=== PATIENT | female | born 1935 | race Two or more races ===

== ENCOUNTER → 2020-05-21 13:34 | Outpatient (BNVA) | payer MEDICARE, SELFPAY | PROVIDERS: Visit Provider Obstetrics & Gynecology | DX: R93.89 Abnormal findings on diagnostic imaging of other specified body structures (principal) | CPT/HCPCS: 99203 ==

== ENCOUNTER → 2020-08-17 14:30 | Outpatient (BNVA) | payer MEDICARE, SELFPAY | PROVIDERS: PCP Family Medicine; Visit Provider Family Medicine | DX: I48.0 Paroxysmal atrial fibrillation (principal); I82.91 Chronic embolism and thrombosis of unspecified vein; Z79.01 Long term (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; Z51.81 Encounter for therapeutic drug level monitoring; Z13.9 Encounter for screening, unspecified | CPT/HCPCS: 85610; 99211 ==

== ENCOUNTER → 2020-09-07 13:57 | Outpatient (BNVA) | payer MEDICARE, SELFPAY | PROVIDERS: PCP Family Medicine; Visit Provider Internal Medicine | DX: I48.0 Paroxysmal atrial fibrillation (principal); Z51.81 Encounter for therapeutic drug level monitoring; Z79.01 Long term (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; Z01.419 Encounter for gynecological examination (general) (routine) without abnormal findings | CPT/HCPCS: 85610; 99211 ==

== ENCOUNTER 2020-09-29 12:48 | Outpatient (REF) | payer MEDICARE, SELFPAY ==
--- NOTE | ~2020-09-29 | MM_ITS ---
EXAMINATION: BONE DENSITOMETRY CLINICAL INDICATION: Menopausal state. COMPARISON: Baseline BD dated 12/11/2012. TECHNIQUE: Using a [employer] DXA System (software version: 13.1) manufactured by [employer], dual-energy x-ray absorptiometry was performed of the lumbar spine and left hip. The images are of good technical quality. Summary results are attached. FINDINGS: AP SPINE L1-L4: Current: BMD 0.989 g/cm2, Z-score -0.8, T-score -1.6, osteopenia, 6.7% decrease from baseline (<5% change is not significant). Baseline: BMD 1.060 g/cm2. LEFT FEMUR, NECK: Current: BMD 0.820 g/cm2, Z-score 0.1, T-score -1.6, osteopenia. Baseline: BMD 0.935 g/cm2. LEFT FEMUR, TOTAL: Current: BMD 0.930 g/cm2, Z-score 0.8, T-score -0.6, normal, 10.0% decrease from baseline (<5% change is not significant). Baseline: BMD 1.033 g/cm2. IDENTIFIED RISK FACTORS: Rheumatoid arthritis. Early menopause, secondary osteoporosis. HISTORY OF FRACTURE: Shoulder/humerus. MEDICATIONS: Calcium supplements or multivitamin, vitamin D. MM/XR DEXA axial skeleton IMPRESSION: 1. DIAGNOSIS: Osteopenia based on the lowest T-score value of -1.6 in the femoral neck and lumbar spine applying World Health Organization criteria. 2. 10-YEAR FRACTURE RISK PREDICTION, FRAX: Major osteoporotic fracture (clinical spine, forearm, hip or shoulder) 9.6%. Hip fracture 2.6%. 3. Treatment Recommendations: NOF guidelines recommend consideration for treatment in postmenopausal women and men age 50 and older presenting with the following: -A hip or vertebral (clinical or morphometric) fracture. -T-score less than or equal to -2.5 at the femoral neck or spine after appropriate evaluation to exclude secondary causes. -Low bone mass at the hip or spine and a 10-year fracture probability by FRAX of greater than or equal to 3% for hip fracture or greater than or equal to 20% for major osteoporotic fracture based on the [place] adapted WHO algorithm. 4. Other Recommendations: All treatment decisions require clinical judgment and consideration of individual patient factors, including patient preferences, comorbidities, previous drug use, risk factors not captured in the FRAX model (e.g. frailty, falls, vitamin D deficiency, increased bone turnover, interval significant decline in bone density) and possible under or overestimation of fracture risk by FRAX. Additional medical evaluation for secondary cause of low bone mineral density may be appropriate. FUTURE SCAN RECOMMENDATION: People with diagnosed cases of osteoporosis or at high risk for fracture should have regular bone mineral density tests. For patients eligible for Medicare, routine testing is allowed once every 2 years. The testing frequency can be increased to one year for patients who have rapidly progressing disease, those who are receiving or discontinuing medical therapy to restore bone mass, or have additional risk factors.
== END 2020-09-29 12:49 | disposition home or self-care (01) ==
LOC: HO.MAMMO 12:48
PROVIDERS: PCP Family Medicine; Visit Provider Obstetrics & Gynecology
DX: M81.8 Other osteoporosis without current pathological fracture (principal); M06.9 Rheumatoid arthritis, unspecified; Z78.0 Asymptomatic menopausal state
CPT/HCPCS: 77080

== ENCOUNTER → 2020-10-14 14:24 | Outpatient (BNVA) | payer MEDICARE, SELFPAY | PROVIDERS: Visit Provider Obstetrics & Gynecology | DX: Z13.89 Encounter for screening for other disorder (principal) | CPT/HCPCS: Q3014 ==

== ENCOUNTER → 2020-10-29 13:51 | Outpatient (BNVA) | payer MEDICARE, SELFPAY | PROVIDERS: PCP Family Medicine; Visit Provider Nurse Practitioner Gerontology | DX: E11.65 Type 2 diabetes mellitus with hyperglycemia (principal); E11.42 Type 2 diabetes mellitus with diabetic polyneuropathy; Z79.4 Long term (current) use of insulin; E78.00 Pure hypercholesterolemia, unspecified; I10 Essential (primary) hypertension; E66.01 Morbid (severe) obesity due to excess calories; Z68.41 Body mass index [BMI] 40.0-44.9, adult | CPT/HCPCS: 82947; 99212 ==

== ENCOUNTER → 2020-11-19 11:04 | Outpatient (BNVA) | payer MEDICARE, SELFPAY | PROVIDERS: PCP Family Medicine; Visit Provider Internal Medicine | DX: I48.0 Paroxysmal atrial fibrillation (principal); I82.91 Chronic embolism and thrombosis of unspecified vein; Z79.01 Long term (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; Z51.81 Encounter for therapeutic drug level monitoring | CPT/HCPCS: 85610; 99211 ==

== ENCOUNTER → 2020-11-26 11:16 | Outpatient (BNVA) | payer MEDICARE, SELFPAY | PROVIDERS: PCP Family Medicine; Visit Provider Internal Medicine | DX: I48.0 Paroxysmal atrial fibrillation (principal); I82.91 Chronic embolism and thrombosis of unspecified vein; Z51.81 Encounter for therapeutic drug level monitoring; Z79.01 Long term (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 | CPT/HCPCS: 85610; 99211 ==

== ENCOUNTER → 2020-11-30 11:02 | Outpatient (BNVA) | payer MEDICARE, SELFPAY | PROVIDERS: PCP Family Medicine; Visit Provider Internal Medicine | DX: I48.0 Paroxysmal atrial fibrillation (principal); I82.91 Chronic embolism and thrombosis of unspecified vein; Z51.81 Encounter for therapeutic drug level monitoring; Z79.01 Long term (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 | CPT/HCPCS: 85610; 99211 ==

== ENCOUNTER → 2020-12-17 13:19 | Outpatient (BNVA) | payer MEDICARE, SELFPAY | PROVIDERS: PCP Family Medicine; Visit Provider Nurse Practitioner Gerontology | DX: E11.65 Type 2 diabetes mellitus with hyperglycemia (principal); E11.42 Type 2 diabetes mellitus with diabetic polyneuropathy; E66.01 Morbid (severe) obesity due to excess calories; Z68.41 Body mass index [BMI] 40.0-44.9, adult; E78.00 Pure hypercholesterolemia, unspecified; I10 Essential (primary) hypertension; Z79.4 Long term (current) use of insulin; Z71.3 Dietary counseling and surveillance | CPT/HCPCS: 82947; 99212 ==

== ENCOUNTER → 2020-12-31 13:26 | Outpatient (BNVA) | payer MEDICARE, SELFPAY | PROVIDERS: PCP Family Medicine; Visit Provider Nurse Practitioner Gerontology | DX: E11.42 Type 2 diabetes mellitus with diabetic polyneuropathy (principal); E11.649 Type 2 diabetes mellitus with hypoglycemia without coma; E78.00 Pure hypercholesterolemia, unspecified; E66.01 Morbid (severe) obesity due to excess calories; I10 Essential (primary) hypertension; Z79.4 Long term (current) use of insulin; Z68.41 Body mass index [BMI] 40.0-44.9, adult | CPT/HCPCS: 82947; 99212 ==

== ENCOUNTER 2021-01-02 18:19 | Emergency (ER) | payer MEDICARE, SELFPAY ==
[2021-01-02 18:27] VITALS: BP 174/60; PULSE 81; RESP 16; TEMP 36.7; O2SAT 93; BMI 38.2
[2021-01-02 19:07] LABS: Appearance Urine CLEAR; Color Urine YELLOW; Glucose Urine UA NEG (NEG); Leukocyte Esterase Urine NEG (NEG); Nitrite Urine NEG (NEG); PH 5.5 (5.0-8.0); Urine Blood NEG (NEG); Urine Ketones 5 MG/DL (NEG); Urine Protein NEG (NEG-TRACE)
[2021-01-02] MEDS: Lidocaine HCl 1 % MPF 5 ML VIAL SUBCUT (19:58)
[2021-01-02] MEDS: cephALEXin 500 MG CAPSULE PO (19:58)
--- NOTE | 2021-01-02 20:32 | ED.EXTPRO ---
HPI - Extremity Problem General Chief complaint: Extremity Problem Stated complaint: toe infection Time Seen by Provider: 01/02/21 19:18 Source: patient Mode of arrival: ambulatory History of Present Illness HPI Narrative: 85-year-old female with a past medical history of anxiety, CAD, DVT, diabetes, HTN, HLD, hypothyroid, oa, proximal AFib, urinary incontinence, presenting to the ED complaining of right great toe pain x3 days with swelling and erythema. Denies drainage from area, fevers, chills, known injury/trauma or falls Dysuria also reported in triage MD Complaint: extremity pain Related Data Home Medications Medication Instructions Recorded Confirmed alcohol swabs pad TOPICAL QID 05/21/20 12/31/20 atorvastatin 20 mg tablet 20 mg PO BEDTIME 05/21/20 12/31/20 benzonatate 100 mg capsule 100 mg PO Q8H PRN 05/21/20 12/31/20 blood sugar diagnostic #10 ea 05/21/20 12/31/20 cholecalciferol (vitamin D3) 50 50 mcg PO QAM 05/21/20 12/31/20 mcg (2,000 unit) tablet clotrimazole 1 % topical cream applic TOPICAL 05/21/20 12/31/20 docusate sodium 100 mg capsule 100 mg PO BID 05/21/20 12/31/20 fluticasone 500 mcg-salmeterol 50 INHALATION 05/21/20 12/31/20 mcg/dose blistr powdr for inhalation fluticasone propionate 50 2 spray INTRANASAL DAILY 05/21/20 12/31/20 mcg/actuation nasal spray,suspension furosemide 40 mg tablet 40 mg PO QAM 05/21/20 12/31/20 ipratropium 0.5 mg-albuterol 3 mg ml INHALATION 05/21/20 12/31/20 (2.5 mg base)/3 mL nebulization soln lancets #100 ea 05/21/20 12/31/20 levothyroxine 100 mcg tablet 100 mcg PO DAILY 05/21/20 12/31/20 multivitamin with iron 1 tab PO QAM 05/21/20 12/31/20 omeprazole 20 mg capsule,delayed 20 mg PO BID 05/21/20 12/31/20 release pen needle, diabetic 32 gauge x #50 ea 05/21/20 12/31/20 polyethylene glycol 3350 17 g PO 05/21/20 12/31/20 gram/dose oral powder sertraline 50 mg tablet 50 mg PO DAILY 05/21/20 12/31/20 warfarin 3 mg tablet mg PO 05/21/20 12/31/20 white petrolatum 42 % topical TOPICAL 05/21/20 12/31/20 ointment acetaminophen 500 mg tablet 500 mg PO tab 12/17/20 12/31/20 metoprolol tartrate 25 mg tablet 25 mg PO tab 12/17/20 12/31/20 solifenacin 10 mg tablet 5 mg PO DAILY tab 12/17/20 12/31/20 Previous Rx's Medication Instructions Recorded dulaglutide 1.5 mg/0.5 mL 1.5 mg SUBCUT QWEEK #2 ml 11/10/20 subcutaneous pen injector metformin 500 mg tablet,extended 1,000 mg PO BID #120 tab 11/21/20 release 24 hr insulin glargine 100 unit/mL (3 35 unit SUBCUT DAILY #15 ml 11/23/20 mL) subcutaneous pen insulin lispro 100 unit/mL 8 unit SUBCUT TID #15 ml 12/31/20 subcutaneous pen cephalexin 500 mg PO QID 7 Days #28 cap 01/02/21 Allergies Allergy/AdvReac Type Severity Reaction Status Date / Time acetaminophen [Tylenol] Allergy Intermediate rash Verified 01/02/21 18:31 aspirin [Aspirin] Allergy Unknown UNKN Verified 01/02/21 18:31 oxycodone [From PERCOCET] Allergy Unknown PALPITATION Verified 01/02/21 18:31 S From Robitussin Cough & Cold Allergy Intermediate hives Uncoded 01/02/21 18:31 Robitussin Cold Cough+ Chest Allergy Intermediate hives Uncoded 01/02/21 18:31 SEAFOOD Allergy Intermediate hives Uncoded 01/02/21 18:31 shellfish Allergy Intermediate hives Uncoded 01/02/21 18:31 Review of Systems Review of Systems: Constitutional: No Weight loss, No Fever, No Chills Gastrointestinal: No Nausea, No Vomiting, No Diarrhea, No Constipation, No Abdominal pain Genitourinary: + Dysuria Musculoskeletal: + joint pain, No Myalgias, + Joint Swelling Skin: + Skin Lesions, No rash Neuro: No Weakness, No Numbness, No Paresthesias Yes all other systems are reviewed and are negative [facility] Past Medical History Attestation statement: The following information was validated with the patient. Medical History Abnormal taste in mouth Anxiety disorder Coronary artery disease Deep vein thrombosis Diabetes mellitus with hyperglycemia Essential hypertension Hearing loss History of cerebrovascular accident Hyperlipemia Hypothyroidism Obesity due to excess calories Osteoarthritis Osteopenia Paroxysmal A-fib Senile cataract of left eye Stenosis of carotid artery Type 2 diabetes mellitus with diabetic polyneuropathy Urinary incontinence Surgical History History of bilateral tubal ligation Family History Family History Father Heart disease CVD (cardiovascular disease) Mother Diabetes Social History Social History Household Members: None Alcohol intake: never Advance Directives: No Advance Directives Information Provided: No Sexual orientation: Straight/Heterosexual Gender identity: female Physical Exam Vital Signs: Vital Signs: Last Vital Signs Temp 98.1 F 01/02/21 18:27 Pulse 81 01/02/21 18:27 Resp 16 01/02/21 18:27 BP 174/60 H 01/02/21 18:27 Pulse Ox 93 01/02/21 18:27 Body Mass Index 38.2 Const: General: cooperative, healthy appearing and no acute distress Orientation/consciousness: patient oriented x3 Limitations: no limitations HENMT: Head: Yes normal to inspection Ears: hearing grossly normal bilaterally General nose exam: Normal external nose present Face and sinus: Yes normal facial exam Eyes: General: appearance normal, both eyes and all related structures EOM: EOMs intact bilaterally Neck: Neck: Yes normal visual inspection Resp: Effort & Inspection: normal respiratory effort Cardio: Rate: regular rate Peripheral pulses: dorsalis pedis present GI: Inspection: Yes normal to inspection Skin: Other: + paronychia noted to right great toe with fluctuance and erythema Rashes: no rashes Neuro: General: patient oriented x3 Gait exam (Neuro): Normal gait present Extrem: General: Yes normal to inspection Course Course Course Narrative: UA negative > worrisome signs and symptoms and strict return precautions discussed. Patient is to follow up with Podiatry/PCP Procedures Abscess I/D Site: foot Side (if applicable): right Local Anesthetic: lidocaine 1% Amount of anesthesia used (mL): 4 Technique: incised with blade MDM - Extremity (Nontraumatic) MDM Narrative Medical decision making narrative: 85-year-old female with a past medical history of anxiety, CAD, DVT, diabetes, HTN, HLD, hypothyroid, oa, proximal AFib, urinary incontinence, presenting to the ED complaining of right great toe pain x3 days with swelling and erythema. On exam vital signs stable, NAD, well appearing, paronychia noted to right great toe. Paronychia drain after digital block performed with pus drainage. Patient given 1st dose of p.o. Keflex in the ED. Lab Data Labs: Lab Results 01/02/21 Range/Units 18:56 Urine Color YELLOW Urine Appearance CLEAR Urine pH 5.5 (5.0-8.0) Ur Specific Edwards 1.020 (1.005-1.025) Urine Protein NEG (NEG-TRACE) MG/DL Urine Glucose (UA) NEG (NEG) MG/DL Urine Ketones 5 (NEG) MG/DL Urine Blood NEG (NEG) Urine Nitrite NEG (NEG) Ur Leukocyte Esterase NEG (NEG) Discharge Plan Discharge Clinical Impression: Acute paronychia Patient Disposition: Home, Self-Care Instructions: Paronychia (ED) Additional Instructions: your urine was not infected. You have a paronychia which was drained today in the ED. Keflex as antibiotic, take as prescribed. do warm soaks at home it will help drain the pus. If area begins to look worse, redness or swelling progresses/worsens or you fever return to the ED otherwise follow up with her doctor buchanan orina no estaba infectada. Tiene dorothy paroniquia que se dren? hoy en el servicio de urgencias. Keflex sagrario antibi?kain, scotty seg?n lo prescrito. Haz ba?os calientes en casa, esto ayudar? a drenar el pus. Si el ?lisa comienza a verse peor, el enrojecimiento o la hinchaz?n progresa / empeora o si tiene fiebre, vuelva al servicio de urgencias; de lo contrario, consulte con buchanan m?dico. Prescriptions: New cephalexin 500 mg capsule 500 mg PO QID 7 Days Qty: 28 RF: 0 No Action Trulicity 1.5 mg/0.5 mL pen injector 1.5 mg subcut QWEEK Qty: 2 RF: 1 metformin 500 mg tablet extended release 24 hr 1,000 mg PO BID Qty: 120 RF: 1 insulin glargine [Lantus Solostar U-100 Insulin] 100 unit/mL (3 mL) insulin pen 35 unit subcut DAILY Qty: 15 RF: 0 (DME) pen needle, diabetic 32 gauge x 5/32 needle See Rx Instructions ea .ROUTE .MEDSUPPLY Qty: 50 RF: 0 cholecalciferol (vitamin D3) 50 mcg (2,000 unit) tablet 50 mcg PO QAM RF: 0 multivitamin with iron Tablet 1 tab PO QAM RF: 0 sertraline 50 mg tablet 50 mg PO DAILY RF: 0 fluticasone propionate 50 mcg/actuation spray,suspension 2 spray intranasal DAILY RF: 0 alcohol swabs Pads, Medicated topical QID RF: 0 omeprazole 20 mg capsule,delayed release(DR/EC) 20 mg PO BID RF: 0 fluticasone propion-salmeterol 500-50 mcg/dose blister with device inhalation RF: 0 levothyroxine 100 mcg tablet 100 mcg PO DAILY RF: 0 warfarin 3 mg tablet PO RF: 0 furosemide 40 mg tablet 40 mg PO QAM RF: 0 (DME) lancets Misc See Rx Instructions ea .ROUTE .MEDSUPPLY Qty: 100 RF: 0 (DME) OneTouch Ultra Blue Test Strip Strip See Rx Instructions ea Not Applicable BID Qty: 10 RF: 0 white petrolatum 42 % ointment topical RF: 0 atorvastatin 20 mg tablet 20 mg PO BEDTIME RF: 0 polyethylene glycol 3350 17 gram/dose powder PO RF: 0 docusate sodium 100 mg capsule 100 mg PO BID RF: 0 clotrimazole 1 % cream topical RF: 0 ipratropium-albuterol 0.5 mg-3 mg(2.5 mg base)/3 mL solution for nebulization inhalation RF: 0 benzonatate 100 mg capsule 100 mg PO Q8H PRN (Reason: cough) RF: 0 metoprolol tartrate 25 mg tablet 25 mg PO RF: 0 solifenacin 10 mg tablet 5 mg PO DAILY RF: 0 acetaminophen 500 mg tablet 500 mg PO RF: 0 insulin lispro [Humalog KwikPen Insulin] 100 unit/mL insulin pen 8 unit subcut TID Qty: 15 RF: 2 Referrals: Valeri Lerner DO [Primary Care Provider] - 2 days
--- NOTE | 2021-01-02 20:59 | PC.NURSE ---
pt right large toe cleaned and drained by gilles morales covered with dsd.
== END 2021-01-02 20:37 | disposition home or self-care (01) ==
PROVIDERS: Emergency Provider Emergency Medicine; PCP Family Medicine
DX: L03.031 Cellulitis of right toe (principal); I25.10 Atherosclerotic heart disease of native coronary artery without angina pectoris; I10 Essential (primary) hypertension; Z79.899 Other long term (current) drug therapy
CPT/HCPCS: 10060; 81003; 99284

== ENCOUNTER → 2021-01-21 14:46 | Outpatient (BNVA) | payer MEDICARE, SELFPAY | PROVIDERS: PCP Family Medicine; Visit Provider Internal Medicine | DX: I48.0 Paroxysmal atrial fibrillation (principal); I82.91 Chronic embolism and thrombosis of unspecified vein; Z51.81 Encounter for therapeutic drug level monitoring; Z79.01 Long term (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 | CPT/HCPCS: 85610; 99211 ==

== ENCOUNTER 2021-04-16 10:35 | Outpatient (REF) | payer MEDICARE, SELFPAY ==
[2021-04-16 11:20] LABS: Prothrombin Time 68.5 SEC (9.9-13.0)
[2021-04-16 11:26] LABS: INTERNATIONAL NORM RATIO 5.8 (0.9-1.1)
== END 2021-04-16 10:36 | disposition home or self-care (01) ==
LOC: HO.LAB 10:35
PROVIDERS: PCP Family Medicine; Visit Provider Internal Medicine
DX: I48.0 Paroxysmal atrial fibrillation (principal); Z51.81 Encounter for therapeutic drug level monitoring; Z79.01 Long term (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
CPT/HCPCS: 36415; 85610; 99212

== ENCOUNTER → 2021-04-19 13:35 | Outpatient (BNVA) | payer MEDICARE, SELFPAY | PROVIDERS: PCP Family Medicine; Visit Provider Internal Medicine | DX: I48.0 Paroxysmal atrial fibrillation (principal); Z51.81 Encounter for therapeutic drug level monitoring; Z79.01 Long term (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 | CPT/HCPCS: 85610; 99211 ==

== ENCOUNTER → 2021-05-05 13:42 | Outpatient (BNVA) | payer MEDICARE, SELFPAY | PROVIDERS: PCP Family Medicine; Visit Provider Internal Medicine | DX: I48.0 Paroxysmal atrial fibrillation (principal); Z51.81 Encounter for therapeutic drug level monitoring; Z79.01 Long term (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 | CPT/HCPCS: 85610; 99211 ==

== ENCOUNTER → 2021-05-11 13:29 | Outpatient (BNVA) | payer MEDICARE, SELFPAY | PROVIDERS: PCP Family Medicine; Visit Provider Internal Medicine | DX: I48.0 Paroxysmal atrial fibrillation (principal); Z51.81 Encounter for therapeutic drug level monitoring; Z79.01 Long term (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 | CPT/HCPCS: 85610; 99211 ==

== ENCOUNTER → 2021-05-14 14:01 | Outpatient (BNVA) | payer MEDICARE, SELFPAY | PROVIDERS: PCP Family Medicine; Visit Provider Internal Medicine | DX: I48.0 Paroxysmal atrial fibrillation (principal); Z51.81 Encounter for therapeutic drug level monitoring; Z79.01 Long term (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 | CPT/HCPCS: 85610; 99211 ==

== ENCOUNTER 2021-05-19 08:20 | Outpatient (REF) | payer MEDICARE, SELFPAY ==
[2021-05-19 10:03] LABS: Alanine Aminotransferase 17 U/L (0-31); Alkaline Phosphatase 108 U/L (39-117); Anion Gap 14 (12-20); Aspartate Amino Transferase 21 U/L (5-31); Bilirubin Total 0.8 mg/dL (0.0-1.0); Blood Urea Nitrogen 14 mg/dL (9-16); Calcium 9.9 mg/dL (8.4-10.2); Carbon Dioxide 30 mmol/L (22-29); Chloride 102 mmol/L (96-108); Cholesterol 139 mg/dL; Estimated Glomerular Filt Rate > 60; Glucose Fasting 184 mg/dL (60-99); HDL Cholesterol 41 mg/dL; LDL Cholesterol Calculated 59 mg/dl; Potassium 4.2 mmol/L (3.3-5.1); Sodium 142 mmol/L (135-145); Total Protein 7.2 g/dL (6.5-8.0); Triglycerides 196 mg/dL
[2021-05-19 10:45] LABS: Creatinine Urine 164.19 mg/dL; Microalbum/Creatinine Ratio Ur 40.8 ug/mg cr
== END 2021-05-19 08:21 | disposition home or self-care (01) ==
LOC: HO.LAB 08:20
PROVIDERS: PCP Family Medicine; Visit Provider Nurse Practitioner Gerontology
DX: E11.42 Type 2 diabetes mellitus with diabetic polyneuropathy (principal)
CPT/HCPCS: 36415; 80053; 80061; 82043; 82306

== ENCOUNTER 2021-05-20 01:14 | Emergency (ER) | payer MEDICARE, SELFPAY ==
--- NOTE | ~2021-05-20 | CT_ITS ---
EXAMINATION: NONCONTRAST HEAD CT NONCONTRAST CERVICAL SPINE CT INDICATION INFORMATION: Status post fall COMPARISON: 07/17/2019 TECHNIQUE: Separate noncontrast CT examinations of the head and cervical spine were performed. Coronal head CT images and coronal and sagittal cervical spine images were created at the technologist workstation. DLP: 1264 mGy-cm DOSE LOWERING TECHNIQUES: This CT examination was performed using dose optimization techniques as appropriate, variously including the following: - Automated exposure control - Adjustment of mA and/or kV according to patient size (this includes techniques or standardized protocols for targeted exams were dose is matched to indication/reason for exam; i.e. extremities or head) - Use of iterative reconstruction technique FINDINGS: Head: There is no evidence of acute intracranial hemorrhage or territorial infarction. No abnormal mass-effect or midline shift is seen. Britton to white matter differentiation is well preserved. No extra-axial fluid collections are identified. The ventricles are normal in size. Mild volume loss is noted. No acute fracture seen. There is a prominent posterior scalp hematoma towards the vertex. The mastoid air cells and visualized portions of the paranasal sinuses are well-aerated. Cervical spine: There is anatomic alignment of the vertebral bodies and posterior elements. There is degenerative change at the atlantodens articulation. Vertebral body heights are maintained. Mild disc space narrowing and endplate osteophyte formation in the lower cervical spine. No evidence of acute fracture. No prevertebral soft tissue swelling. Visualized portions of the lung apices are unremarkable. The thyroid gland is unremarkable. CT/CT cervical spine wo con IMPRESSION: 1. Head: No acute intracranial findings. Prominent posterior scalp hematoma towards the vertex. 2. Cervical spine: No acute findings identified.
[2021-05-20 01:17] VITALS: BP 150/72; PULSE 87; RESP 18; TEMP 36.6; O2SAT 96; BMI 34.1
--- NOTE | 2021-05-20 02:14 | ED.FALL ---
HPI - Fall General Chief Complaint: Fall Stated Complaint: Head pain s/p fall Time Seen by Provider: 05/20/21 02:11 Source: patient and family Mode of arrival: ambulatory Limitations: no limitations History of Present Illness HPI Narrative: Patient was trying to get CT of the lost balance and fell backwards hitting her head to the ground came with significant hematoma to the back of the head no loss of consciousness and no seizure patient not on any anticoagulation no other injuries Related Data Home Medications Medication Instructions Recorded Confirmed alcohol swabs pad TOPICAL QID 05/21/20 05/14/21 atorvastatin 20 mg tablet 20 mg PO BEDTIME 05/21/20 05/14/21 blood sugar diagnostic #10 ea 05/21/20 05/14/21 cholecalciferol (vitamin D3) 50 50 mcg PO QAM 05/21/20 05/14/21 mcg (2,000 unit) tablet clotrimazole 1 % topical cream applic TOPICAL 05/21/20 05/14/21 docusate sodium 100 mg capsule 100 mg PO BID 05/21/20 05/14/21 fluticasone 500 mcg-salmeterol 50 INHALATION 05/21/20 05/14/21 mcg/dose blistr powdr for inhalation fluticasone propionate 50 2 spray INTRANASAL DAILY 05/21/20 05/14/21 mcg/actuation nasal spray,suspension furosemide 40 mg tablet 40 mg PO QAM 05/21/20 05/14/21 ipratropium 0.5 mg-albuterol 3 mg ml INHALATION 05/21/20 05/14/21 (2.5 mg base)/3 mL nebulization jb mercedes #100 ea 05/21/20 05/14/21 levothyroxine 100 mcg tablet 100 mcg PO DAILY 05/21/20 05/14/21 multivitamin with iron 1 tab PO QAM 05/21/20 05/14/21 omeprazole 20 mg capsule,delayed 20 mg PO BID 05/21/20 05/14/21 release pen needle, diabetic 32 gauge x #50 ea 05/21/20 05/14/21 polyethylene glycol 3350 17 g PO 05/21/20 05/14/21 gram/dose oral powder sertraline 50 mg tablet 50 mg PO DAILY 05/21/20 05/14/21 warfarin 3 mg tablet mg PO 05/21/20 05/14/21 white petrolatum 42 % topical TOPICAL 05/21/20 05/11/21 ointment acetaminophen 500 mg tablet 500 mg PO tab 12/17/20 05/14/21 metoprolol tartrate 25 mg tablet 25 mg PO tab 12/17/20 05/14/21 clonazepam 0.5 mg tablet 0.5 mg PO BEDTIME 04/19/21 05/14/21 solifenacin 5 mg tablet 5 mg PO QAM 04/19/21 05/14/21 nebulizers (Sidestream) #1 ea 05/14/21 05/14/21 Previous Rx's Medication Instructions Recorded dulaglutide 1.5 mg/0.5 mL 1.5 mg SUBCUT QWEEK #2 ml 03/28/21 subcutaneous pen injector (Trulicity) metformin 500 mg tablet,extended 1,000 mg PO BID #120 tab 05/04/21 release 24 hr insulin glargine 100 unit/mL (3 35 unit SUBCUT DAILY #15 ml 05/10/21 mL) subcutaneous pen (Lantus Solostar U-100 Insulin) insulin lispro 100 unit/mL 8 unit SUBCUT TID #15 ml 05/10/21 subcutaneous pen (Humalog KwikPen (U-100) Insulin) Allergies Allergy/AdvReac Type Severity Reaction Status Date / Time acetaminophen [Tylenol] Allergy Intermediate rash Verified 05/14/21 14:31 aspirin [Aspirin] Allergy Mild Gastrointestinal Verified 05/14/21 14:31 Upset oxycodone [From PERCOCET] Allergy Unknown PALPITATION Verified 05/14/21 14:31 S From Robitussin Cough & Cold Allergy Intermediate hives Uncoded 05/14/21 14:31 Robitussin Cold Cough+ Chest Allergy Intermediate hives Uncoded 05/14/21 14:31 SEAFOOD Allergy Intermediate hives Uncoded 05/14/21 14:31 shellfish Allergy Intermediate hives Uncoded 05/14/21 14:31 Review of Systems Review of Systems: Yes all other systems are reviewed and are negative PMFSH Past Medical History Medical History Abnormal taste in mouth Anxiety disorder Coronary artery disease Deep vein thrombosis Diabetes mellitus with hyperglycemia Essential hypertension Hearing loss History of cerebrovascular accident Hyperlipemia Hypothyroidism Obesity due to excess calories Osteoarthritis Osteopenia Paroxysmal A-fib Senile cataract of left eye Stenosis of carotid artery Type 2 diabetes mellitus with diabetic polyneuropathy Urinary incontinence Surgical History History of bilateral tubal ligation Family History Family History Father Heart disease CVD (cardiovascular disease) Mother Diabetes Social History Social History Household Members: None Alcohol intake: never Advance Directives: No Advance Directives Information Provided: No Sexual orientation: Straight/Heterosexual Gender identity: Female Physical Exam Vital Signs: Vital Signs: Last Vital Signs Temp 97.8 F 05/20/21 03:26 Pulse 85 05/20/21 03:26 Resp 16 05/20/21 03:26 BP 128/55 L 05/20/21 03:26 Pulse Ox 99 05/20/21 03:26 Body Mass Index 34.1 Appearance: Alert. Oriented X3. No acute distress. Eyes: PERRLA, No Nystagmus HEENT: Pharynx normal. Oral Mucosa moist significant hematoma at the occipital area tympanic membrane intact Neck: Normal inspection. Neck supple. No cervical spine tenderness CVS: Normal heart rate and rhythm. Pulses normal. Respiratory: No respiratory distress. Equal air entry bilateral, no wheezing/rales/rhonchi Abdomen: Soft and nontender. Bowel sounds are present, no mass palpable, no CVA tenderness Skin: Skin warm and dry. Normal skin color. Normal skin turgor. Extremities: No lower extremity edema. No calf tenderness Neuro: Oriented X 3. No motor deficit. No sensory deficit.No cerebellar signs , cranial nerves II-XII intact MDM - Fall MDM Narrative Medical decision making narrative: Patient status post fall head CT and C-spine CT is negative will discharge patient home Discharge Plan Discharge Clinical Impression: Head injury Qualifiers: Encounter type: initial encounter Qualified Code(s): S09.90XA - Unspecified injury of head, initial encounter Patient Disposition: Home, Self-Care Instructions: Head Injury (ED) Additional Instructions: Apply ice Tylenol for pain Care and cautions as advised Prescriptions: No Action Trulicity 1.5 mg/0.5 mL pen injector 1.5 mg subcut QWEEK Qty: 2 RF: 6 metformin 500 mg tablet extended release 24 hr 1,000 mg PO BID Qty: 120 RF: 0 Lantus Solostar U-100 Insulin 100 unit/mL (3 mL) insulin pen 35 unit subcut DAILY Qty: 15 RF: 5 insulin lispro [Humalog KwikPen Insulin] 100 unit/mL insulin pen 8 unit subcut TID Qty: 15 RF: 5 (DME) pen needle, diabetic 32 gauge x 5/32 needle See Rx Instructions ea .ROUTE .MEDSUPPLY Qty: 50 RF: 0 cholecalciferol (vitamin D3) 50 mcg (2,000 unit) tablet 50 mcg PO QAM RF: 0 multivitamin with iron Tablet 1 tab PO QAM RF: 0 sertraline 50 mg tablet 50 mg PO DAILY RF: 0 fluticasone propionate 50 mcg/actuation spray,suspension 2 spray intranasal DAILY RF: 0 alcohol swabs Pads, Medicated topical QID RF: 0 omeprazole 20 mg capsule,delayed release(DR/EC) 20 mg PO BID RF: 0 fluticasone propion-salmeterol 500-50 mcg/dose blister with device inhalation RF: 0 levothyroxine 100 mcg tablet 100 mcg PO DAILY RF: 0 warfarin 3 mg tablet PO RF: 0 furosemide 40 mg tablet 40 mg PO QAM RF: 0 (DME) lancets Misc See Rx Instructions ea .ROUTE .MEDSUPPLY Qty: 100 RF: 0 (DME) OneTouch Ultra Blue Test Strip Strip See Rx Instructions ea Not Applicable BID Qty: 10 RF: 0 white petrolatum 42 % ointment topical RF: 0 atorvastatin 20 mg tablet 20 mg PO BEDTIME RF: 0 polyethylene glycol 3350 17 gram/dose powder PO RF: 0 docusate sodium 100 mg capsule 100 mg PO BID RF: 0 clotrimazole 1 % cream topical RF: 0 ipratropium-albuterol 0.5 mg-3 mg(2.5 mg base)/3 mL solution for nebulization inhalation RF: 0 metoprolol tartrate 25 mg tablet 25 mg PO RF: 0 acetaminophen 500 mg tablet 500 mg PO RF: 0 clonazepam 0.5 mg tablet 0.5 mg PO BEDTIME RF: 0 solifenacin 5 mg tablet 5 mg PO QAM RF: 0 (DME) Sidestream Misc See Rx Instructions ea .ROUTE DIRECTED Qty: 1 RF: 0
[2021-05-20 03:26] VITALS: BP 128/55; PULSE 85; RESP 16; TEMP 36.6; O2SAT 99
--- NOTE | 2021-05-20 03:28 | PC.NURSE ---
PATIENT WAS INCONTINENT OF URINE ,PATIENT WAS CLEAN UP MY MYSELF AND SULEMA JUNG
== END 2021-05-20 04:22 | disposition home or self-care (01) ==
PROVIDERS: Emergency Provider Internal Medicine; PCP Family Medicine
DX: S09.90XA Unspecified injury of head, initial encounter (principal); G44.309 Post-traumatic headache, unspecified, not intractable; M54.2 Cervicalgia; W01.0XXA Fall on same level from slipping, tripping and stumbling without subsequent striking against object, initial encounter; Y93.9 Activity, unspecified; Y92.9 Unspecified place or not applicable; Y99.9 Unspecified external cause status; Z79.899 Other long term (current) drug therapy
CPT/HCPCS: 70450; 72125; 99284

== ENCOUNTER → 2021-05-24 11:22 | Outpatient (BNVA) | payer MEDICARE, SELFPAY | PROVIDERS: PCP Family Medicine; Visit Provider Internal Medicine | DX: I48.0 Paroxysmal atrial fibrillation (principal); Z51.81 Encounter for therapeutic drug level monitoring; Z79.01 Long term (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 | CPT/HCPCS: 85610; 99211 ==

== ENCOUNTER → 2021-06-03 13:23 | Outpatient (BNVA) | payer MEDICARE, SELFPAY | PROVIDERS: PCP Family Medicine; Visit Provider Internal Medicine | DX: I48.0 Paroxysmal atrial fibrillation (principal); Z51.81 Encounter for therapeutic drug level monitoring; Z79.01 Long term (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 | CPT/HCPCS: 85610; 99211 ==

== ENCOUNTER → 2021-06-15 13:56 | Outpatient (BNVA) | payer MEDICARE, SELFPAY | PROVIDERS: PCP Family Medicine; Visit Provider Internal Medicine | DX: I48.0 Paroxysmal atrial fibrillation (principal); Z51.81 Encounter for therapeutic drug level monitoring; Z79.01 Long term (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 | CPT/HCPCS: 85610; 99211 ==

== ENCOUNTER → 2021-06-30 14:29 | Outpatient (BNVA) | payer MEDICARE, SELFPAY | PROVIDERS: PCP Family Medicine; Visit Provider Internal Medicine | DX: I48.0 Paroxysmal atrial fibrillation (principal); Z51.81 Encounter for therapeutic drug level monitoring; Z79.01 Long term (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 | CPT/HCPCS: 85610; 99211 ==

== ENCOUNTER 2021-07-20 10:24 | Outpatient (REF) | payer MEDICARE, SELFPAY ==
--- NOTE | ~2021-07-20 | XR_ITS ---
EXAMINATION: XR THORACIC SPINE CLINICAL INFORMATION: Lower back injury. COMPARISON: CTA chest dated 05/30/2019. TECHNIQUE: Three views of the thoracic spine. FINDINGS: Mild exaggeration of the thoracic kyphosis, unchanged. No acute fracture or subluxation. No loss of vertebral body height. Multilevel loss of intervertebral disc height with anterior endplate osteophytes, not significantly changed. No new lytic or blastic osseous lesion. The visualized lungs are clear. XR/XR thoracic spine 3V IMPRESSION: No acute osseous abnormality. Multilevel degenerative disc disease and mild exaggeration of the thoracic kyphosis appear unchanged.
== END 2021-07-20 10:25 | disposition home or self-care (01) ==
LOC: HO.XRAY 10:24
PROVIDERS: PCP Family Medicine; Visit Provider Emergency Medicine
DX: S39.92XD Unspecified injury of lower back, subsequent encounter (principal)
CPT/HCPCS: 72072

== ENCOUNTER 2021-08-05 20:55 | Emergency (ER) | payer MEDICARE, SELFPAY ==
[2021-08-05 21:46] VITALS: BP 109/48; PULSE 78; RESP 16; TEMP 37; O2SAT 92; BMI 42.4
[2021-08-06 01:18] LABS: Hematocrit 46.2 % (37.0-47.0); Hemoglobin 14.8 g/dl (12.0-16.0); Mean Corpuscular Hemoglobin 31.2 pg (27.0-33.0); Mean Corpuscular Volume 97.3 fL (80.0-98.0); Mean Platelet Volume 11.2 fL (9.4-12.3); Platelet Count 145 X10*3/uL (160-400); Red Blood Count 4.75 X10*6/uL (4.20-5.50); Red Cell Distribution Width 13.2 % (11.0-16.0); White Blood Count 9.7 X10*3/uL (4.8-10.8)
[2021-08-06 01:21] LABS: Appearance Urine CLEAR; Color Urine YELLOW; Glucose Urine UA NEG (NEG); Leukocyte Esterase Urine NEG (NEG); Nitrite Urine NEG (NEG); PH 5.5 (5.0-8.0); Specific Gravity - Urine >= 1.030 (1.005-1.025); Urine Blood NEG (NEG); Urine Ketones 5 MG/DL (NEG); Urine Protein TRACE MG/DL (NEG-TRACE)
[2021-08-06 01:28] LABS: Bacteria Urine TRACE /LPF; RBC Urine 0-2 /HPF (0); Squamous Epithelial Cell Urine 1+ /LPF; WBC Urine 0-2 /HPF (0-4)
[2021-08-06 01:36] LABS: Alanine Aminotransferase 18 U/L (0-31); Albumin Level 4.2 g/dL (3.5-5.0); Alkaline Phosphatase 85 U/L (39-117); Anion Gap 14 (12-20); Aspartate Amino Transferase 24 U/L (5-31); Bilirubin Total 0.6 mg/dL (0.0-1.0); Blood Urea Nitrogen 25 mg/dL (9-16); Calcium 9.8 mg/dL (8.4-10.2); Carbon Dioxide 30 mmol/L (22-29); Chloride 98 mmol/L (96-108); Creatinine Clr Calc Pharmacy 40.4; Estimated Glomerular Filt Rate 44; Glucose Random 141 mg/dL (60-115); Lipase 4 U/L (8-78); Sodium 138 mmol/L (135-145); Total Protein 7.8 g/dL (6.5-8.0)
== END 2021-08-06 05:12 | disposition left against medical advice (07) ==
PROVIDERS: Emergency Provider Emergency Medicine
DX: R10.9 Unspecified abdominal pain (principal); E11.9 Type 2 diabetes mellitus without complications; I10 Essential (primary) hypertension; Z79.4 Long term (current) use of insulin
CPT/HCPCS: 36415; 80053; 81001; 83690; 85027; 99282; 99283

== ENCOUNTER → 2021-09-29 10:15 | Outpatient (BNVA) | payer MEDICARE, SELFPAY | PROVIDERS: PCP Family Medicine; Visit Provider Obstetrics & Gynecology | DX: Z01.419 Encounter for gynecological examination (general) (routine) without abnormal findings (principal); I48.0 Paroxysmal atrial fibrillation; Z51.81 Encounter for therapeutic drug level monitoring; Z79.01 Long term (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 | CPT/HCPCS: 85610; 99211 ==

== ENCOUNTER → 2021-11-29 10:30 | Outpatient (BNVA) | payer MEDICARE, SELFPAY | PROVIDERS: PCP Family Medicine; Visit Provider Internal Medicine | DX: I48.0 Paroxysmal atrial fibrillation (principal); Z79.01 Long term (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; Z51.81 Encounter for therapeutic drug level monitoring | CPT/HCPCS: 85610; 99211 ==

== ENCOUNTER → 2021-12-15 09:07 | Outpatient (BNVA) | payer MEDICARE, SELFPAY | PROVIDERS: PCP Family Medicine; Visit Provider Nurse Practitioner Gerontology | DX: E11.42 Type 2 diabetes mellitus with diabetic polyneuropathy (principal); E11.649 Type 2 diabetes mellitus with hypoglycemia without coma; E78.00 Pure hypercholesterolemia, unspecified; E66.01 Morbid (severe) obesity due to excess calories; I10 Essential (primary) hypertension; Z79.4 Long term (current) use of insulin; Z68.41 Body mass index [BMI] 40.0-44.9, adult; I48.0 Paroxysmal atrial fibrillation; Z51.81 Encounter for therapeutic drug level monitoring; Z79.01 Long term (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 | CPT/HCPCS: 82947; 83036; 85610; 99211; Q3014 ==

== ENCOUNTER 2021-12-21 17:04 | Emergency (ER) | payer OTHER, SELFPAY ==
--- NOTE | ~2021-12-21 | XR_ITS ---
EXAMINATION: XR KNEE, RIGHT CLINICAL INFORMATION: Status post fall COMPARISON: None TECHNIQUE: Four views of the right knee. FINDINGS: Tricompartmental degenerative changes are present with narrowing of all compartments. Chondrocalcinosis is seen with calcification in both menisci, lateral greater than medial. No fractures are seen. No significant joint effusion is detected. XR/XR knee RT 4V IMPRESSION: Tricompartmental degenerative changes and chondrocalcinosis. No acute fracture.
[2021-12-21 17:21] VITALS: BP 134/60; PULSE 99; RESP 18; TEMP 37.1; O2SAT 98; BMI 41.9
--- NOTE | 2021-12-21 17:41 | ED_ITS ---
HPI - Fall General Chief Complaint: Fall Stated Complaint: R KNEE PAIN S/P [facility] PER EMS Time Seen by Provider: 12/21/21 17:22 Source: patient Mode of arrival: EMS Limitations: no limitations History of Present Illness HPI Narrative: Patient 86 years old with history of osteoarthritis uses walker to ambulate was getting up from the bed without any help lost balance fell right leg went under the dresser complaining of pain in the right knee and right shoulder. Patient does have chronic pain in the both areas and does have arthritis also patient fell yesterday for same reason. No head injury no loss of consciousness also patient complaining of frequency when urinate and chronic cough Related Data Home Medications Medication Instructions Recorded Confirmed alcohol swabs pad TOPICAL QID 05/21/20 12/15/21 atorvastatin 20 mg tablet 20 mg PO BEDTIME 05/21/20 12/15/21 blood sugar diagnostic #10 ea 05/21/20 12/15/21 cholecalciferol (vitamin D3) 50 50 mcg PO QAM 05/21/20 12/15/21 mcg (2,000 unit) tablet clotrimazole 1 % topical cream applic TOPICAL 05/21/20 12/15/21 docusate sodium 100 mg capsule 100 mg PO BID 05/21/20 12/15/21 fluticasone 500 mcg-salmeterol 50 INHALATION 05/21/20 12/15/21 mcg/dose blistr powdr for inhalation fluticasone propionate 50 2 spray INTRANASAL DAILY 05/21/20 12/15/21 mcg/actuation nasal spray,suspension furosemide 40 mg tablet 40 mg PO QAM 05/21/20 12/15/21 ipratropium 0.5 mg-albuterol 3 mg ml INHALATION 05/21/20 12/15/21 (2.5 mg base)/3 mL nebulization soln lancets #100 ea 05/21/20 12/15/21 levothyroxine 100 mcg tablet 100 mcg PO DAILY 05/21/20 12/15/21 multivitamin with iron 1 tab PO QAM 05/21/20 12/15/21 omeprazole 20 mg capsule,delayed 20 mg PO BID 05/21/20 12/15/21 release pen needle, diabetic 32 gauge x #50 ea 05/21/20 12/15/21 polyethylene glycol 3350 17 g PO 05/21/20 12/15/21 gram/dose oral powder sertraline 50 mg tablet 50 mg PO DAILY 05/21/20 12/15/21 warfarin 3 mg tablet mg PO 05/21/20 12/15/21 white petrolatum 42 % topical TOPICAL 05/21/20 12/15/21 ointment acetaminophen 500 mg tablet 500 mg PO tab 12/17/20 12/15/21 metoprolol tartrate 25 mg tablet 25 mg PO tab 12/17/20 12/15/21 clonazepam 0.5 mg tablet 0.5 mg PO BEDTIME 04/19/21 12/15/21 solifenacin 5 mg tablet 5 mg PO QAM 04/19/21 12/15/21 nebulizers (Sidestream) #1 ea 05/14/21 12/15/21 multivitamin-iron sulfate 15 1 tab PO QAM 12/15/21 12/15/21 mg-folic acid 400 mcg tablet (Tab-A-Judith Multivitamin w-iron) Previous Rx's Medication Instructions Recorded dulaglutide 1.5 mg/0.5 mL 1.5 mg (0.5 mL) SUBCUT QWEEK #2 ml 10/10/21 subcutaneous pen injector (Trulicity) insulin glargine 100 unit/mL (3 25 unit (0.25 mL) SUBCUT DAILY #15 12/15/21 mL) subcutaneous pen (Lantus ml Solostar U-100 Insulin) metformin 500 mg tablet,extended 500 mg PO BID #60 tab 12/15/21 release 24 hr cefuroxime axetil 500 mg tablet 500 mg PO BID 7 Days #14 tab 12/21/21 tobramycin 0.3 % eye drops 2 drp OPHTHALMIC (EYE) Q4H #5 ml 12/21/21 tramadol 50 mg tablet 50 mg PO Q6-8H PRN #20 tab 12/21/21 Allergies Allergy/AdvReac Type Severity Reaction Status Date / Time acetaminophen [Tylenol] Allergy Intermediate rash Verified 12/15/21 10:08 aspirin [Aspirin] Allergy Mild Gastrointestinal Verified 12/15/21 10:08 Upset oxycodone [From PERCOCET] Allergy Unknown PALPITATION Verified 12/15/21 10:08 S From Robitussin Cough & Cold Allergy Intermediate hives Uncoded 12/15/21 10:08 Robitussin Cold Cough+ Chest Allergy Intermediate hives Uncoded 12/15/21 10:08 SEAFOOD Allergy Intermediate hives Uncoded 12/15/21 10:08 shellfish Allergy Intermediate hives Uncoded 12/15/21 10:08 Review of Systems Review of Systems: Yes all other systems are reviewed and are negative [facility] Past Medical History Medical History Abnormal taste in mouth Anxiety disorder Coronary artery disease Deep vein thrombosis Diabetes mellitus with hyperglycemia Essential hypertension Hearing loss History of cerebrovascular accident Hyperlipemia Hypothyroidism Obesity due to excess calories Osteoarthritis Osteopenia Paroxysmal A-fib Senile cataract of left eye Stenosis of carotid artery Type 2 diabetes mellitus with diabetic polyneuropathy Urinary incontinence Surgical History History of bilateral tubal ligation Family History Family History Father Heart disease CVD (cardiovascular disease) Mother Diabetes Social History Social History Household Members: None Alcohol intake: never Patient Tobacco Use Status: Never used Tobacco Advance Directives: No Advance Directives Information Provided: No Sexual orientation: Straight/Heterosexual Gender identity: Female Physical Exam Vital Signs: Vital Signs: Last Vital Signs Temp 98.1 F 12/21/21 21:39 Pulse 80 12/21/21 21:39 Resp 20 12/21/21 21:39 BP 124/55 L 12/21/21 21:39 Pulse Ox 95 12/21/21 21:39 BMI result Body Mass Index 41.9 Appearance: Alert. Oriented X3. No acute distress. Obese Eyes: PERRLA, No Nystagmus ENT: Pharynx normal. Oral Mucosa moist Neck: Normal inspection. Neck supple. No midline tenderness CVS: Normal heart rate and rhythm. Pulses normal. Respiratory: No respiratory distress. Equal air entry bilateral, no wheezing/rales/rhonchi Abdomen: Soft and nontender. Bowel sounds are present, no mass palpable, no CVA tenderness Skin: Skin warm and dry. Normal skin color. Normal skin turgor. Extremities: No lower extremity edema. No calf tenderness diffuse tenderness right knee with no effusion chronic arthritic change right shoulder diffuse pain no deformity of bony tenderness Neuro: Oriented X 3. No motor deficit. MDM - Fall MDM Narrative Medical decision making narrative: Patient status post mechanical fall with UTI discharge patient home on Ceftin and tramadol for pain patient does have history of osteoarthritis Medical Records Attestation: I reviewed the patient's medical records. Lab Data Attestation: I reviewed the patient's lab results. Labs: Lab Results 12/21/21 12/21/21 12/21/21 Range/Units 18:08 18:56 19:25 POC Glucose 280 H (60-115) mg/dL Urine Color DK YELLOW Urine Appearance CLOUDY Urine pH 6.0 (5.0-8.0) Ur Specific [place] 1.020 (1.005-1.025) Urine Protein 2+ H (NEG-TRACE) MG/DL Urine Glucose (UA) NEG (NEG) MG/DL Urine Ketones 5 (NEG) MG/DL Urine Blood 2+ H (NEG) Urine Nitrite POS H (NEG) Ur Leukocyte Esterase 2+ H (NEG) Urine RBC 1-4 (0) /HPF Urine WBC 15-29 H (0-4) /HPF Ur Squamous Epith Cells 3+ /LPF Urine Bacteria 4+ /LPF Urine Mucus 1+ /LPF COVID-19 (MUSHTAQ) Negative (Negative) COVID-19 Clin Com See Note Discharge Plan Discharge Clinical Impression: Fall, UTI (urinary tract infection) Patient Disposition: Home, Self-Care Instructions: Urinary Tract Infection in Women (ED), Fall Prevention for Older Adults (ED), Conjunctivitis (ED) Additional Instructions: Drink plenty of fluids Take antibiotic as prescribed Use walker for ambulation Care and cautions to avoid falls put the tobramycin eye drops 2 drops 4-6 hours in both eyes till get better Prescriptions: New cefuroxime axetil 500 mg tablet 500 mg PO BID 7 Days Qty: 14 0RF tramadol 50 mg tablet 50 mg PO Q6-8H PRN (Reason: pain) Qty: 20 0RF tobramycin 0.3 % drops 2 drp ophthalmic (eye) Q4H Qty: 5 0RF No Action Trulicity 1.5 mg/0.5 mL pen injector 1.5 mg subcut QWEEK Qty: 2 6RF (DME) pen needle, diabetic 32 gauge x 5/32 needle See Rx Instructions ea .ROUTE .MEDSUPPLY Qty: 50 0RF Rx Instructions: As directed cholecalciferol (vitamin D3) 50 mcg (2,000 unit) tablet 50 mcg PO QAM 0RF multivitamin with iron Tablet 1 tab PO QAM 0RF sertraline 50 mg tablet 50 mg PO DAILY 0RF fluticasone propionate 50 mcg/actuation spray,suspension 2 spray intranasal DAILY 0RF alcohol swabs Pads, Medicated topical QID 0RF omeprazole 20 mg capsule,delayed release(DR/EC) 20 mg PO BID 0RF fluticasone propion-salmeterol 500-50 mcg/dose blister with device inhalation 0RF levothyroxine 100 mcg tablet 100 mcg PO DAILY 0RF warfarin 3 mg tablet PO 0RF Protocol: Dose Management Condition: Monday (Week One) Dose/Route: 3 mg Instruction: 1 x 3 mg tablet Condition: Monday Dose/Route: 4.5 mg Instruction: 1.5 x 3 mg tablets Condition: Monday Dose/Route: 3 mg Instruction: 1 x 3 mg tablet Condition: Monday Dose/Route: 3 mg Instruction: 1 x 3 mg tablet Condition: Dose/Route: 3 mg Instruction: 1 x 3 mg tablet Condition: Monday Dose/Route: 3 mg Instruction: 1 x 3 mg tablet Condition: Monday Dose/Route: 3 mg Instruction: 1 x 3 mg tablet Condition: Monday (Week Two) Dose/Route: 3 mg Instruction: 1 x 3 mg tablet Condition: Monday Dose/Route: 4.5 mg Instruction: 1.5 x 3 mg tablets Condition: Monday Dose/Route: 3 mg Instruction: 1 x 3 mg tablet Condition: Monday Dose/Route: 3 mg Instruction: 1 x 3 mg tablet Condition: Dose/Route: 3 mg Instruction: 1 x 3 mg tablet Condition: Monday Dose/Route: 3 mg Instruction: 1 x 3 mg tablet Condition: Monday Dose/Route: 3 mg Instruction: 1 x 3 mg tablet Protocol Text: Adjustment Start Date: Monday12/15/21 INR Value: 2.6 INR Date: 12/15/21 Recheck Date: 01/05/22 furosemide 40 mg tablet 40 mg PO QAM 0RF (DME) lancets Misc See Rx Instructions ea .ROUTE .MEDSUPPLY Qty: 100 0RF Rx Instructions: As directed (DME) OneTouch Ultra Blue Test Strip Strip See Rx Instructions ea Not Applicable BID Qty: 10 0RF Rx Instructions: As directed white petrolatum 42 % ointment topical 0RF atorvastatin 20 mg tablet 20 mg PO BEDTIME 0RF polyethylene glycol 3350 17 gram/dose powder PO 0RF docusate sodium 100 mg capsule 100 mg PO BID 0RF clotrimazole 1 % cream topical 0RF ipratropium-albuterol 0.5 mg-3 mg(2.5 mg base)/3 mL solution for nebulization inhalation 0RF metoprolol tartrate 25 mg tablet 25 mg PO 0RF acetaminophen 500 mg tablet 500 mg PO 0RF Tab-A-Judith Multivitamin w-iron 15 mg iron- 400 mcg tablet 1 tab PO QAM 0RF Lantus Solostar U-100 Insulin 100 unit/mL (3 mL) insulin pen 25 unit subcut DAILY Qty: 15 5RF metformin 500 mg tablet extended release 24 hr 500 mg PO BID Qty: 60 6RF clonazepam 0.5 mg tablet 0.5 mg PO BEDTIME 0RF solifenacin 5 mg tablet 5 mg PO QAM 0RF (DME) Sidestream Misc See Rx Instructions ea .ROUTE DIRECTED Qty: 1 0RF Rx Instructions: As directed Interventions: ED Discharge Assessment Last Done: 12/21/21 21:45 Discharge Date/Time: 12/21/21 22:23
[2021-12-21 18:28] LABS: COVID-19 Test Negative (Negative)
[2021-12-21 19:00] LABS: Glucose, Whole Blood 280 mg/dL (60-115)
[2021-12-21 19:32] LABS: Appearance Urine CLOUDY; Color Urine DK YELLOW; Glucose Urine UA NEG (NEG); Leukocyte Esterase Urine 2+ (NEG); Nitrite Urine POS (NEG); UACC Culture Trigger YES; Urine Blood 2+ (NEG); Urine Ketones 5 MG/DL (NEG); Urine Protein 2+ MG/DL (NEG-TRACE)
[2021-12-21 19:43] VITALS: BP 142/54; PULSE 93; RESP 18; O2SAT 89
[2021-12-21 19:46] VITALS: O2SAT 96
[2021-12-21 19:47] LABS: Bacteria Urine 4+ /LPF; Mucus Urine 1+ /LPF; Squamous Epithelial Cell Urine 3+ /LPF
[2021-12-21] MEDS: Tobramycin Sulfate 0.3% Sol Op 5 ML BTL 2 DROP EYE-BOTH (19:48)
--- NOTE | 2021-12-21 21:09 | MHC.CM.ED ---
CM met with patient and daughterCatarina, at the request of Dr. Aguirre. Daughter is concerned about BUILDING REPAIR MAINTENANCE SUPERVISOR hours and help for her mother at home. Catarina does not seem to know anything about her mother's care. Pt has 11 children. Pt son, Tee and Naren care for patient, with Naren staying overnight. Grandson, Isiah Morgan is the BUILDING REPAIR MAINTENANCE SUPERVISOR and cares for pt daily from 8-12 . Isiah cleans, bathes patient and helps patient with ADL's.GUSTAVO cooks daily for the patient. Pt son Naren, tells CM that he draws up the patient's insulin and the patient gives herself the injection. Both Naren and Tee feel they have enough help with family at home to care for this patient. Catarina Rincon is very animated in her speech and demeanor. Keeps telling CM she does not know what is going on with her mother, but also says she doesn't care for her. Naren states his sister is often like this, and they are caring for the patient. He will bring the patient home at discharge. CM and medical assistant instructor spoke with patient about the importance of her wearing and using her life alert in an emergency and if she fails. Pt acknowledges understanding. Pt will have nightly dose of insulin and is eating prior to discharge home. Dr. Aguirre aware of above conversations. CM contact card given to Catarina rincon. CM following for d/c needs.
[2021-12-21] MEDS: Insulin Lispro 100 UNIT/ML 3 ML VIAL 6 UNIT SUBCUT (21:38)
[2021-12-21 21:39] VITALS: BP 124/55; PULSE 80; RESP 20; TEMP 36.7; O2SAT 95
== END 2021-12-21 22:23 | disposition home or self-care (01) ==
PROVIDERS: Emergency Provider Internal Medicine
DX: S89.91XA Unspecified injury of right lower leg, initial encounter (principal); N39.0 Urinary tract infection, site not specified; W06.XXXA Fall from bed, initial encounter; Y93.9 Activity, unspecified; Y92.003 Bedroom of unspecified non-institutional (private) residence as the place of occurrence of the external cause; Y99.9 Unspecified external cause status; Z20.822 Contact with and (suspected) exposure to COVID-19; Z79.899 Other long term (current) drug therapy
CPT/HCPCS: 73564; 81001; 82947; 87086; 87088; 87186; 87635; 99283

== ENCOUNTER 2021-12-29 14:00 | Outpatient (REF) | payer OTHER, SELFPAY ==
--- NOTE | ~2021-12-29 | US_ITS ---
EXAMINATION: US EXTRACRANIAL CAROTID DUPLEX, BILATERAL CLINICAL INFORMATION: Follow-up of carotid artery stenosis COMPARISON: Carotid duplex on 01/22/2020 TECHNIQUE: Real-time ultrasound and Doppler techniques (integrating B-mode 2-D vascular images, Doppler spectral analysis and color-flow Doppler imaging) were utilized to interrogate the extracranial carotid arteries, the vertebral arteries and proximal subclavian arteries bilaterally. The degree of stenosis is determined by criteria similar to NASCET. FINDINGS: Right Side: 1. There is mild atherosclerotic plaque seen in the bifurcation/proximal ICA region. 2. The common carotid artery PSV proximally is 61 cm/s and distally 67 cm/s. 3. The proximal internal carotid artery velocities are 58 cm/s systolic and 12 cm/s diastolic. 4. The proximal external carotid artery PSV is 72 cm/s. 5. The vertebral artery shows antegrade flow. 6. The subclavian artery waveforms are normal. Left Side: 1. There is mild atherosclerotic plaque seen in the bifurcation/proximal ICA region. 2. The common carotid artery PSV proximally is 69 cm/s and distally 43 cm/s. 3. The proximal internal carotid artery is occluded. 4. The proximal external carotid artery PSV is 84 cm/s. 5. The vertebral artery shows antegrade flow. 6. The subclavian artery waveforms are normal. US/US carotid duplex BI IMPRESSION: 1. RIGHT: Minimal, non-hemodynamically significant stenosis of the proximal right internal carotid artery corresponding to a 0-49% stenosis by velocity criteria. 2. LEFT: The left internal carotid artery is occluded. 3. There is no change in the category severity of disease when compared to the previous study dated 01/22/2020.
== END 2021-12-29 14:01 | disposition home or self-care (01) ==
LOC: HO.US 14:00
PROVIDERS: Visit Provider Surgery Vascular Surgery
DX: I65.23 Occlusion and stenosis of bilateral carotid arteries (principal)
CPT/HCPCS: 93880

== ENCOUNTER → 2022-01-12 13:42 | Outpatient (BNVA) | payer OTHER, SELFPAY | PROVIDERS: PCP Family Medicine; Visit Provider Internal Medicine | DX: I48.0 Paroxysmal atrial fibrillation (principal); Z79.01 Long term (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; Z51.81 Encounter for therapeutic drug level monitoring | CPT/HCPCS: 85610; 99211 ==

== ENCOUNTER → 2022-01-13 13:52 | Outpatient (BNVA) | payer OTHER, SELFPAY | PROVIDERS: PCP Family Medicine; Visit Provider Nurse Practitioner Family | DX: I48.0 Paroxysmal atrial fibrillation (principal); I10 Essential (primary) hypertension; E78.5 Hyperlipidemia, unspecified; I65.29 Occlusion and stenosis of unspecified carotid artery; Z79.01 Long term (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; Z79.899 Other long term (current) drug therapy | CPT/HCPCS: 93005; 99212 ==

== ENCOUNTER → 2022-01-18 13:32 | Outpatient (BNVA) | payer OTHER, SELFPAY | PROVIDERS: PCP Family Medicine; Visit Provider Surgery Vascular Surgery | DX: I65.23 Occlusion and stenosis of bilateral carotid arteries (principal) | CPT/HCPCS: 99212 ==

== ENCOUNTER 2022-01-19 15:05 | Outpatient (REF) | payer OTHER, SELFPAY ==
--- NOTE | ~2022-01-19 | MR_ITS ---
EXAMINATION: MR BRAIN WITHOUT AND WITH CONTRAST CLINICAL INFORMATION: 86-year-old with history of left cavernous sinus mass for follow-up exam. COMPARISON: 03/24/2020 MRI. TECHNIQUE: Multiplanar, multisequence MRI of the brain was obtained before and after the intravenous administration of 10 mL Gadavist. Technical note: Some limitations related to motion artifact with image degradation. FINDINGS: BRAIN VOLUME: [id number] generalized diffuse brain parenchymal volume loss stable in appearance. STRUCTURAL: Partially empty sella unchanged. BRAIN AND MENINGES: DWI sequence demonstrates no restricted diffusion to suggest acute or subacute cerebral ischemia. Redemonstrated are scattered small zones of FLAIR/T2 signal hyperintensity within the subcortical and deeper white matter of both cerebral hemispheres without abnormal enhancement, similar to the previous exam likely reflecting small foci of chronic ischemic microangiopathy. No extra-axial fluid collections are identified. 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 Redemonstrated is the previously noted somewhat T2 hyperintense/T1 hypointense peripherally enhancing mass in the left cavernous sinus, which measures 2.7 cm maximum long axis in the axial plane by 1.4 cm maximum short axis in the axial plane with maximum long axis in the coronal plane of 2.5 cm, unchanged in appearance. There is associated absence of the normal flow void of the left ICA consistent with left carotid occlusion as previously noted. VENTRICLES AND SUBARACHNOID SPACES: There is [id number] ventriculomegaly involving the third and lateral ventricles without hydrocephalus similar to the previous exam. ORBITAL STRUCTURES: Bilateral lens extractions are noted. Otherwise, the visualized orbital structures are grossly unremarkable within the limitations of the study. VASCULAR: Normal signal voids are seen throughout the remainder of the visualized intracranial vessels. OSSEOUS STRUCTURES, SINUSES/MASTOIDS, EXTRACRANIAL SOFT TISSUES: Osseous marrow signal intensity appears grossly within normal limits. Minor mucosal thickening in the ethmoid complex is noted. MR/MR head/brain wo/w con IMPRESSION: 1. 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 A cystic schwannoma would be a possibility. Continued follow up recommended at a clinically appropriate interval. 2. 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 3. Chronically occluded left ICA again noted. 4. No acute intracranial process.
[2022-01-19 15:54] LABS: Hematocrit 39.2 % (37.0-47.0); Hemoglobin 12.5 g/dl (12.0-16.0); Mean Corpuscular HGB Conc 31.9 g/dl (31.0-35.0); Mean Corpuscular Volume 97.3 fL (80.0-98.0); Mean Platelet Volume 11.2 fL (9.4-12.3); Platelet Count 174 X10*3/uL (160-400); Red Blood Count 4.03 X10*6/uL (4.20-5.50); Red Cell Distribution Width 13.3 % (11.0-16.0); White Blood Count 8.2 X10*3/uL (4.8-10.8)
[2022-01-19 16:21] LABS: Estimated Average Glucose 174 mg/dL; Hemoglobin A1c % 7.7 %
[2022-01-19 16:24] LABS: Creatinine Urine 30.37 mg/dL; Microalbumin Urine < 5.0 mg/L
[2022-01-19 16:27] LABS: Alanine Aminotransferase 14 U/L (0-31); Albumin Level 3.8 g/dL (3.5-5.0); Alkaline Phosphatase 146 U/L (39-117); Anion Gap 11 (12-20); Aspartate Amino Transferase 18 U/L (5-31); Bilirubin Direct 0.2 mg/dL (0.0-0.5); Bilirubin Total 0.4 mg/dL (0.0-1.0); Blood Urea Nitrogen 16 mg/dL (9-16); Calcium 9.5 mg/dL (8.4-10.2); Carbon Dioxide 33 mmol/L (22-29); Chloride 102 mmol/L (96-108); Cholesterol 136 mg/dL; Estimated Glomerular Filt Rate 54; Glucose Random 138 mg/dL (60-115); HDL Cholesterol 39 mg/dL; LDL Cholesterol Calculated 57 mg/dl; Sodium 142 mmol/L (135-145); Triglycerides 200 mg/dL
[2022-01-19 16:49] LABS: Free T4 (Free Thyroxine) 1.24 ng/dL (0.71-1.85); Thyroid Stimulating Hormone 1.76 uIU/mL (0.32-4.0); Vitamin D 25-OH Total 48.9 ng/mL (>30)
[2022-01-20 05:35] LABS: HBS Num1 2.25 mIU/mL (0-7.99); HBsAGNum1 0.87 S/CO (0.00-0.99); Hepatitis B Surface Antigen Negative (Negative); ~Hepatitis B Surface Antibody NONREACTIVE (Nonreactive)
== END 2022-01-19 15:06 | disposition home or self-care (01) ==
LOC: HO.MRI 15:05
PROVIDERS: PCP Family Medicine; Visit Provider Family Medicine
DX: I48.0 Paroxysmal atrial fibrillation (principal); Z51.81 Encounter for therapeutic drug level monitoring; Z79.01 Long term (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; R09.89 Other specified symptoms and signs involving the circulatory and respiratory systems; E11.9 Type 2 diabetes mellitus without complications; E78.5 Hyperlipidemia, unspecified; I10 Essential (primary) hypertension; M54.50 Low back pain, unspecified
CPT/HCPCS: 36415; 70553; 80048; 80061; 80076; 82043; 82306; 83036; 84439; 84443; 85027; 85610; 86706; 87340; 99211; A9585

== ENCOUNTER → 2022-02-07 13:04 | Outpatient (BNVA) | payer OTHER, SELFPAY | PROVIDERS: PCP Family Medicine; Visit Provider Internal Medicine | DX: I48.0 Paroxysmal atrial fibrillation (principal); Z51.81 Encounter for therapeutic drug level monitoring; Z79.01 Long term (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 | CPT/HCPCS: 85610; 99211 ==

== ENCOUNTER → 2022-02-10 10:43 | Outpatient (BNVA) | payer OTHER, SELFPAY | PROVIDERS: PCP Family Medicine | DX: N39.41 Urge incontinence (principal) | CPT/HCPCS: 99202 ==

== ENCOUNTER → 2022-02-21 13:07 | Outpatient (BNVA) | payer OTHER, SELFPAY | PROVIDERS: PCP Family Medicine; Visit Provider Internal Medicine | DX: I48.0 Paroxysmal atrial fibrillation (principal); Z51.81 Encounter for therapeutic drug level monitoring; Z79.01 Long term (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 | CPT/HCPCS: 85610; 99211 ==

== ENCOUNTER → 2022-03-02 12:58 | Outpatient (BNVA) | payer OTHER, SELFPAY | PROVIDERS: PCP Family Medicine; Visit Provider Internal Medicine | DX: I48.0 Paroxysmal atrial fibrillation (principal); Z79.01 Long term (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; Z51.81 Encounter for therapeutic drug level monitoring | CPT/HCPCS: 85610; 99211 ==

== ENCOUNTER → 2022-04-07 10:38 | Outpatient (BNVA) | payer OTHER, SELFPAY | PROVIDERS: PCP Family Medicine; Visit Provider Internal Medicine | DX: I48.0 Paroxysmal atrial fibrillation (principal); Z79.01 Long term (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; Z51.81 Encounter for therapeutic drug level monitoring | CPT/HCPCS: 85610; 99211 ==

== ENCOUNTER → 2022-04-11 11:01 | Outpatient (BNVA) | payer OTHER, SELFPAY | PROVIDERS: PCP Family Medicine; Visit Provider Internal Medicine | DX: I48.0 Paroxysmal atrial fibrillation (principal); Z79.01 Long term (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; Z51.81 Encounter for therapeutic drug level monitoring | CPT/HCPCS: 85610; 99211 ==

== ENCOUNTER → 2022-04-29 14:25 | Outpatient (BNVA) | payer OTHER, SELFPAY | PROVIDERS: PCP Family Medicine; Visit Provider Internal Medicine | DX: I48.0 Paroxysmal atrial fibrillation (principal); Z51.81 Encounter for therapeutic drug level monitoring; Z79.01 Long term (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 | CPT/HCPCS: 85610; 99211 ==

== ENCOUNTER 2022-06-25 23:45 | Inpatient (IN) | payer OTHER, SELFPAY ==
--- NOTE | ~2022-06-25 | XR_ITS ---
EXAMINATION: XR CHEST CLINICAL INFORMATION: Weakness, shortness of breath. Rule out pneumonia. COMPARISON: 06/28/2019 TECHNIQUE: Frontal view of the chest was obtained. FINDINGS: Cardiac leads overlie the chest. The lungs are well expanded. Bronchial wall thickening noted. No dense consolidation. No edema or effusion. No pneumothorax. The cardiomediastinal silhouette is unchanged. No acute osseous abnormality. Chronic irregularity of both proximal humeri. XR/XR chest 1V IMPRESSION: No dense consolidation. Bronchial wall thickening can be seen with a small airways process such as asthma or atypical/viral infection.
--- NOTE | ~2022-06-25 | CT_ITS ---
EXAMINATION: NONCONTRAST HEAD CT NONCONTRAST CERVICAL SPINE CT INDICATION INFORMATION: Fall. Headache. COMPARISON: 05/20/2021 TECHNIQUE: Separate noncontrast CT examinations of the head and cervical spine were performed. Coronal and sagittal images were created for each examination at the technologist workstation. This CT examination was performed using dose optimization techniques as appropriate, variously including the following: *Automated exposure control *Adjustment of mA and/or kV according to patient size (this includes techniques or standardized protocols for targeted exams where dose is matched to indication/reason for exam; i.e. extremities or head) *Use of iterative reconstruction technique DLP: 1235 mGy-cm FINDINGS: Head: There is no evidence of acute intracranial hemorrhage or territorial infarction. No abnormal mass effect or midline shift is seen. Britton to white matter differentiation is well preserved. No extra-axial fluid collections are identified. No hydrocephalus. Proportional prominence of the ventricles and sulcal spaces is consistent with mild volume loss. Patchy periventricular and deep white matter hypoattenuation is consistent with mild small vessel ischemic changes. No acute osseous or soft tissue abnormality. The mastoid air cells and visualized portions of the paranasal sinuses are well aerated. Cervical spine: There is anatomic alignment of the vertebral bodies and posterior elements. The atlantoaxial and atlantooccipital articulations are intact. Vertebral body heights and intervertebral disc spaces are maintained. Small endplate osteophytes are seen throughout. No evidence of acute fracture. No prevertebral soft tissue swelling. Visualized portions of the lung apices are unremarkable. The thyroid gland is unremarkable. CT/CT cervical spine wo IV con IMPRESSION: 1. No acute intracranial finding. 2. No fracture or malalignment of the cervical spine. Mild degenerative changes.
--- NOTE | ~2022-06-25 | XR_ITS ---
EXAMINATION: XR SHOULDER, RIGHT CLINICAL INFORMATION: Fall. Right shoulder pain. COMPARISON: 10/23/2014. TECHNIQUE: Three views of the right shoulder. FINDINGS: Osteopenia. Chronic healed right humeral fracture. No acute fractures are seen. No dislocation. The glenohumeral joint is aligned. The acromioclavicular joint is intact. The visualized lung is clear. The visualized ribs are intact. XR/XR shoulder RT min 2V IMPRESSION: Chronic healed right humeral fracture. No acute fracture or malalignment.
--- NOTE | ~2022-06-25 | CT_ITS ---
EXAMINATION: CT ABDOMEN AND PELVIS WITH CONTRAST CLINICAL INFORMATION: Multiple falls. Diffuse abdominal pain COMPARISON: 04/02/2020 TECHNIQUE: Multidetector volumetric images were obtained from the superior aspect of the liver through the pubic symphysis following administration 85 mL of Omnipaque 350 intravenous contrast. Sagittal and coronal reformatted images were obtained on the technologist's workstation. Oral contrast: No This CT examination was performed using dose optimization techniques as appropriate, variously including the following: *Automated exposure control *Adjustment of mA and/or kV according to patient size (this includes techniques or standardized protocols for targeted exams where dose is matched to indication/reason for exam; i.e. extremities or head) *Use of iterative reconstruction technique DLP: 1065 mGy-cm FINDINGS: LUNG BASES: Right lower lobe consolidation. Bibasilar atelectasis. LIVER, GALLBLADDER, AND BILIARY TREE: The liver is normal in size, shape, and attenuation. No focal hepatic lesion or biliary ductal dilatation is present. Stone in the gallbladder neck. No wall thickening or adjacent inflammation. PANCREAS: Diffuse atrophy with no focal abnormality. SPLEEN: Unremarkable. ADRENAL GLANDS: Unremarkable. KIDNEYS AND URETERS: The kidneys are normal in size, shape, and attenuation. No hydronephrosis, hydroureter, or calculi seen. No perinephric stranding. Simple bilateral renal cysts. No specific follow-up recommended. BLADDER: Unremarkable. GASTROINTESTINAL TRACT: The stomach is unremarkable. Normal caliber small bowel. No obstruction. Normal appendix. No colonic wall thickening or inflammatory change. Diverticulosis which is greatest at the sigmoid colon. No diverticulitis. No free air or free fluid. ABDOMINAL WALL: No significant hernia is appreciated. LYMPH NODES: Normal. VASCULAR: Normal caliber aorta with mild atherosclerotic calcification. IVC filter. PELVIC VISCERA: The uterus and adnexa are unremarkable. OSSEOUS STRUCTURES: No acute or suspicious osseous abnormality. Degenerative changes throughout the spine. Degenerative changes of the hips. CT/CT abdomen pelvis w IV con IMPRESSION: 1. No acute findings in the abdomen or pelvis. No acute fractures. 2. Right lower lobe consolidation. This could be infectious or inflammatory. 3. Cholelithiasis. Fleischner guidelines were followed.
--- NOTE | 2022-06-25 23:58 | PC.NURSE ---
Pt. on environmental monitoring technician at this time. C-collar in place from EMS.
[2022-06-25 23:59] VITALS: BP 142/55; BP 180/90; PULSE 83; PULSE 85; RESP 19; TEMP 38; O2SAT 90; O2SAT 95; BMI 38.2
[2022-06-26] VITALS (12 sets, daily range): BP systolic 123–175; BP diastolic 53–112; PULSE 80–105; RESP 19–27; TEMP 36.8–38; O2SAT 91–97
--- NOTE | 2022-06-26 | ECG_ITS ---
Test Reason : FALL Blood Pressure : / mmHG Vent. Rate : 089 BPM Atrial Rate : 089 BPM P-R Int : 370 ms QRS Dur : 090 ms QT Int : 336 ms P-R-T Axes : 086 043 079 degrees QTc Int : 408 ms Sinus rhythm with 1st degree A-V block Nonspecific ST and T wave abnormality Abnormal ECG Nonspecific ST abnormality is new Referred By: Nicki Coronel Electronically Signed By:LUANN PACHECO MD
--- NOTE | 2022-06-26 00:07 | PC.NURSE ---
Pupils unequal on assessment - right pupil is appx. 3mm and reactive, left pupil is appx. 6mm and fixed. Notifying
--- NOTE | 2022-06-26 00:15 | PC.NURSE ---
Darion Parkinson MD aware. Will see pt. shortly and this RN is awaiting orders at this time
--- NOTE | 2022-06-26 01:04 | ED.FALL ---
HPI - Fall General Chief Complaint: Fall Stated Complaint: FALL Time Seen by Provider: 06/26/22 00:20 Source: family (Daughter) Mode of arrival: EMS History of Present Illness HPI Narrative: 86-year-old female who presents emergency department for evaluation of weakness and multiple falls. The patient fell at 13:30 yesterday. Apparently she was walking from her bedroom to her living room when she fell on a tile floor. She did hit her head. There was no loss of consciousness. The patient did tell her family that she felt dizzy prior to falling. She was on the floor for approximately 1 hour. The patient had a 2nd fall at around 17:00 hours yesterday. The patient was in the bathroom using the toilet. When she got up she lost her balance and struck her right shoulder on a wall but did not lose consciousness and did not hit her head. The daughter states that the patient had several episodes of urinary incontinence today which is unusual for her. The patient also is complaining of abdominal pain, right side greater than left for the past 1-2 days. According to the daughter the patient was well otherwise and had no fever, chills, rhinorrhea, cough, chest pain, shortness of breath, nausea, vomiting or diarrhea. Related Data Home Medications Medication Instructions Recorded Confirmed alcohol swabs pad topical QID 05/21/20 04/11/22 atorvastatin 20 mg tablet 20 mg PO BEDTIME 05/21/20 04/11/22 blood sugar diagnostic #10 ea 05/21/20 04/11/22 cholecalciferol (vitamin D3) 50 50 mcg PO QAM 05/21/20 04/11/22 mcg (2,000 unit) tablet clotrimazole 1 % topical cream applic topical 05/21/20 04/11/22 docusate sodium 100 mg capsule 100 mg PO BID 05/21/20 04/11/22 fluticasone 500 mcg-salmeterol 50 inhalation 05/21/20 04/11/22 mcg/dose blistr powdr for inhalation fluticasone propionate 50 2 spray intranasal DAILY 05/21/20 04/11/22 mcg/actuation nasal spray,suspension furosemide 40 mg tablet 40 mg PO QAM 05/21/20 04/11/22 ipratropium 0.5 mg-albuterol 3 mg ml inhalation 05/21/20 04/11/22 (2.5 mg base)/3 mL nebulization soln lancets #100 ea 05/21/20 04/11/22 levothyroxine 100 mcg tablet 100 mcg PO DAILY 05/21/20 04/11/22 omeprazole 20 mg capsule,delayed 20 mg PO BID 05/21/20 04/11/22 release pen needle, diabetic 32 gauge x #50 ea 05/21/20 04/11/22 polyethylene glycol 3350 17 g PO 05/21/20 04/11/22 gram/dose oral powder sertraline 50 mg tablet 50 mg PO DAILY 05/21/20 04/11/22 warfarin 3 mg tablet mg PO 05/21/20 04/29/22 white petrolatum 42 % topical topical 05/21/20 04/11/22 ointment metoprolol tartrate 25 mg tablet 25 mg PO 12/17/20 04/11/22 clonazepam 0.5 mg tablet 0.5 mg PO BEDTIME 04/19/21 04/11/22 nebulizers (Sidestream misc) #1 ea 05/14/21 04/11/22 multivitamin-iron sulfate 15 1 tab PO QAM 12/15/21 04/11/22 mg-folic acid 400 mcg tablet (Tab-A-Judith Multivitamin w-iron) solifenacin 5 mg tablet 5 mg PO QAM 04/11/22 04/11/22 Previous Rx's Medication Instructions Recorded insulin glargine 100 unit/mL (3 25 unit (0.25 mL) subcut DAILY #15 12/15/21 mL) subcutaneous pen (Lantus mL Solostar U-100 Insulin) metformin 500 mg tablet,extended 500 mg PO BID #60 tabs 12/15/21 release 24 hr tobramycin 0.3 % eye drops 2 drp ophthalmic (eye) Q4H #5 mL 12/21/21 tramadol 50 mg tablet 50 mg PO Q6-8H PRN pain #20 tabs 12/21/21 oxybutynin chloride 15 mg 15 mg PO DAILY #30 tabs 02/10/22 tablet,extended release 24 hr insulin lispro 100 unit/mL 8 unit (0.08 mL) subcut TID #15 mL 04/12/22 subcutaneous pen (Humalog KwikPen (U-100) Insulin) dulaglutide 1.5 mg/0.5 mL 1.5 mg (0.5 mL) subcut QWEEK #2 mL 04/18/22 subcutaneous pen injector (Trulicity) Allergies Allergy/AdvReac Type Severity Reaction Status Date / Time acetaminophen [Tylenol] Allergy Intermediate rash Verified 04/29/22 14:35 aspirin [Aspirin] Allergy Mild Gastrointestinal Verified 04/29/22 14:35 Upset oxycodone [From PERCOCET] Allergy Unknown PALPITATION Verified 04/29/22 14:35 S From Robitussin Cough & Cold Allergy Intermediate hives Uncoded 04/29/22 14:35 Robitussin Cold Cough+ Chest Allergy Intermediate hives Uncoded 04/29/22 14:35 SEAFOOD Allergy Intermediate hives Uncoded 04/29/22 14:35 shellfish Allergy Intermediate hives Uncoded 04/29/22 14:35 Review of Systems Review of Systems: Yes all other systems are reviewed and are negative PMFSH Past Medical History [facility] Narrative: Social history: The patient lives at home with her family. She denies tobacco, alcohol and drug use. Medical History Abnormal taste in mouth Anxiety disorder Coronary artery disease Deep vein thrombosis Diabetes mellitus with hyperglycemia Essential hypertension Hearing loss History of cerebrovascular accident Hyperlipemia Hypothyroidism Obesity due to excess calories Osteoarthritis Osteopenia Senile cataract of left eye Type 2 diabetes mellitus with diabetic polyneuropathy Urgency incontinence Urinary incontinence Urinary incontinence Surgical History History of bilateral tubal ligation Family History Family History Father Heart disease CVD (cardiovascular disease) Mother Diabetes Social History Social History Household Members: None Alcohol intake: never Patient Tobacco Use Status: Never used Tobacco Smoked in Last 30 Days: No Use of substances other than those prescribed or required for medical reasons: No Advance Directives: No Advance Directives Information Provided: No Sexual orientation: Straight/Heterosexual Gender identity: Female Physical Exam Vital Signs: Vital Signs: Last Vital Signs Temp 98.2 F 06/26/22 04:00 Pulse 85 06/26/22 04:00 Resp 19 06/26/22 00:05 BP 159/69 H 06/26/22 04:00 Pulse Ox 92 06/26/22 04:00 O2 Del Method 06/26/22 04:00 O2 Flow Rate 3 06/26/22 04:00 BMI result Body Mass Index 38.2 Const: General: cooperative and no acute distress Orientation/consciousness: oriented to person Limitations: no limitations HEENT: Head: Yes normal to inspection, Yes normocephalic and Yes atraumatic Ears: external ears normal General nose exam: Normal external nose present Face and sinus: Yes normal facial exam Mouth: Normal oral and palatal mucosa present Throat: Yes posterior oropharynx normal Eyes: General: appearance normal, both eyes and all related structures Pupils: Other pupil findings (Left pupillary surgery with lens, asymmetric pupils left greater than right) Neck: Neck: Yes normal visual inspection, Yes no lymphadenopathy, Yes trachea midline and Yes supple Chest: Chest palpation & inspection: normal inspection of the chest and normal palpation of entire chest wall Resp: Effort & Inspection: normal respiratory effort and able to speak in complete sentences Auscultation: clear to auscultation bilaterally Cardio: Rate: regular rate Rhythm: regular rhythm Heart sounds: S1 normal heart sound present, S2 normal heart sound present and no murmurs GI: Inspection: Yes normal to inspection Palpation (GI): Soft to palpation, nontender and no guarding Auscultation: normal bowel sounds : General: Yes no CVA tenderness Back/Spine/Pelvis: Back: no CVA tenderness Skin: General skin exam: no rashes or lesions noted Neuro: General: oriented to person Cranial nerves: Yes CN's II-XII intact bilaterally Cognition (Neuro): normal cognition Motor exam (neuro): 5/5 motor strength present throughout Extrem: General: Yes normal to inspection Psych: Appearance: grossly normal Speech and movement: Normal speech and movement present Affect: normal affect Attitude: cooperative Thought process: Normal thought process present Thought content: Normal thought content present Course Course Course Narrative: 86-year-old female who presented to the emergency department for evaluation of 2 falls occurred yesterday, abdominal pain right greater than left and urinary incontinence. The patient's physical examination was unremarkable. I did order laboratory evaluation, CT scan of the patient's head, neck and abdomen. Will obtain a chest x-ray urinalysis on the patient as well. 0340: Laboratory evaluation: Elevated WBC 37612. Elevated INR 2.2. Elevated BUN 19 with a normal creatinine of 1.0. Elevated glucose 290. 0442: Chest x-ray was unremarkable. CT scan of the head and cervical spine revealed no acute process. CT scan of the abdomen pelvis without IV contrast revealed no clear intra-abdominal process however the patient does have a right lower lobe consolidation consistent with pneumonia. Patient's lactic acid was 2. Blood cultures were ordered and the patient was treated with ceftriaxone 1 g IV and azithromycin 5 mg IV. I will discuss admission with the covering hospitalist. Medications Administered Generic Name Dose Route Start Last Admin Trade Name Freq PRN Reason Stop Dose Admin Azithromycin 500 mg/ Sodium 250 mls @ 125 mls/hr 06/26/22 03:38 06/26/22 04:21 Chloride IV 06/26/22 05:37 125 mls/hr ONCE ONE Administration Discontinued Medications Generic Name Dose Route Start Last Admin Trade Name Freq PRN Reason Stop Dose Admin Ceftriaxone Sodium 1 gm/ 50 mls @ 100 mls/hr 06/26/22 03:39 06/26/22 04:17 Sodium Chloride IV 06/26/22 04:08 100 mls/hr ONCE ONE Administration Iohexol 85 ml 06/26/22 02:36 06/26/22 02:37 Iohexol 350 Mg/Ml 100 Ml Infus..Btl IV 06/26/22 02:37 85 ml ONCE ONE Administration MDM - Fall Lab Data Result diagrams: 06/26/22 01:06 06/26/22 01:06 Labs: Lab Results 06/26/22 06/26/22 06/26/22 Range/Units 00:45 00:45 01:06 WBC 19.0 H (4.8-10.8) X10*3/uL RBC 4.62 (4.20-5.50) X10*6/uL Hgb 13.9 (12.0-16.0) g/dl Hct 42.2 (37.0-47.0) % MCV 91.3 (80.0-98.0) fL MCH 30.1 (27.0-33.0) pg MCHC 32.9 (31.0-35.0) g/dl RDW 13.3 (11.0-16.0) % Plt Count 162 (160-400) X10*3/uL MPV 10.9 (9.4-12.3) fL Immature Gran % (Auto) 0.8 H (0.0-0.4) % Neut % (Auto) 88.3 H (45-73) % Lymph % (Auto) 6.2 L (20-40) % [place] % (Auto) 4.4 (2-11) % Eos % (Auto) 0.1 (0-4) % Baso % (Auto) 0.2 (0-2) % Lymph # (Auto) 1.2 (1.2-4.9) X10*3/uL [place] # (Auto) 0.8 (0.1-1.2) X10*3/uL Eos # (Auto) 0.0 (0.0-0.4) X10*3/uL Baso # (Auto) 0.0 (0.0-0.2) X10*3/uL Abs Immat Gran (auto) 0.15 H (0.00-0.03) X10*3/uL Absolute Neuts (auto) 16.8 H (2.0-8.3) x10*3/uL Absolute Nucleated RBC 0.000 (0.0-0.012) X10*3/uL Nucleated RBC % (auto) 0.0 (0.0-0.2) /100WBC PT (10.0-13.1) SEC INR (0.9-1.1) APTT (26.0-36.4) SEC Sodium (135-145) mmol/L Potassium (3.3-5.1) mmol/L Chloride (96-108) mmol/L Carbon Dioxide (22-29) mmol/L Anion Gap (12-20) BUN (9-16) mg/dL Creatinine (0.5-1.4) mg/dL Estim Creat Clear Calc Estimated GFR Random Glucose (60-115) mg/dL Lactic Acid (0.5-2.0) mmol/L Calcium (8.4-10.2) mg/dL Total Bilirubin (0.0-1.0) mg/dL AST (5-31) U/L ALT (0-31) U/L Alkaline Phosphatase (39-117) U/L Total Protein (6.5-8.0) g/dL Albumin (3.5-5.0) g/dL Urine Color Urine Appearance Urine pH (5.0-9.0) Ur Specific [place] (1.005-1.025) Urine Protein (Neg-Trace) mg/dL Urine Glucose (UA) (Negative) mg/dL Urine Ketones (Negative) mg/dL Urine Blood (Negative) Urine Nitrite (Negative) Ur Leukocyte Esterase (Negative) Urine RBC (0-2) /HPF Urine WBC (0-5) /HPF Ur Squamous Epith Cells (0-2) /HPF Urine Bacteria (None Seen) Hyaline Casts (0-2) /LPF Ethyl Alcohol mg/dL COVID-19 (MUSHTAQ) Negative (Negative) COVID-19 Clin Com See Note Influenza Type A (DANIELLE) Negative (Negative) Influenza Type B (DANIELLE) Negative (Negative) Influenza A & B Note See Note 06/26/22 06/26/22 06/26/22 Range/Units 01:06 01:06 01:06 WBC (4.8-10.8) X10*3/uL RBC (4.20-5.50) X10*6/uL Hgb (12.0-16.0) g/dl Hct (37.0-47.0) % MCV (80.0-98.0) fL MCH (27.0-33.0) pg MCHC (31.0-35.0) g/dl RDW (11.0-16.0) % Plt Count (160-400) X10*3/uL MPV (9.4-12.3) fL Immature Gran % (Auto) (0.0-0.4) % Neut % (Auto) (45-73) % Lymph % (Auto) (20-40) % [place] % (Auto) (2-11) % Eos % (Auto) (0-4) % Baso % (Auto) (0-2) % Lymph # (Auto) (1.2-4.9) X10*3/uL [place] # (Auto) (0.1-1.2) X10*3/uL Eos # (Auto) (0.0-0.4) X10*3/uL Baso # (Auto) (0.0-0.2) X10*3/uL Abs Immat Gran (auto) (0.00-0.03) X10*3/uL Absolute Neuts (auto) (2.0-8.3) x10*3/uL Absolute Nucleated RBC (0.0-0.012) X10*3/uL Nucleated RBC % (auto) (0.0-0.2) /100WBC PT 26.7 H (10.0-13.1) SEC INR 2.2 H (0.9-1.1) APTT 52.2 H (26.0-36.4) SEC Sodium 136 (135-145) mmol/L Potassium 3.6 (3.3-5.1) mmol/L Chloride 95 L (96-108) mmol/L Carbon Dioxide 29 (22-29) mmol/L Anion Gap 16 (12-20) BUN 19 H (9-16) mg/dL Creatinine 1.05 (0.5-1.4) mg/dL Estim Creat Clear Calc 46.1 Estimated GFR 50 Random Glucose 290 H (60-115) mg/dL Lactic Acid (0.5-2.0) mmol/L Calcium 9.6 (8.4-10.2) mg/dL Total Bilirubin 1.0 (0.0-1.0) mg/dL AST 22 (5-31) U/L ALT 26 (0-31) U/L Alkaline Phosphatase 117 (39-117) U/L Total Protein 7.3 (6.5-8.0) g/dL Albumin 3.9 (3.5-5.0) g/dL Urine Color Urine Appearance Urine pH (5.0-9.0) Ur Specific [place] (1.005-1.025) Urine Protein (Neg-Trace) mg/dL Urine Glucose (UA) (Negative) mg/dL Urine Ketones (Negative) mg/dL Urine Blood (Negative) Urine Nitrite (Negative) Ur Leukocyte Esterase (Negative) Urine RBC (0-2) /HPF Urine WBC (0-5) /HPF Ur Squamous Epith Cells (0-2) /HPF Urine Bacteria (None Seen) Hyaline Casts (0-2) /LPF Ethyl Alcohol < 10 mg/dL COVID-19 (MUSHTAQ) (Negative) COVID-19 Clin Com Influenza Type A (DANIELLE) (Negative) Influenza Type B (DANIELLE) (Negative) Influenza A & B Note 06/26/22 06/26/22 Range/Units 01:21 04:16 WBC (4.8-10.8) X10*3/uL RBC (4.20-5.50) X10*6/uL Hgb (12.0-16.0) g/dl Hct (37.0-47.0) % MCV (80.0-98.0) fL MCH (27.0-33.0) pg MCHC (31.0-35.0) g/dl RDW (11.0-16.0) % Plt Count (160-400) X10*3/uL MPV (9.4-12.3) fL Immature Gran % (Auto) (0.0-0.4) % Neut % (Auto) (45-73) % Lymph % (Auto) (20-40) % [place] % (Auto) (2-11) % Eos % (Auto) (0-4) % Baso % (Auto) (0-2) % Lymph # (Auto) (1.2-4.9) X10*3/uL [place] # (Auto) (0.1-1.2) X10*3/uL Eos # (Auto) (0.0-0.4) X10*3/uL Baso # (Auto) (0.0-0.2) X10*3/uL Abs Immat Gran (auto) (0.00-0.03) X10*3/uL Absolute Neuts (auto) (2.0-8.3) x10*3/uL Absolute Nucleated RBC (0.0-0.012) X10*3/uL Nucleated RBC % (auto) (0.0-0.2) /100WBC PT (10.0-13.1) SEC INR (0.9-1.1) APTT (26.0-36.4) SEC Sodium (135-145) mmol/L Potassium (3.3-5.1) mmol/L Chloride (96-108) mmol/L Carbon Dioxide (22-29) mmol/L Anion Gap (12-20) BUN (9-16) mg/dL Creatinine (0.5-1.4) mg/dL Estim Creat Clear Calc Estimated GFR Random Glucose (60-115) mg/dL Lactic Acid 2.0 (0.5-2.0) mmol/L Calcium (8.4-10.2) mg/dL Total Bilirubin (0.0-1.0) mg/dL AST (5-31) U/L ALT (0-31) U/L Alkaline Phosphatase (39-117) U/L Total Protein (6.5-8.0) g/dL Albumin (3.5-5.0) g/dL Urine Color Yellow Urine Appearance Clear Urine pH 5.5 (5.0-9.0) Ur Specific [place] 1.025 (1.005-1.025) Urine Protein 100 (2+) H (Neg-Trace) mg/dL Urine Glucose (UA) >=1000 H (Negative) mg/dL Urine Ketones Trace (Negative) mg/dL Urine Blood Negative (Negative) Urine Nitrite Negative (Negative) Ur Leukocyte Esterase Trace H (Negative) Urine RBC 0-2 (0-2) /HPF Urine WBC 0-5 (0-5) /HPF Ur Squamous Epith Cells 0-2 (0-2) /HPF Urine Bacteria None Seen (None Seen) Hyaline Casts 0-2 (0-2) /LPF Ethyl Alcohol mg/dL COVID-19 (MUSHTAQ) (Negative) COVID-19 Clin Com Influenza Type A (DANIELLE) (Negative) Influenza Type B (DANIELLE) (Negative) Influenza A & B Note Discharge Plan Discharge Clinical Impression: Pneumonia, Weakness, Multiple falls Prescriptions: No Action insulin lispro [Humalog KwikPen Insulin] 100 unit/mL insulin pen 8 unit subcut TID Qty: 15 5RF Trulicity 1.5 mg/0.5 mL pen injector 1.5 mg subcut QWEEK Qty: 2 4RF tramadol 50 mg tablet 50 mg PO Q6-8H PRN (Reason: pain) Qty: 20 0RF tobramycin 0.3 % drops 2 drp ophthalmic (eye) Q4H Qty: 5 0RF (DME) pen needle, diabetic 32 gauge x 5/32 needle See Rx Instructions .ROUTE .MEDSUPPLY Qty: 50 Rx Instructions: As directed cholecalciferol (vitamin D3) 50 mcg (2,000 unit) tablet 50 mcg PO QAM sertraline 50 mg tablet 50 mg PO DAILY fluticasone propionate 50 mcg/actuation spray,suspension 2 spray intranasal DAILY alcohol swabs Pads, Medicated topical QID omeprazole 20 mg capsule,delayed release(DR/EC) 20 mg PO BID fluticasone propion-salmeterol 500-50 mcg/dose blister with device inhalation levothyroxine 100 mcg tablet 100 mcg PO DAILY warfarin 3 mg tablet PO Protocol: Dose Management Condition: Monday (Week One) Dose/Route: 3 mg Instruction: 1 x 3 mg tablet Condition: Monday Dose/Route: 4.5 mg Instruction: 1.5 x 3 mg tablets Condition: Monday Dose/Route: 3 mg Instruction: 1 x 3 mg tablet Condition: Monday Dose/Route: 3 mg Instruction: 1 x 3 mg tablet Condition: Dose/Route: 4.5 mg Instruction: 1.5 x 3 mg tablets Condition: Monday Dose/Route: 4.5 mg Instruction: 1.5 x 3 mg tablets Condition: Monday Dose/Route: 3 mg Instruction: 1 x 3 mg tablet Condition: Monday (Week Two) Dose/Route: 3 mg Instruction: 1 x 3 mg tablet Condition: Monday Dose/Route: 4.5 mg Instruction: 1.5 x 3 mg tablets Condition: Monday Dose/Route: 3 mg Instruction: 1 x 3 mg tablet Condition: Monday Dose/Route: 3 mg Instruction: 1 x 3 mg tablet Condition: Dose/Route: 4.5 mg Instruction: 1.5 x 3 mg tablets Condition: Monday Dose/Route: 3 mg Instruction: 1 x 3 mg tablet Condition: Monday Dose/Route: 3 mg Instruction: 1 x 3 mg tablet Protocol Text: Adjustment Start Date: Monday04/29/22 INR Value: 1.6 INR Date: 04/29/22 Recheck Date: 05/06/22 Additional Instructions: take 4.5mg today then cont reg dosing eat reds to raise inr, no greens for 2 days furosemide 40 mg tablet 40 mg PO QAM (DME) lancets Misc See Rx Instructions .ROUTE .MEDSUPPLY Qty: 100 Rx Instructions: As directed (DME) OneTouch Ultra Blue Test Strip Strip See Rx Instructions Not Applicable BID Qty: 10 Rx Instructions: As directed white petrolatum 42 % ointment topical atorvastatin 20 mg tablet 20 mg PO BEDTIME polyethylene glycol 3350 17 gram/dose powder PO docusate sodium 100 mg capsule 100 mg PO BID clotrimazole 1 % cream topical ipratropium-albuterol 0.5 mg-3 mg(2.5 mg base)/3 mL solution for nebulization inhalation metoprolol tartrate 25 mg tablet 25 mg PO Tab-A-Judith Multivitamin w-iron 15 mg iron- 400 mcg tablet 1 tab PO QAM Lantus Solostar U-100 Insulin 100 unit/mL (3 mL) insulin pen 25 unit subcut DAILY Qty: 15 5RF metformin 500 mg tablet extended release 24 hr 500 mg PO BID Qty: 60 6RF clonazepam 0.5 mg tablet 0.5 mg PO BEDTIME (DME) Sidestream Misc See Rx Instructions .ROUTE DIRECTED Qty: 1 Rx Instructions: As directed solifenacin 5 mg tablet 5 mg PO QAM oxybutynin chloride 15 mg tablet extended release 24 hr 15 mg PO DAILY Qty: 30 0RF
[2022-06-26 01:11] LABS: MANUAL DIFF FLAG NO
[2022-06-26 01:17] LABS: Basophils Percent Auto 0.2 % (0-2); Eosinophils Percent Auto 0.1 % (0-4); Hematocrit 42.2 % (37.0-47.0); Hemoglobin 13.9 g/dl (12.0-16.0); Imm Gran Abs Auto 0.15 X10*3/uL (0.00-0.03); Imm Gran Pct Auto 0.8 % (0.0-0.4); Lymphocytes Absolute Auto 1.2 X10*3/uL (1.2-4.9); Lymphocytes Percent Auto 6.2 % (20-40); Mean Corpuscular HGB Conc 32.9 g/dl (31.0-35.0); Mean Corpuscular Hemoglobin 30.1 pg (27.0-33.0); Mean Corpuscular Volume 91.3 fL (80.0-98.0); Mean Platelet Volume 10.9 fL (9.4-12.3); Monocytes Absolute Auto 0.8 X10*3/uL (0.1-1.2); Monocytes Percent Auto 4.4 % (2-11); Neutrophils Absolute Auto 16.8 x10*3/uL (2.0-8.3); Neutrophils Percent Auto 88.3 % (45-73); Platelet Count 162 X10*3/uL (160-400); Red Blood Count 4.62 X10*6/uL (4.20-5.50); Red Cell Distribution Width 13.3 % (11.0-16.0)
[2022-06-26 01:22] LABS: INTERNATIONAL NORM RATIO 2.2 (0.9-1.1); Prothrombin Time 26.7 SEC (10.0-13.1)
[2022-06-26 01:26] LABS: Partial Thromboplastin Time 52.2 SEC (26.0-36.4)
[2022-06-26 01:28] LABS: Ethanol < 10 mg/dL
[2022-06-26 01:29] LABS: COVID-19 Test Negative (Negative); IDNOW Serial# 16C4AD1C; IDNOW Serial# BCCEAD1C; Influenza A Negative (Negative); Influenza B2 Negative (Negative)
[2022-06-26 01:31] LABS: Appearance Urine Clear; Color Urine Yellow; Glucose Urine UA >=1000 mg/dL (Negative); Leukocyte Esterase Urine Trace (Negative); Nitrite Urine Negative (Negative); PH 5.5 (5.0-9.0); Specific Gravity - Urine 1.025 (1.005-1.025); UMIC TRIGGER UACC YES; Urine Blood Negative (Negative); Urine Ketones Trace mg/dL (Negative); Urine Protein 100 (2+) mg/dL (Neg-Trace)
[2022-06-26 01:31] LABS: Alanine Aminotransferase 26 U/L (0-31); Albumin Level 3.9 g/dL (3.5-5.0); Alkaline Phosphatase 117 U/L (39-117); Anion Gap 16 (12-20); Aspartate Amino Transferase 22 U/L (5-31); Blood Urea Nitrogen 19 mg/dL (9-16); Calcium 9.6 mg/dL (8.4-10.2); Carbon Dioxide 29 mmol/L (22-29); Chloride 95 mmol/L (96-108); Creatinine Clr Calc Pharmacy 46.1; Estimated Glomerular Filt Rate 50; Glucose Random 290 mg/dL (60-115); Potassium 3.6 mmol/L (3.3-5.1); Sodium 136 mmol/L (135-145); Total Protein 7.3 g/dL (6.5-8.0)
[2022-06-26 01:36] LABS: Bacteria Urine None Seen (None Seen); Hyaline Casts Urine 0-2 /LPF (0-2); RBC Urine 0-2 /HPF (0-2); Squamous Epithelial Cell Urine 0-2 /HPF (0-2); WBC Urine 0-5 /HPF (0-5)
[2022-06-26] MEDS: iohexoL 350 MG/ML 100 ML INFUS..BTL 85 ML IV (02:37)
--- NOTE | 2022-06-26 04:16 | PC.NURSE ---
Blood cultures collected and sent as ordered. Starting IV antibiotics now.
[2022-06-26] MEDS: cefTRIAXone sodium 1 GM in 0.9 % Sodium Chloride 50 ML IV (04:17)
[2022-06-26] MEDS: Azithromycin 500 MG in 0.9 % Sodium Chloride 250 ML 125 MG IV (04:21)
--- NOTE | 2022-06-26 05:40 | PM.IMHP ---
History of Present Illness Date of Service: 06/26/22 Chief Complaint: generalized weakness This is a 86-year-old female with pertinent history of insulin-dependent diabetes mellitus, essential hypertension, anxiety disorder, history of DVT on Coumadin, hypothyroidism, urinary incontinence was brought to the emergency department by her daughter for evaluation of generalized weakness. As per the daughter, patient has had a cough for the last 1 week. Also has had intermittent fevers and chills. Patient with poor appetite and generalized weakness for the last 3 days. Patient also has had 2 falls on the day of presentation. Patient was walking from bedroom to her living room apparently, when she fell on the floor hitting her head. No loss of consciousness. Patient did say that she felt weak and dizzy prior to the fall. No rhythmic jerking movement of extremities, no tongue bite. Patient had a 2nd fall in the evening while she was in her bathroom and she hit her right shoulder. Patient has had no complaints at this time and denies shortness of breath, chest pain, palpitations, abdominal pain, changes in bowel habits. In the emergency department, patient requiring 3 L supplemental oxygen. Imaging was concerning for right-sided consolidation. Review of Systems Constitutional: Constitutional: Reports fever(s), Reports lethargy, Reports poor appetite and Reports weakness Cardiovascular: Cardiovascular: Reports no additional cardiovascular complaints Respiratory: Respiratory: Reports cough Gastrointestinal: Gastrointestinal: Reports no additional gastrointestinal complaints Neurologic: Reports weakness PMFSH Medical History Abnormal taste in mouth Anxiety disorder Coronary artery disease Deep vein thrombosis Diabetes mellitus with hyperglycemia Essential hypertension Hearing loss History of cerebrovascular accident Hyperlipemia Hypothyroidism Obesity due to excess calories Osteoarthritis Osteopenia Senile cataract of left eye Type 2 diabetes mellitus with diabetic polyneuropathy Urgency incontinence Urinary incontinence Urinary incontinence Family History Father Heart disease CVD (cardiovascular disease) Mother Diabetes Surgical History History of bilateral tubal ligation Social History Household Members: None Alcohol intake: never Patient Tobacco Use Status: Never used Tobacco Smoked in Last 30 Days: No Use of substances other than those prescribed or required for medical reasons: No Advance Directives: No Advance Directives Information Provided: No Sexual orientation: Straight/Heterosexual Gender identity: Female Meds Allergies Allergy/AdvReac Type Severity Reaction Status Date / Time acetaminophen [Tylenol] Allergy Intermediate rash Verified 04/29/22 14:35 aspirin [Aspirin] Allergy Mild Gastrointestinal Verified 04/29/22 14:35 Upset oxycodone [From PERCOCET] Allergy Unknown PALPITATION Verified 04/29/22 14:35 S From Robitussin Cough & Cold Allergy Intermediate hives Uncoded 04/29/22 14:35 Robitussin Cold Cough+ Chest Allergy Intermediate hives Uncoded 04/29/22 14:35 SEAFOOD Allergy Intermediate hives Uncoded 04/29/22 14:35 shellfish Allergy Intermediate hives Uncoded 04/29/22 14:35 Active Medications: Current Medications Acetaminophen (Acetaminophen 325 Mg Tablet) 650 mg PO Q6H PRN PRN Reason: Pain, Mild (Pain Scale 1-3) Dextrose (Dextrose 50 % 25 Gm/50 Ml Syringe) 25 gm IVPUSH Q15M PRN; Protocol PRN Reason: per Hypoglycemia Standing Ord. Glucose (Glucose Gel 15 Gm Gel..Gram.) 15 gm PO Q15M PRN; Protocol PRN Reason: per Hypoglycemia Standing Ord. Azithromycin 500 mg/ Sodium (Chloride) 250 mls @ 125 mls/hr IV DAILY [facility] Ceftriaxone Sodium 1 gm/ (Sodium Chloride) 50 mls @ 100 mls/hr IV DAILY [facility] Insulin Glargine (Insulin Glargine,Hum.Rec.Anlog 100 Unit/Ml 10 Ml Vial) 20 unit SUBCUT DAILY [facility] Insulin Human Lispro (Insulin Lispro 100 Unit/Ml 3 Ml Vial) 0 unit SUBCUT QIDACHS [facility]; Protocol Melatonin (Melatonin 3 Mg Tablet) 6 mg PO BEDTIME PRN PRN Reason: Insomnia Ondansetron HCl (Ondansetron Hcl 4 Mg/2 Ml Vial) 4 mg IVPUSH Q8H PRN PRN Reason: Nausea and Vomiting Pharmacy Consult (Consult Rx Perform Med Rec) 1 each MISCELLANE ONCE PRN PRN Reason: Consult order Sodium Chloride (0.9 % Sodium Chloride Flush 3 Ml Syringe) 3 ml IVFLUSH QSHIFT [facility] Home Medications Medication Instructions Recorded Confirmed Last Taken Type alcohol swabs pad topical QID 05/21/20 04/11/22 Unknown History atorvastatin 20 mg tablet 20 mg PO BEDTIME 05/21/20 04/11/22 Unknown History blood sugar diagnostic #10 ea 05/21/20 04/11/22 Unknown History cholecalciferol (vitamin D3) 50 50 mcg PO QAM 05/21/20 04/11/22 Unknown History mcg (2,000 unit) tablet clotrimazole 1 % topical cream applic topical 05/21/20 04/11/22 Unknown History docusate sodium 100 mg capsule 100 mg PO BID 05/21/20 04/11/22 Unknown History fluticasone 500 mcg-salmeterol 50 inhalation 05/21/20 04/11/22 Unknown History mcg/dose blistr powdr for inhalation fluticasone propionate 50 2 spray intranasal DAILY 05/21/20 04/11/22 Unknown History mcg/actuation nasal spray,suspension furosemide 40 mg tablet 40 mg PO QAM 05/21/20 04/11/22 Unknown History ipratropium 0.5 mg-albuterol 3 mg ml inhalation 05/21/20 04/11/22 Unknown History (2.5 mg base)/3 mL nebulization soln lancets #100 ea 05/21/20 04/11/22 Unknown History levothyroxine 100 mcg tablet 100 mcg PO DAILY 05/21/20 04/11/22 Unknown History omeprazole 20 mg capsule,delayed 20 mg PO BID 05/21/20 04/11/22 Unknown History release pen needle, diabetic 32 gauge x #50 ea 05/21/20 04/11/22 Unknown History polyethylene glycol 3350 17 g PO 05/21/20 04/11/22 Unknown History gram/dose oral powder sertraline 50 mg tablet 50 mg PO DAILY 05/21/20 04/11/22 Unknown History warfarin 3 mg tablet mg PO 05/21/20 04/29/22 Unknown History white petrolatum 42 % topical topical 05/21/20 04/11/22 Unknown History ointment metoprolol tartrate 25 mg tablet 25 mg PO 12/17/20 04/11/22 Unknown History clonazepam 0.5 mg tablet 0.5 mg PO BEDTIME 04/19/21 04/11/22 Unknown History nebulizers (Sidestream misc) #1 ea 05/14/21 04/11/22 Unknown History multivitamin-iron sulfate 15 1 tab PO QAM 12/15/21 04/11/22 Unknown History mg-folic acid 400 mcg tablet (Tab-A-Judith Multivitamin w-iron) solifenacin 5 mg tablet 5 mg PO QAM 04/11/22 04/11/22 Unknown History Physical Exam Vital Signs and Narrative: Vital Signs: Last Vital Signs Temp 98.2 F 06/26/22 04:00 Pulse 85 06/26/22 04:00 Resp 19 06/26/22 00:05 BP 159/69 H 06/26/22 04:00 Pulse Ox 92 06/26/22 04:00 O2 Del Method 06/26/22 04:00 O2 Flow Rate 3 06/26/22 04:00 BMI result Body Mass Index 38.2 Elderly male lying in bed in no distress on supplemental oxygen Neck supple, no JVD Regular rate and rhythm, S1-S2 heard Right-sided crackles Abdomen soft nontender, no guarding, no rigidity Patient is awake and oriented x3 ; no focal motor deficits Psych: Normal mood No pedal edema Results Labs CBC and Chem 7: 06/26/22 01:06 06/26/22 01:06 Labs: Laboratory Results - last 24 hr 06/26/22 06/26/22 06/26/22 00:45 00:45 01:06 MCV 91.3 MCH 30.1 MCHC 32.9 RDW 13.3 Plt Count 162 MPV 10.9 Immature Gran % (Auto) 0.8 H Neut % (Auto) 88.3 H Lymph % (Auto) 6.2 L [place] % (Auto) 4.4 Eos % (Auto) 0.1 Baso % (Auto) 0.2 Lymph # (Auto) 1.2 [place] # (Auto) 0.8 Eos # (Auto) 0.0 Baso # (Auto) 0.0 Abs Immat Gran (auto) 0.15 H Absolute Neuts (auto) 16.8 H Absolute Nucleated RBC 0.000 Nucleated RBC % (auto) 0.0 PT INR APTT Anion Gap Estim Creat Clear Calc Estimated GFR Random Glucose Lactic Acid Calcium Total Bilirubin AST ALT Alkaline Phosphatase Total Protein Albumin Urine Color Urine Appearance Urine pH Ur Specific [place] Urine Protein Urine Glucose (UA) Urine Ketones Urine Blood Urine Nitrite Ur Leukocyte Esterase Urine RBC Urine WBC Ur Squamous Epith Cells Urine Bacteria Hyaline Casts Ethyl Alcohol COVID-19 (MUSHTAQ) Negative COVID-19 Clin Com See Note Influenza Type A (DANIELLE) Negative Influenza Type B (DANIELLE) Negative Influenza A & B Note See Note 06/26/22 06/26/22 06/26/22 01:06 01:06 01:06 MCV MCH MCHC RDW Plt Count MPV Immature Gran % (Auto) Neut % (Auto) Lymph % (Auto) [place] % (Auto) Eos % (Auto) Baso % (Auto) Lymph # (Auto) [place] # (Auto) Eos # (Auto) Baso # (Auto) Abs Immat Gran (auto) Absolute Neuts (auto) Absolute Nucleated RBC Nucleated RBC % (auto) PT 26.7 H INR 2.2 H APTT 52.2 H Anion Gap 16 Estim Creat Clear Calc 46.1 Estimated GFR 50 Random Glucose 290 H Lactic Acid Calcium 9.6 Total Bilirubin 1.0 AST 22 ALT 26 Alkaline Phosphatase 117 Total Protein 7.3 Albumin 3.9 Urine Color Urine Appearance Urine pH Ur Specific [place] Urine Protein Urine Glucose (UA) Urine Ketones Urine Blood Urine Nitrite Ur Leukocyte Esterase Urine RBC Urine WBC Ur Squamous Epith Cells Urine Bacteria Hyaline Casts Ethyl Alcohol < 10 COVID-19 (MUSHTAQ) COVID-19 Clin Com Influenza Type A (DANIELLE) Influenza Type B (DANIELLE) Influenza A & B Note 06/26/22 06/26/22 01:21 04:16 MCV MCH MCHC RDW Plt Count MPV Immature Gran % (Auto) Neut % (Auto) Lymph % (Auto) [place] % (Auto) Eos % (Auto) Baso % (Auto) Lymph # (Auto) [place] # (Auto) Eos # (Auto) Baso # (Auto) Abs Immat Gran (auto) Absolute Neuts (auto) Absolute Nucleated RBC Nucleated RBC % (auto) PT INR APTT Anion Gap Estim Creat Clear Calc Estimated GFR Random Glucose Lactic Acid 2.0 Calcium Total Bilirubin AST ALT Alkaline Phosphatase Total Protein Albumin Urine Color Yellow Urine Appearance Clear Urine pH 5.5 Ur Specific [place] 1.025 Urine Protein 100 (2+) H Urine Glucose (UA) >=1000 H Urine Ketones Trace Urine Blood Negative Urine Nitrite Negative Ur Leukocyte Esterase Trace H Urine RBC 0-2 Urine WBC 0-5 Ur Squamous Epith Cells 0-2 Urine Bacteria None Seen Hyaline Casts 0-2 Ethyl Alcohol COVID-19 (MUSHTAQ) COVID-19 Clin Com Influenza Type A (DANIELLE) Influenza Type B (DANIELLE) Influenza A & B Note Imaging Radiologist's Impressions: Impressions Cervical Spine CT 06/26/22 02:15 IMPRESSION: 1. No acute intracranial finding. 2. No fracture or malalignment of the cervical spine. Mild degenerative changes. Head CT 06/26/22 02:15 IMPRESSION: 1. No acute intracranial finding. 2. No fracture or malalignment of the cervical spine. Mild degenerative changes. Shoulder X-Ray 06/26/22 02:25 IMPRESSION: Chronic healed right humeral fracture. No acute fracture or malalignment. Abdomen/Pelvis CT 06/26/22 02:40 IMPRESSION: 1. No acute findings in the abdomen or pelvis. No acute fractures. 2. Right lower lobe consolidation. This could be infectious or inflammatory. 3. Cholelithiasis. Fleischner guidelines were followed. Chest X-Ray 06/26/22 03:05 IMPRESSION: No dense consolidation. Bronchial wall thickening can be seen with a small airways process such as asthma or atypical/viral infection. 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 #. Acute hypoxemic respiratory failure secondary to: #. Community-acquired pneumonia - leukocytosis with right sided infiltrate on imaging. - will admit patient and initiate empiric antibiotics, azithromycin and Rocephin. Monitor oxygen saturation and wean as tolerated, maintain oxygen saturation greater than 92%. Currently on 3 L supplemental oxygen. #. Generalized weakness due to above -leading to recurrent falls. Consulting Physical therapy to evaluate and treat. #. ?Pre-syncope -due to infection. obtain orthostatic vital signs #. IDDM with hyperglycemia - reduce basal insulin while in the hospital. Initiate Accu-Cheks with sliding scale insulin before meals and at bedtime. #. Essential hypertension continue home #. History of VTE - on warfarin . INR within therapeutic range #. Hypothyroidism -continue synthroid #. Urinary incontinence -continue solifenacin #. GERD -on omerprazole #. RENZO -on sertraline and clonazepam Med rec pending DVT prophylaxis: On coumadin Diabetic diet Full code Admit as inpatient and will require two night minimum hospital stay for IV antibiotics and supplemental oxygen. She is Quality Stroke Does the patient have a stroke diagnosis?: No VTE Prior VTE?: Yes VTE Risk Level:: Medical - moderate - high VTE Device Contraindication: Treatment Not Indicated VTE Drug Contraindication: N/A - Med Ordered
[2022-06-26 06:18] LABS: MANUAL DIFF FLAG NO
[2022-06-26 06:25] LABS: Basophils Percent Auto 0.2 % (0-2); Hematocrit 41.4 % (37.0-47.0); Hemoglobin 13.5 g/dl (12.0-16.0); Imm Gran Abs Auto 0.38 X10*3/uL (0.00-0.03); Imm Gran Pct Auto 1.8 % (0.0-0.4); Lymphocytes Absolute Auto 1.6 X10*3/uL (1.2-4.9); Lymphocytes Percent Auto 7.8 % (20-40); Mean Corpuscular HGB Conc 32.6 g/dl (31.0-35.0); Mean Corpuscular Hemoglobin 30.3 pg (27.0-33.0); Mean Corpuscular Volume 92.8 fL (80.0-98.0); Mean Platelet Volume 11.4 fL (9.4-12.3); Monocytes Percent Auto 4.7 % (2-11); Neutrophils Absolute Auto 17.6 x10*3/uL (2.0-8.3); Neutrophils Percent Auto 85.5 % (45-73); Platelet Count 143 X10*3/uL (160-400); Red Blood Count 4.46 X10*6/uL (4.20-5.50); Red Cell Distribution Width 13.3 % (11.0-16.0); White Blood Count 20.6 X10*3/uL (4.8-10.8)
[2022-06-26] MEDS: Insulin Glargine,Hum.rec.anlog 100 UNIT/ML 10 ML VIAL 20 UNIT SUBCUT (06:40)
[2022-06-26 06:47] LABS: Glucose, Whole Blood 264 mg/dL (60-115)
[2022-06-26 07:26] LABS: Anion Gap 16 (12-20); Blood Urea Nitrogen 17 mg/dL (9-16); Calcium 9.3 mg/dL (8.4-10.2); Carbon Dioxide 28 mmol/L (22-29); Chloride 97 mmol/L (96-108); Creatinine Clr Calc Pharmacy 52.5; Estimated Glomerular Filt Rate 58; Glucose Random 240 mg/dL (60-115); Potassium 4.1 mmol/L (3.3-5.1); Sodium 137 mmol/L (135-145)
[2022-06-26 07:41] LABS: Glucose, Whole Blood 253 mg/dL (60-115)
--- NOTE | 2022-06-26 09:15 | PC.NURSE ---
patient clean and complete bed change
--- NOTE | 2022-06-26 09:31 | PM.EVENT ---
Event Note Date of Service: 06/26/22 Event Note: pt seen, a/p per h&P of this morning
--- NOTE | 2022-06-26 11:00 | PC.NURSE ---
Pt alert and oriented, respirations even and unlabored. Daughter at bedside, slovak speaking only. Pt resting comfortably at this time.
--- NOTE | 2022-06-26 11:05 | PHA.MEDREC ---
Pharmacy Consult ? Medication Reconciliation Pharmacy has completed the medication reconciliation. Patient's duaghter had list of medications. Tried to contact Paul her YOUTH COUNSELOR on warfarin dosing. Unable to reach Freddie. [place] [facility] [place]. Jackie Napoles, PharmD
[2022-06-26 13:46] LABS: Glucose, Whole Blood 299 mg/dL (60-115)
[2022-06-26] MEDS: Cholecalciferol (Vitamin D3) 25 MCG TABLET 50 MCG PO (13:50)
[2022-06-26] MEDS: Furosemide 40 MG TABLET PO (13:50)
[2022-06-26] MEDS: Insulin Lispro 100 UNIT/ML 3 ML VIAL SUBCUT ×3 (13:50→21:57)
[2022-06-26] MEDS: Multivitamin TABLET 1 TAB PO (13:50)
[2022-06-26] MEDS: Levothyroxine Sodium 100 MCG TABLET PO (13:50)
--- NOTE | 2022-06-26 16:39 | PC.NURSE ---
Addendum entered by Josiane Smith 06/26/22 16:48: Mekhi, RICHARD, at bedside and updated on plan of care. Pt o2 found to be low on room air, nasal cannula applied at 2L. Original Note: Isiah cheng [phone]
[2022-06-26] MEDS: 0.9 % Sodium Chloride Flush 3 ML SYRINGE IVFLUSH (17:05)
[2022-06-26] MEDS: Omeprazole 20 MG CAPSULE.DR PO (18:24)
[2022-06-26 18:32] LABS: Glucose, Whole Blood 230 mg/dL (60-115)
[2022-06-26] MEDS: Warfarin Sodium 3 MG TABLET PO (19:44)
[2022-06-26 21:25] LABS: Glucose, Whole Blood 303 mg/dL (60-115)
[2022-06-26] MEDS: Insulin Glargine,Hum.rec.anlog 100 UNIT/ML 10 ML VIAL 25 UNIT SUBCUT (21:57)
[2022-06-26] MEDS: clonazePAM 0.5 MG TABLET PO (21:57)
--- NOTE | 2022-06-26 22:02 | PC.NURSE ---
this RN attempted to medicate pt with 2100 medication according to MAR. Son at pt's bedside states that pt lucas takes clonazepam at bedtime all other medications are taken in the morning unsure of names of medications. pt's son states he will bring her packet of medications and times in the morning. situation was discussed with Hospitalist dr. rodriguez.per dr michael rodriguez to give clonazepam and insulin doses and hold metoprolol, docusate, atorvastatin, and metformin at this time
--- NOTE | 2022-06-27 01:57 | PC.NURSE ---
lab called this RN reporting blood culture showed gram positive cocci in clusters in 1 bottle of [address] Coronel made aware of result. no new orders at this time
[2022-06-27] MEDS: 0.9 % Sodium Chloride Flush 3 ML SYRINGE IVFLUSH ×2 (02:52→07:34)
[2022-06-27] MEDS: Azithromycin 500 MG in 0.9 % Sodium Chloride 250 ML 125 MG IV (02:52)
--- NOTE | 2022-06-27 04:16 | PC.NURSE ---
this RN repositioned pt to L side utilizing pillows. pt boosted up in bed at this time
[2022-06-27] MEDS: cefTRIAXone sodium 1 GM in 0.9 % Sodium Chloride 50 ML IV (05:10)
[2022-06-27] MEDS: Levothyroxine Sodium 100 MCG TABLET PO (06:04)
[2022-06-27] MEDS: Omeprazole 20 MG CAPSULE.DR PO ×2 (06:04→18:17)
[2022-06-27 06:37] LABS: INTERNATIONAL NORM RATIO 2.4 (0.9-1.1); Prothrombin Time 28.2 SEC (10.0-13.1)
[2022-06-27 07:26] LABS: Glucose, Whole Blood 214 mg/dL (60-115)
[2022-06-27] MEDS: Insulin Lispro 100 UNIT/ML 3 ML VIAL SUBCUT ×4 (07:32→22:11)
[2022-06-27 07:56] VITALS: BP 128/64; PULSE 99; RESP 16; TEMP 36.8; O2SAT 93
--- NOTE | 2022-06-27 09:13 | PC.NURSE ---
Dr. Mahmood instructed to give all medications except lasix
[2022-06-27] MEDS: Metoprolol Tartrate 12.5 MG HALFTAB PO ×2 (09:16→21:14)
[2022-06-27] MEDS: Cholecalciferol (Vitamin D3) 25 MCG TABLET 50 MCG PO (09:16)
[2022-06-27] MEDS: Sertraline HCL 50 MG TABLET PO (09:16)
[2022-06-27] MEDS: Docusate Sodium 100 MG CAPSULE PO ×2 (09:16→21:14)
[2022-06-27] MEDS: Multivitamin TABLET 1 TAB PO (09:16)
[2022-06-27] MEDS: metFORMIN HCl ER 500 MG TAB.ER.24H PO ×2 (09:17→21:14)
[2022-06-27] MEDS: Insulin Glargine,Hum.rec.anlog 100 UNIT/ML 10 ML VIAL 20 UNIT SUBCUT (09:17)
--- NOTE | 2022-06-27 10:40 | PHA.PROG ---
Admission Date/Time: June 26, 2022 05:35 Indication:acteremiaB Weight in k.326 kg Adjusted body weight in Kg: [place] body weight in Kg: Obesity Dosing Indication % IBW: Serum Creatinine - Last 168 Hours 06/26/22 06/26/22 01:06 06:04 Creatinine 1.05 0.92 Estimated CrCl and GFR - Last 168 Hours 06/26/22 06/26/22 01:06 06:04 Estim Creat Clear Calc 46.1 52.5 Estimated GFR 50 58 Vancomycin Loading Dose: 2000mg X 1 Current Vancomycin Dosing Regimen: 1000mg Q24H Vancomycin Monitoring using AUC goal of 400 - 600 range with trough as surrogate marker: 490mg/L Date and Time for next Vancomycin Level to be drawn: 06/30/22 @0900 Pharmacist Comments on Vancomycin Plan: Using obese model; will continue to monitor renal function Vancomycin dosing will take advantage of [employer] as a clinical decision support tool that uses Bayesian modeling to calculate individual patient's pharmacokinetic parameters and forecast the patient's drug concentration time course with the target goal AUC 24 range of 400 - 600 mg/L/hr.
[2022-06-27] MEDS: Tolterodine Tartrate LA 4 MG CAP.ER.24H PO (11:00)
--- NOTE | 2022-06-27 11:03 | PC.NURSE ---
medicated per provider order.
[2022-06-27 11:36] LABS: Creatinine Clr Calc Pharmacy 50.9; Estimated Glomerular Filt Rate 56
[2022-06-27 12:20] VITALS: BP 143/63; PULSE 83; RESP 20; O2SAT 90
--- NOTE | 2022-06-27 12:30 | MHC.CM.PN ---
Addendum entered by Rosy Le 06/27/22 12:52: Correction- Meet with patient w/ daughter and software test specialist to complete HCP. Patient reported wanting more time to decide on HCP. Daughter also reports possibly having copy @ home. Left education @ bedside. Original Note: This writer producer meet patient and son @ bedside. Patient is wolof speaking only. Patient is currently residing with her son and nephew is SENIOR PROGRAM MANAGER. @ baseline patient ambulates w/ walker. PCP verified. IMM delivered. Vax'd and boosted. PT is recommending [facility], patient has been to [facility] in the past and would like to return there. Referrals made. BLS @ d/c for transport. HCP completed, copy to patient/family, copy to chart.
[2022-06-27 14:01] LABS: Glucose, Whole Blood 224 mg/dL (60-115)
--- NOTE | 2022-06-27 14:55 | P.PNIM_ITS ---
Subjective Subjective Date of Service: 06/27/22 Interval History: being followed for generalized weakness and fall, son at bedside, patient denies shortness of breath, no cough no headache, no dizziness, denies nausea vomiting no abdominal pain, no fevers no chills , complaining of left hip discomfort, no other acute issues since admission patient evaluated by physical therapy they recommend short-term rehab. Review of Systems General no headache, no dizziness, no fever chills. CVS no chest pain, no palpitation. Respiratory no cough, no sob. Gastrointestinal no nausea,no vomiting, no abdominal pain Review of Systems: Yes all other systems are reviewed and are negative Physical Exam Vital Signs: Vital Signs: Last Vital Signs Temp 98.2 F 06/27/22 07:56 Pulse 83 06/27/22 12:20 Resp 20 06/27/22 12:20 BP 143/63 H 06/27/22 12:20 Pulse Ox 90 L 06/27/22 12:20 O2 Del Method 06/27/22 12:20 O2 Flow Rate 2 06/27/22 07:56 BMI result Body Mass Index 38.2 Const: Other: General resting comfortably in no acute distress. Neck supple, no JVD. CVS regular rate rhythm, Respiratory no respiratory distress, no wheeze, no rhonchi. Gastrointestinal abdomen soft, nontender, bowel sounds audible, no guarding , no rigidity. Extremities no edema. left hip no bruising good range of motion. Neuro nonfocal, moving all 4 extremity speech clear. Skin no rash Objective Data Active Medications Acetaminophen (Acetaminophen 325 Mg Tablet) 650 mg PO Q6H PRN PRN Reason: Pain, Mild (Pain Scale 1-3) Albuterol/Ipratropium (Albuterol/Iprat 2.5/0.5mg 3 Ml Ampul.Neb) 3 ml INHALE RQ4H PRN PRN Reason: wheeazing Albuterol/Ipratropium (Albuterol/Iprat 2.5/0.5mg 3 Ml Ampul.Neb) 3 ml INHALE Q6H PRN PRN Reason: Wheezing Atorvastatin Calcium (Atorvastatin Calcium 20 Mg Tablet) 20 mg PO BEDTIME [facility] Last Admin: 06/26/22 22:07 Dose: Not Given Documented By: MARCELO Non-Admin Reason: Patient Refused Clonazepam (Clonazepam 0.5 Mg Tablet) 0.5 mg PO BEDTIME [facility] Last Admin: 06/26/22 21:57 Dose: 0.5 mg Documented By: MARCELO Clotrimazole (Clotrimazole 1 % Cream 15 Gm Tube) 1 appl TOPICAL BID PRN; Protocol PRN Reason: Rash Dextrose (Dextrose 50 % 25 Gm/50 Ml Syringe) 25 gm IVPUSH Q15M PRN; Protocol PRN Reason: per Hypoglycemia Standing Ord. Docusate Sodium (Docusate Sodium 100 Mg Capsule) 100 mg PO BID [facility] Last Admin: 06/27/22 09:16 Dose: 100 mg Documented By: YESI Fluticasone Propionate (Fluticasone Propionate Nasal 16 Gm [place]) 2 spray NOSTRIL-B DAILY [facility] Last Admin: 06/27/22 09:19 Dose: Not Given Documented By: YESI Non-Admin Reason: Patient Refused Fluticasone/Vilanterol (Fluticasone/Vilanterol 200/25 Blst.W.Dev) 1 puff INHALE RDAILY [facility] Last Admin: 06/27/22 08:15 Dose: Not Given Documented By: FREDDY Non-Admin Reason: med unavail pharmacy called Furosemide (Furosemide 40 Mg Tablet) 40 mg PO DAILY [facility]; Protocol Last Admin: 06/27/22 09:10 Dose: Not Given Documented By: YESI Non-Admin Reason: Physician Held Med Glucose (Glucose Gel 15 Gm Gel..Gram.) 15 gm PO Q15M PRN; Protocol PRN Reason: per Hypoglycemia Standing Ord. Azithromycin 500 mg/ Sodium (Chloride) 250 mls @ 125 mls/hr IV DAILY@0300 [facility] Last Infusion: 06/27/22 05:12 Dose: 0 mls/hr Documented By: MARCELO Ceftriaxone Sodium 1 gm/ (Sodium Chloride) 50 mls @ 100 mls/hr IV DAILY@0400 [facility] Last Infusion: 06/27/22 06:09 Dose: 0 mls/hr Documented By: MARCELO Vancomycin HCl 1,000 mg/ (Sodium Chloride) 270 mls @ 270 mls/hr IV Q24H [facility] Insulin Glargine (Insulin Glargine,Hum.Rec.Anlog 100 Unit/Ml 10 Ml Vial) 20 unit SUBCUT DAILY [facility] Last Admin: 06/27/22 09:17 Dose: 20 unit Documented By: YESI Insulin Glargine (Insulin Glargine,Hum.Rec.Anlog 100 Unit/Ml 10 Ml Vial) 25 unit SUBCUT BEDTIME [facility] Last Admin: 06/26/22 21:57 Dose: 25 unit Documented By: MARCELO Insulin Human Lispro (Insulin Lispro 100 Unit/Ml 3 Ml Vial) 0 unit SUBCUT QIDACHS [facility]; Protocol Last Admin: 06/27/22 14:13 Dose: 4 unit Documented By: YESI Levothyroxine Sodium (Levothyroxine Sodium 100 Mcg Tablet) 100 mcg PO DAILY@0600 [facility] Last Admin: 06/27/22 06:04 Dose: 100 mcg Documented By: MARCELO Melatonin (Melatonin 3 Mg Tablet) 6 mg PO BEDTIME PRN PRN Reason: Insomnia Metformin HCl (Metformin Hcl Er 500 Mg Tab.Er.24h) 500 mg PO BID [facility] Last Admin: 06/27/22 09:17 Dose: 500 mg Documented By: YESI Metoprolol Tartrate (Metoprolol Tartrate 12.5 Mg Halftab) 12.5 mg PO BID [facility]; Protocol Last Admin: 06/27/22 09:16 Dose: 12.5 mg Documented By: YESI Comments: 123/59 91 Multivitamins/Vitamin C (Multivitamin Tablet) 1 tab PO DAILY [facility] Last Admin: 06/27/22 09:16 Dose: 1 tab Documented By: YESI Non-Formulary Medication (Dulaglutide [Trulicity]) 1.5 mg SUBCUT QWEEK [facility] Omeprazole (Omeprazole 20 Mg Capsule.) 20 mg PO BID@0630,1630 [facility] Last Admin: 06/27/22 06:04 Dose: 20 mg Documented By: MARCELO Ondansetron HCl (Ondansetron Hcl 4 Mg/2 Ml Vial) 4 mg IVPUSH Q8H PRN PRN Reason: Nausea and Vomiting Pharmacy Consult (Consult Rx Perform Med Rec) 1 each MISCELLANE ONCE PRN PRN Reason: Consult order Pharmacy Consult (Consult Rx Vancomycin Dosing) 1 each MISCELLANE DAILY PRN PRN Reason: Consult order Polyethylene Glycol (Polyethylene Glycol 3350 17 Gm Powd.Pack) 17 gm PO DAILY PRN PRN Reason: Constipation Sertraline HCl (Sertraline Hcl 50 Mg Tablet) 50 mg PO DAILY [facility] Last Admin: 06/27/22 09:16 Dose: 50 mg Documented By: YESI Sodium Chloride (0.9 % Sodium Chloride Flush 3 Ml Syringe) 3 ml IVFLUSH QSHIFT [facility] Last Admin: 06/27/22 07:34 Dose: 3 ml Documented By: YESI Tolterodine Tartrate (Tolterodine Tartrate [place] 4 Mg Cap.Er.24h) 4 mg PO DAILY [facility] Last Admin: 06/27/22 11:00 Dose: 4 mg Documented By: ANANDDENJose F Vitamin D (Cholecalciferol (Vitamin D3) 25 Mcg Tablet) 50 mcg PO DAILY [facility] Last Admin: 06/27/22 09:16 Dose: 50 mcg Documented By: YESI Warfarin Sodium (Warfarin Sodium 0.5 Mg Halftab) 4.5 mg PO MoTh@1800 [facility] Warfarin Sodium (Warfarin Sodium 3 Mg Tablet) 3 mg PO SuTuWeFrSa@1800 [facility] Last Admin: 06/26/22 19:44 Dose: 3 mg Documented By: MARCELO Labs CBC & Chem 7: 06/26/22 06:04 06/27/22 11:14 Labs: Laboratory Results - last 24 hr 06/26/22 06/26/22 06/27/22 18:26 21:20 06:13 PT 28.2 H INR 2.4 H Estim Creat Clear Calc Estimated GFR POC Glucose 230 H 303 H 06/27/22 06/27/22 06/27/22 07:22 11:14 13:57 PT INR Estim Creat Clear Calc 50.9 Estimated GFR 56 POC Glucose 214 H 224 H Microbiology Microbiology Results: Microbiology 06/26/22 04:16 Blood Culture - Preliminary Blood - Venous Prelim: GPC Gram Stain only 06/26/22 04:16 Blood Culture - Preliminary Blood - Venous No growth after 24 hours. Assessment and Plan (1) Hypoxia: Status: Acute Plan 86-year-old female with pertinent history of insulin-dependent diabetes mellitus, essential hypertension, anxiety disorder, history of DVT on Coumadin, hypothyroidism, urinary incontinence was brought to the emergency department by her daughter for evaluation of generalized weakness. #.? Acute hypoxemic respiratory failure secondary to Community-acquired pneumonia and Gram-positive bacteremia - persistent leukocytosis WBC [id number], right sided infiltrate on CT abdomen and pelvis, blood cultures 1/2 positive for Gram-positive cocci. - on iv azithromycin and Rocephin day 2 will add vancomycin and follow final blood culture report oxygenation improved currently 90% on room air.? #.? Generalized weakness / unsteady gait and fall seen by Physical therapy they recommend short-term rehab. #. ?Pre-syncope -due to infection, normal orthostatic vital signs #. IDDM with hyperglycemia - continue Lantus 25 units daily,follow Accu-Cheks with sliding scale insulin before meals and at bedtime, continue metformin. #. Essential hypertension continue metoprolol and follow blood pressure #. History of VTE - on warfarin, INR within therapeutic range, follow PT INR closely while on antibiotics #. Hypothyroidism -continue synthroid #. Urinary incontinence -continue solifenacin #. GERD -on omerprazole #. RENZO -on sertraline and clonazepam DVT prophylaxis: On coumadin Full code continue inpatient hospitalization for bacteremia on IV antibiotics need short-term rehab Quality Stroke Does the patient have a stroke diagnosis?: No VTE Prior VTE?: Yes VTE Risk Level:: Medical - moderate - high VTE Device Contraindication: Treatment Not Indicated VTE Drug Contraindication: N/A - Med Ordered
[2022-06-27] MEDS: Warfarin Sodium 3 MG TABLET 4.5 MG PO (18:17)
[2022-06-27 18:47] LABS: Glucose, Whole Blood 249 mg/dL (60-115)
[2022-06-27] MEDS: clonazePAM 0.5 MG TABLET PO (21:14)
[2022-06-27] MEDS: Atorvastatin Calcium 20 MG TABLET PO (21:14)
[2022-06-27 22:12] LABS: Glucose, Whole Blood 242 mg/dL (60-115)
[2022-06-28] VITALS (8 sets, daily range): BP systolic 108–146; BP diastolic 50–76; PULSE 61–86; RESP 16–20; TEMP 36.1–37; O2SAT 92–98
[2022-06-28] MEDS: 0.9 % Sodium Chloride Flush 3 ML SYRINGE IVFLUSH ×3 (00:20→17:09)
[2022-06-28] MEDS: Azithromycin 500 MG in 0.9 % Sodium Chloride 250 ML 125 MG IV (02:16)
[2022-06-28] MEDS: cefTRIAXone sodium 1 GM in 0.9 % Sodium Chloride 50 ML IV (04:18)
[2022-06-28] MEDS: Omeprazole 20 MG CAPSULE.DR PO ×2 (06:41→17:09)
[2022-06-28] MEDS: Levothyroxine Sodium 100 MCG TABLET PO (06:41)
[2022-06-28 07:07] LABS: Glucose, Whole Blood 124 mg/dL (60-115)
--- NOTE | 2022-06-28 07:23 | PC.NURSE ---
per previous shift report, pt was confused overnight, pt sleeping and easily woken, oriented x 3 w delayed responses, denies sob, spo2 85 ra and placed on 2lpm nc, placed on monitor and sr on monitor, skin wpd, declined breakfast, nad
[2022-06-28 07:33] LABS: Creatinine Clr Calc Pharmacy 60.4; Estimated Glomerular Filt Rate > 60
[2022-06-28] MEDS: Fluticasone/Vilanterol 200/25 BLST.W.DEV 1 PUFF INHALE (08:38)
[2022-06-28 08:53] LABS: INTERNATIONAL NORM RATIO 2.1 (0.9-1.1); Prothrombin Time 24.7 SEC (10.0-13.1)
[2022-06-28] MEDS: Tolterodine Tartrate LA 4 MG CAP.ER.24H PO (09:22)
[2022-06-28] MEDS: Cholecalciferol (Vitamin D3) 25 MCG TABLET 50 MCG PO (09:22)
[2022-06-28] MEDS: Docusate Sodium 100 MG CAPSULE PO ×2 (09:22→20:20)
[2022-06-28] MEDS: Metoprolol Tartrate 12.5 MG HALFTAB PO ×2 (09:22→20:22)
[2022-06-28] MEDS: metFORMIN HCl ER 500 MG TAB.ER.24H PO ×2 (09:22→20:20)
--- NOTE | 2022-06-28 09:22 | P.CDIC_ITS ---
CDI Concurrent Query Documentation Clarification: PHYSICIAN'S DOCUMENTATION REQUEST Date of Query: 06/28/22922 Patient Name: Nikky Morgan Admit Date: 06/26/22 Dear Doctor, A review of the medical record indicates additional documentation may be needed. Please review below and update the documentation accordingly. Clinical Indicators: Risk Factors/Clinical Indicators/Treatments WBC 19 Temperature 06/26/22: 100.4, HR 90 - 102 LA 2.0 Per MD progress note 06/27/22: Acute hypoxemic respiratory failure secondary to Community-acquired pneumonia and Gram-positive bacteremia Treated with IV Vancomycin, Azithromycin and Ceftriaxone Please clarify which, if any, of the following is the most likely etiology of the above symptoms and treatment rendered: * Sepsis * Systemic manifestations of infection, with 2 or more SIRS criteria which include: - Fever > 100.4F or hypothermia < 96.8 F - Leukocytosis - WBC > 12,000 or leukopenia, WBC < 4,000 or > 10% bands - Tachycardia > 90 beats/minute - Tachypnea - RR > 20 breaths/minute or PaCO2 < 32mmHg (Source: Merck Manual 2013) * Indicate the known or suspected organism * Indicate the known or suspected underlying infection, such as UTI, pneumonia, or cellulitis * Indicate if a suspected bacterial infection of unknown source * Indicate if associated with an implanted device such as a F/C, PICC line, orthopedic hardware, etc. * Localized infection only, without systemic illness - indicate the site/source, such as UTI, pneumonia, etc. * Other (please specify) * Unable to determine Use of terms such as suspected, likely, concern for, or probable (associated with a specific diagnosis that is being evaluated, monitored, or treated as if it exists) are acceptable and can be coded in the inpatient setting, when documented at the time of discharge. Thank you, Lisa Marrero RN Extension: [phone] Please use your independent medical judgment in providing your response. THIS QUERY IS PART OF THE PERMANENT MEDICAL RECORD Provider Response: Other Other Diagnosis: see note
[2022-06-28] MEDS: Multivitamin TABLET 1 TAB PO (09:23)
[2022-06-28] MEDS: Insulin Glargine,Hum.rec.anlog 100 UNIT/ML 10 ML VIAL 25 UNIT SUBCUT (09:23)
[2022-06-28] MEDS: Furosemide 40 MG TABLET PO (09:23)
--- NOTE | 2022-06-28 09:24 | HE.PHANOTE ---
MERCEDES HOLCOMB CONTINUE CURRENT DOSE, NEXT TROUGH 06/30 @ 0900 Justin
[2022-06-28 09:51] LABS: Hematocrit 37.7 % (37.0-47.0); Hemoglobin 12.1 g/dl (12.0-16.0); Mean Corpuscular HGB Conc 32.1 g/dl (31.0-35.0); Mean Corpuscular Hemoglobin 30.5 pg (27.0-33.0); Mean Platelet Volume 12.3 fL (9.4-12.3); Platelet Count 128 X10*3/uL (160-400); Red Blood Count 3.97 X10*6/uL (4.20-5.50); Red Cell Distribution Width 13.6 % (11.0-16.0); White Blood Count 12.2 X10*3/uL (4.8-10.8)
[2022-06-28] MEDS: Sertraline HCL 50 MG TABLET PO (10:54)
[2022-06-28] MEDS: vancomycin HCL 1,000 MG in 0.9 % Sodium Chloride 250 ML 270 MG IV (10:55)
[2022-06-28 13:53] LABS: Glucose, Whole Blood 235 mg/dL (60-115)
[2022-06-28] MEDS: Insulin Lispro 100 UNIT/ML 3 ML VIAL SUBCUT ×2 (14:29→17:09)
--- NOTE | 2022-06-28 14:41 | PC.NURSE ---
pt ate about 40-50% of lunch, sliding scale called for 8 units w meal, 6 units given, family at bedside, pt alert, pleasant, denies sob
--- NOTE | 2022-06-28 15:01 | HO.PM.IMPN ---
Subjective Subjective Date of Service: 06/28/22 Interval History: patient awake alert answered all questions appropriately history obtained via educational interpreter patient denies lightheadedness dizziness, no shortness of breath, no chest pain, no cough, no fevers, no chills, noted to have hypoxia area forester that improved with 2 L of oxygen, daughter at bedside feels patient is doing better. patient does complain of bilateral shoulder pain that started after fall. Review of Systems GI no nausea no vomiting no abdominal pain no urgency, no frequency Skin no rash Review of Systems: Yes all other systems are reviewed and are negative Physical Exam Vital Signs: Vital Signs: Last Vital Signs Temp 98.6 F 06/28/22 00:42 Pulse 61 06/28/22 14:04 Resp 19 06/28/22 14:04 BP 140/76 H 06/28/22 14:04 Pulse Ox 95 06/28/22 14:04 O2 Del Method 06/28/22 14:04 O2 Flow Rate 2 06/28/22 14:04 BMI result Body Mass Index 38.2 Const: Other: General awake alert x3,? resting comfortably in no acute distress.? Neck? supple, no JVD. CVS? regular rate rhythm, Respiratory no respiratory distress, no wheeze, no rhonchi. diminished breath sound at bases image Gastrointestinal abdomen soft, nontender, bowel sounds audible, no guarding , no rigidity. Extremities no edema. left hip no bruising good range of motion. Neuro nonfocal, moving all 4 extremity speech clear. Skin no rash Objective Data Active Medications Acetaminophen (Acetaminophen 325 Mg Tablet) 650 mg PO Q6H PRN PRN Reason: Pain, Mild (Pain Scale 1-3) Albuterol/Ipratropium (Albuterol/Iprat 2.5/0.5mg 3 Ml Ampul.Neb) 3 ml INHALE RQ4H PRN PRN Reason: wheeazing Albuterol/Ipratropium (Albuterol/Iprat 2.5/0.5mg 3 Ml Ampul.Neb) 3 ml INHALE Q6H PRN PRN Reason: Wheezing Atorvastatin Calcium (Atorvastatin Calcium 20 Mg Tablet) 20 mg PO BEDTIME [facility] Last Admin: 06/27/22 21:14 Dose: 20 mg Documented By: MAHESH Clonazepam (Clonazepam 0.5 Mg Tablet) 0.5 mg PO BEDTIME [facility] Last Admin: 06/27/22 21:14 Dose: 0.5 mg Documented By: IGNACIO-GUTHC Clotrimazole (Clotrimazole 1 % Cream 15 Gm Tube) 1 appl TOPICAL BID PRN; Protocol PRN Reason: Rash Dextrose (Dextrose 50 % 25 Gm/50 Ml Syringe) 25 gm IVPUSH Q15M PRN; Protocol PRN Reason: per Hypoglycemia Standing Ord. Docusate Sodium (Docusate Sodium 100 Mg Capsule) 100 mg PO BID [facility] Last Admin: 06/28/22 09:22 Dose: 100 mg Documented By: ROMAN Fluticasone Propionate (Fluticasone Propionate Nasal 16 Gm [place]) 2 spray NOSTRIL-B DAILY [facility] Last Admin: 06/28/22 09:26 Dose: Not Given Documented By: ROMAN Non-Admin Reason: See Note Fluticasone/Vilanterol (Fluticasone/Vilanterol 200/25 Blst.W.Dev) 1 puff INHALE RDAILY [facility] Last Admin: 06/28/22 08:38 Dose: 1 puff Documented By: RU Furosemide (Furosemide 40 Mg Tablet) 40 mg PO DAILY [facility]; Protocol Last Admin: 06/28/22 09:23 Dose: 40 mg Documented By: ROMAN Glucose (Glucose Gel 15 Gm Gel..Gram.) 15 gm PO Q15M PRN; Protocol PRN Reason: per Hypoglycemia Standing Ord. Azithromycin 500 mg/ Sodium (Chloride) 250 mls @ 125 mls/hr IV DAILY@0300 [facility] Last Infusion: 06/28/22 04:18 Dose: 0 mls/hr Documented By: GRZEGORZ Ceftriaxone Sodium 1 gm/ (Sodium Chloride) 50 mls @ 100 mls/hr IV DAILY@0400 [facility] Last Admin: 06/28/22 04:18 Dose: 100 mls/hr Documented By: GRZEGORZ Vancomycin HCl 1,000 mg/ (Sodium Chloride) 270 mls @ 270 mls/hr IV Q24H [facility] Last Admin: 06/28/22 10:55 Dose: 270 mls/hr Documented By: ROMAN Insulin Glargine (Insulin Glargine,Hum.Rec.Anlog 100 Unit/Ml 10 Ml Vial) 25 unit SUBCUT DAILY [facility] Last Admin: 06/28/22 09:23 Dose: 25 unit Documented By: ROMAN Insulin Human Lispro (Insulin Lispro 100 Unit/Ml 3 Ml Vial) 0 unit SUBCUT QIDACHS [facility]; Protocol Last Admin: 06/28/22 14:29 Dose: 6 unit Documented By: ROMAN Levothyroxine Sodium (Levothyroxine Sodium 100 Mcg Tablet) 100 mcg PO DAILY@0600 [facility] Last Admin: 06/28/22 06:41 Dose: 100 mcg Documented By: GRZEGORZ Melatonin (Melatonin 3 Mg Tablet) 6 mg PO BEDTIME PRN PRN Reason: Insomnia Metformin HCl (Metformin Hcl Er 500 Mg Tab.Er.24h) 500 mg PO BID [facility] Last Admin: 06/28/22 09:22 Dose: 500 mg Documented By: ROMAN Metoprolol Tartrate (Metoprolol Tartrate 12.5 Mg Halftab) 12.5 mg PO BID [facility]; Protocol Last Admin: 06/28/22 09:22 Dose: 12.5 mg Documented By: ROMAN Multivitamins/Vitamin C (Multivitamin Tablet) 1 tab PO DAILY [facility] Last Admin: 06/28/22 09:23 Dose: 1 tab Documented By: ROMAN Omeprazole (Omeprazole 20 Mg Capsule.Dr) 20 mg PO BID@0630,1630 [facility] Last Admin: 06/28/22 06:41 Dose: 20 mg Documented By: GRZEGORZ Ondansetron HCl (Ondansetron Hcl 4 Mg/2 Ml Vial) 4 mg IVPUSH Q8H PRN PRN Reason: Nausea and Vomiting Pharmacy Consult (Consult Rx Perform Med Rec) 1 each MISCELLANE ONCE PRN PRN Reason: Consult order Pharmacy Consult (Consult Rx Vancomycin Dosing) 1 each MISCELLANE DAILY PRN PRN Reason: Consult order Polyethylene Glycol (Polyethylene Glycol 3350 17 Gm Powd.Pack) 17 gm PO DAILY PRN PRN Reason: Constipation Sertraline HCl (Sertraline Hcl 50 Mg Tablet) 50 mg PO DAILY [facility] Last Admin: 06/28/22 10:54 Dose: 50 mg Documented By: ROMAN Sodium Chloride (0.9 % Sodium Chloride Flush 3 Ml Syringe) 3 ml IVFLUSH QSHIFT [facility] Last Admin: 06/28/22 07:28 Dose: 3 ml Documented By: ROMAN Tolterodine Tartrate (Tolterodine Tartrate La 4 Mg Cap.Er.24h) 4 mg PO DAILY [facility] Last Admin: 06/28/22 09:22 Dose: 4 mg Documented By: ROMAN Vitamin D (Cholecalciferol (Vitamin D3) 25 Mcg Tablet) 50 mcg PO DAILY [facility] Last Admin: 06/28/22 09:22 Dose: 50 mcg Documented By: ROMAN Warfarin Sodium (Warfarin Sodium 3 Mg Tablet) 4.5 mg PO MoTh@1800 [facility] Last Admin: 06/27/22 18:17 Dose: 4.5 mg Documented By: MAHESH Warfarin Sodium (Warfarin Sodium 3 Mg Tablet) 3 mg PO SuTuWeFrSa@1800 [facility] Last Admin: 06/26/22 19:44 Dose: 3 mg Documented By: MARCELO Labs CBC & Chem 7: 06/28/22 08:16 06/28/22 06:51 Labs: Laboratory Results - last 24 hr 06/27/22 06/27/22 06/28/22 18:39 22:05 06:51 MCV MCH MCHC RDW Plt Count MPV Absolute Nucleated RBC Nucleated RBC % (auto) PT INR Estim Creat Clear Calc 60.4 Estimated GFR > 60 POC Glucose 249 H 242 H 06/28/22 06/28/22 06/28/22 07:02 08:16 08:16 MCV 95.0 MCH 30.5 MCHC 32.1 RDW 13.6 Plt Count 128 L MPV 12.3 Absolute Nucleated RBC 0.000 Nucleated RBC % (auto) 0.0 PT 24.7 H INR 2.1 H Estim Creat Clear Calc Estimated GFR POC Glucose 124 H 06/28/22 13:50 MCV MCH MCHC RDW Plt Count MPV Absolute Nucleated RBC Nucleated RBC % (auto) PT INR Estim Creat Clear Calc Estimated GFR POC Glucose 235 H Microbiology Microbiology Results: Microbiology 06/26/22 04:16 Blood Culture - Final Blood - Venous Coag negative Staphylococcus 06/26/22 04:16 Blood Culture - Preliminary Blood - Venous No growth after 48 hours. Assessment and Plan (1) Hypoxia: Status: Acute Plan 86-year-old female with pertinent history of insulin-dependent diabetes mellitus, essential hypertension, anxiety disorder, history of DVT on Coumadin, hypothyroidism, urinary incontinence was brought to the emergency department by her daughter for evaluation of generalized weakness. #.? Acute hypoxemic respiratory failure secondary to Community-acquired pneumonia and Gram-positive bacteremia -? WBC trending down, no tachycardia no fever, right sided infiltrate on? CT abdomen and pelvis, blood cultures final report showed coagulase-negative non pathogen bacteria -? on iv azithromycin and Rocephin day 3 will dc vancomycin ? ? gradually wean oxygen not on home O2 # sepsis due to pneumonia present on admission due to leukocytosis, tachycardia and fever WBC trending down tachycardia and and fever resolved continue treatment as above. #.? Generalized weakness / unsteady gait and fall ?? seen by Physical therapy? they recommend short-term rehab. #. ?Pre-syncope -due to infection, normal orthostatic vital signs #. IDDM with hyperglycemia -? continue Lantus? 25 units daily,follow Accu-Cheks with sliding scale insulin before meals and at bedtime, continue metformin. #. Essential hypertension continue metoprolol and follow blood pressure #. History of VTE - on warfarin, INR within therapeutic range, follow PT INR closely while on antibiotics #. Hypothyroidism -continue synthroid #. Urinary incontinence -continue solifenacin #. GERD -on omerprazole #. RENZO -on sertraline and clonazepam DVT prophylaxis: On coumadin Full code ?continue inpatient hospitalization for bacteremia on IV antibiotics? need short-term rehab Quality Stroke Does the patient have a stroke diagnosis?: No VTE Prior VTE?: Yes VTE Risk Level:: Medical - moderate - high VTE Device Contraindication: Treatment Not Indicated VTE Drug Contraindication: N/A - Med Ordered
--- NOTE | 2022-06-28 15:45 | PC.NURSE ---
this rn assumed care of this pt at 1500, pt in bed and daughter at her bedside at the time of assuming care. pt's entire bed saturated with urine, pt's daughter stated that they told me that she will be going upstairs to a room and will be changed when she gets there . incontinent care provided and complete bed change done prior to transporting pt up to her room.
--- NOTE | 2022-06-28 16:11 | PC.NURSE ---
Patient incontinent of large amount of dark julianna colored urine. There was a purewick in place but it seems to have been leaking . Bed linens and patient's gokul were wet. Both were changed before transport to med surg unit. Vital signs also taken and documented. BP cuff changed from small to large appropriate size cuff for size of patient arm. RN aware
[2022-06-28 16:36] LABS: Glucose, Whole Blood 241 mg/dL (60-115)
[2022-06-28] MEDS: Warfarin Sodium 3 MG TABLET PO (17:09)
[2022-06-28 19:45] LABS: Glucose, Whole Blood 141 mg/dL (60-115)
[2022-06-28] MEDS: Atorvastatin Calcium 20 MG TABLET PO (20:20)
[2022-06-28] MEDS: clonazePAM 0.5 MG TABLET PO (20:20)
[2022-06-29] MEDS: 0.9 % Sodium Chloride Flush 3 ML SYRINGE IVFLUSH ×4 (00:11→20:48)
[2022-06-29] MEDS: Azithromycin 500 MG in 0.9 % Sodium Chloride 250 ML 125 MG IV (03:05)
[2022-06-29] MEDS: cefTRIAXone sodium 1 GM in 0.9 % Sodium Chloride 50 ML IV (05:10)
[2022-06-29 06:26] LABS: Hematocrit 37.9 % (37.0-47.0); Hemoglobin 11.9 g/dl (12.0-16.0); Mean Corpuscular HGB Conc 31.4 g/dl (31.0-35.0); Mean Corpuscular Hemoglobin 30.2 pg (27.0-33.0); Mean Corpuscular Volume 96.2 fL (80.0-98.0); Mean Platelet Volume 11.7 fL (9.4-12.3); Platelet Count 147 X10*3/uL (160-400); Red Blood Count 3.94 X10*6/uL (4.20-5.50); Red Cell Distribution Width 13.7 % (11.0-16.0); White Blood Count 10.1 X10*3/uL (4.8-10.8)
[2022-06-29] MEDS: Levothyroxine Sodium 100 MCG TABLET PO (06:44)
[2022-06-29] MEDS: Omeprazole 20 MG CAPSULE.DR PO ×2 (06:44→16:53)
[2022-06-29 07:20] VITALS: BP 142/65; PULSE 68; RESP 16; TEMP 36.7; O2SAT 97
[2022-06-29 07:46] LABS: Glucose, Whole Blood 105 mg/dL (60-115)
[2022-06-29] MEDS: Fluticasone/Vilanterol 200/25 BLST.W.DEV 1 PUFF INHALE (07:57)
[2022-06-29 08:00] VITALS: PULSE 66; RESP 20; O2SAT 97
[2022-06-29 08:01] LABS: Anion Gap 12 (12-20); Blood Urea Nitrogen 21 mg/dL (9-16); Calcium 9.3 mg/dL (8.4-10.2); Carbon Dioxide 30 mmol/L (22-29); Chloride 103 mmol/L (96-108); Creatinine Clr Calc Pharmacy 62.1; Estimated Glomerular Filt Rate > 60; Glucose Random 120 mg/dL (60-115); Sodium 141 mmol/L (135-145)
[2022-06-29 08:40] LABS: Prothrombin Time 24.2 SEC (10.0-13.1)
[2022-06-29] MEDS: Insulin Glargine,Hum.rec.anlog 100 UNIT/ML 10 ML VIAL 25 UNIT SUBCUT (09:38)
[2022-06-29] MEDS: Sertraline HCL 50 MG TABLET PO (09:39)
[2022-06-29] MEDS: Tolterodine Tartrate LA 4 MG CAP.ER.24H PO (09:39)
[2022-06-29] MEDS: Docusate Sodium 100 MG CAPSULE PO ×2 (09:39→20:48)
[2022-06-29] MEDS: Furosemide 40 MG TABLET PO (09:39)
[2022-06-29] MEDS: Multivitamin TABLET 1 TAB PO (09:39)
[2022-06-29] MEDS: Cholecalciferol (Vitamin D3) 25 MCG TABLET 50 MCG PO (09:39)
[2022-06-29] MEDS: metFORMIN HCl ER 500 MG TAB.ER.24H PO ×2 (09:39→20:48)
[2022-06-29] MEDS: Metoprolol Tartrate 12.5 MG HALFTAB PO ×2 (09:40→21:07)
--- NOTE | 2022-06-29 10:22 | MHC.CM.PN ---
CURRENTLY NO BED OFFERS. WAITING RESPONSE FROM ANJUM FISHER AND FELICITA REDMOND HCP UPLOADED INTO SYSTEM.
[2022-06-29 11:08] VITALS: BP 127/60; PULSE 77; RESP 19; TEMP 37.1; O2SAT 96
[2022-06-29 11:16] LABS: Glucose, Whole Blood 189 mg/dL (60-115)
[2022-06-29] MEDS: Acetaminophen 325 MG TABLET 650 MG PO (11:22)
[2022-06-29] MEDS: Insulin Lispro 100 UNIT/ML 3 ML VIAL SUBCUT ×3 (11:48→21:04)
--- NOTE | 2022-06-29 12:46 | MHC.CM.PN ---
CALL TO SON/HCP, BRIAN [phone] SON IS AWARE THAT [facility] IS CLOSEST FACILITY THAT TAKES PATIENT'S INSURANCE AND OFFERING A BED. SON AGREEABLE ALTHOUGH PREFERS [facility]. T/W EXPLAINED MULTIPLE TIMES THAT NO FACILITY IS [facility] IS OFFERING AND [facility] IS THE CLOSEST. [facility] HAS STARTED THE AUTH PROCESS OT ADMIT.
--- NOTE | 2022-06-29 14:43 | PM.DS ---
DS: Providers Provider Date of Service: 06/29/22 Date of admission: 06/26/22 05:35 Primary care physician: Valeri Lerner DO DS: Diagnosis Discharge Diagnosis (1) Hypoxia: Status: Acute DS: Summary Hospital Course Hospital Course: Date of Service: 06/26/22 Chief Complaint: generalized weakness This is a 86-year-old female with pertinent history of insulin-dependent diabetes mellitus, essential hypertension, anxiety disorder, history of DVT on Coumadin, hypothyroidism, urinary incontinence was brought to the emergency department by her daughter for evaluation of generalized weakness.? As per the daughter, patient has had a cough for the last 1 week.? Also has had intermittent fevers and chills.? Patient with poor appetite and generalized weakness for the last 3 days.? Patient also has had 2 falls on the day of presentation.? Patient was walking from bedroom to her living room apparently, when she fell on the floor hitting her head.? No loss of consciousness.? Patient did say that she felt weak and dizzy prior to the fall.? No rhythmic jerking movement of extremities, no tongue bite.? Patient had a 2nd fall in the evening while she was in her bathroom and she hit her right shoulder.? Patient has had no complaints at this time and denies shortness of breath, chest pain, palpitations, abdominal pain, changes in bowel habits. In the emergency department, patient requiring 3 L supplemental oxygen.? Imaging was concerning for right-sided consolidation. hospital course 86-year-old female with pertinent history of insulin-dependent diabetes mellitus, essential hypertension, anxiety disorder, history of DVT on Coumadin, hypothyroidism, urinary incontinence was brought to the emergency department by her daughter for evaluation of generalized weakness. #.? Acute hypoxemic respiratory failure secondary to Community-acquired pneumonia hypoxia improved, currently on 1 L of oxygen finger oximetry 95%, WBC normalized patient received IV Rocephin and azithromycin with good response blood cultures are negative, patient is now discharged to rehab facility on by mouth Ceftin and azithromycin to finish a total 7 day course of antibiotic #? sepsis due to? pneumonia present on admission due to leukocytosis, tachycardia and fever resolved ?? ? #.? Generalized weakness / unsteady gait and fall? seen by Physical therapy? they recommend short-term rehab. #. ?Pre-syncope -due to infection, normal orthostatic vital signs #. IDDM with hyperglycemia? continue Lantus? 25 units daily,follow Accu-Cheks with sliding scale insulin before meals and at bedtime, continue metformin. #. Essential hypertension continue metoprolol and follow blood pressure #. History of VTE- on warfarin, INR within therapeutic range, follow PT INR closely while on antibiotics #. Hypothyroidism -continue synthroid #. Urinary incontinence -continue solifenacin #. GERD -on omerprazole #. RENZO -on sertraline and clonazepam is Time Spent with Patient Time attestation: Total time spent providing and/or coordinating discharge services: Discharge coordination time: Greater than 30 minutes Quality: Safe Use of Opioids Does Pt have an Active Cancer Diagnosis on the Problem List?: No Quality: Stroke Does the patient have a stroke diagnosis?: No Physical Exam Vital Signs: Vital Signs: Last Vital Signs Temp 98.8 F 06/29/22 11:08 Pulse 77 06/29/22 11:08 Resp 19 06/29/22 11:08 BP 127/60 06/29/22 11:08 Pulse Ox 96 06/29/22 11:08 O2 Del Method 06/29/22 11:08 O2 Flow Rate 1 06/29/22 11:08 BMI result Body Mass Index 38.2 Const: Other: General? awake alert x3,? resting comfortably in no acute distress.? Neck? supple, no JVD. CVS? regular rate rhythm, Respiratory no respiratory distress, no wheeze, no rhonchi. diminished breath sound at bases image Gastrointestinal abdomen soft, nontender, bowel sounds audible, no guarding , no rigidity. Extremities no edema. left hip no bruising good range of motion. Neuro nonfocal, moving all 4 extremity speech clear. Skin no rash DS: Data Data Completed and Pending Labs on day of discharge: Laboratory Results - last 24 hr 06/28/22 06/28/22 06/29/22 16:25 19:08 05:42 WBC RBC Hgb Hct MCV MCH MCHC RDW Plt Count MPV Absolute Nucleated RBC Nucleated RBC % (auto) PT INR Sodium 141 Potassium 4.0 Chloride 103 Carbon Dioxide 30 H Anion Gap 12 BUN 21 H Creatinine 0.78 Estim Creat Clear Calc 62.1 Estimated GFR > 60 POC Glucose 241 H 141 H Random Glucose 120 H Calcium 9.3 06/29/22 06/29/22 06/29/22 05:42 07:18 08:04 WBC 10.1 RBC 3.94 L Hgb 11.9 L Hct 37.9 MCV 96.2 MCH 30.2 MCHC 31.4 RDW 13.7 Plt Count 147 L MPV 11.7 Absolute Nucleated RBC 0.000 Nucleated RBC % (auto) 0.0 PT 24.2 H INR 2.0 H Sodium Potassium Chloride Carbon Dioxide Anion Gap BUN Creatinine Estim Creat Clear Calc Estimated GFR POC Glucose 105 Random Glucose Calcium 06/29/22 11:07 WBC RBC Hgb Hct MCV MCH MCHC RDW Plt Count MPV Absolute Nucleated RBC Nucleated RBC % (auto) PT INR Sodium Potassium Chloride Carbon Dioxide Anion Gap BUN Creatinine Estim Creat Clear Calc Estimated GFR POC Glucose 189 H Random Glucose Calcium Preliminary micro results at discharge 06/26/22 04:16 Blood Culture - Preliminary Blood - Venous No growth after 48 hours. Discharge Plan Discharge Anticipated Discharge Date/Time: 06/29/22 09:25 Patient Disposition: Xfer SNF Discharge Diagnosis: acute hypoxic respiratory failure secondary to pneumonia sepsis due to pneumonia generalized weakness Referrals: Valeri Lerner DO [Primary Care Provider] - 1 Week Discharge Medications: New azithromycin 250 mg Tablet 250 mg PO Q24H Qty: 4 0RF cefuroxime axetil 500 mg Tablet 500 mg PO Q12H Qty: 10 0RF Continued Trulicity 1.5 mg/0.5 mL pen injector 1.5 mg subcut QWEEK Qty: 2 4RF tramadol 50 mg tablet 50 mg PO Q6-8H PRN (Reason: pain) Qty: 20 0RF insulin lispro [Humalog KwikPen Insulin] 100 unit/mL insulin pen 0 unit subcut TIDAC Protocol: Insulin Correction Scale Less than or equal to 110 ---- Give (units): 0 111 to 150 Give (units): 0 151 to 200 Give (units): 2 201 to 250 Give (units): 4 251 to 300 Give (units): 6 301 to 350 Give (units): 8 Greater than 350 Give (units): 10 Call MD if Blood Glucose > : 350 warfarin 3 mg tablet 4.5 mg PO MOTH warfarin 3 mg tablet 3 mg PO SUTUWEFMITESHA (DME) pen needle, diabetic 32 gauge x 5/32 needle See Rx Instructions .ROUTE .MEDSUPPLY Qty: 50 Rx Instructions: As directed cholecalciferol (vitamin D3) 50 mcg (2,000 unit) tablet 50 mcg PO QAM sertraline 50 mg tablet 50 mg PO DAILY fluticasone propionate 50 mcg/actuation spray,suspension 2 spray intranasal DAILY omeprazole 20 mg capsule,delayed release(DR/EC) 20 mg PO BID fluticasone propion-salmeterol 500-50 mcg/dose blister with device 1 inh inhalation BID levothyroxine 100 mcg tablet 100 mcg PO DAILY warfarin 3 mg tablet PO Protocol: Dose Management Condition: Monday (Week One) Dose/Route: 3 mg Instruction: 1 x 3 mg tablet Condition: Monday Dose/Route: 4.5 mg Instruction: 1.5 x 3 mg tablets Condition: Monday Dose/Route: 3 mg Instruction: 1 x 3 mg tablet Condition: Monday Dose/Route: 3 mg Instruction: 1 x 3 mg tablet Condition: Dose/Route: 4.5 mg Instruction: 1.5 x 3 mg tablets Condition: Monday Dose/Route: 4.5 mg Instruction: 1.5 x 3 mg tablets Condition: Monday Dose/Route: 3 mg Instruction: 1 x 3 mg tablet Condition: Monday (Week Two) Dose/Route: 3 mg Instruction: 1 x 3 mg tablet Condition: Monday Dose/Route: 4.5 mg Instruction: 1.5 x 3 mg tablets Condition: Monday Dose/Route: 3 mg Instruction: 1 x 3 mg tablet Condition: Monday Dose/Route: 3 mg Instruction: 1 x 3 mg tablet Condition: Dose/Route: 4.5 mg Instruction: 1.5 x 3 mg tablets Condition: Monday Dose/Route: 3 mg Instruction: 1 x 3 mg tablet Condition: Monday Dose/Route: 3 mg Instruction: 1 x 3 mg tablet Protocol Text: Adjustment Start Date: Monday04/29/22 INR Value: 1.6 INR Date: 04/29/22 Recheck Date: 05/06/22 Additional Instructions: take 4.5mg today then cont reg dosing eat reds to raise inr, no greens for 2 days furosemide 40 mg tablet 40 mg PO QAM (DME) lancets Misc See Rx Instructions .ROUTE .MEDSUPPLY Qty: 100 Rx Instructions: As directed (DME) blood sugar diagnostic Strip See Rx Instructions Not Applicable BID Qty: 10 Rx Instructions: As directed atorvastatin 20 mg tablet 20 mg PO BEDTIME polyethylene glycol 3350 17 gram/dose powder 17 g PO DAILY PRN (Reason: Constipation) docusate sodium 100 mg capsule 100 mg PO BID clotrimazole 1 % cream 1 applic topical BID PRN (Reason: Rash) ipratropium-albuterol 0.5 mg-3 mg(2.5 mg base)/3 mL solution for nebulization 3 ml inhalation Q6H PRN (Reason: Wheezing) metoprolol tartrate 25 mg tablet 12.5 mg PO BID Tab-A-Judtih Multivitamin w-iron 15 mg iron- 400 mcg tablet 1 tab PO QAM Lantus Solostar U-100 Insulin 100 unit/mL (3 mL) insulin pen 25 unit subcut DAILY Qty: 15 5RF metformin 500 mg tablet extended release 24 hr 500 mg PO BID Qty: 60 6RF clonazepam 0.5 mg tablet 0.5 mg PO BEDTIME (DME) Sidestream Misc See Rx Instructions .ROUTE DIRECTED Qty: 1 Rx Instructions: As directed solifenacin 5 mg tablet 5 mg PO QAM Discharge Orders: Discharge Order (Routine); Ordered 06/29/22 Ordered By: Hemanth Mahmood Diet: Diabetic diet Activity on Discharge: As tolerated Stand Alone Forms: Patient Portal Discharge page Care Plan Goals: sepsis due to pneumonia resolved take by mouth antibiotic as prescribed use oxygen 1-2 L to keep finger oximetry 92% Health Concerns: continue all home medications follow blood sugar closely Plan of Treatment: follow up with primary care physician Assessment: as above
--- NOTE | 2022-06-29 15:00 | P.PNIM_ITS ---
Subjective Subjective Date of Service: 06/29/22 Interval History: history obtained via lift manager patient resting comfortably offers no acute complaints, no confusion, no fevers no chills oxygenation improved currently on 1 L of oxygen finger oximetry 95 %, tolerating diet no nausea no vomiting no abdominal pain or diarrhea, no shortness of breath, no chest pain, no cough. Review of Systems Review of Systems: Yes all other systems are reviewed and are negative Physical Exam 2 Vital Signs: Vital Signs: Last Vital Signs Temp 98.8 F 06/29/22 11:08 Pulse 77 06/29/22 11:08 Resp 19 06/29/22 11:08 BP 127/60 06/29/22 11:08 Pulse Ox 96 06/29/22 11:08 O2 Del Method 06/29/22 11:08 O2 Flow Rate 1 06/29/22 11:08 BMI result Body Mass Index 38.2 Const: Other: General? awake dileep rt x3,? resting co mfortably in no ac daren distress.? Nec k? supple, no JVD. CVS? regular rate rhythm, Respirato ry no respiratory distress, no wheez e, no rhonchi. dim inished breath tsering nd at bases image Gastrointestinal a bdomen soft, nonte nder, bowel sounds audible, no guard ing , no rigidity. Extremities no ed hope. left hip no b ruising good range of motion. Neuro nonfocal, moving a ll 4 extremity spe ech clear. Skin no rash Objective Data Active Medications Acetaminophen (Acetaminophen 325 Mg Tablet) 650 mg PO Q6H PRN PRN Reason: Pain, Mild (Pain Scale 1-3) Last Admin: 06/29/22 11:22 Dose: 650 mg Documented By: MARA Albuterol/Ipratropium (Albuterol/Iprat 2.5/0.5mg 3 Ml Ampul.Neb) 3 ml INHALE RQ4H PRN PRN Reason: wheeazing Albuterol/Ipratropium (Albuterol/Iprat 2.5/0.5mg 3 Ml Ampul.Neb) 3 ml INHALE Q6H PRN PRN Reason: Wheezing Atorvastatin Calcium (Atorvastatin Calcium 20 Mg Tablet) 20 mg PO BEDTIME GER Last Admin: 06/28/22 20:20 Dose: 20 mg Documented By: JADE Azithromycin (Azithromycin 250 Mg Tablet) 250 mg PO Q24H [facility] Cefuroxime Axetil (Cefuroxime Axetil 500 Mg Tablet) 500 mg PO Q12H [facility] Last Admin: 06/29/22 09:39 Dose: 500 mg Documented By: MARA Clonazepam (Clonazepam 0.5 Mg Tablet) 0.5 mg PO BEDTIME [facility] Last Admin: 06/28/22 20:20 Dose: 0.5 mg Documented By: JADE Clotrimazole (Clotrimazole 1 % Cream 15 Gm Tube) 1 appl TOPICAL BID PRN; Protocol PRN Reason: Rash Dextrose (Dextrose 50 % 25 Gm/50 Ml Syringe) 25 gm IVPUSH Q15M PRN; Protocol PRN Reason: per Hypoglycemia Standing Ord. Docusate Sodium (Docusate Sodium 100 Mg Capsule) 100 mg PO BID [facility] Last Admin: 06/29/22 09:39 Dose: 100 mg Documented By: MARA Fluticasone Propionate (Fluticasone Propionate Nasal 16 Gm [place]) 2 spray NOSTRIL-B DAILY [facility] Last Admin: 06/29/22 11:25 Dose: Not Given Documented By: MARA Non-Admin Reason: Med Not Available Fluticasone/Vilanterol (Fluticasone/Vilanterol 200/25 Blst.W.Dev) 1 puff INHALE RDAILY [facility] Last Admin: 06/29/22 07:57 Dose: 1 puff Documented By: JOE Furosemide (Furosemide 40 Mg Tablet) 40 mg PO DAILY [facility]; Protocol Last Admin: 06/29/22 09:39 Dose: 40 mg Documented By: MARA Glucose (Glucose Gel 15 Gm Gel..Gram.) 15 gm PO Q15M PRN; Protocol PRN Reason: per Hypoglycemia Standing Ord. Insulin Glargine (Insulin Glargine,Hum.Rec.Anlog 100 Unit/Ml 10 Ml Vial) 25 unit SUBCUT DAILY [facility] Last Admin: 06/29/22 09:38 Dose: 25 unit Documented By: MARA Insulin Human Lispro (Insulin Lispro 100 Unit/Ml 3 Ml Vial) 0 unit SUBCUT QIDACHS [facility]; Protocol Last Admin: 06/29/22 11:48 Dose: 4 unit Documented By: MARA Levothyroxine Sodium (Levothyroxine Sodium 100 Mcg Tablet) 100 mcg PO DAILY@0600 [facility] Last Admin: 06/29/22 06:44 Dose: 100 mcg Documented By: EDELMIRA Melatonin (Melatonin 3 Mg Tablet) 6 mg PO BEDTIME PRN PRN Reason: Insomnia Metformin HCl (Metformin Hcl Er 500 Mg Tab.Er.24h) 500 mg PO BID [facility] Last Admin: 06/29/22 09:39 Dose: 500 mg Documented By: MARA Metoprolol Tartrate (Metoprolol Tartrate 12.5 Mg Halftab) 12.5 mg PO BID [facility]; Protocol Last Admin: 06/29/22 09:40 Dose: 12.5 mg Documented By: MARA Comments: when scanned, message med not on pt profile. Multivitamins/Vitamin C (Multivitamin Tablet) 1 tab PO DAILY [facility] Last Admin: 06/29/22 09:39 Dose: 1 tab Documented By: MARA Omeprazole (Omeprazole 20 Mg Capsule.Dr) 20 mg PO BID@0630,1630 [facility] Last Admin: 06/29/22 06:44 Dose: 20 mg Documented By: EDELMIRA Ondansetron HCl (Ondansetron Hcl 4 Mg/2 Ml Vial) 4 mg IVPUSH Q8H PRN PRN Reason: Nausea and Vomiting Pharmacy Consult (Consult Rx Perform Med Rec) 1 each MISCELLANE ONCE PRN PRN Reason: Consult order Pharmacy Consult (Consult Rx Vancomycin Dosing) 1 each MISCELLANE DAILY PRN PRN Reason: Consult order Polyethylene Glycol (Polyethylene Glycol 3350 17 Gm Powd.Pack) 17 gm PO DAILY PRN PRN Reason: Constipation Sertraline HCl (Sertraline Hcl 50 Mg Tablet) 50 mg PO DAILY [facility] Last Admin: 06/29/22 09:39 Dose: 50 mg Documented By: MARA Sodium Chloride (0.9 % Sodium Chloride Flush 3 Ml Syringe) 3 ml IVFLUSH QSHIFT [facility] Last Admin: 06/29/22 09:41 Dose: 3 ml Documented By: MARA Tolterodine Tartrate (Tolterodine Tartrate La 4 Mg Cap.Er.24h) 4 mg PO DAILY [facility] Last Admin: 06/29/22 09:39 Dose: 4 mg Documented By: MARA Vitamin D (Cholecalciferol (Vitamin D3) 25 Mcg Tablet) 50 mcg PO DAILY [facility] Last Admin: 06/29/22 09:39 Dose: 50 mcg Documented By: MARA Warfarin Sodium (Warfarin Sodium 3 Mg Tablet) 4.5 mg PO MoTh@1800 [facility] Last Admin: 06/27/22 18:17 Dose: 4.5 mg Documented By: IGNACIO-GUTHC Warfarin Sodium (Warfarin Sodium 3 Mg Tablet) 3 mg PO SuTuWeFrSa@1800 [facility] Last Admin: 06/28/22 17:09 Dose: 3 mg Documented By: CHETNA Labs CBC & Chem 7: 06/29/22 05:42 06/29/22 05:42 Labs: Laboratory Results - last 24 hr 06/28/22 06/28/22 06/29/22 16:25 19:08 05:42 MCV MCH MCHC RDW Plt Count MPV Absolute Nucleated RBC Nucleated RBC % (auto) PT INR Anion Gap 12 Estim Creat Clear Calc 62.1 Estimated GFR > 60 POC Glucose 241 H 141 H Random Glucose 120 H Calcium 9.3 06/29/22 06/29/22 06/29/22 05:42 07:18 08:04 MCV 96.2 MCH 30.2 MCHC 31.4 RDW 13.7 Plt Count 147 L MPV 11.7 Absolute Nucleated RBC 0.000 Nucleated RBC % (auto) 0.0 PT 24.2 H INR 2.0 H Anion Gap Estim Creat Clear Calc Estimated GFR POC Glucose 105 Random Glucose Calcium 06/29/22 11:07 MCV MCH MCHC RDW Plt Count MPV Absolute Nucleated RBC Nucleated RBC % (auto) PT INR Anion Gap Estim Creat Clear Calc Estimated GFR POC Glucose 189 H Random Glucose Calcium Assessment and Plan (1) Hypoxia: Status: Acute Plan 86-year-old female with pertinent history of insulin-dependent diabetes mellitus, essential hypertension, anxiety disorder, history of DVT on Coumadin, hypothyroidism, urinary incontinence was brought to the emergency department by her daughter for evaluation of generalized weakness. #.? Acute hypoxemic respiratory failure secondary to Community-acquired pneumonia? hypoxia improved, currently on 1 L of oxygen finger oximetry 95%, WBC normalized patient received IV Rocephin and azithromycin ? ? ? with good response blood cultures are negative, patient is now discharged to rehab facility on by mouth Ceftin and azithromycin to finish a total 7 day course of antibiotic #? sepsis due to? pneumonia present on admission due to leukocytosis, tachycardia and fever resolved ?? ? #.? Generalized weakness / unsteady gait and fall? seen by Physical therapy? they recommend short-term rehab. #. ?Pre-syncope -due to infection, normal orthostatic vital signs #. IDDM with hyperglycemia? continue Lantus? 25 units daily,follow Accu-Cheks with sliding scale insulin before meals and at bedtime, continue metformin. #. Essential hypertension continue metoprolol and follow blood pressure #. History of VTE- on warfarin, INR within therapeutic range, follow PT INR closely while on antibiotics #. Hypothyroidism -continue synthroid #. Urinary incontinence -continue solifenacin #. GERD -on omerprazole #. RENZO -on sertraline and clonazepam Patient need continued inpatient hospitalization for safe discharge to rehab facility Quality Stroke Does the patient have a stroke diagnosis?: No VTE Prior VTE?: Yes VTE Risk Level:: Medical - moderate - high VTE Device Contraindication: Treatment Not Indicated VTE Drug Contraindication: N/A - Med Ordered
[2022-06-29 15:19] VITALS: BP 121/56; PULSE 74; RESP 19; TEMP 36.6; O2SAT 98
[2022-06-29 15:39] LABS: Glucose, Whole Blood 175 mg/dL (60-115)
[2022-06-29] MEDS: Warfarin Sodium 3 MG TABLET PO (16:54)
[2022-06-29] MEDS: Atorvastatin Calcium 20 MG TABLET PO (20:48)
[2022-06-29] MEDS: clonazePAM 0.5 MG TABLET PO (20:48)
[2022-06-29 20:57] LABS: Glucose, Whole Blood 257 mg/dL (60-115)
[2022-06-30] VITALS: BP 166/69; PULSE 83; RESP 17; TEMP 36.4; O2SAT 94
[2022-06-30] MEDS: Azithromycin 250 MG TABLET PO (05:30)
[2022-06-30] MEDS: Levothyroxine Sodium 100 MCG TABLET PO (05:31)
[2022-06-30] MEDS: Omeprazole 20 MG CAPSULE.DR PO ×2 (05:31→17:35)
[2022-06-30 06:08] LABS: Prothrombin Time 23.2 SEC (10.0-13.1)
[2022-06-30 06:38] LABS: Creatinine Clr Calc Pharmacy 56.9; Estimated Glomerular Filt Rate > 60
[2022-06-30] MEDS: Fluticasone/Vilanterol 200/25 BLST.W.DEV 1 PUFF INHALE (07:06)
[2022-06-30 07:09] VITALS: PULSE 75; RESP 18; O2SAT 91
[2022-06-30 07:32] LABS: Glucose, Whole Blood 103 mg/dL (60-115)
[2022-06-30 08:00] VITALS: BP 128/63; PULSE 78; RESP 17; TEMP 37.3; O2SAT 91
[2022-06-30] MEDS: Metoprolol Tartrate 12.5 MG HALFTAB PO (09:29)
[2022-06-30] MEDS: Sertraline HCL 50 MG TABLET PO (09:29)
[2022-06-30] MEDS: Tolterodine Tartrate LA 4 MG CAP.ER.24H PO (09:29)
[2022-06-30] MEDS: Furosemide 40 MG TABLET PO (09:29)
[2022-06-30 09:30] LABS: Vancomycin Trough 3.3 mcg/mL (10.0-20.0)
[2022-06-30] MEDS: Insulin Glargine,Hum.rec.anlog 100 UNIT/ML 10 ML VIAL 25 UNIT SUBCUT (09:30)
[2022-06-30] MEDS: metFORMIN HCl ER 500 MG TAB.ER.24H PO (09:30)
[2022-06-30] MEDS: Cholecalciferol (Vitamin D3) 25 MCG TABLET 50 MCG PO (09:30)
[2022-06-30] MEDS: Multivitamin TABLET 1 TAB PO (09:30)
[2022-06-30] MEDS: Docusate Sodium 100 MG CAPSULE PO (09:30)
[2022-06-30] MEDS: 0.9 % Sodium Chloride Flush 3 ML SYRINGE IVFLUSH (09:31)
[2022-06-30 11:07] LABS: Glucose, Whole Blood 165 mg/dL (60-115)
[2022-06-30 11:39] VITALS: BP 140/63; PULSE 70; RESP 17; TEMP 36.2; O2SAT 90
--- NOTE | 2022-06-30 11:52 | PM.DS ---
DS: Providers Provider Date of Service: 06/30/22 Date of admission: 06/26/22 05:35 Primary care physician: Valeri Lerner DO DS: Diagnosis Discharge Diagnosis (1) Hypoxia: Status: Acute DS: Summary Hospital Course Hospital Course: Date of Service: 06/26/22 Chief Complaint: generalized weakness This is a 86-year-old female with pertinent history of insulin-dependent diabetes mellitus, essential hypertension, anxiety disorder, history of DVT on Coumadin, hypothyroidism, urinary incontinence was brought to the emergency department by her daughter for evaluation of generalized weakness.? As per the daughter, patient has had a cough for the last 1 week.? Also has had intermittent fevers and chills.? Patient with poor appetite and generalized weakness for the last 3 days.? Patient also has had 2 falls on the day of presentation.? Patient was walking from bedroom to her living room apparently, when she fell on the floor hitting her head.? No loss of consciousness.? Patient did say that she felt weak and dizzy prior to the fall.? No rhythmic jerking movement of extremities, no tongue bite.? Patient had a 2nd fall in the evening while she was in her bathroom and she hit her right shoulder.? Patient has had no complaints at this time and denies shortness of breath, chest pain, palpitations, abdominal pain, changes in bowel habits. In the emergency department, patient requiring 3 L supplemental oxygen.? Imaging was concerning for right-sided consolidation. hospital course 86-year-old female with pertinent history of insulin-dependent diabetes mellitus, essential hypertension, anxiety disorder, history of DVT on Coumadin, hypothyroidism, urinary incontinence was brought to the emergency department by her daughter for evaluation of generalized weakness. #.? Acute hypoxemic respiratory failure secondary to Community-acquired pneumonia hypoxia improved, currently on 1 L of oxygen finger oximetry 95%, WBC normalized patient received IV Rocephin and azithromycin with good response blood cultures are negative, patient is now discharged to rehab facility on by mouth Ceftin and azithromycin to finish a total 7 day course of antibiotic #? sepsis due to? pneumonia present on admission due to leukocytosis, tachycardia and fever resolved ?? ? #.? Generalized weakness / unsteady gait and fall? seen by Physical therapy? they recommend short-term rehab. #. ?Pre-syncope -due to infection, normal orthostatic vital signs #. IDDM with hyperglycemia? continue Lantus? 25 units daily,follow Accu-Cheks with sliding scale insulin before meals and at bedtime, continue metformin. #. Essential hypertension continue metoprolol and follow blood pressure #. History of VTE- on warfarin, INR within therapeutic range, follow PT INR closely while on antibiotics #. Hypothyroidism -continue synthroid #. Urinary incontinence -continue solifenacin #. GERD -on omerprazole #. RENZO -on sertraline and clonazepam is Time Spent with Patient Time attestation: Total time spent providing and/or coordinating discharge services: Discharge coordination time: Greater than 30 minutes Quality: Safe Use of Opioids Does Pt have an Active Cancer Diagnosis on the Problem List?: No Quality: Stroke Does the patient have a stroke diagnosis?: No Physical Exam Vital Signs: Vital Signs: Last Vital Signs Temp 97.1 F 06/30/22 11:39 Pulse 70 06/30/22 11:39 Resp 17 06/30/22 11:39 BP 140/63 H 06/30/22 11:39 Pulse Ox 90 L 06/30/22 11:39 O2 Del Method 06/30/22 11:39 O2 Flow Rate 1.0 06/30/22 08:00 BMI result Body Mass Index 38.2 Const: Other: General? awake alert x3,? resting comfortably in no acute distress.? Neck? supple, no JVD. CVS? regular rate rhythm, Respiratory no respiratory distress, no wheeze, no rhonchi. diminished breath sound at bases image Gastrointestinal abdomen soft, nontender, bowel sounds audible, no guarding , no rigidity. Extremities no edema. left hip no bruising good range of motion. Neuro nonfocal, moving all 4 extremity speech clear. Skin no rash DS: Data Data Completed and Pending Labs on day of discharge: Laboratory Results - last 24 hr 06/29/22 06/29/22 06/30/22 15:17 20:53 05:32 PT 23.2 H INR 2.0 H Creatinine Estim Creat Clear Calc Estimated GFR POC Glucose 175 H 257 H Vancomycin Trough 06/30/22 06/30/22 06/30/22 05:32 07:27 08:49 PT INR Creatinine 0.85 Estim Creat Clear Calc 56.9 Estimated GFR > 60 POC Glucose 103 Vancomycin Trough 3.3 L 06/30/22 11:04 PT INR Creatinine Estim Creat Clear Calc Estimated GFR POC Glucose 165 H Vancomycin Trough Preliminary micro results at discharge 06/26/22 04:16 Blood Culture - Preliminary Blood - Venous No growth after 48 hours. Discharge Plan Discharge Anticipated Discharge Date/Time: 06/29/22 09:25 Patient Disposition: Xfer SNF Discharge Diagnosis: acute hypoxic respiratory failure secondary to pneumonia sepsis due to pneumonia generalized weakness Referrals: Valeri Lerner DO [Primary Care Provider] - 1 Week Discharge Medications: New azithromycin 250 mg Tablet 250 mg PO Q24H Qty: 4 0RF cefuroxime axetil 500 mg Tablet 500 mg PO Q12H Qty: 10 0RF Continued Trulicity 1.5 mg/0.5 mL pen injector 1.5 mg subcut QWEEK Qty: 2 4RF tramadol 50 mg tablet 50 mg PO Q6-8H PRN (Reason: pain) Qty: 20 0RF insulin lispro [Humalog KwikPen Insulin] 100 unit/mL insulin pen 0 unit subcut TIDAC Protocol: Insulin Correction Scale Less than or equal to 110 ---- Give (units): 0 111 to 150 Give (units): 0 151 to 200 Give (units): 2 201 to 250 Give (units): 4 251 to 300 Give (units): 6 301 to 350 Give (units): 8 Greater than 350 Give (units): 10 Call MD if Blood Glucose > : 350 warfarin 3 mg tablet 4.5 mg PO MOTH warfarin 3 mg tablet 3 mg PO SUTUWEFRSA (DME) pen needle, diabetic 32 gauge x 5/32 needle See Rx Instructions .ROUTE .MEDSUPPLY Qty: 50 Rx Instructions: As directed cholecalciferol (vitamin D3) 50 mcg (2,000 unit) tablet 50 mcg PO QAM sertraline 50 mg tablet 50 mg PO DAILY fluticasone propionate 50 mcg/actuation spray,suspension 2 spray intranasal DAILY omeprazole 20 mg capsule,delayed release(DR/EC) 20 mg PO BID fluticasone propion-salmeterol 500-50 mcg/dose blister with device 1 inh inhalation BID levothyroxine 100 mcg tablet 100 mcg PO DAILY warfarin 3 mg tablet PO Protocol: Dose Management Condition: Monday (Week One) Dose/Route: 3 mg Instruction: 1 x 3 mg tablet Condition: Monday Dose/Route: 4.5 mg Instruction: 1.5 x 3 mg tablets Condition: Monday Dose/Route: 3 mg Instruction: 1 x 3 mg tablet Condition: Monday Dose/Route: 3 mg Instruction: 1 x 3 mg tablet Condition: Dose/Route: 4.5 mg Instruction: 1.5 x 3 mg tablets Condition: Monday Dose/Route: 4.5 mg Instruction: 1.5 x 3 mg tablets Condition: Monday Dose/Route: 3 mg Instruction: 1 x 3 mg tablet Condition: Monday (Week Two) Dose/Route: 3 mg Instruction: 1 x 3 mg tablet Condition: Monday Dose/Route: 4.5 mg Instruction: 1.5 x 3 mg tablets Condition: Monday Dose/Route: 3 mg Instruction: 1 x 3 mg tablet Condition: Monday Dose/Route: 3 mg Instruction: 1 x 3 mg tablet Condition: Dose/Route: 4.5 mg Instruction: 1.5 x 3 mg tablets Condition: Monday Dose/Route: 3 mg Instruction: 1 x 3 mg tablet Condition: Monday Dose/Route: 3 mg Instruction: 1 x 3 mg tablet Protocol Text: Adjustment Start Date: Monday04/29/22 INR Value: 1.6 INR Date: 04/29/22 Recheck Date: 05/06/22 Additional Instructions: take 4.5mg today then cont reg dosing eat reds to raise inr, no greens for 2 days furosemide 40 mg tablet 40 mg PO QAM (DME) lancets Misc See Rx Instructions .ROUTE .MEDSUPPLY Qty: 100 Rx Instructions: As directed (DME) blood sugar diagnostic Strip See Rx Instructions Not Applicable BID Qty: 10 Rx Instructions: As directed atorvastatin 20 mg tablet 20 mg PO BEDTIME polyethylene glycol 3350 17 gram/dose powder 17 g PO DAILY PRN (Reason: Constipation) docusate sodium 100 mg capsule 100 mg PO BID clotrimazole 1 % cream 1 applic topical BID PRN (Reason: Rash) ipratropium-albuterol 0.5 mg-3 mg(2.5 mg base)/3 mL solution for nebulization 3 ml inhalation Q6H PRN (Reason: Wheezing) metoprolol tartrate 25 mg tablet 12.5 mg PO BID Tab-A-Judith Multivitamin w-iron 15 mg iron- 400 mcg tablet 1 tab PO QAM Lantus Solostar U-100 Insulin 100 unit/mL (3 mL) insulin pen 25 unit subcut DAILY Qty: 15 5RF metformin 500 mg tablet extended release 24 hr 500 mg PO BID Qty: 60 6RF clonazepam 0.5 mg tablet 0.5 mg PO BEDTIME (DME) Sidestream Misc See Rx Instructions .ROUTE DIRECTED Qty: 1 Rx Instructions: As directed solifenacin 5 mg tablet 5 mg PO QAM Discharge Orders: Discharge Order (Routine); Ordered 06/30/22 Ordered By: Hemanth Mahmood Diet: Diabetic diet Activity on Discharge: As tolerated Stand Alone Forms: Patient Portal Discharge page Care Plan Goals: sepsis due to pneumonia resolved take by mouth antibiotic as prescribed use oxygen 1 L to keep finger oximetry 92% Health Concerns: continue all home medications follow blood sugar closely Plan of Treatment: follow up with primary care physician Assessment: as above
[2022-06-30] MEDS: Insulin Lispro 100 UNIT/ML 3 ML VIAL SUBCUT (12:01)
[2022-06-30 13:31] LABS: COVID-19 Test Negative (Negative); IDNOW Serial# 9DB6401D
--- NOTE | 2022-06-30 15:17 | MHC.CM.PN ---
PT TO DC TODAY TO STR AT [facility] THEY HAVE CONFIRMED THEY NOW HAVE INSURANCE AUTH CM CALLED PTS DAUGHTER ANTHONY [phone], SHE IS AWARE PT WILL DC TO STR TODAY AT 1800 HOURS VIA BLS SHE REPORTS SHE WILL MEET PT AT SNF TO ASSIST IN HER TRANSITION
[2022-06-30 15:23] LABS: Glucose, Whole Blood 139 mg/dL (60-115)
[2022-06-30 15:28] VITALS: BP 135/60; PULSE 74; RESP 18; TEMP 36.7; O2SAT 92
[2022-06-30] MEDS: Warfarin Sodium 3 MG TABLET 4.5 MG PO (17:35)
== END 2022-06-30 18:44 | disposition skilled nursing facility (03) | DRG 195 ==
LOC: HO.ED 06-26 01:35 → HO.EDOVER 06-26 05:46 → HO.S3 06-28 14:37
PROVIDERS: Internal Medicine; Admitting Provider Student in an Organized Health Care Education/Training Program; Emergency Provider Emergency Medicine Emergency Medical Services; PCP Family Medicine; Visit Provider Hospitalist
DX: J18.9 Pneumonia, unspecified organism (principal); E11.42 Type 2 diabetes mellitus with diabetic polyneuropathy; R29.6 Repeated falls; F41.9 Anxiety disorder, unspecified; I10 Essential (primary) hypertension; R32 Unspecified urinary incontinence; E11.65 Type 2 diabetes mellitus with hyperglycemia; Z20.822 Contact with and (suspected) exposure to COVID-19; Z86.718 Personal history of other venous thrombosis and embolism; Z91.81 History of falling; Z91.013 Allergy to seafood; Z88.5 Allergy status to narcotic agent; Z88.6 Allergy status to analgesic agent; Z79.4 Long term (current) use of insulin; Z79.01 Long term (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; Z79.51 Long term (current) use of inhaled steroids; Z79.84 Long term (current) use of oral hypoglycemic drugs; Z79.899 Other long term (current) drug therapy
CPT/HCPCS: 36415; 70450; 71045; 72125; 73030; 74177; 80048; 80053; 80202; 81001; 82077; 82565; 82947; 83605; 85025; 85027; 85610; 85730; 87040; 87147; 87205; 87502; 87635; 93005; 96365; 96375; 97162; 99285; J0456; J0696; J3370; Q9967

== ENCOUNTER → 2022-08-18 13:04 | Outpatient (BNVA) | payer OTHER, SELFPAY | PROVIDERS: PCP Family Medicine; Visit Provider Internal Medicine | DX: I48.0 Paroxysmal atrial fibrillation (principal); Z79.01 Long term (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; Z51.81 Encounter for therapeutic drug level monitoring | CPT/HCPCS: 85610; 99211 ==

== ENCOUNTER → 2022-08-29 09:44 | Outpatient (BNVA) | payer OTHER, SELFPAY | PROVIDERS: PCP Family Medicine; Visit Provider Internal Medicine | DX: I48.0 Paroxysmal atrial fibrillation (principal); Z79.01 Long term (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; Z51.81 Encounter for therapeutic drug level monitoring | CPT/HCPCS: 85610; 99211 ==

== ENCOUNTER → 2022-09-12 10:12 | Outpatient (BNVA) | payer OTHER, SELFPAY | PROVIDERS: PCP Family Medicine; Visit Provider Internal Medicine | DX: I48.0 Paroxysmal atrial fibrillation (principal); Z79.01 Long term (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; Z51.81 Encounter for therapeutic drug level monitoring | CPT/HCPCS: 85610; 99211 ==

== ENCOUNTER 2022-09-20 09:49 | Inpatient (IN) | payer OTHER, MEDICAID, SELFPAY ==
[2022-09-20] VITALS (7 sets, daily range): BP systolic 118–141; BP diastolic 54–87; PULSE 63–105; RESP 17–22; TEMP 36.8–38.2; O2SAT 74–99; BMI 40.1
--- NOTE | ~2022-09-20 | XR_ITS ---
EXAMINATION: XR CHEST CLINICAL INFORMATION: Shortness of breath COMPARISON: 09/20/2022 TECHNIQUE: Frontal view of the chest was obtained. FINDINGS: Diffuse bronchial thickening. Streaky opacities in the lower lungs bilaterally, more notable on the left similar to prior. Stable cardiomediastinal silhouette. No pleural effusion or pneumothorax. No acute osseous abnormalities. XR/XR chest 1V IMPRESSION: * Diffuse bronchial wall thickening suggestive of bronchitis. * Streaky opacities in the lower lungs bilaterally, more notable on the left, similar to prior. Atelectasis or infiltrate could have this appearance, particularly at the left lung base.
--- NOTE | ~2022-09-20 | CT_ITS ---
EXAMINATION: CT ABDOMEN AND PELVIS WITH CONTRAST CLINICAL INFORMATION: Nausea, vomiting and abdominal COMPARISON: 06/26/2022 TECHNIQUE: Multidetector volumetric images were obtained from the superior aspect of the liver through the pubic symphysis following administration 85 mL of Omnipaque 350 intravenous contrast. Sagittal and coronal reformatted images were obtained on the technologist's workstation. Oral contrast: No This CT examination was performed using dose optimization techniques as appropriate, variously including the following: *Automated exposure control *Adjustment of mA and/or kV according to patient size (this includes techniques or standardized protocols for targeted exams where dose is matched to indication/reason for exam; i.e. extremities or head) *Use of iterative reconstruction technique DLP: 925 mGy-cm FINDINGS: LUNG BASES: Bronchial thickening and scattered endobronchial secretions present. No parenchymal consolidation. Bibasilar subsegmental atelectasis. LIVER, GALLBLADDER, AND BILIARY TREE: The liver is normal in size, shape, and attenuation. No focal hepatic lesion or biliary ductal dilatation is present. Cholelithiasis. No pericholecystic inflammation. PANCREAS: Fatty atrophy. No mass or inflammation. SPLEEN: Unremarkable. ADRENAL GLANDS: Unremarkable. KIDNEYS AND URETERS: The kidneys are normal in size, shape, and attenuation. Simple cysts present bilaterally. No follow-up required. No hydronephrosis, hydroureter, or calculi seen. No perinephric stranding. BLADDER: Unremarkable. GASTROINTESTINAL TRACT: Scattered colonic diverticula, most concentrated within sigmoid colon. No evidence of diverticulitis. Normal appendix. Stomach and small bowel unremarkable. ABDOMINAL WALL: No significant hernia is appreciated. LYMPH NODES: Normal. VASCULAR: Normal caliber aorta. Mild atherosclerosis. IVC filter present at the level of L4. PELVIC VISCERA: Uterus and adnexa unremarkable. OSSEOUS STRUCTURES: No acute or suspicious osseous abnormalities. Degenerative changes throughout the spine, and bilateral hips. CT/CT abdomen pelvis w IV con IMPRESSION: * No acute findings within the abdomen or pelvis to explain the patient's symptomatology. * Cholelithiasis. * Scattered colonic diverticula without evidence of diverticulitis.
--- NOTE | ~2022-09-20 | XR_ITS ---
EXAMINATION: XR CHEST CLINICAL INFORMATION: Cough and shortness of breath COMPARISON: 06/26/2022 TECHNIQUE: 2 views of the chest were obtained. FINDINGS: Patchy infiltrate left base. Minor atelectasis right base. Recommend continued PA lateral follow-up. Heart and pulmonary vessels are normal. No pleural effusions. There is advanced degenerative change in the right shoulder. XR/XR chest 2V IMPRESSION: Bibasilar infiltrates left greater than right. Recommend short-term follow-up.
--- NOTE | 2022-09-20 10:29 | ECG_ITS ---
Test Reason : N/V Blood Pressure : / mmHG Vent. Rate : 089 BPM Atrial Rate : 089 BPM P-R Int : 316 ms QRS Dur : 088 ms QT Int : 308 ms P-R-T Axes : 066 029 090 degrees QTc Int : 374 ms Sinus rhythm with 1st degree A-V block with frequent Premature ventricular complexes Nonspecific T wave abnormality Abnormal ECG When compared with ECG of 26-JUN-2022 06:19, Premature ventricular complexes are now Present Referred By: Alley Ayala Electronically Signed By:MANE MULLIGAN
[2022-09-20 11:40] LABS: MANUAL DIFF FLAG NO
[2022-09-20 11:43] LABS: Basophils Percent Auto 0.2 % (0-2); Hematocrit 39.2 % (37.0-47.0); Hemoglobin 12.6 g/dl (12.0-16.0); Imm Gran Abs Auto 0.02 X10*3/uL (0.00-0.03); Imm Gran Pct Auto 0.2 % (0.0-0.4); Lymphocytes Absolute Auto 0.9 X10*3/uL (1.2-4.9); Lymphocytes Percent Auto 9.6 % (20-40); Mean Corpuscular HGB Conc 32.1 g/dl (31.0-35.0); Mean Corpuscular Volume 96.6 fL (80.0-98.0); Mean Platelet Volume 11.2 fL (9.4-12.3); Monocytes Absolute Auto 0.4 X10*3/uL (0.1-1.2); Monocytes Percent Auto 4.4 % (2-11); Neutrophils Absolute Auto 7.7 x10*3/uL (2.0-8.3); Neutrophils Percent Auto 85.6 % (45-73); Platelet Count 127 X10*3/uL (160-400); Red Blood Count 4.06 X10*6/uL (4.20-5.50); Red Cell Distribution Width 13.7 % (11.0-16.0); White Blood Count 9.1 X10*3/uL (4.8-10.8)
--- NOTE | 2022-09-20 11:46 | PC.NURSE ---
pt's grand-son Arnaud([phone]) at bedside earlier. grand-son states that pt's son Samuel ([phone]) is the first corsets salesperson then himself after for any status updates.
[2022-09-20 11:47] LABS: INTERNATIONAL NORM RATIO 1.6 (0.9-1.1); Prothrombin Time 18.3 SEC (10.0-13.1)
[2022-09-20 11:53] LABS: Lactic Acid 1.1 mmol/L (0.5-2.0)
[2022-09-20 11:58] LABS: Alanine Aminotransferase 21 U/L (0-31); Albumin Level 3.7 g/dL (3.5-5.0); Alkaline Phosphatase 105 U/L (39-117); Anion Gap 12 (12-20); Aspartate Amino Transferase 24 U/L (5-31); Bilirubin Total 0.8 mg/dL (0.0-1.0); Blood Urea Nitrogen 22 mg/dL (9-16); Calcium 9.1 mg/dL (8.4-10.2); Carbon Dioxide 30 mmol/L (22-29); Chloride 99 mmol/L (96-108); Creatinine Clr Calc Pharmacy 40.4; Estimated Glomerular Filt Rate 48; Glucose Random 253 mg/dL (60-115); Lipase 55 U/L (8-78); Magnesium 1.6 mg/dL (1.6-2.6); Potassium 3.8 mmol/L (3.3-5.1); Sodium 137 mmol/L (135-145); Total Protein 7.1 g/dL (6.5-8.0)
[2022-09-20 12:03] LABS: B Type Natriuretic Peptide 421 pg/mL (<100)
[2022-09-20 12:19] LABS: TSH reflex Free T4 0.75 uIU/mL (0.32-4.0)
[2022-09-20 12:32] LABS: Influenza A PCR NEGATIVE (Negative); Influenza B PCR NEGATIVE (Negative); Resp Syncy Virus RNA Qual PCR NEGATIVE (Negative); SARS COV2 PCR INHOUSE NEGATIVE (Negative)
--- NOTE | 2022-09-20 12:41 | ED.ABDPAIN ---
HPI - Abdominal Pain General Chief Complaint: Nausea/Vomiting/Diarrhea Stated Complaint: ABD PAIN WITH N/V/D SINCE T-1 Time Seen by Provider: 09/20/22 10:19 Source: patient and EMS Mode of arrival: EMS Limitations: language barrier ([place]-speaking) and other (Patient is a poor historian) History of Present Illness HPI narrative: 87-year-old female with a past medical history of obesity, anxiety, CAD, CVA, DVT s/p IVC Filter, diabetes, HTN, HLD, carotid stenosis, hypothyroid, oa, proximal AFib, urinary incontinence reports she uses intermittent nasal cannula oxygen at home who is [place]-speaking presenting to the ED via EMS with complaints of nausea/vomiting/diarrhea that started yesterday with associated diffuse abdominal pain worse today. She also reports a productive cough for a few weeks with some shortness of breath. Reports associated chills. She denies any measured fevers, dizziness, chest pain, back pain, dysuria, hematuria, abnormal vaginal discharge, lower extremity edema or calf tenderness, recent travel or sick contacts, possible bad food exposure, recent antibiotic usage or any other symptoms complaints or concerns at this time. MD elicited complaint: abdominal pain Pertinent past history: other (See above) Onset (ago): day(s) (Abdominal pain started today unsure when the cough/shortness of breath and sputum production started) Pain Consistency: constant Location: diffuse Severity: moderate Quality: aching Radiation: none Migration to: no migration Exacerbating factors: nothing Relieving factors: nothing Associated symptoms: nausea, vomiting, diarrhea, chills and other (Along with productive cough and shortness of breath) Related Data Home Medications Medication Instructions Recorded Confirmed atorvastatin 20 mg tablet 20 mg PO BEDTIME 05/21/20 08/29/22 blood sugar diagnostic #10 ea 05/21/20 04/11/22 cholecalciferol (vitamin D3) 50 50 mcg PO QAM 05/21/20 08/29/22 mcg (2,000 unit) tablet clotrimazole 1 % topical cream 1 applic topical BID PRN Rash 05/21/20 08/29/22 docusate sodium 100 mg capsule 100 mg PO BID 05/21/20 08/29/22 fluticasone 500 mcg-salmeterol 50 1 inh inhalation BID 05/21/20 08/29/22 mcg/dose blistr powdr for inhalation fluticasone propionate 50 2 spray intranasal DAILY 05/21/20 08/29/22 mcg/actuation nasal spray,suspension furosemide 40 mg tablet 40 mg PO QAM 05/21/20 08/29/22 ipratropium 0.5 mg-albuterol 3 mg 3 ml inhalation Q6H PRN Wheezing 05/21/20 08/29/22 (2.5 mg base)/3 mL nebulization soln lancets #100 ea 05/21/20 04/11/22 levothyroxine 100 mcg tablet 100 mcg PO DAILY 05/21/20 08/29/22 omeprazole 20 mg capsule,delayed 20 mg PO BID 05/21/20 08/29/22 release pen needle, diabetic 32 gauge x #50 ea 05/21/20 04/11/22 polyethylene glycol 3350 17 17 g PO DAILY PRN Constipation 05/21/20 08/29/22 gram/dose oral powder sertraline 50 mg tablet 50 mg PO DAILY 05/21/20 08/29/22 metoprolol tartrate 25 mg tablet 12.5 mg PO BID 12/17/20 08/29/22 clonazepam 0.5 mg tablet 0.5 mg PO BEDTIME 04/19/21 08/29/22 nebulizers (Sidestream misc) #1 ea 05/14/21 04/11/22 multivitamin-iron sulfate 15 1 tab PO QAM 12/15/21 08/29/22 mg-folic acid 400 mcg tablet (Tab-A-Judith Multivitamin w-iron) solifenacin 5 mg tablet 5 mg PO QAM 04/11/22 08/29/22 insulin lispro 100 unit/mL 0 unit subcut TIDAC 06/26/22 08/29/22 subcutaneous pen (Humalog KwikPen (U-100) Insulin) warfarin 3 mg tablet 3 mg PO SUTUWEFRSA 06/26/22 09/12/22 warfarin 3 mg tablet 4.5 mg PO MOTH 06/26/22 09/12/22 Previous Rx's Medication Instructions Recorded insulin glargine 100 unit/mL (3 25 unit (0.25 mL) subcut DAILY #15 12/15/21 mL) subcutaneous pen (Lantus mL Solostar U-100 Insulin) tramadol 50 mg tablet 50 mg PO Q6-8H PRN pain #20 tabs 12/21/21 dulaglutide 1.5 mg/0.5 mL 1.5 mg (0.5 mL) subcut QWEEK #2 mL 04/18/22 subcutaneous pen injector ([facility]) metformin 500 mg tablet,extended 500 mg PO BID #60 tabs 07/06/22 release 24 hr Allergies Allergy/AdvReac Type Severity Reaction Status Date / Time acetaminophen [Tylenol] Allergy Intermediate rash Verified 09/12/22 10:17 aspirin [Aspirin] Allergy Mild Gastrointestinal Verified 09/12/22 10:17 Upset oxycodone [From PERCOCET] Allergy Unknown PALPITATION Verified 09/12/22 10:17 S From Robitussin Cough & Cold Allergy Intermediate hives Uncoded 09/12/22 10:17 Robitussin Cold Cough+ Chest Allergy Intermediate hives Uncoded 09/12/22 10:17 SEAFOOD Allergy Intermediate hives Uncoded 09/12/22 10:17 shellfish Allergy Intermediate hives Uncoded 09/12/22 10:17 Review of Systems Review of Systems Constitutional : No Weight loss, No Fever, + Chills, No Night Sweats, + Fatigue, + Malaise ENT/Mouth : No Hearing loss, No Ear Pain, No Nasal Congestion, No Sinus Pain, No Hoarseness, No sore throat, No Rhinorrhea, No Swallowing Difficulty Eyes: No Eye Pain, No Swelling, No Redness, No Foreign Body, No Discharge, No Vision Changes Cardiovascular : No Chest Pain, + SOB, No Dyspnea on Exertion, No Orthopnea, No Edema, No Palpitations Respiratory : + Cough,+ Sputum, No Wheezing, No Smoke Exposure, + Dyspnea Gastrointestinal : + Nausea, + Vomiting, + Diarrhea, No Constipation, + abdominal Pain, No Hematochezia, No Melena Genitourinary : no irregular bleeding, No Dysuria, No Urinary Frequency, No Hematuria, No Urinary Incontinence, No Urgency, No Flank Pain, No Urinary Flow Changes, No Hesitancy Musculoskeletal : No joint pain, + Myalgias, No Joint Swelling Skin : No Skin Lesions, No rash Neuro : No Weakness, No Numbness, No Paresthesias, No Loss of Consciousness, No Dizziness, No Headache Psych : No Anxiety/Panic, No Depression, No SI/HI/AH/VH, No Social Issues, Heme/Lymph: No Bruising, No Bleeding,No Lymphadenopathy Endocrine : No Polyuria, No Polydipsia, No Temperature Intolerance Yes all other systems are reviewed and are negative [facility] Past Medical History Attestation statement: The following information was validated with the patient. Source: old records reviewed and nursing notes reviewed Medical History (Updated 09/20/22 @ 14:38 by Joanne Levi NP) Anxiety disorder Coronary artery disease Deep vein thrombosis Essential hypertension Hearing loss History of cerebrovascular accident Hyperlipemia Hypothyroidism Multiple falls Obesity due to excess calories Osteoarthritis Osteopenia Senile cataract of left eye Type 2 diabetes mellitus with diabetic polyneuropathy Urinary incontinence Surgical History History of bilateral tubal ligation Family History Family History Father Heart disease CVD (cardiovascular disease) Mother Diabetes Social History Social History Household Members: Family Housing: House Do you presently have visiting nurse or other home services: Yes Alcohol intake: never Patient Tobacco Use Status: Never used Tobacco Advance Directives: Yes Advance Directives on File: Yes Advance Directives Date on File: 07/01/22 service: No Current occupational status: unemployed Sexual orientation: Straight/Heterosexual Gender identity: Female Physical Exam ED Vital Signs: Vital Signs - 24 hr 09/20/22 10:12 09/20/22 10:31 09/20/22 12:20 Temperature 98.2 F 98.2 F 98.4 F Pulse Rate 100 100 84 Respiratory Rate 18 18 22 H Blood Pressure 140/54 H 140/54 H 141/66 H Pulse Oximetry 93 74 L 97 Oxygen Delivery Method Nasal Cannula Room Air Nasal Cannula Oxygen Flow Rate 2 2 09/20/22 13:19 09/20/22 13:52 09/20/22 14:16 Temperature 100.1 F 100.8 F H Pulse Rate 83 105 H Respiratory Rate 22 H 18 Blood Pressure 132/63 Pulse Oximetry 94 Oxygen Delivery Method Nasal Cannula Oxygen Flow Rate 2 BMI result Body Mass Index 40.1 vital signs have been reviewed as normal and appeared to be correct. Blood pressure 140/54. Heart rate normal. Respiration rate normal. Temperature normal. Oxygen saturation hypoxic at 88-92% on RA placed on 2L of NC oxygen Appearance: Alert. Oriented X3. In acute respiratory distress. Head: Normal external exam. Normocephalic. Atraumatic. Eyes: PERRLA. EOMI. Conjunctiva and sclera normal. Eyelids normal. ENT: EAC normal. TM's Normal. Pharynx normal. Uvula midline. Moist mucous membranes. No lesions/ulcerations or masses noted on the tongue. Normal voice. No trismus noted. No drooling noted. No muffled voice noted. Neck: Normal inspection. Neck supple. FROM. No adenopathy. Thyroid Normal. No tracheal deviation noted. No crepitus is noted. No meningeal signs. No neck mass noted. No signs of trauma noted. CVS: Normal heart rate and rhythm. Heart sound normal. Pulses normal throughout. No murmurs/rales/gallops. Respiratory: In acute respiratory distress with decreased breath sounds. Patient is using accessory muscles. No obvious rales/rhonchi or wheezes noted. Chest is nontender. No crepitus is noted. No signs of trauma noted. Abdomen: Soft and mild tenderness diffusely. Bowel sounds normal in all 4 quadrants. No distention noted. No organomegaly noted. No visible injury noted. Back: No CVA tenderness. Full range of motion noted. Nontender. No signs of trauma. Patient neuro intact bilaterally and distally on all 4 extremities. Patient's reflexes intact bilaterally and distally on all 4 extremities. No rashes/lesion/induration/fluctuance or signs of infection noted. Skin: Skin warm and dry. Normal skin color. Normal skin turgor. No rashes/lesions/lacerations noted. Extremities: No lower extremity edema. No calf tenderness is noted. Extremities exhibit normal range of motion and nontender. Neuro: Oriented X 3. No motor deficit. No sensory deficit. Reflexes normal. Normal steady gait. No focal neuro deficits noted. CN's II-XII intact bilaterally? Vascular: + radial pulses/+ 2 distal pedal pulses/+2 dorsalis pedis b/l. Normal cap refill. No cyanosis noted to upper extremity nails and lower extremity toes nails. Course Course Course Narrative: 10:30am - 87-year-old female with a past medical history of obesity, anxiety, CAD, CVA, DVT s/p IVC Filter, diabetes, HTN, HLD, carotid stenosis, hypothyroid, oa, proximal AFib, urinary incontinence reports she uses intermittent nasal cannula oxygen at home who is [place]-speaking presenting to the ED via EMS with complaints of nausea/vomiting/diarrhea that started yesterday with associated diffuse abdominal pain worse today. She also reports a productive cough for a few weeks with some shortness of breath. Reports associated chills. Plan: Will obtain labs, chest x-ray, CT scan abdomen pelvis with IV contrast, UA. Provide a breathing treatment and re-evaluate. Reevaluation(s) Reevaluation #1: Labs reviewed - Platelet count 127, 000 - carbon dioxide 30. - BUN 22. - random glucose 253. - BNP 421. - patient negative for COVID/RSV/flu. Otherwise all other labs are within normal limits. Imaging is still pending at this time. Will re-evaluate. Time: 13:30 Reevaluation #2: Chest x-ray finally returned at this time and revealed bibasilar infiltrates left greater than right. Therefore at this time patient will be receiving 2 g of IV Rocephin for pneumonia with hypoxia. Awaiting CT scan abdomen pelvis. Patient will need to be admitted. Family at bedside understand agree with this plan along with patient. Time: 13:41 Reevaluation #3: CT scan abdomen pelvis with IV contrast negative for any acute processes. Therefore at this time patient will be admitted for pneumonia with hypoxia with gastroenteritis. Patient with family at bedside understand agree this plan. Joanne Levi the nurse practitioner with admit at this time. Time: 14:46 Medical Decision Making Admission/Observation Consideration of admission/observation: Escalation of care including admission/observation considered (Patient will be admitted) Consult Healthcare Provider Management of the patient was discussed with: Hospitalist Lab Data [facility] Lab Attestation statement: I reviewed the patient's lab results. 09/20/22 11:35 09/20/22 11:34 Labs: Lab Results 09/20/22 09/20/22 09/20/22 Range/Units 11:34 11:34 11:34 WBC (4.8-10.8) X10*3/uL RBC (4.20-5.50) X10*6/uL Hgb (12.0-16.0) g/dl Hct (37.0-47.0) % MCV (80.0-98.0) fL MCH (27.0-33.0) pg MCHC (31.0-35.0) g/dl RDW (11.0-16.0) % Plt Count (160-400) X10*3/uL MPV (9.4-12.3) fL Immature Gran % (Auto) (0.0-0.4) % Neut % (Auto) (45-73) % Lymph % (Auto) (20-40) % Pine % (Auto) (2-11) % Eos % (Auto) (0-4) % Baso % (Auto) (0-2) % Lymph # (Auto) (1.2-4.9) X10*3/uL Pine # (Auto) (0.1-1.2) X10*3/uL Eos # (Auto) (0.0-0.4) X10*3/uL Baso # (Auto) (0.0-0.2) X10*3/uL Abs Immat Gran (auto) (0.00-0.03) X10*3/uL Absolute Neuts (auto) (2.0-8.3) x10*3/uL Absolute Nucleated RBC (0.0-0.012) X10*3/uL Nucleated RBC % (auto) (0.0-0.2) /100WBC PT 18.3 H (10.0-13.1) SEC INR 1.6 H (0.9-1.1) Sodium 137 (135-145) mmol/L Potassium 3.8 (3.3-5.1) mmol/L Chloride 99 (96-108) mmol/L Carbon Dioxide 30 H (22-29) mmol/L Anion Gap 12 (12-20) BUN 22 H (9-16) mg/dL Creatinine 1.08 (0.5-1.4) mg/dL Estim Creat Clear Calc 40.4 Estimated GFR 48 Random Glucose 253 H (60-115) mg/dL Lactic Acid 1.1 (0.5-2.0) mmol/L Calcium 9.1 (8.4-10.2) mg/dL Magnesium 1.6 (1.6-2.6) mg/dL Total Bilirubin 0.8 (0.0-1.0) mg/dL AST 24 (5-31) U/L ALT 21 (0-31) U/L Alkaline Phosphatase 105 (39-117) U/L B-Natriuretic Peptide (<100) pg/mL Total Protein 7.1 (6.5-8.0) g/dL Albumin 3.7 (3.5-5.0) g/dL Lipase 55 (8-78) U/L TSH (0.32-4.0) uIU/mL Influenza Type A (PCR) (Negative) Influenza Type B (PCR) (Negative) RSV RNA Qual (PCR) (Negative) SARS-CoV-2 RNA (RT-PCR) (Negative) 09/20/22 09/20/22 09/20/22 Range/Units 11:34 11:34 11:34 WBC (4.8-10.8) X10*3/uL RBC (4.20-5.50) X10*6/uL Hgb (12.0-16.0) g/dl Hct (37.0-47.0) % MCV (80.0-98.0) fL MCH (27.0-33.0) pg MCHC (31.0-35.0) g/dl RDW (11.0-16.0) % Plt Count (160-400) X10*3/uL MPV (9.4-12.3) fL Immature Gran % (Auto) (0.0-0.4) % Neut % (Auto) (45-73) % Lymph % (Auto) (20-40) % Pine % (Auto) (2-11) % Eos % (Auto) (0-4) % Baso % (Auto) (0-2) % Lymph # (Auto) (1.2-4.9) X10*3/uL Pine # (Auto) (0.1-1.2) X10*3/uL Eos # (Auto) (0.0-0.4) X10*3/uL Baso # (Auto) (0.0-0.2) X10*3/uL Abs Immat Gran (auto) (0.00-0.03) X10*3/uL Absolute Neuts (auto) (2.0-8.3) x10*3/uL Absolute Nucleated RBC (0.0-0.012) X10*3/uL Nucleated RBC % (auto) (0.0-0.2) /100WBC PT (10.0-13.1) SEC INR (0.9-1.1) Sodium (135-145) mmol/L Potassium (3.3-5.1) mmol/L Chloride (96-108) mmol/L Carbon Dioxide (22-29) mmol/L Anion Gap (12-20) BUN (9-16) mg/dL Creatinine (0.5-1.4) mg/dL Estim Creat Clear Calc Estimated GFR Random Glucose (60-115) mg/dL Lactic Acid (0.5-2.0) mmol/L Calcium (8.4-10.2) mg/dL Magnesium (1.6-2.6) mg/dL Total Bilirubin (0.0-1.0) mg/dL AST (5-31) U/L ALT (0-31) U/L Alkaline Phosphatase (39-117) U/L B-Natriuretic Peptide 421 H (<100) pg/mL Total Protein (6.5-8.0) g/dL Albumin (3.5-5.0) g/dL Lipase (8-78) U/L TSH 0.75 (0.32-4.0) uIU/mL Influenza Type A (PCR) NEGATIVE (Negative) Influenza Type B (PCR) NEGATIVE (Negative) RSV RNA Qual (PCR) NEGATIVE (Negative) SARS-CoV-2 RNA (RT-PCR) NEGATIVE (Negative) 09/20/22 Range/Units 11:35 WBC 9.1 (4.8-10.8) X10*3/uL RBC 4.06 L (4.20-5.50) X10*6/uL Hgb 12.6 (12.0-16.0) g/dl Hct 39.2 (37.0-47.0) % MCV 96.6 (80.0-98.0) fL MCH 31.0 (27.0-33.0) pg MCHC 32.1 (31.0-35.0) g/dl RDW 13.7 (11.0-16.0) % Plt Count 127 L (160-400) X10*3/uL MPV 11.2 (9.4-12.3) fL Immature Gran % (Auto) 0.2 (0.0-0.4) % Neut % (Auto) 85.6 H (45-73) % Lymph % (Auto) 9.6 L (20-40) % Pine % (Auto) 4.4 (2-11) % Eos % (Auto) 0.0 (0-4) % Baso % (Auto) 0.2 (0-2) % Lymph # (Auto) 0.9 L (1.2-4.9) X10*3/uL Pine # (Auto) 0.4 (0.1-1.2) X10*3/uL Eos # (Auto) 0.0 (0.0-0.4) X10*3/uL Baso # (Auto) 0.0 (0.0-0.2) X10*3/uL Abs Immat Gran (auto) 0.02 (0.00-0.03) X10*3/uL Absolute Neuts (auto) 7.7 (2.0-8.3) x10*3/uL Absolute Nucleated RBC 0.000 (0.0-0.012) X10*3/uL Nucleated RBC % (auto) 0.0 (0.0-0.2) /100WBC PT (10.0-13.1) SEC INR (0.9-1.1) Sodium (135-145) mmol/L Potassium (3.3-5.1) mmol/L Chloride (96-108) mmol/L Carbon Dioxide (22-29) mmol/L Anion Gap (12-20) BUN (9-16) mg/dL Creatinine (0.5-1.4) mg/dL Estim Creat Clear Calc Estimated GFR Random Glucose (60-115) mg/dL Lactic Acid (0.5-2.0) mmol/L Calcium (8.4-10.2) mg/dL Magnesium (1.6-2.6) mg/dL Total Bilirubin (0.0-1.0) mg/dL AST (5-31) U/L ALT (0-31) U/L Alkaline Phosphatase (39-117) U/L B-Natriuretic Peptide (<100) pg/mL Total Protein (6.5-8.0) g/dL Albumin (3.5-5.0) g/dL Lipase (8-78) U/L TSH (0.32-4.0) uIU/mL Influenza Type A (PCR) (Negative) Influenza Type B (PCR) (Negative) RSV RNA Qual (PCR) (Negative) SARS-CoV-2 RNA (RT-PCR) (Negative) Independent Interpretation I performed an independent interpretation of an: EKG (Sinus rhythm with first-degree AV block with PVCs with nonspecific T-wave abnormalities similar when compared to prior EKG 06/26/2022 no acute ischemic change are noted.), Plain X-Ray (Patient noted to have a left lower lobe infiltrate consistent with pneumonia discussed this with patient and family) and CT Scan (Ct scan results reviewed and discussed with the patient family member) Radiology Impression Discussion of test interpretation with radiology: I have reviewed the radiologist's reading. (Chest x-ray and CT scan abdomen pelvis IV contrast I viewed myself and discussed this with the patient and her family member at bedside) Radiologist Impression: FINDINGS: Patchy infiltrate left base. Minor atelectasis right base. Recommend continued PA lateral follow-up. Heart and pulmonary vessels are normal. No pleural effusions. There is advanced degenerative change in the right shoulder. XR/XR chest 2V IMPRESSION: Bibasilar infiltrates left greater than right. Recommend short-term follow-up. FINDINGS: LUNG BASES: Bronchial thickening and scattered endobronchial secretions present. No parenchymal consolidation. Bibasilar subsegmental atelectasis.? LIVER, GALLBLADDER, AND BILIARY TREE: The liver is normal in size, shape, and attenuation. No focal hepatic lesion or biliary ductal dilatation is present. Cholelithiasis. No pericholecystic inflammation. ? PANCREAS: Fatty atrophy. No mass or inflammation.? SPLEEN: Unremarkable.? ADRENAL GLANDS: Unremarkable.? KIDNEYS AND URETERS: The kidneys are normal in size, shape, and attenuation. Simple cysts present bilaterally. No follow-up required. No hydronephrosis, hydroureter, or calculi seen. No perinephric stranding. ? BLADDER: Unremarkable.? GASTROINTESTINAL TRACT: Scattered colonic diverticula, most concentrated within sigmoid colon. No evidence of diverticulitis. Normal appendix. Stomach and small bowel unremarkable.? ABDOMINAL WALL: No significant hernia is appreciated.? LYMPH NODES: Normal. VASCULAR: Normal caliber aorta. Mild atherosclerosis. IVC filter present at the level of L4. PELVIC VISCERA: Uterus and adnexa unremarkable.? OSSEOUS STRUCTURES: No acute or suspicious osseous abnormalities. Degenerative changes throughout the spine, and bilateral hips.? CT/CT abdomen pelvis w IV con IMPRESSION: *? No acute findings within the abdomen or pelvis to explain the patient's symptomatology. *? Cholelithiasis. *? Scattered colonic diverticula without evidence of diverticulitis. Independent Historian Clinical information obtained from an independent historian. History obtained from or confirmed by: Other (Family member at bedside) External Record Review External record reviewed: Inpatient record, Office record, Outpatient record, Prior outpatient labs, Prior outpatient radiology, Primary care record and Outside ED record Prescription Management I considered prescription management with: Antibiotic (Are started her on Rocephin for possible pneumonia) Chronic Conditions Patient?s care impacted by: Diabetes and Hypertension Medications Administered Discontinued Medications Generic Name Dose Route Start Last Admin Trade Name Freq PRN Reason Stop Dose Admin Albuterol Sulfate 10 mg 09/20/22 12:55 09/20/22 13:16 Albuterol Sulfate (0.083%) 2.5 Mg/3 Ml Vial.Neb INHALE 09/20/22 12:56 10 mg ONCE ONE Administration Iohexol 85 ml 09/20/22 12:52 09/20/22 12:53 Iohexol 350 Mg/Ml 100 Ml Infus..Btl IV 09/20/22 12:53 85 ml ONCE ONE Administration Critical Care Time Critical Care Time Critical Care Time: Yes Total Critical Care Time: 60 Attestation: I personally attest to this time spent taking care of the patient Discharge Plan Discharge Clinical Impression: Pneumonia, Hypoxia, Gastroenteritis Patient Disposition: Admitted As Inpatient
[2022-09-20] MEDS: iohexoL 350 MG/ML 100 ML INFUS..BTL 85 ML IV (12:53)
[2022-09-20] MEDS: Albuterol Sulfate (0.083%) 2.5 MG/3 ML VIAL.NEB 10 MG INHALE (13:16)
--- NOTE | 2022-09-20 13:18 | MHC.EDTECH ---
Pt incontinent of urine, full bed changed and new linens in place, repositioned to left side. Pt resting quietly, with daughter at bedside
--- NOTE | 2022-09-20 14:31 | P.HPHOSP_ITS ---
History of Present Illness Date of Service: 09/20/22 Attending physician on admission: Anshul Cisse Chief Complaint: abdominal pain, nausea and vomiting 87-year-old female presenting with complaints of nausea/vomiting/diarrhea that started yesterday with associated diffuse abdominal pain worse today.? She also reports a productive cough for a few weeks with some shortness of breath.? Reports associated chills.?Her son had been sick recently with cold like symptoms. She denies any measured fevers, dizziness, chest pain, back pain, dysuria, hematuria, abnormal vaginal discharge, lower extremity edema or calf tenderness, recent travel or sick contacts, possible bad food exposure, recent antibiotic usage or any other symptoms complaints or concerns at this time. She was noted to have fever, tachycardia, tachypnea with a left lower lobe consolidation. COVID, RSV and flu negative. Abd CT negative for acute abnormality. In the ER she got ceftriaxone, Tylenol and albuterol. She will be admitted for further management treatment of sepsis secondary to community- acquired pneumonia. Review of Systems Review of Systems: Denies any recent fever chills or decrease in appetite respiratory denies any shortness of breath coverage production cardiovascular denied chest pain gastrointestinal denies any dysphagia abdominal pain nausea vomiting or diarrhea genitourinary denies any dysuria frequency or hematuria musculoskeletal denies any joint pain or swelling neuropsych denies any weakness or seizures all other systems reviewed are negative [facility] Medical History (Updated 09/20/22 @ 14:38 by Joanne Levi NP) Anxiety disorder Coronary artery disease Deep vein thrombosis Essential hypertension Hearing loss History of cerebrovascular accident Hyperlipemia Hypothyroidism Multiple falls Obesity due to excess calories Osteoarthritis Osteopenia Senile cataract of left eye Type 2 diabetes mellitus with diabetic polyneuropathy Urinary incontinence Family History Father Heart disease CVD (cardiovascular disease) Mother Diabetes Surgical History History of bilateral tubal ligation Social History Household Members: Family Housing: House Do you presently have visiting nurse or other home services: Yes Alcohol intake: never Patient Tobacco Use Status: Never used Tobacco Advance Directives: Yes Advance Directives on File: Yes Advance Directives Date on File: 07/01/22 service: No Current occupational status: unemployed Sexual orientation: Straight/Heterosexual Gender identity: Female Meds Allergies Allergy/AdvReac Type Severity Reaction Status Date / Time acetaminophen [Tylenol] Allergy Intermediate rash Verified 09/12/22 10:17 aspirin [Aspirin] Allergy Mild Gastrointestinal Verified 09/12/22 10:17 Upset oxycodone [From PERCOCET] Allergy Unknown PALPITATION Verified 09/12/22 10:17 S From Robitussin Cough & Cold Allergy Intermediate hives Uncoded 09/12/22 10:17 Robitussin Cold Cough+ Chest Allergy Intermediate hives Uncoded 09/12/22 10:17 SEAFOOD Allergy Intermediate hives Uncoded 09/12/22 10:17 shellfish Allergy Intermediate hives Uncoded 09/12/22 10:17 Active Medications: Current Medications Pharmacy Consult (Consult Rx Perform Med Rec) 1 each MISCELLANE ONCE PRN PRN Reason: Consult order Home Medications Medication Instructions Recorded Confirmed Last Taken Type atorvastatin 20 mg tablet 20 mg PO BEDTIME 05/21/20 09/20/22 Unknown History blood sugar diagnostic #10 ea 05/21/20 04/11/22 Unknown History cholecalciferol (vitamin D3) 50 50 mcg PO DAILY 05/21/20 09/20/22 Unknown History mcg (2,000 unit) tablet docusate sodium 100 mg capsule 100 mg PO BID 05/21/20 09/20/22 Unknown History fluticasone 500 mcg-salmeterol 50 1 inh inhalation BID 05/21/20 09/20/22 Unknown History mcg/dose blistr powdr for inhalation fluticasone propionate 50 2 spray intranasal DAILY 05/21/20 09/20/22 Unknown History mcg/actuation nasal spray,suspension furosemide 40 mg tablet 40 mg PO QAM 05/21/20 09/20/22 Unknown History lancets #100 ea 05/21/20 04/11/22 Unknown History levothyroxine 100 mcg tablet 100 mcg PO DAILY@0630 05/21/20 09/20/22 Unknown History omeprazole 20 mg capsule,delayed 20 mg PO BID@0630,1630 05/21/20 09/20/22 Unknown History release pen needle, diabetic 32 gauge x #50 ea 05/21/20 04/11/22 Unknown History sertraline 50 mg tablet 50 mg PO DAILY 05/21/20 09/20/22 Unknown History metoprolol tartrate 25 mg tablet 12.5 mg PO BID 12/17/20 09/20/22 Unknown History clonazepam 0.5 mg tablet 0.5 mg PO BEDTIME 04/19/21 09/20/22 Unknown History nebulizers (Sidestream misc) #1 ea 05/14/21 04/11/22 Unknown History multivitamin-iron sulfate 15 1 tab PO QAM 12/15/21 09/20/22 Unknown History mg-folic acid 400 mcg tablet (Tab-A-Judith Multivitamin w-iron) solifenacin 5 mg tablet 5 mg PO QAM 04/11/22 09/20/22 Unknown History insulin lispro 100 unit/mL 8 unit subcut TIDAC 06/26/22 09/20/22 Unknown History subcutaneous pen (Humalog KwikPen (U-100) Insulin) warfarin 3 mg tablet 3 mg PO SUTUWEFRSA 06/26/22 09/20/22 Unknown History warfarin 3 mg tablet 4.5 mg PO MOTH 06/26/22 09/20/22 Unknown History betamethasone valerate 0.1 % 1 appl topical BID PRN Dry Skin 09/20/22 09/20/22 Unknown History topical cream dulaglutide 1.5 mg/0.5 mL 1.5 mg subcut DURON 09/20/22 09/20/22 Unknown History subcutaneous pen injector (Trulicity) metformin 500 mg tablet,extended 500 mg PO BIDWM 09/20/22 09/20/22 Unknown History release 24 hr Physical Exam Vital Signs and Narrative: Vital Signs: Last Vital Signs Temp 100.8 F H 09/20/22 14:16 Pulse 105 H 09/20/22 13:52 Resp 18 09/20/22 13:52 BP 132/63 09/20/22 13:52 Pulse Ox 94 09/20/22 13:52 O2 Del Method 09/20/22 13:52 O2 Flow Rate 2 09/20/22 13:52 BMI result Body Mass Index 40.1 Appearing in no acute distress head is normocephalic atraumatic eyes pupils are PERRLA sclera is anicteric mouth throat mucous membranes are intact and moist neck is supple no lymphadenopathy, no JVD noted lung sounds are clear to auscultation heart regular rate rhythm, clear S1, S2 positive bowel sounds, abdomen is soft, nontender neuro patient is alert x3, no focal deficits Results Labs 09/20/22 11:35 09/20/22 11:34 Labs: Laboratory Results - last 24 hr 09/20/22 09/20/22 09/20/22 11:34 11:34 11:34 MCV MCH MCHC RDW Plt Count MPV Immature Gran % (Auto) Neut % (Auto) Lymph % (Auto) [place] % (Auto) Eos % (Auto) Baso % (Auto) Lymph # (Auto) [place] # (Auto) Eos # (Auto) Baso # (Auto) Abs Immat Gran (auto) Absolute Neuts (auto) Absolute Nucleated RBC Nucleated RBC % (auto) PT 18.3 H INR 1.6 H Anion Gap 12 Estim Creat Clear Calc 40.4 Estimated GFR 48 Random Glucose 253 H Lactic Acid 1.1 Calcium 9.1 Magnesium 1.6 Total Bilirubin 0.8 AST 24 ALT 21 Alkaline Phosphatase 105 B-Natriuretic Peptide Total Protein 7.1 Albumin 3.7 Lipase 55 TSH Influenza Type A (PCR) Influenza Type B (PCR) RSV RNA Qual (PCR) SARS-CoV-2 RNA (RT-PCR) 09/20/22 09/20/22 09/20/22 11:34 11:34 11:34 MCV MCH MCHC RDW Plt Count MPV Immature Gran % (Auto) Neut % (Auto) Lymph % (Auto) [place] % (Auto) Eos % (Auto) Baso % (Auto) Lymph # (Auto) [place] # (Auto) Eos # (Auto) Baso # (Auto) Abs Immat Gran (auto) Absolute Neuts (auto) Absolute Nucleated RBC Nucleated RBC % (auto) PT INR Anion Gap Estim Creat Clear Calc Estimated GFR Random Glucose Lactic Acid Calcium Magnesium Total Bilirubin AST ALT Alkaline Phosphatase B-Natriuretic Peptide 421 H Total Protein Albumin Lipase TSH 0.75 Influenza Type A (PCR) NEGATIVE Influenza Type B (PCR) NEGATIVE RSV RNA Qual (PCR) NEGATIVE SARS-CoV-2 RNA (RT-PCR) NEGATIVE 09/20/22 11:35 MCV 96.6 MCH 31.0 MCHC 32.1 RDW 13.7 Plt Count 127 L MPV 11.2 Immature Gran % (Auto) 0.2 Neut % (Auto) 85.6 H Lymph % (Auto) 9.6 L San[place] % (Auto) 4.4 Eos % (Auto) 0.0 Baso % (Auto) 0.2 Lymph # (Auto) 0.9 L [place] # (Auto) 0.4 Eos # (Auto) 0.0 Baso # (Auto) 0.0 Abs Immat Gran (auto) 0.02 Absolute Neuts (auto) 7.7 Absolute Nucleated RBC 0.000 Nucleated RBC % (auto) 0.0 PT INR Anion Gap Estim Creat Clear Calc Estimated GFR Random Glucose Lactic Acid Calcium Magnesium Total Bilirubin AST ALT Alkaline Phosphatase B-Natriuretic Peptide Total Protein Albumin Lipase TSH Influenza Type A (PCR) Influenza Type B (PCR) RSV RNA Qual (PCR) SARS-CoV-2 RNA (RT-PCR) Imaging Radiologist's Impressions: Impressions Chest X-Ray 09/20/22 11:02 IMPRESSION: Bibasilar infiltrates left greater than right. Recommend short-term follow-up. Assessment and Plan (1) Pneumonia: Status: Acute Plan 87 year old women admitted with sepsis secondary toCAP Sepsis secondary to CAP Fever, tachycardia, tachypnea, normal lactic acid Rocephin IV supplemental oxygen as needed follow cx Diabetes 2 ss, ada diet Paroxysmal atrial fibrillation Continue beta-dinorah and warfarin Check PT INR daily Hyperlipidemia Hold statin Mental health Continue home medications GERD Continue PPI Hypothyroidism Continue levothyroxine Morbid obesity. BMI 40.1 Discussed importance of weight management as this may be contributing to worsening of other comorbidities sinus and DVT prophylaxis warfarin Attending Dr. Cisse Full code Required 2 inpatient midnights for treatment of sepsis secondary to community- acquired pneumonia requiring IV antibiotics Time Spent With Patient Time: Total time managing care of this patient today ____ minutes. Quality Stroke Does the patient have a stroke diagnosis?: No VTE Prior VTE?: No VTE Risk Level:: Medical - moderate - high VTE Device Contraindication: Treatment Not Indicated VTE Drug Contraindication: N/A - Med Ordered
--- NOTE | 2022-09-20 15:07 | PHA.MEDREC ---
Pharmacy Consult ? Medication Reconciliation Pharmacy has completed the medication reconciliation. Patient is kazakh speaking and poor historian. Completed med rec using med box program/claim history from pharmacy.
[2022-09-20] MEDS: cefTRIAXone sodium 2 GM in 0.9 % Sodium Chloride 50 ML IV (15:34)
[2022-09-20] MEDS: Acetaminophen 325 MG TABLET 975 MG PO (15:34)
[2022-09-20] MEDS: Azithromycin 500 MG in 0.9 % Sodium Chloride 250 ML 125 MG IV (16:20)
--- NOTE | 2022-09-20 16:50 | PC.NURSE ---
assumed care of patient at 1500. patient is alert, oriented x4. maltese speaking. denies pain at this time. productive cough noted .
--- NOTE | 2022-09-20 17:10 | PM.EVENT ---
Event Note Date of Service: 09/20/22 Event Note: This patient is seen and examined with APC. Patient is getting admitted due to possible GI symptoms as well as found to have pneumonia. Lab imaging, EKG reviewed. Possible pneumonia on the x-ray, EKG NSR, no leukocytosis, has low grade fevers. Physical exam as per H&P in addition Lungs:air entry diminshed at bases , few rhonchii assessment and plan coordinated in APCs note, Agree with the plan in addition: Sepsis secondary to pneumonia Sepsis exam completed Continue IV antibiotics. Follow-up blood culture. inr subtherapeutic -adjusted warfarin Time Spent With Patient Time: Total time managing care of this patient today ____ minutes.
[2022-09-20] MEDS: Multivitamin TABLET 1 TAB PO (17:38)
[2022-09-20] MEDS: Furosemide 40 MG TABLET PO (17:38)
[2022-09-20 18:44] LABS: Procalcitonin 0.09 ng/mL
[2022-09-20] MEDS: Warfarin Sodium 0.5 MG HALFTAB PO (19:36)
[2022-09-20] MEDS: Warfarin Sodium 3 MG TABLET PO (19:37)
--- NOTE | 2022-09-20 21:24 | MHC.CM.PN ---
IMM 09/20. Reviewed with son/HCP Danny Morgan ([phone]). HCP on file.Lives with son Naren. Nephew is SUPPLY TECH. Walker, shower chair, commode, Oxygen at home prn. Was admitted in June and discharged to [place] [facility]. Daughter/HCP #2, Catarina at bedside. Catarina was very unhappy with [place] [facility] and would like RM if her mother needs rehab. CM explained that patient would be assessed daily at [facility] for need for rehab. Danny feels his mother can go home with existing [employer] services and family care. Per Danny, pt received Moderna x2, but no booster. Had flu shot. D/C plan: home with existing services vs STR. No referrals placed at this time. CM will follow for d/c needs.
[2022-09-20] MEDS: Metoprolol Tartrate 12.5 MG HALFTAB PO (21:42)
[2022-09-20] MEDS: Atorvastatin Calcium 20 MG TABLET PO (21:42)
[2022-09-20] MEDS: clonazePAM 0.5 MG TABLET PO (21:42)
[2022-09-20] MEDS: Docusate Sodium 100 MG CAPSULE PO (21:42)
[2022-09-20 21:57] LABS: Glucose, Whole Blood 277 mg/dL (60-115)
[2022-09-20] MEDS: Insulin Lispro 100 UNIT/ML 3 ML VIAL SUBCUT (22:00)
[2022-09-21] MEDS: Levothyroxine Sodium 100 MCG TABLET PO (06:37)
[2022-09-21] MEDS: Omeprazole 20 MG CAPSULE.DR PO ×2 (06:37→16:53)
[2022-09-21 07:07] LABS: MANUAL DIFF FLAG NO
--- NOTE | 2022-09-21 07:08 | PC.NURSE ---
Assumed care of pt. at 1900 09/20/22. Pt. resting in bed at that time with family at bedside. Pt. rested throughtout the night, with no distress noted, respirations even and unlabored.
[2022-09-21 07:11] LABS: Basophils Percent Auto 0.6 % (0-2); Eosinophils Absolute Auto 0.1 X10*3/uL (0.0-0.4); Eosinophils Percent Auto 0.7 % (0-4); Hemoglobin 11.8 g/dl (12.0-16.0); Imm Gran Abs Auto 0.02 X10*3/uL (0.00-0.03); Imm Gran Pct Auto 0.3 % (0.0-0.4); Lymphocytes Absolute Auto 1.4 X10*3/uL (1.2-4.9); Lymphocytes Percent Auto 20.4 % (20-40); Mean Corpuscular HGB Conc 31.9 g/dl (31.0-35.0); Mean Corpuscular Hemoglobin 30.9 pg (27.0-33.0); Mean Corpuscular Volume 96.9 fL (80.0-98.0); Mean Platelet Volume 11.5 fL (9.4-12.3); Monocytes Absolute Auto 0.4 X10*3/uL (0.1-1.2); Monocytes Percent Auto 5.8 % (2-11); Neutrophils Absolute Auto 5.1 x10*3/uL (2.0-8.3); Neutrophils Percent Auto 72.2 % (45-73); Platelet Count 119 X10*3/uL (160-400); Red Blood Count 3.82 X10*6/uL (4.20-5.50); Red Cell Distribution Width 13.7 % (11.0-16.0)
[2022-09-21 07:16] LABS: Glucose, Whole Blood 157 mg/dL (60-115)
[2022-09-21 07:27] LABS: Anion Gap 12 (12-20); Blood Urea Nitrogen 18 mg/dL (9-16); Calcium 8.9 mg/dL (8.4-10.2); Carbon Dioxide 31 mmol/L (22-29); Chloride 101 mmol/L (96-108); Estimated Glomerular Filt Rate 60; Glucose Random 156 mg/dL (60-115); Potassium 3.4 mmol/L (3.3-5.1); Sodium 141 mmol/L (135-145)
--- NOTE | 2022-09-21 07:44 | PC.NURSE ---
Report to C RN
[2022-09-21 07:48] VITALS: BP 131/57; PULSE 75; RESP 22; O2SAT 95
[2022-09-21] MEDS: Insulin Lispro 100 UNIT/ML 3 ML VIAL SUBCUT ×4 (07:50→21:22)
--- NOTE | 2022-09-21 07:53 | PC.NURSE ---
Patient resting comfortably no distress noted, continues on O2 by nasal cannula with good effect. No distress noted Maori speaking only will prepare for transfer to floor
[2022-09-21] MEDS: 0.9 % Sodium Chloride Flush 3 ML SYRINGE IVFLUSH ×3 (07:59→23:34)
[2022-09-21 08:00] VITALS: BP 132/60; PULSE 83; RESP 16; TEMP 36.6; O2SAT 95
[2022-09-21] MEDS: Furosemide 40 MG TABLET PO (09:03)
[2022-09-21] MEDS: Sertraline HCL 50 MG TABLET PO (09:03)
[2022-09-21] MEDS: Multivitamin TABLET 1 TAB PO (09:03)
[2022-09-21] MEDS: Cholecalciferol (Vitamin D3) 25 MCG TABLET 50 MCG PO (09:04)
[2022-09-21] MEDS: Insulin Glargine,Hum.rec.anlog 100 UNIT/ML 10 ML VIAL 25 UNIT SUBCUT (09:04)
[2022-09-21] MEDS: Metoprolol Tartrate 12.5 MG HALFTAB PO ×2 (09:04→21:23)
[2022-09-21] MEDS: Docusate Sodium 100 MG CAPSULE PO ×2 (09:04→21:23)
[2022-09-21 09:11] LABS: INTERNATIONAL NORM RATIO 2.1 (0.9-1.1); Prothrombin Time 24.3 SEC (10.0-13.1)
[2022-09-21 11:47] LABS: Glucose, Whole Blood 185 mg/dL (60-115)
[2022-09-21] MEDS: Fluticasone Propionate Nasal 16 GM SPRAY 2 SPRAY NOSTRIL-B (11:50)
[2022-09-21] MEDS: Tolterodine Tartrate LA 2 MG CAP.ER.24H 4 MG PO (11:50)
[2022-09-21 12:30] VITALS: BMI 39.4
--- NOTE | 2022-09-21 14:26 | MHC.CM.PN ---
per rounds pt no dc date at this time cm will follow for pt eval dc plan tbd
[2022-09-21] MEDS: Azithromycin 500 MG in 0.9 % Sodium Chloride 250 ML 125 MG IV (14:36)
[2022-09-21] MEDS: cefTRIAXone sodium 1 GM in 0.9 % Sodium Chloride 50 ML IV (15:02)
[2022-09-21 15:25] LABS: Appearance Urine Clear; Color Urine Yellow; Glucose Urine UA Negative (Negative); Leukocyte Esterase Urine Negative (Negative); Nitrite Urine Negative (Negative); UMIC TRIGGER UACC YES; Urine Blood Negative (Negative); Urine Ketones Negative (Negative); Urine Protein 100 (2+) mg/dL (Neg-Trace)
[2022-09-21 15:30] LABS: Bacteria Urine None Seen (None Seen); Hyaline Casts Urine 0-2 /LPF (0-2); RBC Urine 0-2 /HPF (0-2); WBC Urine 0-5 /HPF (0-5)
[2022-09-21 15:36] VITALS: BP 145/60; PULSE 72; RESP 17; TEMP 36.6; O2SAT 98
--- NOTE | 2022-09-21 16:25 | P.PNIM_ITS ---
Subjective Subjective Date of Service: 09/21/22 Interval History: No acute issues overnight. Abdominal pain improved Review of Systems Denies chest pain Denies shortness of breath Denies nausea vomiting diarrhea Denies fever chills Physical Exam Vital Signs: Vital Signs: Last Vital Signs Temp 97.9 F 09/21/22 15:36 Pulse 72 09/21/22 15:36 Resp 17 09/21/22 15:36 BP 145/60 H 09/21/22 15:36 Pulse Ox 98 09/21/22 15:36 O2 Del Method 09/21/22 15:36 O2 Flow Rate 2 09/21/22 15:36 BMI result Body Mass Index 39.4 Const: Other: Awake alert no acute distress Resp: Other: Clear to auscultation bilaterally no rales rhonchi or wheezes Cardio: Other: No S4; positive S1-S2; no S3 murmurs rubs or gallops GI: Other: Soft nontender nondistended normoactive bowel sounds Extrem: Other: No edema bilaterally Objective Data Active Medications Acetaminophen (Acetaminophen 325 Mg Tablet) 650 mg PO Q6H PRN PRN Reason: Pain, Mild (Pain Scale 1-3) Atorvastatin Calcium (Atorvastatin Calcium 20 Mg Tablet) 20 mg PO BEDTIME [facility] Last Admin: 09/20/22 21:42 Dose: 20 mg Documented By: LO Clonazepam (Clonazepam 0.5 Mg Tablet) 0.5 mg PO BEDTIME [facility] Last Admin: 09/20/22 21:42 Dose: 0.5 mg Documented By: LO Dextrose (Dextrose 50 % 25 Gm/50 Ml Syringe) 25 gm IVPUSH Q15M PRN; Protocol PRN Reason: per Hypoglycemia Standing Ord. Docusate Sodium (Docusate Sodium 100 Mg Capsule) 100 mg PO BID [facility] Last Admin: 09/21/22 09:04 Dose: 100 mg Documented By: JEREMY Fluticasone Propionate (Fluticasone Propionate Nasal 16 Gm [place]) 2 spray NOSTRIL-B DAILY [facility] Last Admin: 09/21/22 11:50 Dose: 2 spray Documented By: JEREMY Fluticasone/Vilanterol (Fluticasone/Vilanterol 200/25 Blst.W.Dev) 1 puff INHALE DAILY [facility] Last Admin: 09/21/22 07:46 Dose: Not Given Documented By: FREDDY Non-Admin Reason: Med Not Available Furosemide (Furosemide 40 Mg Tablet) 40 mg PO DAILY [facility]; Protocol Last Admin: 09/21/22 09:03 Dose: 40 mg Documented By: JEREMY Glucose (Glucose Gel 15 Gm Gel..Gram.) 15 gm PO Q15M PRN; Protocol PRN Reason: per Hypoglycemia Standing Ord. Ceftriaxone Sodium 1 gm/ (Sodium Chloride) 50 mls @ 100 mls/hr IV Q24H [facility] Last Infusion: 09/21/22 15:45 Dose: 0 mls/hr Documented By: JEREMY Azithromycin 500 mg/ Sodium (Chloride) 250 mls @ 125 mls/hr IV Q24H [facility] Last Admin: 09/21/22 14:36 Dose: 125 mls/hr Documented By: JEREMY Insulin Glargine (Insulin Glargine,Hum.Rec.Anlog 100 Unit/Ml 10 Ml Vial) 25 unit SUBCUT DAILY [facility] Last Admin: 09/21/22 09:04 Dose: 25 unit Documented By: JEREMY Insulin Human Lispro (Insulin Lispro 100 Unit/Ml 3 Ml Vial) 0 unit SUBCUT QIDACHS [facility]; Protocol Last Admin: 09/21/22 11:51 Dose: 2 unit Documented By: JEREMY Levothyroxine Sodium (Levothyroxine Sodium 100 Mcg Tablet) 100 mcg PO DAILY@0600 [facility] Last Admin: 09/21/22 06:37 Dose: 100 mcg Documented By: LO Metoprolol Tartrate (Metoprolol Tartrate 12.5 Mg Halftab) 12.5 mg PO BID [facility]; Protocol Last Admin: 09/21/22 09:04 Dose: 12.5 mg Documented By: JEREMY Multivitamins/Vitamin C (Multivitamin Tablet) 1 tab PO DAILY [facility] Last Admin: 09/21/22 09:03 Dose: 1 tab Documented By: JEREMY Non-Formulary Medication (Dulaglutide [Trulicity]) 1.5 mg SUBCUT DURON [facility] Omeprazole (Omeprazole 20 Mg Sven.) 20 mg PO BID@0630,1630 [facility] Last Admin: 09/21/22 06:37 Dose: 20 mg Documented By: LO Ondansetron HCl (Ondansetron Hcl 4 Mg/2 Ml Vial) 4 mg IVPUSH Q8H PRN PRN Reason: Nausea and Vomiting Pharmacy Consult (Consult Rx Perform Med Rec) 1 each MISCELLANE ONCE PRN PRN Reason: Consult order Sertraline HCl (Sertraline Hcl 50 Mg Tablet) 50 mg PO DAILY [facility] Last Admin: 09/21/22 09:03 Dose: 50 mg Documented By: JEREMY Sodium Chloride (0.9 % Sodium Chloride Flush 3 Ml Syringe) 3 ml IVFLUSH QSHIFT [facility] Last Admin: 09/21/22 07:59 Dose: 3 ml Documented By: JESUS Tolterodine Tartrate (Tolterodine Tartrate La 2 Mg Cap.Er.24h) 4 mg PO DAILY [facility] Last Admin: 09/21/22 11:50 Dose: 4 mg Documented By: JEREMY Triamcinolone Acetonide (Triamcinolone Acet 0.1 % Cream 15 Gm Tube) 1 appl TOP ICAL BID PRN PRN Reason: Dry Skin Vitamin D (Cholecalciferol (Vitamin D3) 25 Mcg Tablet) 50 mcg PO DAILY [facility] Last Admin: 09/21/22 09:04 Dose: 50 mcg Documented By: JEREMY Warfarin Sodium (Warfarin Sodium 0.5 Mg Halftab) 4.5 mg PO MoTh@1800 [facility] Warfarin Sodium (Warfarin Sodium 3 Mg Tablet) 3 mg PO SuTuWeFrSa@1800 [facility] Labs 09/21/22 06:47 09/21/22 06:47 Labs: Laboratory Results - last 24 hr 09/20/22 09/20/22 09/21/22 11:34 21:51 06:47 MCV 96.9 MCH 30.9 MCHC 31.9 RDW 13.7 Plt Count 119 L MPV 11.5 Immature Gran % (Auto) 0.3 Neut % (Auto) 72.2 Lymph % (Auto) 20.4 [place] % (Auto) 5.8 Eos % (Auto) 0.7 Baso % (Auto) 0.6 Lymph # (Auto) 1.4 [place] # (Auto) 0.4 Eos # (Auto) 0.1 Baso # (Auto) 0.0 Abs Immat Gran (auto) 0.02 Absolute Neuts (auto) 5.1 Absolute Nucleated RBC 0.000 Nucleated RBC % (auto) 0.0 PT INR Anion Gap Estim Creat Clear Calc Estimated GFR POC Glucose 277 H Random Glucose Calcium Procalcitonin 0.09 Urine Color Urine Appearance Urine pH Ur Specific [place] Urine Protein Urine Glucose (UA) Urine Ketones Urine Blood Urine Nitrite Ur Leukocyte Esterase Urine RBC Urine WBC Ur Squamous Epith Cells Urine Bacteria Hyaline Casts 09/21/22 09/21/22 09/21/22 06:47 07:09 08:57 MCV MCH MCHC RDW Plt Count MPV Immature Gran % (Auto) Neut % (Auto) Lymph % (Auto) [place] % (Auto) Eos % (Auto) Baso % (Auto) Lymph # (Auto) [place] # (Auto) Eos # (Auto) Baso # (Auto) Abs Immat Gran (auto) Absolute Neuts (auto) Absolute Nucleated RBC Nucleated RBC % (auto) PT 24.3 H INR 2.1 H Anion Gap 12 Estim Creat Clear Calc 49.0 Estimated GFR 60 POC Glucose 157 H Random Glucose 156 H Calcium 8.9 Procalcitonin Urine Color Urine Appearance Urine pH Ur Specific [place] Urine Protein Urine Glucose (UA) Urine Ketones Urine Blood Urine Nitrite Ur Leukocyte Esterase Urine RBC Urine WBC Ur Squamous Epith Cells Urine Bacteria Hyaline Casts 09/21/22 09/21/22 11:29 15:04 MCV MCH MCHC RDW Plt Count MPV Immature Gran % (Auto) Neut % (Auto) Lymph % (Auto) [place] % (Auto) Eos % (Auto) Baso % (Auto) Lymph # (Auto) [place] # (Auto) Eos # (Auto) Baso # (Auto) Abs Immat Gran (auto) Absolute Neuts (auto) Absolute Nucleated RBC Nucleated RBC % (auto) PT INR Anion Gap Estim Creat Clear Calc Estimated GFR POC Glucose 185 H Random Glucose Calcium Procalcitonin Urine Color Yellow Urine Appearance Clear Urine pH 6.0 Ur Specific [place] 1.020 Urine Protein 100 (2+) H Urine Glucose (UA) Negative Urine Ketones Negative Urine Blood Negative Urine Nitrite Negative Ur Leukocyte Esterase Negative Urine RBC 0-2 Urine WBC 0-5 Ur Squamous Epith Cells 3-5 Urine Bacteria None Seen Hyaline Casts 0-2 Microbiology Microbiology Results: Microbiology 09/20/22 11:34 Blood Culture - Preliminary Blood - Venous Prelim: GPC Gram Stain only 09/20/22 11:48 Blood Culture - Preliminary Blood - Venous Prelim: GPC Gram Stain only Assessment and Plan (1) Sepsis: Status: Acute (2) Pneumonia: Status: Acute (3) Diabetes type 2, controlled: Status: Acute Plan 87 year old women admitted with sepsis secondary to CAP; sepsis resolved 1.Sepsis secondary to CAP -resolved -Rocephin(2) -supplemental oxygen as needed; wean as tolerated -BC 2/2 GPC...await ID 2.DMII -acceptable control on current therapy -lispro sliding scale -adjust as indicated 3.Paroxysmal atrial fibrillation -acceptable control on current beta-blockade -follow daily INRs; adjust warfarin as indicated 4.GERD -Continue PPI Coumadin Full code Will require ongoing hospitalization to treat community-acquired pneumonia with IV antibiotics; blood cultures pending Time Spent With Patient Time: Total time managing care of this patient today ____ minutes. Quality Stroke Does the patient have a stroke diagnosis?: No VTE Prior VTE?: No VTE Risk Level:: Medical - moderate - high VTE Device Contraindication: Treatment Not Indicated VTE Drug Contraindication: N/A - Med Ordered
[2022-09-21 16:35] LABS: Glucose, Whole Blood 220 mg/dL (60-115)
[2022-09-21] MEDS: Warfarin Sodium 3 MG TABLET PO (17:00)
[2022-09-21 19:14] VITALS: BP 147/65; PULSE 73; RESP 16; TEMP 36.3; O2SAT 95
[2022-09-21 20:49] LABS: Glucose, Whole Blood 163 mg/dL (60-115)
[2022-09-21] MEDS: clonazePAM 0.5 MG TABLET PO (21:23)
[2022-09-21] MEDS: Atorvastatin Calcium 20 MG TABLET PO (21:23)
[2022-09-22] VITALS (8 sets, daily range): BP systolic 120–154; BP diastolic 56–76; PULSE 64–85; RESP 14–18; TEMP 36–37.1; O2SAT 93–98
[2022-09-22] MEDS: Levothyroxine Sodium 100 MCG TABLET PO (05:55)
[2022-09-22] MEDS: Omeprazole 20 MG CAPSULE.DR PO ×2 (05:55→17:30)
[2022-09-22 06:33] LABS: MANUAL DIFF FLAG NO
[2022-09-22 06:39] LABS: Basophils Percent Auto 0.2 % (0-2); Eosinophils Absolute Auto 0.3 X10*3/uL (0.0-0.4); Eosinophils Percent Auto 3.6 % (0-4); Hematocrit 39.1 % (37.0-47.0); Hemoglobin 12.2 g/dl (12.0-16.0); Imm Gran Abs Auto 0.03 X10*3/uL (0.00-0.03); Imm Gran Pct Auto 0.3 % (0.0-0.4); Lymphocytes Absolute Auto 1.2 X10*3/uL (1.2-4.9); Lymphocytes Percent Auto 13.5 % (20-40); Mean Corpuscular HGB Conc 31.2 g/dl (31.0-35.0); Mean Corpuscular Hemoglobin 30.9 pg (27.0-33.0); Mean Platelet Volume 12.1 fL (9.4-12.3); Monocytes Absolute Auto 0.4 X10*3/uL (0.1-1.2); Monocytes Percent Auto 4.8 % (2-11); Neutrophils Absolute Auto 6.7 x10*3/uL (2.0-8.3); Neutrophils Percent Auto 77.6 % (45-73); Platelet Count 109 X10*3/uL (160-400); Red Blood Count 3.95 X10*6/uL (4.20-5.50); Red Cell Distribution Width 13.8 % (11.0-16.0); White Blood Count 8.7 X10*3/uL (4.8-10.8)
[2022-09-22 06:42] LABS: INTERNATIONAL NORM RATIO 2.1 (0.9-1.1); Prothrombin Time 24.7 SEC (10.0-13.1)
[2022-09-22 07:20] LABS: Glucose, Whole Blood 168 mg/dL (60-115)
[2022-09-22 07:49] LABS: Alanine Aminotransferase 16 U/L (0-31); Albumin Level 3.5 g/dL (3.5-5.0); Alkaline Phosphatase 84 U/L (39-117); Anion Gap 14 (12-20); Aspartate Amino Transferase 23 U/L (5-31); Bilirubin Total 0.6 mg/dL (0.0-1.0); Blood Urea Nitrogen 18 mg/dL (9-16); Calcium 9.2 mg/dL (8.4-10.2); Carbon Dioxide 32 mmol/L (22-29); Chloride 100 mmol/L (96-108); Creatinine Clr Calc Pharmacy 43.2; Estimated Glomerular Filt Rate 52; Glucose Fasting 158 mg/dL (60-99); Potassium 3.9 mmol/L (3.3-5.1); Sodium 142 mmol/L (135-145); Total Protein 6.6 g/dL (6.5-8.0)
[2022-09-22] MEDS: Fluticasone/Vilanterol 200/25 BLST.W.DEV 1 PUFF INHALE (08:03)
[2022-09-22] MEDS: Tolterodine Tartrate LA 2 MG CAP.ER.24H 4 MG PO (08:18)
[2022-09-22] MEDS: 0.9 % Sodium Chloride Flush 3 ML SYRINGE IVFLUSH ×3 (08:18→23:34)
[2022-09-22] MEDS: Cholecalciferol (Vitamin D3) 25 MCG TABLET 50 MCG PO (08:19)
[2022-09-22] MEDS: Multivitamin TABLET 1 TAB PO (08:19)
[2022-09-22] MEDS: Furosemide 40 MG TABLET PO (08:19)
[2022-09-22] MEDS: Sertraline HCL 50 MG TABLET PO (08:19)
[2022-09-22] MEDS: Docusate Sodium 100 MG CAPSULE PO ×2 (08:19→23:26)
[2022-09-22] MEDS: Metoprolol Tartrate 12.5 MG HALFTAB PO ×2 (08:19→23:26)
[2022-09-22] MEDS: Insulin Glargine,Hum.rec.anlog 100 UNIT/ML 10 ML VIAL 25 UNIT SUBCUT (08:20)
[2022-09-22] MEDS: Insulin Lispro 100 UNIT/ML 3 ML VIAL SUBCUT ×3 (08:20→23:26)
[2022-09-22] MEDS: Fluticasone Propionate Nasal 16 GM SPRAY 2 SPRAY NOSTRIL-B (08:27)
[2022-09-22 11:16] LABS: Glucose, Whole Blood 137 mg/dL (60-115)
[2022-09-22] MEDS: Azithromycin 500 MG in 0.9 % Sodium Chloride 250 ML 125 MG IV (15:56)
[2022-09-22 16:09] LABS: Glucose, Whole Blood 207 mg/dL (60-115)
--- NOTE | 2022-09-22 16:19 | P.PNIM_ITS ---
Subjective Subjective Date of Service: 09/22/22 Interval History: no acute issues overnight. Remains afebrile; no current O2 requirement Review of Systems Denies chest pain Denies shortness of breath Denies nausea vomiting diarrhea Denies fever chills Physical Exam Vital Signs: Vital Signs: Last Vital Signs Temp 97.4 F 09/22/22 15:14 Pulse 70 09/22/22 15:14 Resp 17 09/22/22 15:14 BP 131/61 09/22/22 15:14 Pulse Ox 98 09/22/22 15:14 O2 Del Method 09/22/22 15:14 O2 Flow Rate 2 09/22/22 07:15 BMI result Body Mass Index 39.4 Const: Other: Awake alert no acute distress Resp: Other: Clear to auscultation bilaterally no rales rhonchi or wheezes Cardio: Other: No S4; positive S1-S2; no S3 murmurs rubs or gallops GI: Other: Soft nontender nondistended normoactive bowel sounds Extrem: Other: No edema bilaterally Objective Data Active Medications Acetaminophen (Acetaminophen 325 Mg Tablet) 650 mg PO Q6H PRN PRN Reason: Pain, Mild (Pain Scale 1-3) Atorvastatin Calcium (Atorvastatin Calcium 20 Mg Tablet) 20 mg PO BEDTIME [facility] Last Admin: 09/21/22 21:23 Dose: 20 mg Documented By: TOMMIE Clonazepam (Clonazepam 0.5 Mg Tablet) 0.5 mg PO BEDTIME [facility] Last Admin: 09/21/22 21:23 Dose: 0.5 mg Documented By: TOMMIE Dextrose (Dextrose 50 % 25 Gm/50 Ml Syringe) 25 gm IVPUSH Q15M PRN; Protocol PRN Reason: per Hypoglycemia Standing Ord. Docusate Sodium (Docusate Sodium 100 Mg Capsule) 100 mg PO BID [facility] Last Admin: 09/22/22 08:19 Dose: 100 mg Documented By: IRVIN Fluticasone Propionate (Fluticasone Propionate Nasal 16 Gm [place]) 2 spray NOSTRIL-B DAILY [facility] Last Admin: 09/22/22 08:27 Dose: 2 spray Documented By: IRVIN Fluticasone/Vilanterol (Fluticasone/Vilanterol 200/25 Blst.W.Dev) 1 puff INHALE DAILY [facility] Last Admin: 09/22/22 08:03 Dose: 1 puff Documented By: HUBERT Furosemide (Furosemide 40 Mg Tablet) 40 mg PO DAILY [facility]; Protocol Last Admin: 09/22/22 08:19 Dose: 40 mg Documented By: IRVIN Glucose (Glucose Gel 15 Gm Gel..Gram.) 15 gm PO Q15M PRN; Protocol PRN Reason: per Hypoglycemia Standing Ord. Ceftriaxone Sodium 1 gm/ (Sodium Chloride) 50 mls @ 100 mls/hr IV Q24H [facility] Last Infusion: 09/21/22 15:45 Dose: 0 mls/hr Documented By: JEREMY Azithromycin 500 mg/ Sodium (Chloride) 250 mls @ 125 mls/hr IV Q24H [facility] Last Admin: 09/22/22 15:56 Dose: 125 mls/hr Documented By: IRVIN Insulin Glargine (Insulin Glargine,Hum.Rec.Anlog 100 Unit/Ml 10 Ml Vial) 25 unit SUBCUT DAILY [facility] Last Admin: 09/22/22 08:20 Dose: 25 unit Documented By: IRVIN Insulin Human Lispro (Insulin Lispro 100 Unit/Ml 3 Ml Vial) 0 unit SUBCUT QIDACHS [facility]; Protocol Last Admin: 09/22/22 11:21 Dose: Not Given Documented By: IRVIN Non-Admin Reason: No Insulin Coverage Levothyroxine Sodium (Levothyroxine Sodium 100 Mcg Tablet) 100 mcg PO DA JULIO@0600 [facility] Last Admin: 09/22/22 05:55 Dose: 100 mcg Documented By: GORGE Metoprolol Tartrate (Metoprolol Tartrate 12.5 Mg Halftab) 12.5 mg PO BID [facility]; Protocol Last Admin: 09/22/22 08:19 Dose: 12.5 mg Documented By: IRVIN Multivitamins/Vitamin C (Multivitamin Tablet) 1 tab PO DAILY [facility] Last Admin: 09/22/22 08:19 Dose: 1 tab Documented By: IRVIN Non-Formulary Medication (Dulaglutide [Trulicity]) 1.5 mg SUBCUT DURON [facility] Omeprazole (Omeprazole 20 Mg Capsule.) 20 mg PO BID@0630,1630 [facility] Last Admin: 09/22/22 05:55 Dose: 20 mg Documented By: GORGE Ondansetron HCl (Ondansetron Hcl 4 Mg/2 Ml Vial) 4 mg IVPUSH Q8H PRN PRN Reason: Nausea and Vomiting Pharmacy Consult (Consult Rx Perform Med Rec) 1 each MISCELLANE ONCE PRN PRN Reason: Consult order Sertraline HCl (Sertraline Hcl 50 Mg Tablet) 50 mg PO DAILY [facility] Last Admin: 09/22/22 08:19 Dose: 50 mg Documented By: IRVIN Sodium Chloride (0.9 % Sodium Chloride Flush 3 Ml Syringe) 3 ml IVFLUSH QSHIFT [facility] Last Admin: 09/22/22 08:18 Dose: 3 ml Documented By: IRVIN Tolterodine Tartrate (Tolterodine Tartrate La 2 Mg Cap.Er.24h) 4 mg PO DAILY [facility] Last Admin: 09/22/22 08:18 Dose: 4 mg Documented By: IRVIN Triamcinolone Acetonide (Triamcinolone Acet 0.1 % Cream 15 Gm Tube) 1 appl T OPICAL BID PRN PRN Reason: Dry Skin Vitamin D (Cholecalciferol (Vitamin D3) 25 Mcg Tablet) 50 mcg PO DAILY [facility] Last Admin: 09/22/22 08:19 Dose: 50 mcg Documented By: IRVIN Warfarin Sodium (Warfarin Sodium 0.5 Mg Halftab) 4.5 mg PO MoTh@1800 [facility] Warfarin Sodium (Warfarin Sodium 3 Mg Tablet) 3 mg PO SuTuWeFrSa@1800 [facility] Last Admin: 09/21/22 17:00 Dose: 3 mg Documented By: IGNACIO-NYMARCELOM Labs 09/22/22 06:01 09/22/22 06:01 Labs: Laboratory Results - last 24 hr 09/21/22 09/21/22 09/22/22 16:31 20:46 06:01 MCV 99.0 H MCH 30.9 MCHC 31.2 RDW 13.8 Plt Count 109 L MPV 12.1 Immature Gran % (Auto) 0.3 Neut % (Auto) 77.6 H Lymph % (Auto) 13.5 L [place] % (Auto) 4.8 Eos % (Auto) 3.6 Baso % (Auto) 0.2 Lymph # (Auto) 1.2 [place] # (Auto) 0.4 Eos # (Auto) 0.3 Baso # (Auto) 0.0 Abs Immat Gran (auto) 0.03 Absolute Neuts (auto) 6.7 Absolute Nucleated RBC 0.000 Nucleated RBC % (auto) 0.0 PT INR Anion Gap Estim Creat Clear Calc Estimated GFR POC Glucose 220 H 163 H Fasting Glucose Calcium Total Bilirubin AST ALT Alkaline Phosphatase Total Protein Albumin 09/22/22 09/22/22 09/22/22 06:01 06:01 07:14 MCV MCH MCHC RDW Plt Count MPV Immature Gran % (Auto) Neut % (Auto) Lymph % (Auto) [place] % (Auto) Eos % (Auto) Baso % (Auto) Lymph # (Auto) [place] # (Auto) Eos # (Auto) Baso # (Auto) Abs Immat Gran (auto) Absolute Neuts (auto) Absolute Nucleated RBC Nucleated RBC % (auto) PT 24.7 H INR 2.1 H Anion Gap 14 Estim Creat Clear Calc 43.2 Estimated GFR 52 POC Glucose 168 H Fasting Glucose 158 H Calcium 9.2 Total Bilirubin 0.6 AST 23 ALT 16 Alkaline Phosphatase 84 Total Protein 6.6 Albumin 3.5 09/22/22 09/22/22 11:02 16:05 MCV MCH MCHC RDW Plt Count MPV Immature Gran % (Auto) Neut % (Auto) Lymph % (Auto) [place] % (Auto) Eos % (Auto) Baso % (Auto) Lymph # (Auto) [place] # (Auto) Eos # (Auto) Baso # (Auto) Abs Immat Gran (auto) Absolute Neuts (auto) Absolute Nucleated RBC Nucleated RBC % (auto) PT INR Anion Gap Estim Creat Clear Calc Estimated GFR POC Glucose 137 H 207 H Fasting Glucose Calcium Total Bilirubin AST ALT Alkaline Phosphatase Total Protein Albumin Microbiology Microbiology Results: Microbiology 09/20/22 11:34 Blood Culture - Preliminary Blood - Venous Coag negative Staphylococcus 09/20/22 11:48 Blood Culture - Preliminary Blood - Venous Coag negative Staphylococcus Assessment and Plan (1) Sepsis: Status: Acute (2) Pneumonia: Status: Acute (3) Diabetes type 2, controlled: Status: Acute Plan 87 year old women admitted with sepsis secondary to CAP; sepsis resolved 1.Sepsis secondary to CAP -resolved -Rocephin(3) -supplemental oxygen as needed; wean as tolerated -BC 2/2 GPC... coag-negative Staph likely contaminant 2.DMII -acceptable control on current therapy -lispro sliding scale -adjust as indicated 3.Paroxysmal atrial fibrillation -acceptable control on current beta-blockade -follow daily INRs; adjust warfarin as indicated 4.GERD -Continue PPI Coumadin Full code Will require ongoing hospitalization to treat community-acquired pneumonia with IV antibiotics; blood cultures pending Time Spent With Patient Time: Total time managing care of this patient today ____ minutes. Quality Stroke Does the patient have a stroke diagnosis?: No VTE Prior VTE?: No VTE Risk Level:: Medical - moderate - high VTE Device Contraindication: Treatment Not Indicated VTE Drug Contraindication: N/A - Med Ordered
[2022-09-22] MEDS: cefTRIAXone sodium 1 GM in 0.9 % Sodium Chloride 50 ML IV (19:35)
[2022-09-22 20:14] LABS: Glucose, Whole Blood 228 mg/dL (60-115)
[2022-09-22] MEDS: Atorvastatin Calcium 20 MG TABLET PO (23:26)
[2022-09-22] MEDS: clonazePAM 0.5 MG TABLET PO (23:26)
[2022-09-23] VITALS (9 sets, daily range): BP systolic 120–143; BP diastolic 56–66; PULSE 57–92; RESP 17–20; TEMP 35.9–36.8; O2SAT 93–100
[2022-09-23] MEDS: Omeprazole 20 MG CAPSULE.DR PO ×2 (05:29→17:00)
[2022-09-23] MEDS: Levothyroxine Sodium 100 MCG TABLET PO (05:29)
[2022-09-23 06:29] LABS: MANUAL DIFF FLAG NO
[2022-09-23 06:45] LABS: INTERNATIONAL NORM RATIO 2.2 (0.9-1.1); Prothrombin Time 25.6 SEC (10.0-13.1)
[2022-09-23 06:52] LABS: Basophils Percent Auto 0.4 % (0-2); Eosinophils Absolute Auto 0.6 X10*3/uL (0.0-0.4); Eosinophils Percent Auto 6.7 % (0-4); Hematocrit 35.1 % (37.0-47.0); Hemoglobin 11.1 g/dl (12.0-16.0); Imm Gran Abs Auto 0.03 X10*3/uL (0.00-0.03); Imm Gran Pct Auto 0.4 % (0.0-0.4); Lymphocytes Percent Auto 24.3 % (20-40); Mean Corpuscular HGB Conc 31.6 g/dl (31.0-35.0); Mean Corpuscular Hemoglobin 30.8 pg (27.0-33.0); Mean Corpuscular Volume 97.5 fL (80.0-98.0); Mean Platelet Volume 11.6 fL (9.4-12.3); Monocytes Absolute Auto 0.4 X10*3/uL (0.1-1.2); Monocytes Percent Auto 4.6 % (2-11); Neutrophils Absolute Auto 5.2 x10*3/uL (2.0-8.3); Neutrophils Percent Auto 63.6 % (45-73); Platelet Count 115 X10*3/uL (160-400); Red Cell Distribution Width 13.5 % (11.0-16.0); White Blood Count 8.2 X10*3/uL (4.8-10.8)
[2022-09-23 07:02] LABS: Alanine Aminotransferase 17 U/L (0-31); Alkaline Phosphatase 75 U/L (39-117); Anion Gap 9 (12-20); Aspartate Amino Transferase 23 U/L (5-31); Bilirubin Total 0.6 mg/dL (0.0-1.0); Blood Urea Nitrogen 21 mg/dL (9-16); Calcium 8.9 mg/dL (8.4-10.2); Carbon Dioxide 35 mmol/L (22-29); Chloride 101 mmol/L (96-108); Creatinine Clr Calc Pharmacy 49.1; Estimated Glomerular Filt Rate > 60; Glucose Fasting 77 mg/dL (60-99); Potassium 3.3 mmol/L (3.3-5.1); Sodium 142 mmol/L (135-145)
[2022-09-23 07:59] LABS: Glucose, Whole Blood 89 mg/dL (60-115)
[2022-09-23] MEDS: Fluticasone/Vilanterol 200/25 BLST.W.DEV 1 PUFF INHALE (08:31)
[2022-09-23] MEDS: Sertraline HCL 50 MG TABLET PO (09:31)
[2022-09-23] MEDS: Metoprolol Tartrate 12.5 MG HALFTAB PO ×2 (09:31→20:21)
[2022-09-23] MEDS: Docusate Sodium 100 MG CAPSULE PO ×2 (09:31→20:21)
[2022-09-23] MEDS: Cholecalciferol (Vitamin D3) 25 MCG TABLET 50 MCG PO (09:31)
[2022-09-23] MEDS: Tolterodine Tartrate LA 2 MG CAP.ER.24H 4 MG PO (09:31)
[2022-09-23] MEDS: Multivitamin TABLET 1 TAB PO (09:31)
[2022-09-23] MEDS: 0.9 % Sodium Chloride Flush 3 ML SYRINGE IVFLUSH (09:31)
[2022-09-23] MEDS: Furosemide 40 MG TABLET PO (09:31)
[2022-09-23] MEDS: Fluticasone Propionate Nasal 16 GM SPRAY 2 SPRAY NOSTRIL-B (10:09)
[2022-09-23] MEDS: Insulin Lispro 100 UNIT/ML 3 ML VIAL SUBCUT ×2 (11:17→17:00)
[2022-09-23 11:22] LABS: Glucose, Whole Blood 186 mg/dL (60-115)
--- NOTE | 2022-09-23 14:04 | P.PNIM_ITS ---
Subjective Subjective Date of Service: 09/23/22 Interval History: developed Expiratory wheezing this a.m.. no respiratory distress. Otherwise no acute issues overnight Review of Systems Denies chest pain Denies shortness of breath Denies nausea vomiting diarrhea Denies fever chills Physical Exam Vital Signs: Vital Signs: Last Vital Signs Temp 97.5 F 09/23/22 07:48 Pulse 92 09/23/22 12:02 Resp 18 09/23/22 12:02 BP 138/61 09/23/22 07:48 Pulse Ox 100 09/23/22 07:48 O2 Del Method 09/23/22 07:48 O2 Flow Rate 2 09/23/22 07:48 BMI result Body Mass Index 39.4 Const: Other: Awake alert no acute distress Resp: Other: Clear to auscultation bilaterally no rales rhonchi or wheezes Cardio: Other: No S4; positive S1-S2; no S3 murmurs rubs or gallops GI: Other: Soft nontender nondistended normoactive bowel sounds Extrem: Other: No edema bilaterally Objective Data Active Medications Acetaminophen (Acetaminophen 325 Mg Tablet) 650 mg PO Q6H PRN PRN Reason: Pain, Mild (Pain Scale 1-3) Atorvastatin Calcium (Atorvastatin Calcium 20 Mg Tablet) 20 mg PO BEDTIME [facility] Last Admin: 09/22/22 23:26 Dose: 20 mg Documented By: GEORGIA Clonazepam (Clonazepam 0.5 Mg Tablet) 0.5 mg PO BEDTIME [facility] Last Admin: 09/22/22 23:26 Dose: 0.5 mg Documented By: GEORGIA Albuterol Sulfate 2.5 mg/ (Ipratropium [place] 0.5 mg) 0 mg INHALE RQ4H WHILE AWAKE [facility] Last Admin: 09/23/22 12:02 Dose: 1 each Documented By: HUBERT Dextrose (Dextrose 50 % 25 Gm/50 Ml Syringe) 25 gm IVPUSH Q15M PRN; Protocol PRN Reason: per Hypoglycemia Standing Ord. Docusate Sodium (Docusate Sodium 100 Mg Capsule) 100 mg PO BID [facility] Last Admin: 09/23/22 09:31 Dose: 100 mg Documented By: IRVIN Fluticasone Propionate (Fluticasone Propionate Nasal 16 Gm [place]) 2 spray NOSTRIL-B DAILY [facility] Last Admin: 09/23/22 10:09 Dose: 2 spray Documented By: IRVIN Fluticasone/Vilanterol (Fluticasone/Vilanterol 200/25 Blst.W.Dev) 1 puff INHALE DAILY [facility] Last Admin: 09/23/22 08:31 Dose: 1 puff Documented By: JOE Furosemide (Furosemide 40 Mg Tablet) 40 mg PO DAILY [facility]; Protocol Last Admin: 09/23/22 09:31 Dose: 40 mg Documented By: IRVIN Glucose (Glucose Gel 15 Gm Gel..Gram.) 15 gm PO Q15M PRN; Protocol PRN Reason: per Hypoglycemia Standing Ord. Ceftriaxone Sodium 1 gm/ (Sodium Chloride) 50 mls @ 100 mls/hr IV Q24H [facility] Last Infusion: 09/22/22 20:05 Dose: 0 mls/hr Documented By: GEORGIA Azithromycin 500 mg/ Sodium (Chloride) 250 mls @ 125 mls/hr IV Q24H [facility] Last Infusion: 09/22/22 19:35 Dose: 0 mls/hr Documented By: IRVIN Insulin Glargine (Insulin Glargine,Hum.Rec.Anlog 100 Unit/Ml 10 Ml Vial) 25 unit SUBCUT DAILY [facility] Last Admin: 09/23/22 09:32 Dose: Not Given Documented By: IRVIN Non-Admin Reason: Blood Glucose 89 Insulin Human Lispro (Insulin Lispro 100 Unit/Ml 3 Ml Vial) 0 unit SUBCUT QIDACHS [facility]; Protocol Last Admin: 09/23/22 11:17 Dose: 2 unit Documented By: IRVIN Levothyroxine Sodium (Levothyroxine Sodium 100 Mcg Tablet) 100 mcg PO DAILY@0600 [facility] Last Admin: 09/23/22 05:29 Dose: 100 mcg Documented By: GEORGIA Metoprolol Tartrate (Metoprolol Tartrate 12.5 Mg Halftab) 12.5 mg PO BID [facility]; Protocol Last Admin: 09/23/22 09:31 Dose: 12.5 mg Documented By: IRVIN Multivitamins/Vitamin C (Multivitamin Tablet) 1 tab PO DAILY [facility] Last Admin: 09/23/22 09:31 Dose: 1 tab Documented By: IRVIN Non-Formulary Medication (Dulaglutide [Trulicity]) 1.5 mg SUBCUT [place]UR[place] [facility] Omeprazole (Omeprazole 20 Mg Capsule.Dr) 20 mg PO BID@0630,1630 [facility] Last Admin: 09/23/22 05:29 Dose: 20 mg Documented By: GEORGIA Ondansetron HCl (Ondansetron Hcl 4 Mg/2 Ml Vial) 4 mg IVPUSH Q8H PRN PRN Reason: Nausea and Vomiting Pharmacy Consult (Consult Rx Perform Med Rec) 1 each MISCELLANE ONCE PRN PRN Reason: Consult order Sertraline HCl (Sertraline Hcl 50 Mg Tablet) 50 mg PO DAILY [facility] Last Admin: 09/23/22 09:31 Dose: 50 mg Documented By: IRVIN Sodium Chloride (0.9 % Sodium Chloride Flush 3 Ml Syringe) 3 ml IVFLUSH QSHIFT [facility] Last Admin: 09/23/22 09:31 Dose: 3 ml Documented By: IRVIN Tolterodine Tartrate (Tolterodine Tartrate [place] 2 Mg Cap.Er.24h) 4 mg PO DAILY [facility] Last Admin: 09/23/22 09:31 Dose: 4 mg Documented By: IRVIN Triamcinolone Acetonide (Triamcinolone Acet 0.1 % Cream 15 Gm Tube) 1 appl TOPICAL BID PRN PRN Reason: Dry Skin Vitamin D (Cholecalciferol (Vitamin D3) 25 Mcg Tablet) 50 mcg PO DAILY [facility] Last Admin: 09/23/22 09:31 Dose: 50 mcg Documented By: IRVIN Warfarin Sodium (Warfarin Sodium 3 Mg Tablet) 3 mg PO SuTuWeFrSa@1800 [facility] Last Admin: 09/21/22 17:00 Dose: 3 mg Documented By: JEREMY Warfarin Sodium 2.5 mg/ (Warfarin Sodium 2 mg) 4.5 mg PO MoTh@1800 [facility] Last Admin: 09/22/22 19:35 Dose: 4.5 mg Documented By: IRVIN Labs 09/23/22 05:48 09/23/22 05:48 Labs: Laboratory Results - last 24 hr 09/22/22 09/22/22 09/23/22 16:05 20:07 05:48 MCV 97.5 MCH 30.8 MCHC 31.6 RDW 13.5 Plt Count 115 L MPV 11.6 Immature Gran % (Auto) 0.4 Neut % (Auto) 63.6 Lymph % (Auto) 24.3 [place] % (Auto) 4.6 Eos % (Auto) 6.7 H Baso % (Auto) 0.4 Lymph # (Auto) 2.0 [place] # (Auto) 0.4 Eos # (Auto) 0.6 H Baso # (Auto) 0.0 Abs Immat Gran (auto) 0.03 Absolute Neuts (auto) 5.2 Absolute Nucleated RBC 0.000 Nucleated RBC % (auto) 0.0 PT INR Anion Gap Estim Creat Clear Calc Estimated GFR POC Glucose 207 H 228 H Fasting Glucose Calcium Total Bilirubin AST ALT Alkaline Phosphatase Total Protein Albumin 09/23/22 09/23/22 09/23/22 05:48 05:48 07:55 MCV MCH MCHC RDW Plt Count MPV Immature Gran % (Auto) Neut % (Auto) Lymph % (Auto) [place] % (Auto) Eos % (Auto) Baso % (Auto) Lymph # (Auto) [place] # (Auto) Eos # (Auto) Baso # (Auto) Abs Immat Gran (auto) Absolute Neuts (auto) Absolute Nucleated RBC Nucleated RBC % (auto) PT 25.6 H INR 2.2 H Anion Gap 9 L Estim Creat Clear Calc 49.1 Estimated GFR > 60 POC Glucose 89 Fasting Glucose 77 Calcium 8.9 Total Bilirubin 0.6 AST 23 ALT 17 Alkaline Phosphatase 75 Total Protein 6.0 L Albumin 3.0 L 09/23/22 11:09 MCV MCH MCHC RDW Plt Count MPV Immature Gran % (Auto) Neut % (Auto) Lymph % (Auto) [place] % (Auto) Eos % (Auto) Baso % (Auto) Lymph # (Auto) [place] # (Auto) Eos # (Auto) Baso # (Auto) Abs Immat Gran (auto) Absolute Neuts (auto) Absolute Nucleated RBC Nucleated RBC % (auto) PT INR Anion Gap Estim Creat Clear Calc Estimated GFR POC Glucose 186 H Fasting Glucose Calcium Total Bilirubin AST ALT Alkaline Phosphatase Total Protein Albumin Microbiology Microbiology Results: Microbiology 09/20/22 11:34 Blood Culture - Final Blood - Venous Staphylococcus epidermidis Coag negative Staphylococcus 09/20/22 11:48 Blood Culture - Final Blood - Venous Staphylococcus epidermidis Assessment and Plan (1) Sepsis: Status: Acute (2) Pneumonia: Status: Acute (3) Diabetes type 2, controlled: Status: Acute Plan 87 year old women admitted with sepsis secondary to CAP; sepsis resolved 1.Sepsis secondary to CAP -resolved -Rocephin(4) -supplemental oxygen as needed; wean as tolerated( has p.r.n. O2 at home) -BC 2/2 GPC... coag-negative Staph likely contaminant 2.DMII -acceptable control on current therapy -lispro sliding scale -adjust as indicated 3.Paroxysmal atrial fibrillation -acceptable control on current beta-blockade -follow daily INRs; adjust warfarin as indicated 4.GERD -Continue PPI Coumadin Full code Will require ongoing hospitalization to treat community-acquired pneumonia with IV antibiotics; blood cultures pending Time Spent With Patient Time: Total time managing care of this patient today ____ minutes. Quality Stroke Does the patient have a stroke diagnosis?: No VTE Prior VTE?: No VTE Risk Level:: Medical - moderate - high VTE Device Contraindication: Treatment Not Indicated VTE Drug Contraindication: N/A - Med Ordered
[2022-09-23 15:06] LABS: Glucose, Whole Blood 173 mg/dL (60-115)
[2022-09-23] MEDS: Azithromycin 500 MG in 0.9 % Sodium Chloride 250 ML 125 MG IV (15:26)
--- NOTE | 2022-09-23 15:42 | MHC.CM.PN ---
per rounds pt will mnot be ready for dc over the weekend dc plan tbd home/vna vs str
[2022-09-23] MEDS: Warfarin Sodium 3 MG TABLET PO (17:00)
[2022-09-23 18:57] LABS: Glucose, Whole Blood 137 mg/dL (60-115)
--- NOTE | 2022-09-23 19:54 | PM.EVENT ---
Event Note Date of Service: 09/25/22 Event Note: Pt peripheral iv line lost, unable to reinstate. Nurses tried. At this time will switch her IV antibiotics to p.o. given the sensitivity on cultures Time Spent With Patient Time: Total time managing care of this patient today ____ minutes.
[2022-09-23] MEDS: Atorvastatin Calcium 20 MG TABLET PO (20:21)
[2022-09-23] MEDS: clonazePAM 0.5 MG TABLET PO (20:21)
[2022-09-23] MEDS: levoFLOXacin 750 MG TABLET PO (20:21)
--- NOTE | 2022-09-23 20:54 | PC.NURSE ---
Assumed care at 1900. Pt A&Ox4. No pain reported. Crackles to b/l lungs with productive cough. POC blood sugar 137, no coverage needed. Pt medicated according to SEP. Report given to S3 RN at 2100 and transported to med surg floor.
[2022-09-24] VITALS (7 sets, daily range): BP systolic 132–165; BP diastolic 59–74; PULSE 67–85; RESP 18–19; TEMP 36.3–37.2; O2SAT 97–100
[2022-09-24] MEDS: Levothyroxine Sodium 100 MCG TABLET PO (05:34)
[2022-09-24] MEDS: Omeprazole 20 MG CAPSULE.DR PO ×2 (05:34→17:19)
[2022-09-24 06:49] LABS: MANUAL DIFF FLAG NO
[2022-09-24 06:54] LABS: Basophils Percent Auto 0.4 % (0-2); Eosinophils Absolute Auto 0.6 X10*3/uL (0.0-0.4); Eosinophils Percent Auto 7.5 % (0-4); Hematocrit 34.5 % (37.0-47.0); Imm Gran Abs Auto 0.03 X10*3/uL (0.00-0.03); Imm Gran Pct Auto 0.4 % (0.0-0.4); Lymphocytes Absolute Auto 1.6 X10*3/uL (1.2-4.9); Lymphocytes Percent Auto 20.8 % (20-40); Mean Corpuscular HGB Conc 31.9 g/dl (31.0-35.0); Mean Corpuscular Hemoglobin 30.6 pg (27.0-33.0); Mean Corpuscular Volume 95.8 fL (80.0-98.0); Mean Platelet Volume 11.3 fL (9.4-12.3); Monocytes Absolute Auto 0.4 X10*3/uL (0.1-1.2); Monocytes Percent Auto 4.8 % (2-11); Neutrophils Percent Auto 66.1 % (45-73); Platelet Count 124 X10*3/uL (160-400); Red Cell Distribution Width 13.2 % (11.0-16.0); White Blood Count 7.5 X10*3/uL (4.8-10.8)
[2022-09-24 06:56] LABS: INTERNATIONAL NORM RATIO 2.6 (0.9-1.1); Prothrombin Time 30.5 SEC (10.0-13.1)
[2022-09-24 07:38] LABS: Glucose, Whole Blood 119 mg/dL (60-115)
[2022-09-24 07:39] LABS: Alanine Aminotransferase 17 U/L (0-31); Albumin Level 3.1 g/dL (3.5-5.0); Alkaline Phosphatase 75 U/L (39-117); Anion Gap 14 (12-20); Aspartate Amino Transferase 20 U/L (5-31); Bilirubin Total 0.6 mg/dL (0.0-1.0); Blood Urea Nitrogen 15 mg/dL (9-16); Calcium 9.1 mg/dL (8.4-10.2); Carbon Dioxide 33 mmol/L (22-29); Chloride 101 mmol/L (96-108); Creatinine Clr Calc Pharmacy 51.4; Estimated Glomerular Filt Rate > 60; Glucose Fasting 114 mg/dL (60-99); Potassium 3.6 mmol/L (3.3-5.1); Sodium 144 mmol/L (135-145); Total Protein 6.2 g/dL (6.5-8.0)
[2022-09-24] MEDS: Metoprolol Tartrate 12.5 MG HALFTAB PO ×2 (08:01→21:25)
[2022-09-24] MEDS: Tolterodine Tartrate LA 2 MG CAP.ER.24H 4 MG PO (08:01)
[2022-09-24] MEDS: Sertraline HCL 50 MG TABLET PO (08:01)
[2022-09-24] MEDS: Insulin Glargine,Hum.rec.anlog 100 UNIT/ML 10 ML VIAL 25 UNIT SUBCUT (08:01)
[2022-09-24] MEDS: Multivitamin TABLET 1 TAB PO (08:01)
[2022-09-24] MEDS: Cholecalciferol (Vitamin D3) 25 MCG TABLET 50 MCG PO (08:01)
[2022-09-24] MEDS: 0.9 % Sodium Chloride Flush 3 ML SYRINGE IVFLUSH ×3 (08:01→21:26)
[2022-09-24] MEDS: Docusate Sodium 100 MG CAPSULE PO ×2 (08:01→21:25)
[2022-09-24] MEDS: Furosemide 40 MG TABLET PO (08:01)
[2022-09-24 11:53] LABS: Glucose, Whole Blood 207 mg/dL (60-115)
[2022-09-24] MEDS: Insulin Lispro 100 UNIT/ML 3 ML VIAL SUBCUT ×3 (12:05→21:25)
--- NOTE | 2022-09-24 13:39 | HO.PM.IMPN ---
Subjective Subjective Date of Service: 09/24/22 Interval History: no acute issues overnight. More alert Review of Systems Denies chest pain Denies shortness of breath Denies nausea vomiting diarrhea Denies fever chills Physical Exam Vital Signs: Vital Signs: Last Vital Signs Temp 98.4 F 09/24/22 07:33 Pulse 78 09/24/22 07:44 Resp 18 09/24/22 07:44 BP 165/74 H 09/24/22 07:33 Pulse Ox 97 09/24/22 07:33 O2 Del Method 09/24/22 07:33 O2 Flow Rate 2.0 09/24/22 07:33 BMI result Body Mass Index 39.4 Const: Other: Awake alert no acute distress Resp: Other: Clear to auscultation bilaterally no rales rhonchi or wheezes Cardio: Other: No S4; positive S1-S2; no S3 murmurs rubs or gallops GI: Other: Soft nontender nondistended normoactive bowel sounds Extrem: Other: No edema bilaterally Objective Data Active Medications Acetaminophen (Acetaminophen 325 Mg Tablet) 650 mg PO Q6H PRN PRN Reason: Pain, Mild (Pain Scale 1-3) Atorvastatin Calcium (Atorvastatin Calcium 20 Mg Tablet) 20 mg PO BEDTIME [facility] Last Admin: 09/23/22 20:21 Dose: 20 mg Documented By: PADMA Clonazepam (Clonazepam 0.5 Mg Tablet) 0.5 mg PO BEDTIME [facility] Last Admin: 09/23/22 20:21 Dose: 0.5 mg Documented By: PADMA Albuterol Sulfate 2.5 mg/ (Ipratropium [place] 0.5 mg) 0 mg INHALE RQ4H WHILE AWAKE [facility] Last Admin: 09/24/22 11:31 Dose: Not Given Documented By: FREDDY Non-Admin Reason: pt unavail Dextrose (Dextrose 50 % 25 Gm/50 Ml Syringe) 25 gm IVPUSH Q15M PRN; Protocol PRN Reason: per Hypoglycemia Standing Ord. Docusate Sodium (Docusate Sodium 100 Mg Capsule) 100 mg PO BID [facility] Last Admin: 09/24/22 08:01 Dose: 100 mg Documented By: BEVERLEY Fluticasone Propionate (Fluticasone Propionate Nasal 16 Gm [place]) 2 spray NOSTRIL-B DAILY [facility] Last Admin: 09/24/22 10:30 Dose: Not Given Documented By: BEVERLEY Non-Admin Reason: Patient Refused Fluticasone/Vilanterol (Fluticasone/Vilanterol 200/25 Blst.W.Dev) 1 puff INHALE DAILY [facility] Last Admin: 09/24/22 07:43 Dose: Not Given Documented By: FREDDY Non-Admin Reason: Med Not Available Furosemide (Furosemide 40 Mg Tablet) 40 mg PO DAILY [facility]; Protocol Last Admin: 09/24/22 08:01 Dose: 40 mg Documented By: BEVERLEY Glucose (Glucose Gel 15 Gm Gel..Gram.) 15 gm PO Q15M PRN; Protocol PRN Reason: per Hypoglycemia Standing Ord. Insulin Glargine (Insulin Glargine,Hum.Rec.Anlog 100 Unit/Ml 10 Ml Vial) 25 unit SUBCUT DAILY [facility] Last Admin: 09/24/22 08:01 Dose: 25 unit Documented By: BEVERLEY Insulin Human Lispro (Insulin Lispro 100 Unit/Ml 3 Ml Vial) 0 unit SUBCUT QIDACHS [facility]; Protocol Last Admin: 09/24/22 12:05 Dose: 4 unit Documented By: BEVERLEY Levofloxacin (Levofloxacin 750 Mg Tablet) 750 mg PO Q24H [facility] Last Admin: 09/23/22 20:21 Dose: 750 mg Documented By: PADMA Levothyroxine Sodium (Levothyroxine Sodium 100 Mcg Tablet) 100 mcg PO DAILY@0600 [facility] Last Admin: 09/24/22 05:34 Dose: 100 mcg Documented By: ALEX Metoprolol Tartrate (Metoprolol Tartrate 12.5 Mg Halftab) 12.5 mg PO BID [facility]; Protocol Last Admin: 09/24/22 08:01 Dose: 12.5 mg Documented By: BEVERLEY Multivitamins/Vitamin C (Multivitamin Tablet) 1 tab PO DAILY [facility] Last Admin: 09/24/22 08:01 Dose: 1 tab Documented By: BEVERLEY Non-Formulary Medication (Dulaglutide [Trulicity]) 1.5 mg SUBCUT [facility] Omeprazole (Omeprazole 20 Mg Capsule.) 20 mg PO BID@0630,1630 [facility] Last Admin: 09/24/22 05:34 Dose: 20 mg Documented By: HO.CASTILM Ondansetron HCl (Ondansetron Hcl 4 Mg/2 Ml Vial) 4 mg IVPUSH Q8H PRN PRN Reason: Nausea and Vomiting Pharmacy Consult (Consult Rx Perform Med Rec) 1 each MISCELLANE ONCE PRN PRN Reason: Consult order Sertraline HCl (Sertraline Hcl 50 Mg Tablet) 50 mg PO DAILY [facility] Last Admin: 09/24/22 08:01 Dose: 50 mg Documented By: BEVERLEY Sodium Chloride (0.9 % Sodium Chloride Flush 3 Ml Syringe) 3 ml IVFLUSH QSHIFT [facility] Last Admin: 09/24/22 08:01 Dose: 3 ml Documented By: BEVERLEY Tolterodine Tartrate (Tolterodine Tartrate [place] 2 Mg Cap.Er.24h) 4 mg PO DAILY [facility] Last Admin: 09/24/22 08:01 Dose: 4 mg Documented By: BEVERLEY Triamcinolone Acetonide (Triamcinolone Acet 0.1 % Cream 15 Gm Tube) 1 appl TOPICAL BID PRN PRN Reason: Dry Skin Vitamin D (Cholecalciferol (Vitamin D3) 25 Mcg Tablet) 50 mcg PO DAILY [facility] Last Admin: 09/24/22 08:01 Dose: 50 mcg Documented By: BEVERLEY Warfarin Sodium (Warfarin Sodium 3 Mg Tablet) 3 mg PO SuTuWeFrSa@1800 [facility] Last Admin: 09/23/22 17:00 Dose: 3 mg Documented By: IRVIN Warfarin Sodium 2.5 mg/ (Warfarin Sodium 2 mg) 4.5 mg PO MoTh@1800 [facility] Last Admin: 09/22/22 19:35 Dose: 4.5 mg Documented By: IRVIN Labs 09/24/22 05:59 09/24/22 05:59 Labs: Laboratory Results - last 24 hr 09/23/22 09/23/22 09/24/22 14:40 18:40 05:59 MCV 95.8 MCH 30.6 MCHC 31.9 RDW 13.2 Plt Count 124 L MPV 11.3 Immature Gran % (Auto) 0.4 Neut % (Auto) 66.1 Lymph % (Auto) 20.8 [place] % (Auto) 4.8 Eos % (Auto) 7.5 H Baso % (Auto) 0.4 Lymph # (Auto) 1.6 [place] # (Auto) 0.4 Eos # (Auto) 0.6 H Baso # (Auto) 0.0 Abs Immat Gran (auto) 0.03 Absolute Neuts (auto) 5.0 Absolute Nucleated RBC 0.000 Nucleated RBC % (auto) 0.0 PT INR Anion Gap Estim Creat Clear Calc Estimated GFR POC Glucose 173 H 137 H Fasting Glucose Calcium Total Bilirubin AST ALT Alkaline Phosphatase Total Protein Albumin 09/24/22 09/24/22 09/24/22 05:59 05:59 07:28 MCV MCH MCHC RDW Plt Count MPV Immature Gran % (Auto) Neut % (Auto) Lymph % (Auto) [place] % (Auto) Eos % (Auto) Baso % (Auto) Lymph # (Auto) [place] # (Auto) Eos # (Auto) Baso # (Auto) Abs Immat Gran (auto) Absolute Neuts (auto) Absolute Nucleated RBC Nucleated RBC % (auto) PT 30.5 H INR 2.6 H Anion Gap 14 Estim Creat Clear Calc 51.4 Estimated GFR > 60 POC Glucose 119 H Fasting Glucose 114 H Calcium 9.1 Total Bilirubin 0.6 AST 20 ALT 17 Alkaline Phosphatase 75 Total Protein 6.2 L Albumin 3.1 L 09/24/22 11:47 MCV MCH MCHC RDW Plt Count MPV Immature Gran % (Auto) Neut % (Auto) Lymph % (Auto) [place] % (Auto) Eos % (Auto) Baso % (Auto) Lymph # (Auto) [place] # (Auto) Eos # (Auto) Baso # (Auto) Abs Immat Gran (auto) Absolute Neuts (auto) Absolute Nucleated RBC Nucleated RBC % (auto) PT INR Anion Gap Estim Creat Clear Calc Estimated GFR POC Glucose 207 H Fasting Glucose Calcium Total Bilirubin AST ALT Alkaline Phosphatase Total Protein Albumin Microbiology Microbiology Results: Microbiology 09/20/22 11:34 Blood Culture - Final Blood - Venous Staphylococcus epidermidis Coag negative Staphylococcus 09/20/22 11:48 Blood Culture - Final Blood - Venous Staphylococcus epidermidis Assessment and Plan (1) Sepsis: Status: Acute (2) Pneumonia: Status: Acute (3) Diabetes type 2, controlled: Status: Acute (4) Paroxysmal A-fib: Status: Acute Plan 87 year old women admitted with sepsis secondary to CAP; sepsis resolved 1.Sepsis secondary to CAP -resolved -Rocephin(5) -supplemental oxygen as needed; wean as tolerated( has p.r.n. O2 at home) -BC 2/2 GPC... coag-negative Staph likely contaminant 2.DMII -acceptable control on current therapy -lispro sliding scale -adjust as indicated 3.Paroxysmal atrial fibrillation -acceptable control on current beta-blockade -follow daily INRs; therapeutic 4.GERD -Continue PPI Coumadin Full code Will require ongoing hospitalization to treat community-acquired pneumonia with IV antibiotics; blood cultures pending Time Spent With Patient Time: Total time managing care of this patient today ____ minutes. Quality Stroke Does the patient have a stroke diagnosis?: No VTE Prior VTE?: No VTE Risk Level:: Medical - moderate - high VTE Device Contraindication: Treatment Not Indicated VTE Drug Contraindication: N/A - Med Ordered
[2022-09-24 17:14] LABS: Glucose, Whole Blood 154 mg/dL (60-115)
[2022-09-24] MEDS: Warfarin Sodium 3 MG TABLET PO (17:19)
[2022-09-24 20:26] LABS: Glucose, Whole Blood 186 mg/dL (60-115)
[2022-09-24] MEDS: Acetaminophen 325 MG TABLET 650 MG PO (21:25)
[2022-09-24] MEDS: Atorvastatin Calcium 20 MG TABLET PO (21:25)
[2022-09-24] MEDS: levoFLOXacin 750 MG TABLET PO (21:25)
[2022-09-24] MEDS: clonazePAM 0.5 MG TABLET PO (21:26)
[2022-09-25] VITALS (9 sets, daily range): BP systolic 129–143; BP diastolic 58–78; PULSE 56–97; RESP 16–18; TEMP 36–36.7; O2SAT 93–100
[2022-09-25] MEDS: Levothyroxine Sodium 100 MCG TABLET PO (05:30)
[2022-09-25] MEDS: Omeprazole 20 MG CAPSULE.DR PO ×2 (05:30→17:36)
[2022-09-25] MEDS: Acetaminophen 325 MG TABLET 650 MG PO ×2 (06:09→20:28)
[2022-09-25 06:21] LABS: INTERNATIONAL NORM RATIO 2.9 (0.9-1.1); Prothrombin Time 34.9 SEC (10.0-13.1)
[2022-09-25 07:40] LABS: Glucose, Whole Blood 122 mg/dL (60-115)
[2022-09-25] MEDS: Furosemide 40 MG TABLET PO (09:25)
[2022-09-25] MEDS: Metoprolol Tartrate 12.5 MG HALFTAB PO ×2 (09:25→20:28)
[2022-09-25] MEDS: Multivitamin TABLET 1 TAB PO (09:25)
[2022-09-25] MEDS: Cholecalciferol (Vitamin D3) 25 MCG TABLET 50 MCG PO (09:25)
[2022-09-25] MEDS: Docusate Sodium 100 MG CAPSULE PO ×2 (09:25→20:27)
[2022-09-25] MEDS: Sertraline HCL 50 MG TABLET PO (09:25)
[2022-09-25] MEDS: 0.9 % Sodium Chloride Flush 3 ML SYRINGE IVFLUSH ×3 (09:26→20:30)
[2022-09-25] MEDS: Insulin Glargine,Hum.rec.anlog 100 UNIT/ML 10 ML VIAL 25 UNIT SUBCUT (09:26)
[2022-09-25] MEDS: Tolterodine Tartrate LA 2 MG CAP.ER.24H 4 MG PO (09:38)
--- NOTE | 2022-09-25 11:20 | HO.PM.IMPN ---
Subjective Subjective Date of Service: 09/25/22 Interval History: Breathing continues to improve. Continues to have O2 req Review of Systems Denies chest pain Denies shortness of breath Denies nausea vomiting diarrhea Denies fever chills Physical Exam Vital Signs: Vital Signs: Last Vital Signs Temp 96.8 F 09/25/22 07:44 Pulse 76 09/25/22 08:08 Resp 18 09/25/22 08:08 BP 141/66 H 09/25/22 07:44 Pulse Ox 99 09/25/22 07:44 O2 Del Method 09/25/22 07:44 O2 Flow Rate 2 09/25/22 07:44 BMI result Body Mass Index 39.4 Const: Other: Awake alert no acute distress Resp: Other: Diffuse expiratory wheezes all ross Cardio: Other: No S4; positive S1-S2; no S3 murmurs rubs or gallops GI: Other: Soft nontender nondistended normoactive bowel sounds Extrem: Other: No edema bilaterally Objective Data Active Medications Acetaminophen (Acetaminophen 325 Mg Tablet) 650 mg PO Q6H PRN PRN Reason: Pain, Mild (Pain Scale 1-3) Last Admin: 09/25/22 06:09 Dose: 650 mg Documented By: ALEX Atorvastatin Calcium (Atorvastatin Calcium 20 Mg Tablet) 20 mg PO BEDTIME [facility] Last Admin: 09/24/22 21:25 Dose: 20 mg Documented By: ALEX Clonazepam (Clonazepam 0.5 Mg Tablet) 0.5 mg PO BEDTIME [facility] Last Admin: 09/24/22 21:26 Dose: 0.5 mg Documented By: ALEX Albuterol Sulfate 2.5 mg/ (Ipratropium [place] 0.5 mg) 0 mg INHALE RQ4H WHILE AWAKE [facility] Last Admin: 09/25/22 08:06 Dose: 1 each Documented By: FREDDY Dextrose (Dextrose 50 % 25 Gm/50 Ml Syringe) 25 gm IVPUSH Q15M PRN; Protocol PRN Reason: per Hypoglycemia Standing Ord. Docusate Sodium (Docusate Sodium 100 Mg Capsule) 100 mg PO BID [facility] Last Admin: 09/25/22 09:25 Dose: 100 mg Documented By: BEVERLEY Fluticasone Propionate (Fluticasone Propionate Nasal 16 Gm [place]) 2 spray NOSTRIL-B DAILY [facility] Last Admin: 09/25/22 09:26 Dose: Not Given Documented By: BEVERLEY Non-Admin Reason: Patient Refused Fluticasone/Vilanterol (Fluticasone/Vilanterol 200/25 Blst.W.Dev) 1 puff INHALE DAILY [facility] Last Admin: 09/25/22 08:08 Dose: Not Given Documented By: FREDDY Non-Admin Reason: Med Not Available Furosemide (Furosemide 40 Mg Tablet) 40 mg PO DAILY [facility]; Protocol Last Admin: 09/25/22 09:25 Dose: 40 mg Documented By: BEVERLEY Glucose (Glucose Gel 15 Gm Gel..Gram.) 15 gm PO Q15M PRN; Protocol PRN Reason: per Hypoglycemia Standing Ord. Insulin Glargine (Insulin Glargine,Hum.Rec.Anlog 100 Unit/Ml 10 Ml Vial) 25 unit SUBCUT DAILY [facility] Last Admin: 09/25/22 09:26 Dose: 25 unit Documented By: BEVERLEY Insulin Human Lispro (Insulin Lispro 100 Unit/Ml 3 Ml Vial) 0 unit SUBCUT QIDACHS [facility]; Protocol Last Admin: 09/25/22 07:49 Dose: Not Given Documented By: BEVERLEY Non-Admin Reason: No Insulin Coverage Levofloxacin (Levofloxacin 750 Mg Tablet) 750 mg PO Q24H [facility] Last Admin: 09/24/22 21:25 Dose: 750 mg Documented By: ALEX Levothyroxine Sodium (Levothyroxine Sodium 100 Mcg Tablet) 100 mcg PO DAILY@0600 [facility] Last Admin: 09/25/22 05:30 Dose: 100 mcg Documented By: ALEX Metoprolol Tartrate (Metoprolol Tartrate 12.5 Mg Halftab) 12.5 mg PO BID [facility]; Protocol Last Admin: 09/25/22 09:25 Dose: 12.5 mg Documented By: BEVERLEY Multivitamins/Vitamin C (Multivitamin Tablet) 1 tab PO DAILY [facility] Last Admin: 09/25/22 09:25 Dose: 1 tab Documented By: BEVERLEY Non-Formulary Medication (Dulaglutide [Trulicity]) 1.5 mg SUBCUT [place]UR[place] [facility] Omeprazole (Omeprazole 20 Mg Sven.) 20 mg PO BID@0630,1630 [facility] Last Admin: 09/25/22 05:30 Dose: 20 mg Documented By: ALEX Ondansetron HCl (Ondansetron Hcl 4 Mg/2 Ml Vial) 4 mg IVPUSH Q8H PRN PRN Reason: Nausea and Vomiting Pharmacy Consult (Consult Rx Perform Med Rec) 1 each MISCELLANE ONCE PRN PRN Reason: Consult order Sertraline HCl (Sertraline Hcl 50 Mg Tablet) 50 mg PO DAILY [facility] Last Admin: 09/25/22 09:25 Dose: 50 mg Documented By: BEVERLEY Sodium Chloride (0.9 % Sodium Chloride Flush 3 Ml Syringe) 3 ml IVFLUSH QSHIFT [facility] Last Admin: 09/25/22 09:26 Dose: 3 ml Documented By: BEVERLEY Tolterodine Tartrate (Tolterodine Tartrate La 2 Mg Cap.Er.24h) 4 mg PO DAILY [facility] Last Admin: 09/25/22 09:38 Dose: 4 mg Documented By: BEVERLEY Triamcinolone Acetonide (Triamcinolone Acet 0.1 % Cream 15 Gm Tube) 1 appl TOPICAL BID PRN PRN Reason: Dry Skin Vitamin D (Cholecalciferol (Vitamin D3) 25 Mcg Tablet) 50 mcg PO DAILY [facility] Last Admin: 09/25/22 09:25 Dose: 50 mcg Documented By: BEVERLEY Warfarin Sodium (Warfarin Sodium 3 Mg Tablet) 3 mg PO SuTuWeFrSa@1800 [facility] Last Admin: 09/24/22 17:19 Dose: 3 mg Documented By: BEVERLEY Warfarin Sodium 2.5 mg/ (Warfarin Sodium 2 mg) 4.5 mg PO MoTh@1800 [facility] Last Admin: 09/22/22 19:35 Dose: 4.5 mg Documented By: CTORRZ Labs 09/24/22 05:59 09/24/22 05:59 Labs: Laboratory Results - last 24 hr 09/24/22 09/24/22 09/24/22 11:47 17:08 19:34 PT INR POC Glucose 207 H 154 H 186 H 09/25/22 09/25/22 05:06 07:34 PT 34.9 H INR 2.9 H POC Glucose 122 H Assessment and Plan (1) Sepsis: Status: Acute (2) Pneumonia: Status: Acute (3) Diabetes type 2, controlled: Status: Acute (4) Paroxysmal A-fib: Status: Acute Plan 87 year old women admitted with sepsis secondary to CAP; sepsis resolved. IV infiltrated now on p.o. Levaquin to complete 10 day course. Awaiting short-term rehab placement 1.Sepsis secondary to CAP -resolved - completed 5 days of ceftriaxone/ 3 days azithromycin. . . Switched to Levaquin secondary to lost IV access -supplemental oxygen as needed; wean as tolerated( has p.r.n. O2 at home) -BC 2/2 GPC... coag-negative Staph likely contaminant 2.DMII -acceptable control on current therapy -lispro sliding scale -adjust as indicated 3.Paroxysmal atrial fibrillation -acceptable control on current beta-blockade -follow daily INRs; therapeutic 4.GERD -Continue PPI Coumadin Full code Will require ongoing hospitalization to treat community-acquired pneumonia with IV antibiotics; blood cultures pending. As per physical therapy screen patient will need short-term rehab upon discharge. Daughter Johnna Sethi updated and is in agreement with plan Time Spent With Patient Time: Total time managing care of this patient today ____ minutes. Quality Stroke Does the patient have a stroke diagnosis?: No VTE Prior VTE?: No VTE Risk Level:: Medical - moderate - high VTE Device Contraindication: Treatment Not Indicated VTE Drug Contraindication: N/A - Med Ordered
[2022-09-25 11:29] LABS: Glucose, Whole Blood 240 mg/dL (60-115)
[2022-09-25] MEDS: Insulin Lispro 100 UNIT/ML 3 ML VIAL SUBCUT ×3 (11:49→21:02)
[2022-09-25 17:09] LABS: Glucose, Whole Blood 170 mg/dL (60-115)
[2022-09-25] MEDS: Warfarin Sodium 3 MG TABLET PO (17:36)
[2022-09-25] MEDS: clonazePAM 0.5 MG TABLET PO (20:26)
[2022-09-25] MEDS: Atorvastatin Calcium 20 MG TABLET PO (20:26)
[2022-09-25] MEDS: levoFLOXacin 750 MG TABLET PO (20:26)
[2022-09-25 20:34] LABS: Glucose, Whole Blood 175 mg/dL (60-115)
[2022-09-25] MEDS: guaiFENesin DM 100/10/5 ML 5 ML SYRUP PO (22:56)
--- NOTE | 2022-09-26 | PC.NURSE ---
Pt has been having persistent cough with difficulty expectorating secretions, Dr. Vanegas made aware, Robitussin DM given with some relief.
[2022-09-26 03:37] VITALS: BP 121/59; PULSE 60; RESP 18; TEMP 36.6; O2SAT 99
[2022-09-26] MEDS: Levothyroxine Sodium 100 MCG TABLET PO (05:41)
[2022-09-26] MEDS: Omeprazole 20 MG CAPSULE.DR PO (05:41)
[2022-09-26 06:15] LABS: INTERNATIONAL NORM RATIO 3.5 (0.9-1.1); Prothrombin Time 42.6 SEC (10.0-13.1)
[2022-09-26 07:19] VITALS: BP 138/63; PULSE 65; RESP 18; TEMP 36.5; O2SAT 98
[2022-09-26 07:34] LABS: Glucose, Whole Blood 110 mg/dL (60-115)
[2022-09-26] MEDS: Fluticasone/Vilanterol 200/25 BLST.W.DEV 1 PUFF INHALE (08:14)
[2022-09-26 08:16] VITALS: PULSE 75; RESP 18; O2SAT 94
[2022-09-26] MEDS: Docusate Sodium 100 MG CAPSULE PO (09:27)
[2022-09-26] MEDS: Metoprolol Tartrate 12.5 MG HALFTAB PO (09:28)
[2022-09-26] MEDS: Multivitamin TABLET 1 TAB PO (09:28)
[2022-09-26] MEDS: Sertraline HCL 50 MG TABLET PO (09:28)
[2022-09-26] MEDS: Tolterodine Tartrate LA 2 MG CAP.ER.24H 4 MG PO (09:28)
[2022-09-26] MEDS: Furosemide 40 MG TABLET PO (09:28)
[2022-09-26] MEDS: Cholecalciferol (Vitamin D3) 25 MCG TABLET 50 MCG PO (09:28)
[2022-09-26] MEDS: 0.9 % Sodium Chloride Flush 3 ML SYRINGE IVFLUSH (09:29)
[2022-09-26] MEDS: Insulin Glargine,Hum.rec.anlog 100 UNIT/ML 10 ML VIAL 25 UNIT SUBCUT (09:29)
[2022-09-26 11:39] LABS: Glucose, Whole Blood 251 mg/dL (60-115)
[2022-09-26 11:49] VITALS: PULSE 72; RESP 18; O2SAT 95
[2022-09-26] MEDS: Fluticasone Propionate Nasal 16 GM SPRAY 2 SPRAY NOSTRIL-B (12:04)
[2022-09-26] MEDS: Insulin Lispro 100 UNIT/ML 3 ML VIAL SUBCUT (12:04)
--- NOTE | 2022-09-26 12:20 | MHC.CM.PN ---
PT MEDICALLY CLEARED FOR D/C HOME W/STR VS NEW [facility] FOR SN/HOME PT, CM CONTACTED PT'S SON/HCP BRIAN AT 12:03PM [phone], BRIAN REPORTS HE WOULD LIKE TO TAKE PT HOME W/RESUMP OF [facility] AND NEW [facility] NO PREFERENCE, BRIAN REPORTS PT WILL HAVE MULTIPLE FAMILY MEMBERS WHO CAN ASSIST WELL BRIAN AND HIS FOR ASSISTANCE AND CAN TRANSPORT PT AT 4PM. HOSPITALIST AWARE
--- NOTE | 2022-09-26 12:25 | P.DS_ITS ---
DS: Providers Provider Date of Service: 09/26/22 Date of admission: 09/20/22 14:42 Date of discharge: 09/26/22 Primary care physician: Valeri Lerner DO DS: Diagnosis Discharge Diagnosis (1) Sepsis: Status: Acute (2) Pneumonia: Status: Acute (3) Diabetes type 2, controlled: Status: Acute (4) Paroxysmal A-fib: Status: Acute (5) Acute on chronic respiratory failure with hypoxemia: Status: Acute DS: Summary Hospital Course Hospital Course: from admission H+P by hospitalist Joanne Levi NP, 09/20/22: 87-year-old female presenting with complaints of nausea/vomiting/diarrhea that started yesterday with associated diffuse abdominal pain worse today.? She also reports a productive cough for a few weeks with some shortness of breath.? Reports associated chills.?Her son had been sick recently with cold like symptoms. She denies any measured fevers, dizziness, chest pain, back pain, dysuria, hematuria, abnormal vaginal discharge, lower extremity edema or calf tenderness, recent travel or sick contacts, possible bad food exposure, recent antibiotic usage or any other symptoms complaints or concerns at this time. She was noted to have? fever, tachycardia, tachypnea with a left lower lobe consolidation. ? COVID, RSV and flu negative. Abd CT negative for acute abnormality. In the ER she got ceftriaxone, Tylenol and albuterol.? She will be admitted for further management treatment of sepsis secondary to community- acquired pneumonia. 87 year old woman with DM2 who was admitted with sepsis secondary to CAP. She was treated with ceftriaxone and azithromycin and transitioned to levofloxacin as sepsis resolved. She was on 2L of O2 via nasal cannula on the day of discharge and this can be weaned to her baseline prn usage. She was discharged home with [facility] services and home PT and will need INR checks daily beginning 09/27/22 as her INR on 09/26/22 was 3.5. She was prescribed 5 more days of levofloxacin. STR was recommended but the patient's family declined, citing arrival of additional family members to help care for the patient. Time Spent with Patient Time attestation: Total time managing care of this patient today ___35_ minutes. Discharge coordination time: Greater than 30 minutes Quality: Safe Use of Opioids Does Pt have an Active Cancer Diagnosis on the Problem List?: No Quality: Stroke Does the patient have a stroke diagnosis?: No Physical Exam Vital Signs: Vital Signs: Last Vital Signs Temp 97.7 F 09/26/22 07:19 Pulse 72 09/26/22 11:49 Resp 18 09/26/22 11:49 BP 138/63 09/26/22 07:19 Pulse Ox 98 09/26/22 07:19 O2 Del Method 09/26/22 07:19 O2 Flow Rate 2 09/26/22 07:19 BMI result Body Mass Index 39.4 Gen: in no acute distress HEENT: sclera anicteric, moist mucus membranes Neck: supple Lungs: clear to auscultation bilaterally Heart: regular rate and rhythm, no murmurs Abd: soft, non-tender, non-distended Ext: no edema Skin: warm/well-perfused Neuro: alert and oriented x3, no focal findings Psych: appropriate affect Const: Other: Gen: in no acute distress HEENT: sclera anicteric, moist mucus membranes Neck: supple Lungs: clear to auscultation bilaterally Heart: regular rate and rhythm, no murmurs Abd: soft, non-tender, non-distended Ext: no edema Skin: warm/well-perfused Neuro: alert and oriented x3, no focal findings Psych: appropriate affect DS: Data Data Completed and Pending Completed studies during hospitalization [Text1]: Laboratory Results WBC 7.5 X10*3/uL (4.8-10.8) 09/24/22 05:59 RBC 3.60 X10*6/uL (4.20-5.50) L 09/24/22 05:59 Hgb 11.0 g/dl (12.0-16.0) L 09/24/22 05:59 Hct 34.5 % (37.0-47.0) L 09/24/22 05:59 MCV 95.8 fL (80.0-98.0) 09/24/22 05:59 MCH 30.6 pg (27.0-33.0) 09/24/22 05:59 MCHC 31.9 g/dl (31.0-35.0) 09/24/22 05:59 RDW 13.2 % (11.0-16.0) 09/24/22 05:59 Plt Count 124 X10*3/uL (160-400) L 09/24/22 05:59 MPV 11.3 fL (9.4-12.3) 09/24/22 05:59 Immature Gran % (Auto) 0.4 % (0.0-0.4) 09/24/22 05:59 Neut % (Auto) 66.1 % (45-73) 09/24/22 05:59 Lymph % (Auto) 20.8 % (20-40) 09/24/22 05:59 [place] % (Auto) 4.8 % (2-11) 09/24/22 05:59 Eos % (Auto) 7.5 % (0-4) H 09/24/22 05:59 Baso % (Auto) 0.4 % (0-2) 09/24/22 05:59 Lymph # (Auto) 1.6 X10*3/uL (1.2-4.9) 09/24/22 05:59 [place] # (Auto) 0.4 X10*3/uL (0.1-1.2) 09/24/22 05:59 Eos # (Auto) 0.6 X10*3/uL (0.0-0.4) H 09/24/22 05:59 Baso # (Auto) 0.0 X10*3/uL (0.0-0.2) 09/24/22 05:59 Abs Immat Gran (auto) 0.03 X10*3/uL (0.00-0.03) 09/24/22 05:59 Absolute Neuts (auto) 5.0 x10*3/uL (2.0-8.3) 09/24/22 05:59 Absolute Nucleated RBC 0.000 X10*3/uL (0.0-0.012) 09/24/22 05:59 Nucleated RBC % (auto) 0.0 /100WBC (0.0-0.2) 09/24/22 05:59 PT 42.6 SEC (10.0-13.1) H 09/26/22 05:02 INR 3.5 (0.9-1.1) H 09/26/22 05:02 Sodium 144 mmol/L (135-145) 09/24/22 05:59 Potassium 3.6 mmol/L (3.3-5.1) 09/24/22 05:59 Chloride 101 mmol/L (96-108) 09/24/22 05:59 Carbon Dioxide 33 mmol/L (22-29) H 09/24/22 05:59 Anion Gap 14 (12-20) 09/24/22 05:59 BUN 15 mg/dL (9-16) 09/24/22 05:59 Creatinine 0.84 mg/dL (0.5-1.4) 09/24/22 05:59 Estim Creat Clear Calc 51.4 09/24/22 05:59 Estimated GFR > 60 09/24/22 05:59 POC Glucose 251 mg/dL (60-115) H 09/26/22 11:22 Random Glucose 156 mg/dL (60-115) H 09/21/22 06:47 Fasting Glucose 114 mg/dL (60-99) H 09/24/22 05:59 Lactic Acid 1.1 mmol/L (0.5-2.0) 09/20/22 11:34 Calcium 9.1 mg/dL (8.4-10.2) 09/24/22 05:59 Magnesium 1.6 mg/dL (1.6-2.6) 09/20/22 11:34 Total Bilirubin 0.6 mg/dL (0.0-1.0) 09/24/22 05:59 AST 20 U/L (5-31) 09/24/22 05:59 ALT 17 U/L (0-31) 09/24/22 05:59 Alkaline Phosphatase 75 U/L (39-117) 09/24/22 05:59 B-Natriuretic Peptide 421 pg/mL (<100) H 09/20/22 11:34 Total Protein 6.2 g/dL (6.5-8.0) L 09/24/22 05:59 Albumin 3.1 g/dL (3.5-5.0) L 09/24/22 05:59 Lipase 55 U/L (8-78) 09/20/22 11:34 Procalcitonin 0.09 ng/mL 09/20/22 11:34 TSH 0.75 uIU/mL (0.32-4.0) 09/20/22 11:34 Urine Color Yellow 09/21/22 15:04 Urine Appearance Clear 09/21/22 15:04 Urine pH 6.0 (5.0-9.0) 09/21/22 15:04 Ur Specific [place] 1.020 (1.005-1.025) 09/21/22 15:04 Urine Protein 100 (2+) mg/dL (Neg-Trace) H 09/21/22 15:04 Urine Glucose (UA) Negative mg/dL (Negative) 09/21/22 15:04 Urine Ketones Negative mg/dL (Negative) 09/21/22 15:04 Urine Blood Negative (Negative) 09/21/22 15:04 Urine Nitrite Negative (Negative) 09/21/22 15:04 Ur Leukocyte Esterase Negative (Negative) 09/21/22 15:04 Urine RBC 0-2 /HPF (0-2) 09/21/22 15:04 Urine WBC 0-5 /HPF (0-5) 09/21/22 15:04 Ur Squamous Epith Cells 3-5 /HPF (0-2) 09/21/22 15:04 Urine Bacteria None Seen (None Seen) 09/21/22 15:04 Hyaline Casts 0-2 /LPF (0-2) 09/21/22 15:04 Influenza Type A (PCR) NEGATIVE (Negative) 09/20/22 11:34 Influenza Type B (PCR) NEGATIVE (Negative) 09/20/22 11:34 RSV RNA Qual (PCR) NEGATIVE (Negative) 09/20/22 11:34 SARS-CoV-2 RNA (RT-PCR) NEGATIVE (Negative) 09/20/22 11:34 Impressions Abdomen/Pelvis CT 09/20/22 13:10 IMPRESSION: * No acute findings within the abdomen or pelvis to explain the patient's symptomatology. * Cholelithiasis. * Scattered colonic diverticula without evidence of diverticulitis. Chest X-Ray 09/23/22 10:40 IMPRESSION: * Diffuse bronchial wall thickening suggestive of bronchitis. * Streaky opacities in the lower lungs bilaterally, more notable on the left, similar to prior. Atelectasis or infiltrate could have this appearance, particularly at the left lung base. Discharge Plan Discharge Anticipated Discharge Date/Time: 09/26/22 12:18 Patient Disposition: Home Health Service Discharge Diagnosis: sepsis + hypoxia due to pneumonia Referrals: Valeri Lerner DO [Primary Care Provider] - 1 Week Discharge Medications: New levofloxacin 750 mg Tablet 750 mg PO Q24H Qty: 5 0RF Continued insulin lispro [Humalog KwikPen Insulin] 100 unit/mL insulin pen 8 unit subcut TIDAC Protocol: Insulin Correction Scale Less than or equal to 110 ---- Give (units): 0 111 to 150 Give (units): 0 151 to 200 Give (units): 2 201 to 250 Give (units): 4 251 to 300 Give (units): 6 301 to 350 Give (units): 8 Greater than 350 Give (units): 10 Call MD if Blood Glucose > : 350 betamethasone valerate 0.1 % cream 1 appl topical BID PRN (Reason: Dry Skin) metformin 500 mg tablet extended release 24 hr 500 mg PO BIDWM Trulicity 1.5 mg/0.5 mL pen injector 1.5 mg subcut DURON (DME) pen needle, diabetic 32 gauge x 5/32 needle See Rx Instructions .ROUTE .MEDSUPPLY Qty: 50 Rx Instructions: As directed cholecalciferol (vitamin D3) 50 mcg (2,000 unit) tablet 50 mcg PO DAILY sertraline 50 mg tablet 50 mg PO DAILY fluticasone propionate 50 mcg/actuation spray,suspension 2 spray intranasal DAILY omeprazole 20 mg capsule,delayed release(DR/EC) 20 mg PO BID@0630,1630 fluticasone propion-salmeterol 500-50 mcg/dose blister with device 1 inh inhalation BID levothyroxine 100 mcg tablet 100 mcg PO DAILY@0630 furosemide 40 mg tablet 40 mg PO QAM (DME) lancets Misc See Rx Instructions .ROUTE .MEDSUPPLY Qty: 100 Rx Instructions: As directed (DME) blood sugar diagnostic Strip See Rx Instructions Not Applicable BID Qty: 10 Rx Instructions: As directed atorvastatin 20 mg tablet 20 mg PO BEDTIME docusate sodium 100 mg capsule 100 mg PO BID metoprolol tartrate 25 mg tablet 12.5 mg PO BID Tab-A-Judith Multivitamin w-iron 15 mg iron- 400 mcg tablet 1 tab PO QAM Lantus Solostar U-100 Insulin 100 unit/mL (3 mL) insulin pen 25 unit subcut DAILY Qty: 15 5RF clonazepam 0.5 mg tablet 0.5 mg PO BEDTIME (DME) Sidestream Misc See Rx Instructions .ROUTE DIRECTED Qty: 1 Rx Instructions: As directed solifenacin 5 mg tablet 5 mg PO QAM Held warfarin 3 mg tablet 4.5 mg PO MOTH Hold Instructions: Resume on 09/29/22. resume once INR <3 Protocol: Dose Management Condition: Monday (Week One) Dose/Route: 3 mg Instruction: 1 x 3 mg tablet Condition: Monday Dose/Route: 4.5 mg Instruction: 1.5 x 3 mg tablets Condition: Monday Dose/Route: 3 mg Instruction: 1 x 3 mg tablet Condition: Monday Dose/Route: 4.5 mg Instruction: 1.5 x 3 mg tablets Condition: Dose/Route: 3 mg Instruction: 1 x 3 mg tablet Condition: Monday Dose/Route: 4.5 mg Instruction: 1.5 x 3 mg tablets Condition: Monday Dose/Route: 3 mg Instruction: 1 x 3 mg tablet Condition: Monday (Week Two) Dose/Route: 3 mg Instruction: 1 x 3 mg tablet Condition: Monday Dose/Route: 4.5 mg Instruction: 1.5 x 3 mg tablets Condition: Monday Dose/Route: 3 mg Instruction: 1 x 3 mg tablet Condition: Monday Dose/Route: 4.5 mg Instruction: 1.5 x 3 mg tablets Condition: Dose/Route: 3 mg Instruction: 1 x 3 mg tablet Condition: Monday Dose/Route: 4.5 mg Instruction: 1.5 x 3 mg tablets Condition: Monday Dose/Route: 3 mg Instruction: 1 x 3 mg tablet Protocol Text: Adjustment Start Date: Monday09/12/22 INR Value: 2.0 INR Date: 09/12/22 Recheck Date: 09/26/22 Additional Instructions: cont prev dosing no greens for 2 days, eat a red today warfarin 3 mg tablet 3 mg PO SUTUWEFRSA Hold Instructions: Resume on 09/28/22. resume once INR <3 Protocol: Dose Management Condition: Monday (Week One) Dose/Route: 3 mg Instruction: 1 x 3 mg tablet Condition: Monday Dose/Route: 4.5 mg Instruction: 1.5 x 3 mg tablets Condition: Monday Dose/Route: 3 mg Instruction: 1 x 3 mg tablet Condition: Monday Dose/Route: 4.5 mg Instruction: 1.5 x 3 mg tablets Condition: Dose/Route: 3 mg Instruction: 1 x 3 mg tablet Condition: Monday Dose/Route: 4.5 mg Instruction: 1.5 x 3 mg tablets Condition: Monday Dose/Route: 3 mg Instruction: 1 x 3 mg tablet Condition: Monday ( Two) Dose/Route: 3 mg Instruction: 1 x 3 mg tablet Condition: Monday Dose/Route: 4.5 mg Instruction: 1.5 x 3 mg tablets Condition: Monday Dose/Route: 3 mg Instruction: 1 x 3 mg tablet Condition: Monday Dose/Route: 4.5 mg Instruction: 1.5 x 3 mg tablets Condition: Dose/Route: 3 mg Instruction: 1 x 3 mg tablet Condition: Monday Dose/Route: 4.5 mg Instruction: 1.5 x 3 mg tablets Condition: Monday Dose/Route: 3 mg Instruction: 1 x 3 mg tablet Protocol Text: Adjustment Start Date: Monday09/12/22 INR Value: 2.0 INR Date: 09/12/22 Recheck Date: 09/26/22 Additional Instructions: cont prev dosing no greens for 2 days, eat a red today Discharge Orders: Discharge Order (Routine); Ordered 09/26/22 Ordered By: Ann Galan Diet: Diabetic diet Activity on Discharge: As tolerated Stand Alone Forms: Patient Portal Discharge page Other Ambulatory Orders: Prothrombin Time INR (DAILY) Timeframe: [id number] Facility: [facility] - Location: Laboratory Ordered By: Ann Galan Prothrombin Time INR (DAILY) Timeframe: [id number] Facility: [facility] - Location: Laboratory Ordered By: Ann Galan Prothrombin Time INR (DAILY) Timeframe: [id number] Facility: [facility] - Location: Laboratory Ordered By: Ann Galan Prothrombin Time INR (DAILY) Timeframe: [id number] Facility: [facility] - Location: Laboratory Ordered By: Ann Galan Care Plan Goals: recovery from pneumonia Health Concerns: sepsis + hypoxia due to pneumonia Plan of Treatment: levofloxacin 750 mg daily for 5 more days held warfarin on 09/26/22 for INR 3.5; check INR daily beginning 09/27/22 and resume warfarin once INR 3 or less oxygen as needed to maintain SaO2 >90% Please follow up with your primary care doctor within 1 week. Return to the hospital if you experience recurrent or worsening symptoms. Assessment: See Discharge Summary.
[2022-09-26] MEDS: Acetaminophen 325 MG TABLET 650 MG PO (13:07)
[2022-09-26 15:17] VITALS: BP 128/58; PULSE 68; RESP 18; TEMP 36.3; O2SAT 99
== END 2022-09-26 17:18 | disposition home health service (06) | DRG 194 ==
LOC: HO.ED 13:41 → HO.EDOVER 14:47 → HO.IMC 09-21 06:57 → HO.S3 09-23 19:36
PROVIDERS: Hospitalist; Internal Medicine; Physician Assistant Medical; Admitting Provider Nurse Practitioner Acute Care; Emergency Provider Emergency Medicine; PCP Family Medicine; Visit Provider Family Medicine
DX: J18.9 Pneumonia, unspecified organism (principal); Z68.41 Body mass index [BMI] 40.0-44.9, adult; I25.10 Atherosclerotic heart disease of native coronary artery without angina pectoris; E78.5 Hyperlipidemia, unspecified; E03.9 Hypothyroidism, unspecified; I48.0 Paroxysmal atrial fibrillation; K21.9 Gastro-esophageal reflux disease without esophagitis; E11.42 Type 2 diabetes mellitus with diabetic polyneuropathy; E66.01 Morbid (severe) obesity due to excess calories; R79.1 Abnormal coagulation profile; Z20.822 Contact with and (suspected) exposure to COVID-19; Z99.81 Dependence on supplemental oxygen; Z88.5 Allergy status to narcotic agent; Z88.6 Allergy status to analgesic agent; Z79.4 Long term (current) use of insulin; Z79.51 Long term (current) use of inhaled steroids; Z79.84 Long term (current) use of oral hypoglycemic drugs; Z79.01 Long term (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; Z79.890 Hormone replacement therapy; Z79.899 Other long term (current) drug therapy
CPT/HCPCS: 0241U; 36415; 71045; 71046; 74177; 80048; 80053; 81001; 82947; 83605; 83690; 83735; 83880; 84145; 84443; 85025; 85610; 87040; 87077; 87186; 87205; 93005; 94640; 97110; 97116; 97162; 99285; J0456; J0696; Q9967

== ENCOUNTER → 2022-09-29 15:28 | Outpatient (BNVA) | payer OTHER, SELFPAY | PROVIDERS: PCP Family Medicine; Visit Provider Internal Medicine | DX: I48.0 Paroxysmal atrial fibrillation (principal); Z79.01 Long term (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; Z51.81 Encounter for therapeutic drug level monitoring | CPT/HCPCS: 99211 ==

== ENCOUNTER → 2022-10-03 11:30 | Outpatient (BNVA) | payer OTHER, SELFPAY | PROVIDERS: PCP Family Medicine; Visit Provider Internal Medicine | DX: Z79.01 Long term (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 (principal) ==

== ENCOUNTER 2022-10-03 15:14 | Outpatient (REF) | payer OTHER, SELFPAY ==
[2022-10-03 15:38] LABS: Prothrombin Time 92.9 SEC (10.0-13.1)
[2022-10-03 15:43] LABS: INTERNATIONAL NORM RATIO 7.4 (0.9-1.1)
== END 2022-10-03 15:15 | disposition home or self-care (01) ==
LOC: HO.HVNA 15:14
PROVIDERS: Visit Provider Family Medicine
DX: J96.21 Acute and chronic respiratory failure with hypoxia (principal); J18.9 Pneumonia, unspecified organism; A41.9 Sepsis, unspecified organism
CPT/HCPCS: 36415; 85610

== ENCOUNTER → 2022-10-04 11:22 | Outpatient (BNVA) | payer OTHER, SELFPAY | PROVIDERS: PCP Family Medicine; Visit Provider Internal Medicine | DX: Z79.01 Long term (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 (principal) ==

== ENCOUNTER 2022-10-05 10:29 | Outpatient (REF) | payer OTHER, SELFPAY ==
[2022-10-05 10:33] LABS: MANUAL DIFF FLAG NO
[2022-10-05 10:47] LABS: Basophils Absolute Auto 0.1 X10*3/uL (0.0-0.2); Basophils Percent Auto 0.6 % (0-2); Eosinophils Absolute Auto 0.3 X10*3/uL (0.0-0.4); Eosinophils Percent Auto 3.1 % (0-4); Hematocrit 39.4 % (37.0-47.0); Hemoglobin 12.3 g/dl (12.0-16.0); Imm Gran Abs Auto 0.04 X10*3/uL (0.00-0.03); Imm Gran Pct Auto 0.4 % (0.0-0.4); Lymphocytes Absolute Auto 3.4 X10*3/uL (1.2-4.9); Lymphocytes Percent Auto 31.5 % (20-40); Mean Corpuscular HGB Conc 31.2 g/dl (31.0-35.0); Mean Corpuscular Hemoglobin 30.6 pg (27.0-33.0); Mean Platelet Volume 10.9 fL (9.4-12.3); Monocytes Absolute Auto 0.6 X10*3/uL (0.1-1.2); Monocytes Percent Auto 5.8 % (2-11); Neutrophils Absolute Auto 6.3 x10*3/uL (2.0-8.3); Neutrophils Percent Auto 58.6 % (45-73); Platelet Count 217 X10*3/uL (160-400); Red Blood Count 4.02 X10*6/uL (4.20-5.50); Red Cell Distribution Width 13.4 % (11.0-16.0); White Blood Count 10.8 X10*3/uL (4.8-10.8)
[2022-10-05 10:59] LABS: Prothrombin Time 72.7 SEC (10.0-13.1)
[2022-10-05 11:10] LABS: INTERNATIONAL NORM RATIO 5.9 (0.9-1.1)
[2022-10-05 11:15] LABS: Anion Gap 15 (12-20); Blood Urea Nitrogen 20 mg/dL (9-16); Calcium 9.3 mg/dL (8.4-10.2); Carbon Dioxide 29 mmol/L (22-29); Chloride 105 mmol/L (96-108); Estimated Glomerular Filt Rate 55; Glucose Random 28 mg/dL (60-115); Potassium 3.4 mmol/L (3.3-5.1); Sodium 146 mmol/L (135-145)
== END 2022-10-05 10:30 | disposition home or self-care (01) ==
LOC: HO.HVNA 10:29
PROVIDERS: Visit Provider Family Medicine
DX: J96.21 Acute and chronic respiratory failure with hypoxia (principal); I48.0 Paroxysmal atrial fibrillation
CPT/HCPCS: 36415; 80048; 85025; 85610

== ENCOUNTER → 2022-10-06 10:11 | Outpatient (BNVA) | payer OTHER, SELFPAY | PROVIDERS: PCP Family Medicine; Visit Provider Internal Medicine | DX: I48.0 Paroxysmal atrial fibrillation (principal); Z79.01 Long term (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; Z51.81 Encounter for therapeutic drug level monitoring | CPT/HCPCS: 99211 ==

== ENCOUNTER → 2022-10-07 12:55 | Outpatient (BNVA) | payer OTHER, SELFPAY | PROVIDERS: PCP Family Medicine; Visit Provider Internal Medicine | DX: Z79.01 Long term (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 (principal) ==

== ENCOUNTER → 2022-10-10 10:07 | Outpatient (BNVA) | payer OTHER, SELFPAY | PROVIDERS: PCP Family Medicine; Visit Provider Internal Medicine | DX: Z79.01 Long term (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 (principal) ==

== ENCOUNTER → 2022-10-14 12:00 | Outpatient (BNVA) | payer OTHER, SELFPAY | PROVIDERS: PCP Family Medicine; Visit Provider Internal Medicine | DX: Z79.01 Long term (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 (principal) ==

== ENCOUNTER → 2022-10-20 12:25 | Outpatient (BNVA) | payer OTHER, SELFPAY | PROVIDERS: PCP Family Medicine; Visit Provider Internal Medicine | DX: Z79.01 Long term (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 (principal) ==

== ENCOUNTER → 2022-10-27 14:17 | Outpatient (BNVA) | payer OTHER, SELFPAY | PROVIDERS: PCP Family Medicine; Visit Provider Internal Medicine | DX: Z79.01 Long term (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 (principal) ==

== ENCOUNTER → 2022-11-03 10:05 | Outpatient (BNVA) | payer OTHER, SELFPAY | PROVIDERS: PCP Family Medicine; Visit Provider Internal Medicine ==

== ENCOUNTER → 2022-11-09 10:06 | Outpatient (BNVA) | payer OTHER, SELFPAY | PROVIDERS: PCP Family Medicine; Visit Provider Internal Medicine | DX: I48.0 Paroxysmal atrial fibrillation (principal); Z51.81 Encounter for therapeutic drug level monitoring; Z79.01 Long term (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 | CPT/HCPCS: 85610; 99211 ==

== ENCOUNTER → 2022-11-30 10:55 | Outpatient (BNVA) | payer OTHER, SELFPAY | PROVIDERS: PCP Family Medicine; Visit Provider Internal Medicine | DX: I48.0 Paroxysmal atrial fibrillation (principal); Z79.01 Long term (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; Z51.81 Encounter for therapeutic drug level monitoring | CPT/HCPCS: 85610; 99211 ==

== ENCOUNTER → 2022-12-15 10:19 | Outpatient (BNVA) | payer OTHER, SELFPAY | PROVIDERS: PCP Family Medicine; Visit Provider Internal Medicine | DX: I48.0 Paroxysmal atrial fibrillation (principal); Z79.01 Long term (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; Z51.81 Encounter for therapeutic drug level monitoring | CPT/HCPCS: 85610; 99211 ==

== ENCOUNTER → 2022-12-30 11:18 | Outpatient (BNVA) | payer OTHER, SELFPAY | PROVIDERS: PCP Family Medicine; Visit Provider Internal Medicine | DX: I48.0 Paroxysmal atrial fibrillation (principal); Z79.01 Long term (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; Z51.81 Encounter for therapeutic drug level monitoring | CPT/HCPCS: 85610; 99211 ==

== ENCOUNTER 2023-01-04 09:56 | Outpatient (REF) | payer OTHER, SELFPAY ==
--- NOTE | ~2023-01-04 | US_ITS ---
EXAMINATION: US EXTRACRANIAL CAROTID DUPLEX, BILATERAL CLINICAL INFORMATION: Carotid artery occlusion/stenosis. COMPARISON: Carotid ultrasound 12/29/2021. TECHNIQUE: Real-time ultrasound and Doppler techniques (integrating B-mode 2-D vascular images, Doppler spectral analysis and color-flow Doppler imaging) were utilized to interrogate the extracranial carotid arteries, the vertebral arteries and proximal subclavian arteries bilaterally. The degree of stenosis is determined by criteria similar to NASCET. FINDINGS: Right Side: 1. There is mild atherosclerotic plaque seen in the bifurcation/proximal ICA region. 2. The common carotid artery PSV proximally is 61 cm/s and distally 54 cm/s. 3. The proximal internal carotid artery velocities are 54 cm/s systolic and 13 cm/s diastolic. 4. The proximal external carotid artery PSV is 63 cm/s. 5. The vertebral artery shows antegrade flow. 6. The subclavian artery waveforms are normal. Left Side: 1. There is severe atherosclerotic plaque seen in the bifurcation/proximal ICA region. 2. The common carotid artery PSV proximally is 47 cm/s and distally 39 cm/s. 3. The proximal internal carotid artery is occluded. 4. The proximal external carotid artery PSV is 72 cm/s. 5. The vertebral artery shows antegrade flow. 6. The subclavian artery waveforms are normal. US/US carotid duplex BI IMPRESSION: 1. RIGHT: Minimal, non-hemodynamically significant stenosis of the proximal right internal carotid artery corresponding to a 0-49% stenosis by velocity criteria. 2. LEFT: The left internal carotid artery is occluded. 3. There is no change in the category severity of disease when compared to the previous study dated 12/29/2021.
== END 2023-01-04 09:57 | disposition home or self-care (01) ==
LOC: HO.US 09:56
PROVIDERS: PCP Family Medicine; Visit Provider Surgery Vascular Surgery
DX: I65.23 Occlusion and stenosis of bilateral carotid arteries (principal)
CPT/HCPCS: 93880

== ENCOUNTER → 2023-01-18 13:38 | Outpatient (BNVA) | payer OTHER, SELFPAY | PROVIDERS: PCP Family Medicine; Referring Provider Family Medicine; Visit Provider Internal Medicine | DX: I48.0 Paroxysmal atrial fibrillation (principal); I45.9 Conduction disorder, unspecified; I65.23 Occlusion and stenosis of bilateral carotid arteries; Z51.81 Encounter for therapeutic drug level monitoring; Z79.01 Long term (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 | CPT/HCPCS: 85610; 93005; 99211; 99212 ==

== ENCOUNTER → 2023-02-02 09:44 | Outpatient (BNVA) | payer OTHER, SELFPAY | PROVIDERS: PCP Family Medicine; Visit Provider Surgery Vascular Surgery | DX: I65.23 Occlusion and stenosis of bilateral carotid arteries (principal); I10 Essential (primary) hypertension | CPT/HCPCS: 99212 ==

== ENCOUNTER 2023-02-08 11:00 | Outpatient (AMB) | payer OTHER, SELFPAY ==
--- NOTE | 2023-02-08 11:21 | MHC.OFFVISCO ---
Intake Intake Visit Reasons: Anticoagulation Allergies acetaminophen [Tylenol] Allergy (Intermediate, Verified 02/08/23 11:17) rash aspirin [Aspirin] Allergy (Mild, Verified 02/08/23 11:17) Gastrointestinal Upset oxycodone [From PERCOCET] Allergy (Unknown, Verified 02/08/23 11:17) PALPITATIONS From Robitussin Cough & Cold Allergy (Intermediate, Uncoded 02/08/23 11:17) hives Robitussin Cold Cough+ Chest Allergy (Intermediate, Uncoded 02/08/23 11:17) hives SEAFOOD Allergy (Intermediate, Uncoded 02/08/23 11:17) hives shellfish Allergy (Intermediate, Uncoded 02/08/23 11:17) hives Medication List - Last Reconciled 02/08/23 by Danielle Chávez RN atorvastatin 20 mg PO BEDTIME blood sugar diagnostic As directed cholecalciferol (vitamin D3) 50 mcg PO DAILY dulaglutide (Trulicity) 1.5 mg subcut DURON fluticasone propion-salmeterol 500-50 mcg/dose 1 inh inhalation BID fluticasone propionate 50 mcg/actuation 2 sprays intranasal DAILY furosemide 40 mg PO QAM insulin glargine (Lantus Solostar U-100 Insulin) 25 units (0.25 mL) subcut DAILY insulin lispro (Humalog KwikPen (U-100) Insulin) 8 units See Protocol subcut TIDAC lancets As directed levothyroxine 100 mcg PO DAILY@0630 metformin ER 500 mg PO BIDWM metoprolol tartrate 12.5 mg PO BID multivit-iron sulf-folic acid 15 mg iron- 400 mcg (Tab-A-Judith Multivitamin w-iron) 1 tab PO QAM nebulizers (Sidestream misc) As directed omeprazole 20 mg PO BID@0630,1630 pen needle, diabetic As directed sertraline 50 mg PO DAILY solifenacin 5 mg PO DAILY warfarin 3 mg See Protocol PO DAILY Nursing Note INR: 2.2- in therapeutic range Medications and supplements reviewed No changes in health, diet, medications, or supplements, Denies any signs and symptoms of bleeding or bruising or clotting. Bleeding, bruising, clotting discussed Nutritional guidance given Dose: 3mg x 2, 4.5mg x 5 F/U INR: 3 weeks Patient verbalizes understanding of instructions given pt amb with walker,, grandson present for acs visit Anti-Coag Initial Assessment Social Hx Patient Tobacco Use Status: Never used Tobacco alcohol intake: never Coding Level of Care Code Est Patient Level 1 Diagnoses Current use of anticoagulant therapy Z79.01 Results AMB INR Fingerstick AMB INR Fingerstick 2.2 Last Edit by Danielle Chávez RN on 02/08/23 11:23 Assessment & Plan Assessment & Plan (1) Current use of anticoagulant therapy: Code(s): Z79.01 - MCFP (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 Category: Medical
[2023-02-08 11:23] LABS: Prothrombin Time Whole Bld POC 26.7 sec (11.1-13.5); ~PT, ~INR - Anti Coag Clinic 2.2 (0.9-1.1)
== END 2023-02-08 11:34 | disposition home or self-care (01) ==
LOC: HO.ACS 11:01
PROVIDERS: PCP Family Medicine; Visit Provider Internal Medicine
DX: Z79.01 Long term (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 (principal)

== ENCOUNTER → 2023-02-08 11:00 | Outpatient (BNVA) | payer OTHER, SELFPAY | PROVIDERS: PCP Family Medicine; Visit Provider Internal Medicine | DX: I48.0 Paroxysmal atrial fibrillation (principal); Z79.01 Long term (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; Z51.81 Encounter for therapeutic drug level monitoring | CPT/HCPCS: 85610; 99211 ==

== ENCOUNTER 2023-03-01 11:28 | Outpatient (AMB) | payer OTHER, SELFPAY ==
--- NOTE | 2023-03-01 11:32 | MHC.OFFVISCO ---
Intake Intake Visit Reasons: Anticoagulation Allergies acetaminophen [Tylenol] Allergy (Intermediate, Verified 03/01/23 11:29) rash aspirin [Aspirin] Allergy (Mild, Verified 03/01/23 11:29) Gastrointestinal Upset oxycodone [From PERCOCET] Allergy (Unknown, Verified 03/01/23 11:29) PALPITATIONS From Robitussin Cough & Cold Allergy (Intermediate, Uncoded 03/01/23 11:29) hives Robitussin Cold Cough+ Chest Allergy (Intermediate, Uncoded 03/01/23 11:29) hives SEAFOOD Allergy (Intermediate, Uncoded 03/01/23 11:29) hives shellfish Allergy (Intermediate, Uncoded 03/01/23 11:29) hives Medication List - Last Reconciled 03/01/23 by Danielle Chávez RN atorvastatin 20 mg PO BEDTIME blood sugar diagnostic As directed cholecalciferol (vitamin D3) 50 mcg PO DAILY dulaglutide (Trulicity) 1.5 mg subcut DURON fluticasone propion-salmeterol 500-50 mcg/dose 1 inh inhalation BID fluticasone propionate 50 mcg/actuation 2 sprays intranasal DAILY furosemide 40 mg PO QAM insulin glargine (Lantus Solostar U-100 Insulin) 25 units (0.25 mL) subcut DAILY insulin lispro (Humalog KwikPen (U-100) Insulin) 8 units See Protocol subcut TIDAC lancets As directed levothyroxine 100 mcg PO DAILY@0630 metformin ER 500 mg PO BIDWM metoprolol tartrate 12.5 mg PO BID multivit-iron sulf-folic acid 15 mg iron- 400 mcg (Tab-A-Judith Multivitamin w-iron) 1 tab PO QAM nebulizers (Sidestream misc) As directed omeprazole 20 mg PO BID@0630,1630 pen needle, diabetic As directed sertraline 50 mg PO DAILY solifenacin 5 mg PO DAILY warfarin 3 mg See Protocol PO DAILY Nursing Note INR: 2.2- in therapeutic range Medications and supplements reviewed No changes in health, diet, medications, or supplements, Denies any signs and symptoms of bleeding or bruising or clotting. Bleeding, bruising, clotting discussed Nutritional guidance given Dose: 3mg x 2, 4.5mg x 5 F/U INR: 3 weeks Patient grandson verbalizes understanding of instructions given Anti-Coag Initial Assessment Social Hx Patient Tobacco Use Status: Never used Tobacco alcohol intake: never Coding Level of Care Code Est Patient Level 1 Diagnoses Current use of anticoagulant therapy Z79.01 Results AMB INR Fingerstick AMB INR Fingerstick 2.2 Last Edit by Danielle Chávez RN on 03/01/23 11:33 Assessment & Plan Assessment & Plan (1) Current use of anticoagulant therapy: Code(s): Z79.01 - halfway (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 Category: Medical
[2023-03-01 11:33] LABS: Prothrombin Time Whole Bld POC 26.8 sec (11.1-13.5); ~PT, ~INR - Anti Coag Clinic 2.2 (0.9-1.1)
== END 2023-03-01 11:38 | disposition home or self-care (01) ==
LOC: HO.ACS 11:28
PROVIDERS: PCP Family Medicine; Visit Provider Internal Medicine
DX: Z79.01 Long term (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 (principal)

== ENCOUNTER → 2023-03-01 11:28 | Outpatient (BNVA) | payer OTHER, SELFPAY | PROVIDERS: PCP Family Medicine; Visit Provider Internal Medicine | DX: I48.0 Paroxysmal atrial fibrillation (principal); Z79.01 Long term (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; Z51.81 Encounter for therapeutic drug level monitoring | CPT/HCPCS: 85610; 99211 ==

== ENCOUNTER 2023-03-22 11:20 | Outpatient (AMB) | payer OTHER, SELFPAY ==
[2023-03-22 11:25] LABS: Prothrombin Time Whole Bld POC 38.5 sec (11.1-13.5); ~PT, ~INR - Anti Coag Clinic 3.2 (0.9-1.1)
--- NOTE | 2023-03-22 11:25 | MHC.OFFVISCO ---
Intake Intake Visit Reasons: Anticoagulation Allergies acetaminophen [Tylenol] Allergy (Intermediate, Verified 03/22/23 11:20) rash aspirin [Aspirin] Allergy (Mild, Verified 03/22/23 11:20) Gastrointestinal Upset oxycodone [From PERCOCET] Allergy (Unknown, Verified 03/22/23 11:20) PALPITATIONS From Robitussin Cough & Cold Allergy (Intermediate, Uncoded 03/22/23 11:20) hives Robitussin Cold Cough+ Chest Allergy (Intermediate, Uncoded 03/22/23 11:20) hives SEAFOOD Allergy (Intermediate, Uncoded 03/22/23 11:20) hives shellfish Allergy (Intermediate, Uncoded 03/22/23 11:20) hives Medication List - Last Reconciled 03/22/23 by Danielle Chávez RN atorvastatin 20 mg PO BEDTIME blood sugar diagnostic As directed cholecalciferol (vitamin D3) 50 mcg PO DAILY dulaglutide (Trulicity) 1.5 mg subcut DURON fluticasone propion-salmeterol 500-50 mcg/dose 1 inh inhalation BID fluticasone propionate 50 mcg/actuation 2 sprays intranasal DAILY furosemide 40 mg PO QAM insulin glargine (Lantus Solostar U-100 Insulin) 25 units (0.25 mL) subcut DAILY insulin lispro (Humalog KwikPen (U-100) Insulin) 8 units See Protocol subcut TIDAC lancets As directed levothyroxine 100 mcg PO DAILY@0630 metformin ER 500 mg PO BIDWM metoprolol tartrate 12.5 mg PO BID multivit-iron sulf-folic acid 15 mg iron- 400 mcg (Tab-A-Judith Multivitamin w-iron) 1 tab PO QAM nebulizers (Sidestream misc) As directed omeprazole 20 mg PO BID@0630,1630 pen needle, diabetic As directed sertraline 50 mg PO DAILY solifenacin 5 mg PO DAILY warfarin 3 mg See Protocol PO DAILY Nursing Note INR 3.2-?? out of therapeutic range Medications and supplements reviewed Patient status: pt amb with walker Medications or supplements: no changes Diet: same Denies any signs and symptoms of bleeding or clotting or unusual bruising Bleeding, bruising, clotting discussed Nutritional guidance given: eat dark greens today and tomm, no reds for 2 days Dose: 3mg x 2, 4.5mg x 5 F/U INR Date : 2 weeks? Patient and grandson verbalizing understanding of instructions given. pt grandson states can lower inr with dietary management- food list provided Anti-Coag Initial Assessment Social Hx Patient Tobacco Use Status: Never used Tobacco alcohol intake: never Coding Level of Care Code Est Patient Level 1 Diagnoses Current use of anticoagulant therapy Z79.01 Assessment & Plan Assessment & Plan (1) Current use of anticoagulant therapy: Code(s): Z79.01 - central supply technician (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 Category: Medical
== END 2023-03-22 11:32 | disposition home or self-care (01) ==
LOC: HO.ACS 11:20
PROVIDERS: PCP Family Medicine; Visit Provider Internal Medicine
DX: Z79.01 Long term (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 (principal)

== ENCOUNTER → 2023-03-22 11:20 | Outpatient (BNVA) | payer OTHER, SELFPAY | PROVIDERS: PCP Family Medicine; Visit Provider Internal Medicine | DX: I48.0 Paroxysmal atrial fibrillation (principal); Z79.01 Long term (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; Z51.81 Encounter for therapeutic drug level monitoring | CPT/HCPCS: 85610; 99211 ==

== ENCOUNTER 2023-04-01 17:05 | Emergency (ER) | payer OTHER, SELFPAY ==
--- NOTE | ~2023-04-01 | XR_ITS ---
EXAMINATION: XR SHOULDER, RIGHT CLINICAL INFORMATION: Pain following fall COMPARISON: 06/26/2022 TECHNIQUE: AP external rotation, Grashey, scapular Y, and axillary views of the right shoulder. FINDINGS: There is chronic deformity related to remote fracture with healing and there are no acute fractures identified. There is cephalad migration of the humeral head suggestive for rotator cuff tear. Soft tissues unremarkable. XR/XR shoulder RT min 2V IMPRESSION: No interval change in appearance of chronic healed fracture of the right proximal humerus and shoulder rotator cuff tear
--- NOTE | ~2023-04-01 | XR_ITS ---
EXAMINATION: XR WRIST, RIGHT CLINICAL INFORMATION: Pain status post fall COMPARISON: None available. TECHNIQUE: PA, lateral, and oblique views of the right wrist. FINDINGS: Bones are diffusely demineralized. There is narrowing of radiocarpal joint and there is chondrocalcinosis due to CPPD arthropathy. There is no evidence of fractures. No healing deformities is identified. Soft tissues are unremarkable. Scaphoid bone is normal. XR/XR wrist RT min 3V IMPRESSION: Changes of osteoarthritis and CPPD arthropathy.
--- NOTE | ~2023-04-01 | XR_ITS ---
EXAMINATION: XR ELBOW, RIGHT CLINICAL INFORMATION: Pain COMPARISON: None available. TECHNIQUE: AP, lateral, and oblique views of the right elbow. FINDINGS: The bones and soft tissues are normal. No fracture or joint effusion. Alignment is anatomic. Joint spaces are maintained. XR/XR elbow RT min 3V IMPRESSION: No fracture seen
--- NOTE | ~2023-04-01 | CT_ITS ---
EXAMINATION: CT head/brain wo IV con, CT cervical spine wo IV con INDICATION INFORMATION: Additional Information: 834 mgycm. fall : COMPARISON: 06/26/2022 TECHNIQUE: Separate noncontrast CT examinations of the head and cervical spine were performed. Coronal and sagittal reformats were obtained at the acquisition workstation. This CT examination was performed using dose optimization techniques as appropriate, variously including the following: * Automated exposure control * Adjustment of mA and/or kV according to patient size (this includes techniques or standardized protocols for targeted exams where dose is matched to indication/reason for exam; i.e. extremities or head) * Use of iterative reconstruction technique DLP: 1313 mGy-cm FINDINGS: HEAD: There is no evidence of acute intracranial hemorrhage or territorial infarction. Britton to white matter differentiation is well preserved. No abnormal mass effect or midline shift is seen. No extra-axial fluid collections are identified. No hydrocephalus. No significant volume loss. There is no abnormal attenuation within the brain parenchyma. The cerebellar tonsils are well positioned. There is significant volume loss with ventricles, sulci and cisterns dilated. There are patchy periventricular white matter changes as a sequela of microangiopathy. No acute osseous or soft tissue abnormality. Visualized portions of the orbits are unremarkable. The mastoid air cells and visualized portions of the paranasal sinuses are well aerated. CERVICAL SPINE: No evidence of acute fracture or traumatic subluxation of the cervical spine. There is straightening of the normal cervical curvature with otherwise maintained sagittal alignment and mildly dextroscoliosis. Vertebral body heights and intervertebral disc spaces are maintained. The atlantoaxial and atlantooccipital articulations are intact. No prevertebral soft tissue swelling. There is no cervical lymphadenopathy. The visualized thyroid gland is unremarkable. The visualized lung apices are clear. CT/CT cervical spine wo IV con IMPRESSION: 1. No acute intracranial pathology. Global atrophy 2. No acute osseous abnormality within the cervical spine. Mild dextroscoliosis
[2023-04-01 17:13] VITALS: BP 130/78; BP 152/57; PULSE 69; PULSE 70; RESP 16; TEMP 36.8; O2SAT 94; O2SAT 95; BMI 38.4
--- NOTE | 2023-04-01 17:17 | ECG_ITS ---
Test Reason : FALL Blood Pressure : / mmHG Vent. Rate : 065 BPM Atrial Rate : 065 BPM P-R Int : 330 ms QRS Dur : 092 ms QT Int : 416 ms P-R-T Axes : 061 048 048 degrees QTc Int : 432 ms Sinus rhythm with 1st degree A-V block Abnormal ECG When compared with ECG of 20-SEP-2022 10:39, Premature ventricular complexes are no longer Present Nonspecific T wave abnormality no longer evident in Lateral leads QT has lengthened Referred By: Katelin Mcknight Electronically Signed By:LOC KUMAR
[2023-04-01 17:55] LABS: MANUAL DIFF FLAG NO
--- NOTE | 2023-04-01 17:57 | ED_ITS ---
HPI - Fall General Chief Complaint: Fall Stated Complaint: Fall, R shoulder pain Time Seen by Provider: 04/01/23 17:15 Source: patient, family and EMS Mode of arrival: EMS Limitations: no limitations History of Present Illness HPI Narrative: 87 y/o Swedish speaking female with history of afib not on anticoagulation, DM2 w/ polyneuropathy, hx DVT s/p IVC filter, CVA, CAD, HTN, HLD, carotid stenosis, hypothyroidism, hx recurrent falls who presents to the ER from home via EMS for evaluation of right upper extremity pain after a fall in the kitchen about an hour ago. She states she was at the microwave heating up her dinner when she turned too quickly, lost her balance and slid down the cabinet on the right side of her body. She denies hitting her head or losing consciousness. She denies being on blood thinners. Family was able to get her up into a chair in the kitchen. She usually walks with a walker and has history of multiple falls in the past. She is complaining of right shoulder, right elbow and right wrist pain. She denies headache or neck pain. No chest pain or abdominal pain. She denies dizziness or lightheadedness prior to the fall. MD complaint: fall Onset (ago): hour(s) Fall from: standing Fall witnessed: no Place fall occurred: home Loss of consciousness: none Prolonged down time: no Symptoms prior to fall: none Location of injury - extremities: right: shoulder and elbow Severity: mild Severity scale (1-10): 3 Quality: aching Associated symptoms (after fall): denies Related Data Home Medications Medication Instructions Recorded Confirmed atorvastatin 20 mg tablet 20 mg PO BEDTIME 05/21/20 01/18/23 blood sugar diagnostic #10 ea 05/21/20 01/18/23 cholecalciferol (vitamin D3) 50 50 mcg PO DAILY 05/21/20 01/18/23 mcg (2,000 unit) tablet fluticasone 500 mcg-salmeterol 50 1 inh inhalation BID 05/21/20 01/18/23 mcg/dose blistr powdr for inhalation fluticasone propionate 50 2 spray intranasal DAILY 05/21/20 01/18/23 mcg/actuation nasal spray,suspension furosemide 40 mg tablet 40 mg PO QAM 05/21/20 01/18/23 lancets #100 ea 05/21/20 01/18/23 levothyroxine 100 mcg tablet 100 mcg PO DAILY@0630 05/21/20 01/18/23 omeprazole 20 mg capsule,delayed 20 mg PO BID@0630,1630 05/21/20 01/18/23 release pen needle, diabetic 32 gauge x #50 ea 05/21/20 01/18/2332 sertraline 50 mg tablet 50 mg PO DAILY 05/21/20 01/18/23 metoprolol tartrate 25 mg tablet 12.5 mg PO BID 12/17/20 01/18/23 nebulizers (Sidestream misc) #1 ea 05/14/21 01/18/23 multivitamin-iron sulfate 15 1 tab PO QAM 12/15/21 01/18/23 mg-folic acid 400 mcg tablet (Tab-A-Judith Multivitamin w-iron) insulin lispro 100 unit/mL 8 unit subcut TIDAC 06/26/22 01/18/23 subcutaneous pen (Humalog KwikPen (U-100) Insulin) dulaglutide 1.5 mg/0.5 mL 1.5 mg subcut DURON 09/20/22 01/18/23 subcutaneous pen injector (Trulicity) metformin 500 mg tablet,extended 500 mg PO BIDWM 09/20/22 01/18/23 release 24 hr solifenacin 5 mg tablet 5 mg PO DAILY 01/18/23 01/18/23 warfarin 3 mg tablet 3 mg PO DAILY 01/18/23 03/22/23 Previous Rx's Medication Instructions Recorded insulin glargine 100 unit/mL (3 25 unit (0.25 mL) subcut DAILY #15 12/15/21 mL) subcutaneous pen (Lantus mL Solostar U-100 Insulin) Allergies Allergy/AdvReac Type Severity Reaction Status Date / Time acetaminophen [Tylenol] Allergy Intermediate rash Verified 03/22/23 11:20 aspirin [Aspirin] Allergy Mild Gastrointestinal Verified 03/22/23 11:20 Upset oxycodone [From PERCOCET] Allergy Unknown PALPITATION Verified 03/22/23 11:20 S From Robitussin Cough & Cold Allergy Intermediate hives Uncoded 03/22/23 11:20 Robitussin Cold Cough+ Chest Allergy Intermediate hives Uncoded 03/22/23 11:20 SEAFOOD Allergy Intermediate hives Uncoded 03/22/23 11:20 shellfish Allergy Intermediate hives Uncoded 03/22/23 11:20 Review of Systems Review of Systems: Yes all other systems are reviewed and are negative [facility] Past Medical History Medical History Anxiety disorder Coronary artery disease Deep vein thrombosis Diabetes type 2, controlled Essential hypertension Gastroenteritis Hearing loss History of cerebrovascular accident Hyperlipemia Hypothyroidism Hypoxia Multiple falls Obesity due to excess calories Osteoarthritis Osteopenia Paroxysmal A-fib Pneumonia Senile cataract of left eye Sepsis Type 2 diabetes mellitus with diabetic polyneuropathy Urinary incontinence Surgical History History of bilateral tubal ligation Family History Family History Father Heart disease CVD (cardiovascular disease) Mother Diabetes Social History Social History Household Members: Family Housing: Apartment Do you presently have visiting nurse or other home services: Yes Alcohol intake: never Patient Tobacco Use Status: Never used Tobacco Smoked in Last 30 Days: No Use of substances other than those prescribed or required for medical reasons: No Advance Directives: Yes Advance Directives on File: Yes Advance Directives Date on File: 07/01/22 service: No Current occupational status: unemployed Sexual orientation: Straight/Heterosexual Gender identity: Female Physical Exam Vital Signs: Vital Signs: Last Vital Signs Temp 98.2 F 04/01/23 17:13 Pulse 70 04/01/23 20:30 Resp 14 04/01/23 20:30 BP 136/72 04/01/23 20:30 Pulse Ox 95 04/01/23 20:30 O2 Del Method Room Air 04/01/23 20:30 BMI result Body Mass Index 38.4 Appearance: Alert. Oriented X3. No acute distress. Head: normocephalic, atraumatic. Eyes: Pupils equal, round and reactive to light. ENT: Pharynx normal. No tonsillar swelling or exudate. Neck: Normal inspection. Neck supple. No midline tenderness. CVS: Normal heart rate and rhythm. Pulses normal. Respiratory: No respiratory distress. Breath sounds normal. Abdomen: Obese, soft and nontender. +BS x4 Skin: Skin warm and dry. Normal skin color. Normal skin turgor. No rashes. Extremities: 1+ lower extremity edema with superficial varicose veins. No LE joint swelling or tenderness. pelvis is stable, nontender hips. right shoulder is tender anteriorly and laterally, able to abduct to 100 degrees. normal ROM of the right elbow, no joint tenderness of the medial or lateral condyle. right wrist is tender dorsally without deformity. equal shoeblack strength bilaterally. no metacarpal tenderness. Neuro/psych: Oriented X 3. No motor deficit. No sensory deficit. CN II-XII intact. Normal speech and cognition. Medical Decision Making Medical Decision Making [facility] Narrative: 87 y/o Swedish speaking female with history of afib not on anticoagulation, DM2 w/ polyneuropathy, hx DVT s/p IVC filter, CVA, CAD, HTN, HLD, carotid stenosis, hypothyroidism, hx recurrent falls who presents to the ER from home via EMS for evaluation of right upper extremity pain after a fall in the kitchen about an hour ago. No preceding symptoms. Vital signs stable on arrival. Exam with some right shoulder tenderness, doubt acute fracture. Lab workup today unremarkable. No anemia. No leukocytosis. Her glucose is 153. X-rays of the right shoulder, elbow, wrist were performed which not show any acute fractures. CT scan of her head and neck were negative for any acute traumatic injuries. Patient is feeling well. She would like to go home. Patient and family declining need for short-term rehab. She lives at home with family. At this time comfortable discharge home with her family. Differential Diagnosis Differential Diagnoses: The differential diagnosis associated with the presentation includes Mechanical fall, humerus fracture, clavicular fracture, elbow fracture, wrist fracture, contusion, concussion, Anemia Admission/Observation Consideration of admission/observation: Escalation of care including admissi on/observation considered elderly female with multiple comorbidities with fall, considered observation Lab Data [facility] Lab Attestation statement: I reviewed the patient's lab results. no anemia, no leukocytosis, no metabolic derrangement 04/01/23 17:48 04/01/23 17:48 Labs: Lab Results 04/01/23 04/01/23 Range/Units 17:48 17:48 WBC 10.5 (4.8-10.8) X10*3/uL RBC 4.35 (4.20-5.50) X10*6/uL Hgb 13.4 (12.0-16.0) g/dl Hct 41.5 (37.0-47.0) % MCV 95.4 (80.0-98.0) fL MCH 30.8 (27.0-33.0) pg MCHC 32.3 (31.0-35.0) g/dl RDW 12.9 (11.0-16.0) % Plt Count 159 L D (160-400) X10*3/uL MPV 11.3 (9.4-12.3) fL Immature Gran % (Auto) 0.5 H (0.0-0.4) % Neut % (Auto) 74.3 H (45-73) % Lymph % (Auto) 16.7 L (20-40) % [place] % (Auto) 5.2 (2-11) % Eos % (Auto) 2.9 (0-4) % Baso % (Auto) 0.4 (0-2) % Lymph # (Auto) 1.8 (1.2-4.9) X10*3/uL [place] # (Auto) 0.6 (0.1-1.2) X10*3/uL Eos # (Auto) 0.3 (0.0-0.4) X10*3/uL Baso # (Auto) 0.0 (0.0-0.2) X10*3/uL Abs Immat Gran (auto) 0.05 H (0.00-0.03) X10*3/uL Absolute Neuts (auto) 7.8 (2.0-8.3) x10*3/uL Absolute Nucleated RBC 0.000 (0.0-0.012) X10*3/uL Nucleated RBC % (auto) 0.0 (0.0-0.2) /100WBC Sodium 142 (135-145) mmol/L Potassium 4.3 D (3.3-5.1) mmol/L Chloride 102 (96-108) mmol/L Carbon Dioxide 31 H (22-29) mmol/L Anion Gap 13 (12-20) BUN 19 H (9-16) mg/dL Creatinine 0.93 (0.5-1.4) mg/dL Estim Creat Clear Calc 51.2 Estimated GFR 57 Random Glucose 153 H (60-115) mg/dL Calcium 10.6 H D (8.4-10.2) mg/dL Magnesium 1.6 (1.6-2.6) mg/dL Total Bilirubin 0.4 (0.0-1.0) mg/dL Direct Bilirubin 0.1 (0.0-0.5) mg/dL AST 23 (5-31) U/L ALT 17 (0-31) U/L Alkaline Phosphatase 114 (39-117) U/L Total Protein 8.0 (6.5-8.0) g/dL Albumin 4.0 (3.5-5.0) g/dL Independent Interpretation I performed an independent interpretation of an: EKG, Plain X-Ray and CT Scan Interpretation: EKG with heart rate of 65 beats per minute, sinus rhythm, first-degree AV block with MO interval of 330 MS, normal QTC, no ST segment elevations or depressions. X-rays of the wrist, elbow, shoulder were reviewed, no evidence of acute fractures. CT scan of the head without acute bleed or edema. Agree with radiologist read Radiology Impression Discussion of test interpretation with radiology: I have reviewed the radiologist's reading. Radiologist Impression: ?XR/XR wrist RT min 3V IMPRESSION: Changes of osteoarthritis and CPPD arthropathy. XR/XR shoulder RT min 2V IMPRESSION: No interval change in appearance of chronic healed fracture of the right proximal humerus and shoulder rotator cuff tear ?XR/XR elbow RT min 3V IMPRESSION: No fracture seen ?CT/CT head/brain wo IV con IMPRESSION: 1.? No acute intracranial pathology. Global atrophy 2.? No acute osseous abnormality within the cervical spine. Mild dextroscoliosis ?CT/CT cervical spine wo IV con IMPRESSION: 1.? No acute intracranial pathology. Global atrophy 2.? No acute osseous abnormality within the cervical spine. Mild dextroscoliosis ? ? Independent Historian Clinical information obtained from an independent historian. History obtained from or confirmed by: EMS and Other (adult daughters) External Record Review External record reviewed: Outpatient record, Prior outpatient labs and Prior outpatient radiology Prescription Management I considered prescription management with: Pain Medication Chronic Conditions Patient?s care impacted by: Diabetes Social Determinants Patient?s care significantly limited by Social Determinants of Health including: Other Social Determinant of Health Critical Care Time Critical Care Time Critical Care Time: No Discharge Plan Discharge Clinical Impression: Fall, Contusion of right shoulder Patient Disposition: Home, Self-Care Instructions: Fall Prevention for Older Adults (ED) Additional Instructions: Images and lab workup today did not show any evidence of acute injuries. Take Motrin and Tylenol as needed for pain Make sure using a walker or cane when you walk around. Follow-up with your doctor. If you develop new or worsening symptoms call 911 or come back to the ER for further evaluation. Prescriptions: No Action insulin lispro [Humalog KwikPen Insulin] 100 unit/mL insulin pen 8 unit subcut TIDAC Protocol: Insulin Correction Scale Less than or equal to 110 ---- Give (units): 0 111 to 150 Give (units): 0 151 to 200 Give (units): 2 201 to 250 Give (units): 4 251 to 300 Give (units): 6 301 to 350 Give (units): 8 Greater than 350 Give (units): 10 Call MD if Blood Glucose > : 350 metformin 500 mg tablet extended release 24 hr 500 mg PO BIDWM Trulicity 1.5 mg/0.5 mL pen injector 1.5 mg subcut DURON (DME) pen needle, diabetic 32 gauge x 5/32 needle See Rx Instructions .ROUTE .MEDSUPPLY Qty: 50 Rx Instructions: As directed cholecalciferol (vitamin D3) 50 mcg (2,000 unit) tablet 50 mcg PO DAILY sertraline 50 mg tablet 50 mg PO DAILY fluticasone propionate 50 mcg/actuation spray,suspension 2 spray intranasal DAILY omeprazole 20 mg capsule,delayed release(DR/EC) 20 mg PO BID@0630,1630 fluticasone propion-salmeterol 500-50 mcg/dose blister with device 1 inh inhalation BID levothyroxine 100 mcg tablet 100 mcg PO DAILY@0630 furosemide 40 mg tablet 40 mg PO QAM (DME) lancets Misc See Rx Instructions .ROUTE .MEDSUPPLY Qty: 100 Rx Instructions: As directed ([facility]) blood sugar diagnostic Strip See Rx Instructions Not Applicable BID Qty: 10 Rx Instructions: As directed atorvastatin 20 mg tablet 20 mg PO BEDTIME metoprolol tartrate 25 mg tablet 12.5 mg PO BID Tab-A-Judith Multivitamin w-iron 15 mg iron- 400 mcg tablet 1 tab PO QAM Lantus Solostar U-100 Insulin 100 unit/mL (3 mL) insulin pen 25 unit subcut DAILY Qty: 15 5RF (DME) Sidestream Misc See Rx Instructions .ROUTE DIRECTED Qty: 1 Rx Instructions: As directed solifenacin 5 mg tablet 5 mg PO DAILY warfarin 3 mg tablet 3 mg PO DAILY Protocol: Dose Management Condition: Monday (Week One) Dose/Route: 4.5 mg Instruction: 1.5 x 3 mg tablets Condition: Monday Dose/Route: 3 mg Instruction: 1 x 3 mg tablet Condition: Monday Dose/Route: 4.5 mg Instruction: 1.5 x 3 mg tablets Condition: Monday Dose/Route: 4.5 mg Instruction: 1.5 x 3 mg tablets Condition: Dose/Route: 4.5 mg Instruction: 1.5 x 3 mg tablets Condition: Monday Dose/Route: 3 mg Instruction: 1 x 3 mg tablet Condition: Monday Dose/Route: 4.5 mg Instruction: 1.5 x 3 mg tablets Condition: Monday (Week Two) Dose/Route: 4.5 mg Instruction: 1.5 x 3 mg tablets Condition: Monday Dose/Route: 3 mg Instruction: 1 x 3 mg tablet Condition: Monday Dose/Route: 4.5 mg Instruction: 1.5 x 3 mg tablets Condition: Monday Dose/Route: 4.5 mg Instruction: 1.5 x 3 mg tablets Condition: Dose/Route: 4.5 mg Instruction: 1.5 x 3 mg tablets Condition: Monday Dose/Route: 3 mg Instruction: 1 x 3 mg tablet Condition: Monday Dose/Route: 4.5 mg Instruction: 1.5 x 3 mg tablets Protocol Text: Adjustment Start Date: Monday03/22/23 INR Value: 3.2 INR Date: 03/22/23 Recheck Date: 04/05/23 Additional Instructions: cont reg dosing eat greens to lower inr no reds for 2-3 days Rx Instructions: 3 mg orally, 4.5MG X 3 DAYS/ 3MG X 4 DAYS; Stand Alone Forms: Work/School Release Interventions: ED Discharge Assessment Last Done: 04/01/23 21:49 Discharge Date/Time: 04/01/23 21:49 Print Language: Swedish
[2023-04-01 18:02] LABS: Basophils Percent Auto 0.4 % (0-2); Eosinophils Absolute Auto 0.3 X10*3/uL (0.0-0.4); Eosinophils Percent Auto 2.9 % (0-4); Hematocrit 41.5 % (37.0-47.0); Hemoglobin 13.4 g/dl (12.0-16.0); Imm Gran Abs Auto 0.05 X10*3/uL (0.00-0.03); Imm Gran Pct Auto 0.5 % (0.0-0.4); Lymphocytes Absolute Auto 1.8 X10*3/uL (1.2-4.9); Lymphocytes Percent Auto 16.7 % (20-40); Mean Corpuscular HGB Conc 32.3 g/dl (31.0-35.0); Mean Corpuscular Hemoglobin 30.8 pg (27.0-33.0); Mean Corpuscular Volume 95.4 fL (80.0-98.0); Mean Platelet Volume 11.3 fL (9.4-12.3); Monocytes Absolute Auto 0.6 X10*3/uL (0.1-1.2); Monocytes Percent Auto 5.2 % (2-11); Neutrophils Absolute Auto 7.8 x10*3/uL (2.0-8.3); Neutrophils Percent Auto 74.3 % (45-73); Platelet Count 159 X10*3/uL (160-400); Red Blood Count 4.35 X10*6/uL (4.20-5.50); Red Cell Distribution Width 12.9 % (11.0-16.0); White Blood Count 10.5 X10*3/uL (4.8-10.8)
[2023-04-01 18:15] LABS: Alanine Aminotransferase 17 U/L (0-31); Alkaline Phosphatase 114 U/L (39-117); Anion Gap 13 (12-20); Aspartate Amino Transferase 23 U/L (5-31); Bilirubin Direct 0.1 mg/dL (0.0-0.5); Bilirubin Total 0.4 mg/dL (0.0-1.0); Blood Urea Nitrogen 19 mg/dL (9-16); Calcium 10.6 mg/dL (8.4-10.2); Carbon Dioxide 31 mmol/L (22-29); Chloride 102 mmol/L (96-108); Creatinine Clr Calc Pharmacy 51.2; Estimated Glomerular Filt Rate 57; Glucose Random 153 mg/dL (60-115); Magnesium 1.6 mg/dL (1.6-2.6); Potassium 4.3 mmol/L (3.3-5.1); Sodium 142 mmol/L (135-145)
[2023-04-01 18:53] VITALS: BP 160/76; PULSE 66; RESP 15; O2SAT 95
[2023-04-01 20:30] VITALS: BP 136/72; PULSE 70; RESP 14; O2SAT 95
== END 2023-04-01 21:49 | disposition home or self-care (01) ==
PROVIDERS: Physician Assistant; Emergency Provider Student in an Organized Health Care Education/Training Program
DX: S40.011A Contusion of right shoulder, initial encounter (principal); W01.0XXA Fall on same level from slipping, tripping and stumbling without subsequent striking against object, initial encounter; M25.521 Pain in right elbow; R29.6 Repeated falls; M25.531 Pain in right wrist; R60.0 Localized edema; I83.893 Varicose veins of bilateral lower extremities with other complications; E11.42 Type 2 diabetes mellitus with diabetic polyneuropathy; I10 Essential (primary) hypertension; E78.5 Hyperlipidemia, unspecified; I48.0 Paroxysmal atrial fibrillation; Z91.81 History of falling; Z86.718 Personal history of other venous thrombosis and embolism; Z86.73 Personal history of transient ischemic attack (TIA), and cerebral infarction without residual deficits; Z79.899 Other long term (current) drug therapy; Z79.4 Long term (current) use of insulin; Z79.01 Long term (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; Y93.89 Activity, other specified; Y92.030 Kitchen in apartment as the place of occurrence of the external cause; Y99.9 Unspecified external cause status
CPT/HCPCS: 36415; 70450; 72125; 73030; 73080; 73110; 80048; 80076; 83735; 85025; 93005; 99284

== ENCOUNTER 2023-04-19 13:00 | Outpatient (AMB) | payer OTHER, SELFPAY ==
--- NOTE | 2023-04-19 13:10 | MHC.OFFVISCO ---
Intake Intake Visit Reasons: Anticoagulation Allergies acetaminophen [Tylenol] Allergy (Intermediate, Verified 04/19/23 13:02) rash aspirin [Aspirin] Allergy (Mild, Verified 04/19/23 13:02) Gastrointestinal Upset oxycodone [From PERCOCET] Allergy (Unknown, Verified 04/19/23 13:02) PALPITATIONS From Robitussin Cough & Cold Allergy (Intermediate, Uncoded 04/19/23 13:02) hives Robitussin Cold Cough+ Chest Allergy (Intermediate, Uncoded 04/19/23 13:02) hives SEAFOOD Allergy (Intermediate, Uncoded 04/19/23 13:02) hives shellfish Allergy (Intermediate, Uncoded 04/19/23 13:02) hives Medication List - Last Reconciled 04/19/23 by Alison Gonzalez RN alcohol swabs (Easy Touch Alcohol Prep Pads) pad topical QID atorvastatin 20 mg PO BEDTIME blood sugar diagnostic As directed cholecalciferol (vitamin D3) 50 mcg PO DAILY clonazepam 0.5 mg PO BEDTIME docusate sodium 100 mg PO BID dulaglutide (Trulicity) 1.5 mg subcut DURON fluticasone propion-salmeterol 500-50 mcg/dose 1 inh inhalation BID fluticasone propionate 50 mcg/actuation 2 sprays intranasal DAILY furosemide 40 mg PO QAM insulin glargine (Lantus Solostar U-100 Insulin) 25 units (0.25 mL) subcut DAILY insulin lispro (Humalog KwikPen (U-100) Insulin) 8 units See Protocol subcut TIDAC lancets As directed levothyroxine 100 mcg PO DAILY@0630 metformin ER 500 mg PO BIDWM metoprolol tartrate 12.5 mg PO BID multivit-iron sulf-folic acid 15 mg iron- 400 mcg (Tab-A-Judith Multivitamin w-iron) 1 tab PO QAM nebulizers (Sidestream misc) As directed omeprazole 20 mg PO BID@0630,1630 pen needle, diabetic As directed sertraline 50 mg PO DAILY solifenacin 5 mg PO DAILY warfarin 3 mg See Protocol PO DAILY Nursing Note pt accompanied with grandson - he stated she had covid 1 1/2 weeks ago - still has a little bit of a cough, she had mild fever and chills INR: 2.4 in therapeutic range Medications and supplements reviewed No changes in health, diet, medications, or supplements, Denies any signs and symptoms of bleeding or bruising or clotting. Bleeding, bruising, clotting discussed Nutritional guidance given- eat a mix of fruits and vegetabless Dose: keep same 3mg x 2 days/ 4.5mg x 5 days F/U INR: 3 weeks 'Patient verbalizes understanding of instructions given Anti-Coag Initial Assessment Social Hx Patient Tobacco Use Status: Never used Tobacco alcohol intake: never Coding Level of Care Code Est Patient Level 1 Diagnoses Current use of anticoagulant therapy Z79.01 Results AMB INR Fingerstick AMB INR Fingerstick 2.4 Last Edit by Alison Gonzalez RN on 04/19/23 13:11 no interfacing manual entry Assessment & Plan Assessment & Plan (1) Current use of anticoagulant therapy: Code(s): Z79.01 - roasterman (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 Category: Medical
[2023-04-19 13:18] LABS: Prothrombin Time Whole Bld POC 28.6 sec (11.1-13.5); ~PT, ~INR - Anti Coag Clinic 2.4 (0.9-1.1)
== END 2023-04-19 15:27 | disposition home or self-care (01) ==
LOC: HO.ACS 13:00
PROVIDERS: Visit Provider Internal Medicine
DX: Z79.01 Long term (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 (principal)

== ENCOUNTER → 2023-04-19 13:00 | Outpatient (BNVA) | payer OTHER, SELFPAY | PROVIDERS: Visit Provider Internal Medicine | DX: I48.0 Paroxysmal atrial fibrillation (principal); Z79.01 Long term (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; Z51.81 Encounter for therapeutic drug level monitoring | CPT/HCPCS: 85610; 99211 ==

== ENCOUNTER 2023-05-24 11:29 | Outpatient (AMB) | payer OTHER, SELFPAY ==
[2023-05-24 11:36] LABS: Prothrombin Time Whole Bld POC 19.9 sec (11.1-13.5); ~PT, ~INR - Anti Coag Clinic 1.7 (0.9-1.1)
--- NOTE | 2023-05-24 11:42 | MHC.OFFVISCO ---
Intake Intake Visit Reasons: Anticoagulation Allergies acetaminophen [Tylenol] Allergy (Intermediate, Verified 05/24/23 11:31) rash aspirin [Aspirin] Allergy (Mild, Verified 05/24/23 11:31) Gastrointestinal Upset oxycodone [From PERCOCET] Allergy (Unknown, Verified 05/24/23 11:31) PALPITATIONS From Robitussin Cough & Cold Allergy (Intermediate, Uncoded 04/19/23 13:02) hives Robitussin Cold Cough+ Chest Allergy (Intermediate, Uncoded 04/19/23 13:02) hives SEAFOOD Allergy (Intermediate, Uncoded 04/19/23 13:02) hives shellfish Allergy (Intermediate, Uncoded 04/19/23 13:02) hives Medication List - Last Reconciled 05/24/23 by Selene Collins RN alcohol swabs (Easy Touch Alcohol Prep Pads) pad topical QID atorvastatin 20 mg PO BEDTIME blood sugar diagnostic As directed cholecalciferol (vitamin D3) 50 mcg PO DAILY clonazepam 0.5 mg PO BEDTIME docusate sodium 100 mg PO BID dulaglutide (Trulicity) 1.5 mg subcut DURON fluticasone propion-salmeterol 500-50 mcg/dose 1 inh inhalation BID fluticasone propionate 50 mcg/actuation 2 sprays intranasal DAILY furosemide 40 mg PO QAM insulin glargine (Lantus Solostar U-100 Insulin) 25 units (0.25 mL) subcut DAILY insulin lispro (Humalog KwikPen (U-100) Insulin) 8 units See Protocol subcut TIDAC lancets As directed levothyroxine 100 mcg PO DAILY@0630 metformin ER 500 mg PO BIDWM metoprolol tartrate 12.5 mg PO BID multivit-iron sulf-folic acid 15 mg iron- 400 mcg (Tab-A-Judith Multivitamin w-iron) 1 tab PO QAM nebulizers (Sidestream misc) As directed omeprazole 20 mg PO BID@0630,1630 pen needle, diabetic As directed sertraline 50 mg PO DAILY solifenacin 5 mg PO DAILY warfarin 3 mg See Protocol PO DAILY Nursing Note NO MISSED DOSES,CP,SOB,DIET/MED CHANGES,FALLS OR SX OF BLEEDING. 6MGM TODAY BOOSTER THEN RESUME USUAL DOSE AND FOLLOW-UP IN 2 WEEKS. GOOD UNDERSTANDING OF DOSING INSTR.BY CAREGIVER. 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
== END 2023-05-24 11:44 | disposition home or self-care (01) ==
LOC: HO.ACS 11:29
PROVIDERS: Visit Provider Internal Medicine
DX: Z79.01 Long term (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 (principal)

== ENCOUNTER → 2023-05-24 11:29 | Outpatient (BNVA) | payer OTHER, SELFPAY | PROVIDERS: Visit Provider Internal Medicine | DX: I48.0 Paroxysmal atrial fibrillation (principal); Z79.01 Long term (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; Z51.81 Encounter for therapeutic drug level monitoring | CPT/HCPCS: 85610; 99211 ==

== ENCOUNTER 2023-06-09 11:24 | Outpatient (AMB) | payer OTHER, SELFPAY ==
[2023-06-09 11:37] LABS: Prothrombin Time Whole Bld POC 23.9 sec (11.1-13.5)
--- NOTE | 2023-06-09 11:43 | MHC.OFFVISCO ---
Intake Intake Visit Reasons: Anticoagulation Allergies acetaminophen [Tylenol] Allergy (Intermediate, Verified 06/09/23 11:30) rash aspirin [Aspirin] Allergy (Mild, Verified 06/09/23 11:30) Gastrointestinal Upset oxycodone [From PERCOCET] Allergy (Unknown, Verified 06/09/23 11:30) PALPITATIONS From Robitussin Cough & Cold Allergy (Intermediate, Uncoded 06/09/23 11:30) hives Robitussin Cold Cough+ Chest Allergy (Intermediate, Uncoded 06/09/23 11:30) hives SEAFOOD Allergy (Intermediate, Uncoded 06/09/23 11:30) hives shellfish Allergy (Intermediate, Uncoded 06/09/23 11:30) hives Medication List - Last Reconciled 06/09/23 by Alison Gonzalez RN alcohol swabs (Easy Touch Alcohol Prep Pads) pad topical QID atorvastatin 20 mg PO BEDTIME blood sugar diagnostic As directed cholecalciferol (vitamin D3) 50 mcg PO DAILY clonazepam 0.5 mg PO BEDTIME docusate sodium 100 mg PO BID dulaglutide (Trulicity) 1.5 mg subcut DURON fluticasone propion-salmeterol 500-50 mcg/dose 1 inh inhalation BID fluticasone propionate 50 mcg/actuation 2 sprays intranasal DAILY furosemide 40 mg PO QAM insulin glargine (Lantus Solostar U-100 Insulin) 25 units (0.25 mL) subcut DAILY insulin lispro (Humalog KwikPen (U-100) Insulin) 8 units See Protocol subcut TIDAC lancets As directed levothyroxine 100 mcg PO DAILY@0630 metformin ER 500 mg PO BIDWM metoprolol tartrate 12.5 mg PO BID multivit-iron sulf-folic acid 15 mg iron- 400 mcg (Tab-A-Judith Multivitamin w-iron) 1 tab PO QAM nebulizers (Sidestream misc) As directed omeprazole 20 mg PO BID@0630,1630 pen needle, diabetic As directed sertraline 50 mg PO DAILY warfarin 3 mg See Protocol PO DAILY Nursing Note pt came to [facility] with grandson walking with walker gait steady. she is well kept and A+O x 3 INR: 2.0 in therapeutic range Medications and supplements reviewed No changes in health, diet, medications, or supplements, Denies any signs and symptoms of bleeding or bruising or clotting. Bleeding, bruising, clotting discussed Nutritional guidance given Dose: keep same dose 3mg x 2 days 4.5mg x 5 days F/U INR: 3 weeks Patient verbalizes understanding of instructions given Anti-Coag Initial Assessment Social Hx Patient Tobacco Use Status: Never used Tobacco alcohol intake: never Coding Level of Care Code Est Patient Level 1 Diagnoses Current use of anticoagulant therapy Z79.01 Assessment & Plan Assessment & Plan (1) Current use of anticoagulant therapy: Code(s): Z79.01 - alf (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 Category: Medical
== END 2023-06-09 11:45 | disposition home or self-care (01) ==
LOC: HO.ACS 11:24
PROVIDERS: PCP Family Medicine; Visit Provider Internal Medicine
DX: Z79.01 Long term (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 (principal)

== ENCOUNTER → 2023-06-09 11:24 | Outpatient (BNVA) | payer OTHER, SELFPAY | PROVIDERS: PCP Family Medicine; Visit Provider Internal Medicine | DX: I48.0 Paroxysmal atrial fibrillation (principal); Z79.01 Long term (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; Z51.81 Encounter for therapeutic drug level monitoring | CPT/HCPCS: 85610; 99211 ==

== ENCOUNTER 2023-07-14 11:02 | Outpatient (AMB) | payer OTHER, SELFPAY ==
[2023-07-14 11:09] LABS: Prothrombin Time Whole Bld POC 26.1 sec (11.1-13.5); ~PT, ~INR - Anti Coag Clinic 2.2 (0.9-1.1)
--- NOTE | 2023-07-14 11:11 | MHC.OFFVISCO ---
Intake Intake Visit Reasons: Anticoagulation Allergies acetaminophen [Tylenol] Allergy (Intermediate, Verified 07/14/23 11:03) rash aspirin [Aspirin] Allergy (Mild, Verified 07/14/23 11:03) Gastrointestinal Upset oxycodone [From PERCOCET] Allergy (Unknown, Verified 07/14/23 11:03) PALPITATIONS From Robitussin Cough & Cold Allergy (Intermediate, Uncoded 07/14/23 11:03) hives Robitussin Cold Cough+ Chest Allergy (Intermediate, Uncoded 07/14/23 11:03) hives SEAFOOD Allergy (Intermediate, Uncoded 07/14/23 11:03) hives shellfish Allergy (Intermediate, Uncoded 07/14/23 11:03) hives Medication List - Last Reconciled 07/14/23 by Sunita Kearney RN alcohol swabs (Easy Touch Alcohol Prep Pads) pad topical QID atorvastatin 20 mg PO BEDTIME blood sugar diagnostic As directed cholecalciferol (vitamin D3) 50 mcg PO DAILY clonazepam 0.5 mg PO BEDTIME docusate sodium 100 mg PO BID dulaglutide (Trulicity) 1.5 mg subcut DURON fluticasone propion-salmeterol 500-50 mcg/dose 1 inh inhalation BID fluticasone propionate 50 mcg/actuation 2 sprays intranasal DAILY furosemide 40 mg PO QAM insulin glargine (Lantus Solostar U-100 Insulin) 25 units (0.25 mL) subcut DAILY insulin lispro (Humalog KwikPen (U-100) Insulin) 8 units See Protocol subcut TIDAC lancets As directed levothyroxine 100 mcg PO DAILY@0630 metformin ER 500 mg PO BIDWM metoprolol tartrate 12.5 mg PO BID multivit-iron sulf-folic acid 15 mg iron- 400 mcg (Tab-A-Judith Multivitamin w-iron) 1 tab PO QAM nebulizers (Sidestream misc) As directed omeprazole 20 mg PO BID@0630,1630 pen needle, diabetic As directed sertraline 50 mg PO DAILY warfarin 3 mg See Protocol PO DAILY Nursing Note Amb to [facility] using walker, accomp by skylar feeling well pt last visit here 06/09, [facility] there was some miscommunication with an Uncle regarding who was bringing her Medications and supplements reviewed No changes in health, diet, medications, or supplements Denies any unusual signs and symptoms of bruising, bleeding Denies any new Chest pain, SOB, or clotting INR: 2.2 in therapeutic range Nutritional guidance given: balance greens and reds in diet Dose: continue usual dosing; 3mg x 2 days and 4.5mg x 5 days F/U INR: 3 weeks, req Monday Patient verbalizes understanding of instructions given with accurate read back/ teach back of dosing Anti-Coag Initial Assessment Social Hx Patient Tobacco Use Status: Never used Tobacco alcohol intake: never Questionnaires HAS-BLED Does the patient had uncontrolled Hypertension?: No Does the patient have renal disease?: Yes Does the patient have liver disease?: No Does the patient have a history of stroke?: Yes Has the patient had major bleeding or predisposition to bleeding?: No Does the patient have labile INRs?: No Is the patient over 65 years of age?: Yes Is the patient on medications that gives them a predisposition to bleeding?: Yes Does the patient use alcohol?: No HAS-BLED Score: 4 CHADSVASC Age: 75 or over Gender: Female Does the patient have a history of CHF?: No Does the patient have a history of Hypertension?: Yes Does the patient have a history of Stroke/TIA/Thromboembolism?: Yes Does the patient have a history of Vascular Disease (prior RI, PAD or aortic plaque)?: No Does the patient have a history of Diabetes?: Yes CHADS VACS Score: 7 Aneudy Prediction Score Rsk VTE Active Cancer: No Previous VTE, excluding superficial vein thrombosis: Yes Reduced mobility: Yes Already known Thrombophilic Condition: Yes With-in last month Trauma and/or Surgery: No Elderly 70 year or older: Yes Heart and/or Respiratory Failure: No Acute Myocardial infarction and/or Ischemic Stroke: Yes Acute Infection and/or Rheumatologic Disorder: No Obesity (BMI 30 or greater): Yes Ongoing Hormonal Treatment: No Score: 12 Aneudy Score less than 4; Low Risk of VTE Aneudy Score 4 or greater; High Risk of VTE Coding Level of Care Code Est Patient Level 1 Diagnoses Current use of anticoagulant therapy Z79.01 Time Spent (min) 15 Assessment & Plan Assessment & Plan (1) Current use of anticoagulant therapy: Code(s): Z79.01 - long-term (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 Category: Medical
== END 2023-07-14 11:19 | disposition home or self-care (01) ==
LOC: HO.ACS 11:02
PROVIDERS: PCP Family Medicine; Visit Provider Internal Medicine
DX: Z79.01 Long term (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 (principal)

== ENCOUNTER → 2023-07-14 11:02 | Outpatient (BNVA) | payer OTHER, SELFPAY | PROVIDERS: PCP Family Medicine; Visit Provider Internal Medicine | DX: I48.0 Paroxysmal atrial fibrillation (principal); Z79.01 Long term (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; Z51.81 Encounter for therapeutic drug level monitoring | CPT/HCPCS: 85610; 99211 ==

== ENCOUNTER 2023-07-22 14:39 | Emergency (ER) | payer OTHER, SELFPAY ==
[2023-07-22] VITALS (7 sets, daily range): BP systolic 120–176; BP diastolic 57–98; PULSE 77–89; RESP 14–18; TEMP 36.3–37.2; O2SAT 93–97; BMI 41.0
--- NOTE | ~2023-07-22 | CT_ITS ---
CT HEAD WITHOUT IV CONTRAST CT CERVICAL SPINE WITHOUT IV CONTRAST INDICATION: Fall with head strike. Pain. COMPARISON: Head and cervical spine CT 04/01/2023. TECHNIQUE: Multidetector CT acquisitions of the head and cervical spine were obtained without IV contrast. Multiplanar reformats were acquired and utilized for image interpretation. This CT examination was performed using dose optimization techniques as appropriate, variously including the following: *Automated exposure control *Adjustment of mA and/or kV according to patient size (this includes techniques or standardized protocols for targeted exams where dose is matched to indication/reason for exam; i.e. extremities or head) *Use of iterative reconstruction technique FINDINGS: HEAD: There is a stable appearing expansile cystic lesion within the left cavernous sinus when compared to multiple prior studies. There is global cerebral volume loss and there is mild chronic microangiopathy. There is no intracranial hemorrhage, hydrocephalus, extra-axial surface collection, midline shift, or other herniation pattern. Britton to white matter differentiation is diffusely maintained without evidence of an evolved acute territorial infarct. The basilar cisterns are preserved. Large posterior scalp hematoma. No acute osseous abnormality. The paranasal sinuses and the mastoid air cells are well aerated. CERVICAL SPINE: Straightening of the cervical lordosis. Vertebral body heights are maintained. Moderate disc volume loss at C5-C6. There is diffuse osteopenia. There are no acute fractures and there are no acute subluxations. Hypertrophic degenerative changes involving the atlantodental interval. The craniocervical junction is unremarkable. There is no prevertebral soft tissue swelling. No significant soft tissue abnormality within the neck. Retropharyngeal course of the carotid arteries bilaterally. The visualized lung apices are clear. CT/CT cervical spine wo IV con IMPRESSION: - No acute intracranial abnormality. Large posterior scalp hematoma. There is a stable appearing expansile cystic lesion within the left cavernous sinus when compared to multiple prior studies. There is global cerebral volume loss and there is mild chronic microangiopathy. - No acute osseous abnormality within the cervical spine.
--- NOTE | ~2023-07-22 | CT_ITS ---
EXAMINATION: CT CHEST, ABDOMEN AND PELVIS without contrast CLINICAL INFORMATION: Reason for Exam Fall. Rib fracture COMPARISON: CT chest 05/30/2019 TECHNIQUE: Multidetector volumetric CT imaging of the chest abdomen and pelvis obtained Axial MIP volume rendering provided. Sagittal and coronal reformatted images were obtained. This CT examination was performed using dose optimization techniques as appropriate, variously including the following: *Automated exposure control *Adjustment of mA and/or kV according to patient size (this includes techniques or standardized protocols for targeted exams where dose is matched to indication/reason for exam; i.e. extremities or head) *Use of iterative reconstruction technique CONTRAST: Noncontrasted CT. Reformatted coronal and sagittal imaging was performed. DLP: 1357 mGy-cm FINDINGS: LEAF BINNER, LINES TUBES: Registered Nurse Renal reviewed, no lines. LUNGS: Interstitial: Diminished lung volume, prominence of the pulmonary vasculature, mild congestion Mild interstitial opacification lingula base and upper lobes nonspecific, could be small airway disease versus mild interstitial pneumonitis versus mild interstitial edema. No dense lobar consolidation. Lung nodules: - No evidence of neoplasm. No lung mass or suspicious nodules, there are scattered tiny micronodules, measuring 3 mm or less, nonspecific, commonly benign, do not meet the criteria for short-term follow-up. (Berrios images). AIRWAYS: Trachea and bronchi are normal. PLEURA: No pleural effusion or pneumothorax. MEDIASTINUM AND SHO: The visualized thyroid gland is unremarkable. No mediastinal, hilar or axillary lymphadenopathy. There is no mediastinal mass. THORACIC AORTA: Thoracic aorta is normal in size. CHEST WALL, LOWER NECK, SURROUNDING SOFT TISSUES: Intraosseous radiolucency in the vertebral body of T3 likely interosseous hemangioma. HEART AND PERICARDIUM: Heart is enlarged. There are heavy coronary calcifications. HEPATOBILIARY: No focal hepatic lesions. No biliary ductal dilatation. GALLBLADDER: There are few gallstones. SPLEEN: Spleen is normal in size. PANCREAS: Pancreas is atrophic fatty replaced. GI TRACT: There is diverticulosis without evidence of acute diverticulitis. Short segment of the transverse colon has somewhat circumferential wall thickening although could be peristalsis, cannot rule out mucosal lesion, this would require correlation with follow-up colonoscopy or barium enema. Berrios image. Normal appendix. ADRENALS: No adrenal nodules. KIDNEYS/URETERS: Simple cyst right kidney 1.9 cm Bosniak class I, this is likely benign, no follow-up required. Similar cyst upper pole left kidney 1.1 cm. No kidney stones or hydronephrosis. PELVIC ORGANS/BLADDER: Heterogeneous uterus with uterine calcifications possibly fibroids. PERITONEUM: No free air or fluid. LYMPH NODES: no retroperitoneal or mesenteric lymphadenopathy. VASCULAR:There are aortic calcifications, no aneurysm. There is IVC filter in place the tip of which is at the level of L3 BONES, ABDOMINAL WALL AND SOFT TISSUES: Age-appropriate changes of the spine and skeletal system, no destructive osteolytic or osteosclerotic bone lesion found CT/CT abdomen pelvis wo IV con IMPRESSION: * Short segment of the transverse colon has somewhat circumferential wall thickening although could be peristalsis, CANNOT RULE OUT NEOPLASM. This would require correlation with FOLLOW-UP COLONOSCOPY OR BARIUM ENEMA. * No CT evidence of rib fractures. * Cardiomegaly, heavy coronary calcification, vascular congestion, mild interstitial opacification nonspecific could be mild interstitial pneumonitis versus mild interstitial edema. * No lung mass or suspicious nodules, there are scattered tiny micronodules, measuring 3 mm or less, nonspecific, commonly benign, do not meet the criteria for short-term follow-up. (Berrios images). * Diverticulosis without evidence of acute diverticulitis. * Atrophic fatty replaced pancreas. * Cholelithiasis. * IVC filter in place the tip of which is at the level of L3. * Heterogeneous uterus with uterine calcifications possibly fibroids. * Intraosseous radiolucency in the vertebral body of T3 probably an intraosseous hemangioma. * .
--- NOTE | 2023-07-22 15:41 | PC.NURSE ---
pt comes from home after unwitnessed fall. son was in next room and able to help pt off floor prior to EMS arrival. pt daughter and son at bedside. pt in soft collar. used bed luna, awaiting CT scan results. repositioned in bed, resting quietly in no apparent distress. rr even/unlabored. call alvarenga within reach. plan of care ongoing.
[2023-07-22 16:11] LABS: Glucose, Whole Blood 275 mg/dL (60-115)
--- NOTE | 2023-07-22 17:10 | ED.GENADULT ---
HPI - General Adult General Chief complaint: Fall Stated complaint: FALL + HEAD STRIKE - THINNERS + COLLAR Time Seen by Provider: 07/22/23 17:06 Source: patient Mode of arrival: ambulatory Limitations: no limitations History of Present Illness HPI narrative: 87-year-old female history of AFib, hypoxia, hypothyroidism, proximal AFib, heart block, acute on chronic respiratory failure, diabetes, hyperlipidemia, obesity, presents to ED for unwitnessed fall. as per patient after using the bathroom she was walking into the hallway id she lost her balance and fell backward. Patient usually walks with walker but did not have walker at that time. Patient does not know why she fall but just fell back, but most likely is because she did not have the walker and lost balance. Patient complaint is neck pain and left lower rib pain. Patient denies any loss of consciousness. Daughter states brother found patient and patient was conscious. Related Data Home Medications Medication Instructions Recorded Confirmed atorvastatin 20 mg tablet 20 mg PO BEDTIME 05/21/20 07/14/23 blood sugar diagnostic #10 ea 05/21/20 07/14/23 cholecalciferol (vitamin D3) 50 50 mcg PO DAILY 05/21/20 07/14/23 mcg (2,000 unit) tablet fluticasone 500 mcg-salmeterol 50 1 inh inhalation BID 05/21/20 07/14/23 mcg/dose blistr powdr for inhalation fluticasone propionate 50 2 spray intranasal DAILY 05/21/20 07/14/23 mcg/actuation nasal spray,suspension furosemide 40 mg tablet 40 mg PO QAM 05/21/20 07/14/23 lancets #100 ea 05/21/20 07/14/23 levothyroxine 100 mcg tablet 100 mcg PO DAILY@0630 05/21/20 07/14/23 omeprazole 20 mg capsule,delayed 20 mg PO BID@0630,1630 05/21/20 07/14/23 release pen needle, diabetic 32 gauge x #50 ea 05/21/20 07/14/23 sertraline 50 mg tablet 50 mg PO DAILY 05/21/20 07/14/23 metoprolol tartrate 25 mg tablet 12.5 mg PO BID 12/17/20 07/14/23 nebulizers (Sidestream misc) #1 ea 05/14/21 07/14/23 multivitamin-iron sulfate 15 1 tab PO QAM 12/15/21 07/14/23 mg-folic acid 400 mcg tablet (Tab-A-Judith Multivitamin w-iron) insulin lispro 100 unit/mL 8 unit subcut TIDAC 06/26/22 07/14/23 subcutaneous pen (Humalog KwikPen (U-100) Insulin) dulaglutide 1.5 mg/0.5 mL 1.5 mg subcut GREEN 09/20/22 07/14/23 subcutaneous pen injector (Trulicity) metformin 500 mg tablet,extended 500 mg PO BIDWM 09/20/22 07/14/23 release 24 hr warfarin 3 mg tablet 3 mg PO DAILY 01/18/23 07/14/23 alcohol swabs (Easy Touch Alcohol pad topical QID 04/19/23 07/14/23 Prep Pads) clonazepam 0.5 mg tablet 0.5 mg PO BEDTIME 04/19/23 07/14/23 docusate sodium 100 mg capsule 100 mg PO BID 04/19/23 07/14/23 Previous Rx's Medication Instructions Recorded insulin glargine 100 unit/mL (3 25 unit (0.25 mL) subcut DAILY #15 12/15/21 mL) subcutaneous pen (Lantus mL Solostar U-100 Insulin) Allergies Allergy/AdvReac Type Severity Reaction Status Date / Time acetaminophen [Tylenol] Allergy Intermediate rash Verified 07/14/23 11:03 aspirin [Aspirin] Allergy Mild Gastrointestinal Verified 07/14/23 11:03 Upset oxycodone [From PERCOCET] Allergy Unknown PALPITATION Verified 07/14/23 11:03 S From Robitussin Cough & Cold Allergy Intermediate hives Uncoded 07/14/23 11:03 Robitussin Cold Cough+ Chest Allergy Intermediate hives Uncoded 07/14/23 11:03 SEAFOOD Allergy Intermediate hives Uncoded 07/14/23 11:03 shellfish Allergy Intermediate hives Uncoded 07/14/23 11:03 Review of Systems Review of Systems: Fall onto back. Yes all other systems are reviewed and are negative [facility] Past Medical History Medical History Anxiety disorder Coronary artery disease Deep vein thrombosis Diabetes type 2, controlled Essential hypertension Gastroenteritis Hearing loss History of cerebrovascular accident Hyperlipemia Hypothyroidism Hypoxia Multiple falls Obesity due to excess calories Osteoarthritis Osteopenia Paroxysmal A-fib Pneumonia Senile cataract of left eye Sepsis Type 2 diabetes mellitus with diabetic polyneuropathy Urinary incontinence Surgical History History of bilateral tubal ligation Family History Family History Father Heart disease CVD (cardiovascular disease) Mother Diabetes Social History Social History Household Members: Family Housing: Apartment Do you presently have visiting nurse or other home services: Yes Alcohol intake: never Patient Tobacco Use Status: Never used Tobacco Smoked in Last 30 Days: No Use of substances other than those prescribed or required for medical reasons: No Advance Directives: Yes Advance Directives on File: Yes Advance Directives Date on File: 07/01/22 service: No Current occupational status: unemployed Sexual orientation: Straight/Heterosexual Gender identity: Female Physical Exam ED Vital Signs: Vital Signs - 24 hr 07/22/23 14:50 07/22/23 18:32 07/22/23 18:34 Temperature 98.9 F Pulse Rate 84 82 80 Respiratory Rate 18 Blood Pressure 166/68 H 143/60 H 149/62 H Pulse Oximetry 93 Oxygen Delivery Method Room Air 07/22/23 18:36 07/22/23 19:36 07/22/23 19:54 Temperature 98.1 F 98.4 F Pulse Rate 89 82 89 Respiratory Rate 14 16 Blood Pressure 120/66 144/57 H 143/62 H Pulse Oximetry 97 95 Oxygen Delivery Method Room Air 07/22/23 22:30 Temperature 97.4 F Pulse Rate 77 Respiratory Rate 14 Blood Pressure 130/80 Pulse Oximetry 95 Oxygen Delivery Method Room Air BMI result Body Mass Index 41.0 Const General: cooperative, healthy appearing, comfortable, no acute distress, well developed, alert and awake Orientation/consciousness: oriented to person, oriented to place, oriented to time and patient oriented x3 HENMT Head: Yes normal to inspection, Yes No palpable skull fracture present and Yes scalp tenderness (small occipital hematoma) Eyes General: appearance normal, both eyes and all related structures Neck Neck: Yes normal visual inspection, Yes full ROM, Yes no lymphadenopathy, Yes no meningeal signs, Yes trachea midline, Yes supple, No anterior neck swelling and Yes tender (mild posterior cervical tenderness) Chest Chest palpation & inspection: normal inspection of the chest Chest/axillae images: 1. Positive for tenderness on palpation. Negative crepitus or ecchymosis. negative erythema Resp Effort & Inspection: normal respiratory effort and able to speak in complete sentences Auscultation: clear to auscultation bilaterally Cardio Jugular venous distension: no JVD Heart sounds: S1 normal heart sound present and S2 normal heart sound present GI Inspection: Yes normal to inspection Palpation (GI): Soft to palpation, not firm, nontender, no guarding and not rigid General: No CVA tenderness and Yes no CVA tenderness Back/Spine/Pelvis Back: no CVA tenderness, No CVA tenderness and No back tenderness Skin General skin exam: no rashes or lesions noted and elasticity normal Neuro General: oriented to person, oriented to place, oriented to time, patient oriented x3, gait normal, tone normal, moves all extremities, Normal light touch and pain sensation, no meningeal signs, no focal motor deficits, CN's II-XI intact bilaterally and normal sensation to monofilament Extrem General: Yes normal to inspection and Yes full ROM Psych Appearance: grossly normal, well kempt and not disheveled Medical Decision Making Medical Decision Making [facility] Narrative: 87 year female history of heart block, diabetes, obesity, hypothyroidism, pneumonia, atrial fibrillation, presents to ED for unwitnessed fall. Patient usually ambulates with a walker while leaving the bathroom she did not have walker and just fell backwards. Probably mechanical due to age patient medical evaluation to make sure there was no other reason for fall. Patient denies any chest pain, abdominal pain, or headache before falling. 10:33pm: patient is 2 troponin negative. images negative for any fracture, brain bleed, skull fracture or hip fracture. Chest CT shows possible neoplasm of the intestines. Patient, patient's daughter and patient's son were informed of this reading and told to follow up immediately with Oncology and Gastroenterology. Seems like patient had a mechanical fall. Patient fell due to not having her walker while ambulating. Patient and daughter given copy of CT scan. Differential Diagnosis Differential Diagnoses: The differential diagnosis associated with the presentation includes ( Myocardial infarction, brain bleed, cervical spine fracture, bone fracture) Admission/Observation Consideration of admission/observation: Escalation of care including admission/observation considered Lab Data [facility] Lab Attestation statement: I reviewed the patient's lab results. 07/22/23 18:55 07/22/23 18:55 Labs: Lab Results 07/22/23 07/22/23 07/22/23 Range/Units 16:01 18:55 21:05 WBC 11.5 H (4.8-10.8) X10*3/uL RBC 4.33 (4.20-5.50) X10*6/uL Hgb 13.1 (12.0-16.0) g/dl Hct 40.6 (37.0-47.0) % MCV 93.8 (80.0-98.0) fL MCH 30.3 (27.0-33.0) pg MCHC 32.3 (31.0-35.0) g/dl RDW 12.9 (11.0-16.0) % Plt Count 144 L (160-400) X10*3/uL MPV 11.5 (9.4-12.3) fL Immature Gran % (Auto) 0.3 (0.0-0.4) % Neut % (Auto) 76.4 H (45-73) % Lymph % (Auto) 16.6 L (20-40) % Ashley % (Auto) 4.6 (2-11) % Eos % (Auto) 1.8 (0-4) % Baso % (Auto) 0.3 (0-2) % Lymph # (Auto) 1.9 (1.2-4.9) X10*3/uL Ashley # (Auto) 0.5 (0.1-1.2) X10*3/uL Eos # (Auto) 0.2 (0.0-0.4) X10*3/uL Baso # (Auto) 0.0 (0.0-0.2) X10*3/uL Abs Immat Gran (auto) 0.04 H (0.00-0.03) X10*3/uL Absolute Neuts (auto) 8.8 H (2.0-8.3) x10*3/uL Absolute Nucleated RBC 0.000 (0.0-0.012) X10*3/uL Nucleated RBC % (auto) 0.0 (0.0-0.2) /100WBC PT 27.1 H (11.1-13.3) SEC INR 2.2 H D (0.9-1.1) APTT 41.9 H (26.0-36.4) SEC Sodium 141 (135-145) mmol/L Potassium 5.0 (3.3-5.1) mmol/L Chloride 100 (96-108) mmol/L Carbon Dioxide 29 (22-29) mmol/L Anion Gap 17 (12-20) BUN 17 H (9-16) mg/dL Creatinine 1.10 (0.5-1.4) mg/dL Estim Creat Clear Calc 41.7 Estimated GFR 47 POC Glucose 275 H (60-115) mg/dL Random Glucose 256 H (60-115) mg/dL Calcium 10.2 (8.4-10.2) mg/dL Total Bilirubin 0.4 (0.0-1.0) mg/dL AST 22 (5-31) U/L ALT 15 (0-31) U/L Alkaline Phosphatase 122 H (39-117) U/L Troponin I High Sens 9.1 9.3 (<3.5-17.0) ng/L Total Protein 7.9 (6.5-8.0) g/dL Albumin 3.8 (3.5-5.0) g/dL Independent Interpretation I performed an independent interpretation of an: EKG ( Sinus rhythm first-degree AV block. Negative STEMI), Plain X-Ray and CT Scan Radiology Impression Discussion of test interpretation with radiology: I have reviewed the radiologist's reading. Independent Historian Clinical information obtained from an independent historian. History obtained from or confirmed by: Other ( daughter and son) External Record Review External record reviewed: Other ( prior ED visits) Prescription Management I considered prescription management with: Pain Medication Discharge Plan Discharge Clinical Impression: Fall, Head injury Patient Disposition: Home, Self-Care Instructions: Fall Prevention for Older Adults (ED), Head Injury (ED) Additional Instructions: Regrese al servicio de urgencias de inmediato si tiene dolor en el pecho, dificultad para respirar, dolor de shante, mareos, dolor en las extremidades, v?mitos con prakash, fiebre, escalofr?os, sangrado rectal, tos con prakash, dolor en las extremidades, dolor de sim o cualquier otro s?ntoma preocupante. Green tomograf?a computarizada muestra dorothy posible neoplasia intestinal. Es necesario realizar seguimiento con gastroenter?logo y onc?logo para colonoscopia y biopsia. return to the ED immediately any chest pain, shortness of breath, headache, dizziness, pain in extremities, vomiting blood, fever, chills, rectal bleeding, coughing up blood, pain in extremities, neck pain, or any other concerning symptoms. You're CT scan shows possible intestinal neoplasm. You need to follow-up with consumer experience consultant and oncologist for colonoscopy and biopsy. Prescriptions: No Action insulin lispro [Humalog KwikPen Insulin] 100 unit/mL insulin pen 8 unit subcut TIDAC Protocol: Insulin Correction Scale Less than or equal to 110 ---- Give (units): 0 111 to 150 Give (units): 0 151 to 200 Give (units): 2 201 to 250 Give (units): 4 251 to 300 Give (units): 6 301 to 350 Give (units): 8 Greater than 350 Give (units): 10 Call MD if Blood Glucose > : 350 metformin 500 mg tablet extended release 24 hr 500 mg PO BIDWM Trulicity 1.5 mg/0.5 mL pen injector 1.5 mg subcut GREEN (DME) pen needle, diabetic 32 gauge x 5/32 needle See Rx Instructions .ROUTE .MEDSUPPLY Qty: 50 Rx Instructions: As directed cholecalciferol (vitamin D3) 50 mcg (2,000 unit) tablet 50 mcg PO DAILY sertraline 50 mg tablet 50 mg PO DAILY fluticasone propionate 50 mcg/actuation spray,suspension 2 spray intranasal DAILY omeprazole 20 mg capsule,delayed release(DR/EC) 20 mg PO BID@0630,1630 fluticasone propion-salmeterol 500-50 mcg/dose blister with device 1 inh inhalation BID levothyroxine 100 mcg tablet 100 mcg PO DAILY@0630 furosemide 40 mg tablet 40 mg PO QAM (DME) lancets Misc See Rx Instructions .ROUTE .MEDSUPPLY Qty: 100 Rx Instructions: As directed (DME) blood sugar diagnostic Strip See Rx Instructions Not Applicable BID Qty: 10 Rx Instructions: As directed atorvastatin 20 mg tablet 20 mg PO BEDTIME metoprolol tartrate 25 mg tablet 12.5 mg PO BID Tab-A-Judith Multivitamin w-iron 15 mg iron- 400 mcg tablet 1 tab PO QAM Lantus Solostar U-100 Insulin 100 unit/mL (3 mL) insulin pen 25 unit subcut DAILY Qty: 15 5RF (DME) Sidestream Misc See Rx Instructions .ROUTE DIRECTED Qty: 1 Rx Instructions: As directed warfarin 3 mg tablet 3 mg PO DAILY Protocol: Dose Management Condition: Monday (Week One) Dose/Route: 4.5 mg Instruction: 1.5 x 3 mg tablets Condition: Monday Dose/Route: 3 mg Instruction: 1 x 3 mg tablet Condition: Monday Dose/Route: 4.5 mg Instruction: 1.5 x 3 mg tablets Condition: Monday Dose/Route: 4.5 mg Instruction: 1.5 x 3 mg tablets Condition: Dose/Route: 4.5 mg Instruction: 1.5 x 3 mg tablets Condition: Monday Dose/Route: 3 mg Instruction: 1 x 3 mg tablet Condition: Monday Dose/Route: 4.5 mg Instruction: 1.5 x 3 mg tablets Condition: Monday (Week Two) Dose/Route: 4.5 mg Instruction: 1.5 x 3 mg tablets Condition: Monday Dose/Route: 3 mg Instruction: 1 x 3 mg tablet Condition: Monday Dose/Route: 4.5 mg Instruction: 1.5 x 3 mg tablets Condition: Monday Dose/Route: 4.5 mg Instruction: 1.5 x 3 mg tablets Condition: Dose/Route: 4.5 mg Instruction: 1.5 x 3 mg tablets Condition: Monday Dose/Route: 3 mg Instruction: 1 x 3 mg tablet Condition: Monday Dose/Route: 4.5 mg Instruction: 1.5 x 3 mg tablets Protocol Text: Adjustment Start Date: Monday07/14/23 INR Value: 2.2 INR Date: 07/14/23 Recheck Date: 08/04/23 Additional Instructions: INR is in range continue same dosing balance greens and reds in diet Phelps Felipe!! Rx Instructions: 3 mg orally, 4.5MG X 3 DAYS/ 3MG X 4 DAYS; docusate sodium 100 mg capsule 100 mg PO BID clonazepam 0.5 mg tablet 0.5 mg PO BEDTIME alcohol swabs [Easy Touch Alcohol Prep Pads] Pads, Medicated topical QID Referrals: [facility] [place] Gastroenterology Services [Provider Group] (As per CT scan possible intestinal neoplasm) [facility] [place] Oncology/Hematology [Provider Group] (As per CT scan possible intestinal neoplasm) Interventions: ED Discharge Assessment Last Done: 07/23/23 00:05 Discharge Date/Time: 07/23/23 00:05 Print Language: Ugandan
[2023-07-22 19:00] LABS: MANUAL DIFF FLAG NO
[2023-07-22 19:02] LABS: Basophils Percent Auto 0.3 % (0-2); Eosinophils Absolute Auto 0.2 X10*3/uL (0.0-0.4); Eosinophils Percent Auto 1.8 % (0-4); Hematocrit 40.6 % (37.0-47.0); Hemoglobin 13.1 g/dl (12.0-16.0); Imm Gran Abs Auto 0.04 X10*3/uL (0.00-0.03); Imm Gran Pct Auto 0.3 % (0.0-0.4); Lymphocytes Absolute Auto 1.9 X10*3/uL (1.2-4.9); Lymphocytes Percent Auto 16.6 % (20-40); Mean Corpuscular HGB Conc 32.3 g/dl (31.0-35.0); Mean Corpuscular Hemoglobin 30.3 pg (27.0-33.0); Mean Corpuscular Volume 93.8 fL (80.0-98.0); Mean Platelet Volume 11.5 fL (9.4-12.3); Monocytes Absolute Auto 0.5 X10*3/uL (0.1-1.2); Monocytes Percent Auto 4.6 % (2-11); Neutrophils Absolute Auto 8.8 x10*3/uL (2.0-8.3); Neutrophils Percent Auto 76.4 % (45-73); Platelet Count 144 X10*3/uL (160-400); Red Blood Count 4.33 X10*6/uL (4.20-5.50); Red Cell Distribution Width 12.9 % (11.0-16.0); White Blood Count 11.5 X10*3/uL (4.8-10.8)
[2023-07-22 19:07] LABS: INTERNATIONAL NORM RATIO 2.2 (0.9-1.1); Prothrombin Time 27.1 SEC (11.1-13.3)
[2023-07-22 19:10] LABS: Partial Thromboplastin Time 41.9 SEC (26.0-36.4)
[2023-07-22 19:20] LABS: Alanine Aminotransferase 15 U/L (0-31); Albumin Level 3.8 g/dL (3.5-5.0); Alkaline Phosphatase 122 U/L (39-117); Anion Gap 17 (12-20); Aspartate Amino Transferase 22 U/L (5-31); Bilirubin Total 0.4 mg/dL (0.0-1.0); Blood Urea Nitrogen 17 mg/dL (9-16); Calcium 10.2 mg/dL (8.4-10.2); Carbon Dioxide 29 mmol/L (22-29); Chloride 100 mmol/L (96-108); Creatinine Clr Calc Pharmacy 41.7; Estimated Glomerular Filt Rate 47; Glucose Random 256 mg/dL (60-115); Sodium 141 mmol/L (135-145); Total Protein 7.9 g/dL (6.5-8.0)
[2023-07-22 19:26] LABS: Troponin-I High Sensitivity 9.1 ng/L (<3.5-17.0)
--- NOTE | 2023-07-22 19:47 | PC.NURSE ---
Pt reports falling at home due to not using the walker. Pt encouraged to use walker at all times while ambulating.
[2023-07-22 21:29] LABS: Troponin-I High Sensitivity 9.3 ng/L (<3.5-17.0)
--- NOTE | 2023-07-22 22:34 | ECG_ITS ---
Test Reason : FALL Blood Pressure : / mmHG Vent. Rate : 086 BPM Atrial Rate : 086 BPM P-R Int : 342 ms QRS Dur : 088 ms QT Int : 330 ms P-R-T Axes : 000 065 044 degrees QTc Int : 394 ms Sinus rhythm with 1st degree A-V block Otherwise normal ECG When compared with ECG of 01-APR-2023 17:59, No significant change was found Referred By: Bronson Dias Electronically Signed By:CATHI PEOPLES MD
== END 2023-07-23 00:05 | disposition home or self-care (01) ==
PROVIDERS: Physician Assistant; Emergency Provider Emergency Medicine
DX: S09.90XA Unspecified injury of head, initial encounter (principal); R07.89 Other chest pain; R51.9 Headache, unspecified; R10.2 Pelvic and perineal pain; M54.2 Cervicalgia; X58.XXXA Exposure to other specified factors, initial encounter; Y93.9 Activity, unspecified; Y92.9 Unspecified place or not applicable; Y99.9 Unspecified external cause status; Z79.899 Other long term (current) drug therapy
CPT/HCPCS: 36415; 70450; 71250; 72125; 74176; 80053; 82947; 84484; 85025; 85610; 85730; 93005; 99284; 99285

== ENCOUNTER → 2023-07-22 22:34 | Outpatient (BNV) | payer OTHER, SELFPAY | PROVIDERS: Emergency Provider Emergency Medicine; Visit Provider Internal Medicine Cardiovascular Disease | DX: I44.0 Atrioventricular block, first degree (principal) | CPT/HCPCS: 93010 ==

== ENCOUNTER 2023-08-23 16:57 | Outpatient (REF) | payer OTHER, SELFPAY ==
[2023-08-24 13:40] LABS: H Pylori Breath Test Negative (Negative)
== END 2023-08-23 16:58 | disposition home or self-care (01) ==
LOC: HO.HHCLNP 16:57
PROVIDERS: Visit Provider Family Medicine
DX: K21.9 Gastro-esophageal reflux disease without esophagitis (principal)
CPT/HCPCS: 83013

== ENCOUNTER 2023-08-31 15:43 | Outpatient (REF) | payer OTHER, SELFPAY ==
--- NOTE | ~2023-08-31 | XR_ITS ---
EXAMINATION: XR SHOULDER, RIGHT CLINICAL INFORMATION: Pain and diminished range of motion. COMPARISON: Radiographs dated 04/01/2023. TECHNIQUE: AP external rotation, Grashey and scapula Y views of the right shoulder are submitted. FINDINGS: There is bony demineralization. A healed fracture is seen of the proximal right humerus, with chronic deformity. Again, there is superior subluxation of the humeral head relative to the glenoid, related to the deformity. There is narrowing of the rotator cuff interval, suggesting rotator cuff pathology. The acromioclavicular and coracoclavicular intervals are normal. No acute fracture or dislocation is seen. No soft tissue calcification or foreign body is seen. There is no right pneumothorax. XR/XR shoulder RT min 2V IMPRESSION: There is a stable chronic, healed fracture of the proximal right humerus, with residual deformity. There is persistent narrowing of the rotator cuff interval, suggesting rotator cuff pathology.
[2023-08-31 17:39] LABS: Hematocrit 40.4 % (37.0-47.0); Hemoglobin 13.1 g/dl (12.0-16.0); Mean Corpuscular HGB Conc 32.4 g/dl (31.0-35.0); Mean Corpuscular Hemoglobin 30.8 pg (27.0-33.0); Mean Corpuscular Volume 95.1 fL (80.0-98.0); Mean Platelet Volume 12.8 fL (9.4-12.3); Platelet Count 108 X10*3/uL (160-400); Red Blood Count 4.25 X10*6/uL (4.20-5.50); Red Cell Distribution Width 13.3 % (11.0-16.0); White Blood Count 9.2 X10*3/uL (4.8-10.8)
[2023-08-31 18:00] LABS: Creatinine Urine 25.77 mg/dL; Microalbum/Creatinine Ratio Ur 120.2 ug/mg cr (<30)
[2023-08-31 18:09] LABS: Alanine Aminotransferase 18 U/L (0-31); Albumin Level 3.9 g/dL (3.5-5.0); Alkaline Phosphatase 132 U/L (39-117); Anion Gap 14 (12-20); Aspartate Amino Transferase 21 U/L (5-31); Bilirubin Direct 0.2 mg/dL (0.0-0.5); Bilirubin Total 0.4 mg/dL (0.0-1.0); Blood Urea Nitrogen 16 mg/dL (9-16); Calcium 9.8 mg/dL (8.4-10.2); Carbon Dioxide 30 mmol/L (22-29); Chloride 100 mmol/L (96-108); Cholesterol 149 mg/dL (<200); Estimated Glomerular Filt Rate 41; Glucose Random 338 mg/dL (60-115); HDL Cholesterol 39 mg/dL (>40); LDL Cholesterol Calculated 41 mg/dL (<100); Potassium 3.8 mmol/L (3.3-5.1); Sodium 140 mmol/L (135-145); Total Protein 7.9 g/dL (6.5-8.0); Triglycerides 349 mg/dL (<150)
[2023-08-31 18:15] LABS: Free T4 (Free Thyroxine) 0.87 ng/dL (0.71-1.85); Thyroid Stimulating Hormone 3.44 uIU/mL (0.32-4.0); Vitamin D 25-OH Total 43.8 ng/mL (>30)
[2023-09-01 07:14] LABS: Estimated Average Glucose 214 mg/dL; Hemoglobin A1c % 9.1 % (<6.0)
== END 2023-08-31 15:44 | disposition home or self-care (01) ==
LOC: HO.HHCX 15:43
PROVIDERS: Visit Provider Family Medicine
DX: M25.511 Pain in right shoulder (principal); E11.65 Type 2 diabetes mellitus with hyperglycemia; Z79.4 Long term (current) use of insulin
CPT/HCPCS: 36415; 73030; 80048; 80061; 80076; 82043; 82306; 82570; 83036; 84439; 84443; 85027

== ENCOUNTER 2023-09-06 11:14 | Outpatient (AMB) | payer OTHER, SELFPAY ==
--- NOTE | 2023-09-06 11:28 | MHC.OFFVISCO ---
Intake Intake Visit Reasons: Anticoagulation Allergies acetaminophen [Tylenol] Allergy (Intermediate, Verified 09/06/23 11:22) rash aspirin [Aspirin] Allergy (Mild, Verified 09/06/23 11:22) Gastrointestinal Upset oxycodone [From PERCOCET] Allergy (Unknown, Verified 09/06/23 11:22) PALPITATIONS From Robitussin Cough & Cold Allergy (Intermediate, Uncoded 09/06/23 11:22) hives Robitussin Cold Cough+ Chest Allergy (Intermediate, Uncoded 09/06/23 11:22) hives SEAFOOD Allergy (Intermediate, Uncoded 09/06/23 11:22) hives shellfish Allergy (Intermediate, Uncoded 09/06/23 11:22) hives Medication List - Last Reconciled 09/06/23 by Danielle Chávez, RN alcohol swabs (Easy Touch Alcohol Prep Pads) pad topical QID atorvastatin 20 mg PO BEDTIME blood sugar diagnostic As directed cholecalciferol (vitamin D3) 50 mcg PO DAILY clonazepam 0.5 mg PO BEDTIME docusate sodium 100 mg PO BID dulaglutide (Trulicity) 1.5 mg subcut DURON fluticasone propion-salmeterol 500-50 mcg/dose 1 inh inhalation BID fluticasone propionate 50 mcg/actuation 2 sprays intranasal DAILY furosemide 40 mg PO QAM insulin glargine (Lantus Solostar U-100 Insulin) 25 units (0.25 mL) subcut DAILY insulin lispro (Humalog KwikPen (U-100) Insulin) 8 units See Protocol subcut TIDAC lancets As directed levothyroxine 100 mcg PO DAILY@0630 metformin ER 500 mg PO BIDWM metoprolol tartrate 12.5 mg PO BID multivit-iron sulf-folic acid 15 mg iron- 400 mcg (Tab-A-Judith Multivitamin w-iron) 1 tab PO QAM nebulizers (Sidestream misc) As directed omeprazole 20 mg PO BID@0630,1630 pen needle, diabetic As directed sertraline 50 mg PO DAILY warfarin 3 mg See Protocol PO DAILY Nursing Note INR 1.7- out of therapeutic range of 2-3 denies missed dose Medications and supplements reviewed Patient status: amb with walker, c.o right shoulder pain, limited rom, pt grandson states is going to have physical therapy Medications or supplements: no changes Diet: same Denies any signs and symptoms of bleeding or clotting or unusual bruising Bleeding, bruising, clotting discussed Nutritional guidance given: no greens for 2-3 days, eat reds to raise Dose: 6mg today then cont reg dosing 3mg x 2, 4.5mg x 5 F/U INR Date : 2 weeks? Patient and grandson margaret verbalizing understanding of instructions given. Anti-Coag Initial Assessment Social Hx Patient Tobacco Use Status: Never used Tobacco alcohol intake: never Alcohol intake frequency: does not drink Coding Level of Care Code Warafin Pt Mnmt Anticoag Diagnoses Current use of anticoagulant therapy Z79.01 Results AMB INR Fingerstick AMB INR Fingerstick 1.7 Last Edit by Danielle Chávez RN on 09/06/23 11:28 Assessment & Plan Assessment & Plan (1) Current use of anticoagulant therapy: Code(s): Z79.01 - senior care (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 Category: Medical
[2023-09-06 11:29] LABS: Prothrombin Time Whole Bld POC 20.7 sec (11.1-13.5); ~PT, ~INR - Anti Coag Clinic 1.7 (0.9-1.1)
--- NOTE | 2023-11-07 11:50 | MHC.OFFVISCO ---
Intake Intake Visit Reasons: Anticoagulation Allergies shellfish derived Allergy (Severe, Verified 10/17/23 14:38) Hives aspirin [Aspirin] Allergy (Mild, Verified 10/17/23 14:38) Gastrointestinal Upset ibuprofen Allergy (Unknown, Verified 10/17/23 14:38) Unknown oxycodone [From PERCOCET] Allergy (Unknown, Verified 10/17/23 14:38) PALPITATIONS Robitussin Cold Cough+ Chest Allergy (Intermediate, Uncoded 10/13/23 11:06) hives SEAFOOD Allergy (Intermediate, Uncoded 10/13/23 11:06) hives Medication List - Last Reconciled 09/06/23 by Danielle Chávez RN alcohol swabs (Easy Touch Alcohol Prep Pads) pad topical QID atorvastatin 20 mg PO BEDTIME blood sugar diagnostic As directed cholecalciferol (vitamin D3) 50 mcg PO DAILY clonazepam 0.5 mg PO BEDTIME docusate sodium 100 mg PO BID dulaglutide (Trulicity) 1.5 mg subcut DURON fluticasone propion-salmeterol 500-50 mcg/dose 1 inh inhalation BID fluticasone propionate 50 mcg/actuation 2 sprays intranasal DAILY furosemide 40 mg PO QAM insulin glargine (Lantus Solostar U-100 Insulin) 25 units (0.25 mL) subcut DAILY insulin lispro (Humalog KwikPen (U-100) Insulin) 8 units See Protocol subcut TIDAC lancets As directed levothyroxine 100 mcg PO DAILY@0630 metformin ER 500 mg PO BIDWM metoprolol tartrate 12.5 mg PO BID multivit-iron sulf-folic acid 15 mg iron- 400 mcg (Tab-A-Judith Multivitamin w-iron) 1 tab PO QAM nebulizers (Sidestream misc) As directed omeprazole 20 mg PO BID@0630,1630 pen needle, diabetic As directed sertraline 50 mg PO DAILY warfarin 3 mg See Protocol PO DAILY Nursing Note note being copied and pated in order to add billing code: Chapin Brambila W Male : 10/16/1942 MedRec# [id number] 08/22/23 11:00 - Nursing Note by Danielle Chávez RN Acct Num: [id number] : 10/16/1942 Patient Age: 80 Addendum entered by Alison Gonzalez RN 10/09/23 09:58: PLEASE CHANGE BILLING CODE TO LEVEL 1 IN OFFICE VISIT FROM [facility] Original Note: Intake Intake Visit Reasons: Anticoagulation Allergies No Known Allergies Allergy (Mild, Verified 08/22/23 10:56) NONE Medication List - Last Reconciled 08/22/23 by Danielle Chávez RN albuterol sulfate 90 mcg/actuation 2 inhalations inhalation Q4-6H PRN allopurinol 300 mg PO DAILY amiodarone 100 mg PO DAILY bicalutamide 50 mg PO DAILY cholecalciferol (vitamin D3) (Vitamin D3) 25 mcg PO DAILY lisinopril 5 mg PO DAILY mecobalamin (vitamin B12) 1,000 mcg sublingual DAILY metoprolol tartrate 25 mg PO BID omega-3 fatty acids 500 mg PO DAILY simvastatin 10 mg PO DAILY warfarin 2.5 mg See Protocol PO 2XW Nursing Note INR: 2.1- in therapeutic range of 2-3 Medications and supplements reviewed- no changes No changes in health, diet, medications, or supplements, Denies any signs and symptoms of bleeding or bruising or clotting. Bleeding, bruising, clotting discussed Nutritional guidance given - Dose: 2.5mg x 3, 1.25mg x 4 F/U INR: 4 weeks Patient with mariluz- verbalizes understanding of instructions given Anti-Coag Initial Assessment Social Hx Patient Tobacco Use Status: Former Tobacco user Quit Date: 1999 Tobacco use type: Cigarette alcohol intake: never Coding Level of Care Code Warafin Pt Mnmt Anticoag Diagnoses Current use of anticoagulant therapy Z79.01 Results AMB INR Fingerstick AMB INR Fingerstick 2.1 ? Last Edit by Danielle Chávez RN on 08/22/23 11:01 Assessment & Plan Assessment & Plan (1) Current use of anticoagulant therapy: Code(s): Z79.01 - skilled nursing (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 Initialized on 08/22/23 11:00 - END OF NOTE Anti-Coag Initial Assessment Social Hx Patient Tobacco Use Status: Never used Tobacco alcohol intake: former Alcohol intake frequency: does not drink Coding Level of Care Code Est Patient Level 1 Diagnoses Current use of anticoagulant therapy Z79.01 Comment change billing code to office visit Results AMB INR Fingerstick AMB INR Fingerstick 1.7 Last Edit by Danielle Chávez RN on 09/06/23 11:28 Assessment & Plan Assessment & Plan (1) Current use of anticoagulant therapy: Code(s): Z79.01 - 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
== END 2023-09-06 11:35 | disposition home or self-care (01) ==
LOC: HO.ACS 11:14
PROVIDERS: Visit Provider Internal Medicine
DX: Z79.01 Long term (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 (principal)

== ENCOUNTER → 2023-09-06 11:14 | Outpatient (BNVA) | payer OTHER, SELFPAY | PROVIDERS: Visit Provider Internal Medicine | DX: I48.0 Paroxysmal atrial fibrillation (principal); Z79.01 Long term (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; Z51.81 Encounter for therapeutic drug level monitoring | CPT/HCPCS: 85610; 99211 ==

== ENCOUNTER 2023-10-13 11:04 | Outpatient (AMB) | payer OTHER, SELFPAY ==
[2023-10-13 11:13] LABS: Prothrombin Time Whole Bld POC 21.1 sec (11.1-13.5); ~PT, ~INR - Anti Coag Clinic 1.8 (0.9-1.1)
--- NOTE | 2023-10-13 11:20 | MHC.OFFVISCO ---
Intake Intake Visit Reasons: Anticoagulation Allergies acetaminophen [Tylenol] Allergy (Intermediate, Verified 10/13/23 11:06) rash aspirin [Aspirin] Allergy (Mild, Verified 10/13/23 11:06) Gastrointestinal Upset oxycodone [From PERCOCET] Allergy (Unknown, Verified 10/13/23 11:06) PALPITATIONS From Robitussin Cough & Cold Allergy (Intermediate, Uncoded 10/13/23 11:06) hives Robitussin Cold Cough+ Chest Allergy (Intermediate, Uncoded 10/13/23 11:06) hives SEAFOOD Allergy (Intermediate, Uncoded 10/13/23 11:06) hives shellfish Allergy (Intermediate, Uncoded 10/13/23 11:06) hives Medication List - Last Reconciled 10/13/23 by Alison Gonzalez RN alcohol swabs (Easy Touch Alcohol Prep Pads) pad topical QID atorvastatin 20 mg PO BEDTIME blood sugar diagnostic As directed cholecalciferol (vitamin D3) 50 mcg PO DAILY clonazepam 0.5 mg PO BEDTIME docusate sodium 100 mg PO BID dulaglutide (Trulicity) 1.5 mg subcut DURON fluticasone propion-salmeterol 500-50 mcg/dose 1 inh inhalation BID fluticasone propionate 50 mcg/actuation 2 sprays intranasal DAILY furosemide 40 mg PO QAM insulin glargine (Lantus Solostar U-100 Insulin) 25 units (0.25 mL) subcut DAILY insulin lispro (Humalog KwikPen (U-100) Insulin) 8 units See Protocol subcut TIDAC lancets As directed levothyroxine 100 mcg PO DAILY@0630 metformin ER 500 mg PO BIDWM metoprolol tartrate 12.5 mg PO BID multivit-iron sulf-folic acid 15 mg iron- 400 mcg (Tab-A-Judith Multivitamin w-iron) 1 tab PO QAM nebulizers (Sidestream misc) As directed omeprazole 20 mg PO BID@0630,1630 pen needle, diabetic As directed sertraline 50 mg PO DAILY warfarin 3 mg See Protocol PO DAILY Nursing Note pt with LEAD RELAY 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 grandson, walking steady with walker, A+Ox3 and situation, INR 1.8 out of therapeutic range Medications and supplements reviewed Patient status: INR trending low, unable to determine reason for low INR Medications or supplements: no changes Diet: appetite is good Denies any signs and symptoms of bleeding or clotting or unusual bruising Bleeding, bruising, clotting discussed Nutritional guidance given: REVIEW FOOD LIST WEEKLY, EAT MIX OF FRUITS AND VEGETABLES, AVOID GREENS TODAY AND TOMORROW, EAT FOODS TO HELP RAISE THE INR TODAY Dose: INCREASE SLIGHTLY 4.5MG X 6 DAYS/ 3MG MONDAYS F/U INR Date : 2 WEEKS?? Patient verbalizing understanding of instructions given. 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
== END 2023-10-13 11:23 | disposition home or self-care (01) ==
LOC: HO.ACS 11:04
PROVIDERS: PCP Family Medicine; Visit Provider Internal Medicine
DX: Z79.01 Long term (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 (principal)

== ENCOUNTER → 2023-10-13 11:04 | Outpatient (BNVA) | payer OTHER, SELFPAY | PROVIDERS: PCP Family Medicine; Visit Provider Internal Medicine | DX: I48.0 Paroxysmal atrial fibrillation (principal); Z79.01 Long term (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; Z51.81 Encounter for therapeutic drug level monitoring | CPT/HCPCS: 85610; 99211 ==

== ENCOUNTER 2023-10-17 14:12 | Outpatient (AMB) | payer OTHER, SELFPAY ==
--- NOTE | 2023-10-17 14:21 | A.OFFVIS_ITS ---
Intake Vital Signs 10/17/23 14:23 Height 5 ft 3 in Weight 238 lb BMI 42.2 BP 144/63 H Blood Pressure Location Lt brachial Position Sitting Pulse 65 Intake Visit Reasons: Colonoscopy Intake Note: New patient in office today for colonoscopy screening. CC: PT reports LUQ abdominal pain, constipation, and nausea. Denies other GI concerns today. Chief Investigator Required: No Accompanied by: Daughter Allergies shellfish derived Allergy (Severe, Verified 10/17/23 14:38) Hives aspirin [Aspirin] Allergy (Mild, Verified 10/17/23 14:38) Gastrointestinal Upset ibuprofen Allergy (Unknown, Verified 10/17/23 14:38) Unknown oxycodone [From PERCOCET] Allergy (Unknown, Verified 10/17/23 14:38) PALPITATIONS Robitussin Cold Cough+ Chest Allergy (Intermediate, Uncoded 10/13/23 11:06) hives SEAFOOD Allergy (Intermediate, Uncoded 10/13/23 11:06) hives HPI Colonoscopy HPI Details 88-year-old female here for preprocedura l meeting to discuss a screening colonoscopy. This is in the context of an abnormal CT scan showing a possible thickened region of the transverse colon. She is referred by Valeri Lerner of [facility]. 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 History of CVA Diabetes HYPOTHYROID Coronary artery disease Hypertension High cholesterol Carotid artery stenosis bilateral Varicose veins GERD Hematuria MULTIPLE FALLS HISTORY OF SEPSIS OSTEOPENIA HARD OF HEARING ANXIETY DISORDER * SURGICAL HISTORY Left breast surgery Tubal ligation IVC filter placement * ALLERGIES Aspirin Ibuprofen Oxycodone Robitussin Shellfish * [employer] LABS: Laboratory Tests 08/31/23 16:11 WBC 9.2 Hgb 13.1 Hct 40.4 Plt Count 108 L Estimated GFR 41 Hemoglobin A1c % 9.1 H Total Bilirubin 0.4 Direct Bilirubin 0.2 AST 21 ALT 18 Alkaline Phosphata se 132 H TSH 3.[address] ABDOMEN AND PELVIS 07/22/23 FINDINGS: DE ALCOHOLIZER, LINES TUBES: Engraver Wood reviewed, no lines. LUNGS: Interstitial: Diminished lung volume, prominence of the pulmonary vasculature, mild congestion Mild interstitial opacification lingula base and upper lobes nonspecific, could be small airway disease versus mild interstitial pneumonitis versus mild interstitial edema. No dense lobar consolidation. Lung nodules: - No evidence of neoplasm. No lung mass or suspicious nodules, there are scattered tiny micronodules, measuring 3 mm or less, nonspecific, commonly benign, do not meet the criteria for short-term follow-up. (Berrios images). AIRWAYS: Trachea and bronchi are normal. PLEURA: No pleural effusion or pneumothorax. MEDIASTINUM AND SHO: The visualized thyroid gland is unremarkable. No mediastinal, hilar or axillary lymphadenopathy. There is no mediastinal mass. THORACIC AORTA: Thoracic aorta is normal in size. CHEST WALL, LOWER NECK, SURROUNDING SOFT TISSUES: Intraosseous radiolucency in the vertebral body of T3 likely interosseous hemangioma. HEART AND PERICARDIUM: Heart is enlarged. There are heavy coronary calcifications. HEPATOBILIARY: No focal hepatic lesions. No biliary ductal dilatation. GALLBLADDER: There are few gallstones. SPLEEN: Spleen is normal in size. PANCREAS: Pancreas is atrophic fatty replaced. GI TRACT: There is diverticulosis without evidence of acute diverticulitis. Short segment of the transverse colon has somewhat circumferential wall thickening although could be peristalsis, cannot rule out mucosal lesion, this would require correlation with follow-up colonoscopy or barium enema. Berrios image. Normal appendix. ADRENALS: No adrenal nodules. KIDNEYS/URETERS: Simple cyst right kidney 1.9 cm Bosniak class I, this is likely benign, no follow-up required. Similar cyst upper pole left kidney 1.1 cm. No kidney stones or hydronephrosis. PELVIC ORGANS/BLADDER: Heterogeneous uterus with uterine calcifications possibly fibroids. PERITONEUM: No free air or fluid. LYMPH NODES: no retroperitoneal or mesenteric lymphadenopathy. VASCULAR:There are aortic calcifications, no aneurysm. There is IVC filter in place the tip of which is at the level of L3 BONES, ABDOMINAL WALL AND SOFT TISSUES: Age-appropriate changes of the spine and skeletal system, no destructive osteolytic or osteosclerotic bone lesion found CT/CT abdomen pelvis wo IV con IMPRESSION: * Short segment of the transverse colon has somewhat circumferential wall thickening although could be peristalsis, CANNOT RULE OUT NEOPLASM. This would require correlation with FOLLOW-UP COLONOSCOPY OR BARIUM ENEMA. * No CT evidence of rib fractures. * Cardiomegaly, heavy coronary calcification, vascular congestion, mild interstitial opacification nonspecific could be mild interstitial pneumonitis versus mild interstitial edema. * No lung mass or suspicious nodules, there are scattered tiny micronodules, measuring 3 mm or less, nonspecific, commonly benign, do not meet the criteria for short-term follow-up. (Berrios images). * Diverticulosis without evidence of acute diverticulitis. * Atrophic fatty replaced pancreas. * Cholelithiasis. * IVC filter in place the tip of which is at the level of L3. * Heterogeneous uterus with uterine calcifications possibly fibroids. * Intraosseous radiolucency in the vertebral body of T3 probably an intraosseous hemangioma. TODAY'S VISIT Swiss #dtr translates per pt request She is here today because of an abnormal CT scan that showed a possible lesion in the transverse colon. She had a prior colonoscopy > 8 years ago. She can not remember where in the area, she does not remember if there were any findings. Her cabin crew is Dr. Bradshaw and we will need clearance from him prior to the procedure, she does not have any current breathing problems since her hospitalization for pneumonia. She has been having multiple falls recently although she can stand. There are no prior problems with anesthesia or sedation. NO ID problems. There is no known FHX of crc or polyps but there is breast cancer. [facility] Medical History (Updated 10/17/23 @ 16:18 by JASMYNE Chavarria) Multiple falls Acute on chronic respiratory failure with hypoxemia Weakness Pneumonia Urgency incontinence Menopause Well woman exam Current use of anticoagulant therapy Stenosis of carotid artery Diabetes type 2, controlled Sepsis Gastroenteritis Hypoxia Pneumonia Urinary incontinence Obesity due to excess calories Type 2 diabetes mellitus with diabetic polyneuropathy Senile cataract of left eye Essential hypertension Hyperlipemia Paroxysmal A-fib Anxiety disorder Hypothyroidism Coronary artery disease History of cerebrovascular accident Osteoarthritis Osteopenia Deep vein thrombosis Hearing loss Surgical History H/O colonoscopy H/O breast surgery S/P IVC filter History of bilateral tubal ligation Family History Father Heart disease CVD (cardiovascular disease) Mother Diabetes Social History Household Members: Family Housing: Apartment Do you presently have visiting nurse or other home services: Yes Alcohol intake: never Patient Tobacco Use Status: Never used Tobacco Advance Directives Date on File: 07/01/22 service: No Current occupational status: unemployed Sexual orientation: Straight/Heterosexual Gender identity: Female Female Reproductive History Menstrual Age of Menarche: 10 Review of Systems Const Denies fatigue, Denies fever(s), Reports frequent falls, Denies night sweats, Denies poor appetite and Denies weight loss ENT Reports Normal hearing present, Denies dysphagia, Denies odynophagia, Denies throat swelling and Denies tongue swelling Card Reports leg edema Resp Reports cough GI Details: Denies abdominal pain, Denies melena, Denies bloating, Denies hematochezia, Denies constipation, Denies GI cramping, Denies dysphagia, Denies excessive flatus, Denies early satiety, Reports heartburn, Denies diarrhea, Denies nausea, Denies odynophagia, Denies vomiting and Denies hematemesis Musc Reports abnormal gait Skin/Breast Denies pruritus, Denies lesions, Reports erythema, Denies rash and Denies jaundice Neuro Reports Normal hearing present, Denies Abnormal speech present, Reports abnormal gait and Reports frequent falls Psych Reports anxiety Endo Denies fatigue Aller/Immun Denies throat swelling and Denies tongue swelling Physical Exam Vital Signs: Last Vital Signs Pulse 65 10/17/23 14:23 BP 144/63 H 10/17/23 14:23 BMI result Body Mass Index 42.2 Const General: cooperative, no acute distress, well developed and well groomed Nutritional Appearance: well nourished and obese morbidly obese Orientation/consciousness: oriented to person, oriented to place and oriented to time Limitations: language barrier and wheelchair HEENT Head: Yes normocephalic and Yes atraumatic Eyes General: appearance normal, both eyes and all related structures Pupils: Equal, round and reactive pupils present Neck Neck: Yes normal visual inspection and Yes no lymphadenopathy Thyroid: Thyroid normal Resp Effort & Inspection: normal respiratory effort and able to speak in complete sentences Auscultation: clear to auscultation bilaterally Cardio Rate: regular rate Rhythm: regular rhythm Heart sounds: Normal, physiologic split S2 sound present Peripheral pulses: radial pulses present and posterior tibial pulses present GI Inspection: No distended, Yes Abdominal panniculus present and Yes obesity Palpation (GI): Soft to palpation, nontender, no guarding, not rigid and No hepatosplenomegaly present Percussion: Yes normal to percussion Auscultation: normal bowel sounds Rectal Exam - Female: deferred Skin General skin exam: no rashes or lesions noted, turgor normal, skin not dry, no jaundice, No spider nevi and no striae Rashes: no rashes Nails: normal Neuro General: oriented to person, oriented to place and oriented to time Cranial nerves: Yes Equal, round and reactive pupils present and Yes Normal hearing present Speech: No Abnormal speech present Extrem General: Yes normal to inspection, No clubbing, No cyanosis, Yes edema and Yes venous stasis dermatitis (worse right than left) Psych Appearance: grossly normal and well kempt Mental Status: mental status grossly normal Speech and movement: Normal speech and movement present Affect: normal affect Attitude: cooperative Thought process: Normal thought process present and not confabulating Thought content: Normal thought content present Insight: Limited insight present (Psych) Judgement: Limited judgement present (Psych) Results Reviewed Results Reviewed: Laboratory Tests 08/31/23 16:11 WBC 9.2 Hgb 13.1 Hct 40.4 Plt Count 108 L Estimated GFR 41 Hemoglobin A1c % 9.1 H Total Bilirubin 0.4 Direct Bilirubin 0.2 AST 21 ALT 18 Alkaline Phosphatase 132 H TSH 3.[address] ABDOMEN AND PELVIS 07/22/23 FINDINGS: DE ALCOHOLIZER, LINES TUBES: Engraver Wood reviewed, no lines. LUNGS: Interstitial: Diminished lung volume, prominence of the pulmonary vasculature, mild congestion Mild interstitial opacification lingula base and upper lobes nonspecific, could be small airway disease versus mild interstitial pneumonitis versus mild interstitial edema. No dense lobar consolidation. Lung nodules: - No evidence of neoplasm. No lung mass or suspicious nodules, there are scattered tiny micronodules, measuring 3 mm or less, nonspecific, commonly benign, do not meet the criteria for short-term follow-up. (Berrios images). AIRWAYS: Trachea and bronchi are normal. PLEURA: No pleural effusion or pneumothorax. MEDIASTINUM AND SHO: The visualized thyroid gland is unremarkable. No mediastinal, hilar or axillary lymphadenopathy. There is no mediastinal mass. THORACIC AORTA: Thoracic aorta is normal in size. CHEST WALL, LOWER NECK, SURROUNDING SOFT TISSUES: Intraosseous radiolucency in the vertebral body of T3 likely interosseous hemangioma. HEART AND PERICARDIUM: Heart is enlarged. There are heavy coronary calcifications. HEPATOBILIARY: No focal hepatic lesions. No biliary ductal dilatation. GALLBLADDER: There are few gallstones. SPLEEN: Spleen is normal in size. PANCREAS: Pancreas is atrophic fatty replaced. GI TRACT: There is diverticulosis without evidence of acute diverticulitis. Short segment of the transverse colon has somewhat circumferential wall thickening although could be peristalsis, cannot rule out mucosal lesion, this would require correlation with follow-up colonoscopy or barium enema. Berrios image. Normal appendix. ADRENALS: No adrenal nodules. KIDNEYS/URETERS: Simple cyst right kidney 1.9 cm Bosniak class I, this is likely benign, no follow-up required. Similar cyst upper pole left kidney 1.1 cm. No kidney stones or hydronephrosis. PELVIC ORGANS/BLADDER: Heterogeneous uterus with uterine calcifications possibly fibroids. PERITONEUM: No free air or fluid. LYMPH NODES: no retroperitoneal or mesenteric lymphadenopathy. VASCULAR:There are aortic calcifications, no aneurysm. There is IVC filter in place the tip of which is at the level of L3 BONES, ABDOMINAL WALL AND SOFT TISSUES: Age-appropriate changes of the spine and skeletal system, no destructive osteolytic or osteosclerotic bone lesion found CT/CT abdomen pelvis wo IV con IMPRESSION: * Short segment of the transverse colon has somewhat circumferential wall thickening although could be peristalsis, CANNOT RULE OUT NEOPLASM. This would require correlation with FOLLOW-UP COLONOSCOPY OR BARIUM ENEMA. * No CT evidence of rib fractures. * Cardiomegaly, heavy coronary calcification, vascular congestion, mild interstitial opacification nonspecific could be mild interstitial pneumonitis versus mild interstitial edema. * No lung mass or suspicious nodules, there are scattered tiny micronodules, measuring 3 mm or less, nonspecific, commonly benign, do not meet the criteria for short-term follow-up. (Berrios images). * Diverticulosis without evidence of acute diverticulitis. * Atrophic fatty replaced pancreas. * Cholelithiasis. * IVC filter in place the tip of which is at the level of L3. * Heterogeneous uterus with uterine calcifications possibly fibroids. * Intraosseous radiolucency in the vertebral body of T3 probably an intraosseous hemangioma. Assessment & Plan Assessment & Plan (1) Abnormal CT of the abdomen: Code(s): R93.5 - Abnormal findings on diagnostic imaging of other abdominal regions, including retroperitoneum (2) Chronic anticoagulation: Comment: On Coumadin Code(s): Z79.01 - watermaster (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 (3) Chronic anticoagulation: Code(s): Z79.01 - [facility] (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 (4) Paroxysmal A-fib: Code(s): I48.0 - Paroxysmal atrial fibrillation (5) Deep vein thrombosis: Code(s): I82.409 - Acute embolism and thrombosis of unspecified deep veins of unspecified lower extremity (6) Presence of IVC filter: Code(s): Z95.828 - Presence of other vascular implants and grafts (7) Multiple falls: Code(s): R29.6 - Repeated falls Plan Swiss #dtr translates per pt request She is here today because of an abnormal CT scan that showed a possible lesion in the transverse colon. She had a prior colonoscopy > 8 years ago. She can not remember where in the area, she does not remember if there were any findings. Her cabin crew is Dr. Bradshaw and we will need clearance from him prior to the procedure, she does not have any current breathing problems since her hospitalization for pneumonia. She has been having multiple falls recently although she can stand. There are no prior problems with anesthesia or sedation. NO ID problems. There is no known FHX of crc or polyps but there is breast cancer. Orders: Orders Colonoscopy - GI Use Only Today I48.0 - Paroxysmal atrial fibrillation, I82.409 - Acute embolism and thrombosis of unspecified deep veins of unspecified lower extremity, R93.5 - Abnormal findings on diagnostic imaging of other abdominal regions, including retroperitoneum, Z79.01 - watermaster (current) use of anticoa gulants Medications: New peg 3350-electrolytes [id number] -5.86 gram (Golytely) until fecal effluent is clear; do not exceed a total volume of 2,000 mL 240 mL PO Q10M 1 day 4,000 mL 0RF Z12.11 - Encounter for screening for malignant neoplasm of colon bisacodyl (Dulcolax (bisacodyl)) 10 mg (2 x 5 mg) PO BEDTIME 2 days 4 tabs 0RF Coding Level of Care Code New Pt Level 3 (70763) Diagnoses Abnormal CT of the abdomen R93.5 Chronic anticoagulation Z79.01 Paroxysmal A-fib I48.0 Deep vein thrombosis I82.409 Presence of IVC filter Z95.828 Multiple falls R29.6
[2023-10-17 14:23] VITALS: BP 144/63; PULSE 65; BMI 42.2
== END 2023-10-17 15:17 | disposition home or self-care (01) ==
PROVIDERS: PCP Family Medicine; Visit Provider Nurse Practitioner
DX: R93.5 Abnormal findings on diagnostic imaging of other abdominal regions, including retroperitoneum (principal); Z79.01 Long term (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; I48.0 Paroxysmal atrial fibrillation; I82.409 Acute embolism and thrombosis of unspecified deep veins of unspecified lower extremity; Z95.828 Presence of other vascular implants and grafts; R29.6 Repeated falls
CPT/HCPCS: 99203

== ENCOUNTER → 2023-10-17 14:12 | Outpatient (BNVA) | payer OTHER, SELFPAY | PROVIDERS: PCP Family Medicine; Visit Provider Nurse Practitioner | DX: I48.0 Paroxysmal atrial fibrillation (principal); R93.5 Abnormal findings on diagnostic imaging of other abdominal regions, including retroperitoneum; I82.409 Acute embolism and thrombosis of unspecified deep veins of unspecified lower extremity; R29.6 Repeated falls; Z95.828 Presence of other vascular implants and grafts; Z79.01 Long term (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 | CPT/HCPCS: 99202 ==

== ENCOUNTER 2023-10-26 16:15 | Emergency (ER) | payer OTHER, SELFPAY ==
--- NOTE | ~2023-10-26 | CT_ITS ---
EXAMINATION: CT HEAD WITHOUT CONTRAST CT CERVICAL SPINE WITHOUT CONTRAST CLINICAL INFORMATION: Trauma, neck pain, right forehead contusion. COMPARISON: CT head and cervical spine 07/22/2023. TECHNIQUE: Contiguous axial imaging was performed from the skull base to vertex without intravenous administration of contrast. Contiguous axial imaging was performed from the upper chest through the skull base without intravenous administration of contrast. Coronal and sagittal reformats were obtained at the acquisition workstation. This CT examination was performed using dose optimization techniques as appropriate, variously including the following: *Automated exposure control *Adjustment of mA and/or kV according to patient size (this includes techniques or standardized protocols for targeted exams where dose is matched to indication/reason for exam; i.e. extremities or head) *Use of iterative reconstruction technique DLP: 703 and 636 mGy-cm FINDINGS: Head: There is no evidence of acute intracranial hemorrhage or edematous territorial infarction. A few foci of hypoattenuation in the periventricular and deep white matter are consistent with mild microangiopathy. Britton-white matter differentiation is preserved. Proportional prominence of the ventricles and sulcal spaces. No evidence for obstructive hydrocephalus. No abnormal mass effect or midline shift. No extra-axial fluid collections. Stable expansile cystic lesion within the left cavernous sinus when compared to multiple prior studies. Right frontal scalp hematoma. No calvarial fracture. The mastoid air cells and paranasal sinuses are clear. Cervical Spine: The atlantoaxial and atlantooccipital articulations are maintained. Straightening of the cervical lordosis. Stable minimal degenerative body height loss at C5 and C6. No evidence of acute compression deformity or traumatic subluxation. Vertebral body hemangioma noted at T3. Hypertrophic degenerative changes involving the atlantodental interval. Mild multilevel intervertebral disc height loss and facet arthropathy. Mild multilevel osteophytes. No prevertebral soft tissue thickening. The thyroid gland and remaining cervical soft tissues are normal in appearance. Unchanged 4 mm solitary right apical lung nodule (4:290). CT/CT cervical spine wo IV con IMPRESSION: 1. Right frontal scalp hematoma without acute intracranial abnormalities. 2. Unchanged expansile cystic lesion within the left cavernous sinus when compared to multiple prior studies. 3. No acute cervical spinal fractures or malalignment. 4. Straightening of the cervical lordosis that could be related with patient's positioning or muscular spasm. 5. Stable multilevel cervical spondylosis. 6. Redemonstration of a 4 mm solid right apical lung nodule. According to the UPDATED 2017 Fleischner Society recommendations, the advised follow-up imaging for nodules <6mm in the upper lobes is not necessarily required in low-risk patients. In high-risk patients with a nodule in the upper lobe and/or demonstrating suspicious morphology, an optional CT follow-up at 12 months may be obtained. If stable at 12 months, no further follow-up is recommended.
--- NOTE | ~2023-10-26 | XR_ITS ---
EXAMINATION: XR CHEST CLINICAL INFORMATION: Fall. Low oxygen saturation. COMPARISON: Chest x-ray 09/23/[address] chest 07/22/2023 TECHNIQUE: Frontal view of the chest was obtained. FINDINGS: No significant abnormality is noted involving the heart, lungs, mediastinum, bony thorax or soft tissues. XR/XR chest 1V IMPRESSION: Unremarkable chest examination.
--- NOTE | 2023-10-26 16:23 | ED.GENADULT ---
HPI - General Adult General Chief complaint: Fall Stated complaint: FALL W/ HEADSTRIKE,-LOC,R SIDE FACIAL/GNOSTICIST PAIN Time Seen by Provider: 10/26/23 16:23 History of Present Illness HPI narrative: The patient is an 88-year-old woman on warfarin who fell at home. She tried to sit on her bed when she slipped and fell. She struck her right forehead and has bruising to the right forehead. She is complaining of pain where she struck her head. She has not complaining of significant pain elsewhere. There was no loss of consciousness. An ambulance was called and she was brought to the hospital. Related Data Home Medications Medication Instructions Recorded Confirmed atorvastatin 20 mg tablet 20 mg PO BEDTIME 05/21/20 10/13/23 blood sugar diagnostic #10 ea 05/21/20 10/13/23 cholecalciferol (vitamin D3) 50 50 mcg PO DAILY 05/21/20 10/13/23 mcg (2,000 unit) tablet fluticasone 500 mcg-salmeterol 50 1 inh inhalation BID 05/21/20 10/13/23 mcg/dose blistr powdr for inhalation fluticasone propionate 50 2 spray intranasal DAILY 05/21/20 10/13/23 mcg/actuation nasal spray,suspension furosemide 40 mg tablet 40 mg PO QAM 05/21/20 10/13/23 lancets #100 ea 05/21/20 10/13/23 levothyroxine 100 mcg tablet 100 mcg PO DAILY@0630 05/21/20 10/13/23 omeprazole 20 mg capsule,delayed 20 mg PO BID@0630,1630 05/21/20 10/13/23 release pen needle, diabetic 32 gauge x #50 ea 05/21/20 10/13/23/32 sertraline 50 mg tablet 50 mg PO DAILY 05/21/20 10/13/23 metoprolol tartrate 25 mg tablet 12.5 mg PO BID 12/17/20 10/13/23 nebulizers (Sidestream misc) #1 ea 05/14/21 10/13/23 multivitamin-iron sulfate 15 1 tab PO QAM 12/15/21 10/13/23 mg-folic acid 400 mcg tablet (Tab-A-Judith Multivitamin w-iron) insulin lispro 100 unit/mL 8 unit subcut TIDAC 06/26/22 10/13/23 subcutaneous pen (Humalog KwikPen (U-100) Insulin) dulaglutide 1.5 mg/0.5 mL 1.5 mg subcut DURON 09/20/22 10/13/23 subcutaneous pen injector (Trulicity) metformin 500 mg tablet,extended 500 mg PO BIDWM 09/20/22 10/13/23 release 24 hr warfarin 3 mg tablet 3 mg PO DAILY 01/18/23 10/13/23 alcohol swabs (Easy Touch Alcohol pad topical QID 04/19/23 10/13/23 Prep Pads) clonazepam 0.5 mg tablet 0.5 mg PO BEDTIME 04/19/23 10/13/23 docusate sodium 100 mg capsule 100 mg PO BID 04/19/23 10/13/23 solifenacin 5 mg tablet 5 mg PO QAM 10/17/23 Previous Rx's Medication Instructions Recorded insulin glargine 100 unit/mL (3 25 unit (0.25 mL) subcut DAILY #15 12/15/21 mL) subcutaneous pen (Lantus mL Solostar U-100 Insulin) bisacodyl 5 mg tablet,delayed 10 mg (2 x 5 mg) PO BEDTIME 2 days 10/17/23 release (Dulcolax (bisacodyl)) #4 tabs peg 3350-electrolytes 236 240 ml PO Q10M 1 day #4,000 mL 10/17/23 gram-22.74 gram-6.74 gram-5.86 gram solution (Golytely) Allergies Allergy/AdvReac Type Severity Reaction Status Date / Time shellfish derived Allergy Severe Hives Verified 10/17/23 14:38 aspirin [Aspirin] Allergy Mild Gastrointestinal Verified 10/17/23 14:38 Upset ibuprofen Allergy Unknown Unknown Verified 10/17/23 14:38 oxycodone [From PERCOCET] Allergy Unknown PALPITATION Verified 10/17/23 14:38 S Robitussin Cold Cough+ Chest Allergy Intermediate hives Uncoded 10/13/23 11:06 SEAFOOD Allergy Intermediate hives Uncoded 10/13/23 11:06 Review of Systems Review of Systems: Yes all other systems are reviewed and are negative PMFSH Past Medical History Medical History (Updated 10/27/23 @ 00:01 by Background Daemon) Multiple falls Acute on chronic respiratory failure with hypoxemia Weakness Pneumonia Urgency incontinence Menopause Well woman exam Current use of anticoagulant therapy Stenosis of carotid artery Diabetes type 2, controlled Sepsis Gastroenteritis Hypoxia Pneumonia Urinary incontinence Obesity due to excess calories Type 2 diabetes mellitus with diabetic polyneuropathy Senile cataract of left eye Essential hypertension Hyperlipemia Paroxysmal A-fib Anxiety disorder Hypothyroidism Coronary artery disease History of cerebrovascular accident Osteoarthritis Osteopenia Deep vein thrombosis Hearing loss Surgical History H/O colonoscopy H/O breast surgery S/P IVC filter History of bilateral tubal ligation Family History Family History Father Heart disease CVD (cardiovascular disease) Mother Diabetes Social History Social History Household Members: Family Housing: Apartment Do you presently have visiting nurse or other home services: Yes Alcohol intake: former Patient Tobacco Use Status: Never used Tobacco Smoked in Last 30 Days: No Use of substances other than those prescribed or required for medical reasons: No Advance Directives: Yes Advance Directives on File: Yes Advance Directives Date on File: 07/01/22 service: No Current occupational status: unemployed Sexual orientation: Straight/Heterosexual Gender identity: Female Physical Exam ED Vital Signs: Vital Signs - 24 hr 10/26/23 16:35 10/26/23 19:48 10/26/23 21:18 Temperature 98.6 F 97.6 F Pulse Rate 72 78 58 Respiratory Rate 18 18 16 Blood Pressure 162/80 H 144/87 H 149/59 H Pulse Oximetry 93 93 93 Oxygen Delivery Method Room Air Room Air Room Air 10/26/23 21:19 Temperature 97.6 F Pulse Rate 58 Respiratory Rate 16 Blood Pressure 149/59 H Pulse Oximetry 93 Oxygen Delivery Method Room Air BMI result Body Mass Index 37.7 HENMT Other: The patient is a chronically unwell looking 88-year-old. She looks as though she is ordinarily quite frail. She has obvious bruising to the right forehead. She is awake and alert with a cheerful demeanor. Eyes Other: Pupils are round equal, conjunctivae clear, extraocular movements intact, eyelids normal Neck Other: Mild posterior C-spine tenderness. No remarkable amount of pain with range of motion Resp Effort & Inspection: normal respiratory effort Auscultation: clear to auscultation bilaterally Cardio Rate: regular rate Rhythm: regular rhythm Heart sounds: S1 normal heart sound present and S2 normal heart sound present GI Other: Abdomen is soft and nontender Back/Spine/Pelvis Other: No midline vertebral tenderness in the back. Skin Other: There is soft tissue swelling and bruising to the right forehead. The skin is intact. No other signs of injury. Neuro Other: The patient is awake and alert, pleasant and cooperative. Face is symmetrical. Speech is clear. She moves her extremities symmetrically and was able to ambulate steadily with a walker Extrem Other: No signs of trauma to the extremities Medical Decision Making Medical Decision Making MDM Narrative: The patient is an 88-year-old woman who had a fall at home in which she struck her head and sustained an obvious bruise to the right forehead. She is on warfarin. A CT scan of the head and neck were done which were negative for acute traumatic injuries aside from the evident right forehead contusion. This seems to have been a mechanical fall. An EKG is unremarkable. Labs are unremarkable. She looked well after a period of observation and was hungry and ate some food. She feels comfortable being discharged with her family. Lab Data 10/26/23 19:33 10/26/23 19:33 Labs: Lab Results 10/26/23 10/26/23 Range/Units 19:33 20:38 WBC 9.0 (4.8-10.8) X10*3/uL RBC 4.14 L (4.20-5.50) X10*6/uL Hgb 13.0 (12.0-16.0) g/dl Hct 39.5 (37.0-47.0) % MCV 95.4 (80.0-98.0) fL MCH 31.4 (27.0-33.0) pg MCHC 32.9 (31.0-35.0) g/dl RDW 12.9 (11.0-16.0) % Plt Count 134 L (160-400) X10*3/uL MPV 11.0 (9.4-12.3) fL Immature Gran % (Auto) 0.2 (0.0-0.4) % Neut % (Auto) 67.6 (45-73) % Lymph % (Auto) 23.9 (20-40) % Ramsey % (Auto) 5.0 (2-11) % Eos % (Auto) 3.0 (0-4) % Baso % (Auto) 0.3 (0-2) % Lymph # (Auto) 2.2 (1.2-4.9) X10*3/uL Ramsey # (Auto) 0.5 (0.1-1.2) X10*3/uL Eos # (Auto) 0.3 (0.0-0.4) X10*3/uL Baso # (Auto) 0.0 (0.0-0.2) X10*3/uL Abs Immat Gran (auto) 0.02 (0.00-0.03) X10*3/uL Absolute Neuts (auto) 6.1 (2.0-8.3) x10*3/uL Absolute Nucleated RBC 0.000 (0.0-0.012) X10*3/uL Nucleated RBC % (auto) 0.0 (0.0-0.2) /100WBC PT 25.3 H (11.1-13.3) SEC INR 2.1 H (0.9-1.1) Sodium 143 (135-145) mmol/L Potassium 4.0 (3.3-5.1) mmol/L Chloride 102 (96-108) mmol/L Carbon Dioxide 29 (22-29) mmol/L Anion Gap 16 (12-20) BUN 16 (9-16) mg/dL Creatinine 0.87 (0.5-1.4) mg/dL Estim Creat Clear Calc 53.0 Estimated GFR > 60 POC Glucose 187 H (60-115) mg/dL Random Glucose 268 H (60-115) mg/dL Calcium 10.0 (8.4-10.2) mg/dL Magnesium 1.6 (1.6-2.6) mg/dL Independent Interpretation I performed an independent interpretation of an: EKG Interpretation: EKG at 1826 shows sinus rhythm with first-degree AV block at 76 beats per minute no definite acute ischemic changes. Discharge Plan Discharge Clinical Impression: Fall, Head injury, Forehead contusion Patient Disposition: Home, Self-Care Additional Instructions: Your testing in the emergency department is reassuring. Please continue your regular medications at home. Please be very careful with moving around so that you do not fall and hurt yourself. Consider trying to get a new walker that you like better at home. Follow up with your regular doctor. Return to the emergency room if worse. Prescriptions: No Action insulin lispro [Humalog KwikPen Insulin] 100 unit/mL insulin pen 8 unit subcut TIDAC Protocol: Insulin Correction Scale Less than or equal to 110 ---- Give (units): 0 111 to 150 Give (units): 0 151 to 200 Give (units): 2 201 to 250 Give (units): 4 251 to 300 Give (units): 6 301 to 350 Give (units): 8 Greater than 350 Give (units): 10 Call MD if Blood Glucose > : 350 metformin 500 mg tablet extended release 24 hr 500 mg PO BIDWM Trulicity 1.5 mg/0.5 mL pen injector 1.5 mg subcut DURON (DME) pen needle, diabetic 32 gauge x 5/32 needle See Rx Instructions .ROUTE .MEDSUPPLY Qty: 50 Rx Instructions: As directed cholecalciferol (vitamin D3) 50 mcg (2,000 unit) tablet 50 mcg PO DAILY sertraline 50 mg tablet 50 mg PO DAILY fluticasone propionate 50 mcg/actuation spray,suspension 2 spray intranasal DAILY omeprazole 20 mg capsule,delayed release(DR/EC) 20 mg PO BID@0630,1630 fluticasone propion-salmeterol 500-50 mcg/dose blister with device 1 inh inhalation BID levothyroxine 100 mcg tablet 100 mcg PO DAILY@0630 furosemide 40 mg tablet 40 mg PO QAM (DME[facility] Rx Instructions .ROUTE .MEDSUPPLY Qty: 100 Rx Instructions: As directed (DME) blood sugar diagnostic Strip See Rx Instructions Not Applicable BID Qty: 10 Rx Instructions: As directed atorvastatin 20 mg tablet 20 mg PO BEDTIME metoprolol tartrate 25 mg tablet 12.5 mg PO BID Tab-A-Judith Multivitamin w-iron 15 mg iron- 400 mcg tablet 1 tab PO QAM Lantus Solostar U-100 Insulin 100 unit/mL (3 mL) insulin pen 25 unit subcut DAILY Qty: 15 5RF (DME) Sidestream Misc See Rx Instructions .ROUTE DIRECTED Qty: 1 Rx Instructions: As directed warfarin 3 mg tablet 3 mg PO DAILY Protocol: Dose Management Condition: Monday (Week One) Dose/Route: 4.5 mg Instruction: 1.5 x 3 mg tablets Condition: Monday Dose/Route: 3 mg Instruction: 1 x 3 mg tablet Condition: Monday Dose/Route: 4.5 mg Instruction: 1.5 x 3 mg tablets Condition: Monday Dose/Route: 4.5 mg Instruction: 1.5 x 3 mg tablets Condition: Dose/Route: 4.5 mg Instruction: 1.5 x 3 mg tablets Condition: Monday Dose/Route: 4.5 mg Instruction: 1.5 x 3 mg tablets Condition: Monday Dose/Route: 4.5 mg Instruction: 1.5 x 3 mg tablets Condition: Monday (Week Two) Dose/Route: 4.5 mg Instruction: 1.5 x 3 mg tablets Condition: Monday Dose/Route: 3 mg Instruction: 1 x 3 mg tablet Condition: Monday Dose/Route: 4.5 mg Instruction: 1.5 x 3 mg tablets Condition: Monday Dose/Route: 4.5 mg Instruction: 1.5 x 3 mg tablets Condition: Dose/Route: 4.5 mg Instruction: 1.5 x 3 mg tablets Condition: Monday Dose/Route: 4.5 mg Instruction: 1.5 x 3 mg tablets Condition: Monday Dose/Route: 4.5 mg Instruction: 1.5 x 3 mg tablets Protocol Text: Adjustment Start Date: Monday10/13/23 INR Value: 1.8 INR Date: 10/13/23 Recheck Date: 10/27/23 Additional Instructions: REVIEW FOOD LIST WEEKLY, EAT A MIX OF FRUITS AND VEGETABLES, AVOID GREENS TODAY AND TOMORROW BECAUSE YOUR INR IS LOW, EAT FOODS TODAY FROM THE THINNING LIST LIKE ORANGE OR RED VEGETABLES OR FRUITS. Rx Instructions: 3 mg orally, 4.5MG X 3 DAYS/ 3MG X 4 DAYS; docusate sodium 100 mg capsule 100 mg PO BID clonazepam 0.5 mg tablet 0.5 mg PO BEDTIME alcohol swabs [Easy Touch Alcohol Prep Pads] Pads, Medicated topical QID solifenacin 5 mg tablet 5 mg PO QAM peg 3350-electrolytes [Golytely] 236-22.74-6.74 -5.86 gram recon soln 240 ml PO Q10M 1 Days Qty: 4000 0RF Rx Instructions: until fecal effluent is clear; do not exceed a total volume of 2,000 mL bisacodyl [Dulcolax (bisacodyl)] 5 mg tablet,delayed release (DR/EC) 10 mg PO BEDTIME 2 Days Qty: 4 0RF Referrals: Valeri Lerner DO [Physician] - (Fall) Interventions: ED Discharge Assessment Last Done: 10/26/23 21:19 Discharge Date/Time: 10/26/23 21:19
[2023-10-26 16:26] VITALS: BP 140/96; PULSE 103
[2023-10-26 16:35] VITALS: BP 162/80; PULSE 72; RESP 18; O2SAT 93; BMI 37.7
--- NOTE | 2023-10-26 17:16 | ECG_ITS ---
Test Reason : FALL Blood Pressure : / mmHG Vent. Rate : 076 BPM Atrial Rate : 076 BPM P-R Int : 268 ms QRS Dur : 090 ms QT Int : 396 ms P-R-T Axes : 058 041 063 degrees QTc Int : 445 ms Sinus rhythm with 1st degree A-V block Artifact Normal ECG When compared with ECG of 22-JUL-2023 22:46, No significant changes seen Referred By: Sukh Nunes Electronically Signed By:Jon Blancas
[2023-10-26 19:38] LABS: MANUAL DIFF FLAG NO
[2023-10-26 19:41] LABS: Basophils Percent Auto 0.3 % (0-2); Eosinophils Absolute Auto 0.3 X10*3/uL (0.0-0.4); Hematocrit 39.5 % (37.0-47.0); Imm Gran Abs Auto 0.02 X10*3/uL (0.00-0.03); Imm Gran Pct Auto 0.2 % (0.0-0.4); Lymphocytes Absolute Auto 2.2 X10*3/uL (1.2-4.9); Lymphocytes Percent Auto 23.9 % (20-40); Mean Corpuscular HGB Conc 32.9 g/dl (31.0-35.0); Mean Corpuscular Hemoglobin 31.4 pg (27.0-33.0); Mean Corpuscular Volume 95.4 fL (80.0-98.0); Monocytes Absolute Auto 0.5 X10*3/uL (0.1-1.2); Neutrophils Absolute Auto 6.1 x10*3/uL (2.0-8.3); Neutrophils Percent Auto 67.6 % (45-73); Platelet Count 134 X10*3/uL (160-400); Red Blood Count 4.14 X10*6/uL (4.20-5.50); Red Cell Distribution Width 12.9 % (11.0-16.0)
[2023-10-26 19:48] VITALS: BP 144/87; PULSE 78; RESP 18; TEMP 37; O2SAT 93
[2023-10-26 19:48] LABS: INTERNATIONAL NORM RATIO 2.1 (0.9-1.1); Prothrombin Time 25.3 SEC (11.1-13.3)
--- NOTE | 2023-10-26 19:50 | MHC.EDTECH ---
Patient inc therefore patient changed and repositioned
[2023-10-26 19:55] LABS: Anion Gap 16 (12-20); Blood Urea Nitrogen 16 mg/dL (9-16); Carbon Dioxide 29 mmol/L (22-29); Chloride 102 mmol/L (96-108); Estimated Glomerular Filt Rate > 60; Glucose Random 268 mg/dL (60-115); Magnesium 1.6 mg/dL (1.6-2.6); Sodium 143 mmol/L (135-145)
[2023-10-26 20:42] LABS: Glucose, Whole Blood 187 mg/dL (60-115)
[2023-10-26 21:18] VITALS: BP 149/59; PULSE 58; RESP 16; TEMP 36.4; O2SAT 93
[2023-10-26 21:19] VITALS: BP 149/59; PULSE 58; RESP 16; TEMP 36.4; O2SAT 93
== END 2023-10-26 21:19 | disposition home or self-care (01) ==
PROVIDERS: Emergency Provider Emergency Medicine
DX: S00.83XA Contusion of other part of head, initial encounter (principal); I48.0 Paroxysmal atrial fibrillation; E11.9 Type 2 diabetes mellitus without complications; I10 Essential (primary) hypertension; I25.10 Atherosclerotic heart disease of native coronary artery without angina pectoris; Z86.73 Personal history of transient ischemic attack (TIA), and cerebral infarction without residual deficits; Z86.718 Personal history of other venous thrombosis and embolism; Z79.01 Long term (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; W06.XXXA Fall from bed, initial encounter; Y93.9 Activity, unspecified; Y92.003 Bedroom of unspecified non-institutional (private) residence as the place of occurrence of the external cause; Y99.9 Unspecified external cause status
CPT/HCPCS: 36415; 70450; 71045; 72125; 80048; 82947; 83735; 85025; 85610; 93005; 99284

== ENCOUNTER → 2023-10-26 17:16 | Outpatient (BNV) | payer OTHER, SELFPAY | PROVIDERS: Emergency Provider Emergency Medicine; Visit Provider Internal Medicine Cardiovascular Disease | DX: I44.0 Atrioventricular block, first degree (principal) | CPT/HCPCS: 93010 ==

== ENCOUNTER → 2023-10-27 12:11 | Outpatient (BNVA) | payer OTHER, SELFPAY | PROVIDERS: Visit Provider Internal Medicine ==

== ENCOUNTER 2023-11-09 22:36 | Emergency (ER) | payer OTHER, SELFPAY ==
--- NOTE | ~2023-11-09 | XR_ITS ---
EXAMINATION: XR HAND, LEFT CLINICAL INFORMATION: Pain, swelling, redness. No known injury. COMPARISON: None available. TECHNIQUE: PA, lateral, and oblique views of the left hand. FINDINGS: Nonspecific deformity in the dorsal wrist on the lateral view, underlying fracture is not excluded. Moderate multifocal degenerative osteoarthritis. Chondrocalcinosis noted adjacent to the MCP joints as well as wrist. Nonspecific diffuse soft tissue swelling. XR/XR hand LT min 3V IMPRESSION: 1. Deformity in the dorsal wrist on the lateral view, underlying fracture is not excluded. Correlate for point tenderness. 2. Moderate multifocal degenerative osteoarthritis. 3. Chondrocalcinosis. 4. Diffuse soft tissue swelling.
[2023-11-09 22:41] VITALS: BP 198/78; PULSE 77; RESP 16; TEMP 37.3; O2SAT 95; BMI 39.3
[2023-11-09 23:19] LABS: MANUAL DIFF FLAG NO
[2023-11-09 23:23] LABS: Basophils Percent Auto 0.3 % (0-2); Eosinophils Absolute Auto 0.2 X10*3/uL (0.0-0.4); Eosinophils Percent Auto 2.2 % (0-4); Hematocrit 37.3 % (37.0-47.0); Hemoglobin 12.1 g/dl (12.0-16.0); Imm Gran Abs Auto 0.04 X10*3/uL (0.00-0.03); Imm Gran Pct Auto 0.4 % (0.0-0.4); Lymphocytes Absolute Auto 2.6 X10*3/uL (1.2-4.9); Lymphocytes Percent Auto 23.9 % (20-40); Mean Corpuscular HGB Conc 32.4 g/dl (31.0-35.0); Mean Corpuscular Hemoglobin 30.3 pg (27.0-33.0); Mean Corpuscular Volume 93.5 fL (80.0-98.0); Mean Platelet Volume 10.8 fL (9.4-12.3); Monocytes Absolute Auto 0.7 X10*3/uL (0.1-1.2); Monocytes Percent Auto 6.2 % (2-11); Neutrophils Absolute Auto 7.3 x10*3/uL (2.0-8.3); Platelet Count 177 X10*3/uL (160-400); Red Blood Count 3.99 X10*6/uL (4.20-5.50); Red Cell Distribution Width 12.9 % (11.0-16.0); White Blood Count 10.9 X10*3/uL (4.8-10.8)
[2023-11-09 23:37] LABS: Alanine Aminotransferase 13 U/L (0-31); Albumin Level 3.7 g/dL (3.5-5.0); Alkaline Phosphatase 117 U/L (39-117); Anion Gap 13 (12-20); Aspartate Amino Transferase 15 U/L (5-31); Bilirubin Total 0.3 mg/dL (0.0-1.0); Blood Urea Nitrogen 15 mg/dL (9-16); Calcium 9.8 mg/dL (8.4-10.2); Carbon Dioxide 29 mmol/L (22-29); Chloride 102 mmol/L (96-108); Creatinine Clr Calc Pharmacy 45.4; Estimated Glomerular Filt Rate 50; Glucose Random 271 mg/dL (60-115); Potassium 3.7 mmol/L (3.3-5.1); Sodium 140 mmol/L (135-145); Total Protein 7.5 g/dL (6.5-8.0)
--- NOTE | 2023-11-10 00:08 | ED.EXTPRO ---
HPI - Extremity Problem General Chief complaint: Extremity Injury, Upper Stated complaint: lt swollen hand Time Seen by Provider: 11/09/23 23:44 Source: patient, family, RN notes reviewed and old records reviewed Mode of arrival: ambulatory Limitations: language barrier (Declined interpreting services) History of Present Illness HPI Narrative: 88-year-old female presents for evaluation of left hand pain. The patient has had increasing left hand pain for the last 2 days. She denies any trauma to the hand or wrist. She has redness, swelling and pain to the top of the left hand The patient's daughter is concerned for an infection as the patient is a diabetic She has no wounds to the area The patient has not had any fevers She denies any history of gout Related Data Home Medications ?Medication ?Instructions ?Recorded ?Confirmed atorvastatin 20 mg tablet 20 mg PO BEDTIME 05/21/20 10/13/23 blood sugar diagnostic #10 ea 05/21/20 10/13/23 cholecalciferol (vitamin D3) 50 50 mcg PO DAILY 05/21/20 10/13/23 mcg (2,000 unit) tablet fluticasone 500 mcg-salmeterol 50 1 inh inhalation BID 05/21/20 10/13/23 mcg/dose blistr powdr for inhalation fluticasone propionate 50 2 spray intranasal DAILY 05/21/20 10/13/23 mcg/actuation nasal spray,suspension furosemide 40 mg tablet 40 mg PO QAM 05/21/20 10/13/23 lancets #100 ea 05/21/20 10/13/23 levothyroxine 100 mcg tablet 100 mcg PO DAILY@0630 05/21/20 10/13/23 omeprazole 20 mg capsule,delayed 20 mg PO BID@0630,1630 05/21/20 10/13/23 release pen needle, diabetic 32 gauge x #50 ea 05/21/20 10/13/23/32 sertraline 50 mg tablet 50 mg PO DAILY 05/21/20 10/13/23 metoprolol tartrate 25 mg tablet 12.5 mg PO BID 12/17/20 10/13/23 nebulizers (Sidestream misc) #1 ea 05/14/21 10/13/23 multivitamin-iron sulfate 15 1 tab PO QAM 12/15/21 10/13/23 mg-folic acid 400 mcg tablet (Tab-A-Judith Multivitamin w-iron) insulin lispro 100 unit/mL 8 unit subcut TIDAC 06/26/22 10/13/23 subcutaneous pen (Humalog KwikPen (U-100) Insulin) dulaglutide 1.5 mg/0.5 mL 1.5 mg subcut DURON 09/20/22 10/13/23 subcutaneous pen injector (Trulicity) metformin 500 mg tablet,extended 500 mg PO BIDWM 09/20/22 10/13/23 release 24 hr warfarin 3 mg tablet 3 mg PO DAILY 01/18/23 10/27/23 alcohol swabs (Easy Touch Alcohol pad topical QID 04/19/23 10/13/23 Prep Pads) clonazepam 0.5 mg tablet 0.5 mg PO BEDTIME 04/19/23 10/13/23 docusate sodium 100 mg capsule 100 mg PO BID 04/19/23 10/13/23 solifenacin 5 mg tablet 5 mg PO QAM 10/17/23 Previous Rx's ?Medication ?Instructions ?Recorded insulin glargine 100 unit/mL (3 25 unit (0.25 mL) subcut DAILY #15 12/15/21 mL) subcutaneous pen (Lantus mL Solostar U-100 Insulin) bisacodyl 5 mg tablet,delayed 10 mg (2 x 5 mg) PO BEDTIME 2 days 10/17/23 release (Dulcolax (bisacodyl)) #4 tabs peg 3350-electrolytes 236 240 ml PO Q10M 1 day #4,000 mL 10/17/23 gram-22.74 gram-6.74 gram-5.86 gram solution (Golytely) cephalexin 500 mg capsule 500 mg PO QID #28 caps 11/10/23 Allergies Allergy/AdvReac Type Severity Reaction Status Date / Time shellfish derived Allergy Severe Hives Verified 11/09/23 22:46 aspirin [Aspirin] Allergy Mild Gastrointestinal Verified 11/09/23 22:46 Upset ibuprofen Allergy Unknown Unknown Verified 11/09/23 22:46 oxycodone [From PERCOCET] Allergy Unknown PALPITATION Verified 11/09/23 22:46 S Robitussin Cold Cough+ Chest Allergy Intermediate hives Uncoded 10/13/23 11:06 SEAFOOD Allergy Intermediate hives Uncoded 10/13/23 11:06 Review of Systems Constitutional: Constitutional: Denies body ache(s), Reports chills and Denies fever(s) Eyes: Eyes: Denies blurry vision ENT: Denies sore throat Cardiovascular: Cardiovascular: Denies chest pain and Denies dyspnea Respiratory: Respiratory: Denies cough and Denies dyspnea Musculoskeletal: Musculoskeletal: Reports arthralgias, Reports joint swelling and Reports limited range of motion Integumentary/Breasts: Skin/Breast: Reports erythema, Reports skin pain and Reports skin swelling PMFSH Past Medical History Medical History (Updated 11/10/23 @ 00:09 by Alvaro Mcdaniel) Multiple falls Acute on chronic respiratory failure with hypoxemia Weakness Pneumonia Urgency incontinence Menopause Well woman exam Current use of anticoagulant therapy Stenosis of carotid artery Diabetes type 2, controlled Sepsis Gastroenteritis Hypoxia Pneumonia Urinary incontinence Obesity due to excess calories Type 2 diabetes mellitus with diabetic polyneuropathy Senile cataract of left eye Essential hypertension Hyperlipemia Paroxysmal A-fib Anxiety disorder Hypothyroidism Coronary artery disease History of cerebrovascular accident Osteoarthritis Osteopenia Deep vein thrombosis Hearing loss Surgical History H/O colonoscopy H/O breast surgery S/P IVC filter History of bilateral tubal ligation Family History Family History Father Heart disease CVD (cardiovascular disease) Mother Diabetes Social History Social History Household Members: Family Housing: Apartment Do you presently have visiting nurse or other home services: Yes Alcohol intake: never Patient Tobacco Use Status: Never used Tobacco Smoked in Last 30 Days: No Use of substances other than those prescribed or required for medical reasons: No Advance Directives: Yes Advance Directives on File: Yes Advance Directives Date on File: 07/01/22 service: No Current occupational status: unemployed Sexual orientation: Straight/Heterosexual Gender identity: Female Physical Exam Vital Signs: Vital Signs: Last Vital Signs Temp 99.2 F 11/10/23 00:25 Pulse 84 11/10/23 00:25 Resp 20 11/10/23 00:25 BP 172/79 H 11/10/23 00:25 Pulse Ox 94 11/10/23 00:25 O2 Del Method Room Air 11/10/23 00:25 BMI result Body Mass Index 39.3 Const: General: healthy appearing, comfortable, no acute distress, alert and awake Nutritional Appearance: well nourished Orientation/consciousness: patient oriented x3 HEENT: Head: Yes normocephalic and Yes atraumatic Eyes: Eyelids: Yes eyelids normal Conjunctivae: conjunctivae normal Sclerae: sclerae normal Corneas: corneas normal Pupils: Equal, round and reactive pupils present EOM: EOMs intact bilaterally Resp: Effort & Inspection: normal respiratory effort, able to speak in complete sentences and not labored Skin: Other: Mild erythema with edema to the dorsal surface of the left hand. This appears to stop just distal to the left wrist. There are no open wounds or lesions General skin exam: elasticity normal Neuro: General: patient oriented x3 Cranial nerves: Yes Equal, round and reactive pupils present and Yes Bilaterally intact EOM present Cognition (Neuro): normal cognition Extrem: Other: There is no tenderness to the left wrist on the events or dorsal surface. The patient has full range of motion to the left wrist and all fingers of the left hand. Medications Administered Discontinued Medications Generic Name Dose Route Start Last Admin Trade Name Freq PRN Reason Stop Dose Admin Cephalexin HCl 500 mg 11/10/23 00:06 11/10/23 00:21 Cephalexin 500 Mg Capsule PO 11/10/23 00:07 500 mg ONCE ONE Administration Medical Decision Making Medical Decision Making [facility] Narrative: 88-year-old female presents for evaluation of redness, swelling and pain to the dorsal surface of left hand. There are no obvious wounds. The patient has good range of motion. The x-ray shows possible dorsal surface of left wrist fracture as there is a bony abnormality. The patient is nontender in this region, doubt fracture. We will treat with a volar splint. The patient's erythema and edema is most likely related to an inflammatory condition less likely be cellulitis, however the patient is a diabetic so I agreed to treat with a course of cephalexin. Return precautions were given. The patient's daughter expressed some concerns about the patient living alone. The patient has been living alone and doing fairly well for quite some time, however she fell 2 weeks ago and was seen in this ER. The patient's daughter is requesting VNA services. I offered to the patient stay in the ER overnight for case management and physical therapy evaluation. They would like to be discharged home. I put in a case management referral with the daughter's phone number to hopefully provide services for the patient Differential Diagnosis Differential Diagnoses: The differential diagnosis associated with the presentation includes Arthritis Cellulitis Dermatitis Gout Lab Data MDM Lab Attestation statement: I reviewed the patient's lab results. Mild leukocytosis to 10.9 K. No anemia. Normal platelet count. No electrolyte abnormalities. Patient is a known diabetic with a sugar of 271. No evidence of DKA 11/09/23 23:14 11/09/23 23:14 Labs: Lab Results 11/09/23 Range/Units 23:14 WBC 10.9 H (4.8-10.8) X10*3/uL RBC 3.99 L (4.20-5.50) X10*6/uL Hgb 12.1 (12.0-16.0) g/dl Hct 37.3 (37.0-47.0) % MCV 93.5 (80.0-98.0) fL MCH 30.3 (27.0-33.0) pg MCHC 32.4 (31.0-35.0) g/dl RDW 12.9 (11.0-16.0) % Plt Count 177 D (160-400) X10*3/uL MPV 10.8 (9.4-12.3) fL Immature Gran % (Auto) 0.4 (0.0-0.4) % Neut % (Auto) 67.0 (45-73) % Lymph % (Auto) 23.9 (20-40) % [place] % (Auto) 6.2 (2-11) % Eos % (Auto) 2.2 (0-4) % Baso % (Auto) 0.3 (0-2) % Lymph # (Auto) 2.6 (1.2-4.9) X10*3/uL [place] # (Auto) 0.7 (0.1-1.2) X10*3/uL Eos # (Auto) 0.2 (0.0-0.4) X10*3/uL Baso # (Auto) 0.0 (0.0-0.2) X10*3/uL Abs Immat Gran (auto) 0.04 H (0.00-0.03) X10*3/uL Absolute Neuts (auto) 7.3 (2.0-8.3) x10*3/uL Absolute Nucleated RBC 0.000 (0.0-0.012) X10*3/uL Nucleated RBC % (auto) 0.0 (0.0-0.2) /100WBC Sodium 140 (135-145) mmol/L Potassium 3.7 (3.3-5.1) mmol/L Chloride 102 (96-108) mmol/L Carbon Dioxide 29 (22-29) mmol/L Anion Gap 13 (12-20) BUN 15 (9-16) mg/dL Creatinine 1.04 (0.5-1.4) mg/dL Estim Creat Clear Calc 45.4 Estimated GFR 50 Random Glucose 271 H (60-115) mg/dL Calcium 9.8 (8.4-10.2) mg/dL Total Bilirubin 0.3 (0.0-1.0) mg/dL AST 15 (5-31) U/L ALT 13 (0-31) U/L Alkaline Phosphatase 117 (39-117) U/L Total Protein 7.5 (6.5-8.0) g/dL Albumin 3.7 (3.5-5.0) g/dL Independent Interpretation I performed an independent interpretation of an: Plain X-Ray (I appreciate the bony abnormality to the dorsal surface of the left wrist) Radiology Impression Discussion of test interpretation with radiology: I have reviewed the radiologist's reading. Radiologist Impression: IMPRESSION: 1. Deformity in the dorsal wrist on the lateral view, underlying fracture is not excluded. Correlate for point tenderness. 2. Moderate multifocal degenerative osteoarthritis. 3. Chondrocalcinosis. 4. Diffuse soft tissue swelling. Discharge Plan Discharge Clinical Impression: Hand pain, left Patient Disposition: Home, Self-Care Instructions: Arthralgia (ED) Additional Instructions: Your x-ray showed moderate arthritis. There was a slight deformity on the dorsal surface of the wrist Given that you are not tender in this area this is less likely to be a fracture and more likely to be arthritic changes Take cephalexin 4 times daily for 1 week Follow-up with your primary doctor, return for new or worsening symptoms Prescriptions: New cephalexin 500 mg capsule 500 mg PO QID Qty: 28 0RF No Action insulin lispro [Humalog KwikPen Insulin] 100 unit/mL insulin pen 8 unit subcut TIDAC Protocol: Insulin Correction Scale Less than or equal to 110 ---- Give (units): 0 111 to 150 Give (units): 0 151 to 200 Give (units): 2 201 to 250 Give (units): 4 251 to 300 Give (units): 6 301 to 350 Give (units): 8 Greater than 350 Give (units): 10 Call MD if Blood Glucose > : 350 metformin 500 mg tablet extended release 24 hr 500 mg PO BIDWM Trulicity 1.5 mg/0.5 mL pen injector 1.5 mg subcut DURON (DME) pen needle, diabetic 32 gauge x 5/32 needle See Rx Instructions .ROUTE .MEDSUPPLY Qty: 50 Rx Instructions: As directed cholecalciferol (vitamin D3) 50 mcg (2,000 unit) tablet 50 mcg PO DAILY sertraline 50 mg tablet 50 mg PO DAILY fluticasone propionate 50 mcg/actuation spray,suspension 2 spray intranasal DAILY omeprazole 20 mg capsule,delayed release(DR/EC) 20 mg PO BID@0630,1630 fluticasone propion-salmeterol 500-50 mcg/dose blister with device 1 inh inhalation BID levothyroxine 100 mcg tablet 100 mcg PO DAILY@0630 furosemide 40 mg tablet 40 mg PO QAM (DME) lancets [facility] [place] Rx Instructions .ROUTE .MEDSUPPLY Qty: 100 Rx Instructions: As directed (DME) blood sugar diagnostic Strip See Rx Instructions Not Applicable BID Qty: 10 Rx Instructions: As directed atorvastatin 20 mg tablet 20 mg PO BEDTIME metoprolol tartrate 25 mg tablet 12.5 mg PO BID Tab-A-Judith Multivitamin w-iron 15 mg iron- 400 mcg tablet 1 tab PO QAM Lantus Solostar U-100 Insulin 100 unit/mL (3 mL) insulin pen 25 unit subcut DAILY Qty: 15 5RF (DME) Sidestream Misc See Rx Instructions .ROUTE DIRECTED Qty: 1 Rx Instructions: As directed warfarin 3 mg tablet 3 mg PO DAILY Protocol: Dose Management Condition: Monday (Week One) Dose/Route: 4.5 mg Instruction: 1.5 x 3 mg tablets Condition: Monday Dose/Route: 3 mg Instruction: 1 x 3 mg tablet Condition: Monday Dose/Route: 4.5 mg Instruction: 1.5 x 3 mg tablets Condition: Monday Dose/Route: 4.5 mg Instruction: 1.5 x 3 mg tablets Condition: Dose/Route: 4.5 mg Instruction: 1.5 x 3 mg tablets Condition: Monday Dose/Route: 4.5 mg Instruction: 1.5 x 3 mg tablets Condition: Monday Dose/Route: 4.5 mg Instruction: 1.5 x 3 mg tablets Condition: Monday (Week Two) Dose/Route: 4.5 mg Instruction: 1.5 x 3 mg tablets Condition: Monday Dose/Route: 3 mg Instruction: 1 x 3 mg tablet Condition: Monday Dose/Route: 4.5 mg Instruction: 1.5 x 3 mg tablets Condition: Monday Dose/Route: 4.5 mg Instruction: 1.5 x 3 mg tablets Condition: Dose/Route: 4.5 mg Instruction: 1.5 x 3 mg tablets Condition: Monday Dose/Route: 4.5 mg Instruction: 1.5 x 3 mg tablets Condition: Monday Dose/Route: 4.5 mg Instruction: 1.5 x 3 mg tablets Protocol Text: Adjustment Start Date: Monday10/27/23 INR Value: 2.1 INR Date: 10/26/23 Recheck Date: 11/10/23 Rx Instructions: 3 mg orally, 4.5MG X 3 DAYS/ 3MG X 4 DAYS; docusate sodium 100 mg capsule 100 mg PO BID clonazepam 0.5 mg tablet 0.5 mg PO BEDTIME alcohol swabs [Easy Touch Alcohol Prep Pads] Pads, Medicated topical QID solifenacin 5 mg tablet 5 mg PO QAM peg 3350-electrolytes [Golytely] 236-22.74-6.74 -5.86 gram recon soln 240 ml PO Q10M 1 Days Qty: 4000 0RF Rx Instructions: until fecal effluent is clear; do not exceed a total volume of 2,000 mL bisacodyl [Dulcolax (bisacodyl)] 5 mg tablet,delayed release (DR/EC) 10 mg PO BEDTIME 2 Days Qty: 4 0RF Interventions: ED Discharge Assessment Last Done: 11/10/23 00:25 Print Language: French
[2023-11-10] MEDS: cephALEXin 500 MG CAPSULE PO (00:21)
[2023-11-10 00:25] VITALS: BP 172/79; PULSE 84; RESP 20; TEMP 37.3; O2SAT 94
== END 2023-11-10 00:46 | disposition home or self-care (01) ==
PROVIDERS: Emergency Provider Internal Medicine
DX: M79.642 Pain in left hand (principal); Z79.899 Other long term (current) drug therapy
CPT/HCPCS: 36415; 73130; 80053; 85025; 99283

== ENCOUNTER 2024-01-07 17:52 | Emergency (ER) | payer OTHER, SELFPAY ==
--- NOTE | ~2024-01-07 | XR_ITS ---
Examination: Right hand and right knee. Clinical indications: Pain. COMPARISON: Right knee 12/21/2021 and right hand 11/09/2023. TECHNIQUE: Right knee 2 views. Right hand 3 views. FINDINGS: Right knee: There is loss of tricompartment joint space with periarticular spurring. There is calcification of medial and lateral menisci. There is mild superior joint effusion. No visible acute fracture or dislocation seen. Right hand: There is loss of PIP and DIP joint spaces with mild periarticular spurring. There is no visible acute fracture or dislocation. The soft tissues are normal. There is calcification of triangle fibrocartilage. XR/XR hand RT 2V IMPRESSION: 1. Degenerative arthritic changes right knee and right hand. No visible acute fracture or dislocation seen. There is mild suprapatellar joint effusion. 2. There is chondrocalcinosis right knee menisci and triangular fibro-cartilage of the right wrist.
--- NOTE | ~2024-01-07 | XR_ITS ---
Examination: Right hand and right knee. Clinical indications: Pain. COMPARISON: Right knee 12/21/2021 and right hand 11/09/2023. TECHNIQUE: Right knee 2 views. Right hand 3 views. FINDINGS: Right knee: There is loss of tricompartment joint space with periarticular spurring. There is calcification of medial and lateral menisci. There is mild superior joint effusion. No visible acute fracture or dislocation seen. Right hand: There is loss of PIP and DIP joint spaces with mild periarticular spurring. There is no visible acute fracture or dislocation. The soft tissues are normal. There is calcification of triangle fibrocartilage. XR/XR knee RT 2V IMPRESSION: 1. Degenerative arthritic changes right knee and right hand. No visible acute fracture or dislocation seen. There is mild suprapatellar joint effusion. 2. There is chondrocalcinosis right knee menisci and triangular fibro-cartilage of the right wrist.
[2024-01-07 18:07] VITALS: BP 131/56; PULSE 80; RESP 16; TEMP 36.3; O2SAT 93; BMI 38.3
[2024-01-07 18:45] LABS: MANUAL DIFF FLAG NO
[2024-01-07 18:47] LABS: Basophils Percent Auto 0.3 % (0-2); Eosinophils Absolute Auto 0.2 X10*3/uL (0.0-0.4); Hematocrit 36.6 % (37.0-47.0); Hemoglobin 12.3 g/dl (12.0-16.0); Imm Gran Abs Auto 0.04 X10*3/uL (0.00-0.03); Imm Gran Pct Auto 0.4 % (0.0-0.4); Lymphocytes Absolute Auto 2.8 X10*3/uL (1.2-4.9); Lymphocytes Percent Auto 27.6 % (20-40); Mean Corpuscular HGB Conc 33.6 g/dl (31.0-35.0); Mean Corpuscular Hemoglobin 31.8 pg (27.0-33.0); Mean Corpuscular Volume 94.6 fL (80.0-98.0); Mean Platelet Volume 10.9 fL (9.4-12.3); Monocytes Absolute Auto 0.8 X10*3/uL (0.1-1.2); Monocytes Percent Auto 7.4 % (2-11); Neutrophils Absolute Auto 6.3 x10*3/uL (2.0-8.3); Neutrophils Percent Auto 62.3 % (45-73); Platelet Count 152 X10*3/uL (160-400); Red Blood Count 3.87 X10*6/uL (4.20-5.50); Red Cell Distribution Width 13.8 % (11.0-16.0); White Blood Count 10.1 X10*3/uL (4.8-10.8)
[2024-01-07 19:06] LABS: Alanine Aminotransferase 12 U/L (0-31); Albumin Level 3.8 g/dL (3.5-5.0); Alkaline Phosphatase 101 U/L (39-117); Anion Gap 17 (12-20); Aspartate Amino Transferase 16 U/L (5-31); Bilirubin Total 0.7 mg/dL (0.0-1.0); Blood Urea Nitrogen 16 mg/dL (9-16); Calcium 9.9 mg/dL (8.4-10.2); Carbon Dioxide 27 mmol/L (22-29); Chloride 101 mmol/L (96-108); Estimated Glomerular Filt Rate 46; Glucose Random 180 mg/dL (60-115); Potassium 3.6 mmol/L (3.3-5.1); Sodium 141 mmol/L (135-145); Total Protein 7.6 g/dL (6.5-8.0)
[2024-01-07 23:05] VITALS: BP 149/59; PULSE 77; RESP 18; TEMP 36.8; O2SAT 93
--- NOTE | 2024-01-07 23:06 | ED.GENADULT ---
HPI - General Adult General Chief complaint: General Medical Stated complaint: headache, hand pain, knee pain, multiple complaint Time Seen by Provider: 01/07/24 23:03 Source: patient and family Mode of arrival: EMS Limitations: no limitations History of Present Illness ED Provider: sree RAYMUNDO narrative: Per family patient has been having pain in right wrist area for last 3 days also have pain right knee also patient had abnormal eye exam on 12/25 daughter does not know exactly what patient denied any vision loss this time Related Data Home Medications ?Medication ?Instructions ?Recorded ?Confirmed atorvastatin 20 mg tablet 20 mg PO BEDTIME 05/21/20 10/13/23 blood sugar diagnostic #10 ea 05/21/20 10/13/23 cholecalciferol (vitamin D3) 50 50 mcg PO DAILY 05/21/20 10/13/23 mcg (2,000 unit) tablet fluticasone 500 mcg-salmeterol 50 1 inh inhalation BID 05/21/20 10/13/23 mcg/dose blistr powdr for inhalation fluticasone propionate 50 2 spray intranasal DAILY 05/21/20 10/13/23 mcg/actuation nasal spray,suspension furosemide 40 mg tablet 40 mg PO QAM 05/21/20 10/13/23 lancets #100 ea 05/21/20 10/13/23 levothyroxine 100 mcg tablet 100 mcg PO DAILY@0630 05/21/20 10/13/23 omeprazole 20 mg capsule,delayed 20 mg PO BID@0630,1630 05/21/20 10/13/23 release pen needle, diabetic 32 gauge x #50 ea 05/21/20 10/13/23 sertraline 50 mg tablet 50 mg PO DAILY 05/21/20 10/13/23 metoprolol tartrate 25 mg tablet 12.5 mg PO BID 12/17/20 10/13/23 nebulizers (Sidestream misc) #1 ea 05/14/21 10/13/23 multivitamin-iron sulfate 15 1 tab PO QAM 12/15/21 10/13/23 mg-folic acid 400 mcg tablet (Tab-A-Judith Multivitamin w-iron) insulin lispro 100 unit/mL 8 unit subcut TIDAC 06/26/22 10/13/23 subcutaneous pen (Humalog KwikPen (U-100) Insulin) dulaglutide 1.5 mg/0.5 mL 1.5 mg subcut DURON 09/20/22 10/13/23 subcutaneous pen injector (Trulicity) metformin 500 mg tablet,extended 500 mg PO BIDWM 09/20/22 10/13/23 release 24 hr warfarin 3 mg tablet 3 mg PO DAILY 01/18/23 10/27/23 alcohol swabs (Easy Touch Alcohol pad topical QID 04/19/23 10/13/23 Prep Pads) clonazepam 0.5 mg tablet 0.5 mg PO BEDTIME 04/19/23 10/13/23 docusate sodium 100 mg capsule 100 mg PO BID 04/19/23 10/13/23 solifenacin 5 mg tablet 5 mg PO QAM 10/17/23 Previous Rx's ?Medication ?Instructions ?Recorded insulin glargine 100 unit/mL (3 25 unit (0.25 mL) subcut DAILY #15 12/15/21 mL) subcutaneous pen (Lantus mL Solostar U-100 Insulin) bisacodyl 5 mg tablet,delayed 10 mg (2 x 5 mg) PO BEDTIME 2 days 10/17/23 release (Dulcolax (bisacodyl)) #4 tabs peg 3350-electrolytes 236 240 ml PO Q10M 1 day #4,000 mL 10/17/23 gram-22.74 gram-6.74 gram-5.86 gram solution (Golytely) cephalexin 500 mg capsule 500 mg PO QID #28 caps 11/10/23 prednisone 20 mg tablet 40 mg (2 x 20 mg) PO DAILY #10 tabs 01/08/24 tramadol 50 mg tablet 50 mg PO Q6H PRN pain #20 tabs 01/08/24 Allergies Allergy/AdvReac Type Severity Reaction Status Date / Time shellfish derived Allergy Severe Hives Verified 01/07/24 18:14 aspirin [Aspirin] Allergy Mild Gastrointestinal Verified 01/07/24 18:14 Upset ibuprofen Allergy Unknown Unknown Verified 01/07/24 18:14 oxycodone [From PERCOCET] Allergy Unknown PALPITATION Verified 01/07/24 18:14 S Robitussin Cold Cough+ Chest Allergy Intermediate hives Uncoded 10/13/23 11:06 SEAFOOD Allergy Intermediate hives Uncoded 10/13/23 11:06 Review of Systems Review of Systems: Yes all other systems are reviewed and are negative [facility] Past Medical History Medical History Multiple falls Acute on chronic respiratory failure with hypoxemia Weakness Pneumonia Urgency incontinence Menopause Well woman exam Current use of anticoagulant therapy Stenosis of carotid artery Diabetes type 2, controlled Sepsis Gastroenteritis Hypoxia Pneumonia Urinary incontinence Obesity due to excess calories Type 2 diabetes mellitus with diabetic polyneuropathy Senile cataract of left eye Essential hypertension Hyperlipemia Paroxysmal A-fib Anxiety disorder Hypothyroidism Coronary artery disease History of cerebrovascular accident Osteoarthritis Osteopenia Deep vein thrombosis Hearing loss Surgical History H/O colonoscopy H/O breast surgery S/P IVC filter History of bilateral tubal ligation Family History Family History Father Heart disease CVD (cardiovascular disease) Mother Diabetes Social History Social History Household Members: Family Housing: Apartment Do you presently have visiting nurse or other home services: Yes Alcohol intake: never Patient Tobacco Use Status: Never used Tobacco Advance Directives: Yes Advance Directives on File: Yes Advance Directives Date on File: 07/01/22 Do you have a plan to hurt others: No Plan service: No Current occupational status: unemployed Sexual orientation: Straight/Heterosexual Gender identity: Female Physical Exam ED Vital Signs: Vital Signs - 24 hr 01/07/24 18:07 01/07/24 23:05 Temperature 97.4 F 98.3 F Pulse Rate 80 77 Respiratory Rate 16 18 Blood Pressure 131/56 L 149/59 H Pulse Oximetry 93 93 Oxygen Delivery Method Room Air Room Air BMI result Body Mass Index 38.3 Appearance: Alert. Oriented X3. No acute distress. Eyes: PERRLA, No Nystagmus ENT: Pharynx normal. Oral Mucosa moist Neck: Normal inspection. Neck supple. CVS: Normal heart rate and rhythm. Pulses normal. Respiratory: No respiratory distress. Equal air entry bilateral, no wheezing/rales/rhonchi Abdomen: Soft and nontender. Bowel sounds are present, no mass palpable, no CVA tenderness Skin: Skin warm and dry. Normal skin color. Normal skin turgor. Extremities: No lower extremity edema. No calf tenderness local warmth and tenderness right wrist, right knee soft tissue swelling with slight effusion no erythema no significant tenderness Neuro: Oriented X 3. No motor deficit. No sensory deficit.No cerebellar signs , cranial nerves II-XII intact Medications Administered Discontinued Medications Generic Name Dose Route Start Last Admin Trade Name Freq PRN Reason Stop Dose Admin Prednisone 40 mg 01/07/24 23:32 01/07/24 23:56 Prednisone 20 Mg Tablet PO 01/07/24 23:33 40 mg ONCE ONE Administration Medical Decision Making Medical Decision Making [facility] Narrative: Patient's history of arteritis in the past likely gouty arthritis came with increased pain of the right wrist in the right knee right knee seems to be warm no signs of infection likely has a gouty arthritis will discharge patient home on prednisone x-ray negative Lab Data [facility] Lab Attestation statement: I reviewed the patient's lab results. 01/07/24 18:41 01/07/24 18:41 Labs: Lab Results 01/07/24 01/07/24 Range/Units 18:41 23:32 WBC 10.1 (4.8-10.8) X10*3/uL RBC 3.87 L (4.20-5.50) X10*6/uL Hgb 12.3 (12.0-16.0) g/dl Hct 36.6 L (37.0-47.0) % MCV 94.6 (80.0-98.0) fL MCH 31.8 (27.0-33.0) pg MCHC 33.6 (31.0-35.0) g/dl RDW 13.8 (11.0-16.0) % Plt Count 152 L (160-400) X10*3/uL MPV 10.9 (9.4-12.3) fL Immature Gran % (Auto) 0.4 (0.0-0.4) % Neut % (Auto) 62.3 (45-73) % Lymph % (Auto) 27.6 (20-40) % [place] % (Auto) 7.4 (2-11) % Eos % (Auto) 2.0 (0-4) % Baso % (Auto) 0.3 (0-2) % Lymph # (Auto) 2.8 (1.2-4.9) X10*3/uL [place] # (Auto) 0.8 (0.1-1.2) X10*3/uL Eos # (Auto) 0.2 (0.0-0.4) X10*3/uL Baso # (Auto) 0.0 (0.0-0.2) X10*3/uL Abs Immat Gran (auto) 0.04 H (0.00-0.03) X10*3/uL Absolute Neuts (auto) 6.3 (2.0-8.3) x10*3/uL Absolute Nucleated RBC 0.000 (0.0-0.012) X10*3/uL Nucleated RBC % (auto) 0.0 (0.0-0.2) /100WBC Sodium 141 (135-145) mmol/L Potassium 3.6 (3.3-5.1) mmol/L Chloride 101 (96-108) mmol/L Carbon Dioxide 27 (22-29) mmol/L Anion Gap 17 (12-20) BUN 16 (9-16) mg/dL Creatinine 1.11 (0.5-1.4) mg/dL Estim Creat Clear Calc 42.0 Estimated GFR 46 Random Glucose 180 H (60-115) mg/dL Uric Acid 5.4 (2.4-5.7) mg/dL Calcium 9.9 (8.4-10.2) mg/dL Total Bilirubin 0.7 (0.0-1.0) mg/dL AST 16 (5-31) U/L ALT 12 (0-31) U/L Alkaline Phosphatase 101 (39-117) U/L C-Reactive Protein 6.97 H (< or = 0.50) mg/dL Total Protein 7.6 (6.5-8.0) g/dL Albumin 3.8 (3.5-5.0) g/dL Urine Color Dark Yellow Urine Appearance Clear Urine pH 5.5 (5.0-9.0) Ur Specific [place] 1.020 (1.005-1.025) Urine Protein 30 (1+) H (Neg-Trace) mg/dL Urine Glucose (UA) Negative (Negative) mg/dL Urine Ketones Negative (Negative) mg/dL Urine Blood Negative (Negative) Urine Nitrite Negative (Negative) Ur Leukocyte Esterase Negative (Negative) Urine RBC 0-2 (0-2) /HPF Urine WBC 0-5 (0-5) /HPF Ur Squamous Epith Cells 3-5 (0-2) /HPF Urine Bacteria None Seen (None Seen) Hyaline Casts 0-2 (0-2) /LPF Independent Interpretation I performed an independent interpretation of an: Plain X-Ray Radiology Impression Discussion of test interpretation with radiology: I have reviewed the radiologist's reading. Discharge Plan Discharge Clinical Impression: Gouty arthritis of right hand Patient Disposition: Home, Self-Care Instructions: Gout (ED) Additional Instructions: Likely you have gouty arthritis of the right wrist and the knee Take prednisone as prescribed Ibuprofen for pain Prescriptions: New prednisone 20 mg tablet 40 mg PO DAILY Qty: 10 0RF tramadol 50 mg tablet 50 mg PO Q6H PRN (Reason: pain) Qty: 20 0RF No Action insulin lispro [Humalog KwikPen Insulin] 100 unit/mL insulin pen 8 unit subcut TIDAC Protocol: Insulin Correction Scale Less than or equal to 110 ---- Give (units): 0 111 to 150 Give (units): 0 151 to 200 Give (units): 2 201 to 250 Give (units): 4 251 to 300 Give (units): 6 301 to 350 Give (units): 8 Greater than 350 Give (units): 10 Call MD if Blood Glucose > : 350 metformin 500 mg tablet extended release 24 hr 500 mg PO BIDWM Trulicity 1.5 mg/0.5 mL pen injector 1.5 mg subcut DURON cephalexin 500 mg capsule 500 mg PO QID Qty: 28 0RF (DME) pen needle, diabetic 32 gauge x 5/32 needle See Rx Instructions .ROUTE .MEDSUPPLY Qty: 50 Rx Instructions: As directed cholecalciferol (vitamin D3) 50 mcg (2,000 unit) tablet 50 mcg PO DAILY sertraline 50 mg tablet 50 mg PO DAILY fluticasone propionate 50 mcg/actuation spray,suspension 2 spray intranasal DAILY omeprazole 20 mg capsule,delayed release(DR/EC) 20 mg PO BID@0630,1630 fluticasone propion-salmeterol 500-50 mcg/dose blister with device 1 inh inhalation BID levothyroxine 100 mcg tablet 100 mcg PO DAILY@0630 furosemide 40 mg tablet 40 mg PO QAM (DME) lancets Misc See Rx Instructions .ROUTE .MEDSUPPLY Qty: 100 Rx Instructions: As directed (DME) blood sugar diagnostic Strip See Rx Instructions Not Applicable BID Qty: 10 Rx Instructions: As directed atorvastatin 20 mg tablet 20 mg PO BEDTIME metoprolol tartrate 25 mg tablet 12.5 mg PO BID Tab-A-Judith Multivitamin w-iron 15 mg iron- 400 mcg tablet 1 tab PO QAM Lantus Solostar U-100 Insulin 100 unit/mL (3 mL) insulin pen 25 unit subcut DAILY Qty: 15 5RF (DME) Sidestream Misc See Rx Instructions .ROUTE DIRECTED Qty: 1 Rx Instructions: As directed warfarin 3 mg tablet 3 mg PO DAILY Protocol: Dose Management Condition: Monday (Week One) Dose/Route: 4.5 mg Instruction: 1.5 x 3 mg tablets Condition: Monday Dose/Route: 3 mg Instruction: 1 x 3 mg tablet Condition: Monday Dose/Route: 4.5 mg Instruction: 1.5 x 3 mg tablets Condition: Monday Dose/Route: 4.5 mg Instruction: 1.5 x 3 mg tablets Condition: Dose/Route: 4.5 mg Instruction: 1.5 x 3 mg tablets Condition: Monday Dose/Route: 4.5 mg Instruction: 1.5 x 3 mg tablets Condition: Monday Dose/Route: 4.5 mg Instruction: 1.5 x 3 mg tablets Condition: Monday (Week Two) Dose/Route: 4.5 mg Instruction: 1.5 x 3 mg tablets Condition: Monday Dose/Route: 3 mg Instruction: 1 x 3 mg tablet Condition: Monday Dose/Route: 4.5 mg Instruction: 1.5 x 3 mg tablets Condition: Monday Dose/Route: 4.5 mg Instruction: 1.5 x 3 mg tablets Condition: Dose/Route: 4.5 mg Instruction: 1.5 x 3 mg tablets Condition: Monday Dose/Route: 4.5 mg Instruction: 1.5 x 3 mg tablets Condition: Monday Dose/Route: 4.5 mg Instruction: 1.5 x 3 mg tablets Protocol Text: Adjustment Start Date: Monday10/27/23 INR Value: 2.1 INR Date: 10/26/23 Recheck Date: 11/10/23 Rx Instructions: 3 mg orally, 4.5MG X 3 DAYS/ 3MG X 4 DAYS; docusate sodium 100 mg capsule 100 mg PO BID clonazepam 0.5 mg tablet 0.5 mg PO BEDTIME alcohol swabs [Easy Touch Alcohol Prep Pads] Pads, Medicated topical QID solifenacin 5 mg tablet 5 mg PO QAM peg 3350-electrolytes [Golytely] 236-22.74-6.74 -5.86 gram recon soln 240 ml PO Q10M 1 Days Qty: 4000 0RF Rx Instructions: until fecal effluent is clear; do not exceed a total volume of 2,000 mL bisacodyl [Dulcolax (bisacodyl)] 5 mg tablet,delayed release (DR/EC) 10 mg PO BEDTIME 2 Days Qty: 4 0RF Print Language: Syriac
--- NOTE | 2024-01-07 23:29 | MHC.EDTECH ---
Patient brought back from the waiting room, patient ambulated with 2 assist with a slow and steady gait to the bathroom,patient urinated 400MLS of yellow urine,sample obtained and sent to lab.patient was changed into hospital attire and vitals taken,daughter at bedside and call alvarenga in reach
[2024-01-07 23:47] LABS: Appearance Urine Clear; Color Urine Dark Yellow; Glucose Urine UA Negative (Negative); Leukocyte Esterase Urine Negative (Negative); Nitrite Urine Negative (Negative); PH 5.5 (5.0-9.0); UMIC TRIGGER UACC YES; Urine Blood Negative (Negative); Urine Ketones Negative (Negative); Urine Protein 30 (1+) mg/dL (Neg-Trace)
[2024-01-07 23:49] LABS: Bacteria Urine None Seen (None Seen); Hyaline Casts Urine 0-2 /LPF (0-2); RBC Urine 0-2 /HPF (0-2); WBC Urine 0-5 /HPF (0-5)
[2024-01-07 23:55] LABS: C Reactive Protein 6.97 mg/dL (< or = 0.50)
[2024-01-07] MEDS: predniSONE 20 MG TABLET 40 MG PO (23:56)
[2024-01-08 01:37] LABS: Uric Acid 5.4 mg/dL (2.4-5.7)
[2024-01-08 01:59] VITALS: BP 153/71; PULSE 86; RESP 18; TEMP 36.9; O2SAT 93
[2024-01-08 02:20] VITALS: BP 153/71; PULSE 86; RESP 18; TEMP 36.9; O2SAT 93
== END 2024-01-08 02:20 | disposition home or self-care (01) ==
PROVIDERS: Emergency Provider Internal Medicine
DX: M10.9 Gout, unspecified (principal); E11.9 Type 2 diabetes mellitus without complications; I48.0 Paroxysmal atrial fibrillation; Z86.718 Personal history of other venous thrombosis and embolism; Z79.01 Long term (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
CPT/HCPCS: 36415; 73120; 73560; 80053; 81001; 84550; 85025; 86140; 99283; 99284

== ENCOUNTER 2024-02-09 10:22 | Inpatient (IN) | payer OTHER, SELFPAY ==
[2024-02-09] VITALS (7 sets, daily range): BP systolic 135–142; BP diastolic 60–76; PULSE 84–96; RESP 16–20; TEMP 36–36.7; O2SAT 92–99; BMI 43.1; BMI 42.3
--- NOTE | ~2024-02-09 | XR_ITS ---
EXAMINATION: XR CHEST CLINICAL INFORMATION: Chest pain. COMPARISON: Chest radiograph 10/26/2023. TECHNIQUE: Frontal view of the chest was obtained. FINDINGS: New focal consolidative airspace opacities in the left lower lung with associated small left pleural effusion. No pneumothorax. Unchanged enlargement of the cardiomediastinal silhouette. Chronic deformity of the right proximal humerus. Multifocal degenerative changes. XR/XR chest 1V IMPRESSION: New focal consolidative airspace opacities in the left lower lung with associated small left pleural effusion. Findings are concerning for pneumonia in the appropriate clinical context. Recommend short-term follow-up to ensure appropriate resolution.
--- NOTE | 2024-02-09 10:26 | ECG_ITS ---
Test Reason : cp Blood Pressure : / mmHG Vent. Rate : 097 BPM Atrial Rate : 000 BPM P-R Int : 000 ms QRS Dur : 086 ms QT Int : 344 ms P-R-T Axes : 000 046 226 degrees QTc Int : 436 ms Accelerated Junctional rhythm Nonspecific ST and T wave abnormality Abnormal ECG When compared with ECG of 26-OCT-2023 18:26, Junctional rhythm has replaced Sinus rhythm Nonspecific T wave abnormality now evident in Inferior leads Referred By: Mary Anne Chavarria Electronically Signed By:Jon Blancas
--- NOTE | 2024-02-09 10:39 | PC.NURSE ---
Pt. is on fence rider at this time. EKG is done and reviewed by provider.
[2024-02-09 11:00] LABS: MANUAL DIFF FLAG NO
[2024-02-09 11:01] LABS: Basophils Percent Auto 0.5 % (0-2); Eosinophils Absolute Auto 0.3 X10*3/uL (0.0-0.4); Eosinophils Percent Auto 3.1 % (0-4); Hematocrit 35.4 % (37.0-47.0); Hemoglobin 11.1 g/dl (12.0-16.0); Imm Gran Abs Auto 0.03 X10*3/uL (0.00-0.03); Imm Gran Pct Auto 0.4 % (0.0-0.4); Lymphocytes Absolute Auto 1.9 X10*3/uL (1.2-4.9); Lymphocytes Percent Auto 23.4 % (20-40); Mean Corpuscular HGB Conc 31.4 g/dl (31.0-35.0); Mean Corpuscular Hemoglobin 29.7 pg (27.0-33.0); Mean Corpuscular Volume 94.7 fL (80.0-98.0); Mean Platelet Volume 10.3 fL (9.4-12.3); Monocytes Absolute Auto 0.6 X10*3/uL (0.1-1.2); Neutrophils Absolute Auto 5.4 x10*3/uL (2.0-8.3); Neutrophils Percent Auto 65.6 % (45-73); Platelet Count 198 X10*3/uL (160-400); Red Blood Count 3.74 X10*6/uL (4.20-5.50); Red Cell Distribution Width 14.1 % (11.0-16.0); White Blood Count 8.3 X10*3/uL (4.8-10.8)
[2024-02-09 11:07] LABS: INTERNATIONAL NORM RATIO 2.5 (0.9-1.1); Prothrombin Time 30.1 SEC (11.1-13.3)
--- NOTE | 2024-02-09 11:17 | ED.CHESTPAIN ---
HPI - Chest Pain General Chief Complaint: Chest Pain Stated Complaint: CP Source: patient, EMS, old records reviewed and aerial photograph interpreter Mode of arrival: EMS Limitations: no limitations History of Present Illness ED Provider: ADILENE HPI narrative: 88 yo female with PMH of DVT on coumadin, HTN, HLD, GERD, Afib, DM2, hypothyroidism, HLD, edema who reports 3 days of dyspnea and notes her legs appear more swollen. She states she is taking her medications and seems to be peeing a lot. No cough, fevers, she denies chest pain to me and aerial photograph interpreter. She is using 2 pillows at night. She is using PRN o2 at home. complaint: other (dyspnea) Onset (ago): day(s) (3) Timing of current episode: constant Prior episodes: Yes Onset: during rest and during exertion Pain radiation: none Severity: moderate Quality: tightness Relieving factors: rest (O2) Exacerbating factors: exertion Context: other (increased edema) Associated symptoms: dyspnea and leg swelling Treatment prior to arrival: none Related Data Home Medications ?Medication ?Instructions ?Recorded ?Confirmed atorvastatin 20 mg tablet 20 mg PO BEDTIME 05/21/20 10/13/23 blood sugar diagnostic #10 ea 05/21/20 10/13/23 cholecalciferol (vitamin D3) 50 50 mcg PO DAILY 05/21/20 10/13/23 mcg (2,000 unit) tablet fluticasone 500 mcg-salmeterol 50 1 inh inhalation BID 05/21/20 10/13/23 mcg/dose blistr powdr for inhalation fluticasone propionate 50 2 spray intranasal DAILY 05/21/20 10/13/23 mcg/actuation nasal spray,suspension furosemide 40 mg tablet 40 mg PO QAM 05/21/20 10/13/23 lancets #100 ea 05/21/20 10/13/23 levothyroxine 100 mcg tablet 100 mcg PO DAILY@0630 05/21/20 10/13/23 omeprazole 20 mg capsule,delayed 20 mg PO BID@0630,1630 05/21/20 10/13/23 release pen needle, diabetic 32 gauge x #50 ea 05/21/20 10/13/23 sertraline 50 mg tablet 50 mg PO DAILY 05/21/20 10/13/23 metoprolol tartrate 25 mg tablet 12.5 mg PO BID 12/17/20 10/13/23 nebulizers (Sidestream misc) #1 ea 05/14/21 10/13/23 multivitamin-iron sulfate 15 1 tab PO QAM 12/15/21 10/13/23 mg-folic acid 400 mcg tablet (Tab-A-Judith Multivitamin w-iron) insulin lispro 100 unit/mL 8 unit subcut TIDAC 06/26/22 10/13/23 subcutaneous pen (Humalog KwikPen (U-100) Insulin) dulaglutide 1.5 mg/0.5 mL 1.5 mg subcut DURON 09/20/22 10/13/23 subcutaneous pen injector (Trulicity) metformin 500 mg tablet,extended 500 mg PO BIDWM 09/20/22 10/13/23 release 24 hr warfarin 3 mg tablet 3 mg PO DAILY 01/18/23 10/27/23 alcohol swabs (Easy Touch Alcohol pad topical QID 04/19/23 10/13/23 Prep Pads) clonazepam 0.5 mg tablet 0.5 mg PO BEDTIME 04/19/23 10/13/23 docusate sodium 100 mg capsule 100 mg PO BID 04/19/23 10/13/23 solifenacin 5 mg tablet 5 mg PO QAM 10/17/23 Previous Rx's ?Medication ?Instructions ?Recorded insulin glargine 100 unit/mL (3 25 unit (0.25 mL) subcut DAILY #15 12/15/21 mL) subcutaneous pen (Lantus mL Solostar U-100 Insulin) bisacodyl 5 mg tablet,delayed 10 mg (2 x 5 mg) PO BEDTIME 2 days 10/17/23 release (Dulcolax (bisacodyl)) #4 tabs peg 3350-electrolytes 236 240 ml PO Q10M 1 day #4,000 mL 10/17/23 gram-22.74 gram-6.74 gram-5.86 gram solution (Golytely) cephalexin 500 mg capsule 500 mg PO QID #28 caps 11/10/23 prednisone 20 mg tablet 40 mg (2 x 20 mg) PO DAILY #10 tabs 01/08/24 tramadol 50 mg tablet 50 mg PO Q6H PRN pain #20 tabs 01/08/24 Allergies Allergy/AdvReac Type Severity Reaction Status Date / Time shellfish derived Allergy Severe Hives Verified 02/09/24 10:39 aspirin [Aspirin] Allergy Mild Gastrointestinal Verified 02/09/24 10:39 Upset ibuprofen Allergy Unknown Unknown Verified 02/09/24 10:39 oxycodone [From PERCOCET] Allergy Unknown PALPITATION Verified 02/09/24 10:39 S Robitussin Cold Cough+ Chest Allergy Intermediate hives Uncoded 02/09/24 10:39 SEAFOOD Allergy Intermediate hives Uncoded 02/09/24 10:39 Review of Systems Review of Systems: Constitutional : No Fever, No Chills ENT/Mouth : No sore throat, No Rhinorrhea, No Swallowing Difficulty Eyes: No Eye Pain, No Swelling, No Redness Cardiovascular : No Chest Pain, positive SOB, pos Orthopnea, positive Edema Respiratory : No Cough, No Sputum, No Wheezing, positive dyspnea Gastrointestinal : No Nausea, No Vomiting, No Diarrhea, No abdominal Pain, No Hematochezia, No Melena Genitourinary : No Dysuria, No Urinary Frequency, No Hematuria Musculoskeletal : No joint pain, No Myalgias Skin : No Skin Lesions, No rash Neuro : No Weakness, No Numbness, No Dizziness, No Headache Psych : No Anxiety/Panic, No Depression All other systems reviewed and are negative PMFSH Past Medical History Medical History Multiple falls Acute on chronic respiratory failure with hypoxemia Weakness Pneumonia Urgency incontinence Menopause Well woman exam Current use of anticoagulant therapy Stenosis of carotid artery Diabetes type 2, controlled Sepsis Gastroenteritis Hypoxia Pneumonia Urinary incontinence Obesity due to excess calories Type 2 diabetes mellitus with diabetic polyneuropathy Senile cataract of left eye Essential hypertension Hyperlipemia Paroxysmal A-fib Anxiety disorder Hypothyroidism Coronary artery disease History of cerebrovascular accident Osteoarthritis Osteopenia Deep vein thrombosis Hearing loss Surgical History H/O colonoscopy H/O breast surgery S/P IVC filter History of bilateral tubal ligation Family History Family History Father Heart disease CVD (cardiovascular disease) Mother Diabetes Social History Social History Household Members: Family Housing: Apartment Do you presently have visiting nurse or other home services: Yes Alcohol intake: never Patient Tobacco Use Status: Never used Tobacco Smoked in Last 30 Days: No Use of substances other than those prescribed or required for medical reasons: No Advance Directives: Yes Advance Directives on File: Yes Advance Directives Date on File: 07/01/22 Do you have a plan to hurt others: No Plan service: No Current occupational status: unemployed Sexual orientation: Straight/Heterosexual Gender identity: Female Physical Exam Vital Signs: Vital Signs: Last Vital Signs Temp 97.7 F 02/09/24 12:08 Pulse 86 02/09/24 12:08 Resp 16 02/09/24 12:08 BP 140/70 H 02/09/24 12:08 Pulse Ox 98 02/09/24 12:08 O2 Del Method Room Air 02/09/24 12:08 O2 Flow Rate 2 02/09/24 11:46 Oxygen Flow Rate 2 02/09/24 10:30 BMI result Body Mass Index 43.1 Appearance: Alert. Oriented X3. No acute distress. Eyes: Pupils equal, round and reactive to light. ENT: Pharynx normal. Neck: Normal inspection. Neck supple. CVS: Normal heart rate and rhythm. Pulses normal. Respiratory: Mild respiratory distress tachypnea. Breath sounds rales both bases Abdomen: Soft and nontender. Skin: Skin warm and dry. Normal skin color. Normal skin turgor. Extremities: 2+ pitting bilateral lower extremity edema. No calf ttp Neuro: Oriented X 3. No motor deficit. No sensory deficit. Course Course Course Narrative: no wbc count no fevers suspect CHF not pneumonia - she has no fevers, no wbc count no left shift and does not report a cough Medications Administered Discontinued Medications Generic Name Dose Route Start Last Admin Trade Name Freq PRN Reason Stop Dose Admin Furosemide 40 mg 02/09/24 11:24 02/09/24 11:47 Furosemide 40 Mg/4 Ml Vial IVPUSH 02/09/24 11:25 40 mg ONCE ONE Administration Protocol Medical Decision Making Medical Decision Making MDM Narrative: 88 yo female with PMH of DVT on coumadin, HTN, HLD, GERD, Afib, DM2, hypothyroidism, HLD, edema here with leg swelling rales increased work of breathing - at this time suspect CHF she has no fever, cough, no chest pain - IV lasix ordered she is tachypneic on exam will start on IV lasix. Differential Diagnosis Differential Diagnoses: The differential diagnosis associated with the presentation includes CHF, URI Admission/Observation Consideration of admission/observation: Escalation of care including admission/observation considered will admit for further diuresis Consult Healthcare Provider Management of the patient was discussed with: Hospitalist (will admit) Lab Data MDM Lab Attestation statement: I reviewed the patient's lab results. 02/09/24 10:53 02/09/24 10:53 Labs: Lab Results 02/09/24 02/09/24 Range/Units 10:53 13:13 WBC 8.3 (4.8-10.8) X10*3/uL RBC 3.74 L (4.20-5.50) X10*6/uL Hgb 11.1 L (12.0-16.0) g/dl Hct 35.4 L (37.0-47.0) % MCV 94.7 (80.0-98.0) fL MCH 29.7 (27.0-33.0) pg MCHC 31.4 (31.0-35.0) g/dl RDW 14.1 (11.0-16.0) % Plt Count 198 D (160-400) X10*3/uL MPV 10.3 (9.4-12.3) fL Immature Gran % (Auto) 0.4 (0.0-0.4) % Neut % (Auto) 65.6 (45-73) % Lymph % (Auto) 23.4 (20-40) % [place] % (Auto) 7.0 (2-11) % Eos % (Auto) 3.1 (0-4) % Baso % (Auto) 0.5 (0-2) % Lymph # (Auto) 1.9 (1.2-4.9) X10*3/uL [place] # (Auto) 0.6 (0.1-1.2) X10*3/uL Eos # (Auto) 0.3 (0.0-0.4) X10*3/uL Baso # (Auto) 0.0 (0.0-0.2) X10*3/uL Abs Immat Gran (auto) 0.03 (0.00-0.03) X10*3/uL Absolute Neuts (auto) 5.4 (2.0-8.3) x10*3/uL Absolute Nucleated RBC 0.000 (0.0-0.012) X10*3/uL Nucleated RBC % (auto) 0.0 (0.0-0.2) /100WBC PT 30.1 H (11.1-13.3) SEC INR 2.5 H (0.9-1.1) Sodium 140 (135-145) mmol/L Potassium 3.9 (3.3-5.1) mmol/L Chloride 102 (96-108) mmol/L Carbon Dioxide 31 H (22-29) mmol/L Anion Gap 11 L (12-20) BUN 12 (9-16) mg/dL Creatinine 0.89 (0.5-1.4) mg/dL Estim Creat Clear Calc 50.2 Estimated GFR 60 Random Glucose 155 H (60-115) mg/dL Calcium 9.9 (8.4-10.2) mg/dL Magnesium 1.6 (1.6-2.6) mg/dL Total Bilirubin 0.8 (0.0-1.0) mg/dL Direct Bilirubin 0.4 (0.0-0.5) mg/dL AST 19 (5-31) U/L ALT 11 (0-31) U/L Alkaline Phosphatase 108 (39-117) U/L Troponin I High Sens 23.3 H D 21.9 H (<3.5-17.0) ng/L B-Natriuretic Peptide 794 H (<100) pg/mL Total Protein 7.6 (6.5-8.0) g/dL Albumin 3.5 (3.5-5.0) g/dL Lipase 4 L (8-78) U/L Independent Interpretation I performed an independent interpretation of an: EKG and Plain X-Ray (doubt pneumonia suspect effusion) Interpretation: Rate: 74 Rhythm: NSR with 1st degree AVB [place]: left Normal P waves. 1st degree AVB RBBB ST T wave : no ANDREE, inverted t waves V1 qTC: 490 prior studies: The study has been interpreted contemporaneously by me. . Radiology Impression Discussion of test interpretation with radiology: I have reviewed the radiologist's reading. Independent Historian Clinical information obtained from an independent historian. History obtained from or confirmed by: EMS and Other (family) External Record Review External record reviewed: Inpatient record Discharge Plan Discharge Clinical Impression: Acute dyspnea CHF (congestive heart failure) Qualifiers: Heart failure type: unspecified Heart failure chronicity: acute on chronic Qualified Code(s): I50.9 - Heart failure, unspecified Patient Disposition: Admitted As Inpatient Print Language: Surinamese
[2024-02-09 11:19] LABS: Alanine Aminotransferase 11 U/L (0-31); Albumin Level 3.5 g/dL (3.5-5.0); Alkaline Phosphatase 108 U/L (39-117); Anion Gap 11 (12-20); Aspartate Amino Transferase 19 U/L (5-31); Bilirubin Direct 0.4 mg/dL (0.0-0.5); Bilirubin Total 0.8 mg/dL (0.0-1.0); Blood Urea Nitrogen 12 mg/dL (9-16); Calcium 9.9 mg/dL (8.4-10.2); Carbon Dioxide 31 mmol/L (22-29); Chloride 102 mmol/L (96-108); Creatinine Clr Calc Pharmacy 50.2; Estimated Glomerular Filt Rate 60; Glucose Random 155 mg/dL (60-115); Lipase 4 U/L (8-78); Magnesium 1.6 mg/dL (1.6-2.6); Potassium 3.9 mmol/L (3.3-5.1); Sodium 140 mmol/L (135-145); Total Protein 7.6 g/dL (6.5-8.0)
[2024-02-09 11:23] LABS: B Type Natriuretic Peptide 794 pg/mL (<100)
[2024-02-09 11:25] LABS: Troponin-I High Sensitivity 23.3 ng/L (<3.5-17.0)
[2024-02-09] MEDS: Furosemide 40 MG/4 ML VIAL IVPUSH ×2 (11:47→19:29)
[2024-02-09 13:40] LABS: Troponin-I High Sensitivity 21.9 ng/L (<3.5-17.0)
--- NOTE | 2024-02-09 15:23 | PHA.MEDREC ---
Pharmacy Consult ? Medication Reconciliation Pharmacy has completed the medication reconciliation. Confirmed medications with family. Daughter and her family at bedside had a list that had matched some items in her claims but we were still missing some medications that they could not remember but knew she had a nurse from [facility] named Artemio and family gave me his number to call. I called [facility] and got a medication list from them and called her nurse and confirmed her insulins. She is on Lantus solostar 25units daily, Humalog she is doing 8 units TID with meals, and she was taking Trulicity and her nurse informed me that she is no longer takling the trulicity due to her getting stomach pains from it. Her nurse was also able to verify she is taking Warfarin 3mg 1.5mg-3mg daily depending on her INR levels. Also nurse confirmed she finished her prednisone steroid.
--- NOTE | 2024-02-09 15:41 | PM.IMHP ---
History of Present Illness Date of Service: 02/09/24 Chief Complaint: SOB An 88 years old lady with PMH of CHF, DVT on warfarin, HTN, HLD, GERD, Afib, HLD, DMII among others who presents to the hospital complaining of increase swelling in lower extremities and SOB. She has been using more pillows at night to avoid dyspnea. denies No chest pain, palpitations, nausea, vomiting, or urinary symptoms. she noticed increasing the size of her legs with more than usual urine output. For the last few days she has been using her PRN O2 for comfort. also complaining of cough which is non-productive, LUQ pain with diarrhea for 3 times. denies any fever or chills but has generalized weakness and no energy. In ED she was found with elevated BNP of 700s and CXR showing fluid overload and possible LLL infiltrates Will be admitted for further evaluation and treatment. Review of Systems Review of Systems: No fever, chills but has generalized weakness No chest pain, palpitation reporting shortness of breath and coughing mild LUQ abdominal pain w diarrha, no nausea or vomiting No urinary symptoms RLE erythma Yes all other systems are reviewed and are negative [facility] Medical History (Updated 02/09/24 @ 16:15 by Jairon Byers MD) Pneumonia Multiple falls Acute on chronic respiratory failure with hypoxemia Weakness Urgency incontinence Menopause Well woman exam Current use of anticoagulant therapy Stenosis of carotid artery Diabetes type 2, controlled Sepsis Gastroenteritis Hypoxia Pneumonia Urinary incontinence Obesity due to excess calories Type 2 diabetes mellitus with diabetic polyneuropathy Senile cataract of left eye Essential hypertension Hyperlipemia Paroxysmal A-fib Anxiety disorder Hypothyroidism Coronary artery disease History of cerebrovascular accident Osteoarthritis Osteopenia Deep vein thrombosis Hearing loss Family History Father Heart disease CVD (cardiovascular disease) Mother Diabetes Surgical History H/O colonoscopy H/O breast surgery S/P IVC filter History of bilateral tubal ligation Social History Household Members: Family Housing: Apartment Do you presently have visiting nurse or other home services: Yes Alcohol intake: never Patient Tobacco Use Status: Never used Tobacco Smoked in Last 30 Days: No Use of substances other than those prescribed or required for medical reasons: No Advance Directives: Yes Advance Directives on File: Yes Advance Directives Date on File: 07/01/22 Do you have a plan to hurt others: No Plan service: No Current occupational status: unemployed Sexual orientation: Straight/Heterosexual Gender identity: Female Meds Allergies Allergy/AdvReac Type Severity Reaction Status Date / Time shellfish derived Allergy Severe Hives Verified 02/09/24 10:39 aspirin [Aspirin] Allergy Mild Gastrointestinal Verified 02/09/24 10:39 Upset ibuprofen Allergy Unknown Unknown Verified 02/09/24 10:39 oxycodone [From PERCOCET] Allergy Unknown PALPITATION Verified 02/09/24 10:39 S Robitussin Cold Cough+ Chest Allergy Intermediate hives Uncoded 02/09/24 10:39 SEAFOOD Allergy Intermediate hives Uncoded 02/09/24 10:39 Home Medications ?Medication ?Instructions ?Recorded ?Confirmed ?Last Taken ?Type atorvastatin 20 mg tablet 20 mg PO BEDTIME 05/21/20 02/09/24 02/08/24 History blood sugar diagnostic #10 ea 05/21/20 10/13/23 Unknown History cholecalciferol (vitamin D3) 50 50 mcg PO DAILY 05/21/20 02/09/24 02/08/24 History mcg (2,000 unit) tablet fluticasone 500 mcg-salmeterol 50 1 inh inhalation BID 05/21/20 02/09/24 02/08/24 History mcg/dose blistr powdr for inhalation fluticasone propionate 50 2 spray intranasal DAILY 05/21/20 02/09/24 02/08/24 History mcg/actuation nasal spray,suspension furosemide 40 mg tablet 40 mg PO DAILY 05/21/20 02/09/24 02/08/24 History lancets #100 ea 05/21/20 10/13/23 Unknown History levothyroxine 100 mcg tablet 100 mcg PO DAILY@0600 05/21/20 02/09/24 02/08/24 History omeprazole 20 mg capsule,delayed 20 mg PO BID@0630,1630 05/21/20 02/09/24 02/08/24 History release pen needle, diabetic 32 gauge x #50 ea 05/21/20 10/13/23 Unknown History sertraline 50 mg tablet 50 mg PO DAILY 05/21/20 02/09/24 02/08/24 History metoprolol tartrate 25 mg tablet 12.5 mg PO BID 12/17/20 02/09/24 02/08/24 History nebulizers (Sidestream misc) #1 ea 05/14/21 10/13/23 Unknown History multivitamin-iron sulfate 15 1 tab PO QAM 12/15/21 02/09/24 02/08/24 History mg-folic acid 400 mcg tablet (Tab-A-Judith Multivitamin w-iron) insulin lispro 100 unit/mL 8 unit subcut TIDAC 06/26/22 02/09/24 02/08/24 History subcutaneous pen (Humalog KwikPen (U-100) Insulin) metformin 500 mg tablet,extended 500 mg PO BIDWM 09/20/22 02/09/24 02/08/24 History release 24 hr clonazepam 0.5 mg tablet 0.5 mg PO BEDTIME 04/19/23 02/09/24 02/08/24 History docusate sodium 100 mg capsule 100 mg PO BID 04/19/23 02/09/24 Unknown History solifenacin 5 mg tablet 5 mg PO DAILY 10/17/23 02/09/24 02/08/24 History acetaminophen 650 mg 650 mg PO Q8H PRN Pain/Fever 02/09/24 02/09/24 Unknown History tablet,extended release betamethasone valerate 0.1 % 1 appl topical BID PRN dryness 02/09/24 02/09/24 Unknown History topical cream clotrimazole 1 % vaginal cream 1 appl vaginal BID PRN Irritation 02/09/24 02/09/24 Unknown History ipratropium 0.5 mg-albuterol 3 mg 3 ml inhalation QID PRN 02/09/24 02/09/24 Unknown History (2.5 mg base)/3 mL nebulization SOB/Cough/Wheezing soln sucralfate 1 gram tablet 1 g PO TIDAC 02/09/24 02/09/24 02/08/24 History triamcinolone acetonide 0.1 % 1 appl topical BID PRN Rash 02/09/24 02/09/24 Unknown History topical ointment warfarin 3 mg tablet 1.5 - 3 mg PO DAILY 02/09/24 02/09/24 Unknown History Physical Exam Vital Signs and Narrative: Vital Signs: Last Vital Signs Temp 98.0 F 02/09/24 14:20 Pulse 89 02/09/24 14:20 Resp 16 02/09/24 14:20 BP 135/74 02/09/24 14:20 Pulse Ox 97 02/09/24 14:20 O2 Del Method Room Air 02/09/24 14:20 O2 Flow Rate 2 02/09/24 11:46 Oxygen Flow Rate 2 02/09/24 10:30 BMI result Body Mass Index 43.1 Const: Other: Constitutional : Awake, interactive, not in distress Neck : Normal inspection, Supple Cardiovascular : RRR, no JVP, no lower extremity edema Respiratory : good bilateral air entry, LLL basal crackles, wheezes or rhonchi Gastrointestinal: soft, lax, Normal bowel sounds, Non tender Skin : Warm, Dry, RLE area of erythema with no significant tenderness or warmth Neurological : Alert & oriented x3, No focal deficit Results Labs 02/09/24 10:53 02/09/24 10:53 Labs: Laboratory Results - last 24 hr 02/09/24 02/09/24 10:53 13:13 MCV 94.7 MCH 29.7 MCHC 31.4 RDW 14.1 Plt Count 198 D MPV 10.3 Immature Gran % (Auto) 0.4 Neut % (Auto) 65.6 Lymph % (Auto) 23.4 [place] % (Auto) 7.0 Eos % (Auto) 3.1 Baso % (Auto) 0.5 Lymph # (Auto) 1.9 [place] # (Auto) 0.6 Eos # (Auto) 0.3 Baso # (Auto) 0.0 Abs Immat Gran (auto) 0.03 Absolute Neuts (auto) 5.4 Absolute Nucleated RBC 0.000 Nucleated RBC % (auto) 0.0 PT 30.1 H INR 2.5 H Anion Gap 11 L Estim Creat Clear Calc 50.2 Estimated GFR 60 Random Glucose 155 H Calcium 9.9 Magnesium 1.6 Total Bilirubin 0.8 Direct Bilirubin 0.4 AST 19 ALT 11 Alkaline Phosphatase 108 Troponin I High Sens 23.3 H D 21.9 H B-Natriuretic Peptide 794 H Total Protein 7.6 Albumin 3.5 Lipase 4 L Imaging Radiologist's Impressions: Impressions Chest X-Ray 02/09/24 11:15 IMPRESSION: New focal consolidative airspace opacities in the left lower lung with associated small left pleural effusion. Findings are concerning for pneumonia in the appropriate clinical context. Recommend short-term follow-up to ensure appropriate resolution. Assessment and Plan (1) CHF (congestive heart failure): Qualifiers: Heart failure chronicity: acute on chronic Heart failure type: unspecified Qualified Code(s): I50.9 - Heart failure, unspecified Status: Acute (2) Acute dyspnea: Status: Acute (3) Pneumonia: Qualifiers: Laterality: right Lung location: lower lobe of lung Pneumonia type: due to unspecified organism Qualified Code(s): J18.9 - Pneumonia, unspecified organism Status: Acute Plan An 88 years old lady with PMH of CHF, DVT on warfarin, HTN, HLD, GERD, PAF, HLD, DMII among others who presents to the hospital complaining of increase swelling in lower extremities and SOB. Acute on chronic dCHF exacerbation start IV lasix I\O Wean O2 down as tolerated Community aquired pneumonia not septic CXR showing LLL infitrates check legionella start Azithromycin and Ceftriaxone physical deconditioning PT eval Diabetes type 2 SSI Paroxysmal atrial fibrillation Continue MEtoprolol and warfarin INR daily Hyperlipidemia statin Mental health Continue home medications GERD Continue PPI Hypothyroidism Continue levothyroxine Morbid obesity. BMI 43, advised weight loss DVT prophylaxis warfarin The patient will need 2 overnight hospital stay for treatment of Heart failure and pneumonia Quality Stroke Does the patient have a stroke diagnosis?: No VTE Prior VTE?: Yes VTE Risk Level:: Medical - moderate - high VTE Device Contraindication: Treatment Not Indicated VTE Drug Contraindication: N/A - Med Ordered
[2024-02-09 16:50] LABS: Glucose, Whole Blood 173 mg/dL (60-115)
[2024-02-09] MEDS: Insulin Lispro 100 UNIT/ML 3 ML VIAL SUBCUT ×2 (16:56→22:15)
[2024-02-09] MEDS: cefTRIAXone sodium 1 GM in 0.9 % Sodium Chloride 50 ML IV (16:57)
[2024-02-09] MEDS: Azithromycin 500 MG in 0.9 % Sodium Chloride 250 ML 125 MG IV (17:00)
[2024-02-09 21:44] LABS: Glucose, Whole Blood 169 mg/dL (60-115)
[2024-02-09] MEDS: Hydrocortisone 1 % Cream 28.35 GM TUBE 1 APPL TOPICAL (22:15)
[2024-02-09] MEDS: 0.9 % Sodium Chloride Flush 3 ML SYRINGE IVFLUSH (22:46)
[2024-02-09] MEDS: guaiFENesin LA 600 MG TAB.ER.12H PO (22:46)
[2024-02-10] VITALS (12 sets, daily range): BP systolic 124–161; BP diastolic 59–82; PULSE 74–112; RESP 16–20; TEMP 36–37.1; O2SAT 92–99
[2024-02-10] MEDS: ondansetron HCL 4 MG/2 ML VIAL IVPUSH (02:56)
--- NOTE | 2024-02-10 03:17 | PC.NURSE ---
Pt with mild nausea and heartburn. PRN zofran given. Pt has Tums chewable ordered but unable to chew with missing teeth. MD Galeano notified and PRN Maalox ordered and given
[2024-02-10] MEDS: Magnesium Hydrox/Alum Hydrox 30 ML ORAL.SUSP PO (03:19)
[2024-02-10] MEDS: Pantoprazole Sodium 40 MG/10 ML VIAL IVPUSH (06:38)
[2024-02-10 07:19] LABS: Hematocrit 34.2 % (37.0-47.0); Hemoglobin 10.7 g/dl (12.0-16.0); Mean Corpuscular HGB Conc 31.3 g/dl (31.0-35.0); Mean Corpuscular Hemoglobin 29.7 pg (27.0-33.0); Mean Platelet Volume 10.9 fL (9.4-12.3); Platelet Count 212 X10*3/uL (160-400); Red Cell Distribution Width 14.1 % (11.0-16.0); White Blood Count 7.5 X10*3/uL (4.8-10.8)
[2024-02-10 07:34] LABS: B Type Natriuretic Peptide 269 pg/mL (<100)
[2024-02-10 07:42] LABS: Glucose, Whole Blood 121 mg/dL (60-115)
[2024-02-10 07:50] LABS: Anion Gap 11 (12-20); Blood Urea Nitrogen 12 mg/dL (9-16); Calcium 9.5 mg/dL (8.4-10.2); Carbon Dioxide 32 mmol/L (22-29); Chloride 103 mmol/L (96-108); Creatinine Clr Calc Pharmacy 50.8; Estimated Glomerular Filt Rate > 60; Glucose Random 106 mg/dL (60-115); Potassium 3.5 mmol/L (3.3-5.1); Sodium 142 mmol/L (135-145)
[2024-02-10] MEDS: Hydrocortisone 1 % Cream 28.35 GM TUBE 1 APPL TOPICAL ×2 (09:30→22:04)
[2024-02-10] MEDS: guaiFENesin LA 600 MG TAB.ER.12H PO ×2 (09:30→22:02)
[2024-02-10] MEDS: 0.9 % Sodium Chloride Flush 3 ML SYRINGE IVFLUSH ×2 (09:30→22:03)
[2024-02-10] MEDS: Furosemide 40 MG/4 ML VIAL IVPUSH ×2 (09:30→16:55)
[2024-02-10] MEDS: Benzonatate 100 MG CAPSULE PO ×2 (09:38→22:10)
--- NOTE | 2024-02-10 09:54 | HO.PM.IMPN ---
Subjective Subjective Date of Service: 02/10/24 Interval History: seen and evaluated this morning feels better overall swelling decreased No abd pain Review of Systems Review of Systems: Yes all other systems are reviewed and are negative Physical Exam Vital Signs: Vital Signs: Last Vital Signs Temp 96.9 F 02/10/24 07:55 Pulse 97 02/10/24 07:55 Resp 20 02/10/24 07:55 BP 130/61 02/10/24 09:30 Pulse Ox 99 02/10/24 07:55 O2 Del Method Nasal Cannula 02/10/24 07:55 O2 Flow Rate 3 02/10/24 07:55 Oxygen Flow Rate 2 02/09/24 10:30 BMI result Body Mass Index 42.3 Const: Other: Constitutional : Awake, interactive, not in distress Neck : Normal inspection, Supple Cardiovascular : RRR, no JVP, +1 lower extremity edema Respiratory : good bilateral air entry, LLL basal crackles, no wheezes or rhonchi Gastrointestinal: soft, lax, Normal bowel sounds, Non tender Skin : Warm, Dry, RLE area of erythema with no significant tenderness or warmth Neurological : Alert & oriented x3, No focal deficit Objective Data Active Medications Acetaminophen (Acetaminophen 325 Mg Tablet) 650 mg PO Q6H PRN PRN Reason: Pain, Mild (Pain Scale 1-3), fever or headache Al Hydroxide/Mg Hydroxide (Magnesium Hydrox/Alum Hydrox 30 Ml Oral.Susp) 30 ml PO Q4H PRN PRN Reason: Heartburn Last Admin: 02/10/24 03:19 Dose: 30 ml Documented By: DALE Benzonatate (Benzonatate 100 Mg Capsule) 100 mg PO TID PRN PRN Reason: Cough Last Admin: 02/10/24 09:38 Dose: 100 mg Documented By: CHRISTIAN Calcium Carbonate (Calcium Carbonate 750 Mg Tab.Chew) 750 mg PO Q4H PRN PRN Reason: Heartburn Furosemide (Furosemide 40 Mg/4 Ml Vial) 40 mg IVPUSH BID@0900,1800 [facility]; Protocol Last Admin: 02/10/24 09:30 Dose: 40 mg Documented By: CHRISTIAN Guaifenesin (Guaifenesin La 600 Mg Tab.Er.12h) 600 mg PO BID [facility] Last Admin: 02/10/24 09:30 Dose: 600 mg Documented By: CHRISTIAN Hydrocortisone (Hydrocortisone 1 % Cream 28.35 Gm Tube) 1 appl TOPICAL BID [facility]; Protocol Last Admin: 02/10/24 09:30 Dose: 1 appl Documented By: CHRISTIAN Azithromycin 500 mg/ Sodium (Chloride) 250 mls @ 125 mls/hr IV Q24H [facility] Last Infusion: 02/09/24 19:18 Dose: Infused Documented By: THOMAS Ceftriaxone Sodium 1 gm/ (Sodium Chloride) 50 mls @ 100 mls/hr IV Q24H [facility] Last Infusion: 02/09/24 19:18 Dose: Infused Documented By: THOMAS Insulin Human Lispro (Insulin Lispro 100 Unit/Ml 3 Ml Vial) 0 unit SUBCUT QIDACHS [facility]; Protocol Last Admin: 02/10/24 07:43 Dose: Not Given Documented By: CHRISTIAN Non-Admin Reason: No Insulin Coverage Magnesium Hydroxide (Milk Of Magnesia 30 Ml Oral.Susp) 30 ml PO DAILY PRN PRN Reason: Constipation Melatonin (Melatonin 3 Mg Tablet) 6 mg PO BEDTIME PRN PRN Reason: Insomnia Ondansetron HCl (Ondansetron Hcl 4 Mg/2 Ml Vial) 4 mg IVPUSH Q8H PRN PRN Reason: Nausea and Vomiting Last Admin: 02/10/24 02:56 Dose: 4 mg Documented By: DALE Pantoprazole Sodium (Pantoprazole Sodium 40 Mg/10 Ml Vial) 40 mg IVPUSH BID@0630,1630 [facility] Last Admin: 02/10/24 06:38 Dose: 40 mg Documented By: DALE Sodium Chloride (0.9 % Sodium Chloride Flush 3 Ml Syringe) 3 ml IVFLUSH QSHIFT [facility] Last Admin: 02/10/24 09:30 Dose: 3 ml Documented By: CHRISTIAN Labs 02/10/24 06:25 02/10/24 06:19 Labs: Laboratory Results - last 24 hr 02/09/24 02/09/24 02/09/24 10:53 13:13 16:47 MCV 94.7 MCH 29.7 MCHC 31.4 RDW 14.1 Plt Count 198 D MPV 10.3 Immature Gran % (Auto) 0.4 Neut % (Auto) 65.6 Lymph % (Auto) 23.4 [place] % (Auto) 7.0 Eos % (Auto) 3.1 Baso % (Auto) 0.5 Lymph # (Auto) 1.9 [place] # (Auto) 0.6 Eos # (Auto) 0.3 Baso # (Auto) 0.0 Abs Immat Gran (auto) 0.03 Absolute Neuts (auto) 5.4 Absolute Nucleated RBC 0.000 Nucleated RBC % (auto) 0.0 PT 30.1 H INR 2.5 H Anion Gap 11 L Estim Creat Clear Calc 50.2 Estimated GFR 60 POC Glucose 173 H Random Glucose 155 H Calcium 9.9 Magnesium 1.6 Total Bilirubin 0.8 Direct Bilirubin 0.4 AST 19 ALT 11 Alkaline Phosphatase 108 Troponin I High Sens 23.3 H D 21.9 H B-Natriuretic Peptide 794 H Total Protein 7.6 Albumin 3.5 Lipase 4 L 02/09/24 02/10/24 02/10/24 21:34 06:19 06:25 MCV 95.0 MCH 29.7 MCHC 31.3 RDW 14.1 Plt Count 212 MPV 10.9 Immature Gran % (Auto) Neut % (Auto) Lymph % (Auto) [place] % (Auto) Eos % (Auto) Baso % (Auto) Lymph # (Auto) [place] # (Auto) Eos # (Auto) Baso # (Auto) Abs Immat Gran (auto) Absolute Neuts (auto) Absolute Nucleated RBC 0.000 Nucleated RBC % (auto) 0.0 PT INR Anion Gap 11 L Estim Creat Clear Calc 50.8 Estimated GFR > 60 POC Glucose 169 H Random Glucose 106 Calcium 9.5 Magnesium Total Bilirubin Direct Bilirubin AST ALT Alkaline Phosphatase Troponin I High Sens B-Natriuretic Peptide 269 H Total Protein Albumin Lipase 02/10/24 07:36 MCV MCH MCHC RDW Plt Count MPV Immature Gran % (Auto) Neut % (Auto) Lymph % (Auto) [place] % (Auto) Eos % (Auto) Baso % (Auto) Lymph # (Auto) [place] # (Auto) Eos # (Auto) Baso # (Auto) Abs Immat Gran (auto) Absolute Neuts (auto) Absolute Nucleated RBC Nucleated RBC % (auto) PT INR Anion Gap Estim Creat Clear Calc Estimated GFR POC Glucose 121 H Random Glucose Calcium Magnesium Total Bilirubin Direct Bilirubin AST ALT Alkaline Phosphatase Troponin I High Sens B-Natriuretic Peptide Total Protein Albumin Lipase Assessment and Plan (1) Pneumonia: Status: Acute (2) CHF (congestive heart failure): Status: Acute (3) Acute dyspnea: Status: Acute (4) Multiple falls: Status: Acute Plan An 88 years old lady with PMH of CHF, DVT on warfarin, HTN, HLD, GERD, PAF, HLD, DMII among others who presents to the hospital complaining of increase swelling in lower extremities and SOB. Acute on chronic dCHF exacerbation swelling decreasing BNP trending down start IV lasix I\O Wean O2 down as tolerated Community aquired pneumonia not septic CXR showing LLL infitrates check legionella Continue Azithromycin and Ceftriaxone physical deconditioning PT eval Diabetes type 2 SSI Paroxysmal atrial fibrillation Continue MEtoprolol and warfarin INR daily Hyperlipidemia statin Mental health Continue home medications GERD Continue PPI Hypothyroidism Continue levothyroxine Morbid obesity. BMI 43, advised weight loss DVT prophylaxis warfarin The patient will need overnight hospital stay for treatment of Heart failure and pneumonia Quality Stroke Does the patient have a stroke diagnosis?: No VTE Prior VTE?: Yes VTE Risk Level:: Medical - moderate - high VTE Device Contraindication: Treatment Not Indicated VTE Drug Contraindication: N/A - Med Ordered
[2024-02-10 10:37] LABS: Estimated Average Glucose 166 mg/dL; Hemoglobin A1c % 7.4 % (<6.0)
[2024-02-10 11:11] LABS: Glucose, Whole Blood 170 mg/dL (60-115)
[2024-02-10] MEDS: Metoprolol Tartrate 12.5 MG HALFTAB PO ×2 (11:33→22:02)
[2024-02-10] MEDS: Sucralfate 1 GM TABLET PO ×2 (11:33→16:55)
[2024-02-10] MEDS: Insulin Glargine,Hum.rec.anlog 100 UNIT/ML 10 ML VIAL 15 UNIT SUBCUT (11:33)
[2024-02-10] MEDS: Multivitamin TABLET 1 TAB PO (11:33)
[2024-02-10] MEDS: Insulin Lispro 100 UNIT/ML 3 ML VIAL SUBCUT ×3 (11:33→22:02)
[2024-02-10] MEDS: Levothyroxine Sodium 100 MCG TABLET PO (11:33)
[2024-02-10] MEDS: Albuterol/Iprat 2.5/0.5MG 3 ML AMPUL.NEB INHALE ×2 (13:49→19:57)
[2024-02-10 15:17] LABS: Glucose, Whole Blood 184 mg/dL (60-115)
--- NOTE | 2024-02-10 16:20 | MHC.CM.PN ---
Addendum entered by Danielle Rodriguez 02/11/24 16:13: CM MET WITH PTS SON THIS MORNING, HE REPORTS HE WAS TOLD THE PT WOULD NEED STR AND HE WOULD LIKE HER TO STAY IN [place] AND DEFINITELY NOT GO TO [place] PTS DAUGHTER, ANTHONY, APPROACHED CM THIS AFTERNOON AND INDICATED SHE UNDERSTOOD THE PT MAY NOT BE ABLE TO STAY IN [place], BUT THEY FEEL SHE DEFINITELY NEEDS STR. SHE IS AWARE REFERRALS ARE OUT AND BED OFFERS WILL BE REVIEWED WITH FAMILY ONCE RESPONSES ARE RECEIVED Original Note: DAVID CALLED PTS SONBRIAN [phone] WITH A [employer] MANAGER HE REPORTS THE PT LIVES WITH HER OTHER SON AND HAS DAILY [employer] SERVICES HE THINKS SHE HAS A VNA BUT DOES NOT KNOW THE AGENCY SHE USES A [facility] HCP ON FILE PCP: CATALINA BAGLEY IMM DELIVERED DCP: HOME RESUME [employer] FAMILY TO TRANSPORT
[2024-02-10] MEDS: Azithromycin 500 MG in 0.9 % Sodium Chloride 250 ML 125 MG IV (16:54)
[2024-02-10] MEDS: cefTRIAXone sodium 1 GM in 0.9 % Sodium Chloride 50 ML IV (16:54)
[2024-02-10] MEDS: Omeprazole 20 MG CAPSULE.DR PO (16:55)
[2024-02-10] MEDS: Warfarin Sodium 2.5 MG TABLET PO (16:55)
[2024-02-10] MEDS: Fluticasone/Vilanterol 200/25 BLST.W.DEV 1 PUFF INHALE (19:57)
[2024-02-10 21:02] LABS: Glucose, Whole Blood 204 mg/dL (60-115)
[2024-02-10] MEDS: Atorvastatin Calcium 20 MG TABLET PO (22:02)
[2024-02-10] MEDS: clonazePAM 0.5 MG TABLET PO (22:02)
[2024-02-10] MEDS: Docusate Sodium 100 MG CAPSULE PO (22:04)
[2024-02-11] VITALS (12 sets, daily range): BP systolic 131–153; BP diastolic 60–83; PULSE 80–96; RESP 16–20; TEMP 36.1–37.7; O2SAT 92–100
[2024-02-11] MEDS: Omeprazole 20 MG CAPSULE.DR PO ×2 (06:00→18:16)
[2024-02-11] MEDS: Levothyroxine Sodium 100 MCG TABLET PO (06:01)
[2024-02-11 07:01] LABS: Prothrombin Time 24.8 SEC (11.1-13.3)
[2024-02-11 07:17] LABS: Anion Gap 11 (12-20); Blood Urea Nitrogen 13 mg/dL (9-16); Calcium 9.2 mg/dL (8.4-10.2); Carbon Dioxide 32 mmol/L (22-29); Chloride 100 mmol/L (96-108); Creatinine Clr Calc Pharmacy 43.4; Estimated Glomerular Filt Rate 51; Glucose Random 138 mg/dL (60-115); Potassium 3.7 mmol/L (3.3-5.1); Sodium 139 mmol/L (135-145)
[2024-02-11] MEDS: Fluticasone/Vilanterol 200/25 BLST.W.DEV 1 PUFF INHALE (07:38)
[2024-02-11] MEDS: Albuterol/Iprat 2.5/0.5MG 3 ML AMPUL.NEB INHALE ×4 (07:38→19:26)
[2024-02-11 07:52] LABS: Glucose, Whole Blood 136 mg/dL (60-115)
[2024-02-11] MEDS: Sertraline HCL 50 MG TABLET PO (08:09)
[2024-02-11] MEDS: Sucralfate 1 GM TABLET PO ×3 (08:09→18:16)
[2024-02-11] MEDS: Docusate Sodium 100 MG CAPSULE PO ×2 (08:09→22:02)
[2024-02-11] MEDS: Multivitamin TABLET 1 TAB PO (08:09)
[2024-02-11] MEDS: Metoprolol Tartrate 12.5 MG HALFTAB PO ×2 (08:09→22:02)
[2024-02-11] MEDS: Furosemide 40 MG/4 ML VIAL IVPUSH ×2 (08:10→18:27)
[2024-02-11] MEDS: Insulin Glargine,Hum.rec.anlog 100 UNIT/ML 10 ML VIAL 15 UNIT SUBCUT (08:10)
[2024-02-11] MEDS: guaiFENesin LA 600 MG TAB.ER.12H PO ×2 (08:10→22:02)
[2024-02-11] MEDS: Cholecalciferol (Vitamin D3) 25 MCG TABLET 50 MCG PO (08:10)
[2024-02-11] MEDS: 0.9 % Sodium Chloride Flush 3 ML SYRINGE IVFLUSH ×2 (08:10→18:20)
--- NOTE | 2024-02-11 10:50 | HO.PM.IMPN ---
Subjective Subjective Date of Service: 02/11/24 Interval History: seen and evaluated this morning feels better overall swelling decreased still on O2 supplement No abd pain Review of Systems Review of Systems: Yes all other systems are reviewed and are negative Physical Exam Vital Signs: Vital Signs: Last Vital Signs Temp 97.2 F 02/11/24 08:00 Pulse 88 02/11/24 08:00 Resp 20 02/11/24 08:00 BP 135/64 02/11/24 08:00 Pulse Ox 96 02/11/24 08:00 O2 Del Method Nasal Cannula 02/11/24 08:00 O2 Flow Rate 3 02/11/24 08:00 Oxygen Flow Rate 2 02/09/24 10:30 BMI result Body Mass Index 42.3 Const: Other: Constitutional : Awake, interactive, not in distress Neck : Normal inspection, Supple Cardiovascular : RRR, no JVP, +1 lower extremity edema Respiratory : good bilateral air entry, LLL basal crackles, no wheezes or rhonchi Gastrointestinal: soft, lax, Normal bowel sounds, Non tender Skin : Warm, Dry, resolving RLE area of erythema with no significant tenderness Neurological : Alert & oriented x3, No focal deficit Objective Data Active Medications Acetaminophen (Acetaminophen 325 Mg Tablet) 650 mg PO Q6H PRN PRN Reason: Pain, Mild (Pain Scale 1-3), fever or headache Al Hydroxide/Mg Hydroxide (Magnesium Hydrox/Alum Hydrox 30 Ml Oral.Susp) 30 ml PO Q4H PRN PRN Reason: Heartburn Last Admin: 02/10/24 03:19 Dose: 30 ml Documented By: DALE Albuterol/Ipratropium (Albuterol/Iprat 2.5/0.5mg 3 Ml Ampul.Neb) 3 ml INHALE RQID [facility] Last Admin: 02/11/24 07:38 Dose: 3 ml Documented By: FREDDY Atorvastatin Calcium (Atorvastatin Calcium 20 Mg Tablet) 20 mg PO BEDTIME [facility] Last Admin: 02/10/24 22:02 Dose: 20 mg Documented By: DALE Benzonatate (Benzonatate 100 Mg Capsule) 100 mg PO TID PRN PRN Reason: Cough Last Admin: 02/10/24 22:10 Dose: 100 mg Documented By: DALE Calcium Carbonate (Calcium Carbonate 750 Mg Tab.Chew) 750 mg PO Q4H PRN PRN Reason: Heartburn Clonazepam (Clonazepam 0.5 Mg Tablet) 0.5 mg PO BEDTIME [facility] Last Admin: 02/10/24 22:02 Dose: 0.5 mg Documented By: DALE Clotrimazole (Clotrimazole 1 % Vaginal Cream 45 Gm Tube) 1 appl VAGINAL BID PRN PRN Reason: Irritation Docusate Sodium (Docusate Sodium 100 Mg Capsule) 100 mg PO BID [facility] Last Admin: 02/11/24 08:09 Dose: 100 mg Documented By: RAJ Fluticasone/Vilanterol (Fluticasone/Vilanterol 200/25 Blst.W.Dev) 1 puff INHALE RDAILY [facility] Last Admin: 02/11/24 07:38 Dose: 1 puff Documented By: FREDDY Furosemide (Furosemide 40 Mg/4 Ml Vial) 40 mg IVPUSH BID@0900,1800 [facility]; Protocol Last Admin: 02/11/24 08:10 Dose: 40 mg Documented By: RAJ Guaifenesin (Guaifenesin La 600 Mg Tab.Er.12h) 600 mg PO BID [facility] Last Admin: 02/11/24 08:10 Dose: 600 mg Documented By: RAJ Hydrocortisone (Hydrocortisone 1 % Cream 28.35 Gm Tube) 1 appl TOPICAL BID [facility]; Protocol Last Admin: 02/11/24 09:16 Dose: Not Given Documented By: RAJ Non-Admin Reason: Med Not Available Azithromycin 500 mg/ Sodium (Chloride) 250 mls @ 125 mls/hr IV Q24H [facility] Last Infusion: 02/10/24 19:22 Dose: Infused Documented By: DALE Ceftriaxone Sodium 1 gm/ (Sodium Chloride) 50 mls @ 100 mls/hr IV Q24H [facility] Last Infusion: 02/10/24 17:35 Dose: Infused Documented By: CHRISTIAN Insulin Glargine (Insulin Glargine,Hum.Rec.Anlog 100 Unit/Ml 10 Ml Vial) 15 unit SUBCUT DAILY [facility] Last Admin: 02/11/24 08:10 Dose: 15 unit Documented By: RAJ Insulin Human Lispro (Insulin Lispro 100 Unit/Ml 3 Ml Vial) 0 unit SUBCUT QIDACHS [facility]; Protocol Last Admin: 02/11/24 08:03 Dose: Not Given Documented By: RAJ Non-Admin Reason: No Insulin Coverage Lactulose (Lactulose 20 Gm/30 Ml Solution) 20 gm PO BID [facility] Levothyroxine Sodium (Levothyroxine Sodium 100 Mcg Tablet) 100 mcg PO DAILY@0600 [facility] Last Admin: 02/11/24 06:01 Dose: 100 mcg Documented By: DALE Magnesium Hydroxide (Milk Of Magnesia 30 Ml Oral.Susp) 30 ml PO DAILY PRN PRN Reason: Constipation Melatonin (Melatonin 3 Mg Tablet) 6 mg PO BEDTIME PRN PRN Reason: Insomnia Metoprolol Tartrate (Metoprolol Tartrate 12.5 Mg Halftab) 12.5 mg PO BID [facility]; Protocol Last Admin: 02/11/24 08:09 Dose: 12.5 mg Documented By: RAJ Multivitamins/Vitamin C (Multivitamin Tablet) 1 tab PO DAILY [facility] Last Admin: 02/11/24 08:09 Dose: 1 tab Documented By: RAJ Omeprazole (Omeprazole 20 Mg Capsule.Dr) 20 mg PO BID@0630,1630 [facility] Last Admin: 02/11/24 06:00 Dose: 20 mg Documented By: DALE Ondansetron HCl (Ondansetron Hcl 4 Mg/2 Ml Vial) 4 mg IVPUSH Q8H PRN PRN Reason: Nausea and Vomiting Last Admin: 02/10/24 02:56 Dose: 4 mg Documented By: DALE Sertraline HCl (Sertraline Hcl 50 Mg Tablet) 50 mg PO DAILY [facility] Last Admin: 02/11/24 08:09 Dose: 50 mg Documented By: RAJ Sodium Chloride (0.9 % Sodium Chloride Flush 3 Ml Syringe) 3 ml IVFLUSH QSHIFT [facility] Last Admin: 02/11/24 08:10 Dose: 3 ml Documented By: RAJ Sucralfate (Sucralfate 1 Gm Tablet) 1 gm PO TIDAC [facility] Last Admin: 02/11/24 08:09 Dose: 1 gm Documented By: RAJ Triamcinolone Acetonide (Triamcinolone Acet 0.1 % Oint 15 Gm Tube) 1 appl TOPICAL BID PRN PRN Reason: Rash Vitamin D (Cholecalciferol (Vitamin D3) 25 Mcg Tablet) 50 mcg PO DAILY [facility] Last Admin: 02/11/24 08:10 Dose: 50 mcg Documented By: RAJ Warfarin Sodium (Warfarin Sodium 2.5 Mg Tablet) 2.5 mg PO DAILY@1800 [facility] Last Admin: 02/10/24 16:55 Dose: 2.5 mg Documented By: CHRISTIAN Labs 02/10/24 06:25 02/11/24 06:25 Labs: Laboratory Results - last 24 hr 02/10/24 02/10/24 02/10/24 11:00 15:05 20:56 PT INR Anion Gap Estim Creat Clear Calc Estimated GFR POC Glucose 170 H 184 H 204 H Random Glucose Calcium 02/11/24 02/11/24 06:25 07:47 PT 24.8 H INR 2.0 H Anion Gap 11 L Estim Creat Clear Calc 43.4 Estimated GFR 51 POC Glucose 136 H Random Glucose 138 H Calcium 9.2 Assessment and Plan (1) Pneumonia: Status: Acute (2) CHF (congestive heart failure): Status: Acute (3) Acute dyspnea: Status: Acute Plan An 88 years old lady with PMH of CHF, DVT on warfarin, HTN, HLD, GERD, PAF, HLD, DMII among others who presents to the hospital complaining of increase swelling in lower extremities and SOB. Acute on chronic dCHF exacerbation improving slowly, swelling decreasing BNP trending down continue IV lasix , give Metolazone 2.5 mg I\O , fluid restriction Hydrocortisone cream for LE erythema; stasis dermatitis Wean O2 down as tolerated Community aquired pneumonia not septic CXR showing LLL infitrates pending legionella Continue Azithromycin and Ceftriaxone physical deconditioning PT rec STR, family prefer to go home with PT Diabetes type 2 SSI Paroxysmal atrial fibrillation Continue MEtoprolol and warfarin INR daily Hyperlipidemia statin Mental health Continue home medications GERD Continue PPI Hypothyroidism Continue levothyroxine Morbid obesity. BMI 43, advised weight loss DVT prophylaxis warfarin The patient will need overnight hospital stay for treatment of Heart failure and pneumonia weaning down O2 requirmenet Quality Stroke Does the patient have a stroke diagnosis?: No VTE Prior VTE?: Yes VTE Risk Level:: Medical - moderate - high VTE Device Contraindication: Treatment Not Indicated VTE Drug Contraindication: N/A - Med Ordered
[2024-02-11] MEDS: metOLazone 2.5 MG TABLET PO (11:00)
[2024-02-11] MEDS: Lactulose 20 GM/30 ML SOLUTION PO ×2 (11:00→22:02)
[2024-02-11 11:36] LABS: Glucose, Whole Blood 189 mg/dL (60-115)
[2024-02-11] MEDS: Insulin Lispro 100 UNIT/ML 3 ML VIAL SUBCUT ×3 (12:29→22:02)
[2024-02-11 16:03] LABS: Glucose, Whole Blood 209 mg/dL (60-115)
[2024-02-11] MEDS: Warfarin Sodium 2.5 MG TABLET PO (18:16)
[2024-02-11] MEDS: cefTRIAXone sodium 1 GM in 0.9 % Sodium Chloride 50 ML IV (18:25)
[2024-02-11] MEDS: Azithromycin 500 MG in 0.9 % Sodium Chloride 250 ML 125 MG IV (19:22)
[2024-02-11 20:50] LABS: Glucose, Whole Blood 217 mg/dL (60-115)
[2024-02-11] MEDS: Atorvastatin Calcium 20 MG TABLET PO (22:02)
[2024-02-11] MEDS: clonazePAM 0.5 MG TABLET PO (22:02)
[2024-02-12] VITALS (10 sets, daily range): BP systolic 100–137; BP diastolic 48–69; PULSE 74–92; RESP 16–20; TEMP 36.2–37.2; O2SAT 91–97
[2024-02-12] MEDS: 0.9 % Sodium Chloride Flush 3 ML SYRINGE IVFLUSH ×4 (00:17→21:06)
[2024-02-12] MEDS: Omeprazole 20 MG CAPSULE.DR PO ×2 (06:10→16:53)
[2024-02-12] MEDS: Levothyroxine Sodium 100 MCG TABLET PO (06:10)
[2024-02-12 07:12] LABS: Hematocrit 33.9 % (37.0-47.0); Hemoglobin 10.6 g/dl (12.0-16.0); Mean Corpuscular HGB Conc 31.3 g/dl (31.0-35.0); Mean Corpuscular Hemoglobin 29.4 pg (27.0-33.0); Mean Corpuscular Volume 93.9 fL (80.0-98.0); Mean Platelet Volume 10.5 fL (9.4-12.3); Platelet Count 225 X10*3/uL (160-400); Red Blood Count 3.61 X10*6/uL (4.20-5.50); Red Cell Distribution Width 14.6 % (11.0-16.0); White Blood Count 10.9 X10*3/uL (4.8-10.8)
[2024-02-12 07:17] LABS: INTERNATIONAL NORM RATIO 1.7 (0.9-1.1); Prothrombin Time 20.6 SEC (11.1-13.3)
[2024-02-12] MEDS: Albuterol/Iprat 2.5/0.5MG 3 ML AMPUL.NEB INHALE ×3 (07:22→19:49)
[2024-02-12] MEDS: Fluticasone/Vilanterol 200/25 BLST.W.DEV 1 PUFF INHALE (07:22)
[2024-02-12 07:26] LABS: Anion Gap 10 (12-20); Blood Urea Nitrogen 14 mg/dL (9-16); Calcium 9.4 mg/dL (8.4-10.2); Carbon Dioxide 37 mmol/L (22-29); Chloride 92 mmol/L (96-108); Creatinine Clr Calc Pharmacy 47.5; Estimated Glomerular Filt Rate 57; Glucose Random 150 mg/dL (60-115); Potassium 3.1 mmol/L (3.3-5.1); Sodium 136 mmol/L (135-145)
[2024-02-12 07:53] LABS: Glucose, Whole Blood 145 mg/dL (60-115)
[2024-02-12] MEDS: Furosemide 40 MG/4 ML VIAL IVPUSH ×2 (09:10→17:23)
[2024-02-12] MEDS: Insulin Glargine,Hum.rec.anlog 100 UNIT/ML 10 ML VIAL 15 UNIT SUBCUT (09:10)
[2024-02-12] MEDS: Sertraline HCL 50 MG TABLET PO (09:11)
[2024-02-12] MEDS: Multivitamin TABLET 1 TAB PO (09:11)
[2024-02-12] MEDS: Cholecalciferol (Vitamin D3) 25 MCG TABLET 50 MCG PO (09:11)
[2024-02-12] MEDS: Potassium Chloride Packet 20 MEQ PACKET 40 MEQ PO (09:11)
[2024-02-12] MEDS: Metoprolol Tartrate 12.5 MG HALFTAB PO ×2 (09:11→21:06)
[2024-02-12] MEDS: Sucralfate 1 GM TABLET PO ×3 (09:11→16:53)
[2024-02-12] MEDS: Lactulose 20 GM/30 ML SOLUTION PO ×2 (09:11→21:06)
[2024-02-12] MEDS: guaiFENesin LA 600 MG TAB.ER.12H PO ×2 (09:11→21:05)
[2024-02-12] MEDS: Docusate Sodium 100 MG CAPSULE PO ×2 (09:11→21:06)
[2024-02-12] MEDS: Potassium Chloride/H20 10 MEQ/100 ML PIGGYBACK 100 MEQ IV (09:36)
--- NOTE | 2024-02-12 10:53 | HO.PM.IMPN ---
Subjective Subjective Date of Service: 02/12/24 Interval History: seen and evaluated this morning feels better overall as swelling decreased still on O2 supplement no overnight events Review of Systems Review of Systems: Yes all other systems are reviewed and are negative Physical Exam Vital Signs: Vital Signs: Last Vital Signs Temp 98.3 F 02/12/24 08:00 Pulse 90 02/12/24 08:00 Resp 20 02/12/24 08:00 BP 131/58 L 02/12/24 09:10 Pulse Ox 91 L 02/12/24 08:00 O2 Del Method Nasal Cannula 02/12/24 08:00 O2 Flow Rate 2 02/12/24 08:00 Oxygen Flow Rate 2 02/09/24 10:30 BMI result Body Mass Index 42.3 Const: Other: Constitutional : Awake, interactive, not in distress Neck : Normal inspection, Supple Cardiovascular : RRR, no JVP, trace lower extremity edema Respiratory : good bilateral air entry, LLL basal crackles, no wheezes or rhonchi Gastrointestinal: soft, lax, Normal bowel sounds, Non tender Skin : Warm, Dry, resolving RLE area of erythema with no significant tenderness Neurological : Alert & oriented x3, No focal deficit Objective Data Active Medications Acetaminophen (Acetaminophen 325 Mg Tablet) 650 mg PO Q6H PRN PRN Reason: Pain, Mild (Pain Scale 1-3), fever or headache Al Hydroxide/Mg Hydroxide (Magnesium Hydrox/Alum Hydrox 30 Ml Oral.Susp) 30 ml PO Q4H PRN PRN Reason: Heartburn Last Admin: 02/10/24 03:19 Dose: 30 ml Documented By: DALE Albuterol/Ipratropium (Albuterol/Iprat 2.5/0.5mg 3 Ml Ampul.Neb) 3 ml INHALE RQID [facility] Last Admin: 02/12/24 07:22 Dose: 3 ml Documented By: BRADEN Atorvastatin Calcium (Atorvastatin Calcium 20 Mg Tablet) 20 mg PO BEDTIME [facility] Last Admin: 02/11/24 22:02 Dose: 20 mg Documented By: JESSICA Benzonatate (Benzonatate 100 Mg Capsule) 100 mg PO TID PRN PRN Reason: Cough Last Admin: 02/10/24 22:10 Dose: 100 mg Documented By: DALE Calcium Carbonate (Calcium Carbonate 750 Mg Tab.Chew) 750 mg PO Q4H PRN PRN Reason: Heartburn Clonazepam (Clonazepam 0.5 Mg Tablet) 0.5 mg PO BEDTIME [facility] Last Admin: 02/11/24 22:02 Dose: 0.5 mg Documented By: JESSICA Clotrimazole (Clotrimazole 1 % Vaginal Cream 45 Gm Tube) 1 appl VAGINAL BID PRN PRN Reason: Irritation Docusate Sodium (Docusate Sodium 100 Mg Capsule) 100 mg PO BID [facility] Last Admin: 02/12/24 09:11 Dose: 100 mg Documented By: BENITO Fluticasone/Vilanterol (Fluticasone/Vilanterol 200/25 Blst.W.Dev) 1 puff INHALE RDAILY [facility] Last Admin: 02/12/24 07:22 Dose: 1 puff Documented By: BRADEN Furosemide (Furosemide 40 Mg/4 Ml Vial) 40 mg IVPUSH BID@0900,1800 [facility]; Protocol Last Admin: 02/12/24 09:10 Dose: 40 mg Documented By: BENITO Guaifenesin (Guaifenesin La 600 Mg Tab.Er.12h) 600 mg PO BID [facility] Last Admin: 02/12/24 09:11 Dose: 600 mg Documented By: BENITO Hydrocortisone (Hydrocortisone 1 % Cream 28.35 Gm Tube) 1 appl TOPICAL BID [facility]; Protocol Last Admin: 02/12/24 09:33 Dose: Not Given Documented By: BENITO Non-Admin Reason: Med Not Available Azithromycin 500 mg/ Sodium (Chloride) 250 mls @ 125 mls/hr IV Q24H [facility] Last Infusion: 02/11/24 22:04 Dose: Infused Documented By: JESSICA Ceftriaxone Sodium 1 gm/ (Sodium Chloride) 50 mls @ 100 mls/hr IV Q24H [facility] Last Infusion: 02/11/24 18:55 Dose: Infused Documented By: JESSICA Insulin Glargine (Insulin Glargine,Hum.Rec.Anlog 100 Unit/Ml 10 Ml Vial) 15 unit SUBCUT DAILY [facility] Last Admin: 02/12/24 09:10 Dose: 15 unit Documented By: BENITO Insulin Human Lispro (Insulin Lispro 100 Unit/Ml 3 Ml Vial) 0 unit SUBCUT QIDACHS [facility]; Protocol Last Admin: 02/12/24 08:15 Dose: Not Given Documented By: BENITO Non-Admin Reason: No Insulin Coverage Lactulose (Lactulose 20 Gm/30 Ml Solution) 20 gm PO BID [facility] Last Admin: 02/12/24 09:11 Dose: 20 gm Documented By: BENITO Levothyroxine Sodium (Levothyroxine Sodium 100 Mcg Tablet) 100 mcg PO DAILY@0600 [facility] Last Admin: 02/12/24 06:10 Dose: 100 mcg Documented By: GORGE Magnesium Hydroxide (Milk Of Magnesia 30 Ml Oral.Susp) 30 ml PO DAILY PRN PRN Reason: Constipation Melatonin (Melatonin 3 Mg Tablet) 6 mg PO BEDTIME PRN PRN Reason: Insomnia Metoprolol Tartrate (Metoprolol Tartrate 12.5 Mg Halftab) 12.5 mg PO BID [facility]; Protocol Last Admin: 02/12/24 09:11 Dose: 12.5 mg Documented By: BENITO Multivitamins/Vitamin C (Multivitamin Tablet) 1 tab PO DAILY [facility] Last Admin: 02/12/24 09:11 Dose: 1 tab Documented By: BENITO Omeprazole (Omeprazole 20 Mg Capsule.) 20 mg PO BID@0630,1630 [facility] Last Admin: 02/12/24 06:10 Dose: 20 mg Documented By: GORGE Ondansetron HCl (Ondansetron Hcl 4 Mg/2 Ml Vial) 4 mg IVPUSH Q8H PRN PRN Reason: Nausea and Vomiting Last Admin: 02/10/24 02:56 Dose: 4 mg Documented By: DALE Sertraline HCl (Sertraline Hcl 50 Mg Tablet) 50 mg PO DAILY [facility] Last Admin: 02/12/24 09:11 Dose: 50 mg Documented By: BENITO Sodium Chloride (0.9 % Sodium Chloride Flush 3 Ml Syringe) 3 ml IVFLUSH QSHIFT [facility] Last Admin: 02/12/24 09:09 Dose: 3 ml Documented By: BENITO Sucralfate (Sucralfate 1 Gm Tablet) 1 gm PO TIDAC [facility] Last Admin: 02/12/24 09:11 Dose: 1 gm Documented By: BENITO Triamcinolone Acetonide (Triamcinolone Acet 0.1 % Oint 15 Gm Tube) 1 appl TOPICAL BID PRN PRN Reason: Rash Vitamin D (Cholecalciferol (Vitamin D3) 25 Mcg Tablet) 50 mcg PO DAILY [facility] Last Admin: 02/12/24 09:11 Dose: 50 mcg Documented By: BENITO Warfarin Sodium (Warfarin Sodium 4 Mg Tablet) 4 mg PO DAILY@1800 [facility] Labs 02/12/24 06:43 02/12/24 06:43 Labs: Laboratory Results - last 24 hr 02/11/24 02/11/24 02/11/24 11:28 16:00 20:46 MCV MCH MCHC RDW Plt Count MPV Absolute Nucleated RBC Nucleated RBC % (auto) PT INR Anion Gap Estim Creat Clear Calc Estimated GFR POC Glucose 189 H 209 H 217 H Random Glucose Calcium 02/12/24 02/12/24 06:43 07:31 MCV 93.9 MCH 29.4 MCHC 31.3 RDW 14.6 Plt Count 225 MPV 10.5 Absolute Nucleated RBC 0.000 Nucleated RBC % (auto) 0.0 PT 20.6 H INR 1.7 H Anion Gap 10 L Estim Creat Clear Calc 47.5 Estimated GFR 57 POC Glucose 145 H Random Glucose 150 H Calcium 9.4 Assessment and Plan (1) Pneumonia: Status: Acute (2) Acute dyspnea: Status: Acute (3) CHF (congestive heart failure): Status: Acute (4) Multiple falls: Status: Acute Plan An 88 years old lady with PMH of CHF, DVT on warfarin, HTN, HLD, GERD, PAF, HLD, DMII among others who presents to the hospital complaining of increase swelling in lower extremities and SOB. Acute on chronic dCHF exacerbation improving slowly, swelling decreasing BNP trended down Change IV lasix to PO I\O , fluid restriction Hydrocortisone cream for LE erythema; stasis dermatitis Wean O2 down as tolerated Community aquired pneumonia not septic CXR showing LLL infitrates pending legionella Continue Azithromycin and Ceftriaxone physical deconditioning PT rec STR, Diabetes type 2 SSI Paroxysmal atrial fibrillation Continue MEtoprolol and warfarin INR daily Hyperlipidemia statin Mental health Continue home medications GERD Continue PPI Hypothyroidism Continue levothyroxine Morbid obesity. BMI 43, advised weight loss DVT prophylaxis warfarin The patient will need overnight hospital stay for treatment of Heart failure and pneumonia weaning down O2 requirmenet Quality Stroke Does the patient have a stroke diagnosis?: No VTE Prior VTE?: Yes VTE Risk Level:: Medical - moderate - high VTE Device Contraindication: Treatment Not Indicated VTE Drug Contraindication: N/A - Med Ordered
--- NOTE | 2024-02-12 11:16 | MHC.SL.SWA ---
Speech Pathologist Impression: Risk of Aspiration Due to: History of Pneumonia Dysphasia Diet Status: Liquid Consistency and Strategies for Safe Swallow: Liquid Intake Recommendation: Thin Liquid Intake Strategies: Small Sips No Straws Solid Food Consistency: Dietary Recommendations: Regular Additional Modifications to Solid Foods: Recommend NO STRAWS, liquids by cup sip only. Avoid tough, difficult to chew solids, take small bites and sips, chew solids thoroughly, alternate liquids and solids. Patient would benefit from intermittent supervision to assure tray is set up well for her, straws are removed, and she is oriented to food and drinks on tray. Oral Medication Intake: Whole with Liquid Please contact the pharmacy regarding appropriate crushable or liquid drug formulations that are available whenever modified delivery is recommended. Compensatory Strategies and Precautions to be Taken for Safe Swallow: Supervision While Eating and Drinking for Safe Swallow: Intermittent Supervision Foods to Avoid: Tough, difficult to chew solids Swallowing Recommended Treatments: Recommendation for Speech: Inpatient Speech Therapy Comment: Patient presents with mild oral pharyngeal dysphagia secondary to slow rate of mastication and absent swallow trigger. Oral motor presents as WFL. Recommend patient continue on current diet of REGULAR with THIN liquids (NO STRAWS, by cup sip only), pills whole with liquid. , RD notified of recommendation by secure text, RN in person. ENVIRONMENTAL PROGRAM MANAGER to f/u 1-2X, observe toleration and level independence at meal. Frequency/Duration: Date Range for Service Req: Timeline to reassess: Clean Room Technician Clinican/Clinical Fellow: No Supervisory Statement: I have reviewed and agree with the student/clinical fellow's documentation: N/A Speech Language Pathologist: Belkis Fallon M.A., [facility]-ENVIRONMENTAL PROGRAM MANAGER
[2024-02-12 11:18] LABS: Glucose, Whole Blood 263 mg/dL (60-115)
[2024-02-12] MEDS: Insulin Lispro 100 UNIT/ML 3 ML VIAL SUBCUT ×3 (11:53→21:14)
--- NOTE | 2024-02-12 12:50 | MHC.CM.PN ---
Pt accepted at [facility] for STR, CM spoke with pt and her son, Yusef, and they accept the bed, SNF is pursuing ins. auth.
--- NOTE | 2024-02-12 14:46 | P.CDIM_ITS ---
PROVIDER RESPONSE TEXT: To clarify, the appropriate diagnosis supported by the clinical indicators: Hypokalemia: acute QUERY TEXT: PHYSICIAN'S DOCUMENTATION REQUEST Date of Query: 02/12/2024 11:25 AM EDT Patient Name: Nikky Guevara Admit Date: 02/09/2024 Dear Jairon Byers, A review of the medical record indicates additional documentation may be needed. Please review below and update the documentation accordingly. Clinical Indicators: LAB FINDINGS: potassium 3.1 L Klor-Con Is there a diagnosis that correlates with the above lab findings: Hypokalemia resolved, possible, probable Labs indicate a diagnosis of (please specify) Other (explain) Clinically unable to determine (explain) Thank you, Cheryl Salinas, CCS, CDIS Use of terms such as suspected, likely, concern for, or probable (associated with a specific diagnosi s that is being evaluated, monitored, or treated as if it exists) are acceptable and can be coded in the inpatient se tting, when documented at the time of discharge. Please use your independent medical judgment in providing your response. THIS QUERY IS PART OF THE PERMANENT MEDICAL RECORD
[2024-02-12 16:48] LABS: Glucose, Whole Blood 224 mg/dL (60-115)
[2024-02-12] MEDS: Azithromycin 500 MG in 0.9 % Sodium Chloride 250 ML 125 MG IV (16:53)
[2024-02-12] MEDS: cefTRIAXone sodium 1 GM in 0.9 % Sodium Chloride 50 ML IV (17:19)
[2024-02-12] MEDS: Warfarin Sodium 4 MG TABLET PO (17:23)
[2024-02-12] MEDS: clonazePAM 0.5 MG TABLET PO (21:05)
[2024-02-12 21:06] LABS: Glucose, Whole Blood 239 mg/dL (60-115)
[2024-02-12] MEDS: Atorvastatin Calcium 20 MG TABLET PO (21:06)
[2024-02-12] MEDS: Hydrocortisone 1 % Cream 28.35 GM TUBE 1 APPL TOPICAL (22:00)
[2024-02-13] VITALS (10 sets, daily range): BP systolic 109–146; BP diastolic 58–72; PULSE 78–92; RESP 18–20; TEMP 36.1–36.7; O2SAT 86–97; BMI 40.7
[2024-02-13] MEDS: Levothyroxine Sodium 100 MCG TABLET PO (05:30)
[2024-02-13] MEDS: Acetaminophen 325 MG TABLET 650 MG PO (05:30)
[2024-02-13] MEDS: Omeprazole 20 MG CAPSULE.DR PO (05:30)
[2024-02-13 07:01] LABS: Anion Gap 15 (12-20); Blood Urea Nitrogen 16 mg/dL (9-16); Calcium 9.8 mg/dL (8.4-10.2); Carbon Dioxide 33 mmol/L (22-29); Chloride 88 mmol/L (96-108); Creatinine Clr Calc Pharmacy 48.5; Estimated Glomerular Filt Rate 60; Glucose Random 198 mg/dL (60-115); Potassium 3.4 mmol/L (3.3-5.1); Sodium 133 mmol/L (135-145)
[2024-02-13 07:06] LABS: INTERNATIONAL NORM RATIO 1.5 (0.9-1.1); Prothrombin Time 18.5 SEC (11.1-13.3)
[2024-02-13] MEDS: Fluticasone/Vilanterol 200/25 BLST.W.DEV 1 PUFF INHALE (07:32)
[2024-02-13] MEDS: Albuterol/Iprat 2.5/0.5MG 3 ML AMPUL.NEB INHALE ×2 (07:32→11:13)
[2024-02-13 07:48] LABS: Glucose, Whole Blood 189 mg/dL (60-115)
[2024-02-13] MEDS: Docusate Sodium 100 MG CAPSULE PO (08:19)
[2024-02-13] MEDS: Sucralfate 1 GM TABLET PO ×2 (08:19→11:44)
[2024-02-13] MEDS: Lactulose 20 GM/30 ML SOLUTION PO (08:19)
[2024-02-13] MEDS: guaiFENesin LA 600 MG TAB.ER.12H PO (08:19)
[2024-02-13] MEDS: Furosemide 20 MG TABLET 60 MG PO (08:20)
[2024-02-13] MEDS: Multivitamin TABLET 1 TAB PO (08:20)
[2024-02-13] MEDS: Cholecalciferol (Vitamin D3) 25 MCG TABLET 50 MCG PO (08:20)
[2024-02-13] MEDS: Insulin Glargine,Hum.rec.anlog 100 UNIT/ML 10 ML VIAL 15 UNIT SUBCUT (08:20)
[2024-02-13] MEDS: Metoprolol Tartrate 12.5 MG HALFTAB PO (08:20)
[2024-02-13] MEDS: Sertraline HCL 50 MG TABLET PO (08:20)
[2024-02-13] MEDS: Insulin Lispro 100 UNIT/ML 3 ML VIAL SUBCUT ×2 (08:21→11:43)
[2024-02-13] MEDS: 0.9 % Sodium Chloride Flush 3 ML SYRINGE IVFLUSH (08:21)
[2024-02-13] MEDS: Hydrocortisone 1 % Cream 28.35 GM TUBE 1 APPL TOPICAL (08:37)
[2024-02-13 11:02] LABS: Glucose, Whole Blood 218 mg/dL (60-115)
--- NOTE | 2024-02-13 12:53 | MHC.CM.PN ---
Second IMM 02/12. Pt is medically cleared for discharge to [facility] today. Insurance auth received for [facility]. Transportation booked for 3pm via [facility]. This CM met with pt with the assistance of a anvil worker to discuss discharge plan, pt aware and in agreement. This CM also called pts son/HCP Danny to provide an update on pt being discharged.
--- NOTE | 2024-02-13 12:54 | MHC.SL.DTX ---
Dysphagia Diet modifications: Last documented Solid diet consistencies: Regular Last documented Liquid consistency: Thin Changes made to current diet?: Yes: 1-2 f/u Liquid Consistency and Strategies: Liquid Intake Recommendation: Thin Compensatory Strategies for Safe Swallow: Small Sips No Straws Compensatory Strategies for Safe Swallow(b): Sitting Upright (90 deg) Alternate Liquids/Solids Rate of Ingestion Change Solid Food Consistency: Dietary Recommendations: Regular Additional Modifications to Solids: Recommend NO STRAWS, liquids by cup sip only. Avoid tough, difficult to chew solids, take small bites and sips, chew solids thoroughly, alternate liquids and solids. Patient would benefit from intermittent supervision to assure tray is set up well for her, straws are removed, and she is oriented to food and drinks on tray. Oral Medication Intake: Whole with Liquid Strategies and Precautions to be Taken for Safe Swallow: Sitting Upright (90 deg) Alternate Liquids/Solids Rate of Ingestion Change Supervision While Eating and/Drinking: Intermittent Supervision Foods to Avoid: Tough, difficult to chew solids Swallowing Recommended Treatments: Compens. Strategy Educat. Level of Impact on: Daily activities: None Education: None Employment: None Community: None Prognosis for Improvement: Good Recommendation for Speech: Inpatient Speech Therapy Additional Comments: Treatment: Pt was seen before lunch. She has Regular Solid and Thin Liquid snack in the room. She is pleasantly cooperative and accepts all PO trials administered to her. She tolerated Thin Liquids via straw with no overt s/s of aspiration. She tolerated bites of Regular Solid (chicken and green beans) with mild delay in mastication time with no overt s/s of aspiration. She was slow to self-administer food, so she was provided trials from her lunch tray. Pt has remained stable on her current diet and has had no new reports of difficulty swallowing. No further SCARFER OPERATOR intervention is required at this time. Please re-refer if status changes. Handbag Framer Clinican/Clinical Fellow: No Supervisory Statement: I have reviewed and agree with the student/clinical fellow's documentation: N/A Speech Language Pathologist: Tone Pichardo M.A., [facility]-SCARFER OPERATOR
--- NOTE | 2024-02-13 13:15 | P.DS_ITS ---
DS: Providers Provider Date of Service: 02/13/24 Date of admission: 02/09/24 16:16 Primary care physician: Valeri Lerner DO DS: Diagnosis Discharge Diagnosis (1) Pneumonia: Status: Acute (2) Acute dyspnea: Status: Acute (3) CHF (congestive heart failure): Status: Acute (4) Multiple falls: Status: Acute (5) Chronic anticoagulation: Status: Acute DS: Summary Hospital Course Hospital Course: Admission note HPI An 88 years old lady with PMH of CHF, DVT on warfarin, HTN, HLD, GERD, Afib, HLD , DMII among others who presents to the hospital complaining of increase swelling in lower extremities and SOB. She has been using more pillows at night to avoid dyspnea. denies No chest pain, palpitations, nausea, vomiting, or urinary symptoms. she noticed increasing the size of her legs with more than usual urine output. For the last few days she has been using her PRN O2 for comfort. also co mplaining of cough which is non-productive, LUQ pain with diarrhea for 3 times. denies any fever or chills but has generalized weakness and no energy. In ED she was found with elevated BNP of 700s and CXR showing fluid overload and possible LLL infiltrates Will be admitted for further evaluation and treatment. Hospital course - Acute on chronic dCHF exacerbation with elevated BNP and CXR showing fluids overload. Treated with IV lasix with good response as she was weaned down O2 supplement but continues to require O2 supplement to keep her O2 sat in 90s. Increase Lasix to 60 mg daily with fluid restriction. - Right lower extremity erythema; likely due to stasis dermatitis. improved with hydrocortisone cream. - Community aquired pneumonia, not septic, CXR showing LLL infitrates, pending legionella antigen, Treated with IV Azithromycin and Ceftriaxoneand weaned down Oxygen supplement. To discharge on 5 more days of Azithromycin and Ceftin - physical deconditioning. PT recommended short term rehab placement - INR dropped to lowest of 1.5. Warfarin dose increased to 4 mg for the last 2 doses. To continue with 3 mg for the next 3 days and recheck INR with goal 1.7-2 Discharge plan Increase Lasix to 60 mg daily Continue Warfarin 3 mg daily for the next 3 days and follow INR Continue Azithromycin and Ceftin for 5 more days Time Attestation Discharge Coordination Time (in mins): 42 Quality: Safe Use of Opioids Does Pt have an Active Cancer Diagnosis on the Problem List?: No Quality: Stroke Does the patient have a stroke diagnosis?: No Physical Exam Vital Signs: Vital Signs: Last Vital Signs Temp 97.0 F 02/13/24 11:17 Pulse 80 02/13/24 11:17 Resp 20 02/13/24 11:17 BP 109/72 02/13/24 11:17 Pulse Ox 92 02/13/24 13:07 O2 Del Method Nasal Cannula 02/13/24 12:05 O2 Flow Rate 1 02/13/24 12:05 Oxygen Flow Rate 2 02/09/24 10:30 BMI result Body Mass Index 40.7 Const: Other: Constitutional : Awake, interactive, not in distress Neck : Normal inspection, Supple Cardiovascular : RRR, no JVP, trace lower extremity edema Respiratory : good bilateral air entry, LLL basal crackles, no wheezes or rhonchi, On O2 supplement Gastrointestinal: soft, lax, Normal bowel sounds, Non tender Skin : Warm, Dry, resolving RLE area of erythema with no significant tenderness Neurological : Alert & oriented to self and place, No focal deficit DS: Data Data Completed and Pending Labs on day of discharge: Laboratory Results - last 24 hr 02/12/24 02/12/24 02/13/24 16:44 21:02 06:04 Hold Purple Top SEE NOTE PT 18.5 H INR 1.5 H Sodium 133 L Potassium 3.4 Chloride 88 L Carbon Dioxide 33 H Anion Gap 15 BUN 16 Creatinine 0.89 Estim Creat Clear Calc 48.5 Estimated GFR 60 POC Glucose 224 H 239 H Random Glucose 198 H Calcium 9.8 02/13/24 02/13/24 07:15 10:50 Hold Purple Top PT INR Sodium Potassium Chloride Carbon Dioxide Anion Gap BUN Creatinine Estim Creat Clear Calc Estimated GFR POC Glucose 189 H 218 H Random Glucose Calcium Imaging Chest x-ray: Radiologist's impression: ITS Impressions Chest X-Ray 02/09/24 11:15 IMPRESSION: New focal consolidative airspace opacities in the left lower lung with associated small left pleural effusion. Findings are concerning for pneumonia in the appropriate clinical context. Recommend short-term follow-up to ensure appropriate resolution. Discharge Plan Discharge Anticipated Discharge Date/Time: 02/13/24 13:06 Patient Disposition: [facility] SNF Discharge Diagnosis: Pneumonia Heart failure Falls Referrals: [facility] [Outside] - 1 Week Valeri Lerner DO [Primary Care Provider] - 1 Week Discharge Medications: New furosemide 20 mg Tablet 60 mg PO DAILY Qty: 90 0RF Protocol: Hold for SBP< HOLD for SBP < : 90 lactulose 20 gram/30 mL Solution 20 g PO DAILY Qty: 1200 0RF guaifenesin [Mucinex] 600 mg Tablet Extended Release 12hr 600 mg PO BID Qty: 20 0RF azithromycin 500 mg tablet 500 mg PO DAILY 5 Days Qty: 5 0RF cefuroxime axetil 500 mg tablet 500 mg PO BID Qty: 10 0RF Continued warfarin 3 mg Tablet 1.5 - 3 mg PO DAILY insulin lispro [Humalog KwikPen Insulin] 100 unit/mL insulin pen 8 unit subcut TIDAC Protocol: Insulin Correction Scale Less than or equal to 110 ---- Give (units): 0 111 to 150 Give (units): 0 151 to 200 Give (units): 2 201 to 250 Give (units): 4 251 to 300 Give (units): 6 301 to 350 Give (units): 8 Greater than 350 Give (units): 10 Call MD if Blood Glucose > : 350 metformin 500 mg tablet extended release 24 hr 500 mg PO BIDWM ipratropium-albuterol 0.5 mg-3 mg(2.5 mg base)/3 mL Solution For Nebulization 3 ml INHALATION QID PRN (Reason: SOB/Cough/Wheezing) sucralfate 1 gram Tablet 1 g PO TIDAC clotrimazole 1 % Cream 1 appl VAGINAL BID PRN (Reason: Irritation) acetaminophen 650 mg Tablet Extended Release 650 mg PO Q8H PRN (Reason: Pain/Fever) betamethasone valerate 0.1 % Cream 1 appl TOPICAL BID PRN (Reason: dryness) triamcinolone acetonide 0.1 % Ointment 1 appl TOPICAL BID PRN (Reason: Rash) tramadol 50 mg tablet 50 mg PO Q6H PRN (Reason: pain) Qty: 20 0RF (DME) pen needle, diabetic 32 gauge x 5/32 needle See Rx Instructions .ROUTE .MEDSUPPLY Qty: 50 Rx Instructions: As directed cholecalciferol (vitamin D3) 50 mcg (2,000 unit) tablet 50 mcg PO DAILY sertraline 50 mg tablet 50 mg PO DAILY fluticasone propionate 50 mcg/actuation spray,suspension 2 spray intranasal DAILY omeprazole 20 mg capsule,delayed release(DR/EC) 20 mg PO BID@0630,1630 fluticasone propion-salmeterol 500-50 mcg/dose blister with device 1 inh inhalation BID levothyroxine 100 mcg tablet 100 mcg PO DAILY@0600 (DME) lancets Misc See Rx Instructions .ROUTE .MEDSUPPLY Qty: 100 Rx Instructions: As directed (DME) blood sugar diagnostic Strip See Rx Instructions Not Applicable BID Qty: 10 Rx Instructions: As directed atorvastatin 20 mg tablet 20 mg PO BEDTIME metoprolol tartrate 25 mg tablet 12.5 mg PO BID Tab-A-Judith Multivitamin w-iron 15 mg iron- 400 mcg tablet 1 tab PO QAM Lantus Solostar U-100 Insulin 100 unit/mL (3 mL) insulin pen 25 unit subcut DAILY Qty: 15 5RF (DME) Sidestream Misc See Rx Instructions .ROUTE DIRECTED Qty: 1 Rx Instructions: As directed docusate sodium 100 mg capsule 100 mg PO BID clonazepam 0.5 mg tablet 0.5 mg PO BEDTIME solifenacin 5 mg tablet 5 mg PO DAILY Discontinued furosemide 40 mg tablet 40 mg PO DAILY Discharge Orders: Discharge Order (Routine); Ordered 02/13/24 Ordered By: Jairon Byers Diet: Advance to usual diet Activity on Discharge: As tolerated Stand Alone Forms: Patient Portal Discharge page Print Language: Kinyarwanda Care Plan Goals: Increase Lasix to 60 mg daily Continue Warfarin 3 mg daily for the next 3 days and follow INR Continue Azithromycin and Ceftin for 5 more days Health Concerns: Read below Plan of Treatment: Read below Assessment: Read below
[2024-02-13] MEDS: Warfarin Sodium 4 MG TABLET PO (14:13)
[2024-02-16 06:27] LABS: Legionella Ag Urine Not Detected (Not Detected)
== END 2024-02-13 16:43 | disposition skilled nursing facility (03) | DRG 193 ==
LOC: HO.ED 11:51 → HO.EDOVER 16:21 → HO.IMC 16:56
PROVIDERS: Admitting Provider Student in an Organized Health Care Education/Training Program; Emergency Provider Emergency Medicine; PCP Family Medicine; Visit Provider Student in an Organized Health Care Education/Training Program
DX: J18.9 Pneumonia, unspecified organism (principal); I50.33 Acute on chronic diastolic (congestive) heart failure; Z68.41 Body mass index [BMI] 40.0-44.9, adult; I11.0 Hypertensive heart disease with heart failure; E87.6 Hypokalemia; I25.10 Atherosclerotic heart disease of native coronary artery without angina pectoris; E03.9 Hypothyroidism, unspecified; I48.0 Paroxysmal atrial fibrillation; E78.5 Hyperlipidemia, unspecified; F41.9 Anxiety disorder, unspecified; E66.01 Morbid (severe) obesity due to excess calories; K21.9 Gastro-esophageal reflux disease without esophagitis; I87.2 Venous insufficiency (chronic) (peripheral); R29.6 Repeated falls; E11.42 Type 2 diabetes mellitus with diabetic polyneuropathy; R53.81 Other malaise; Z87.891 Personal history of nicotine dependence; Z86.718 Personal history of other venous thrombosis and embolism; Z79.4 Long term (current) use of insulin; Z79.01 Long term (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; Z79.52 Long term (current) use of systemic steroids; Z79.890 Hormone replacement therapy; Z79.899 Other long term (current) drug therapy
CPT/HCPCS: 36415; 71045; 80048; 80076; 82947; 83036; 83690; 83735; 83880; 84484; 85025; 85027; 85610; 87449; 92526; 92610; 93005; 94640; 97162; 99285; J0456; J0696; J1940; J2405; J2470; J3480

== ENCOUNTER → 2024-02-09 10:26 | Outpatient (BNV) | payer OTHER, SELFPAY | PROVIDERS: Admitting Provider Student in an Organized Health Care Education/Training Program; Emergency Provider Emergency Medicine; PCP Family Medicine; Visit Provider Internal Medicine Cardiovascular Disease | DX: I50.9 Heart failure, unspecified (principal) | CPT/HCPCS: 93010 ==

== ENCOUNTER → 2024-02-09 11:05 | Outpatient (BNV) | payer OTHER, SELFPAY | PROVIDERS: Emergency Provider Emergency Medicine; PCP Family Medicine; Visit Provider Student in an Organized Health Care Education/Training Program | DX: I50.9 Heart failure, unspecified (principal); J18.9 Pneumonia, unspecified organism; R06.00 Dyspnea, unspecified; R29.6 Repeated falls; Z79.01 Long term (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 | CPT/HCPCS: 99223; 99232; 99233; 99239 ==

== ENCOUNTER 2024-03-11 20:50 | Emergency (ER) | payer OTHER, SELFPAY ==
[2024-03-11 21:16] VITALS: BP 136/53; PULSE 83; RESP 18; TEMP 36.4; O2SAT 94; BMI 38.3
[2024-03-11 22:48] LABS: Glucose, Whole Blood 151 mg/dL (60-115)
[2024-03-11 22:50] LABS: MANUAL DIFF FLAG NO
[2024-03-11 22:52] LABS: Basophils Percent Auto 0.4 % (0-2); Eosinophils Absolute Auto 0.7 X10*3/uL (0.0-0.4); Eosinophils Percent Auto 9.1 % (0-4); Hemoglobin 11.6 g/dl (12.0-16.0); Imm Gran Abs Auto 0.02 X10*3/uL (0.00-0.03); Imm Gran Pct Auto 0.3 % (0.0-0.4); Lymphocytes Absolute Auto 2.4 X10*3/uL (1.2-4.9); Lymphocytes Percent Auto 31.9 % (20-40); Mean Corpuscular HGB Conc 32.2 g/dl (31.0-35.0); Mean Corpuscular Hemoglobin 29.1 pg (27.0-33.0); Mean Corpuscular Volume 90.2 fL (80.0-98.0); Mean Platelet Volume 10.9 fL (9.4-12.3); Monocytes Absolute Auto 0.5 X10*3/uL (0.1-1.2); Monocytes Percent Auto 6.2 % (2-11); Neutrophils Absolute Auto 3.9 x10*3/uL (2.0-8.3); Neutrophils Percent Auto 52.1 % (45-73); Platelet Count 166 X10*3/uL (160-400); Red Blood Count 3.99 X10*6/uL (4.20-5.50); Red Cell Distribution Width 15.5 % (11.0-16.0); White Blood Count 7.5 X10*3/uL (4.8-10.8)
[2024-03-11 23:03] LABS: Anion Gap 11 (12-20); Blood Urea Nitrogen 18 mg/dL (9-16); Calcium 10.2 mg/dL (8.4-10.2); Carbon Dioxide 30 mmol/L (22-29); Chloride 106 mmol/L (96-108); Creatinine Clr Calc Pharmacy 44.4; Estimated Glomerular Filt Rate 49; Glucose Random 172 mg/dL (60-115); Potassium 3.8 mmol/L (3.3-5.1); Sodium 143 mmol/L (135-145)
[2024-03-12 00:46] VITALS: BP 128/62; PULSE 85; RESP 16; TEMP 36.8; O2SAT 97
--- NOTE | 2024-03-12 01:17 | ED.GENADULT ---
HPI - General Adult General Chief complaint: General Medical Stated complaint: elevated blood sugar Time Seen by Provider: 03/12/24 00:45 Source: patient, family, RN notes reviewed, old records reviewed and senior project engineer Mode of arrival: ambulatory Limitations: language barrier History of Present Illness ED Provider: Violeta HPI narrative: 88-year-old female presents for evaluation of ?we do not know how to give her insulin. ? Patient has a history of insulin-dependent diabetes She had previously been administered insulin flex pens which family was able to help administer However upon being discharged from [facility] yesterday, the patient was discharged with insulin syringes with needles any to be drawn up and administered Family is unsure how to properly administered the correct amount of insulin A visiting nurses supposed to be coming tomorrow to help assist with this, but in the meantime the patient has not had insulin since the night of 03/10/2024 They had to bring the patient back to [facility] for that administration The patient has no acute complaints currently Related Data Home Medications ?Medication ?Instructions ?Recorded ?Confirmed atorvastatin 20 mg tablet 20 mg PO BEDTIME 05/21/20 02/09/24 blood sugar diagnostic #10 ea 05/21/20 10/13/23 cholecalciferol (vitamin D3) 50 50 mcg PO DAILY 05/21/20 02/09/24 mcg (2,000 unit) tablet fluticasone 500 mcg-salmeterol 50 1 inh inhalation BID 05/21/20 02/09/24 mcg/dose blistr powdr for inhalation fluticasone propionate 50 2 spray intranasal DAILY 05/21/20 02/09/24 mcg/actuation nasal spray,suspension lancets #100 ea 05/21/20 10/13/23 levothyroxine 100 mcg tablet 100 mcg PO DAILY@0600 05/21/20 02/09/24 omeprazole 20 mg capsule,delayed 20 mg PO BID@0630,1630 05/21/20 02/09/24 release pen needle, diabetic 32 gauge x #50 ea 05/21/20 10/13/23 sertraline 50 mg tablet 50 mg PO DAILY 05/21/20 02/09/24 metoprolol tartrate 25 mg tablet 12.5 mg PO BID 12/17/20 02/09/24 nebulizers (Sidestream misc) #1 ea 05/14/21 10/13/23 multivitamin-iron sulfate 15 1 tab PO QAM 12/15/21 02/09/24 mg-folic acid 400 mcg tablet (Tab-A-Judith Multivitamin w-iron) insulin lispro 100 unit/mL 8 unit subcut TIDAC 06/26/22 02/09/24 subcutaneous pen (Humalog KwikPen (U-100) Insulin) metformin 500 mg tablet,extended 500 mg PO BIDWM 09/20/22 02/09/24 release 24 hr clonazepam 0.5 mg tablet 0.5 mg PO BEDTIME 04/19/23 02/09/24 docusate sodium 100 mg capsule 100 mg PO BID 04/19/23 02/09/24 solifenacin 5 mg tablet 5 mg PO DAILY 10/17/23 02/09/24 acetaminophen 650 mg 650 mg PO Q8H PRN Pain/Fever 02/09/24 02/09/24 tablet,extended release betamethasone valerate 0.1 % 1 appl topical BID PRN dryness 02/09/24 02/09/24 topical cream clotrimazole 1 % vaginal cream 1 appl vaginal BID PRN Irritation 02/09/24 02/09/24 ipratropium 0.5 mg-albuterol 3 mg 3 ml inhalation QID PRN 02/09/24 02/09/24 (2.5 mg base)/3 mL nebulization SOB/Cough/Wheezing soln sucralfate 1 gram tablet 1 g PO TIDAC 02/09/24 02/09/24 triamcinolone acetonide 0.1 % 1 appl topical BID PRN Rash 02/09/24 02/09/24 topical ointment warfarin 3 mg tablet 1.5 - 3 mg PO DAILY 02/09/24 02/09/24 Previous Rx's ?Medication ?Instructions ?Recorded insulin glargine 100 unit/mL (3 25 unit (0.25 mL) subcut DAILY #15 12/15/21 mL) subcutaneous pen (Lantus mL Solostar U-100 Insulin) azithromycin 500 mg tablet 500 mg PO DAILY 5 days #5 tabs 02/13/24 cefuroxime axetil 500 mg tablet 500 mg PO BID #10 tabs 02/13/24 furosemide 20 mg tablet 60 mg PO DAILY #90 tabs 02/13/24 guaifenesin 600 mg tablet, 600 mg PO BID #20 tabs 02/13/24 extended release 12 hr (Mucinex) lactulose 20 gram/30 mL oral 20 g (30 mL) PO DAILY #1,200 mL 02/13/24 solution tramadol 50 mg tablet 50 mg PO Q6H PRN pain #20 tabs 02/13/24 Allergies Allergy/AdvReac Type Severity Reaction Status Date / Time shellfish derived Allergy Severe Hives Verified 03/11/24 21:25 aspirin [Aspirin] Allergy Mild Gastrointestinal Verified 03/11/24 21:25 Upset ibuprofen Allergy Unknown Unknown Verified 03/11/24 21:25 oxycodone [From PERCOCET] Allergy Unknown PALPITATION Verified 03/11/24 21:25 S Robitussin Cold Cough+ Chest Allergy Intermediate hives Uncoded 02/09/24 10:39 SEAFOOD Allergy Intermediate hives Uncoded 02/09/24 10:39 Review of Systems Constitutional: Constitutional: Denies body ache(s), Denies chills, Denies fever(s) and Denies headache(s) ENT: Denies headache(s) Cardiovascular: Cardiovascular: Denies chest pain and Denies dyspnea Respiratory: Respiratory: Denies cough and Denies dyspnea Gastrointestinal: Gastrointestinal: Denies abdominal pain and Denies vomiting Musculoskeletal: Musculoskeletal: Denies back pain Integumentary/Breasts: Skin/Breast: Denies rash Neurologic: Denies headache(s) [facility] Past Medical History Medical History (Updated 03/12/24 @ 01:19 by Alvaro Mcdaniel) CHF (congestive heart failure) Pneumonia Multiple falls Acute on chronic respiratory failure with hypoxemia Weakness Urgency incontinence Menopause Well woman exam Current use of anticoagulant therapy Stenosis of carotid artery Diabetes type 2, controlled Sepsis Gastroenteritis Hypoxia Pneumonia Urinary incontinence Obesity due to excess calories Type 2 diabetes mellitus with diabetic polyneuropathy Senile cataract of left eye Essential hypertension Hyperlipemia Paroxysmal A-fib Anxiety disorder Hypothyroidism Coronary artery disease History of cerebrovascular accident Osteoarthritis Osteopenia Deep vein thrombosis Hearing loss Surgical History H/O colonoscopy H/O breast surgery S/P IVC filter History of bilateral tubal ligation Family History Family History Father Heart disease CVD (cardiovascular disease) Mother Diabetes Social History Social History Household Members: None Housing: Apartment Do you presently have visiting nurse or other home services: Yes Alcohol intake: never Patient Tobacco Use Status: Former Tobacco user Tobacco use type: Cigarette Smoked in Last 30 Days: No Use of substances other than those prescribed or required for medical reasons: No Advance Directives: Yes Advance Directives on File: Yes Advance Directives Date on File: 07/01/22 Do you have a plan to hurt others: No Plan service: No Current occupational status: unemployed Sexual orientation: Straight/Heterosexual Gender identity: Female Physical Exam ED Vital Signs: Vital Signs - 24 hr 03/11/24 21:16 03/12/24 00:46 Temperature 97.5 F 98.2 F Pulse Rate 83 85 Respiratory Rate 18 16 Blood Pressure 136/53 L 128/62 Pulse Oximetry 94 97 Oxygen Delivery Method Room Air Room Air BMI result Body Mass Index 38.3 Const General: healthy appearing, comfortable, no acute distress, alert and awake Nutritional Appearance: well nourished Orientation/consciousness: patient oriented x3 HENMT Head: Yes normocephalic and Yes atraumatic Eyes Eyelids: Yes eyelids normal Conjunctivae: conjunctivae normal Sclerae: sclerae normal Corneas: corneas normal Pupils: Equal, round and reactive pupils present EOM: EOMs intact bilaterally Neck Neck: Yes full ROM Resp Effort & Inspection: normal respiratory effort, able to speak in complete sentences and not labored Cardio Rate: regular rate Rhythm: regular rhythm GI Inspection: No distended Palpation (GI): Soft to palpation, not firm, nontender, no guarding and not rigid Skin General skin exam: elasticity normal Neuro General: patient oriented x3 Cranial nerves: Yes Equal, round and reactive pupils present and Yes Bilaterally intact EOM present Cognition (Neuro): normal cognition Extrem Other: Moving all extremities well without any obvious deformities Medical Decision Making Medical Decision Making MDM Narrative: 88-year-old female presents with family seeking insulin administration and instruction how to use insulin. The current plans for visiting nurse to be reestablished tomorrow to help assist with insulin administration. The patient has no active complaints. I had a lengthy discussion with the family regarding insulin administration, the difference between short and long-acting insulin and the patient has a sliding scale outlined by her primary doctor that I went over with family. This discussion was performed using a electrician aircraft. I reviewed the patient's insulin prescription and she has a sliding scale for her short-acting lispro/Humalog and she is prescribed Lantus/glargine 25 units at bedtime. I asked the patient's nurse to educate the patient on how to drop and administer 25 units of insulin Lantus. The patient's daughters both agree that they understand what was explained to them taking the patient home at this time. To be very clear not to mix up the short and long-acting insulin Differential Diagnosis Differential Diagnoses: The differential diagnosis associated with the presentation includes Hyperglycemia Medication noncompliance Patient education DKA Lab Data MDM Lab Attestation statement: I reviewed the patient's lab results. Patient has no leukocytosis. She has a mild normocytic anemia that is consistent with her baseline going back to last month. Patient has a hyperglycemia to 172, there was no evidence of DKA, and factor CO2 slightly elevated. Her anion gap is low. No significant electrolyte abnormalities warranting intervention at this time 03/11/24 22:46 03/11/24 22:46 Labs: Lab Results 03/11/24 03/11/24 Range/Units 22:41 22:46 WBC 7.5 (4.8-10.8) X10*3/uL RBC 3.99 L (4.20-5.50) X10*6/uL Hgb 11.6 L (12.0-16.0) g/dl Hct 36.0 L (37.0-47.0) % MCV 90.2 (80.0-98.0) fL MCH 29.1 (27.0-33.0) pg MCHC 32.2 (31.0-35.0) g/dl RDW 15.5 (11.0-16.0) % Plt Count 166 D (160-400) X10*3/uL MPV 10.9 (9.4-12.3) fL Immature Gran % (Auto) 0.3 (0.0-0.4) % Neut % (Auto) 52.1 (45-73) % Lymph % (Auto) 31.9 (20-40) % Spink % (Auto) 6.2 (2-11) % Eos % (Auto) 9.1 H (0-4) % Baso % (Auto) 0.4 (0-2) % Lymph # (Auto) 2.4 (1.2-4.9) X10*3/uL Spink # (Auto) 0.5 (0.1-1.2) X10*3/uL Eos # (Auto) 0.7 H (0.0-0.4) X10*3/uL Baso # (Auto) 0.0 (0.0-0.2) X10*3/uL Abs Immat Gran (auto) 0.02 (0.00-0.03) X10*3/uL Absolute Neuts (auto) 3.9 (2.0-8.3) x10*3/uL Absolute Nucleated RBC 0.000 (0.0-0.012) X10*3/uL Nucleated RBC % (auto) 0.0 (0.0-0.2) /100WBC Sodium 143 (135-145) mmol/L Potassium 3.8 (3.3-5.1) mmol/L Chloride 106 D (96-108) mmol/L Carbon Dioxide 30 H (22-29) mmol/L Anion Gap 11 L (12-20) BUN 18 H (9-16) mg/dL Creatinine 1.05 (0.5-1.4) mg/dL Estim Creat Clear Calc 44.4 Estimated GFR 49 POC Glucose 151 H (60-115) mg/dL Random Glucose 172 H (60-115) mg/dL Calcium 10.2 (8.4-10.2) mg/dL Discharge Plan Discharge Clinical Impression: Chronic hyperglycemia Patient Disposition: Home, Self-Care Instructions: Insulin Glargine (By injection), Insulin Lispro (By injection), How to Give an Insulin Injection (ED), Type 2 Diabetes in the Older Adult (ED) Additional Instructions: Your long-acting insulin was given tonight. This is Lantus 25 units which should be given every night Your short-acting insulin is called lispro or Humalog Please refer to the sliding scale that is highlighted on your discharge paperwork on how and when to administer this insulin Prescriptions: No Action warfarin 3 mg Tablet 1.5 - 3 mg PO DAILY insulin lispro [Humalog KwikPen Insulin] 100 unit/mL insulin pen 8 unit subcut TIDAC Protocol: Insulin Correction Scale Less than or equal to 110 ---- Give (units): 0 111 to 150 Give (units): 0 151 to 200 Give (units): 2 201 to 250 Give (units): 4 251 to 300 Give (units): 6 301 to 350 Give (units): 8 Greater than 350 Give (units): 10 Call MD if Blood Glucose > : 350 metformin 500 mg tablet extended release 24 hr 500 mg PO BIDWM ipratropium-albuterol 0.5 mg-3 mg(2.5 mg base)/3 mL Solution For Nebulization 3 ml INHALATION QID PRN (Reason: SOB/Cough/Wheezing) sucralfate 1 gram Tablet 1 g PO TIDAC clotrimazole 1 % Cream 1 appl VAGINAL BID PRN (Reason: Irritation) acetaminophen 650 mg Tablet Extended Release 650 mg PO Q8H PRN (Reason: Pain/Fever) betamethasone valerate 0.1 % Cream 1 appl TOPICAL BID PRN (Reason: dryness) triamcinolone acetonide 0.1 % Ointment 1 appl TOPICAL BID PRN (Reason: Rash) furosemide 20 mg Tablet 60 mg PO DAILY Qty: 90 0RF Protocol: Hold for SBP< HOLD for SBP < : 90 lactulose 20 gram/30 mL Solution 20 g PO DAILY Qty: 1200 0RF guaifenesin [Mucinex] 600 mg Tablet Extended Release 12hr 600 mg PO BID Qty: 20 0RF azithromycin 500 mg tablet 500 mg PO DAILY 5 Days Qty: 5 0RF cefuroxime axetil 500 mg tablet 500 mg PO BID Qty: 10 0RF tramadol 50 mg tablet 50 mg PO Q6H PRN (Reason: pain) Qty: 20 0RF (DME) pen needle, diabetic 32 gauge x 5/32 needle See Rx Instructions .ROUTE .MEDSUPPLY Qty: 50 Rx Instructions: As directed cholecalciferol (vitamin D3) 50 mcg (2,000 unit) tablet 50 mcg PO DAILY sertraline 50 mg tablet 50 mg PO DAILY fluticasone propionate 50 mcg/actuation spray,suspension 2 spray intranasal DAILY omeprazole 20 mg capsule,delayed release(DR/EC) 20 mg PO BID@0630,1630 fluticasone propion-salmeterol 500-50 mcg/dose blister with device 1 inh inhalation BID levothyroxine 100 mcg tablet 100 mcg PO DAILY@0600 (DME) lancets Misc See Rx Instructions .ROUTE .MEDSUPPLY Qty: 100 Rx Instructions: As directed (DME) blood sugar diagnostic Strip See Rx Instructions Not Applicable BID Qty: 10 Rx Instructions: As directed atorvastatin 20 mg tablet 20 mg PO BEDTIME metoprolol tartrate 25 mg tablet 12.5 mg PO BID Tab-A-Judith Multivitamin w-iron 15 mg iron- 400 mcg tablet 1 tab PO QAM Lantus Solostar U-100 Insulin 100 unit/mL (3 mL) insulin pen 25 unit subcut DAILY Qty: 15 5RF (DME) Sidestream Misc See Rx Instructions .ROUTE DIRECTED Qty: 1 Rx Instructions: As directed docusate sodium 100 mg capsule 100 mg PO BID clonazepam 0.5 mg tablet 0.5 mg PO BEDTIME solifenacin 5 mg tablet 5 mg PO DAILY Print Language: Swedish
[2024-03-12 01:30] LABS: Glucose, Whole Blood 152 mg/dL (60-115)
[2024-03-12] MEDS: Insulin Glargine,Hum.rec.anlog 100 UNIT/ML 10 ML VIAL 25 UNIT SUBCUT (01:33)
[2024-03-12 01:46] VITALS: BP 128/62; PULSE 85; RESP 16; TEMP 36.8; O2SAT 97
== END 2024-03-12 01:46 | disposition home or self-care (01) ==
PROVIDERS: Emergency Provider Emergency Medicine
DX: E11.65 Type 2 diabetes mellitus with hyperglycemia (principal); Z79.899 Other long term (current) drug therapy; Z79.4 Long term (current) use of insulin
CPT/HCPCS: 36415; 80048; 82947; 85025; 99283; 99284

== ENCOUNTER 2024-03-22 13:10 | Outpatient (AMB) | payer OTHER, SELFPAY ==
[2024-03-22 13:12] VITALS: BP 128/62; PULSE 80
--- NOTE | 2024-03-22 13:12 | MHC.OFFVIS ---
Vital Signs 03/22/24 13:12 Height 5 ft 5 in BP 128/62 Blood Pressure Location Lt brachial Position Sitting Pulse 80 Pulse Source Pulse Oximeter Intake Visit Reasons: 1 yr follow up Surveyor Helper Required: No Motors And Generators Inspector: Motors And Generators Inspector Present Allergies shellfish derived Allergy (Severe, Verified 03/22/24 13:15) Hives aspirin [Aspirin] Allergy (Mild, Verified 03/22/24 13:15) Gastrointestinal Upset ibuprofen Allergy (Unknown, Verified 03/22/24 13:15) Unknown oxycodone [From PERCOCET] Allergy (Unknown, Verified 03/22/24 13:15) PALPITATIONS Robitussin Cold Cough+ Chest Allergy (Intermediate, Uncoded 03/22/24 13:15) hives SEAFOOD Allergy (Intermediate, Uncoded 03/22/24 13:15) hives Medication List - Last Reconciled 03/22/24 by YOAN AvalosC acetaminophen ER 650 mg PO Q8H PRN atorvastatin 20 mg PO BEDTIME azithromycin 500 mg PO DAILY 5 days betamethasone valerate 0.1% 1 appl topical BID PRN blood sugar diagnostic As directed cefuroxime axetil 500 mg PO BID cholecalciferol (vitamin D3) 50 mcg PO DAILY clonazepam 0.5 mg PO BEDTIME clotrimazole 1% 1 appl vaginal BID PRN docusate sodium 100 mg PO BID fluticasone propion-salmeterol 500-50 mcg/dose 1 inh inhalation BID fluticasone propionate 50 mcg/actuation 2 sprays intranasal DAILY furosemide 60 mg See Protocol PO DAILY guaifenesin ER (Mucinex) 600 mg PO BID insulin glargine (Lantus Solostar U-100 Insulin) 25 units (0.25 mL) subcut DAILY insulin lispro (Humalog KwikPen (U-100) Insulin) 8 units See Protocol subcut TIDAC ipratropium-albuterol 0.5 mg-3 mg(2.5 mg base)/3 mL 3 mL inhalation QID PRN lactulose 20 grams (30 mL) PO DAILY lancets As directed levothyroxine 100 mcg PO DAILY@0600 metformin ER 500 mg PO BIDWM metoprolol tartrate 12.5 mg PO BID multivit-iron sulf-folic acid 15 mg iron- 400 mcg (Tab-A-Judith Multivitamin w-iron) 1 tab PO QAM nebulizers (Sidestream misc) As directed omeprazole 20 mg PO BID@0630,1630 pen needle, diabetic As directed sertraline 50 mg PO DAILY solifenacin 5 mg PO DAILY sucralfate 1 g PO TIDAC tramadol 50 mg PO Q6H PRN triamcinolone acetonide 0.1% 1 appl topical BID PRN warfarin 1.5 - 3 mg PO DAILY HPI HPI 1 yr follow up: Details: Nikky is an 88-year-old female with past medical history of hypertension, hyperlipidemia, diabetes, obesity, carotid stenosis, first-degree AV block, paroxysmal atrial fibrillation who was admitted to [facility] in January 2024 with shortness of breath and treated for Congestive heart failure and pneumonia. She now presents for follow-up. Today she reports that she has been doing better since her hospital discharge. Her breathing has improved and is near normal. She does have an intermittent cough with congestion. She is sleeping with her head of the bed partially elevated. She denies chest discomfort at rest or with activity. No heart palpitations, lightheadedness, presyncope, syncope. She did have a fall last spring due to unsteadiness. She ambulates with a walker and admits to being mostly sedentary. At this visit she is sitting in a wheelchair. Her two daughters are present. No bleeding issues reported. She is on her Coumadin and tells me that she has a nurse check her at home. Daughter assisting with Italian translation at their request. Permit signed. [facility] Medical History (Updated 03/22/24 @ 15:53 by YOAN AvalosC) CHF (congestive heart failure) Pneumonia Multiple falls Acute on chronic respiratory failure with hypoxemia Weakness Urgency incontinence Menopause Well woman exam Current use of anticoagulant therapy Stenosis of carotid artery Diabetes type 2, controlled Sepsis Gastroenteritis Hypoxia Pneumonia Urinary incontinence Obesity due to excess calories Type 2 diabetes mellitus with diabetic polyneuropathy Senile cataract of left eye Essential hypertension Hyperlipemia Paroxysmal A-fib Anxiety disorder Hypothyroidism Coronary artery disease History of cerebrovascular accident Osteoarthritis Osteopenia Deep vein thrombosis Hearing loss Surgical History H/O colonoscopy H/O breast surgery S/P IVC filter History of bilateral tubal ligation Family History Father Heart disease CVD (cardiovascular disease) Mother Diabetes Social History Household Members: None Housing: Apartment Do you presently have visiting nurse or other home services: Yes Alcohol intake: never Patient Tobacco Use Status: Former Tobacco user Tobacco use type: Cigarette Advance Directives Date on File: 07/01/22 service: No Current occupational status: unemployed Sexual orientation: Straight/Heterosexual Gender identity: Female Female Reproductive History Menstrual Age of Menarche: 10 Review of Systems Const All systems reviewed & are unremarkable except as noted in HPI and below ENT Denies dizziness Card Denies chest pain, Denies chest pain at rest, Denies chest pain with activity, Denies rapid heart rate, Denies pedal edema, Denies edema, Reports leg edema, Denies lightheadedness, Denies palpitations, Reports dyspnea, Denies dyspnea on exertion and Denies orthopnea Resp Denies cough, Reports dyspnea and Denies dyspnea on exertion GI Denies hematochezia and Denies change in stool character Musc Details: sitting in wheelchair Reports abnormal gait, Denies muscle cramps, Denies muscle weakness, Denies numbness, Denies radiating pain into limb, Denies stiffness and Denies tingling Neuro Reports abnormal gait, Denies dizziness, Denies numbness and Denies tingling Endo Denies palpitations Physical Exam Vital Signs: Last Vital Signs Pulse 80 03/22/24 13:12 BP 128/62 03/22/24 13:12 Const General: cooperative, comfortable and no acute distress Orientation/consciousness: patient oriented x3 Neck Neck: Yes normal visual inspection and Yes no JVD Resp Effort & Inspection: normal respiratory effort Auscultation: clear to auscultation bilaterally, no rales, no rhonchi and no wheezes Cardio Jugular venous distension: no JVD Rate: regular rate Rhythm: regular rhythm Heart sounds: S1 normal heart sound present, S2 normal heart sound present, no murmurs and no rubs Neuro General: patient oriented x3 Extrem General: Yes normal to inspection and No no pedal edema Psych Appearance: grossly normal Mental Status: mental status grossly normal Speech and movement: Normal speech and movement present Assessment & Plan Assessment & Plan (1) CHF (congestive heart failure): Code(s): I50.9 - Heart failure, unspecified Category: Medical Qualifiers: Heart failure chronicity: acute on chronic Heart failure type: unspecified Qualified Code(s): I50.9 - Heart failure, unspecified Plan: Evidence of Congestive heart failure during recent hospital admission. BNP 794. She was diuresed and home Lasix dose was increased. She was treated for pneumonia with antibiotic use. Last echocardiogram 10/20/2017 showed EF 55-60%, grade 2 diastolic dysfunction. Will update echocardiogram and plan to call him with results. On exam today she does have some rales in her left lower lobe and some mildly pitting edema in her legs. Patient has a pill pack from the pharmacy. Her Lasix is currently still at 40 mg daily. Will send 60 mg daily to the pharmacy. Reviewed low-salt diet, leg elevation when sitting. Signs and symptoms of heart failure reviewed with them. (2) Paroxysmal A-fib: Code(s): I48.0 - Paroxysmal atrial fibrillation Category: Medical Plan: History of paroxysmal atrial fibrillation. On metoprolol, low dose for heart rate control. She does have finding of first-degree AV block on her EKGs indicating mild degree of conduction disorder. EKG done on 02/09/2024 showed sinus rhythm with first-degree AV block, rate 97, no significant change from prior. She is on Coumadin for anticoagulation. INR goal 2-3. She tells me she has labs checked by her visiting nurse. No bleeding issues reported. (3) Heart block: Code(s): I45.9 - Conduction disorder, unspecified Category: Medical Plan: First-degree AV block noted on EKGs, not new and unchanged on last several EKGs (4) Chronic anticoagulation: Code(s): Z79.01 - retirement (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 Category: Medical Plan: As above (5) Bilateral carotid artery stenosis: Code(s): I65.23 - Occlusion and stenosis of bilateral carotid arteries Category: Medical Plan: History of carotid stenosis. Last carotid ultrasound 01/04/2023 shows right ICA 0-49% stenosis, left ICA occluded. She is on atorvastatin 20 mg daily. (6) Hyperlipemia: Code(s): E78.5 - Hyperlipidemia, unspecified Category: Medical Qualifiers: Hyperlipidemia type: pure hypercholesterolemia Qualified Code(s): E78.00 - Pure hypercholesterolemia, unspecified Plan: [place] LDL goal less than 70 in patient with diabetes and peripheral vascular disease. Labs done 08/31/2023 showed LDL 41. Continue atorvastatin. (7) Preop cardiovascular exam: Code(s): Z01.810 - Encounter for preprocedural cardiovascular examination Category: Medical Plan: Patient is scheduled for a colonoscopy on 06/25/2024. She may proceed with intermediate cardiac risk as long as her echocardiogram shows no significant abnormalities. She has a history of Congestive heart failure and fluid overload should be avoided. She has known PAF and should continue on her metoprolol. Her Coumadin can be held as required for the procedure then restarted as soon as cleared by surgeon to do so. Plan Time spent on chart review, documentation, interview and assessment Orders: Orders CA echo transthoracic complete Today Z09 - Encounter for follow-up examination after completed treatment for conditions other than malignant neoplasm Medications: New furosemide 60 mg See Protocol PO DAILY 90 tabs 5RF Coding Level of Care Code Est Pt Level 4 (33753) Diagnoses CHF (congestive heart failure) I50.9 Heart failure chronicity: acute on chronic Heart failure type: unspecified Paroxysmal A-fib I48.0 Heart block I45.9 Chronic anticoagulation Z79.01 Bilateral carotid artery stenosis I65.23 Pure hypercholesterolemia E78.00 Hyperlipidemia type: pure hypercholesterolemia Preop cardiovascular exam Z01.810 Time Spent (min) 36
== END 2024-03-22 13:49 | disposition home or self-care (01) ==
PROVIDERS: Visit Provider Nurse Practitioner Family
DX: I50.9 Heart failure, unspecified (principal); I48.0 Paroxysmal atrial fibrillation; I45.9 Conduction disorder, unspecified; Z79.01 Long term (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; I65.23 Occlusion and stenosis of bilateral carotid arteries; E78.00 Pure hypercholesterolemia, unspecified; Z01.810 Encounter for preprocedural cardiovascular examination
CPT/HCPCS: 99214

== ENCOUNTER → 2024-03-22 13:10 | Outpatient (BNVA) | payer OTHER, SELFPAY | PROVIDERS: Visit Provider Nurse Practitioner Family | DX: Z01.810 Encounter for preprocedural cardiovascular examination (principal); I11.0 Hypertensive heart disease with heart failure; I50.9 Heart failure, unspecified; I48.0 Paroxysmal atrial fibrillation; I45.9 Conduction disorder, unspecified; I65.23 Occlusion and stenosis of bilateral carotid arteries; E78.5 Hyperlipidemia, unspecified; E11.9 Type 2 diabetes mellitus without complications; E66.9 Obesity, unspecified; E78.00 Pure hypercholesterolemia, unspecified; Z79.01 Long term (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 | CPT/HCPCS: 99212 ==

== ENCOUNTER 2024-03-29 12:52 | Outpatient (REF) | payer OTHER, SELFPAY ==
--- NOTE | ~2024-03-29 | XR_ITS ---
EXAMINATION: XR CHEST, 2 VIEWS CLINICAL INFORMATION: Cough status post pneumonia. Congestive heart failure. COMPARISON: 02/09/2024 TECHNIQUE: PA and lateral views of the chest were obtained. FINDINGS: Mild bibasilar atelectasis. No consolidation or pneumothorax. Trace left pleural effusion. Cardiac silhouette is borderline enlarged. Normal mediastinal contour. Pulmonary vasculature is unremarkable. Trachea is midline. Mild multilevel degenerative spondylosis in the thoracic spine with hyperkyphosis. Chronic posttraumatic deformity at the right proximal humerus. Bilateral glenohumeral and acromioclavicular osteoarthritis. Osteopenia. XR/XR chest 2V IMPRESSION: Trace left pleural effusion. Mild bibasilar atelectasis. No acute pulmonary findings. No appreciable findings of pneumonia or pulmonary edema Electronically signed by: Aakash Robles MD 03/29/2024 03:58 PM EDT
== END 2024-03-29 12:53 | disposition home or self-care (01) ==
LOC: HO.HHCX 12:52
PROVIDERS: Visit Provider Family Medicine
DX: J18.9 Pneumonia, unspecified organism (principal); I50.9 Heart failure, unspecified
CPT/HCPCS: 71046

== ENCOUNTER 2024-04-02 15:51 | Emergency (ER) | payer OTHER, SELFPAY ==
--- NOTE | ~2024-04-02 | CT_ITS ---
EXAMINATION: CT HEAD WITHOUT CONTRAST CT CERVICAL SPINE WITHOUT CONTRAST CLINICAL INFORMATION: Neck injury. Fall. Head injury. COMPARISON: CT imaging dated 10/26/2023. Brain MR dated 03/24/2020. TECHNIQUE: Contiguous axial imaging was performed from the skullbase to vertex without intravenous administration of contrast. Multidetector helical imaging was performed through the cervical spine. This CT examination was performed using dose optimization techniques as appropriate, variously including the following: *Automated exposure control *Adjustment of mA and/or kV according to patient size (this includes techniques or standardized protocols for targeted exams where dose is matched to indication/reason for exam; i.e. extremities or head) *Use of iterative reconstruction technique DLP: 1340 mGy-cm. FINDINGS: HEAD: There is no evidence of acute intracranial hemorrhage or territorial infarction. No abnormal mass effect or midline shift is seen. No abnormal extra-axial fluid collections are identified. Moderate diffuse brain parenchymal volume loss again evident with commensurate ex vacuo prominence of the ventricles. Mild chronic white matter microangiopathy is stable. A low density lesion in the left cavernous sinus is again visible, described on prior MR imaging with surrounding osseous remodeling. There is a large high posterior right parietal scalp hematoma with surrounding soft tissue swelling, measuring up to 3 x 2 cm in size. The calvarium is intact. The mastoid air cells and visualized portions of the paranasal sinuses are well aerated. CERVICAL SPINE: No acute fracture or subluxation is identified in the cervical spine. Rightward curvature of the cervical spine evident. Shallow disc-osteophyte complex again visible at the C5-C6 level. Moderate to severe degenerative changes of the odontoid tip are grossly stable. The atlantoaxial articulation is normally maintained. The common carotid arteries have a retropharyngeal course. The paraspinal soft tissues are normal. The lung apices are clear. CT/CT cervical spine wo IV con IMPRESSION: 1. No acute intracranial pathology. Diffuse brain parenchymal volume loss. Grossly stable low-density left cavernous sinus lesion described on prior imaging. 2. Large right parietal scalp hematoma and soft tissue contusion. No calvarial fracture. 3. No evidence of acute cervical spine traumatic injury. Moderate spondylosis at the C5-C6 level. Electronically signed by: Macario Lee MD 04/02/2024 05:19 PM EDT
[2024-04-02 15:58] VITALS: BP 156/80; PULSE 86; O2SAT 98
[2024-04-02 15:59] VITALS: BP 163/74; PULSE 87; RESP 16; TEMP 36.8; O2SAT 95; BMI 41.7
--- NOTE | 2024-04-02 16:32 | ECG_ITS ---
Test Reason : FALL Blood Pressure : / mmHG Vent. Rate : 084 BPM Atrial Rate : 000 BPM P-R Int : 000 ms QRS Dur : 094 ms QT Int : 338 ms P-R-T Axes : 000 069 088 degrees QTc Int : 399 ms Accelerated Junctional rhythm Abnormal ECG When compared with ECG of 09-FEB-2024 10:33, T wave amplitude has increased in Lateral leads Referred By: Diana Ferrari Electronically Signed By:LOC KUMAR
--- NOTE | 2024-04-02 16:37 | ED_ITS ---
HPI - Fall General Chief Complaint: Fall Stated Complaint: MECHANICAL FALL +HS -THIN, LOC PER EMS Time Seen by Provider: 04/02/24 16:04 Source: patient, family and EMS Mode of arrival: EMS Limitations: no limitations History of Present Illness ED Provider: Dr. Diana Ferrari HPI Narrative: patient comes to the emergency room complaining of a fall. Patient states that earlier today she was in a hurry to get to the bathroom. Patient states that she has chronic urinary incontinence. Patient states that she leaks some urine on the way to the bathroom. Then, after she walked out of the bathroom, patient slipped and urine and fell on her right side. Patient states that she bumped her head, did not lose consciousness. Patient states that people were able to get her up and started walking. Patient takes Coumadin for DVTs and AFib. Patient denies any chest pain or shortness of breath, no headache other than localized pain in the scalp. Related Data Home Medications ?Medication ?Instructions ?Recorded ?Confirmed atorvastatin 20 mg tablet 20 mg PO BEDTIME 05/21/20 03/22/24 blood sugar diagnostic #10 ea 05/21/20 03/22/24 cholecalciferol (vitamin D3) 50 50 mcg PO DAILY 05/21/20 03/22/24 mcg (2,000 unit) tablet fluticasone 500 mcg-salmeterol 50 1 inh inhalation BID 05/21/20 03/22/24 mcg/dose blistr powdr for inhalation fluticasone propionate 50 2 spray intranasal DAILY 05/21/20 03/22/24 mcg/actuation nasal spray,suspension lancets #100 ea 05/21/20 03/22/24 levothyroxine 100 mcg tablet 100 mcg PO DAILY@0600 05/21/20 03/22/24 omeprazole 20 mg capsule,delayed 20 mg PO BID@0630,1630 05/21/20 03/22/24 release pen needle, diabetic 32 gauge x #50 ea 05/21/20 03/22/24 sertraline 50 mg tablet 50 mg PO DAILY 05/21/20 03/22/24 metoprolol tartrate 25 mg tablet 12.5 mg PO BID 12/17/20 03/22/24 nebulizers (Sidestream misc) #1 ea 05/14/21 03/22/24 multivitamin-iron sulfate 15 1 tab PO QAM 12/15/21 03/22/24 mg-folic acid 400 mcg tablet (Tab-A-Judith Multivitamin w-iron) insulin lispro 100 unit/mL 8 unit subcut TIDAC 06/26/22 03/22/24 subcutaneous pen (Humalog KwikPen (U-100) Insulin) metformin 500 mg tablet,extended 500 mg PO BIDWM 09/20/22 03/22/24 release 24 hr clonazepam 0.5 mg tablet 0.5 mg PO BEDTIME 04/19/23 03/22/24 docusate sodium 100 mg capsule 100 mg PO BID 04/19/23 03/22/24 solifenacin 5 mg tablet 5 mg PO DAILY 10/17/23 03/22/24 acetaminophen 650 mg 650 mg PO Q8H PRN Pain/Fever 02/09/24 03/22/24 tablet,extended release betamethasone valerate 0.1 % 1 appl topical BID PRN dryness 02/09/24 03/22/24 topical cream clotrimazole 1 % vaginal cream 1 appl vaginal BID PRN Irritation 02/09/24 03/22/24 ipratropium 0.5 mg-albuterol 3 mg 3 ml inhalation QID PRN 02/09/24 03/22/24 (2.5 mg base)/3 mL nebulization SOB/Cough/Wheezing soln sucralfate 1 gram tablet 1 g PO TIDAC 02/09/24 03/22/24 triamcinolone acetonide 0.1 % 1 appl topical BID PRN Rash 02/09/24 03/22/24 topical ointment warfarin 3 mg tablet 1.5 - 3 mg PO DAILY 02/09/24 03/22/24 Previous Rx's ?Medication ?Instructions ?Recorded insulin glargine 100 unit/mL (3 25 unit (0.25 mL) subcut DAILY #15 12/15/21 mL) subcutaneous pen (Lantus mL Solostar U-100 Insulin) azithromycin 500 mg tablet 500 mg PO DAILY 5 days #5 tabs 02/13/24 cefuroxime axetil 500 mg tablet 500 mg PO BID #10 tabs 02/13/24 guaifenesin 600 mg tablet, 600 mg PO BID #20 tabs 02/13/24 extended release 12 hr (Mucinex) lactulose 20 gram/30 mL oral 20 g (30 mL) PO DAILY #1,200 mL 02/13/24 solution tramadol 50 mg tablet 50 mg PO Q6H PRN pain #20 tabs 02/13/24 furosemide 20 mg tablet 60 mg PO DAILY #90 tabs 03/22/24 Allergies Allergy/AdvReac Type Severity Reaction Status Date / Time shellfish derived Allergy Severe Hives Verified 04/02/24 16:01 aspirin [Aspirin] Allergy Mild Gastrointestinal Verified 04/02/24 16:01 Upset ibuprofen Allergy Unknown Unknown Verified 04/02/24 16:01 oxycodone [From PERCOCET] Allergy Unknown PALPITATION Verified 04/02/24 16:01 S Robitussin Cold Cough+ Chest Allergy Intermediate hives Uncoded 03/22/24 13:15 SEAFOOD Allergy Intermediate hives Uncoded 03/22/24 13:15 Review of Systems 2 Review of Systems: Constitutional : No Weight loss, No Fever, No Chills, No Night Sweats, No Fatigue, No Malaise ENT/Mouth : No Hearing loss, No Ear Pain, No Nasal Congestion, No Sinus Pain, No Hoarseness, No sore throat, No Rhinorrhea, No Swallowing Difficulty Eyes: No Eye Pain, No Swelling, No Redness, No Foreign Body, No Discharge, No Vision Changes Cardiovascular : No Chest Pain, No SOB, No Dyspnea on Exertion, No Orthopnea, No Edema, No Palpitations Respiratory : No Cough, No Sputum, No Wheezing, No Smoke Exposure, No Dyspnea Gastrointestinal : No Nausea, No Vomiting, No Diarrhea, No Constipation, No abdominal Pain, No Hematochezia, No Melena Genitourinary : no irregular bleeding, No Dysuria, No Urinary Frequency, No Hematuria, No Urinary Incontinence, No Urgency, No Flank Pain, No Urinary Flow Changes, No Hesitancy Musculoskeletal : No joint pain, No Myalgias, No Joint Swelling Skin : Complaining of a bump in her scalp from a fall,No Skin Lesions, No rash Neuro : No Weakness, No Numbness, No Paresthesias, No Loss of Consciousness, No Dizziness, No Headache Psych : No Anxiety/Panic, No Depression, No SI/HI/AH/VH, No Social Issues, Heme/Lymph: No Bruising, No Bleeding,No Lymphadenopathy Endocrine : No Polyuria, No Polydipsia, No Temperature Intolerance PMFSH Past Medical History Medical History (Updated 04/02/24 @ 18:23 by Diana Ferrari MD) CHF (congestive heart failure) Pneumonia Multiple falls Acute on chronic respiratory failure with hypoxemia Weakness Urgency incontinence Menopause Well woman exam Current use of anticoagulant therapy Stenosis of carotid artery Diabetes type 2, controlled Sepsis Gastroenteritis Hypoxia Pneumonia Urinary incontinence Obesity due to excess calories Type 2 diabetes mellitus with diabetic polyneuropathy Senile cataract of left eye Essential hypertension Hyperlipemia Paroxysmal A-fib Anxiety disorder Hypothyroidism Coronary artery disease History of cerebrovascular accident Osteoarthritis Osteopenia Deep vein thrombosis Hearing loss Surgical History H/O colonoscopy H/O breast surgery S/P IVC filter History of bilateral tubal ligation Family History Family History Father Heart disease CVD (cardiovascular disease) Mother Diabetes Social History Social History Household Members: None Housing: Apartment Do you presently have visiting nurse or other home services: Yes Alcohol intake: never Patient Tobacco Use Status: Former Tobacco user Tobacco use type: Cigarette Advance Directives: Yes Advance Directives on File: Yes Advance Directives Date on File: 07/01/22 Do you have a plan to hurt others: No Plan service: No Current occupational status: unemployed Sexual orientation: Straight/Heterosexual Gender identity: Female Physical Exam 2 Vital Signs: Vital Signs: Last Vital Signs Temp 98.9 F 04/02/24 18:02 Pulse 84 04/02/24 18:02 Resp 20 04/02/24 18:02 BP 153/69 H 04/02/24 18:02 Pulse Ox 94 04/02/24 18:02 O2 Del Method Room Air 04/02/24 18:02 BMI result Body Mass Index 41.7 Const: Other: Appearance: Alert. Oriented X3. No acute distress. Eyes: Pupils equal, round and reactive to light. ENT: Pharynx normal. Neck: on C-spine precautions, no palpable step-offs, no cervical spine tenderness to palpation CVS: Normal heart rate and rhythm. Pulses normal. Normal S1 and S2 Respiratory: No respiratory distress. Breath sounds normal. No Wheezing. No rales Abdomen: Soft and nontender. No rigidity. No distention. Skin: Skin warm and dry. Normal skin color. Normal skin turgor. small ecchymosis on the scalp, patient has small abrasion, no laceration, no stitches or homa needed Extremities: No lower extremity edema. No Lacerations. No Rash Neuro: Oriented X 3. No motor deficit. No sensory deficit. Moving all extremities. No slurred speech. CN 2 through 12 grossly intact Psych: calm, cooperative, normal affect Course Course Course Narrative: - patient's head CT and cervical spine CT pending - labs including INR pending - patient was given p.o. acetaminophen Medical Decision Making Medical Decision Making [facility] Narrative: my interpretation of CT scan, no intracranial bleed or acute abnormality. - My interpretation of labs, normal hematology and chemistry - urinalysis negative for UTI - patient feels well ambulating. Patient's daughter at bedside, patient ready to be discharged home Differential Diagnosis Differential Diagnoses: The differential diagnosis associated with the presentation includes ( UTI, weakness, fall, intracranial bleed, cervical spine injury) Admission/Observation Consideration of admission/observation: Escalation of care including admission/observation considered Lab Data [facility] Lab Attestation statement: I reviewed the patient's lab results. 04/02/24 17:04 04/02/24 17:05 Labs: Lab Results 04/02/24 04/02/24 04/02/24 Range/Units 17:04 17:05 18:02 WBC 8.1 (4.8-10.8) X10*3/uL RBC 4.35 (4.20-5.50) X10*6/uL Hgb 12.1 (12.0-16.0) g/dl Hct 39.8 (37.0-47.0) % MCV 91.5 (80.0-98.0) fL MCH 27.8 (27.0-33.0) pg MCHC 30.4 L (31.0-35.0) g/dl RDW 15.5 (11.0-16.0) % Plt Count 175 (160-400) X10*3/uL MPV 10.9 (9.4-12.3) fL Immature Gran % (Auto) 0.2 (0.0-0.4) % Neut % (Auto) 71.4 (45-73) % Lymph % (Auto) 18.8 L (20-40) % [place] % (Auto) 5.5 (2-11) % Eos % (Auto) 3.7 (0-4) % Baso % (Auto) 0.4 (0-2) % Lymph # (Auto) 1.5 (1.2-4.9) X10*3/uL [place] # (Auto) 0.5 (0.1-1.2) X10*3/uL Eos # (Auto) 0.3 (0.0-0.4) X10*3/uL Baso # (Auto) 0.0 (0.0-0.2) X10*3/uL Abs Immat Gran (auto) 0.02 (0.00-0.03) X10*3/uL Absolute Neuts (auto) 5.8 (2.0-8.3) x10*3/uL Absolute Nucleated RBC 0.000 (0.0-0.012) X10*3/uL Nucleated RBC % (auto) 0.0 (0.0-0.2) /100WBC PT 35.4 H D (11.1-13.3) SEC INR 2.9 H (0.9-1.1) Sodium 143 (135-145) mmol/L Potassium 4.0 (3.3-5.1) mmol/L Chloride 102 (96-108) mmol/L Carbon Dioxide 31 H (22-29) mmol/L Anion Gap 14 (12-20) BUN 18 H (9-16) mg/dL Creatinine 1.01 (0.5-1.4) mg/dL Estim Creat Clear Calc 43.4 Estimated GFR 52 Random Glucose 224 H (60-115) mg/dL Calcium 9.9 (8.4-10.2) mg/dL Total Bilirubin 0.3 (0.0-1.0) mg/dL Direct Bilirubin 0.1 (0.0-0.5) mg/dL AST 19 (5-31) U/L ALT 11 (0-31) U/L Alkaline Phosphatase 113 (39-117) U/L Total Protein 8.2 H (6.5-8.0) g/dL Albumin 3.7 (3.5-5.0) g/dL Urine Color Yellow Urine Appearance Clear Urine pH 6.5 (5.0-9.0) Ur Specific [place] 1.010 (1.005-1.025) Urine Protein Negative (Neg-Trace) mg/dL Urine Glucose (UA) Negative (Negative) mg/dL Urine Ketones Negative (Negative) mg/dL Urine Blood Negative (Negative) Urine Nitrite Negative (Negative) Ur Leukocyte Esterase Negative (Negative) Independent Interpretation I performed an independent interpretation of an: CT Scan Radiology Impression Discussion of test interpretation with radiology: I have reviewed the radiologist's reading. Radiologist Impression: HEAD: There is no evidence of acute intracranial hemorrhage or territorial infarction. No abnormal mass effect or midline shift is seen. No abnormal extra-axial fluid collections are identified. Moderate diffuse brain parenchymal volume loss again evident with commensurate ex vacuo prominence of the ventricles. Mild chronic white matter microangiopathy is stable. A low density lesion in the left cavernous sinus is again visible, described on prior MR imaging with surrounding osseous remodeling. There is a large high posterior right parietal scalp hematoma with surrounding soft tissue swelling, measuring up to 3 x 2 cm in size. The calvarium is intact. The mastoid air cells and visualized portions of the paranasal sinuses are well aerated. CERVICAL SPINE: No acute fracture or subluxation is identified in the cervical spine. Rightward curvature of the cervical spine evident. Shallow disc-osteophyte complex again visible at the C5-C6 level. Moderate to severe degenerative changes of the odontoid tip are grossly stable. The atlantoaxial articulation is normally maintained. The common carotid arteries have a retropharyngeal course. The paraspinal soft tissues are normal. The lung apices are clear. CT/CT cervical spine wo IV con IMPRESSION: 1. No acute intracranial pathology. Diffuse brain parenchymal volume loss. Grossly stable low-density left cavernous sinus lesion described on prior imaging. 2. Large right parietal scalp hematoma and soft tissue contusion. No calvarial fracture. 3. No evidence of acute cervical spine traumatic injury. Moderate spondylosis at the C5-C6 level. Critical Care Time Critical Care Time Critical Care Time: Yes Total Critical Care Time: 30 Attestation: I have personally provided critical care time. Time includes review of lab data, radiology results, discussion with consultants, and monitoring for potential decompensation. Intervention performed as documented. Discharge Plan Discharge Clinical Impression: Fall, Scalp bruising Patient Disposition: Home, Self-Care Instructions: Fall Prevention (ED), Contusion in Adults (ED) Additional Instructions: your INR is 2.9. Continue taking your current dose of warfarin ( Coumadin). Please follow-up with your primary care physician tomorrow. If you have any worsening or new symptoms, please return to the emergency room or call 911 Prescriptions: No Action warfarin 3 mg Tablet 1.5 - 3 mg PO DAILY insulin lispro [Humalog KwikPen Insulin] 100 unit/mL insulin pen 8 unit subcut TIDAC Protocol: Insulin Correction Scale Less than or equal to 110 ---- Give (units): 0 111 to 150 Give (units): 0 151 to 200 Give (units): 2 201 to 250 Give (units): 4 251 to 300 Give (units): 6 301 to 350 Give (units): 8 Greater than 350 Give (units): 10 Call MD if Blood Glucose > : 350 metformin 500 mg tablet extended release 24 hr 500 mg PO BIDWM ipratropium-albuterol 0.5 mg-3 mg(2.5 mg base)/3 mL Solution For Nebulization 3 ml INHALATION QID PRN (Reason: SOB/Cough/Wheezing) sucralfate 1 gram Tablet 1 g PO TIDAC clotrimazole 1 % Cream 1 appl VAGINAL BID PRN (Reason: Irritation) acetaminophen 650 mg Tablet Extended Release 650 mg PO Q8H PRN (Reason: Pain/Fever) betamethasone valerate 0.1 % Cream 1 appl TOPICAL BID PRN (Reason: dryness) triamcinolone acetonide 0.1 % Ointment 1 appl TOPICAL BID PRN (Reason: Rash) lactulose 20 gram/30 mL Solution 20 g PO DAILY Qty: 1200 0RF guaifenesin [Mucinex] 600 mg Tablet Extended Release 12hr 600 mg PO BID Qty: 20 0RF azithromycin 500 mg tablet 500 mg PO DAILY 5 Days Qty: 5 0RF cefuroxime axetil 500 mg tablet 500 mg PO BID Qty: 10 0RF tramadol 50 mg tablet 50 mg PO Q6H PRN (Reason: pain) Qty: 20 0RF (DME) pen needle, diabetic 32 gauge x 5/32 needle See Rx Instructions .ROUTE .MEDSUPPLY Qty: 50 Rx Instructions: As directed cholecalciferol (vitamin D3) 50 mcg (2,000 unit) tablet 50 mcg PO DAILY sertraline 50 mg tablet 50 mg PO DAILY fluticasone propionate 50 mcg/actuation spray,suspension 2 spray intranasal DAILY omeprazole 20 mg capsule,delayed release(DR/EC) 20 mg PO BID@0630,1630 fluticasone propion-salmeterol 500-50 mcg/dose blister with device 1 inh inhalation BID levothyroxine 100 mcg tablet 100 mcg PO DAILY@0600 (DME) lancets Misc See Rx Instructions .ROUTE .MEDSUPPLY Qty: 100 Rx Instructions: As directed (DME) blood sugar diagnostic Strip See Rx Instructions Not Applicable BID Qty: 10 Rx Instructions: As directed atorvastatin 20 mg tablet 20 mg PO BEDTIME metoprolol tartrate 25 mg tablet 12.5 mg PO BID Tab-A-Judith Multivitamin w-iron 15 mg iron- 400 mcg tablet 1 tab PO QAM Lantus Solostar U-100 Insulin 100 unit/mL (3 mL) insulin pen 25 unit subcut DAILY Qty: 15 5RF (DME) Sidestream Misc See Rx Instructions .ROUTE DIRECTED Qty: 1 Rx Instructions: As directed docusate sodium 100 mg capsule 100 mg PO BID clonazepam 0.5 mg tablet 0.5 mg PO BEDTIME solifenacin 5 mg tablet 5 mg PO DAILY furosemide 20 mg tablet 60 mg PO DAILY Qty: 90 5RF Protocol: Hold for SBP< HOLD for SBP < : 90 Print Language: Sami
[2024-04-02 17:12] LABS: MANUAL DIFF FLAG NO
[2024-04-02 17:20] LABS: Basophils Percent Auto 0.4 % (0-2); Eosinophils Absolute Auto 0.3 X10*3/uL (0.0-0.4); Eosinophils Percent Auto 3.7 % (0-4); Hematocrit 39.8 % (37.0-47.0); Hemoglobin 12.1 g/dl (12.0-16.0); Imm Gran Abs Auto 0.02 X10*3/uL (0.00-0.03); Imm Gran Pct Auto 0.2 % (0.0-0.4); Lymphocytes Absolute Auto 1.5 X10*3/uL (1.2-4.9); Lymphocytes Percent Auto 18.8 % (20-40); Mean Corpuscular HGB Conc 30.4 g/dl (31.0-35.0); Mean Corpuscular Hemoglobin 27.8 pg (27.0-33.0); Mean Corpuscular Volume 91.5 fL (80.0-98.0); Mean Platelet Volume 10.9 fL (9.4-12.3); Monocytes Absolute Auto 0.5 X10*3/uL (0.1-1.2); Monocytes Percent Auto 5.5 % (2-11); Neutrophils Absolute Auto 5.8 x10*3/uL (2.0-8.3); Neutrophils Percent Auto 71.4 % (45-73); Platelet Count 175 X10*3/uL (160-400); Red Blood Count 4.35 X10*6/uL (4.20-5.50); Red Cell Distribution Width 15.5 % (11.0-16.0); White Blood Count 8.1 X10*3/uL (4.8-10.8)
[2024-04-02 17:34] LABS: INTERNATIONAL NORM RATIO 2.9 (0.9-1.1); Prothrombin Time 35.4 SEC (11.1-13.3)
[2024-04-02 17:37] LABS: Alanine Aminotransferase 11 U/L (0-31); Albumin Level 3.7 g/dL (3.5-5.0); Alkaline Phosphatase 113 U/L (39-117); Anion Gap 14 (12-20); Aspartate Amino Transferase 19 U/L (5-31); Bilirubin Direct 0.1 mg/dL (0.0-0.5); Bilirubin Total 0.3 mg/dL (0.0-1.0); Blood Urea Nitrogen 18 mg/dL (9-16); Calcium 9.9 mg/dL (8.4-10.2); Carbon Dioxide 31 mmol/L (22-29); Chloride 102 mmol/L (96-108); Creatinine Clr Calc Pharmacy 43.4; Estimated Glomerular Filt Rate 52; Glucose Random 224 mg/dL (60-115); Sodium 143 mmol/L (135-145); Total Protein 8.2 g/dL (6.5-8.0)
[2024-04-02 18:02] VITALS: BP 153/69; PULSE 84; RESP 20; TEMP 37.2; O2SAT 94
[2024-04-02 18:14] LABS: Appearance Urine Clear; Color Urine Yellow; Glucose Urine UA Negative (Negative); Leukocyte Esterase Urine Negative (Negative); Nitrite Urine Negative (Negative); PH 6.5 (5.0-9.0); Urine Blood Negative (Negative); Urine Ketones Negative (Negative); Urine Protein Negative (Neg-Trace)
[2024-04-02 19:07] VITALS: BP 153/69; PULSE 80; RESP 18; TEMP 36.8; O2SAT 98
== END 2024-04-02 19:08 | disposition home or self-care (01) ==
PROVIDERS: Emergency Provider Emergency Medicine; PCP Family Medicine
DX: S00.03XA Contusion of scalp, initial encounter (principal); R94.31 Abnormal electrocardiogram [ECG] [EKG]; M54.2 Cervicalgia; R51.9 Headache, unspecified; W01.10XA Fall on same level from slipping, tripping and stumbling with subsequent striking against unspecified object, initial encounter; Y93.89 Activity, other specified; Y92.89 Other specified places as the place of occurrence of the external cause; Y99.8 Other external cause status; Z79.899 Other long term (current) drug therapy
CPT/HCPCS: 36415; 70450; 72125; 80048; 80076; 81003; 85025; 85610; 93005; 99284; 99285

== ENCOUNTER 2024-04-11 16:02 | Emergency (ER) | payer OTHER, SELFPAY ==
[2024-04-11 16:09] VITALS: BP 183/80; PULSE 94; RESP 16; TEMP 36.9; O2SAT 97; BMI 34.4
--- NOTE | 2024-04-11 16:11 | ED.GENADULT ---
HPI - General Adult General Chief complaint: General Medical Stated complaint: raised sugar levels Time Seen by Provider: 04/11/24 21:02 Source: patient and family Mode of arrival: ambulatory Limitations: no limitations History of Present Illness ED Provider: Dr. Diana Ferrari HPI narrative: Patient comes to the emergency room complaining of high blood sugar. Patient states that she had cortisone injections done this morning, and since then her glucose has been greater than 500. Patient states that yesterday, her glucose was a bit more elevated than usual but not this high. Patient denies chest pain shortness of breath, no hematuria or dysuria, no URI symptoms. Related Data Home Medications ?Medication ?Instructions ?Recorded ?Confirmed atorvastatin 20 mg tablet 20 mg PO BEDTIME 05/21/20 03/22/24 blood sugar diagnostic #10 ea 05/21/20 03/22/24 cholecalciferol (vitamin D3) 50 50 mcg PO DAILY 05/21/20 03/22/24 mcg (2,000 unit) tablet fluticasone 500 mcg-salmeterol 50 1 inh inhalation BID 05/21/20 03/22/24 mcg/dose blistr powdr for inhalation fluticasone propionate 50 2 spray intranasal DAILY 05/21/20 03/22/24 mcg/actuation nasal spray,suspension lancets #100 ea 05/21/20 03/22/24 levothyroxine 100 mcg tablet 100 mcg PO DAILY@0600 05/21/20 03/22/24 omeprazole 20 mg capsule,delayed 20 mg PO BID@0630,1630 05/21/20 03/22/24 release pen needle, diabetic 32 gauge x #50 ea 05/21/20 03/22/2432 sertraline 50 mg tablet 50 mg PO DAILY 05/21/20 03/22/24 metoprolol tartrate 25 mg tablet 12.5 mg PO BID 12/17/20 03/22/24 nebulizers (Sidestream misc) #1 ea 05/14/21 03/22/24 multivitamin-iron sulfate 15 1 tab PO QAM 12/15/21 03/22/24 mg-folic acid 400 mcg tablet (Tab-A-Judith Multivitamin w-iron) insulin lispro 100 unit/mL 8 unit subcut TIDAC 06/26/22 03/22/24 subcutaneous pen (Humalog KwikPen (U-100) Insulin) metformin 500 mg tablet,extended 500 mg PO BIDWM 09/20/22 03/22/24 release 24 hr clonazepam 0.5 mg tablet 0.5 mg PO BEDTIME 04/19/23 03/22/24 docusate sodium 100 mg capsule 100 mg PO BID 04/19/23 03/22/24 solifenacin 5 mg tablet 5 mg PO DAILY 10/17/23 03/22/24 acetaminophen 650 mg 650 mg PO Q8H PRN Pain/Fever 02/09/24 03/22/24 tablet,extended release betamethasone valerate 0.1 % 1 appl topical BID PRN dryness 02/09/24 03/22/24 topical cream clotrimazole 1 % vaginal cream 1 appl vaginal BID PRN Irritation 02/09/24 03/22/24 ipratropium 0.5 mg-albuterol 3 mg 3 ml inhalation QID PRN 02/09/24 03/22/24 (2.5 mg base)/3 mL nebulization SOB/Cough/Wheezing soln sucralfate 1 gram tablet 1 g PO TIDAC 02/09/24 03/22/24 triamcinolone acetonide 0.1 % 1 appl topical BID PRN Rash 02/09/24 03/22/24 topical ointment warfarin 3 mg tablet 1.5 - 3 mg PO DAILY 02/09/24 03/22/24 Previous Rx's ?Medication ?Instructions ?Recorded insulin glargine 100 unit/mL (3 25 unit (0.25 mL) subcut DAILY #15 12/15/21 mL) subcutaneous pen (Lantus mL Solostar U-100 Insulin) azithromycin 500 mg tablet 500 mg PO DAILY 5 days #5 tabs 02/13/24 cefuroxime axetil 500 mg tablet 500 mg PO BID #10 tabs 02/13/24 guaifenesin 600 mg tablet, 600 mg PO BID #20 tabs 02/13/24 extended release 12 hr (Mucinex) lactulose 20 gram/30 mL oral 20 g (30 mL) PO DAILY #1,200 mL 02/13/24 solution tramadol 50 mg tablet 50 mg PO Q6H PRN pain #20 tabs 02/13/24 furosemide 20 mg tablet 60 mg PO DAILY #90 tabs 03/22/24 Allergies Allergy/AdvReac Type Severity Reaction Status Date / Time shellfish derived Allergy Severe Hives Verified 04/11/24 16:11 aspirin [Aspirin] Allergy Mild Gastrointestinal Verified 04/11/24 16:11 Upset ibuprofen Allergy Unknown Unknown Verified 04/11/24 16:11 oxycodone [From PERCOCET] Allergy Unknown PALPITATION Verified 04/11/24 16:11 S Robitussin Cold Cough+ Chest Allergy Intermediate hives Uncoded 04/11/24 16:11 SEAFOOD Allergy Intermediate hives Uncoded 04/11/24 16:11 Review of Systems Review of Systems: Constitutional : No Weight loss, No Fever, No Chills, No Night Sweats, No Fatigue, No Malaise ENT/Mouth : No Hearing loss, No Ear Pain, No Nasal Congestion, No Sinus Pain, No Hoarseness, No sore throat, No Rhinorrhea, No Swallowing Difficulty Eyes: No Eye Pain, No Swelling, No Redness, No Foreign Body, No Discharge, No Vision Changes Cardiovascular : No Chest Pain, No SOB, No Dyspnea on Exertion, No Orthopnea, No Edema, No Palpitations Respiratory : No Cough, No Sputum, No Wheezing, No Smoke Exposure, No Dyspnea Gastrointestinal : No Nausea, No Vomiting, No Diarrhea, No Constipation, No abdominal Pain, No Hematochezia, No Melena Genitourinary : no irregular bleeding, No Dysuria, No Urinary Frequency, No Hematuria, No Urinary Incontinence, No Urgency, No Flank Pain, No Urinary Flow Changes, No Hesitancy Musculoskeletal : No joint pain, No Myalgias, No Joint Swelling Skin : No Skin Lesions, No rash Neuro : No Weakness, No Numbness, No Paresthesias, No Loss of Consciousness, No Dizziness, No Headache Psych : No Anxiety/Panic, No Depression, No SI/HI/AH/VH, No Social Issues, Heme/Lymph: No Bruising, No Bleeding,No Lymphadenopathy Endocrine : Complaining of polyuria, polydipsia and high glucose PMFSH Past Medical History Medical History CHF (congestive heart failure) Pneumonia Multiple falls Acute on chronic respiratory failure with hypoxemia Weakness Urgency incontinence Menopause Well woman exam Current use of anticoagulant therapy Stenosis of carotid artery Diabetes type 2, controlled Sepsis Gastroenteritis Hypoxia Pneumonia Urinary incontinence Obesity due to excess calories Type 2 diabetes mellitus with diabetic polyneuropathy Senile cataract of left eye Essential hypertension Hyperlipemia Paroxysmal A-fib Anxiety disorder Hypothyroidism Coronary artery disease History of cerebrovascular accident Osteoarthritis Osteopenia Deep vein thrombosis Hearing loss Surgical History H/O colonoscopy H/O breast surgery S/P IVC filter History of bilateral tubal ligation Family History Family History Father Heart disease CVD (cardiovascular disease) Mother Diabetes Social History Social History Household Members: None Housing: Apartment Do you presently have visiting nurse or other home services: Yes Alcohol intake: never Patient Tobacco Use Status: Former Tobacco user Tobacco use type: Cigarette Advance Directives: Yes Advance Directives on File: Yes Advance Directives Date on File: 07/01/22 Do you have a plan to hurt others: No Plan service: No Current occupational status: unemployed Sexual orientation: Straight/Heterosexual Gender identity: Female Physical Exam ED Vital Signs: Vital Signs - 24 hr 04/11/24 16:09 04/11/24 21:12 04/12/24 00:45 Temperature 98.5 F 98.1 F 97.7 F Pulse Rate 94 90 86 Respiratory Rate 16 20 16 Blood Pressure 183/80 H 170/85 H 147/80 H Pulse Oximetry 97 95 96 Oxygen Delivery Method Room Air Room Air Room Air BMI result Body Mass Index 34.4 Const Other: Appearance: Alert. Oriented X3. No acute distress. Eyes: Pupils equal, round and reactive to light. ENT: Pharynx normal. Neck: Normal inspection. Neck supple. No lymph nodes noted. No crepitus CVS: Normal heart rate and rhythm. Pulses normal. Normal S1 and S2 Respiratory: No respiratory distress. Breath sounds normal. No Wheezing. No rales Abdomen: Soft and nontender. No rigidity. No distention. Skin: Skin warm and dry. Normal skin color. Normal skin turgor. Extremities: No lower extremity edema. No Lacerations. No Rash Neuro: Oriented X 3. No motor deficit. No sensory deficit. Moving all extremities. No slurred speech. CN 2 through 12 grossly intact Psych: calm, cooperative, normal affect Course Course Course Narrative: RME: DOne by RUTH Dias. [age] year female presents to ED for hyperglycemia. Patient states polydipsia and polyuria. Patient states glucose has been over 500 since yesterday. Primary care provider informed patient to come to the ED. Patient denies any chest pain, shortness of breath, fever, chills, abdominal pain, nausea, or vomiting. 5:06PM; GLUCOSE 511 PER LAB. PATIENT BROUGHT BACK TO THE ED ROOM 5. Medications Administered Discontinued Medications Generic Name Dose Route Start Last Admin Trade Name Elaine PRN Reason Stop Dose Admin Sodium Chloride 500 mls @ 999 mls/hr 04/11/24 21:09 04/11/24 22:07 Ns IVCONT 04/11/24 21:39 Infused .Q31M ONE Infusion Insulin Human Regular 10 unit 04/11/24 21:09 04/11/24 21:34 Insulin Regular, Human 100 Unit/Ml 10 Ml Vial IVPUSH 04/11/24 21:10 10 unit ONCE ONE Administration Insulin Human Regular 10 unit 04/11/24 23:27 04/11/24 23:42 Insulin Regular, Human 100 Unit/Ml 10 Ml Vial IVPUSH 04/11/24 23:28 10 unit ONCE ONE Administration Medical Decision Making Medical Decision Making [facility] Narrative: My interpretation of labs, hematology at baseline, chemistry shows a sodium of 134 which is normal for a glucose of 551. -patient receiving half-normal saline as patient has history of CHF, and 10 units of insulin. -patient received the 2nd dose of insulin, after 20 units of insulin and 0.5 L of fluids, patient's glucose 306 -discussed with the patient that the cortisone shot likely caused the increasing glucose levels. At this time we will not change any of her medications or doses -Patient is asymptomatic, vitals stable, patient being discharged in stable condition Differential Diagnosis Differential Diagnoses: The differential diagnosis associated with the presentation includes (Hyperglycemia) Admission/Observation Consideration of admission/observation: Escalation of care including admission/observation considered (Given patient's inability glucose levels and taking into consideration her comorbidities, observation was considered) Lab Data [facility] Lab Attestation statement: I reviewed the patient's lab results. 04/11/24 16:36 04/11/24 16:36 Labs: Lab Results 04/11/24 04/11/24 04/11/24 Range/Units 16:36 16:39 18:40 WBC 6.2 (4.8-10.8) X10*3/uL RBC 4.31 (4.20-5.50) X10*6/uL Hgb 12.3 (12.0-16.0) g/dl Hct 37.4 (37.0-47.0) % MCV 86.8 (80.0-98.0) fL MCH 28.5 (27.0-33.0) pg MCHC 32.9 (31.0-35.0) g/dl RDW 15.4 (11.0-16.0) % Plt Count 171 (160-400) X10*3/uL MPV 11.9 (9.4-12.3) fL Immature Gran % (Auto) 0.6 H (0.0-0.4) % Neut % (Auto) 85.7 H (45-73) % Lymph % (Auto) 12.7 L (20-40) % Arroyo % (Auto) 0.5 L (2-11) % Eos % (Auto) 0.2 (0-4) % Baso % (Auto) 0.3 (0-2) % Lymph # (Auto) 0.8 L (1.2-4.9) X10*3/uL Arroyo # (Auto) 0.0 L (0.1-1.2) X10*3/uL Eos # (Auto) 0.0 (0.0-0.4) X10*3/uL Baso # (Auto) 0.0 (0.0-0.2) X10*3/uL Abs Immat Gran (auto) 0.04 H (0.00-0.03) X10*3/uL Absolute Neuts (auto) 5.3 (2.0-8.3) x10*3/uL Absolute Nucleated RBC 0.000 (0.0-0.012) X10*3/uL Nucleated RBC % (auto) 0.0 (0.0-0.2) /100WBC Sodium 134 L (135-145) mmol/L Potassium 4.8 (3.3-5.1) mmol/L Chloride 97 (96-108) mmol/L Carbon Dioxide 23 (22-29) mmol/L Anion Gap 19 (12-20) BUN 24 H (9-16) mg/dL Creatinine 1.35 (0.5-1.4) mg/dL Estim Creat Clear Calc 29.2 Estimated GFR 37 POC Glucose 487 H* 475 H* (60-115) mg/dL Random Glucose 551 H* (60-115) mg/dL Calcium 10.2 (8.4-10.2) mg/dL Total Bilirubin 0.4 (0.0-1.0) mg/dL AST 31 (5-31) U/L ALT 20 (0-31) U/L Alkaline Phosphatase 150 H (39-117) U/L Total Protein 8.6 H (6.5-8.0) g/dL Albumin 3.9 (3.5-5.0) g/dL Beta-Hydroxybutyrate 0.28 H (0.02-0.27) mmol/L Urine Color Urine Appearance Urine pH (5.0-9.0) Ur Specific Garnett (1.005-1.025) Urine Protein (Neg-Trace) mg/dL Urine Glucose (UA) (Negative) mg/dL Urine Ketones (Negative) mg/dL Urine Blood (Negative) Urine Nitrite (Negative) Ur Leukocyte Esterase (Negative) Urine RBC (0-2) /HPF Urine WBC (0-5) /HPF Ur Squamous Epith Cells (0-2) /HPF Urine Bacteria (None Seen) Hyaline Casts (0-2) /LPF 04/11/24 04/11/24 04/11/24 Range/Units 21:21 21:25 22:38 WBC (4.8-10.8) X10*3/uL RBC (4.20-5.50) X10*6/uL Hgb (12.0-16.0) g/dl Hct (37.0-47.0) % MCV (80.0-98.0) fL MCH (27.0-33.0) pg MCHC (31.0-35.0) g/dl RDW (11.0-16.0) % Plt Count (160-400) X10*3/uL MPV (9.4-12.3) fL Immature Gran % (Auto) (0.0-0.4) % Neut % (Auto) (45-73) % Lymph % (Auto) (20-40) % Arroyo % (Auto) (2-11) % Eos % (Auto) (0-4) % Baso % (Auto) (0-2) % Lymph # (Auto) (1.2-4.9) X10*3/uL Arroyo # (Auto) (0.1-1.2) X10*3/uL Eos # (Auto) (0.0-0.4) X10*3/uL Baso # (Auto) (0.0-0.2) X10*3/uL Abs Immat Gran (auto) (0.00-0.03) X10*3/uL Absolute Neuts (auto) (2.0-8.3) x10*3/uL Absolute Nucleated RBC (0.0-0.012) X10*3/uL Nucleated RBC % (auto) (0.0-0.2) /100WBC Sodium (135-145) mmol/L Potassium (3.3-5.1) mmol/L Chloride (96-108) mmol/L Carbon Dioxide (22-29) mmol/L Anion Gap (12-20) BUN (9-16) mg/dL Creatinine (0.5-1.4) mg/dL Estim Creat Clear Calc Estimated GFR POC Glucose 451 H* 357 H* (60-115) mg/dL Random Glucose (60-115) mg/dL Calcium (8.4-10.2) mg/dL Total Bilirubin (0.0-1.0) mg/dL AST (5-31) U/L ALT (0-31) U/L Alkaline Phosphatase (39-117) U/L Total Protein (6.5-8.0) g/dL Albumin (3.5-5.0) g/dL Beta-Hydroxybutyrate (0.02-0.27) mmol/L Urine Color Yellow Urine Appearance Clear Urine pH 6.0 (5.0-9.0) Ur Specific Garnett 1.020 (1.005-1.025) Urine Protein 30 (1+) H (Neg-Trace) mg/dL Urine Glucose (UA) >=1000 H (Negative) mg/dL Urine Ketones Negative (Negative) mg/dL Urine Blood Negative (Negative) Urine Nitrite Negative (Negative) Ur Leukocyte Esterase Negative (Negative) Urine RBC 0-2 (0-2) /HPF Urine WBC 0-5 (0-5) /HPF Ur Squamous Epith Cells 0-2 (0-2) /HPF Urine Bacteria None Seen (None Seen) Hyaline Casts 0-2 (0-2) /LPF 04/12/24 Range/Units 00:43 WBC (4.8-10.8) X10*3/uL RBC (4.20-5.50) X10*6/uL Hgb (12.0-16.0) g/dl Hct (37.0-47.0) % MCV (80.0-98.0) fL MCH (27.0-33.0) pg MCHC (31.0-35.0) g/dl RDW (11.0-16.0) % Plt Count (160-400) X10*3/uL MPV (9.4-12.3) fL Immature Gran % (Auto) (0.0-0.4) % Neut % (Auto) (45-73) % Lymph % (Auto) (20-40) % Arroyo % (Auto) (2-11) % Eos % (Auto) (0-4) % Baso % (Auto) (0-2) % Lymph # (Auto) (1.2-4.9) X10*3/uL Arroyo # (Auto) (0.1-1.2) X10*3/uL Eos # (Auto) (0.0-0.4) X10*3/uL Baso # (Auto) (0.0-0.2) X10*3/uL Abs Immat Gran (auto) (0.00-0.03) X10*3/uL Absolute Neuts (auto) (2.0-8.3) x10*3/uL Absolute Nucleated RBC (0.0-0.012) X10*3/uL Nucleated RBC % (auto) (0.0-0.2) /100WBC Sodium (135-145) mmol/L Potassium (3.3-5.1) mmol/L Chloride (96-108) mmol/L Carbon Dioxide (22-29) mmol/L Anion Gap (12-20) BUN (9-16) mg/dL Creatinine (0.5-1.4) mg/dL Estim Creat Clear Calc Estimated GFR POC Glucose 306 H (60-115) mg/dL Random Glucose (60-115) mg/dL Calcium (8.4-10.2) mg/dL Total Bilirubin (0.0-1.0) mg/dL AST (5-31) U/L ALT (0-31) U/L Alkaline Phosphatase (39-117) U/L Total Protein (6.5-8.0) g/dL Albumin (3.5-5.0) g/dL Beta-Hydroxybutyrate (0.02-0.27) mmol/L Urine Color Urine Appearance Urine pH (5.0-9.0) Ur Specific Garnett (1.005-1.025) Urine Protein (Neg-Trace) mg/dL Urine Glucose (UA) (Negative) mg/dL Urine Ketones (Negative) mg/dL Urine Blood (Negative) Urine Nitrite (Negative) Ur Leukocyte Esterase (Negative) Urine RBC (0-2) /HPF Urine WBC (0-5) /HPF Ur Squamous Epith Cells (0-2) /HPF Urine Bacteria (None Seen) Hyaline Casts (0-2) /LPF Critical Care Time Critical Care Time Critical Care Time: Yes Total Critical Care Time: 45 Attestation: I have personally provided critical care time. Time includes review of lab data, radiology results, discussion with consultants, and monitoring for potential decompensation. Intervention performed as documented. Discharge Plan Discharge Clinical Impression: Acute hyperglycemia Patient Disposition: Home, Self-Care Instructions: Diabetic Hyperglycemia (ED) Additional Instructions: Please follow-up with your primary care physician tomorrow. If you have any worsening or new symptoms, please return to the emergency room or call 911 Prescriptions: No Action warfarin 3 mg Tablet 1.5 - 3 mg PO DAILY insulin lispro [Humalog KwikPen Insulin] 100 unit/mL insulin pen 8 unit subcut TIDA Protocol: Insulin Correction Scale Less than or equal to 110 ---- Give (units): 0 111 to 150 Give (units): 0 151 to 200 Give (units): 2 201 to 250 Give (units): 4 251 to 300 Give (units): 6 301 to 350 Give (units): 8 Greater than 350 Give (units): 10 Call MD if Blood Glucose > : 350 metformin 500 mg tablet extended release 24 hr 500 mg PO BIDWM ipratropium-albuterol 0.5 mg-3 mg(2.5 mg base)/3 mL Solution For Nebulization 3 ml INHALATION QID PRN (Reason: SOB/Cough/Wheezing) sucralfate 1 gram Tablet 1 g PO TIDAC clotrimazole 1 % Cream 1 appl VAGINAL BID PRN (Reason: Irritation) acetaminophen 650 mg Tablet Extended Release 650 mg PO Q8H PRN (Reason: Pain/Fever) betamethasone valerate 0.1 % Cream 1 appl TOPICAL BID PRN (Reason: dryness) triamcinolone acetonide 0.1 % Ointment 1 appl TOPICAL BID PRN (Reason: Rash) lactulose 20 gram/30 mL Solution 20 g PO DAILY Qty: 1200 0RF guaifenesin [Mucinex] 600 mg Tablet Extended Release 12hr 600 mg PO BID Qty: 20 0RF azithromycin 500 mg tablet 500 mg PO DAILY 5 Days Qty: 5 0RF cefuroxime axetil 500 mg tablet 500 mg PO BID Qty: 10 0RF tramadol 50 mg tablet 50 mg PO Q6H PRN (Reason: pain) Qty: 20 0RF (DME) pen needle, diabetic 32 gauge x 5/32 needle See Rx Instructions .ROUTE .MEDSUPPLY Qty: 50 Rx Instructions: As directed cholecalciferol (vitamin D3) 50 mcg (2,000 unit) tablet 50 mcg PO DAILY sertraline 50 mg tablet 50 mg PO DAILY fluticasone propionate 50 mcg/actuation spray,suspension 2 spray intranasal DAILY omeprazole 20 mg capsule,delayed release(DR/EC) 20 mg PO BID@0630,1630 fluticasone propion-salmeterol 500-50 mcg/dose blister with device 1 inh inhalation BID levothyroxine 100 mcg tablet 100 mcg PO DAILY@0600 (DME) lancets Misc See Rx Instructions .ROUTE .MEDSUPPLY Qty: 100 Rx Instructions: As directed (DME) blood sugar diagnostic Strip See Rx Instructions Not Applicable BID Qty: 10 Rx Instructions: As directed atorvastatin 20 mg tablet 20 mg PO BEDTIME metoprolol tartrate 25 mg tablet 12.5 mg PO BID Tab-A-Judith Multivitamin w-iron 15 mg iron- 400 mcg tablet 1 tab PO QAM Lantus Solostar U-100 Insulin 100 unit/mL (3 mL) insulin pen 25 unit subcut DAILY Qty: 15 5RF (DME) Sidestream Misc See Rx Instructions .ROUTE DIRECTED Qty: 1 Rx Instructions: As directed docusate sodium 100 mg capsule 100 mg PO BID clonazepam 0.5 mg tablet 0.5 mg PO BEDTIME solifenacin 5 mg tablet 5 mg PO DAILY furosemide 20 mg tablet 60 mg PO DAILY Qty: 90 5RF Protocol: Hold for SBP< HOLD for SBP < : 90 Discharge Date/Time: 04/12/24 01:08 Print Language: German
[2024-04-11 16:43] LABS: MANUAL DIFF FLAG NO
[2024-04-11 16:44] LABS: Glucose, Whole Blood 487 mg/dL (60-115)
[2024-04-11 16:58] LABS: Basophils Percent Auto 0.3 % (0-2); Eosinophils Percent Auto 0.2 % (0-4); Hematocrit 37.4 % (37.0-47.0); Hemoglobin 12.3 g/dl (12.0-16.0); Imm Gran Abs Auto 0.04 X10*3/uL (0.00-0.03); Imm Gran Pct Auto 0.6 % (0.0-0.4); Lymphocytes Absolute Auto 0.8 X10*3/uL (1.2-4.9); Lymphocytes Percent Auto 12.7 % (20-40); Mean Corpuscular HGB Conc 32.9 g/dl (31.0-35.0); Mean Corpuscular Hemoglobin 28.5 pg (27.0-33.0); Mean Corpuscular Volume 86.8 fL (80.0-98.0); Mean Platelet Volume 11.9 fL (9.4-12.3); Monocytes Percent Auto 0.5 % (2-11); Neutrophils Absolute Auto 5.3 x10*3/uL (2.0-8.3); Neutrophils Percent Auto 85.7 % (45-73); Platelet Count 171 X10*3/uL (160-400); Red Blood Count 4.31 X10*6/uL (4.20-5.50); Red Cell Distribution Width 15.4 % (11.0-16.0); White Blood Count 6.2 X10*3/uL (4.8-10.8)
[2024-04-11 17:06] LABS: Alanine Aminotransferase 20 U/L (0-31); Albumin Level 3.9 g/dL (3.5-5.0); Alkaline Phosphatase 150 U/L (39-117); Anion Gap 19 (12-20); Aspartate Amino Transferase 31 U/L (5-31); Beta-Hydroxybutyrate 0.28 mmol/L (0.02-0.27); Bilirubin Total 0.4 mg/dL (0.0-1.0); Blood Urea Nitrogen 24 mg/dL (9-16); Calcium 10.2 mg/dL (8.4-10.2); Carbon Dioxide 23 mmol/L (22-29); Chloride 97 mmol/L (96-108); Creatinine Clr Calc Pharmacy 29.2; Estimated Glomerular Filt Rate 37; Glucose Random 551 mg/dL (60-115); Potassium 4.8 mmol/L (3.3-5.1); Sodium 134 mmol/L (135-145); Total Protein 8.6 g/dL (6.5-8.0)
[2024-04-11 18:44] LABS: Glucose, Whole Blood 475 mg/dL (60-115)
[2024-04-11 21:12] VITALS: BP 170/85; PULSE 90; RESP 20; TEMP 36.7; O2SAT 95
[2024-04-11 21:29] LABS: Appearance Urine Clear; Color Urine Yellow; Glucose Urine UA >=1000 mg/dL (Negative); Leukocyte Esterase Urine Negative (Negative); Nitrite Urine Negative (Negative); UMIC TRIGGER UACC YES; Urine Blood Negative (Negative); Urine Ketones Negative (Negative); Urine Protein 30 (1+) mg/dL (Neg-Trace)
[2024-04-11] MEDS: Insulin Regular, Human 100 UNIT/ML 10 ML VIAL 10 UNIT IVPUSH ×2 (21:34→23:42)
[2024-04-11 21:35] LABS: Bacteria Urine None Seen (None Seen); Hyaline Casts Urine 0-2 /LPF (0-2); RBC Urine 0-2 /HPF (0-2); Squamous Epithelial Cell Urine 0-2 /HPF (0-2); WBC Urine 0-5 /HPF (0-5)
[2024-04-11] MEDS: 0.9 % Sodium Chloride 500 ML 999 ML IVCONT (21:35)
[2024-04-11 21:38] LABS: Glucose, Whole Blood 451 mg/dL (60-115)
[2024-04-11 22:44] LABS: Glucose, Whole Blood 357 mg/dL (60-115)
[2024-04-12 00:45] VITALS: BP 147/80; PULSE 86; RESP 16; TEMP 36.5; O2SAT 96
[2024-04-12 00:47] LABS: Glucose, Whole Blood 306 mg/dL (60-115)
== END 2024-04-12 01:08 | disposition home or self-care (01) ==
PROVIDERS: Physician Assistant; Emergency Provider Emergency Medicine; PCP Family Medicine
DX: E11.65 Type 2 diabetes mellitus with hyperglycemia (principal); I50.9 Heart failure, unspecified; R63.1 Polydipsia; R35.89 Other polyuria; Z79.4 Long term (current) use of insulin; Z79.899 Other long term (current) drug therapy; Z87.891 Personal history of nicotine dependence; Z79.01 Long term (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
CPT/HCPCS: 36415; 80053; 81001; 82010; 82947; 85025; 96361; 96374; 96376; 99283; 99284

== ENCOUNTER → 2024-05-24 14:39 | Outpatient (REF) | payer OTHER, SELFPAY ==
--- NOTE | 2024-05-24 14:44 | CA_ITS ---
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 Study Quality: Fair with Definity ECG Rhythm: Atrial Fibrillation Conclusions: - Normal left ventricular cavity size. There is normal left ventricular wall thickness. The left ventricular systolic function is mildly decreased. The visually estimated ejection fraction is between 40-45%. - E/E prime ratio is between 8 and 15 consistent with indeterminate filling pressures. - Mildly increased right ventricular cavity size. There is normal right ventricular systolic function. - The left atrium is severely dilated. Findings Left Ventricle Normal left ventricular cavity size. There is normal left ventricular wall thickness. The left ventricular systolic function is mildly decreased. The visually estimated ejection fraction is between 40-45%. Regional wall motion abnormalities can not be excluded due to suboptimal endocardial definition. There is abnormal septal motion with excessive respiratory change. Abnormal diastolic function is noted. Spectral Doppler is indicative of a pseudonormal filling pattern. E/E prime ratio is between 8 and 15 consistent with indeterminate filling pressures. Right Ventricle Mildly increased right ventricular cavity size. There is normal right ventricular systolic function. Atria The left atrium is severely dilated. Aortic Valve There is a normal trileaflet aortic valve. There is mild calcification of the aortic valve. There is no aortic valve stenosis. There is no aortic valve regurgitation. Mitral Valve The mitral valve appears normal. There is no mitral valve regurgitation. There is no mitral valve stenosis. Pulmonic Valve The pulmonic valve is likely normal. Tricuspid Valve Normal tricuspid valve structure. There is trace tricuspid valve regurgitation. Normal right atrial pressure. There is no evidence of pulmonary hypertension. Great Vessels All visible segments of the aorta are normal in size. The visualized portions of the pulmonary artery and branches are normal. Venous The inferior vena cava is normal in size and collapses greater than 50% with inspiration. Pericardium/Pleural There is no evidence of pericardial effusion. Prior Study Comparison Changes noted compared to prior study dated: 10/20/2017. EF 40-45%, mild RV dilation Measurements 2D Linear Measurements IVSd: 0.92 0.6-0.9/0.6-1.0 cm LVIDd: 4.90 3.9-5.3/4.2-5.9 cm LVIDd Index: 2.44 2.4-3.2/2.2-3.1 cm/m2 LVIDs: 3.24 2.0-3.6 cm LVPWd: 0.85 0.7-1.1 cm Ao Root: 3.30 2.1-3.5 cm LA Diam: 4.10 2.7-3.8/3.0-4.0 cm LAIDs Index: 2.04 1.5-2.3 cm/m2 LV Mass: 186.67 67-162/88-224 g LV Mass Index: 92.87 43-95/49-115 g/m2 LVOT Diam: 2.30 3.0+(-)1.3 cm 2D Systolic Function EF 4C: 50.70 >55% EF 2C: 52.80 >55% EF BiP: 48.10 >55% Mitral Valve MV Pk E: 1.30 MV Decel Time: 197.00 E'Lateral: 14.40 E'Medial: 8.16 E/E' Med: 15.90 E/E' Lat: 9.00 PHT: 58.00 MVA PHT: 3.79 Decel Briscoe: 6.57 Aortic Valve AoV Pk Hank: 1.24 AoV Mn Hank: 0.81 AoV VTI: 0.28 AoV Pk Grad: 6.00 Aov Mn Grad: 3.00 KENNY Cont.VTI: 2.21 LVOT LVOT Pk Hank: 0.68 LVOT Mn Hank: 0.43 LVOT VTI: 0.15 LVOT Pk Grad: 2.00 LVOT Mn Grad: 1.00 LVOT Diam: 2.30 LVOT Area: 4.15 Diastolic Function MV Pk E: 1.30 E'Medial: 8.16 E/E' Med: 15.90 E' Laterial: 14.40 E/E' Lat: 9.00 Right Ventricle TAPSE (mm): 21.00 Tricuspid Valve TR Pk Hank: 2.13 TR Pk Grad: 18.00 RA Press: 3.00 RVSP: 21.00 Great Vessels Aorta Ao Root-2D: 3.30 2.0-3.7 cm Ao Asc: 3.10 2.1-3.4 cm Pulmonary Valve PV Pk Hank: 0.64 Peak PV Grad: 2.00 Updated in Other Vendor System with Status of Final Jon Blancas MD electronically signed on 05/25/2024 2:07:35 PM with status of Final
== END ==
LOC: HO.CARD 14:39
PROVIDERS: PCP Family Medicine; Visit Provider Nurse Practitioner Family
DX: Z09 Encounter for follow-up examination after completed treatment for conditions other than malignant neoplasm (principal)
CPT/HCPCS: 93306; Q9957

== ENCOUNTER → 2024-05-24 14:44 | Outpatient (BNV) | payer OTHER, SELFPAY | PROVIDERS: PCP Family Medicine; Visit Provider Internal Medicine Cardiovascular Disease | DX: I48.91 Unspecified atrial fibrillation (principal) | CPT/HCPCS: 93306 ==

== ENCOUNTER 2024-07-02 10:30 | Emergency (ER) | payer OTHER, SELFPAY ==
--- NOTE | ~2024-07-02 | CT_ITS ---
EXAMINATION: CT ABDOMEN AND PELVIS WITH CONTRAST CLINICAL INFORMATION: Abdominal pain. COMPARISON: CT scans dating between July 22, 2023 and May 30, 2019. More remote prior CT scans are not currently available for technical reasons. TECHNIQUE: Multidetector volumetric images were obtained from the superior aspect of the liver through the pubic symphysis following administration 85 mL of Omnipaque 350 intravenous contrast. Sagittal and coronal reformatted images were obtained on the technologist's workstation. Oral contrast: No This CT examination was performed using dose optimization techniques as appropriate, variously including the following: *Automated exposure control *Adjustment of mA and/or kV according to patient size (this includes techniques or standardized protocols for targeted exams where dose is matched to indication/reason for exam; i.e. extremities or head) *Use of iterative reconstruction technique DLP: 1088 mGy-cm FINDINGS: Somewhat limited by motion artifact. In addition, the history provided reads only abdominal pain. It does not state exactly where or what type of pathology is suspected, limiting the study. Therefore, clinical correlation is advised. LUNG BASES: Bibasilar bronchial wall thickening. Mild bibasilar interstitial prominence. No focal infiltrate or pleural effusion identified. Heart upper normal in size to mildly enlarged. No pericardial effusion. LIVER, GALLBLADDER, AND BILIARY TREE: The liver appears unremarkable in size, shape, and attenuation. No focal hepatic lesion or biliary ductal dilatation is appreciated. Less than 5 mm, layering stones in the gallbladder neck. No evidence of gallbladder wall thickening or pericholecystic inflammatory change. PANCREAS: Fatty atrophy. Otherwise unremarkable. SPLEEN: Subcentimeter, hypodense lesions and punctate calcification, not significant changed compared with most recent prior from one year earlier. Spleen normal in size. ADRENAL GLANDS: Unremarkable KIDNEYS AND URETERS: 2.4 cm or less benign bilateral simple renal cysts for which no further dedicated follow-up imaging as indicated. The kidneys otherwise appear unremarkable in size, shape, and attenuation. No hydronephrosis, hydroureter, or calculi seen. BLADDER: Unremarkable GASTROINTESTINAL TRACT: Unremarkable appearance of the stomach and small bowel. Diverticulosis predominantly involving the sigmoid and descending colon, without evidence of diverticulitis. Normal-appearing distal ileum and vermiform appendix. ABDOMINAL WALL: Mild anasarca. No significant hernia is appreciated. LYMPH NODES: No evidence of adenopathy by size criteria. VASCULAR: Status post Dany Nitinol permanent infrarenal IVC filter placement. PELVIC VISCERA: Endometrial thickening and/or fluid measuring up to approximately 1.8 cm in total thickness, grossly similar compared with one year prior. OSSEOUS STRUCTURES: Decreased bone mineral density. Mild compression deformities of L1-2 and L3, unchanged compared with most recent prior. Mild osteoarthritis of the hips. CT/CT abdomen pelvis w IV con IMPRESSION: No acute finding. Endometrial thickening and/or fluid measuring up to approximately 1.8 cm in total thickness, grossly similar compared with one year prior. This is an abnormal finding in a patient of this age. Recommend gynecological correlation performed on a nonemergent basis. Electronically signed by: Wiliam Martinez MD 07/02/2024 04:47 PM [facility]
[2024-07-02 10:51] VITALS: BP 120/64; BP 144/63; PULSE 66; PULSE 68; RESP 16; TEMP 36.8; O2SAT 93; O2SAT 97; BMI 34.2
--- NOTE | 2024-07-02 11:06 | ED_ITS ---
HPI - General Adult General Chief complaint: Nausea/Vomiting/Diarrhea Stated complaint: ABDOMINAL PAIN Time Seen by Provider: 07/02/24 11:01 History of Present Illness HPI narrative: This is a 88 years old the patient presented to emergency department via ambulance with a chief complaint of diarrhea, she denies any vomiting she has some nausea but no vomiting. No reported fever. Symptoms started on better on Monday and then again monday she has been having diarrhea Onset (ago): day(s) (4) Radiation: non-radiation Severity: moderate Relieving factors: none Exacerbating factors: none Associated symptoms: denies other symptoms Related Data Home Medications ?Medication ?Instructions ?Recorded ?Confirmed atorvastatin 20 mg tablet 20 mg PO BEDTIME 05/21/20 03/22/24 blood sugar diagnostic #10 ea 05/21/20 03/22/24 cholecalciferol (vitamin D3) 50 50 mcg PO DAILY 05/21/20 03/22/24 mcg (2,000 unit) tablet fluticasone 500 mcg-salmeterol 50 1 inh inhalation BID 05/21/20 03/22/24 mcg/dose blistr powdr for inhalation fluticasone propionate 50 2 spray intranasal DAILY 05/21/20 03/22/24 mcg/actuation nasal spray,suspension lancets #100 ea 05/21/20 03/22/24 levothyroxine 100 mcg tablet 100 mcg PO DAILY@0600 05/21/20 03/22/24 omeprazole 20 mg capsule,delayed 20 mg PO BID@0630,1630 05/21/20 03/22/24 release pen needle, diabetic 32 gauge x #50 ea 05/21/20 03/22/24/32 sertraline 50 mg tablet 50 mg PO DAILY 05/21/20 03/22/24 metoprolol tartrate 25 mg tablet 12.5 mg PO BID 12/17/20 03/22/24 nebulizers (Sidestream misc) #1 ea 05/14/21 03/22/24 multivitamin-iron sulfate 15 1 tab PO QAM 12/15/21 03/22/24 mg-folic acid 400 mcg tablet (Tab-A-Judith Multivitamin w-iron) insulin lispro 100 unit/mL 8 unit subcut TIDAC 06/26/22 03/22/24 subcutaneous pen (Humalog KwikPen (U-100) Insulin) metformin 500 mg tablet,extended 500 mg PO BIDWM 09/20/22 03/22/24 release 24 hr clonazepam 0.5 mg tablet 0.5 mg PO BEDTIME 04/19/23 03/22/24 docusate sodium 100 mg capsule 100 mg PO BID 04/19/23 03/22/24 solifenacin 5 mg tablet 5 mg PO DAILY 10/17/23 03/22/24 acetaminophen 650 mg 650 mg PO Q8H PRN Pain/Fever 02/09/24 03/22/24 tablet,extended release betamethasone valerate 0.1 % 1 appl topical BID PRN dryness 02/09/24 03/22/24 topical cream clotrimazole 1 % vaginal cream 1 appl vaginal BID PRN Irritation 02/09/24 03/22/24 ipratropium 0.5 mg-albuterol 3 mg 3 ml inhalation QID PRN 02/09/24 03/22/24 (2.5 mg base)/3 mL nebulization SOB/Cough/Wheezing soln sucralfate 1 gram tablet 1 g PO TIDAC 02/09/24 03/22/24 triamcinolone acetonide 0.1 % 1 appl topical BID PRN Rash 02/09/24 03/22/24 topical ointment warfarin 3 mg tablet 1.5 - 3 mg PO DAILY 02/09/24 03/22/24 Previous Rx's ?Medication ?Instructions ?Recorded insulin glargine 100 unit/mL (3 25 unit (0.25 mL) subcut DAILY #15 12/15/ mL) subcutaneous pen (Lantus mL Solostar U-100 Insulin) azithromycin 500 mg tablet 500 mg PO DAILY 5 days #5 tabs 02/13/24 cefuroxime axetil 500 mg tablet 500 mg PO BID #10 tabs 02/13/24 guaifenesin 600 mg tablet, 600 mg PO BID #20 tabs 02/13/24 extended release 12 hr (Mucinex) lactulose 20 gram/30 mL oral 20 g (30 mL) PO DAILY #1,200 mL 02/13/24 solution tramadol 50 mg tablet 50 mg PO Q6H PRN pain #20 tabs 02/13/24 furosemide 20 mg tablet 60 mg PO DAILY #90 tabs 03/22/24 Allergies Allergy/AdvReac Type Severity Reaction Status Date / Time shellfish derived Allergy Severe Hives Verified 07/02/24 10:54 aspirin [Aspirin] Allergy Mild Gastrointestinal Verified 07/02/24 10:54 Upset ibuprofen Allergy Unknown Unknown Verified 07/02/24 10:54 oxycodone [From PERCOCET] Allergy Unknown PALPITATION Verified 07/02/24 10:54 S Robitussin Cold Cough+ Chest Allergy Intermediate hives Uncoded 07/02/24 10:54 SEAFOOD Allergy Intermediate hives Uncoded 07/02/24 10:54 Review of Systems 2 Constitutional: Constitutional: Reports no additional constitutional complaints Cardiovascular: Cardiovascular: Reports no additional cardiovascular complaints Musculoskeletal: Musculoskeletal: Reports no additional musculoskeletal complaints PMFSH Past Medical History Attestation statement: The following information was validated with the patient. Medical History CHF (congestive heart failure) Pneumonia Multiple falls Acute on chronic respiratory failure with hypoxemia Weakness Urgency incontinence Menopause Well woman exam Current use of anticoagulant therapy Stenosis of carotid artery Diabetes type 2, controlled Sepsis Gastroenteritis Hypoxia Pneumonia Urinary incontinence Obesity due to excess calories Type 2 diabetes mellitus with diabetic polyneuropathy Senile cataract of left eye Essential hypertension Hyperlipemia Paroxysmal A-fib Anxiety disorder Hypothyroidism Coronary artery disease History of cerebrovascular accident Osteoarthritis Osteopenia Deep vein thrombosis Hearing loss Surgical History H/O colonoscopy H/O breast surgery S/P IVC filter History of bilateral tubal ligation Family History Family History Father Heart disease CVD (cardiovascular disease) Mother Diabetes Social History Social History Household Members: None Housing: Apartment Do you presently have visiting nurse or other home services: Yes Alcohol intake: never Patient Tobacco Use Status: Former Tobacco user Tobacco use type: Cigarette Advance Directives: Yes Advance Directives on File: Yes Advance Directives Date on File: 07/01/22 Do you have a plan to hurt others: No Plan service: No Current occupational status: unemployed Sexual orientation: Straight/Heterosexual Gender identity: Female Physical Exam ED Vital Signs: Vital Signs - 24 hr 07/02/24 10:51 07/02/24 15:35 Temperature 98.2 F 97.6 F Pulse Rate 68 78 Respiratory Rate 16 16 Blood Pressure 144/63 H 127/50 L Pulse Oximetry 97 93 Oxygen Delivery Method Room Air Room Air BMI result Body Mass Index 34.2 Patient looks well she is not toxic-appearing Const General: cooperative Nutritional Appearance: well nourished Orientation/consciousness: patient oriented x3 Limitations: no limitations HENMT Head: Yes normal to inspection General nose exam: Normal external nose present Face and sinus: Yes normal facial exam Throat: Yes posterior oropharynx normal Neck Neck: Yes normal visual inspection Resp Effort & Inspection: normal respiratory effort Auscultation: clear to auscultation bilaterally Cardio Jugular venous distension: no JVD Rate: regular rate Rhythm: regular rhythm GI Inspection: Yes normal to inspection Palpation (GI): Soft to palpation, nontender, no guarding and not rigid Auscultation: normal bowel sounds Skin General skin exam: no rashes or lesions noted and elasticity normal Lesions: no lesions Rashes: no rashes Neuro General: patient oriented x3 Course Reevaluation(s) Reevaluation #1: signed out to Dr Iggy antonio pending Time: 15:54 Medications Administered Discontinued Medications Generic Name Dose Route Start Last Admin Trade Name Freq PRN Reason Stop Dose Admin Sodium Chloride 1,000 mls @ 999 mls/hr 07/02/24 11:15 07/02/24 13:25 Ns IVCONT 07/02/24 12:15 Infused .Q1H1M GER Infusion Iohexol 85 ml 07/02/24 14:24 07/02/24 14:24 Iohexol 350 Mg/Ml 75 Ml Infus..Btl IV 07/02/24 14:25 85 ml ONCE ONE Administration Ondansetron HCl 4 mg 07/02/24 11:04 07/02/24 11:25 Ondansetron Hcl 4 Mg/2 Ml Vial IVPUSH 07/02/24 11:05 4 mg ONCE ONE Administration Medical Decision Making Medical Decision Making MDM Narrative: Patient presented to emergency room diarrhea it is reasonable to check electrolytes chemistry administer some fluids Differential Diagnosis Differential Diagnoses: The differential diagnosis associated with the presentation includes Viral diarrhea/unlikely C diff she is not on antibiotic/colitis Admission/Observation Consideration of admission/observation: Escalation of care including admission/observation considered Lab Data 07/02/24 11:21 07/02/24 11:21 Labs: Lab Results 07/02/24 07/02/24 Range/Units 11:21 12:28 WBC 8.5 (4.8-10.8) X10*3/uL RBC 4.26 (4.20-5.50) X10*6/uL Hgb 12.6 (12.0-16.0) g/dl Hct 39.3 (37.0-47.0) % MCV 92.3 (80.0-98.0) fL MCH 29.6 (27.0-33.0) pg MCHC 32.1 (31.0-35.0) g/dl RDW 14.9 (11.0-16.0) % Plt Count 155 L (160-400) X10*3/uL MPV 11.4 (9.4-12.3) fL Immature Gran % (Auto) 0.4 (0.0-0.4) % Neut % (Auto) 68.9 (45-73) % Lymph % (Auto) 20.8 (20-40) % Bollinger % (Auto) 7.0 (2-11) % Eos % (Auto) 2.7 (0-4) % Baso % (Auto) 0.2 (0-2) % Lymph # (Auto) 1.8 (1.2-4.9) X10*3/uL Bollinger # (Auto) 0.6 (0.1-1.2) X10*3/uL Eos # (Auto) 0.2 (0.0-0.4) X10*3/uL Baso # (Auto) 0.0 (0.0-0.2) X10*3/uL Abs Immat Gran (auto) 0.03 (0.00-0.03) X10*3/uL Absolute Neuts (auto) 5.8 (2.0-8.3) x10*3/uL Absolute Nucleated RBC 0.000 (0.0-0.012) X10*3/uL Nucleated RBC % (auto) 0.0 (0.0-0.2) /100WBC PT 34.0 H (10.9-12.4) SEC INR 2.9 H (0.9-1.1) Sodium 142 (135-145) mmol/L Potassium 4.3 (3.3-5.1) mmol/L Chloride 107 (96-108) mmol/L Carbon Dioxide 28 (22-29) mmol/L Anion Gap 11 L (12-20) BUN 13 (9-16) mg/dL Creatinine 0.89 (0.5-1.4) mg/dL Estim Creat Clear Calc 54.6 Estimated GFR 60 POC Glucose 83 (60-115) mg/dL Random Glucose 99 (60-115) mg/dL Calcium 9.8 (8.4-10.2) mg/dL Total Bilirubin 0.5 (0.0-1.0) mg/dL AST 43 H (5-31) U/L ALT 20 (0-31) U/L Alkaline Phosphatase 101 (39-117) U/L Total Protein 7.9 (6.5-8.0) g/dL Albumin 3.8 (3.5-5.0) g/dL Discharge Plan Discharge Clinical Impression: Diarrhea, Abdominal pain Patient Disposition: Still a Patient Prescriptions: No Action warfarin 3 mg Tablet 1.5 - 3 mg PO DAILY insulin lispro [Humalog KwikPen Insulin] 100 unit/mL insulin pen 8 unit subcut TIDAC Protocol: Insulin Correction Scale Less than or equal to 110 ---- Give (units): 0 111 to 150 Give (units): 0 151 to 200 Give (units): 2 201 to 250 Give (units): 4 251 to 300 Give (units): 6 301 to 350 Give (units): 8 Greater than 350 Give (units): 10 Call MD if Blood Glucose > : 350 metformin 500 mg tablet extended release 24 hr 500 mg PO BIDWM ipratropium-albuterol 0.5 mg-3 mg(2.5 mg base)/3 mL Solution For Nebulization 3 ml INHALATION QID PRN (Reason: SOB/Cough/Wheezing) sucralfate 1 gram Tablet 1 g PO TIDAC clotrimazole 1 % Cream 1 appl VAGINAL BID PRN (Reason: Irritation) acetaminophen 650 mg Tablet Extended Release 650 mg PO Q8H PRN (Reason: Pain/Fever) betamethasone valerate 0.1 % Cream 1 appl TOPICAL BID PRN (Reason: dryness) triamcinolone acetonide 0.1 % Ointment 1 appl TOPICAL BID PRN (Reason: Rash) lactulose 20 gram/30 mL Solution 20 g PO DAILY Qty: 1200 0RF guaifenesin [Mucinex] 600 mg Tablet Extended Release 12hr 600 mg PO BID Qty: 20 0RF azithromycin 500 mg tablet 500 mg PO DAILY 5 Days Qty: 5 0RF cefuroxime axetil 500 mg tablet 500 mg PO BID Qty: 10 0RF tramadol 50 mg tablet 50 mg PO Q6H PRN (Reason: pain) Qty: 20 0RF (DME) pen needle, diabetic 32 gauge x 5/32 needle See Rx Instructions .ROUTE .MEDSUPPLY Qty: 50 Rx Instructions: As directed cholecalciferol (vitamin D3) 50 mcg (2,000 unit) tablet 50 mcg PO DAILY sertraline 50 mg tablet 50 mg PO DAILY fluticasone propionate 50 mcg/actuation spray,suspension 2 spray intranasal DAILY omeprazole 20 mg capsule,delayed release(DR/EC) 20 mg PO BID@0630,1630 fluticasone propion-salmeterol 500-50 mcg/dose blister with device 1 inh inhalation BID levothyroxine 100 mcg tablet 100 mcg PO DAILY@0600 (DME) lancets Mis See Rx Instructions .ROUTE .MEDSUPPLY Qty: 100 Rx Instructions: As directed (DME) blood sugar diagnostic Strip See Rx Instructions Not Applicable BID Qty: 10 Rx Instructions: As directed atorvastatin 20 mg tablet 20 mg PO BEDTIME metoprolol tartrate 25 mg tablet 12.5 mg PO BID Tab-A-Judith Multivitamin w-iron 15 mg iron- 400 mcg tablet 1 tab PO QAM Lantus Solostar U-100 Insulin 100 unit/mL (3 mL) insulin pen 25 unit subcut DAILY Qty: 15 5RF (DME) Sidestream Misc See Rx Instructions .ROUTE DIRECTED Qty: 1 Rx Instructions: As directed docusate sodium 100 mg capsule 100 mg PO BID clonazepam 0.5 mg tablet 0.5 mg PO BEDTIME solifenacin 5 mg tablet 5 mg PO DAILY furosemide 20 mg tablet 60 mg PO DAILY Qty: 90 5RF Protocol: Hold for SBP< HOLD for SBP < : 90 Print Language: Wolof
[2024-07-02] MEDS: 0.9 % Sodium Chloride 1,000 ML 999 ML IVCONT (11:22)
[2024-07-02 11:25] LABS: MANUAL DIFF FLAG NO
[2024-07-02] MEDS: ondansetron HCL 4 MG/2 ML VIAL IVPUSH (11:25)
--- NOTE | 2024-07-02 11:28 | PC.NURSE ---
IV established, labs obtained and sent. medicated per the MAR w/ fluids infusing. upon walking into room, patient was eating a bread roll. educated the need for patient to not eat/drink until after the CT scan results. call alvarenga within reach
[2024-07-02 11:33] LABS: Basophils Percent Auto 0.2 % (0-2); Eosinophils Absolute Auto 0.2 X10*3/uL (0.0-0.4); Eosinophils Percent Auto 2.7 % (0-4); Hematocrit 39.3 % (37.0-47.0); Hemoglobin 12.6 g/dl (12.0-16.0); Imm Gran Abs Auto 0.03 X10*3/uL (0.00-0.03); Imm Gran Pct Auto 0.4 % (0.0-0.4); Lymphocytes Absolute Auto 1.8 X10*3/uL (1.2-4.9); Lymphocytes Percent Auto 20.8 % (20-40); Mean Corpuscular HGB Conc 32.1 g/dl (31.0-35.0); Mean Corpuscular Hemoglobin 29.6 pg (27.0-33.0); Mean Corpuscular Volume 92.3 fL (80.0-98.0); Mean Platelet Volume 11.4 fL (9.4-12.3); Monocytes Absolute Auto 0.6 X10*3/uL (0.1-1.2); Neutrophils Absolute Auto 5.8 x10*3/uL (2.0-8.3); Neutrophils Percent Auto 68.9 % (45-73); Platelet Count 155 X10*3/uL (160-400); Red Blood Count 4.26 X10*6/uL (4.20-5.50); Red Cell Distribution Width 14.9 % (11.0-16.0); White Blood Count 8.5 X10*3/uL (4.8-10.8)
[2024-07-02 11:43] LABS: INTERNATIONAL NORM RATIO 2.9 (0.9-1.1)
[2024-07-02 12:17] LABS: Alanine Aminotransferase 20 U/L (0-31); Albumin Level 3.8 g/dL (3.5-5.0); Alkaline Phosphatase 101 U/L (39-117); Anion Gap 11 (12-20); Aspartate Amino Transferase 43 U/L (5-31); Bilirubin Total 0.5 mg/dL (0.0-1.0); Blood Urea Nitrogen 13 mg/dL (9-16); Calcium 9.8 mg/dL (8.4-10.2); Carbon Dioxide 28 mmol/L (22-29); Chloride 107 mmol/L (96-108); Creatinine Clr Calc Pharmacy 54.6; Estimated Glomerular Filt Rate 60; Glucose Random 99 mg/dL (60-115); Potassium 4.3 mmol/L (3.3-5.1); Sodium 142 mmol/L (135-145); Total Protein 7.9 g/dL (6.5-8.0)
[2024-07-02 12:32] LABS: Glucose, Whole Blood 83 mg/dL (60-115)
--- NOTE | 2024-07-02 12:46 | PC.NURSE ---
family stating POC was 79, provider okayed juice and crackers.
[2024-07-02] MEDS: iohexoL 350 MG/ML 75 ML INFUS..BTL 85 ML IV (14:24)
--- NOTE | 2024-07-02 15:29 | PC.NURSE ---
Addendum entered by Belkis Bravo RN 07/02/24 15:30: Catarina Original Note: daughter and HCP
[2024-07-02 15:35] VITALS: BP 127/50; PULSE 78; RESP 16; TEMP 36.4; O2SAT 93
[2024-07-02 17:40] VITALS: BP 127/50; PULSE 78; RESP 16; TEMP 36.4; O2SAT 93
== END 2024-07-02 17:58 | disposition home or self-care (01) ==
PROVIDERS: Emergency Medicine; Emergency Provider Emergency Medicine Emergency Medical Services
DX: R10.2 Pelvic and perineal pain (principal); R19.7 Diarrhea, unspecified; R11.2 Nausea with vomiting, unspecified; R10.13 Epigastric pain; Z79.899 Other long term (current) drug therapy
CPT/HCPCS: 36415; 74177; 80053; 82947; 85025; 85610; 96361; 96374; 99284; J2405; Q9967

== ENCOUNTER 2024-09-16 11:42 | Inpatient (IN) | payer OTHER, SELFPAY ==
[2024-09-16] VITALS (11 sets, daily range): BP systolic 102–137; BP diastolic 44–73; PULSE 66–102; RESP 14–24; TEMP 36.8–38.9; O2SAT 83–98; BMI 32.8
--- NOTE | ~2024-09-16 | CT_ITS ---
CLINICAL HISTORY: diffuse pain, fevers CT abdomen and pelvis without contrast Comparison: CT/SR - CT ABDOMEN PELVIS W IV CON - 07/02/24 14:07 EST Findings: No consolidation or effusion. Severe pancreatic atrophy. Small right kidney cyst. Mild irregularity of the liver cortex. Normal spleen size. Unremarkable adrenal glands. Small gallstones are present within the gallbladder. There is colonic diverticulosis without diverticulitis. No colitis or bowel obstruction. Small umbilical hernia containing fat. There is an IVC filter. There are vascular calcifications within the uterus. Otherwise unremarkable pelvic contents. Normal appendix. No acute fracture. IMPRESSION: 1. Colonic diverticulosis without diverticulitis. 2. Cholelithiasis. This document has been electronically signed by: Suzan Mcqueen MD on 09/16/2024 14:28:39
--- NOTE | ~2024-09-16 | XR_ITS ---
CLINICAL HISTORY: cough, fever 1 view chest x-ray Comparison: CR/VT/SR - XR CHEST 2V - 03/29/24 13:20 EDT Findings: Possible focus of airspace opacity within the retrocardiac region. The right lung is clear. Normal size heart. Chronic appearing deformity of the right proximal humerus. No acute fracture. IMPRESSION: Possible focus of atelectasis or infiltrate within the retrocardiac region. This document has been electronically signed by: Suzan Mcqueen MD on 09/16/2024 14:05:07
--- NOTE | 2024-09-16 12:25 | ECG_ITS ---
Test Reason : WEAKNESS Blood Pressure : */* mmHG Vent. Rate : 85 BPM Atrial Rate : 85 BPM P-R Int : 400 ms QRS Dur : 94 ms QT Int : 364 ms P-R-T Axes : 80 49 176 degrees QTcB Int : 433 ms Undetermined rhythm ; ?sinus with long OK vs junctional Nonspecific ST and T wave abnormality Abnormal ECG When compared with ECG of 02-Apr-2024 16:42, Sinus rhythm has replaced Junctional rhythm No significant changes seen Referred By: Mary Anne Chavarria Electronically Signed By: MANE MULLIGAN
[2024-09-16 12:35] LABS: MANUAL DIFF FLAG NO
[2024-09-16 12:39] LABS: Basophils Percent Auto 0.4 % (0-2); Hematocrit 37.7 % (37.0-47.0); Hemoglobin 12.6 g/dl (12.0-16.0); Imm Gran Abs Auto 0.03 X10*3/uL (0.00-0.03); Imm Gran Pct Auto 0.4 % (0.0-0.4); Lymphocytes Absolute Auto 0.9 X10*3/uL (1.2-4.9); Lymphocytes Percent Auto 10.4 % (20-40); Mean Corpuscular HGB Conc 33.4 g/dl (31.0-35.0); Mean Corpuscular Hemoglobin 31.4 pg (27.0-33.0); Mean Platelet Volume 11.2 fL (9.4-12.3); Monocytes Absolute Auto 0.6 X10*3/uL (0.1-1.2); Monocytes Percent Auto 6.7 % (2-11); Neutrophils Percent Auto 82.1 % (45-73); Platelet Count 134 X10*3/uL (160-400); Red Blood Count 4.01 X10*6/uL (4.20-5.50); Red Cell Distribution Width 13.6 % (11.0-16.0); White Blood Count 8.5 X10*3/uL (4.8-10.8)
[2024-09-16 12:40] LABS: VBG Base Excess 6.7 mmol/L; VBG HCO3 30 mmol/L (22-26); VBG pCO2 39 mmHg; VBG pH 7.49 (7.32-7.43); VBG pO2 57 mmHg
[2024-09-16] MEDS: Piperacillin Sodium/Tazobactam 3.375 GM in 0.9 % Sodium Chloride 50 ML IV (12:40)
[2024-09-16 12:41] LABS: Venous Blood Gas Refer to POC result
[2024-09-16 12:44] LABS: Prothrombin Time 23.5 SEC (10.9-12.4)
[2024-09-16] MEDS: Lactated Ringers 1,000 ML 999 ML IV (12:45)
[2024-09-16] MEDS: Acetaminophen 1,000 MG/100 ML PIGGYBACK 400 MG IV (12:45)
[2024-09-16] MEDS: ondansetron HCL 4 MG/2 ML VIAL IVPUSH (12:45)
[2024-09-16] MEDS: methylPREDNISolone Sod Succ 125 MG/2 ML VIAL 60 MG IVPUSH (12:50)
[2024-09-16] MEDS: Albuterol Sulfate 2.5 MG, Albuterol/Iprat 2.5/0.5MG 3 ML 3 ML INHALE (12:52)
[2024-09-16 13:00] LABS: Lactic Acid 1.3 mmol/L (0.5-2.0)
[2024-09-16 13:06] LABS: B Type Natriuretic Peptide 1122 pg/mL (<100)
--- OUTSIDE RECORDS SUMMARY | 2024-09-16 13:09 | XMS_ITS ---
[facility] Address [address] [facility] [place] [address] Care Team Providers Care Van Driver Name Role Phone Valeri Lerner Primary Care Provider Keenan Lowery Unavailable [phone] Allergies Allergen (clinical drug ingredient) Drug/Non Drug Allergy documented on EMR Reaction Allergy Type Onset Date Status aspirin Aspirin stomach pain Drug Allergy Acti ve Motrin Unknown Drug Allergy Active acetaminophen / oxycodone Percocet Unknown Drug Allergy Active Robitussin Cough Long-Acting Unknown Drug Allergy Active Shrimp Flavor Unknown Drug Allergy Act cliff Penicillin Unknown Drug Allergy Active REASON FOR VISIT At Risk Footcare, Painful Nail(s) aggravated by shoes and causing difficulty standing/walking, Toe Irritation, Skin Problem Medications Medication SIG (Take, Route, Frequency, Duration) Notes Start Date End Date Status Ciclopirox Olamine 0.77 % 1 application Externally Twice a day to skin of feet including between the toes for 30 days Active Trulicity Unknown HumaLOG KwikPen 100 UNIT/ML INJECT 24 - 28 units WITH BREAKFAST, INJECT 24 UNITS WITH LUNCH, AND INJECT 26 UNITS WITH DINNER Subcutaneous for 18 Unknown Arestin Unknown Lasix Unknown Simvastatin Unknown Mephyton Unknown VESIcare 10 MG Orally Unkno wn clonazePAM Unknown Lantus SoloStar 100 UNIT/ML INJECT 28 UNITS EVERY DAY DIRECTED Subcutaneous for 54 Active Omeprazole 20 MG Orally Act cliff Metoprolol & Diet Manage Prod Active Metformin & Diet Manage Prod Active Warfarin Sodium 3 MG Orally Active Sertraline HCl 50 MG Orally Active Fluticasone Propionate Active Advair Diskus Active Levothyroxine Sodium Active Ipratropium Hydro Active Insulin Lispro Activ e Furosemide Active Tab-A-Judith Active Sucralfate Active Vitamin D3 Active Docusate Sodium Acti ve Atorvastatin Calcium Active Extra Depth Orthopedic Shoes, (1) Pair With (3) Pair Custom Heat Molded Multidensity Innersoles Dx: NIDDM/PVD(E11.51), Hammertoe Foot Deformity(M20.41,M20.42), Preulcerative Skin Lesion(s)(L85.1) Wear Daily for 365 days 08/16/2024 Active Social History Tobacco Use: Social History Observation Description Date Details (start date - stop date) Never Smoker NA - NA Tobacco use other than smoking: Question Answer Notes Are you an other tobacco user? No Tobacco Control (Standard) Question Answer Notes Tobacco use: Nonsmoker Additional Findings: Tobacco non-user Current no nsmoker AUDIT-C (Standard) Question Answer Notes Did you have a drink containing alcohol in the p ast year? No Points 0 Interpretation Negative Problems Problem Type SNOMED Code ICD Code Onset Dates Problem Status W/U Status Risk Notes Problem Type 2 diabetes mellitus with peripheral angiopathy (156193090) Type 2 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) Active confirmed Q7(A), Q8(2B), Q9(1B,2C) Problem Acquired hammer toe of right foot (2389940284839 105) Other hammer toe(s) (acquired), right foot (M20.41) Active confirmed Problem Acquired hammer toe of left foot (2495657961181 103) Other hammer toe(s) (acquired), left foot (M20.42) Active confirmed Vital Signs Height 5 ft 5 in in 08/16/2024 Weight 230 lbs 08/16/2024 BMI 38.27 kg/m2 08/16/2024 Blood pressure systolic 130 mm Hg 08/16/19 25 Blood pressure diastolic 70 mm Hg 025 Procedures Procedure Date Ordered Date Performed Result Body Sit e 24289-CDXRERO NAIL, 6 OR MORE 08/16/2024 N/A 33292-DGWO SKIN LESIONS, OVER 4 08/16/2024 N/A Encounters Encounter Location Date Provider Diagnosis [facility] [address] [address] 08/16/2024 Keenan Dyer Type 2 diabetes mellitus with diabetic peripheral angiopathy without gangrene E11.51 ; Tinea unguium B35.1 ; Pain in right toe(s) M79.674 ; Pain in left toe(s) M79.675 ; Other hammer toe(s) (acquired), left foot M20.42 ; Other hammer toe(s) (acquired), right foot M20.41 and Tinea pedis of both feet B35.3 Assessments Encounter Date Diagnosis (ICD Code) Assessment Notes Treatment Notes Treatment Clinical Notes Section Notes 08/16/2024 Type 2 diabetes mellitus with diabetic peripheral angiopathy without gangrene (ICD-10 - E11.51) Q7(A), Q8(2B), Q9(1B,2C) 08/16/2024 Tinea unguium (ICD-10 - B35.1) 08/16/2024 Pain in right toe(s) (ICD-10 - M79.674) 08/16/2024 Pain in left toe(s) (ICD-10 - M79.675) 08/16/2024 Other hammer toe(s) (acquired), left foot (ICD-10 - M20.42) 08/16/2024 Other hammer toe(s) (acquired), right foot (ICD-10 - M20.41) Patient Educated with: DIABETIC FOOT CARE INSTRUCTIONS.p df (DIABETIC FOOT CARE INSTRUCTIONS.p df) 08/16/2024 Tinea pedis of both feet (ICD-10 - B35.3) Plan Of Treatment Medication Medication Name Sig Start Date Stop Date Notes Ciclopirox Olamine 0.77 % 1 application Externally Twice a day to skin of feet including between the toes for 30 days Extra Depth Orthopedic Shoes , (1) Pair With (3) Pair Custom Heat Molded Multidensity Innersoles Dx: NIDDM/PVD(E11.51), Hammertoe Foot Deformity(M20.41,M20.42), Preulcerative Skin Lesion(s)(L85.1) Wear Daily for 365 days 08/16/2024 Treatment Notes Assessment Notes Other hammer toe(s) (acquired), right fo ot Patient Educated with: DIABETIC FOOT CARE INSTRUCTIONS.pdf (DIABETIC FOOT CARE INSTRUCTIONS.pdf) Pending Test Test Name Order Date [id number]-NFWMGMN NAIL, 6 OR MORE 08/16/2024 70587-RJSX SKIN LESIONS, OVER 4 08/16/19 Next Appt Details Follow Up: 2 Months, Reason: Provider Name:Keenan Dyer , 11/22/2024 01:30:00 PM, [address] [place] [address], [phone], Procedure Notes * Category Sub-Category Detail Notes Debride Nail 6-10 Nail debridement Due to the cl inical pathology outlined in the exam findings, performance of this nail treatment is medically necessary as its management by an unskilled/untrained nonprofessional would put this patients foot and overall health at risk. Therefore, debridement to affected nail(s), as described in exam ( TA, T1, T2, T3, T4, T5, T6, T7, T8, T9), was performed exclusively by the physician of record to reduce/remove overall nail length, girth, thickness, subungual debris, and necrotic tissue, by manual and/or electrical means through the use of a nail nipper and/or dremel-type card grinder helper, to a more viable healthy nail plate or bed tissue 6-10 nails in total. Silver nitrate was used for any petechial bleeding as necessary. Definitive antifungal treatment options, both pharmaceutical and surgical, have been reviewed and discussed with the patient. The patient solely prefers the use of intermittent/as needed professional debridement services for their nail condition and understands the need for additional periodic treatments to maintain effectiveness in symptomatic relief - 17706 Keratoma Treatment Parring or Cutting o f Benign Hyperkeratotic Lesion(s) (-57) More than 4 Lesions - Due to the at risk nature of the patients medical condition as documented in the exam findings, performance of this keratoderma treatment is medically necessary as its management by an unskilled/untrained nonprofessional would put this patients foot and overall health at risk. Therefore, the benign hyperkeratotic lesions, ( 8) in total, locations as stated and described in the exam ( Medial, IPJ, TA, Medial, IPJ, T5, SUB MTH (s), 1, B/L, SUB MTH (s), 5, B/L, Plantar Heel(s), B/L), were pared, and/or cut utilizing a sterile 15 blade, tissue nippers, and/or power dremel instrumentation by the physician of record - 93247, Q8 Progress Notes * Hany WOODB:[birth year] (88 yo F)Acc No.[id number]:08/16/2024 Progress Notes Patient:?Nikky WOOD Provider:?Keenan Dyer DPM :1935???Age:88 Y???Sex:Female D ate:08/16/2024 Address:[address] [place], [place] [id number] Pcp:Valeri Lerner Subjective: * Chief Complaints: * ???At Risk FootcarePainful N ail(s) aggravated by shoes and causing difficulty standing/walkingToe IrritationSkin Problem * HPI: ???At Risk footcare:?Pt States Last PCP Visit:?Date?07/18/2024 ?Misc?Patient accompanied by, Daughter, ALBIN, who serves as, Surgical Consultant/Dietary Service Aide, and/who is physically present in exam room at time of visit, who is physically present in exam room at time of visit.?Toe pain:?Location:?B/L feet.?Duration:?several years.?Course:?worse.?Aggravated by:?shoes, any pressure.?Treatments:?change in shoes.?Skin problems:?Nature:?scaling , redness.?Location:?B/L .?Duration:?several days.?Course:?worse.? * ROS:?General/Constitutional:?Nausea?denies.?Vomiting?denies.?Hunger Thirst?denies.?Loss appetite?denies.?Chills?denies.?Fatigue?denies.?Fever?denies.?Night Sweats?denies.?Unexplained weight loss?denies.?Unexplained weight gain?denies.?HEENTM:?Dentures?denies.?Dizziness?admits.?Glasses/contacts?denies.?Retinopathy?den ies.?Blurred/double vision?denies.?TMJ?denies.?Discharge/drainage?denies.?Implants?denies.?Sore throat?denies.?Dental implants?denies.?Hard of hearing ?admits.?Difficulty chewing/swallowing/speaking?denies.?Nose bleeds?denies.?Sore mouth?denies.?Respiratory:?On O xygen?denies.?Pneumonia/pleurisy?admits.?Bronchitis?denies.?Emphysema?denies.?Co ughing?admits.?Cough blood?denies.?Shortness of breath?denies.?Wheezing?denies.?Cardiovascular:?Pacemaker?denies.?MVP?denies.?WPW?denies.?CHF?denies.?Heart attack?denies.?Septal defect?denies.?Rapid beat?denies.?Chest pain ?denies.?Atrial Fib.?denies.?Murmur/Palpitations?denies.?Gastrointestinal:?Hemorrhoids?denies.?Stomach/Abdominal pain?denies.?Dark blood stool?denies.?Irritable bowel ?denies.?Constipation?denies.?Diarrhea?denies.?Hematology:?Swelling?admits.?Clots?denies.?Varicose Veins?admits.?Bruising?admits, on anticoagulants.?Bleeding problem?admits, on anticoagulants.?Genitourinary:?Blood urine?denies.?Frequent/Painfu/urination/bladder control?denies.?Kidney stones?denies.?Infection (UTI)?denies.?Nephropathy?denies.?sex trans dis (STD)?denies.?Prostate?denies.?Musculoskeletal:?Hammertoes?admits.?Bunions?denies.?Back Pain?denies.?Muscle Cramps/ Resting?denies.?Muscle cramps / walking?denies.?Generalized aches and pains?denies.?Weakness?admits.?Integ.:?Hackett?denies.?Scars?denies.?Corns/calluses?admits.?Ingrown nails?admits.?Painful nails?admits.?Open Sores?denies.?Rashes?denies.?Neurologic:?Difficulty sleeping?denies.?Brain disorder?denies.?Numbness?denies.?Balance t rouble?admits.?Confusion?denies.?Fainting/blackouts?denies.?Tingling?denies.?Bruce mors?denies.? * Medical History:? * Surgical History:?cataract s urgery left eye 11/09/2018 * Hospitalization/Major Diagno stic Procedure:?[facility] for a cough 2017 * Family History:?Mother: dece ased, diagnosed with Other specified conditions influencing health status.?Father: , diagnosed with Other specified conditions influencing health status.?Children: diagnosed with Diabetic - NIDDM.? divorce. * Social History:?Tobacco Use:?Tobacco use other than smoking?Are you an other tobacco user??No ?Tobacco Control (Standard)?Tobacco use:?Nonsmoker ?Additional Findings: Tobacco non-user?Current nonsmoker ???Drugs/Alcohol:?Drugs?Have you used drugs other than those for medical reasons in the past 12 months??No ???Miscellaneous:?Caffeine: yes, 1-2 cups per day. ?Children: yes, 10. ?Exercise: no. ?Marital status: . ???Drug/Alcohol:?AUDIT-C (Standard)?Did you have a drink containing alcohol in the past year??No ?Points?0 ?Interpretation?Negative * Medications:?TakingAtorvasta tin Calcium Furosemide Tab-A-Judith Vitamin D3 Sucralfate Docusate Sodium Insulin Lispro Advair Diskus Fluticasone Propionate Ipratropium Hydro Levothyroxine Sodium Metformin & Diet Manage Prod Metoprolol & Diet Manage Prod Omeprazole 20 MG Capsule Delayed Release Orally Sertraline HCl 50 MG Tablet Orally Warfarin Sodium 3 MG Tablet Orally Lantus SoloStar 100 UNIT/ML Solution Pen-injector INJECT 28 UNITS EVERY DAY DIRECTED Subcutaneous Taking Atorvastatin Calcium Taking Furosemide Taking Tab-A-Judith Taking Vitamin D3 Taking Sucralfate Taking Docusate Sodium Taking Insulin Lispro Taking Advair Diskus Taking Fluticasone Propionate Taking Ipratropium Hydro Taking Levothyroxine Sodium Taking Metformin & Diet Manage Prod Taking Metoprolol & Diet Manage Prod Taking Omeprazole 20 MG Capsule Delayed Release Orally Taking Sertraline HCl 50 MG Tablet Orally Taking Warfarin Sodium 3 MG Tablet Orally Taking Lantus SoloStar 100 UNIT/ML Solution Pen- injector INJECT 28 UNITS EVERY DAY DIRECTED Subcutaneous UnknownclonazePAM Mephyton Simvastatin VESIcare 10 MG Tablet Orally Lasix HumaLOG KwikPen 100 UNIT/ML Solution Pen-injector INJECT 24 - 28 units WITH BREAKFAST, INJECT 24 UNITS WITH LUNCH, AND INJECT 26 UNITS WITH DINNER Subcutaneous Trulicity Arestin Medication List reviewed and reconciled with the patientUnknown clonazePAM Unknown Mephyton Unknown Simvastatin Unknown VESIcare 10 MG Tablet Orally Unknown Lasix Unknown HumaLOG KwikPen 100 UNIT/ML Solution Pen-injector INJECT 24 - 28 units WITH BREAKFAST, INJECT 24 UNITS WITH LUNCH, AND INJECT 26 UNITS WITH DINNER Subcutaneous Unknown Trulicity Unknown Arestin Medication List reviewed and reconciled with the patient * Allergies:?Aspirin: stomach painRobitussin Cough Long-ActingPercocetPenicillinMotrinShrimp Flavoryes[Allergies Verified] Objective: * Vitals:?Ht: 5 ft 5 in, Wt: 2 30, BMI: 38.27, Shoe size: 9, BP: 130/70 mm Hg, BS: 86, Ht-cm: 165.1 cm, Wt-k.33 kg. * ???Past Orders: ???Lab:HEMOGLOBIN A1C (GLYCO HEMOGLOBIN) (Order Date - 05/31/2024) (Collection Date & Time - 05/31/2024 12:42 PM) ? Value Reference Range ?HEMOGLOBIN A1C % (HH) 7.0 * Examination: ???Ophthalmology Referral: ?DIABETES EYE EXAM?Vascular: ?DP PULSES (B):? 0/4, B/L.?PT PULSES (B):? 0/4, B/L.?CAPILLARY FILL TIME:? delayed, all digits, B/L.?TROPHIC CONDITION-TEXTURE/ELASTICITY/TURGOR/HAIR GROWTH (B):? decreased, fragile, thin, shiny, with sparse to absent hair growth, B/L.?TEMPERTURE GRADIENT (C):? decreased, cool to cool, proximal to distal, B/L.?PIGMENTATION:?rubrous, B/L.?EDEMA (C):?3/4, pitting, without aching pain, Leg(s), Ankle(s), Foot, B/L.?CLAUDICATION (C):?denies, B/L.?REST PAIN:?denies, B/L.?PARESTHESIA (C):?absent, B/L.?BURNING (C):?absent, B/L.?Nails: ?NAILS are:?Elongated, overgrown, dystrophic, lytic, greater than 3mm thick, discolored and friable with crumbly malodorous subungual debris, with pain on palpation, TA, T1, T2, T3, T4, T5, T6, T7, T8, T9.?Dermatologic: ?SKIN FINDINGS:?Skin exam reveals Keratotic lesion(s) located at, Medial, IPJ, TA, Medial, IPJ, T5, SUB MTH (s), 1, B/L, SUB MTH (s), 5, B/L, Plantar Heel(s), B/L , Skin shows sign(s) of, erythema, scaling, in a moccasin fashion, no fissure(s) present, B/L.?Neurological: ?SENSORY:?Neurological exam reveals intact sensorium, pain sensation normal, vibration sensation intact, pinprick sensation is normal in the lower extremities, 5.07 monofilament test performed at plantar aspects of 5 varied sites per foot shows sensation, normal, B/L, Pt denies, anesthesia, burning, paresthesia, tingling, B/L.?Orthopedic: ?MUSCLE STRENGTH:?5/5 all groups in a symmetrical fashion, B/L.?GAIT ABNORMALITY:?apropulsive, unstable/unsteady relating occasional difficulty with balance, walker-assisted.?DIGITAL DEFORMITIES:?Digital contracture, PIPJ, 2-5 B/L, incompl-reducible to push-up test, no over, nor underlapping,?there is?evidence of shoe producing skin irritation.?FOOTWEAR:?worn, non-supportive, shoe gear properties exacerbate patient's foot/toe deformity.?General Examination: ?GENERAL APPEARANCE:?Reveals a pleasant, alert, well nourished, well- developed, well hydrated individual, who demonstrates proper attention to hygiene/body habitus, and is in no acute distress, Pt serves as own historian for office visit today.?ORIENTED:?person, place, and time.?FOOT EXAM:?Footwear Evaluation? Assessment: * Assessment: 1.?Type 2 diabetes mellitus with diabetic peripheral angiopathy without gangrene - E11.51???Notes :Q7(A), Q8(2B), Q9(1B,2C)???2.?Tinea unguium - B35.1???3.?Pain in right toe(s) - M79.674???4.?Pain in left toe(s) - M79.675???5.?Other hammer toe(s) (acquired), left foot - M20.42???Specify :Chronic problem, Worse (4),Rx Management (4)???6.?Other hammer toe(s) (acquired), right foot - M20.41 (Primary)???Specify :Chronic problem, Worse (4),Rx Management (4)???7.?Tinea pedis of both feet - B35.3???Specify :Acute problem, Uncomplicated (3),Rx drug management (4)??? Plan: * Treatment: 2.?Type 2 diabetes mellitus with diabetic peripheral angiopathy without gangrene?Procedure: 76529-BYOV SKIN LESIONS, OVER 4 3.?Tinea unguium?Procedure: 53129-AVWQRJI NAIL, 6 OR MORE 4.?Tinea pedis of both feet? Start Ciclopirox Olamine Cream, 0.77 %, 1 application, Externally, Twice a day to skin of feet including between the toes, 30 days, 120, Refills 3.?? * Procedures:?Debride Nail 6-10:?Nail debridement?Due to the clinical pathology outlined in the exam findings, performance of this nail treatment is medically necessary as its management by an unskilled/untrained nonprofessional would put this patients foot and overall health at risk. Therefore, debridement to affected nail(s), as described in exam (?TA, T1, T2, T3, T4, T5, T6, T7, T8, T9), was performed exclusively by the physician of record to reduce/remove overall nail length, girth, thickness, subungual debris, and necrotic tissue, by manual and/or electrical means through the use of a nail nipper and/or dremel-type card grinder helper, to a more viable healthy nail plate or bed tissue 6- 10 nails in total. Silver nitrate was used for any petechial bleeding as necessary. Definitive antifungal treatment options, both pharmaceutical and surgical, have been reviewed and discussed with the patient. The patient solely prefers the use of intermittent/as needed professional debridement services for their nail condition and understands the need for additional periodic treatments to maintain effectiveness in symptomatic relief - 43720.?Keratoma Treatment:?Parring or Cutting of Benign Hyperkeratotic Lesion(s)?(-57) More than 4 Lesions - Due to the at risk nature of the patients medical condition as documented in the exam findings, performance of this keratoderma treatment is medically necessary as its management by an unskilled/untrained nonprofessional would put this patients foot and overall health at risk. Therefore, the benign hyperkeratotic lesions, ( 8) in total, locations as stated and described in the exam (?Medial,?IPJ,?TA,?Medial,?IPJ,?T5,?SUB MTH (s),?1,?B/L,?SUB MTH (s),?5,?B/L,?Plantar Heel(s),?B/L), were pared, and/or cut utilizing a sterile 15 blade, tissue nippers, and/or power dremel instrumentation by the physician of record - 13994, Q8.? * Procedure Codes:?07179 DEBRI DE NAIL, 6 OR MORE, Modifiers: XS 43868 TRIM SKIN LESIONS, OVER 4, Modifiers: XS , Q8 * Preventive Medicine:? ??Counseling:?Discussion:?-04: Office or other outpatient visit for the evaluation and management of a new patient, which required a medically appropriate history and/or examination and MODERATE level of DECISION MAKING for: 1 OR MORE CHRONIC PROBLEM(S) THATS WORSENING, 2 STABLE CHRONIC PROBLEMS, A NEWLY DIAGNOSED PROBLEM WITH UNCERTAIN PROGNOSIS, AN ACUTE COMPLICATED INJURY WITH MULTIPLE TREATMENT OPTIONS, OR AN ACUTE PROBLEM WITH ACCOMPANYING SYSTEMIC SYMPTOMS, THAT POSE(S) A MODERATE RISK OF MORBIDITY. THIS CONDITION MAY ALSO INCLUDE RX DRUG MANAGEMENT, OR A DECISON FOR MINOR SURGERY. The visit on the day of the encounter encompassed interpreting the data and educating the patient as to the nature of their condition, treatment options available according to their individual PMH, meds, allergies, and overall health/living conditions, as well as any potential risks or complications that may occur from a failure to adhere to, and participate in, the recommended course of therapy. The discussion included a complete verbal, and/or written explanation of the examination results, any x-rays taken, the proposed diagnosis, and outline of the treatment plan. A schedule for future care needs was also explained. The patient verbalized an understanding of the instructions at this time and agreed to be an active participant in their treatment. If the patient should think of any questions or concerns after the visit, I have encouraged the patient to call the office.?Digital Surgery:?Digital surgery was discussed with the patient, We elected to try conservative treatment at the present time, due to the patients medical history and increased asssociated post-operative risks.?Digital Treatment:?HT- I explained to the patient the possible etiologies of Hammertoes, including genetics/foot type/shoegear/activity level/exercise routine and the risks/benefits of all the different treatment options for their pain including: No treatment at all, Rest, Ice, New/supportive/wider/deeper Shoegear, Digital Padding/Strapping/Taping/Bracing/Gel protective sleeves, Foot/Ankle AFO Bracing, Stretching exercises, Deep Tissue Massage, Arch support/shoe inserts with splay metatarsal padding, and Custom orthoses. I insisted that any digital devices be removed daily and not worn overnight for safety. The patient is to carefully examine the toes daily for any skin irritation while using any splinting or padding device. The advantages and disadvantages of each option were discussed and the patients questions re: shoegear, padding, custom vs prefabricated inserts, activity level, and consistency in home treatment regimens for optimal success were answered to their verbally confirmed satisfaction.?Shoe Gear Counseling:?SHOE Rx - The patient was counseled in great detail on their muscoloskeletal foot and toe deformities which coincided with the dermatological presentations visualized on exam. We discussed how their deformities put the integrity of their feet at risk for potential pedal complications which makes the accomidative diabetic shoes and cutomizable inserts medically necessary. We discussed the different shoe and insert treatment types and options, as well as the important advantages for adhering to regularly wearing these accomidative devices daily. The patient was made aware of the fact that a failure to abide by these recommedations may be deleterious to their foot health as they are able to prevent many pedal complications such as skin irritation, skin ulceration, infection, and even loss of toe/foot/leg/or life. Time was also spent with the patient dispensing and discussing proper diabetic footcare techniques including daily skin moisturization, daily foot inspection for any interruption in skin integrity including open lesions, or sign of infection such as redness/malodor/drainage/swelling. Also discussed and recommended were procedures regarding daily shoe inspection for the presence of internal foreign bodies as well as any visualized irregular shoe or insert wear. Patient questions re: shoes, inserts, and self foot inspections were answered to their satisfaction as the patient verbally confirmed a full understanding of the above information. A Rx for Extra Depth Orthopedic Shoes with 3 pair of custom heat-molded inserts was dispensed.?Tinea Pedis:?The patient was counseled on the diagnosis, potential etiologies, and treatment options for their skin condition. We discussed the risks and benefits of each option from performing no treatment, to utilizing OTC topical skin creams, prescription topical creams, customized compounded topical medications, and, if necessary, to utilize oral antifungal therapy. We discussed the advantages and disadvantages of each possible treatment and importance for adherence to all the recommended therapies for optimum success and avoid potential complications such as open sore/infection/possible hospitalization. We discussed the potential effectiveness of each topical preparation as well as each ones possible side effects and/or patient medication interactions if oral therapy is selected. Patient questions re: the advantages and disadvantages of each treatment choice, medication use/dosage, successful outcomes, and application consistency were reviewed and the patient verbalized that all answers were clearly understood. The patient was told they can help alleviate symptoms by utilizing moisture absorbant innersoles with activated charcoal and baking soda, applying antifungal sprays daily, aerating toe web spaces at night by putting cotton or lambs wool between the toes, alternating shoe gear daily if possible so they can dry out, changing socks at least once during the day, wearing well-ventilated shoes or sandals. The patient has decided to apply antifungal skin creams to their feet as directed. Rx was sent to their pharmacy at the time of visit.? ??Screening/Special Tests:?Fall Risk?Screening:?No falls in the past year ?FALLS: Screening for Future Fall Risk?Have you had any falls with injury in the past year??No * Follow Up:?2 Months * Images: * Sign off status: Completed true * Provider:?Keenan Dyer DPM Date:?2024 Generated for Tray henderson/Georgie/Gunjan on:?09/16/2024 01:09 PM EST History and Physical Notes * HPI (History of Present Illness) Category Sub-Category Detail Notes Category Not es Toe pain Location: B/L feet Duration: several years Course: worse Aggravated by: shoes, any pressure Treatments: change in shoes Skin problems Nature: scaling , redness Location: B/L Duration: several days Course: worse At Risk footcare Pt States Last PCP Visit: Date: 4 [facility] [place] Patient accompanied by, Daughter, ALBIN, who serves as, Surgical Consultant/Dietary Service Aide, and/who is physically present in exam room at time of visit, who is physically present in exam room at time of visit Examination Category Sub-Category Detail Notes Category Not es Neurological SENSORY: Neurological exa m reveals intact sensorium, pain sensation normal, vibration sensation intact, pinprick sensation is normal in the lower extremities, 5.07 monofilament test performed at plantar aspects of 5 varied sites per foot shows sensation, normal, B/L, Pt denies, anesthesia, burning, paresthesia, tingling, B/L Dermatologic SKIN FINDINGS: Skin exam reveal s Keratotic lesion(s) located at, Medial, IPJ, TA, Medial, IPJ, T5, SUB MTH (s), 1, B/L, SUB MTH (s), 5, B/L, Plantar Heel(s), B/L , Skin shows sign(s) of, erythema, scaling, in a moccasin fashion, no fissure(s) present, B/L Orthopedic GAIT ABNORMALITY: apropulsive, u nstable/unsteady relating occasional difficulty with balance, walker-assisted FOOTWEAR: worn, non-supportive , shoe gear properties exacerbate patient's foot/toe deformity DIGITAL DEFORMITIES: Digital contracture , PIPJ, 2-5 B/L, incompl-reducible to push-up test, no over, nor underlapping, there is evidence of shoe producing skin irritation MUSCLE STRENGTH: 5/5 all groups in a symmetrical fashion, B/L General Examination GENERAL APPEARANCE: Reveals a pleasant, alert, well nourished, well-developed, well hydrated individual, who demonstrates proper attention to hygiene/body habitus, and is in no acute distress, Pt serves as own historian for office visit today FOOT EXAM: Lower Extremity Neurological Exa m performed:: Yes Date Visual exam of foot performed:: Yes Date: 08/16/2024 ORIENTED: person, place, and t garcía Footwear Evaluation Footwear Evaluation performe d:: Yes Ophthalmology Referral DIABETES EYE EXAM Procedure Perform ed:: Yes ?Date of Exam Performed: 08/16/2024 Findings of Diabetic Eye Exam:: no retin opathy Vascular DP PULSES (B): 0/4, B/L PT PULSES (B): 0/4, B/L CAPILLARY FILL TIME: delayed, all digits , B/L TEMPERTURE GRADIENT (C): decreased, cool to cool, proximal to distal, B/L TROPHIC CONDITION-TEXTURE/ELASTICITY/TURGOR/HAIR GROWTH (B): decreased, fragile, thin, shiny, with sp arse to absent hair growth, B/L EDEMA (C): 3/4, pitting, withou t aching pain, Leg(s), Ankle(s), Foot, B/L CLAUDICATION (C): denies, B/L REST PAIN: denies, B/L PIGMENTATION: rubrous, B/L PARESTHESIA (C): absent, B/L BURNING (C): absent, B/L Nails NAILS are: Elongated, overg rown, dystrophic, lytic, greater than 3mm thick, discolored and friable with crumbly malodorous subungual debris, with pain on palpation, TA, T1, T2, T3, T4, T5, T6, T7, T8, T9
--- OUTSIDE RECORDS SUMMARY | 2024-09-16 13:09 | XMS_ITS ---
Author Organization [facility] Address [address] [place] [address] Care Team Providers Care Hardware Trainer Name Role Phone Valeri Lerner Primary Care Provider UnavailKeenan Dalton [phone] REASON FOR VISIT paid ADA Encounters Encounter Location Date Provider Diagnosis [address] [address] 04/23/2024 Keenan Dyer Plan Of Treatment Next Appt Details Provider Name:Keenan Dyer , 11/22/2024 01:30:00 PM, [address] [place] [address], [phone], Progress Notes * WOOD HanyB:[birth year] (88 yo F)Acc No.[id number]:04/23/2024 Patient:?Anna Woodlia :1935???Age:88 Y???Sex:Female Address:[address] [place] [address], [phone] * true * Date:? Generated for Printi ng/Fadavieg/eTransmitting on:?09/16/2024 01:09 PM EST
--- OUTSIDE RECORDS SUMMARY | 2024-09-16 13:10 | XMS_ITS | Patient Health Record ---
Author Organization [facility] Address [address] [facility] [address] Care Team Providers Care Lead Qa Analyst Name Role Phone Valeri Lerner Primary Care Provider Keenan Lowery Unavailable [phone] Allergies Allergen (clinical drug ingredient) Drug/Non Drug Allergy documented on EMR Reaction Allergy Type Onset Date Status aspirin Aspirin stomach pain Drug Allergy Acti ve Motrin Unknown Drug Allergy Active acetaminophen / oxycodone Percocet Unknown Drug Allergy Active Robitussin Cough Long-Acting Unknown Drug Allergy Active Shrimp Flavor Unknown Drug Allergy Act cliff Penicillin Unknown Drug Allergy Active Results Component Value Reference Range Notes HEMOGLOBIN A1C (GLYCOHEMOGLO BIN) Reviewed date:08/16/2024 12:42:58 PM Interpretation: Performing Lab: Notes/Report: HEMOGLOBIN A1C % (HH) 7.0 Reason For Referral No Information Medications Medication SIG (Take, Route, Frequency, Duration) Notes Start Date End Date Status Omeprazole 20 MG Orally Act cliff Ciclopirox Olamine 0.77 % 1 application Externally Twice a day to skin of feet including between the toes for 30 days Active Furosemide Active Atorvastatin Calcium Active HumaLOG KwikPen 100 UNIT/ML INJECT 24 - 28 units WITH BREAKFAST, INJECT 24 UNITS WITH LUNCH, AND INJECT 26 UNITS WITH DINNER Subcutaneous for 18 Unknown Tab-A-Judith Active Simvastatin Unknown Mephyton Unknown Lasix Unknown VESIcare 10 MG Orally Unkno wn Warfarin Sodium 3 MG Orally Active Sertraline HCl 50 MG Orally Active clonazePAM Unknown Lantus SoloStar 100 UNIT/ML INJECT 28 UNITS EVERY DAY DIRECTED Subcutaneous for 54 Active Extra Depth Orthopedic Shoes, (1) Pair With (3) Pair Custom Heat Molded Multidensity Innersoles Dx: NIDDM/PVD(E11.51), Hammertoe Foot Deformity(M20.41,M20.42), Preulcerative Skin Lesion(s)(L85.1) Wear Daily for 365 days 08/16/2024 Active Metoprolol & Diet Manage Prod Active Trulicity Unknown Metformin & Diet Manage Prod Active Arestin Unknown Fluticasone Propionate Active Advair Diskus Active Levothyroxine Sodium Active Ipratropium [place] Active Sucralfate Active Vitamin D3 Active Insulin Lispro Activ e Docusate Sodium Acti ve Immunizations Vaccine Route Administration Date Status Comme nts Influenza Unknown 05/30/2016 Administered Influenza Unknown 04/03/2017 Administered Influenza Unknown 04/30/2018 Administered Social History Tobacco Use: Social History Observation Description Date Details (start date - stop date) Never Smoker NA - NA Tobacco use other than smoking: Question Answer Notes Are you an other tobacco user? No Tobacco Control (Standard) Question Answer Notes Tobacco use: Nonsmoker Additional Findings: Tobacco non-user Current no nsmoker Problems Problem Type SNOMED Code ICD Code Onset Dates Problem Status W/U Status Risk Notes Problem Acquired hammer toe of right foot (3178169907563 105) Other hammer toe(s) (acquired), right foot (M20.41) Active confirmed Problem Type 2 diabetes mellitus with peripheral angiopathy (051445137) Type 2 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) Active confirmed Q7(A), Q8(2B), Q9(1B,2C) Problem Acquired hammer toe of left foot (7283318618449 103) Other hammer toe(s) (acquired), left foot (M20.42) Active confirmed Vital Signs Blood pressure diastolic 70 mm Hg 08/16/2024 Height 5 ft 5 in in 08/16/2024 Blood pressure systolic 130 mm Hg 08/16/2024 Weight 230 lbs 08/16/2024 BMI 38.27 kg/m2 08/16/2024 Procedures Procedure Date Ordered Date Performed Result Body Sit e 79040-JDBHDCW NAIL, 6 OR MORE 08/16/2024 N/A 94601-GAWE SKIN LESIONS, OVER 4 08/16/2024 N/A Encounters Encounter Location Date Provider Diagnosis [address] [address] 08/16/2024 Keenan Dyer Type 2 diabetes mellitus with diabetic peripheral angiopathy without gangrene E11.51 ; Tinea unguium B35.1 ; Pain in right toe(s) M79.674 ; Pain in left toe(s) M79.675 ; Other hammer toe(s) (acquired), left foot M20.42 ; Other hammer toe(s) (acquired), right foot M20.41 and Tinea pedis of both feet B35.[address] [address] 04/23/2024 Keenan Dyer [address] [address] 05/16/2024 Keenan Dyer Assessments Encounter Date Diagnosis (ICD Code) Assessment [...] feet (ICD-10 - B35.3) Plan Of Treatment Pending Test Test Name Order Date 76869-HVCJANO NAIL, 6 OR MORE 10/27/2016 57630-ZSUDJXH NAIL, 6 OR MORE 05/09/2017 21314-PZIBBNJ NAIL, 6 OR MORE 08/21/2017 77554-NHVIUBL NAIL, 6 OR MORE 01/26/2017 34221-ILRALUF NAIL, 6 OR MORE 01/29/2018 07530-YEESIBB NAIL, 6 OR MORE 07/09/2018 67155-QLRNMYV NAIL, 6 OR MORE 11/22/2018 65617-KKARMXV NAIL, 6 OR MORE 08/16/2024 78619-BLFJJUU NAIL, 1-5 12/21/2015 11518-YBBHSBG NAIL, 1-5 05/30/2016 71518-KEZTOJP NAIL, 1-5 02/18/2015 19008-IIVTICR NAIL, 1-5 05/27/2015 51689-JRDBFBK NAIL, 1-5 09/23/2015 13568-Zdqeiogq Plate 02/18/2015 45811-Pwnnbxtn Plate 05/30/2016 66670-Mrgskbnh Plate 12/21/2015 71469-Inihoelg Plate 09/23/2015 87310-Cahuxrsb Plate 10/27/2016 00137-Ulbqzryx Plate 01/07/2019 95827-YEHN SKIN LESIONS, OVER 4 07/09/20 18 87480-ISQZ SKIN LESIONS, OVER 4 05/09/20 17 24731-JVAW SKIN LESIONS, OVER 4 08/16/19 25 30630-HAGN SKIN LESIONS, OVER 4 11/23/19 19 15217-YPSF SKIN LESIONS, OVER 4 10/28/19 17 82081-LCMK SKIN LESIONS, OVER 4 01/27/20 17 41439-DIYQ SKIN LESIONS, OVER 4 08/21/19 18 16930-UIRQ SKIN LESIONS, OVER 4 01/30/20 18 61320-QMCF SKIN LESIONS, 2 TO 4 02/19/20 15 06146-AMBJ SKIN LESIONS, 2 TO 4 05/27/20 15 66052-BUXT SKIN LESIONS, 2 TO 4 09/23/19 16 93033-OZCA SKIN LESIONS, 2 TO 4 12/21/19 16 97274-SVLU SKIN LESIONS, 2 TO 4 05/30/20 16 16484-Xfvf. Subungual Hematoma 9 W5486-WVYCLWCA DYSTROPHIC NAILS ANY # Y3915-GGUAMZJI DYSTROPHIC NAILS ANY # Z7579-JELYWKOY DYSTROPHIC NAILS ANY # X1199-WSRRBMEP DYSTROPHIC NAILS ANY # Next Appt Details Provider Name:Keenan Dyer , 11/22/2024 01:30:00 PM, [address] [place], [address], Insurance Providers Payer Name Payer Address Payer Phone Subscriber Number Group Number Insured Name Patient Relationship to Insured Coverage Start Date Coverage End Date [employer] Medicare-[id number] [address] [place] [address] [id number] Nikky Morgan Self - patient is the insured Medical (General) History Medical History History ICD Code Anxiety Arthritis asthma Back,Hip,and Knee pain Broken bones Diabetic Stroke Thyroid disorder blood clots Gout Heart disease Surgical History Surgery Date(Month/Year) cataract surgery left eye 11/09/2018 Hospitalization History Reason Date(Month/Year) [facility] for a cough 2017
--- OUTSIDE RECORDS SUMMARY | 2024-09-16 13:10 | XMS_ITS ---
Author Organization [facility] Address [address] [place] [address] Care Team Providers Care Knitting Machine Operator Name Role Phone Valeri Lerner Primary Care Provider UnavailKeenan Dalton Unavailable [phone] REASON FOR VISIT PASTA MAKER PPWK Entered Encounters Encounter Location Date Provider Diagnosis [address] [address] 05/16/2024 Keenan Dyer Plan Of Treatment Next Appt Details Provider Name:Keenan Dyer , 11/22/2024 01:30:00 PM, [address] [place] [address], [phone], Progress Notes * ISREAL HanyB:[birth year] (88 yo F)Acc No.[id number]:05/16/2024 Patient:?Anna Morganlia :1935???Age:88 Y???Sex:Female Address:[address] [place] [address], [phone] * true * Date:? Generated for Catherinei santiago/Michelleg/eTransmitting on:?09/16/2024 01:09 PM EST
[2024-09-16 13:13] LABS: Influenza A PCR POSITIVE (Negative); Influenza B PCR NEGATIVE (Negative); Resp Syncy Virus RNA Qual PCR NEGATIVE (Negative); SARS COV2 PCR INHOUSE NEGATIVE (Negative)
[2024-09-16 13:20] LABS: Alanine Aminotransferase 14 U/L (0-31); Albumin Level 3.8 g/dL (3.5-5.0); Alkaline Phosphatase 89 U/L (39-117); Anion Gap 13 (12-20); Aspartate Amino Transferase 26 U/L (5-31); Bilirubin Direct 0.3 mg/dL (0.0-0.5); Bilirubin Total 0.6 mg/dL (0.0-1.0); Blood Urea Nitrogen 16 mg/dL (9-16); C Reactive Protein 6.48 mg/dL (< or = 0.50); Calcium 9.4 mg/dL (8.4-10.2); Carbon Dioxide 27 mmol/L (22-29); Chloride 100 mmol/L (96-108); Creatinine Clr Calc Pharmacy 51.2; Estimated Glomerular Filt Rate 58; Glucose Random 137 mg/dL (60-115); Potassium 3.3 mmol/L (3.3-5.1); Sodium 137 mmol/L (135-145)
[2024-09-16 13:24] LABS: Procalcitonin 0.06 ng/mL
[2024-09-16 13:26] LABS: Magnesium 1.3 mg/dL (1.6-2.6)
--- NOTE | 2024-09-16 13:40 | ED.FEVER ---
HPI - Fever General Chief Complaint: Fever Stated Complaint: SOB Time Seen by Provider: 09/16/24 11:45 Source: patient, family, EMS, old records reviewed and time study technician Mode of arrival: EMS Limitations: no limitations History of Present Illness ED Provider: ADILENE HPI Narrative: 89 yo female with PMH of pneumonia, obesity, hypothyroidism, afib on coumadin, DVT, arthritis, CVA, CAD, HLD, HTN, has IVC filter, 1st degree AVB, CHF here with c/o having a cough and upper abdominal pain for a day. 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 She states her son was sick last week but doesn't know what it was and he is better now. She has joint pain everywhere. She denies any recent travel or procedures. She has nausea but no vomiting or fevers. MD elicited complaint: fever, malaise and weakness Onset (ago): day(s) (1) Context: sick contacts Exacerbating factors: nothing Relieving factors: nothing Associated symptoms: chills, cough, abdominal pain and nausea Treatments prior to arrival fever: none Related Data Home Medications ?Medication ?Instructions ?Recorded ?Confirmed atorvastatin 20 mg tablet 20 mg PO BEDTIME 05/21/20 03/22/24 blood sugar diagnostic #10 ea 05/21/20 03/22/24 cholecalciferol (vitamin D3) 50 50 mcg PO DAILY 05/21/20 03/22/24 mcg (2,000 unit) tablet fluticasone 500 mcg-salmeterol 50 1 inh inhalation BID 05/21/20 03/22/24 mcg/dose blistr powdr for inhalation fluticasone propionate 50 2 spray intranasal DAILY 05/21/20 03/22/24 mcg/actuation nasal spray,suspension lancets #100 ea 05/21/20 03/22/24 levothyroxine 100 mcg tablet 100 mcg PO DAILY@0600 05/21/20 03/22/24 omeprazole 20 mg capsule,delayed 20 mg PO BID@0630,1630 05/21/20 03/22/24 release pen needle, diabetic 32 gauge x #50 ea 05/21/20 03/22/24 sertraline 50 mg tablet 50 mg PO DAILY 05/21/20 03/22/24 metoprolol tartrate 25 mg tablet 12.5 mg PO BID 12/17/20 03/22/24 nebulizers (Sidestream misc) #1 ea 05/14/21 03/22/24 multivitamin-iron sulfate 15 1 tab PO QAM 12/15/21 03/22/24 mg-folic acid 400 mcg tablet (Tab-A-Judith Multivitamin w-iron) insulin lispro 100 unit/mL 8 unit subcut TIDAC 06/26/22 03/22/24 subcutaneous pen (Humalog KwikPen (U-100) Insulin) metformin 500 mg tablet,extended 500 mg PO BIDWM 09/20/22 03/22/24 release 24 hr clonazepam 0.5 mg tablet 0.5 mg PO BEDTIME 04/19/23 03/22/24 docusate sodium 100 mg capsule 100 mg PO BID 04/19/23 03/22/24 solifenacin 5 mg tablet 5 mg PO DAILY 10/17/23 03/22/24 acetaminophen 650 mg 650 mg PO Q8H PRN Pain/Fever 02/09/24 03/22/24 tablet,extended release betamethasone valerate 0.1 % 1 appl topical BID PRN dryness 02/09/24 03/22/24 topical cream clotrimazole 1 % vaginal cream 1 appl vaginal BID PRN Irritation 02/09/24 03/22/24 ipratropium 0.5 mg-albuterol 3 mg 3 ml inhalation QID PRN 02/09/24 03/22/24 (2.5 mg base)/3 mL nebulization SOB/Cough/Wheezing soln sucralfate 1 gram tablet 1 g PO TIDAC 02/09/24 03/22/24 triamcinolone acetonide 0.1 % 1 appl topical BID PRN Rash 02/09/24 03/22/24 topical ointment warfarin 3 mg tablet 1.5 - 3 mg PO DAILY 02/09/24 03/22/24 Previous Rx's ?Medication ?Instructions ?Recorded insulin glargine 100 unit/mL (3 25 unit (0.25 mL) subcut DAILY #15 12/15/21 mL) subcutaneous pen (Lantus mL Solostar U-100 Insulin) lactulose 20 gram/30 mL oral 20 g (30 mL) PO DAILY #1,200 mL 02/13/24 solution furosemide 20 mg tablet 60 mg (3 x 20 mg) PO QAM #90 tabs 09/05/24 Allergies Allergy/AdvReac Type Severity Reaction Status Date / Time shellfish derived Allergy Severe Hives Verified 09/16/24 12:26 aspirin [Aspirin] Allergy Mild Gastrointestinal Verified 09/16/24 12:26 Upset ibuprofen Allergy Unknown Unknown Verified 09/16/24 12:26 oxycodone [From PERCOCET] Allergy Unknown PALPITATION Verified 09/16/24 12:26 S Robitussin Cold Cough+ Chest Allergy Intermediate hives Uncoded 09/16/24 12:26 SEAFOOD Allergy Intermediate hives Uncoded 09/16/24 12:26 Review of Systems Review of Systems: Constitutional : No Weight loss, pos Fever, pos Chills ENT/Mouth : No sore throat, No Rhinorrhea Eyes: No Swelling, No Redness Cardiovascular : No Chest Pain, No SOB, No Edema Respiratory : pos Cough, No Sputum, No Wheezing Gastrointestinal : Positive Nausea, no Vomiting, no Diarrhea, positive abdominal Pain, No Hematochezia, No Melena Genitourinary : No Dysuria, No Urinary Frequency, No Hematuria, No Urgency Musculoskeletal : No joint pain, No Myalgias, No Joint Swelling Skin : No Skin Lesions, No rash Neuro : No Weakness, No Numbness, No Dizziness, No Headache Psych : No Anxiety/Panic, No Depression All other systems reviewed and are negative. [facility] Past Medical History Attestation statement: The following information was validated with the patient. Source: old records reviewed Medical History CHF (congestive heart failure) Pneumonia Multiple falls Acute on chronic respiratory failure with hypoxemia Weakness Urgency incontinence Menopause Well woman exam Current use of anticoagulant therapy Stenosis of carotid artery Diabetes type 2, controlled Sepsis Gastroenteritis Hypoxia Pneumonia Urinary incontinence Obesity due to excess calories Type 2 diabetes mellitus with diabetic polyneuropathy Senile cataract of left eye Essential hypertension Hyperlipemia Paroxysmal A-fib Anxiety disorder Hypothyroidism Coronary artery disease History of cerebrovascular accident Osteoarthritis Osteopenia Deep vein thrombosis Hearing loss Surgical History H/O colonoscopy H/O breast surgery S/P IVC filter History of bilateral tubal ligation Family History Family History Father Heart disease CVD (cardiovascular disease) Mother Diabetes Social History Social History Household Members: None Housing: Apartment Do you presently have visiting nurse or other home services: Yes Alcohol intake: never Patient Tobacco Use Status: Former Tobacco user Tobacco use type: Cigarette Smoked in Last 30 Days: No Use of substances other than those prescribed or required for medical reasons: No Advance Directives: Yes Advance Directives on File: Yes Advance Directives Date on File: 07/01/22 Do you have a plan to hurt others: No Plan service: No Current occupational status: unemployed Sexual orientation: Straight/Heterosexual Gender identity: Female Physical Exam Vital Signs: Vital Signs: Last Vital Signs Temp 100.6 F H 09/16/24 14:15 Pulse 81 09/16/24 14:30 Resp 19 09/16/24 14:30 BP 102/54 L 09/16/24 14:30 Pulse Ox 97 09/16/24 14:30 O2 Del Method Nasal Cannula 09/16/24 14:30 O2 Flow Rate 2 09/16/24 14:30 BMI result Body Mass Index 32.8 Appearance: Alert. Oriented X3. No acute distress. Eyes: Pupils equal, round and reactive to light. ENT: Pharynx dry MM Neck: Normal inspection. Neck supple. CVS: tachycardic heart rate and rhythm. Pulses normal. Respiratory: No respiratory distress. Breath sounds coarse and wheezy Abdomen: Soft and mild LUQ ttp no rebound or guarding Skin: Skin warm and dry. Normal skin color. Normal skin turgor. Extremities: No lower extremity edema. Neuro: Oriented X 3. No motor deficit. No sensory deficit. CN2-12 intact Medications Administered Generic Name Dose Route Start Last Admin Trade Name Freq PRN Reason Stop Dose Admin Magnesium Sulfate 2 gm in 50 mls @ 25 mls/hr 09/16/24 13:25 09/16/24 14:36 Magnesium Sulfate/H2o IV 09/16/24 15:24 25 mls/hr ONCE ONE Administration Azithromycin 500 mg/ Sodium 250 mls @ 125 mls/hr 09/16/24 14:30 09/16/24 14:55 Chloride IV 09/16/24 16:29 125 mls/hr ONCE ONE Administration Discontinued Medications Generic Name Dose Route Start Last Admin Trade Name Freq PRN Reason Stop Dose Admin Albuterol Sulfate 2.5 mg/ 0 mg 09/16/24 12:47 09/16/24 12:52 Albuterol/Ipratropium 3 ml INHALE 09/16/24 12:48 5 dose ONCE ONE Administration Lactated Ringer's 1,000 mls @ 999 mls/hr 09/16/24 12:25 09/16/24 13:46 Lr IV 09/16/24 13:25 Infused .Q1H1M ONE Infusion Acetaminophen 1,000 mg in 100 mls @ 400 mls/hr 09/16/24 12:25 09/16/24 13:46 Ofirmev IV 09/16/24 12:39 Infused ONCE ONE Infusion Piperacillin Sod/Tazobactam 50 mls @ 100 mls/hr 09/16/24 12:26 09/16/24 13:03 Sod 3.375 gm/ Sodium Chloride IV 09/16/24 12:55 Infused ONCE ONE Infusion Methylprednisolone Sodium Succinate 60 mg 09/16/24 12:33 09/16/24 12:50 Methylprednisolone Sod Succ 125 Mg/2 Ml Vial IVPUSH 09/16/24 12:34 60 mg ONCE ONE Administration Ondansetron HCl 4 mg 09/16/24 12:25 09/16/24 12:45 Ondansetron Hcl 4 Mg/2 Ml Vial IVPUSH 09/16/24 12:26 4 mg ONCE ONE Administration Oseltamivir Phosphate 75 mg 09/16/24 13:15 09/16/24 14:37 Oseltamivir Phosphate 75 Mg Capsule PO 09/16/24 13:16 75 mg ONCE ONE Administration Medical Decision Making Medical Decision Making MDM Narrative: 89 yo female with PMH of pneumonia, obesity, hypothyroidism, afib on coumadin, DVT, arthritis, CVA, CAD, HLD, HTN, has IVC filter, 1st degree AVB, CHF now here with c/o fever today and dry cough. She notes her son was sick last week but recovered. On exam she has wheezes and is requiring new O2, she is hot to touch as well. She denies travel. She will need labs, cultures, CXR for pneumonia. She has no signs of edema on exam. Doubt VTE INR therapeutic - could be flu A as well given new O2 requirements anticipate admission BNP elevated but no signs of CHF held fluids Differential Diagnosis Differential Diagnoses: The differential diagnosis associated with the presentation includes flu, pneumonia, gastritits Admission/Observation Consideration of admission/observation: Escalation of care including admission/observation considered needs O2 - sats in 80s on RA will admit for hypoxia, flu A and pneumonia Consult Healthcare Provider Management of the patient was discussed with: Hospitalist (will admit) Lab Data MDM Lab Attestation statement: I reviewed the patient's lab results. IV magnesium ordered for repletion 09/16/24 12:30 09/16/24 12:30 Labs: Lab Results 09/16/24 09/16/24 Range/Units 12:30 12:34 WBC 8.5 (4.8-10.8) X10*3/uL RBC 4.01 L (4.20-5.50) X10*6/uL Hgb 12.6 (12.0-16.0) g/dl Hct 37.7 (37.0-47.0) % MCV 94.0 (80.0-98.0) fL MCH 31.4 (27.0-33.0) pg MCHC 33.4 (31.0-35.0) g/dl RDW 13.6 (11.0-16.0) % Plt Count 134 L (160-400) X10*3/uL MPV 11.2 (9.4-12.3) fL Immature Gran % (Auto) 0.4 (0.0-0.4) % Neut % (Auto) 82.1 H (45-73) % Lymph % (Auto) 10.4 L (20-40) % [place] % (Auto) 6.7 (2-11) % Eos % (Auto) 0.0 (0-4) % Baso % (Auto) 0.4 (0-2) % Lymph # (Auto) 0.9 L (1.2-4.9) X10*3/uL [place] # (Auto) 0.6 (0.1-1.2) X10*3/uL Eos # (Auto) 0.0 (0.0-0.4) X10*3/uL Baso # (Auto) 0.0 (0.0-0.2) X10*3/uL Abs Immat Gran (auto) 0.03 (0.00-0.03) X10*3/uL Absolute Neuts (auto) 7.0 (2.0-8.3) x10*3/uL Absolute Nucleated RBC 0.000 (0.0-0.012) X10*3/uL Nucleated RBC % (auto) 0.0 (0.0-0.2) /100WBC PT 23.5 H D (10.9-12.4) SEC INR 2.0 H (0.9-1.1) VBG pH 7.49 H (7.32-7.43) VBG pCO2 39 mmHg VBG pO2 57 mmHg VBG HCO3 30 H (22-26) mmol/L VBG O2 Saturation 89.0 % VBG Base Excess 6.7 mmol/L Sodium 137 (135-145) mmol/L Potassium 3.3 D (3.3-5.1) mmol/L Chloride 100 (96-108) mmol/L Carbon Dioxide 27 (22-29) mmol/L Anion Gap 13 (12-20) BUN 16 (9-16) mg/dL Creatinine 0.91 (0.5-1.4) mg/dL Estim Creat Clear Calc 51.2 Estimated GFR 58 Random Glucose 137 H (60-115) mg/dL Lactic Acid 1.3 (0.5-2.0) mmol/L Calcium 9.4 (8.4-10.2) mg/dL Magnesium 1.3 L* (1.6-2.6) mg/dL Total Bilirubin 0.6 (0.0-1.0) mg/dL Direct Bilirubin 0.3 (0.0-0.5) mg/dL AST 26 (5-31) U/L ALT 14 (0-31) U/L Alkaline Phosphatase 89 (39-117) U/L Troponin I High Sens 45.0 H D (<3.5-17.0) ng/L C-Reactive Protein 6.48 H (< or = 0.50) mg/dL B-Natriuretic Peptide 1122 H (<100) pg/mL Total Protein 8.0 (6.5-8.0) g/dL Albumin 3.8 (3.5-5.0) g/dL Procalcitonin 0.06 ng/mL Influenza Type A (PCR) POSITIVE A (Negative) Influenza Type B (PCR) NEGATIVE (Negative) RSV RNA Qual (PCR) NEGATIVE (Negative) SARS-CoV-2 RNA (RT-PCR) NEGATIVE (Negative) Independent Interpretation I performed an independent interpretation of an: EKG, Plain X-Ray (retrocardiac opacity) and CT Scan (no acute cause of L sided abd pain) Interpretation: Rate: 85 Rhythm: NSR 1st degree AVB [place]: normal Normal P waves. 1st degree AVB Normal QRS complex. ST T wave : no ANDREE, nonspecific ST T wave changes qTC: 433 prior studies: similar to September EKG The study has been interpreted contemporaneously by me. . Radiology Impression Discussion of test interpretation with radiology: I have reviewed the radiologist's reading. Independent Historian Clinical information obtained from an independent historian. History obtained from or confirmed by: EMS and Other (daughter) External Record Review External record reviewed: Inpatient record and Outpatient record Critical Care Time Critical Care Time Critical Care Time: Yes Total Critical Care Time: 60 Attestation: IV magnesium, sepsis protocol, review of records, hypoxia intervention I attest to this time spent taking care of the patient Discharge Plan Discharge Clinical Impression: Influenza A, Fever and chills, Hypomagnesemia, Opacity of lung on imaging study, Hypoxia Patient Disposition: Admitted As Inpatient Print Language: Upper Sorbian
[2024-09-16] MEDS: Magnesium Sulfate/H2O 2 GM/50 ML PIGGYBACK IV (14:36)
[2024-09-16] MEDS: Oseltamivir Phosphate 75 MG CAPSULE PO (14:37)
--- NOTE | 2024-09-16 14:52 | PM.IMHP ---
History of Present Illness Date of Service: 09/16/24 Attending physician on admission: Hemanth Mahmood Chief Complaint: Fever and myalgias Pt is an 89-year-old female with a PMH significant for?CHF, paroxysmal AFib on warfarin, HTN, HLD, insulin-dependent type 2 diabetes, hypothyroidism, hx of DVT with IVC filter in place, and GERD who presents to the ED with?fever, abdominal pain, shortness breath, and cough x2 days. Pt lives at home with family and has had some sick contacts with similar symptoms. Pt complains of all-over body pain, though especially in left side and left lower back. Cough has been occasionally productive of yellowish sputum. Has had chest tightness associated with cough. No nausea or vomiting, but 1-2 episodes of loose stool. Pt has been feeling overall weak and fatigued, was unable to ambulate earlier today. Normally can walk across the room with her walker. Was found to be febrile at home up to 102 by HOTEL DIRECTOR, and satting at 83% on RA by EMS. HOTEL DIRECTOR report pt with chronic LLE at baseline. In the ED pt was febrile up to 102.1, tachycardic up to 102, tachypneic up to 24, and hypoxic at 88% on RA. Labs were significant for testing positive for influenza, magnesium 1.3, initial troponin 45.0, CRP 6.48, and BNP 1122. No leukocytosis. Stable H&H. Procalcitonin WNL at 0.06. No significant electrolyte abnormalities. Renal function WNL. Hepatic function WNL. CXR showed possible focus of atelectasis or infiltrate and retrocardiac region. CT?of abdomen and pelvis negative for acute abdomen, though did show colonic diverticulosis and cholelithiasis. EKG demonstrated sinus rhythm with first-degree AV block but no evidence of significant ST elevations or depressions. Pt was treated with acetaminophen, IVF, ondansetron, Mag sulfate, DuoNebs, Solu-Medrol, Tamiflu, azithromycin, and Zosyn. Pt will be admitted to the hospital for treatment and further evaluation of acute hypoxic respiratory failure in setting of acute influenza type A infection. [facility] Medical History CHF (congestive heart failure) Pneumonia Multiple falls Acute on chronic respiratory failure with hypoxemia Weakness Urgency incontinence Menopause Well woman exam Current use of anticoagulant therapy Stenosis of carotid artery Diabetes type 2, controlled Sepsis Gastroenteritis Hypoxia Pneumonia Urinary incontinence Obesity due to excess calories Type 2 diabetes mellitus with diabetic polyneuropathy Senile cataract of left eye Essential hypertension Hyperlipemia Paroxysmal A-fib Anxiety disorder Hypothyroidism Coronary artery disease History of cerebrovascular accident Osteoarthritis Osteopenia Deep vein thrombosis Hearing loss Family History Father Heart disease CVD (cardiovascular disease) Mother Diabetes Surgical History H/O colonoscopy H/O breast surgery S/P IVC filter History of bilateral tubal ligation Social History Household Members: None Housing: Apartment Do you presently have visiting nurse or other home services: Yes Alcohol intake: never Patient Tobacco Use Status: Former Tobacco user Tobacco use type: Cigarette Advance Directives Date on File: 07/01/22 service: No Current occupational status: unemployed Sexual orientation: Straight/Heterosexual Gender identity: Female Meds Allergies Allergy/AdvReac Type Severity Reaction Status Date / Time shellfish derived Allergy Severe Hives Verified 09/16/24 12:26 aspirin [Aspirin] Allergy Mild Gastrointestinal Verified 09/16/24 12:26 Upset ibuprofen Allergy Unknown Unknown Verified 09/16/24 12:26 oxycodone [From PERCOCET] Allergy Unknown PALPITATION Verified 09/16/24 12:26 S Robitussin Cold Cough+ Chest Allergy Intermediate hives Uncoded 09/16/24 12:26 SEAFOOD Allergy Intermediate hives Uncoded 09/16/24 12:26 Active Medications: Current Medications Magnesium Sulfate (Magnesium Sulfate/H2o) 2 gm in 50 mls @ 25 mls/hr IV ONCE ONE Stop: 09/16/24 15:24 Last Admin: 09/16/24 14:36 Dose: 25 mls/hr Azithromycin 500 mg/ Sodium (Chloride) 250 mls @ 125 mls/hr IV ONCE ONE Stop: 09/16/24 16:29 Home Medications ?Medication ?Instructions ?Recorded ?Confirmed ?Last Taken ?Type atorvastatin 20 mg tablet 20 mg PO BEDTIME 05/21/20 09/16/24 02/08/24 History blood sugar diagnostic #10 ea 05/21/20 03/22/24 Unknown History cholecalciferol (vitamin D3) 50 50 mcg PO DAILY 05/21/20 09/16/24 02/08/24 History mcg (2,000 unit) tablet fluticasone 500 mcg-salmeterol 50 1 inh inhalation BID 05/21/20 09/16/24 02/08/24 History mcg/dose blistr powdr for inhalation fluticasone propionate 50 2 spray intranasal DAILY 05/21/20 09/16/24 02/08/24 History mcg/actuation nasal spray,suspension lancets #100 ea 05/21/20 03/22/24 Unknown History levothyroxine 100 mcg tablet 100 mcg PO DAILY@0600 05/21/20 09/16/24 02/08/24 History omeprazole 20 mg capsule,delayed 20 mg PO BID@0630,1630 05/21/20 09/16/24 02/08/24 History release pen needle, diabetic 32 gauge x #50 ea 05/21/20 03/22/24 Unknown History sertraline 50 mg tablet 50 mg PO DAILY 05/21/20 09/16/24 02/08/24 History metoprolol tartrate 25 mg tablet 12.5 mg PO BID 12/17/20 09/16/24 02/08/24 History nebulizers (Sidestream misc) #1 ea 05/14/21 03/22/24 Unknown History multivitamin-iron sulfate 15 1 tab PO QAM 12/15/21 09/16/24 02/08/24 History mg-folic acid 400 mcg tablet (Tab-A-Judith Multivitamin w-iron) insulin lispro 100 unit/mL See Protocol subcut TIDAC 06/26/22 09/16/24 02/08/24 History subcutaneous pen (Humalog KwikPen (U-100) Insulin) metformin 500 mg tablet,extended 500 mg PO BIDWM 09/20/22 09/16/24 02/08/24 History release 24 hr docusate sodium 100 mg capsule 100 mg PO BID 04/19/23 09/16/24 Unknown History acetaminophen 650 mg 650 mg PO Q8H PRN Pain/Fever 02/09/24 09/16/24 Unknown History tablet,extended release ciclopirox 0.77 % topical cream 1 appl topical BID 09/16/24 09/16/24 Unknown History furosemide 20 mg tablet 60 mg PO DAILY 09/16/24 09/16/24 Unknown History insulin glargine 100 unit/mL (3 30 unit subcut DAILY 09/16/24 09/16/24 Unknown History mL) subcutaneous pen (Lantus Solostar U-100 Insulin) loratadine 10 mg tablet 10 mg PO DAILY PRN Allergy Symptoms 09/16/24 09/16/24 Unknown History semaglutide 0.25 mg or 0.5 mg (2 0.5 mg subcut QWEEK 09/16/24 09/16/24 Unknown History mg/3 mL) subcutaneous pen injector (Ozempic) solifenacin 10 mg tablet 10 mg PO DAILY 09/16/24 09/16/24 Unknown History warfarin 4 mg tablet 4 - 8 mg PO DAILY 09/16/24 09/16/24 Unknown History Physical Exam Vital Signs and Narrative: Vital Signs: Last Vital Signs Temp 100.6 F H 09/16/24 14:19 Pulse 83 09/16/24 14:19 Resp 18 09/16/24 14:19 BP 128/65 09/16/24 14:19 Pulse Ox 97 09/16/24 14:19 O2 Del Method Nasal Cannula 09/16/24 14:19 O2 Flow Rate 2 09/16/24 14:19 BMI result Body Mass Index 32.8 General: AOx3, no acute distress Resp: CTA bilaterally. No wheezing appreciated. CVS: S1, S2, RRR GI: +BS, no distention, left sided tenderness Skin: Warm, dry Neuro: Cranial nerves II-XII grossly intact bilaterally. Motor grossly intact bilaterally Extremities: Trace bilateral edema Psych: Appropriate affect Results Labs 09/16/24 12:30 09/16/24 12:30 Labs: Laboratory Results - last 24 hr 09/16/24 09/16/24 12:30 12:34 MCV 94.0 MCH 31.4 MCHC 33.4 RDW 13.6 Plt Count 134 L MPV 11.2 Immature Gran % (Auto) 0.4 Neut % (Auto) 82.1 H Lymph % (Auto) 10.4 L [place] % (Auto) 6.7 Eos % (Auto) 0.0 Baso % (Auto) 0.4 Lymph # (Auto) 0.9 L [place] # (Auto) 0.6 Eos # (Auto) 0.0 Baso # (Auto) 0.0 Abs Immat Gran (auto) 0.03 Absolute Neuts (auto) 7.0 Absolute Nucleated RBC 0.000 Nucleated RBC % (auto) 0.0 PT 23.5 H D INR 2.0 H VBG pH 7.49 H VBG pCO2 39 VBG pO2 57 VBG HCO3 30 H VBG O2 Saturation 89.0 VBG Base Excess 6.7 Anion Gap 13 Estim Creat Clear Calc 51.2 Estimated GFR 58 Random Glucose 137 H Lactic Acid 1.3 Calcium 9.4 Magnesium 1.3 L* Total Bilirubin 0.6 Direct Bilirubin 0.3 AST 26 ALT 14 Alkaline Phosphatase 89 C-Reactive Protein 6.48 H B-Natriuretic Peptide 1122 H Total Protein 8.0 Albumin 3.8 Procalcitonin 0.06 Influenza Type A (PCR) POSITIVE A Influenza Type B (PCR) NEGATIVE RSV RNA Qual (PCR) NEGATIVE SARS-CoV-2 RNA (RT-PCR) NEGATIVE Assessment and Plan (1) Hypoxia: Status: Acute (2) Influenza A: Status: Acute Plan Pt is an 89-year-old female with a PMH significant for?CHF, paroxysmal AFib on warfarin, HTN, HLD, insulin-dependent type 2 diabetes, hypothyroidism, hx of DVT with IVC filter in place, and GERD who presents to the ED with?fever, abdominal pain, shortness breath, and cough x2 days. Pt will be admitted to the hospital for treatment and further evaluation of acute hypoxic respiratory failure in setting of acute influenza type A infection. Acute hypoxic respiratory failure in the setting of acute influenza type a infection Pt desatting to 83% on RA, SOB, cough, myalgias, generalized weakness x2 days Will treat with Tamiflu, DuoNebs, Solu-Medrol, guaifenesin Procalcitonin WNL, no convincing evidence for pneumonia on CXR Currently no indication to continue antibiotics at this time Titrate supplemental O2>92, wean as tolerated PT consult Viral sepsis Pt with fever, tachycardia, and tachypnea; lactic acid WNL Secondary to viral flu illness Procalcitonin WNL, imaging without convincing evidence of superimposed pneumonia No indication for antibiotics at this time Elevated troponins Initial troponin 45.0 with repeat flat at 61.4 Pt asymptomatic, EKG without ischemic changes Monitor on telemetry HFrEF Elevated BNP above baseline, but imaging negative for pleural effusions or edema; LLE at baseline per HOTEL DIRECTOR Does not appear to be in acute exacerbation Continue metoprolol and home Lasix Paroxysmal AFib INR 2.0 Continue metoprolol, warfarin Follow INR daily HLD Continue statin Insulin-dependent type [address] on sliding scale insulin, Lantus Hold metformin Diabetic diet Hypothyroidism Continue levothyroxine GERD PPI Mood disorder Sertraline Full Code Attending:?Dr. Mahmood DVT Prophylaxis: On warfarin Pt will require a hospitalization of at least two nights for treatment of?acute hypoxic respiratory failure in the setting of acute influenza type a infection. Given patient's significant multiple comorbidities including asthma, atrial fibrillation, and diabetes as well as age, she is at risk of rapid deterioration without hospital level care for administration of IV steroids, breathing treatments, supplemental oxygen, and close monitoring of respiratory status. Quality Stroke Does the patient have a stroke diagnosis?: No VTE Prior VTE?: No VTE Risk Level:: Medical - moderate - high VTE Device Contraindication: Treatment Not Indicated VTE Drug Contraindication: N/A - Med Ordered
[2024-09-16] MEDS: Azithromycin 500 MG in 0.9 % Sodium Chloride 250 ML 125 MG IV (14:55)
--- NOTE | 2024-09-16 15:52 | PHA.MEDREC ---
Pharmacy Consult ? Medication Reconciliation Pharmacy has completed the medication reconciliation. Med rec completed via claim history. notified med rec is complete and discrepancies. I spoke with the daughter in the ED who had a list from January from [facility]. She was unsure of any meds her mother took and told me to contact her sister Catarina. I contacted Catarina and she told me to call [facility] but when I called them they said she was discharged from their services back in 2022. I could not confirm warfarin/lantus or ozempic dosing.
[2024-09-16 15:53] LABS: Troponin-I High Sensitivity 61.4 ng/L (<3.5-17.0)
[2024-09-16] MEDS: Omeprazole 20 MG CAPSULE.DR PO (17:15)
[2024-09-16 17:27] LABS: Appearance Urine Clear; Color Urine Yellow; Glucose Urine UA Negative (Negative); Leukocyte Esterase Urine Negative (Negative); Nitrite Urine Negative (Negative); Specific Gravity - Urine 1.015 (1.005-1.025); UMIC TRIGGER UACC YES; Urine Blood Small (1+) (Negative); Urine Ketones Negative (Negative); Urine Protein 100 (2+) mg/dL (Neg-Trace)
[2024-09-16 17:49] LABS: Bacteria Urine None Seen (None Seen); Hyaline Casts Urine 0-2 /LPF (0-2); Squamous Epithelial Cell Urine 0-2 /HPF (0-2); WBC Urine 0-5 /HPF (0-5)
[2024-09-16 18:15] LABS: Glucose, Whole Blood 174 mg/dL (60-115)
[2024-09-16] MEDS: Insulin Lispro 100 UNIT/ML 3 ML VIAL SUBCUT ×2 (19:06→22:22)
[2024-09-16] MEDS: Albuterol/Iprat 2.5/0.5MG 3 ML AMPUL.NEB INHALE (20:28)
[2024-09-16] MEDS: Warfarin Sodium 4 MG TABLET PO (20:36)
[2024-09-16 22:14] LABS: Glucose, Whole Blood 171 mg/dL (60-115)
[2024-09-16] MEDS: Docusate Sodium 100 MG CAPSULE PO (22:21)
[2024-09-16] MEDS: Metoprolol Tartrate 12.5 MG HALFTAB PO (22:21)
[2024-09-16] MEDS: Atorvastatin Calcium 20 MG TABLET PO (22:21)
[2024-09-16] MEDS: Oseltamivir Phosphate 30 MG CAPSULE PO (22:21)
[2024-09-16] MEDS: methylPREDNISolone Sod Succ 40 MG/ML VIAL IVPUSH (22:21)
[2024-09-17] VITALS (9 sets, daily range): BP systolic 113–138; BP diastolic 56–68; PULSE 63–98; RESP 14–18; TEMP 36–36.8; O2SAT 72–98; BMI 32.8
[2024-09-17] MEDS: Levothyroxine Sodium 100 MCG TABLET PO (05:47)
[2024-09-17] MEDS: Omeprazole 20 MG CAPSULE.DR PO ×2 (05:47→18:01)
[2024-09-17 05:50] LABS: INTERNATIONAL NORM RATIO 2.1 (0.9-1.1)
[2024-09-17 06:23] LABS: Anion Gap 14 (12-20); Blood Urea Nitrogen 27 mg/dL (9-16); Calcium 9.6 mg/dL (8.4-10.2); Carbon Dioxide 28 mmol/L (22-29); Chloride 102 mmol/L (96-108); Creatinine Clr Calc Pharmacy 40.1; Estimated Glomerular Filt Rate 44; Glucose Random 189 mg/dL (60-115); Magnesium 1.8 mg/dL (1.6-2.6); Sodium 140 mmol/L (135-145)
[2024-09-17] MEDS: 0.9 % Sodium Chloride Flush 3 ML SYRINGE IVFLUSH ×2 (07:28→18:04)
[2024-09-17 07:32] LABS: Glucose, Whole Blood 175 mg/dL (60-115)
[2024-09-17] MEDS: Insulin Lispro 100 UNIT/ML 3 ML VIAL SUBCUT ×4 (07:32→21:05)
--- NOTE | 2024-09-17 07:37 | PC.NURSE ---
this RN resumed care of pt at 0645. afghan speaking only. vss and up to date aside at this time. nsr on the monitoring and evaluation advisor. rectal temp obtained - pt remains afebrile. pt remains on 2L via NC at this time. pt incontinent of urine - new pads/yola care performed. new purewick now in place. pt turned/repositioned upright to promote patent airway. no sob/wob noted. respirations even/unlabored. insulin administered per sliding scale. sitting upright/set up w/ breakfast. eating independently w/o difficulty. flu precautions remain in place. pt pending bed assignment. plan of care ongoing. call alvarenga placed within reach.
[2024-09-17] MEDS: Albuterol/Iprat 2.5/0.5MG 3 ML AMPUL.NEB INHALE ×2 (08:07→21:43)
[2024-09-17] MEDS: methylPREDNISolone Sod Succ 40 MG/ML VIAL IVPUSH ×2 (08:33→21:05)
[2024-09-17] MEDS: Insulin Glargine,Hum.rec.anlog 100 UNIT/ML 10 ML VIAL 21 UNIT SUBCUT (08:33)
[2024-09-17] MEDS: Cholecalciferol (Vitamin D3) 25 MCG TABLET 50 MCG PO (08:34)
[2024-09-17] MEDS: Oseltamivir Phosphate 30 MG CAPSULE PO ×2 (08:34→21:06)
[2024-09-17] MEDS: Multivitamin TABLET 1 TAB PO (08:34)
[2024-09-17] MEDS: Sertraline HCL 50 MG TABLET PO (08:34)
[2024-09-17] MEDS: Furosemide 20 MG TABLET 60 MG PO (08:34)
[2024-09-17] MEDS: Docusate Sodium 100 MG CAPSULE PO ×2 (08:34→21:05)
[2024-09-17] MEDS: Metoprolol Tartrate 12.5 MG HALFTAB PO ×2 (08:34→21:05)
[2024-09-17] MEDS: Fluticasone Propionate Nasal 16 GM SPRAY 2 SPRAY NOSTRIL-B (09:24)
[2024-09-17] MEDS: Fluticasone/Vilanterol 200/25 BLST.W.DEV 1 PUFF INHALE (09:24)
--- NOTE | 2024-09-17 09:24 | PC.NURSE ---
delay in medication administration d/t medication not being in pyxis. medication delivered/administered. still pending 0900 medication via pharmacy at this time.
--- NOTE | 2024-09-17 09:48 | HO.PM.IMPN ---
Subjective Subjective Date of Service: 09/17/24 Interval History: seen and evaluated this morning feels better overall as swelling decreased still on O2 supplement no overnight events Review of Systems Review of Systems: Yes all other systems are reviewed and are negative Physical Exam Vital Signs: Vital Signs: Last Vital Signs Temp 97.5 F 09/17/24 07:26 Pulse 73 09/17/24 08:07 Resp 18 09/17/24 08:07 BP 138/67 09/17/24 07:26 Pulse Ox 98 09/17/24 07:26 O2 Del Method Nasal Cannula 09/17/24 07:26 O2 Flow Rate 2 09/17/24 07:26 BMI result Body Mass Index 32.8 Objective Data Active Medications Acetaminophen (Acetaminophen 325 Mg Tablet) 650 mg PO Q6H PRN PRN Reason: Pain, Mild 1-3,fever,headache Albuterol/Ipratropium (Albuterol/Iprat 2.5/0.5mg 3 Ml Ampul.Neb) 3 ml INHALE RQ6H WHILE AWAKE [facility] Last Admin: 09/17/24 08:07 Dose: 3 ml Documented By: HUBERT Albuterol/Ipratropium (Albuterol/Iprat 2.5/0.5mg 3 Ml Ampul.Neb) 3 ml INHALE RQ4H WHILE AWAKE PRN PRN Reason: Shortness of Breath/Wheezing Atorvastatin Calcium (Atorvastatin Calcium 20 Mg Tablet) 20 mg PO BEDTIME [facility] Last Admin: 09/16/24 22:21 Dose: 20 mg Documented By: BERNICE Calcium Carbonate (Calcium Carbonate 750 Mg Tab.Chew) 750 mg PO Q4H PRN PRN Reason: Heartburn Dextrose (Dextrose 50 % 25 Gm/50 Ml Syringe) 25 gm IVPUSH Q15M PRN; Protocol PRN Reason: per Hypoglycemia Standing Ord. Docusate Sodium (Docusate Sodium 100 Mg Capsule) 100 mg PO BID [facility] Last Admin: 09/17/24 08:34 Dose: 100 mg Documented By: KEVAN Fluticasone Propionate (Fluticasone Propionate Nasal 16 Gm [place]) 2 spray NOSTRIL-B DAILY [facility] Last Admin: 09/17/24 09:24 Dose: 2 spray Documented By: KEVAN Fluticasone/Vilanterol (Fluticasone/Vilanterol 200/25 Blst.W.Dev) 1 puff INHALE RDAILY [facility] Last Admin: 09/17/24 09:24 Dose: 1 puff Documented By: KEVAN Furosemide (Furosemide 20 Mg Tablet) 60 mg PO DAILY [facility]; Protocol Last Admin: 09/17/24 08:34 Dose: 60 mg Documented By: KEVAN Glucose (Glucose Gel 15 Gm Gel..Gram.) 15 gm PO Q15M PRN; Protocol PRN Reason: per Hypoglycemia Standing Ord. Guaifenesin/Dextromethorphan (Guaifenesin Dm 200/20/10 Ml 10 Ml Syrup) 10 ml PO Q4H PRN PRN Reason: Cough Insulin Glargine (Insulin Glargine,Hum.Rec.Anlog 100 Unit/Ml 10 Ml Vial) 21 unit SUBCUT DAILY [facility] Last Admin: 09/17/24 08:33 Dose: 21 unit Documented By: KEVAN Insulin Human Lispro (Insulin Lispro 100 Unit/Ml 3 Ml Vial) 0 unit SUBCUT QIDACHS [facility]; Protocol Last Admin: 09/17/24 07:32 Dose: 2 unit Documented By: KEVAN Levothyroxine Sodium (Levothyroxine Sodium 100 Mcg Tablet) 100 mcg PO DAILY@0600 [facility] Last Admin: 09/17/24 05:47 Dose: 100 mcg Documented By: BERNICE Loratadine (Loratadine 10 Mg Tablet) 10 mg PO DAILY PRN PRN Reason: Allergy Symptoms Magnesium Hydroxide (Milk Of Magnesia 30 Ml Oral.Susp) 30 ml PO DAILY PRN PRN Reason: Constipation Melatonin (Melatonin 3 Mg Tablet) 6 mg PO BEDTIME PRN PRN Reason: Insomnia Methylprednisolone Sodium Succinate (Methylprednisolone Sod Succ 40 Mg/Ml Vial) 40 mg IVPUSH Q12H [facility] Last Admin: 09/17/24 08:33 Dose: 40 mg Documented By: KEVAN Metoprolol Tartrate (Metoprolol Tartrate 12.5 Mg Halftab) 12.5 mg PO BID [facility]; Protocol Last Admin: 09/17/24 08:34 Dose: 12.5 mg Documented By: KEVAN Multivitamins/Vitamin C (Multivitamin Tablet) 1 tab PO DAILY [facility] Last Admin: 09/17/24 08:34 Dose: 1 tab Documented By: KEVAN Omeprazole (Omeprazole 20 Mg Capsule.Dr) 20 mg PO BID@0630,1630 [facility] Last Admin: 09/17/24 05:47 Dose: 20 mg Documented By: BERNICE Ondansetron HCl (Ondansetron Hcl 4 Mg/2 Ml Vial) 4 mg IVPUSH Q8H PRN PRN Reason: Nausea and Vomiting Oseltamivir Phosphate (Oseltamivir Phosphate 30 Mg Capsule) 30 mg PO Q12H [facility] Stop: 09/20/24 21:01 Last Admin: 09/17/24 08:34 Dose: 30 mg Documented By: KEVAN Sertraline HCl (Sertraline Hcl 50 Mg Tablet) 50 mg PO DAILY [facility] Last Admin: 09/17/24 08:34 Dose: 50 mg Documented By: KEVAN Sodium Chloride (0.9 % Sodium Chloride Flush 3 Ml Syringe) 3 ml IVFLUSH QSHIFT [facility] Last Admin: 09/17/24 07:28 Dose: 3 ml Documented By: KEVAN Tolterodine Tartrate (Tolterodine Tartrate [place] 4 Mg Cap.Er.24h) 4 mg PO DAILY [facility] Vitamin D (Cholecalciferol (Vitamin D3) 25 Mcg Tablet) 50 mcg PO DAILY [facility] Last Admin: 09/17/24 08:34 Dose: 50 mcg Documented By: KEVAN Warfarin Sodium (Warfarin Sodium 4 Mg Tablet) 4 mg PO DAILY@1800 [facility] Last Admin: 09/16/24 20:36 Dose: 4 mg Documented By: BERNICE Labs 09/16/24 12:30 09/17/24 05:38 Labs: Laboratory Results - last 24 hr 09/16/24 09/16/24 09/16/24 12:30 12:34 17:18 MCV 94.0 MCH 31.4 MCHC 33.4 RDW 13.6 Plt Count 134 L MPV 11.2 Immature Gran % (Auto) 0.4 Neut % (Auto) 82.1 H Lymph % (Auto) 10.4 L [place] % (Auto) 6.7 Eos % (Auto) 0.0 Baso % (Auto) 0.4 Lymph # (Auto) 0.9 L [place] # (Auto) 0.6 Eos # (Auto) 0.0 Baso # (Auto) 0.0 Abs Immat Gran (auto) 0.03 Absolute Neuts (auto) 7.0 Absolute Nucleated RBC 0.000 Nucleated RBC % (auto) 0.0 Hold Purple Top PT 23.5 H D INR 2.0 H VBG pH 7.49 H VBG pCO2 39 VBG pO2 57 VBG HCO3 30 H VBG O2 Saturation 89.0 VBG Base Excess 6.7 Anion Gap 13 Estim Creat Clear Calc 51.2 Estimated GFR 58 POC Glucose Random Glucose 137 H Lactic Acid 1.3 Calcium 9.4 Magnesium 1.3 L* Total Bilirubin 0.6 Direct Bilirubin 0.3 AST 26 ALT 14 Alkaline Phosphatase 89 C-Reactive Protein 6.48 H B-Natriuretic Peptide 1122 H Total Protein 8.0 Albumin 3.8 Procalcitonin 0.06 Urine Color Yellow Urine Appearance Clear Urine pH 6.0 Ur Specific [place] 1.015 Urine Protein 100 (2+) H Urine Glucose (UA) Negative Urine Ketones Negative Urine Blood Small (1+) H Urine Nitrite Negative Ur Leukocyte Esterase Negative Urine RBC 3-5 H Urine WBC 0-5 Ur Squamous Epith Cells 0-2 Urine Bacteria None Seen Hyaline Casts 0-2 Influenza Type A (PCR) POSITIVE A Influenza Type B (PCR) NEGATIVE RSV RNA Qual (PCR) NEGATIVE SARS-CoV-2 RNA (RT-PCR) NEGATIVE 09/16/24 09/16/24 09/17/24 18:11 22:08 05:38 MCV MCH MCHC RDW Plt Count MPV Immature Gran % (Auto) Neut % (Auto) Lymph % (Auto) [place] % (Auto) Eos % (Auto) Baso % (Auto) Lymph # (Auto) [place] # (Auto) Eos # (Auto) Baso # (Auto) Abs Immat Gran (auto) Absolute Neuts (auto) Absolute Nucleated RBC Nucleated RBC % (auto) Hold Purple Top SEE NOTE PT 24.0 H INR 2.1 H VBG pH VBG pCO2 VBG pO2 VBG HCO3 VBG O2 Saturation VBG Base Excess Anion Gap 14 Estim Creat Clear Calc 40.1 Estimated GFR 44 POC Glucose 174 H 171 H Random Glucose 189 H Lactic Acid Calcium 9.6 Magnesium 1.8 Total Bilirubin Direct Bilirubin AST ALT Alkaline Phosphatase C-Reactive Protein B-Natriuretic Peptide Total Protein Albumin Procalcitonin Urine Color Urine Appearance Urine pH Ur Specific [place] Urine Protein Urine Glucose (UA) Urine Ketones Urine Blood Urine Nitrite Ur Leukocyte Esterase Urine RBC Urine WBC Ur Squamous Epith Cells Urine Bacteria Hyaline Casts Influenza Type A (PCR) Influenza Type B (PCR) RSV RNA Qual (PCR) SARS-CoV-2 RNA (RT-PCR) 09/17/24 07:24 MCV MCH MCHC RDW Plt Count MPV Immature Gran % (Auto) Neut % (Auto) Lymph % (Auto) [place] % (Auto) Eos % (Auto) Baso % (Auto) Lymph # (Auto) [place] # (Auto) Eos # (Auto) Baso # (Auto) Abs Immat Gran (auto) Absolute Neuts (auto) Absolute Nucleated RBC Nucleated RBC % (auto) Hold Purple Top PT INR VBG pH VBG pCO2 VBG pO2 VBG HCO3 VBG O2 Saturation VBG Base Excess Anion Gap Estim Creat Clear Calc Estimated GFR POC Glucose 175 H Random Glucose Lactic Acid Calcium Magnesium Total Bilirubin Direct Bilirubin AST ALT Alkaline Phosphatase C-Reactive Protein B-Natriuretic Peptide Total Protein Albumin Procalcitonin Urine Color Urine Appearance Urine pH Ur Specific [place] Urine Protein Urine Glucose (UA) Urine Ketones Urine Blood Urine Nitrite Ur Leukocyte Esterase Urine RBC Urine WBC Ur Squamous Epith Cells Urine Bacteria Hyaline Casts Influenza Type A (PCR) Influenza Type B (PCR) RSV RNA Qual (PCR) SARS-CoV-2 RNA (RT-PCR) Assessment and Plan (1) Influenza A: Status: Acute Plan 89-year-old female with a PMH significant for?CHF, paroxysmal AFib on warfarin, HTN, HLD, insulin-dependent type 2 diabetes, hypothyroidism, hx of DVT with IVC filter in place, and GERD who presented to the ED with?fever, abdominal pain, shortness breath, and cough x2 days. Pt admitted to the hospital for treatment and further evaluation of acute hypoxic respiratory failure in setting of acute influenza type A infection. Acute hypoxic respiratory failure in the setting of acute influenza type a infection Pt desatting to 83% on RA, SOB, cough, myalgias, generalized weakness x2 days Tamiflu, DuoNebs, Solu-Medrol, guaifenesin Procalcitonin WNL, no convincing evidence for pneumonia on CXR Currently no indication to continue antibiotics at this time Titrate supplemental O2>92, wean as tolerated PT consult Viral sepsis. Sepsis resolved Pt with fever, tachycardia, and tachypnea; lactic acid WNL Secondary to viral flu illness Procalcitonin WNL, imaging without convincing evidence of superimposed pneumonia No indication for antibiotics at this time Elevated troponins Initial troponin 45.0 with repeat flat at 61.4 Pt asymptomatic, EKG without ischemic changes Monitor on telemetry HFrEF Elevated BNP above baseline, but imaging negative for pleural effusions or edema; LLE at baseline per [facility] Does not appear to be in acute exacerbation Continue metoprolol and home Lasix Paroxysmal AFib INR 2.1 Continue metoprolol, warfarin Follow INR daily HLD Continue statin Insulin-dependent type 2 diabetes sliding scale insulin, Lantus Hold metformin Diabetic diet Hypothyroidism Continue levothyroxine GERD PPI Mood disorder Sertraline Full Code Attending:?Dr. Alatorre DVT Prophylaxis: On warfarin Quality Stroke Does the patient have a stroke diagnosis?: No VTE Prior VTE?: No VTE Risk Level:: Medical - moderate - high VTE Device Contraindication: Treatment Not Indicated VTE Drug Contraindication: N/A - Med Ordered
[2024-09-17] MEDS: Tolterodine Tartrate LA 4 MG CAP.ER.24H PO (09:53)
[2024-09-17 11:39] LABS: Glucose, Whole Blood 260 mg/dL (60-115)
[2024-09-17 13:37] LABS: Glucose, Whole Blood 212 mg/dL (60-115)
--- NOTE | 2024-09-17 14:35 | MHC.CM.PN ---
PT LIVES ALONE WITH DAILYH AND NIGHTLY FAMILY SUPPORT PT HAS TELLER [facility]ULT 36 HRS A WEEK PT ALSO HAS A DAILY VNA NOT SURE OG AGENCY PT S FGAMILY WILL TRANSPORT HER HOME
[2024-09-17 16:48] LABS: Glucose, Whole Blood 239 mg/dL (60-115)
[2024-09-17] MEDS: Warfarin Sodium 4 MG TABLET PO (18:42)
[2024-09-17 21:01] LABS: Glucose, Whole Blood 160 mg/dL (60-115)
[2024-09-17] MEDS: Atorvastatin Calcium 20 MG TABLET PO (21:06)
[2024-09-18] VITALS (9 sets, daily range): BP systolic 146–195; BP diastolic 77–86; PULSE 56–91; RESP 16–20; TEMP 36.4; O2SAT 93–98
[2024-09-18] MEDS: 0.9 % Sodium Chloride Flush 3 ML SYRINGE IVFLUSH ×3 (00:33→17:50)
[2024-09-18 05:28] LABS: INTERNATIONAL NORM RATIO 2.3 (0.9-1.1); Prothrombin Time 26.7 SEC (10.9-12.4)
[2024-09-18] MEDS: Levothyroxine Sodium 100 MCG TABLET PO (05:43)
[2024-09-18] MEDS: Omeprazole 20 MG CAPSULE.DR PO ×2 (05:43→17:42)
[2024-09-18 07:39] LABS: Glucose, Whole Blood 208 mg/dL (60-115)
[2024-09-18] MEDS: methylPREDNISolone Sod Succ 40 MG/ML VIAL IVPUSH ×2 (08:21→21:14)
[2024-09-18] MEDS: Insulin Lispro 100 UNIT/ML 3 ML VIAL SUBCUT ×4 (08:21→21:15)
[2024-09-18] MEDS: Insulin Glargine,Hum.rec.anlog 100 UNIT/ML 10 ML VIAL 21 UNIT SUBCUT (08:23)
[2024-09-18] MEDS: Cholecalciferol (Vitamin D3) 25 MCG TABLET 50 MCG PO (08:28)
[2024-09-18] MEDS: Furosemide 20 MG TABLET 60 MG PO (08:28)
[2024-09-18] MEDS: Tolterodine Tartrate LA 4 MG CAP.ER.24H PO (08:30)
[2024-09-18] MEDS: Docusate Sodium 100 MG CAPSULE PO ×2 (08:30→21:15)
[2024-09-18] MEDS: Oseltamivir Phosphate 30 MG CAPSULE PO ×2 (08:30→21:15)
[2024-09-18] MEDS: Multivitamin TABLET 1 TAB PO (08:30)
[2024-09-18] MEDS: Sertraline HCL 50 MG TABLET PO (08:31)
[2024-09-18] MEDS: Fluticasone Propionate Nasal 16 GM SPRAY 2 SPRAY NOSTRIL-B (08:35)
[2024-09-18] MEDS: Fluticasone/Vilanterol 200/25 BLST.W.DEV 1 PUFF INHALE (08:45)
[2024-09-18] MEDS: Albuterol/Iprat 2.5/0.5MG 3 ML AMPUL.NEB INHALE ×3 (08:45→21:42)
[2024-09-18 11:48] LABS: Glucose, Whole Blood 211 mg/dL (60-115)
--- NOTE | 2024-09-18 12:30 | P.PNIM_ITS ---
Subjective Subjective Date of Service: 09/18/24 Review of Systems Follow up flu hypoxia feeling better no pain Physical Exam 2 Vital Signs: Vital Signs: Last Vital Signs Temp 97.6 F 09/18/24 08:00 Pulse 61 09/18/24 08:48 Resp 18 09/18/24 08:48 BP 195/86 H 09/18/24 08:00 Pulse Ox 97 09/18/24 08:00 O2 Del Method Nasal Cannula 09/18/24 08:00 O2 Flow Rate 2 09/18/24 08:00 BMI result Body Mass Index 32.8 Appearing in no acute distress lung sounds are clear to auscultation heart regular rate rhythm, clear S1, S2 positive bowel sounds, abdomen is soft, nontender neuro patient is alert x3, no focal deficits Objective Data Active Medications Acetaminophen (Acetaminophen 325 Mg Tablet) 650 mg PO Q6H PRN PRN Reason: Pain, Mild 1-3,fever,headache Albuterol/Ipratropium (Albuterol/Iprat 2.5/0.5mg 3 Ml Ampul.Neb) 3 ml INHALE RQ6H WHILE AWAKE [facility] Last Admin: 09/18/24 08:45 Dose: 3 ml Documented By: JOE Albuterol/Ipratropium (Albuterol/Iprat 2.5/0.5mg 3 Ml Ampul.Neb) 3 ml INHALE RQ4H WHILE AWAKE PRN PRN Reason: Shortness of Breath/Wheezing Atorvastatin Calcium (Atorvastatin Calcium 20 Mg Tablet) 20 mg PO BEDTIME [facility] Last Admin: 09/17/24 21:06 Dose: 20 mg Documented By: MCTA Calcium Carbonate (Calcium Carbonate 750 Mg Tab.Chew) 750 mg PO Q4H PRN PRN Reason: Heartburn Dextrose (Dextrose 50 % 25 Gm/50 Ml Syringe) 25 gm IVPUSH Q15M PRN; Protocol PRN Reason: per Hypoglycemia Standing Ord. Docusate Sodium (Docusate Sodium 100 Mg Capsule) 100 mg PO BID [facility] Last Admin: 09/18/24 08:30 Dose: 100 mg Documented By: MARCO ANTONIO Fluticasone Propionate (Fluticasone Propionate Nasal 16 Gm [place]) 2 spray NOSTRIL-B DAILY [facility] Last Admin: 09/18/24 08:35 Dose: 2 spray Documented By: MARCO ANTONIO Fluticasone/Vilanterol (Fluticasone/Vilanterol 200/25 Blst.W.Dev) 1 puff INHALE RDAILY [facility] Last Admin: 09/18/24 08:45 Dose: 1 puff Documented By: JOE Furosemide (Furosemide 20 Mg Tablet) 60 mg PO DAILY [facility]; Protocol Last Admin: 09/18/24 08:28 Dose: 60 mg Documented By: MARCO ANTONIO Glucose (Glucose Gel 15 Gm Gel..Gram.) 15 gm PO Q15M PRN; Protocol PRN Reason: per Hypoglycemia Standing Ord. Guaifenesin/Dextromethorphan (Guaifenesin Dm 200/20/10 Ml 10 Ml Syrup) 10 ml PO Q4H PRN PRN Reason: Cough Insulin Glargine (Insulin Glargine,Hum.Rec.Anlog 100 Unit/Ml 10 Ml Vial) 21 unit SUBCUT DAILY [facility] Last Admin: 09/18/24 08:23 Dose: 21 unit Documented By: MARCO ANTONIO Insulin Human Lispro (Insulin Lispro 100 Unit/Ml 3 Ml Vial) 0 unit SUBCUT QIDACHS [facility]; Protocol Last Admin: 09/18/24 08:21 Dose: 4 unit Documented By: MARCO ANTONIO Levothyroxine Sodium (Levothyroxine Sodium 100 Mcg Tablet) 100 mcg PO DAILY@0600 [facility] Last Admin: 09/18/24 05:43 Dose: 100 mcg Documented By: ISIAH Loratadine (Loratadine 10 Mg Tablet) 10 mg PO DAILY PRN PRN Reason: Allergy Symptoms Magnesium Hydroxide (Milk Of Magnesia 30 Ml Oral.Susp) 30 ml PO DAILY PRN PRN Reason: Constipation Melatonin (Melatonin 3 Mg Tablet) 6 mg PO BEDTIME PRN PRN Reason: Insomnia Methylprednisolone Sodium Succinate (Methylprednisolone Sod Succ 40 Mg/Ml Vial) 40 mg IVPUSH Q12H [facility] Last Admin: 09/18/24 08:21 Dose: 40 mg Documented By: MARCO ANTONIO Metoprolol Tartrate (Metoprolol Tartrate 12.5 Mg Halftab) 12.5 mg PO BID [facility]; Protocol Last Admin: 09/18/24 08:32 Dose: Not Given Documented By: MARCO ANTONIO Non-Admin Reason: Decreased Heart Rate Multivitamins/Vitamin C (Multivitamin Tablet) 1 tab PO DAILY [facility] Last Admin: 09/18/24 08:30 Dose: 1 tab Documented By: MARCO ANTONIO Omeprazole (Omeprazole 20 Mg Capsule.) 20 mg PO BID@0630,1630 [facility] Last Admin: 09/18/24 05:43 Dose: 20 mg Documented By: ISIAH Ondansetron HCl (Ondansetron Hcl 4 Mg/2 Ml Vial) 4 mg IVPUSH Q8H PRN PRN Reason: Nausea and Vomiting Oseltamivir Phosphate (Oseltamivir Phosphate 30 Mg Capsule) 30 mg PO Q12H [facility] Stop: 09/20/24 21:01 Last Admin: 09/18/24 08:30 Dose: 30 mg Documented By: MARCO ANTONIO Sertraline HCl (Sertraline Hcl 50 Mg Tablet) 50 mg PO DAILY [facility] Last Admin: 09/18/24 08:31 Dose: 50 mg Documented By: MARCO ANTONIO Sodium Chloride (0.9 % Sodium Chloride Flush 3 Ml Syringe) 3 ml IVFLUSH QSHIFT [facility] Last Admin: 09/18/24 08:24 Dose: 3 ml Documented By: MARCO ANTONIO Tolterodine Tartrate (Tolterodine Tartrate La 4 Mg Cap.Er.24h) 4 mg PO DAILY [facility] Last Admin: 09/18/24 08:30 Dose: 4 mg Documented By: MARCO ANTONIO Vitamin D (Cholecalciferol (Vitamin D3) 25 Mcg Tablet) 50 mcg PO DAILY [facility] Last Admin: 09/18/24 08:28 Dose: 50 mcg Documented By: MARCO ANTONIO Warfarin Sodium (Warfarin Sodium 4 Mg Tablet) 4 mg PO DAILY@1800 [facility] Last Admin: 09/17/24 18:42 Dose: 4 mg Documented By: KAILEY Labs 09/16/24 12:30 09/17/24 05:38 Labs: Laboratory Results - last 24 hr 09/17/24 09/17/24 09/17/24 13:34 16:45 20:58 PT INR POC Glucose 212 H 239 H 160 H 09/18/24 09/18/24 09/18/24 04:16 07:33 11:42 PT 26.7 H INR 2.3 H POC Glucose 208 H 211 H Microbiology Microbiology Results: Microbiology 09/16/24 12:37 Blood Culture - Preliminary Blood - Venous No growth after 24 hours. 09/16/24 12:30 Blood Culture - Preliminary Blood - Venous No growth after 24 hours. 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 Pt admitted to the hospital for treatment and further evaluation of acute hypoxic respiratory failure in setting of acute influenza type A infection. Acute hypoxic respiratory failure in the setting of acute influenza type A infection Tamiflu, DuoNebs, Solu-Medrol, guaifenesin Procalcitonin WNL, no convincing evidence for pneumonia on CXR Currently no indication to continue antibiotics at this time Titrate supplemental O2>92, wean as tolerated PT consult> STR Viral sepsis. Sepsis resolved Pt with fever, tachycardia, and tachypnea; lactic acid WNL Secondary to viral flu illness Procalcitonin WNL, imaging without convincing evidence of superimposed pneumonia No indication for antibiotics at this time Elevated troponins Initial troponin 45.0 with repeat flat at 61.4 Pt asymptomatic, EKG without ischemic changes Monitor on telemetry HFrEF Elevated BNP above baseline, but imaging negative for pleural effusions or edema; LLE at baseline per [facility] Does not appear to be in acute exacerbation Continue metoprolol and home Lasix Paroxysmal AFib INR 2.3 Continue metoprolol, warfarin Follow INR daily HLD Continue statin Insulin-dependent type 2 diabetes sliding scale insulin, Lantus Hold metformin Diabetic diet Hypothyroidism Continue levothyroxine GERD PPI Mood disorder Sertraline Full Code DVT Prophylaxis: On warfarin Quality Stroke Does the patient have a stroke diagnosis?: No VTE Prior VTE?: No VTE Risk Level:: Medical - moderate - high VTE Device Contraindication: Treatment Not Indicated VTE Drug Contraindication: N/A - Med Ordered
--- NOTE | 2024-09-18 13:03 | MHC.CM.PN ---
pt is active [facility] receommending str spoke with son and dgter who agree referrls made
[2024-09-18 17:00] LABS: Glucose, Whole Blood 246 mg/dL (60-115)
[2024-09-18] MEDS: Warfarin Sodium 4 MG TABLET PO (17:42)
--- NOTE | 2024-09-18 19:47 | PC.NURSE ---
This RN assumed pt care @ 1910. Pt a&Ox4, no signs of distress. Pts family at bedside Plan of care ongoing.
[2024-09-18 21:07] LABS: Glucose, Whole Blood 151 mg/dL (60-115)
[2024-09-18] MEDS: Metoprolol Tartrate 12.5 MG HALFTAB PO (21:15)
[2024-09-18] MEDS: Atorvastatin Calcium 20 MG TABLET PO (21:22)
--- NOTE | 2024-09-18 21:26 | MHC.EDTECH ---
Assisted patient with total bed change, fresh sheets and purewick. Patient Repositioned
--- NOTE | 2024-09-18 21:42 | PC.NURSE ---
Pt medicated per [facility] Plan of care ongoing.
[2024-09-19] MEDS: Omeprazole 20 MG CAPSULE.DR PO ×2 (06:05→16:55)
[2024-09-19] MEDS: Levothyroxine Sodium 100 MCG TABLET PO (06:05)
--- NOTE | 2024-09-19 06:07 | PC.NURSE ---
Pt medicated per [facility] Plan of care ongoing.
[2024-09-19 06:12] VITALS: BP 165/87; PULSE 77; RESP 20; TEMP 37.1; O2SAT 96
[2024-09-19 07:27] LABS: Glucose, Whole Blood 194 mg/dL (60-115)
[2024-09-19] MEDS: Insulin Lispro 100 UNIT/ML 3 ML VIAL SUBCUT ×4 (07:27→21:40)
[2024-09-19 07:31] LABS: INTERNATIONAL NORM RATIO 2.2 (0.9-1.1); Prothrombin Time 25.6 SEC (10.9-12.4)
[2024-09-19] MEDS: Fluticasone Propionate Nasal 16 GM SPRAY 2 SPRAY NOSTRIL-B (07:34)
[2024-09-19] MEDS: Albuterol/Iprat 2.5/0.5MG 3 ML AMPUL.NEB INHALE ×3 (07:34→19:27)
[2024-09-19] MEDS: 0.9 % Sodium Chloride Flush 3 ML SYRINGE IVFLUSH ×3 (07:38→21:41)
[2024-09-19] MEDS: Fluticasone/Vilanterol 200/25 BLST.W.DEV 1 PUFF INHALE (08:20)
--- NOTE | 2024-09-19 09:05 | PC.NURSE ---
Admission completed in ED OVF, Primary RN made aware.
[2024-09-19 09:06] LABS: Glucose, Whole Blood 221 mg/dL (60-115)
--- NOTE | 2024-09-19 09:20 | MHC.CM.PN ---
Addendum entered by Danielle Rodriguez 09/19/24 14:45: CM MET WITH PTS DAUGHTER, ANTHONY. UPDATES PROVIDED, SHE STATES SHE WOULD LIKE THE PT CLOSER IF POSSIBLE, BUT UNDERSTANDS IT IS LIMITED DUE TO INSURANCE CONTRACTS AND ISOLATION NEEDS SHE SAYS PT WAS AT [facility] Addendum entered by Danielle Rodriguez 09/19/24 12:26: [facility] IS FOLLOWING, HOWEVER THEY HAVE NO ISOLATION BEDS PER THEIR POLICY, PT WOULD NEED TO BE 6 DAYS POST + FLU TEST AND OFF PRECAUTIONS FOR THEM TO BE ABLE TO OFFER [facility] IS FOLLOWING, PT WOULD NEED TO BE 48 HRS WITH NO FEVER AND ON TAMIFLU, WHICH SHE IS, HOWEVER THEY DO NOT HAVE AN OPEN FEMALE BED [facility] IS REVIEWING Original Note: STR RECOMMENDED, NO BED OFFERS FROM INITIAL REFERRAL REFERRAL EXPANDED
[2024-09-19 09:27] VITALS: BP 139/67; PULSE 86; RESP 18; TEMP 36.5; O2SAT 100
[2024-09-19] MEDS: Insulin Glargine,Hum.rec.anlog 100 UNIT/ML 10 ML VIAL 21 UNIT SUBCUT (09:46)
[2024-09-19] MEDS: Multivitamin TABLET 1 TAB PO (09:47)
[2024-09-19] MEDS: Furosemide 20 MG TABLET 60 MG PO (09:47)
[2024-09-19] MEDS: methylPREDNISolone Sod Succ 40 MG/ML VIAL IVPUSH ×2 (09:47→21:40)
[2024-09-19] MEDS: Sertraline HCL 50 MG TABLET PO (09:47)
[2024-09-19] MEDS: Metoprolol Tartrate 12.5 MG HALFTAB PO ×2 (09:47→21:41)
[2024-09-19] MEDS: Cholecalciferol (Vitamin D3) 25 MCG TABLET 50 MCG PO (09:47)
[2024-09-19] MEDS: Docusate Sodium 100 MG CAPSULE PO ×2 (09:47→21:40)
[2024-09-19] MEDS: Oseltamivir Phosphate 30 MG CAPSULE PO ×2 (09:47→21:41)
[2024-09-19] MEDS: Tolterodine Tartrate LA 4 MG CAP.ER.24H PO (09:47)
[2024-09-19 11:35] LABS: Glucose, Whole Blood 222 mg/dL (60-115)
[2024-09-19] MEDS: Acetaminophen 325 MG TABLET 650 MG PO (12:02)
--- NOTE | 2024-09-19 12:04 | P.PNIM_ITS ---
Subjective Subjective Date of Service: 09/19/24 Interval History: Seen and examined this morning Follow-up for influenza, respiratory failure History obtained with the assistance of a string studies director Patient reports her cough is improving, she denies any shortness of breath Review of Systems Review of Systems: Yes all other systems are reviewed and are negative Constitutional Constitutional: Denies chills and Denies fever(s) Physical Exam 2 Vital Signs: Vital Signs: Last Vital Signs Temp 97.7 F 09/19/24 09:27 Pulse 86 09/19/24 09:27 Resp 18 09/19/24 09:27 BP 139/67 09/19/24 09:27 Pulse Ox 100 09/19/24 09:27 O2 Del Method Nasal Cannula 09/19/24 09:27 O2 Flow Rate 2 09/19/24 09:27 BMI result Body Mass Index 32.8 Const: General: comfortable, no acute distress, alert, awake and Physically active Nutritional Appearance: overweight Orientation/consciousness: p atient oriented x3 Resp: Effort & Inspection: normal respiratory effort, able to speak in complete sentences, no respiratory distress and no use of accessory muscles Cardio: Rate: regular rate GI: Inspection: No distended Palpation (GI): Soft to palpation Neuro: General: patient oriented x3, moves all extremities and CN's II-XI intact bilaterally Objective Data Active Medications Acetaminophen (Acetaminophen 325 Mg Tablet) 650 mg PO Q6H PRN PRN Reason: Pain, Mild 1-3,fever,headache Albuterol/Ipratropium (Albuterol/Iprat 2.5/0.5mg 3 Ml Ampul.Neb) 3 ml INHALE RQ6H WHILE AWAKE [facility] Last Admin: 09/19/24 07:34 Dose: 3 ml Documented By: PRIMO Albuterol/Ipratropium (Albuterol/Iprat 2.5/0.5mg 3 Ml Ampul.Neb) 3 ml INHALE RQ4H WHILE AWAKE PRN PRN Reason: Shortness of Breath/Wheezing Atorvastatin Calcium (Atorvastatin Calcium 20 Mg Tablet) 20 mg PO BEDTIME [facility] Last Admin: 09/18/24 21:22 Dose: 20 mg Documented By: WICHO Calcium Carbonate (Calcium Carbonate 750 Mg Tab.Chew) 750 mg PO Q4H PRN PRN Reason: Heartburn Dextrose (Dextrose 50 % 25 Gm/50 Ml Syringe) 25 gm IVPUSH Q15M PRN; Protocol PRN Reason: per Hypoglycemia Standing Ord. Docusate Sodium (Docusate Sodium 100 Mg Capsule) 100 mg PO BID [facility] Last Admin: 09/19/24 09:47 Dose: 100 mg Documented By: SANDRITA Fluticasone Propionate (Fluticasone Propionate Nasal 16 Gm [place]) 2 spray NOSTRIL-B DAILY [facility] Last Admin: 09/19/24 07:34 Dose: 2 spray Documented By: PRIMO Fluticasone/Vilanterol (Fluticasone/Vilanterol 200/25 Blst.W.Dev) 1 puff INHALE RDAILY [facility] Last Admin: 09/19/24 08:20 Dose: 1 puff Documented By: PRIMO Furosemide (Furosemide 20 Mg Tablet) 60 mg PO DAILY [facility]; Protocol Last Admin: 09/19/24 09:47 Dose: 60 mg Documented By: SANDRITA Glucose (Glucose Gel 15 Gm Gel..Gram.) 15 gm PO Q15M PRN; Protocol PRN Reason: per Hypoglycemia Standing Ord. Guaifenesin/Dextromethorphan (Guaifenesin Dm 200/20/10 Ml 10 Ml Syrup) 10 ml PO Q4H PRN PRN Reason: Cough Insulin Glargine (Insulin Glargine,Hum.Rec.Anlog 100 Unit/Ml 10 Ml Vial) 21 unit SUBCUT DAILY [facility] Last Admin: 09/19/24 09:46 Dose: 21 unit Documented By: SANDRITA Insulin Human Lispro (Insulin Lispro 100 Unit/Ml 3 Ml Vial) 0 unit SUBCUT QIDACHS [facility]; Protocol Last Admin: 09/19/24 07:27 Dose: 2 unit Documented By: PRIMO Levothyroxine Sodium (Levothyroxine Sodium 100 Mcg Tablet) 100 mcg PO DAILY@0600 [facility] Last Admin: 09/19/24 06:05 Dose: 100 mcg Documented By: WICHO Loratadine (Loratadine 10 Mg Tablet) 10 mg PO DAILY PRN PRN Reason: Allergy Symptoms Magnesium Hydroxide (Milk Of Magnesia 30 Ml Oral.Susp) 30 ml PO DAILY PRN PRN Reason: Constipation Melatonin (Melatonin 3 Mg Tablet) 6 mg PO BEDTIME PRN PRN Reason: Insomnia Methylprednisolone Sodium Succinate (Methylprednisolone Sod Succ 40 Mg/Ml Vial) 40 mg IVPUSH Q12H [facility] Last Admin: 09/19/24 09:47 Dose: 40 mg Documented By: SANDRITA Metoprolol Tartrate (Metoprolol Tartrate 12.5 Mg Halftab) 12.5 mg PO BID [facility]; Protocol Last Admin: 09/19/24 09:47 Dose: 12.5 mg Documented By: SANDRITA Multivitamins/Vitamin C (Multivitamin Tablet) 1 tab PO DAILY [facility] Last Admin: 09/19/24 09:47 Dose: 1 tab Documented By: SANDRITA Omeprazole (Omeprazole 20 Mg Capsule.Dr) 20 mg PO BID@0630,1630 [facility] Last Admin: 09/19/24 06:05 Dose: 20 mg Documented By: WICHO Ondansetron HCl (Ondansetron Hcl 4 Mg/2 Ml Vial) 4 mg IVPUSH Q8H PRN PRN Reason: Nausea and Vomiting Oseltamivir Phosphate (Oseltamivir Phosphate 30 Mg Capsule) 30 mg PO Q12H [facility] Stop: 09/20/24 21:01 Last Admin: 09/19/24 09:47 Dose: 30 mg Documented By: SANDRITA Sertraline HCl (Sertraline Hcl 50 Mg Tablet) 50 mg PO DAILY [facility] Last Admin: 09/19/24 09:47 Dose: 50 mg Documented By: SANDRITA Sodium Chloride (0.9 % Sodium Chloride Flush 3 Ml Syringe) 3 ml IVFLUSH QSHIFT [facility] Last Admin: 09/19/24 07:38 Dose: 3 ml Documented By: PRIMO Tolterodine Tartrate (Tolterodine Tartrate La 4 Mg Cap.Er.24h) 4 mg PO DAILY [facility] Last Admin: 09/19/24 09:47 Dose: 4 mg Documented By: SANDRITA Vitamin D (Cholecalciferol (Vitamin D3) 25 Mcg Tablet) 50 mcg PO DAILY [facility] Last Admin: 09/19/24 09:47 Dose: 50 mcg Documented By: SANDRITA Warfarin Sodium (Warfarin Sodium 4 Mg Tablet) 4 mg PO DAILY@1800 [facility] Last Admin: 09/18/24 17:42 Dose: 4 mg Documented By: MARCO ANTONIO Labs 09/16/24 12:30 09/17/24 05:38 Labs: Laboratory Results - last 24 hr 09/18/24 09/18/24 09/19/24 16:55 21:03 07:09 PT 25.6 H INR 2.2 H POC Glucose 246 H 151 H 09/19/24 09/19/24 09/19/24 07:21 08:59 11:23 PT INR POC Glucose 194 H 221 H 222 H Microbiology Microbiology Results: Microbiology 09/16/24 12:37 Blood Culture - Preliminary Blood - Venous No growth after 48 hours. 09/16/24 12:30 Blood Culture - Preliminary Blood - Venous No growth after 48 hours. 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 Acute hypoxic respiratory failure due to acute influenza A infection continue Tamiflu, DuoNebs, Solu-Medrol, guaifenesin Procalcitonin WNL, no convincing evidence for pneumonia on CXR Currently no indication to continue antibiotics at this time Titrate supplemental O2>92, wean as tolerated PT consult> STR Viral sepsis. 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
[2024-09-19 15:24] VITALS: BP 139/65; PULSE 65; RESP 18; TEMP 36.3; O2SAT 93
[2024-09-19 16:28] LABS: Glucose, Whole Blood 277 mg/dL (60-115)
[2024-09-19] MEDS: Warfarin Sodium 4 MG TABLET PO (17:42)
[2024-09-19 19:08] VITALS: BP 142/65; PULSE 62; RESP 98; TEMP 36.1; O2SAT 97
[2024-09-19 19:27] VITALS: PULSE 66; RESP 16; O2SAT 96
[2024-09-19 20:40] LABS: Glucose, Whole Blood 204 mg/dL (60-115)
[2024-09-19] MEDS: Atorvastatin Calcium 20 MG TABLET PO (21:40)
[2024-09-20] VITALS (7 sets, daily range): BP systolic 125–161; BP diastolic 64–80; PULSE 60–79; RESP 16–18; TEMP 36–36.9; O2SAT 93–98
[2024-09-20] MEDS: Levothyroxine Sodium 100 MCG TABLET PO (06:07)
[2024-09-20] MEDS: Omeprazole 20 MG CAPSULE.DR PO ×2 (06:07→16:59)
[2024-09-20 07:28] LABS: INTERNATIONAL NORM RATIO 2.4 (0.9-1.1)
[2024-09-20 07:32] LABS: Glucose, Whole Blood 200 mg/dL (60-115)
[2024-09-20] MEDS: Insulin Lispro 100 UNIT/ML 3 ML VIAL SUBCUT ×4 (08:07→22:06)
[2024-09-20] MEDS: Insulin Glargine,Hum.rec.anlog 100 UNIT/ML 10 ML VIAL 21 UNIT SUBCUT (08:07)
[2024-09-20] MEDS: Sertraline HCL 50 MG TABLET PO (08:08)
[2024-09-20] MEDS: Oseltamivir Phosphate 30 MG CAPSULE PO ×2 (08:08→22:07)
[2024-09-20] MEDS: Tolterodine Tartrate LA 4 MG CAP.ER.24H PO (08:08)
[2024-09-20] MEDS: Furosemide 20 MG TABLET 60 MG PO (08:08)
[2024-09-20] MEDS: Cholecalciferol (Vitamin D3) 25 MCG TABLET 50 MCG PO (08:08)
[2024-09-20] MEDS: Docusate Sodium 100 MG CAPSULE PO ×2 (08:08→22:07)
[2024-09-20] MEDS: Metoprolol Tartrate 12.5 MG HALFTAB PO ×2 (08:08→22:06)
[2024-09-20] MEDS: predniSONE 20 MG TABLET 40 MG PO (08:08)
[2024-09-20] MEDS: Multivitamin TABLET 1 TAB PO (08:08)
[2024-09-20] MEDS: 0.9 % Sodium Chloride Flush 3 ML SYRINGE IVFLUSH ×3 (08:09→22:07)
--- NOTE | 2024-09-20 08:41 | PC.RT ---
Pt titrated to RA, SATs 94%.
[2024-09-20 11:36] LABS: Glucose, Whole Blood 202 mg/dL (60-115)
[2024-09-20] MEDS: Fluticasone Propionate Nasal 16 GM SPRAY 2 SPRAY NOSTRIL-B (11:51)
--- NOTE | 2024-09-20 12:22 | MHC.CM.PN ---
PER MD ROUNDS, PT IS READY TO DC PENDING SAFE DISPO STR HAS BEEN RECOMMENDED, HOWEVER REFERRALS HAVE BEEN BROADCAST WITHIN 25 MILES WITH NO BED OFFERS PTS DAUGHTER IS AWARE AND STATES THEY REALLY WANT HER TO BE CLOSE BY, BUT SHE UNDERSTANDS THE BARRIERS REFERRAL EXPANDED
--- NOTE | 2024-09-20 12:34 | P.PNIM_ITS ---
Subjective Subjective Date of Service: 09/20/24 Interval History: Seen and examined this morning Follow-up for influenza Patient is sitting up in chair, off oxygen reports no shortness a breath, cough is improving Review of Systems Review of Systems: Yes all other systems are reviewed and are negative Constitutional Constitutional: Denies chills and Denies fever(s) Cardiovascular Cardiovascular: Denies chest pain, Denies palpitations and Denies dyspnea Respiratory Respiratory: Reports cough and Denies dyspnea Gastrointestinal Gastrointestinal: Denies abdominal pain Endocrine Endocrine: Denies palpitations Physical Exam 2 Vital Signs: Vital Signs: Last Vital Signs Temp 97.0 F 09/20/24 07:19 Pulse 60 09/20/24 10:26 Resp 18 09/20/24 07:19 BP 161/72 H 09/20/24 10:26 Pulse Ox 98 09/20/24 10:26 O2 Del Method Nasal Cannula 09/20/24 07:19 O2 Flow Rate 2 09/20/24 07:19 BMI result Body Mass Index 32.8 Const: General: comfortable, no acute distress, alert, awake and Physically active Nutritional Appearance: overweight Orientation/consciousness: p atient oriented x3 Resp: Effort & Inspection: normal respiratory effort, able to speak in complete sentences, no respiratory distress and no use of accessory muscles Cardio: Rate: regular rate GI: Inspection: No distended Palpation (GI): Soft to palpation Neuro: General: patient oriented x3, moves all extremities and CN's II-XI intact bilaterally Objective Data Active Medications Acetaminophen (Acetaminophen 325 Mg Tablet) 650 mg PO Q6H PRN PRN Reason: Pain, Mild 1-3,fever,headache Last Admin: 09/19/24 12:02 Dose: 650 mg Documented By: SANDRITA Albuterol/Ipratropium (Albuterol/Iprat 2.5/0.5mg 3 Ml Ampul.Neb) 3 ml INHALE RQ6H WHILE AWAKE [facility] Last Admin: 09/20/24 08:18 Dose: Not Given Documented By: WEN Non-Admin Reason: pt eating Albuterol/Ipratropium (Albuterol/Iprat 2.5/0.5mg 3 Ml Ampul.Neb) 3 ml INHALE RQ4H WHILE AWAKE PRN PRN Reason: Shortness of Breath/Wheezing Atorvastatin Calcium (Atorvastatin Calcium 20 Mg Tablet) 20 mg PO BEDTIME [facility] Last Admin: 09/19/24 21:40 Dose: 20 mg Documented By: SUMMER Calcium Carbonate (Calcium Carbonate 750 Mg Tab.Chew) 750 mg PO Q4H PRN PRN Reason: Heartburn Dextrose (Dextrose 50 % 25 Gm/50 Ml Syringe) 25 gm IVPUSH Q15M PRN; Protocol PRN Reason: per Hypoglycemia Standing Ord. Docusate Sodium (Docusate Sodium 100 Mg Capsule) 100 mg PO BID [facility] Last Admin: 09/20/24 08:08 Dose: 100 mg Documented By: SANDRITA Fluticasone Propionate (Fluticasone Propionate Nasal 16 Gm [place]) 2 spray NOSTRIL-B DAILY [facility] Last Admin: 09/20/24 11:51 Dose: 2 spray Documented By: SANDRITA Fluticasone/Vilanterol (Fluticasone/Vilanterol 200/25 Blst.W.Dev) 1 puff INHALE RDAILY [facility] Last Admin: 09/20/24 08:19 Dose: Not Given Documented By: WEN Non-Admin Reason: pt eating Furosemide (Furosemide 20 Mg Tablet) 60 mg PO DAILY [facility]; Protocol Last Admin: 09/20/24 08:08 Dose: 60 mg Documented By: SANDRITA Glucose (Glucose Gel 15 Gm Gel..Gram.) 15 gm PO Q15M PRN; Protocol PRN Reason: per Hypoglycemia Standing Ord. Guaifenesin/Dextromethorphan (Guaifenesin Dm 200/20/10 Ml 10 Ml Syrup) 10 ml PO Q4H PRN PRN Reason: Cough Insulin Glargine (Insulin Glargine,Hum.Rec.Anlog 100 Unit/Ml 10 Ml Vial) 21 unit SUBCUT DAILY [facility] Last Admin: 09/20/24 08:07 Dose: 21 unit Documented By: SANDRITA Insulin Human Lispro (Insulin Lispro 100 Unit/Ml 3 Ml Vial) 0 unit SUBCUT QIDACHS [facility]; Protocol Last Admin: 09/20/24 11:50 Dose: 4 unit Documented By: SANDRITA Levothyroxine Sodium (Levothyroxine Sodium 100 Mcg Tablet) 100 mcg PO DAILY@0600 [facility] Last Admin: 09/20/24 06:07 Dose: 100 mcg Documented By: SUMMER Loratadine (Loratadine 10 Mg Tablet) 10 mg PO DAILY PRN PRN Reason: Allergy Symptoms Magnesium Hydroxide (Milk Of Magnesia 30 Ml Oral.Susp) 30 ml PO DAILY PRN PRN Reason: Constipation Melatonin (Melatonin 3 Mg Tablet) 6 mg PO BEDTIME PRN PRN Reason: Insomnia Metoprolol Tartrate (Metoprolol Tartrate 12.5 Mg Halftab) 12.5 mg PO BID [facility]; Protocol Last Admin: 09/20/24 08:08 Dose: 12.5 mg Documented By: SANDRITA Multivitamins/Vitamin C (Multivitamin Tablet) 1 tab PO DAILY [facility] Last Admin: 09/20/24 08:08 Dose: 1 tab Documented By: SANDRITA Omeprazole (Omeprazole 20 Mg Capsule.Dr) 20 mg PO BID@0630,1630 [facility] Last Admin: 09/20/24 06:07 Dose: 20 mg Documented By: SUMMER Ondansetron HCl (Ondansetron Hcl 4 Mg/2 Ml Vial) 4 mg IVPUSH Q8H PRN PRN Reason: Nausea and Vomiting Oseltamivir Phosphate (Oseltamivir Phosphate 30 Mg Capsule) 30 mg PO Q12H [facility] Stop: 09/20/24 21:01 Last Admin: 09/20/24 08:08 Dose: 30 mg Documented By: SANDRITA Prednisone (Prednisone 20 Mg Tablet) 40 mg PO DAILY [facility] Last Admin: 09/20/24 08:08 Dose: 40 mg Documented By: SANDRITA Sertraline HCl (Sertraline Hcl 50 Mg Tablet) 50 mg PO DAILY [facility] Last Admin: 09/20/24 08:08 Dose: 50 mg Documented By: SANDRITA Sodium Chloride (0.9 % Sodium Chloride Flush 3 Ml Syringe) 3 ml IVFLUSH QSHIFT [facility] Last Admin: 09/20/24 08:09 Dose: 3 ml Documented By: SANDRITA Tolterodine Tartrate (Tolterodine Tartrate La 4 Mg Cap.Er.24h) 4 mg PO DAILY [facility] Last Admin: 09/20/24 08:08 Dose: 4 mg Documented By: SANDRITA Vitamin D (Cholecalciferol (Vitamin D3) 25 Mcg Tablet) 50 mcg PO DAILY [facility] Last Admin: 09/20/24 08:08 Dose: 50 mcg Documented By: SANDRITA Warfarin Sodium (Warfarin Sodium 4 Mg Tablet) 4 mg PO DAILY@1800 [facility] Last Admin: 09/19/24 17:42 Dose: 4 mg Documented By: SANDRITA Labs 09/16/24 12:30 09/17/24 05:38 Labs: Laboratory Results - last 24 hr 09/19/24 09/19/24 09/20/24 16:18 20:37 06:09 Hold Purple Top SEE NOTE PT 28.0 H INR 2.4 H POC Glucose 277 H 204 H 09/20/24 09/20/24 07:21 11:18 Hold Purple Top PT INR POC Glucose 200 H 202 H Assessment and Plan (1) Influenza A: Status: Acute Plan This is an 89-year-old female with a PMH significant for?CHF, paroxysmal AFib on warfarin, HTN, HLD, insulin-dependent type 2 diabetes, hypothyroidism, 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 Acute hypoxic respiratory failure due to acute influenza A infection continue Tamiflu, DuoNebs, Solu-Medrol, guaifenesin Procalcitonin WNL, no convincing evidence for pneumonia on CXR Currently no indication to continue antibiotics at this time weaned to room air PT consult> STR Viral sepsis. 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 Quality Stroke Does the patient have a stroke diagnosis?: No VTE Prior VTE?: No VTE Risk Level:: Medical - moderate - high VTE Device Contraindication: Treatment Not Indicated VTE Drug Contraindication: N/A - Med Ordered
[2024-09-20] MEDS: Albuterol/Iprat 2.5/0.5MG 3 ML AMPUL.NEB INHALE ×2 (15:11→19:31)
[2024-09-20 16:38] LABS: Glucose, Whole Blood 242 mg/dL (60-115)
[2024-09-20] MEDS: Warfarin Sodium 4 MG TABLET PO (18:05)
[2024-09-20 20:05] LABS: Glucose, Whole Blood 230 mg/dL (60-115)
[2024-09-20] MEDS: Atorvastatin Calcium 20 MG TABLET PO (22:07)
--- NOTE | 2024-09-21 | ECG_ITS ---
Test Reason : rythm change Blood Pressure : */* mmHG Vent. Rate : 66 BPM Atrial Rate : 66 BPM P-R Int : 382 ms QRS Dur : 96 ms QT Int : 368 ms P-R-T Axes : 63 44 108 degrees QTcB Int : 385 ms Sinus rhythm with 1st degree A-V block Nonspecific ST and T wave abnormality Abnormal ECG When compared with ECG of 16-Sep-2024 12:40, Nonspecific T wave abnormality no longer evident in Inferior leads T wave inversion no longer evident in Lateral leads Referred By: Tavo Cannon Electronically Signed By: MANE MULLIGAN
--- NOTE | 2024-09-21 | ECG_ITS ---
Test Reason : rythm change Blood Pressure : */* mmHG Vent. Rate : 71 BPM Atrial Rate : 71 BPM P-R Int : 378 ms QRS Dur : 92 ms QT Int : 372 ms P-R-T Axes : 57 60 78 degrees QTcB Int : 404 ms Sinus rhythm with 1st degree A-V block with occasional Premature ventricular complexes Otherwise normal ECG When compared with ECG of 21-Sep-2024 03:13, Premature ventricular complexes are now Present Referred By: Davida Rodrigez Electronically Signed By: MANE MULLIGAN
[2024-09-21 03:31] LABS: Anion Gap 12 (12-20); Blood Urea Nitrogen 29 mg/dL (9-16); Calcium 9.6 mg/dL (8.4-10.2); Carbon Dioxide 32 mmol/L (22-29); Chloride 100 mmol/L (96-108); Creatinine Clr Calc Pharmacy 46.6; Estimated Glomerular Filt Rate 52; Glucose Random 192 mg/dL (60-115); Potassium 2.9 mmol/L (3.3-5.1); Sodium 141 mmol/L (135-145)
[2024-09-21 03:32] VITALS: BP 158/72; PULSE 64; RESP 18; TEMP 36.3; O2SAT 94
[2024-09-21 03:49] LABS: Magnesium 1.6 mg/dL (1.6-2.6)
[2024-09-21] MEDS: Potassium Chloride Packet 20 MEQ PACKET 40 MEQ PO ×2 (03:50→08:08)
[2024-09-21] MEDS: Omeprazole 20 MG CAPSULE.DR PO (05:30)
[2024-09-21] MEDS: Levothyroxine Sodium 100 MCG TABLET PO (05:30)
--- NOTE | 2024-09-21 05:57 | PM.EVENT ---
Event Note Date of Service: 09/21/24 Event Note: The patient has PVCs on the monitor, likely due to hypokalemia (K 2.9) and hypomagnesemia (Mg 1.6). Management includes potassium repletion with 10 mEq IV KCl and 40 mEq PO KCl ordered for sustained correction, aiming to maintain K? > 4.0 to prevent arrhythmias. Magnesium repletion with 2 g IV Mg has been initiated, as maintaining Mg > 2.0 . The patient remains asymptomatic, but cardiac monitoring will continue to assess for rhythm changes. An ECG has been ordered to evaluate for QT prolongation or worsening ectopy. Repeat electrolytes later Time Spent With Patient Time: Total time managing care of this patient today ____ minutes.
[2024-09-21] MEDS: Potassium Chloride/H20 10 MEQ/100 ML PIGGYBACK 100 MEQ IV (06:25)
[2024-09-21 07:05] LABS: INTERNATIONAL NORM RATIO 2.7 (0.9-1.1)
[2024-09-21 07:09] VITALS: BP 184/82; PULSE 70; RESP 18; TEMP 36.5; O2SAT 92
[2024-09-21 07:35] LABS: Glucose, Whole Blood 120 mg/dL (60-115)
[2024-09-21] MEDS: Albuterol/Iprat 2.5/0.5MG 3 ML AMPUL.NEB INHALE ×2 (07:55→13:20)
[2024-09-21 07:56] VITALS: PULSE 74; RESP 16; O2SAT 97
[2024-09-21] MEDS: Metoprolol Tartrate 12.5 MG HALFTAB PO (08:08)
[2024-09-21] MEDS: Furosemide 20 MG TABLET 60 MG PO (08:08)
[2024-09-21] MEDS: Tolterodine Tartrate LA 4 MG CAP.ER.24H PO (08:08)
[2024-09-21] MEDS: Docusate Sodium 100 MG CAPSULE PO (08:08)
[2024-09-21] MEDS: predniSONE 20 MG TABLET 40 MG PO (08:08)
[2024-09-21] MEDS: Cholecalciferol (Vitamin D3) 25 MCG TABLET 50 MCG PO (08:08)
[2024-09-21] MEDS: Multivitamin TABLET 1 TAB PO (08:08)
[2024-09-21] MEDS: Insulin Glargine,Hum.rec.anlog 100 UNIT/ML 10 ML VIAL 21 UNIT SUBCUT (08:10)
[2024-09-21] MEDS: Sertraline HCL 50 MG TABLET PO (08:10)
[2024-09-21] MEDS: Magnesium Sulfate/H2O 2 GM/50 ML PIGGYBACK IV (08:16)
[2024-09-21 11:30] LABS: Glucose, Whole Blood 238 mg/dL (60-115)
[2024-09-21] MEDS: Insulin Lispro 100 UNIT/ML 3 ML VIAL SUBCUT (12:28)
--- NOTE | 2024-09-21 13:07 | PM.DS ---
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 Pt lives at home with family and has had some sick contacts with similar symptoms. Pt complains of all-over body pain, though especially in left side and left lower back. Cough has been occasionally productive of yellowish sputum. Has had chest tightness associated with cough. No nausea or vomiting, but 1-2 episodes of loose stool. Pt has been feeling overall weak and fatigued, was unable to ambulate earlier today. Normally can walk across the room with her walker. Was found to be febrile at home up to 102 by GEOTHERMAL OPERATIONS MANAGER, and satting at 83% on RA by EMS. GEOTHERMAL OPERATIONS MANAGER report pt with chronic LLE at baseline. In the ED pt was febrile up to 102.1, tachycardic up to 102, tachypneic up to 24, and hypoxic at 88% on RA. Labs were significant for testing positive for influenza, magnesium 1.3, initial troponin 45.0, CRP 6.48, and BNP 1122. No leukocytosis. Stable H&H. Procalcitonin WNL at 0.06. No significant electrolyte abnormalities. Renal function WNL. Hepatic function WNL. CXR showed possible focus of atelectasis or infiltrate and retrocardiac region. CT?of abdomen and pelvis negative for acute abdomen, though did show colonic diverticulosis and cholelithiasis. EKG demonstrated sinus rhythm with first-degree AV block but no evidence of significant ST elevations or depressions. Pt was treated with acetaminophen, IVF, ondansetron, Mag sulfate, DuoNebs, Solu-Medrol, Tamiflu, azithromycin, and Zosyn. Pt will be admitted to the hospital for treatment and further evaluation of acute hypoxic respiratory failure in setting of acute influenza type A infection. Acute hypoxic respiratory failure due to acute influenza A infection Treated with Tamiflu, DuoNebs, Solu-Medrol, guaifenesin. Completed course of Tamiflu during hospitalization, transitioned to oral prednisone.Procalcitonin WNL, no convincing evidence for pneumonia on CXR, no indication to continue antibiotics at this time weaned to room air and able to ambulate without shortness of breath. Has remained afebrile. She was seen by Physical therapy who recommended short-term rehab ultimately family decided to take her home. She does have [facility] services and family support. Viral sepsis. Sepsis resolved Secondary to viral flu illness Procalcitonin WNL, imaging without convincing evidence of superimposed pneumonia Elevated troponins Initial troponin 45.0 with repeat flat at 61.4. probably type 2 due to demand from hypoxia. Pt asymptomatic, EKG without ischemic changes. has outpatient stress test scheduled. HFrEF Elevated BNP above baseline, but imaging negative for pleural effusions or edema; LLE at baseline per GEOTHERMAL OPERATIONS MANAGER. Does not appear to be in acute exacerbation. Continued on baseline metoprolol and home Lasix Hypokalemia, hypomagnesemia Possibly due to Lasix. No diarrhea. Replaced and improved. Recommend repeat labs early next week Time Attestation Discharge Coordination Time (in mins): 35 Quality: Safe Use of Opioids Does Pt have an Active Cancer Diagnosis on the Problem List?: No Quality: Stroke Does the patient have a stroke diagnosis?: No Physical Exam Vital Signs: Vital Signs: Last Vital Signs Temp 97.7 F 09/21/24 07:09 Pulse 74 09/21/24 07:56 Resp 16 09/21/24 07:56 BP 184/82 H 09/21/24 07:09 Pulse Ox 92 09/21/24 07:09 O2 Del Method Room Air 09/21/24 07:09 O2 Flow Rate 2 09/20/24 07:19 BMI result Body Mass Index 32.8 Const: General: comfortable, no acute distress, alert, awake and Physically active Nutritional Appearance: overweight Orientation/consciousness: patient oriented x3 Resp: Effort & Inspection: normal respiratory effort, able to speak in complete sentences, no respiratory distress and no use of accessory muscles Cardio: Rate: regular rate GI: Inspection: No distended Palpation (GI): Soft to palpation Neuro: General: patient oriented x3, moves all extremities and CN's II-XI intact bilaterally DS: Data Data Completed and Pending Labs on day of discharge: Laboratory Results - last 24 hr 09/20/24 09/20/24 09/21/24 16:33 19:13 03:06 PT INR Sodium 141 Potassium 2.9 L* D Chloride 100 Carbon Dioxide 32 H Anion Gap 12 BUN 29 H Creatinine 1.00 Estim Creat Clear Calc 46.6 Estimated GFR 52 POC Glucose 242 H 230 H Random Glucose 192 H Calcium 9.6 Magnesium 1.6 09/21/24 09/21/24 09/21/24 06:09 07:09 11:26 PT 32.0 H INR 2.7 H Sodium Potassium Chloride Carbon Dioxide Anion Gap BUN Creatinine Estim Creat Clear Calc Estimated GFR POC Glucose 120 H 238 H Random Glucose Calcium Magnesium Preliminary micro results at discharge 09/16/24 12:37 Blood Culture - Preliminary Blood - Venous No growth after 48 hours. 09/16/24 12:30 Blood Culture - Preliminary Blood - Venous No growth after 48 hours. Discharge Plan Discharge Anticipated Discharge Date/Time: 09/21/24 16:00 Patient Disposition: Home Health Service Discharge Diagnosis: influenza a low potassium, low magnesium hypoxia Referrals: Valeri Lerner DO [Primary Care Provider] - 1 Week Discharge Medications: Continued insulin lispro [Humalog KwikPen Insulin] 100 unit/mL insulin pen See Protocol subcut TIDA Protocol: Insulin Correction Scale Less than or equal to 110 ---- Give (units): 0 111 to 150 Give (units): 0 151 to 200 Give (units): 2 201 to 250 Give (units): 4 251 to 300 Give (units): 6 301 to 350 Give (units): 8 Greater than 350 Give (units): 10 Call MD if Blood Glucose > : 350 metformin 500 mg tablet extended release 24 hr 500 mg PO BIDWM acetaminophen 650 mg Tablet Extended Release 650 mg PO Q8H PRN (Reason: Pain/Fever) warfarin 4 mg tablet 4 - 8 mg PO DAILY loratadine 10 mg Tablet 10 mg PO DAILY PRN (Reason: Allergy Symptoms) ciclopirox 0.77 % cream 1 appl topical BID Rx Instructions: apply to feet and toes solifenacin 10 mg tablet 10 mg PO DAILY Ozempic 0.25 mg or 0.5 mg (2 mg/3 mL) pen injector 0.5 mg subcut QWEEK furosemide 20 mg tablet 60 mg PO DAILY insulin glargine [Lantus Solostar U-100 Insulin] 100 unit/mL (3 mL) insulin pen 30 unit subcut DAILY (DME) pen needle, diabetic 32 gauge x 5/32 needle See Rx Instructions .ROUTE .MEDSUPPLY Qty: 50 Rx Instructions: As directed cholecalciferol (vitamin D3) 50 mcg (2,000 unit) tablet 50 mcg PO DAILY sertraline 50 mg tablet 50 mg PO DAILY fluticasone propionate 50 mcg/actuation spray,suspension 2 spray intranasal DAILY omeprazole 20 mg capsule,delayed release(DR/EC) 20 mg PO BID@0630,1630 fluticasone propion-salmeterol 500-50 mcg/dose blister with device 1 inh inhalation BID levothyroxine 100 mcg tablet 100 mcg PO DAILY@0600 (DME) lancets Misc See Rx Instructions .ROUTE .MEDSUPPLY Qty: 100 Rx Instructions: As directed (DME) blood sugar diagnostic Strip See Rx Instructions Not Applicable BID Qty: 10 Rx Instructions: As directed atorvastatin 20 mg tablet 20 mg PO BEDTIME metoprolol tartrate 25 mg tablet 12.5 mg PO BID Tab-A-Judith Multivitamin w-iron 15 mg iron- 400 mcg tablet 1 tab PO QAM (DME) Sidestream Misc See Rx Instructions .ROUTE DIRECTED Qty: 1 Rx Instructions: As directed docusate sodium 100 mg capsule 100 mg PO BID Discharge Orders: Discharge Order (Routine); Ordered 09/21/24 Ordered By: Davida Rodrigez Activity on Discharge: As tolerated Stand Alone Forms: Patient Portal Discharge page Print Language: Albanian Other Ambulatory Orders: Basic Metabolic Panel (Routine) Timeframe: [id number] [facility] Location: Laboratory Ordered By: Davida Rodrigez Care Plan Goals: see below Health Concerns: acute respiratory failure and viral sepsis due to influenza a low potassium, low magnesium Plan of Treatment: Influenza-completed course of Tamiflu repeat potassium level next week- can consider reducing dose of lasix if potassium levels remain low Assessment: see discharge summary
[2024-09-21 13:20] VITALS: PULSE 70; RESP 18; O2SAT 96
[2024-09-21 13:26] LABS: Potassium 4.1 mmol/L (3.3-5.1)
--- NOTE | 2024-09-21 13:41 | P.F2F_ITS ---
Service Date Service Date: 09/21/24 Encounter Date of encounter: 09/21/24 Reasons for Services Signs and symptoms assessed: needs group home for medication management; repeat potassium and magnesium levels early next week Reason for group home: medication management Reason for physical therapy: home safety and mobility, therapeutic exercises and gait/transfer training MD Overseeing Care: Valeri Lerner Homebound: Leaving the home is medically contraindicated at this time without the asist of a device and/or another person due th the listed conditions above and below. Reason homebound: unsteady gait / fall risk Certification: Based on the above findings, I certify that this patient is confined to the home and needs intermittent group home care, physical therapy and/or speech therapy, or continues to need occupational therapy. The patient is under my care, and I have initiated the establishment of the plan of care. The patient will be followed by a physician who will periodically review the plan of care. Time Spent With Patient Time: Total time managing care of this patient today ____ minutes.
--- NOTE | 2024-09-21 15:29 | MHC.CM.PN ---
PT CLEARED TO DC TODAY, DAVID CALLED PTS DAUGHTER, ANTHONY, WHO STATES SHE SAW THE PT YESTERDAY AND THE PT WAS WALKING AND OFF OF O2, SO THEY FEEL SHE CAN RETURN HOME SHE SAYS THE PT HAS A STRESS TEST SCHEDULED FOR MONDAY AND WONDERS IF SHE SHOULD GO, CM CONSULTED HOSPITALIST, WHO CONSULTED CARDIOLOGY PER CARDIOLOGY, PT MAY WANT TO RESCHEDULE STRESS TEST. THIS WAS RELAYED TO DAUGHTER WHO EXPRESSED CONCERNS IT IS A SOMEWHAT URGENT MATTER, AFTER FURTHER DISCUSSION WITH THE HOSPITALIST, SHE WAS ENCOURAGED TO CONSULT THE PROVIDER WHO ORDERED THE STRESS TEST. ANTHONY REQUESTED A NOTE STATING THIS SO SHE COULD BRING IT MONDAY MORNING. DAVID PROVIDED A NOTE THAT STATED HAND MITER OPERATOR RECOMMENDED IT BE RESCHEDULED, HOWEVER SINCE DAUGHTER INDICATED IT IS URGENT, SHE WAS ENCOURAGED TO SPEAK TO THE ORDERING PROVIDER. ANTHONY STATES PT WAS ACTIVE WITH [facility] FLUID POWER MECHANIC, A RETURN REFERRAL WAS SENT TO THEM ON ADMISSION, HOWEVER THEY HAVE NOT RESPONDED ANTHONY PROVIDED THE PHONE NUMBER FOR THE PTS HOME NURSE, COLLEEN [phone]. DAVID CALLED COLLEEN WHO STATED HE WOULD RESUME VISITS TOMORROW AND ASKED THAT A COPY OF PTS DCS BE SENT HOME WITH HER HE WILL NOT BE ABLE TO ACCESS THE COPY SENT TO THE OFFICE. COPY IN DC FOLDER PTS FAMILY WILL PROVIDE TRANSPORT AROUND 1600 HOURS
[2024-09-21 15:30] VITALS: BP 147/69; PULSE 75; RESP 15; TEMP 36.1; O2SAT 90
[2024-09-21 16:04] LABS: Glucose, Whole Blood 321 mg/dL (60-115)
== END 2024-09-21 16:54 | disposition home health service (06) | DRG 193 ==
LOC: HO.ED 14:47 → HO.EDOVER 16:00 → HO.S3 09-19 08:07
PROVIDERS: Hospitalist; Internal Medicine; Nurse Practitioner Acute Care; Admitting Provider Student in an Organized Health Care Education/Training Program; Emergency Provider Emergency Medicine; PCP Family Medicine; Visit Provider Physician Assistant Medical
DX: J10.1 Influenza due to other identified influenza virus with other respiratory manifestations (principal); J96.01 Acute respiratory failure with hypoxia; I50.22 Chronic systolic (congestive) heart failure; E11.42 Type 2 diabetes mellitus with diabetic polyneuropathy; E78.5 Hyperlipidemia, unspecified; E03.9 Hypothyroidism, unspecified; E87.6 Hypokalemia; E83.42 Hypomagnesemia; I49.3 Ventricular premature depolarization; I25.10 Atherosclerotic heart disease of native coronary artery without angina pectoris; I48.0 Paroxysmal atrial fibrillation; Z20.822 Contact with and (suspected) exposure to COVID-19; Z86.718 Personal history of other venous thrombosis and embolism; Z79.4 Long term (current) use of insulin; Z79.01 Long term (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; Z79.51 Long term (current) use of inhaled steroids; Z79.84 Long term (current) use of oral hypoglycemic drugs; Z79.890 Hormone replacement therapy; Z79.899 Other long term (current) drug therapy
CPT/HCPCS: 0241U; 36415; 71045; 74176; 80048; 80076; 81001; 82803; 82947; 83605; 83735; 83880; 84132; 84145; 84484; 85025; 85610; 86140; 87040; 93005; 94640; 97110; 97161; 97530; 99285; J0131; J0456; J2405; J2543; J2919; J3475; J3480; J7120

== ENCOUNTER → 2024-09-16 12:25 | Outpatient (BNV) | payer OTHER, SELFPAY | PROVIDERS: Emergency Provider Emergency Medicine; PCP Family Medicine; Visit Provider Radiology Diagnostic Radiology | DX: R10.9 Unspecified abdominal pain (principal); R05.9 Cough, unspecified | CPT/HCPCS: 71045; 74176 ==

== ENCOUNTER → 2024-09-16 12:25 | Outpatient (BNV) | payer OTHER, SELFPAY | PROVIDERS: Admitting Provider Student in an Organized Health Care Education/Training Program; Emergency Provider Emergency Medicine; PCP Family Medicine; Visit Provider Internal Medicine | DX: R94.31 Abnormal electrocardiogram [ECG] [EKG] (principal); R53.1 Weakness | CPT/HCPCS: 93010 ==

== ENCOUNTER 2024-09-16 16:00 | Outpatient (BNV) | payer OTHER, SELFPAY | END 2024-09-21 03:13 | PROVIDERS: Admitting Provider Student in an Organized Health Care Education/Training Program; Emergency Provider Emergency Medicine; PCP Family Medicine; Visit Provider Internal Medicine | DX: I44.0 Atrioventricular block, first degree (principal); I49.3 Ventricular premature depolarization | CPT/HCPCS: 93010 ==

== ENCOUNTER → 2024-09-16 16:00 | Outpatient (BNV) | payer OTHER, SELFPAY | PROVIDERS: Admitting Provider Student in an Organized Health Care Education/Training Program; Emergency Provider Emergency Medicine; PCP Family Medicine; Visit Provider Nurse Practitioner Acute Care | DX: J10.1 Influenza due to other identified influenza virus with other respiratory manifestations (principal); I10 Essential (primary) hypertension | CPT/HCPCS: 99232; 99239; 99499; G0180 ==

== ENCOUNTER 2024-10-10 20:30 | Inpatient (IN) | payer OTHER, SELFPAY ==
--- NOTE | ~2024-10-10 | XR_ITS ---
EXAMINATION: XR CHEST 1 VIEW HISTORY: F U RLL infiltrate and hypoxia COMPARISON: Comparison is made with the prior examination dated 10/10/2024. FINDINGS: A single AP portable view of the chest performed at 2:13 PM is submitted. There are waxing and waning multifocal opacities in both lungs, most prominent at the right lung base and in the left upper lung zone. There is no pleural effusion, pneumothorax, or pulmonary vascular congestion. The heart is enlarged. The aorta is calcified. There is degenerative disc disease of the spine. There is severe degenerative change of the shoulders. XR/XR chest 1V IMPRESSION: Cardiomegaly. Waxing and waning bilateral pulmonary opacities likely representing pneumonia or asymmetric pulmonary edema. Electronically signed by: Tyler Mendez MD 10/16/2024 02:56 PM EDT
--- NOTE | ~2024-10-10 | XR_ITS ---
CLINICAL HISTORY: fever 1 view chest x-ray Comparison: CR - XR CHEST 1V - 09/16/24 13:26 EST Findings: Ill-defined right lower and left mid lung opacities. No effusion. Cardiomegaly. Osteopenia. IMPRESSION: Ill-defined bilateral lung opacities. Consider multifocal pneumonia. This document has been electronically signed by: Mitzi Drew MD on 10/10/2024 23:38:16
--- NOTE | ~2024-10-10 | XR_ITS ---
CLINICAL HISTORY: pain 3 views lumbar spine Comparison: CT/SR - CT ABDOMEN PELVIS WO IV CON - 09/16/24 13:50 EST Findings: Normal vertebral body alignment. Scatter artifact and under exposure significantly limit evaluation of the spine on the lateral images. There are mild appearing compression deformities throughout the lumbar spine which are likely old, however technically indeterminate. Multilevel marginal osteophytes. Severe lower lumbar facet disease. IVC filter in place. IMPRESSION: Within the significant limitations of the exam, the mild multilevel compression deformities of the lumbar spine are favored to be chronic. Further characterization with CT or MRI can be helpful if there is intractable pain. This document has been electronically signed by: Mitzi Drew MD on 10/10/2024 21:55:13
[2024-10-10 20:38] VITALS: BP 106/85; BP 122/72; PULSE 83; PULSE 84; RESP 16; TEMP 37.7; O2SAT 93; O2SAT 94; BMI 36.3
--- OUTSIDE RECORDS SUMMARY | 2024-10-10 20:52 | XMS_ITS | Encounter Summary ---
Author Organization [employer] Address [address] [facility] 7t [place] [address] Care Team Providers Care Manager Generation Name Role Phone Valeri Lerner DO Primary Care Provider Batsheva Gomez PharmD Unavailable Encounter Details Date Type Department Care Team (Late st Contact Info) Description 10/03/2022 Telephone [facility] [address] [employer], [place] [phone] Valeri Lerner DO 230 [place], [place] [phone] Social History Tobacco Use Types Packs/Day Years Used Date Smoking Tobacco: Never Passive Smoke Exposure: Never Smokeless Tobacco: Never Alcohol Use Standard Drinks/Week Comments Never 0 (1 standard drink = 0.6 oz pur e alcohol) Comments Unknown Sex and Gender Information Value Date Recorded Sex Assigned at Female 05/30/2022 10:14 AM EDT Legal Sex Female 10:14 AM EDT Gender Identity Choose not to disclose 10:14 AM EDT Sexual Orientation Straight 05/30/2022 10 :14 AM EDT COVID-19 Exposure Response Date Recorded In the last 10 days, have yo u been in contact with someone who was confirmed or suspected to have Coronavirus/COVID-19? No / Unsure 09/07/2022 11:16 AM EST documented as of this encounter Miscellaneous Notes * Telephone Encounter - Casi Day LPN - 10/03/2022 3:43 PM EST Critical Result Line call received at this time. INR per [facility] draw today = 7.4 Please update PCP Now with result and follow with patient. documented in this encounter Plan of Treatment Upcoming Encounters Date Type Department Care Team (Late st Contact Info) Description 10/18/2024 11:00 AM EDT Office Visit [facility] [address] [place] [phone] Valeri Lerner DO [address] [place] [address] 10/25/2024 3:00 PM EDT Medication Management [address] [address] Batsheva Gomez PharmD [address] [place] [address] documented as of this encounter Visit Diagnoses Not on filedocumented in this encounter Care Teams Manager Generation Relationship Specialty Start Date End Date Valeri Lerner DO [address] [place] [phone] PCP - General Family Medicine 07/13/12 Batsheva Gomez PharmD [address] [place] [phone] Pharmacist Internal Medicine 03/07/24 [employer] 12/08/23 documented as of this encounter
--- OUTSIDE RECORDS SUMMARY | 2024-10-10 20:52 | XMS_ITS ---
Author Organization [facility] Address [address] [place] [phone] Care Team Providers Care Welt Insole Channeler Name Role Phone Valeri Lerner Primary Care Provider UnavailKeenan Dalton Unavailable [phone] REASON FOR VISIT JOURNEYMAN [facility]WR[employer] PPWK Entered Encounters Encounter Location Date Provider Diagnosis [address] [address] 05/16/2024 Keenan Dyer Plan Of Treatment Next Appt Details Provider Name:Keenan Dyer , 12/13/2024 12:45:00 PM, [address] [place] [address], [phone], Progress Notes * ISRAEL HanyB:[birth year] (88 yo F)Acc No.[id number]:05/16/2024 Patient:?Anna Morganlia :1935???Age:88 Y???Sex:Female Address:[address] [place] [address], [phone] * true * Date:? Generated for Printi ng/Fadavieg/eTransmitting on:?10/10/2024 08:52 PM EDT
--- OUTSIDE RECORDS SUMMARY | 2024-10-10 20:52 | XMS_ITS ---
Author Organization [facility] Address [address] [place] [phone] Care Team Providers Care Automatic Door Mechanic Name Role Phone Valeri Lerner Primary Care Provider Keenan Lowery [phone] REASON FOR VISIT paid ADA Encounters Encounter Location Date Provider Diagnosis [address] [address] 04/23/2024 Keenan Dyer Plan Of Treatment Next Appt Details Provider Name:Keenan Dyer , 12/13/2024 12:45:00 PM, [address] [place] [address], [phone], Progress Notes * WOOD HanyB:[birth year] (88 yo F)Acc No.[id number]:04/23/2024 Patient:?Anna Woodlia :1935???Age:88 Y???Sex:Female Address:[address] [place] [address], [phone] * true * Date:? Generated for Printi ng/Faxing/eTransmitting on:?10/10/2024 08:52 PM EDT
--- OUTSIDE RECORDS SUMMARY | 2024-10-10 20:52 | XMS_ITS | Encounter Summary ---
Author Organization [employer] Address [address] [facility] 7t [place] [address] Care Team Providers Care Glass Curvature Gauger Name Role Phone Valeri Lerner DO Primary Care Provider [phone] Batsheva Gomez PharmD Unavailable Encounter Details Date Type Department Care Team (Late st Contact Info) Description 09/29/2022 Abstract [facility] [address] [place], [place] [phone] Sebastian Fierro DDS [address] [place], [place] [phone] Social History Tobacco Use Types Packs/Day Years [...] AM EST documented as of this encounter Plan of Treatment Upcoming Encounters Date Type Department Care Team (Late st Contact Info) Description 10/18/2024 11:00 AM EDT Office Visit [facility] [address] [place] [phone] [place] [address] 10/25/2024 3:00 PM EDT Medication Management [address] [address] Batsheva Gomez PharmD 230 [place] [address] documented as of this encounter Visit Diagnoses Not on filedocumented in this encounter Care Teams Glass Curvature Gauger Relationship Specialty Start Date End Date Valeri Lerner DO [place], [place] [phone] PCP - General Family Medicine 07/13/12 Batsheva Gomez PharmD [address] [place] [address] [phone] Pharmacist Internal Medicine 03/07/24 [employer] 12/08/23 documented as of this encounter
--- OUTSIDE RECORDS SUMMARY | 2024-10-10 20:52 | XMS_ITS | Encounter Summary ---
Author Organization [employer] Address [address] [facility] 7t [place] [address] Care Team Providers Care Legal Advisor Name Role Phone Valeri Lerner DO Primary Care Provider Batsheva Gomez PharmD Unavailable Reason for Visit * Reason Comments Med Refill Encounter Details Date Type Department Care Team (Late st Contact Info) Description 06/20/[address] [facility] 230 [place], [place] [phone] Valeri Lerner DO 230 [place], [place] [phone] Social History Tobacco Use Types Packs/Day Years Used Date Smoking Tobacco: Never Passive Smoke Exposure: Never Smokeless Tobacco: Never Alcohol Use Standard Drinks/Week Comments Never 0 (1 standard drink = 0.6 oz pur e alcohol) Housing Stability Answer Date Recorded What is your housing situation today? I have florence burger 05/20/[address] you li ve. Do you have problems with any of the following? None of the above 05/20/2023 Food Insecurity Answer Date Recorded Within the past 12 months, y ou worried that your food would run out before you got money to buy more: Never True 05/20/2023 Within the past 12 months,th e food you bought just didn't last and you didn't have enough money to get more: Never True Transportation Answer Date Recorded In the past 12 months, has l ack of transportation kept you from medical appts, meetings, work or from getting things needed for daily living? No 05/20/2023 Utilities Answer Date Recorded In the past 12 months, has t he electric, gas, oil or water company threatened to shut off services in your home? No 05/20/2023 Comments Unknown Sex and Gender Information Value Date Recorded Sex Assigned at Female 05/30/2022 10:14 AM EDT Legal Sex Female 10:14 AM EDT Gender Identity Choose not to disclose 10:14 AM EDT Sexual Orientation Straight 05/30/2022 10 :14 AM EDT documented as of this encounter Plan of Treatment Upcoming Encounters Date Type Department Care Team (Late st Contact Info) Description 10/18/2024 11:00 AM EDT Office Visit [facility] [address] [place] [address] Valeri Lerner DO [address] [place] [phone] 10/25/2024 3:00 PM EDT Medication Management [facility] [address] [place] [phone] Batsheva Gomez PharmD [address] [place] [phone] documented as of this encounter Visit Diagnoses Not on filedocumented in this encounter Care Teams Legal Advisor Relationship Specialty Start Date End Date Valeri Lerner DO [address] [place] [phone] PCP - General Family Medicine 07/13/12 Batsheva Gomez PharmD [address] [place] [phone] Pharmacist Internal Medicine 03/07/24 [employer] 12/08/23 documented as of this encounter
--- OUTSIDE RECORDS SUMMARY | 2024-10-10 20:52 | XMS_ITS | Encounter Summary ---
Author Organization [employer] Address [address] [facility] 7t [place] [address] Care Team Providers Care Pantographer Name Role Phone Valeri Lerner DO Primary Care Provider Batsheva Gomez PharmD Unavailable [phone] Reason for Visit * Reason Comments Med Refill Encounter Details Date Type Department Care Team (Late st Contact Info) Description 06/20/2023 Refill [facility] 230 [place], [place] [phone] Valeri Lerner DO 230 [place], [place] [phone] Generalized anxiety disorder Social History Tobacco Use Types Packs/Day Years Used Date Smoking Tobacco: Never Passive Smoke Exposure: Never Smokeless Tobacco: Never Alcohol Use Standard Drinks/Week Comments Never 0 (1 standard drink = 0.6 oz pur e alcohol) Housing Stability Answer Date Recorded What is your housing situation today? I have florence tao 05/20/[address] you li [...] Description 10/18/2024 11:00 AM EDT Office Visit [facility] [address] [place] [phone] Valeri Lerner DO [address] [place] [address] 10/25/2024 3:00 PM EDT Medication Management [facility] [address] [place] [phone] Batsheva Gomez PharmD [address] [place] [phone] documented as of this encounter Visit Diagnoses Diagnosis Generalized anxiety disorder documented in this encounter Care Teams Pantographer Relationship Specialty Start Date End Date Valeri Lerner DO [address] [place] [phone] PCP - General Family Medicine 07/13/12 Batsheva Gomez PharmD [address] [place] [phone] Pharmacist Internal Medicine 03/07/24 [employer] 12/08/23 documented as of this encounter
--- OUTSIDE RECORDS SUMMARY | 2024-10-10 20:52 | XMS_ITS | Encounter Summary ---
Author Organization [employer] Address [address] [facility] 7t [place] [address] Care Team Providers Care Cot Assembler Name Role Phone Valeri Lerner DO Primary Care Provider Batsheva Gomez PharmD Unavailable Encounter Details Date Type Department Care Team (Late st Contact Info) Description 09/23/2022 Abstract [facility] 230 [place], [place] [phone] Valeri Lerner DO 230 [place], [place] [phone] Social History Tobacco Use Types Packs/Day Years [...] Visit [facility] [address] [place] [phone] [place] [address] 10/25/2024 3:00 PM EDT Medication Management [facility] [address] [place] [address] Batsheva Gomez PharmD [address] [place] [address] documented as of this encounter Visit Diagnoses Not on filedocumented in this encounter Care Teams Cot Assembler Relationship Specialty Start Date End Date Valeri Lerner DO [place], [place] [phone] PCP - General Family Medicine 07/13/12 Batsheva Gomez PharmD [address] [place] [address] [phone] Pharmacist Internal Medicine 03/07/24 [employer] 12/08/23 documented as of this encounter
--- OUTSIDE RECORDS SUMMARY | 2024-10-10 20:53 | XMS_ITS ---
[facility] Address [address] [place] [address] Care Team Providers Care Linux Consultant Name Role Phone Valeri Lerner Primary Care Provider Keenan Lowery Unavailable [phone] Allergies Allergen (clinical drug ingredient) Drug/Non Drug [...] Advair Diskus Active Levothyroxine Sodium Active Ipratropium Basalt Active Insulin Lispro Activ e Furosemide Active [...] Type 2 diabetes mellitus with peripheral angiopathy (497165381) Type 2 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) Active confirmed Q7(A), Q8(2B), Q9(1B,2C) Problem Acquired hammer toe of right foot (7894426022785 105) Other hammer toe(s) (acquired), right foot (M20.41) Active confirmed Problem Acquired hammer toe of left foot (6075663420571 103) Other hammer toe(s) (acquired), left foot (M20.42) Active confirmed Vital Signs Height 5 ft 5 in in 08/16/2024 Weight 230 lbs 08/16/2024 BMI 38.27 kg/m2 08/16/2024 Blood pressure systolic 130 mm Hg 08/16/19 25 Blood pressure diastolic 70 mm Hg 025 Procedures Procedure Date Ordered Date Performed Result Body Sit e 74674-OABAJGE NAIL, 6 OR MORE 08/16/2024 N/A 11339-XBNU SKIN LESIONS, OVER 4 08/16/2024 N/A Encounters Encounter Location Date Provider Diagnosis [facility] [address] [address] 08/16/2024 Keenan Dyer Type 2 diabetes mellitus [...] INSTRUCTIONS.pdf) Pending Test Test Name Order Date 91579-KUHUICT NAIL, 6 OR MORE 08/16/2024 44856-MTRQ SKIN LESIONS, OVER 4 08/16/19 25 Next Appt Details Follow Up: 2 Months, Reason: Provider Name:Keenan Dyer , 12/13/2024 12:45:00 PM, [address] [place] [address], [id number], Procedure Notes * Category Sub-Category Detail Notes [...] use of a nail nipper and/or dremel-type profile grinder, to a more viable healthy nail plate [...] to maintain effectiveness in symptomatic relief - 98293 Keratoma Treatment Parring or Cutting o f [...] instrumentation by the physician of record - 17208, Q8 Progress Notes * Hany WOODB:[birth year] (88 yo F)Acc No.[id number]:08/16/2024 Progress Notes Patient:?Nikky WOOD Provider:?Keenan Dyer DPM :[id number]???Age:88 Y???Sex:Female D ate:08/16/2024 Address:[address] [place], [place] [id number] Pcp:Valeri Lerner Subjective: * Chief Complaints: * ???At Risk FootcarePainful N ail(s) aggravated by shoes and causing difficulty standing/walkingToe IrritationSkin Problem * HPI: ???At Risk footcare:?Pt States Last PCP Visit:?Date?07/18/2024 ?Misc?Patient accompanied by, Daughter, ALBIN, who serves as, Ict Security Specialist/Systems Navigator, and/who is physically present in exam room [...] left eye 11/09/2018 * Hospitalization/Major Diagno stic Procedure:?[facility] for a cough 2017 * Family [...] Insulin Lispro Advair Diskus Fluticasone Propionate Ipratropium Basalt Levothyroxine Sodium Metformin & Diet Manage Prod [...] Advair Diskus Taking Fluticasone Propionate Taking Ipratropium Basalt Taking Levothyroxine Sodium Taking Metformin & Diet [...] 7.0 * Examination: ???Ophthalmology Referral: ?DIABETES EYE EXAM?Procedure Performed:?Yes ?Date of Exam Performed?08/16/2024 ?Findings of Diabetic Eye Exam:?no retinopathy?Vascular: ?DP PULSES (B):? 0/4, B/L.?PT PULSES (B):? [...] for office visit today.?ORIENTED:?person, place, and time.?FOOT EXAM:?Lower Extremity Neurological Exam performed:?Yes Date ?Visual exam of foot performed:?Yes ?Date?08/16/2024 ?Footwear Evaluation?Footwear Evaluation performed:?Yes??? Assessment: * Assessment: 1.?Type 2 diabetes mellitus [...] mellitus with diabetic peripheral angiopathy without gangrene?Procedure: 40226-RAZS SKIN LESIONS, OVER 4 3.?Tinea unguium?Procedure: 86231-LEPVBJE NAIL, 6 OR MORE 4.?Tinea pedis of [...] use of a nail nipper and/or dremel-type profile grinder, to a more viable healthy nail plate [...] to maintain effectiveness in symptomatic relief - 50983.?Keratoma Treatment:?Parring or Cutting of Benign Hyperkeratotic Lesion(s)?(-57) [...] instrumentation by the physician of record - 15807, Q8.? * Procedure Codes:?65452 DEBRI DE NAIL, 6 OR MORE, Modifiers: XS 75253 TRIM SKIN LESIONS, OVER 4, Modifiers: XS [...] Provider:?Keenan Dyer DPM Date:?2024 Generated for Tray henderson/Georgie/Ronalditting on:?10/10/2024 08:52 PM EDT History and Physical Notes * HPI (History of Present Illness) Category Sub-Category Detail Notes Category Not es Toe pain Location: B/L feet Duration: several years Course: worse Aggravated by: shoes, any pressure Treatments: change in shoes Skin problems Nature: scaling , redness Location: B/L Duration: several days Course: worse At Risk footcare Pt States Last PCP Visit: Date: 4 [facility] Patient accompanied by, Daughter, ALBIN, who serves as, Ict Security Specialist/Systems Navigator, and/who is physically present in exam room [...]
--- OUTSIDE RECORDS SUMMARY | 2024-10-10 20:53 | XMS_ITS | Encounter Summary ---
Author Organization [employer] Address [address] [facility] [address] [place] [address] Care Team Providers Care Regional Facilities Specialist Name Role Phone Valeri Lerner DO Primary Care Provider [phone] Batsheva Gomez PharmD Unavailable Encounter Details Date Type Department Care Team (Late st Contact Info) Description 08/03/2022 Orders Only [facility] [address] [place] [address] Valeri Renner LPN Social History Tobacco Use Types Packs/Day Years Used Date Smoking Tobacco: Never Assessed Comments Unknown Sex and Gender Information Value [...] Description 10/18/2024 11:00 AM EDT Office Visit [facility] [address] [place] [phone] Valeri Lerner DO [address] [place] [address] 10/25/2024 3:00 PM EDT Medication Management [facility] [address] [place] [address] CharyBatsheva landrum, PharmD [address] [place] [address] documented as of this encounter Procedures Procedure Name Priority Date/Time Associated Diagnosis Comments PROTHROMBIN TIME WHOLE BLD POC Routine 07/14/2023 11:07 AM EST ~PT, ~INR - ANTI COAG CLINIC Routine 07/14/2023 11:07 AM EST PROTHROMBIN TIME WHOLE BLD POC Routine 06/09/2023 11:34 AM EST ~PT, ~INR - ANTI COAG CLINIC Routine 06/09/2023 11:34 AM EST PROTHROMBIN TIME WHOLE BLD POC Routine 03/22/2023 11:23 AM EDT ~PT, ~INR - ANTI COAG CLINIC Routine 03/22/2023 11:23 AM EDT PROTHROMBIN TIME WHOLE BLD POC Routine 03/01/2023 11:31 AM EDT ~PT, ~INR - ANTI COAG CLINIC Routine 03/01/2023 11:31 AM EDT PROTHROMBIN TIME WHOLE BLD POC Routine 02/08/2023 11:20 AM EDT ~PT, ~INR - ANTI COAG CLINIC Routine 02/08/2023 11:20 AM EDT PROTHROMBIN TIME WHOLE BLD POC Routine 01/18/2023 2:41 PM EDT ~PT, ~INR - ANTI COAG CLINIC Routine 01/18/2023 2:41 PM EDT PROTHROMBIN TIME WHOLE BLD POC Routine 12/30/2022 11:46 AM EDT ~PT, ~INR - ANTI COAG CLINIC Routine 12/30/2022 11:46 AM EDT PROTHROMBIN TIME WHOLE BLD POC Routine 12/15/2022 10:26 AM EDT ~PT, ~INR - ANTI COAG CLINIC Routine 12/15/2022 10:26 AM EDT PROTHROMBIN TIME WHOLE BLD POC Routine 11/30/2022 11:01 AM EDT ~PT, ~INR - ANTI COAG CLINIC Routine 11/30/2022 11:01 AM EDT PROTHROMBIN TIME WHOLE BLD POC Routine 11/09/2022 10:29 AM EDT ~PT, ~INR - ANTI COAG CLINIC Routine 11/09/2022 10:29 AM EDT CBC WITH AUTO DIFFERENTIAL Routine 10/05/2022 10:02 AM EST PROTHROMBIN TIME-INR Routine 10/05/2022 10:02 AM EST BASIC METABOLIC PANEL Routine 10/05/2022 10:02 AM EST PROTHROMBIN TIME-INR Routine 10/03/2022 2:57 PM EST CBC WITH AUTO DIFFERENTIAL Routine 09/20/2022 11:35 AM EST TSH W/REFLEX TO FT4 Routine 09/20/2022 1 1:34 AM EST SARS COV2/INFLUENZA A/B AND RSV RNA QL NAAT Routine 09/20/2022 11:34 AM EST PROTHROMBIN TIME-INR Routine 09/20/2022 11:34 AM EST B TYPE NATRIURETIC PEPTIDE (BNP) Routine 09/20/2022 11:34 AM EST MAGNESIUM Routine 09/20/2022 11:34 AM EST LIPASE Routine 09/20/2022 11:34 AM EST LACTIC ACID Routine 09/20/2022 11:34 AM EST COMPREHENSIVE METABOLIC PANEL Routine 09/20/2022 11:34 AM EST PROTHROMBIN TIME WHOLE BLD POC Routine 09/12/2022 10:21 AM EST ~PT, ~INR - ANTI COAG CLINIC Routine 09/12/2022 10:21 AM EST PROTHROMBIN TIME WHOLE BLD POC Routine 08/29/2022 10:11 AM EST ~PT, ~INR - ANTI COAG CLINIC Routine 08/29/2022 10:11 AM EST PROTHROMBIN TIME WHOLE BLD POC Routine 08/18/2022 1:12 PM EST ~PT, ~INR - ANTI COAG CLINIC Routine 08/18/2022 1:12 PM EST documented in this encounter Results * (ABNORMAL) PROTHROMBIN TIME WHOLE BLD POC (07/14/2023 11:07 AM EST) Protime 26.1(H) 11.1 - 13.5 sec [facility] 07/14/2023 11:0 7 AM EST 07/14/2023 11:08 AM EST us Generic External Data Provider LAB BLOOD ORDERAB LES Final Result [facility] [address] [place] [phone] * (ABNORMAL) ~PT, ~INR - ANTI COAG CLINIC (07/14/2023 11:07 AM EST) Prothrombin Time INR 2.2(H) 0.9 - 1.1 [facility] Comment:METER #: [id number] TERNATIONAL NORMALIZED RATIO (INR) REFERENCE RANGES Reference RangeFor patients not on anticoagulant therapy: 0.9 - 1.1INR ranges for oral anticoagulanttherapy:For prevention and treatment of venous thrombosis and pulmonary embolism: 2.0 - 3.0For acute myocardial infarction with aspirin therapy: 2.0 - 3.0For acute myocardial infarction without aspirin therapy: 3.0 - 4.0For patients with mechanical prosthetic heart valves: 2.5 - 3.5 07/14/2023 11:0 7 AM EST 07/14/2023 11:08 AM EST Generic External Data Provider LAB BLOOD ORDERAB LES Final Result Performing Organization Address City/[facility] Co de Phone Number [facility] [address] [place] [address] [phone] * (ABNORMAL) PROTHROMBIN TIME WHOLE BLD POC (06/09/2023 11:34 AM EST) Protime 23.9(H) 11.1 - 13.5 sec [facility] 06/09/2023 11:3 4 AM EST 06/09/2023 11:36 AM EST Generic External Data Provider LAB BLOOD ORDERAB LES Final Result Performing Organization Address City/[facility] Co de Phone Number [facility] [address] [place] [phone] * (ABNORMAL) ~PT, ~INR - ANTI COAG CLINIC (06/09/2023 11:34 AM EST) Prothrombin Time INR 2.0(H) 0.9 - 1.1 [facility] Comment:METER #: [id number] TERNATIONAL NORMALIZED RATIO (INR) REFERENCE RANGES Reference RangeFor patients not on anticoagulant therapy: 0.9 - 1.1INR ranges for oral anticoagulanttherapy:For prevention and treatment of venous thrombosis and pulmonary embolism: 2.0 - 3.0For acute myocardial infarction with aspirin therapy: 2.0 - 3.0For acute myocardial infarction without aspirin therapy: 3.0 - 4.0For patients with mechanical prosthetic heart valves: 2.5 - 3.5 06/09/2023 11:3 4 AM EST 06/09/2023 11:36 AM EST Generic External Data Provider LAB BLOOD ORDERAB LES Final Result Performing Organization Address [facility] Co de Phone Number [facility] [address] [place] [phone] * (ABNORMAL) PROTHROMBIN TIME WHOLE BLD POC (03/22/2023 11:23 AM EDT) Protime 38.5(H) 11.1 - 13.5 sec [facility] 03/22/2023 11:2 3 AM EDT 03/22/2023 11:25 AM EDT Generic External Data Provider LAB BLOOD ORDERAB LES Final Result Performing Organization Address [facility] Co de Phone Number [facility] [address] [place] [phone] * (ABNORMAL) ~PT, ~INR - ANTI COAG CLINIC (03/22/2023 11:23 AM EDT) Prothrombin Time INR 3.2(H) 0.9 - 1.1 [facility] Comment:METER #: [id number] TERNATIONAL NORMALIZED RATIO (INR) REFERENCE RANGES Reference RangeFor patients not on anticoagulant therapy: 0.9 - 1.1INR ranges for oral anticoagulanttherapy:For prevention and treatment of venous thrombosis and pulmonary embolism: 2.0 - 3.0For acute myocardial infarction with aspirin therapy: 2.0 - 3.0For acute myocardial infarction without aspirin therapy: 3.0 - 4.0For patients with mechanical prosthetic heart valves: 2.5 - 3.5 03/22/2023 11:2 3 AM EDT 03/22/2023 11:25 AM EDT [facility] External Provider LAB BLO OD ORDERABLES Final Result Performing Organization Address [facility] de Phone Number [facility] [address] [place] [phone] * (ABNORMAL) PROTHROMBIN TIME WHOLE BLD POC (03/01/2023 11:31 AM EDT) Protime 26.8(H) 11.1 - 13.5 sec [facility] 03/01/2023 11:3 1 AM EDT 03/01/2023 11:33 AM EDT [facility] External Data Provider LAB BLOOD ORDERAB LES Final Result Performing Organization Address [facility] Phone Number [facility] [address] [place] [phone] * (ABNORMAL) ~PT, ~INR - ANTI COAG CLINIC (03/01/2023 11:31 AM EDT) Prothrombin Time INR 2.2(H) 0.9 - 1.1 [facility] Comment:METER #: [id number] TERNATIONAL NORMALIZED RATIO (INR) REFERENCE RANGES Reference RangeFor patients not on anticoagulant therapy: 0.9 - 1.1INR ranges for oral anticoagulanttherapy:For prevention and treatment of venous thrombosis and pulmonary embolism: 2.0 - 3.0For acute myocardial infarction with aspirin therapy: 2.0 - 3.0For acute myocardial infarction without aspirin therapy: 3.0 - 4.0For patients with mechanical prosthetic heart valves: 2.5 - 3.5 03/01/2023 11:3 1 AM EDT 03/01/2023 11:33 AM EDT [facility] External Provider LAB BLO OD ORDERABLES Final Result Performing Organization Address [facility] de Phone Number [facility] [address] [place] [phone] * (ABNORMAL) PROTHROMBIN TIME WHOLE BLD POC (02/08/2023 11:20 AM EDT) Protime 26.7(H) 11.1 - 13.5 sec [facility] 02/08/2023 11:2 0 AM EDT 02/08/2023 11:22 AM EDT [facility] External Provider LAB BLO OD ORDERABLES Final Result [facility] [address] [place] [phone] * (ABNORMAL) ~PT, ~INR - ANTI COAG CLINIC (02/08/2023 11:20 AM EDT) Prothrombin Time INR 2.2(H) 0.9 - 1.1 [facility] Comment:METER #: [id number] TERNATIONAL NORMALIZED RATIO (INR) REFERENCE RANGES Reference RangeFor patients not on anticoagulant therapy: 0.9 - 1.1INR ranges for oral anticoagulanttherapy:For prevention and treatment of venous thrombosis and pulmonary embolism: 2.0 - 3.0For acute myocardial infarction with aspirin therapy: 2.0 - 3.0For acute myocardial infarction without aspirin therapy: 3.0 - 4.0For patients with mechanical prosthetic heart valves: 2.5 - 3.5 02/08/2023 11:2 0 AM EDT 02/08/2023 11:22 AM EDT [facility] External Provider LAB BLO OD ORDERABLES Final Result [facility] [address] [place] [phone] * (ABNORMAL) PROTHROMBIN TIME WHOLE BLD POC (01/18/2023 2:41 PM EDT) Protime 25.7(H) 11.1 - 13.5 sec [facility] 01/18/2023 2:41 PM EDT 01/18/2023 2:43 PM EDT [facility] External Provider LAB BLO OD ORDERABLES Final Result Performing Organization Address [facility] Co de Phone Number [facility] [address] [place] [address] [phone] * (ABNORMAL) ~PT, ~INR - ANTI COAG CLINIC (01/18/2023 2:41 PM EDT) Prothrombin Time INR 2.1(H) 0.9 - 1.1 [facility] Comment:METER #: [id number] TERNATIONAL NORMALIZED RATIO (INR) REFERENCE RANGES Reference RangeFor patients not on anticoagulant therapy: 0.9 - 1.1INR ranges for oral anticoagulanttherapy:For prevention and treatment of venous thrombosis and pulmonary embolism: 2.0 - 3.0For acute myocardial infarction with aspirin therapy: 2.0 - 3.0For acute myocardial infarction without aspirin therapy: 3.0 - 4.0For patients with mechanical prosthetic heart valves: 2.5 - 3.5 01/18/2023 2:41 PM EDT 01/18/2023 2:43 PM EDT [facility] External Provider LAB BLO OD ORDERABLES Final Result Performing Organization Address [facility] Co de Phone Number [facility] [address] [place] [address] [phone] * (ABNORMAL) PROTHROMBIN TIME WHOLE BLD POC (12/30/2022 11:46 AM EDT) Protime 20.5(H) 11.1 - 13.5 sec [facility] 12/30/2022 11:4 6 AM EDT 12/30/2022 11:48 AM EDT [facility] External Provider LAB BLO OD ORDERABLES Final Result [facility] [address] [place] [phone] * (ABNORMAL) ~PT, ~INR - ANTI COAG CLINIC (12/30/2022 11:46 AM EDT) Prothrombin Time INR 1.7(H) 0.9 - 1.1 [facility] Comment:METER #: [id number] TERNATIONAL NORMALIZED RATIO (INR) REFERENCE RANGES Reference RangeFor patients not on anticoagulant therapy: 0.9 - 1.1INR ranges for oral anticoagulanttherapy:For prevention and treatment of venous thrombosis and pulmonary embolism: 2.0 - 3.0For acute myocardial infarction with aspirin therapy: 2.0 - 3.0For acute myocardial infarction without aspirin therapy: 3.0 - 4.0For patients with mechanical prosthetic heart valves: 2.5 - 3.5 12/30/2022 11:4 6 AM EDT 12/30/2022 11:48 AM EDT [facility] External Provider LAB BLO OD ORDERABLES Final Result Performing Organization Address City/[facility] Co de Phone Number [facility] [address] [place] [address] [phone] * (ABNORMAL) PROTHROMBIN TIME WHOLE BLD POC (12/15/2022 10:26 AM EDT) Protime 23.7(H) 11.1 - 13.5 sec [facility] 12/15/2022 10:2 6 AM EDT 12/15/2022 10:28 AM EDT [facility] External Provider LAB BLO OD ORDERABLES Final Result Performing Organization Address City/[facility] Co de Phone Number [facility] [address] [place] [phone] * (ABNORMAL) ~PT, ~INR - ANTI COAG CLINIC (12/15/2022 10:26 AM EDT) Prothrombin Time INR 2.0(H) 0.9 - 1.1 [facility] Comment:METER #: [id number] TERNATIONAL NORMALIZED RATIO (INR) REFERENCE RANGES Reference RangeFor patients not on anticoagulant therapy: 0.9 - 1.1INR ranges for oral anticoagulanttherapy:For prevention and treatment of venous thrombosis and pulmonary embolism: 2.0 - 3.0For acute myocardial infarction with aspirin therapy: 2.0 - 3.0For acute myocardial infarction without aspirin therapy: 3.0 - 4.0For patients with mechanical prosthetic heart valves: 2.5 - 3.5 12/15/2022 10:2 6 AM EDT 12/15/2022 10:28 AM EDT [facility] External Provider LAB BLO OD ORDERABLES Final Result Performing Organization Address [facility] de Phone Number [facility] [address] [place] [phone] * (ABNORMAL) PROTHROMBIN TIME WHOLE BLD POC (11/30/2022 11:01 AM EDT) Protime 21.3(H) 11.1 - 13.5 sec [facility] 11/30/2022 11:0 1 AM EDT 11/30/2022 11:04 AM EDT [facility] External Provider LAB BLO OD ORDERABLES Final Result Performing Organization Address City/[facility] de Phone Number [facility] [address] [place] [phone] * (ABNORMAL) ~PT, ~INR - ANTI COAG CLINIC (11/30/2022 11:01 AM EDT) Prothrombin Time INR 1.8(H) 0.9 - 1.1 [facility] Comment:METER #: [id number] TERNATIONAL NORMALIZED RATIO (INR) REFERENCE RANGES Reference RangeFor patients not on anticoagulant therapy: 0.9 - 1.1INR ranges for oral anticoagulanttherapy:For prevention and treatment of venous thrombosis and pulmonary embolism: 2.0 - 3.0For acute myocardial infarction with aspirin therapy: 2.0 - 3.0For acute myocardial infarction without aspirin therapy: 3.0 - 4.0For patients with mechanical prosthetic heart valves: 2.5 - 3.5 11/30/2022 11:0 1 AM EDT 11/30/2022 11:04 AM EDT [facility] External Provider LAB BLO OD ORDERABLES Final Result Performing Organization Address [facility] de Phone Number [facility] [address] [place] [phone] * (ABNORMAL) PROTHROMBIN TIME WHOLE BLD POC (11/09/2022 10:29 AM EDT) Protime 28.8(H) 11.1 - 13.5 sec [facility] 11/09/2022 10:2 9 AM EDT 11/09/2022 10:30 AM EDT [facility] External Provider LAB BLO OD ORDERABLES Final Result Performing Organization Address [facility] de Phone Number [facility] [address] [place] [phone] * (ABNORMAL) ~PT, ~INR - ANTI COAG CLINIC (11/09/2022 10:29 AM EDT) Prothrombin Time INR 2.4(H) 0.9 - 1.1 [facility] Comment:METER #: [id number] TERNATIONAL NORMALIZED RATIO (INR) REFERENCE RANGES Reference RangeFor patients not on anticoagulant therapy: 0.9 - 1.1INR ranges for oral anticoagulanttherapy:For prevention and treatment of venous thrombosis and pulmonary embolism: 2.0 - 3.0For acute myocardial infarction with aspirin therapy: 2.0 - 3.0For acute myocardial infarction without aspirin therapy: 3.0 - 4.0For patients with mechanical prosthetic heart valves: 2.5 - 3.5 11/09/2022 10:2 9 AM EDT 11/09/2022 10:30 AM EDT [facility] External Provider LAB BLO OD ORDERABLES Final Result Performing Organization Address City/[facility]/ZIP Co de Phone Number [facility] [address] [place] [phone] * (ABNORMAL) Basic Metabolic Panel (10/05/2022 10:02 AM EST) Sodium 146(H) 135 - 145 mmol/L [facility] Potassium 3.4 3.3 - 5.1 mmol/L [facility] Chloride 105 96 - 108 mmol/L [facility] Carbon Dioxide 29 22 - 29 mmol/L [facility] Anion Gap 15 12 - 20 [facility] Urea Nitrogen (BUN) 20(H) 9 - 16 mg/dL [facility] Creatinine, Serum 0.96 0.5 - 1.4 mg/dL [facility] Estimated Glomerular Filt Rate 55 [facility] Comment:NOTE: For -Am erican individuals, multiply the result by 1.210.Chronic Kidney Disease: Estimated GFR < 60 mL/min/[id number] Kidney Disease: Estimated GFR < 15 mL/min/1.73m2 Glucose 28(LL) 60 - 115 mg/dL [facility] Comment:Critical value for t est(GLUR): Results called to and readback by: TONI Guerra LPN Person calling: PATRICIA Date:10/05/22 Time: 1112 Calcium 9.3 8.4 - 10.2 mg/dL [facility] 10/05/2022 10:0 2 AM EST 10/05/2022 10:31 AM EST [facility] External Provider LAB BLO OD ORDERABLES Final Result Performing Organization Address City/[facility]/ZIP Co de Phone Number [facility] [address] [place] [phone] * (ABNORMAL) Prothrombin Time-INR (10/05/2022 10:02 AM EST) Prothrombin Time 72.7(H) 10.0 - 13.1 SEC [facility] INTERNATIONAL NORM RATIO 5.9(HH) 0.9 - 1.1 [facility] Comment:RESULTS OF INR VO D TO AND READ BACK BY ANTONI GRANT 10/05/22 AT 1104 BY CALI.INTERNATIONAL NORMALIZED RATIO (INR) REFERENCE RANGES Reference RangeFor patients not on anticoagulant therapy: 0.9 - 1.1INR ranges for oral anticoagulanttherapy:For prevention and treatment of venous thrombosis and pulmonary embolism: 2.0 - 3.0For acute myocardial infarction with aspirin therapy: 2.0 - 3.0For acute myocardial infarction without aspirin therapy: 3.0 - 4.0For patients with mechanical prosthetic heart valves: 2.5 - 3.5 10/05/2022 10:0 2 AM EST 10/05/2022 10:31 AM EST us [facility] External Provider LAB BLO OD ORDERABLES Final Result [facility] [address] [place] [address] [phone] * (ABNORMAL) CBC auto differential (10/05/2022 10:02 AM EST) Pathologist [facility] White Blood Count 10.8 4.8 - 10.8 X10*3/uL [facility] Red Blood Count 4.02(L) 4.20 - 5.50 X10*6/uL [facility] Hemoglobin 12.3 12.0 - 16.0 g/dl [facility] Hematocrit 39.4 37.0 - 47.0 % [facility] Mean Corpuscular Volume 98.0 80.0 - 98.0 fL [facility] Mean Corpuscular Hemoglobin 30.6 27.0 - 33.0 pg [facility] Mean Corpuscular HGB Conc 31.2 31.0 - 35.0 g/dl [facility] Red Cell Distribution Width 13.4 11.0 - 16.0 % [facility] Platelet Count 217 160 - 400 X10*3/uL [facility] Mean Platelet Volume 10.9 9.4 - 12.3 fL [facility] Neutrophils Percent Auto 58.6 45 - 73 % [facility] Imm Gran Pct Auto 0.4 0.0 - 0.4 % [facility] Lymphocytes Percent Auto 31.5 20 - 40 % [facility] Monocytes Percent Auto 5.8 2 - 11 % [facility] Eosinophils Percent Auto 3.1 0 - 4 % [facility] Basophils Percent Auto 0.6 0 - 2 % [facility] NRBC Pct Auto 0.0 0.0 - 0.2 /100WBC [facility] Neutrophils Absolute Auto 6.3 2.0 - 8.3 x10*3/uL [facility] Imm Gran Abs Auto 0.04(H) 0.00 - 0.03 X10*3/uL [facility] Lymphocytes Absolute Auto 3.4 1.2 - 4.9 X10*3/uL [facility] Monocytes Absolute Auto 0.6 0.1 - 1.2 X10*3/uL [facility] Eosinophils Absolute Auto 0.3 0.0 - 0.4 X10*3/uL [facility] Basophils Absolute Auto 0.1 0.0 - 0.2 X10*3/uL [facility] NRBC Abs Auto 0.000 0.0 - 0.012 X10*3/uL [facility] 10/05/2022 10:0 2 AM EST 10/05/2022 10:31 AM EST [facility] External Provider LAB BLO OD ORDERABLES Final Result [facility] [address] [place] [phone] * (ABNORMAL) Prothrombin Time-INR (10/03/2022 2:57 PM EST) Prothrombin Time 92.9(H) 10.0 - 13.1 SEC [facility] INTERNATIONAL NORM RATIO 7.4(HH) 0.9 - 1.1 [facility] Comment:RESULTS OF INR VO D TO AND READ BACK BY SINDY MCDONOUGH 10/03/22 AT 1538 BY ALEXANDRO.INTERNATIONAL NORMALIZED RATIO (INR) REFERENCE RANGES Reference RangeFor patients not on anticoagulant therapy: 0.9 - 1.1INR ranges for oral anticoagulanttherapy:For prevention and treatment of venous thrombosis and pulmonary embolism: 2.0 - 3.0For acute myocardial infarction with aspirin therapy: 2.0 - 3.0For acute myocardial infarction without aspirin therapy: 3.0 - 4.0For patients with mechanical prosthetic heart valves: 2.5 - 3.5 10/03/2022 2:57 PM EST 10/03/2022 3:20 PM EST [facility] External Provider LAB BLO OD ORDERABLES Final Result Performing Organization Address City/State/[facility] Co de Phone Number [facility] [address] [place] [address] [phone] * (ABNORMAL) CBC auto differential (09/20/2022 11:35 AM EST) [facility] White Blood Count 9.1 4.8 - 10.8 X10*3/uL [facility] Red Blood Count 4.06(L) 4.20 - 5.50 X10*6/uL [facility] Hemoglobin 12.6 12.0 - 16.0 g/dl [facility] Hematocrit 39.2 37.0 - 47.0 % [facility] Mean Corpuscular Volume 96.6 80.0 - 98.0 fL [facility] Mean Corpuscular Hemoglobin 31.0 27.0 - 33.0 pg [facility] Mean Corpuscular HGB Conc 32.1 31.0 - 35.0 g/dl [facility] Red Cell Distribution Width 13.7 11.0 - 16.0 % [facility] Platelet Count 127(L) 160 - 400 X10*3/uL [facility] Mean Platelet Volume 11.2 9.4 - 12.3 fL [facility] Neutrophils Percent Auto 85.6(H) 45 - 73 % [facility] Imm Gran Pct Auto 0.2 0.0 - 0.4 % [facility] Lymphocytes Percent Auto 9.6(L) 20 - 40 % [facility] Monocytes Percent Auto 4.4 2 - 11 % [facility] Eosinophils Percent Auto 0.0 0 - 4 % [facility] Basophils Percent Auto 0.2 0 - 2 % [facility] NRBC Pct Auto 0.0 0.0 - 0.2 /100WBC [facility] Neutrophils Absolute Auto 7.7 2.0 - 8.3 x10*3/uL [facility] Imm Gran Abs Auto 0.02 0.00 - 0.03 X10*3/uL [facility] Lymphocytes Absolute Auto 0.9(L) 1.2 - 4.9 X10*3/uL [facility] Monocytes Absolute Auto 0.4 0.1 - 1.2 X10*3/uL [facility] Eosinophils Absolute Auto 0.0 0.0 - 0.4 X10*3/uL [facility] Basophils Absolute Auto 0.0 0.0 - 0.2 X10*3/uL [facility] NRBC Abs Auto 0.000 0.0 - 0.012 X10*3/uL [facility] 09/20/2022 11:3 5 AM EST 09/20/2022 11:39 AM EST us [facility] External Provider LAB BLO OD ORDERABLES Final Result [facility] [address] [place] [address] [phone] * SARS-CoV-2 RNA, Influenza A/B, and RSV RNA, Ql NAAT (09/20/2022 11:34 AM EST) Influenza A PCR NEGATIVE Negative [facility] Influenza B PCR NEGATIVE Negative [facility] Resp Syncy Virus RNA Qual PCR NEGATIVE Negative [facility] SARS COV2 PCR NEGATIVE Negative [facility] SARS/Flu/RSV Note See Note [facility] Comment:All test results mus t be correlated with clinical findings.Negative results do not preclude SARS-CoV2, influenza Avirus, influenza B virus and/or RSV infectionand should not be used as the sole basis for treatment orother patient management decisions. Negative results must becombined with clinical observations, patient history, andepidemiological information.This test has not been evaluated for monitoring treatment ofinfection.This test has been authorized by the FDA under an EmergencyUse Authorization (EUA) for use by authorized laboratories.Testing performed on the [employer] GeneXpert utilizingreal-time RT-PCR.All SARS CoV2 and positive influenza A/B results arereported to [facility]. 09/20/2022 11:3 4 AM EST 09/20/2022 11:51 AM EST [facility] LAB MICROBIOLOGY - GENERAL ORDERABLES Final Result Performing Organization Address City/[facility]/ZIP Co de Phone Number [facility] [address] [place] [phone] * TSH W/Reflex to FT4 (09/20/2022 11:34 AM EST) Pathologist [facility] TSH reflex Free T4 0.75 0.32 - 4.0 uIU/mL [facility] 09/20/2022 11:3 4 AM EST 09/20/2022 11:39 AM EST [facility] External Provider LAB BLO OD ORDERABLES Final Result Performing Organization Address [facility]/ZIP Co de Phone Number [facility] [address] [place] [phone] * (ABNORMAL) B Type Natriuretic Peptide (BNP) (09/20/2022 11:34 AM EST) B Type Natriuretic Peptide 421(H) <100 pg/mL [facility] Comment:For those patients w ho are being treated with Natrecor(nesiritide, recombinant BNP), BNP testing should beperformed at least two hours post treatment in order toensure that only endogenous levels of BNP are detected. 09/20/2022 11:3 4 AM EST 09/20/2022 11:39 AM EST [facility] Provider LAB BLO OD ORDERABLES Final Result Performing Organization Address [facility] Co de Phone Number [facility] [address] [place] [phone] * Lipase (09/20/2022 11:34 AM EST) Lipase 55 8 - 78 U/L [facility] 09/20/2022 11:3 4 AM EST 09/20/2022 11:39 AM EST [facility] Provider LAB BLO OD ORDERABLES Final Result Performing Organization Address [facility] Co de Phone Number [facility] [address] [place] [address] [phone] * Magnesium (09/20/2022 11:34 AM EST) Magnesium 1.6 1.6 - 2.6 mg/dL [facility] 09/20/2022 11:3 4 AM EST 09/20/2022 11:39 AM EST [facility] LAB BLO OD ORDERABLES Final Result Performing Organization Address [facility] de Phone Number [facility] [address] [place] [address] [phone] * (ABNORMAL) Comprehensive Metabolic Panel (09/20/2022 11:34 AM EST) Sodium 137 135 - 145 mmol/L [facility] Potassium 3.8 3.3 - 5.1 mmol/L [facility] Chloride 99 96 - 108 mmol/L [facility] Carbon Dioxide 30(H) 22 - 29 mmol/L [facility] Anion Gap 12 12 - 20 [facility] Urea Nitrogen (BUN) 22(H) 9 - 16 mg/dL [facility] Creatinine, Serum 1.08 0.5 - 1.4 mg/dL [facility] Creatinine Clr Calc Pharmacy 40.4 [facility] Comment:Provided height and weight: 157.48 cm,99.4 kg.eGFR (calculated from the MDRD study equation) and eCrCl(calculated from the Cockcroft-Gault equation) are based ondifferent parameters and may not yield comparable results.If eCrCl result is absurd, please check patient'sheight/weight. Estimated Glomerular Filt Rate 48 [facility] Comment:NOTE: For -Am erican individuals, multiply the result by 1.210.Chronic Kidney Disease: Estimated GFR < 60 mL/min/1.57w7Xwupal Kidney Disease: Estimated GFR < 15 mL/min/1.73m2 Glucose 253(H) 60 - 115 mg/dL [facility] Calcium 9.1 8.4 - 10.2 mg/dL [facility] Bilirubin, Total 0.8 0.0 - 1.0 mg/dL [facility] Aspartate Amino Transferase 24 5 - 31 U/L [facility] Alanine Aminotransferase 21 0 - 31 U/L [facility] Total Protein 7.1 6.5 - 8.0 g/dL [facility] Albumin Level 3.7 3.5 - 5.0 g/dL [facility] Alkaline Phosphatase 105 39 - 117 U/L [facility] 09/20/2022 11:3 4 AM EST 09/20/2022 11:39 AM EST [facility] External Provider LAB BLO OD ORDERABLES Final Result [facility] [address] [place] [phone] * Lactic Acid (09/20/2022 11:34 AM EST) Lactic Acid 1.1 0.5 - 2.0 mmol/L [facility] 09/20/2022 11:3 4 AM EST 09/20/2022 11:39 AM EST [facility] LAB BLO OD ORDERABLES Final Result [facility] [address] [place] [phone] * (ABNORMAL) Prothrombin Time-INR (09/20/2022 11:34 AM EST) Prothrombin Time 18.3(H) 10.0 - 13.1 SEC [facility] INTERNATIONAL NORM RATIO 1.6(H) 0.9 - 1.1 [facility] Comment:INTERNATIONAL NORMAL IZED RATIO (INR) REFERENCE RANGES Reference RangeFor patients not on anticoagulant therapy: 0.9 - 1.1INR ranges for oral anticoagulanttherapy:For prevention and treatment of venous thrombosis and pulmonary embolism: 2.0 - 3.0For acute myocardial infarction with aspirin therapy: 2.0 - 3.0For acute myocardial infarction without aspirin therapy: 3.0 - 4.0For patients with mechanical prosthetic heart valves: 2.5 - 3.5 09/20/2022 11:3 4 AM EST 09/20/2022 11:39 AM EST [facility] LAB BLO OD ORDERABLES Final Result Performing Organization Address City/[facility]/ZIP Co de Phone Number [facility] [address] [place] [phone] * (ABNORMAL) PROTHROMBIN TIME WHOLE BLD POC (09/12/2022 10:21 AM EST) Protime 24.5(H) 11.1 - 13.5 sec [facility] 09/12/2022 10:2 1 AM EST 09/12/2022 10:22 AM EST [facility] LAB BLO OD ORDERABLES Final Result Performing Organization Address [facility] Co de Phone Number [facility] [address] [place] [phone] * (ABNORMAL) ~PT, ~INR - ANTI COAG CLINIC (09/12/2022 10:21 AM EST) Prothrombin Time INR 2.0(H) 0.9 - 1.1 [facility] Comment:METER #: [id number] TERNATIONAL NORMALIZED RATIO (INR) REFERENCE RANGES Reference RangeFor patients not on anticoagulant therapy: 0.9 - 1.1INR ranges for oral anticoagulanttherapy:For prevention and treatment of venous thrombosis and pulmonary embolism: 2.0 - 3.0For acute myocardial infarction with aspirin therapy: 2.0 - 3.0For acute myocardial infarction without aspirin therapy: 3.0 - 4.0For patients with mechanical prosthetic heart valves: 2.5 - 3.5 09/12/2022 10:2 1 AM EST 09/12/2022 10:22 AM EST [facility] LAB BLO OD ORDERABLES Final Result Performing Organization Address [facility] Co de Phone Number [facility] [address] [place] [address] [phone] * (ABNORMAL) PROTHROMBIN TIME WHOLE BLD POC (08/29/2022 10:11 AM EST) Protime 20.9(H) 11.1 - 13.5 sec [facility] 08/29/2022 10:1 1 AM EST 08/29/2022 10:15 AM EST [facility] LAB BLO OD ORDERABLES Final Result Performing Organization Address City/[facility]/ZIP Co de Phone Number [facility] [address] [place] [phone] * (ABNORMAL) ~PT, ~INR - ANTI COAG CLINIC (08/29/2022 10:11 AM EST) Prothrombin Time INR 1.7(H) 0.9 - 1.1 [facility] Comment:METER #: [id number] TERNATIONAL NORMALIZED RATIO (INR) REFERENCE RANGES Reference RangeFor patients not on anticoagulant therapy: 0.9 - 1.1INR ranges for oral anticoagulanttherapy:For prevention and treatment of venous thrombosis and pulmonary embolism: 2.0 - 3.0For acute myocardial infarction with aspirin therapy: 2.0 - 3.0For acute myocardial infarction without aspirin therapy: 3.0 - 4.0For patients with mechanical prosthetic heart valves: 2.5 - 3.5 08/29/2022 10:1 1 AM EST 08/29/2022 10:15 AM EST [facility] LAB BLO OD ORDERABLES Final Result Performing Organization Address City/[facility]/ZIP Co de Phone Number [facility] [address] [place] [phone] * (ABNORMAL) PROTHROMBIN TIME WHOLE BLD POC (08/18/2022 1:12 PM EST) Protime 22.1(H) 11.1 - 13.5 sec [facility] 08/18/2022 1:1 2 PM EST 08/18/2022 1:14 PM EST [facility] LAB BLO OD ORDERABLES Final Result [facility] [address] [place] [phone] * (ABNORMAL) ~PT, ~INR - ANTI COAG CLINIC (08/18/2022 1:12 PM EST) Prothrombin Time INR 1.8(H) 0.9 - 1.1 [facility] Comment:METER #: [id number] TERNATIONAL NORMALIZED RATIO (INR) REFERENCE RANGES Reference RangeFor patients not on anticoagulant therapy: 0.9 - 1.1INR ranges for oral anticoagulanttherapy:For prevention and treatment of venous thrombosis and pulmonary embolism: 2.0 - 3.0For acute myocardial infarction with aspirin therapy: 2.0 - 3.0For acute myocardial infarction without aspirin therapy: 3.0 - 4.0For patients with mechanical prosthetic heart valves: 2.5 - 3.5 08/18/2022 1:12 PM EST 08/18/2022 1:14 PM EST [facility] External Provider LAB BLO OD ORDERABLES Final Result [facility] [address] [place] [phone] documented in this encounter Visit Diagnoses Not on filedocumented in this encounter Care Teams Regional Facilities Specialist Relationship Specialty Start Date End Date Valeri Lerner DO [address] [place] [address] PCP - General Family Medicine 07/13/12 Batsheva Gomez PharmD [address] [place] [address] Pharmacist Internal Medicine 03/07/24 [employer] 12/08/23 documented as of this encounter
--- OUTSIDE RECORDS SUMMARY | 2024-10-10 20:53 | XMS_ITS | Encounter Summary ---
Author Organization [employer] Address [address] [place] [address] [address] [place] [address] Care Team Providers Care Oyster Preparer Name Role Phone Valeri Lerner DO Primary Care Provider Batsheva Gomez PharmD Unavailable [phone] Encounter Details Date Type Department Care Team (Latest Contact Info) Description 11/11/2020 Abstract [facility] CONVERSIONS Dental, Provider, DDS Social History Tobacco Use Types Packs/Day Years [...] Upcoming Encounters Date Type Department Care Team ( st Contact Info) Description 10/18/2024 11:00 AM EDT Office Visit [facility] MEDICINE [address] [place] [address] Valeri Lerner DO [address] [place] [address] 10/25/2024 3:00 PM EDT Medication Management [facility] MEDICINE [address] [place] [address] PuiaBatsheva PharmD [address] [place] [address] documented as of this encounter Visit Diagnoses Not on filedocumented in this encounter Care Teams Oyster Preparer Relationship Specialty Start Date End Date Valeri Lerner DO [address] [place] [phone] PCP - General Family Medicine 07/13/12 Batsheva Gomez PharmD [address] [place] [phone] Pharmacist Internal Medicine 03/07/24 [employer] 12/08/23 documented as of this encounter
--- OUTSIDE RECORDS SUMMARY | 2024-10-10 20:53 | XMS_ITS | Encounter Summary ---
Author Organization [employer] Address [address] [facility] [address] [place] [address] Care Team Providers Care Carbonation Equipment Tender Name Role Phone Valeri Lerner DO Primary Care Provider Batsheva Gomez PharmD Unavailable [phone] Encounter Details Date Type Department Care Team (Late st Contact Info) Description 09/16/2024 Orders Only [facility] External Provider, [facility] Social History Tobacco Use Types Packs/Day Years Used Date Smoking Tobacco: Never Passive Smoke Exposure: Never Smokeless Tobacco: Never Alcohol Use Standard Drinks/Week Comments Never 0 (1 standard drink = 0.6 oz pur e alcohol) Depression Answer Date Recorded Patient Health Questionnaire-9 Score 0 07/15/2024 Patient Health Questionnaire-9 Score 0 07/15/2024 Last PHQ-9: Questionnaire Data Not on file 1 09/15/2023 Housing Stability Answer Date Recorded What is your housing situation today? I have [employer] 11/21/[address] you li ve. Do you have problems with any of the following? None of the above 11/21/2023 Food Insecurity Answer Date Recorded Within the past 12 months, y ou worried that your food would run out before you got money to buy more: Never True 08/23/2023 Within the past 12 months,th e food you bought just didn't last and you didn't have enough money to get more: Never True Transportation Answer Date Recorded In the past 12 months, has l ack of transportation kept you from medical appts, meetings, work or from getting things needed for daily living? No 08/23/2023 Utilities Answer Date Recorded In the past 12 months, has t he electric, gas, oil or water company threatened to shut off services in your home? No 08/23/2023 Depression Answer Date Recorded Patient Health Questionnaire-2 Score 0 07/15/2024 Comments Unknown Sex and Gender Information Value [...] Description 10/18/2024 11:00 AM EDT Office Visit [facility] MEDICINE [address] [place] [phone] Valeri Lerner DO [address] [place] [phone] 10/25/2024 3:00 PM EDT Medication Management [facility] MEDICINE [address] [place] [phone] Puia, Batsheva, PharmD [address] [place] [phone] documented as of this encounter Goals Goal Patient Goal Type Associated Problems Recent Progress Patient-Stated? Author Patient will adhere to medication regimen General No Puia, Batsheva, PharmD Record your blood sugar as directed Result Component No Puia, Batsheva, PharmD Note: Resume CGM. Ensure sensor is scanned at least once every 8 hours to capture 24H data. Check BG manually, as directed. Hemoglobin A1c < 8 Result Component 7.8( 4 11:33 AM EST) No Puia, Batsheva, PharmD documented as of this encounter Procedures Procedure Name Priority Date/Time Associated Diagnosis Comments HIGH SENSITIVITY TROPONIN I Routine 09/16/2024 2:[address] ABDOMEN PELVIS WO CONTRAST Routine 09/16/2024 2:28 PM EST XR CHEST 1 VIEW Routine 09/16/2024 2:05 PM EST documented in this encounter Results * (ABNORMAL) High Sensitivity Troponin I (09/16/2024 2:46 PM EST) TROPONIN I HIGH SENSITIVITY 61.4(HH) <3.5 - 17.0 ng/L [facility] Comment:Critical value for t est(s): TROP Results called to and readback by: MIKAYLA Person calling: MELODIE Date: 09/16/24 Time:1553The [place] high sensitivity Troponin-I results should beused in conjunction with other diagnostic information suchas ECG, clinical observations and information, and patientsymptoms to aid in the diagnosis of [place]. 09/16/2024 2:46 PM EST 09/16/2024 2:49 PM EST us Generic External Data Provider LAB BLOOD ORDERAB LES Final Result [facility] [address] [place] [phone] * CT Abdomen Pelvis w/o Contrast (09/16/2024 2:28 PM EST) Anatomical Region Laterality Modality Body, Pelvis, Abdomen Computed T omography 09/16/2024 2:28 PM EST Narrative 09/16/2024 2:29 PM EST ? [facility] ?[address] ?[place] [address] ? CT Scan Report ? Signed ? Patient: Morgan Morgan,Nikky ?MR#: ?? [id number] ? : 1935 ?Acct:[id number] ? Age/Sex: 89 / F ?ADM Date: 02/17/25 ? Loc: HO.ED ? Attending Dr: ? Ordering Physician: Mary Anne Chavarria DO ?? Date of Service: 09/16/24 ?? Procedure(s): CT abdomen pelvis wo IV con ?? Accession Number(s): [id number] ? cc: Mary Anne Chavarria DO; Valeri Lerner DO ? Report Number: ?? [id number]: Total DLP = ??908.00 mGy-cm ? CLINICAL HISTORY: diffuse pain, fevers ? CT abdomen and pelvis without contrast ? Comparison: CT/SR - CT ABDOMEN PELVIS W IV CON - 07/02/24 14:07 EST ? Findings: ?? No consolidation or effusion. ? Severe pancreatic atrophy. Small right kidney cyst. Mild irregularity of ?? the liver cortex. Normal spleen size. Unremarkable adrenal glands. Small ?? gallstones are present within the gallbladder. ?? There is colonic diverticulosis without diverticulitis. No colitis or ?? bowel obstruction. Small umbilical hernia containing fat. ?? There is an IVC filter. ? There are vascular calcifications within the uterus. Otherwise ?? unremarkable pelvic contents. Normal appendix. ?? No acute fracture. ? IMPRESSION: ?? 1. Colonic diverticulosis without diverticulitis. ?? 2. Cholelithiasis. ? This document has been electronically signed by: Suzan Mcqueen MD on ?? 09/16/2024 14:28:39 ? Dictated By: ?Suzan Mcqueen MD ? Signed By: ?<Electronically signed by Suzan Mcqueen MD in OV> ? 09/16/24 1429 ? DD/ 1428 ? TD/TT: 09/16/24 1428 ? Security Systems Technician: ? Procedure Note Nam, Néstor - 09/16/[address] [place] [address] [address] Scan Report Signed Patient: Ariane GuevaraYasmani#: [id number] : 6Acct:[id number] Age/Sex: 89 / FADM Date: 09/16/24 Loc: HO.ED Attending Dr: Ordering Physician: Mary Anne Chavarria DO Date of Service: 09/16/24 Procedure(s): CT abdomen pelvis wo IV con Accession Number(s): [id number] cc: Mary Anne Chavarria DO; Valeri Lerner DO Report Number: [id number]: Total DLP = 908.00 mGy-cm CLINICAL HISTORY: diffuse pain, fevers CT abdomen and pelvis without contrast Comparison: CT/SR - CT ABDOMEN PELVIS W IV CON - 07/02/24 14:07 EST Findings: No consolidation or effusion. Severe pancreatic atrophy. Small right kidney cyst. Mild irregularity of the liver cortex. Normal spleen size. Unremarkable adrenal glands. Small gallstones are present within the gallbladder. There is colonic diverticulosis without diverticulitis. No colitis or bowel obstruction. Small umbilical hernia containing fat. There is an IVC filter. There are vascular calcifications within the uterus. Otherwise unremarkable pelvic contents. Normal appendix. No acute fracture. IMPRESSION: 1. Colonic diverticulosis without diverticulitis. 2. Cholelithiasis. This document has been electronically signed by: Suzan Mcqueen MD on 09/16/2024 14:28:39 Dictated By: Suzan Mcqueen MD Signed By: <Electronically signed by Suzan Mcqueen MD in OV> 09/16/24 1429 DD/ 1428 TD/TT: 09/16/24 1428 Security Systems Technician: [facility] External Provider IMG CT PROCEDURES Final Result * XR Chest 1 View (09/16/2024 2:05 PM EST) Anatomical Region Laterality Modality Chest Radiographic Isabella ging 09/16/2024 2:05 PM EST Narrative 09/16/2024 2:06 PM EST ? [facility] ?[address] ?[place] [address] ?XRay Report ? Signed ? Patient: Morgan Morgan,Nikky ?MR#: ?? [id number] ? : 1935 ?Acct:[id number] ? Age/Sex: 89 / F ?ADM Date: 02/17/25 ? Loc: HO.ED ? Attending Dr: ? Ordering Physician: Mary Anne Chavarria DO ?? Date of Service: 09/16/24 ?? Procedure(s): XR chest 1V ?? Accession Number(s): [id number] ? cc: Mary Anne Chavarria DO; Valeri Lerner DO ? CLINICAL HISTORY: cough, fever ? 1 view chest x-ray ? Comparison: CR/ID/SR - XR CHEST 2V - 03/29/24 13:20 EDT ? Findings: ?? Possible focus of airspace opacity within the retrocardiac region. The ?? right lung is clear. ?? Normal size heart. ?? Chronic appearing deformity of the right proximal humerus. No acute ?? fracture. ? IMPRESSION: ?? Possible focus of atelectasis or infiltrate within the retrocardiac region. ? This document has been electronically signed by: Suzan Mcqueen MD on ?? 09/16/2024 14:05:07 ? Dictated By: ?Suzan Mcqueen MD ? Signed By: ?<Electronically signed by Suzan Mcqueen MD in OV> ? 09/16/24 1406 ? DD/ 04 ? TD/TT: 09/16/241404 ? Security Systems Technician: ? Procedure Note Madhuzohaibngocadia, Image - 09/16/2024 [place] [address] XRay Report Signed Patient: Eddie MorganCassie#: [id number] : 1935cct:[id number] Age/Sex: 89 / FADM Date: 09/16/24 Loc: HO.ED Attending Dr: Ordering Physician: Mary Anne Chavarria DO Date of Service: 09/16/24 Procedure(s): XR chest 1V Accession Number(s): [id number] cc: Mary Anne Chavarria DO; Valeri Lerner DO CLINICAL HISTORY: cough, fever 1 view chest x-ray Comparison: CR/ID/SR - XR CHEST 2V - 03/29/24 13:20 EDT Findings: Possible focus of airspace opacity within the retrocardiac region. The right lung is clear. Normal size heart. Chronic appearing deformity of the right proximal humerus. No acute fracture. IMPRESSION: Possible focus of atelectasis or infiltrate within the retrocardiacregion. This document has been electronically signed by: Suzan Mcqueen MD on 09/16/2024 14:05:07 Dictated By: Suzan Mcqueen MD Signed By: <Electronically signed by Suzan Mcqueen MD in OV> 09/16/24 1406 DD/ 04 TD/TT: 02/17/25 1405 Security Systems Technician: [facility] External Provider IMG XR PROCEDURES Final Result documented in this encounter Visit Diagnoses Not on filedocumented in this encounter Additional Health Concerns Assessment Noted Time PHQ-9 Depression Total Score: 0 07/15/20 11:32 AM EST documented as of this encounter Care Teams Carbonation Equipment Tender Relationship Specialty Start Date End Date Valeri Lerner DO [address] [place] [address] PCP - General Family Medicine 07/13/12 Batsheva Gomez PharmD [address] [place] [address] Pharmacist Internal Medicine 03/07/24 [employer] 12/08/23 documented as of this encounter
--- OUTSIDE RECORDS SUMMARY | 2024-10-10 20:53 | XMS_ITS | Encounter Summary ---
Author Organization [employer] Address [address] [facility] 7t [place] [address] Care Team Providers Care Production Material Coordinator Name Role Phone Valeri Lerner DO Primary Care Provider Batsheva Gomez PharmD Unavailable Reason for Visit * Reason Onset Date Comments Nurse Triage 01/18/2024 Encounter Details Date Type Department Care Team (Late st Contact Info) Description 01/18/2024 Telephone [facility] [address] [place], [place] [phone] Valeri Lerner DO [address] [place], [place] [phone] Nurse Triage Social History Tobacco Use Types Packs/Day Years Used Date Smoking Tobacco: Never Passive Smoke Exposure: Never Smokeless Tobacco: Never Alcohol Use Standard Drinks/Week Comments Never 0 (1 standard drink = 0.6 oz pur e alcohol) Depression Answer Date Recorded Patient Health Questionnaire-9 Score 2 08/23/2023 Patient Health Questionnaire-9 Score 2 08/23/2023 Last PHQ-9: Questionnaire Data Not on file 0 08/23/2023 Housing Stability Answer Date Recorded What is [...] the past 12 months, has t he [email or web address], gas, oil or water company threatened to shut off services in your home? No 08/23/2023 Depression Answer Date Recorded Patient Health Questionnaire-2 Score 1 08/23/2023 Comments Unknown Sex and Gender Information Value Date Recorded Sex Assigned at Female 05/30/2022 10:14 AM EDT Legal Sex Female 10:14 AM EDT Gender Identity Choose not to disclose 10:14 AM EDT Sexual Orientation Straight 05/30/2022 10 :14 AM EDT documented as of this encounter Miscellaneous Notes * Telephone Encounter - Casi Day, NIRALI - 01/18/2024 11:25 AM EDT Triage call returned to Artemio with [facility]. Patient has had complaints of stomach discomfort and off and on pain in abdomen that she relates to use of Trulicity. Discomfort starts after weekly injectionand patient does not want to take it any longer. Home phone number obtained for Daughter Johnna and call placed to patient at this time. Triage call placed to Daughter who reports that patient does not want to continue Trulicity as ordered. Stomach upset with nausea and discomfort confirmed. Daughter Johnna reports that it is noted to be worse after foods with grease.No fever no postural changes no vomiting. Patient is pending a colono scopy in January with due to abnormal findings on abdominal CT scan . Disposition reviewed and Daughter in agreement with plan. ASK/ 01/26/24 1215pm for evaluation. Team tasked to follow with PCP in regards to use of Trulicity pending evaluation. Please updater Artemio with VNA on any medication changes [phone]. Daughter made aware of home care recommendations, reasons to call back and symptoms that require immediate evaluation in UC or ER. Daughter verbalized understanding and agrees. Multiple (2) protocols were used on this call. Disposition for Call: See in Office or Video Visit Today or Tomorrow Protocol Used: Abdominal Pain - Female (Adult) Protocol-Based Disposition: See in Office or Video Visit Today or Tomorrow Positive Triage Question: * Mild pain (e.g., does not interfere with normal activities) and pain comes and goes (cramps) lasts > 48 hours (Exception: This same abdominal pain is a chronic symptom recurrent or ongoing AND present > 4 weeks.) * All higher-acuity triage questions were negative Care Advice Discussed: * Rest * Drink Clear Fluids * Diet * Reasons To Call Back - Severe pain lasts over 1 hour - Constant pain lasts over 2 hours - Intermittent pains (e.g., comes and goes, cramps) lasts over 48 hours - You become worse Protocol Used: Medication Question Call (Adult) Protocol-Based Disposition: Callback or Video Visit by PCP Today Override (Final) Disposition: Discuss with PCP and Callback by Nurse Today Override Reason: Nurse judgment Video visit not offered Positive Triage Question: * Caller has NON-URGENT medicine question about med that PCP or specialist prescribed and triager unable to answer question * All higher-acuity triage questions were negative * Telephone Encounter - Yoly Kemp - 01/18/2024 11:19 AM EDT Symptom: Abdominal Pain - Female - Not Outcome: Schedule an urgent appointment (within 4 hours) or talk to a nurse or provider soon Reason: Started within the past 3 days The caller accepted this outcome Please contact pt at [phone] documented in this encounter Plan of Treatment Upcoming Encounters Date Type Department Care Team ([facility] st Contact Info) Description 10/18/2024 11:00 AM EDT Office Visit [facility] [address] [place] [address] Valeri Lerner DO [address] [facility] [place] [address] 10/25/2024 3:00 PM EDT Medication Management [facility] [address] [facility] [place] [address] Batsheva Gomez PharmD [address] [facility] [place] [address] documented as of this encounter Visit Diagnoses Not on filedocumented in this encounter Additional Health Concerns Assessment Noted Time PHQ-9 Depression Total Score: 2 08/23/19 11:01 AM EST documented as of this encounter Care Teams Production Material Coordinator Relationship Specialty Start Date End Date Valeri Lerner DO [facility] [place] [address] PCP - General Family Medicine 07/13/12 Batsheva Gomez PharmD [facility] [place] [address] Pharmacist Internal Medicine 03/07/24 [facility] 12/08/23 documented as of this encounter
--- OUTSIDE RECORDS SUMMARY | 2024-10-10 20:53 | XMS_ITS | Encounter Summary ---
Author Organization [employer] Address 75 [facility] 7t [place] [address] Care Team Providers Care School Business Administrator Name Role Phone Valeri Lerner DO Primary Care Provider Batsheva Gomez PharmD Unavailable [phone] Encounter Details Date Type Department Care Team (Latest Contact Info) Description 2024 Travel Social History Tobacco Use Types Packs/Day Years [...] Description 10/18/2024 11:00 AM EDT Office Visit [facility] [address] [place] [address] Valeri Lerner DO [address] [place] [address] 10/25/2024 3:00 PM EDT Medication Management [facility] [address] [place] [address] Batsheva Gomez, PharmD [address] [place] [address] documented as of this encounter Goals Goal Patient Goal Type Associated Problems Recent Progress Patient-Stated? Author Patient will adhere to medication regimen General No CharyiaBatsheva, PharmD Record your blood sugar as directed Result Component No Julito Gomezyssa, PharmD Note: Resume CGM. Ensure sensor is scanned at least once every 8 hours to capture 24H data. Check BG manually, as directed. Hemoglobin A1c < 8 Result Component 7.8( 11:33 AM EST) No CharyiaJulitoBatsheva, PharmD documented as of this encounter Visit Diagnoses Not on filedocumented in this encounter Additional Health Concerns Assessment Noted Time PHQ-9 Depression Total Score: 0 07/15/20 24 11:32 AM EST documented as of this encounter Care Teams School Business Administrator Relationship Specialty Start Date End Date Valeri Lerner DO [address] [place] [address] PCP - General Family Medicine 07/13/12 Batsheva Gomez PharmD 230 [place] [address] Pharmacist Internal Medicine 03/07/24 [employer] 12/08/23 documented as of this encounter
--- OUTSIDE RECORDS SUMMARY | 2024-10-10 20:53 | XMS_ITS | Patient Health Record ---
Author Organization [facility] Address [address] [facility] [place] [address] Care Team Providers Care Heel Molder Name Role Phone Valeri Lerner Primary Care Provider Keenan Lowery Unavailable [phone] Allergies Allergen (clinical drug ingredient) Drug/Non Drug [...] Advair Diskus Active Levothyroxine Sodium Active Ipratropium [facility] Active Sucralfate Active Vitamin D3 Active Insulin [...] Problem Acquired hammer toe of right foot (9123552491346 105) Other hammer toe(s) (acquired), right foot (M20.41) Active confirmed Problem Type 2 diabetes mellitus with peripheral angiopathy (035565572) Type 2 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) Active confirmed Q7(A), Q8(2B), Q9(1B,2C) Problem Acquired hammer toe of left foot (4702882883586 103) Other hammer toe(s) (acquired), left foot (M20.42) Active confirmed Vital Signs Blood pressure diastolic 70 mm Hg 08/16/2024 Height 5 ft 5 in in 08/16/2024 Blood pressure systolic 130 mm Hg 08/16/2024 Weight 230 lbs 08/16/2024 BMI 38.27 kg/m2 08/16/2024 Procedures Procedure Date Ordered Date Performed Result Body Sit e 74350-FHQTHYC NAIL, 6 OR MORE 08/16/2024 N/A 10015-XJNR SKIN LESIONS, OVER 4 08/16/2024 N/A Encounters Encounter Location Date Provider Diagnosis [address] [address] 08/16/2024 Keenan Dyer Type 2 diabetes mellitus with diabetic peripheral angiopathy without gangrene E11.51 ; Tinea unguium B35.1 ; Pain in right toe(s) M79.674 ; Pain in left toe(s) M79.675 ; Other hammer toe(s) (acquired), left foot M20.42 ; Other hammer toe(s) (acquired), right foot M20.41 and Tinea pedis of both feet B35.[address] [address] 04/23/2024 Keenan Dyer [address] [address] 05/16/2024 Keenan Dyer Assessments Encounter Date Diagnosis [...] Treatment Pending Test Test Name Order Date 09697-BMVRWNG NAIL, 6 OR MORE 10/27/2016 78312-ISZJZRK NAIL, 6 OR MORE 05/09/2017 26966-ZVSCBRI NAIL, 6 OR MORE 08/21/2017 67339-SURVLWF NAIL, 6 OR MORE 01/26/2017 22290-VXELLCO NAIL, 6 OR MORE 01/29/2018 24832-QHMLFWZ NAIL, 6 OR MORE 07/09/2018 73015-ZXTLMLL NAIL, 6 OR MORE 11/22/2018 22444-BZHOXQJ NAIL, 6 OR MORE 08/16/2024 56423-YJFFSIF NAIL, 1-5 12/21/2015 89984-JAGWNJS NAIL, 1-5 05/30/2016 91072-BDOWHZY NAIL, 1-5 02/18/2015 99732-VWTFTVV NAIL, 1-5 05/27/2015 99566-UTEEBJE NAIL, 1-5 09/23/2015 69411-Cbmynupj Plate 02/18/2015 28500-Xknbozff Plate 05/30/2016 40941-Dmgymjjq Plate 12/21/2015 05178-Ufbejqiz Plate 09/23/2015 53592-Cxqksgxy Plate 10/27/2016 63853-Nxcvqicp Plate 01/07/2019 58241-GRLT SKIN LESIONS, OVER 4 07/09/20 18 68182-XYFI SKIN LESIONS, OVER 4 05/09/20 17 63152-FSBL SKIN LESIONS, OVER 4 08/16/19 25 23163-YDFS SKIN LESIONS, OVER 4 11/23/19 19 33434-HFUA SKIN LESIONS, OVER 4 10/28/19 17 25304-AIKO SKIN LESIONS, OVER 4 01/27/20 17 36668-ISJO SKIN LESIONS, OVER 4 08/21/19 18 71567-YQRA SKIN LESIONS, OVER 4 01/30/20 18 58132-UTUK SKIN LESIONS, 2 TO 4 02/19/20 15 17608-ZYAT SKIN LESIONS, 2 TO 4 05/27/20 15 38625-GUVG SKIN LESIONS, 2 TO 4 09/23/19 16 50548-CXFJ SKIN LESIONS, 2 TO 4 12/21/19 16 39416-CMEA SKIN LESIONS, 2 TO 4 05/30/20 16 29560-Zbtz. Subungual Hematoma 9 L9748-XFMWQEOJ DYSTROPHIC NAILS ANY # S4068-DSKKLRWY DYSTROPHIC NAILS ANY # D4507-QEVEWYBL DYSTROPHIC NAILS ANY # Q4165-TWNYGIWP DYSTROPHIC NAILS ANY # Next Appt Details Provider Name:Keenan Dyer , 12/13/2024 12:45:00 PM, [address] [place], [address], Insurance Providers Payer Name Payer Address Payer Phone Subscriber Number Group Number Insured Name Patient Relationship to Insured Coverage Start Date Coverage End Date [employer] Medicare-309 [id number] [address] [place] [address] [id number] Nikky Morgan Self - patient is the insured Medical (General) History Medical History History ICD Code Anxiety Arthritis asthma Back,Hip,and Knee pain Broken bones Diabetic Stroke Thyroid disorder blood clots Gout Heart disease Surgical History Surgery Date(Month/Year) cataract surgery left eye 11/09/2018 Hospitalization History Reason Date(Month/Year) [facility] for a cough 2018
--- OUTSIDE RECORDS SUMMARY | 2024-10-10 20:53 | XMS_ITS | Encounter Summary ---
Author Organization [employer] Address [address] [facility] 7t [place] [address] Care Team Providers Care Film Spooler Name Role Phone Valeri Lerner DO Primary Care Provider Batsheva Gomez PharmD Unavailable Encounter Details Date Type Department Care Team (Late st Contact Info) Description 10/05/2022 Telephone [facility]INE [address] [place], [place] [phone] Valeri Lerner DO 230 [place], [place] [phone] Social History Tobacco Use Types Packs/Day Years [...] Telephone Encounter - Casi Day LPN - 10/05/2022 11:47 AM EST Critical Result Line call received from Lamar at [facility] Antico. INR 5.9 Glucose 28 as reported earlier. Warfarin on hold today with a recheck to be done tomorrow. Lamar concerned that patient BS documented at 28 and wants to know what patient plan is. documented in this encounter Plan of Treatment Upcoming Encounters Date Type Department Care Team (Late st Contact Info) Description 10/18/2024 11:00 AM EDT Office Visit [facility] MEDICINE [address] [place] [address] Valeri Lerner DO [address] [place] [address] 10/25/2024 3:00 PM EDT Medication Management [address] [address] Batsheva Gomez, PharmD [address] [place] [address] documented as of this encounter Visit Diagnoses Not on filedocumented in this encounter Care Teams Film Spooler Relationship Specialty Start Date End Date Valeri Lerner DO [address] [place] [address] PCP - General Family Medicine 07/13/12 Batsheva Gomez, PharmD [address] [place] [address] Pharmacist Internal Medicine 03/07/24 [employer] 12/08/23 documented as of this encounter
--- OUTSIDE RECORDS SUMMARY | 2024-10-10 20:53 | XMS_ITS | Encounter Summary ---
Author Organization [employer] Address [address] [facility] 7t [place] [address] Care Team Providers Care Policy Change Clerk Name Role Phone Valeri Lerner DO Primary Care Provider Batsheva Gomez PharmD Unavailable [phone] Encounter Details Date Type Department Care Team (Latest Contact Info) Description 09/25/2024 Anticoagulation - Warfarin Visit [facility]ICINE [address] [place], [place] [phone] Michaela Rollins, SHIRLEY [address] [place] [address] Paroxysmal atrial fibrillation (CMS/HCC) Social History Tobacco Use Types Packs/Day Years [...] AM EDT documented as of this encounter Progress Notes * Michaela Rollins RN - 09/25/2024 3:08 PM EST [facility] Artemio called to report pt's INR today as 2.1. Pt's INR discussed w/ PCP (Dr. Lerner), drawn by pt's VNA (Artemio VALERIO). INR today is 2.1 Plan is 4mg EVERY DAY repeat INR on Monday10/01/2024. RN informed [facility] Artemio [phone] of above plan and VNA repeated orders back to RN. VNA will report INR on 10/01/24 to [facility]. documented in this encounter Plan of Treatment Upcoming Encounters Date Type Department Care Team (Late st Contact Info) Description 10/18/2024 11:00 AM EDT Office Visit [facility] MED[facility]INE [address] [place] [address] Valeri Lerner DO [address] [place] [address] 10/25/2024 3:00 PM EDT Medication Management [facility] [address] [place] [address] Batsheva Gomez PharmD [address] [place] [address] documented as of this encounter Goals Goal Patient Goal Type Associated Problems Recent Progress Patient-Stated? Author Patient will adhere to medication regimen General No Batsheva Gomez, PharmD Record your blood sugar as directed Result Component No Batsheva Gomez PharmD Note: Resume CGM. Ensure sensor is scanned at least once every 8 hours to capture 24H data. Check BG manually, as directed. Hemoglobin A1c < 8 Result Component 7.8( 4 11:33 AM EST) No Batsheva Gomez PharmD documented as of this encounter Procedures Procedure Name Priority Date/Time Associated Diagnosis Comments PROTHROMBIN TIME-INR Routine 09/25/2024 documented in this encounter Results * (ABNORMAL) Prothrombin Time-INR (09/25/2024) INR 2.10(A) 2.00 - 3.00 EXTERNAL LAB Protime EXTERNAL LAB Blood Venous blood specimen / Unknown 09/25/2024 Valeri Lerner DO LAB BLOOD ORDERABLES Final R esult EXTERNAL LAB documented in this encounter Visit Diagnoses Diagnosis Paroxysmal atrial fibrillation (CMS/HCC) Atrial fibrillation documented in this encounter Additional Health Concerns Assessment Noted Time PHQ-9 Depression Total Score: 0 07/15/20 24 11:32 AM EST documented as of this encounter Care Teams Policy Change Clerk Relationship Specialty Start Date End Date Valeri Lerner DO [address] [place], [place] [phone] PCP - General Family Medicine 07/13/12 Batsheva Gomez, PharmD [address] [place], [place] [phone] Pharmacist Internal Medicine 03/07/24 [employer] 12/08/23 documented as of this encounter
--- OUTSIDE RECORDS SUMMARY | 2024-10-10 20:53 | XMS_ITS | Encounter Summary ---
Author Organization [employer] Address [address] [facility] 7t [place] [address] Care Team Providers Care Insulation Applicator Name Role Phone Valeri Lerner DO Primary Care Provider [phone] Batsheva Gomez PharmD Unavailable [phone] Encounter Details Date Type Department Care Team (Latest Contact Info) Description 08/27/2024 Anticoagulation - Warfarin Visit [facility] [address] [place], [place] [phone] Michaela Rollins, SHIRLEY [address] [place] [address] Paroxysmal atrial fibrillation (CMS/HCC) Social History Tobacco [...] Progress Notes * Michaela Rollins RN - 08/27/2024 2:04 PM EST [facility] Marco called to report pt's INR today as 3.3. Pt's INR discussed w/ PCP (Dr. Lerner), drawnby pt's VNA (Marco JOYCE). INR today is 3.3 Plan is 2mg today (08/27/24) and 4mg ALL OTHER DAYS (Monday08/28/24, 08/29/24, Monday08/30/24, Monday08/31/24, Monday09/01/24, Monday09/02/24) and repeat INR on Monday09/03/2024. RN informed VNA Artemio [phone] of above plan and VNA repeated orders back to RN. VNA will report INR on 09/03/24 to [facility]. documented in this encounter Plan of Treatment Upcoming Encounters Date Type Department Care Team (Late st Contact Info) Description 10/18/2024 11:00 AM EDT Office Visit [facility] [address] [place] [address] Valeri Lerner DO [address] [place] [address] 10/25/2024 3:00 PM EDT Medication Management [facility] [address] [place] [address] Batsheva Gomez PharmD [address] [place] [address] documented as of this encounter Goals Goal [...] Component 7.8( 4 11:33 AM EST) No Julito Gomezyssa, PharmD documented as of this encounter Procedures Procedure Name Priority Date/Time Associated Diagnosis Comments PROTHROMBIN TIME-INR Routine 08/27/2024 documented in this encounter Results * (ABNORMAL) Prothrombin Time-INR (08/27/2024) INR 3.30(A) 2.00 - 3.00 EXTERNAL LAB Protime EXTERNAL LAB Blood Venous blood specimen / Unknown 08/27/2024 Valeri Lerner DO LAB BLOOD ORDERABLES Final R esult EXTERNAL LAB documented in this encounter Visit Diagnoses Diagnosis Paroxysmal atrial fibrillation (CMS/HCC) Atrial fibrillation documented in this encounter Additional Health Concerns Assessment Noted Time PHQ-9 Depression Total Score: 0 07/15/20 24 11:32 AM EST documented as of this encounter Care Teams Insulation Applicator Relationship Specialty Start Date End Date Valeri Lerner DO [address] [place] [address] PCP - General Family Medicine 07/13/12 Batsheva Gomez PharmD [address] [place] [address] Pharmacist Internal Medicine 03/07/24 [employer] 12/08/23 documented as of this encounter
--- OUTSIDE RECORDS SUMMARY | 2024-10-10 20:53 | XMS_ITS | Encounter Summary ---
Author Organization [employer] Address [address] [facility] 7t [place] [address] Care Team Providers Care Hog Counter Name Role Phone Valeri Lerner DO Primary Care Provider Batsheva Gomez PharmD Unavailable Reason for Visit * Reason Onset Date Comments Recall Appt. 09/12/2024 Encounter Details Date Type Department Care Team (Late st Contact Info) Description 09/12/2024 Telephone [facility] MEDICINE [address] [place], [place] [phone] Valeri Lerner DO [address] [place], [place] [phone] Recall Appt. Social History Tobacco Use Types Packs/Day Years [...] the past 12 months, has t he [email or web address], gas, oil or water company threatened to [...] encounter Miscellaneous Notes * Telephone Encounter - Sena Pyle MA - 09/12/2024 8:21 AM EST Spoke with patient daughter schedule follow up DM 10/18/24 at 11am. Mailed appt. Letter. documented in this encounter Plan of Treatment Upcoming Encounters Date Type Department Care Team (Late st Contact Info) Description 10/18/2024 11:00 AM EDT Office Visit [facility] MEDICINE [address] [place] [address] Valeri Lerner DO [address] [place] [address] 10/25/2024 3:00 PM EDT Medication Management [facility] [address] [place] [address] Batsheva Gomez, CecilyD [address] [place] [address] documented as of this encounter Goals Goal Patient Goal Type Associated Problems Recent Progress Patient-Stated? Author Patient will adhere to medication regimen General No Batsheva Gomez PharmD Record your blood sugar as directed Result Component No Batsheva Gomez PharmD Note: Resume CGM. Ensure sensor is scanned at least once every 8 hours to capture 24H data. Check BG manually, as directed. Hemoglobin A1c < 8 Result Component 7.8( 4 11:33 AM EST) No Batsheva Gomez PharmD documented as of this encounter Visit Diagnoses Not on filedocumented in this encounter Additional Health Concerns Assessment Noted Time PHQ-9 Depression Total Score: 0 07/15/20 24 11:32 AM EST documented as of this encounter Care Teams Hog Counter Relationship Specialty Start Date End Date Valeri Lerner DO [address] [place] [address] PCP - General Family Medicine 07/13/12 Batsheva Gomez PharmD [address] [place] [address] Pharmacist Internal Medicine 03/07/24 [employer] 12/08/23 documented as of this encounter
--- OUTSIDE RECORDS SUMMARY | 2024-10-10 20:53 | XMS_ITS | Encounter Summary ---
Author Organization [employer] Address [address] [facility] 7t [place] [address] Care Team Providers Care Prop Attendant Name Role Phone Valeri Lerner DO Primary Care Provider Batsheva Gomez PharmD Unavailable [phone] Encounter Details Date Type Department Care Team (Latest Contact Info) Description 09/23/2024 Anticoagulation - Warfarin Visit [facility] [address] [place], [place] [phone] Michaela Rollins, SHIRLEY [address] [place] [address] Paroxysmal atrial fibrillation (CMS/HCC) Social History Tobacco [...] Progress Notes * Michaela Rollins RN - 09/23/2024 1:38 PM EST Patient was at [facility] 09/16-09/21 for influenza type A, hypoxia and hypomagnesemia. Patient was receiving coumadin 4mg daily during hospitalization. Patient returned home on 09/21/24 and [facility] was informed on the evening of 09/22/24. [facility]NA was unable to see patient on 09/22/24 d/t timing of notification. [facility]NA saw patient today 09/23/24 and was advised to obtain INR by this RN this AM (see TC encounter). LEYLA Ulloa called and reports pt's INR today is 1.9. Pt's INR discussed w/ Dr. Matos, drawn by pt's V[facility] ([facility]). INR today is 1.9 Plan is 4mg today (09/23/24) and 4mg tomorrow (09/24/24) and repeat INR on Monday09/25/2024. RN informed LEYLA Ulloa [phone] of above plan and VNA repeated orders back to RN. VNA will report INR on 09/25/24 to [facility]. Previous coumadin dosing from prior INR to today 2/24/25 was as follows: 09/10/24-2mg 09/11/24-4mg 09/12/24-4mg 09/13/24-4mg 09/14/24-4mg 09/15/24-4mg 09/16/24-4mg 09/17/24-4mg 09/18/24-4mg 09/19/24-4mg 09/20/24-4mg 09/21/24-4mg 09/22/24-NONE documented in this encounter Plan of Treatment Upcoming Encounters Date Type Department Care Team (Late st Contact Info) Description 10/18/2024 11:00 AM EDT Office Visit [address] [phone] Valeri Lerner DO [address] [place] [address] 10/25/2024 3:00 PM EDT Medication Management [facility] [address] [place] [address] Puia, Batsheva, PharmD [address] [place], [place] [phone] documented as of this encounter Goals Goal [...] Result Component 7.8( 11:33 AM EST) No Puia, Batsheva, PharmD documented as of this encounter Procedures Procedure Name Priority Date/Time Associated Diagnosis Comments PROTHROMBIN TIME-INR Routine 09/23/2024 documented in this encounter Results * (ABNORMAL) Prothrombin Time-INR (09/23/2024) INR 1.90(A) 2.00 - 3.00 EXTERNAL LAB Protime EXTERNAL LAB Blood Venous blood specimen / Unknown 09/23/2024 us Laquita Matos MD LAB BLOOD ORDERABLES Final Res ult EXTERNAL LAB documented in this encounter Visit Diagnoses Diagnosis Paroxysmal atrial fibrillation (CMS/HCC) Atrial fibrillation documented in this encounter Additional Health Concerns Assessment Noted Time PHQ-9 Depression Total Score: 0 07/15/20 24 11:32 AM EST documented as of this encounter Care Teams Prop Attendant Relationship Specialty Start Date End Date Valeri Lerner DO [address] [place] [address] PCP - General Family Medicine 07/13/12 Batsheva Gomez PharmD [address] [place] [address] Pharmacist Internal Medicine 03/07/24 [employer] 12/08/23 documented as of this encounter
--- OUTSIDE RECORDS SUMMARY | 2024-10-10 20:53 | XMS_ITS | Encounter Summary ---
Author Organization [employer] Address [address] [facility] 7t [place] [address] Care Team Providers Care Electrical Mechanical Technician Name Role Phone Valeri Lerner DO Primary Care Provider Batsheva Gomez PharmD Unavailable [phone] Reason for Visit * Reason Onset Date Comments FYI 10/08/2024 Encounter Details Date Type Department Care Team (Late st Contact Info) Description 10/08/2024 Telephone [facility] [address] [place], [place] [phone] Valeri Lerner DO [address] [place], [place] [phone] Social History Tobacco Use Types Packs/Day Years [...] the past 12 months, has t he [employer], gas, oil or water [employer] threatened to shut off services in your [...] encounter Miscellaneous Notes * Telephone Encounter - Ofelia Mejia - 10/08/2024 1:17 PM EDT Tc from [facility] ([facility]) informing pt iron level 3.0. [facility] will like a callback TODAY from nurse [phone] documented in this encounter Plan of Treatment Upcoming Encounters Date Type Department Care Team (Late st Contact Info) Description 10/18/2024 11:00 AM EDT Office Visit [facility] [address] [place] [address] Valeri Lerner DO [address] [place] [address] 10/25/2024 3:00 PM EDT Medication Management [facility] [address] [place] [phone] Batsheva Gomez, PharmD [address] [place] [address] documented as of this encounter Goals Goal [...] documented as of this encounter Care Teams Electrical Mechanical Technician Relationship Specialty Start Date End Date Valeri Lerner DO [address] [place] [address] PCP - General Family Medicine 07/13/12 Batsheva Gomez PharmD [address] [place] [address] Pharmacist Internal Medicine 03/07/24 [employer] 12/08/23 documented as of this encounter
--- OUTSIDE RECORDS SUMMARY | 2024-10-10 20:53 | XMS_ITS | Encounter Summary ---
Author Organization [employer] Address [address] [facility] 7t [place] [address] Care Team Providers Care Chuck Tender Name Role Phone Valeri Lerner DO Primary Care Provider Batsheva Gomez PharmD Unavailable Encounter Details Date Type Department Care Team (Late st Contact Info) Description 01/26/2024 Telephone [facility] [address] [place], [place] [phone] Valeri Lerner DO [address] [place], [place] [phone] Social History Tobacco Use Types Packs/Day Years [...] Description 10/18/2024 11:00 AM EDT Office Visit [facility] [address] [place] [address] Valeri Lerner DO [address] [place] [address] 10/25/2024 3:00 PM EDT Medication Management [facility] [address] [place] [address] Batsheva Gomez PharmD [address] [place] [phone] documented as of this encounter Visit Diagnoses Not on filedocumented in this encounter Additional Health Concerns Assessment Noted Time PHQ-9 Depression Total Score: 2 08/23/19 11:01 AM EST documented as of this encounter Care Teams Chuck Tender Relationship Specialty Start Date End Date Valeri Lerner DO [address] [place] [phone] PCP - General Family Medicine 07/13/12 Batsheva Gomez PharmD [address] [place] [phone] Pharmacist Internal Medicine 03/07/24 [employer] 12/08/23 documented as of this encounter
--- OUTSIDE RECORDS SUMMARY | 2024-10-10 20:53 | XMS_ITS | Encounter Summary ---
Author Organization [employer] Address [address] [facility] 7t [place] [address] Care Team Providers Care Utility Driver Name Role Phone Valeri Lerner DO Primary Care Provider [phone] Batsheva Gomez PharmD Unavailable [phone] Encounter Details Date Type Department Care Team (Latest Contact Info) Description 09/03/2024 Anticoagulation - Warfarin Visit [facility] [address] [place], [place] [phone] Michaela Rollins, SHIRLEY [address] [place] [address] Paroxysmal atrial fibrillation (CMS/HCC) Social History Tobacco [...] Progress Notes * Michaela Rollins RN - 09/03/2024 12:29 PM EST [facility] called to report pt's INR today as 2.9. Pt's INR discussed w/ PCP (Dr. Lerner), drawn by pt's VNA ([facility]). INR today is 2.9 Plan is 2mg today (09/03/24) and 4mg ALL OTHER DAYS (Monday09/04/24, 09/05/24, Monday09/06/24, Monday09/07/24, Monday09/08/24, Monday09/09/24) and repeat INR on Monday09/10/2024. RN informed [facility] [phone] of above plan and VNA repeated orders back to RN. VNA will report INR on 09/03/24 to [facility]. documented in this encounter Plan of Treatment Upcoming Encounters Date Type Department Care Team (Late st Contact Info) Description 10/18/2024 11:00 AM EDT Office Visit [facility] [address] [place] [address] Valeri Lerner DO [address] [place] [address] 10/25/2024 3:00 PM EDT Medication Management [facility] [address] [place] [address] Batsheva Gomez PharmD [address] [place] [address] documented as of this encounter Goals Goal [...] Date/Time Associated Diagnosis Comments PROTHROMBIN TIME-INR Routine 09/03/2024 documented in this encounter Results * (ABNORMAL) Prothrombin Time-INR (09/03/2024) INR 2.90(A) 2.00 - 3.00 EXTERNAL LAB Protime EXTERNAL LAB Blood Venous blood specimen / Unknown 09/03/2024 Valrei Lerner DO LAB BLOOD ORDERABLES Final R esult EXTERNAL LAB documented in this encounter Visit Diagnoses Diagnosis Paroxysmal atrial fibrillation (CMS/HCC) Atrial fibrillation documented in this encounter Additional Health Concerns Assessment Noted Time PHQ-9 Depression Total Score: 0 07/15/20 24 11:32 AM EST documented as of this encounter Care Teams Utility Driver Relationship Specialty Start Date End Date Valeri Lerner DO [address] [place] [address] PCP - General Family Medicine 07/13/12 Batsheva Gomez PharmD [address] [place] [address] Pharmacist Internal Medicine 03/07/24 [employer] 12/08/23 documented as of this encounter
--- OUTSIDE RECORDS SUMMARY | 2024-10-10 20:53 | XMS_ITS | Encounter Summary ---
Author Organization [employer] Address [address] [facility] 7t [place] [address] Care Team Providers Care Nut Processing Supervisor Name Role Phone Valeri Lerner DO Primary Care Provider Batsheva Gomez PharmD Unavailable Reason for Visit * Reason Comments Med Refill Encounter Details Date Type Department Care Team (Late st Contact Info) Description 08/28/2022 Refill [facility] [address] [place], [place] [phone] Valeri Lerner DO [address] [place], [place] [phone] Chronic constipation (Primary Dx) Social History Tobacco Use Types Packs/Day Years [...] EDT Gender Identity Choose not to disclose 2 10:14 AM EDT Sexual Orientation Straight 05/30/2022 10 :14 AM EDT COVID-19 Exposure Response Date Recorded In the last 10 days, have yo u been in contact with someone who was confirmed or suspected to have Coronavirus/COVID-19? No / Unsure 08/23/2022 9:58 AM EST documented as of this encounter Plan of Treatment Upcoming Encounters Date Type Department Care Team (Late st Contact Info) Description 10/18/2024 11:00 AM EDT Office Visit [facility] [address] [place] [address] Valeri Lerner DO [address] [place] [address] 10/25/2024 3:00 PM EDT Medication Management [address] [address] Batsheva Gomez PharmD [address] [place] [phone] documented as of this encounter Visit Diagnoses Diagnosis Chronic constipation- Primary Unspecified constipation documented in this encounter Care Teams Nut Processing Supervisor Relationship Specialty Start Date End Date Valeri Lerner DO [address] [place] [address] PCP - General Family Medicine 07/13/12 Batsheva Gomez, PharmD [address] [place] [address] Pharmacist Internal Medicine 03/07/24 [employer] 12/08/23 documented as of this encounter
--- OUTSIDE RECORDS SUMMARY | 2024-10-10 20:53 | XMS_ITS ---
Author Name Mike Radford NP Address [address] [place] [address] Phone [phone] [facility] Care Team Providers Care Council Member Name Role Phone Sunday Radfordtiffanyant Unavailable [phone] Unavailable Unavailable Unavailable [facility] Unavailable Reason for Referral Not Available Allergies, adverse reactions, alerts Allergen Type Reaction Severity Status Onset Date Acetaminophen Allergy to substance (disorder) Unkn own Active N/A Aspirin Allergy to substance (disorder) Unknown Active N/A Chlorpheniramine Allergy to substance (disorder) U nknown Active N/A Dextromethorphan Allergy to substance (disorder) U nknown Active N/A Oxycodone Allergy to substance (disorder) Unknown Active N/A Phenylephrine Allergy to substance (disorder) Unkn own Active N/A Pseudoephedrine Allergy to substance (disorder) Un known Active N/A History of medication use Medication Class Instructions Start Date End Date HumaLOG KwikPen 100 UNIT/ML Solution Pen-injector INJECT 8 UNITS SUBCUTANEOUSLY THREE TIMES DAILY 2021-05-10 No Data Available Lantus SoloStar 100 UNIT/ML Solution Pen-injector INJECT 25 UNITS SUBCUTANEOUSLY EVERY DAY 2021-12-15 No Data Available Warfarin Sodium 3 mg Tab TAKE 1 TO 1 & 1 /2 TABS BY MOUTH EVERY DAY DIRECTED BY [facility] 2022-01-11 No Data Available Advair Diskus 500-50 MCG/ACT Aerosol Powder Breath Activated INHALE 1 PUFF BY MOUTH TWICE DAILY IN THE MORNING AND IN THE EVENING RINSE MOUTH AFTER USING. 2021-11-08 No Data Available SM Alcohol Prep 70 % Pad USE THREE OR FO UR TIMES DAILY 2021-06-17 No Data Available cholecalciferol (vitamin D3) 50 mcg (2,000 unit) tablet TAKE 1 TABLET BY MOUTH EVERY MORNING 2022-02-28 No Data Available clonazePAM 0.5 mg Tab TAKE 1 TABLET BY M OUTH AT BEDTIME 2021-12-31 No Data Available Docusate Sodium 100 mg Cap TAKE 1 CAPSUL E BY MOUTH TWICE DAILY 2022-02-25 No Data Available Fluticasone Propionate 50 MCG/ACT Suspension USE 2 SPRAYS IN EACH NOSTRIL EVERY DAY 2022-01-27 No Data Available Furosemide 40 mg Tab TAKE 1 TABLET BY MO UTH EVERY MORNING 2022-02-25 No Data Available Levothyroxine Sodium 100 MCG Tab TAKE 1 TABLET BY MOUTH EVERY MORNING ON AN EMPTY STOMACH 2021-12-10 No Data Available metFORMIN ER 500 mg Tab ER 24hr TAKE 1 TABLET BY MOUTH TWICE DAILY IN THE MORNING AND IN THE EVENING WITH FOOD 2021-12-15 No Data Available Omeprazole 20 mg Cap delayed rel TAKE 1 CAPSULE BY MOUTH TWICE DAILY IN THE MORNING AND IN THE EVENING BEFORE MEALS 2021-08-08 No Data Available Sertraline 50 mg Tab TAKE 1 TABLET BY MO UTH EVERY MORNING 2022-01-27 No Data Available Trulicity 1.5 mg/0.5ML Solution Pen-injector INJECT ONE PEN (=1.5MG) SUBCUTANEOUSLY ONCE A WEEK DIRECTED 2021-10-10 No Data Available OneTouch Ultra Strip TEST BLOOD SUGAR TW ICE DAILY 2022-02-04 No Data Available OneTouch UltraSoft Lancets Miscellaneous TEST BLOOD SUGAR TWICE DAILY 2022-02-04 No Data Available Solifenacin Succinate 10 mg Tab TAKE 1 TABLET BY MOUTH EVERY MORNING 2022-04-25 No Data Available Tab-A-Judith Multivitamin w-iron 15 mg iron-400 mcg tablet TAKE 1 TABLET BY MOUTH EVERY MORNING WITH FOOD 2022-04-25 No Data Available UltiCare Pen Needle 32 gauge x 5/32 USE DIRECTED WITH LANTUS SOLOSTAR AND HUMALOG KWIKPEN 2022-03-16 No Data Available Atorvastatin Calcium 20 mg Tab TAKE 1 TABLET BY MOUTH AT BEDTIME 2021-10-15 No Data Available Metoprolol Tartrate 25 mg Tab TAKE 1/2 T ABLET BY MOUTH TWICE DAILY IN THE MORNING AND EVENING 2022-06-20 No Data Available Betamethasone Valerate 0.1 % Crm APPLY TO THE AFFECTED AREA(S) TOPICALLY TWICE DAILY IN THE MORNING AND AT BEDTIME (DRYNESS) NEEDED 2022-08-08 No Data Available Medbox Status USE DIRECTED 2022-06-13 No Data Keily ilable levoFLOXacin 750 mg Tab TAKE 1 TABLET BY MOUTH EVERY 24 HOURS 2022-09-26 No Data Available Triamcinolone Acetonide 0.1 % Oint APPLY TOPICALLY TWICE DAILY IN THE MORNING AND AT BEDTIME NEEDED FOR RASH 2023-08-23 No Data Available FreeStyle Jason 2 Sensor Miscellaneous USE DIRECTED. CHANGE EVERY 14 DAYS 2023-08-23 No Data Available OneTouch Delica Plus Lancing Miscellaneous TEST BLOOD SUGAR THREE TIMES DAILY 2023-08-23 No Data Available Bisacodyl EC 5 mg Tab delaye d rel TAKE 2 TABLETS BY MOUTH EVERY DAY AT BEDTIME FOR 2 DAYS 2023-10-17 No Data Available Cephalexin 500 mg Cap TAKE 1 CAPSULE BY MOUTH FOUR TIMES DAILY FOR 7 DAYS 2023-11-10 No Data Available traMADol 50 mg Tab TAKE 1 TABLET BY ARTHUR TH EVERY 6 HOURS NEEDED FOR PAIN 2024-01-08 No Data Available predniSONE 20 mg Tab TAKE 2 TABLETS BY M OUTH EVERY DAY 2024-01-08 No Data Available Sucralfate 1 GM Tab TAKE 1 TABLET BY ARTHUR TH BEFORE BREAKFAST, BEFORE LUNCH, AND BEFORE SUPPER 2024-01-26 No Data Available TechLITE Pen Needle 32 gauge x 5/32 USE DIRECTED WITH LANTUS AND HUMALOG 2024-01-25 No Data Available Loratadine 10 mg Tab TAKE 1 TABLET BY MO UTH EVERY MORNING 2024-03-29 No Data Available Benzonatate 100 mg Cap TAKE 1 CAPSULE BY MOUTH THREE TIMES DAILY IN THE MORNING, AT NOON, AND AT BEDTIME NEEDED FOR COUGH FOR 10 DAYS DO NOT BREAK, CRUSH, DISSOLVE OR CHEW 2024-03-29 No Data Available Comfort EZ Pen Bear 32 gauge x 5/32 USE DIRECTED WITH LANTUS AND HUMALOG 2024-01-25 No Data Available Ozempic (0.25 or 0.5 mg/DOSE ) 2 mg/3ML Solution Pen-injector INJECT 0.25 MG SUBCUTANEOUSLY EVERY 7 DAYS IN THE ABDOMEN, THIGHS OR UPPER ARM. ROTATE INJECTION SITES. FOR 28 DAYS. THEN INJECT 0.5 MG SUBCUTANEOUSLY EVERY 7 DAYS IN THE ABDOMEN, THIGHS, OR UPPER ARM, ROTATE INJECTION SITES. FOR 28 DAYS 2024-04-26 No Data Available Problem List Problem Status Onset Date Resolved Date Atherosclerosis of coronary artery of [place] heart Act cliff 2022-08-30 N/A Major depressive disorder in partial remission Active 2022-08-30 N/A Hypothyroidism Active 2022-08-30 N/A History of CVA (cerebrovascular accident) Active 2022-08-30 N/A Anemia in chronic illness Active 2022-08-30 N/ A paroxysmal atrial fibrillati on and Hypercoagulability due to atrial fibrillation Active 2022-08-15 N/A Type 2 diabetes mellitus with hyperlipidemia Active 2022-08-30 N/A Generalized anxiety disorder Active 2024-05-29 N/A Sepsis due to pneumonia Resolved 2022-10-032023 Morbid obesity due to excess calories Active 09-28-30 N/A Hypertensive heart disease with heart failure Active 2024-05-29 N/A Congestive heart failure & S econdary hyperaldosteronism Active 2024-05-29 N/A COPD (chronic obstructive pulmonary disease) Active 2022-08-15 N/A Other problems related to ne dical facilities and other health care Active 2024-05-29 N/A Encounters Encounters Type Facility Date of Service Diagnosis/Co mplaint New patient,40-59min; chronic exacerbation, 2 stable chronic or 1 acute illness add add modifier 95 for video (do not use for phone, instead use [id number]) [facility], ([place]) 08/25/2022 Paroxysmal atrial fibrillationChronic obstructive pulmonary disease, unspecifiedAthscl heart disease of [place] coronary artery w/o ang pctrsType 2 diabetes mellitus with other specified complicationHyperlipidemia, unspecifiedLong term (current) use of insulinMajor depressive disorder, single episode, in partial remissionHypothyroidism, unspecifiedMorbid (severe) obesity due to excess caloriesBody mass index (bmi) 38.0-38.9, adultPrsnl hx of TIA (TIA), and cereb infrc w/o resid deficitsAnemia in other chronic diseases classified elsewhere New patient,40-59min; chronic exacerbation, 2 stable chronic or 1 acute illness add add modifier 95 for video (do not use for phone, instead use [id number]) [facility], ([place]) 08/25/2022 New patient,40-59min; chronic exacerbation, 2 stable chronic or 1 acute illness add add modifier 95 for video (do not use for phone, instead use [id number]) [facility], ([place]) 08/25/2022 New patient,40-59min; chronic exacerbation, 2 stable chronic or 1 acute illness add add modifier 95 for video (do not use for phone, instead use [id number]) [facility], ([place]) 08/25/2022 New patient,40-59min; chronic exacerbation, 2 stable chronic or 1 acute illness add add modifier 95 for video (do not use for phone, instead use 14510-89) [facility], ([place]) 08/25/2022 New patient,40-59min; chronic exacerbation, 2 stable chronic or 1 acute illness add add modifier 95 for video (do not use for phone, instead use [id number]) [facility], ([place]) 08/25/2022 New patient,40-59min; chronic exacerbation, 2 stable chronic or 1 acute illness add add modifier 95 for video (do not use for phone, instead use 75287-73) [facility], ([place]) 08/25/2022 New patient,40-59min; chronic exacerbation, 2 stable chronic or 1 acute illness add add modifier 95 for video (do not use for phone, instead use [id number]) [facility], ([place]) 08[place]25/2022 Estab. patient 20-29min; 1 stable chronic or 2 minor; add add modifier 95 for video, modifier 93 for phone [facility] ([place]) 10/03/2022 Pneumonia, unspecified organismSepsis, unspecified organism Estab. patient 20-29min; 1 stable chronic or 2 minor; add add modifier 95 for video, modifier 93 for phone [facility] ([place]) 10[place]03/2022 Estab. patient 20-29min; 1 stable chronic or 2 minor; add add modifier 95 for video, modifier 93 for phone [facility] ([place]) 10/03/2022 Estab. patient 20-29min; 1 stable chronic or 2 minor; add add modifier 95 for video, modifier 93 for phone [facility] ([place]) 10/03/2022 Estab. patient 20-29min; 1 stable chronic or 2 minor; add add modifier 95 for video, modifier 93 for phone [facility], ([place]) 10/03/2022 Estab. patient 20-29min; 1 stable chronic or 2 minor; add add modifier 95 for video, modifier 93 for phone [facility], ([place]) 10/03/2022 Estab. patient 30-39min; chronic exacerbation, 2 stable chronic or 1 acute illness add add modifier 95 for video, (do not use for phone, instead use [id number]) [facility], ([place]) 05[place]28/2024 Paroxysmal atrial fibrillationOther thrombophiliaHypertensive heart disease with heart failureMorbid (severe) obesity due to excess caloriesSecondary hyperaldosteronismChronic obstructive pulmonary disease, unspecifiedHeart failure, unspecifiedMajor depressive disorder, single episode, in partial remissionType 2 diabetes mellitus with other specified complicationHypothyroidism, unspecifiedHyperlipidemia, unspecifiedAthscl heart disease of [place] coronary artery w/o ang pctrsAnemia in other chronic diseases classified elsewhereGeneralized anxiety disorderBody mass index (BMI) 40.0-44.9, adultPrsnl hx of TIA (TIA), and cereb infrc w/o resid deficitsOther problems related to medical facilities and other health care Estab. patient 30-39min; chronic exacerbation, 2 stable chronic or 1 acute illness add add modifier 95 for video, (do not use for phone, instead use [id number]) [facility], ([place]) 05[place]28/[place] Estab. patient 30-39min; chronic exacerbation, 2 stable chronic or 1 acute illness add add modifier 95 for video, (do not use for phone, instead use 69060-60) [facility], ([place]) 05[place]28/20[place] Estab. patient 30-39min; chronic exacerbation, 2 stable chronic or 1 acute illness add add modifier 95 for video, (do not use for phone, instead use [id number]) [facility], ([place]) 05[place]28/20[place] Estab. patient 30-39min; chronic exacerbation, 2 stable chronic or 1 acute illness add add modifier 95 for video, (do not use for phone, instead use 25014-60) [facility], ([place]) 05/28/2024 Estab. patient 30-39min; chronic exacerbation, 2 stable chronic or 1 acute illness add add modifier 95 for video, (do not use for phone, instead use [id number]) [facility], ([place]) 05/28/20[place] Estab. patient 30-39min; chronic exacerbation, 2 stable chronic or 1 acute illness add add modifier 95 for video, (do not use for phone, instead use [id number]) [facility], ([place]) 05/28/2024 Estab. patient 30-39min; chronic exacerbation, 2 stable chronic or 1 acute illness add add modifier 95 for video, (do not use for phone, instead use [id number]) [facility], ([place]) 05/28/20[place] Estab. patient 30-39min; chronic exacerbation, 2 stable chronic or 1 acute illness add add modifier 95 for video, (do not use for phone, instead use 53317-25) [facility], ([place]) 05/28/20[place] Estab. patient 30-39min; chronic exacerbation, 2 stable chronic or 1 acute illness add add modifier 95 for video, (do not use for phone, instead use 75125-78) [facility], ([place]) 05/28/20[place] Estab. patient 30-39min; chronic exacerbation, 2 stable chronic or 1 acute illness add add modifier 95 for video, (do not use for phone, instead use 15027-20) [facility], ([place]) 05/28/20[place] Estab. patient 10-29min; 1 minor problem; add add modifier 95 for video, modifier 93 for phone [facility] ([place]) 09/10/2024 Heart failure, unspecifiedSecondary hyperaldosteronismOther problems related to medical facilities and other health care Estab. patient 10-29min; 1 minor problem; add add modifier 95 for video, modifier 93 for phone [facility] ([place]) 10/10/2024 Chronic obstructive pulmonar y disease, unspecifiedHypertensive heart disease with heart failureOther problems related to medical facilities and other health care Vital Signs Date of Collection Vitals 2022-08-25 06:36:45 Height - 160.02 cmWe ight - 99.79 kgBody Mass Index (BMI) - 38.97 kg/m2BP Diastolic - 58.0 mm[Hg]BP Systolic - 126.0 mm[Hg]Heart Rate - 79.0 /min 2022-10-03 07:05:20 BP Diastolic - 63.0 mm[Hg]BP Systolic - 138.0 mm[Hg] 2024-05-28 07:45:46 Weight - 113.4 kgBod y Mass Index (BMI) - 44.29 kg/m2BP Diastolic - 80.0 mm[Hg]BP Systolic - 120.0 mm[Hg]Pain Scale - 5.0 {score} Social History Social History Social History Observation Description Effec tive Time Current Smoking Status Former smoker 2024-09-28 4 Sex Female Gender identity Woman History of Procedures Procedures Service Procedure code Service date Servicing provider Phone# New patient,40-59min; chronic exacerbation, 2 stable chronic or 1 acute illness add add modifier 95 for video (do not use for phone, instead use [id number]) 14910 2022-08-25 No Data Available No Data Availa ble Medication List Documented (1159F) 1159F 2022-08-25 No Data Available No Data Keily ilable Medication Review by prescribing provider or pharmacist documented (1160F) 1160F 2022-08-25 No Data Available No Data Keily ilable Functional Status Assessed (1170F) 1170F 2022-08-25 No Data Available No Data Avail able Advance Care Directive Advance care planning discussion documented in the medical record (1158F) 1158F 2022-08-25 No Data Available No Data Availa ble BMI obtained (3008F) 3008F 2022-08-25 No Data Availab le No Data Available SBP < 130 (3074F) 3074F 2022-08-25 No Data Available No Data Available DBP <80 (3078F) 3078F 2022-08-25 No Data Available No Data Available Estab. patient 20-29min; 1 stable chronic or 2 minor; add add modifier 95 for video, modifier 93 for phone [id number] 2022-10-03 No Data Available No Data Availa ble Medication List Documented (1159F) 1159F 2022-10-03 No Data Available No Data Keily ilable Pain Assessment - NO pain present (1126F) 1126F 2022-10-03 No Data Available No Data A vailable SBP 130-139 (3075F) 3075F 2022-10-03 No Data Availabl e No Data Available DBP <80 (3078F) 3078F 2022-10-03 No Data Available No Data Available Medications prescribed in hospital were reviewed and reconciled against what they were taking prior to admission during today's visit. (1111F) 1111F 2022-10-03 No Data Available No Data Availa ble Estab. patient 30-39min; chronic exacerbation, 2 stable chronic or 1 acute illness add add modifier 95 for video, (do not use for phone, instead use [id number]) 79724 2024-05-28 No Data Available No Data Availa ble Medication List Documented (1159F) 1159F 2024-05-28 No Data Available No Data Keily ilable Medication Review by prescribing provider or pharmacist documented (1160F) 1160F 2024-05-28 No Data Available No Data Keily ilable Pain Assessment - Pain Documented on a Pain Scale (1125F) 1125F 2024-05-28 No Data Available No Data Keily ilable BMI obtained (3008F) 3008F 2024-05-28 No Data Availab le No Data Available Advance Care Directive Advance care planning discussion documented in the medical record (1158F) 1158F 2024-05-28 No Data Available No Data Availa ble Advance care planning discussed and documented ? advance care plan or surrogate decision-maker was documented in the medical record. (1123F) 1123F 2024-05-28 No Data Available No Data Availa ble Most recent A1c (HbA1c) or GMI level 7-7.9% (3051F) 3051F 2024-05-28 No Data Available No Data Availa ble SBP < 130 (3074F) 3074F 2024-05-28 No Data Available No Data Available DBP 80-89 (3079F) 3079F 2024-05-28 No Data Available No Data Available Functional Status Assessed (1170F) 1170F 2024-05-28 No Data Available No Data Avail able Estab. patient 10-29min; 1 minor problem; add add modifier 95 for video, modifier 93 for phone [id number] 2024-09-10 No Data Available No Data Availa ble Estab. patient 10-29min; 1 minor problem; add add modifier 95 for video, modifier 93 for phone [id number] 2024-10-10 No Data Available No Data Availa ble Functional Status Functional Category Effective Dates ADL: Bathing Needs Assistanc e , Dressing Needs Assistance , Eating Independent , Ambulation Needs Assistance , Transferring Needs Assistance and Toileting Needs Assistance 2024-05-29 IADL: Medication Needs Abdulkadir tance , Meal Prep Needs Assistance , Shopping Needs Assistance , Driving or Public Transport Needs Assistance , Housework Needs Assistance 2024-05-29 How many falls within the last 6 months? yes 2024-05-29 Near falls within the last 6 months? yes 2024-05-29 Do you worry about falling? Yes DME used with ambulation: Walker 2024-04 Social Supports - # of Inter actions with Friends/Family in a typical week: 2024-05-29 Do you feel unsteady on your feet? Yes Mental Status Status Date Cognition Status: Oriented to Person, Pl catherine and Time 2024-05-29 Assessments Date of Service Assessments 2022-08-25 06:36:45 paroxysmal atrial fi brillationCOPD (chronic obstructive pulmonary disease)Atherosclerosis of coronary artery of [place] heartType 2 diabetes mellitus with hyperlipidemiaMajor depressive disorder in partial remissionHypothyroidismMorbid obesity due to excess caloriesHistory of CVA (cerebrovascular accident)Anemia in chronic illness 2022-10-03 07:05:20 Patient Education to avoid future hospitalization: Call [facility] if symptoms of illness develop.Sepsis due to pneumonia 2024-05-28 07:45:46 paroxysmal atrial fi brillation and Hypercoagulability due to atrial fibrillationCOPD (chronic obstructive pulmonary disease)Atherosclerosis of coronary artery of [place] heartType 2 diabetes mellitus with hyperlipidemiaMajor depressive disorder in partial remissionHypothyroidismMorbid obesity due to excess caloriesHistory of CVA (cerebrovascular accident)Anemia in chronic illnessCongestive heart failure & Secondary hyperaldosteronismGeneralized anxiety disorderEssential hypertensionOther problems related to medical facilities and other health care 2024-09-10 07:14:42 Other problems relat ed to medical facilities and other health careCongestive heart failure & Secondary hyperaldosteronism 2024-10-10 06:15:41 COPD (chronic obstru ctive pulmonary disease)Hypertensive heart disease with heart failureOther problems related to medical facilities and other health care Plan of Care Date of Service Plans 2022-08-25 06:36:45 Medication Review by prescribing provider or pharmacist documented (1160F)Medication List Documented (1159F)Functional Status Assessed (1170F)Advance Care Directive Advance care planning discussion documented in the medical record (1158F)BMI obtained (3008F)SBP < 130 (3074F)DBP <80 (3078F)Televideo new patient,40-59min; chronic exacerbation, 2 stable chronic or 1 acute illness add modifier 95Continue to see PCP. Follow-up with Dorothy as needed for any acute or disease education needs that may arise.continues on coumadinmtr INRsmtr for any s+s of bleedingmetoprolol for rate controladvair, fluticasonefu w pulmonarycont lasix statin metoprololfu w cardiologycont humalog, lantus, metformin, trulicty a1c 7.7, [facility] and [facility] lipids fu w endocrinecont on sertralinept denies symptoms currentlycont to [facility] fcont clonazepam for anxiety/insomnialevothyroxinefu w endomtr tshBMI 38cont diet and exercisefu w pcpmtr labsin 95cont statin, antihypertensiveson coumadin for afibmtr cbc.ferritinno s+s of bleeding 2022-10-03 07:05:20 Discharge medication s reconciled with current medication listTelevideo 20-29min; 1 stable chronic or 2 minor; add modifier 95PCP visit is planned for: PendingStable. Recently hospitalized 09/20/22-09/26/22 for sepsis secondary to community-aquired pneumonia. Presented with n/v/d and back pain x2 days. Treated with ceftriaxone and azithromycin and transitioned to levofloxacin as sepsis resolved. Discharged home with VNA services and home PT. Also prescribed x5 more days of levofloxacin which has been completed. Continue medications as directed. Encouraged to contact CB for any acute needs or changes to medical status. Increase physical activities as tolerated. Maintain safety and fall precautions. Follow up with PCP as indicated. 2024-05-28 07:45:46 Televideo 30-39min; chronic exacerbation, 2 stable chronic or 1 acute illness add modifier 95Functional Status Assessed (1170F)BMI obtained (3008F)Advance Care Directive Advance care planning discussion documented in the medical record (1158F)Advance care planning discussed and documented ? advance care plan or surrogate decision-maker was documented in the medical record. (1123F)Pain Assessment - Pain Documented (1125F)Medication Review by prescribing provider or pharmacist documented (1160F)Medication List Documented (1159F)Most recent hemoglobin A1c (HbA1c) level 7-7.9% (3051F)SBP < 130 (3074F)DBP 80-89 (3079F)Continue to see PCP. Follow-up with Dorothy as needed for any acute or disease education needs that may arise.continues on coumadinmtr INRsmtr for any s+s of bleedingmetoprolol for rate controladvair, fluticasonefu w pulmonarycont lasix statin metoprololfu w cardiologycont humalog, lantus, metformin, trulicty Outside Care Hgb A1c = 7.1Educated on the importance of daily FSBS checks. Advised to report symptoms of hyperglycemia to CB or PCP. Advised on diabetic diet including avoiding foods with high sugar content, high carbohydrates or starchy foods like rice, potatoes. Advised to eat smaller portions with healthy snacks.cont on sertralinept denies symptoms currentlycont to mtr fcont clonazepam for anxiety/insomnialevothyroxinefu w endomtr tshBMI 44.29cont diet and exercisefu w pcpmtr labsin 95cont statin, antihypertensiveson coumadin for afibmtr cbc.ferritinno s+s of bleedingMonitor for weight gain, SOB, PND and Edema.. Keep a wt log. Call for 3 lb wt gain in a day or 5 lbs in a week.2g Na restricted diet and <1500 ml fluids restriction. Check blood pressure daily and when not feeling wellReport consistent blood pressures readings >140/90Notify provider with any changes in behavior, difficulty sleeping, or new/worsening depressive symptoms.Encourage low sodium diet. Encouraged daily blood pressure checks and tracking. Instructed patient to notify CB or PCP if blood pressure >140/90 or <90/50.HEART FAILURE CONTINGENCY PLANLast updated: 05/29/2024Member to call for the following symptoms: BP <100/60??/ BP >180/100??/ Edema/ Exertional dyspnea/ Weight gain or lossPlanned intervention: Increase furosemide (Lasix) to _ mg for _ days/ Wrap legs with Catherine wrap/ Put on compression stockings/ Eat lower sodium foods/ Take medication every single day 2024-09-10 07:14:42 Estab. patient 10-29 min; 1 minor problem; add add modifier 95 for video, modifier 93 for phoneContinue to see PCP. Follow-up with [facility] as needed for any acute or disease education needs that may arise 20/02.HEART FAILURE CONTINGENCY PLANLast updated: 05/29/2024[facility] to call for the following symptoms: BP <100/60??/ BP >180/100??/ Edema/ Exertional dyspnea/ Weight gain or lossPlanned intervention: Increase furosemide (Lasix) to _ mg for _ days/ Wrap legs with Catherine wrap/ Put on compression stockings/ Eat lower sodium foods/ Take medication every single dayMonitor for weight gain, SOB, PND and Edema.. Keep a wt log. Call for 3 lb wt gain in a day or 5 lbs in a week.2g Na restricted diet and <1500 ml fluids restriction. Check blood pressure daily and when not feeling wellReport consistent blood pressures readings >140/902/06/24: CHEMICAL PRODUCTION TECHNICIAN reports that in the last couple of days the patient's toes have been pink and sensitive to touch, denies uncontrolled pain to touch. She has an appointment with the career portals teacher on monday for further evaluation. 2024-10-10 06:15:41 Estab. patient 10-29 min; 1 minor problem; add add modifier 95 for video, modifier 93 for phoneContinue to see PCP. [facility] for any acute or disease education needs that may arise 20/02.advair, fluticasonefu w pulmonary3/: Patient denies dyspnea or any other concerns.Encourage low sodium diet. Encouraged daily blood pressure checks and tracking. Instructed patient to notify CB or PCP if blood pressure >140/90 or <90/50.HEART FAILURE CONTINGENCY PLANLast updated: 05/29/2024[facility] to call for the following symptoms: BP <100/60??/ BP >180/100??/ Edema/ Exertional dyspnea/ Weight gain or lossPlanned intervention: Increase furosemide (Lasix) to 60 mg for 3 days/ Wrap legs with Catherine wrap/ Put on compression stockings/ Eat lower sodium foods/ Take medication every single day Goals Date Goal 2022-08-25 fu w pcp, cont to ta ke meds as ordered, call us if you have any questions or concerns 2022-10-03 Remember to follow u p with PCP and specialists as directed.Call if you have any questions, comments, or concerns.Keep taking your medications as prescribed. 2024-05-28 Continue taking medi cations as directed and keep all follow up appointments with established PCP and Specialist. Health Concerns Date Concern 2024-10-10 Visit completed via audio by telephone. Patient/Guardian agreed to visit via telehealth.Time spent in visit: 2024-10-10 Most recent hospital stay(s) or ER visit(s) and precipitating factors: Angelina 2024-10-10 KINDRA review: Review ed
--- OUTSIDE RECORDS SUMMARY | 2024-10-10 20:53 | XMS_ITS | Encounter Summary ---
Author Organization [employer] Address [address] [place] [address] Care Team Providers Care Tool Shaper Setup Operator Name Role Phone Valeri Lerner DO Primary Care Provider Batsheva Gomez PharmD Unavailable Reason for Visit * Reason Comments Med Refill Encounter Details Date Type Department Care Team (Late st Contact Info) Description 09/12/2023 Refill [facility] [address] [place], [place] [phone] Valeri Lerner DO [address] [place], [place] [phone] Generalized anxiety disorder Social History Tobacco Use [...] Recorded What is your housing situation today? Not on patrica e 08/23/[address] you li ve. Do you have problems with any of the following? None of the above 08/23/2023 Food Insecurity Answer Date Recorded Within the [...] the past 12 months, has t he [employer], gas, oil or water company threatened to [...] Description 10/18/2024 11:00 AM EDT Office Visit [facility] [address] [place] [address] Valeri Lerner DO [address] [place] [address] 10/25/2024 3:00 PM EDT Medication Management [facility] [address] [place] [address] Batsheva Gomez, PharmD [address] [place] [address] documented as of this encounter Visit Diagnoses Diagnosis Generalized anxiety disorder documented in this encounter Additional Health Concerns Assessment Noted Time PHQ-9 Depression Total Score: 2 08/23/19 24 11:01 AM EST documented as of this encounter Care Teams Tool Shaper Setup Operator Relationship Specialty Start Date End Date Valeri Lerner DO [address] [place] [address] PCP - General Family Medicine 12/14/12 Batsheva Gomez, Frankie [address] [place] [address] Pharmacist Internal Medicine 03/07/24 [employer] - Biomolecular Determination 12/08/23 documented as of this encounter
--- OUTSIDE RECORDS SUMMARY | 2024-10-10 20:53 | XMS_ITS | Encounter Summary ---
Author Organization [employer] Address [address] [facility] 7t [place] [address] Care Team Providers Care Pourer Off Name Role Phone Valeri Lerner DO Primary Care Provider Batsheva Gomez PharmD Unavailable Reason for Visit * Reason Comments Med Refill Encounter Details Date Type Department Care Team (Late st Contact Info) Description 10/06/2024 Refill [facility] [address] [place], [place] [phone] Valeri Lerner DO [address] [place], [place] [phone] Other hyperlipidemia; Chronic constipation Social History Tobacco Use Types Packs/Day Years [...] the past 12 months, has t he [employer], gas, oil or water [employer] threatened to shut off services in your [...] Description 10/18/2024 11:00 AM EDT Office Visit [facility] [address] [place] [address] Valeri Lerner DO [address] [place] [address] 10/25/2024 3:00 PM EDT Medication Management [facility] [address] [place] [address] Batsheva Gomez PharmD [address] [place] [address] documented as of this encounter Goals Goal [...] directed. Hemoglobin A1c < 8 Result Component 7.8(12/16/202 4 11:33 AM EST) No Batsheva Gomez, PharmD documented as of this encounter Visit Diagnoses Diagnosis Other hyperlipidemia Chronic constipation Unspecified constipation documented in this encounter Additional Health Concerns Assessment Noted Time PHQ-9 Depression Total Score: 0 07/15/20 24 11:32 AM EST documented as of this encounter Care Teams Pourer Off Relationship Specialty Start Date End Date Valeri Lerner DO [address] [place] [address] PCP - General Family Medicine 07/13/12 Batsheva Gomez, CecilyD [address] [place] [address] Pharmacist Internal Medicine 03/07/24 [employer] 12/08/23 documented as of this encounter
--- OUTSIDE RECORDS SUMMARY | 2024-10-10 20:53 | XMS_ITS | Encounter Summary ---
Author Organization [employer] Address [address] 7t [place] [address] Care Team Providers Care Telephone Messenger Name Role Phone Valeri Lerner DO Primary Care Provider Batsheva Gomez PharmD Unavailable [phone] Encounter Details Date Type Department Care Team (Latest Contact Info) Description 09/10/2024 Anticoagulation - Warfarin Visit [facility] [address] [place], [place] [phone] Mihcaela Rollins, SHIRLEY [address] [place] [address] Paroxysmal atrial fibrillation (CMS/HCC) Social History Tobacco [...] Progress Notes * Michaela Rollins RN - 09/10/2024 1:34 PM EST VNA Artemio called to report pt's INR today as 3.0. Pt's INR discussed w/ PCP (Dr. Lerner), drawn by pt's VNA (Artemio VALERIO). INR today is 3.0 Plan is 2mg today (09/10/24) and 4mg ALL OTHER DAYS (Monday09/11/24, 09/12/24, Monday09/13/24, Monday09/14/24, Monday09/15/24, Monday09/16/24) and repeat INR on Monday09/17/2024. RN informed VNA Artemio [phone] of above plan and VNA repeated orders back to RN. VNA will report INR on 09/03/24 to [facility]. documented in this encounter Plan of Treatment Upcoming Encounters Date Type Department Care Team (Late st Contact Info) Description 10/18/2024 11:00 AM EDT Office Visit [facility] [address] [place] [address] Valeri Lerner DO 230 [place] [address] 10/25/2024 3:00 PM EDT Medication Management [facility] [address] [place] [address] Batsheva Gomez PharmD [address] [place] [address] documented as of this encounter Goals Goal [...] Date/Time Associated Diagnosis Comments PROTHROMBIN TIME-INR Routine 09/10/2024 documented in this encounter Results * (ABNORMAL) Prothrombin Time-INR (09/10/2024) INR 3.00(A) 2.00 - 3.00 EXTERNAL LAB Protime EXTERNAL LAB Blood Venous blood specimen / Unknown 09/10/2024 Valeri Lerner DO LAB BLOOD ORDERABLES Final R esult EXTERNAL LAB documented in this encounter Visit Diagnoses Diagnosis Paroxysmal atrial fibrillation (CMS/HCC) Atrial fibrillation documented in this encounter Additional Health Concerns Assessment Noted Time PHQ-9 Depression Total Score: 0 07/15/20 24 11:32 AM EST documented as of this encounter Care Teams Telephone Messenger Relationship Specialty Start Date End Date Valeri Lerner DO [address] [place] [address] PCP - General Family Medicine 07/13/12 Batsheva Gomez PharmD [address] [place] [address] Pharmacist Internal Medicine 03/07/24 [employer] 12/08/23 documented as of this encounter
--- OUTSIDE RECORDS SUMMARY | 2024-10-10 20:53 | XMS_ITS | Encounter Summary ---
Author Organization [employer] Address [address] [facility] 7t [place] [address] Care Team Providers Care Hide Buffer Name Role Phone Valeri Lerner DO Primary Care Provider Batsheva Gomez PharmD Unavailable Reason for Visit * Reason Onset Date Comments Nurse Triage 03/25/2024 Encounter Details Date Type Department Care Team (Late st Contact Info) Description 03/25/2024 Telephone [facility] [address] [place], [place] [phone] Valeri Lerner DO [address] [place], [place] [phone] Nurse Triage Social History Tobacco Use Types [...] the past 12 months, has t he [employer], gas, oil or water company threatened to [...] encounter Miscellaneous Notes * Telephone Encounter - Joy Castano RN - 03/25/2024 2:22 PM EDT Called VNA, spoke to Artemio. States calling to report persistent coughing since discharge from hospital. Artemio denies known fevers, worsening severe or sustained sob, vomiting, or severe weakness. Advised that pt has HDF appt with PCP Monday and should keep that appt. Advised to call back as needed, to reports any other concerns or worsening. Artemio understands and agrees with plan. Insurance verified. Will task to team nurses to do status check in the next 1-2 days. * Telephone Encounter - Farzana Lai - 03/25/2024 1:26 PM EDT Symptoms: Cough, Chest Congestion Outcome: Schedule an appointment to be seen within 24 hours Reason: Caller denied all higher acuity questions The caller accepted this outcome Contact pt visiting nurse Artemio at [phone] documented in this encounter Plan of Treatment Upcoming Encounters Date Type Department Care Team (Late st Contact Info) Description 10/18/2024 11:00 AM EDT Office Visit [facility] [place] [address] [place] [address] 10/25/2024 3:00 PM EDT Medication Management [facility] [address] [place] [address] PuiaLoidasa, PharmD vIania [place], [place] [phone] documented as of this encounter Goals Goal Patient Goal Type Associated Problems Recent Progress Patient-Stated? Author Patient will adhere to medication regimen General No Puia, Batsheva, PharmD Record your blood sugar as directed Result Component No Patricia Batsheva, PharmD Note: Resume CGM. Ensure sensor is scanned at least once every 8 hours to capture 24H data. Check BG manually, as directed. Hemoglobin A1c < 8 Result Component 7.8( 11:33 AM EST) No Puia, Batsheva, PharmD documented as of this encounter Visit Diagnoses Not on filedocumented in this encounter Additional Health Concerns Assessment Noted Time PHQ-9 Depression Total Score: 2 08/23/19 11:01 AM EST documented as of this encounter Care Teams Hide Buffer Relationship Specialty Start Date End Date Valeri Lerner DO [address] [place], [place] [phone] PCP - General Family Medicine 07/13/12 Puia, Batsheva, PharmD [address] [place], [place] [phone] Pharmacist Internal Medicine 03/07/24 [employer] 12/08/23 documented as of this encounter
--- OUTSIDE RECORDS SUMMARY | 2024-10-10 20:53 | XMS_ITS | Encounter Summary ---
Author Organization [employer] Address [address] [facility] 7t [place] [address] Care Team Providers Care Website Developer Name Role Phone Valeri Lerner DO Primary Care Provider Batsheva Gomez PharmD Unavailable [phone] Encounter Details Date Type Department Care Team (Latest Contact Info) Description 10/08/2024 Anticoagulation - Warfarin Visit [facility] [address] [place], [place] [phone] Hanane Jackson, RN 230 [place], [place] [phone] Paroxysmal atrial fibrillation (CMS/HCC) Social History Tobacco [...] as of this encounter Progress Notes * Hanane Jackson RN - 10/08/2024 2:34 PM EDT INR today 10/08/24 is 3.0 on Coumadin dose 2mg Tu, 4mg all other days. New order obtained fromDr. Lerner to remain on same dose, Recheck INR in 1 week. VNA RN Verbalizes understanding and repeated back dosing correctly and will return to recheck pt.'s INR on 10/15/24 documented in this encounter Plan of Treatment Upcoming Encounters Date Type Department Care Team (Late st Contact Info) Description 10/18/2024 11:00 AM EDT Office Visit [facility] [address] [place] [address] Valeri Lerner DO [address] [place] [address] 10/25/2024 3:00 PM EDT Medication Management [facility] [address] [place] [address] Batsheva GomezFrankie [address] [place] [address] documented as of this encounter Goals Goal [...] Date/Time Associated Diagnosis Comments PROTHROMBIN TIME-INR Routine 10/08/2024 documented in this encounter Results * Prothrombin Time-INR (10/08/2024) INR 3.00 0.90 - 1.10 Protime Blood Venous blood specimen / Unknown 10/08/2024 us Historical Provider LAB BLOOD ORDERABLES Anastasiya l Result documented in this encounter Visit Diagnoses Diagnosis Paroxysmal atrial fibrillation (CMS/HCC) Atrial fibrillation documented in this encounter Additional Health Concerns Assessment Noted Time PHQ-9 Depression Total Score: 0 07/15/20 24 11:32 AM EST documented as of this encounter Care Teams Website Developer Relationship Specialty Start Date End Date Valeri Lerner DO [address] [place] [address] PCP - General Family Medicine 07/13/12 Batsheva Gomez PharmD [address] [place] [address] Pharmacist Internal Medicine 03/07/24 [employer] 12/08/23 documented as of this encounter
--- OUTSIDE RECORDS SUMMARY | 2024-10-10 20:53 | XMS_ITS | Encounter Summary ---
Author Organization [employer] Address [address] [facility] 7t [place] [address] Care Team Providers Care Physicist Solid State Name Role Phone Valeri Lerner DO Primary Care Provider Batsheva Gomez PharmD Unavailable [phone] Encounter Details Date Type Department Care Team (Latest Contact Info) Description 10/01/2024 Anticoagulation - Warfarin Visit [facility] 230 [place], [place] [phone] Michaela Rollins, SHIRLEY [address] [place] [address] Paroxysmal atrial fibrillation (CMS/HCC) Social History Tobacco [...] Progress Notes * Michaela Rollins RN - 10/01/2024 2:41 PM EST VNA Artemio called to report pt's INR today as 3.6. Pt's INR discussed w/ PCP (Dr. Lerner), drawn by pt's VNA (Artemio VALERIO). INR today is 3.6 Plan is 2mg today (10/01/24) and 4mg all other days. Repeat INR on Monday10/08/2024. RN informed VNA Artemio [phone] of above plan and VNA repeated orders back to RN. VNA will report INR on 10/08/24 to [facility]. documented in this encounter Plan of Treatment Upcoming Encounters Date Type Department Care Team (Late st Contact Info) Description 10/18/2024 11:00 AM EDT Office Visit [facility] [address] [place], [place] [phone] Valeri Lerner DO [address] [place] [address] 10/25/2024 3:00 PM EDT Medication Management [facility] [address] [facility] [place] [address] Batsheva Gomez PharmD 230 [place] [address] documented as of this encounter Goals Goal [...] Result Component 7.8( 11:33 AM EST) No Batsheva Gomez PharmD documented as of this encounter Procedures Procedure Name Priority Date/Time Associated Diagnosis Comments PROTHROMBIN TIME-INR Routine 10/01/2024 documented in this encounter Results * (ABNORMAL) Prothrombin Time-INR (10/01/2024) INR 3.60(A) 2.00 - 3.00 EXTERNAL IMAGING Protime EXTERNAL IMAGING Blood Venous blood specimen / Unknown 10/01/2024 us Valeri Lerner DO LAB BLOOD ORDERABLES Final R esult EXTERNAL IMAGING documented in this encounter Visit Diagnoses Diagnosis Paroxysmal atrial fibrillation (CMS/HCC) Atrial fibrillation documented in this encounter Additional Health Concerns Assessment Noted Time PHQ-9 Depression Total Score: 0 07/15/20 24 11:32 AM EST documented as of this encounter Care Teams Physicist Solid State Relationship Specialty Start Date End Date Valeri Lerner DO [address] [facility] [place] [place] PCP - General Family Medicine 07/13/12 Batsheva Gomez PharmD [address] [place] [address] Pharmacist Internal Medicine 03/07/24 [employer] 12/08/23 documented as of this encounter
--- OUTSIDE RECORDS SUMMARY | 2024-10-10 20:53 | XMS_ITS | Encounter Summary ---
Author Organization [employer] Address [address] [facility] 7t [place] [address] Care Team Providers Care Twisting Operator Name Role Phone Valeri Lerner DO Primary Care Provider Batsheva Gomez PharmD Unavailable [phone] Reason for Visit * Reason Onset Date Comments Coagulation Disorder 09/17/2024 Encounter Details Date Type Department Care Team (Late st Contact Info) Description 09/17/2024 Telephone [facility] [address] [place] [address] Michaela Rollins, RN [address] [place] [address] Coagulation Disorder Social History Tobacco Use Types Packs/Day Years [...] the past 12 months, has t he [employer], gas, oil or water company threatened to [...] encounter Miscellaneous Notes * Telephone Encounter - Michaela Rollins RN - 09/23/2024 1:49 PM EST Patients VNA checked INR today which was 1.9 (see anticoagulation encounter). Patients coumadin dosing since last INR is as follows: 09/10/24-2mg 09/11/24-4mg 09/12/24-4mg 09/13/24-4mg 25-4mg 25-4mg 25-4mg 25-4mg 25-4mg 25-4mg 25-4mg 25-4mg 09/22/24-NONE * Telephone Encounter - Michaela Rollins RN - 09/23/2024 8:35 AM EST RN reviewed meditech. Per meditech, patient was discharged home on 09/21/24. Per case management note: PT CLEARED TO DC TODAY, DAVID CALLED PTS DAUGHTER, CATARINA, WHO STATES SHE SAW THE PT YESTERDAY AND THEPT WAS WALKING AND OFF OF O2, SO THEY FEEL SHE CAN RETURN HOME SHE SAYS THE PT HAS A STRESS TEST SCHEDULED FOR MONDAY AND WONDERS IF SHE SHOULD GO, CM CONSULTED HOSPITALIST, WHO CONSULTED CARDIOLOGY PER CARDIOLOGY, PT MAY WANT TO RESCHEDULE STRESS TEST. THIS WAS RELAYED TO DAUGHTER WHO EXPRESSED CONCERNS IT IS A SOMEWHAT URGENT MATTER, AFTER FURTHER DISCUSSION WITH THE HOSPITALIST, SHE WAS ENCOURAGED TO CONSULT THE PROVIDER WHO ORDERED THE STRESS TEST. CATARINA REQUESTED A NOTE STATING THIS SOSHE COULD BRING IT MONDAY MORNING. DAVID PROVIDED A NOTE THAT STATED NUTRITION SERVICES MANAGER RECOMMENDED IT BE RESCHEDULED, HOWEVER SINCE DAUGHTER INDICATED IT IS URGENT, SHE WAS ENCOURAGED TO SPEAK TO THE ORDERING PROVIDER. CATARINA STATES PT WAS ACTIVE WITH [facility] SENIOR PROPERTY ACCOUNTANT, A RETURN REFERRAL WAS SENT TO THEM ON ADMISSION, HOWEVER THEY HAVE NOT RESPONDED CATARINA PROVIDED THE PHONE NUMBER FOR THE PTS HOME NURSE, ARTEMIO [phone]. DAVID CALLED ARTEMIO WHO STATED HE WOULD RESUME VISITS TOMORROW AND ASKED THAT A COPY OF PTS DCS BE SENT HOME WITH HER HE WILL NOT BE ABLE TO ACCESS THE COPY SENT TO THE OFFICE. COPY IN DC FOLDER PTS FAMILY WILL PROVIDE TRANSPORT AROUND 1600 HOURS RN called Artemio [phone] who confirms he was notified yesterday evening of patient being discharged home from [facility]. Artemio reports he has NOT seen the patient since she has been home however reports he WILL be seeing the patient this morning. RN requested Artemio check patients INR today. RN will return call to [facility] this PM for INR. * Telephone Encounter - Michaela Rollins RN - 09/20/2024 9:30 AM EST [facility], [facility] to be admitted to [facility]. Care management continues to search bedfor SNF. RN will continue to f/u on Monday. * Telephone Encounter - Michaela Rollins RN - 09/19/2024 2:09 PM EST [employer] reviewed, patient continues to be inpatient. Per case management note, referrals are placed for SNF placement. RN will check on status tomorrow. * Telephone Encounter - Michaela Rollins RN - 09/18/2024 9:53 AM EST Per meditech, patient continues to be admitted to [facility]. No discharge plan as of yet. RN notified VNAVictor [phone]. RN will monitor tomorrow. * Telephone Encounter - Michaela Rollins RN - 09/17/2024 2:03 PM EST RN called VNA to obtain INR-Artemio [phone] however RN was informed te patient is admitted to [facility]. Patient was seen at [facility] ED on 09/16/24 and per admission note: Pt will require a hospitalization of at least two nights for treatment of acute hypoxic respiratory failure in the setting of acute influenza type a infection. Given patient's significant multiple comorbidities including asthma, atrial fibrillation, and diabetes as well as age, she is at risk of rapid deterioration without hospital level care for administration of IV steroids, breathing treatments, supplemental oxygen, and close monitoring of respiratory status.' RN advised VNA, RN would call back tomorrow to status check if patient is discharged. VNA aware to check INR upon patients return home. documented in this encounter Plan of Treatment Upcoming Encounters Date Type Department Care Team (Late st Contact Info) Description 10/18/2024 11:00 AM EDT Office Visit [facility] [address] [place], [place] [phone] Valeri Lerner DO 230 [place], [place] [phone] 10/25/2024 3:00 PM EDT Medication Management [facility] [address] [place], [place] [phone] Batsheva Gomez, PharmD [address] [place], [place] [phone] documented as of this encounter Goals Goal [...] documented as of this encounter Care Teams Twisting Operator Relationship Specialty Start Date End Date Valeri Lerner DO 230 [place] [address] PCP - General Family Medicine 07/13/12 Batsheva Gomez PharmD [address] [place] [address] Pharmacist Internal Medicine 03/07/24 [employer] 12/08/23 documented as of this encounter
[2024-10-10 21:40] LABS: Appearance Urine Clear; Color Urine Dark Yellow; Glucose Urine UA Negative (Negative); Leukocyte Esterase Urine Negative (Negative); Nitrite Urine Negative (Negative); UMIC TRIGGER UACC YES; Urine Blood Small (1+) (Negative); Urine Ketones Negative (Negative); Urine Protein 100 (2+) mg/dL (Neg-Trace)
[2024-10-10 21:50] LABS: Bacteria Urine None Seen (None Seen); Hyaline Casts Urine 0-2 /LPF (0-2); Squamous Epithelial Cell Urine 0-2 /HPF (0-2); WBC Urine 0-5 /HPF (0-5)
--- NOTE | 2024-10-10 22:42 | ED_ITS ---
HPI - Back Pain/Injury General Chief Complaint: Back Pain/Injury Stated Complaint: 810 lower back pain, fever of 101 Time Seen by Provider: 10/10/24 22:38 Source: patient and family Mode of arrival: EMS Limitations: no limitations History of Present Illness ED Provider: HPI Narrative: patient with history of asthma high cholesterol CHF type 2 diabetes paroxysmal AFib on Coumadin, noticed pain in the upper back since yesterday with fever and chills does have cough for few days mostly dry also complaining of redness of the right eye with discharge patient denied any aspiration or swallowing problems noted to have temperature of 101.9 degrees on arrival no urinary symptoms no kidney stone in the past at 1 time patient's saturation decreased to 89% at room air Related Data Home Medications ?Medication ?Instructions ?Recorded ?Confirmed atorvastatin 20 mg tablet 20 mg PO BEDTIME 05/21/20 09/16/24 blood sugar diagnostic #10 ea 05/21/20 03/22/24 cholecalciferol (vitamin D3) 50 50 mcg PO DAILY 05/21/20 09/16/24 mcg (2,000 unit) tablet fluticasone 500 mcg-salmeterol 50 1 inh inhalation BID 05/21/20 09/16/24 mcg/dose blistr powdr for inhalation fluticasone propionate 50 2 spray intranasal DAILY 05/21/20 09/16/24 mcg/actuation nasal spray,suspension lancets #100 ea 05/21/20 03/22/24 levothyroxine 100 mcg tablet 100 mcg PO DAILY@0600 05/21/20 09/16/24 omeprazole 20 mg capsule,delayed 20 mg PO BID@0630,1630 05/21/20 09/16/24 release pen needle, diabetic 32 gauge x #50 ea 05/21/20 03/22/24 5/32 sertraline 50 mg tablet 50 mg PO DAILY 05/21/20 09/16/24 metoprolol tartrate 25 mg tablet 12.5 mg PO BID 12/17/20 09/16/24 nebulizers (Sidestream misc) #1 ea 05/14/21 03/22/24 multivitamin-iron sulfate 15 1 tab PO QAM 12/15/21 09/16/24 mg-folic acid 400 mcg tablet (Tab-A-Judith Multivitamin w-iron) insulin lispro 100 unit/mL See Protocol subcut TIDAC 06/26/22 09/16/24 subcutaneous pen (Humalog KwikPen (U-100) Insulin) metformin 500 mg tablet,extended 500 mg PO BIDWM 09/20/22 09/16/24 release 24 hr docusate sodium 100 mg capsule 100 mg PO BID 04/19/23 09/16/24 acetaminophen 650 mg 650 mg PO Q8H PRN Pain/Fever 02/09/24 09/16/24 tablet,extended release ciclopirox 0.77 % topical cream 1 appl topical BID 09/16/24 09/16/24 furosemide 20 mg tablet 60 mg PO DAILY 09/16/24 09/16/24 insulin glargine 100 unit/mL (3 30 unit subcut DAILY 09/16/24 09/16/24 mL) subcutaneous pen (Lantus Solostar U-100 Insulin) loratadine 10 mg tablet 10 mg PO DAILY PRN Allergy Symptoms 09/16/24 09/16/24 semaglutide 0.25 mg or 0.5 mg (2 0.5 mg subcut QWEEK 09/16/24 09/16/24 mg/3 mL) subcutaneous pen injector (Ozempic) solifenacin 10 mg tablet 10 mg PO DAILY 09/16/24 09/16/24 warfarin 4 mg tablet 4 - 8 mg PO DAILY 09/16/24 09/16/24 Allergies Allergy/AdvReac Type Severity Reaction Status Date / Time shellfish derived Allergy Severe Hives Verified 10/10/24 20:41 aspirin [Aspirin] Allergy Mild Gastrointestinal Verified 10/10/24 20:41 Upset ibuprofen Allergy Unknown Unknown Verified 10/10/24 20:41 oxycodone [From PERCOCET] Allergy Unknown PALPITATION Verified 10/10/24 20:41 S Robitussin Cold Cough+ Chest Allergy Intermediate hives Uncoded 10/10/24 20:41 SEAFOOD Allergy Intermediate hives Uncoded 10/10/24 20:41 Review of Systems 2 Review of Systems: Yes all other systems are reviewed and are negative [facility] Past Medical History Medical History Hypertension CHF (congestive heart failure) Pneumonia Multiple falls Acute on chronic respiratory failure with hypoxemia Weakness Urgency incontinence Menopause Well woman exam Current use of anticoagulant therapy Stenosis of carotid artery Diabetes type 2, controlled Sepsis Gastroenteritis Hypoxia Pneumonia Urinary incontinence Obesity due to excess calories Type 2 diabetes mellitus with diabetic polyneuropathy Senile cataract of left eye Essential hypertension Hyperlipemia Paroxysmal A-fib Anxiety disorder Hypothyroidism Coronary artery disease History of cerebrovascular accident Osteoarthritis Osteopenia Deep vein thrombosis Hearing loss Surgical History H/O colonoscopy H/O breast surgery S/P IVC filter History of bilateral tubal ligation Family History Family History Father Heart disease CVD (cardiovascular disease) Mother Diabetes Social History Social History Household Members: Family Housing: Apartment Do you presently have visiting nurse or other home services: Yes Alcohol intake: never Patient Tobacco Use Status: Former Tobacco user Tobacco use type: Cigarette Smoked in Last 30 Days: No Use of substances other than those prescribed or required for medical reasons: No Advance Directives: Yes Advance Directives on File: Yes Advance Directives Date on File: 07/01/22 service: No Current occupational status: unemployed Sexual orientation: Straight/Heterosexual Gender identity: Female Physical Exam 2 Vital Signs: Vital Signs: Last Vital Signs Temp 99.3 F 10/11/24 00:15 Pulse 88 10/11/24 00:15 Resp 20 10/11/24 00:15 BP 112/51 L 10/11/24 01:28 Pulse Ox 95 10/11/24 00:18 O2 Del Method Nasal Cannula 10/11/24 00:18 O2 Flow Rate 2 10/11/24 00:18 BMI result Body Mass Index 36.3 Appearance: Alert. Oriented X3. No acute distress. Eyes: inflamed conjunctiva bilateral with right has purulent discharge ENT: Pharynx normal. Oral Mucosa moist Neck: Normal inspection. Neck supple. CVS: Normal heart rate and rhythm. Pulses normal. Respiratory: No respiratory distress. Equal air entry bilateral, bilateral prolonged expiration with diffuse crackles bilaterally Abdomen: Soft and nontender. Bowel sounds are present, no mass palpable, no CVA tenderness Skin: Skin warm and dry. Normal skin color. Normal skin turgor. Extremities: No lower extremity edema. No calf tenderness Neuro: Oriented X 3. No motor deficit. No sensory deficit.No cerebellar signs , cranial nerves II-XII intact Medications Administered Generic Name Dose Route Start Last Admin Trade Name Freq PRN Reason Stop Dose Admin Vancomycin HCl 2,000 mg in 500 mls @ 250 mls/hr 10/11/24 01:30 10/11/24 01:22 Vancomycin/Ns IV 10/11/24 03:29 250 mls/hr ONCE ONE Administration Discontinued Medications Generic Name Dose Route Start Last Admin Trade Name Freq PRN Reason Stop Dose Admin Acetaminophen 650 mg 10/10/24 22:58 10/10/24 23:02 Acetaminophen 325 Mg Tablet PO 10/10/24 22:59 650 mg ONCE ONE Administration Sodium Chloride 1,000 mls @ 999 mls/hr 10/10/24 23:39 10/11/24 01:15 Ns IV 10/11/24 00:39 Infused .Q1H1M ONE Infusion Piperacillin Sod/Tazobactam 50 mls @ 100 mls/hr 10/10/24 23:42 10/11/24 00:32 Sod 3.375 gm/ Sodium Chloride IV 10/11/24 00:11 Infused ONCE ONE Infusion Vancomycin HCl 1,000 mg/ 270 mls @ 270 mls/hr 10/11/24 00:57 10/11/24 01:20 Sodium Chloride IV 10/11/24 01:56 Not Given ONCE ONE Tobramycin Sulfate 2 drop 10/10/24 23:03 10/10/24 23:39 Tobramycin Sulfate 0.3% Judy Op 5 Ml Btl EYE-BOTH 10/10/24 23:04 2 drop ONCE ONE Administration Tramadol HCl 50 mg 10/10/24 23:04 10/10/24 23:39 Tramadol Hcl 50 Mg Tablet PO 10/10/24 23:05 50 mg ONCE ONE Administration Medical Decision Making Medical Decision Making MDM Narrative: patient with bilateral multifocal pneumonia likely aspiration normal WBC count normal lactic acid level also patient was hypoxic on arrival was 89% at room air does have conjunctivitis will admit patient for bilateral multifocal pneumonia Differential Diagnosis Differential Diagnoses: The differential diagnosis associated with the presentation includes pneumonias/CHF/ respiratory failure Admission/Observation Consideration of admission/observation: Escalation of care including admission/observation considered Consult Healthcare Provider Management of the patient was discussed with: Hospitalist Lab Data [facility] Lab Attestation statement: I reviewed the patient's lab results. 10/10/24 23:28 10/10/24 23:28 Labs: Lab Results 10/10/24 10/10/24 10/10/24 Range/Units 21:33 22:58 23:28 WBC 10.7 (4.8-10.8) X10*3/uL RBC 3.87 L (4.20-5.50) X10*6/uL Hgb 12.1 (12.0-16.0) g/dl Hct 35.7 L (37.0-47.0) % MCV 92.2 (80.0-98.0) fL MCH 31.3 (27.0-33.0) pg MCHC 33.9 (31.0-35.0) g/dl RDW 13.2 (11.0-16.0) % Plt Count TNP MPV TNP Immature Gran % (Auto) 0.6 H (0.0-0.4) % Neut % (Auto) 73.7 H (45-73) % Lymph % (Auto) 17.8 L (20-40) % Mclean % (Auto) 6.9 (2-11) % Eos % (Auto) 0.7 (0-4) % Baso % (Auto) 0.3 (0-2) % Lymph # (Auto) 1.9 (1.2-4.9) X10*3/uL Mclean # (Auto) 0.7 (0.1-1.2) X10*3/uL Eos # (Auto) 0.1 (0.0-0.4) X10*3/uL Baso # (Auto) 0.0 (0.0-0.2) X10*3/uL Abs Immat Gran (auto) 0.06 H (0.00-0.03) X10*3/uL Absolute Neuts (auto) 7.9 (2.0-8.3) x10*3/uL Absolute Nucleated RBC 0.000 (0.0-0.012) X10*3/uL Nucleated RBC % (auto) 0.0 (0.0-0.2) /100WBC Smear Tech's Comments VERIFIED Sodium 136 (135-145) mmol/L Potassium 4.1 (3.3-5.1) mmol/L Chloride 101 (96-108) mmol/L Carbon Dioxide 25 (22-29) mmol/L Anion Gap 14 (12-20) BUN 13 (9-16) mg/dL Creatinine 0.90 (0.5-1.4) mg/dL Estim Creat Clear Calc 47.6 Estimated GFR 59 Random Glucose 178 H (60-115) mg/dL Lactic Acid 1.4 (0.5-2.0) mmol/L Calcium 9.4 (8.4-10.2) mg/dL Total Bilirubin 0.8 (0.0-1.0) mg/dL AST 45 H (5-31) U/L ALT 18 (0-31) U/L Alkaline Phosphatase 119 H (39-117) U/L Total Protein 8.3 H (6.5-8.0) g/dL Albumin 3.3 L (3.5-5.0) g/dL Urine Color Dark Yellow Urine Appearance Clear Urine pH 6.0 (5.0-9.0) Ur Specific [place] 1.010 (1.005-1.025) Urine Protein 100 (2+) H (Neg-Trace) mg/dL Urine Glucose (UA) Negative (Negative) mg/dL Urine Ketones Negative (Negative) mg/dL Urine Blood Small (1+) H (Negative) Urine Nitrite Negative (Negative) Ur Leukocyte Esterase Negative (Negative) Urine RBC 3-5 H (0-2) /HPF Urine WBC 0-5 (0-5) /HPF Ur Squamous Epith Cells 0-2 (0-2) /HPF Urine Bacteria None Seen (None Seen) Hyaline Casts 0-2 (0-2) /LPF Influenza Type A (PCR) NEGATIVE (Negative) Influenza Type B (PCR) NEGATIVE (Negative) RSV RNA Qual (PCR) NEGATIVE (Negative) SARS-CoV-2 RNA (RT-PCR) NEGATIVE (Negative) Independent Interpretation I performed an independent interpretation of an: EKG Interpretation: junctional rhythm ventricular rate 81 beats per minute no acute STT wave changes no acute ischemia Discharge Plan Discharge Clinical Impression: Aspiration pneumonia, Conjunctivitis Patient Disposition: Admitted As Inpatient
[2024-10-10 22:55] VITALS: BP 110/88; PULSE 88; RESP 19; O2SAT 94
[2024-10-10 22:58] VITALS: TEMP 38.7
[2024-10-10] MEDS: Acetaminophen 325 MG TABLET 650 MG PO (23:02)
[2024-10-10 23:34] LABS: Eosinophils Absolute Auto 0.1 X10*3/uL (0.0-0.4); Eosinophils Percent Auto 0.7 % (0-4); Imm Gran Pct Auto 0.6 % (0.0-0.4); Mean Corpuscular HGB Conc 33.9 g/dl (31.0-35.0); PLT CLUMP 1; Red Cell Distribution Width 13.2 % (11.0-16.0); SCAN SMEAR FLAG 1
[2024-10-10 23:36] LABS: Basophils Percent Auto 0.3 % (0-2); Hematocrit 35.7 % (37.0-47.0); Hemoglobin 12.1 g/dl (12.0-16.0); Imm Gran Abs Auto 0.06 X10*3/uL (0.00-0.03); Lymphocytes Absolute Auto 1.9 X10*3/uL (1.2-4.9); Lymphocytes Percent Auto 17.8 % (20-40); Mean Corpuscular Hemoglobin 31.3 pg (27.0-33.0); Mean Corpuscular Volume 92.2 fL (80.0-98.0); Monocytes Absolute Auto 0.7 X10*3/uL (0.1-1.2); Monocytes Percent Auto 6.9 % (2-11); Neutrophils Absolute Auto 7.9 x10*3/uL (2.0-8.3); Neutrophils Percent Auto 73.7 % (45-73); Red Blood Count 3.87 X10*6/uL (4.20-5.50)
[2024-10-10 23:39] LABS: Influenza A PCR NEGATIVE (Negative); Influenza B PCR NEGATIVE (Negative); Resp Syncy Virus RNA Qual PCR NEGATIVE (Negative); SARS COV2 PCR INHOUSE NEGATIVE (Negative)
[2024-10-10] MEDS: traMADoL HCL 50 MG TABLET PO (23:39)
[2024-10-10] MEDS: Tobramycin Sulfate 0.3% Sol Op 5 ML BTL 2 DROP EYE-BOTH (23:39)
[2024-10-10 23:43] LABS: MANUAL DIFF FLAG SCAN; White Blood Count 10.7 X10*3/uL (4.8-10.8)
[2024-10-10 23:49] LABS: Lactic Acid 1.4 mmol/L (0.5-2.0)
[2024-10-10 23:55] LABS: Alanine Aminotransferase 18 U/L (0-31); Albumin Level 3.3 g/dL (3.5-5.0); Alkaline Phosphatase 119 U/L (39-117); Anion Gap 14 (12-20); Aspartate Amino Transferase 45 U/L (5-31); Bilirubin Total 0.8 mg/dL (0.0-1.0); Blood Urea Nitrogen 13 mg/dL (9-16); Calcium 9.4 mg/dL (8.4-10.2); Carbon Dioxide 25 mmol/L (22-29); Chloride 101 mmol/L (96-108); Creatinine Clr Calc Pharmacy 47.6; Estimated Glomerular Filt Rate 59; Glucose Random 178 mg/dL (60-115); Potassium 4.1 mmol/L (3.3-5.1); Sodium 136 mmol/L (135-145); Total Protein 8.3 g/dL (6.5-8.0)
[2024-10-10] MEDS: Piperacillin Sodium/Tazobactam 3.375 GM in 0.9 % Sodium Chloride 50 ML IV (23:55)
[2024-10-10] MEDS: 0.9 % Sodium Chloride 1,000 ML 999 ML IV (23:55)
[2024-10-10 23:58] LABS: SLIDE REVIEW VERIFIED
[2024-10-11] VITALS (12 sets, daily range): BP systolic 102–141; BP diastolic 47–66; PULSE 75–93; RESP 16–24; TEMP 36.8–37.8; O2SAT 89–100; BMI 36.4
--- NOTE | 2024-10-11 | MHC.EDTECH ---
This tech took over care of pt at 2300,rounded and introduced self to pt, vitals taken, pt sats were 89% to 91% on room air, RN placed pt on 2L VNC, pt is 95% on 2L @ this time,pt repositioned to comfort,call alvarenga in reach
--- NOTE | 2024-10-11 01:13 | ECG_ITS ---
Test Reason : ? AFIB Blood Pressure : */* mmHG Vent. Rate : 81 BPM Atrial Rate : * BPM P-R Int : * ms QRS Dur : 92 ms QT Int : 402 ms P-R-T Axes : * 59 97 degrees QTcB Int : 466 ms Probably normal sinus rhythm with long MA Nonspecific ST and T wave abnormality Abnormal ECG When compared with ECG of 21-Sep-2024 06:15, increase in MA Referred By: Michael Jain Electronically Signed By: MANE MULLIGAN
[2024-10-11] MEDS: vancomycin/NS 2,000 MG/500 ML PLAST..BAG 250 MG IV (01:22)
--- NOTE | 2024-10-11 01:29 | MHC.EDTECH ---
Patient placed on the shelter monitor, EKG taken per order and signed by provider, MRSA swab obtained and sent to lab.
[2024-10-11 01:45] LABS: Prothrombin Time 85.3 SEC (10.9-12.4)
[2024-10-11 01:52] LABS: INTERNATIONAL NORM RATIO 7.3 (0.9-1.1)
--- NOTE | 2024-10-11 02:20 | MHC.EDTECH ---
Rounds and belongings list completed,copy placed in chart
--- NOTE | 2024-10-11 02:42 | P.HPHOSP_ITS ---
History of Present Illness Date of Service: 10/11/24 Chief Complaint: Cough and shortness of breath 89-year-old female with a past medical history of HTN, HLD, dm, CAD, CHF, asthma, GERD, , DVT status post IVC filter, on Coumadin, diabetes, HX CVA, osteoarthritis, hypothyroidism presented to the hospital today with a chief complaint of cough and shortness of breath. Patient reports that over the past 2 days she has been having cough and shortness of breath. Reports having subjective fevers. Denies any sick contacts. Also reports having chest discomfort. Denies any chest pain at the time of my interview. Denies any nausea vomiting or diarrhea. Denies any urinary symptoms. Review of all other systems is negative except mentioned above ER course: Per ER team, patient was mildly hypoxic on presentation, placed on supplemental oxygen; chest x-ray showed findings concerning for multifocal pneumonia. Given antibiotics. EKG nonischemic. [facility] Medical History Hypertension CHF (congestive heart failure) Pneumonia Multiple falls Acute on chronic respiratory failure with hypoxemia Weakness Urgency incontinence Menopause Well woman exam Current use of anticoagulant therapy Stenosis of carotid artery Diabetes type 2, controlled Sepsis Gastroenteritis Hypoxia Pneumonia Urinary incontinence Obesity due to excess calories Type 2 diabetes mellitus with diabetic polyneuropathy Senile cataract of left eye Essential hypertension Hyperlipemia Paroxysmal A-fib Anxiety disorder Hypothyroidism Coronary artery disease History of cerebrovascular accident Osteoarthritis Osteopenia Deep vein thrombosis Hearing loss Family History Father Heart disease CVD (cardiovascular disease) Mother Diabetes Surgical History H/O colonoscopy H/O breast surgery S/P IVC filter History of bilateral tubal ligation Social History Household Members: Family Housing: Apartment Do you presently have visiting nurse or other home services: Yes Alcohol intake: never Patient Tobacco Use Status: Former Tobacco user Tobacco use type: Cigarette Smoked in Last 30 Days: No Use of substances other than those prescribed or required for medical reasons: No Advance Directives: Yes Advance Directives on File: Yes Advance Directives Date on File: 07/01/22 service: No Current occupational status: unemployed Sexual orientation: Straight/Heterosexual Gender identity: Female Meds Allergies Allergy/AdvReac Type Severity Reaction Status Date / Time shellfish derived Allergy Severe Hives Verified 10/10/24 20:41 aspirin [Aspirin] Allergy Mild Gastrointestinal Verified 10/10/24 20:41 Upset ibuprofen Allergy Unknown Unknown Verified 10/10/24 20:41 oxycodone [From PERCOCET] Allergy Unknown PALPITATION Verified 10/10/24 20:41 S Robitussin Cold Cough+ Chest Allergy Intermediate hives Uncoded 10/10/24 20:41 SEAFOOD Allergy Intermediate hives Uncoded 10/10/24 20:41 Active Medications: Current Medications Acetaminophen (Acetaminophen 325 Mg Tablet) 650 mg PO Q6H PRN PRN Reason: Pain, Mild 1-3,fever,headache Albuterol/Ipratropium (Albuterol/Iprat 2.5/0.5mg 3 Ml Ampul.Neb) 3 ml INHALE Q4H PRN PRN Reason: Shortness of Breath/Wheezing Benzonatate (Benzonatate 100 Mg Capsule) 100 mg PO TID PRN PRN Reason: Cough Calcium Carbonate (Calcium Carbonate 750 Mg Tab.Chew) 750 mg PO Q4H PRN PRN Reason: Heartburn Dextrose (Dextrose 50 % 25 Gm/50 Ml Syringe) 25 gm IVPUSH Q15M PRN; Protocol PRN Reason: per Hypoglycemia Standing Ord. Glucose (Glucose Gel 15 Gm Gel..Gram.) 15 gm PO Q15M PRN; Protocol PRN Reason: per Hypoglycemia Standing Ord. Piperacillin Sod/Tazobactam (Sod 3.375 gm/ Sodium Chloride) 50 mls @ 100 mls/hr IV Q6H [facility] Vancomycin HCl (Vancomycin/Ns) 2,000 mg in 500 mls @ 250 mls/hr IV ONCE ONE Stop: 10/11/24 03:29 Last Admin: 10/11/24 01:22 Dose: 250 mls/hr Insulin Human Lispro (Insulin Lispro 100 Unit/Ml 3 Ml Vial) 0 unit SUBCUT QIDACHS [facility]; Protocol Levothyroxine Sodium (Levothyroxine Sodium 100 Mcg Tablet) 100 mcg PO DAILY@0600 [facility] Magnesium Hydroxide (Milk Of Magnesia 30 Ml Oral.Susp) 30 ml PO DAILY PRN PRN Reason: Constipation Melatonin (Melatonin 3 Mg Tablet) 6 mg PO BEDTIME PRN PRN Reason: Insomnia Pharmacy Consult (Consult Rx Vancomycin Dosing) 1 each MISCELLANE DAILY PRN PRN Reason: Consult order Sertraline HCl (Sertraline Hcl 50 Mg Tablet) 50 mg PO DAILY GER Sodium Chloride (0.9 % Sodium Chloride Flush 3 Ml Syringe) 3 ml IVFLUSH QSHIFT [facility] Home Medications ?Medication ?Instructions ?Recorded ?Confirmed ?Last Taken ?Type atorvastatin 20 mg tablet 20 mg PO BEDTIME 05/21/20 09/16/24 02/08/24 History blood sugar diagnostic #10 ea 05/21/20 03/22/24 Unknown History cholecalciferol (vitamin D3) 50 50 mcg PO DAILY 05/21/20 09/16/24 02/08/24 History mcg (2,000 unit) tablet fluticasone 500 mcg-salmeterol 50 1 inh inhalation BID 05/21/20 09/16/24 02/08/24 History mcg/dose blistr powdr for inhalation fluticasone propionate 50 2 spray intranasal DAILY 05/21/20 09/16/24 02/08/24 History mcg/actuation nasal spray,suspension lancets #100 ea 05/21/20 03/22/24 Unknown History levothyroxine 100 mcg tablet 100 mcg PO DAILY@0600 05/21/20 09/16/24 02/08/24 History omeprazole 20 mg capsule,delayed 20 mg PO BID@0630,1630 05/21/20 09/16/24 02/08/24 History release pen needle, diabetic 32 gauge x #50 ea 05/21/20 03/22/24 Unknown History sertraline 50 mg tablet 50 mg PO DAILY 05/21/20 09/16/24 02/08/24 History metoprolol tartrate 25 mg tablet 12.5 mg PO BID 12/17/20 09/16/24 02/08/24 History nebulizers (Sidestream misc) #1 ea 05/14/21 03/22/24 Unknown History multivitamin-iron sulfate 15 1 tab PO QAM 12/15/21 09/16/24 02/08/24 History mg-folic acid 400 mcg tablet (Tab-A-Judith Multivitamin w-iron) insulin lispro 100 unit/mL See Protocol subcut TIDAC 06/26/22 09/16/24 02/08/24 History subcutaneous pen (Humalog KwikPen (U-100) Insulin) metformin 500 mg tablet,extended 500 mg PO BIDWM 09/20/22 09/16/24 02/08/24 History release 24 hr docusate sodium 100 mg capsule 100 mg PO BID 04/19/23 09/16/24 Unknown History acetaminophen 650 mg 650 mg PO Q8H PRN Pain/Fever 02/09/24 09/16/24 Unknown History tablet,extended release ciclopirox 0.77 % topical cream 1 appl topical BID 09/16/24 09/16/24 Unknown History furosemide 20 mg tablet 60 mg PO DAILY 09/16/24 09/16/24 Unknown History insulin glargine 100 unit/mL (3 30 unit subcut DAILY 09/16/24 09/16/24 Unknown History mL) subcutaneous pen (Lantus Solostar U-100 Insulin) loratadine 10 mg tablet 10 mg PO DAILY PRN Allergy Symptoms 09/16/24 09/16/24 Unknown History semaglutide 0.25 mg or 0.5 mg (2 0.5 mg subcut QWEEK 09/16/24 09/16/24 Unknown History mg/3 mL) subcutaneous pen injector (Ozempic) solifenacin 10 mg tablet 10 mg PO DAILY 09/16/24 09/16/24 Unknown History warfarin 4 mg tablet 4 - 8 mg PO DAILY 09/16/24 09/16/24 Unknown History Physical Exam 2 Vital Signs and Narrative: Vital Signs: Last Vital Signs Temp 99.3 F 10/11/24 00:15 Pulse 88 10/11/24 00:15 Resp 20 10/11/24 00:15 BP 112/51 L 10/11/24 01:28 Pulse Ox 95 10/11/24 00:18 O2 Del Method Nasal Cannula 10/11/24 00:18 O2 Flow Rate 2 10/11/24 00:18 BMI result Body Mass Index 36.3 Gen: Appears be in no acute distress HEENT: NCAT, Moist mucosa. Pulmonary: Coarse breath sounds CVS: Normal S1-S2 Abdomen: BS+, Soft, Nontender Extremities: Warm well perfused Neuro: Alert and awake. Results Labs 10/10/24 23:28 10/10/24 23:28 Labs: Laboratory Results - last 24 hr 10/10/24 10/10/2425 21:33 22:58 23:28 MCV 92.2 MCH 31.3 MCHC 33.9 RDW 13.2 Plt Count TNP MPV TNP Immature Gran % (Auto) 0.6 H Neut % (Auto) 73.7 H Lymph % (Auto) 17.8 L [place] % (Auto) 6.9 Eos % (Auto) 0.7 Baso % (Auto) 0.3 Lymph # (Auto) 1.9 [place] # (Auto) 0.7 Eos # (Auto) 0.1 Baso # (Auto) 0.0 Abs Immat Gran (auto) 0.06 H Absolute Neuts (auto) 7.9 Absolute Nucleated RBC 0.000 Nucleated RBC % (auto) 0.0 Smear Tech's Comments VERIFIED PT INR Anion Gap 14 Estim Creat Clear Calc 47.6 Estimated GFR 59 Random Glucose 178 H Lactic Acid 1.4 Calcium 9.4 Total Bilirubin 0.8 AST 45 H ALT 18 Alkaline Phosphatase 119 H Total Protein 8.3 H Albumin 3.3 L Urine Color Dark Yellow Urine Appearance Clear Urine pH 6.0 Ur Specific [place] 1.010 Urine Protein 100 (2+) H Urine Glucose (UA) Negative Urine Ketones Negative Urine Blood Small (1+) H Urine Nitrite Negative Ur Leukocyte Esterase Negative Urine RBC 3-5 H Urine WBC 0-5 Ur Squamous Epith Cells 0-2 Urine Bacteria None Seen Hyaline Casts 0-2 Influenza Type A (PCR) NEGATIVE Influenza Type B (PCR) NEGATIVE RSV RNA Qual (PCR) NEGATIVE SARS-CoV-2 RNA (RT-PCR) NEGATIVE 10/11/24 01:28 MCV MCH MCHC RDW Plt Count MPV Immature Gran % (Auto) Neut % (Auto) Lymph % (Auto) [place] % (Auto) Eos % (Auto) Baso % (Auto) Lymph # (Auto) [place] # (Auto) Eos # (Auto) Baso # (Auto) Abs Immat Gran (auto) Absolute Neuts (auto) Absolute Nucleated RBC Nucleated RBC % (auto) Smear Tech's Comments PT 85.3 H D INR 7.3 H* D Anion Gap Estim Creat Clear Calc Estimated GFR Random Glucose Lactic Acid Calcium Total Bilirubin AST ALT Alkaline Phosphatase Total Protein Albumin Urine Color Urine Appearance Urine pH Ur Specific [place] Urine Protein Urine Glucose (UA) Urine Ketones Urine Blood Urine Nitrite Ur Leukocyte Esterase Urine RBC Urine WBC Ur Squamous Epith Cells Urine Bacteria Hyaline Casts Influenza Type A (PCR) Influenza Type B (PCR) RSV RNA Qual (PCR) SARS-CoV-2 RNA (RT-PCR) Assessment and Plan (1) Aspiration pneumonia: Qualifiers: Aspiration pneumonia type: unspecified Lung location: unspecified part of lung Laterality: unspecified laterality Qualified Code(s): J69.0 - Pneumonitis due to inhalation of food and vomit Status: Acute Plan 89-year-old female with a past medical history of HTN, HLD, dm, CAD, CHF, asthma, GERD, , DVT status post IVC filter, on Coumadin, diabetes, HX CVA, osteoarthritis, hypothyroidism presented to the hospital today with a chief complaint of cough and shortness of breath. Admitted for following Hypoxia: Pneumonia: Suspected aspiration versus Hcap Patient placed on supplemental oxygen. Not in respiratory distress. Chest x-ray concerning for multifocal pneumonia. 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 Trending pulse oximetry 1 ready for discharge CHF: ProBNP pending. Noted trace pedal edema. Diabetes: Hold home regimen. Insulin sliding scale. Monitor POC glucose and adjust insulins accordingly. Supratherapeutic INR: INR noted to be 7.3 on presentation. Patient denies any signs of bleeding. Follow up INR in a.m.. Hold home Coumadin for now. Paroxysmal AFib: Rate controlled. Hypothyroidism: Continue home levothyroxine DVT prophylaxis: Patient on Coumadin Code status: Full code Quality Stroke Does the patient have a stroke diagnosis?: Yes Reason for No Anti-thrombotic by Day Two: N/A - Med Ordered VTE Prior VTE?: No VTE Risk Level:: Medical - moderate - high VTE Device Contraindication: Patient Refused VTE Drug Contraindication: N/A - Med Ordered
[2024-10-11 03:20] LABS: B Type Natriuretic Peptide 486 pg/mL (<100)
--- NOTE | 2024-10-11 03:23 | MHC.EDTECH ---
Rounds and vitals completed, pt is resting quietly appears comfortable,call alvarenga in reach
[2024-10-11 03:31] LABS: Troponin-I High Sensitivity 57.8 ng/L (<3.5-17.0)
--- NOTE | 2024-10-11 03:39 | PC.NURSE ---
Erik texted hospitalist results of troponin
[2024-10-11] MEDS: Levothyroxine Sodium 100 MCG TABLET PO (05:56)
[2024-10-11] MEDS: Piperacillin Sodium/Tazobactam 3.375 GM in 0.9 % Sodium Chloride 50 ML IV ×3 (05:56→18:45)
--- NOTE | 2024-10-11 06:00 | MHC.EDTECH ---
Patient was incont of a large amount of urine,yola-care and bed linen changed, pure-wick applied to keep pt clean and dry,pt tolerated well.
[2024-10-11 06:10] LABS: Mean Corpuscular Volume 94.2 fL (80.0-98.0); PLT CLUMP 1; Red Cell Distribution Width 13.2 % (11.0-16.0)
[2024-10-11 06:12] LABS: Hemoglobin 11.3 g/dl (12.0-16.0); Mean Corpuscular HGB Conc 33.2 g/dl (31.0-35.0); Mean Corpuscular Hemoglobin 31.3 pg (27.0-33.0); Red Blood Count 3.61 X10*6/uL (4.20-5.50)
[2024-10-11 06:18] LABS: Prothrombin Time 81.1 SEC (10.9-12.4)
[2024-10-11 06:20] LABS: White Blood Count 10.7 X10*3/uL (4.8-10.8)
[2024-10-11 06:25] LABS: Alanine Aminotransferase 16 U/L (0-31); Alkaline Phosphatase 111 U/L (39-117); Anion Gap 11 (12-20); Aspartate Amino Transferase 29 U/L (5-31); Bilirubin Total 0.8 mg/dL (0.0-1.0); Blood Urea Nitrogen 13 mg/dL (9-16); Calcium 8.9 mg/dL (8.4-10.2); Carbon Dioxide 27 mmol/L (22-29); Chloride 105 mmol/L (96-108); Creatinine Clr Calc Pharmacy 52.3; Estimated Glomerular Filt Rate > 60; Glucose Random 96 mg/dL (60-115); Potassium 3.4 mmol/L (3.3-5.1); Sodium 140 mmol/L (135-145); Total Protein 7.2 g/dL (6.5-8.0)
[2024-10-11 06:30] LABS: INTERNATIONAL NORM RATIO 6.9 (0.9-1.1)
[2024-10-11 07:15] LABS: Glucose, Whole Blood 93 mg/dL (60-115)
--- NOTE | 2024-10-11 07:58 | PHA.PROG ---
Admission Date/Time: October 11, 2024 00:59 Indication: RESPIRATORY Weight in k kg Serum Creatinine - Last 168 Hours 10/10/24 10/11/24 23:28 05:52 Creatinine 0.90 0.82 Estimated CrCl and GFR - Last 168 Hours 10/10/24 10/11/24 23:28 05:52 Estim Creat Clear Calc 47.6 52.3 Estimated GFR 59 > 60 Vancomycin Loading Dose: 1999 Current Vancomycin Dosing Regimen: 1500 q24h Vancomycin Monitoring using AUC goal of 400 - 600 range with trough as surrogate marker: 506 Date and Time for next Vancomycin Level to be drawn: 10/12 2099 Pharmacist Comments on Vancomycin Plan: Patient is older, aged 89, will go with Q24H dosing as I do not think the patient will be able to properly clear Q12H dosing. However patient reiceved load overnight at 1 am, will round next dose and trough to when pharmacy is in house for monitoring. Patients scr went from 0.9 to 0.82 within hours, will make dose slightly sooner than 24 hours, next dose tonight at 2300, level tomorrow 10/12 @2100 Vancomycin dosing will take advantage of [employer] as a clinical decision support tool that uses Bayesian modeling to calculate individual patient's pharmacokinetic parameters and forecast the patient's drug concentration time course with the target goal AUC 24 range of 400 - 600 mg/L/hr.
--- NOTE | 2024-10-11 08:55 | PHA.MEDREC ---
Addendum entered by Moira Alvarez RPh 10/11/24 09:21: Reviewed by [facility]. Recent claims show Metformin ER, but recent discharge packet shows Metformin IR. Left med rec with metformin IR. Original Note: Pharmacy Consult ? Medication Reconciliation Pharmacy has completed the medication reconciliation. Spoke to patient daughter Catarina over the phone to confirm med list, however she didn't know what medication her mom takes. Catarina couldn't give me any information on who would know what medications patient takes. Per recent visit notes from case management, patient has a visiting nurse Artemio [phone]. Called nurse Artemio and states he is still taking care of patient. Artemio was able to confirm all of patient medications. Artemio stated that patient was just discharged from [facility] 09/21/24 and there was no change in medication since. Artemio confirmed Lantus Solostar U-100 26 units daily and Humalog KwikPen is per sliding scale TID, Ozempic 0.5 mg is every Monday, last dose was 10/04/24, Warfarin current dose is 2 mg on Monday and 4 mg all other days, Till next INR date mon10/15/24.
[2024-10-11 09:26] LABS: Troponin-I High Sensitivity 59.5 ng/L (<3.5-17.0)
--- NOTE | 2024-10-11 10:10 | MHC.SL.SWA ---
Speech Pathologist Impression: Risk of Aspiration, Oral Phase Dysphagia Risk of Aspiration Due to: Neurological Condition History of Pneumonia Dysphasia Diet Status: DOWNGRADE to NDD3/THIN Liquid Consistency and Strategies for Safe Swallow: Liquid Intake Recommendation: Thin Liquid Intake Strategies: Small Sips No Straws Solid Food Consistency: Dietary Recommendations: Chopped/Advanced (NDD3) Additional Modifications to Solid Foods: Patient presents with mild oral phase dysphagia d/t sparse dentition, with prolonged mastication and pocketing of solids. Recommend DOWNGRADE diet to CHOPPED/ADVANCED (NDD3) with THIN liquids, pills WHOLE in LIQUID. Patient is able to feed herself, but may need cues to utilize strategies: take small bites, chew food well, clear oral cavity before taking next bite, alternate bites with sips of liquid to clear pocketed material. COMMUNITY DIETITIAN to f/u 1-2x. Oral Medication Intake: Whole with Liquid Please contact the pharmacy regarding appropriate crushable or liquid drug formulations that are available whenever modified delivery is recommended. Compensatory Strategies and Precautions to be Taken for Safe Swallow: Sitting Upright (90 deg) Double Swallow No Straw Small Bites and Sips Alternate Liquids/Solids Rate of Ingestion Change Supervision While Eating and Drinking for Safe Swallow: Total Supervision (1:1) Foods to Avoid: Tough, difficult to chew solids Swallowing Recommended Treatments: Compens. Strategy Educat. Recommendation for Speech: Inpatient Speech Therapy Frequency/Duration: M-F Date Range for Service Req: Timeline to reassess: PRN Combination Window Installer Clinican/Clinical Fellow: No Supervisory Statement: I have reviewed and agree with the student/clinical fellow's documentation: N/A Speech Language Pathologist: Tonja Levy M.A., CCC-COMMUNITY DIETITIAN
--- NOTE | 2024-10-11 10:37 | P.PNIM_ITS ---
Subjective Subjective Date of Service: 10/11/24 Interval History: sob Physical Exam 2 Vital Signs: Vital Signs: Last Vital Signs Temp 98.3 F 10/11/24 07:25 Pulse 90 10/11/24 07:25 Resp 24 H 10/11/24 07:25 BP 122/57 L 10/11/24 07:25 Pulse Ox 96 10/11/24 07:25 O2 Del Method Nasal Cannula 10/11/24 07:25 O2 Flow Rate 2 10/11/24 07:25 BMI result Body Mass Index 36.3 General: AO X 3, no acute distress Resp: Crackles bilateral, no accessory muscles used CVS: S1,S2,RRR GI: soft, non tender, non distended Neuro: motor grossly intact, alert Psych: appropriate affect, appropriate insight Objective Data Active Medications Acetaminophen (Acetaminophen 325 Mg Tablet) 650 mg PO Q6H PRN PRN Reason: Pain, Mild 1-3,fever,headache Albuterol/Ipratropium (Albuterol/Iprat 2.5/0.5mg 3 Ml Ampul.Neb) 3 ml INHALE Q4H PRN PRN Reason: Shortness of Breath/Wheezing Atorvastatin Calcium (Atorvastatin Calcium 20 Mg Tablet) 20 mg PO BEDTIME GER Benzonatate (Benzonatate 100 Mg Capsule) 100 mg PO TID PRN PRN Reason: Cough Calcium Carbonate (Calcium Carbonate 750 Mg Tab.Chew) 750 mg PO Q4H PRN PRN Reason: Heartburn Dextrose (Dextrose 50 % 25 Gm/50 Ml Syringe) 25 gm IVPUSH Q15M PRN; Protocol PRN Reason: per Hypoglycemia Standing Ord. Fluticasone/Vilanterol (Fluticasone/Vilanterol 200/25 Blst.W.Dev) 1 puff INHALE RDAILY GER Furosemide (Furosemide 20 Mg Tablet) 60 mg PO DAILY GER; Protocol Glucose (Glucose Gel 15 Gm Gel..Gram.) 15 gm PO Q15M PRN; Protocol PRN Reason: per Hypoglycemia Standing Ord. Piperacillin Sod/Tazobactam (Sod 3.375 gm/ Sodium Chloride) 50 mls @ 100 mls/hr IV Q6H [facility] Last Infusion: 10/11/24 07:30 Dose: Infused Documented By: BRETT Vancomycin HCl 1,250 mg/ (Sodium Chloride) 250 mls @ 166.667 mls/hr IV Q24H [facility] Insulin Glargine (Insulin Glargine,Hum.Rec.Anlog 100 Unit/Ml 10 Ml Vial) 26 unit SUBCUT DAILY [facility] Insulin Human Lispro (Insulin Lispro 100 Unit/Ml 3 Ml Vial) 0 unit SUBCUT QIDACHS [facility]; Protocol Last Admin: 10/11/24 08:17 Dose: Not Given Documented By: BRETT Non-Admin Reason: No Insulin Coverage Levothyroxine Sodium (Levothyroxine Sodium 100 Mcg Tablet) 100 mcg PO DAILY@0600 [facility] Last Admin: 10/11/24 05:56 Dose: 100 mcg Documented By: ARINAOPEJohn Magnesium Hydroxide (Milk Of Magnesia 30 Ml Oral.Susp) 30 ml PO DAILY PRN PRN Reason: Constipation Melatonin (Melatonin 3 Mg Tablet) 6 mg PO BEDTIME PRN PRN Reason: Insomnia Metoprolol Tartrate (Metoprolol Tartrate 12.5 Mg Halftab) 12.5 mg PO BID [facility]; Protocol Omeprazole (Omeprazole 20 Mg Capsule.Dr) 20 mg PO BID@0630,1630 [facility] Pharmacy Consult (Consult Rx Vancomycin Dosing) 1 each MISCELLANE DAILY PRN PRN Reason: Consult order Sertraline HCl (Sertraline Hcl 50 Mg Tablet) 50 mg PO DAILY [facility] Sodium Chloride (0.9 % Sodium Chloride Flush 3 Ml Syringe) 3 ml IVFLUSH QSHIFT [facility] Vitamin D (Cholecalciferol (Vitamin D3) 25 Mcg Tablet) 50 mcg PO DAILY [facility] Labs 10/11/24 05:52 10/11/24 05:52 Labs: Laboratory Results - last 24 hr 10/10/24 10/10/24 10/10/24 21:33 22:58 23:28 MCV 92.2 MCH 31.3 MCHC 33.9 RDW 13.2 Plt Count TNP MPV TNP Immature Gran % (Auto) 0.6 H Neut % (Auto) 73.7 H Lymph % (Auto) 17.8 L [place] % (Auto) 6.9 Eos % (Auto) 0.7 Baso % (Auto) 0.3 Lymph # (Auto) 1.9 [place] # (Auto) 0.7 Eos # (Auto) 0.1 Baso # (Auto) 0.0 Abs Immat Gran (auto) 0.06 H Absolute Neuts (auto) 7.9 Absolute Nucleated RBC 0.000 Nucleated RBC % (auto) 0.0 Smear Tech's Comments VERIFIED PT INR Anion Gap 14 Estim Creat Clear Calc 47.6 Estimated GFR 59 POC Glucose Random Glucose 178 H Lactic Acid 1.4 Calcium 9.4 Total Bilirubin 0.8 AST 45 H ALT 18 Alkaline Phosphatase 119 H B-Natriuretic Peptide Total Protein 8.3 H Albumin 3.3 L Urine Color Dark Yellow Urine Appearance Clear Urine pH 6.0 Ur Specific [place] 1.010 Urine Protein 100 (2+) H Urine Glucose (UA) Negative Urine Ketones Negative Urine Blood Small (1+) H Urine Nitrite Negative Ur Leukocyte Esterase Negative Urine RBC 3-5 H Urine WBC 0-5 Ur Squamous Epith Cells 0-2 Urine Bacteria None Seen Hyaline Casts 0-2 Influenza Type A (PCR) NEGATIVE Influenza Type B (PCR) NEGATIVE RSV RNA Qual (PCR) NEGATIVE SARS-CoV-2 RNA (RT-PCR) NEGATIVE 10/11/24 10/11/24 10/11/24 01:28 02:54 05:52 MCV 94.2 MCH 31.3 MCHC 33.2 RDW 13.2 Plt Count TNP MPV Not Reportable Immature Gran % (Auto) Neut % (Auto) Lymph % (Auto) [place] % (Auto) Eos % (Auto) Baso % (Auto) Lymph # (Auto) [place] # (Auto) Eos # (Auto) Baso # (Auto) Abs Immat Gran (auto) Absolute Neuts (auto) Absolute Nucleated RBC 0.000 Nucleated RBC % (auto) 0.0 Smear Tech's Comments PT 85.3 H D 81.1 H INR 7.3 H* D 6.9 H* Anion Gap 11 L Estim Creat Clear Calc 52.3 Estimated GFR > 60 POC Glucose Random Glucose 96 Lactic Acid Calcium 8.9 Total Bilirubin 0.8 AST 29 ALT 16 Alkaline Phosphatase 111 B-Natriuretic Peptide 486 H Total Protein 7.2 Albumin 3.0 L Urine Color Urine Appearance Urine pH Ur Specific [place] Urine Protein Urine Glucose (UA) Urine Ketones Urine Blood Urine Nitrite Ur Leukocyte Esterase Urine RBC Urine WBC Ur Squamous Epith Cells Urine Bacteria Hyaline Casts Influenza Type A (PCR) Influenza Type B (PCR) RSV RNA Qual (PCR) SARS-CoV-2 RNA (RT-PCR) 10/11/24 07:12 MCV MCH MCHC RDW Plt Count MPV Immature Gran % (Auto) Neut % (Auto) Lymph % (Auto) [place] % (Auto) Eos % (Auto) Baso % (Auto) Lymph # (Auto) [place] # (Auto) Eos # (Auto) Baso # (Auto) Abs Immat Gran (auto) Absolute Neuts (auto) Absolute Nucleated RBC Nucleated RBC % (auto) Smear Tech's Comments PT INR Anion Gap Estim Creat Clear Calc Estimated GFR POC Glucose 93 Random Glucose Lactic Acid Calcium Total Bilirubin AST ALT Alkaline Phosphatase B-Natriuretic Peptide Total Protein Albumin Urine Color Urine Appearance Urine pH Ur Specific [place] Urine Protein Urine Glucose (UA) Urine Ketones Urine Blood Urine Nitrite Ur Leukocyte Esterase Urine RBC Urine WBC Ur Squamous Epith Cells Urine Bacteria Hyaline Casts Influenza Type A (PCR) Influenza Type B (PCR) RSV RNA Qual (PCR) SARS-CoV-2 RNA (RT-PCR) 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, history of CVA, osteoarthritis, hypothyroid presented with shortness of breath Acute hypoxic respiratory failure secondary to pneumonia 3 weeks after influenza Concern for MRSA and g negatives Continue vancomycin and Zosyn Follow-up MRSA swab Wean O2 as tolerated Chronic systolic CHF Follow up cardio eval Continue metoprolol, Lasix Diabetes Basal bolus insulin History of DVT On Coumadin, supratherapeutic INR monitor CAD Coumadin, statin History of CVA Coumadin, statin Hypothyroid Levothyroxine Full code reason for continued hospitalization: Hypoxia Quality Stroke Does the patient have a stroke diagnosis?: Yes Reason for No Anti-thrombotic by Day Two: N/A - Med Ordered VTE Prior VTE?: No VTE Risk Level:: Medical - moderate - high VTE Device Contraindication: Patient Refused VTE Drug Contraindication: N/A - Med Ordered
[2024-10-11 11:22] LABS: MRSA Nasal PCR NEGATIVE (Negative); SA Nasal PCR POSITIVE (Negative)
--- NOTE | 2024-10-11 11:23 | PM.CNCAR ---
History of Present Illness History of Present Illness Date of Service: 10/11/24 Chief complaint: PNA Narrative: This is a cardiology consultation regarding chest pain but I am not entirely clear if she had chest pain or not. Per admission documentation, it seems she came for cough and shortness of breath. Subjective fevers. In that note, there is mention of denying chest pain. I also directly clarify with the patient as well as son and they are denying chest pain. Hence not entirely clear why this mention of chest pain in the consult. Otherwise, it appears that she is currently diagnosed with pneumonia and treated for the same with antibiotics. Not having any other cardiac complaints at this time. I have last seen her in the clinic in 2022. Based on that note, she has paroxysmal atrial fibrillation as well as conduction system disease. Review of Systems Review of Systems: Yes all other systems are reviewed and are negative Constitutional: Constitutional: Reports as per HPI and Reports no additional constitutional complaints Eyes: Eyes: Reports as per HPI and Denies no additional eye complaints ENT: Denies system reviewed and no additional complaints, except as documented and Reports as per HPI Cardiovascular: Cardiovascular: Reports as per HPI, Reports no additional cardiovascular complaints, Denies acrocyanosis, Denies cool extremities, Denies chest pain, Denies leg edema, Denies lightheadedness, Denies palpitations and Reports dyspnea Respiratory: Respiratory: Reports as per HPI, Denies no additional respiratory complaints, Reports cough and Reports dyspnea Gastrointestinal: Gastrointestinal: Reports as per HPI and Denies no additional gastrointestinal complaints Genitourinary: Genitourinary: Reports as per HPI Musculoskeletal: Musculoskeletal: Reports no additional musculoskeletal complaints and Reports as per HPI Integumentary/Breasts: Skin/Breast: Reports system reviewed and no additional complaints, except as docu Neurologic: Reports system reviewed and no additional complaints, except as documented and Reports as per HPI Psychiatric: Psychiatric: Reports no additional psychiatric complaints and Reports as per HPI Endocrine: Endocrine: Reports no additional endocrine complaints, Reports as per HPI and Denies palpitations Hematologic/Lymphatic: Hematologic/Lymphatic: Reports no additional hematologic/lymphatic complaints and Reports as per HPI Allergic/Immunologic: Allergic/Immunologic: Reports no additional allergic/immunologic complaints and Reports as per HPI [facility] Past Medical History Medical History (Updated 10/11/24 @ 11:27 by Kayode Bradshaw MD) Hypertension CHF (congestive heart failure) Pneumonia Multiple falls Acute on chronic respiratory failure with hypoxemia Weakness Urgency incontinence Menopause Well woman exam Current use of anticoagulant therapy Stenosis of carotid artery Diabetes type 2, controlled Sepsis Gastroenteritis Hypoxia Pneumonia Urinary incontinence Obesity due to excess calories Type 2 diabetes mellitus with diabetic polyneuropathy Senile cataract of left eye Essential hypertension Hyperlipemia Paroxysmal A-fib Anxiety disorder Hypothyroidism Coronary artery disease History of cerebrovascular accident Osteoarthritis Osteopenia Deep vein thrombosis Hearing loss Family History Family History Father Heart disease CVD (cardiovascular disease) Mother Diabetes Surgical History Surgical History H/O colonoscopy H/O breast surgery S/P IVC filter History of bilateral tubal ligation Social History Social History Household Members: Family Housing: Apartment Do you presently have visiting nurse or other home services: Yes Alcohol intake: never Patient Tobacco Use Status: Former Tobacco user Tobacco use type: Cigarette Smoked in Last 30 Days: No Use of substances other than those prescribed or required for medical reasons: No Advance Directives: Yes Advance Directives on File: Yes Advance Directives Date on File: 07/01/22 service: No Current occupational status: unemployed Sexual orientation: Straight/Heterosexual Gender identity: Female Meds Allergies Allergy/AdvReac Type Severity Reaction Status Date / Time shellfish derived Allergy Severe Hives Verified 10/10/24 20:41 aspirin [Aspirin] Allergy Mild Gastrointestinal Verified 10/10/24 20:41 Upset ibuprofen Allergy Unknown Unknown Verified 10/10/24 20:41 oxycodone [From PERCOCET] Allergy Unknown PALPITATION Verified 10/10/24 20:41 S Robitussin Cold Cough+ Chest Allergy Intermediate hives Uncoded 10/10/24 20:41 SEAFOOD Allergy Intermediate hives Uncoded 10/10/24 20:41 Active Medications: Current Medications Acetaminophen (Acetaminophen 325 Mg Tablet) 650 mg PO Q6H PRN PRN Reason: Pain, Mild 1-3,fever,headache Albuterol/Ipratropium (Albuterol/Iprat 2.5/0.5mg 3 Ml Ampul.Neb) 3 ml INHALE Q4H PRN PRN Reason: Shortness of Breath/Wheezing Atorvastatin Calcium (Atorvastatin Calcium 20 Mg Tablet) 20 mg PO BEDTIME [facility] Benzonatate (Benzonatate 100 Mg Capsule) 100 mg PO TID PRN PRN Reason: Cough Calcium Carbonate (Calcium Carbonate 750 Mg Tab.Chew) 750 mg PO Q4H PRN PRN Reason: Heartburn Dextrose (Dextrose 50 % 25 Gm/50 Ml Syringe) 25 gm IVPUSH Q15M PRN; Protocol PRN Reason: per Hypoglycemia Standing Ord. Fluticasone/Vilanterol (Fluticasone/Vilanterol 200/25 Blst.W.Dev) 1 puff INHALE RDAILY [facility] Furosemide (Furosemide 20 Mg Tablet) 60 mg PO DAILY [facility]; Protocol Glucose (Glucose Gel 15 Gm Gel..Gram.) 15 gm PO Q15M PRN; Protocol PRN Reason: per Hypoglycemia Standing Ord. Piperacillin Sod/Tazobactam (Sod 3.375 gm/ Sodium Chloride) 50 mls @ 100 mls/hr IV Q6H [facility] Last Infusion: 10/11/24 07:30 Dose: Infused Vancomycin HCl 1,250 mg/ (Sodium Chloride) 250 mls @ 166.667 mls/hr IV Q24H [facility] Insulin Glargine (Insulin Glargine,Hum.Rec.Anlog 100 Unit/Ml 10 Ml Vial) 26 unit SUBCUT DAILY [facility] Insulin Human Lispro (Insulin Lispro 100 Unit/Ml 3 Ml Vial) 0 unit SUBCUT QIDACHS [facility]; Protocol Last Admin: 10/11/24 08:17 Dose: Not Given Levothyroxine Sodium (Levothyroxine Sodium 100 Mcg Tablet) 100 mcg PO DAILY@0600 [facility] Last Admin: 10/11/24 05:56 Dose: 100 mcg Magnesium Hydroxide (Milk Of Magnesia 30 Ml Oral.Susp) 30 ml PO DAILY PRN PRN Reason: Constipation Melatonin (Melatonin 3 Mg Tablet) 6 mg PO BEDTIME PRN PRN Reason: Insomnia Metoprolol Tartrate (Metoprolol Tartrate 12.5 Mg Halftab) 12.5 mg PO BID [facility]; Protocol Omeprazole (Omeprazole 20 Mg Capsule.Dr) 20 mg PO BID@0630,1630 [facility] Pharmacy Consult (Consult Rx Vancomycin Dosing) 1 each MISCELLANE DAILY PRN PRN Reason: Consult order Sertraline HCl (Sertraline Hcl 50 Mg Tablet) 50 mg PO DAILY [facility] Sodium Chloride (0.9 % Sodium Chloride Flush 3 Ml Syringe) 3 ml IVFLUSH QSHIFT [facility] Vitamin D (Cholecalciferol (Vitamin D3) 25 Mcg Tablet) 50 mcg PO DAILY [facility] Home Medications ?Medication ?Instructions ?Recorded ?Confirmed ?Last Taken ?Type atorvastatin 20 mg tablet 20 mg PO BEDTIME 05/21/20 10/11/24 02/08/24 History blood sugar diagnostic #10 ea 05/21/20 03/22/24 Unknown History cholecalciferol (vitamin D3) 50 50 mcg PO DAILY 05/21/20 10/11/24 02/08/24 History mcg (2,000 unit) tablet fluticasone 500 mcg-salmeterol 50 1 inh inhalation BID 05/21/20 10/11/24 02/08/24 History mcg/dose blistr powdr for inhalation fluticasone propionate 50 2 spray intranasal DAILY 05/21/20 10/11/24 02/08/24 History mcg/actuation nasal spray,suspension lancets #100 ea 05/21/20 03/22/24 Unknown History levothyroxine 100 mcg tablet 100 mcg PO DAILY@0600 05/21/20 10/11/24 02/08/24 History omeprazole 20 mg capsule,delayed 20 mg PO BID@0630,1630 05/21/20 10/11/24 02/08/24 History release pen needle, diabetic 32 gauge x #50 ea 05/21/20 03/22/24 Unknown History sertraline 50 mg tablet 50 mg PO DAILY 05/21/20 10/11/24 02/08/24 History metoprolol tartrate 25 mg tablet 12.5 mg PO BID 12/17/20 10/11/24 02/08/24 History nebulizers (Sidestream misc) #1 ea 05/14/21 03/22/24 Unknown History multivitamin-iron sulfate 15 1 tab PO DAILY 12/15/21 10/11/24 02/08/24 History mg-folic acid 400 mcg tablet (Tab-A-Judith Multivitamin w-iron) insulin lispro 100 unit/mL See Protocol subcut TIDAC 06/26/22 10/11/24 02/08/24 History subcutaneous pen (Humalog KwikPen (U-100) Insulin) metformin 500 mg tablet,extended 500 mg PO BIDWM 02/10/11/24 02/08/24 History release 24 hr docusate sodium 100 mg capsule 100 mg PO BID 04/19/23 10/11/24 Unknown History acetaminophen 650 mg 650 mg PO Q8H PRN Pain/Fever 02/09/24 10/11/24 Unknown History tablet,extended release ciclopirox 0.77 % topical cream 1 appl topical BID 09/16/24 10/11/24 Unknown History furosemide 20 mg tablet 60 mg PO DAILY 09/16/24 10/11/24 Unknown History insulin glargine 100 unit/mL (3 26 unit subcut DAILY 09/16/24 10/11/24 Unknown History mL) subcutaneous pen (Lantus Solostar U-100 Insulin) loratadine 10 mg tablet 10 mg PO DAILY PRN Allergy Symptoms 09/16/24 10/11/24 Unknown History semaglutide 0.25 mg or 0.5 mg (2 0.5 mg subcut FR 09/16/24 10/11/24 10/04/24 History mg/3 mL) subcutaneous pen injector (Ozempic) solifenacin 10 mg tablet 10 mg PO DAILY 09/16/24 10/11/24 Unknown History warfarin 4 mg tablet 2 mg PO MO@1800 09/16/24 10/11/24 10/08/24 History warfarin 4 mg tablet 4 mg PO SUTUWETHFRSA@1800 10/11/24 10/11/24 10/10/24 History Physical Exam Vital Signs: Vital Signs: Last Vital Signs Temp 98.3 F 10/11/24 07:25 Pulse 90 10/11/24 07:25 Resp 24 H 10/11/24 07:25 BP 122/57 L 10/11/24 07:25 Pulse Ox 96 10/11/24 07:25 O2 Del Method Nasal Cannula 10/11/24 07:25 O2 Flow Rate 2 10/11/24 07:25 BMI result Body Mass Index 36.3 Const: General: comfortable and no acute distress Orientation/consciousness: patient oriented x3 HEENT: Other: Unremarkable Head: Yes normal to inspection Neck: Neck: Yes normal visual inspection Chest: Chest palpation & inspection: normal inspection of the chest Resp: Auscultation: crackles Cardio: Palpation: normal PMI Heart sounds: S1 normal heart sound present, S2 normal heart sound present, no gallops, no murmurs and no rubs GI: Palpation (GI): Soft to palpation Back/Spine/Pelvis: Other: unremarkable Skin: General skin exam: no rashes or lesions noted Neuro: General: patient oriented x3 Extrem: General: Yes normal to inspection Psych: Mental Status: mental status grossly normal Objective Labs and Meds 10/11/24 05:52 10/11/24 05:52 Lab results: Laboratory Results - last 24 hr 10/10/24 10/10/24 10/10/24 21:33 22:58 23:28 WBC 10.7 RBC 3.87 L Hgb 12.1 Hct 35.7 L MCV 92.2 MCH 31.3 MCHC 33.9 RDW 13.2 Plt Count TNP MPV TNP Immature Gran % (Auto) 0.6 H Neut % (Auto) 73.7 H Lymph % (Auto) 17.8 L Martin % (Auto) 6.9 Eos % (Auto) 0.7 Baso % (Auto) 0.3 Lymph # (Auto) 1.9 Martin # (Auto) 0.7 Eos # (Auto) 0.1 Baso # (Auto) 0.0 Abs Immat Gran (auto) 0.06 H Absolute Neuts (auto) 7.9 Absolute Nucleated RBC 0.000 Nucleated RBC % (auto) 0.0 Smear Tech's Comments VERIFIED PT INR Sodium 136 Potassium 4.1 Chloride 101 Carbon Dioxide 25 Anion Gap 14 BUN 13 Creatinine 0.90 Estim Creat Clear Calc 47.6 Estimated GFR 59 POC Glucose Random Glucose 178 H Lactic Acid 1.4 Calcium 9.4 Total Bilirubin 0.8 AST 45 H ALT 18 Alkaline Phosphatase 119 H Troponin I High Sens B-Natriuretic Peptide Total Protein 8.3 H Albumin 3.3 L Urine Color Dark Yellow Urine Appearance Clear Urine pH 6.0 Ur Specific [place] 1.010 Urine Protein 100 (2+) H Urine Glucose (UA) Negative Urine Ketones Negative Urine Blood Small (1+) H Urine Nitrite Negative Ur Leukocyte Esterase Negative Urine RBC 3-5 H Urine WBC 0-5 Ur Squamous Epith Cells 0-2 Urine Bacteria None Seen Hyaline Casts 0-2 Nasal Screen MRSA (PCR) Nasal S. aureus Screen Nasal MRSA/S.aureus Interp Influenza Type A (PCR) NEGATIVE Influenza Type B (PCR) NEGATIVE RSV RNA Qual (PCR) NEGATIVE SARS-CoV-2 RNA (RT-PCR) NEGATIVE 10/11/24 10/11/24 10/11/24 01:28 01:44 02:54 WBC RBC Hgb Hct MCV MCH MCHC RDW Plt Count MPV Immature Gran % (Auto) Neut % (Auto) Lymph % (Auto) Martin % (Auto) Eos % (Auto) Baso % (Auto) Lymph # (Auto) Martin # (Auto) Eos # (Auto) Baso # (Auto) Abs Immat Gran (auto) Absolute Neuts (auto) Absolute Nucleated RBC Nucleated RBC % (auto) Smear Tech's Comments PT 85.3 H D INR 7.3 H* D Sodium Potassium Chloride Carbon Dioxide Anion Gap BUN Creatinine Estim Creat Clear Calc Estimated GFR POC Glucose Random Glucose Lactic Acid Calcium Total Bilirubin AST ALT Alkaline Phosphatase Troponin I High Sens 57.8 H* B-Natriuretic Peptide 486 H Total Protein Albumin Urine Color Urine Appearance Urine pH Ur Specific [place] Urine Protein Urine Glucose (UA) Urine Ketones Urine Blood Urine Nitrite Ur Leukocyte Esterase Urine RBC Urine WBC Ur Squamous Epith Cells Urine Bacteria Hyaline Casts Nasal Screen MRSA (PCR) NEGATIVE Nasal S. aureus Screen POSITIVE A Nasal MRSA/S.aureus Interp SEE NOTE Influenza Type A (PCR) Influenza Type B (PCR) RSV RNA Qual (PCR) SARS-CoV-2 RNA (RT-PCR) 10/11/24 10/11/24 10/11/24 05:52 07:12 08:53 WBC 10.7 RBC 3.61 L Hgb 11.3 L Hct 34.0 L MCV 94.2 MCH 31.3 MCHC 33.2 RDW 13.2 Plt Count TNP MPV Not Reportable Immature Gran % (Auto) Neut % (Auto) Lymph % (Auto) Martin % (Auto) Eos % (Auto) Baso % (Auto) Lymph # (Auto) Martin # (Auto) Eos # (Auto) Baso # (Auto) Abs Immat Gran (auto) Absolute Neuts (auto) Absolute Nucleated RBC 0.000 Nucleated RBC % (auto) 0.0 Smear Tech's Comments PT 81.1 H INR 6.9 H* Sodium 140 Potassium 3.4 Chloride 105 Carbon Dioxide 27 Anion Gap 11 L BUN 13 Creatinine 0.82 Estim Creat Clear Calc 52.3 Estimated GFR > 60 POC Glucose 93 Random Glucose 96 Lactic Acid Calcium 8.9 Total Bilirubin 0.8 AST 29 ALT 16 Alkaline Phosphatase 111 Troponin I High Sens 59.5 H* B-Natriuretic Peptide Total Protein 7.2 Albumin 3.0 L Urine Color Urine Appearance Urine pH Ur Specific [place] Urine Protein Urine Glucose (UA) Urine Ketones Urine Blood Urine Nitrite Ur Leukocyte Esterase Urine RBC Urine WBC Ur Squamous Epith Cells Urine Bacteria Hyaline Casts Nasal Screen MRSA (PCR) Nasal S. aureus Screen Nasal MRSA/S.aureus Interp Influenza Type A (PCR) Influenza Type B (PCR) RSV RNA Qual (PCR) SARS-CoV-2 RNA (RT-PCR) ECG Interpretation: In the EKG, likely sinus rhythm with a long AL interval. No ischemic findings. Assessment and Plan (1) Paroxysmal A-fib: Status: Acute (2) Heart block: Status: Acute (3) Elevated troponin: Status: Acute (4) Pneumonia: Qualifiers: Laterality: right Lung location: lower lobe of lung Pneumonia type: due to unspecified organism Qualified Code(s): J18.9 - Pneumonia, unspecified organism Status: Acute Plan In the labs, troponin levels are abnormal that 57 and 59. Last echocardiogram from 2023-LVEF of 40-45%. Severely dilated left atrium. EKG with markedly prolonged AL. Overall, admission for pneumonia and likely demand related troponin leak but no overt ACS. Clinically, she denies any chest pains. Can treat her pneumonia. For the paroxysmal atrial fibrillation, she is on low-dose beta-blockers. She does have a markedly prolonged AL and hence there is an increased risk of developing advanced heart block and will need periodic monitoring. Based on age, comorbidities, guarded prognosis. Upon discharge, follow up as an outpatient. Procedures Date of Service Date of Service: 10/11/24
[2024-10-11] MEDS: Sertraline HCL 50 MG TABLET PO (11:28)
[2024-10-11 13:06] LABS: Glucose, Whole Blood 184 mg/dL (60-115)
[2024-10-11] MEDS: Insulin Lispro 100 UNIT/ML 3 ML VIAL SUBCUT ×3 (13:07→21:11)
--- NOTE | 2024-10-11 14:11 | MHC.CM.PN ---
PT LIVES AT HOME WITH SON PT RECEIVES PATIENT SERVICES MANAGER SERVICES PT USES WALKER, CANE, SHOWERCHAIR, TOILET RAISER, PT'S HCP IS BRIAN WOOD, SON, PCP- CATALINA BAGLEY PT'S [facility] DCP- [facility] VIA PRIVATE TRANSPORT.
[2024-10-11 16:32] LABS: Glucose, Whole Blood 225 mg/dL (60-115)
[2024-10-11] MEDS: Omeprazole 20 MG CAPSULE.DR PO (16:53)
[2024-10-11 20:46] LABS: Glucose, Whole Blood 170 mg/dL (60-115)
[2024-10-11] MEDS: Metoprolol Tartrate 12.5 MG HALFTAB PO (21:09)
[2024-10-11] MEDS: Atorvastatin Calcium 20 MG TABLET PO (21:11)
[2024-10-11] MEDS: Melatonin 3 MG TABLET 6 MG PO (22:45)
[2024-10-12] VITALS (7 sets, daily range): BP systolic 109–146; BP diastolic 52–76; PULSE 57–84; RESP 14–18; TEMP 36.2–37.3; O2SAT 93–96
[2024-10-12] MEDS: Piperacillin Sodium/Tazobactam 3.375 GM in 0.9 % Sodium Chloride 50 ML IV ×4 (01:03→19:36)
[2024-10-12] MEDS: Levothyroxine Sodium 100 MCG TABLET PO (05:22)
[2024-10-12] MEDS: Omeprazole 20 MG CAPSULE.DR PO ×2 (05:22→16:34)
[2024-10-12 06:52] LABS: Hematocrit 32.3 % (37.0-47.0); Hemoglobin 10.9 g/dl (12.0-16.0); Mean Corpuscular HGB Conc 33.7 g/dl (31.0-35.0); Mean Corpuscular Hemoglobin 31.2 pg (27.0-33.0); Mean Corpuscular Volume 92.6 fL (80.0-98.0); Mean Platelet Volume 11.2 fL (9.4-12.3); Platelet Count 154 X10*3/uL (160-400); Red Blood Count 3.49 X10*6/uL (4.20-5.50); Red Cell Distribution Width 13.3 % (11.0-16.0); White Blood Count 12.6 X10*3/uL (4.8-10.8)
[2024-10-12 06:56] LABS: INTERNATIONAL NORM RATIO 4.4 (0.9-1.1); Prothrombin Time 51.1 SEC (10.9-12.4)
[2024-10-12 07:05] LABS: Anion Gap 11 (12-20); Blood Urea Nitrogen 11 mg/dL (9-16); Calcium 9.5 mg/dL (8.4-10.2); Carbon Dioxide 26 mmol/L (22-29); Chloride 103 mmol/L (96-108); Creatinine Clr Calc Pharmacy 54.3; Estimated Glomerular Filt Rate > 60; Glucose Random 147 mg/dL (60-115); Potassium 3.4 mmol/L (3.3-5.1); Sodium 137 mmol/L (135-145)
[2024-10-12] MEDS: Fluticasone/Vilanterol 200/25 BLST.W.DEV 1 PUFF INHALE (08:05)
[2024-10-12] MEDS: Cholecalciferol (Vitamin D3) 25 MCG TABLET 50 MCG PO (08:58)
[2024-10-12] MEDS: Sertraline HCL 50 MG TABLET PO (08:58)
[2024-10-12] MEDS: Furosemide 20 MG TABLET 60 MG PO (08:58)
[2024-10-12] MEDS: Insulin Glargine,Hum.rec.anlog 100 UNIT/ML 10 ML VIAL 26 UNIT SUBCUT (08:58)
[2024-10-12] MEDS: Metoprolol Tartrate 12.5 MG HALFTAB PO ×2 (08:58→19:35)
[2024-10-12] MEDS: Insulin Lispro 100 UNIT/ML 3 ML VIAL SUBCUT ×4 (09:09→19:40)
[2024-10-12] MEDS: 0.9 % Sodium Chloride Flush 3 ML SYRINGE IVFLUSH (09:09)
[2024-10-12] MEDS: Erythromycin Base 0.5% Oph Oin 1 GM TUBE 1 CM EYE-RIGHT ×2 (10:53→19:35)
--- NOTE | 2024-10-12 11:05 | HO.PM.IMPN ---
Subjective Subjective Date of Service: 10/12/24 Interval History: sob Physical Exam Vital Signs: Vital Signs: Last Vital Signs Temp 97.4 F 10/12/24 07:20 Pulse 84 10/12/24 08:06 Resp 18 10/12/24 08:06 BP 146/76 H 10/12/24 07:20 Pulse Ox 93 10/12/24 07:20 O2 Del Method Nasal Cannula 10/12/24 07:20 O2 Flow Rate 1 10/12/24 07:20 BMI result Body Mass Index 36.4 Const: General: comfortable and no acute distress Orientation/consciousness: patient oriented x3 HEENT: Other: Unremarkable Head: Yes normal to inspection Neck: Neck: Yes normal visual inspection Chest: Chest palpation & inspection: normal inspection of the chest Resp: Auscultation: crackles Cardio: Palpation: normal PMI Heart sounds: S1 normal heart sound present, S2 normal heart sound present, no gallops, no murmurs and no rubs GI: Palpation (GI): Soft to palpation Back/Spine/Pelvis: Other: unremarkable Skin: General skin exam: no rashes or lesions noted Neuro: General: patient oriented x3 Extrem: General: Yes normal to inspection Psych: Mental Status: mental status grossly normal Objective Data Active Medications Acetaminophen (Acetaminophen 325 Mg Tablet) 650 mg PO Q6H PRN PRN Reason: Pain, Mild 1-3,fever,headache Albuterol/Ipratropium (Albuterol/Iprat 2.5/0.5mg 3 Ml Ampul.Neb) 3 ml INHALE Q4H PRN PRN Reason: Shortness of Breath/Wheezing Atorvastatin Calcium (Atorvastatin Calcium 20 Mg Tablet) 20 mg PO BEDTIME [facility] Last Admin: 10/11/24 21:11 Dose: 20 mg Documented By: BUCKY Benzonatate (Benzonatate 100 Mg Capsule) 100 mg PO TID PRN PRN Reason: Cough Calcium Carbonate (Calcium Carbonate 750 Mg Tab.Chew) 750 mg PO Q4H PRN PRN Reason: Heartburn Dextrose (Dextrose 50 % 25 Gm/50 Ml Syringe) 25 gm IVPUSH Q15M PRN; Protocol PRN Reason: per Hypoglycemia Standing Ord. Erythromycin (Erythromycin Base 0.5% Oph Oin 1 Gm Tube) 1 cm EYE-RIGHT BID [facility] Last Admin: 10/12/24 10:53 Dose: 1 cm Documented By: ROSALIE Fluticasone/Vilanterol (Fluticasone/Vilanterol 200/25 Blst.W.Dev) 1 puff INHALE RDAILY [facility] Last Admin: 10/12/24 08:05 Dose: 1 puff Documented By: WEN Furosemide (Furosemide 20 Mg Tablet) 60 mg PO DAILY [facility]; Protocol Last Admin: 10/12/24 08:58 Dose: 60 mg Documented By: ROSALIE Glucose (Glucose Gel 15 Gm Gel..Gram.) 15 gm PO Q15M PRN; Protocol PRN Reason: per Hypoglycemia Standing Ord. Piperacillin Sod/Tazobactam (Sod 3.375 gm/ Sodium Chloride) 50 mls @ 100 mls/hr IV Q6H [facility] Last Infusion: 10/12/24 05:52 Dose: Infused Documented By: BUCKY Insulin Glargine (Insulin Glargine,Hum.Rec.Anlog 100 Unit/Ml 10 Ml Vial) 26 unit SUBCUT DAILY [facility] Last Admin: 10/12/24 08:58 Dose: 26 unit Documented By: ROSALIE Insulin Human Lispro (Insulin Lispro 100 Unit/Ml 3 Ml Vial) 0 unit SUBCUT QIDACHS [facility]; Protocol Last Admin: 10/12/24 09:09 Dose: 2 unit Documented By: ROSALIE Levothyroxine Sodium (Levothyroxine Sodium 100 Mcg Tablet) 100 mcg PO DAILY@0600 [facility] Last Admin: 10/12/24 05:22 Dose: 100 mcg Documented By: BUCKY Magnesium Hydroxide (Milk Of Magnesia 30 Ml Oral.Susp) 30 ml PO DAILY PRN PRN Reason: Constipation Melatonin (Melatonin 3 Mg Tablet) 6 mg PO BEDTIME PRN PRN Reason: Insomnia Last Admin: 10/11/24 22:45 Dose: 6 mg Documented By: BUCKY Metoprolol Tartrate (Metoprolol Tartrate 12.5 Mg Halftab) 12.5 mg PO BID [facility]; Protocol Last Admin: 10/12/24 08:58 Dose: 12.5 mg Documented By: ROSALIE Omeprazole (Omeprazole 20 Mg Capsule.Dr) 20 mg PO BID@0630,1630 [facility] Last Admin: 10/12/24 05:22 Dose: 20 mg Documented By: BUCKY Sertraline HCl (Sertraline Hcl 50 Mg Tablet) 50 mg PO DAILY [facility] Last Admin: 10/12/24 08:58 Dose: 50 mg Documented By: ROSALIE Sodium Chloride (0.9 % Sodium Chloride Flush 3 Ml Syringe) 3 ml IVFLUSH QSHIFT [facility] Last Admin: 10/12/24 09:09 Dose: 3 ml Documented By: ROSALIE Vitamin D (Cholecalciferol (Vitamin D3) 25 Mcg Tablet) 50 mcg PO DAILY [facility] Last Admin: 10/12/24 08:58 Dose: 50 mcg Documented By: ROSALIE Labs 10/12/24 06:07 10/12/24 06:07 Labs: Laboratory Results - last 24 hr 10/11/24 10/11/24 10/11/24 01:44 12:59 16:28 MCV MCH MCHC RDW Plt Count MPV Absolute Nucleated RBC Nucleated RBC % (auto) PT INR Anion Gap Estim Creat Clear Calc Estimated GFR POC Glucose 184 H 225 H Random Glucose Calcium Nasal Screen MRSA (PCR) NEGATIVE Nasal S. aureus Screen POSITIVE A Nasal MRSA/S.aureus Interp SEE NOTE 10/11/24 10/12/24 20:41 06:07 MCV 92.6 MCH 31.2 MCHC 33.7 RDW 13.3 Plt Count 154 L MPV 11.2 Absolute Nucleated RBC 0.000 Nucleated RBC % (auto) 0.0 PT 51.1 H D INR 4.4 H D Anion Gap 11 L Estim Creat Clear Calc 54.3 Estimated GFR > 60 POC Glucose 170 H Random Glucose 147 H Calcium 9.5 D Nasal Screen MRSA (PCR) Nasal S. aureus Screen Nasal MRSA/S.aureus Interp Microbiology Microbiology Results: Microbiology 10/10/24 23:36 Blood Culture - Preliminary Blood - Venous No growth after 24 hours. 10/10/24 23:28 Blood Culture - Preliminary Blood - Venous No growth after 24 hours. 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, history of CVA, osteoarthritis, hypothyroid presented with shortness of breath Acute hypoxic respiratory failure secondary to pneumonia 3 weeks after influenza MRSA swab negative, dc vanc Continue Zosyn Wean O2 as tolerated Chronic systolic CHF cardio appreciated Continue metoprolol, Lasix Diabetes Basal bolus insulin History of DVT On Coumadin, supratherapeutic INR monitor CAD Coumadin, statin History of CVA Coumadin, statin Hypothyroid Levothyroxine Full code reason for continued hospitalization: Hypoxia Quality Stroke Does the patient have a stroke diagnosis?: Yes Reason for No Anti-thrombotic by Day Two: N/A - Med Ordered VTE Prior VTE?: No VTE Risk Level:: Medical - moderate - high VTE Device Contraindication: Patient Refused VTE Drug Contraindication: N/A - Med Ordered
[2024-10-12 11:11] LABS: Glucose, Whole Blood 214 mg/dL (60-115)
[2024-10-12 16:05] LABS: Glucose, Whole Blood 208 mg/dL (60-115)
[2024-10-12] MEDS: Atorvastatin Calcium 20 MG TABLET PO (19:35)
[2024-10-12 19:50] LABS: Glucose, Whole Blood 215 mg/dL (60-115)
[2024-10-13] VITALS (7 sets, daily range): BP systolic 117–158; BP diastolic 61–68; PULSE 54–73; RESP 16–19; TEMP 36.2–36.6; O2SAT 93–97
[2024-10-13] MEDS: Piperacillin Sodium/Tazobactam 3.375 GM in 0.9 % Sodium Chloride 50 ML IV ×4 (01:20→17:55)
[2024-10-13] MEDS: Levothyroxine Sodium 100 MCG TABLET PO (05:49)
[2024-10-13] MEDS: Omeprazole 20 MG CAPSULE.DR PO ×2 (05:49→17:04)
[2024-10-13 07:00] LABS: INTERNATIONAL NORM RATIO 2.6 (0.9-1.1); Prothrombin Time 30.8 SEC (10.9-12.4)
[2024-10-13 07:07] LABS: Hematocrit 34.7 % (37.0-47.0); Hemoglobin 11.5 g/dl (12.0-16.0); Mean Corpuscular HGB Conc 33.1 g/dl (31.0-35.0); Mean Corpuscular Hemoglobin 30.8 pg (27.0-33.0); Mean Platelet Volume 11.4 fL (9.4-12.3); Platelet Count 146 X10*3/uL (160-400); Red Blood Count 3.73 X10*6/uL (4.20-5.50); Red Cell Distribution Width 13.1 % (11.0-16.0); White Blood Count 10.8 X10*3/uL (4.8-10.8)
[2024-10-13 07:08] LABS: Anion Gap 13 (12-20); Blood Urea Nitrogen 12 mg/dL (9-16); Calcium 9.4 mg/dL (8.4-10.2); Carbon Dioxide 27 mmol/L (22-29); Chloride 103 mmol/L (96-108); Creatinine Clr Calc Pharmacy 53.6; Estimated Glomerular Filt Rate > 60; Glucose Random 138 mg/dL (60-115); Potassium 3.4 mmol/L (3.3-5.1); Sodium 140 mmol/L (135-145)
[2024-10-13 07:36] LABS: Glucose, Whole Blood 132 mg/dL (60-115)
[2024-10-13] MEDS: Fluticasone/Vilanterol 200/25 BLST.W.DEV 1 PUFF INHALE (07:58)
[2024-10-13] MEDS: Sertraline HCL 50 MG TABLET PO ×2 (09:37→09:39)
[2024-10-13] MEDS: Cholecalciferol (Vitamin D3) 25 MCG TABLET 50 MCG PO ×2 (09:37→09:39)
[2024-10-13] MEDS: Furosemide 20 MG TABLET 60 MG PO ×2 (09:37→09:40)
[2024-10-13] MEDS: Erythromycin Base 0.5% Oph Oin 1 GM TUBE 1 CM EYE-RIGHT ×2 (09:37→20:16)
[2024-10-13] MEDS: Insulin Glargine,Hum.rec.anlog 100 UNIT/ML 10 ML VIAL 26 UNIT SUBCUT ×2 (09:37→09:41)
[2024-10-13] MEDS: Metoprolol Tartrate 12.5 MG HALFTAB PO ×2 (09:37→20:15)
[2024-10-13] MEDS: 0.9 % Sodium Chloride Flush 3 ML SYRINGE IVFLUSH ×2 (09:38→17:05)
--- NOTE | 2024-10-13 09:59 | HO.PM.IMPN ---
Subjective Subjective Date of Service: 10/13/24 Interval History: sob Physical Exam Vital Signs: Vital Signs: Last Vital Signs Temp 97.1 F 10/13/24 07:24 Pulse 57 10/13/24 07:59 Resp 16 10/13/24 07:59 BP 145/66 H 10/13/24 07:24 Pulse Ox 93 10/13/24 07:24 O2 Del Method Nasal Cannula 10/13/24 07:24 O2 Flow Rate 2 10/13/24 07:24 BMI result Body Mass Index 36.4 Const: General: comfortable and no acute distress Orientation/consciousness: patient oriented x3 HEENT: Other: Unremarkable Head: Yes normal to inspection Neck: Neck: Yes normal visual inspection Chest: Chest palpation & inspection: normal inspection of the chest Resp: Auscultation: crackles Cardio: Palpation: normal PMI Heart sounds: S1 normal heart sound present, S2 normal heart sound present, no gallops, no murmurs and no rubs GI: Palpation (GI): Soft to palpation Back/Spine/Pelvis: Other: unremarkable Skin: General skin exam: no rashes or lesions noted Neuro: General: patient oriented x3 Extrem: General: Yes normal to inspection Psych: Mental Status: mental status grossly normal Objective Data Active Medications Acetaminophen (Acetaminophen 325 Mg Tablet) 650 mg PO Q6H PRN PRN Reason: Pain, Mild 1-3,fever,headache Albuterol/Ipratropium (Albuterol/Iprat 2.5/0.5mg 3 Ml Ampul.Neb) 3 ml INHALE Q4H PRN PRN Reason: Shortness of Breath/Wheezing Atorvastatin Calcium (Atorvastatin Calcium 20 Mg Tablet) 20 mg PO BEDTIME [facility] Last Admin: 10/12/24 19:35 Dose: 20 mg Documented By: BUCKY Benzonatate (Benzonatate 100 Mg Capsule) 100 mg PO TID PRN PRN Reason: Cough Calcium Carbonate (Calcium Carbonate 750 Mg Tab.Chew) 750 mg PO Q4H PRN PRN Reason: Heartburn Dextrose (Dextrose 50 % 25 Gm/50 Ml Syringe) 25 gm IVPUSH Q15M PRN; Protocol PRN Reason: per Hypoglycemia Standing Ord. Erythromycin (Erythromycin Base 0.5% Oph Oin 1 Gm Tube) 1 cm EYE-RIGHT BID [facility] Last Admin: 10/13/24 09:37 Dose: 1 cm Documented By: ROSALIE Fluticasone/Vilanterol (Fluticasone/Vilanterol 200/25 Blst.W.Dev) 1 puff INHALE RDAILY [facility] Last Admin: 10/13/24 07:58 Dose: 1 puff Documented By: FREDDY Furosemide (Furosemide 20 Mg Tablet) 60 mg PO DAILY [facility]; Protocol Last Admin: 10/13/24 09:40 Dose: 60 mg Documented By: ROSALIE Glucose (Glucose Gel 15 Gm Gel..Gram.) 15 gm PO Q15M PRN; Protocol PRN Reason: per Hypoglycemia Standing Ord. Piperacillin Sod/Tazobactam (Sod 3.375 gm/ Sodium Chloride) 50 mls @ 100 mls/hr IV Q6H [facility] Last Infusion: 10/13/24 07:17 Dose: Infused Documented By: ROSALIE Insulin Glargine (Insulin Glargine,Hum.Rec.Anlog 100 Unit/Ml 10 Ml Vial) 26 unit SUBCUT DAILY [facility] Last Admin: 10/13/24 09:41 Dose: 26 unit Documented By: ROSALIE Insulin Human Lispro (Insulin Lispro 100 Unit/Ml 3 Ml Vial) 0 unit SUBCUT QIDACHS [facility]; Protocol Last Admin: 10/13/24 07:39 Dose: Not Given Documented By: ROSALIE Non-Admin Reason: No Insulin Coverage Levothyroxine Sodium (Levothyroxine Sodium 100 Mcg Tablet) 100 mcg PO DAILY@0600 [facility] Last Admin: 10/13/24 05:49 Dose: 100 mcg Documented By: BUCKY Magnesium Hydroxide (Milk Of Magnesia 30 Ml Oral.Susp) 30 ml PO DAILY PRN PRN Reason: Constipation Melatonin (Melatonin 3 Mg Tablet) 6 mg PO BEDTIME PRN PRN Reason: Insomnia Last Admin: 10/11/24 22:45 Dose: 6 mg Documented By: BUCKY Metoprolol Tartrate (Metoprolol Tartrate 12.5 Mg Halftab) 12.5 mg PO BID [facility]; Protocol Last Admin: 10/13/24 09:37 Dose: 12.5 mg Documented By: ROSALIE Comments: HR 74 Omeprazole (Omeprazole 20 Mg Capsule.Dr) 20 mg PO BID@0630,1630 [facility] Last Admin: 10/13/24 05:49 Dose: 20 mg Documented By: BUCKY Sertraline HCl (Sertraline Hcl 50 Mg Tablet) 50 mg PO DAILY [facility] Last Admin: 10/13/24 09:39 Dose: 50 mg Documented By: ROSALIE Sodium Chloride (0.9 % Sodium Chloride Flush 3 Ml Syringe) 3 ml IVFLUSH QSHIFT [facility] Last Admin: 10/13/24 09:38 Dose: 3 ml Documented By: ROSALIE Vitamin D (Cholecalciferol (Vitamin D3) 25 Mcg Tablet) 50 mcg PO DAILY [facility] Last Admin: 10/13/24 09:39 Dose: 50 mcg Documented By: ROSALIE Warfarin Sodium (Warfarin Sodium 4 Mg Tablet) 4 mg PO SUTUWETHFRSA@1800 [facility] Warfarin Sodium (Warfarin Sodium 2 Mg Tablet) 2 mg PO MO@1800 [facility] Labs 10/13/24 06:32 10/13/24 06:32 Labs: Laboratory Results - last 24 hr 10/12/24 10/12/24 10/12/24 11:02 15:58 19:37 MCV MCH MCHC RDW Plt Count MPV Absolute Nucleated RBC Nucleated RBC % (auto) PT INR Anion Gap Estim Creat Clear Calc Estimated GFR POC Glucose 214 H 208 H 215 H Random Glucose Calcium 10/13/24 10/13/24 06:32 07:23 MCV 93.0 MCH 30.8 MCHC 33.1 RDW 13.1 Plt Count 146 L MPV 11.4 Absolute Nucleated RBC 0.000 Nucleated RBC % (auto) 0.0 PT 30.8 H D INR 2.6 H Anion Gap 13 Estim Creat Clear Calc 53.6 Estimated GFR > 60 POC Glucose 132 H Random Glucose 138 H Calcium 9.4 Microbiology Microbiology Results: Microbiology 10/10/24 23:36 Blood Culture - Preliminary Blood - Venous No growth after 48 hours. 10/10/24 23:28 Blood Culture - Preliminary Blood - Venous No growth after 48 hours. 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, history of CVA, osteoarthritis, hypothyroid presented with shortness of breath Acute hypoxic respiratory failure secondary to pneumonia 3 weeks after influenza MRSA swab negative, dced vanc Continue Zosyn Wean O2 as tolerated Chronic systolic CHF cardio appreciated Continue metoprolol, Lasix Diabetes Basal bolus insulin History of DVT with supratherapeutic inr inr now in therapeutic range, restarted coumadin CAD Coumadin, statin History of CVA Coumadin, statin Hypothyroid Levothyroxine Full code reason for continued hospitalization: Hypoxia Quality Stroke Does the patient have a stroke diagnosis?: Yes Reason for No Anti-thrombotic by Day Two: N/A - Med Ordered VTE Prior VTE?: No VTE Risk Level:: Medical - moderate - high VTE Device Contraindication: Patient Refused VTE Drug Contraindication: N/A - Med Ordered
[2024-10-13] MEDS: Benzonatate 100 MG CAPSULE PO (10:15)
[2024-10-13] MEDS: ondansetron HCL 4 MG/2 ML VIAL IVPUSH (10:15)
[2024-10-13 11:32] LABS: Glucose, Whole Blood 195 mg/dL (60-115)
[2024-10-13] MEDS: Insulin Lispro 100 UNIT/ML 3 ML VIAL SUBCUT ×3 (13:20→21:34)
[2024-10-13 16:01] LABS: Glucose, Whole Blood 156 mg/dL (60-115)
[2024-10-13] MEDS: Lidocaine 4 % Patch ADH..PATCH 1 PATCH TRANSDERMA (17:03)
[2024-10-13] MEDS: Warfarin Sodium 4 MG TABLET PO (17:54)
[2024-10-13] MEDS: Atorvastatin Calcium 20 MG TABLET PO (20:16)
[2024-10-13] MEDS: Melatonin 3 MG TABLET 6 MG PO (23:40)
[2024-10-14] VITALS (9 sets, daily range): BP systolic 119–151; BP diastolic 46–67; PULSE 53–62; RESP 16–18; TEMP 36–36.3; O2SAT 87–97
[2024-10-14] MEDS: Piperacillin Sodium/Tazobactam 3.375 GM in 0.9 % Sodium Chloride 50 ML IV ×4 (00:37→17:43)
[2024-10-14] MEDS: Omeprazole 20 MG CAPSULE.DR PO ×2 (05:40→16:52)
[2024-10-14] MEDS: Levothyroxine Sodium 100 MCG TABLET PO (05:47)
[2024-10-14 07:05] LABS: Hematocrit 35.1 % (37.0-47.0); Hemoglobin 11.4 g/dl (12.0-16.0); Mean Corpuscular HGB Conc 32.5 g/dl (31.0-35.0); Mean Corpuscular Hemoglobin 31.1 pg (27.0-33.0); Mean Corpuscular Volume 95.9 fL (80.0-98.0); Mean Platelet Volume 11.1 fL (9.4-12.3); Platelet Count 199 X10*3/uL (160-400); Red Blood Count 3.66 X10*6/uL (4.20-5.50); Red Cell Distribution Width 13.2 % (11.0-16.0); White Blood Count 10.4 X10*3/uL (4.8-10.8)
[2024-10-14 07:12] LABS: INTERNATIONAL NORM RATIO 2.2 (0.9-1.1); Prothrombin Time 25.6 SEC (10.9-12.4)
[2024-10-14 07:22] LABS: Anion Gap 12 (12-20); Blood Urea Nitrogen 13 mg/dL (9-16); Calcium 9.5 mg/dL (8.4-10.2); Carbon Dioxide 31 mmol/L (22-29); Chloride 102 mmol/L (96-108); Creatinine Clr Calc Pharmacy 48.8; Estimated Glomerular Filt Rate > 60; Glucose Random 113 mg/dL (60-115); Potassium 3.1 mmol/L (3.3-5.1); Sodium 142 mmol/L (135-145)
[2024-10-14 07:40] LABS: Glucose, Whole Blood 105 mg/dL (60-115)
[2024-10-14] MEDS: Erythromycin Base 0.5% Oph Oin 1 GM TUBE 1 CM EYE-RIGHT ×2 (08:02→22:40)
[2024-10-14] MEDS: Insulin Glargine,Hum.rec.anlog 100 UNIT/ML 10 ML VIAL 26 UNIT SUBCUT (08:02)
[2024-10-14] MEDS: Metoprolol Tartrate 12.5 MG HALFTAB PO (08:03)
[2024-10-14] MEDS: Cholecalciferol (Vitamin D3) 25 MCG TABLET 50 MCG PO (08:03)
[2024-10-14] MEDS: Sertraline HCL 50 MG TABLET PO (08:03)
[2024-10-14] MEDS: Furosemide 20 MG TABLET 60 MG PO (08:03)
[2024-10-14] MEDS: 0.9 % Sodium Chloride Flush 3 ML SYRINGE IVFLUSH ×2 (08:04→16:52)
[2024-10-14] MEDS: Potassium Chloride ER 20 MEQ TAB.ER.PRT 40 MEQ PO (08:04)
[2024-10-14] MEDS: Lidocaine 4 % Patch ADH..PATCH 1 PATCH TRANSDERMA (08:04)
[2024-10-14] MEDS: Acetaminophen 325 MG TABLET 650 MG PO ×2 (08:04→17:50)
[2024-10-14] MEDS: Fluticasone/Vilanterol 200/25 BLST.W.DEV 1 PUFF INHALE (08:27)
--- NOTE | 2024-10-14 09:51 | HO.PM.IMPN ---
Subjective Subjective Date of Service: 10/14/24 Interval History: sob Physical Exam Vital Signs: Vital Signs: Last Vital Signs Temp 97.4 F 10/14/24 07:49 Pulse 62 10/14/24 08:29 Resp 16 10/14/24 08:29 BP 151/67 H 10/14/24 08:03 Pulse Ox 94 10/14/24 07:49 O2 Del Method Nasal Cannula 10/14/24 07:49 O2 Flow Rate 2 10/14/24 07:49 BMI result Body Mass Index 36.4 Const: General: comfortable and no acute distress Orientation/consciousness: patient oriented x3 HEENT: Other: Unremarkable Head: Yes normal to inspection Neck: Neck: Yes normal visual inspection Chest: Chest palpation & inspection: normal inspection of the chest Resp: Auscultation: crackles Cardio: Palpation: normal PMI Heart sounds: S1 normal heart sound present, S2 normal heart sound present, no gallops, no murmurs and no rubs GI: Palpation (GI): Soft to palpation Back/Spine/Pelvis: Other: unremarkable Skin: General skin exam: no rashes or lesions noted Neuro: General: patient oriented x3 Extrem: General: Yes normal to inspection Psych: Mental Status: mental status grossly normal Objective Data Active Medications Acetaminophen (Acetaminophen 325 Mg Tablet) 650 mg PO Q6H PRN PRN Reason: Pain, Mild 1-3,fever,headache Last Admin: 10/14/24 08:04 Dose: 650 mg Documented By: JAYLEN Albuterol/Ipratropium (Albuterol/Iprat 2.5/0.5mg 3 Ml Ampul.Neb) 3 ml INHALE Q4H PRN PRN Reason: Shortness of Breath/Wheezing Atorvastatin Calcium (Atorvastatin Calcium 20 Mg Tablet) 20 mg PO BEDTIME [facility] Last Admin: 10/13/24 20:16 Dose: 20 mg Documented By: BUCKY Benzonatate (Benzonatate 100 Mg Capsule) 100 mg PO TID PRN PRN Reason: Cough Last Admin: 10/13/24 10:15 Dose: 100 mg Documented By: ROSALIE Calcium Carbonate (Calcium Carbonate 750 Mg Tab.Chew) 750 mg PO Q4H PRN PRN Reason: Heartburn Dextrose (Dextrose 50 % 25 Gm/50 Ml Syringe) 25 gm IVPUSH Q15M PRN; Protocol PRN Reason: per Hypoglycemia Standing Ord. Erythromycin (Erythromycin Base 0.5% Oph Oin 1 Gm Tube) 1 cm EYE-RIGHT BID [facility] Last Admin: 10/14/24 08:02 Dose: 1 cm Documented By: JAYLEN Fluticasone/Vilanterol (Fluticasone/Vilanterol 200/25 Blst.W.Dev) 1 puff INHALE RDAILY [facility] Last Admin: 10/14/24 08:27 Dose: 1 puff Documented By: RUSLAN Furosemide (Furosemide 20 Mg Tablet) 60 mg PO DAILY [facility]; Protocol Last Admin: 10/14/24 08:03 Dose: 60 mg Documented By: JAYLEN Glucose (Glucose Gel 15 Gm Gel..Gram.) 15 gm PO Q15M PRN; Protocol PRN Reason: per Hypoglycemia Standing Ord. Piperacillin Sod/Tazobactam (Sod 3.375 gm/ Sodium Chloride) 50 mls @ 100 mls/hr IV Q6H [facility] Last Infusion: 10/14/24 06:11 Dose: Infused Documented By: DALE Insulin Glargine (Insulin Glargine,Hum.Rec.Anlog 100 Unit/Ml 10 Ml Vial) 26 unit SUBCUT DAILY [facility] Last Admin: 10/14/24 08:02 Dose: 26 unit Documented By: JAYLEN Insulin Human Lispro (Insulin Lispro 100 Unit/Ml 3 Ml Vial) 0 unit SUBCUT QIDACHS [facility]; Protocol Last Admin: 10/14/24 07:35 Dose: Not Given Documented By: JAYLEN Non-Admin Reason: No Insulin Coverage Levothyroxine Sodium (Levothyroxine Sodium 100 Mcg Tablet) 100 mcg PO DAILY@0600 [facility] Last Admin: 10/14/24 05:47 Dose: 100 mcg Documented By: BUCKY Lidocaine (Lidocaine 4 % Patch Adh..Patch) 1 patch TRANSDERMA DAILY [facility]; Protocol Last Admin: 10/14/24 08:04 Dose: 1 patch Documented By: JAYLEN Magnesium Hydroxide (Milk Of Magnesia 30 Ml Oral.Susp) 30 ml PO DAILY PRN PRN Reason: Constipation Melatonin (Melatonin 3 Mg Tablet) 6 mg PO BEDTIME PRN PRN Reason: Insomnia Last Admin: 10/13/24 23:40 Dose: 6 mg Documented By: BUCKY Metoprolol Tartrate (Metoprolol Tartrate 12.5 Mg Halftab) 12.5 mg PO BID [facility]; Protocol Last Admin: 10/14/24 08:03 Dose: 12.5 mg Documented By: JAYLEN Omeprazole (Omeprazole 20 Mg Capsule.Dr) 20 mg PO BID@0630,1630 [facility] Last Admin: 10/14/24 05:40 Dose: 20 mg Documented By: BUCKY Ondansetron HCl (Ondansetron Hcl 4 Mg/2 Ml Vial) 4 mg IVPUSH Q6H PRN PRN Reason: Nausea Last Admin: 10/13/24 10:15 Dose: 4 mg Documented By: ROSALIE Sertraline HCl (Sertraline Hcl 50 Mg Tablet) 50 mg PO DAILY [facility] Last Admin: 10/14/24 08:03 Dose: 50 mg Documented By: JAYLEN Sodium Chloride (0.9 % Sodium Chloride Flush 3 Ml Syringe) 3 ml IVFLUSH QSHIFT [facility] Last Admin: 10/14/24 08:04 Dose: 3 ml Documented By: JAYLEN Vitamin D (Cholecalciferol (Vitamin D3) 25 Mcg Tablet) 50 mcg PO DAILY [facility] Last Admin: 10/14/24 08:03 Dose: 50 mcg Documented By: JAYLEN Warfarin Sodium (Warfarin Sodium 4 Mg Tablet) 4 mg PO SUTUWETHFRSA@1800 [facility] Last Admin: 10/13/24 18:00 Dose: 4 mg Documented By: ROSALIE Warfarin Sodium (Warfarin Sodium 2 Mg Tablet) 2 mg PO MO@1800 [facility] Labs 10/14/24 06:13 10/14/24 06:13 Labs: Laboratory Results - last 24 hr 10/13/24 10/13/24 10/14/24 11:23 15:56 06:12 MCV MCH MCHC RDW Plt Count MPV Absolute Nucleated RBC Nucleated RBC % (auto) PT 25.6 H INR 2.2 H Anion Gap Estim Creat Clear Calc Estimated GFR POC Glucose 195 H 156 H Random Glucose Calcium 10/14/24 10/14/24 06:13 07:34 MCV 95.9 MCH 31.1 MCHC 32.5 RDW 13.2 Plt Count 199 D MPV 11.1 Absolute Nucleated RBC 0.000 Nucleated RBC % (auto) 0.0 PT INR Anion Gap 12 Estim Creat Clear Calc 48.8 Estimated GFR > 60 POC Glucose 105 Random Glucose 113 Calcium 9.5 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, history of CVA, osteoarthritis, hypothyroid presented with shortness of breath Acute hypoxic respiratory failure secondary to pneumonia 3 weeks after influenza MRSA swab negative, dced vanc Continue Zosyn Wean O2 as tolerated - still requiring 2 L desaturates to mid 80s on room air Chronic systolic CHF cardio appreciated Continue metoprolol, Lasix Diabetes Basal bolus insulin History of DVT with supratherapeutic inr inr now in therapeutic range, restarted coumadin CAD Coumadin, statin History of CVA Coumadin, statin Hypothyroid Levothyroxine Full code reason for continued hospitalization: Hypoxia Quality Stroke Does the patient have a stroke diagnosis?: Yes Reason for No Anti-thrombotic by Day Two: N/A - Med Ordered VTE Prior VTE?: No VTE Risk Level:: Medical - moderate - high VTE Device Contraindication: Patient Refused VTE Drug Contraindication: N/A - Med Ordered
[2024-10-14 11:28] LABS: Glucose, Whole Blood 150 mg/dL (60-115)
[2024-10-14 12:04] LABS: Glucose, Whole Blood 169 mg/dL (60-115)
[2024-10-14 12:04] LABS: Glucose, Whole Blood 158 mg/dL (60-115)
--- NOTE | 2024-10-14 12:26 | MHC.SL.SWA ---
Speech Pathologist Impression: Age related changes to swallow mechanism, aspiration precautions and slightly downgraded diet appropriate. Cue pt to use slow pacing, avoid speaking with PO and alternate consistencies. Risk of Aspiration Due to: Neurological Condition History of Pneumonia Dysphasia Diet Status: Liquid Consistency and Strategies for Safe Swallow: Liquid Intake Recommendation: Thin Liquid Intake Strategies: Small Sips No Straws Solid Food Consistency: Dietary Recommendations: Chopped/Advanced (NDD3) Additional Modifications to Solid Foods: Patient presents with mild oral phase dysphagia d/t sparse dentition, with prolonged mastication and pocketing of solids. Recommend DOWNGRADE diet to CHOPPED/ADVANCED (NDD3) with THIN liquids, pills WHOLE in LIQUID. Patient is able to feed herself, but may need cues to utilize strategies: take small bites, chew food well, clear oral cavity before taking next bite, alternate bites with sips of liquid to clear pocketed material. PHP ENGINEER to f/u 1-2x. Oral Medication Intake: Whole with Liquid Please contact the pharmacy regarding appropriate crushable or liquid drug formulations that are available whenever modified delivery is recommended. Compensatory Strategies and Precautions to be Taken for Safe Swallow: Sitting Upright (90 deg) Small Bites and Sips Alternate Liquids/Solids Rate of Ingestion Change Supervision While Eating and Drinking for Safe Swallow: Intermittent Supervision Foods to Avoid: Tough, difficult to chew solids Swallowing Recommended Treatments: Compens. Strategy Educat. Recommendation for Speech: Inpatient Speech Therapy Comment: Patient presents with mild oral phase dysphagia d/t sparse dentition, with prolonged mastication and pocketing of solids. Recommend DOWNGRADE diet to CHOPPED/ADVANCED (NDD3) with THIN liquids, pills WHOLE in LIQUID. Patient is able to feed herself, but may need cues to utilize strategies: take small bites, chew food well, clear oral cavity before taking next bite, alternate bites with sips of liquid to clear pocketed material. PHP ENGINEER to f/u 1x. Frequency/Duration: M-F Date Range for Service Req: Timeline to reassess: PRN Bench Chemist Clinican/Clinical Fellow: No Supervisory Statement: I have reviewed and agree with the student/clinical fellow's documentation: N/A Speech Language Pathologist: Cely Fitzgerald M.S., [facility]-PHP ENGINEER
[2024-10-14 15:35] LABS: Glucose, Whole Blood 163 mg/dL (60-115)
--- NOTE | 2024-10-14 16:06 | MHC.CM.PN ---
Per rounds, pt. not ready to DC, she is still requiring acute care for Hypoxia. CM to follow for DC needs.
[2024-10-14] MEDS: Insulin Lispro 100 UNIT/ML 3 ML VIAL SUBCUT (16:52)
[2024-10-14] MEDS: Warfarin Sodium 2 MG TABLET PO (17:44)
[2024-10-14] MEDS: Atorvastatin Calcium 20 MG TABLET PO (22:40)
[2024-10-15] VITALS (12 sets, daily range): BP systolic 108–165; BP diastolic 52–69; PULSE 55–69; RESP 16–18; TEMP 35.9–36.6; O2SAT 80–97
[2024-10-15] MEDS: 0.9 % Sodium Chloride Flush 3 ML SYRINGE IVFLUSH ×4 (02:00→20:20)
[2024-10-15] MEDS: Piperacillin Sodium/Tazobactam 3.375 GM in 0.9 % Sodium Chloride 50 ML IV ×4 (04:00→20:19)
[2024-10-15] MEDS: Levothyroxine Sodium 100 MCG TABLET PO (05:51)
[2024-10-15] MEDS: Omeprazole 20 MG CAPSULE.DR PO ×2 (05:52→16:06)
[2024-10-15 07:37] LABS: Hematocrit 36.1 % (37.0-47.0); Hemoglobin 11.6 g/dl (12.0-16.0); Mean Corpuscular HGB Conc 32.1 g/dl (31.0-35.0); Mean Corpuscular Hemoglobin 30.9 pg (27.0-33.0); Platelet Count 231 X10*3/uL (160-400); Red Blood Count 3.76 X10*6/uL (4.20-5.50); Red Cell Distribution Width 13.2 % (11.0-16.0); White Blood Count 9.9 X10*3/uL (4.8-10.8)
[2024-10-15 07:39] LABS: INTERNATIONAL NORM RATIO 2.1 (0.9-1.1); Prothrombin Time 24.3 SEC (10.9-12.4)
[2024-10-15 07:42] LABS: Glucose, Whole Blood 115 mg/dL (60-115)
[2024-10-15] MEDS: Fluticasone/Vilanterol 200/25 BLST.W.DEV 1 PUFF INHALE (07:42)
[2024-10-15 07:56] LABS: Anion Gap 11 (12-20); Blood Urea Nitrogen 14 mg/dL (9-16); Carbon Dioxide 36 mmol/L (22-29); Chloride 103 mmol/L (96-108); Creatinine Clr Calc Pharmacy 48.8; Estimated Glomerular Filt Rate > 60; Glucose Random 124 mg/dL (60-115); Potassium 3.9 mmol/L (3.3-5.1); Sodium 146 mmol/L (135-145)
--- NOTE | 2024-10-15 08:02 | P.CDIM_ITS ---
PROVIDER RESPONSE TEXT: To clarify, the appropriate diagnosis supported by the clinical indicators: Aspiration pneumonia was present on admission and is still being monitored, evaluated, or treated QUERY TEXT: PHYSICIAN'S DOCUMENTATION REQUEST Date of Query: 10/15/2024 07:43 AM EDT Patient Name: Nikky Guevara Admit Date: 10/11/2024 Dear John Charles MD, A review of the medical record indicates additional documentation may be needed. Please review below and update the documentation accordingly. Clinical Indicators: Ed dated 10/10/24 - Patient with bilateral multifocal pneumonia likely aspiration. Clinical impression: Aspiration pneumonia H&P 10/10/24 - Per ER team patient was mildly hypoxic on presentation, placed on supplemental oxygen, chest x-ray showed findings concerning for multifocal pneumonia. Plan: Pneumonia: suspected aspiration vs. HCAP. Possible to give clarity to the noted aspiration noted within the medical record: Aspiration pneumonia was present on admission and is now resolved Aspiration pneumonia was present on admission and is still being monitored, evaluated, or treated Aspiration pneumonia is ruled out Other (explain) Clinically unable to determine (explain) Thank you, Cheryl Salinas, CCS, CDIS Use of terms such as suspected, likely, concern for, or probable (associated with a specific diagnosi s that is being evaluated, monitored, or treated as if it exists) are acceptable and can be coded in the inpatient se tting, when documented at the time of discharge. Please use your independent medical judgment in providing your response. THIS QUERY IS PART OF THE PERMANENT MEDICAL RECORD
[2024-10-15 08:20] LABS: Glucose, Whole Blood 139 mg/dL (60-115)
--- NOTE | 2024-10-15 09:19 | HO.PM.IMPN ---
Subjective Subjective Date of Service: 10/15/24 Interval History: sob Physical Exam Vital Signs: Vital Signs: Last Vital Signs Temp 97.3 F 10/15/24 07:32 Pulse 67 10/15/24 07:42 Resp 18 10/15/24 07:42 BP 137/64 10/15/24 07:32 Pulse Ox 95 10/15/24 07:32 O2 Del Method Nasal Cannula 10/15/24 07:32 O2 Flow Rate 2 10/15/24 07:32 BMI result Body Mass Index 36.4 Const: General: comfortable Orientation/consciousness: patient oriented x3 HEENT: Other: Unremarkable Head: Yes normal to inspection Neck: Neck: Yes normal visual inspection Chest: Chest palpation & inspection: normal inspection of the chest Resp: Auscultation: crackles Cardio: Palpation: normal PMI Heart sounds: S1 normal heart sound present, S2 normal heart sound present, no gallops, no murmurs and no rubs GI: Palpation (GI): Soft to palpation Back/Spine/Pelvis: Other: unremarkable Skin: General skin exam: no rashes or lesions noted Neuro: General: patient oriented x3 Extrem: General: Yes normal to inspection Psych: Mental Status: mental status grossly normal Objective Data Active Medications Acetaminophen (Acetaminophen 325 Mg Tablet) 650 mg PO Q6H PRN PRN Reason: Pain, Mild 1-3,fever,headache Last Admin: 10/14/24 17:50 Dose: 650 mg Documented By: JAYLEN Albuterol/Ipratropium (Albuterol/Iprat 2.5/0.5mg 3 Ml Ampul.Neb) 3 ml INHALE Q4H PRN PRN Reason: Shortness of Breath/Wheezing Atorvastatin Calcium (Atorvastatin Calcium 20 Mg Tablet) 20 mg PO BEDTIME [facility] Last Admin: 10/14/24 22:40 Dose: 20 mg Documented By: SHERINE Benzonatate (Benzonatate 100 Mg Capsule) 100 mg PO TID PRN PRN Reason: Cough Last Admin: 10/13/24 10:15 Dose: 100 mg Documented By: ROSALIE Calcium Carbonate (Calcium Carbonate 750 Mg Tab.Chew) 750 mg PO Q4H PRN PRN Reason: Heartburn Dextrose (Dextrose 50 % 25 Gm/50 Ml Syringe) 25 gm IVPUSH Q15M PRN; Protocol PRN Reason: per Hypoglycemia Standing Ord. Erythromycin (Erythromycin Base 0.5% Oph Oin 1 Gm Tube) 1 cm EYE-RIGHT BID [facility] Last Admin: 10/14/24 22:40 Dose: 1 cm Documented By: SHERINE Fluticasone/Vilanterol (Fluticasone/Vilanterol 200/25 Blst.W.Dev) 1 puff INHALE RDAILY [facility] Last Admin: 10/15/24 07:42 Dose: 1 puff Documented By: WEN Furosemide (Furosemide 20 Mg Tablet) 60 mg PO DAILY [facility]; Protocol Last Admin: 10/14/24 08:03 Dose: 60 mg Documented By: JAYLEN Glucose (Glucose Gel 15 Gm Gel..Gram.) 15 gm PO Q15M PRN; Protocol PRN Reason: per Hypoglycemia Standing Ord. Piperacillin Sod/Tazobactam (Sod 3.375 gm/ Sodium Chloride) 50 mls @ 100 mls/hr IV Q6H [facility] Insulin Glargine (Insulin Glargine,Hum.Rec.Anlog 100 Unit/Ml 10 Ml Vial) 26 unit SUBCUT DAILY [facility] Last Admin: 10/14/24 08:02 Dose: 26 unit Documented By: JAYLEN Insulin Human Lispro (Insulin Lispro 100 Unit/Ml 3 Ml Vial) 0 unit SUBCUT QIDACHS [facility]; Protocol Last Admin: 10/15/24 08:35 Dose: Not Given Documented By: HEENA Non-Admin Reason: No Insulin Coverage Levothyroxine Sodium (Levothyroxine Sodium 100 Mcg Tablet) 100 mcg PO DAILY@0600 [facility] Last Admin: 10/15/24 05:51 Dose: 100 mcg Documented By: SHERINE Lidocaine (Lidocaine 4 % Patch Adh..Patch) 1 patch TRANSDERMA DAILY [facility]; Protocol Last Admin: 10/14/24 08:04 Dose: 1 patch Documented By: JAYLEN Magnesium Hydroxide (Milk Of Magnesia 30 Ml Oral.Susp) 30 ml PO DAILY PRN PRN Reason: Constipation Melatonin (Melatonin 3 Mg Tablet) 6 mg PO BEDTIME PRN PRN Reason: Insomnia Last Admin: 10/13/24 23:40 Dose: 6 mg Documented By: BUCKY Metoprolol Tartrate (Metoprolol Tartrate 12.5 Mg Halftab) 12.5 mg PO BID [facility]; Protocol Last Admin: 10/14/24 22:38 Dose: Not Given Documented By: SHERINE Non-Admin Reason: HR 47 Omeprazole (Omeprazole 20 Mg Capsule.Dr) 20 mg PO BID@0630,1630 [facility] Last Admin: 10/15/24 05:52 Dose: 20 mg Documented By: SHERINE Ondansetron HCl (Ondansetron Hcl 4 Mg/2 Ml Vial) 4 mg IVPUSH Q6H PRN PRN Reason: Nausea Last Admin: 10/13/24 10:15 Dose: 4 mg Documented By: ROSALIE Sertraline HCl (Sertraline Hcl 50 Mg Tablet) 50 mg PO DAILY [facility] Last Admin: 10/14/24 08:03 Dose: 50 mg Documented By: JAYLEN Sodium Chloride (0.9 % Sodium Chloride Flush 3 Ml Syringe) 3 ml IVFLUSH QSHIFT [facility] Last Admin: 10/15/24 02:00 Dose: 3 ml Documented By: SHERINE Vitamin D (Cholecalciferol (Vitamin D3) 25 Mcg Tablet) 50 mcg PO DAILY [facility] Last Admin: 10/14/24 08:03 Dose: 50 mcg Documented By: JAYLEN Warfarin Sodium (Warfarin Sodium 4 Mg Tablet) 4 mg PO SUTUWETHFRSA@1800 [facility] Last Admin: 10/13/24 18:00 Dose: 4 mg Documented By: ROSALIE Warfarin Sodium (Warfarin Sodium 2 Mg Tablet) 2 mg PO MO@1800 [facility] Last Admin: 10/14/24 17:44 Dose: 2 mg Documented By: JAYLEN Labs 10/15/24 06:57 10/15/24 06:57 Labs: Laboratory Results - last 24 hr 10/12/24 10/13/24 10/14/24 07:26 21:24 11:20 MCV MCH MCHC RDW Plt Count MPV Absolute Nucleated RBC Nucleated RBC % (auto) PT INR Anion Gap Estim Creat Clear Calc Estimated GFR POC Glucose 169 H 158 H 150 H Random Glucose Calcium 10/14/24 10/14/24 10/15/24 15:28 21:46 06:57 MCV 96.0 MCH 30.9 MCHC 32.1 RDW 13.2 Plt Count 231 MPV 11.0 Absolute Nucleated RBC 0.000 Nucleated RBC % (auto) 0.0 PT 24.3 H INR 2.1 H Anion Gap 11 L Estim Creat Clear Calc 48.8 Estimated GFR > 60 POC Glucose 163 H 139 H Random Glucose 124 H Calcium 10.0 10/15/24 07:38 MCV MCH MCHC RDW Plt Count MPV Absolute Nucleated RBC Nucleated RBC % (auto) PT INR Anion Gap Estim Creat Clear Calc Estimated GFR POC Glucose 115 Random Glucose Calcium 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, history of CVA, osteoarthritis, hypothyroid presented with shortness of breath Acute hypoxic respiratory failure secondary to pneumonia (possible aspiration) 3 weeks after influenza MRSA swab negative, dced vanc Continue Zosyn Wean O2 as tolerated - still requiring 2 L desaturates to mid 80s on room air Chronic systolic CHF cardio appreciated Continue metoprolol, Lasix Diabetes Basal bolus insulin History of DVT with supratherapeutic inr inr now in therapeutic range, restarted coumadin CAD Coumadin, statin History of CVA Coumadin, statin Hypothyroid Levothyroxine Full code reason for continued hospitalization: Hypoxia Quality Stroke Does the patient have a stroke diagnosis?: Yes Reason for No Anti-thrombotic by Day Two: N/A - Med Ordered VTE Prior VTE?: No VTE Risk Level:: Medical - moderate - high VTE Device Contraindication: Patient Refused VTE Drug Contraindication: N/A - Med Ordered
[2024-10-15] MEDS: Cholecalciferol (Vitamin D3) 25 MCG TABLET 50 MCG PO (10:32)
[2024-10-15] MEDS: Furosemide 20 MG TABLET 60 MG PO (10:32)
[2024-10-15] MEDS: Metoprolol Tartrate 12.5 MG HALFTAB PO ×2 (10:33→20:18)
[2024-10-15] MEDS: Sertraline HCL 50 MG TABLET PO (10:33)
[2024-10-15] MEDS: Insulin Glargine,Hum.rec.anlog 100 UNIT/ML 10 ML VIAL 26 UNIT SUBCUT (10:33)
[2024-10-15] MEDS: Lidocaine 4 % Patch ADH..PATCH 1 PATCH TRANSDERMA (10:33)
[2024-10-15] MEDS: Erythromycin Base 0.5% Oph Oin 1 GM TUBE 1 CM EYE-RIGHT ×2 (10:33→20:29)
[2024-10-15] MEDS: Acetaminophen 325 MG TABLET 650 MG PO ×2 (10:35→20:17)
[2024-10-15 11:19] LABS: Glucose, Whole Blood 193 mg/dL (60-115)
[2024-10-15] MEDS: Insulin Lispro 100 UNIT/ML 3 ML VIAL SUBCUT ×2 (11:56→21:28)
--- NOTE | 2024-10-15 13:36 | MHC.SL.SWA ---
Risk of Aspiration Due to: Neurological Condition History of Pneumonia Dysphasia Diet Status: Solids not observed by [employer] [employer] [employer] on this date; pt declining offers consistently. Continue w/ CHOPPED/ADVANCED (NDD3) with THIN liquids, pills WHOLE in LIQUID. Patient is able to feed herself, but may need cues to utilize strategies: take small bites, chew food well, clear oral cavity before taking next bite, alternate bites with sips of liquid to clear pocketed material. [employer] to f/u 1-2x. Liquid Consistency and Strategies for Safe Swallow: Liquid Intake Recommendation: Thin Liquid Intake Strategies: No Straws Solid Food Consistency: Dietary Recommendations: Chopped/Advanced (NDD3) Oral Medication Intake: Whole with Liquid Please contact the pharmacy regarding appropriate crushable or liquid drug formulations that are available whenever modified delivery is recommended. Compensatory Strategies and Precautions to be Taken for Safe Swallow: Sitting Upright (90 deg) No Straw Small Bites and Sips Alternate Liquids/Solids Rate of Ingestion Change Supervision While Eating and Drinking for Safe Swallow: Intermittent Supervision Foods to Avoid: Tough, difficult to chew solids Swallowing Recommended Treatments: Compens. Strategy Educat. Recommendation for Speech: Inpatient Speech Therapy Frequency/Duration: M-F Timeline to reassess: PRN Supervisor Communications And Signals Clinican/Clinical Fellow: No Supervisory Statement: I have reviewed and agree with the student/clinical fellow's documentation: N/A Speech Language Pathologist: Emily Ovalle M.A., [facility]
[2024-10-15 16:18] LABS: Glucose, Whole Blood 147 mg/dL (60-115)
[2024-10-15] MEDS: Melatonin 3 MG TABLET 6 MG PO (20:17)
[2024-10-15] MEDS: Atorvastatin Calcium 20 MG TABLET PO (20:18)
[2024-10-15 20:23] LABS: Glucose, Whole Blood 207 mg/dL (60-115)
[2024-10-16 03:57] VITALS: BP 160/68; PULSE 55; RESP 18; TEMP 36; O2SAT 96
[2024-10-16] MEDS: Piperacillin Sodium/Tazobactam 3.375 GM in 0.9 % Sodium Chloride 50 ML IV ×4 (04:34→20:45)
[2024-10-16] MEDS: Omeprazole 20 MG CAPSULE.DR PO ×2 (05:38→16:02)
[2024-10-16] MEDS: Levothyroxine Sodium 100 MCG TABLET PO (05:38)
[2024-10-16 06:53] LABS: VBG Base Excess 13.8 mmol/L; VBG HCO3 41 mmol/L (22-26); VBG pCO2 67 mmHg; VBG pH 7.39 (7.32-7.43); VBG pO2 30 mmHg
[2024-10-16 06:54] LABS: Venous Blood Gas Refer to POC result
[2024-10-16 06:59] LABS: Hematocrit 34.2 % (37.0-47.0); Hemoglobin 10.9 g/dl (12.0-16.0); INTERNATIONAL NORM RATIO 2.2 (0.9-1.1); Mean Corpuscular HGB Conc 31.9 g/dl (31.0-35.0); Mean Corpuscular Hemoglobin 30.7 pg (27.0-33.0); Mean Corpuscular Volume 96.3 fL (80.0-98.0); Mean Platelet Volume 10.5 fL (9.4-12.3); Platelet Count 259 X10*3/uL (160-400); Prothrombin Time 25.8 SEC (10.9-12.4); Red Blood Count 3.55 X10*6/uL (4.20-5.50); Red Cell Distribution Width 13.2 % (11.0-16.0); White Blood Count 8.2 X10*3/uL (4.8-10.8)
[2024-10-16 07:07] VITALS: BP 170/67; PULSE 55; RESP 18; TEMP 36.2; O2SAT 94
[2024-10-16 07:11] LABS: Anion Gap 9 (12-20); Blood Urea Nitrogen 16 mg/dL (9-16); Calcium 9.7 mg/dL (8.4-10.2); Carbon Dioxide 37 mmol/L (22-29); Chloride 102 mmol/L (96-108); Creatinine Clr Calc Pharmacy 49.9; Estimated Glomerular Filt Rate > 60; Glucose Random 120 mg/dL (60-115); Potassium 3.7 mmol/L (3.3-5.1); Sodium 144 mmol/L (135-145)
[2024-10-16 07:14] LABS: Glucose, Whole Blood 116 mg/dL (60-115)
[2024-10-16] MEDS: Fluticasone/Vilanterol 200/25 BLST.W.DEV 1 PUFF INHALE (08:01)
[2024-10-16 08:02] VITALS: PULSE 55; RESP 18; O2SAT 93
[2024-10-16] MEDS: Cholecalciferol (Vitamin D3) 25 MCG TABLET 50 MCG PO (08:08)
[2024-10-16] MEDS: Furosemide 20 MG TABLET 60 MG PO (08:09)
[2024-10-16] MEDS: Erythromycin Base 0.5% Oph Oin 1 GM TUBE 1 CM EYE-RIGHT ×2 (08:10→20:46)
[2024-10-16] MEDS: Insulin Glargine,Hum.rec.anlog 100 UNIT/ML 10 ML VIAL 26 UNIT SUBCUT (08:10)
[2024-10-16] MEDS: Sertraline HCL 50 MG TABLET PO (08:10)
[2024-10-16] MEDS: Lidocaine 4 % Patch ADH..PATCH 1 PATCH TRANSDERMA (08:11)
[2024-10-16] MEDS: 0.9 % Sodium Chloride Flush 3 ML SYRINGE IVFLUSH ×2 (08:19→16:15)
[2024-10-16 11:06] VITALS: BP 146/66; PULSE 55; RESP 18; TEMP 36.4; O2SAT 96
[2024-10-16 11:27] LABS: Glucose, Whole Blood 171 mg/dL (60-115)
--- NOTE | 2024-10-16 11:49 | MHC.SLORD ---
Speech Language Pathology Order Status: Pt sitting in bed, c/o back pain. Family at bedside. Pt requested water, not interested in PO intake at time PRODUCT DESIGN SPECIALIST present. PRODUCT DESIGN SPECIALIST reviewed recc diet with family, provided written reference for NDD3 and NDD2 (Turkish version) at request of pt home [employer]NA[employer] WOMEN. Family and MANAGER WOMEN verbalized understanding of recc diet. RN consulted, no concerns with pt PO tolerance. Family agreed with contacting MD if dysphagia persists as OP or [facility] PRODUCT DESIGN SPECIALIST available for further tx if indicated in future.
--- NOTE | 2024-10-16 12:05 | MHC.CM.PN ---
Per rounds, DCP for pt. in [facility], CM spoke to HCP, Catarina and she is in agreement with pt. going to [facility], referrals out, awaiting response. Pul. rehabs do not accept pt.'s ins. regular [facility] referrals out.
[2024-10-16] MEDS: polyethylene glycoL 3350 17 GM POWD.PACK PO (13:15)
--- NOTE | 2024-10-16 13:46 | HO.PM.IMPN ---
Subjective Subjective Date of Service: 10/16/24 Interval History: seen and evaluated feels little better denies fever or chills no other events overight Review of Systems Review of Systems: Yes all other systems are reviewed and are negative Physical Exam Vital Signs: Vital Signs: Last Vital Signs Temp 97.6 F 10/16/24 11:06 Pulse 55 10/16/24 11:06 Resp 18 10/16/24 11:06 BP 146/66 H 10/16/24 11:06 Pulse Ox 96 10/16/24 11:06 O2 Del Method Nasal Cannula 10/16/24 11:06 O2 Flow Rate 3 10/16/24 11:06 BMI result Body Mass Index 36.4 Const: Other: Constitutional : interactive, not in distress Cardiovascular : no JVP, no lower extremity edema Respiratory : bilateral chest movement, not in resp distress , decreased bilateral air entry, shallow breathing , on O2 supplement Gastrointestinal: soft, lax, Non tender Skin : Warm, Dry Neurological : Alert & oriented , No focal deficit Objective Data Active Medications Acetaminophen (Acetaminophen 325 Mg Tablet) 650 mg PO Q6H PRN PRN Reason: Pain, Mild 1-3,fever,headache Last Admin: 10/15/24 20:17 Dose: 650 mg Documented By: SHERINE Albuterol/Ipratropium (Albuterol/Iprat 2.5/0.5mg 3 Ml Ampul.Neb) 3 ml INHALE Q4H PRN PRN Reason: Shortness of Breath/Wheezing Atorvastatin Calcium (Atorvastatin Calcium 20 Mg Tablet) 20 mg PO BEDTIME [facility] Last Admin: 10/15/24 20:18 Dose: 20 mg Documented By: SHERINE Benzonatate (Benzonatate 100 Mg Capsule) 100 mg PO TID PRN PRN Reason: Cough Last Admin: 10/13/24 10:15 Dose: 100 mg Documented By: ROSALIE Calcium Carbonate (Calcium Carbonate 750 Mg Tab.Chew) 750 mg PO Q4H PRN PRN Reason: Heartburn Dextrose (Dextrose 50 % 25 Gm/50 Ml Syringe) 25 gm IVPUSH Q15M PRN; Protocol PRN Reason: per Hypoglycemia Standing Ord. Erythromycin (Erythromycin Base 0.5% Oph Oin 1 Gm Tube) 1 cm EYE-RIGHT BID [facility] Last Admin: 10/16/24 08:10 Dose: 1 cm Documented By: KYLAH Fluticasone/Vilanterol (Fluticasone/Vilanterol 200/25 Blst.W.Dev) 1 puff INHALE RDAILY [facility] Last Admin: 10/16/24 08:01 Dose: 1 puff Documented By: WEN Furosemide (Furosemide 20 Mg Tablet) 60 mg PO DAILY [facility]; Protocol Last Admin: 10/16/24 08:09 Dose: 60 mg Documented By: KYLAH Glucose (Glucose Gel 15 Gm Gel..Gram.) 15 gm PO Q15M PRN; Protocol PRN Reason: per Hypoglycemia Standing Ord. Piperacillin Sod/Tazobactam (Sod 3.375 gm/ Sodium Chloride) 50 mls @ 100 mls/hr IV Q6H [facility] Last Infusion: 10/16/24 10:33 Dose: Infused Documented By: THOMAS Insulin Glargine (Insulin Glargine,Hum.Rec.Anlog 100 Unit/Ml 10 Ml Vial) 26 unit SUBCUT DAILY [facility] Last Admin: 10/16/24 08:10 Dose: 26 unit Documented By: KYLAH Insulin Human Lispro (Insulin Lispro 100 Unit/Ml 3 Ml Vial) 0 unit SUBCUT QIDACHS [facility]; Protocol Last Admin: 10/16/24 07:46 Dose: Not Given Documented By: KYLAH Non-Admin Reason: No Insulin Coverage Levothyroxine Sodium (Levothyroxine Sodium 100 Mcg Tablet) 100 mcg PO DAILY@0600 [facility] Last Admin: 10/16/24 05:38 Dose: 100 mcg Documented By: SHERINE Lidocaine (Lidocaine 4 % Patch Adh..Patch) 1 patch TRANSDERMA DAILY [facility]; Protocol Last Admin: 10/16/24 08:11 Dose: 1 patch Documented By: KYLAH Magnesium Hydroxide (Milk Of Magnesia 30 Ml Oral.Susp) 30 ml PO DAILY PRN PRN Reason: Constipation Melatonin (Melatonin 3 Mg Tablet) 6 mg PO BEDTIME PRN PRN Reason: Insomnia Last Admin: 10/15/24 20:17 Dose: 6 mg Documented By: SHERINE Metoprolol Tartrate (Metoprolol Tartrate 12.5 Mg Halftab) 12.5 mg PO BID [facility]; Protocol Last Admin: 10/16/24 08:09 Dose: Not Given Documented By: KYLAH Non-Admin Reason: Decreased Heart Rate Omeprazole (Omeprazole 20 Mg Capsule.Dr) 20 mg PO BID@0630,1630 [facility] Last Admin: 10/16/24 05:38 Dose: 20 mg Documented By: SHERINE Ondansetron HCl (Ondansetron Hcl 4 Mg/2 Ml Vial) 4 mg IVPUSH Q6H PRN PRN Reason: Nausea Last Admin: 10/13/24 10:15 Dose: 4 mg Documented By: ROSALIE Polyethylene Glycol (Polyethylene Glycol 3350 17 Gm Powd.Pack) 17 gm PO DAILY [facility] Senna (Sennosides 8.6 Mg Tablet) 8.8 mg PO BEDTIME [facility] Sertraline HCl (Sertraline Hcl 50 Mg Tablet) 50 mg PO DAILY [facility] Last Admin: 10/16/24 08:10 Dose: 50 mg Documented By: KYLAH Sodium Chloride (0.9 % Sodium Chloride Flush 3 Ml Syringe) 3 ml IVFLUSH QSHIFT [facility] Last Admin: 10/16/24 08:19 Dose: 3 ml Documented By: KYLAH Vitamin D (Cholecalciferol (Vitamin D3) 25 Mcg Tablet) 50 mcg PO DAILY [facility] Last Admin: 10/16/24 08:08 Dose: 50 mcg Documented By: KYLAH Warfarin Sodium (Warfarin Sodium 4 Mg Tablet) 4 mg PO SUTUWETHFRSA@1800 [facility] Last Admin: 10/13/24 17:54 Dose: 4 mg Warfarin Sodium (Warfarin Sodium 2 Mg Tablet) 2 mg PO MO@1800 [facility] Last Admin: 10/14/24 17:44 Dose: 2 mg Documented By: JAYLEN Labs 10/16/24 06:36 10/16/24 06:36 Labs: Laboratory Results - last 24 hr 10/15/24 10/15/24 10/16/24 16:15 20:18 06:36 MCV 96.3 MCH 30.7 MCHC 31.9 RDW 13.2 Plt Count 259 MPV 10.5 Absolute Nucleated RBC 0.000 Nucleated RBC % (auto) 0.0 PT 25.8 H INR 2.2 H VBG pH VBG pCO2 VBG pO2 VBG HCO3 VBG O2 Saturation VBG Base Excess Anion Gap 9 L Estim Creat Clear Calc 49.9 Estimated GFR > 60 POC Glucose 147 H 207 H Random Glucose 120 H Calcium 9.7 10/16/24 10/16/24 10/16/24 06:50 07:11 11:25 MCV MCH MCHC RDW Plt Count MPV Absolute Nucleated RBC Nucleated RBC % (auto) PT INR VBG pH 7.39 VBG pCO2 67 VBG pO2 30 VBG HCO3 41 H VBG O2 Saturation 41.0 VBG Base Excess 13.8 Anion Gap Estim Creat Clear Calc Estimated GFR POC Glucose 116 H 171 H Random Glucose Calcium Microbiology Microbiology Results: Microbiology 10/10/24 23:36 Blood Culture - Final Blood - Venous No growth after 5 days. 10/10/24 23:28 Blood Culture - Final Blood - Venous No growth after 5 days. 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, history of CVA, osteoarthritis, hypothyroid presented with shortness of breath Acute hypoxic respiratory failure secondary to pneumonia (possible aspiration) 3 weeks after influenza MRSA swab negative, dced vanc Continue Zosyn Mucinex Incentive spirometry repeat CXR Wean O2 as tolerated - still requiring 2 L desaturates to mid 80s on room air Chronic systolic CHF cardio appreciated Continue metoprolol, Lasix Diabetes Basal bolus insulin History of DVT with supratherapeutic inr inr now in therapeutic range, restarted coumadin CAD Coumadin, statin History of CVA Coumadin, statin Hypothyroid Levothyroxine Full code reason for continued hospitalization: Hypoxia Quality Stroke Does the patient have a stroke diagnosis?: Yes Reason for No Anti-thrombotic by Day Two: N/A - Med Ordered VTE Prior VTE?: No VTE Risk Level:: Medical - moderate - high VTE Device Contraindication: Patient Refused VTE Drug Contraindication: N/A - Med Ordered
[2024-10-16 15:19] VITALS: BP 166/70; PULSE 54; RESP 18; TEMP 36; O2SAT 96
[2024-10-16 15:34] LABS: Glucose, Whole Blood 153 mg/dL (60-115)
[2024-10-16] MEDS: guaiFENesin LA 600 MG TAB.ER.12H PO ×2 (16:02→20:45)
[2024-10-16] MEDS: Insulin Lispro 100 UNIT/ML 3 ML VIAL SUBCUT ×2 (17:09→21:01)
[2024-10-16] MEDS: Warfarin Sodium 4 MG TABLET PO (17:25)
[2024-10-16 19:27] VITALS: BP 133/71; PULSE 58; RESP 20; TEMP 36.7; O2SAT 95
[2024-10-16] MEDS: Metoprolol Tartrate 12.5 MG HALFTAB PO (20:45)
[2024-10-16] MEDS: Atorvastatin Calcium 20 MG TABLET PO (20:45)
[2024-10-16] MEDS: Sennosides 8.6 MG TABLET 8.8 MG PO (20:46)
[2024-10-16 20:57] LABS: Glucose, Whole Blood 158 mg/dL (60-115)
[2024-10-17] VITALS (9 sets, daily range): BP systolic 130–156; BP diastolic 61–86; PULSE 54–68; RESP 13–19; TEMP 36–36.5; O2SAT 94–97
[2024-10-17] MEDS: Piperacillin Sodium/Tazobactam 3.375 GM in 0.9 % Sodium Chloride 50 ML IV ×4 (03:08→20:57)
[2024-10-17] MEDS: 0.9 % Sodium Chloride Flush 3 ML SYRINGE IVFLUSH ×2 (03:08→09:07)
[2024-10-17] MEDS: Levothyroxine Sodium 100 MCG TABLET PO (06:09)
[2024-10-17] MEDS: Omeprazole 20 MG CAPSULE.DR PO ×2 (06:09→17:06)
[2024-10-17 06:17] LABS: MANUAL DIFF FLAG NO
[2024-10-17 06:25] LABS: INTERNATIONAL NORM RATIO 2.1 (0.9-1.1); Prothrombin Time 24.4 SEC (10.9-12.4)
[2024-10-17 06:27] LABS: Basophils Absolute Auto 0.1 X10*3/uL (0.0-0.2); Basophils Percent Auto 0.6 % (0-2); Eosinophils Absolute Auto 0.3 X10*3/uL (0.0-0.4); Eosinophils Percent Auto 3.7 % (0-4); Hematocrit 35.1 % (37.0-47.0); Hemoglobin 11.2 g/dl (12.0-16.0); Imm Gran Abs Auto 0.14 X10*3/uL (0.00-0.03); Imm Gran Pct Auto 1.5 % (0.0-0.4); Lymphocytes Absolute Auto 1.6 X10*3/uL (1.2-4.9); Lymphocytes Percent Auto 17.6 % (20-40); Mean Corpuscular HGB Conc 31.9 g/dl (31.0-35.0); Mean Corpuscular Hemoglobin 30.4 pg (27.0-33.0); Mean Corpuscular Volume 95.4 fL (80.0-98.0); Mean Platelet Volume 10.6 fL (9.4-12.3); Monocytes Absolute Auto 0.5 X10*3/uL (0.1-1.2); Monocytes Percent Auto 5.7 % (2-11); Neutrophils Absolute Auto 6.6 x10*3/uL (2.0-8.3); Neutrophils Percent Auto 70.9 % (45-73); Platelet Count 278 X10*3/uL (160-400); Red Blood Count 3.68 X10*6/uL (4.20-5.50); Red Cell Distribution Width 13.2 % (11.0-16.0); White Blood Count 9.3 X10*3/uL (4.8-10.8)
[2024-10-17 06:38] LABS: Anion Gap 10 (12-20); Blood Urea Nitrogen 13 mg/dL (9-16); Calcium 9.7 mg/dL (8.4-10.2); Carbon Dioxide 37 mmol/L (22-29); Chloride 100 mmol/L (96-108); Creatinine Clr Calc Pharmacy 55.8; Estimated Glomerular Filt Rate > 60; Glucose Random 93 mg/dL (60-115); Potassium 3.1 mmol/L (3.3-5.1); Sodium 144 mmol/L (135-145)
[2024-10-17 07:14] LABS: Glucose, Whole Blood 92 mg/dL (60-115)
[2024-10-17] MEDS: Fluticasone/Vilanterol 200/25 BLST.W.DEV 1 PUFF INHALE (08:56)
[2024-10-17] MEDS: Lidocaine 4 % Patch ADH..PATCH 1 PATCH TRANSDERMA (09:00)
[2024-10-17] MEDS: Cholecalciferol (Vitamin D3) 25 MCG TABLET 50 MCG PO (09:01)
[2024-10-17] MEDS: Sertraline HCL 50 MG TABLET PO (09:01)
[2024-10-17] MEDS: guaiFENesin LA 600 MG TAB.ER.12H PO ×2 (09:02→22:32)
[2024-10-17] MEDS: Furosemide 20 MG TABLET 60 MG PO (09:02)
[2024-10-17] MEDS: Metoprolol Tartrate 12.5 MG HALFTAB PO (09:02)
[2024-10-17] MEDS: Erythromycin Base 0.5% Oph Oin 1 GM TUBE 1 CM EYE-RIGHT ×2 (09:03→20:57)
[2024-10-17] MEDS: polyethylene glycoL 3350 17 GM POWD.PACK PO (09:03)
[2024-10-17] MEDS: Insulin Glargine,Hum.rec.anlog 100 UNIT/ML 10 ML VIAL 26 UNIT SUBCUT (09:03)
[2024-10-17 11:19] LABS: Glucose, Whole Blood 188 mg/dL (60-115)
[2024-10-17] MEDS: Potassium Chloride Packet 20 MEQ PACKET 40 MEQ PO (11:34)
--- NOTE | 2024-10-17 12:09 | ECG_ITS ---
Test Reason : CP Blood Pressure : */* mmHG Vent. Rate : 48 BPM Atrial Rate : 220 BPM P-R Int : * ms QRS Dur : 94 ms QT Int : 324 ms P-R-T Axes : 135 29 70 degrees QTcB Int : 289 ms Atrial flutter with variable A-V block Nonspecific T wave abnormality Abnormal ECG When compared with ECG of 11-Oct-2024 01:23, Atrial flutter has replaced Junctional rhythm Vent. rate has decreased by 33 bpm Nonspecific T wave abnormality now evident in Anterior leads QT has shortened Referred By: Jairon Byers Electronically Signed By: Jon Blancas
[2024-10-17] MEDS: Insulin Lispro 100 UNIT/ML 3 ML VIAL SUBCUT ×3 (12:24→21:08)
--- NOTE | 2024-10-17 12:33 | P.PNIM_ITS ---
Subjective Subjective Date of Service: 10/17/24 Interval History: seen and evaluated feels little better did not move bowels yet denies fever or chills no other events overight Review of Systems Review of Systems: Yes all other systems are reviewed and are negative Physical Exam 2 Vital Signs: Vital Signs: Last Vital Signs Temp 96.8 F 10/17/24 10:59 Pulse 54 10/17/24 10:59 Resp 13 10/17/24 10:59 BP 136/61 10/17/24 10:59 Pulse Ox 95 10/17/24 12:08 O2 Del Method Nasal Cannula 10/17/24 10:59 O2 Flow Rate 95 10/17/24 10:59 BMI result Body Mass Index 36.4 Const: Other: Constitutional : interactive, not in distress Cardiovascular : no JVP, no lower extremity edema Respiratory : bilateral chest movement, not in resp distress , decreased bilateral air entry, shallow breathing , on O2 supplement Gastrointestinal: soft, lax, Non tender Skin : Warm, Dry Neurological : Alert & oriented , No focal deficit Objective Data Active Medications Acetaminophen (Acetaminophen 325 Mg Tablet) 650 mg PO Q6H PRN PRN Reason: Pain, Mild 1-3,fever,headache Last Admin: 10/15/24 20:17 Dose: 650 mg Documented By: SHERINE Albuterol/Ipratropium (Albuterol/Iprat 2.5/0.5mg 3 Ml Ampul.Neb) 3 ml INHALE Q4H PRN PRN Reason: Shortness of Breath/Wheezing Atorvastatin Calcium (Atorvastatin Calcium 20 Mg Tablet) 20 mg PO BEDTIME [facility] Last Admin: 10/16/24 20:45 Dose: 20 mg Documented By: MICH Benzonatate (Benzonatate 100 Mg Capsule) 100 mg PO TID PRN PRN Reason: Cough Last Admin: 10/13/24 10:15 Dose: 100 mg Documented By: ROSALIE Calcium Carbonate (Calcium Carbonate 750 Mg Tab.Chew) 750 mg PO Q4H PRN PRN Reason: Heartburn Dextrose (Dextrose 50 % 25 Gm/50 Ml Syringe) 25 gm IVPUSH Q15M PRN; Protocol PRN Reason: per Hypoglycemia Standing Ord. Erythromycin (Erythromycin Base 0.5% Oph Oin 1 Gm Tube) 1 cm EYE-RIGHT BID [facility] Last Admin: 10/17/24 09:03 Dose: 1 cm Documented By: JACOBO Fluticasone/Vilanterol (Fluticasone/Vilanterol 200/25 Blst.W.Dev) 1 puff INHALE RDAILY [facility] Last Admin: 10/17/24 08:56 Dose: 1 puff Documented By: DESIRE Furosemide (Furosemide 20 Mg Tablet) 60 mg PO DAILY [facility]; Protocol Last Admin: 10/17/24 09:02 Dose: 60 mg Documented By: JACOBO Glucose (Glucose Gel 15 Gm Gel..Gram.) 15 gm PO Q15M PRN; Protocol PRN Reason: per Hypoglycemia Standing Ord. Guaifenesin (Guaifenesin La 600 Mg Tab.Er.12h) 600 mg PO BID [facility] Last Admin: 10/17/24 09:02 Dose: 600 mg Documented By: JACOBO Piperacillin Sod/Tazobactam (Sod 3.375 gm/ Sodium Chloride) 50 mls @ 100 mls/hr IV Q6H [facility] Last Infusion: 10/17/24 10:01 Dose: Infused Documented By: JACOBO Insulin Glargine (Insulin Glargine,Hum.Rec.Anlog 100 Unit/Ml 10 Ml Vial) 26 unit SUBCUT DAILY [facility] Last Admin: 10/17/24 09:03 Dose: 26 unit Documented By: JACOBO Insulin Human Lispro (Insulin Lispro 100 Unit/Ml 3 Ml Vial) 0 unit SUBCUT QIDACHS [facility]; Protocol Last Admin: 10/17/24 12:24 Dose: 2 unit Documented By: JACOBO Levothyroxine Sodium (Levothyroxine Sodium 100 Mcg Tablet) 100 mcg PO DAILY@0600 [facility] Last Admin: 10/17/24 06:09 Dose: 100 mcg Documented By: MICH Lidocaine (Lidocaine 4 % Patch Adh..Patch) 1 patch TRANSDERMA DAILY [facility]; Protocol Last Admin: 10/17/24 09:00 Dose: 1 patch Documented By: JACOBO Magnesium Hydroxide (Milk Of Magnesia 30 Ml Oral.Susp) 30 ml PO DAILY PRN PRN Reason: Constipation Melatonin (Melatonin 3 Mg Tablet) 6 mg PO BEDTIME PRN PRN Reason: Insomnia Last Admin: 10/15/24 20:17 Dose: 6 mg Documented By: SHERINE Metoprolol Tartrate (Metoprolol Tartrate 12.5 Mg Halftab) 12.5 mg PO BID [facility]; Protocol Last Admin: 10/17/24 09:02 Dose: 12.5 mg Documented By: JACOBO Omeprazole (Omeprazole 20 Mg Capsule.Dr) 20 mg PO BID@0630,1630 [facility] Last Admin: 10/17/24 06:09 Dose: 20 mg Documented By: MICH Ondansetron HCl (Ondansetron Hcl 4 Mg/2 Ml Vial) 4 mg IVPUSH Q6H PRN PRN Reason: Nausea Last Admin: 10/13/24 10:15 Dose: 4 mg Documented By: ROSALIE Polyethylene Glycol (Polyethylene Glycol 3350 17 Gm Powd.Pack) 17 gm PO DAILY [facility] Last Admin: 10/17/24 09:03 Dose: 17 gm Documented By: JACOBO Senna (Sennosides 8.6 Mg Tablet) 8.8 mg PO BEDTIME [facility] Last Admin: 10/16/24 20:46 Dose: 8.6 mg Documented By: MICH Sertraline HCl (Sertraline Hcl 50 Mg Tablet) 50 mg PO DAILY [facility] Last Admin: 10/17/24 09:01 Dose: 50 mg Documented By: JACOBO Sodium Chloride (0.9 % Sodium Chloride Flush 3 Ml Syringe) [facility] Last Admin: 10/17/24 09:07 Dose: 3 ml Documented By: JACOBO Vitamin D (Cholecalciferol (Vitamin D3) 25 Mcg Tablet) 50 mcg PO DAILY [facility] Last Admin: 10/17/24 09:01 Dose: 50 mcg Documented By: JACOBO Warfarin Sodium (Warfarin Sodium 4 Mg Tablet) 4 mg PO SUTUWETHFRSA@1800 [facility] Last Admin: 10/16/24 17:25 Dose: 4 mg Documented By: THOMAS Warfarin Sodium (Warfarin Sodium 2 Mg Tablet) 2 mg PO MO@1800 [facility] Last Admin: 10/14/24 17:44 Dose: 2 mg Documented By: JAYLEN Labs 10/17/24 05:53 10/17/24 05:53 Labs: Laboratory Results - last 24 hr 10/16/24 10/16/24 10/17/24 15:27 20:48 05:53 MCV 95.4 MCH 30.4 MCHC 31.9 RDW 13.2 Plt Count 278 MPV 10.6 Immature Gran % (Auto) 1.5 H Neut % (Auto) 70.9 Lymph % (Auto) 17.6 L Dougherty % (Auto) 5.7 Eos % (Auto) 3.7 Baso % (Auto) 0.6 Lymph # (Auto) 1.6 Dougherty # (Auto) 0.5 Eos # (Auto) 0.3 Baso # (Auto) 0.1 Abs Immat Gran (auto) 0.14 H Absolute Neuts (auto) 6.6 Absolute Nucleated RBC 0.000 Nucleated RBC % (auto) 0.0 PT 24.4 H INR 2.1 H Anion Gap 10 L Estim Creat Clear Calc 55.8 Estimated GFR > 60 POC Glucose 153 H 158 H Random Glucose 93 Calcium 9.7 10/17/24 10/17/24 07:09 11:09 MCV MCH MCHC RDW Plt Count MPV Immature Gran % (Auto) Neut % (Auto) Lymph % (Auto) Dougherty % (Auto) Eos % (Auto) Baso % (Auto) Lymph # (Auto) Dougherty # (Auto) Eos # (Auto) Baso # (Auto) Abs Immat Gran (auto) Absolute Neuts (auto) Absolute Nucleated RBC Nucleated RBC % (auto) PT INR Anion Gap Estim Creat Clear Calc Estimated GFR POC Glucose 92 188 H Random Glucose Calcium Assessment and Plan (1) Acute respiratory failure with hypoxia: Status: Acute (2) Pneumonia: Status: Acute (3) Elevated troponin: Status: Acute Plan 89F PMH HTN, hyperlipidemia, diabetes, coronary disease, chronic systolic CHF, moderate persistent asthma, GERD, 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, history of CVA, osteoarthritis, hypothyroid presented with shortness of breath Acute hypoxic respiratory failure secondary to pneumonia (possible aspiration) 3 weeks after influenza MRSA swab negative, dced vanc Continue Zosyn Mucinex Incentive spirometry repeat CXR Wean O2 as tolerated - still requiring 2 L desaturates to mid 80s on room air Chronic systolic CHF cardiology input appreciated Continue metoprolol, Lasix Diabetes Basal bolus insulin History of DVT with supratherapeutic inr inr now in therapeutic range, restarted coumadin CAD Coumadin, statin History of CVA Coumadin, statin Hypothyroid Levothyroxine Full code reason for continued hospitalization: Hypoxia Quality Stroke Does the patient have a stroke diagnosis?: Yes Reason for No Anti-thrombotic by Day Two: N/A - Med Ordered VTE Prior VTE?: No VTE Risk Level:: Medical - moderate - high VTE Device Contraindication: Patient Refused VTE Drug Contraindication: N/A - Med Ordered
[2024-10-17 16:02] LABS: Glucose, Whole Blood 195 mg/dL (60-115)
[2024-10-17] MEDS: Warfarin Sodium 4 MG TABLET PO (17:06)
--- NOTE | 2024-10-17 17:07 | MHC.SLORD ---
Speech Language Pathology Order Status: Patient observed at lunch for toleration of diet, being well cared for and fed by [employer]. Patient tolerating diet well, pleased with meal, has been stable on this diet for extended period.
[2024-10-17 20:22] LABS: Glucose, Whole Blood 184 mg/dL (60-115)
[2024-10-17] MEDS: Sennosides 8.6 MG TABLET 8.8 MG PO (20:56)
[2024-10-17] MEDS: Atorvastatin Calcium 20 MG TABLET PO (20:57)
[2024-10-18] VITALS (9 sets, daily range): BP systolic 131–165; BP diastolic 57–73; PULSE 51–67; RESP 17–18; TEMP 36.2–36.8; O2SAT 92–97
[2024-10-18] MEDS: Piperacillin Sodium/Tazobactam 3.375 GM in 0.9 % Sodium Chloride 50 ML IV ×4 (03:53→22:50)
[2024-10-18] MEDS: Levothyroxine Sodium 100 MCG TABLET PO (05:09)
[2024-10-18] MEDS: Omeprazole 20 MG CAPSULE.DR PO ×2 (05:09→15:38)
[2024-10-18 06:28] LABS: INTERNATIONAL NORM RATIO 2.1 (0.9-1.1); Prothrombin Time 24.5 SEC (10.9-12.4)
[2024-10-18 06:38] LABS: Anion Gap 11 (12-20); Blood Urea Nitrogen 16 mg/dL (9-16); Calcium 9.9 mg/dL (8.4-10.2); Carbon Dioxide 31 mmol/L (22-29); Chloride 103 mmol/L (96-108); Creatinine Clr Calc Pharmacy 52.4; Estimated Glomerular Filt Rate > 60; Glucose Random 116 mg/dL (60-115); Potassium 3.3 mmol/L (3.3-5.1); Sodium 142 mmol/L (135-145)
[2024-10-18 07:41] LABS: Glucose, Whole Blood 114 mg/dL (60-115)
[2024-10-18] MEDS: Fluticasone/Vilanterol 200/25 BLST.W.DEV 1 PUFF INHALE (08:04)
[2024-10-18] MEDS: polyethylene glycoL 3350 17 GM POWD.PACK PO (09:30)
[2024-10-18] MEDS: Insulin Glargine,Hum.rec.anlog 100 UNIT/ML 10 ML VIAL 26 UNIT SUBCUT (09:30)
[2024-10-18] MEDS: Furosemide 20 MG TABLET 60 MG PO (09:30)
[2024-10-18] MEDS: Cholecalciferol (Vitamin D3) 25 MCG TABLET 50 MCG PO (09:31)
[2024-10-18] MEDS: Acetaminophen 325 MG TABLET 650 MG PO ×2 (09:31→22:49)
[2024-10-18] MEDS: 0.9 % Sodium Chloride Flush 3 ML SYRINGE IVFLUSH ×2 (09:32→15:38)
[2024-10-18] MEDS: Erythromycin Base 0.5% Oph Oin 1 GM TUBE 1 CM EYE-RIGHT ×2 (09:32→22:47)
[2024-10-18] MEDS: Sertraline HCL 50 MG TABLET PO (09:32)
[2024-10-18] MEDS: guaiFENesin LA 600 MG TAB.ER.12H PO ×2 (09:32→22:47)
[2024-10-18] MEDS: Lidocaine 4 % Patch ADH..PATCH 1 PATCH TRANSDERMA (09:57)
[2024-10-18 11:09] LABS: Glucose, Whole Blood 200 mg/dL (60-115)
[2024-10-18] MEDS: Insulin Lispro 100 UNIT/ML 3 ML VIAL SUBCUT ×2 (11:23→22:49)
--- NOTE | 2024-10-18 13:08 | MHC.SLORD ---
Speech Language Pathology Order Status: Patient has been stable on diet recommended by [employer] (NDD3) and THIN liquids with total supervision. RN reports patient has been tolerating without overt difficulty. Please re-refer with any further concern.
--- NOTE | 2024-10-18 13:23 | HO.PM.IMPN ---
Subjective Subjective Date of Service: 10/18/24 Interval History: seen and evaluated feels little better did not move bowels yet denies fever or chills no other events overight Physical Exam Vital Signs: Vital Signs: Last Vital Signs Temp 97.5 F 10/18/24 11:49 Pulse 54 10/18/24 11:54 Resp 17 10/18/24 11:49 BP 139/59 L 10/18/24 11:54 Pulse Ox 96 10/18/24 11:54 O2 Del Method Nasal Cannula 10/18/24 11:49 O2 Flow Rate 2 10/18/24 11:49 BMI result Body Mass Index 36.4 Const: Other: Constitutional : interactive, not in distress Cardiovascular : no JVP, no lower extremity edema Respiratory : bilateral chest movement, not in resp distress , decreased bilateral air entry, shallow breathing , on O2 supplement Gastrointestinal: soft, lax, Non tender Skin : Warm, Dry Neurological : Alert & oriented , No focal deficit Objective Data Active Medications Acetaminophen (Acetaminophen 325 Mg Tablet) 650 mg PO Q6H PRN PRN Reason: Pain, Mild 1-3,fever,headache Last Admin: 10/18/24 09:31 Dose: 650 mg Documented By: SIVA Atorvastatin Calcium (Atorvastatin Calcium 20 Mg Tablet) 20 mg PO BEDTIME [facility] Last Admin: 10/17/24 20:57 Dose: 20 mg Documented By: MICH Benzonatate (Benzonatate 100 Mg Capsule) 100 mg PO TID PRN PRN Reason: Cough Last Admin: 10/13/24 10:15 Dose: 100 mg Documented By: ROSALIE Calcium Carbonate (Calcium Carbonate 750 Mg Tab.Chew) 750 mg PO Q4H PRN PRN Reason: Heartburn Dextrose (Dextrose 50 % 25 Gm/50 Ml Syringe) 25 gm IVPUSH Q15M PRN; Protocol PRN Reason: per Hypoglycemia Standing Ord. Erythromycin (Erythromycin Base 0.5% Oph Oin 1 Gm Tube) 1 cm EYE-RIGHT BID [facility] Last Admin: 10/18/24 09:32 Dose: 1 cm Documented By: SIVA Fluticasone/Vilanterol (Fluticasone/Vilanterol 200/25 Blst.W.Dev) 1 puff INHALE RDAILY [facility] Last Admin: 10/18/24 08:04 Dose: 1 puff Documented By: WEN Furosemide (Furosemide 20 Mg Tablet) 60 mg PO DAILY [facility]; Protocol Last Admin: 10/18/24 09:30 Dose: 60 mg Documented By: SIVA Glucose (Glucose Gel 15 Gm Gel..Gram.) 15 gm PO Q15M PRN; Protocol PRN Reason: per Hypoglycemia Standing Ord. Guaifenesin (Guaifenesin La 600 Mg Tab.Er.12h) 600 mg PO BID [facility] Last Admin: 10/18/24 09:32 Dose: 600 mg Documented By: SIVA Piperacillin Sod/Tazobactam (Sod 3.375 gm/ Sodium Chloride) 50 mls @ 100 mls/hr IV Q6H [facility] Last Infusion: 10/18/24 11:06 Dose: Infused Documented By: SIVA Insulin Glargine (Insulin Glargine,Hum.Rec.Anlog 100 Unit/Ml 10 Ml Vial) 26 unit SUBCUT DAILY [facility] Last Admin: 10/18/24 09:30 Dose: 26 unit Documented By: SIVA Insulin Human Lispro (Insulin Lispro 100 Unit/Ml 3 Ml Vial) 0 unit SUBCUT QIDACHS [facility]; Protocol Last Admin: 10/18/24 11:23 Dose: 2 unit Documented By: SIVA Comments: Levothyroxine Sodium (Levothyroxine Sodium 100 Mcg Tablet) 100 mcg PO DAILY@0600 [facility] Last Admin: 10/18/24 05:09 Dose: 100 mcg Documented By: MICH Lidocaine (Lidocaine 4 % Patch Adh..Patch) 1 patch TRANSDERMA DAILY [facility]; Protocol Last Admin: 10/18/24 09:57 Dose: 1 patch Documented By: SIVA Magnesium Hydroxide (Milk Of Magnesia 30 Ml Oral.Susp) 30 ml PO DAILY PRN PRN Reason: Constipation Melatonin (Melatonin 3 Mg Tablet) 6 mg PO BEDTIME PRN PRN Reason: Insomnia Last Admin: 10/15/24 20:17 Dose: 6 mg Documented By: SHERINE Metoprolol Tartrate (Metoprolol Tartrate 12.5 Mg Halftab) 12.5 mg PO BID [facility]; Protocol Last Admin: 10/17/24 09:02 Dose: 12.5 mg Documented By: JACOBO Omeprazole (Omeprazole 20 Mg Capsule.) 20 mg PO BID@0630,1630 [facility] Last Admin: 10/18/24 05:09 Dose: 20 mg Documented By: MICH Ondansetron HCl (Ondansetron Hcl 4 Mg/2 Ml Vial) 4 mg IVPUSH Q6H PRN PRN Reason: Nausea Last Admin: 10/13/24 10:15 Dose: 4 mg Documented By: ROSALIE Polyethylene Glycol (Polyethylene Glycol 3350 17 Gm Powd.Pack) 17 gm PO DAILY [facility] Last Admin: 10/18/24 09:30 Dose: 17 gm Documented By: SIVA Senna (Sennosides 8.6 Mg Tablet) 8.8 mg PO BEDTIME [facility] Last Admin: 10/17/24 20:56 Dose: 8.4 mg Documented By: MICH Sertraline HCl (Sertraline Hcl 50 Mg Tablet) 50 mg PO DAILY [facility] Last Admin: 10/18/24 09:32 Dose: 50 mg Documented By: SIVA Sodium Chloride (0.9 % Sodium Chloride Flush 3 Ml Syringe) 3 ml IVFLUSH QSHIFT [facility] Last Admin: 10/18/24 09:32 Dose: 3 ml Documented By: SIVA Vitamin D (Cholecalciferol (Vitamin D3) 25 Mcg Tablet) 50 mcg PO DAILY [facility] Last Admin: 10/18/24 09:31 Dose: 50 mcg Documented By: SIVA Warfarin Sodium (Warfarin Sodium 2 Mg Tablet) 2 mg PO MO@1800 [facility] Last Admin: 10/14/24 17:44 Dose: 2 mg Documented By: JAYLEN Warfarin Sodium (Warfarin Sodium 4 Mg Tablet) 4 mg PO SUTUWETHFRSA@1800 [facility] Labs 10/17/24 05:53 10/18/24 05:56 Labs: Laboratory Results - last 24 hr 10/17/24 10/17/24 10/18/24 15:58 20:19 05:56 PT 24.5 H INR 2.1 H Anion Gap 11 L Estim Creat Clear Calc 52.4 Estimated GFR > 60 POC Glucose 195 H 184 H Random Glucose 116 H Calcium 9.9 10/18/24 10/18/24 07:29 11:04 PT INR Anion Gap Estim Creat Clear Calc Estimated GFR POC Glucose 114 200 H Random Glucose Calcium Assessment and Plan (1) Acute respiratory failure with hypoxia: Status: Acute (2) Pneumonia: Status: Acute (3) Physical deconditioning: Status: Acute Plan 89F PMH HTN, hyperlipidemia, diabetes, coronary disease, chronic systolic CHF, moderate persistent asthma, GERD, 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, history of CVA, osteoarthritis, hypothyroid presented with shortness of breath Acute hypoxic respiratory failure secondary to pneumonia (possible aspiration) 3 weeks after influenza MRSA swab negative, dced vanc Continue Zosyn Mucinex Incentive spirometry Wean O2 as tolerated - still requiring 2 L Chronic systolic CHF cardiology input appreciated Continue metoprolol, Lasix Diabetes Basal bolus insulin History of DVT with supratherapeutic inr inr now in therapeutic range, restarted coumadin CAD Coumadin, statin History of CVA Coumadin, statin Hypothyroid Levothyroxine Full code reason for continued hospitalization: Hypoxia Quality Stroke Does the patient have a stroke diagnosis?: Yes Reason for No Anti-thrombotic by Day Two: N/A - Med Ordered VTE Prior VTE?: No VTE Risk Level:: Medical - moderate - high VTE Device Contraindication: Patient Refused VTE Drug Contraindication: N/A - Med Ordered
[2024-10-18 16:24] LABS: Glucose, Whole Blood 145 mg/dL (60-115)
[2024-10-18] MEDS: Warfarin Sodium 4 MG TABLET PO (16:56)
[2024-10-18 20:26] LABS: Glucose, Whole Blood 239 mg/dL (60-115)
[2024-10-18] MEDS: Atorvastatin Calcium 20 MG TABLET PO (22:47)
[2024-10-18] MEDS: Sennosides 8.6 MG TABLET 8.8 MG PO (22:48)
[2024-10-19] MEDS: Omeprazole 20 MG CAPSULE.DR PO ×2 (03:03→15:41)
[2024-10-19] MEDS: Piperacillin Sodium/Tazobactam 3.375 GM in 0.9 % Sodium Chloride 50 ML IV ×4 (03:04→22:26)
[2024-10-19] MEDS: Levothyroxine Sodium 100 MCG TABLET PO (03:04)
[2024-10-19 03:49] VITALS: BP 127/64; PULSE 52; RESP 16; TEMP 36.4; O2SAT 97
[2024-10-19 06:55] LABS: INTERNATIONAL NORM RATIO 2.1 (0.9-1.1); Prothrombin Time 24.5 SEC (10.9-12.4)
[2024-10-19 07:47] VITALS: BP 145/69; PULSE 56; RESP 20; TEMP 36.4; O2SAT 100
[2024-10-19 07:52] LABS: Glucose, Whole Blood 84 mg/dL (60-115)
[2024-10-19] MEDS: Acetaminophen 325 MG TABLET 650 MG PO ×2 (08:34→16:37)
[2024-10-19] MEDS: Furosemide 20 MG TABLET 60 MG PO (08:34)
[2024-10-19] MEDS: guaiFENesin LA 600 MG TAB.ER.12H PO ×2 (08:34→22:25)
[2024-10-19] MEDS: Sertraline HCL 50 MG TABLET PO (08:34)
[2024-10-19] MEDS: polyethylene glycoL 3350 17 GM POWD.PACK PO (08:34)
[2024-10-19] MEDS: Erythromycin Base 0.5% Oph Oin 1 GM TUBE 1 CM EYE-RIGHT ×2 (08:35→22:25)
[2024-10-19] MEDS: 0.9 % Sodium Chloride Flush 3 ML SYRINGE IVFLUSH ×2 (08:35→15:42)
[2024-10-19] MEDS: Cholecalciferol (Vitamin D3) 25 MCG TABLET 50 MCG PO (08:35)
[2024-10-19] MEDS: Lidocaine 4 % Patch ADH..PATCH 1 PATCH TRANSDERMA (08:35)
[2024-10-19] MEDS: Insulin Glargine,Hum.rec.anlog 100 UNIT/ML 10 ML VIAL 26 UNIT SUBCUT (08:36)
--- NOTE | 2024-10-19 10:32 | MHC.CM.PN ---
PT MEDICALLY READY TO DC TO STR DCP: [facility] PENDING INSURANCE AUTH BC HAS NOT YET RESPONDED TO AUTH REQUEST CM WILL CONTINUE TO MONITOR AUTH STATUS
[2024-10-19 12:00] VITALS: BP 144/96; PULSE 55; RESP 16; TEMP 36.1; O2SAT 93
[2024-10-19 12:25] LABS: Glucose, Whole Blood 137 mg/dL (60-115)
--- NOTE | 2024-10-19 15:26 | HO.PM.IMPN ---
Subjective Subjective Date of Service: 10/19/24 Interval History: seen and evaluated feels better denies fever or chills no other events overight Review of Systems Review of Systems: Yes all other systems are reviewed and are negative Physical Exam Vital Signs: Vital Signs: Last Vital Signs Temp 96.9 F 10/19/24 12:00 Pulse 55 10/19/24 12:00 Resp 16 10/19/24 12:00 BP 144/96 H 10/19/24 12:00 Pulse Ox 93 10/19/24 12:00 O2 Del Method Room Air 10/19/24 12:00 O2 Flow Rate 2 10/19/24 07:47 BMI result Body Mass Index 36.4 Const: Other: Constitutional : interactive, not in distress Cardiovascular : no JVP, no lower extremity edema Respiratory : bilateral chest movement, not in resp distress , decreased bilateral air entry, shallow breathing , on O2 supplement Gastrointestinal: soft, lax, Non tender Skin : Warm, Dry Neurological : Alert & oriented , No focal deficit Objective Data Active Medications Acetaminophen (Acetaminophen 325 Mg Tablet) 650 mg PO Q6H PRN PRN Reason: Pain, Mild 1-3,fever,headache Last Admin: 10/19/24 08:34 Dose: 650 mg Documented By: SIVA Atorvastatin Calcium (Atorvastatin Calcium 20 Mg Tablet) 20 mg PO BEDTIME [facility] Last Admin: 10/18/24 22:47 Dose: 20 mg Documented By: MOZEB Benzonatate (Benzonatate 100 Mg Capsule) 100 mg PO TID PRN PRN Reason: Cough Last Admin: 10/13/24 10:15 Dose: 100 mg Documented By: ROSALIE Calcium Carbonate (Calcium Carbonate 750 Mg Tab.Chew) 750 mg PO Q4H PRN PRN Reason: Heartburn Dextrose (Dextrose 50 % 25 Gm/50 Ml Syringe) 25 gm IVPUSH Q15M PRN; Protocol PRN Reason: per Hypoglycemia Standing Ord. Erythromycin (Erythromycin Base 0.5% Oph Oin 1 Gm Tube) 1 cm EYE-RIGHT BID [facility] Last Admin: 10/19/24 08:35 Dose: 1 cm Documented By: SIVA Fluticasone/Vilanterol (Fluticasone/Vilanterol 200/25 Blst.W.Dev) 1 puff INHALE RDAILY [facility] Last Admin: 10/19/24 08:13 Dose: Not Given Documented By: BRADEN Non-Admin Reason: See Note Furosemide (Furosemide 20 Mg Tablet) 60 mg PO DAILY [facility]; Protocol Last Admin: 10/19/24 08:34 Dose: 60 mg Documented By: SIVA Glucose (Glucose Gel 15 Gm Gel..Gram.) 15 gm PO Q15M PRN; Protocol PRN Reason: per Hypoglycemia Standing Ord. Guaifenesin (Guaifenesin La 600 Mg Tab.Er.12h) 600 mg PO BID [facility] Last Admin: 10/19/24 08:34 Dose: 600 mg Documented By: SIVA Piperacillin Sod/Tazobactam (Sod 3.375 gm/ Sodium Chloride) 50 mls @ 100 mls/hr IV Q6H [facility] Last Infusion: 10/19/24 09:09 Dose: Infused Documented By: SIVA Insulin Glargine (Insulin Glargine,Hum.Rec.Anlog 100 Unit/Ml 10 Ml Vial) 26 unit SUBCUT DAILY [facility] Last Admin: 10/19/24 08:36 Dose: 26 unit Documented By: SIVA Insulin Human Lispro (Insulin Lispro 100 Unit/Ml 3 Ml Vial) 0 unit SUBCUT QIDACHS [facility]; Protocol Last Admin: 10/19/24 12:22 Dose: Not Given Documented By: SIVA Non-Admin Reason: No Insulin Coverage Levothyroxine Sodium (Levothyroxine Sodium 100 Mcg Tablet) 100 mcg PO DAILY@0600 [facility] Last Admin: 10/19/24 03:04 Dose: 100 mcg Documented By: DORON Lidocaine (Lidocaine 4 % Patch Adh..Patch) 1 patch TRANSDERMA DAILY [facility]; Protocol Last Admin: 10/19/24 08:35 Dose: 1 patch Documented By: SIVA Magnesium Hydroxide (Milk Of Magnesia 30 Ml Oral.Susp) 30 ml PO DAILY PRN PRN Reason: Constipation Melatonin (Melatonin 3 Mg Tablet) 6 mg PO BEDTIME PRN PRN Reason: Insomnia Last Admin: 10/15/24 20:17 Dose: 6 mg Documented By: SHERINE Metoprolol Tartrate (Metoprolol Tartrate 12.5 Mg Halftab) 12.5 mg PO BID [facility]; Protocol Last Admin: 10/17/24 09:02 Dose: 12.5 mg Documented By: JACOBO Omeprazole (Omeprazole 20 Mg Capsule.) 20 mg PO BID@0630,1630 [facility] Last Admin: 10/19/24 03:03 Dose: 20 mg Documented By: DORON Ondansetron HCl (Ondansetron Hcl 4 Mg/2 Ml Vial) 4 mg IVPUSH Q6H PRN PRN Reason: Nausea Last Admin: 10/13/24 10:15 Dose: 4 mg Documented By: ROSALIE Polyethylene Glycol (Polyethylene Glycol 3350 17 Gm Powd.Pack) 17 gm PO DAILY [facility] Last Admin: 10/19/24 08:34 Dose: 17 gm Documented By: SIVA Senna (Sennosides 8.6 Mg Tablet) 8.8 mg PO BEDTIME [facility] Last Admin: 10/18/24 22:48 Dose: 8.6 mg Documented By: DORON Sertraline HCl (Sertraline Hcl 50 Mg Tablet) 50 mg PO DAILY [facility] Last Admin: 10/19/24 08:34 Dose: 50 mg Documented By: SIVA Sodium Chloride (0.9 % Sodium Chloride Flush 3 Ml Syringe) 3 ml IVFLUSH QSHIFT [facility] Last Admin: 10/19/24 08:35 Dose: 3 ml Documented By: SIVA Vitamin D (Cholecalciferol (Vitamin D3) 25 Mcg Tablet) 50 mcg PO DAILY [facility] Last Admin: 10/19/24 08:35 Dose: 50 mcg Documented By: SIVA Warfarin Sodium (Warfarin Sodium 2 Mg Tablet) 2 mg PO MO@1800 [facility] Last Admin: 10/14/24 17:44 Dose: 2 mg Documented By: JAYLEN Warfarin Sodium (Warfarin Sodium 4 Mg Tablet) 4 mg PO SUTUWETHFRSA@1800 [facility] Last Admin: 10/18/24 16:56 Dose: 4 mg Documented By: SIVA Labs 10/17/24 05:53 10/18/24 05:56 Labs: Laboratory Results - last 24 hr 10/18/24 10/18/24 10/19/24 16:17 20:24 06:26 Hold Purple Top SEE NOTE PT 24.5 H INR 2.1 H POC Glucose 145 H 239 H 03/22/25 03/22/25 07:45 12:20 Hold Purple Top PT INR POC Glucose 84 137 H Assessment and Plan (1) Physical deconditioning: Status: Acute (2) Acute respiratory failure with hypoxia: Status: Acute (3) Pneumonia: Status: Acute Plan 89F PMH HTN, hyperlipidemia, diabetes, coronary disease, chronic systolic CHF, moderate persistent asthma, GERD, 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, history of CVA, osteoarthritis, hypothyroid presented with shortness of breath Acute hypoxic respiratory failure secondary to pneumonia (possible aspiration) 3 weeks after influenza MRSA swab negative, dced vanc Continue Zosyn Mucinex Incentive spirometry Wean O2 as tolerated Chronic systolic CHF cardiology input appreciated Continue metoprolol, Lasix Diabetes Basal bolus insulin History of DVT with supratherapeutic inr inr now in therapeutic range, restarted coumadin CAD Coumadin, statin History of CVA Coumadin, statin Hypothyroid Levothyroxine Full code reason for continued hospitalization: pending placement Quality Stroke Does the patient have a stroke diagnosis?: Yes Reason for No Anti-thrombotic by Day Two: N/A - Med Ordered VTE Prior VTE?: No VTE Risk Level:: Medical - moderate - high VTE Device Contraindication: Patient Refused VTE Drug Contraindication: N/A - Med Ordered
[2024-10-19 16:00] VITALS: BP 128/97; PULSE 63; RESP 16; TEMP 36; O2SAT 92
[2024-10-19] MEDS: Milk of Magnesia 30 ML ORAL.SUSP PO (16:36)
[2024-10-19] MEDS: Warfarin Sodium 4 MG TABLET PO (16:38)
[2024-10-19 16:58] LABS: Glucose, Whole Blood 226 mg/dL (60-115)
[2024-10-19] MEDS: Insulin Lispro 100 UNIT/ML 3 ML VIAL SUBCUT ×2 (16:59→22:24)
[2024-10-19 19:40] VITALS: BP 140/73; PULSE 78; RESP 18; TEMP 36.1; O2SAT 94
[2024-10-19 20:54] LABS: Glucose, Whole Blood 165 mg/dL (60-115)
[2024-10-19] MEDS: Atorvastatin Calcium 20 MG TABLET PO (22:25)
[2024-10-19 23:28] VITALS: BP 145/63; PULSE 69; RESP 16; TEMP 36.4; O2SAT 92
[2024-10-20] VITALS (7 sets, daily range): BP systolic 133–151; BP diastolic 63–67; PULSE 51–73; RESP 15–18; TEMP 36–36.9; O2SAT 92–94
[2024-10-20] MEDS: Piperacillin Sodium/Tazobactam 3.375 GM in 0.9 % Sodium Chloride 50 ML IV ×4 (02:14→20:35)
[2024-10-20] MEDS: Levothyroxine Sodium 100 MCG TABLET PO (06:22)
[2024-10-20] MEDS: Omeprazole 20 MG CAPSULE.DR PO ×2 (06:22→17:44)
[2024-10-20 07:07] LABS: INTERNATIONAL NORM RATIO 2.6 (0.9-1.1); Prothrombin Time 30.7 SEC (10.9-12.4)
[2024-10-20 08:23] LABS: Glucose, Whole Blood 117 mg/dL (60-115)
[2024-10-20] MEDS: Fluticasone/Vilanterol 200/25 BLST.W.DEV 1 PUFF INHALE (08:24)
[2024-10-20] MEDS: Furosemide 20 MG TABLET 60 MG PO (10:03)
[2024-10-20] MEDS: Erythromycin Base 0.5% Oph Oin 1 GM TUBE 1 CM EYE-RIGHT ×2 (10:03→20:35)
[2024-10-20] MEDS: Cholecalciferol (Vitamin D3) 25 MCG TABLET 50 MCG PO (10:03)
[2024-10-20] MEDS: Sertraline HCL 50 MG TABLET PO (10:03)
[2024-10-20] MEDS: Lidocaine 4 % Patch ADH..PATCH 1 PATCH TRANSDERMA (10:04)
[2024-10-20] MEDS: Insulin Glargine,Hum.rec.anlog 100 UNIT/ML 10 ML VIAL 26 UNIT SUBCUT (10:05)
[2024-10-20] MEDS: polyethylene glycoL 3350 17 GM POWD.PACK PO (10:05)
[2024-10-20] MEDS: guaiFENesin LA 600 MG TAB.ER.12H PO ×2 (10:05→20:41)
[2024-10-20 11:51] LABS: Glucose, Whole Blood 168 mg/dL (60-115)
--- NOTE | 2024-10-20 12:00 | HO.PM.IMPN ---
Subjective Subjective Date of Service: 10/20/24 Interval History: seen and evaluated feels better denies fever or chills no other events overight Review of Systems Review of Systems: Yes all other systems are reviewed and are negative Physical Exam Vital Signs: Vital Signs: Last Vital Signs Temp 97.1 F 10/20/24 11:46 Pulse 60 10/20/24 11:46 Resp 18 10/20/24 11:46 BP 148/66 H 10/20/24 11:46 Pulse Ox 94 10/20/24 11:46 O2 Del Method Room Air 10/20/24 11:46 O2 Flow Rate 2 10/19/24 07:47 BMI result Body Mass Index 36.4 Const: Other: Constitutional : interactive, not in distress Cardiovascular : no JVP, no lower extremity edema Respiratory : bilateral chest movement, not in resp distress , decreased bilateral air entry, shallow breathing , on O2 supplement Gastrointestinal: soft, lax, Non tender Skin : Warm, Dry Neurological : Alert & oriented , No focal deficit Objective Data Active Medications Acetaminophen (Acetaminophen 325 Mg Tablet) 650 mg PO Q6H PRN PRN Reason: Pain, Mild 1-3,fever,headache Last Admin: 10/19/24 16:37 Dose: 650 mg Documented By: SIVA Atorvastatin Calcium (Atorvastatin Calcium 20 Mg Tablet) 20 mg PO BEDTIME COUNT INCLUDES THE [facility] Last Admin: 10/19/24 22:25 Dose: 20 mg Documented By: MOZEB Benzonatate (Benzonatate 100 Mg Capsule) 100 mg PO TID PRN PRN Reason: Cough Last Admin: 10/13/24 10:15 Dose: 100 mg Documented By: ROSALIE Calcium Carbonate (Calcium Carbonate 750 Mg Tab.Chew) 750 mg PO Q4H PRN PRN Reason: Heartburn Dextrose (Dextrose 50 % 25 Gm/50 Ml Syringe) 25 gm IVPUSH Q15M PRN; Protocol PRN Reason: per Hypoglycemia Standing Ord. Erythromycin (Erythromycin Base 0.5% Oph Oin 1 Gm Tube) 1 cm EYE-RIGHT BID COUNT INCLUDES THE [facility] Last Admin: 10/20/24 10:03 Dose: 1 cm Documented By: SOFFAA Fluticasone/Vilanterol (Fluticasone/Vilanterol 200/25 Blst.W.Dev) 1 puff INHALE RDAILY COUNT INCLUDES THE [facility] Last Admin: 10/20/24 08:24 Dose: 1 puff Documented By: BRADEN Furosemide (Furosemide 20 Mg Tablet) 60 mg PO DAILY COUNT INCLUDES THE [facility]; Protocol Last Admin: 10/20/24 10:03 Dose: 60 mg Documented By: SIMONA Glucose (Glucose Gel 15 Gm Gel..Gram.) 15 gm PO Q15M PRN; Protocol PRN Reason: per Hypoglycemia Standing Ord. Guaifenesin (Guaifenesin La 600 Mg Tab.Er.12h) 600 mg PO BID COUNT INCLUDES THE [facility] Last Admin: 10/20/24 10:05 Dose: 600 mg Documented By: SIMONA Piperacillin Sod/Tazobactam (Sod 3.375 gm/ Sodium Chloride) 50 mls @ 100 mls/hr IV Q6H COUNT INCLUDES THE [facility] Last Infusion: 10/20/24 10:39 Dose: Infused Documented By: SIMONA Insulin Glargine (Insulin Glargine,Hum.Rec.Anlog 100 Unit/Ml 10 Ml Vial) 26 unit SUBCUT DAILY COUNT INCLUDES THE [facility] Last Admin: 10/20/24 10:05 Dose: 26 unit Documented By: SIMONA Insulin Human Lispro (Insulin Lispro 100 Unit/Ml 3 Ml Vial) 0 unit SUBCUT QIDACHS COUNT INCLUDES THE [facility]; Protocol Last Admin: 10/20/24 09:01 Dose: Not Given Documented By: SIMONA Non-Admin Reason: poc oor Levothyroxine Sodium (Levothyroxine Sodium 100 Mcg Tablet) 100 mcg PO DAILY@0600 COUNT INCLUDES THE [facility] Last Admin: 10/20/24 06:22 Dose: 100 mcg Documented By: NATALIE Lidocaine (Lidocaine 4 % Patch Adh..Patch) 1 patch TRANSDERMA DAILY COUNT INCLUDES THE [facility]; Protocol Last Admin: 10/20/24 10:04 Dose: 1 patch Documented By: SIMONA Magnesium Hydroxide (Milk Of Magnesia 30 Ml Oral.Susp) 30 ml PO DAILY PRN PRN Reason: Constipation Last Admin: 10/19/24 16:36 Dose: 30 ml Documented By: IGNACIO-RIVELIDY Melatonin (Melatonin 3 Mg Tablet) 6 mg PO BEDTIME PRN PRN Reason: Insomnia Last Admin: 10/15/24 20:17 Dose: 6 mg Documented By: SHERINE Metoprolol Tartrate (Metoprolol Tartrate 12.5 Mg Halftab) 12.5 mg PO BID COUNT INCLUDES THE [facility]; Protocol Last Admin: 10/17/24 09:02 Dose: 12.5 mg Documented By: JACOBO Omeprazole (Omeprazole 20 Mg Capsule.) 20 mg PO BID@0630,1630 COUNT INCLUDES THE [facility] Last Admin: 10/20/24 06:22 Dose: 20 mg Documented By: NATALIE Ondansetron HCl (Ondansetron Hcl 4 Mg/2 Ml Vial) 4 mg IVPUSH Q6H PRN PRN Reason: Nausea Last Admin: 10/13/24 10:15 Dose: 4 mg Documented By: ROSALIE Polyethylene Glycol (Polyethylene Glycol 3350 17 Gm Powd.Pack) 17 gm PO DAILY COUNT INCLUDES THE [facility] Last Admin: 10/20/24 10:05 Dose: 17 gm Documented By: SIMONA Senna (Sennosides 8.6 Mg Tablet) 8.8 mg PO BEDTIME COUNT INCLUDES THE [facility] Last Admin: 10/19/24 22:26 Dose: Not Given Documented By: DORON Non-Admin Reason: loose BM Sertraline HCl (Sertraline Hcl 50 Mg Tablet) 50 mg PO DAILY COUNT INCLUDES THE [facility] Last Admin: 10/20/24 10:03 Dose: 50 mg Documented By: SIMONA Sodium Chloride (0.9 % Sodium Chloride Flush 3 Ml Syringe) 3 ml IVFLUSH QSHIFT COUNT INCLUDES THE [facility] Last Admin: 10/20/24 09:01 Dose: Not Given Documented By: SIMONA Non-Admin Reason: Previously Administered Vitamin D (Cholecalciferol (Vitamin D3) 25 Mcg Tablet) 50 mcg PO DAILY COUNT INCLUDES THE [facility] Last Admin: 10/20/24 10:03 Dose: 50 mcg Documented By: SIMONA Warfarin Sodium (Warfarin Sodium 2 Mg Tablet) 2 mg PO MO@1800 COUNT INCLUDES THE [facility] Last Admin: 10/14/24 17:44 Dose: 2 mg Documented By: JAYLEN Warfarin Sodium (Warfarin Sodium 4 Mg Tablet) 4 mg PO SUTUWETHFRSA@1800 COUNT INCLUDES THE [facility] Last Admin: 10/19/24 16:38 Dose: 4 mg Documented By: SIVA Labs 10/17/24 05:53 10/18/24 05:56 Labs: Laboratory Results - last 24 hr 10/19/24 10/19/24 10/19/24 12:20 16:54 20:37 PT INR POC Glucose 137 H 226 H 165 H 10/20/24 10/20/24 10/20/24 06:38 08:19 11:45 PT 30.7 H D INR 2.6 H POC Glucose 117 H 168 H Assessment and Plan (1) Physical deconditioning: Status: Acute (2) Acute respiratory failure with hypoxia: Status: Acute (3) Pneumonia: Status: Acute Plan 89F PMH HTN, hyperlipidemia, diabetes, coronary disease, chronic systolic CHF, moderate persistent asthma, GERD, 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, history of CVA, osteoarthritis, hypothyroid presented with shortness of breath Acute hypoxic respiratory failure secondary to pneumonia (possible aspiration) 3 weeks after influenza MRSA swab negative, dced vanc Continue Zosyn Mucinex Incentive spirometry Weaned off Chronic systolic CHF cardiology input appreciated Continue metoprolol, Lasix Diabetes Basal bolus insulin History of DVT with supratherapeutic inr inr now in therapeutic range, restarted coumadin CAD Coumadin, statin History of CVA Coumadin, statin Hypothyroid Levothyroxine Full code reason for continued hospitalization: pending placement Quality Stroke Does the patient have a stroke diagnosis?: Yes Reason for No Anti-thrombotic by Day Two: N/A - Med Ordered VTE Prior VTE?: No VTE Risk Level:: Medical - moderate - high VTE Device Contraindication: Patient Refused VTE Drug Contraindication: N/A - Med Ordered
[2024-10-20] MEDS: Insulin Lispro 100 UNIT/ML 3 ML VIAL SUBCUT ×2 (12:52→20:35)
[2024-10-20 16:11] LABS: Glucose, Whole Blood 115 mg/dL (60-115)
[2024-10-20] MEDS: Warfarin Sodium 4 MG TABLET PO (17:44)
[2024-10-20 20:31] LABS: Glucose, Whole Blood 158 mg/dL (60-115)
[2024-10-20] MEDS: Melatonin 3 MG TABLET 6 MG PO (20:34)
[2024-10-20] MEDS: 0.9 % Sodium Chloride Flush 3 ML SYRINGE IVFLUSH (20:35)
[2024-10-20] MEDS: Atorvastatin Calcium 20 MG TABLET PO (20:36)
[2024-10-21] VITALS (7 sets, daily range): BP systolic 128–154; BP diastolic 49–78; PULSE 51–67; RESP 16–20; TEMP 35.9–36.6; O2SAT 90–99
[2024-10-21] MEDS: Piperacillin Sodium/Tazobactam 3.375 GM in 0.9 % Sodium Chloride 50 ML IV ×2 (02:40→09:15)
[2024-10-21] MEDS: Omeprazole 20 MG CAPSULE.DR PO ×2 (05:54→17:27)
[2024-10-21] MEDS: Levothyroxine Sodium 100 MCG TABLET PO (05:54)
[2024-10-21 07:17] LABS: Prothrombin Time 35.4 SEC (10.9-12.4)
[2024-10-21 07:27] LABS: Glucose, Whole Blood 87 mg/dL (60-115)
[2024-10-21] MEDS: Fluticasone/Vilanterol 200/25 BLST.W.DEV 1 PUFF INHALE (08:29)
[2024-10-21] MEDS: Cholecalciferol (Vitamin D3) 25 MCG TABLET 50 MCG PO (09:14)
[2024-10-21] MEDS: Sertraline HCL 50 MG TABLET PO (09:15)
[2024-10-21] MEDS: Insulin Glargine,Hum.rec.anlog 100 UNIT/ML 10 ML VIAL 26 UNIT SUBCUT (09:15)
[2024-10-21] MEDS: Furosemide 20 MG TABLET 60 MG PO (09:15)
[2024-10-21] MEDS: Erythromycin Base 0.5% Oph Oin 1 GM TUBE 1 CM EYE-RIGHT (09:15)
[2024-10-21] MEDS: guaiFENesin LA 600 MG TAB.ER.12H PO (09:16)
[2024-10-21] MEDS: Lidocaine 4 % Patch ADH..PATCH 1 PATCH TRANSDERMA (09:17)
[2024-10-21] MEDS: polyethylene glycoL 3350 17 GM POWD.PACK PO (09:28)
[2024-10-21 11:33] LABS: Glucose, Whole Blood 191 mg/dL (60-115)
[2024-10-21] MEDS: Insulin Lispro 100 UNIT/ML 3 ML VIAL SUBCUT (12:13)
[2024-10-21] MEDS: 0.9 % Sodium Chloride Flush 3 ML SYRINGE IVFLUSH ×2 (12:14→17:29)
--- NOTE | 2024-10-21 13:11 | MHC.CM.PN ---
Pt has been medically cleared and been accepted at [facility], we have been waiting for auth since 10/17.
--- NOTE | 2024-10-21 13:23 | HO.PM.IMPN ---
Subjective Subjective Date of Service: 10/21/24 Interval History: seen and evaluated feels better denies fever or chills no other events overight Review of Systems Review of Systems: Yes all other systems are reviewed and are negative Physical Exam Vital Signs: Vital Signs: Last Vital Signs Temp 97.1 F 10/21/24 12:00 Pulse 53 10/21/24 12:00 Resp 20 10/21/24 12:00 BP 128/54 L 10/21/24 12:00 Pulse Ox 99 10/21/24 12:00 O2 Del Method Room Air 10/21/24 12:00 O2 Flow Rate 2 10/19/24 07:47 BMI result Body Mass Index 36.4 Const: Other: Constitutional : interactive, not in distress Cardiovascular : no JVP, no lower extremity edema Respiratory : bilateral chest movement, not in resp distress , improved bilateral air entry, on RA Gastrointestinal: soft, lax, Non tender Skin : Warm, Dry Neurological : Alert & oriented , No focal deficit Objective Data Active Medications Acetaminophen (Acetaminophen 325 Mg Tablet) 650 mg PO Q6H PRN PRN Reason: Pain, Mild 1-3,fever,headache Last Admin: 10/19/24 16:37 Dose: 650 mg Documented By: SIVA Atorvastatin Calcium (Atorvastatin Calcium 20 Mg Tablet) 20 mg PO BEDTIME [facility] Last Admin: 10/20/24 20:36 Dose: 20 mg Documented By: JADA Benzonatate (Benzonatate 100 Mg Capsule) 100 mg PO TID PRN PRN Reason: Cough Last Admin: 10/13/24 10:15 Dose: 100 mg Documented By: ROSALIE Calcium Carbonate (Calcium Carbonate 750 Mg Tab.Chew) 750 mg PO Q4H PRN PRN Reason: Heartburn Dextrose (Dextrose 50 % 25 Gm/50 Ml Syringe) 25 gm IVPUSH Q15M PRN; Protocol PRN Reason: per Hypoglycemia Standing Ord. Erythromycin (Erythromycin Base 0.5% Oph Oin 1 Gm Tube) 1 cm EYE-RIGHT BID [facility] Last Admin: 10/21/24 09:15 Dose: 1 cm Documented By: ROSALIE Fluticasone/Vilanterol (Fluticasone/Vilanterol 200/25 Blst.W.Dev) 1 puff INHALE RDAILY [facility] Last Admin: 10/21/24 08:29 Dose: 1 puff Documented By: WEN Furosemide (Furosemide 20 Mg Tablet) 60 mg PO DAILY [facility]; Protocol Last Admin: 10/21/24 09:15 Dose: 60 mg Documented By: ROSALIE Glucose (Glucose Gel 15 Gm Gel..Gram.) 15 gm PO Q15M PRN; Protocol PRN Reason: per Hypoglycemia Standing Ord. Guaifenesin (Guaifenesin La 600 Mg Tab.Er.12h) 600 mg PO BID [facility] Last Admin: 10/21/24 09:16 Dose: 600 mg Documented By: ROSALIE Piperacillin Sod/Tazobactam (Sod 3.375 gm/ Sodium Chloride) 50 mls @ 100 mls/hr IV Q6H [facility] Last Infusion: 10/21/24 10:03 Dose: Infused Documented By: ROSALIE Insulin Glargine (Insulin Glargine,Hum.Rec.Anlog 100 Unit/Ml 10 Ml Vial) 26 unit SUBCUT DAILY [facility] Last Admin: 10/21/24 09:15 Dose: 26 unit Documented By: ROSALIE Insulin Human Lispro (Insulin Lispro 100 Unit/Ml 3 Ml Vial) 0 unit SUBCUT QIDACHS [facility]; Protocol Last Admin: 10/21/24 12:13 Dose: 2 unit Documented By: ROSALIE Levothyroxine Sodium (Levothyroxine Sodium 100 Mcg Tablet) 100 mcg PO DAILY@0600 [facility] Last Admin: 10/21/24 05:54 Dose: 100 mcg Documented By: JADA Lidocaine (Lidocaine 4 % Patch Adh..Patch) 1 patch TRANSDERMA DAILY [facility]; Protocol Last Admin: 10/21/24 09:17 Dose: 1 patch Documented By: ROSALIE Magnesium Hydroxide (Milk Of Magnesia 30 Ml Oral.Susp) 30 ml PO DAILY PRN PRN Reason: Constipation Last Admin: 10/19/24 16:36 Dose: 30 ml Documented By: IGNACIO-VAMSHI Melatonin (Melatonin 3 Mg Tablet) 6 mg PO BEDTIME PRN PRN Reason: Insomnia Last Admin: 10/20/24 20:34 Dose: 6 mg Documented By: JADA Metoprolol Tartrate (Metoprolol Tartrate 12.5 Mg Halftab) 12.5 mg PO BID [facility]; Protocol Last Admin: 10/17/24 09:02 Dose: 12.5 mg Documented By: JACOBO Omeprazole (Omeprazole 20 Mg Capsule.Dr) 20 mg PO BID@0630,1630 [facility] Last Admin: 10/21/24 05:54 Dose: 20 mg Documented By: JADA Ondansetron HCl (Ondansetron Hcl 4 Mg/2 Ml Vial) 4 mg IVPUSH Q6H PRN PRN Reason: Nausea Last Admin: 10/13/24 10:15 Dose: 4 mg Documented By: ROSALIE Polyethylene Glycol (Polyethylene Glycol 3350 17 Gm Powd.Pack) 17 gm PO DAILY [facility] Last Admin: 10/21/24 09:28 Dose: 17 gm Documented By: ROSALIE Senna (Sennosides 8.6 Mg Tablet) 8.8 mg PO BEDTIME [facility] Last Admin: 10/20/24 20:35 Dose: Not Given Documented By: JADA Non-Admin Reason: Patient Refused Sertraline HCl (Sertraline Hcl 50 Mg Tablet) 50 mg PO DAILY [facility] Last Admin: 10/21/24 09:15 Dose: 50 mg Documented By: ROSALIE Sodium Chloride (0.9 % Sodium Chloride Flush 3 Ml Syringe) 3 ml IVFLUSH [facility] Last Admin: 10/21/24 12:14 Dose: 3 ml Documented By: ROSALIE Vitamin D (Cholecalciferol (Vitamin D3) 25 Mcg Tablet) 50 mcg PO DAILY [facility] Last Admin: 10/21/24 09:14 Dose: 50 mcg Documented By: ROSALIE Warfarin Sodium (Warfarin Sodium 2 Mg Tablet) 2 mg PO MO@1800 [facility] Last Admin: 10/14/24 17:44 Dose: 2 mg Documented By: JAYLEN Warfarin Sodium (Warfarin Sodium 4 Mg Tablet) 4 mg PO SUTUWETHFRSA@1800 [facility] Last Admin: 10/20/24 17:44 Dose: 4 mg Documented By: SIMONA Labs 10/17/24 05:53 10/18/24 05:56 Labs: Laboratory Results - last 24 hr 10/20/24 10/20/24 10/21/24 15:54 20:25 05:47 Hold Purple Top SEE NOTE PT 35.4 H INR 3.0 H POC Glucose 115 158 H 10/21/24 10/21/24 07:23 11:25 Hold Purple Top PT INR POC Glucose 87 191 H Assessment and Plan (1) Physical deconditioning: Status: Acute (2) Acute respiratory failure with hypoxia: Status: Acute (3) Pneumonia: Status: Acute Plan 89F PMH HTN, hyperlipidemia, diabetes, coronary disease, chronic systolic CHF, moderate persistent asthma, GERD, 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, history of CVA, osteoarthritis, hypothyroid presented with shortness of breath Acute hypoxic respiratory failure secondary to pneumonia (possible aspiration) 3 weeks after influenza MRSA swab negative, dced vanc DC Zosyn, finished total of 10 days of antibiotics Mucinex Incentive spirometry Weaned off O2 Chronic systolic CHF cardiology input appreciated Continue metoprolol, Lasix Diabetes Basal bolus insulin History of DVT with supratherapeutic inr INR 3 Continue coumadin CAD Coumadin, statin History of CVA Coumadin, statin Hypothyroid Levothyroxine Full code reason for continued hospitalization: pending placement Quality Stroke Does the patient have a stroke diagnosis?: Yes Reason for No Anti-thrombotic by Day Two: N/A - Med Ordered VTE Prior VTE?: No VTE Risk Level:: Medical - moderate - high VTE Device Contraindication: Patient Refused VTE Drug Contraindication: N/A - Med Ordered
--- NOTE | 2024-10-21 14:57 | P.DS_ITS ---
DS: Providers Provider Date of Service: 10/21/24 Date of admission: 10/11/24 00:59 Date of discharge: 10/21/24 Primary care physician: Valeri Lerner DO Consults: 10/11/24 02:15 Consult to Cardiology Routine Consulting Provider: [facility] Reason for consultation: chest pain DS: Diagnosis Discharge Diagnosis (1) Physical deconditioning: Status: Acute (2) Acute respiratory failure with hypoxia: Status: Acute (3) Pneumonia: Status: Acute (4) Elevated troponin: Status: Acute (5) Conjunctivitis: Status: Acute DS: Summary Hospital Course Hospital Course: Admission note HPI 89-year-old female with a past medical history of HTN, HLD, dm, CAD, CHF, asthma, GERD, , DVT status post IVC filter, on Coumadin, diabetes, HX CVA, osteoarthritis, hypothyroidism presented to the hospital today with a chief complaint of cough and shortness of breath. Patient reports that over the past 2 days she has been having cough and shortness of breath. Reports having subjective fevers. Denies any sick contacts. Also reports having chest discomfort. Denies any chest pain at the time of my interview. Denies any nausea vomiting or diarrhea. Denies any urinary symptoms. Review of all other systems is negative except mentioned above ER course: patient was mildly hypoxic on presentation, placed on supplemental oxygen; chest x-ray showed findings concerning for multifocal pneumonia. Given antibiotics. EKG nonischemic. Hospital course The patient was admitted for treatment of acute hypoxic respiratory failure secondary to pneumonia with possible aspiration 3 weeks after influenza. He was started on IV Vancomycin and Zosyn. MRSA swab negative and vancomycin was stopped. Finished total of 10 days of Zosyn along with Mucinex and Incentive spirometry as she was Weaned off O2 and was able to participate with PT with good tolerance. she finised 10 days of Zosyn and will not need more antibiotics on discharge. Had Chronic systolic CHF and was seen by cardiology who recommended to continue metoprolol, Lasix She has history of DVT with supratherapeutic inr. INR monitored and went back to therapeutic level of 2-3. resumed Coumadin with good tolerance. Discharge plan Start Physical therapy at SNF Mucinex and incentive spirometry to prevent atelactasis Finished 10 days of antibiotics while inpatient Time Attestation Discharge Coordination Time (in mins): 42 Quality: Safe Use of Opioids Does Pt have an Active Cancer Diagnosis on the Problem List?: No Quality: Stroke Does the patient have a stroke diagnosis?: No Physical Exam Vital Signs: Vital Signs: Last Vital Signs Temp 97.1 F 10/21/24 12:00 Pulse 53 10/21/24 12:00 Resp 20 10/21/24 12:00 BP 128/54 L 10/21/24 12:00 Pulse Ox 99 10/21/24 12:00 O2 Del Method Room Air 10/21/24 12:00 O2 Flow Rate 2 10/19/24 07:47 BMI result Body Mass Index 36.4 Const: Other: Constitutional : interactive, not in distress Cardiovascular : no JVP, no lower extremity edema Respiratory : bilateral chest movement, not in resp distress , improved arik ateral air entry, on RA Gastrointestinal: soft, lax, Non tender Skin : Warm, Dry Neurological : Alert & oriented , No focal deficit DS: Data Data Completed and Pending Labs on day of discharge: Laboratory Results - last 24 hr 10/20/24 10/20/24 10/21/24 15:54 20:25 05:47 Hold Purple Top SEE NOTE PT 35.4 H INR 3.0 H POC Glucose 115 158 H 10/21/24 10/21/24 07:23 11:25 Hold Purple Top PT INR POC Glucose 87 191 H Imaging Chest x-ray: Radiologist's impression: ITS Impressions Chest X-Ray 10/16/24 14:14 IMPRESSION: Cardiomegaly. Waxing and waning bilateral pulmonary opacities likely representing pneumonia or asymmetric pulmonary edema. Electronically signed by: Tyler Mendez MD 10/16/2024 02:56 PM EDT Discharge Plan Discharge Anticipated Discharge Date/Time: 10/21/24 14:54 Patient Disposition: Xfer SNF Discharge Diagnosis: Hypoxia, Pneumonia Physical deconditioning Referrals: Diana Eric MD [Physician] - 1 Week Discharge Medications: New polyethylene glycol 3350 17 gram Powder In Packet 17 g PO DAILY Qty: 7 0RF guaifenesin [Mucinex] 600 mg Tablet Extended Release 12hr 600 mg PO BID Qty: 14 0RF Continued insulin lispro [Humalog KwikPen Insulin] 100 unit/mL insulin pen See Protocol subcut TIDAC Protocol: Insulin Correction Scale Less than or equal to 110 ---- Give (units): 0 111 to 150 Give (units): 0 151 to 200 Give (units): 2 201 to 250 Give (units): 4 251 to 300 Give (units): 6 301 to 350 Give (units): 8 Greater than 350 Give (units): 10 Call MD if Blood Glucose > : 350 metformin 500 mg tablet extended release 24 hr 500 mg PO BIDWM acetaminophen 650 mg Tablet Extended Release 650 mg PO Q8H PRN (Reason: Pain/Fever) warfarin 4 mg tablet 2 mg PO MO@1800 loratadine 10 mg Tablet 10 mg PO DAILY PRN (Reason: Allergy Symptoms) ciclopirox 0.77 % cream 1 appl topical BID Rx Instructions: apply to feet and toes solifenacin 10 mg tablet 10 mg PO DAILY Ozempic 0.25 mg or 0.5 mg (2 mg/3 mL) pen injector 0.5 mg subcut FR furosemide 20 mg tablet 60 mg PO DAILY insulin glargine [Lantus Solostar U-100 Insulin] 100 unit/mL (3 mL) insulin pen 26 unit subcut DAILY warfarin 4 mg tablet 4 mg PO SUTUWETHFRSA@1800 Rx Instructions: TAKE 1 TO 2 TABLETS DAILY DIRECTED PER COUMADIN CLINIC (DME) pen needle, diabetic 32 gauge x 5/32 needle See Rx Instructions .ROUTE .MEDSUPPLY Qty: 50 Rx Instructions: As directed cholecalciferol (vitamin D3) 50 mcg (2,000 unit) tablet 50 mcg PO DAILY sertraline 50 mg tablet 50 mg PO DAILY fluticasone propionate 50 mcg/actuation spray,suspension 2 spray intranasal DAILY omeprazole 20 mg capsule,delayed release(DR/EC) 20 mg PO BID@0630,1630 fluticasone propion-salmeterol 500-50 mcg/dose blister with device 1 inh inhalation BID levothyroxine 100 mcg tablet 100 mcg PO DAILY@0600 (DME) lancets Misc See Rx Instructions .ROUTE .MEDSUPPLY Qty: 100 Rx Instructions: As directed (DME) blood sugar diagnostic Strip See Rx Instructions Not Applicable BID Qty: 10 Rx Instructions: As directed atorvastatin 20 mg tablet 20 mg PO BEDTIME metoprolol tartrate 25 mg tablet 12.5 mg PO BID Tab-A-Judith Multivitamin w-iron 15 mg iron- 400 mcg tablet 1 tab PO DAILY (DME) Sidestream Misc See Rx Instructions .ROUTE DIRECTED Qty: 1 Rx Instructions: As directed docusate sodium 100 mg capsule 100 mg PO BID Discharge Orders: Discharge Order (Routine); Ordered 10/21/24 Ordered By: Jairon Byers Diet: Advance to usual diet Activity on Discharge: As tolerated Stand Alone Forms: Patient Portal Discharge page Print Language: Greenlandic Care Plan Goals: Physical therapy Incentive spirometry Health Concerns: Pneumonia physical deconditioning Plan of Treatment: Mucinex therapy Assessment: as above
--- NOTE | 2024-10-21 15:20 | MHC.CM.PN ---
Second IMM 10/21/24, Pt has been medically cleared, she will go to [facility] for STR this evening via BLS.
[2024-10-21 16:10] LABS: Glucose, Whole Blood 139 mg/dL (60-115)
[2024-10-21] MEDS: Warfarin Sodium 2 MG TABLET PO (17:27)
--- NOTE | 2024-10-21 23:10 | PC.NURSE ---
Pt pleasant AOx4, certified orthoptist utilized. Ambulance personnel came to forklift picker @ about 2115 to transfer to SNF. Tele and IVs removed by day RN. Pt daughter accompanied pt when pt was discharged to ambulance personnel. All belongings went with daughter.
== END 2024-10-21 21:15 | disposition skilled nursing facility (03) | DRG 178 ==
LOC: HO.ED 22:38 → HO.EDOVER 10-11 01:03 → HO.IMC 10-11 14:50
PROVIDERS: Internal Medicine; Admitting Provider Hospitalist; Emergency Provider Internal Medicine; PCP Family Medicine; Visit Provider Student in an Organized Health Care Education/Training Program
DX: J69.0 Pneumonitis due to inhalation of food and vomit (principal); I50.32 Chronic diastolic (congestive) heart failure; E11.42 Type 2 diabetes mellitus with diabetic polyneuropathy; I48.0 Paroxysmal atrial fibrillation; I11.0 Hypertensive heart disease with heart failure; R53.81 Other malaise; E03.9 Hypothyroidism, unspecified; R79.1 Abnormal coagulation profile; I25.10 Atherosclerotic heart disease of native coronary artery without angina pectoris; Z20.822 Contact with and (suspected) exposure to COVID-19; Z86.718 Personal history of other venous thrombosis and embolism; Z86.73 Personal history of transient ischemic attack (TIA), and cerebral infarction without residual deficits; Z87.891 Personal history of nicotine dependence; Z79.4 Long term (current) use of insulin; Z79.51 Long term (current) use of inhaled steroids; Z79.01 Long term (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; Z79.890 Hormone replacement therapy; Z79.899 Other long term (current) drug therapy
CPT/HCPCS: 0241U; 36415; 71045; 72100; 80048; 80053; 81001; 82803; 82947; 83605; 83880; 84484; 85025; 85027; 85610; 87040; 87640; 87641; 92526; 92610; 93005; 94664; 97110; 97162; 97530; 99285; J2405; J2543; J3370

== ENCOUNTER → 2024-10-10 21:10 | Outpatient (BNV) | payer OTHER, SELFPAY | PROVIDERS: PCP Family Medicine; Visit Provider Radiology Diagnostic Radiology | DX: R07.9 Chest pain, unspecified (principal) | CPT/HCPCS: 71045; 72100 ==

== ENCOUNTER 2024-10-11 00:59 | Outpatient (BNV) | payer OTHER, SELFPAY | END 2024-10-16 14:14 | PROVIDERS: Admitting Provider Hospitalist; Emergency Provider Internal Medicine; PCP Family Medicine; Visit Provider Radiology Diagnostic Radiology | DX: R09.02 Hypoxemia (principal) | CPT/HCPCS: 71045 ==

== ENCOUNTER 2024-10-11 00:59 | Outpatient (BNV) | payer OTHER, SELFPAY | END 2024-10-17 12:09 | PROVIDERS: Admitting Provider Hospitalist; Emergency Provider Internal Medicine; PCP Family Medicine; Visit Provider Internal Medicine Cardiovascular Disease | DX: I48.92 Unspecified atrial flutter (principal); I44.0 Atrioventricular block, first degree | CPT/HCPCS: 93010 ==

== ENCOUNTER → 2024-10-11 00:59 | Outpatient (BNV) | payer OTHER, SELFPAY | PROVIDERS: Admitting Provider Hospitalist; Emergency Provider Internal Medicine; PCP Family Medicine; Visit Provider Internal Medicine | DX: R09.02 Hypoxemia (principal) | CPT/HCPCS: 99499 ==

== ENCOUNTER → 2024-10-11 00:59 | Outpatient (BNV) | payer OTHER, SELFPAY | PROVIDERS: Admitting Provider Hospitalist; Emergency Provider Internal Medicine; PCP Family Medicine; Visit Provider Internal Medicine | DX: I48.0 Paroxysmal atrial fibrillation (principal); I45.9 Conduction disorder, unspecified; R79.89 Other specified abnormal findings of blood chemistry; J18.9 Pneumonia, unspecified organism | CPT/HCPCS: 99223 ==

== ENCOUNTER → 2025-01-06 09:32 | Outpatient (BNV) | payer OTHER, SELFPAY | PROVIDERS: PCP Family Medicine; Visit Provider Radiology Diagnostic Radiology | DX: K56.41 Fecal impaction (principal); R14.0 Abdominal distension (gaseous) | CPT/HCPCS: 74261 ==

== ENCOUNTER 2025-01-06 10:02 | Outpatient (REF) | payer OTHER, SELFPAY ==
--- NOTE | ~2025-01-06 | CT_ITS ---
EXAMINATION: CT Colonography. CLINICAL INDICATION: Abnormal findings on diagnostic imaging. FINDINGS/ CT/CT colonography IMPRESSION: Following rectal insertion of a balloon inflated catheter patient was unable to hold gas. There is large amount of stool and gas in the colon. Patient was not prepped. The exam if continued would be unsuccessful, use less and hence terminated. Recommend simple enema prep prior to a fluoroscopy-guided barium enema study. Recommend schedule this exam as outpatient. Electronically signed by: Harley Collins MD 01/06/2025 01:59 PM EDT
--- OUTSIDE RECORDS SUMMARY | 2025-01-06 11:03 | XMS_ITS | Clinical Summary ---
Author Organization [employer] Address [address] [place] [address] [address] [place] [address] Care Team Providers Care Contact Lens Fitter Name Role Phone Valeri Lerner DO Primary Care Provider [phone] Allergies Active Allergy Reactions Criticality Noted Date Comments Acetaminophen 02/18/2013 Other reaction(s): Stomach Pain Aspirin GI intolerance Low 02/18/2013 Other reaction(s): Stomach Pain Chlorpheniramine 12/06/2016 Dextromethorphan 12/06/2016 Dextromethorphan-Guaifenesin Hives High 025 Flavoring Agent Unknown 11/22/2024 Ibuprofen Unknown 10/17/2023 Oxycodone Palpitations Low 02/18/2013 Other reaction(s): Stomach Pain Oxycodone-Acetaminophen Unknown 11/22/2024 Penicillin G Unknown 11/22/2024 Phenylephrine 12/06/2016 Pseudoephedrine 12/06/2016 Shellfish-Derived Products Hives High 4 Medications Lancets (onetouch ultrasoft) lancets TEST BLOOD SUGAR TWICE DAILY 100 each 11 023 Active Continuous Blood Gluc Shell Maker Lockstitch (FreeStyle Jason 2 [place]) device Scan sensor every 8 hours 1 each 024 Active UltiGuard SafePack Pen Needle 32G X 4 MM misc USE DIRECTED WITH LANTUS AND HUMALOG 200 each 5 024 Active Multiple Vitamins-Iron (Tab-A-Judith/Iron) tablet TAKE 1 TABLET BY MOUTH EVERY MORNING WITH FOOD 90 tablet 3 Active furosemide (Lasix) 20 MG tablet Take 3 tablets by mouth in the morning. Active solifenacin (VESIcare) 10 MG tablet Take 1 tablet (10 mg) by mouth Once per day. Swallow tablet whole; do not crush, chew, or split. 30 tablet 11 024 2024 Active fluticasone (Flonase) 50 MCG/ACT nasal sprayIndications: Seasonal allergic rhinitis, unspecified trigger Administer 2 sprays into each nostril Once per day. Shake gently. Before first use, prime pump. After use, clean tip and replace cap. 16 g Active Alcohol Swabs (Alcohol Prep) 70 % pads USE THREE TO FOUR TIMES DAILY 100 each 11 Active metoprolol tartrate (Lopressor) 25 MG tablet TAKE 1/2 TABLET BY MOUTH TWICE DAILY IN THE MORNING AND EVENING 90 tablet 1 Active cetirizine (ZyrTEC) 10 MG tablet Take 0.5 tablets (5 mg) by mouth Once per day. 15 tablet 11 024 2024 Active metFORMIN XR (Glucophage-XR) 500 MG 24 hr tabletIndications :Type 2 diabetes mellitus with hyperglycemia, with long-term current use of insulin ([facility]) TAKE 1 TABLET BY MOUTH TWICE DAILY IN THE MORNING AND IN THE EVENING WITH FOOD 60 tablet 11 Active sertraline (Zoloft) 50 MG tabletIndications :Depression, unspecified depression type TAKE 1 TABLET BY MOUTH EVERY MORNING 30 tablet 5 025 Active cholecalciferol VITAMIN D (Vitamin D-3) 50 MCG (1999 UT) tablet TAKE 1 TABLET BY MOUTH EVERY MORNING 90 tablet 1 025 Active atorvastatin (Lipitor) 20 MG tabletIndications :Other hyperlipidemia TAKE 1 TABLET BY MOUTH AT BEDTIME 90 tablet 3 025 Active docusate sodium (Colace) 100 MG capsuleIndication s:Chronic constipation TAKE 1 CAPSULE BY MOUTH TWICE DAILY 180 capsule 3 Active ciclopirox (Loprox) 0.77 % cream APPLY TOPICALLY TO SKIN OF FEET AND TOES TWICE DAILY DIRECTED Active warfarin (Coumadin) 4 MG tabletIndications :Paroxysmal atrial fibrillation (CMS/HCC) TAKE 1 TO 2 TABLETS DAILY DIRECTED PER COUMADIN CLINIC 60 tablet 2 Active white petrolatum (Vaseline) gelIndications:Ac daren cystitis with hematuria Apply topically if needed for dry skin or irritation. 500 g Active omeprazole (PriLOSEC) [address] capsule TAKE 1 CAPSULE BY MOUTH TWICE DAILY IN THE MORNING AND IN THE EVENING WITH FOOD 180 capsule 1 Active levothyroxine (Synthroid, Levoxyl) 100 MCG tablet TAKE 1 TABLET BY MOUTH EVERY MORNING ON AN EMPTY STOMACH 90 tablet Active Fluticasone-Salme terol 500-50 MCG/ACT aerosol powder INHALE 1 PUFF BY MOUTH TWICE DAILY. RINSE MOUTH AFTER USING. 60 each Active Continuous Glucose Sensor (FreeStyle Jason 2 Plus Sensor) misc 1 each every 8 (eight) hours. Apply 1 sensor every 15 days as directed for CGM. Continue to scan Q8H, at minimum, to capture 24 hr BG data. 2 each Active insulin glargine (Lantus SoloStar) 100 UNIT/ML penIndications:Ty pe 2 diabetes mellitus with hyperglycemia, with long-term current use of insulin ([facility]) Inject 26 Units under the skin in the morning. 15 mL Active Semaglutide,0.25 or 0.5MG/DOS, (Ozempic, 0.25 or 0.5 MG/DOSE,) 2 MG/3ML solution pen-injectorIndic ations:Type 2 diabetes mellitus with hyperglycemia, with long-term current use of insulin ([facility]) Inject 0.5 mg under the skin 1 (one) time per week. 3 mL 2025 Active triamcinolone (Kenalog) 0.1 % ointment Apply topically if needed in the morning and at bedtime for rash. 30 g 1 024 2024 Discontinued(M ed list cleanup (will not trigger notification to Pharmacy)) Fluticasone-Salme terol 500-50 MCG/ACT aerosol powder INHALE 1 PUFF BY MOUTH TWICE DAILY. RINSE MOUTH AFTER USING. 60 each 5 024 2024 Discontinued insulin glargine (Lantus SoloStar) 100 UNIT/ML penIndications:Ty pe 2 diabetes mellitus with hyperglycemia, with long-term current use of insulin (CMS/HCC) Inject 26 Units under the skin in the morning. 15 mL 2024 Discontinued(R eorder (will not trigger notification to Pharmacy)) Semaglutide,0.25 or 0.5MG/DOS, (Ozempic, 0.25 or 0.5 MG/DOSE,) 2 MG/3ML solution pen-injectorIndic ations:Type 2 diabetes mellitus with hyperglycemia, with long-term current use of insulin (CMS/HCC) Inject 0.75 mL (0.5 mg) under the skin 1 (one) time per week. 3 mL 2024 Discontinued(R eorder (will not trigger notification to Pharmacy)) Continuous Glucose Sensor (FreeStyle Jason 2 Sensor) misc USE DIRECTED. CHANGE EVERY 14 DAYS 2 each 3 2024 Discontinued(A lternate therapy) Continuous Glucose Sensor (FreeStyle Jason 2 Plus Sensor) misc 1 each every 8 (eight) hours. Apply 1 sensor every 15 days as directed for CGM. Continue to scan Q8H, at minimum, to capture 24 hr BG data. 2 each 2024 Discontinued(R eorder (will not trigger notification to Pharmacy)) Semaglutide,0.25 or 0.5MG/DOS, (Ozempic, 0.25 or 0.5 MG/DOSE,) 2 MG/3ML solution pen-injectorIndic ations:Type 2 diabetes mellitus with hyperglycemia, with long-term current use of insulin (CMS/HCC) Inject 0.5 mg under the skin 1 (one) time per week. 3 mL 2024 Discontinued(R eorder (will not trigger notification to Pharmacy)) insulin glargine (Lantus SoloStar) 100 UNIT/ML penIndications:Ty pe 2 diabetes mellitus with hyperglycemia, with long-term current use of insulin ([facility]) Inject 26 Units under the skin in the morning. 15 mL 11 025 2024 Discontinued(R eorder (will not trigger notification to Pharmacy)) Active Problems Problem Noted Date Diagnosed Date Type 2 diabetes mellitus with peripheral angiopa thy 11/22/2024 Physical deconditioning 11/22/2024 Opacity of lung on imaging study 11/22/2024 Influenza A 11/22/2024 Hypomagnesemia 11/22/2024 Hospital discharge follow-up 11/22/2024 Elevated troponin 11/22/2024 Aspiration pneumonia 11/22/2024 Acquired hammer toe of right foot 11/22/2024 Acute respiratory failure with hypoxia Assessment & Plan (11/25/2024 8:18 AM EDT): Resolved after hospital and rehab stays, back to baseline Acquired hammer toe of left foot 11/22/2024 Abnormal echocardiogram 11/22/2024 CHF (congestive heart failure) 03/29/2024 Epigastric pain 01/26/2024 Assessment & Plan (01/26/2024 2:49 PM EDT): It seems to be either gastritis vs GERD/?esophagitis? It must be triggered by metformin and recent rx PRD/tramadol for gout attack. I gave her info re GERD diet, avoid fats and carbs in her diet. We also talked about avoiding green leaf veggies due to use of coumadin. Use sucralfate tid ac meals x 1w then tid ac meals prn epigastric pain up to 1mo and fu with GI for further evaluation. I will fax this note so they can fu. Patient completed PRD/tramadol 3d ago, will fu with PCP if sxs continue, may need to hold either metformin or Trulicity. Abnormal brain MRI 12/26/2023 Movement disorder 12/26/[address] of the abdomen 11/21/2023 Bilateral carotid artery stenosis 11/21/2023 Chronic anticoagulation 11/21/2023 Deep vein thrombosis 11/21/2023 Heart block 11/21/2023 Asthma 11/21/2023 Menopause 11/21/2023 Multiple falls 11/21/2023 Assessment & Plan (11/25/2024 8:19 AM EDT): Needs supplies to decrease risk of falls at home: She needs a walker with a seat because her previous one needs replacement. She also needs grab bars and a no- slip bath mat. Assessment & Plan (11/25/2023 1:24 PM EDT): Would benefit from more structured support, daughter working multimedia manager, she and brother are primary care givers, nephew was assisting with medications and home care but no longer working as observer gravity prospecting, 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 Plate Furnace Operator list provided for daughter, Referral to vna Presence of IVC filter 11/21/2023 Thickened endometrium 11/21/2023 Chronic gastroesophageal reflux disease 08/23/19 Cerebral microvascular disease 08/23/2023 Obstructive sleep apnea 08/23/2023 Chronic venous insufficiency of lower extremity 08/08/2022 History of COVID-19 08/05/2022 Hypothyroidism 05/21/2015 Allergic rhinitis 05/21/2015 Carotid artery disease, unspecified laterality 1 Coronary arteriosclerosis 05/21/2015 Essential hypertension 05/21/2015 Assessment & Plan (11/25/2023 1:25 PM EDT): Above goal today, monitor. Assessment & Plan (08/08/2022 12:58 PM EST): Controlled. Compliant w/meds Continue lasix + metoprolol. Counseled re low salt diet/increase moderate physical activity. Check home BP BIW and prn CP/HINES/ORDONEZ Non smoking patient. Generalized anxiety disorder 05/21/2015 Assessment & Plan (11/25/2023 1:23 PM EDT): Renew clonazepam 0.5 mg #5 until pt is able to request refill from pcp Hyperlipidemia 05/21/2015 Osteoarthritis 05/21/2015 Osteopenia 05/21/2015 Paroxysmal atrial fibrillation 05/21/2015 Overview (01/26/2024): Seen by Dr Bradshaw, [facility] cards. Assessment & Plan (01/26/2024 2:51 PM EDT): INR was 3 today, coumadin dose adjusted by PCP today, [facility] does POC check. I gave cardiology office info to her daughter so she can call to schedule appt (last seen on 12/2022) Assessment & Plan (08/08/2022 1:03 PM EST): HR controlled today. Last INR on 07/27 was 1.7 and she's currently on 3mg on Mon and Thurs/ 4.5mg on other days. Order INR today, adjust to goal of 2-3 and patient to continue to fu with coumadin clinic. Sensorineural hearing loss 05/21/2015 Type 2 diabetes mellitus 05/21/2015 Assessment & Plan (11/25/2023 1:26 PM EDT): Pt reports discontinuation of trulicity due to gi side effects. Daughter not comfortable facilitating insulin sliding scale or injections, referral to vna for med teaching administration and support. Pt is home bound with limited ambulation and increased falls. Assessment & Plan (08/08/2022 1:08 PM EST): A1c improved from previous one of 9 on admission to [facility]. No change in meds. FU w PCP in 6w Urinary incontinence 05/21/2015 Assessment & Plan (11/25/2024 8:17 AM EDT): Needs renewed rx for pamper 2XL, bedpads, gloves, wipes. Resolved Problems Problem Noted Date Diagnosed Date Resolved Date Cellulitis 11/25/2023 12/26/2023 Assessment & Plan (11/25/2023 1:22 PM EDT): Left hand, completed course of abx, remains tender but now per baseline, aware to report any increased tenderness, or redness. Acute on chronic respiratory failure with hypoxemia 11/21/2023 12/26/2023 Contusion of right shoulder 11/21/2023 12/26/2023 Current use of anticoagulant therapy 11/21/2023 12/26/2023 Assessment & Plan (11/25/2023 1:23 PM EDT): No visible eccymosis, daughter and pt report compliance with oral medications Fall 11/21/2023 12/26/2023 Forehead contusion 11/21/2023 Gastroenteritis 11/21/2023 12/26/2023 Head injury 11/21/2023 12/26/2023 Hypoxia 11/21/2023 12/26/2023 Obesity due to excess calories 11/21/2023 12/26/2023 Sepsis 11/21/2023 12/26/2023 Urgency incontinence 11/21/2023 024 UTI (urinary tract infection) 11/21/2023 12/26/2023 Weakness 11/21/2023 12/26/2023 Well woman exam 11/21/2023 12/26/2023 BMI 40.0-44.9, adult 08/23/2023 025 Arthritis of right shoulder region 08/08/2022 08/23/2023 Assessment & Plan (08/08/2022 1:07 PM EST): 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 Tylenol prn pain Cellulitis of right lower extremity 08/08/2022 08/23/2023 Assessment & Plan (08/08/2022 1:07 PM EST): Resolved on abs Anemia in other chronic dise ases classified elsewhere 08/08/2022 08/23/2023 Assessment & Plan (08/08/2022 1:09 PM EST): Hb of 10 on 07/26 likely due to pneumonia and multiple other conditions. Order cbc and ferritin, fu with PCP Pneumonia of right lower lob e due to infectious organism 08/08/2022 08/23/2023 Assessment & Plan (08/08/2022 1:12 PM EST): Seen on CT scan, CXR was normal. O2 at RA is normal, patient is clinically improved. No further fu is needed. Recommended Covid and Influenza IZ, she agreed to Influenza vax today, wants to discuss Covid booster with family. FU w PCP Age-related cataract 11/06/2018 024 Abnormal taste in mouth 09/28/201808/01 Carotid artery occlusion 05/21/2015 Encounters Date Type Department Care Team Description 01/06/2025 Refill [facility] [address] [place] [address] Valeri Lerner, 01/02/2025 Anticoagulation - Warfarin Visit [facility] [address] [place] [address] Michaela Rollins RN Paroxysmal atrial fibrillation ([facility]) 12/24/2024 Telephone [facility] [address] [place] [address] Valeri Lerner, 12/20/2024 Travel 12/20/2024 Refill [facility] [address] [place] [address] Valeri Lerner, 12/17/2024 Anticoagulation - Warfarin Visit [facility] [address] [place] [address] Michaela Rollins RN Paroxysmal atrial fibrillation ([facility]) 12/11/2024 Telephone [facility] [address], [place] [address] Valeri Lerner, 12/03/2024 Anticoagulation - Warfarin Visit [facility] [address] [place] [address] Michaela Rollins, [place] Paroxysmal atrial fibrillation ([facility]) 12/02/2024 Refill [facility] [address] [place] [address] Valeri Lerner, 11/27/2024 Telephone [facility] [address] [place] [address] Laquita Matos MD 11/26/2024 Anticoagulation - Warfarin Visit [facility] [address] [place] [address] Michaela Rollins RN Paroxysmal atrial fibrillation ([facility]) 11/22/2024 1:00 PM EDT Office Visit [facility] [address] [place] [address] Laquita Matos MD Acute respiratory failure with hypoxia ([facility]) (Primary Dx); Type 2 diabetes mellitus with hyperglycemia, with long-term current use of insulin ([facility]); Dietary counseling; Exercise counseling; Overweight; Acute congestive heart failure, unspecified heart failure type ([facility]); Urinary incontinence, unspecified type; Multiple falls; Movement disorder; Physical deconditioning; Acute cystitis with hematuria 11/22/2024 Travel 11/20/2024 Telephone [facility] [address] [facility] [place] [address] Valeri Lerner DO Chart Prep 11/15/2024 Anticoagulation - Warfarin Visit [facility] [address] [place] [address] Michaela Rollins RN Paroxysmal atrial fibrillation ([facility]) 11/08/2024 Anticoagulation - Warfarin Visit [facility] [address] [facility] [place] [address] Michaela Rollins RN Paroxysmal atrial fibrillation ([facility]) 11/07/2024 Refill [facility] [address] [place] [address] Valeri Lerner DO Paroxysmal atrial fibrillation ([facility]) 11/06/2024 Anticoagulation - Warfarin Visit [facility] [address] [place] [address] Michaela Rollins RN Paroxysmal atrial fibrillation ([facility]) 11/05/2024 Telephone [facility] [address] [facility] [place] [address] Valeri Lerner DO INR/Coumadin/HDF 10/21/2024 Patient Outreach [facility] [place] [address] Valeri Lerner DO Transition Of Care (Tcm) (HDF- Has been cancelled ) 10/15/2024 Patient Outreach [facility] [place] [address] Valeri Lerner DO Transition Of Care (Tcm) (HDF- scheduled) 10/15/2024 Telephone [facility] [address] [facility] [place] [address] Valeri Lerner DO Coagulation Disorder 10/11/2024 Orders Only [facility] External Provider, [facility] 10/10/2024 Orders Only GENERIC EXTERNAL DATA DEPARTMENT Provider, Generic External Data 10/08/2024 Anticoagulation - Warfarin Visit [facility] [address] [place] [address] Hanane Jackson RN Paroxysmal atrial fibrillation ([facility]/HCC) 10/08/2024 Telephone [facility] [address] [place] [address] Valeri Lerner DO FYI 10/06/2024 Refill [facility] [address] [place], [place] [id number] Valeri Lerner DO Other hyperlipidemia; Chronic constipation from Last 3 Months Immunizations Immunization Administration Dates Next Due Hep B, adult 06/14/2024,07/02/2015,05/21/2015 Influenza High-dose Quadriva lent Preservative Free 06/07/2021 Influenza injectable quadriv alent IIV4 with preservative 08/08/2022,07/01/2016,05/21/2015 Influenza injectable quadriv alent preservative free 08/23/2023 Influenza, High Dose Seasona l, Preservative Free 04/26/2024,04/12/2019,05/21/2018,05/02 Influenza, IIV3, injectable 04/28/2014, 1 Influenza, Split (incl. carri fied surface antigen) 04/17/2013,06/12/2012 Moderna Covid-19 Vaccine 12+ 11/06/2020,10/10/19 21 Pfizer Covid-19 Vaccine 12+ 04/26/2024,,08/23/2023 Pneumococcal Conjugate PCV 13 07/02/2015 Pneumococcal Conjugate PCV 20 12/26/2023 Pneumococcal Polysaccharide PPSV23 11/04/2013 RSV Bivalent 03/07/2024 TD (adult), 2 Lf tetanus tox oid, preservative free, adsorbed 07/23/2003 Tdap 12/26/2023,08/06/2013 Zoster, Recombinant 03/07/2024,06/07/2021 Zoster, live 07/02/2015 Social History Tobacco Use Types Packs/Day Years Used Date Smoking Tobacco: Never Passive Smoke Exposure: Never Smokeless Tobacco: Never Tobacco Cessation:Counseling Given: Not Answered Alcohol Use Standard Drinks/Week Comments Never 0 [...] Sex Female 10:14 AM EDT Gender Identity Female 11/25/2024 8:15 AM EDT Sexual Orientation Straight 05/30/2022 10 :14 AM EDT Last Filed Vital Signs Vital Sign Reading Time Taken Comments Blood Pressure 128/72 12/20/2024 11:53 AM EDT Pulse 68 11/22/2024 1:35 PM EDT Temperature 36.8 ??C (98.2 ??F) 07/15/2024 1 1:21 AM EST Respiratory Rate 16 11/22/2024 1:35 PM EDT Oxygen Saturation 98% 11/22/2024 1:3 5 PM EDT Inhaled Oxygen Concentration - - Weight 95.3 kg (210 lb) 11/22/2024 1:35 PM EDT per pt daughter Catarina Height 160 cm (5' 3 ) 11/22/2024 1:35 PM EDT Body Mass Index 37.2 11/22/2024 1:35 PM EDT Plan of Treatment Upcoming Encounters Date Type Department Care Team (Late st Contact Info) Description 05/16/2025 1:30 PM EDT Office Visit [facility] [address] [place], [place] [id number] Tod, Ai, OD [address] [place] [address] Health Maintenance Due Date Last Done Comments Dental Oral Exam 1935 Dental Prophylaxis 1935 Dental X-Ray: Bitewings 1935 Dental X-Ray: Full Mouth 1935 Diabetes: Foot Exam 1945 Alcohol/Substance Use Screening 1947 Diabetes: Urine Protein Screening 08/31/2024 08/31/2023, 01/19/2022, 05/19/2021, Additional history exists Lipid Panel 08/31/2024 08/31/2023 COVID-19 Vaccine ( season) 2024 04/26/2024, 12/26/2023, 08/23/2023, Additional history exists SDOH Screening 11/20/2024 11/21/2023 Diabetes: Hemoglobin A1C 02/21/2025 025, 10/30/2024, 07/15/2024, Additional history exists Eye Exam 06/24/2025 06/24/2024, 06/01, 06/24/2024, Additional history exists Depression Screening 07/15/2025 07/15/2024, 07/15/20 Tobacco Screening 11/25/2025 11/25/2024 DTaP/Tdap/Td Vaccines (3 - Td or Tdap) 12/25/2033 12/26/2023, 08/06/2013, 07/23/2003 Pneumococcal Vaccine: 50+ Years Completed 12/26/2023, 07/02/2015, 11/04/2013 RSV Patients and Patients Aged 60 years or older Completed 03/07/2024 Zoster Vaccines Completed 03/07/2024, 02/2021, 07/02/2015 Influenza Vaccine Completed 04/26/2024, , 08/08/2022, Additional history exists Hepatitis B Vaccines Completed 06/14/2024, 07/02/2015, 05/21/2015 HIB Vaccines Aged Out No longer eligi ble based on patient's age to complete this topic HPV Vaccines Aged Out No longer eligi ble based on patient's age to complete this topic Hepatitis A Vaccines Aged Out No long er eligible based on patient's age to complete this topic IPV Vaccines Aged Out No longer eligi ble based on patient's age to complete this topic Meningococcal B Vaccine Aged Out No l onger eligible based on patient's age to complete this topic Meningococcal Vaccine Aged Out No bladimir roxanna eligible based on patient's age to complete this topic RSV under 20 months Aged Out No longe r eligible based on patient's age to complete this topic Rotavirus Vaccines Aged Out No longer eligible based on patient's age to complete this topic Goals Goal Patient Goal Type Associated Problems Recent Progress Patient-Stated? Author Patient will adhere to medication regimen General No Batsheva Gomez PharmD Record your blood sugar as directed Result Component No Batsheva Gomez PharmD Note: Resume CGM. Ensure sensor is scanned at least once every 8 hours to capture 24H data. Check BG manually, as directed. Hemoglobin A1c < 8 Result Component 7.1( 1:42 PM EDT) No Batsheva Gomez PharmD Procedures Procedure Name Priority Date/Time Associated Diagnosis Comments PROTHROMBIN TIME-INR Routine 12/31/2024 PROTHROMBIN TIME-INR Routine 12/17/2024 PROTHROMBIN TIME-INR Routine 12/03/2024 PROTHROMBIN TIME-INR Routine 11/26/2024 POCT URINALYSIS DIPSTICK Routine 11/22/2024 2:18 PM EDT Type 2 diabetes mellitus with hyperglycemia, with long-term current use of insulin ([facility]) POCT GLYCATED HEMOGLOBIN, TOTAL Routine 11/22/2024 1:42 PM EDT Type 2 diabetes mellitus with hyperglycemia, with long-term current use of insulin ([facility]) POCT GLUCOSE Routine 11/22/2024 1:38 PM EDT Type 2 diabetes mellitus with hyperglycemia, with long-term current use of insulin ([facility]) PROTHROMBIN TIME-INR Routine 11/15/2024 PROTHROMBIN TIME-INR Routine 11/08/2024 PROTHROMBIN TIME-INR Routine 11/06/2024 PROTHROMBIN TIME-INR Routine 11/05/2024 PROTHROMBIN TIME-INR Routine 11/01/2024 XR CHEST 1 VIEW Routine 10/16/2024 2:14 PM EDT XR CHEST 1 VIEW Routine 10/10/2024 11:38 PM EDT SLIDE REVIEW Routine 10/10/2024 11:28 PM EDT CBC WITH AUTO DIFFERENTIAL Routine 10/10/2024 11:28 PM EDT COMPREHENSIVE METABOLIC PANEL Routine 10/10/2024 11:28 PM EDT LACTIC ACID Routine 10/10/2024 11:28 PM EDT SARS COV2/INFLUENZA A/B AND RSV RNA QL NAAT Routine 10/10/2024 10:58 PM EDT XR LUMBAR SPINE 2-3 VIEWS Routine 10/10/2024 9:55 PM EDT URINALYSIS, COMPLETE, WITH REFLEX TO CULTURE Routine 10/10/2024 9:33 PM EDT PROTHROMBIN TIME-INR Routine 10/08/2024 ALBUMIN, RANDOM URINE W/CREATININE Routine 08/31/2023 4:16 PM EST Type 2 diabetes mellitus with hyperglycemia, with long-term current use of insulin ([facility]) LIPID PANEL, STANDARD Routine 08/31/2023 4:11 PM EST Type 2 diabetes mellitus with hyperglycemia, with long-term current use of insulin ([facility]) from Last 3 Months or Most Recently Relevant to Health Maintenance Results * (ABNORMAL) Prothrombin Time-INR (12/31/2024) Only the most recent of10 resultswithin the time period is included. INR 2.80(A) 2.00 - 3.00 EXTERNAL LAB Protime EXTERNAL LAB Blood Venous blood specimen / Unknown 12/31/2024 us Valeri Lerner DO LAB BLOOD ORDERABLES Final R esult EXTERNAL LAB * (ABNORMAL) POCT Urinalysis (11/22/2024 2:18 PM EDT) Color, UA Yellow Clarity, UA Cloudy Glucose, UA Negative Bilirubin, UA Negative Ketones, UA Negative Spec Grav, UA 1.020 Blood, UA Positive(A) Negative, None Detected Comment:Trace pH, UA 6.0 Protein, UA Negative Urobilinogen, UA 0.2 Leukocytes, UA Trace Negative, Rare, Trace Comment:large Nitrite, UA Positive(A) Negative, None Detected Appearance, UA clear QC Media Lot # [id number] Lot# Expiration Date Urine 11/22/2024 2:18 PM EDT Laquita Matos MD POINT OF CARE TEST ENTER/EDIT ORDERABLES Final Result * (ABNORMAL) POCT HGB A1C (11/22/2024 1:42 PM EDT) [facility] Hemoglobin A1C 7.1(A) 4.0 - 6.0 % QC Media Lot # [id number] Lot# Expiration Date 01, Blood 11/22/2024 1:42 PM EDT Laquita Matos MD POINT OF CARE TEST ENTER/EDIT ORDERABLES Final Result * (ABNORMAL) POCT Glucose (11/22/2024 1:38 PM EDT) [facility] Glucose Blood, POC 215(A) 60 - 200 mg/dL QC Media Lot # [id number] Lot# Expiration Date Blood Capillary blood specimen / Unknown 11/22/2024 1:38 PM EDT Laquita Matos MD POINT OF CARE TEST ENTER/EDIT ORDERABLES Final Result * XR Chest 1 View (10/16/2024 2:14 PM EDT) Only the most recent of2 resultswithin the time period is included. Anatomical Region Laterality Modality Chest Radiographic Isabella ging 10/16/2024 2:14 PM EDT Narrative 10/16/2024 3:00 PM EDT ? [facility] ?[address] ?[place] [address] ?XRay Report ? Signed ? Patient: Morgan Morgan,Nikky ?MR#: ?? [id number] ? : 1935 ?Acct:[id number] ? Age/Sex: 89 / F ?ADM Date: 03/14/25 ? Loc: HO.IMC ?479-1 ? Attending Margy Byers MD ? Ordering Physician: Jairon Byers MD ?? Date of Service: 10/16/24 ?? Procedure(s): XR chest 1V ?? Accession Number(s): [id number] ? cc: Jairon Byers MD; Valeri Lerner DO ? EXAMINATION: ??XR CHEST 1 VIEW ? HISTORY: F U RLL infiltrate and hypoxia ? COMPARISON: Comparison is made with the prior examination dated ?? 10/10/2024. ? FINDINGS: ??A single AP portable view of the chest performed at 2:13 PM ?? is submitted. There are waxing and waning multifocal opacities in both ?? lungs, most prominent at the right lung base and in the left upper lung ?? zone. ??There is no pleural effusion, pneumothorax, or pulmonary ?? vascular congestion. ??The heart is enlarged. The aorta is calcified. ? There is degenerative disc disease of the spine. There is severe ?? degenerative change of the shoulders. ? XR/XR chest 1V ?? IMPRESSION: ?? Cardiomegaly. Waxing and waning bilateral pulmonary opacities likely ?? representing pneumonia or asymmetric pulmonary edema. ? Electronically signed by: ??Tyler Mendez MD ??10/16/2024 02:56 PM EDT ? Dictated By: ?Tyler Mendez MD ? Signed By: ?<Electronically signed by Tyler Mendez MD in OV> ?10/16/24 1456 ? DD/ 1414 ? TD/TT: 10/16/24 1416 ? [employer] Systems Administrator: ? Procedure Note Nam, Néstor - 10/16/2024 [place] [address] XRay Report Signed Patient: Cassie Guevara#: [id number] : 6Acct:[id number] Age/Sex: 89 / FADM Date: 10/11/24 Loc: [facility] 479-[address]: Jairon Byers MD Ordering Physician: Jairon Byers MD Date of Service: 10/16/24 Procedure(s): XR chest 1V Accession Number(s): [id number] cc: Jairon Byers MD; Valeri Lerner DO EXAMINATION: XR CHEST 1 VIEW HISTORY: F U RLL infiltrate and hypoxia COMPARISON: Comparison is made with the prior examination dated 10/10/2024. FINDINGS: A single AP portable view of the chest performed at 2:13 PM is submitted. There are waxing and waning multifocal opacities in both lungs, most prominent at the right lung base and in the left upper lung zone. There is no pleural effusion, pneumothorax, or pulmonary vascular congestion. The heart is enlarged. The aorta is calcified. There is degenerative disc disease of the spine. There is severe degenerative change of the shoulders. XR/XR chest 1V IMPRESSION: Cardiomegaly. Waxing and waning bilateral pulmonary opacities likely representing pneumonia or asymmetric pulmonary edema. Electronically signed by: Tyler Mendez MD 10/16/2024 02:56 PM EDT RP Dictated By: Tyler Mendez MD Signed By: <Electronically signed by Tyler Mendez MD in OV> 10/16/24 1456 DD/ 1414 TD/TT: 10/16/24 1416 [employer] Administrator: [facility] External Provider IMG XR PROCEDURES Final Result * Slide Review (10/10/2024 11:28 PM EDT) Slide Review VERIFIED [facility] 10/10/2024 11:2 8 PM EDT 10/10/2024 11:32 PM EDT Generic External Data Provider LAB BLOOD ORDERAB LES Final Result [facility] [address] [place] [phone] * (ABNORMAL) CBC auto differential (10/10/2024 11:28 PM EDT) White Blood Count 10.7 4.8 - 10.8 X10*3/uL [facility] Red Blood Count 3.87(L) 4.20 - 5.50 X10*6/uL [facility] Hemoglobin 12.1 12.0 - 16.0 g/dl [facility] Hematocrit 35.7(L) 37.0 - 47.0 % [facility] Mean Corpuscular Volume 92.2 80.0 - 98.0 fL [facility] Mean Corpuscular Hemoglobin 31.3 27.0 - 33.0 pg [facility] Mean Corpuscular HGB Conc 33.9 31.0 - 35.0 g/dl [facility] Red Cell Distribution Width 13.2 11.0 - 16.0 % [facility] Platelet Count TNP 160 - 400 X10*3/uL [facility] Comment:Platelet clumps note d. Platelet count will not be accurate. Mean Platelet Volume TNP 9.4 - 12.3 fL [facility] Neutrophils Percent Auto 73.7(H) 45 - 73 % [facility] Imm Gran Pct Auto 0.6(H) 0.0 - 0.4 % [facility] Lymphocytes Percent Auto 17.8(L) 20 - 40 % [facility] Monocytes Percent Auto 6.9 2 - 11 % [facility] Eosinophils Percent Auto 0.7 0 - 4 % [facility] Basophils Percent Auto 0.3 0 - 2 % [facility] NRBC Pct Auto 0.0 0.0 - 0.2 /100WBC [facility] Neutrophils Absolute Auto 7.9 2.0 - 8.3 x10*3/uL [facility] Imm Gran Abs Auto 0.06(H) 0.00 - 0.03 X10*3/uL [facility] Lymphocytes Absolute Auto 1.9 1.2 - 4.9 X10*3/uL [facility] Monocytes Absolute Auto 0.7 0.1 - 1.2 X10*3/uL [facility] Eosinophils Absolute Auto 0.1 0.0 - 0.4 X10*3/uL [facility] Basophils Absolute Auto 0.0 0.0 - 0.2 X10*3/uL [facility] NRBC Abs Auto 0.000 0.0 - 0.012 X10*3/uL [facility] 10/10/2024 11:2 8 PM EDT 10/10/2024 11:32 PM EDT Generic External Data Provider LAB BLOOD ORDERAB LES Edited Result - Final Performing Organization Address City/[facility]/ZIP Co de Phone Number [facility] [address] [place] [phone] * Lactic Acid (10/10/2024 11:28 PM EDT) Pathologist [facility] Lactic Acid 1.4 0.5 - 2.0 mmol/L [facility] 10/10/2024 11:2 8 PM EDT 10/10/2024 11:32 PM EDT Generic External Data Provider LAB BLOOD ORDERAB LES Final Result Performing Organization Address [facility] Co de Phone Number [facility] [address] [place] [phone] * (ABNORMAL) Comprehensive Metabolic Panel (10/10/2024 11:28 PM EDT) Pathologist [facility] Sodium 136 135 - 145 mmol/L [facility] Potassium 4.1 3.3 - 5.1 mmol/L [facility] Comment:Mild Hemolysis.Inter pret result with caution Chloride 101 96 - 108 mmol/L [facility] Carbon Dioxide 25 22 - 29 mmol/L [facility] Anion Gap 14 12 - 20 [facility] Urea Nitrogen (BUN) 13 9 - 16 mg/dL [facility] Creatinine, Serum 0.90 0.5 - 1.4 mg/dL [facility] Creatinine Clr Calc Pharmacy 47.6 [facility] Comment:Provided height and weight: 162.56 cm,96 kg.eGFR (calculated from the MDRD study equation) and eCrCl(calculated from the Cockcroft-Gault equation) are based ondifferent parameters and may not yield comparable results.If eCrCl result is absurd, please check patient'sheight/weight. Estimated Glomerular Filt Rate 59 [facility] Comment:Chronic Kidney Disea se: Estimated GFR < 60 mL/min/1.91w6Eqjusu Kidney Disease: Estimated GFR < 15 mL/min/1.73m2 Glucose 178(H) 60 - 115 mg/dL [facility] Calcium 9.4 8.4 - 10.2 mg/dL [facility] Bilirubin, Total 0.8 0.0 - 1.0 mg/dL [facility] Aspartate Amino Transferase 45(H) 5 - 31 U/L [facility] Comment:Mild Hemolysis.Inter pret result with caution Alanine Aminotransferase 18 0 - 31 U/L [facility] Total Protein 8.3(H) 6.5 - 8.0 g/dL [facility] Comment:Mild Hemolysis.Inter pret result with caution Albumin Level 3.3(L) 3.5 - 5.0 g/dL [facility] Alkaline Phosphatase 119(H) 39 - 117 U/L [facility] 10/10/2024 11:2 8 PM EDT 10/10/2024 11:32 PM EDT us Generic External Data Provider LAB BLOOD ORDERAB LES Final Result [facility] [address] [place] [phone] * SARS-CoV-2 RNA, Influenza A/B, and RSV RNA, Ql NAAT (10/10/2024 10:58 PM EDT) Influenza A PCR NEGATIVE Negative [facility] Influenza B PCR NEGATIVE Negative [facility] Resp Syncy Virus RNA Qual PCR NEGATIVE Negative [facility] SARS COV2 PCR NEGATIVE Negative [facility] Comment:All test results mus t be [...] use by authorized laboratories.Testing performed on the [employer] utilizingreal-time RT-PCR.All SARS CoV2 and positive influenza A/B results arereported to [facility]. 10/10/2024 10:5 8 PM EDT 10/11/2024 us Generic External Data Provider LAB MICROBIOLOGY - GENERAL ORDERABLES Final Result [facility] [address] [place] [phone] * XR Lumbar Spine 2-3 Views (10/10/2024 9:55 PM EDT) Anatomical Region Laterality Modality Spine, L-spine Radiographic Isabella ging 10/10/2024 9:55 PM EDT Narrative 10/10/2024 9:57 PM EDT ? [facility] ?[address] ?[place] [address] ?XRay Report ? Signed ? Patient: Eddie Barneszquez,Nikky ?MR#: ?? [id number] ? : 1935 ?Acct:[id number] ? Age/Sex: 89 / F ?ADM Date: 10/10/24 ? Loc: HO.ED ? Attending Dr: ? Ordering Physician: Generic ED Physician ?? Date of Service: 10/10/24 ?? Procedure(s): XR lumbar spine 2-3V ?? Accession Number(s): [id number] ? cc: Generic ED Physician; Valeri Lerner DO ? CLINICAL HISTORY: pain ? 3 views lumbar spine ? Comparison: CT/SR - CT ABDOMEN PELVIS WO IV CON - 09/16/24 13:50 EST ? Findings: ?? Normal vertebral body alignment. ?? Scatter artifact and under exposure significantly limit evaluation of the ?? spine on the lateral images. ?? There are mild appearing compression deformities throughout the lumbar ?? spine which are likely old, however technically indeterminate. ?? Multilevel marginal osteophytes. ?? Severe lower lumbar facet disease. ? IVC filter in place. ? IMPRESSION: ?? Within the significant limitations of the exam, the mild multilevel ?? compression deformities of the lumbar spine are favored to be chronic. ?? Further characterization with CT or MRI can be helpful if there is ?? intractable pain. ? This document has been electronically signed by: Mitzi Drew, ?? on 10/10/2024 21:55:13 ? Dictated By: ?Mitzi Drew MD ? Signed By: ?<Electronically signed by Mitzi Drew MD in OV> ?10/10/242155 ? DD/ 54 ? TD/TT: 10/10/242154 ? [employer] Systems Administrator: ? Procedure Note Donotdelroyter, Image - 10/10/[address] [address] XRay Report Signed Patient: Cassie Guevara#: [id number] : 1935cct:[id number] Age/Sex: 89 / FADM Date: 10/10/24 Loc: HO.ED Attending Dr: Ordering Physician: Generic ED Physician Date of Service: 10/10/24 Procedure(s): XR lumbar spine 2-3V Accession Number(s): [id number] cc: Generic ED Physician; Valeri Lerner DO CLINICAL HISTORY: pain 3 views lumbar spine Comparison: CT/SR - CT ABDOMEN PELVIS WO IV CON - 09/16/24 13:50 EST Findings: Normal vertebral body alignment. Scatter artifact and under exposure significantly limit evaluation of the spine on the lateral images. There are mild appearing compression deformities throughout the lumbar spine which are likely old, however technically indeterminate. Multilevel marginal osteophytes. Severe lower lumbar facet disease. IVC filter in place. IMPRESSION: Within the significant limitations of the exam, the mild multilevel compression deformities of the lumbar spine are favored to be chronic. Further characterization with CT or MRI can be helpful if there is intractable pain. This document has been electronically signed by: Mitzi Drew MD on 10/10/2024 21:55:13 Dictated By: Mitzi Drew MD Signed By: <Electronically signed by Mitzi Drew MD in OV> 10/10/242155 DD/ 54 TD/TT: 10/10/242154 [employer] Administrator: [facility] External Provider IMG XR PROCEDURES Edited Result - Final * (ABNORMAL) Urinalysis, Complete, with Reflex to Culture (10/10/2024 9:33 PM EDT) Color Urine Dark Yellow [facility] Appearance Urine Clear [facility] PH 6.0 5.0 - 9.0 [facility] Glucose Urine UA Negative Negative mg/dL [facility] Urine Blood Small (1+)(A) Negative [facility] Specific [place] - Urine 1.010 1.005 - 1.025 [facility] Urine Protein 100 (2+)(A) Neg-Trace mg/dL [facility] Urine Ketones Negative Negative mg/dL [facility] Nitrite Urine Negative Negative [facility] Leukocyte Esterase Urine Negative Negative [facility] RBC Urine 3-5(A) 0 - 2 /HPF [facility] Urine WBC 0-5 0 - 5 /HPF [facility] Urine Squamous Epithelial Cell 0-2 0 - 2 /HPF [facility] Urine Bacteria None Seen None Seen [facility] Hyaline Casts, Urine 0-2 0 - 2 /LPF [facility] 10/10/2024 9:33 PM EDT 10/10/2024 9:35 PM EDT Narrative [facility] - 10/10/2024 9:51 PM EDT Urine, Clean Catch us Generic External Data Provider LAB URINE ORDERAB LES Final Result [facility] [address] [place] [phone] * (ABNORMAL) Albumin, Random Urine W/Creatinine (08/31/2023 4:16 PM EST) Creatinine, Urine 25.77 mg/dL [facility] Microalbumin Urine 31.0 mg/L H [facility] Microalbum Creatinine Ratio Ur 120.2(H) <30 ug/mg cr [facility] Comment:Albumin/Creatinine R atio Reference Ranges: Normal: < 30 ug/mg creatinine Microalbuminuria: 30 - 300 ug/mg creatinineClinical Albuminuria: > 300 ug/mg creatinine Urine (Urine, Random) 08/31/2023 4:16 PM EST 08/31/2023 5:27 PM EST Valeri Lerner DO LAB URINE ORDERABLES Final R esult Performing Organization Address City/[facility] Co de Phone Number [facility] [address] [place] [phone] * (ABNORMAL) Lipid Panel, Standard (08/31/2023 4:11 PM EST) Triglycerides 349(H) <150 mg/dL [facility] Comment:Desirable Triglyceri de: less than 150 mg/dLBorderline High Triglyceride 150-199 mg/dLHigh Triglyceride: 200-499 mg/dLVery High Triglyceride: greater than or equal to 5OO mg/dL Cholesterol 149 <200 mg/dL [facility] Comment:Desirable Cholestero l: less than 200 mg/dLBorderline High Cholesterol: 200-239 mg/dLHigh Cholesterol: greater than 239 mg/dL LDL Cholesterol Calculated 41 <100 mg/dL [facility] Comment:Desirable LDL: less than 100 mg/dLNear Optimal/Above Optimal LDL: 110- 129 mg/dLBorderline High LDL: 130-159 mg/dLHigh LDL: 160-189 mg/dLVery High LDL: greater than or equal to 190 mg/dL HDL Cholesterol 39(L) >40 mg/dL [facility] Comment:Desirable HDL: great er than 40 mg/dL Note: This HDL assay may give artificially low results in patients with liver disease. Blood Venous blood specimen / Unknown 08/31/2023 4:11 PM EST 08/31/2023 5:27 PM EST us Valeri Lerner DO LAB BLOOD ORDERABLES Final R esult Performing Organization Address City/[facility]/ZIP Co de Phone Number [facility] [address] [place] [phone] from Last 3 Months or Most Recently Relevant to Health Maintenance Insurance [facility] STANDARD [facility] [employer] [address] [place] [phone] [address] [place] [address] Care Teams Contact Lens Fitter Relationship Specialty Start Date End Date Valeri Lerner DO [address] [place] [phone] PCP - General Family Medicine 07/13/12 [id number] 12/08/23
== END 2025-01-06 10:03 | disposition home or self-care (01) ==
LOC: HO.CT 10:02
PROVIDERS: PCP Family Medicine; Visit Provider Nurse Practitioner
DX: R93.5 Abnormal findings on diagnostic imaging of other abdominal regions, including retroperitoneum (principal); D37.4 Neoplasm of uncertain behavior of colon
CPT/HCPCS: 74261

== ENCOUNTER 2025-02-13 08:47 | Inpatient (IN) | payer OTHER, SELFPAY ==
--- OUTSIDE RECORDS SUMMARY | 2024-12-13 08:45 | XMS_ITS ---
Author Organization [facility] Address [address] [place] [address] Care Team Providers Care Equipment Processer Storage Name Role Phone Valeri Lerner Primary Care Provider UnavailKeenan Dalton Unavailable [phone] Archuleta Encounters Encounter Location Date Provider Diagnosis [address] [address] 12/13/2024 Keenan Dyer Plan Of Treatment Next Appt Details Provider Name:Keenan Dyer , 04/18/2025 01:00:00 PM, [address] [place] [address], [phone], Progress Notes * Anna WOODCoraB:[birth year] (89 yo F)Acc No.[id number]:12/13/2024 Progress Note Patient: Nikky SINGH Provider: Gabbi Dyre DPM :1935 A ge:89 Y S ex:Female Date:12/13/2024 Address:[address] [place] [phone] Pcp:Valeri Lerner Subjective: * Chief Complaints: * [...] 0 12/13/2024 Generated for Tray López on: 0 02/13/2025 11:14 AM EDT
[2025-02-13] VITALS (7 sets, daily range): BP systolic 108–143; BP diastolic 50–72; PULSE 75–98; RESP 16–25; TEMP 36–37.2; O2SAT 82–97; BMI 36.0; BMI 35.9
--- NOTE | ~2025-02-13 | CT_ITS ---
EXAMINATION: CT LUMBAR SPINE WITHOUT CONTRAST CLINICAL INFORMATION: Trauma, fall, pain DLP: 1284 mGY*cm COMPARISON: CT September 16, 2024 TECHNIQUE: Axial imaging was performed from mid T11 through the lower sacrum coccygeal region without IV contrast. Coronal and sagittal reformatted images were generated from the original axial data set. This CT examination was performed using dose optimization techniques as appropriate, variously including the following: *Automated exposure control *Adjustment of mA and/or kV according to patient size (this includes techniques or standardized protocols for targeted exams where dose is matched to indication/reason for exam; i.e. extremities or head) *Use of iterative reconstruction technique FINDINGS: There is a simple renal cysts are present in both kidneys. There is mild to moderate fatty atrophy of the paraspinal musculature. There is 2 mm to right kidney ossification likely representing a stone. There are 5 nonrib-bearing lumbar segments. There is moderate concavity involving superior L2 that is unchanged. Stippled calcifications within the discs is likely related to pyrophosphate deposition. There is abutment with sclerosis of the spinous processes at L2-3, L3-4, and L4-5. There are mild degenerative changes in the right SI joint. CT/CT lumbar spine wo IV con IMPRESSION: Stable chronic moderate superior endplate fracture of L2. CPPD arthropathy. Spinous process abutment at L2-3, L3-4, and L4-5. This can be a source of back pain. Electronically signed by: Magdy Lloyd MD 02/13/2025 11:28 AM EDT
--- NOTE | ~2025-02-13 | CT_ITS ---
EXAMINATION: CT CHEST WITHOUT IV CONTRAST INDICATION: SOB, hypoxia, fall COMPARISON: Comparison is made with the prior examination dated 07/22/2023. TECHNIQUE: Helical CT scan of the chest was performed without intravenous contrast. Coronal and sagittal reformatted images were generated and reviewed. This CT exam was performed with one or more of the following dose reduction techniques: automated exposure control, adjustment of the mA and/or kV according to patient size, use of iterative reconstruction technique. DLP: 289 mGy-cm CHEST: THYROID: The thyroid is unremarkable. LUNGS: There are multifocal linear opacities compatible with scarring. There are no focal airspace opacities. MEDIASTINUM: There is no mediastinal lymphadenopathy. SHO: Evaluation of the hilar regions is limited by lack of intravenous contrast material. CARDIOVASCULATURE: The heart is normal in size. There is no pericardial effusion. The thoracic aorta is normal in caliber. 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 PLEURA: There is no pleural effusion. No pneumothorax. MAIN AIRWAYS: The mainstem bronchi and proximal branches are patent. AXILLA: There is no axillary lymphadenopathy. BONES AND SOFT TISSUES: There is degenerative disc disease of the spine. UPPER ABDOMEN: The visualized portions of the liver and spleen have an unremarkable unenhanced appearance. CT/CT chest wo IV con IMPRESSION: No evidence of traumatic injury to the chest. No focal airspace opacity is identified. Electronically signed by: Tyler Mendez MD 02/13/2025 11:22 AM EDT
--- NOTE | ~2025-02-13 | CT_ITS ---
EXAMINATION: CT CERVICAL SPINE WITHOUT CONTRAST CLINICAL INFORMATION: Fall, head strike, neck pain. COMPARISON: Numerous priors, most recently 04/02/2024. TECHNIQUE: Spiral CT imaging of the cervical spine performed in axial plane without contrast. Multiplanar reformatted images were constructed from the axial data set. This CT examination was performed using dose optimization techniques as appropriate, variously including the following: *Automated exposure control *Adjustment of mA and/or kV according to patient size (this includes techniques or standardized protocols for targeted exams where dose is matched to indication/reason for exam; i.e. extremities or head) *Use of iterative reconstruction technique FINDINGS: CORONAL ALIGNMENT: -There is a mild right convex scoliosis. SAGITTAL ALIGNMENT: -Mild straightening of the normal lordosis. -There is no evidence of traumatic subluxation. -There is a 2 mm degenerative appearing retrolisthesis C5 on C6. C1-C2 AND CRANIOCERVICAL JUNCTION: -Intact and normally aligned. There are moderate degenerative changes in the atlantoaxial joint. VERTEBRAL BODIES AND FACETS: -No fractures, compression deformity, or suspicious bone lesions. No traumatic malalignment. -Normal facet alignment. There are mild degenerative multilevel facet changes bilaterally. DISCS: -There is moderate disc degeneration at C5-6. There is otherwise mild disc degeneration at the above levels. CENTRAL CANAL: -No evidence of high-grade central canal narrowing or large disc herniation allowing for modality limitations. -There is mild to moderate stenosis at C5-6 and C6-7 secondary to dorsal disc osteophytic ridges. PREVERTEBRAL AND PARAVERTEBRAL SOFT TISSUES: -No prevertebral or paravertebral soft tissue edema or abnormal fluid collection. -Normal-appearing thyroid. -No mass or abnormal lymphadenopathy within the neck. LUNG APICES: -Limited by respiratory motion artifact. Grossly clear bilaterally. CT/CT cervical spine wo IV con IMPRESSION: 1. No CT evidence of acute cervical spine fracture or injury. 2. Stable degenerative spondylosis most notable at C5-6 and C6-7. Electronically signed by: Aakash Pisano MD 02/13/2025 11:23 AM EDT
--- NOTE | ~2025-02-13 | CT_ITS ---
EXAMINATION: CT HEAD WITHOUT CONTRAST CLINICAL INFORMATION: Head trauma, fall COMPARISON: 04/02/2024 CT and MRI January 19, 2022 TECHNIQUE: Contiguous axial imaging was performed from the skull base to vertex without intravenous administration of contrast. This CT examination was performed using dose optimization techniques as appropriate, variously including the following: *Automated exposure control *Adjustment of mA and/or kV according to patient size (this includes techniques or standardized protocols for targeted exams where dose is matched to indication/reason for exam; i.e. extremities or head) *Use of iterative reconstruction technique DLP: 1095 mGY*cm FINDINGS: There is no acute ischemic change. There is no intracranial hemorrhage. There is no mass-effect or midline shift. There is mild to moderate generalized atrophy. Basal cisterns and ventricles are within normal limits for age/cerebral volume. Orbits are symmetrical and unremarkable. Paranasal sinuses and mastoid air cells are pneumatized. 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 CT/CT head/brain wo IV con IMPRESSION: No acute intracranial abnormality. Generalized atrophy. 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 Electronically signed by: Magdy Lloyd MD 02/13/2025 11:39 AM EDT
--- NOTE | 2025-02-13 08:49 | ED_ITS ---
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 (all interactions with this patient were facilitated with an [facility] hand therapist) Mode of arrival: EMS Limitations: language barrier (all interactions with this patient were facilitated with an [facility] hand therapist) History of Present Illness ED Provider: Marilee Miles PA-C HPI narrative: Patient is an 89 year old assigned female at with a history of HTN, HLD, dm, CAD, CHF, asthma, GERD, DVT status post IVC filter - on Coumadin, diabetes, CVA, osteoarthritis, and hypothyroidism presenting to the emergency department today with low back pain after falling out of bed. Patient states that last night around 10pm she fell out of bed and was too weak to get up. Patient states that she is on oxygen at home but is unsure how much. Patient denies any dizziness, lightheadedness, abdominal pain, nausea, vomiting, fever, chills, blurry vision, double vision, loss of vision, chest pain, difficulty breathing, shortness of breath, night sweats, pain with urination, increased urinary frequency, increased urinary urgency, blood in her urine or stool, syncope or a near syncopal episode, bowel incontinence, bladder incontinence, or any other complaints at this time. Patient is pleasantly confused but able to answer questions. Relieving factors: none Exacerbating factors: none Associated symptoms: denies other symptoms Treatments prior to arrival: none Related Data Home Medications ?Medication ?Instructions ?Recorded ?Confirmed atorvastatin 20 mg tablet 20 mg PO BEDTIME 05/21/20 blood sugar diagnostic #10 ea 05/21/20 03/22/24 cholecalciferol (vitamin D3) 50 50 mcg PO DAILY 10/11/24 mcg (2,000 unit) tablet fluticasone 500 mcg-salmeterol 50 1 inh inhalation BID 05/21/20 10/11/24 mcg/dose blistr powdr for inhalation (Wixela Inhub) fluticasone propionate 50 2 spray intranasal DAILY 10/11/24 mcg/actuation nasal spray,suspension lancets #100 ea 05/21/20 03/22/24 levothyroxine 100 mcg tablet 100 mcg PO DAILY@0600 10/11/24 omeprazole 20 mg capsule,delayed 20 mg PO BID@0630,163 0 05/21/20 10/11/24 release pen needle, diabetic 32 gauge x #50 ea 05/21/20 sertraline 50 mg tablet 50 mg PO DAILY 05/21/2009/28 metoprolol tartrate 25 mg tablet 12.5 mg PO BID 10/11/24 nebulizers (Sidestream mis) #1 ea 05/14/21 03/22/24 multivitamin-iron sulfate 15 1 tab PO DAILY 12/15/21 0 10/11/24 mg-folic acid 400 mcg tablet (Tab-A-Judith Multivitamin w-iron) insulin lispro 100 unit/mL See Protocol subcut TIDAC 1 08/26/21 10/11/24 subcutaneous pen (Humalog KwikPen (U-100) Insulin) metformin 500 mg tablet,extended 500 mg PO BIDWM 09/2010/11/24 release 24 hr docusate sodium 100 mg capsule 100 mg PO BID 04/19/23 10/11/24 acetaminophen 650 mg 650 mg PO Q8H PRN Pain/Fever 02/09/24 10/11/24 tablet,extended release ciclopirox 0.77 % topical cream 1 appl topical BID 10/11/24 furosemide 20 mg tablet 60 mg PO DAILY 09/16/2409/28 insulin glargine 100 unit/mL (3 26 unit subcut DAILY 0 09/16/24 10/11/24 mL) subcutaneous pen (Lantus Solostar U-100 Insulin) loratadine 10 mg tablet 10 mg PO DAILY PRN Allergy S ymptoms 09/16/24 10/11/24 semaglutide 0.25 mg or 0.5 mg (2 0.5 mg subcut FR 08/3110/11/24 mg/3 mL) subcutaneous pen injector (Ozempic) solifenacin 10 mg tablet 10 mg PO DAILY 09/16/2409/28 warfarin 4 mg tablet 2 mg PO MO@1800 09/16/24 warfarin 4 mg tablet 4 mg PO SUTUWETHFRSA@1800 10/11/24 cetirizine 10 mg tablet 5 mg PO DAILY 02/13/25 Previous Rx's ?Medication ?Instructions ?Recorded guaifenesin 600 mg tablet, 600 mg PO BID #14 tabs 09/29 11/22 extended release 12 hr (Mucinex) polyethylene glycol 3350 17 gram 17 g PO DAILY #7 ea 0 10/21/24 oral powder packet bisacodyl 5 mg tablet,delayed 10 mg (2 x 5 mg) PO BEDT LATIA 2 days 10/24/24 release (Dulcolax (bisacodyl)) #4 tabs peg 3350-electrolytes 236 240 ml PO Q10M 1 day #4,000 mL 12/17/24 gram-22.74 gram-6.74 gram-5.86 gram solution (Golytely) Allergies Allergy/AdvReac Type Severity Reaction Status Date / Time shellfish derived Allergy Severe Hives Verified 02/13/25 09:14 aspirin (Aspirin) Allergy Mild Gastrointestinal Verified 02/13/25 09:14 Upset ibuprofen Allergy Unknown Unknown Verified 02/13/25 09:14 oxycodone (From PERCOCET) Allergy Unknown PALPITATION Verified 02/13/25 09:14 S Robitussin Cold Cough+ Chest Allergy Intermediate hives Uncoded 10/10/24 20:41 SEAFOOD Allergy Intermediate hives Uncoded 10/10/24 20:41 Review of Systems 2 Constitutional: Constitutional: Reports no additional constitutional complaints, Denies chills, Denies fever(s) and Denies night sweats Eyes: Eyes: Reports no additional eye complaints, Denies blurry vision, Denies change in vision, Denies diplopia, Denies eye discharge, Denies loss of vision and Denies eye pain ENT: Denies dizziness Cardiovascular: Cardiovascular: Reports no additional cardiovascular complaints, Denies chest pain, Denies lightheadedness, Denies Loss of Consciousness and Denies dyspnea Respiratory: Respiratory: Reports no additional respiratory complaints and Denies dyspnea Gastrointestinal: Gastrointestinal: Reports no additional gastrointestinal complaints, Denies abdominal pain, Denies melena, Denies hematochezia, Denies change in bowel habits and Denies change in stool character Genitourinary: Genitourinary: Denies hematuria, Denies urinary frequency, Denies dysuria, Denies urinary incontinence, Denies urinary hesitancy and Denies urinary urgency Musculoskeletal: Musculoskeletal: Reports no additional musculoskeletal complaints, Reports back pain, Denies numbness and Denies tingling Neurologic: Denies dizziness, Denies loss of vision, Denies numbness and Denies tingling Psychiatric: Psychiatric: Reports no additional psychiatric complaints Endocrine: Endocrine: Reports no additional endocrine complaints Hematologic/Lymphatic: Hematologic/Lymphatic: Reports no additional hematologic/lymphatic complaints Allergic/Immunologic: Allergic/Immunologic: Reports no additional allergic/immunologic complaints [facility] Past Medical History Attestation statement: The following information was validated with the patient. Source: old records reviewed and nursing notes reviewed Medical History Heart block Hypertension CHF (congestive heart failure) Pneumonia Multiple falls Acute on chronic respiratory failure with hypoxemia Weakness Urgency incontinence Menopause Well woman exam Current use of anticoagulant therapy Stenosis of carotid artery Diabetes type 2, controlled Sepsis Gastroenteritis Hypoxia Pneumonia Urinary incontinence Obesity due to excess calories Type 2 diabetes mellitus with diabetic polyneuropathy Senile cataract of left eye Essential hypertension Hyperlipemia Paroxysmal A-fib Anxiety disorder Hypothyroidism Coronary artery disease History of cerebrovascular accident Osteoarthritis Osteopenia Deep vein thrombosis Hearing loss Surgical History H/O colonoscopy H/O breast surgery S/P IVC filter History of bilateral tubal ligation Family History Family History Father Heart disease CVD (cardiovascular disease) Mother Diabetes Social History Social History Household Members: Family Housing: Apartment Do you presently have visiting nurse or other home services: Yes Alcohol intake: never Patient Tobacco Use Status: Former Tobacco user Tobacco use type: Cigarette Advance Directives: Yes Advance Directives on File: Yes Advance Directives Date on File: 07/01/22 service: No Current occupational status: unemployed Sexual orientation: Straight/Heterosexual Gender identity: Female Physical Exam ED Vital Signs: Vital Signs - 24 hr 02/13/25 09:11 02/13/25 11:24 Temperature 98.3 F 98.0 F Pulse Rate 88 81 Respiratory Rate 18 19 Blood Pressure 123/50 L 123/56 L Pulse Oximetry 96 97 Oxygen Delivery Method Nasal Cannula Room Air BMI result Body Mass Index 36.0 Const General: cooperative, no acute distress, alert and awake Nutritional Appearance: well nourished Orientation/consciousness: oriented to person and oriented to place HENMT Head: Yes normal to inspection and Yes atraumatic Ears: hearing grossly normal bilaterally and external ears normal General nose exam: Normal external nose present, no nasal discharge noted and no epistaxis Face and sinus: Yes normal facial exam, No abrasion and No laceration Mouth: Normal oral and palatal mucosa present, no drooling and no muffled voice Eyes General: appearance normal, both eyes and all related structures Periorbital: periorbital findings normal Eyelids: Yes eyelids normal Conjunctivae: conjunctivae normal Pupils: Equal, round and reactive pupils present EOM: EOMs intact bilaterally Neck Neck: Yes normal visual inspection, Yes full ROM and Yes no lymphadenopathy Resp Effort & Inspection: normal respiratory effort and able to speak in complete sentences Neuro Other: pleasantly confused General: oriented to person, oriented to place, moves all extremities and CN's II-XI intact bilaterally Cranial nerves: Yes Equal, round and reactive pupils present Cognition (Neuro): normal cognition Extrem General: Yes normal to inspection, Yes full ROM and Yes capillary refill normal Psych Appearance: grossly normal Mental Status: mental status grossly normal Affect: normal affect Attitude: cooperative Thought process: Normal thought process present Thought content: Normal thought content present Insight: Good insight present (Psych) Medications Administered Discontinued Medications Generic Name Dose Route Start Last Admin Trade Name Freq PRN Reason Stop Dose Admin Ceftriaxone Sodium 1 gm 02/13/25 10:26 02/13/25 10:55 Ceftriaxone Sodium 1 Gm Vial IVPUSH 02/13/25 10:27 1 gm ONCE ONE Administration Magnesium Sulfate 2 gm in 50 mls @ 25 mls/hr 02/13/25 09:31 02/13/25 12:51 Magnesium Sulfate/H2o IV 02/13/25 11:30 Infused ONCE ONE Infusion Potassium Chloride 10 meq in 100 mls @ 100 mls/hr 02/13/25 10:15 02/13/25 11:57 Potassium Chloride/H20 IV 02/13/25 12:14 50 mls/hr Q1H GER Administration Medical Decision Making Medical Decision Making MDM Narrative: Patient is an 89 year old assigned female at with a history of HTN, HLD, DM, CAD, CHF, asthma, GERD, DVT status post IVC filter - on Coumadin, diabetes, CVA, osteoarthritis, and hypothyroidism presenting to the emergency department today with low back pain after falling out of bed. Patient's physical exam showed a pleasantly confused woman. Patient's blood work showed a WBC count of 14.1, potassium of 3.1, magnesium of 1.4. Patient's urine showed evidence of an acute UTI. Patient's EKG showed QT prolongation. Patient's CT head, c-spine, chest, and lumbar spine showed no acute process. Patient is on 3 liters of oxygen at baseline. Patient's clinical presentation is most consistent with confusion secondary to UTI, hypomagnesemia, hypokalemia, prolonged QT segment. Patient's clinical presentation is not consistent with sepsis (@1220). Patient was given IV Ceftriaxone, potassium, and magnesium. I spoke with the hospitalist team who agreed to admission. I explained my physical exam findings as well as all test results to the patient. I answered all questions asked by the patient. Patient verbalized agreement and understanding with this treatment plan and admission. Differential Diagnosis Differential Diagnoses: The differential diagnosis associated with the presentation includes Urinary tract infection Fall Hypomagnesemia Hypokalemia Admission/Observation Consideration of admission/observation: Escalation of care including admission/observation considered Patient admitted as noted in the MDM Rationale portion of this note. Consult Healthcare Provider Management of the patient was discussed with: Hospitalist (agreed to admission as noted in the MDM Rationale portion of this note. ) Lab Data [facility] Lab Attestation statement: I reviewed the patient's lab results. My interpretation of these results are in the MDM Rationale portion of this note. 02/13/25 09:19 02/13/25 09:19 Labs: Lab Results 02/13/25 02/13/25 02/13/25 Range/Units 09:19 09:25 10:00 WBC 14.1 H (4.8-10.8) X10*3/uL RBC 3.93 L (4.20-5.50) X10*6/uL Hgb 12.1 (12.0-16.0) g/dl Hct 35.6 L (37.0-47.0) % MCV 90.6 (80.0-98.0) fL MCH 30.8 (27.0-33.0) pg MCHC 34.0 (31.0-35.0) g/dl RDW 13.9 (11.0-16.0) % Plt Count 136 L D (160-400) X10*3/uL MPV 11.2 (9.4-12.3) fL Immature Gran % (Auto) 0.6 H (0.0-0.4) % Neut % (Auto) 90.0 H (45-73) % Lymph % (Auto) 2.9 L (20-40) % [place] % (Auto) 6.3 (2-11) % Eos % (Auto) 0.0 (0-4) % Baso % (Auto) 0.2 (0-2) % Lymph # (Auto) 0.4 L (1.2-4.9) X10*3/uL [place] # (Auto) 0.9 (0.1-1.2) X10*3/uL Eos # (Auto) 0.0 (0.0-0.4) X10*3/uL Baso # (Auto) 0.0 (0.0-0.2) X10*3/uL Abs Immat Gran (auto) 0.08 H (0.00-0.03) X10*3/uL Absolute Neuts (auto) 12.7 H (2.0-8.3) x10*3/uL Absolute Nucleated RBC 0.000 (0.0-0.012) X10*3/uL Nucleated RBC % (auto) 0.0 (0.0-0.2) /100WBC PT 33.1 H (10.9-12.4) SEC INR 2.9 H (0.9-1.1) VBG pH 7.49 H (7.32-7.43) VBG pCO2 36 mmHg VBG pO2 88 mmHg VBG HCO3 28 H (22-26) mmol/L VBG O2 Saturation 99.0 % VBG Base Excess 4.9 mmol/L Sodium 140 (135-145) mmol/L Potassium 3.1 L (3.3-5.1) mmol/L Chloride 103 (96-108) mmol/L Carbon Dioxide 27 (22-29) mmol/L Anion Gap 13 (12-20) BUN 16 (9-16) mg/dL Creatinine 0.95 (0.5-1.4) mg/dL Estim Creat Clear Calc 44.9 Estimated GFR 55 Random Glucose 274 H (60-115) mg/dL Calcium 9.5 (8.4-10.2) mg/dL Magnesium 1.4 L* (1.6-2.6) mg/dL Total Bilirubin 0.9 (0.0-1.0) mg/dL AST 25 (5-31) U/L ALT 14 (0-31) U/L Alkaline Phosphatase 114 (39-117) U/L Total Creatine Kinase 241 H (26-140) U/L Total Protein 7.7 (6.5-8.0) g/dL Albumin 4.0 (3.5-5.0) g/dL Urine Color Yellow Urine Appearance Cloudy Urine pH 6.5 (5.0-9.0) Ur Specific [place] 1.015 (1.005-1.025) Urine Protein 300 (3+) H (Neg-Trace) mg/dL Urine Glucose (UA) 100 H (Negative) mg/dL Urine Ketones Negative (Negative) mg/dL Urine Blood Large (3+) H (Negative) Urine Nitrite Negative (Negative) Ur Leukocyte Esterase Large (3+) H (Negative) Urine RBC 6-10 H (0-2) /HPF Urine WBC >50 H (0-5) /HPF Urine WBC Clumps Present Ur Squamous Epith Cells 0-2 (0-2) /HPF Urine Bacteria 4+ (None Seen) Hyaline Casts 3-5 (0-2) /LPF Urine Yeast Present Influenza Type A (PCR) NEGATIVE (Negative) Influenza Type B (PCR) NEGATIVE (Negative) RSV RNA Qual (PCR) NEGATIVE (Negative) SARS-CoV-2 RNA (RT-PCR) NEGATIVE (Negative) Independent Interpretation I performed an independent interpretation of an: EKG and CT Scan Interpretation: My interpretation is in agreement with the radiologist's impression of these imaging studies. L Report Number: [id number]: Total DLP = 404.00 mGy-cm EXAMINATION: CT CERVICAL SPINE WITHOUT CONTRAST CLINICAL INFORMATION: Fall, head strike, neck pain. COMPARISON: Numerous priors, most recently 04/02/2024. TECHNIQUE: Spiral CT imaging of the cervical spine performed in axial plane without contrast. Multiplanar reformatted images were constructed from the axial data set. This CT examination was performed using dose optimization techniques as appropriate, variously including the following: *Automated exposure control *Adjustment of mA and/or kV according to patient size (this includes techniques or standardized protocols for targeted exams where dose is matched to indication/reason for exam; i.e. extremities or head) *Use of iterative reconstruction technique FINDINGS: CORONAL ALIGNMENT: -There is a mild right convex scoliosis. SAGITTAL ALIGNMENT: -Mild straightening of the normal lordosis. -There is no evidence of traumatic subluxation. -There is a 2 mm degenerative appearing retrolisthesis C5 on C6. C1-C2 AND CRANIOCERVICAL JUNCTION: -Intact and normally aligned. There are moderate degenerative changes in the atlantoaxial joint. VERTEBRAL BODIES AND FACETS: -No fractures, compression deformity, or suspicious bone lesions. No traumatic malalignment. -Normal facet alignment. There are mild degenerative multilevel facet changes bilaterally. DISCS: -There is moderate disc degeneration at C5-6. There is otherwise mild disc degeneration at the above levels. CENTRAL CANAL: -No evidence of high-grade central canal narrowing or large disc herniation allowing for modality limitations. -There is mild to moderate stenosis at C5-6 and C6-7 secondary to dorsal disc osteophytic ridges. PREVERTEBRAL AND PARAVERTEBRAL SOFT TISSUES: -No prevertebral or paravertebral soft tissue edema or abnormal fluid collection. -Normal-appearing thyroid. -No mass or abnormal lymphadenopathy within the neck. LUNG APICES: -Limited by respiratory motion artifact. Grossly clear bilaterally. CT/CT cervical spine wo IV con IMPRESSION: 1. No CT evidence of acute cervical spine fracture or injury. 2. Stable degenerative spondylosis most notable at C5-6 and C6-7. Electronically signed by: Aakash Pisano MD 02/13/2025 11:23 AM EDT Dictated By: Aakash Pisano MD Signed By: Electronically signed by Aakash Pisano MD 02/13/25 1123 Report Number: [id number]: Total DLP = 1284.00 mGy-cm EXAMINATION: CT LUMBAR SPINE WITHOUT CONTRAST CLINICAL INFORMATION: Trauma, fall, pain DLP: 1284 mGY*cm COMPARISON: CT September 16, 2024 TECHNIQUE: Axial imaging was performed from mid T11 through the lower sacrum coccygeal region without IV contrast. Coronal and sagittal reformatted images were generated from the original axial data set. This CT examination was performed using dose optimization techniques as appropriate, variously including the following: *Automated exposure control *Adjustment of mA and/or kV according to patient size (this includes techniques or standardized protocols for targeted exams where dose is matched to indication/reason for exam; i.e. extremities or head) *Use of iterative reconstruction technique FINDINGS: There is a simple renal cysts are present in both kidneys. There is mild to moderate fatty atrophy of the paraspinal musculature. There is 2 mm to right kidney ossification likely representing a stone. There are 5 nonrib-bearing lumbar segments. There is moderate concavity involving superior L2 that is unchanged. Stippled calcifications within the discs is likely related to pyrophosphate deposition. There is abutment with sclerosis of the spinous processes at L2-3, L3-4, and L4-5. There are mild degenerative changes in the right SI joint. CT/CT lumbar spine wo IV con IMPRESSION: Stable chronic moderate superior endplate fracture of L2. CPPD arthropathy. Spinous process abutment at L2-3, L3-4, and L4-5. This can be a source of back pain. Electronically signed by: Magdy Lloyd MD 02/13/2025 11:28 AM EDT Dictated By: Magdy Lloyd MD Signed By: Electronically signed by Magdy Lloyd MD 02/13/25 1128 Report Number: [id number]: Total DLP = 1095.00 mGy-cm EXAMINATION: CT HEAD WITHOUT CONTRAST CLINICAL INFORMATION: Head trauma, fall COMPARISON: 04/02/2024 CT and MRI January 19, 2022 TECHNIQUE: Contiguous axial imaging was performed from the skull base to vertex without intravenous administration of contrast. This CT examination was performed using dose optimization techniques as appropriate, variously including the following: *Automated exposure control *Adjustment of mA and/or kV according to patient size (this includes techniques or standardized protocols for targeted exams where dose is matched to indication/reason for exam; i.e. extremities or head) *Use of iterative reconstruction technique DLP: 1095 mGY*cm FINDINGS: There is no acute ischemic change. There is no intracranial hemorrhage. There is no mass-effect or midline shift. There is mild to moderate generalized atrophy. Basal cisterns and ventricles are within normal limits for age/cerebral volume. Orbits are symmetrical and unremarkable. Paranasal sinuses and mastoid air cells are pneumatized. 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 CT/CT head/brain wo IV con IMPRESSION: No acute intracranial abnormality. Generalized atrophy. 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 Electronically signed by: Magdy Lloyd MD 02/13/2025 11:39 AM EDT Dictated By: Magdy Lloyd MD Signed By: Electronically signed by Magdy Lloyd MD 02/13/25 1139 Report Number: [id number]: Total DLP = 288.00 mGy-cm EXAMINATION: CT CHEST WITHOUT IV CONTRAST INDICATION: SOB, hypoxia, fall COMPARISON: Comparison is made with the prior examination dated 07/22/2023. TECHNIQUE: Helical CT scan of the chest was performed without intravenous contrast. Coronal and sagittal reformatted images were generated and reviewed. This CT exam was performed with one or more of the following dose reduction techniques: automated exposure control, adjustment of the mA and/or kV according to patient size, use of iterative reconstruction technique. DLP: 289 mGy-cm CHEST: THYROID: The thyroid is unremarkable. LUNGS: There are multifocal linear opacities compatible with scarring. There are no focal airspace opacities. MEDIASTINUM: There is no mediastinal lymphadenopathy. SHO: Evaluation of the hilar regions is limited by lack of intravenous contrast material. CARDIOVASCULATURE: The heart is normal in size. There is no pericardial effusion. The thoracic aorta is normal in caliber. 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 PLEURA: There is no pleural effusion. No pneumothorax. MAIN AIRWAYS: The mainstem bronchi and proximal branches are patent. AXILLA: There is no axillary lymphadenopathy. BONES AND SOFT TISSUES: There is degenerative disc disease of the spine. UPPER ABDOMEN: The visualized portions of the liver and spleen have an unremarkable unenhanced appearance. CT/CT chest wo IV con IMPRESSION: No evidence of traumatic injury to the chest. No focal airspace opacity is identified. Electronically signed by: Tyler Mendez MD 02/13/2025 11:22 AM EDT Dictated By: Tyler Mendez MD Signed By: Electronically signed by Tyler Mendez MD 02/13/25 1122 I independently interpreted this EKG and am in agreement with the below findings: Vent. Rate: 90 BPM Atrial Rate: * BPM P-R Int: * ms QRS Dur: 94 ms QT Int: 448 ms P-R-T Axes: * 43 117 degrees QTcB Int: 548 ms Accelerated Junctional rhythm with retrograde conduction Nonspecific ST and T wave abnormality Prolonged QT When compared with ECG of 17-Oct-2024 12:09, Junctional rhythm has replaced Atrial flutter Vent. rate has increased by [address] now depressed in Lateral leads QT has lengthened DD/ 0923 Radiology Impression Discussion of test interpretation with radiology: I have reviewed the radiologist's reading. Independent Historian Clinical information obtained from an independent historian. History obtained from or confirmed by: EMS (EMS provided additional history and confirmed the history provided by the patient.) Critical Care Time Critical Care Time Critical Care Time: Yes Total Critical Care Time: 36 Attestation: I spent 36 minutes of Critical Care Time with this patient. This does not include time spent on separately reported billable procedures. Discharge Plan Discharge Clinical Impression: Hypomagnesemia, Hypokalemia, Urinary tract infection, Fall, Prolonged QT interval Patient Disposition: Admitted As Inpatient
--- NOTE | 2025-02-13 08:57 | ECG_ITS ---
Test Reason : FALL Blood Pressure : */* mmHG Vent. Rate : 90 BPM Atrial Rate : * BPM P-R Int : * ms QRS Dur : 94 ms QT Int : 448 ms P-R-T Axes : * 43 117 degrees QTcB Int : 548 ms Sinus vs long DE interval? Nonspecific ST and T wave abnormality Prolonged QT Abnormal ECG When compared with ECG of 17-Oct-2024 12:09, Vent. rate has increased by 42 bpm Rhythm change Referred By: Marilee Miles Electronically Signed By: MANE MULLIGAN
[2025-02-13 09:27] LABS: MANUAL DIFF FLAG NO
[2025-02-13 09:29] LABS: Venous Blood Gas Refer to POC result
[2025-02-13 09:29] LABS: VBG HCO3 28 mmol/L (22-26); VBG O2 % Saturation 99.0 %
[2025-02-13 09:31] LABS: Hematocrit 35.6 % (37.0-47.0); Hemoglobin 12.1 g/dl (12.0-16.0); Imm Gran Abs Auto 0.08 X10*3/uL (0.00-0.03); Imm Gran Pct Auto 0.6 % (0.0-0.4); Lymphocytes Absolute Auto 0.4 X10*3/uL (1.2-4.9); Mean Corpuscular HGB Conc 34.0 g/dl (31.0-35.0); Mean Corpuscular Hemoglobin 30.8 pg (27.0-33.0); Mean Corpuscular Volume 90.6 fL (80.0-98.0); NRBC Abs Auto 0.000 X10*3/uL (0.0-0.012); NRBC Pct Auto 0.0 /100WBC (0.0-0.2); Platelet Count 136 X10*3/uL (160-400); Red Blood Count 3.93 X10*6/uL (4.20-5.50); White Blood Count 14.1 X10*3/uL (4.8-10.8)
[2025-02-13 09:42] LABS: INTERNATIONAL NORM RATIO 2.9 (0.9-1.1); Prothrombin Time 33.1 SEC (10.9-12.4)
--- NOTE | 2025-02-13 10:00 | PC.NURSE ---
Pt straight catheterized for urine sample, tolerated well. Pt to CT Scan at this time.
[2025-02-13 10:08] LABS: Appearance Urine Cloudy; Glucose Urine UA 100 mg/dL (Negative); PH 6.5 (5.0-9.0); Specific Gravity - Urine 1.015 (1.005-1.025); UMIC TRIGGER UACC YES
[2025-02-13 10:10] LABS: Alanine Aminotransferase 14 U/L (0-31); Albumin Level 4.0 g/dL (3.5-5.0); Alkaline Phosphatase 114 U/L (39-117); Anion Gap 13 (12-20); Aspartate Amino Transferase 25 U/L (5-31); Blood Urea Nitrogen 16 mg/dL (9-16); Calcium 9.5 mg/dL (8.4-10.2); Carbon Dioxide 27 mmol/L (22-29); Chloride 103 mmol/L (96-108); Creatinine Clr Calc Pharmacy 44.9; Estimated Glomerular Filt Rate 55; Magnesium 1.4 mg/dL (1.6-2.6); Potassium 3.1 mmol/L (3.3-5.1); Sodium 140 mmol/L (135-145); Total Protein 7.7 g/dL (6.5-8.0)
[2025-02-13 10:15] LABS: Resp Syncy Virus RNA Qual PCR NEGATIVE (Negative); SARS COV2 PCR INHOUSE NEGATIVE (Negative)
[2025-02-13 10:18] LABS: UACC Culture Trigger YES
--- NOTE | 2025-02-13 10:33 | PC.NURSE ---
Per Marilee MIRANDA, blood cultures not needed prior to IV antibiotic. Pt still at CT at this time.
[2025-02-13] MEDS: Magnesium Sulfate/H2O 2 GM/50 ML PIGGYBACK IV (10:55)
[2025-02-13] MEDS: Potassium Chloride/H20 10 MEQ/100 ML PIGGYBACK 100 MEQ IV (10:55)
--- OUTSIDE RECORDS SUMMARY | 2025-02-13 11:14 | XMS_ITS | Clinical Summary ---
Author Organization [employer] Address [address] [place] [address] [address] [place] [address] Care Team Providers Care Sole Buffer Name Role Phone Valeri Lerner DO Primary Care Provider Allergies Active Allergy Reactions Criticality Noted Date [...] BLOOD SUGAR TWICE DAILY 100 each 11 3 Active Continuous Blood Gluc Compliance Tester (FreeStyle Jason 2 [place]) device Scan sensor every 8 hours 1 each 4 Active UltiGuard SafePack Pen Needle 32G X 4 MM misc USE DIRECTED WITH LANTUS AND HUMALOG 200 each 5 4 Active Multiple Vitamins-Iron (Tab-A-Judith/Iron) tablet TAKE 1 TABLET BY MOUTH EVERY MORNING WITH FOOD 90 tablet 3 4 Active furosemide (Lasix) 20 MG tablet Take 3 tablets by mouth in the morning. 4 Active solifenacin (VESIcare) 10 MG tablet Take 1 tablet (10 mg) by mouth Once per day. Swallow tablet whole; do not crush, chew, or split. 30 tablet 11 4 025 Active fluticasone (Flonase) 50 MCG/ACT nasal sprayIndications:S easonal allergic rhinitis, unspecified trigger Administer 2 sprays into each nostril Once per day. Shake gently. Before first use, prime pump. After use, clean tip and replace cap. 16 g 4 Active Alcohol Swabs (Alcohol Prep) 70 % pads USE THREE TO FOUR TIMES DAILY 100 each 4 Active cetirizine (ZyrTEC) 10 MG tablet Take 0.5 tablets (5 mg) by mouth Once per day. 15 tablet 4 025 Active metFORMIN XR (Glucophage-XR) 500 MG 24 hr tabletIndications: Type 2 diabetes mellitus with hyperglycemia, with long-term current use of insulin (CMS/HCC) TAKE 1 TABLET BY MOUTH TWICE DAILY IN THE MORNING AND IN THE EVENING WITH FOOD 60 tablet 11 5 Active sertraline (Zoloft) 50 MG tabletIndications: Depression, unspecified depression type TAKE 1 TABLET BY MOUTH EVERY MORNING 30 tablet 5 5 Active cholecalciferol VITAMIN D (Vitamin D-3) 50 MCG (1999 UT) tablet TAKE 1 TABLET BY MOUTH EVERY MORNING 90 tablet 1 5 Active atorvastatin (Lipitor) 20 MG tabletIndications: Other hyperlipidemia TAKE 1 TABLET BY MOUTH AT BEDTIME 90 tablet 3 5 Active docusate sodium (Colace) 100 MG capsuleIndications :Chronic constipation TAKE 1 CAPSULE BY MOUTH TWICE DAILY 180 capsule 3 5 Active ciclopirox (Loprox) 0.77 % cream APPLY TOPICALLY TO SKIN OF FEET AND TOES TWICE DAILY DIRECTED Active warfarin (Coumadin) 4 MG tabletIndications: Paroxysmal atrial fibrillation (CMS/HCC) TAKE 1 TO 2 TABLETS DAILY DIRECTED PER COUMADIN CLINIC 60 tablet 2 5 Active white petrolatum (Vaseline) gelIndications:Acu te cystitis with hematuria Apply topically if needed for dry skin or irritation. 500 g 5 Active omeprazole (PriLOSEC) [address] capsule TAKE 1 CAPSULE BY MOUTH TWICE DAILY IN THE MORNING AND IN THE EVENING WITH FOOD 180 capsule 1 Active levothyroxine (Synthroid, Levoxyl) 100 MCG tablet TAKE 1 TABLET BY MOUTH EVERY MORNING ON AN EMPTY STOMACH 90 tablet 1 Active Fluticasone-Salmet nicole 500-50 MCG/ACT aerosol powder INHALE 1 PUFF BY MOUTH TWICE DAILY. RINSE MOUTH AFTER USING. 60 each 5 Active Continuous Glucose Sensor (FreeStyle Jason 2 Plus Sensor) misc 1 each every 8 (eight) hours. Apply 1 sensor every 15 days as directed for CGM. Continue to scan Q8H, at minimum, to capture 24 hr BG data. 2 each 5 Active insulin glargine (Lantus SoloStar) 100 UNIT/ML penIndications:Typ e 2 diabetes mellitus with hyperglycemia, with long-term current use of insulin ([facility]) Inject 26 Units under the skin in the morning. 15 mL 5 Active Semaglutide,0.25 or 0.5MG/DOS, (Ozempic, 0.25 or 0.5 MG/DOSE,) 2 MG/3ML solution pen-injectorIndica tions:Type 2 diabetes mellitus with hyperglycemia, with long-term current use of insulin ([facility]) Inject 0.5 mg under the skin 1 (one) time per week. 3 mL 5 026 Active metoprolol tartrate (Lopressor) 25 MG tablet TAKE 1/2 TABLET BY MOUTH TWICE DAILY IN THE MORNING AND EVENING 90 tablet 1 5 Active Active Problems Problem Noted Date Diagnosed Date [...] benefit from more structured support, daughter working night time babysitter, she and brother are primary care givers, nephew was assisting with medications and home care but no longer working as director of agriculture, 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 Imaging Account Manager list provided for daughter, Referral to vna [...] 05/21/2015 Overview (01/26/2024): Seen by Dr Bradshaw, [facility]. Assessment & Plan (01/26/2024 2:51 PM [...] previous one of 9 on admission to [facility]. No change in meds. FU w PCP [...] 1:07 PM EST): Worsened after She fell WOODEN BOAT BUILDER on 06/26 Continue PT at home. Tylenol [...] Encounters Date Type Department Care Team Description 02/11/2025 Anticoagulation - Warfarin Visit [facility] [address] [place] [address] Michaela Rollins, RN Paroxysmal atrial fibrillation (CMS/HCC) 01/28/2025 Anticoagulation - Warfarin Visit [facility] [address], [place] [address] Michaela Rollins RN Paroxysmal atrial fibrillation ([facility]) 01/14/2025 Anticoagulation - Warfarin Visit [facility] [address], [place] [address] Michaela Rollins RN Paroxysmal atrial fibrillation ([facility]) 01/14/2025 Telephone [facility] [address], [place] [address] Valeri Lerner, DO Results 01/13/2025 Telephone [facility] [address], [place] [address] Valeri Lerner, DO Results 01/06/2025 Orders Only [facility] External Provider, [facility] 01/06/2025 Refill [facility] [address], [place] [address] Valeri Lerner, DO 01/02/2025 Anticoagulation - Warfarin Visit [facility] [address], [place] [address] Michaela Rollins RN Paroxysmal atrial fibrillation ([facility]) 12/24/2024 Telephone [facility] [address], [place] [address] Valeri Lerner, DO 12/20/2024 Travel 12/20/2024 Refill [facility] [address], [place] [address] Valeri Lerner, DO 12/17/2024 Anticoagulation - Warfarin Visit [facility] [address], [place] [address] Michaela Rollins RN Paroxysmal atrial fibrillation ([facility]) 12/11/2024 Telephone [facility] [address], [place] [address] Valeri Lerner, DO 12/03/2024 Anticoagulation - Warfarin Visit [facility] [address], [place] [address] Michaela Rollins RN Paroxysmal atrial fibrillation ([facility]) 12/02/2024 Refill [facility] [address], [place] [address] Valeri Lerner DO 11/27/2024 Telephone [facility] [address] [place] [address] Laquita Matos MD 11/26/2024 Anticoagulation - Warfarin Visit [address] [address] Michaela Rollins RN Paroxysmal atrial fibrillation ([facility]/HCC) 11/22/2024 1:00 PM EDT Office Visit [address] [address] Laquita Matos MD Acute respiratory failure with hypoxia ([facility]) (Primary Dx); Type 2 diabetes mellitus with hyperglycemia, with long-term current use of insulin ([facility]); Dietary counseling; Exercise counseling; Overweight; Acute congestive heart failure, unspecified heart failure type (CMS/HCC); Urinary incontinence, unspecified type; Multiple falls; Movement disorder; Physical deconditioning; Acute cystitis with hematuria 11/22/2024 Travel 11/20/[address] [address] Valeri Lerner DO Chart Prep 11/15/2024 Anticoagulation - Warfarin Visit [address] [address] Michaela Rollins RN Paroxysmal atrial fibrillation ([facility]/HCC) from Last 3 Months Immunizations Immunization Administration Dates Next Due Hep B, adult 06/14/2024,07/02/2015,05/21/2015 Influenza High-dose Quadriva lent Preservative Free 06/07/2021 Influenza injectable quadriv alent IIV4 with preservative 08/08/2022,07/01/2016,05/21/2015 Influenza injectable quadriv alent preservative free 08/23/2023 Influenza, High Dose Seasona l, Preservative Free 04/26/2024,04/12/2019,05/21/2018,05/02 Influenza, IIV3, injectable 04/28/2014, 1 Influenza, Split (incl. carri fied surface antigen) 04/17/2013,06/12/2012 Moderna Covid-19 Vaccine 12+ 11/06/2020,03/12/20 21 Pfizer Covid-19 Vaccine 12+ 04/26/2024,,08/23/2023 Pneumococcal [...] 68 11/22/2024 1:35 PM EDT Temperature 36.8 C (98.2 F) 07/15/2024 11:21 AM EST Respiratory Rate 16 11/22/2024 1:35 [...] Description 05/16/2025 1:30 PM EDT Office Visit [facility] [address] [place] [address] Tod, Ai, OD [address] [place] [address] Health Maintenance Due Date Last Done Comments Dental Oral Exam 1935 Dental Prophylaxis 1935 Dental X-Ray: Bitewings 1935 Dental X-Ray: Full Mouth 1935 Alcohol/Substance Use Screening 1947 Diabetes: Urine Protein Screening 08/31/2024 08/31/2023, 01/19/2022, 05/19/2021, Additional history exists Lipid Panel 08/31/2024 08/31/2023 COVID-19 Vaccine ( season) 2024 04/26/2024, 12/26/2023, 08/23/2023, Additional history exists SDOH Screening 11/20/2024 11/21/2023 Diabetes: Hemoglobin A1C 02/21/2025 025, 10/30/2024, 07/15/2024, Additional history exists Influenza Vaccine (#1) 2025 , 08/23/2023, 08/08/2022, Additional history exists Eye Exam 06/24/2025 06/24/2024, 06/01, 06/24/2024, Additional history exists Depression Screening 07/15/2025 07/15/2024, 07/15/20 Tobacco Screening 11/25/2025 11/25/2024 Diabetes: Foot Exam 01/10/2026 01/10/2025 DTaP/Tdap/Td Vaccines (3 - Td or Tdap) 12/25/2033 12/26/2023, 08/06/2013, 07/23/2003 Pneumococcal Vaccine: 50+ Years Completed 12/26/2023, 07/02/2015, 11/04/2013 RSV Patients and Patients Aged 60 years or older Completed 03/07/2024 Zoster Vaccines Completed 03/07/2024, 02/2021, 07/02/2015 Hepatitis B Vaccines Completed 06/14/2024, 07/02/2015, 05/21/2015 [...] sugar as directed Result Component No Batsheva Gomez, PharmD Note: Resume CGM. Ensure sensor is scanned at least once every 8 hours to capture 24H data. Check BG manually, as directed. Hemoglobin A1c < 8 Result Component 7.1( 1:42 PM EDT) No Puia, Batsheva, PharmD Procedures Procedure Name Priority Date/Time Associated Diagnosis Comments PROTHROMBIN TIME-INR Routine 02/11/2025 PROTHROMBIN TIME-INR Routine 01/28/2025 PROTHROMBIN TIME-INR Routine 01/14/2025 AMB REFERRAL TO PODIATRY Routine 01/10/2025 Type 2 diabetes mellitus with hyperglycemia, with long-term current use of insulin ([facility]) CT COLONOGRAPHY SCREENING Routine 01/06/2025 9:32 AM EDT PROTHROMBIN TIME-INR Routine 12/31/2024 PROTHROMBIN TIME-INR Routine 12/17/2024 PROTHROMBIN TIME-INR Routine 12/03/2024 PROTHROMBIN TIME-INR Routine 11/26/2024 POCT URINALYSIS DIPSTICK Routine 11/22/2024 2:18 PM EDT Type 2 diabetes mellitus with hyperglycemia, with long-term current use of insulin ([facility]) POCT GLYCATED HEMOGLOBIN, TOTAL Routine 11/22/2024 1:42 PM EDT Type 2 diabetes mellitus with hyperglycemia, with long-term current use of insulin ([facility]) POCT GLUCOSE Routine 11/22/2024 1:38 PM EDT Type 2 diabetes mellitus with hyperglycemia, with long-term current use of insulin ([facility]) PROTHROMBIN TIME-INR Routine 11/15/2024 ALBUMIN, RANDOM URINE W/CREATININE Routine 08/31/2023 4:16 PM EST Type 2 diabetes mellitus with hyperglycemia, with long-term current use of insulin ([facility]) LIPID PANEL, STANDARD Routine 08/31/2023 4:11 PM EST Type 2 diabetes mellitus with hyperglycemia, with long-term current use of insulin ([facility]/HCC) from Last 3 Months or Most Recently Relevant to Health Maintenance Results * (ABNORMAL) Prothrombin Time-INR (02/11/2025) Only the most recent of8 resultswithin the time period is included. INR 2.60(A) 2.00 - 3.00 EXTERNAL LAB Protime EXTERNAL LAB Blood Venous blood specimen / Unknown 02/11/2025 Valeri Lerner DO LAB BLOOD ORDERABLES Final R esult EXTERNAL LAB * Referral to Podiatry (01/10/2025) Valeri Lerner DO OUTPATIENT REFERRAL ORDERABL ES Final Result * CT colonography screening (01/06/2025 9:32 AM EDT) Anatomical Region Laterality Modality Colon Computed Tomogra phy 01/06/2025 9:32 AM EDT Narrative 01/06/2025 2:02 PM EDT [place] [address] CT Scan Report Signed Patient: Nikky Guevara MR#: [id number] : 1935 Acct:[id number] Age/Sex: 89 / F ADM Date: 01/06/25 Loc: HO.CT Attending Dr: Fatemeh MEDLEY Ordering Physician: Fatemeh Cuadra Date of Service: 01/06/25 Procedure(s): CT colonography Accession Number(s): [id number] cc: Fatemeh Cuadra; Valeri Lerner DO Report Number: [id number]: Total DLP = 6.00 mGy-cm EXAMINATION: CT Colonography. CLINICAL INDICATION: Abnormal findings on diagnostic imaging. FINDINGS/ CT/CT colonography IMPRESSION: Following rectal insertion of a balloon inflated catheter patient was unable to hold gas. There is large amount of stool and gas in the colon. Patient was not prepped. The exam if continued would be unsuccessful, use less and hence terminated. Recommend simple enema prep prior to a fluoroscopy-guided barium enema study. Recommend schedule this exam as outpatient. Electronically signed by: Harley Collins MD 01/06/2025 01:59 PM EDT RP Dictated By: Harley Collins MD Signed By: <Electronically signed by Harley Collins MD in OV> 01/06/25 1359 DD/ 0932 TD/TT: 01/06/25 1055 Adventure Education Teacher: [facility] Procedure Note Donotuseinterpreter, Image - 01/06/[address] [place] [address] [address] Scan Report Signed Patient: Cassie Guevara#: [id number] : 1935cct:[id number] Age/Sex: 89 / FADM Date: 01/06/25 Loc: HO.CT Attending Dr: Fatemeh MEDLEY Ordering Physician: Fatemeh Cuadra Date of Service: 01/06/25 Procedure(s): CT colonography Accession Number(s): [id number] cc: Fatemeh Cuadra; Valeri Lerner DO Report Number: [id number]: Total DLP = 6.00 mGy-cm EXAMINATION: CT Colonography. CLINICAL INDICATION: Abnormal findings on diagnostic imaging. FINDINGS/ CT/CT colonography IMPRESSION: Following rectal insertion of a balloon inflated catheter patient was unable to hold gas. There is large amount of stool and gas in the colon. Patient was not prepped. The exam if continued would be unsuccessful, use less and hence terminated. Recommend simple enema prep prior to a fluoroscopy-guided barium enema study. Recommend schedule this exam as outpatient. Electronically signed by: Harley Collins MD 01/06/2025 01:59 PM EDT RP Dictated By: Harley Collins MD Signed By: <Electronically signed by Harley Collins MD in OV> 01/06/25 1359 DD/ 0932 TD/TT: 01/06/25 1055 Adventure Education Teacher: [facility] External Provider IMG CT PROCEDURES Edited Result - Final * (ABNORMAL) POCT Urinalysis (11/22/2024 2:18 PM [...] Expiration Date Urine 11/22/2024 2:18 PM EDT Result [facility] Laquita Matos MD POINT OF CARE TEST ENTER/EDIT ORDERABLES Final Result * (ABNORMAL) POCT HGB A1C (11/22/2024 1:42 PM EDT) Hemoglobin A1C 7.1(A) 4.0 - 6.0 % QC Media Lot # [id number] Lot# Expiration Date Blood 11/22/2024 1:42 PM EDT Result [facility] Laquita Matos MD POINT OF CARE TEST ENTER/EDIT ORDERABLES Final Result * (ABNORMAL) POCT Glucose (11/22/2024 1:38 PM EDT) Glucose Blood, POC 215(A) 60 - 200 mg/dL QC Media Lot # [id number] Lot# Expiration Date Blood Capillary blood specimen / Unknown 11/22/2024 1:38 PM EDT Result [facility] Laquita Matos MD POINT OF CARE TEST ENTER/EDIT ORDERABLES Final Result * (ABNORMAL) Albumin, Random Urine W/Creatinine (08/31/2023 4:16 PM EST) Creatinine, Urine 25.77 mg/dL [facility] Microalbumin Urine 31.0 mg/L [facility] Microalbum Creatinine Ratio Ur 120.2(H) <30 ug/mg cr [facility] Comment:Albumin/Creatinine R atio Reference Ranges: Normal: < 30 ug/mg creatinine Microalbuminuria: 30 - 300 ug/mg creatinineClinical Albuminuria: > 300 ug/mg creatinine Urine (Urine, Random) 08/31/2023 4:16 PM EST 08/31/2023 5:27 PM EST Valeri Lerner DO LAB URINE ORDERABLES Final R esult [facility] [address] [place] [phone] * (ABNORMAL) Lipid Panel, Standard (08/31/2023 4:11 PM EST) Triglycerides 349(H) <150 mg/dL [facility] Comment:Desirable Triglyceri de: less than 150 mg/dLBorderline High Triglyceride 150-199 mg/dLHigh Triglyceride: 200-499 mg/dLVery High Triglyceride: greater than or equal to 5OO mg/dL Cholesterol 149 <200 mg/dL [facility] Comment:Desirable Cholestero l: less than 200 mg/dLBorderline High Cholesterol: 200-239 mg/dLHigh Cholesterol: greater than 239 mg/dL LDL Cholesterol Calculated 41 <100 mg/dL [facility] Comment:Desirable LDL: less than 100 mg/dLNear Optimal/Above Optimal LDL: 110- 129 mg/dLBorderline High LDL: 130-159 mg/dLHigh LDL: 160-189 mg/dLVery High LDL: greater than or equal to 190 mg/dL HDL Cholesterol 39(L) >40 mg/dL [facility] Comment:Desirable HDL: great er than 40 mg/dL Note: This HDL assay may give artificially low results in patients with liver disease. Blood Venous blood specimen / Unknown 08/31/2023 4:11 PM EST 08/31/2023 5:27 PM EST us Valeri Lerner DO LAB BLOOD ORDERABLES Final R esult [facility] [address] [place] [phone] [phone] from Last 3 Months or Most Recently Relevant to Health Maintenance Insurance [facility] STANDARD [facility] DUAL COMPLETE [address] [place] [id number] Care Teams Sole Buffer Relationship Specialty Start Date End Date Valeri Lerner DO [address] [place] [id number] PCP - General Family Medicine 07/13/12 [employer] 12/08/23
--- OUTSIDE RECORDS SUMMARY | 2025-02-13 11:14 | XMS_ITS | Encounter Summary ---
Author Organization [facility] Address [address] [place] [id number] Care Team Providers Care Warehouse Selector Name Role Phone Valeri Lerner DO Primary Care Provider [phone] Encounter Details Date Type Department Care Team (Late st Contact Info) Description 11/01/2024 Lab Requisition [facility] [address] [facility] [place] [address] Amrita Polanco MD [address] [place] [phone] Heart failure, unspecified (CMS/HCC V24, CMS/HCC V28) Social History Tobacco Use Types Packs/Day Years Used Date Smoking Tobacco: Never Assessed Comments Unknown Sex and Gender Information Value Date Recorded Sex Assigned at Not on file Legal Sex Female 9:10 PM EST Gender Identity Not on file Sexual Orientation Not on file documented as of this encounter Plan of Treatment Not on file documented as of this encounter Procedures Procedure Name Priority Date/Time Associated Diagnosis Comments PROTHROMBIN TIME WITH INR Routine 11/01/2024 6:48 AM EDT Heart failure, unspecified (CMS/HCC) documented in this encounter Results * (ABNORMAL) Prothrombin time with INR (11/01/2024 6:48 AM EDT) Protime 15.3(H) 10.6 - 13.9 sec LAB COAGULATION METHOD 11/01/2024 9:58 AM [facility] INR 1.2 LAB COAGULATION METHOD 11/01/2024 9:58 AM [facility] Blood Venous blood specimen / Unknown Venipuncture / Unknown 11/01/2024 6:48 AM EDT 11/01/2024 9:35 AM EDT us Amrita Polanco MD LAB BLOOD ORDERABLES Final Resu lt [facility] [address] [place] [address], documented in this encounter Visit Diagnoses Diagnosis Heart failure, unspecified (CMS/HCC V24, CMS/HCC V28) Heart failure, unspecified documented in this encounter Care Teams Warehouse Selector Relationship Specialty Start Date End Date Valeri Lerner DO [address] [place] [address] PCP - General 11/15/14 documented as of this encounter
--- OUTSIDE RECORDS SUMMARY | 2025-02-13 11:14 | XMS_ITS | Patient Health Record ---
Author Organization [facility] Address [address] [place] [address] Care Team Providers Care Public Services Assistant Name Role Phone Tyler Garsia Unavailable [phone] Reason For Referral No Information Plan Of Treatment No Information
--- OUTSIDE RECORDS SUMMARY | 2025-02-13 11:14 | XMS_ITS ---
Author Name Mike Radford NP Address [address] [place] [address] Phone [phone] [facility] Care Team Providers Care Catering Chef Name Role Phone Mike Radford Unavailable [phone] Unavailable Unavailable Unavailable [facility] Unavailable [phone] Reason for Referral Not Available Allergies, adverse [...] 8 UNITS SUBCUTANEOUSLY THREE TIMES DAILY 2021-05-10 2024-11-22 Lantus SoloStar 100 UNIT/ML Solution Pen-injector Subcutaneous INJECT 26 UNITS SUBCUTANEOUSLY EVERY DAY 2021-12-15 No Data Available Warfarin Sodium 4 mg Tab TAKE 1 TO 1 & [...] TABLET BY M OUTH AT BEDTIME 2021-12-31 2024-11-22 Docusate Sodium 100 mg Cap TAKE 1 CAPSUL E BY MOUTH TWICE DAILY 2022-02-25 No Data Available Fluticasone Propionate 50 MCG/ACT Suspension USE 2 SPRAYS IN EACH NOSTRIL EVERY DAY 2022-01-27 No Data Available Furosemide 20 mg Tab Take 1 tablet daily for 3 days. 2022-02-25 No Data Available Levothyroxine Sodium 100 [...] TABLETS BY M OUTH EVERY DAY 2024-01-08 2024-11-22 Sucralfate 1 GM Tab TAKE 1 TABLET BY ARTHUR TH BEFORE BREAKFAST, BEFORE LUNCH, AND BEFORE SUPPER 2024-01-26 2024-11-22 TechLITE Pen Needle 32 gauge x 5/32 [...] 2024-03-29 No Data Available Comfort EZ Pen [place] 32 gauge x 5/32 USE DIRECTED WITH [...] FOR 28 DAYS 2024-04-26 No Data Available Pentips Pen Needle 32 gauge x USE DIRECTED WITH LANTUS AND HUMALOG 2024-01-25 No Data Available Ciclopirox Olamine 0.77 % Crm APPLY TOPI AVERY TO SKIN OF FEET AND TOES TWICE DAILY DIRECTED 2024-08-16 No Data Available Cetirizine 10 mg Tab TAKE 1/2 TABLET BY MOUTH EVERY MORNING 2024-07-15 No Data Available Polyethylene Glycol 3350 17 GM/SCOOP Powder MIX WITH WATER AND DRINK 238 GRAM ONCE FOR COLONOSCOPY 2024-10-21 No Data Available HumaLOG KwikPen 100 UNIT/ML Solution Pen-injector Subcutaneous inject SC TID per sliding scale 2024-11-22 No Data Available Problem List Problem Status Onset Date Resolved Date Synopsis Atherosclerosis of coronary artery of [place] heart Active 2022-08-30 N/A cont lasix stati n metoprololfu w cardiology Major depressive disorder in partial remission Active 2022-08-30 N/A cont on ser tralinept denies symptoms [facility]cont to [facility] fcont clonazepam for anxiety/insomnia Hypothyroidism Active 2022-08-30 N/A levothyrox inefu w endomtr tsh History of CVA (cerebrovascular accident) Active 2022-08-30 N/A in 95cont statin , antihypertensiveson coumadin for afib Anemia in chronic illness Active 2022-08-30 N/A [facility] cbc.ferritinno s+s of bleeding paroxysmal atrial fibrillation and Hypercoagulability due to atrial fibrillation Active 2022-08-15 N/A continues on coumadinmtr INRsmtr for any s+s of bleedingmetoprolol for rate control Type 2 diabetes mellitus with hyperlipidemia Active 2022-08-30 N/A cont humalog , lantus, metformin, trulicty Outside Care Hgb A1c = 7.1Educated on the importance of daily FSBS checks. Advised to report symptoms of hyperglycemia to CB or PCP. Advised on diabetic diet including avoiding foods with high sugar content, high carbohydrates or starchy foods like rice, potatoes. Advised to eat smaller portions with healthy snacks. Generalized anxiety disorder Active 2024-05-29 N/A Notify provider with any changes in behavior, difficulty sleeping, or new/worsening depressive symptoms. Sepsis due to pneumonia Resolved 2022-10-03 2024-05-29 S table. Recently hospitalized 09/20/22-09/26/22 for sepsis secondary to [...] precautions. Follow up with PCP as indicated. Morbid obesity due to excess calories Active 2022-08-30 N/A BMI 44.29cont di et and exercisefu w pcpmtr labs Hypertensive heart disease with heart failure Active 2024-05-29 N/A Encourage low so dium diet. Encouraged daily blood pressure checks and tracking. Instructed patient to notify CB or PCP if blood pressure >140/90 or <90/50. Congestive heart failure & Secondary hyperaldosteronism Active 2024-05-29 N/A Monitor for w eight gain, SOB, PND and Edema.. Keep a wt log. Call for 3 lb wt gain in a day or 5 lbs in a week.2g Na restricted diet and <1500 ml fluids restriction. Check blood pressure daily and when not feeling wellReport consistent blood pressures readings >140/90/06/24: [employer] reports that in the last couple of days the patient's toes have been pink and sensitive to touch, denies uncontrolled pain to touch. She has an appointment with the washroom operator on monday for further evaluation.01/28/25: Patient denies BLE edema or dyspnea, denies any acute concerns. COPD (chronic obstructive pulmonary disease) Active 2022-08-15 N/A johana cam casmayte w pulmonary01/28/25: Patient denies dyspnea or any other concerns. Incontinence Active 2024-11-22 N/A Incontinence supplies ordered on 11/22 Unsteady gait Active 2024-12-10 N/A [employer] reports that the patient has unsteady gait with walking, requires assistance during ambulation. Hx of falls. Acute hypoxic respiratory failurePneumonia Active 2024-11-22 N/A 11/07/24: Hospit alization 10/21-10/21 for acute hypoxic respiratory failure secondary to pneumonia. Patient presented to cough and shortness of breath. The [facility] In addition, the patient had ER visit 11/05 for aspiration pneumonia. At this time, the patient is home with family and [facility] care. The patient is currently has a soft diet and increase weakness post hospitalization. Medication reconciled with hospital records, unable to confirm with [facility]12/10/24: Cg reports that the patient does not have any acute symptoms, she is 'stable'. She is aware that the patient will continue to steadily decline. Other problems related to medical facilities and other health care Active 2024-05-29 N/A HEART FAILU RE CONTINGENCY PLANLast updated: 05/29/2024[facility] to call for the following symptoms: BP <100/60 / BP >180/100 / Edema/ Exertional dyspnea/ Weight gain or lossPlanned intervention: Increase furosemide (Lasix) to 60 mg for 3 days/ Wrap legs with Mohan wrap/ Put on compression stockings/ Eat lower sodium foods/ Take medication every single dayCOPD CONTINGENCY PLANLast updated: 11/22/2024[facility] to call for the following symptoms: Exertional dyspnea/ Increased cough / WheezingPlanned intervention: Levofloxacin 500mg daily x 5 daysFALL CONTINGENCY PLANMember to call for the following symptoms: Fall / Pre-syncope/ Refusing to use cane / WeaknessPlanned intervention: Order x-ray at [facility] or local hospital Assess for change in mental status and provide reassurance if none (patient's Baseline is a/o x2) / Review importance of sitting for two to three minutes prior to standing after laying down Encounters Encounters Type Facility Date of Service Diagnosis/Co mplaint New patient,40-59min; chronic exacerbation, 2 stable chronic or 1 acute illness add add modifier 95 for video (do not use for phone, instead use [id number]) [facility] ([place]) 08/25/2022 Paroxysmal atrial fibrillationChronic obstructive pulmonary disease, unspecifiedAthscl heart disease of [place] coronary artery w/o ang pctrsType 2 diabetes [...] (do not use for phone, instead use 62141-39) [facility] [place] New patient,40-59min; chronic exacerbation, 2 stable chronic or 1 acute illness add add modifier 95 for video (do not use for phone, instead use 17730-98) [facility] [place] 08[place]/2022 New patient,40-59min; chronic exacerbation, 2 stable chronic or 1 acute illness add add modifier 95 for video (do not use for phone, instead use 94785-25) [facility] [place] 08[place]/2022 New patient,40-59min; chronic exacerbation, 2 stable chronic or 1 acute illness add add modifier 95 for video (do not use for phone, instead use 41560-11) [facility] [place] 08/[place]/2022 New patient,40-59min; chronic exacerbation, 2 stable chronic or 1 acute illness add add modifier 95 for video (do not use for phone, instead use 45030-94) [facility] [place] 08/[place]/2022 New patient,40-59min; chronic exacerbation, 2 stable chronic or 1 acute illness add add modifier 95 for video (do not use for phone, instead use 07903-03) [facility] [place] 08/25/2022 New patient,40-59min; chronic exacerbation, 2 stable chronic or 1 acute illness add add modifier 95 for video (do not use for phone, instead use 90171-24) [facility] [place] 08/25/2022 Estab. patient 20-29min; 1 stable chronic or 2 minor; add add modifier 95 for video, modifier 93 for phone [facility] [place] 10/03/2022 Pneumonia, unspecified organismSepsis, unspecified organism Estab. patient 20-29min; 1 stable chronic or 2 minor; add add modifier 95 for video, modifier 93 for phone [facility] [place] 10/03/2022 Estab. patient 20-29min; 1 stable chronic or 2 minor; add add modifier 95 for video, modifier 93 for phone [facility] [place] 10/03/2022 Estab. patient 20-29min; 1 stable chronic or 2 minor; add add modifier 95 for video, modifier 93 for phone [facility] [place] 10/03/2022 Estab. patient 20-29min; 1 stable chronic or 2 minor; add add modifier 95 for video, modifier 93 for phone [facility] [place] 10/03/2022 Estab. patient 20-29min; 1 stable chronic or 2 minor; add add modifier 95 for video, modifier 93 for phone [facility] [place] 10/03/2022 Estab. patient 30-39min; chronic exacerbation, 2 stable chronic or 1 acute illness add add modifier 95 for video, (do not use for phone, instead use 67615-65) [facility] [place] 05/28/2024 Paroxysmal atrial fibrillationOther thrombophiliaHypertensive heart disease with heart failureMorbid (severe) obesity due to excess caloriesSecondary hyperaldosteronismChronic obstructive pulmonary disease, unspecifiedHeart failure, unspecifiedMajor depressive disorder, single episode, in partial remissionType 2 diabetes mellitus with other specified complicationHypothyroidism, unspecifiedHyperlipidemia, unspecifiedAthscl heart disease of [place] coronary artery w/o ang pctrsAnemia in other chronic diseases classified elsewhereGeneralized anxiety disorderBody mass index (BMI) 40.0-44.9, adultPrsnl hx of TIA (TIA), and cereb infrc w/o resid deficitsOther problems related to medical facilities and other health care Estab. patient 30-39min; chronic exacerbation, 2 stable chronic or 1 acute illness add add modifier 95 for video, (do not use for phone, instead use 38504-29) [facility] [place] 05/28/2024 Estab. patient 30-39min; chronic exacerbation, 2 stable chronic or 1 acute illness add add modifier 95 for video, (do not use for phone, instead use 61777-70) [facility] [place] 05/28/2024 Estab. patient 30-39min; chronic exacerbation, 2 stable chronic or 1 acute illness add add modifier 95 for video, (do not use for phone, instead use 14402-06) [facility] ([place] 05/28/2024 Estab. patient 30-39min; chronic exacerbation, 2 stable chronic or 1 acute illness add add modifier 95 for video, (do not use for phone, instead use 57583-14) [facility] ([place] 05/28/2024 Estab. patient 30-39min; chronic exacerbation, 2 stable chronic or 1 acute illness add add modifier 95 for video, (do not use for phone, instead use 49757-80) [facility] ([place] 05/28/2024 Estab. patient 30-39min; chronic exacerbation, 2 stable chronic or 1 acute illness add add modifier 95 for video, (do not use for phone, instead use 34065-65) [facility] ([place] 05/28/2024 Estab. patient 30-39min; chronic exacerbation, 2 stable chronic or 1 acute illness add add modifier 95 for video, (do not use for phone, instead use 85794-51) [facility] ([place] 05/28/2024 Estab. patient 30-39min; chronic exacerbation, 2 stable chronic or 1 acute illness add add modifier 95 for video, (do not use for phone, instead use 22503-72) [facility] [place] 05/28/2024 Estab. patient 30-39min; chronic exacerbation, 2 stable chronic or 1 acute illness add add modifier 95 for video, (do not use for phone, instead use 89774-90) [facility] [place] 05/28/2024 Estab. patient 30-39min; chronic exacerbation, 2 stable chronic or 1 acute illness add add modifier 95 for video, (do not use for phone, instead use 10392-72) [facility] [place] 05/28/20[place] Estab. patient 10-29min; 1 minor problem; add add modifier 95 for video, modifier 93 for phone [facility] [place] 09/10/2024 Heart failure, unspecifiedSecondary hyperaldosteronismOther problems related to medical facilities and other health care Estab. patient 10-29min; 1 minor problem; add add modifier 95 for video, modifier 93 for phone [facility] [place]2024 Chronic obstructive pulmonar y disease, unspecifiedHypertensive heart disease with heart failureHeart failure, unspecified Estab. patient 10-29min; 1 minor problem; add add modifier 95 for video, modifier 93 for phone [facility] [place] 11/07/2024 Acute respiratory failure wi th hypoxiaChronic obstructive pulmonary disease, unspecifiedPneumonia, unspecified organismUnspecified urinary incontinenceOther problems related to medical facilities and other health care Estab. patient 10-29min; 1 minor problem; add add modifier 95 for video, modifier 93 for phone [facility] [place] 11/07/2024 Estab. patient 10-29min; 1 minor problem; add add modifier 95 for video, modifier 93 for phone [facility] [place] 11/07/2024 Estab. patient 10-29min; 1 minor problem; add add modifier 95 for video, modifier 93 for phone [facility] [place] 11/07/2024 Estab. patient 10-29min; 1 minor problem; add add modifier 95 for video, modifier 93 for phone [facility] [place] 12/10/2024 Acute respiratory failure wi th hypoxiaPneumonia, unspecified organismUnsteadiness on feetOther problems related to medical facilities and other health care Estab. patient 10-29min; 1 minor problem; add add modifier 95 for video, modifier 93 for phone [facility] [place] 01/28/2025 Heart failure, unspecifiedSecondary hyperaldosteronismChronic obstructive pulmonary disease, unspecifiedOther problems related to medical facilities and other [...] - 120.0 mm[Hg]Pain Scale - 5.0 {score} 2024-11-07 09:59:08 BP Diastolic - 54.0 mm[Hg]BP Systolic - 120.0 mm[Hg] Social History Social History Social History Observation Description Effec tive Time Current Smoking Status Former smoker 2025-01-28 7 Sex Female Gender identity Woman History of Procedures Procedures Service Procedure code Service date Servicing provider Phone# New patient,40-59min; chronic exacerbation, 2 stable chronic or 1 acute illness add add modifier 95 for video (do not use for phone, instead use 10359-66) [id number] 2022-08-25 No Data Available No Data Availa [...] 95 for video, modifier 93 for phone [id number] 2022-10-03 No Data Available No Data Availa [...] (do not use for phone, instead use 22350-52) 13785 2024-05-28 No Data Available No Data Availa [...] ble Advance care planning discussed and documented advance care plan or surrogate decision-maker was [...] 95 for video, modifier 93 for phone [id number] 2024-09-10 No Data Available No Data Availa ble Estab. patient 10-29min; 1 minor problem; add add modifier 95 for video, modifier 93 for phone [id number] 2024-10-10 No Data Available No Data Availa ble Estab. patient 10-29min; 1 minor problem; add add modifier 95 for video, modifier 93 for phone [id number] 2024-11-07 No Data Available No Data Availa ble Medications prescribed in hospital were reviewed and reconciled against what they were taking prior to admission during today's visit. (1111F) 1111F 2024-11-07 No Data Available No Data Availa ble Advance care planning discussed and documented advance care plan or surrogate decision-maker was documented in the medical record. (1123F) 1123F 2024-11-07 No Data Available No Data Availa ble Medication List Documented (1159F) [id number] 2024-11-07 No Data Available No Data Keily ilable Estab. patient 10-29min; 1 minor problem; add add modifier 95 for video, modifier 93 for phone [id number] 2024-12-10 No Data Available No Data Availa ble Estab. patient 10-29min; 1 minor problem; add add modifier 95 for video, modifier 93 for phone [id number] 2025-01-28 No Data Available No Data Availa ble [...] Date Cognition Status: Oriented to Person, Pl mohan and Time 2024-05-29 Assessments Date of Service Assessments 2022-08-25 06:36:45 paroxysmal atrial fi brillationCOPD (chronic obstructive pulmonary disease)Atherosclerosis of coronary artery of [place] heartType 2 diabetes mellitus with hyperlipidemiaMajor depressive disorder in partial remissionHypothyroidismMorbid obesity due to excess caloriesHistory of CVA (cerebrovascular accident)Anemia in chronic illness 2022-10-03 07:05:20 Patient Education to avoid future hospitalization: Call [facility] if symptoms of illness develop.Sepsis due to pneumonia 2024-05-28 07:45:46 paroxysmal atrial fi brillation and Hypercoagulability due to atrial fibrillationCOPD (chronic obstructive pulmonary disease)Atherosclerosis of coronary artery of [place] heartType 2 diabetes mellitus with hyperlipidemiaMajor depressive [...] to medical facilities and other health care 2024-11-07 09:59:08 Patient Education to avoid future hospitalization: Call [facility] if symptoms of illness develop.Acute hypoxic respiratory failurePneumoniaOther problems related to medical facilities and other health careIncontinenceCOPD (chronic obstructive pulmonary disease) 2024-12-10 12:13:03 Unsteady gaitAcute h ypoxic respiratory failurePneumoniaOther problems related to medical facilities and other health care 2025-01-28 07:16:56 Congestive heart lazaro lure & Secondary hyperaldosteronismCOPD (chronic obstructive pulmonary disease)Other problems related to medical facilities and other [...] lantus, metformin, trulicty a1c 7.7, cont to mtrada dietcont simvastatin and mtr lipids fu w endocrinecont on sertralinept denies symptoms currentlycont to [facility] fcont clonazepam for anxiety/insomnialevothyroxinefu w endomtr tshBMI [...] record (1158F)Advance care planning discussed and documented advance care plan or surrogate decision-maker was documented in the medical record. (1123F)Pain Assessment - Pain Documented (1125F)Medication Review by prescribing provider or pharmacist documented (1160F)Medication List Documented (1159F)Most recent hemoglobin A1c (HbA1c) level 7-7.9% (3051F)SBP < 130 (3074F)DBP 80-89 (3079F)Continue to see PCP. Follow-up with [facility] as needed for any acute or disease [...] >140/90 or <90/50.HEART FAILURE CONTINGENCY PLANLast updated: 05/29/2024[facility] to call for the following symptoms: BP <100/60 / BP >180/100 / Edema/ Exertional dyspnea/ Weight gain or lossPlanned intervention: Increase furosemide (Lasix) to _ mg for _ days/ Wrap legs with Mohan wrap/ Put on compression stockings/ Eat lower sodium foods/ Take medication every single day 2024-09-10 07:14:42 Estab. patient 10-29 min; 1 minor problem; add add modifier 95 for video, modifier 93 for phoneContinue to see PCP. [facility] or disease education needs that may arise 20/02.HEART FAILURE CONTINGENCY PLANLast updated: 05/29/2024[facility] to call for the following symptoms: BP <100/60 / BP >180/100 / Edema/ Exertional dyspnea/ Weight gain or lossPlanned intervention: Increase furosemide (Lasix) to _ mg for _ days/ Wrap legs with Mohan wrap/ Put on compression stockings/ Eat lower sodium foods/ Take medication every single dayMonitor for weight gain, SOB, PND and Edema.. Keep a wt log. Call for 3 lb wt gain in a day or 5 lbs in a week.2g Na restricted diet and <1500 ml fluids restriction. 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 She has an appointment with the washroom operator on monday for further evaluation. 2024-10-10 06:15:41 Estab. patient 10-29 min; 1 minor problem; add add modifier 95 for video, modifier 93 for phoneContinue to see PCP. Follow-up with [facility] as needed for any acute or disease education needs that may arise 20/02.advair, fluticasonefu w pulmonary10/10/24: Patient denies dyspnea or any other concerns.Encourage low sodium diet. Encouraged daily blood pressure checks and tracking. Instructed patient to notify CB or PCP if blood pressure >140/90 or <90/50.HEART FAILURE CONTINGENCY PLANLast updated: 05/29/2024Member to call for the following symptoms: BP <100/60 / BP >180/100 / Edema/ Exertional dyspnea/ Weight gain or lossPlanned intervention: Increase furosemide (Lasix) to 60 mg for 3 days/ Wrap legs with Mohan wrap/ Put on compression stockings/ Eat lower sodium foods/ Take medication every single day 2024-11-07 09:59:08 Discharge medication s reconciled with current medication listAdvance care planning discussed and documented advance care plan or surrogate decision-maker was documented in the medical record. (1123F)Estab. patient 10-29min; 1 minor problem; add add modifier 95 for video, modifier 93 for phonePCP visit is planned for:11/07/24: Hospitalization 10/21-10/21 for acute hypoxic respiratory failure secondary to pneumonia. Patient presented to cough and shortness of breath. The patient was discharged to [facility]. In addition, the patient had ER visit 11/05 for aspiration pneumonia. At this time, the patient is home with family and [facility] [employer] care. The patient is currently has a soft diet and increase weakness post hospitalization. Medication reconciled with hospital records, unable to confirm with VNAHEART FAILURE CONTINGENCY PLANLast updated: 05/29/2024[facility] to call for the following symptoms: BP <100/60 / BP >180/100 / Edema/ Exertional dyspnea/ Weight gain or lossPlanned intervention: Increase furosemide (Lasix) to 60 mg for 3 days/ Wrap legs with Mohan wrap/ Put on compression stockings/ Eat lower sodium foods/ Take medication every single dayCOPD CONTINGENCY PLANLast updated: 11/22/2024[facility] to call for the following symptoms: Exertional dyspnea/ Increased cough / WheezingPlanned intervention: Levofloxacin 500mg daily x 5 daysIncontinence supplies ordered on 11/22advair, fluticasonefu w pulmonary10/10/24: Patient denies dyspnea or any other concerns. 2024-12-10 12:13:03 Estab. patient 10-29 min; 1 minor problem; add add modifier 95 for video, modifier 93 for phoneContinue to see PCP. Follow-up with [facility] as needed for any acute or disease education needs that may arise 20/02.[employer] reports that the patient has unsteady gait with walking, requires assistance during ambulation. Hx of falls.11/07/24: Hospitalization 10/21-10/21 for acute hypoxic respiratory failure secondary to pneumonia. Patient presented to cough and shortness of breath. The patient was discharged to a [facility]. In addition, the patient had ER visit 11/05 for aspiration pneumonia. At this time, the patient is home with family and [facility] [employer] [facility] care. The patient is currently has a soft diet and increase weakness post hospitalization. Medication reconciled with hospital records, unable to confirm with [facility]12/10/24: reports that the patient does not have any acute symptoms, she is 'stable'. She is aware that the patient will continue to steadily decline.HEART FAILURE CONTINGENCY PLANLast updated: 05/29/2024[facility] to call for the following symptoms: BP <100/60 / BP >180/100 / Edema/ Exertional dyspnea/ Weight gain or lossPlanned intervention: Increase furosemide (Lasix) to 60 mg for 3 days/ Wrap legs with Mohan wrap/ Put on compression stockings/ Eat lower sodium foods/ Take medication every single dayCOPD CONTINGENCY PLANLast updated: 11/22/2024[facility] to call for the following symptoms: Exertional dyspnea/ Increased cough / WheezingPlanned intervention: Levofloxacin 500mg daily x 5 daysFALL CONTINGENCY PLANMember to call for the following symptoms: Fall / Pre-syncope/ Refusing to use cane / WeaknessPlanned intervention: Order x-ray at [facility] or local hospital Assess for change in mental status and provide reassurance if none (patient's Baseline is a/o x2) / Review importance of sitting for two to three minutes prior to standing after laying down 2025-01-28 07:16:56 Estab. patient 10-29 min; 1 minor problem; add add modifier 95 for video, modifier 93 for phoneContinue to see PCP. Follow-up with [facility] as needed for any acute or disease education needs that may arise 20/02.Monitor for weight gain, SOB, PND and Edema.. Keep a wt log. Call for 3 lb wt gain in a day or 5 lbs in a week.2g Na restricted diet and <1500 ml fluids restriction. 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 She has an appointment with the washroom operator on monday for further evaluation.01/28/25: Patient denies BLE edema or dyspnea, denies any acute concerns.advair, fluticasonefu w pulmonary01/28/25: Patient denies dyspnea or any other concerns.HEART FAILURE CONTINGENCY PLANLast updated: 05/29/2024[facility] to call for the following symptoms: BP <100/60 / BP >180/100 / Edema/ Exertional dyspnea/ Weight gain or lossPlanned intervention: Increase furosemide (Lasix) to 60 mg for 3 days/ Wrap legs with Mohan wrap/ Put on compression stockings/ Eat lower sodium foods/ Take medication every single dayCOPD CONTINGENCY PLANLast updated: 11/22/2024Member to call for the following symptoms: Exertional dyspnea/ Increased cough / WheezingPlanned intervention: Levofloxacin 500mg daily x 5 daysFALL CONTINGENCY PLANMember to call for the following symptoms: Fall / Pre-syncope/ Refusing to use cane / WeaknessPlanned intervention: Order x-ray at [facility] or local hospital Assess for change in mental status and provide reassurance if none (patient's Baseline is a/o x2) / Review importance of sitting for two to three minutes prior to standing after laying down Goals Date Goal 2022-08-25 fu w pcp, [...] PCP and Specialist. Health Concerns Date Concern 2025-01-28 Patient/Guardian russell tidwell to visit via telehealth.Visit completed via: [ ] audio and video; [x] audio only 2025-01-28 Concerns for today's visit:No acute concerns or needs 2025-01-28 Most recent hospital stay or ER visit:No ER visits or hospitalizations documented in [facility] in 90 days. Member denies ER visits or hospitalizations in last 90 days. 2025-01-28 Open HEDIS Measures: No open measures
[2025-02-13] MEDS: Potassium Chloride/H20 10 MEQ/100 ML PIGGYBACK 50 MEQ IV (11:57)
--- NOTE | 2025-02-13 12:06 | PC.NURSE ---
C-collar cleared per RUTH Hunt
--- NOTE | 2025-02-13 12:46 | PC.NURSE ---
Mary Jo daughter Farzana mendoza number [phone]
--- NOTE | 2025-02-13 13:39 | PM.IMHP ---
History of Present Illness Date of Service: 02/13/25 Attending physician on admission: Jaylene Pelaez Chief Complaint: Fall Nikky Morgan is 89 years old woman with past medical history significant for type 2 diabetes mellitus, CHF, chronic use of oxygen as needed, hypothyroidism, essential hypertension, paroxysmal atrial fibrillation and DVT on warfarin (s/p IVC filter placement) after patient was found on the floor today. Patient stated she fell last night after slipped with her urine. She fell on her buttock. Denied head trauma. She denied any symptoms such as headache, loss of consciousness, dizziness, chest pain, shortness of breath, abdominal pain, nausea, fever, chills. vomiting or diarrhea. She does complain of pain with urination and increased urinary frequency. She is a former tobacco smoking, quit over 40 years ago. Denied alcohol abuse or illicit drug use. Patient was found in the floor by her son after a wellness check. In the ED, she was found to have stable vital signs. She is currently on 3-4 L/min supplemental oxygen via nasal cannula. Blood workup is remarkable for leukocytosis 14.1. Hemoglobin is 12.1 and platelets 136. INR is 2.9. PH is 7.49, pCO2 36 and HC03 28. There is hypokalemia of 3.1 and hypomagnesemia 1.4. There are no other electrolyte imbalances. Renal function and LFTs are normal. CPK is 241. Urinalysis is remarkable for proteinuria and finding consistent with urinary tract infection including hematuria. Viral testing for COVID-19, influenza and RSV is negative. Head, C-spine, head and lumbar spine CT scan showed no acute fractures or findings. Lumbar spine showed stable chronic moderate superior endplate fracture of L2, CP PD arthropathy and abutment spinous process of L2-3, L3-4 and L4 -5. ECG showed A-flutter, rate 90 beats per minute and prolonged QT 548 milliseconds acute ischemic changes. ED tx: Magnesium sulfate 2 g IV, KCl IV and ceftriaxone 1 g IV. Review of Systems Review of Systems: All 12 systems were reviewed and normal except as noted in HPI. [facility] Medical History Heart block Hypertension CHF (congestive heart failure) Pneumonia Multiple falls Acute on chronic respiratory failure with hypoxemia Weakness Urgency incontinence Menopause Well woman exam Current use of anticoagulant therapy Stenosis of carotid artery Diabetes type 2, controlled Sepsis Gastroenteritis Hypoxia Pneumonia Urinary incontinence Obesity due to excess calories Type 2 diabetes mellitus with diabetic polyneuropathy Senile cataract of left eye Essential hypertension Hyperlipemia Paroxysmal A-fib Anxiety disorder Hypothyroidism Coronary artery disease History of cerebrovascular accident Osteoarthritis Osteopenia Deep vein thrombosis Hearing loss Family History Father Heart disease CVD (cardiovascular disease) Mother Diabetes Surgical History H/O colonoscopy H/O breast surgery S/P IVC filter History of bilateral tubal ligation Social History Household Members: Family Housing: Apartment Do you presently have visiting nurse or other home services: Yes Alcohol intake: never Patient Tobacco Use Status: Former Tobacco user Tobacco use type: Cigarette Advance Directives: Yes Advance Directives on File: Yes Advance Directives Date on File: 07/01/22 service: No Current occupational status: unemployed Sexual orientation: Straight/Heterosexual Gender identity: Female Meds Allergies Allergy/AdvReac Type Severity Reaction Status Date / Time shellfish derived Allergy Severe Hives Verified 02/13/25 09:14 aspirin (Aspirin) Allergy Mild Gastrointestinal Verified 02/13/25 09:14 Upset ibuprofen Allergy Unknown Unknown Verified 02/13/25 09:14 oxycodone (From PERCOCET) Allergy Unknown PALPITATION Verified 02/13/25 09:14 S Robitussin Cold Cough+ Chest Allergy Intermediate hives Uncoded 10/10/24 20:41 SEAFOOD Allergy Intermediate hives Uncoded 10/10/24 20:41 Active Medications: Current Medications Acetaminophen (Acetaminophen 325 Mg Tablet) 975 mg PO Q6H PRN PRN Reason: Pain, Mild 1-3,fever,headache Calcium Carbonate (Calcium Carbonate 750 Mg Tab.Chew) 750 mg PO Q4H PRN PRN Reason: Heartburn Dextrose (Dextrose 50 % 25 Gm/50 Ml Syringe) 25 gm IVPUSH Q15M PRN; Protocol PRN Reason: per Hypoglycemia Standing Ord. Glucose (Glucose Gel 15 Gm Gel..Gram.) 15 gm PO Q15M PRN; Protocol PRN Reason: per Hypoglycemia Standing Ord. Insulin Human Lispro (Insulin Lispro 100 Unit/Ml 3 Ml Vial) 0 unit SUBCUT QIDACHS [facility]; Protocol Magnesium Hydroxide (Milk Of Magnesia 30 Ml Oral.Susp) 30 ml PO DAILY PRN PRN Reason: Constipation Sodium Chloride (0.9 % Sodium Chloride Flush 3 Ml Syringe) 3 ml IVFLUSH QSHIFT [facility] Home Medications ?Medication ?Instructions ?Recorded ?Confirmed ?Last Taken ?Type atorvastatin 20 mg tablet 20 mg PO BEDTIME 05/21/20 10/11/24 02/08/24 History blood sugar diagnostic #10 ea 05/21/20 03/22/24 Unknown History cholecalciferol (vitamin D3) 50 50 mcg PO DAILY 05/21/20 10/11/24 02/08/24 History mcg (2,000 unit) tablet fluticasone 500 mcg-salmeterol 50 1 inh inhalation BID 05/21/20 10/11/24 02/08/24 History mcg/dose blistr powdr for inhalation (Wixela Inhub) fluticasone propionate 50 2 spray intranasal DAILY 05/21/20 10/11/24 02/08/24 History mcg/actuation nasal spray,suspension lancets #100 ea 05/21/20 03/22/24 Unknown History levothyroxine 100 mcg tablet 100 mcg PO DAILY@0600 05/21/20 10/11/24 02/08/24 History omeprazole 20 mg capsule,delayed 20 mg PO BID@0630,1630 05/21/20 10/11/24 02/08/24 History release pen needle, diabetic 32 gauge x #50 ea 05/21/20 03/22/24 Unknown History sertraline 50 mg tablet 50 mg PO DAILY 05/21/20 10/11/24 02/08/24 History metoprolol tartrate 25 mg tablet 12.5 mg PO BID 12/17/20 10/11/24 02/08/24 History nebulizers (Sidestream misc) #1 ea 05/14/21 03/22/24 Unknown History multivitamin-iron sulfate 15 1 tab PO DAILY 12/15/21 10/11/24 02/08/24 History mg-folic acid 400 mcg tablet (Tab-A-Judith Multivitamin w-iron) insulin lispro 100 unit/mL See Protocol subcut TIDAC 06/26/22 10/11/24 02/08/24 History subcutaneous pen (Humalog KwikPen (U-100) Insulin) metformin 500 mg tablet,extended 500 mg PO BIDWM 09/20/22 10/11/24 02/08/24 History release 24 hr docusate sodium 100 mg capsule 100 mg PO BID 04/19/23 10/11/24 Unknown History acetaminophen 650 mg 650 mg PO Q8H PRN Pain/Fever 02/09/24 10/11/24 Unknown History tablet,extended release ciclopirox 0.77 % topical cream 1 appl topical BID 09/16/24 10/11/24 Unknown History furosemide 20 mg tablet 60 mg PO DAILY 09/16/24 10/11/24 Unknown History insulin glargine 100 unit/mL (3 26 unit subcut DAILY 09/16/24 10/11/24 Unknown History mL) subcutaneous pen (Lantus Solostar U-100 Insulin) loratadine 10 mg tablet 10 mg PO DAILY PRN Allergy Symptoms 09/16/24 10/11/24 Unknown History semaglutide 0.25 mg or 0.5 mg (2 0.5 mg subcut FR 09/16/24 10/11/24 10/04/24 History mg/3 mL) subcutaneous pen injector (Ozempic) solifenacin 10 mg tablet 10 mg PO DAILY 09/16/24 10/11/24 Unknown History warfarin 4 mg tablet 2 mg PO MO@1800 09/16/24 10/11/24 10/08/24 History warfarin 4 mg tablet 4 mg PO SUTUWETHFRSA@1800 10/11/24 10/11/24 10/10/24 History cetirizine 10 mg tablet 5 mg PO DAILY 02/13/25 Unknown History Physical Exam Vital Signs and Narrative: Vital Signs: Last Vital Signs Temp 98.0 F 02/13/25 11:24 Pulse 81 02/13/25 11:24 Resp 19 02/13/25 11:24 BP 123/56 L 02/13/25 11:24 Pulse Ox 97 02/13/25 11:24 O2 Del Method Room Air 02/13/25 11:24 Oxygen Flow Rate 4 02/13/25 09:11 BMI result Body Mass Index 36.0 Constitutional - Awake and Alert, No apparent distress HEENt - PER, EOMI Heart - RRR, No murmurs Lungs - Normal lung expansion, Normal respiratory effort, No respiratory distress, CTA bilaterally Abdomen - NT / ND; +BS; No rebound or guarding Extremities - no calf tenderness bilaterally, no swelling Musculoskeletal - there is muscle atrophy. No deformities. Skin - Warm/Dry Neurological - Alert & oriented x3. Moving all extremities spontaneously. Normal speech. Psychological - Appropriate affect Results Labs 02/13/25 09:19 02/13/25 09:19 Labs: Laboratory Results - last 24 hr 02/13/25 02/13/25 02/13/25 09: 09: 10:00 MCV 90.6 MCH 30.8 MCHC 34.0 RDW 13.9 Plt Count 136 L D MPV 11.2 Immature Gran % (Auto) 0.6 H Neut % (Auto) 90.0 H Lymph % (Auto) 2.9 L Banner % (Auto) 6.3 Eos % (Auto) 0.0 Baso % (Auto) 0.2 Lymph # (Auto) 0.4 L Banner # (Auto) 0.9 Eos # (Auto) 0.0 Baso # (Auto) 0.0 Abs Immat Gran (auto) 0.08 H Absolute Neuts (auto) 12.7 H Absolute Nucleated RBC 0.000 Nucleated RBC % (auto) 0.0 PT 33.1 H INR 2.9 H VBG pH 7.49 H VBG pCO2 36 VBG pO2 88 VBG HCO3 28 H VBG O2 Saturation 99.0 VBG Base Excess 4.9 Anion Gap 13 Estim Creat Clear Calc 44.9 Estimated GFR 55 Random Glucose 274 H Calcium 9.5 Magnesium 1.4 L* Total Bilirubin 0.9 AST 25 ALT 14 Alkaline Phosphatase 114 Total Creatine Kinase 241 H Total Protein 7.7 Albumin 4.0 Urine Color Yellow Urine Appearance Cloudy Urine pH 6.5 Ur Specific [place] 1.015 Urine Protein 300 (3+) H Urine Glucose (UA) 100 H Urine Ketones Negative Urine Blood Large (3+) H Urine Nitrite Negative Ur Leukocyte Esterase Large (3+) H Urine RBC 6-10 H Urine WBC >50 H Urine WBC Clumps Present Ur Squamous Epith Cells 0-2 Urine Bacteria 4+ Hyaline Casts 3-5 Urine Yeast Present Influenza Type A (PCR) NEGATIVE Influenza Type B (PCR) NEGATIVE RSV RNA Qual (PCR) NEGATIVE SARS-CoV-2 RNA (RT-PCR) NEGATIVE Imaging Radiologist's Impressions: Impressions Chest CT 02/13/25 09:27 IMPRESSION: No evidence of traumatic injury to the chest. No focal airspace opacity is identified. Electronically signed by: Tyler Mendez MD 02/13/2025 11:22 AM EDT RP Head CT 02/13/25 09:27 IMPRESSION: No acute intracranial abnormality. Generalized atrophy. 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 Electronically signed by: Magdy Lloyd MD 02/13/2025 11:39 AM EDT RP Lumbar Spine CT 02/13/25 09:27 IMPRESSION: Stable chronic moderate superior endplate fracture of L2. CPPD arthropathy. Spinous process abutment at L2-3, L3-4, and L4-5. This can be a source of back pain. Electronically signed by: Magdy Lloyd MD 02/13/2025 11:28 AM EDT RP Cervical Spine CT 02/13/25 10:27 IMPRESSION: 1. No CT evidence of acute cervical spine fracture or injury. 2. Stable degenerative spondylosis most notable at C5-6 and C6-7. Electronically signed by: Aakash Pisano MD 02/13/2025 11:23 AM EDT RP Assessment and Plan (1) Prolonged QT interval: Status: Acute (2) UTI (urinary tract infection): Qualifiers: Urinary tract infection type: acute cystitis Hematuria presence: with hematuria Qualified Code(s): N30.01 - Acute cystitis with hematuria Status: Inactive Plan Nikky Morgan is 89 y/o admitted wtih: Urinary tract infection in the setting of multiple medical comorbidities and recent fall. Admit to hospitalist service. Continue empiric IV antibiotic therapy with ceftriaxone. IV fluids. Urine culture obtained -will follow results Prolonged QT in the setting of hypokalemia and hypomagnesemia. Replete as needed. Telemetry. Continue to monitor magnesium and potassium level. s/p fall. Fall precautions. Check vitamin-D level. Physical therapy. Type 2 diabetes mellitus. BG checks before meals at bedtime. Lantus and insulin sliding scale. Hold metformin. Diabetic diet. Hypothyroidism. Continue levothyroxine. Mood disorder. Continue sertraline. Essential hypertension. Continue metoprolol. History of VTE. s/p IVF filter placement. INR is therapeutic today 2.9. Continue warfarin. Hyperlipidemia. Continue statin. History of paroxysmal atrial fibrillation/flutter. Currently rhythm controlled. Continue metoprolol and warfarin. HFrEF, 40-45%. No acute symptoms. Chest CT showed clear lungs. Chronic oxygen use as needed. Started after having an event of PNA September of this year. Hx of asthma. Hx of CVA/CAD. Continue warfarin and statin. DVT prophylaxis: Warfarin Code status: Full Patient will need hospitalization for at least 2 midnights for UTI with IV antibiotic therapy in the setting of multiple medical comorbidities including type 2 diabetes mellitus and prolonged QT; she will also need evaluation by Physical therapy. Quality Stroke Does the patient have a stroke diagnosis?: No VTE Prior VTE?: No VTE Risk Level:: Medical - moderate - high VTE Device Contraindication: Treatment Not Indicated VTE Drug Contraindication: N/A - Med Ordered
[2025-02-13 16:48] LABS: Glucose, Whole Blood 217 mg/dL (60-115)
[2025-02-13] MEDS: Lactated Ringers 1,000 ML 999 ML IV (17:11)
[2025-02-13] MEDS: 0.9 % Sodium Chloride Flush 3 ML SYRINGE IVFLUSH ×2 (17:11→21:13)
--- NOTE | 2025-02-13 19:26 | PHA.MEDREC ---
Addendum entered by Moira Alvarez RPh 02/13/25 20:53: Reviewed by [facility] Original Note: Pharmacy Consult ? Medication Reconciliation Pharmacy has completed the medication reconciliation. Spoke to patient family at bedside to confirm med list. Family had a medbox list of patients medications. Family could not confirm insulin doses and Warfarin dose. Daughter states patient has a visiting nurse that comes everyday, however didn't know the contact number for patients nurse. Per Discharge notes from 10/11/24 Patients home nurse was Artemio [phone]. Called Nurse Artemio and he states he is no longer taking care of this patient. Artemio was able to tell me patients new nurse is Jenifer [phone]. Called and spoke to nurse Jenifer and she was able to confirm patient medications. Jenifer states patient is no longer taking Bisacodyl 5 mg, Mucunex, Humalog Kwik pen, and Miralax. Nurse confirmed Lantus 26 units daily, Ozempic 0.5 mg every Monday, Warfarin 4 mg daily for the next 3 weeks per INR checks. Nurse states she is not sure when patient last had her medications because she is on Vacation and another nurse is filling in for her.
[2025-02-13 20:42] LABS: Magnesium 2.2 mg/dL (1.6-2.6); Potassium 3.6 mmol/L (3.3-5.1)
[2025-02-13 20:47] LABS: Glucose, Whole Blood 221 mg/dL (60-115)
--- NOTE | 2025-02-13 21:02 | ECG_ITS ---
Test Reason : CP Blood Pressure : */* mmHG Vent. Rate : 86 BPM Atrial Rate : 88 BPM P-R Int : * ms QRS Dur : 92 ms QT Int : 308 ms P-R-T Axes : * 34 105 degrees QTcB Int : 368 ms Undetermined rhythm -?sinus with very long IN Nonspecific ST and T wave abnormality Abnormal ECG When compared with ECG of 13-Feb-2025 09:23, Current undetermined rhythm precludes rhythm comparison, needs review Referred By: Tavo Cannon Electronically Signed By: MANE MULLIGAN
[2025-02-13] MEDS: Metoprolol Tartrate 12.5 MG HALFTAB PO (21:12)
[2025-02-14] VITALS (10 sets, daily range): BP systolic 119–133; BP diastolic 58–87; PULSE 66–82; RESP 15–20; TEMP 36.2–37.1; O2SAT 91–100
[2025-02-14 07:01] LABS: Glucose, Whole Blood 169 mg/dL (60-115)
[2025-02-14 07:16] LABS: Hematocrit 35.4 % (37.0-47.0); Hemoglobin 11.7 g/dl (12.0-16.0); Imm Gran Abs Auto 0.07 X10*3/uL (0.00-0.03); Imm Gran Pct Auto 0.5 % (0.0-0.4); Lymphocytes Absolute Auto 2.0 X10*3/uL (1.2-4.9); MANUAL DIFF FLAG SCAN; Mean Corpuscular HGB Conc 33.1 g/dl (31.0-35.0); Mean Corpuscular Hemoglobin 30.6 pg (27.0-33.0); Mean Corpuscular Volume 92.7 fL (80.0-98.0); NRBC Abs Auto 0.000 X10*3/uL (0.0-0.012); NRBC Pct Auto 0.0 /100WBC (0.0-0.2); PLT CLUMP 1; Red Blood Count 3.82 X10*6/uL (4.20-5.50); SCAN SMEAR FLAG 1
[2025-02-14 07:18] LABS: INTERNATIONAL NORM RATIO 2.8 (0.9-1.1); Prothrombin Time 31.8 SEC (10.9-12.4)
[2025-02-14 07:39] LABS: Anion Gap 12 (12-20); Blood Urea Nitrogen 20 mg/dL (9-16); Calcium 9.5 mg/dL (8.4-10.2); Carbon Dioxide 26 mmol/L (22-29); Chloride 104 mmol/L (96-108); Creatinine Clr Calc Pharmacy 43.9; Estimated Glomerular Filt Rate 54; Magnesium 2.0 mg/dL (1.6-2.6); Potassium 3.4 mmol/L (3.3-5.1); Sodium 139 mmol/L (135-145)
[2025-02-14 07:56] LABS: Platelet Count 120 X10*3/uL (160-400); White Blood Count 13.0 X10*3/uL (4.8-10.8)
--- NOTE | 2025-02-14 08:09 | P.PNIM_ITS ---
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 f/u on fall, uti doing better with no new issues Physical Exam 2 Vital Signs: Vital Signs: Last Vital Signs Temp 98.5 F 02/14/25 07:27 Pulse 77 02/14/25 07:27 Resp 18 02/14/25 07:27 BP 133/63 02/14/25 07:27 Pulse Ox 97 02/14/25 07:27 O2 Del Method Nasal Cannula 02/14/25 07:27 O2 Flow Rate 2 02/14/25 07:27 Oxygen Flow Rate 4 02/13/25 09:11 BMI result Body Mass Index 35.9 General: AO X 3, no acute distress Resp: CTA bilateral CVS: S1,S2,RRR GI: +BS, NT, no distention Skin: No rash Neuro: motor grossly intact Psych: appropriate affect Objective Data Active Medications Acetaminophen (Acetaminophen 325 Mg Tablet) 975 mg PO Q6H PRN PRN Reason: Pain, Mild 1-3,fever,headache Atorvastatin Calcium (Atorvastatin Calcium 20 Mg Tablet) 20 mg PO BEDTIME [facility] Last Admin: 02/13/25 21:12 Dose: 20 mg Documented By: SATISH Calcium Carbonate (Calcium Carbonate 750 Mg Tab.Chew) 750 mg PO Q4H PRN PRN Reason: Heartburn Ceftriaxone Sodium (Ceftriaxone Sodium 1 Gm Vial) 1 gm IVPUSH Q24H [facility] Dextrose (Dextrose 50 % 25 Gm/50 Ml Syringe) 25 gm IVPUSH Q15M PRN; Protocol PRN Reason: per Hypoglycemia Standing Ord. Docusate Sodium (Docusate Sodium 100 Mg Capsule) 100 mg PO BID [facility] Last Admin: 02/13/25 21:12 Dose: 100 mg Documented By: SATISH Fluticasone Propionate (Fluticasone Propionate Nasal 16 Gm [place]) 2 spray NOSTRIL-B DAILY [facility] Fluticasone/Vilanterol (Fluticasone/Vilanterol 200/25 Blst.W.Dev) 1 puff INHALE RBID [facility] Last Admin: 02/13/25 21:47 Dose: Not Given Documented By: SATISH Non-Admin Reason: med not on unit, pharmacy contacted. Furosemide (Furosemide 20 Mg Tablet) 60 mg PO DAILY [facility]; Protocol Glucose (Glucose Gel 15 Gm Gel..Gram.) 15 gm PO Q15M PRN; Protocol PRN Reason: per Hypoglycemia Standing Ord. Insulin Glargine (Insulin Glargine,Hum.Rec.Anlog 100 Unit/Ml 10 Ml Vial) 26 unit SUBCUT DAILY [facility] Insulin Human Lispro (Insulin Lispro 100 Unit/Ml 3 Ml Vial) 0 unit SUBCUT QIDACHS [facility]; Protocol Last Admin: 02/13/25 21:12 Dose: 4 unit Documented By: SATISH Levothyroxine Sodium (Levothyroxine Sodium 100 Mcg Tablet) 100 mcg PO DAILY@0600 [facility] Last Admin: 02/14/25 05:18 Dose: 100 mcg Documented By: SATISH Loratadine (Loratadine 10 Mg Tablet) 5 mg PO DAILY [facility] Magnesium Hydroxide (Milk Of Magnesia 30 Ml Oral.Susp) 30 ml PO DAILY PRN PRN Reason: Constipation Metoprolol Tartrate (Metoprolol Tartrate 12.5 Mg Halftab) 12.5 mg PO BID [facility]; Protocol Last Admin: 02/13/25 21:12 Dose: 12.5 mg Documented By: SATISH Multivitamins/Vitamin C (Multivitamin Tablet) 1 tab PO DAILY [facility] Omeprazole (Omeprazole 20 Mg Capsule.Dr) 20 mg PO BID@0630,1630 [facility] Last Admin: 02/14/25 05:18 Dose: 20 mg Documented By: SATISH Polyethylene Glycol (Polyethylene Glycol 3350 17 Gm Powd.Pack) 17 gm PO DAILY [facility] Sertraline HCl (Sertraline Hcl 50 Mg Tablet) 50 mg PO DAILY [facility] Sodium Chloride (0.9 % Sodium Chloride Flush 3 Ml Syringe) 3 ml IVFLUSH QSHIFT [facility] Last Admin: 02/13/25 21:13 Dose: 3 ml Documented By: SATISH Tolterodine Tartrate (Tolterodine Tartrate [place] 4 Mg Cap.Er.24h) 4 mg PO DAILY [facility] Vitamin D (Cholecalciferol (Vitamin D3) 25 Mcg Tablet) 50 mcg PO DAILY [facility] Warfarin Sodium (Warfarin Sodium 2 Mg Tablet) 2 mg PO DAILY@1800 [facility] Labs 02/14/25 06:55 02/14/25 06:55 Labs: Laboratory Results - last 24 hr 02/13/25 02/13/25 02/13/25 09:19 09:25 10:00 MCV 90.6 MCH 30.8 MCHC 34.0 RDW 13.9 Plt Count 136 L D MPV 11.2 Immature Gran % (Auto) 0.6 H Neut % (Auto) 90.0 H Lymph % (Auto) 2.9 L [place] % (Auto) 6.3 Eos % (Auto) 0.0 Baso % (Auto) 0.2 Lymph # (Auto) 0.4 L [place] # (Auto) 0.9 Eos # (Auto) 0.0 Baso # (Auto) 0.0 Abs Immat Gran (auto) 0.08 H Absolute Neuts (auto) 12.7 H Absolute Nucleated RBC 0.000 Nucleated RBC % (auto) 0.0 Smear Tech's Comments PT 33.1 H INR 2.9 H VBG pH 7.49 H VBG pCO2 36 VBG pO2 88 VBG HCO3 28 H VBG O2 Saturation 99.0 VBG Base Excess 4.9 Anion Gap 13 Estim Creat Clear Calc 44.9 Estimated GFR 55 POC Glucose Random Glucose 274 H Calcium 9.5 Magnesium 1.4 L* Total Bilirubin 0.9 AST 25 ALT 14 Alkaline Phosphatase 114 Total Creatine Kinase 241 H Total Protein 7.7 Albumin 4.0 25-OH Vitamin D Total Urine Color Yellow Urine Appearance Cloudy Urine pH 6.5 Ur Specific [place] 1.015 Urine Protein 300 (3+) H Urine Glucose (UA) 100 H Urine Ketones Negative Urine Blood Large (3+) H Urine Nitrite Negative Ur Leukocyte Esterase Large (3+) H Urine RBC 6-10 H Urine WBC >50 H Urine WBC Clumps Present Ur Squamous Epith Cells 0-2 Urine Bacteria 4+ Hyaline Casts 3-5 Urine Yeast Present Influenza Type A (PCR) NEGATIVE Influenza Type B (PCR) NEGATIVE RSV RNA Qual (PCR) NEGATIVE SARS-CoV-2 RNA (RT-PCR) NEGATIVE 02/13/25 02/13/25 02/13/25 16:40 19:58 20:41 MCV MCH MCHC RDW Plt Count MPV Immature Gran % (Auto) Neut % (Auto) Lymph % (Auto) [place] % (Auto) Eos % (Auto) Baso % (Auto) Lymph # (Auto) [place] # (Auto) Eos # (Auto) Baso # (Auto) Abs Immat Gran (auto) Absolute Neuts (auto) Absolute Nucleated RBC Nucleated RBC % (auto) Smear Tech's Comments PT INR VBG pH VBG pCO2 VBG pO2 VBG HCO3 VBG O2 Saturation VBG Base Excess Anion Gap Estim Creat Clear Calc Estimated GFR POC Glucose 217 H 221 H Random Glucose Calcium Magnesium 2.2 Total Bilirubin AST ALT Alkaline Phosphatase Total Creatine Kinase Total Protein Albumin 25-OH Vitamin D Total Urine Color Urine Appearance Urine pH Ur Specific [place] Urine Protein Urine Glucose (UA) Urine Ketones Urine Blood Urine Nitrite Ur Leukocyte Esterase Urine RBC Urine WBC Urine WBC Clumps Ur Squamous Epith Cells Urine Bacteria Hyaline Casts Urine Yeast Influenza Type A (PCR) Influenza Type B (PCR) RSV RNA Qual (PCR) SARS-CoV-2 RNA (RT-PCR) 02/14/25 02/14/25 06:55 06:57 MCV 92.7 MCH 30.6 MCHC 33.1 RDW 14.2 Plt Count 120 L MPV 11.4 Immature Gran % (Auto) 0.5 H Neut % (Auto) 76.3 H Lymph % (Auto) 15.5 L [place] % (Auto) 5.2 Eos % (Auto) 2.2 Baso % (Auto) 0.3 Lymph # (Auto) 2.0 [place] # (Auto) 0.7 Eos # (Auto) 0.3 Baso # (Auto) 0.0 Abs Immat Gran (auto) 0.07 H Absolute Neuts (auto) 9.9 H Absolute Nucleated RBC 0.000 Nucleated RBC % (auto) 0.0 Smear Tech's Comments VERIFIED PT 31.8 H INR 2.8 H VBG pH VBG pCO2 VBG pO2 VBG HCO3 VBG O2 Saturation VBG Base Excess Anion Gap 12 Estim Creat Clear Calc 43.9 Estimated GFR 54 POC Glucose 169 H Random Glucose 179 H Calcium 9.5 Magnesium 2.0 Total Bilirubin AST ALT Alkaline Phosphatase Total Creatine Kinase Total Protein Albumin 25-OH Vitamin D Total 36.7 Urine Color Urine Appearance Urine pH Ur Specific [place] Urine Protein Urine Glucose (UA) Urine Ketones Urine Blood Urine Nitrite Ur Leukocyte Esterase Urine RBC Urine WBC Urine WBC Clumps Ur Squamous Epith Cells Urine Bacteria Hyaline Casts Urine Yeast Influenza Type A (PCR) Influenza Type B (PCR) RSV RNA Qual (PCR) SARS-CoV-2 RNA (RT-PCR) Assessment and Plan (1) Urinary tract infection: Status: Acute (2) Fall: Status: Acute Plan 89 y/o F with multiple issues came frrom home with fall, and found ot have UTI Urinary tract infection IV ceftriaxone 02/13 follow cultures Prolonged QT in the setting of hypokalemia and hypomagnesemia. corrected K and mag normal now. Will repeat ECG. s/p fall. Fall precautions. Physical therapy. Type 2 diabetes mellitus Lantus, SSI and ADA diet glucose check per protocol Hypothyroidism Continue levothyroxine. Mood disorder. Continue sertraline. Essential hypertension. Continue metoprolol. History of VTE. s/p IVF filter placement. INR is 2.9, goal 2 to 3 coumadin Hyperlipidemia. Continue statin. Parox AFIB/flutter Metoprolol and coumadin HFrEF, 40-45%. compensated Chronic oxygen since september after PNA. Hx of CVA/CAD. Continue warfarin and statin. DVT prophylaxis: Warfarin Code status: Full PT eval before discharge Quality Stroke Does the patient have a stroke diagnosis?: No VTE Prior VTE?: No VTE Risk Level:: Medical - moderate - high VTE Device Contraindication: Treatment Not Indicated VTE Drug Contraindication: N/A - Med Ordered
[2025-02-14] MEDS: Fluticasone/Vilanterol 200/25 BLST.W.DEV 1 PUFF INHALE ×2 (08:10→19:16)
[2025-02-14] MEDS: Metoprolol Tartrate 12.5 MG HALFTAB PO ×2 (09:14→19:36)
[2025-02-14] MEDS: Insulin Glargine,Hum.rec.anlog 100 UNIT/ML 10 ML VIAL 26 UNIT SUBCUT (09:14)
[2025-02-14] MEDS: 0.9 % Sodium Chloride Flush 3 ML SYRINGE IVFLUSH ×3 (09:15→19:38)
--- NOTE | 2025-02-14 09:55 | MHC.CM.PN ---
IMM 02/14/25, CM MET W/PT VIA STRATEGIC ALLIANCES MANAGER, PT'S SON/HCP BRIAN ALSO AT BEDSIDE AND EXPANDED ON SOME QUESTIONS. 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 PCP/HCP ON FILE VERIFIED.
[2025-02-14 11:19] LABS: Glucose, Whole Blood 343 mg/dL (60-115)
[2025-02-14 16:19] LABS: Glucose, Whole Blood 185 mg/dL (60-115)
[2025-02-14 20:44] LABS: Glucose, Whole Blood 214 mg/dL (60-115)
[2025-02-15 04:00] VITALS: BP 159/70; PULSE 69; RESP 16; TEMP 37.1
[2025-02-15 07:41] LABS: INTERNATIONAL NORM RATIO 1.9 (0.9-1.1); Prothrombin Time 21.5 SEC (10.9-12.4)
[2025-02-15 07:57] LABS: Glucose, Whole Blood 166 mg/dL (60-115)
[2025-02-15 08:00] VITALS: BP 140/61; PULSE 71; RESP 18; TEMP 36.2; O2SAT 97
[2025-02-15] MEDS: Fluticasone/Vilanterol 200/25 BLST.W.DEV 1 PUFF INHALE (08:02)
[2025-02-15 08:04] VITALS: PULSE 70; RESP 20; O2SAT 96
[2025-02-15] MEDS: Insulin Glargine,Hum.rec.anlog 100 UNIT/ML 10 ML VIAL 26 UNIT SUBCUT (08:32)
[2025-02-15] MEDS: Metoprolol Tartrate 12.5 MG HALFTAB PO (08:34)
[2025-02-15] MEDS: 0.9 % Sodium Chloride Flush 3 ML SYRINGE IVFLUSH (08:37)
--- NOTE | 2025-02-15 09:47 | P.DS_ITS ---
DS: Providers Provider Date of Service: 02/15/25 Date of admission: 02/13/25 12:28 Date of discharge: 02/15/25 Primary care physician: Valeri Lerner DO DS: Diagnosis Discharge Diagnosis (1) Urinary tract infection: Status: Acute (2) Fall: Status: Acute DS: Summary Hospital Course Hospital Course: History and physical as per admitting provider. Nikky Morgan is 89 years old woman with past medical history significant for type 2 diabetes mellitus, CHF, chronic use of oxygen as needed, hypothyroidism, essential hypertension, paroxysmal atrial fibrillation and DVT on warfarin (s/p IVC filter placement) after patient was found on the floor today. Patient stated she fell last night after slipped with her urine. She fell on her buttock. Denied head trauma. She denied any symptoms such as headache, loss of consciousness, dizziness, chest pain, shortness of breath, abdominal pain, nausea, fever, chills. vomiting or diarrhea. She does complain of pain with urination and increased urinary frequency. She is a former tobacco smoking, quit over 40 years ago. Denied alcohol abuse or illicit drug use. Patient was found in the floor by her son after a wellness check. In the ED, she was found to have stable vital signs. She is currently on 3-4 L/min supplemental oxygen via nasal cannula. Blood workup is remarkable for leukocytosis 14.1. Hemoglobin is 12.1 and platelets 136. INR is 2.9. PH is 7.49, pCO2 36 and HC03 28. There is hypokalemia of 3.1 and hypomagnesemia 1.4. There are no other electrolyte imbalances. Renal function and LFTs are normal. CPK is 241. Urinalysis is remarkable for proteinuria and finding consistent with urinary tract infection including hematuria. Viral testing for COVID-19, influenza and RSV is negative. Head, C-spine, head and lumbar spine CT scan showed no acute fractures or findings. Lumbar spine showed stable chronic moderate superior endplate fracture of L2, CP PD arthropathy and abutment spinous process of L2-3, L3-4 and L4 -5. ECG showed A-flutter, rate 90 beats per minute and prolonged QT 548 milliseconds acute ischemic changes. ED tx: Magnesium sulfate 2 g IV, KCl IV and ceftriaxone 1 g IV. Ecoli Urinary tract infection, treated with IV ceftriaxone . continue ceftin for 3 more days Prolonged QT in the setting of hypokalemia and hypomagnesemia. corrected K and mag normal now. Will repeat ECG. s/p fall. Fall precautions. Physical therapy> Home with services Type 2 diabetes mellitus, Lantus, SSI and ADA diet. continue home medications Hypothyroidism. Continue levothyroxine. Mood disorder. Continue sertraline. Essential hypertension. Continue metoprolol. History of VTE. s/p IVF filter placement. coumadin Hyperlipidemia. Continue statin. Parox AFIB/flutter. Metoprolol and coumadin HFrEF, 40-45%. compensated Chronic oxygen since september after PNA. Hx of CVA/CAD. Continue warfarin and statin. Time Attestation Discharge Coordination Time (in mins): 42 Quality: Safe Use of Opioids Does Pt have an Active Cancer Diagnosis on the Problem List?: No Quality: Stroke Does the patient have a stroke diagnosis?: No Physical Exam Exam: Exam: Appearing in no acute distress head is normocephalic atraumatic eyes pupils are PERRLA sclera is anicteric mouth throat mucous membranes are intact and moist neck is supple no lymphadenopathy, no JVD noted lung sounds are clear to auscultation heart regular rate rhythm, clear S1, S2 positive bowel sounds, abdomen is soft, nontender neuro patient is alert x3, no focal deficits Vital Signs: Vital Signs: Last Vital Signs Temp 97.1 F 02/15/25 08:00 Pulse 70 02/15/25 08:04 Resp 20 02/15/25 08:04 BP 140/61 H 02/15/25 08:00 Pulse Ox 97 02/15/25 08:00 O2 Del Method Nasal Cannula 02/15/25 08:00 O2 Flow Rate 2 02/15/25 08:00 Oxygen Flow Rate 4 02/13/25 09:11 BMI result Body Mass Index 35.9 DS: Data Data Completed and Pending Labs on day of discharge: Laboratory Results - last 24 hr 02/14/25 02/14/25 02/14/25 11:15 16:13 20:34 Hold Purple Top PT INR POC Glucose 343 H 185 H 214 H 02/15/25 02/15/25 07:00 07:45 Hold Purple Top SEE NOTE PT 21.5 H D INR 1.9 H POC Glucose 166 H Discharge Plan Discharge Anticipated Discharge Date/Time: 02/15/25 09:40 Patient Disposition: Home Health Service Discharge Diagnosis: Ecoli UTI Fall Referrals: Valeri Lerner DO [Primary Care Provider, Internal Medicine] - 1 Week Discharge Medications: New cefuroxime axetil 500 mg tablet 500 mg PO BID Qty: 6 0RF Continued acetaminophen 650 mg Tablet Extended Release 650 mg PO Q8H PRN (Reason: Pain/Fever) loratadine 10 mg Tablet 10 mg PO DAILY PRN (Reason: Allergy Symptoms) ciclopirox 0.77 % cream 1 appl topical BID Rx Instructions: apply to feet and toes solifenacin 10 mg tablet 10 mg PO DAILY Ozempic 0.25 mg or 0.5 mg (2 mg/3 mL) pen injector 0.5 mg subcut FR furosemide 20 mg tablet 60 mg PO DAILY insulin glargine [Lantus Solostar U-100 Insulin] 100 unit/mL (3 mL) insulin pen 26 unit subcut DAILY warfarin 4 mg tablet 4 mg PO DAILY@1800 Rx Instructions: TAKE 1 TO 2 TABLETS DAILY DIRECTED PER [facility]ADIN CLINIC polyethylene glycol 3350 17 gram Powder In Packet 17 g PO DAILY Qty: 7 0RF cetirizine 10 mg tablet 5 mg PO DAILY fluticasone propion-salmeterol [Wixela Inhub] 500-50 mcg/dose blister with device 1 ea INHALATION BID metformin 500 mg tablet extended release 24 hr 500 mg PO BIDWM Tab-A-Judith Multivitamin w-iron 15 mg iron- 400 mcg tablet 1 tab PO DAILY (DME) pen needle, diabetic 32 gauge x 5/32 needle See Rx Instructions .ROUTE .MEDSUPPLY Qty: 50 Rx Instructions: As directed cholecalciferol (vitamin D3) 50 mcg (2,000 unit) tablet 50 mcg PO DAILY sertraline 50 mg tablet 50 mg PO DAILY fluticasone propionate 50 mcg/actuation spray,suspension 2 spray intranasal DAILY omeprazole 20 mg capsule,delayed release(DR/EC) 20 mg PO BID@0630,1630 levothyroxine 100 mcg tablet 100 mcg PO DAILY@0600 (DME) lancets Misc See Rx Instructions .ROUTE .MEDSUPPLY Qty: 100 Rx Instructions: As directed (DME) blood sugar diagnostic Strip See Rx Instructions Not Applicable BID Qty: 10 Rx Instructions: As directed atorvastatin 20 mg tablet 20 mg PO BEDTIME metoprolol tartrate 25 mg tablet 12.5 mg PO BID (DME) Sidestream Misc See Rx Instructions .ROUTE DIRECTED Qty: 1 Rx Instructions: As directed docusate sodium 100 mg capsule 100 mg PO BID Discharge Orders: Discharge Order (Routine); Ordered 02/15/25 Ordered By: Joanne Levi Diet: Advance to usual diet Activity on Discharge: As tolerated Stand Alone Forms: Patient Portal Discharge page Print Language: Kiswahili Care Plan Goals: Complete course of antibiotics Health Concerns: Ecoli UTI Fall Plan of Treatment: Follow up with primary care provider as needed Take all medications as prescribed Assessment: See discharge summary
--- NOTE | 2025-02-15 10:12 | MHC.CM.PN ---
Pt is medically cleared for discharge home with resumption of previous [facility], pts son to transport her home today.
[2025-02-15 11:12] LABS: Glucose, Whole Blood 218 mg/dL (60-115)
[2025-02-15 12:00] VITALS: BP 121/56; PULSE 65; RESP 20; TEMP 36.2; O2SAT 92
[2025-02-15 16:00] VITALS: BP 139/61; PULSE 71; RESP 18; TEMP 36.2; O2SAT 95
[2025-02-15 16:13] LABS: Glucose, Whole Blood 167 mg/dL (60-115)
== END 2025-02-15 16:16 | disposition home health service (06) | DRG 690 ==
LOC: HO.ED 12:23 → HO.EDOVER 12:40 → HO.IMC 15:39
PROVIDERS: Internal Medicine; Physician Assistant Medical; Admitting Provider Internal Medicine; Emergency Provider Emergency Medicine; PCP Family Medicine; Visit Provider Nurse Practitioner Acute Care
DX: N39.0 Urinary tract infection, site not specified (principal); I50.22 Chronic systolic (congestive) heart failure; I25.10 Atherosclerotic heart disease of native coronary artery without angina pectoris; E03.9 Hypothyroidism, unspecified; E11.9 Type 2 diabetes mellitus without complications; R94.31 Abnormal electrocardiogram [ECG] [EKG]; E87.6 Hypokalemia; E83.42 Hypomagnesemia; F39 Unspecified mood [affective] disorder; E78.6 Lipoprotein deficiency; I11.0 Hypertensive heart disease with heart failure; I48.0 Paroxysmal atrial fibrillation; B96.20 Unspecified Escherichia coli [E. coli] as the cause of diseases classified elsewhere; W06.XXXA Fall from bed, initial encounter; Z20.822 Contact with and (suspected) exposure to COVID-19; Z86.73 Personal history of transient ischemic attack (TIA), and cerebral infarction without residual deficits; Z86.718 Personal history of other venous thrombosis and embolism; Z99.81 Dependence on supplemental oxygen; Z79.4 Long term (current) use of insulin; Z79.51 Long term (current) use of inhaled steroids; Z79.84 Long term (current) use of oral hypoglycemic drugs; Z79.899 Other long term (current) drug therapy
CPT/HCPCS: 36415; 70450; 71250; 72125; 72131; 80048; 80053; 81001; 82306; 82550; 82803; 82947; 83735; 84132; 85025; 85610; 87086; 87088; 87186; 87637; 93005; 97162; 99222; 99285; J0696; J3475; J3480; J7120

== ENCOUNTER → 2025-02-13 08:57 | Outpatient (BNV) | payer OTHER, SELFPAY | PROVIDERS: Admitting Provider Internal Medicine; Emergency Provider Emergency Medicine; PCP Family Medicine; Visit Provider Internal Medicine | DX: R94.31 Abnormal electrocardiogram [ECG] [EKG] (principal); R07.9 Chest pain, unspecified | CPT/HCPCS: 93010 ==

== ENCOUNTER → 2025-02-13 08:57 | Outpatient (BNV) | payer OTHER, SELFPAY | PROVIDERS: PCP Family Medicine; Visit Provider Radiology Diagnostic Radiology | DX: R06.02 Shortness of breath (principal); R09.02 Hypoxemia; W19.XXXA Unspecified fall, initial encounter; M47.812 Spondylosis without myelopathy or radiculopathy, cervical region; S32.029A Unspecified fracture of second lumbar vertebra, initial encounter for closed fracture; G93.89 Other specified disorders of brain; G31.9 Degenerative disease of nervous system, unspecified | CPT/HCPCS: 72125 ==

== ENCOUNTER → 2025-02-13 12:28 | Outpatient (BNV) | payer OTHER, SELFPAY | PROVIDERS: Admitting Provider Internal Medicine; Emergency Provider Emergency Medicine; PCP Family Medicine; Visit Provider Internal Medicine | DX: N39.0 Urinary tract infection, site not specified (principal); R31.9 Hematuria, unspecified; W19.XXXA Unspecified fall, initial encounter | CPT/HCPCS: 99223; 99232; 99239 ==

== ENCOUNTER 2025-03-07 14:53 | Outpatient (REF) | payer OTHER, SELFPAY ==
--- OUTSIDE RECORDS SUMMARY | 2024-11-22 09:30 | XMS_ITS ---
Author Organization [facility] Address [address] [place] [address] Care Team Providers Care Test Skein Winder Name Role Phone Valeri Lerner Primary Care Provider UnavailKeenan Dalton Unavailable [phone] Archuleta Encounters Encounter Location Date Provider Diagnosis [address] [address] 11/22/2024 Keenan Dyer Plan Of Treatment Next Appt Details Provider Name:Keenan Dyer , 04/18/2025 01:00:00 PM, [address] [place] [address], [phone], Progress Notes * Anna WOODCoraB:[birth year] (89 yo F)Acc No.[id number]:11/22/2024 Progress Note Patient: Nikky SINGH Provider: Gabbi Dyer DPM :1935 A ge:89 Y S ex:Female Date:11/22/2024 Address:[address] [place] [phone] Pcp:Valeri Lerner Subjective: * Chief Complaints: * [...] 0 11/22/2024 Generated for Tray López on: 0 03/07/2025 12:15 PM EDT
--- OUTSIDE RECORDS SUMMARY | 2025-03-07 14:55 | XMS_ITS ---
Author Name Mike Radford NP Address [address] [place] [address] Phone [phone] [facility] Care Team Providers Care Sourcing Internship Name Role Phone Mike Radford Unavailable [phone] Unavailable Unavailable Unavailable [facility] Unavailable [phone] Reason for Referral Not Available Allergies, adverse [...] EVERY DAY 2022-01-27 No Data Available Furosemide Tab 60 mg Take 1 tablet daily 2022-02-25 No Data Available Levothyroxine Sodium 100 [...] (=1.5MG) SUBCUTANEOUSLY ONCE A WEEK DIRECTED 2021-10-10 2025-02-18 OneTouch Ultra Strip TEST BLOOD SUGAR TW [...] WITH LANTUS SOLOSTAR AND HUMALOG KWIKPEN 2022-03-16 2025-02-26 Atorvastatin Calcium 20 mg Tab TAKE 1 [...] Data Available Medbox Status USE DIRECTED 2022-06-13 2025-02-26 levoFLOXacin 750 mg Tab TAKE 1 TABLET BY MOUTH EVERY 24 HOURS 2022-09-26 No Data Available Triamcinolone Acetonide 0.1 % Oint APPLY TOPICALLY TWICE DAILY IN THE MORNING AND AT BEDTIME NEEDED FOR RASH 2023-08-23 No Data Available FreeStyle Jason 2 Sensor Miscellaneous USE DIRECTED. CHANGE EVERY 14 DAYS 2023-08-23 2025-02-26 OneTouch Delica Plus Lancing Miscellaneous TEST BLOOD SUGAR THREE TIMES DAILY 2023-08-23 No Data Available Bisacodyl EC 5 mg Tab delaye d rel TAKE 2 TABLETS BY MOUTH EVERY DAY AT BEDTIME FOR 2 DAYS 2023-10-17 2025-02-18 Cephalexin 500 mg Cap TAKE 1 CAPSULE [...] USE DIRECTED WITH LANTUS AND HUMALOG 2024-01-25 2025-02-26 Loratadine 10 mg Tab TAKE 1 TABLET BY MO UTH EVERY MORNING 2024-03-29 No Data Available Benzonatate 100 mg Cap TAKE 1 CAPSULE BY MOUTH THREE TIMES DAILY IN THE MORNING, AT NOON, AND AT BEDTIME NEEDED FOR COUGH FOR 10 DAYS DO NOT BREAK, CRUSH, DISSOLVE OR CHEW 2024-03-29 No Data Available Comfort EZ Pen [place] 32 gauge x 5/32 USE DIRECTED WITH LANTUS AND HUMALOG 2024-01-25 2025-02-26 Ozempic (0.25 or 0.5 mg/DOSE ) 2 mg/3ML Solution Pen-injector INJECT 0.25 MG SUBCUTANEOUSLY EVERY 7 DAYS IN THE ABDOMEN, THIGHS OR UPPER ARM. ROTATE INJECTION SITES. FOR 28 DAYS. THEN INJECT 0.5 MG SUBCUTANEOUSLY EVERY 7 DAYS IN THE ABDOMEN, THIGHS, OR UPPER ARM, ROTATE INJECTION SITES. FOR 28 DAYS 2024-04-26 2025-02-18 Pentips Pen Needle 32 gauge x 5/32 USE DIRECTED WITH LANTUS AND HUMALOG 2024-01-25 2025-02-26 Ciclopirox Olamine 0.77 % Crm APPLY TOPI AVERY TO SKIN OF FEET AND TOES TWICE DAILY DIRECTED 2024-08-16 No Data Available Cetirizine 10 mg Tab TAKE 1/2 TABLET BY MOUTH EVERY MORNING 2024-07-15 2025-02-18 Polyethylene Glycol 3350 17 GM/SCOOP Powder mix 17 grams of powder in 8 ounces of fluid and drink once daily 2024-10-21 No Data Available HumaLOG KwikPen 100 UNIT/ML Solution Pen-injector Subcutaneous inject SC TID per sliding scale 2024-11-22 No Data Available White Petroleum Jelly Gel APPLY TOPICALL Y TO THE AFFECTED AREA(S) EVERY DAY NEEDED FOR DRY SKIN OR IRRITATION 2024-11-22 No Data Available Sulfamethoxazole-Trimethopri m 800/160 mg Tab TAKE 1 TABLET BY MOUTH TWICE DAILY FOR 5 DAYS 2024-11-22 No Data Available PEG-3350/Electrolytes 236 GM Solution MIX DIRECTED AND TAKE 240 ML BY MOUTH EVERY 10 MINUTES UNTIL FECAL EFFLUENT IS CLEAR DO NOT EXCEED 2000 ML 2024-12-17 No Data Available Cefuroxime Axetil 500 mg Tab No Data Available 2025-01 No Data Available Mucinex 600 mg Tab ER 12hr 1 tablet orally BID 2025-01 No Data Available Ozempic (0.25 or 0.5 mg/DOSE ) 2 mg/3ML Solution Pen-injector Subcutaneous 0.5 mg SL weekly 2025-02-18 No Data Availa ble Problem List Problem Status Onset Date Resolved Date Synopsis Atherosclerosis of coronary artery of ramona heart Active 2022-08-30 N/A cont lasix stati n metoprololfu w cardiology Major depressive disorder in partial remission Active 2022-08-30 N/A cont on ser tralinept denies symptoms currentlycont to mtr fcont clonazepam for anxiety/insomnia Hypothyroidism Active 2022-08-30 N/A levothyrox inefu w endomtr tsh History of CVA (cerebrovascular accident) Active 2022-08-30 N/A in 95 cont statin, antihypertensiveson coumadin for afib Anemia in chronic illness Active 2022-08-30 N/A mtr cbc.ferritinno s+s of bleeding paroxysmal atrial fibrillation [...] behavior, difficulty sleeping, or new/worsening depressive symptoms. Morbid obesity due to excess calories Active 2022-08-30 N/A BMI 44.29cont di et and exercisefu w pcpmtr labs Hypertensive heart disease with heart failure Active 2024-05-29 N/A Encourage low sodium diet. Encouraged daily blood pressure [...] feeling wellReport consistent blood pressures readings >140/902/06/24: PEST CONTROL TECHNICIAN reports that in the last couple of days the patient's toes have been pink and sensitive to touch, denies uncontrolled pain to touch. She has an appointment with the day camp counselor on monday for further evaluation.01/28/25: Patient denies BLE edema or dyspnea, denies any acute concerns. COPD (chronic obstructive pulmonary disease) Active 2022-08-15 N/A jhoana cam casonefu w pulmonary01/28/25: Patient denies dyspnea or any other concerns. Incontinence Active 2024-11-22 N/A Incontinence supplies ordered on 11/22 Unsteady gait Active 2024-12-10 N/A PEST CONTROL TECHNICIAN reports that the patient has unsteady gait with walking, requires assistance during ambulation. Hx of falls. Acute hypoxic respiratory failurePneumonia Active 2024-11-22 N/A 11/07/24: Hospit alization 10/21-10/21 for acute hypoxic respiratory failure secondary to pneumonia. Patient presented to cough and shortness of breath. The patient was discharged to a [facility]. In addition, the patient had ER visit 11/05 for aspiration pneumonia. At this time, the patient is home with family and PEST CONTROL TECHNICIAN/VNA care. The patient is currently has a soft diet and increase weakness post hospitalization. Medication reconciled with hospital records, unable to confirm with VNA12/10/24: Cg reports that the patient does not have any acute symptoms, she is 'stable'. She is aware that the patient will continue to steadily decline. Other problems related to medical facilities and other health care Active 2024-05-29 N/A UTI CONTING ENCY PLANLast updated: 02/27/2025[facility] to call for the following symptoms: Dysuria/ Fever/ Urinary frequencyPlanned intervention: Encourage increased fluid intake/ Treat temperature with Tylenol 1gm PO/ Nitrofurantoin 100mg BID x5dCOPD CONTINGENCY PLANLast updated: 11/22/2024[facility] to call for the following symptoms: Exertional dyspnea/ Increased cough / WheezingPlanned intervention: Levofloxacin 500mg daily x 5 daysFALL CONTINGENCY PLANMember to call for the following symptoms: Fall / Pre-syncope/ Refusing to use cane / WeaknessPlanned intervention: Order x-ray at [facility] or local hospital Assess for change in mental status and provide reassurance if none (patient's Baseline is a/o x2) / Review importance of sitting for two to three minutes prior to standing after laying down UTI (urinary tract infection) Active 2025-02-27 N/A 02/15-02/17 hospit alization due to a fall. Dx with a urinary tract infection and treated with an antibiotic. Cg denies any current symptoms or concerns. Encounters Encounters Type Facility Date of Service Diagnosis/Co mplaint New patient,40-59min; chronic exacerbation, 2 stable chronic or 1 acute illness add add modifier 95 for video (do not use for phone, instead use [id number]) [facility] Paroxysmal atrial fibrillationChronic obstructive pulmonary disease, unspecifiedAthscl heart disease of ramona coronary artery w/o ang pctrsType 2 diabetes [...] (do not use for phone, instead use 92810-76) [facility] New patient,40-59min; chronic exacerbation, 2 stable chronic or 1 acute illness add add modifier 95 for video (do not use for phone, instead use [id number]) [facility] New patient,40-59min; chronic exacerbation, 2 stable chronic or 1 acute illness add add modifier 95 for video (do not use for phone, instead use 83217-41) [facility] New patient,40-59min; chronic exacerbation, 2 stable chronic or 1 acute illness add add modifier 95 for video (do not use for phone, instead use 11643-72) [facility] New patient,40-59min; chronic exacerbation, 2 stable chronic or 1 acute illness add add modifier 95 for video (do not use for phone, instead use 03095-89) [facility] New patient,40-59min; chronic exacerbation, 2 stable chronic or 1 acute illness add add modifier 95 for video (do not use for phone, instead use 03223-49) [facility] New patient,40-59min; chronic exacerbation, 2 stable chronic or 1 acute illness add add modifier 95 for video (do not use for phone, instead use 39390-48) [facility] Estab. patient 20-29min; 1 stable chronic or 2 minor; add add modifier 95 for video, modifier 93 for phone [facility] 10[place]03/2022 Pneumonia, unspecified organismSepsis, unspecified organism Estab. patient 20-29min; 1 stable chronic or 2 minor; add add modifier 95 for video, modifier 93 for phone [facility] 10[place]03/2022 Estab. patient 20-29min; 1 stable chronic or 2 minor; add add modifier 95 for video, modifier 93 for phone [facility] 10/03/2022 Estab. patient 20-29min; 1 stable chronic or 2 minor; add add modifier 95 for video, modifier 93 for phone [facility] 10/03/2022 Estab. patient 20-29min; 1 stable chronic or 2 minor; add add modifier 95 for video, modifier 93 for phone [facility] 10/03/2022 Estab. patient 20-29min; 1 stable chronic or 2 minor; add add modifier 95 for video, modifier 93 for phone [facility] 10[place]03/2022 Estab. patient 30-39min; chronic exacerbation, 2 stable chronic or 1 acute illness add add modifier 95 for video, (do not use for phone, instead use 16718-20) [facility] 05[place]2024 Paroxysmal atrial fibrillationOther thrombophiliaHypertensive heart disease with heart failureMorbid (severe) obesity due to excess caloriesSecondary hyperaldosteronismChronic obstructive pulmonary disease, unspecifiedHeart failure, unspecifiedMajor depressive disorder, single episode, in partial remissionType 2 diabetes mellitus with other specified complicationHypothyroidism, unspecifiedHyperlipidemia, unspecifiedAthscl heart disease of ramona coronary artery w/o ang pctrsAnemia in other chronic diseases classified elsewhereGeneralized anxiety disorderBody mass index (BMI) 40.0-44.9, adultPrsnl hx of TIA (TIA), and cereb infrc w/o resid deficitsOther problems related to medical facilities and other health care Estab. patient 30-39min; chronic exacerbation, 2 stable chronic or 1 acute illness add add modifier 95 for video, (do not use for phone, instead use 04253-11) [facility] ([place]) 05[place]28/20[place] Estab. patient 30-39min; chronic exacerbation, 2 stable chronic or 1 acute illness add add modifier 95 for video, (do not use for phone, instead use 18028-10) [facility] 05[place]28/20[place] Estab. patient 30-39min; chronic exacerbation, 2 stable chronic or 1 acute illness add add modifier 95 for video, (do not use for phone, instead use 21033-26) [facility] 05[place]/20[place] Estab. patient 30-39min; chronic exacerbation, 2 stable chronic or 1 acute illness add add modifier 95 for video, (do not use for phone, instead use 97376-57) [facility] 05[place]/20[place] Estab. patient 30-39min; chronic exacerbation, 2 stable chronic or 1 acute illness add add modifier 95 for video, (do not use for phone, instead use 24423-10) [facility] 05[place]28/20[place] Estab. patient 30-39min; chronic exacerbation, 2 stable chronic or 1 acute illness add add modifier 95 for video, (do not use for phone, instead use 85177-28) [facility] 05[place]28/20[place] Estab. patient 30-39min; chronic exacerbation, 2 stable chronic or 1 acute illness add add modifier 95 for video, (do not use for phone, instead use 31696-32) [facility] 05[place]/20[place] Estab. patient 30-39min; chronic exacerbation, 2 stable chronic or 1 acute illness add add modifier 95 for video, (do not use for phone, instead use 08890-72) [facility] 05[place]/20[place] Estab. patient 30-39min; chronic exacerbation, 2 stable chronic or 1 acute illness add add modifier 95 for video, (do not use for phone, instead use 09757-45) [facility] 05[place]/20[place] Estab. patient 30-39min; chronic exacerbation, 2 stable chronic or 1 acute illness add add modifier 95 for video, (do not use for phone, instead use 78366-02) [facility] Estab. patient 10-29min; 1 minor problem; add add modifier 95 for video, modifier 93 for phone [facility]2024 Heart failure, unspecifiedSecondary hyperaldosteronismOther problems related to medical facilities and other health care Estab. patient 10-29min; 1 minor problem; add add modifier 95 for video, modifier 93 for phone [facility] 10[place]10[place]2024 Chronic obstructive pulmonar y disease, unspecifiedHypertensive heart disease with heart failureHeart failure, unspecified Estab. patient 10-29min; 1 minor problem; add add modifier 95 for video, modifier 93 for phone [facility]07/2024 Acute respiratory failure wi th hypoxiaChronic obstructive pulmonary disease, unspecifiedPneumonia, unspecified organismUnspecified urinary incontinenceOther problems related to medical facilities and other health care Estab. patient 10-29min; 1 minor problem; add add modifier 95 for video, modifier 93 for phone [facility] 11/07/20[place] Estab. patient 10-29min; 1 minor problem; add add modifier 95 for video, modifier 93 for phone [facility] [place] 11/07/20[place] Estab. patient 10-29min; 1 minor problem; add add modifier 95 for video, modifier 93 for phone [facility] [place] 11/07/2024 Estab. patient 10-29min; 1 minor problem; add add modifier 95 for video, modifier 93 for phone [facility] 12[place]10/2024 Acute respiratory failure wi th hypoxiaPneumonia, unspecified organismUnsteadiness on feetOther problems related to medical facilities and other health care Estab. patient 10-29min; 1 minor problem; add add modifier 95 for video, modifier 93 for phone [facility] 01/[place]/2025 Heart failure, unspecifiedSecondary hyperaldosteronismChronic obstructive pulmonary disease, unspecifiedOther problems related to medical facilities and other health care RN, CN or CP time with patient by phone; use with 1111F, BP, A1c or other CPTII codes [facility] 02/18/2025 Encounter for other specifie d aftercare RN, CN or CP time with patient by phone; use with 1111F, BP, A1c or other CPTII codes [facility] 02/18/2025 Estab. patient 10-29min; 1 minor problem; add add modifier 95 for video, modifier 93 for phone [facility] 02/27/2025 Urinary tract infection, sit e not specifiedOther problems related to medical facilities and other health care Estab. patient 10-29min; 1 minor problem; add add modifier 95 for video, modifier 93 for phone [facility] 02/27/2025 Estab. patient 10-29min; 1 minor problem; add add modifier 95 for video, modifier 93 for phone [facility] [place] 02/27/2025 Estab. patient 10-29min; 1 minor problem; add add modifier 95 for video, modifier 93 for phone [facility] [place] 02/27/2025 Vital Signs Date of Collection Vitals 2022-08-25 [...] tive Time Current Smoking Status Former smoker 8 Sex Female Gender identity Woman History of Procedures Procedures Service Procedure code Service date Servicing provider Phone# New patient,40-59min; chronic exacerbation, 2 stable chronic or 1 acute illness add add modifier 95 for video (do not use for phone, instead use 67945-09) [id number] 2022-08-25 No Data Available No Data Availa [...] 95 for video, modifier 93 for phone [id number] 2022-10-03 No Data Available No Data Availa [...] (do not use for phone, instead use 63244-54) [id number] 2024-05-28 No Data Available No Data Availa [...] 95 for video, modifier 93 for phone 23589 2024-09-10 No Data Available No Data Availa ble Estab. patient 10-29min; 1 minor problem; add add modifier 95 for video, modifier 93 for phone [id number] 2024-10-10 No Data Available No Data Availa ble Estab. patient 10-29min; 1 minor problem; add add modifier 95 for video, modifier 93 for phone [id number] 2024-11-07 No Data Available No Data Availa [...] 95 for video, modifier 93 for phone [id number] 2024-12-10 No Data Available No Data Availa ble Estab. patient 10-29min; 1 minor problem; add add modifier 95 for video, modifier 93 for phone [id number] 2025-01-28 No Data Available No Data Availa ble RN, CN or CP time with patient by phone; use with 1111F, BP, A1c or other CPTII codes 81011 2025-02-18 No Data Available No Data Avai lable Medications prescribed in hospital were reviewed and reconciled against what they were taking prior to admission during today's visit. (1111F) 1111F 2025-02-18 No Data Available No Data Availa ble Estab. patient 10-29min; 1 minor problem; add add modifier 95 for video, modifier 93 for phone [id number] 2025-02-27 No Data Available No Data Availa ble Medications prescribed in hospital were reviewed and reconciled against what they were taking prior to admission during today's visit. (1111F) 1111F 2025-02-27 No Data Available No Data Availa ble Advance care planning discussed and documented advance care plan or surrogate decision-maker was documented in the medical record. (1123F) 1123F 2025-02-27 No Data Available No Data Availa ble Medication List Documented (1159F) [id number] 2025-02-27 No Data Available No Data Keily ilable Functional Status Functional Category Effective Dates ADL: [...] obstructive pulmonary disease)Atherosclerosis of coronary artery of ramona heartType 2 diabetes mellitus with hyperlipidemiaMajor depressive disorder in partial remissionHypothyroidismMorbid obesity due to excess caloriesHistory of CVA (cerebrovascular accident)Anemia in chronic illness 2022-10-03 07:05:20 Patient Education to avoid future hospitalization: Call [facility] if symptoms of illness develop.Sepsis due to pneumonia 2024-05-28 07:45:46 paroxysmal atrial fi brillation and Hypercoagulability due to atrial fibrillationCOPD (chronic obstructive pulmonary disease)Atherosclerosis of coronary artery of ramona heartType 2 diabetes mellitus with hyperlipidemiaMajor depressive [...] to medical facilities and other health care 2025-02-27 11:50:22 UTI (urinary tract i nfection)Other problems related to medical facilities and other [...] modifier 95Continue to see PCP. [facility] or disease education needs that may arise.continues on coumadinmtr INRsmtr for any s+s of bleedingmetoprolol for rate controladvair, fluticasonefu w pulmonarycont lasix statin metoprololfu w cardiologycont humalog, lantus, metformin, trulicty a1c 7.7, cont to mtrada dietcont simvastatin and mtr lipids fu w endocrinecont on sertralinept denies symptoms currentlycont to [facility] fcont clonazepam for anxiety/insomnialevothyroxinefu w endomtr tshBMI [...] 80-89 (3079F)Continue to see PCP. Follow-up with [facility] as needed for any acute or disease [...] may arise 20/02.HEART FAILURE CONTINGENCY PLANLast updated: 05/29/2024[facility] to call for the following symptoms: BP [...] feeling wellReport consistent blood pressures readings >140/902/06/24: PEST CONTROL TECHNICIAN reports that in the last couple of days the patient's toes have been pink and sensitive to touch, denies uncontrolled pain to touch. She has an appointment with the day camp counselor on monday for further evaluation. 2024-10-10 06:15:41 Estab. patient 10-29 min; 1 minor problem; add add modifier 95 for video, modifier 93 for phoneContinue to see PCP. Follow-up with [facility] as needed for any acute or disease education needs that may arise 20/02.advair, fluticasonefu w pulmonary10/10/24: Patient denies dyspnea or any other concerns.Encourage low sodium diet. Encouraged daily blood pressure checks and tracking. Instructed patient to notify CB or PCP if blood pressure >140/90 or <90/50.HEART FAILURE CONTINGENCY PLANLast updated: 05/29/2024[facility] to call for the following symptoms: BP [...] breath. The patient was discharged to a [facility]. In addition, the patient had ER visit 11/05 for aspiration pneumonia. At this time, the patient is home with family and PEST CONTROL TECHNICIAN/VNA care. The patient is currently has a soft diet and increase weakness post hospitalization. Medication reconciled with hospital records, unable to confirm with VNAHEART FAILURE CONTINGENCY PLANLast updated: 05/29/2024[facility] to call for the following symptoms: BP <100/60 / BP >180/100 / Edema/ Exertional dyspnea/ Weight gain or lossPlanned intervention: Increase furosemide (Lasix) to 60 mg for 3 days/ Wrap legs with Mohan wrap/ Put on compression stockings/ Eat lower sodium foods/ Take medication every single dayCOPD CONTINGENCY PLANLast updated: 11/22/2024[facility] to call for the following symptoms: Exertional [...] or disease education needs that may arise 20/02.PEST CONTROL TECHNICIAN reports that the patient has unsteady gait with walking, requires assistance during ambulation. Hx of falls.11/07/24: Hospitalization 10/21-10/21 for acute hypoxic respiratory failure secondary to pneumonia. Patient presented to cough and shortness of breath. The patient was discharged to a [facility]. In addition, the patient had ER visit 11/05 for aspiration pneumonia. At this time, the patient is home with family and PEST CONTROL TECHNICIAN/VNA care. The patient is currently has a soft diet and increase weakness post hospitalization. Medication reconciled with hospital records, unable to confirm with VNA12/10/24: Cg reports that the patient does not have any acute symptoms, she is 'stable'. She is aware that the patient will continue to steadily decline.HEART FAILURE CONTINGENCY PLANLast updated: 05/29/2024[facility] to call for the following symptoms: BP <100/60 / BP >180/100 / Edema/ Exertional dyspnea/ Weight gain or lossPlanned intervention: Increase furosemide (Lasix) to 60 mg for 3 days/ Wrap legs with Mohan wrap/ Put on compression stockings/ Eat lower sodium foods/ Take medication every single dayCOPD CONTINGENCY PLANLast updated: 11/22/2024[facility] to call for the following symptoms: Exertional dyspnea/ Increased cough / WheezingPlanned intervention: Levofloxacin 500mg daily x 5 daysFALL CONTINGENCY PLANMember to call for the following symptoms: Fall / Pre-syncope/ Refusing to use cane / WeaknessPlanned intervention: Order x-ray at [facility] or local hospital Assess for change in [...] feeling wellReport consistent blood pressures readings >140/902/06/24: PEST CONTROL TECHNICIAN reports that in the last couple of days the patient's toes have been pink and sensitive to touch, denies uncontrolled pain to touch. She has an appointment with the day camp counselor on monday for further evaluation.01/28/25: Patient denies BLE edema or dyspnea, denies any acute concerns.advair, fluticasonefu w pulmonary01/28/25: Patient denies dyspnea or any other concerns.HEART FAILURE CONTINGENCY PLANLast updated: 05/29/2024[facility] to call for the following symptoms: BP <100/60 / BP >180/100 / Edema/ Exertional dyspnea/ Weight gain or lossPlanned intervention: Increase furosemide (Lasix) to 60 mg for 3 days/ Wrap legs with Mohan wrap/ Put on compression stockings/ Eat lower sodium foods/ Take medication every single dayCOPD CONTINGENCY PLANLast updated: 11/22/2024[facility] to call for the following symptoms: Exertional dyspnea/ Increased cough / WheezingPlanned intervention: Levofloxacin 500mg daily x 5 daysFALL CONTINGENCY PLANMember to call for the following symptoms: Fall / Pre-syncope/ Refusing to use cane / WeaknessPlanned intervention: Order x-ray at [facility] or local hospital Assess for change in mental status and provide reassurance if none (patient's Baseline is a/o x2) / Review importance of sitting for two to three minutes prior to standing after laying down 2025-02-18 08:40:33 Feb 27, 2025, 11:00 AM 2025-02-27 11:50:22 Discharge medication s reconciled with current medication listAdvance care planning discussed and documented advance care plan or surrogate decision-maker was documented in the medical record. ([id number])Estab. patient 10-29min; 1 minor problem; add add modifier 95 for video, modifier 93 for phoneContinue to see PCP. Follow-up with [facility] as needed for any acute or disease education needs that may arise.02/15-02/17 hospitalization due to a fall. Dx with a urinary tract infection and treated with an antibiotic. Cg denies any current symptoms or concerns.UTI CONTINGENCY PLANLast updated: 02/27/2025[facility] to call for the following symptoms: Dysuria/ Fever/ Urinary frequencyPlanned intervention: Encourage increased fluid intake/ Treat temperature with Tylenol 1gm PO/ Nitrofurantoin 100mg BID x5dCOPD CONTINGENCY PLANLast updated: 11/22/2024[facility] to call for the following symptoms: Exertional dyspnea/ Increased cough / WheezingPlanned intervention: Levofloxacin 500mg daily x 5 daysFALL CONTINGENCY PLANMember to call for the following symptoms: Fall / Pre-syncope/ Refusing to use cane / WeaknessPlanned intervention: Order x-ray at [facility] or local hospital Assess for change in [...] PCP and Specialist. Health Concerns Date Concern 2025-02-27 Patient/Guardian agr eed to visit via telehealth.Visit completed via:[ ] audio and video; [x] audio only 2025-02-27 Hospitalization Summ aryAdmit date: 02/15Discharge date: 02/17Reason for hospitalization: Post fallSummary of hospital course: Dx with UTI and treated with abx, work up negative for fxCurrent issues/current symptoms/outstanding follow-up needs: Cg deniesPCP Follow-Up: N/A
--- OUTSIDE RECORDS SUMMARY | 2025-03-07 14:56 | XMS_ITS | Patient Health Record ---
Author Organization [facility] Address [address] [place] [address] Care Team Providers Care Child And Adolescent Psychiatrist Name Role Phone Tyler Garsia Unavailable [phone] Reason For Referral No Information Plan Of Treatment No Information
--- OUTSIDE RECORDS SUMMARY | 2025-03-07 14:56 | XMS_ITS | Encounter Summary ---
Author Organization [facility] Address [id number] [place] [id number] Care Team Providers Care Charge Account Identification Clerk Name Role Phone Valeri Lerner DO Primary Care Provider [phone]- [phone] Encounter Details Date Type Department Care Team (Late st Contact Info) Description 11/01/2024 Lab Requisition [facility] [address] [facility] [place] [address] Amrita Polanco MD [address] [place] [id number] Heart failure, unspecified (CMS/HCC V24, CMS/HCC V28) [...] sec LAB COAGULATION METHOD 11/01/2024 9:58 AM [facility] INR 1.2 LAB COAGULATION METHOD 11/01/2024 9:58 AM [facility] Blood Venous blood specimen / Unknown Venipuncture / Unknown 11/01/2024 6:48 AM EDT 11/01/2024 9:35 AM EDT us Amrita Polanco MD LAB BLOOD ORDERABLES Final Resu lt [facility] ([facility]) [facility] [address] [place] [address], documented in this encounter Visit Diagnoses Diagnosis Heart failure, unspecified (CMS/HCC V24, CMS/HCC V28) Heart failure, unspecified documented in this encounter Care Teams Charge Account Identification Clerk Relationship Specialty Start Date End Date Valeri Lerner DO [address] [place] [address] PCP - General 11/15/14 documented as of this encounter
[2025-03-07 18:22] LABS: Alanine Aminotransferase 16 U/L (0-31); Albumin Level 4.0 g/dL (3.5-5.0); Alkaline Phosphatase 120 U/L (39-117); Anion Gap 11 (12-20); Aspartate Amino Transferase 24 U/L (5-31); Blood Urea Nitrogen 14 mg/dL (9-16); Calcium 9.6 mg/dL (8.4-10.2); Carbon Dioxide 32 mmol/L (22-29); Chloride 104 mmol/L (96-108); Estimated Glomerular Filt Rate > 60; Magnesium 1.4 mg/dL (1.6-2.6); Potassium 3.6 mmol/L (3.3-5.1); Sodium 143 mmol/L (135-145); Total Protein 7.7 g/dL (6.5-8.0)
== END 2025-03-07 14:54 | disposition home or self-care (01) ==
LOC: HO.HHCL 14:53
PROVIDERS: Physician Assistant Medical; PCP Family Medicine; Visit Provider Registered Nurse
DX: E83.42 Hypomagnesemia (principal); R93.5 Abnormal findings on diagnostic imaging of other abdominal regions, including retroperitoneum
CPT/HCPCS: 36415; 80053; 83735

== ENCOUNTER → 2025-04-25 10:02 | Outpatient (REF) | payer OTHER, MEDICAID, SELFPAY ==
--- OUTSIDE RECORDS SUMMARY | 2024-11-22 09:30 | XMS_ITS ---
Author Organization [facility] Address [address] [place] [address] Care Team Providers Care Twister Doffer Name Role Phone Valeri Lerner Primary Care Provider UnavailKeenan Dalton Unavailable [phone] Archuleta Encounters Encounter Location Date Provider Diagnosis [address] [address] 11/22/2024 Keenan Dyer Plan Of Treatment Next Appt Details Provider Name:Keenan Dyer , 08/15/2025 12:45:00 PM, [address] [place] [address], [phone], Progress Notes * Anna WOODCoraB:[birth year] (89 yo F)Acc No.[id number]:11/22/2024 Progress Note Patient: Nikky SINGH Provider: Gabbi Dyer DPM :1935 A ge:89 Y S ex:Female Date:11/22/2024 Address:[address] [place] [phone] Pcp:Valeri Lerner Subjective: * Chief Complaints: * [address] Archuleta. * Medical History: Objective: * Vitals: Assessment: Plan: * Treatment: * Images: * The named appointment provid er may or may not be the originator of this progress note, and it is not deemed complete until electronically signed by the appointment provider. Sign off status: Pending * Provider: Gabbi Dyer DPM Date: 11/22/2024 Generated for Tray López on: 04/25/2025 11:13 AM EDT
--- OUTSIDE RECORDS SUMMARY | 2024-12-13 08:45 | XMS_ITS ---
Author Organization [facility] Address [address] [place] [address] Care Team Providers Care Power Ballast Machine Operator Name Role Phone Valeri Lerner Primary Care Provider UnavailKeenan Dalton Unavailable [phone] Archuleta Encounters Encounter Location Date Provider Diagnosis [address] [address] 12/13/2024 Keenan Dyer Plan Of Treatment Next Appt Details Provider Name:Keenan Dyer , 08/15/2025 12:45:00 PM, [address] [place] [address], [phone], Progress Notes * Anna WOODCoraB:[birth year] (89 yo F)Acc No.[id number]:12/13/2024 Progress Note Patient: Nikky SINGH Provider: Gabbi Dyer DPM :1935 A ge:89 Y S ex:Female Date:12/13/2024 Address:[address] [place] [phone] Pcp:Valeri Lerner Subjective: * Chief Complaints: * [...] 12/13/2024 Generated for Tray López on: 0 04/25/2025 11:13 AM EDT
--- NOTE | ~2025-04-25 | NM_ITS ---
Lexiscan Myocardial perfusion study Indication: Elevated troponin Technique: The patient was brought in for a Lexiscan perfusion study on 04/25/2025 and was injected 0.4 mg of Lexiscan intravenously. Within a minute of this injection 30 mCi of sestamibi was given intravenously. Images were obtained using the SPECT gamma camera interlaced with the gating device. Images were obtained in supine position. Resting perfusion study was performed on 05/02/2025. Patient was administered 30 mCi of sestamibi intravenously at rest. Images were then obtained in supine position. Total DLP 151 mGy-cm. Images were processed with the software and compared side to side in short axis, horizontal long axis and vertical long axis views. Findings: Raw aquisition reviewed. Arms by the patient's side. The stress perfusion study showed decreased tracer uptake along the distal part of lateral wall, anterolateral wall and adjacent apex. With CT attenuation correction, the apical defect is more prominent but otherwise improved and hence could be all from soft tissue attenuation artifact. The gated study shows reduced LV systolic function with calculated LVEF of 48%. LV cavity is normal in size. The gated study shows normal wall thickening and contraction of segments. Resting study shows diminished tracer uptake in the distal part of lateral wall. There is improvement with CT attenuation correction and hence could have components of soft tissue attenuation artifact. Gating at rest reveals normal wall motion with ejection fraction at 53%. The findings are consistent with fixed lateral defect probably from soft tissue attenuation correction small apical defect which could relate ischemia. NM/NM cardiolite stress test Impression: 1. Myocardial perfusion imaging study shows possible apical ischemia. 2. Gated LVEF is 48% during stress and 52% during rest. 3. Transient ischemic dilatation not present. EKG component of the test reported separately. Electronically signed by: Kayode Bradshaw MD 05/04/2025 01:22 PM EDT
--- NOTE | 2025-04-25 10:05 | CA_ITS ---
Acquisition Time: 2025-04-25 11:04:38 Total Exercise Time: 00:02:00 Test Indications: ELEVATED TROP Medications: SEE H&P Protocol: LEXISCAN Max HR: 90 BPM 68% of Pred: 131 BPM Max BP: 120/80 mmHG Max Work Load: 1.0 METS Pharmacological stress test with Lexiscan while pt marches in her chair, with reports of feeeling funny , with frequent PVCs, with normotensive response to injection. Nondiagnostic EKG for ischemia. In recovery, pt treated with IVP Aminophylline 75 mg to reverse Lexiscan after which pt feeling back to baseline. Nuclear images pending. Test reviewed with Dr. Blancas. Referred By: Valerie Monroe Electronically Signed By: Js Dias
--- OUTSIDE RECORDS SUMMARY | 2025-04-25 11:12 | XMS_ITS | Clinical Summary ---
Author Organization [employer] Address [address] [place] [address] [address] [place] [address] Care Team Providers Care Molding Utility Worker Name Role Phone Valeri Lerner DO Primary Care Provider [phone] Allergies Active Allergy Reactions Criticality Noted Date [...] each 11 023 Active Continuous Blood Gluc Warehouse Assembly Worker (FastclickStyle Jason 2 [place]) device Scan sensor every 8 hours 1 each 024 Active furosemide (Lasix) 20 MG tablet Take 3 tablets by mouth in the morning. 024 Active fluticasone (Flonase) 50 MCG/ACT nasal sprayIndications: Seasonal allergic rhinitis, unspecified trigger Administer 2 sprays into each nostril Once per day. Shake gently. Before first use, prime pump. After use, clean tip and replace cap. 16 g Active Alcohol Swabs (Alcohol Prep) 70 % pads USE THREE TO FOUR TIMES DAILY 100 each Active cetirizine (ZyrTEC) 10 MG tablet Take 0.5 tablets (5 mg) by mouth Once per day. 15 tablet 2024 Active metFORMIN XR (Glucophage-XR) 500 MG 24 hr tabletIndications :Type 2 diabetes mellitus with hyperglycemia, with long-term current use of insulin (CMS/HCC) TAKE 1 TABLET BY MOUTH TWICE DAILY IN THE MORNING AND IN THE EVENING WITH FOOD 60 tablet Active atorvastatin (Lipitor) 20 MG tabletIndications :Other hyperlipidemia TAKE 1 TABLET BY MOUTH AT BEDTIME 90 tablet 3 Active docusate sodium (Colace) 100 MG capsuleIndication s:Chronic constipation TAKE 1 CAPSULE BY MOUTH TWICE DAILY 180 capsule 3 Active ciclopirox (Loprox) 0.77 % cream APPLY TOPICALLY TO SKIN OF FEET AND TOES TWICE DAILY DIRECTED Active white petrolatum (Vaseline) gelIndications:Ac eastern shoshone cystitis with hematuria Apply topically if needed for dry skin or irritation. 500 g Active omeprazole (PriLOSEC) [address] capsule TAKE 1 CAPSULE BY MOUTH TWICE DAILY IN THE MORNING AND IN THE EVENING WITH FOOD 180 capsule 1 Active levothyroxine (Synthroid, Levoxyl) 100 MCG tablet TAKE 1 TABLET BY MOUTH EVERY MORNING ON AN EMPTY STOMACH 90 tablet 1 Active Continuous Glucose Sensor (FreeStyle Jason 2 [...] time per week. 3 mL 2025 Active metoprolol tartrate (Lopressor) 25 MG tablet TAKE 1/2 TABLET BY MOUTH TWICE DAILY IN THE MORNING AND EVENING 90 tablet 1 Active Pentips Generic Pen Harrison 32G X 4 MM misc USE DIRECTED WITH LANTUS AND HUMALOG 200 each Active sertraline (Zoloft) 50 MG tabletIndications :Depression, unspecified depression type TAKE 1 TABLET BY MOUTH EVERY MORNING 30 tablet Active Fluticasone-Salme terol 500-50 MCG/ACT aerosol powderIndications :Moderate persistent asthma without complication Inhale 1 puff 2 times daily. 60 each Active albuterol 108 (90 Base) MCG/ACT inhalerIndication s:Moderate persistent asthma without complication Inhale 2 puffs every 6 (six) hours if needed for wheezing. 18 g 025 2025 Active albuterol (2.5 MG/3ML) 0.083% nebulizer solutionIndicatio ns:Moderate persistent asthma without complication Take 3 mL (2.5 mg) by nebulization every 6 (six) hours if needed for wheezing. 75 mL 2025 Active magnesium oxide (Mag-Ox) 400 MG tabletIndications :Hypomagnesemia Take 1 tablet (400 mg) by mouth Once per day. 30 tablet 1 025 2025 Active warfarin (Coumadin) 4 MG tabletIndications :Paroxysmal atrial fibrillation (CMS/HCC) TAKE 1 TO 2 TABLETS BY MOUTH EVERY DAY DIRECTED 60 tablet 2 Active Multiple Vitamins-Iron (Tab-A-Judith/Iron) tablet TAKE 1 TABLET BY MOUTH EVERY MORNING WITH FOOD 90 tablet 3 025 Active cholecalciferol VITAMIN D (Vitamin D-3) 50 MCG (2000 UT) tablet TAKE 1 TABLET BY MOUTH EVERY MORNING 90 tablet 1 025 Active solifenacin (VESIcare) 10 MG tablet TAKE 1 TABLET BY MOUTH EVERY MORNING DO NOT BREAK, CRUSH, DISSOLVE OR CHEW 30 tablet 11 025 Active Multiple Vitamins-Iron (Tab-A-Judith/Iron) tablet TAKE 1 TABLET BY MOUTH EVERY MORNING WITH FOOD 90 tablet 3 024 2024 Discontinued solifenacin (VESIcare) 10 MG tablet Take 1 tablet (10 mg) by mouth Once per day. Swallow tablet whole; do not crush, chew, or split. 30 tablet 11 024 2024 Discontinued cholecalciferol VITAMIN D (Vitamin D-3) 50 MCG (2000 UT) tablet TAKE 1 TABLET BY MOUTH EVERY MORNING 90 tablet 1 025 2024 Discontinued Active Problems Problem Noted Date Diagnosed Date [...] from more structured support, daughter working multimedia authoring specialist, she and brother are primary care givers, nephew was assisting with medications and home care but no longer working as email marketing specialist, 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 Auto Parts Clerk list provided for daughter, Referral to vna [...] 05/21/2015 Overview (01/26/2024): Seen by Dr Bradshaw, [facility] cards. Assessment & Plan (01/26/2024 2:51 PM [...] previous one of 9 on admission to [facility]. No change in meds. 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 Tylenol [...] Encounters Date Type Department Care Team Description 04/24/2025 Refill [facility] [place] [address] Valeri Lerner, 04/18/2025 Telephone [facility] [place] [address] Valeri Lerner DO 04/18/2025 Telephone [facility] [address] [place] [address] Valeri Lerner DO telephone call 04/15/2025 Anticoagulation - Warfarin Visit [facility] [address], [place] [address] Michaela Rollins, SHIRLEY Paroxysmal atrial fibrillation ([facility]CC) 04/15/2025 Telephone [facility] [place] [address] Valeri Lerner DO Call back request 04/14/2025 Telephone [facility] [address] [place] [address] Valeri Lerner DO call back request 04/08/2025 Refill [facility] [place] [address] Valeri Lerner DO 04/06/20[address] [facility] [place] [address] Valeri Lerner DO 03/25/2025 Anticoagulation - Warfarin Visit [address] [place] [address] Hanane Jackson RN Paroxysmal atrial fibrillation ([facility]/HCC) 03/21/[address] [address] Valeri Lerner DO Durable Medical Equipment (DME Request: Transport Chair) 03/21/[address] [address] Valeri Lerner DO Verbal Order 03/15/[address] [address] Valeri Lerner DO Paroxysmal atrial fibrillation ([facility]/HCC) 03/11/[address] [address] Valeri Lerner DO DME nebulizer 03/10/[address] [address] Frances Hilario FNP PT referral 03/10/2025 Orders Only [facility] [address] [place] [phone] Frances Hilario FNP Hypomagnesemia (Primary Dx) 03/10/2025 Results Follow-Up [facility] [address] [place] [phone] Frances Hilario FNP Magnesium, POCT Glucose, POCT HGB A1C 03/07/2025 1:30 PM EDT Office Visit [address] [address] Frances Hilario FNP Mixed stress and urge urinary incontinence (Primary Dx); Moderate persistent asthma without complication; Hypokalemia; Hypomagnesemia; Type 2 diabetes mellitus with hyperglycemia, with long-term current use of insulin ([facility]); QT prolongation; Paroxysmal atrial fibrillation ([facility]/HCC) 03/07/2025 Telephone [facility] [address] [place] [address] Analilia Stanford FNP Real Estate Leasing Manager Provider Documentation 03/07/2025 Orders Only GENERIC EXTERNAL DATA DEPARTMENT Provider, Generic External Data 03/07/2025 Travel 03/05/2025 Refill [facility] [address] [place] [address] Valeri Lerner DO Depression, unspecified depression type 03/04/2025 Anticoagulation - Warfarin Visit [facility] [address] [place] [address] Michaela Rollins RN Paroxysmal atrial fibrillation ([facility]/HCC) 02/25/2025 Refill [facility] [address] [place] [address] Valeri Lerner DO 02/17/2025 Patient Outreach [address] [address] Valeri Lerner DO Transition Of Care (Tcm) (HDF- scheduled, SDOH screening is Negative, Tobacco screening is negative) 02/13/2025 Orders Only [facility] External Provider, [facility] 02/11/2025 Anticoagulation - Warfarin Visit [facility] [address] [place] [address] Michaela Rollins, SHIRLEY Paroxysmal atrial fibrillation ([facility]/HCC) 01/28/2025 Anticoagulation - Warfarin Visit [address] [address] Michaela Rollins, SHIRLEY Paroxysmal atrial fibrillation ([facility]) from Last 3 Months Immunizations Immunization Administration [...] 12+ 11/06/2020,10/10/19 21 Pfizer Covid-19 Vaccine 12+ 04/26/2024, 4,08/23/2023 Pneumococcal Conjugate PCV 13 07/02/2015 Pneumococcal Conjugate [...] housing situation today? I have [employer] 02/17/[address] you li ve. Do you have problems with any of the following? None of the above 02/17/2025 Food Insecurity Answer Date Recorded Within the past 12 months, y ou worried that your food would run out before you got money to buy more: Never True 02/17/2025 Within the past 12 months,th e food you bought just didn't last and you didn't have enough money to get more: Never True Transportation Answer Date Recorded In the past 12 months, has l ack of transportation kept you from medical appts, meetings, work or from getting things needed for daily living? No 02/17/2025 Utilities Answer Date Recorded In the past 12 months, has t he electric, gas, oil or water company threatened to shut off services in your home? Yes 02/17/2025 Depression Answer Date Recorded Patient Health Questionnaire-2 Score 0 07/15/2024 Internet Access Answer Date Recorded Internet Access Q1 No 02/17/2025 Internet Access Q2 I do not want or need it 01/29 Comments Unknown Sex and Gender Information Value Date Recorded Sex Assigned at Female 05/30/2022 10:14 AM EDT Legal Sex Female 10:14 AM EDT Gender Identity Female 11/25/2024 8:15 AM EDT Sexual Orientation Straight 05/30/2022 10 :14 AM EDT Last Filed Vital Signs Vital Sign Reading Time Taken Comments Blood Pressure 118/80 03/07/2025 1:42 PM EDT Pulse 60 03/07/2025 1:42 PM EDT Temperature 36.4 C (97.6 F) 03/07/2025 1:42 PM EDT Respiratory Rate 20 03/07/2025 1:42 PM EDT Oxygen Saturation 98% 11/22/2024 1:35 PM EDT Inhaled Oxygen Concentration - - Weight 95.3 kg (210 lb) 03/07/2025 1:42 PM EDT Height 160 cm (5' 3 ) 03/07/2025 1:42 PM EDT Body Mass Index 37.2 03/07/2025 1:42 PM EDT Plan of Treatment Upcoming Encounters Date Type Department Care Team (Late st Contact Info) Description 05/16/2025 1:30 PM EDT Office Visit [facility] [address] [place] [address] Tod, Ai, OD [address] [place] [address] Health Maintenance Due Date Last Done Comments Dental Oral Exam 1935 Dental Prophylaxis 1935 Dental X-Ray: Bitewings 1935 Dental X-Ray: Full Mouth 1935 Alcohol/Substance Use Screening 1947 Diabetes: Urine Protein Screening 08/31/2024 08/31/2023, 01/19/2022, 05/19/2021, Additional history exists Lipid Panel 08/31/2024 08/31/2023 COVID-19 Vaccine ( season) 2025 04/26/2024, 12/26/2023, 08/23/2023, Additional history exists Influenza Vaccine (#1) 2025 4, 08/23/2023, 08/08/2022, Additional history exists Diabetes: Hemoglobin A1C 06/07/2025 025, 11/22/2024, 10/30/2024, Additional history exists Eye Exam 06/24/2025 06/24/2024, 06/01, 06/24/2024, Additional history exists Depression Screening 07/15/2025 07/15/2024, 07/15/20 Diabetes: Foot Exam 01/10/2026 01/10/2025 SDOH Screening 02/17/2026 02/17/2025 Tobacco Screening 03/07/2026 03/07/2025 DTaP/Tdap/Td Vaccines (3 - Td or Tdap) 12/25/2033 12/26/2023, 12/26/2023, 08/06/2013, Additional history exists Pneumococcal Vaccine: 50+ Years Completed 12/26/2023, 07/02/2015, [...] directed. Hemoglobin A1c < 8 Result Component 7.6( 1:53 PM EDT) No Batsheva Gomez, Frankie Procedures Procedure Name Priority Date/Time Associated Diagnosis Comments PROTHROMBIN TIME-INR Routine 04/15/2025 PROTHROMBIN TIME-INR Routine 03/25/2025 COMPREHENSIVE METABOLIC PANEL Routine 03/07/2025 2:58 PM EDT MAGNESIUM Routine 03/07/2025 2:58 PM EDT Hypomagnesemia POCT GLYCATED HEMOGLOBIN, TOTAL Routine 03/07/2025 1:53 PM EDT Type 2 diabetes mellitus with hyperglycemia, with long-term current use of insulin ([facility]) POCT GLUCOSE Routine 03/07/2025 1:52 PM EDT Type 2 diabetes mellitus with hyperglycemia, with long-term current use of insulin ([facility]) PROTHROMBIN TIME-INR Routine 03/04/2025 CT CERVICAL SPINE WO CONTRAST Routine 02/13/2025 10:[address] HEAD WO CONTRAST Routine 02/13/2025 9 :[address] LUMBAR SPINE WO CONTRAST Routine 02/13/2025 9:[address] CHEST WO CONTRAST Routine 02/13/2025 9:27 AM EDT PROTHROMBIN TIME-INR Routine 02/11/2025 PROTHROMBIN TIME-INR Routine 01/28/2025 AMB REFERRAL TO PODIATRY Routine 01/10/2025 Type 2 diabetes mellitus with hyperglycemia, with long-term current use of insulin ([facility]) ALBUMIN, RANDOM URINE W/CREATININE Routine 08/31/2023 4:16 PM EST Type 2 diabetes mellitus with hyperglycemia, with long-term current use of insulin ([facility]) LIPID PANEL, STANDARD Routine 08/31/2023 4:11 PM EST Type 2 diabetes mellitus with hyperglycemia, with long-term current use of insulin ([facility]) from Last 3 Months or Most Recently Relevant to Health Maintenance Results * (ABNORMAL) Prothrombin Time-INR (04/15/2025) Only the most recent of5 resultswithin the time period is included. INR 2.00(A) 2.00 - 3.00 EXTERNAL LAB Protime EXTERNAL LAB Blood Venous blood specimen / Unknown 04/15/2025 Valeri Lerner DO LAB BLOOD ORDERABLES Final R esult EXTERNAL LAB * (ABNORMAL) Magnesium (03/07/2025 2:58 PM EDT) Pathologist [facility] Magnesium 1.4(LL) 1.6 - 2.6 mg/dL [facility] Comment:Critical value for t est(s): MAG Results called to and readback by: IVET Person calling: AWILDA Date: 03.07.25Time: 1821 Blood Venous blood specimen / Unknown 03/07/2025 2:58 PM EDT 03/07/2025 4:39 PM EDT [facility] LAB BLOOD ORDERABLES Final Re sult [facility] [address] [place] [address] [phone] * (ABNORMAL) Comprehensive Metabolic Panel (03/07/2025 2:58 PM EDT) Sodium 143 135 - 145 mmol/L [facility] Potassium 3.6 3.3 - 5.1 mmol/L [facility] Chloride 104 96 - 108 mmol/L [facility] Carbon Dioxide 32(H) 22 - 29 mmol/L [facility] Anion Gap 11(L) 12 - 20 [facility] Urea Nitrogen (BUN) 14 9 - 16 mg/dL [facility] Creatinine, Serum 0.86 0.5 - 1.4 mg/dL [facility] Estimated Glomerular Filt Rate >60 [facility] Comment:Chronic Kidney Disea se: Estimated GFR < 60 mL/min/[id number] Kidney Disease: Estimated GFR < 15 mL/min/1.73m2 Glucose 128(H) 60 - 115 mg/dL [facility] Calcium 9.6 8.4 - 10.2 mg/dL [facility] Bilirubin, Total 0.4 0.0 - 1.0 mg/dL [facility] Aspartate Amino Transferase 24 5 - 31 U/L [facility] Alanine Aminotransferase 16 0 - 31 U/L [facility] Total Protein 7.7 6.5 - 8.0 g/dL [facility] Albumin Level 4.0 3.5 - 5.0 g/dL [facility] Alkaline Phosphatase 120(H) 39 - 117 U/L [facility] 03/07/2025 2:58 PM EDT 03/07/2025 4:39 PM EDT us Generic External Data Provider LAB BLOOD ORDERAB LES Final Result [facility] [address] [place] [address] [phone] * (ABNORMAL) POCT HGB A1C (03/07/2025 1:53 PM EDT) Hemoglobin A1C 7.6(A) 4.0 - 5.7 % QC Media Lot # [id number] Lot# Expiration Date Blood 03/07/2025 1:53 PM EDT [facility] SEARCH ENGINE OPTIMIZATION CONSULTANT POINT OF CARE TEST ENTER/EDIT ORDERABLES Final Result * POCT Glucose (03/07/2025 1:52 PM EDT) Glucose Blood, POC 172 60 - 200 mg/dL QC Media Lot # [id number] Lot# Expiration Date ,873,663 Blood Capillary blood specimen / Unknown 03/07/2025 1:52 PM EDT [facility] SEARCH ENGINE OPTIMIZATION CONSULTANT POINT OF CARE TEST ENTER/EDIT ORDERABLES Final Result * CT Cervical Spine w/o Contrast (02/13/2025 10:27 AM EDT) Anatomical Region Laterality Modality Spine, C-spine Computed Tomogra phy 02/13/2025 10:2 7 AM EDT Narrative 02/13/2025 11:26 AM EDT [place] [address] CT Scan Report Signed Patient: Nikky Guevara MR#: [id number] : 1935 Acct:[id number] Age/Sex: 89 / F ADM Date: 02/13/25 Loc: .ED Attending Dr: Ordering Physician: Marilee Miles Date of Service: 02/13/25 Procedure(s): CT cervical spine wo IV con Accession Number(s): [id number] cc: Marilee Miles; Valeri Lerner DO Report Number: [id number]: Total DLP = 404.00 mGy-cm EXAMINATION: CT CERVICAL SPINE WITHOUT CONTRAST CLINICAL INFORMATION: Fall, head strike, neck pain. COMPARISON: Numerous priors, most recently 04/02/2024. TECHNIQUE: Spiral CT imaging of the cervical spine performed in axial plane without contrast. Multiplanar reformatted images were constructed from the axial data set. This CT examination was performed using dose optimization techniques as appropriate, variously including the following: *Automated exposure control *Adjustment of mA and/or kV according to patient size (this includes techniques or standardized protocols for targeted exams where dose is matched to indication/reason for exam; i.e. extremities or head) *Use of iterative reconstruction technique FINDINGS: CORONAL ALIGNMENT: -There is a mild right convex scoliosis. SAGITTAL ALIGNMENT: -Mild straightening of the normal lordosis. -There is no evidence of traumatic subluxation. -There is a 2 mm degenerative appearing retrolisthesis C5 on C6. C1-C2 AND CRANIOCERVICAL JUNCTION: -Intact and normally aligned. There are moderate degenerative changes in the atlantoaxial joint. VERTEBRAL BODIES AND FACETS: -No fractures, compression deformity, or suspicious bone lesions. No traumatic malalignment. -Normal facet alignment. There are mild degenerative multilevel facet changes bilaterally. DISCS: -There is moderate disc degeneration at C5-6. There is otherwise mild disc degeneration at the above levels. CENTRAL CANAL: -No evidence of high-grade central canal narrowing or large disc herniation allowing for modality limitations. -There is mild to moderate stenosis at C5-6 and C6-7 secondary to dorsal disc osteophytic ridges. PREVERTEBRAL AND PARAVERTEBRAL SOFT TISSUES: -No prevertebral or paravertebral soft tissue edema or abnormal fluid collection. -Normal-appearing thyroid. -No mass or abnormal lymphadenopathy within the neck. LUNG APICES: -Limited by respiratory motion artifact. Grossly clear bilaterally. CT/CT cervical spine wo IV con IMPRESSION: 1. No CT evidence of acute cervical spine fracture or injury. 2. Stable degenerative spondylosis most notable at C5-6 and C6-7. Electronically signed by: Aakash Pisano MD 02/13/2025 11:23 AM EDT Dictated By: Aakash Pisano MD Signed By: <Electronically signed by Aakash Pisano MD in OV> 02/13/25 1123 DD/ 1027 TD/TT: 02/13/25 1113 Unit Leader: Procedure Note Donotuseinterpreter, Image - 02/13/[address] [address] [address] Scan Report Signed Patient: Eddie MorganCassie#: [id number] : 6Acct:[id number] Age/Sex: 89 / FADM Date: 02/13/25 Loc: HO.ED Attending Dr: Ordering Physician: Marilee Miles Date of Service: 02/13/25 Procedure(s): CT cervical spine wo IV con Accession Number(s): [id number] cc: Marilee Miles; Valeri Lerner DO Report Number: [id number]: Total DLP = 404.00 mGy-cm EXAMINATION: CT CERVICAL SPINE WITHOUT CONTRAST CLINICAL INFORMATION: Fall, head strike, neck pain. COMPARISON: Numerous priors, most recently 04/02/2024. TECHNIQUE: Spiral CT imaging of the cervical spine performed in axial plane without contrast. Multiplanar reformatted images were constructed from the axial data set. This CT examination was performed using dose optimization techniques as appropriate, variously including the following: *Automated exposure control *Adjustment of mA and/or kV according to patient size (this includes techniques or standardized protocols for targeted exams where dose is matched to indication/reason for exam; i.e. extremities or head) *Use of iterative reconstruction technique FINDINGS: CORONAL ALIGNMENT: -There is a mild right convex scoliosis. SAGITTAL ALIGNMENT: -Mild straightening of the normal lordosis. -There is no evidence of traumatic subluxation. -There is a 2 mm degenerative appearing retrolisthesis C5 on C6. C1-C2 AND CRANIOCERVICAL JUNCTION: -Intact and normally aligned. There are moderate degenerative changes in the atlantoaxial joint. VERTEBRAL BODIES AND FACETS: -No fractures, compression deformity, or suspicious bone lesions. No traumatic malalignment. -Normal facet alignment. There are mild degenerative multilevel facet changes bilaterally. DISCS: -There is moderate disc degeneration at C5-6. There is otherwise mild disc degeneration at the above levels. CENTRAL CANAL: -No evidence of high-grade central canal narrowing or large disc herniation allowing for modality limitations. -There is mild to moderate stenosis at C5-6 and C6-7 secondary to dorsal disc osteophytic ridges. PREVERTEBRAL AND PARAVERTEBRAL SOFT TISSUES: -No prevertebral or paravertebral soft tissue edema or abnormal fluid collection. -Normal-appearing thyroid. -No mass or abnormal lymphadenopathy within the neck. LUNG APICES: -Limited by respiratory motion artifact. Grossly clear bilaterally. CT/CT cervical spine wo IV con IMPRESSION: 1. No CT evidence of acute cervical spine fracture or injury. 2. Stable degenerative spondylosis most notable at C5-6 and C6-7. Electronically signed by: Aakash Pisano MD 02/13/2025 11:23 AM EDT RP Dictated By: Aakash Pisano MD Signed By: <Electronically signed by Aakash Pisano MD in OV> 02/13/25 1123 DD/ 1027 TD/TT: 02/13/25 1113 Unit Leader: [facility] External Provider IMG CT PROCEDURES Edited Result - Final * CT Lumbar Spine w/o Contrast (02/13/2025 9:27 AM EDT) Anatomical Region Laterality Modality Spine, L-spine Computed Tomogra phy 02/13/2025 9:27 AM EDT Narrative 02/13/2025 11:31 AM EDT [place] [address] CT Scan Report Signed Patient: Nikky Guevara MR#: [id number] : 1935 Acct:[id number] Age/Sex: 89 / F ADM Date: 02/13/25 Loc: .ED Attending Dr: Ordering Physician: Marilee Miles Date of Service: 02/13/25 Procedure(s): CT lumbar spine wo IV con Accession Number(s): [id number] cc: Marilee Miles; Valeri Lerner DO Report Number: [id number]: Total DLP = 1284.00 mGy-cm EXAMINATION: CT LUMBAR SPINE WITHOUT CONTRAST CLINICAL INFORMATION: Trauma, fall, pain DLP: 1284 mGY*cm COMPARISON: CT September 16, 2024 TECHNIQUE: Axial imaging was performed from mid T11 through the lower sacrum coccygeal region without IV contrast. Coronal and sagittal reformatted images were generated from the original axial data set. This CT examination was performed using dose optimization techniques as appropriate, variously including the following: *Automated exposure control *Adjustment of mA and/or kV according to patient size (this includes techniques or standardized protocols for targeted exams where dose is matched to indication/reason for exam; i.e. extremities or head) *Use of iterative reconstruction technique FINDINGS: There is a simple renal cysts are present in both kidneys. There is mild to moderate fatty atrophy of the paraspinal musculature. There is 2 mm to right kidney ossification likely representing a stone. There are 5 nonrib-bearing lumbar segments. There is moderate concavity involving superior L2 that is unchanged. Stippled calcifications within the discs is likely related to pyrophosphate deposition. There is abutment with sclerosis of the spinous processes at L2-3, L3-4, and L4-5. There are mild degenerative changes in the right SI joint. CT/CT lumbar spine wo IV con IMPRESSION: Stable chronic moderate superior endplate fracture of L2. CPPD arthropathy. Spinous process abutment at L2-3, L3-4, and L4-5. This can be a source of back pain. Electronically signed by: Magdy Lloyd MD 02/13/2025 11:28 AM EDT Dictated By: Magdy Lloyd MD Signed By: <Electronically signed by Magdy Lloyd MD in OV> 02/13/25 1128 DD/ 0927 TD/TT: 02/13/25 1113 Unit Leader: Procedure Note Donotuseinterpreter, Image - 02/13/[address] [place] [address] [address] Scan Report Signed Patient: Cassie Guevara#: [id number] : 1936Acct:[id number] Age/Sex: 89 / FADM Date: 02/13/25 Loc: HO.ED Attending Dr: Ordering Physician: Marilee Miles Date of Service: 02/13/25 Procedure(s): CT lumbar spine wo IV con Accession Number(s): [id number] cc: Mairlee Miles; Valeri Lerner DO Report Number: [id number]: Total DLP = 1284.00 mGy-cm EXAMINATION: CT LUMBAR SPINE WITHOUT CONTRAST CLINICAL INFORMATION: Trauma, fall, pain DLP: 1284 mGY*cm COMPARISON: CT September 16, 2024 TECHNIQUE: Axial imaging was performed from mid T11 through the lower sacrum coccygeal region without IV contrast. Coronal and sagittal reformatted images were generated from the original axial data set. This CT examination was performed using dose optimization techniques as appropriate, variously including the following: *Automated exposure control *Adjustment of mA and/or kV according to patient size (this includes techniques or standardized protocols for targeted exams where dose is matched to indication/reason for exam; i.e. extremities or head) *Use of iterative reconstruction technique FINDINGS: There is a simple renal cysts are present in both kidneys. There is mild to moderate fatty atrophy of the paraspinal musculature. There is 2 mm to right kidney ossification likely representing a stone. There are 5 nonrib-bearing lumbar segments. There is moderate concavity involving superior L2 that is unchanged. Stippled calcifications within the discs is likely related to pyrophosphate deposition. There is abutment with sclerosis of the spinous processes at L2-3, L3-4, and L4-5. There are mild degenerative changes in the right SI joint. CT/CT lumbar spine wo IV con IMPRESSION: Stable chronic moderate superior endplate fracture of L2. CPPD arthropathy. Spinous process abutment at L2-3, L3-4, and L4-5. This can be a source of back pain. Electronically signed by: Magdy Lloyd MD 02/13/2025 11:28 AM EDT Dictated By: Magdy Lloyd MD Signed By: <Electronically signed by Magdy Lloyd MD in OV> 02/13/25 1128 DD/ 0927 TD/TT: 02/13/25 1113 Unit Leader: [facility] External Provider IMG CT PROCEDURES Edited Result - Final * CT Chest w/o Contrast (02/13/2025 9:27 AM EDT) Anatomical Region Laterality Modality Body, Chest Computed Tomogra phy 02/13/2025 9:27 AM EDT Narrative 02/13/2025 11:24 AM EDT [address] [address] [address] Scan Report Signed Patient: Nikky Guevara MR#: [id number] : 1935 Acct:[id number] Age/Sex: 89 / F ADM Date: 02/13/25 Loc: HO.ED Attending Dr: Ordering Physician: Marilee Miles Date of Service: 02/13/25 Procedure(s): CT chest wo IV con Accession Number(s): [id number] cc: Marilee Miles; Valeri Lerner DO Report Number: [id number]: Total DLP = 288.00 mGy-cm EXAMINATION: CT CHEST WITHOUT IV CONTRAST INDICATION: SOB, hypoxia, fall COMPARISON: Comparison is made with the prior examination dated 07/22/2023. TECHNIQUE: Helical CT scan of the chest was performed without intravenous contrast. Coronal and sagittal reformatted images were generated and reviewed. This CT exam was performed with one or more of the following dose reduction techniques: automated exposure control, adjustment of the mA and/or kV according to patient size, use of iterative reconstruction technique. DLP: 289 mGy-cm CHEST: THYROID: The thyroid is unremarkable. LUNGS: There are multifocal linear opacities compatible with scarring. There are no focal airspace opacities. MEDIASTINUM: There is no mediastinal lymphadenopathy. SHO: Evaluation of the hilar regions is limited by lack of intravenous contrast material. CARDIOVASCULATURE: The heart is normal in size. There is no pericardial effusion. The thoracic aorta is normal in caliber. 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 PLEURA: There is no pleural effusion. No pneumothorax. MAIN AIRWAYS: The mainstem bronchi and proximal branches are patent. AXILLA: There is no axillary lymphadenopathy. BONES AND SOFT TISSUES: There is degenerative disc disease of the spine. UPPER ABDOMEN: The visualized portions of the liver and spleen have an unremarkable unenhanced appearance. CT/CT chest wo IV con IMPRESSION: No evidence of traumatic injury to the chest. No focal airspace opacity is identified. Electronically signed by: Tyler Mendez MD 02/13/2025 11:22 AM EDT RP Dictated By: Tyler Mendez MD Signed By: <Electronically signed by Tyler Mendez MD in OV> 02/13/25 1122 DD/ 0927 TD/TT: 02/13/25 1113 Unit Leader: Procedure Note Donotuseinterpreter, Image - 02/13/[address] [address] [address] Scan Report Signed Patient: Cassie Guevara#: [id number] : 1935cct:[id number] Age/Sex: 89 / FADM Date: 02/13/25 Loc: HO.ED Attending Dr: Ordering Physician: Marilee Miles Date of Service: 02/13/25 Procedure(s): CT chest wo IV con Accession Number(s): [id number] cc: Marilee Miles; Valeri Lerner DO Report Number: [id number]: Total DLP = 288.00 mGy-cm EXAMINATION: CT CHEST WITHOUT IV CONTRAST INDICATION: SOB, hypoxia, fall COMPARISON: Comparison is made with the prior examination dated 07/22/2023. TECHNIQUE: Helical CT scan of the chest was performed without intravenous contrast. Coronal and sagittal reformatted images were generated and reviewed. This CT exam was performed with one or more of the following dose reduction techniques: automated exposure control, adjustment of the mA and/or kV according to patient size, use of iterative reconstruction technique. DLP: 289 mGy-cm CHEST: THYROID: The thyroid is unremarkable. LUNGS: There are multifocal linear opacities compatible with scarring. There are no focal airspace opacities. MEDIASTINUM: There is no mediastinal lymphadenopathy. SHO: Evaluation of the hilar regions is limited by lack of intravenous contrast material. CARDIOVASCULATURE: The heart is normal in size. There is no pericardial effusion. The thoracic aorta is normal in caliber. 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 PLEURA: There is no pleural effusion. No pneumothorax. MAIN AIRWAYS: The mainstem bronchi and proximal branches are patent. AXILLA: There is no axillary lymphadenopathy. BONES AND SOFT TISSUES: There is degenerative disc disease of the spine. UPPER ABDOMEN: The visualized portions of the liver and spleen have an unremarkable unenhanced appearance. CT/CT chest wo IV con IMPRESSION: No evidence of traumatic injury to the chest. No focal airspace opacity is identified. Electronically signed by: Tyler Mendez MD 02/13/2025 11:22 AM EDT Dictated By: Tyler Mendez MD Signed By: <Electronically signed by Tyler Mendez MD in OV> 02/13/25 1122 DD/ 0927 TD/TT: 02/13/25 1113 Unit Leader: [facility] External Provider IMG CT PROCEDURES Edited Result - Final * CT Head w/o Contrast (02/13/2025 9:27 AM EDT) Anatomical Region Laterality Modality Head, Neck Computed Tomogra phy 02/13/2025 9:27 AM EDT Narrative 02/13/2025 11:42 AM EDT [place] [address] [address] Scan Report Signed Patient: Nikky Guevara MR#: [id number] : 1935 Acct:[id number] Age/Sex: 89 / F ADM Date: 02/13/25 Loc: HO.ED Attending Dr: Ordering Physician: Marilee Miles Date of Service: 02/13/25 Procedure(s): CT head/brain wo IV con Accession Number(s): [id number] cc: Marilee Miles; Valeri Lerner DO Report Number: [id number]: Total DLP = 1095.00 mGy-cm EXAMINATION: CT HEAD WITHOUT CONTRAST CLINICAL INFORMATION: Head trauma, fall COMPARISON: 04/02/2024 CT and MRI January 19, 2022 TECHNIQUE: Contiguous axial imaging was performed from the skull base to vertex without intravenous administration of contrast. This CT examination was performed using dose optimization techniques as appropriate, variously including the following: *Automated exposure control *Adjustment of mA and/or kV according to patient size (this includes techniques or standardized protocols for targeted exams where dose is matched to indication/reason for exam; i.e. extremities or head) *Use of iterative reconstruction technique DLP: 1095 mGY*cm FINDINGS: There is no acute ischemic change. There is no intracranial hemorrhage. There is no mass-effect or midline shift. There is mild to moderate generalized atrophy. Basal cisterns and ventricles are within normal limits for age/cerebral volume. Orbits are symmetrical and unremarkable. Paranasal sinuses and mastoid air cells are pneumatized. 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 CT/CT head/brain wo IV con IMPRESSION: No acute intracranial abnormality. Generalized atrophy. 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 Electronically signed by: Magdy Lloyd MD 02/13/2025 11:39 AM EDT Dictated By: Magdy Lloyd MD Signed By: <Electronically signed by Magdy Lloyd MD in OV> 02/13/25 1139 DD/ 0927 TD/TT: 02/13/25 1113 Unit Leader: Procedure Note Donotuseinterpreter, Image - 02/13/[address] [address] [address] Scan Report Signed Patient: Cassie Guevara#: [id number] : 1936Acct:[id number] Age/Sex: 89 / FADM Date: 02/13/25 Loc: HO.ED Attending Dr: Ordering Physician: Marilee Miles Date of Service: 02/13/25 Procedure(s): CT head/brain wo IV con Accession Number(s): [id number] cc: Marilee Miles; Valeri Lerner DO Report Number: [id number]: Total DLP = 1095.00 mGy-cm EXAMINATION: CT HEAD WITHOUT CONTRAST CLINICAL INFORMATION: Head trauma, fall COMPARISON: 04/02/2024 CT and MRI January 19, 2022 TECHNIQUE: Contiguous axial imaging was performed from the skull base to vertex without intravenous administration of contrast. This CT examination was performed using dose optimization techniques as appropriate, variously including the following: *Automated exposure control *Adjustment of mA and/or kV according to patient size (this includes techniques or standardized protocols for targeted exams where dose is matched to indication/reason for exam; i.e. extremities or head) *Use of iterative reconstruction technique DLP: 1095 mGY*cm FINDINGS: There is no acute ischemic change. There is no intracranial hemorrhage. There is no mass-effect or midline shift. There is mild to moderate generalized atrophy. Basal cisterns and ventricles are within normal limits for age/cerebral volume. Orbits are symmetrical and unremarkable. Paranasal sinuses and mastoid air cells are pneumatized. 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 CT/CT head/brain wo IV con IMPRESSION: No acute intracranial abnormality. Generalized atrophy. 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 Electronically signed by: Magdy Lloyd MD 02/13/2025 11:39 AM EDT Dictated By: Magdy Lloyd MD Signed By: <Electronically signed by Magdy Lloyd MD in OV> 02/13/25 1139 DD/ 0927 TD/TT: 02/13/25 1113 Unit Leader: [facility] External Provider IMG CT PROCEDURES Edited Result - Final * Referral to Podiatry (01/10/2025) Valeri Lerner DO OUTPATIENT REFERRAL ORDERABL ES Final Result * (ABNORMAL) Albumin, Random Urine W/Creatinine (08/31/2023 4:16 PM EST) Creatinine, Urine 25.77 mg/dL [facility] Microalbumin Urine 31.0 mg/L H [facility] Microalbum Creatinine Ratio Ur 120.2(H) <30 ug/mg cr [facility] Comment:Albumin/Creatinine R atio Reference Ranges: Normal: < 30 ug/mg creatinine Microalbuminuria: 30 - 300 ug/mg creatinineClinical Albuminuria: > 300 ug/mg creatinine Urine (Urine, Random) 08/31/2023 4:16 PM EST 08/31/2023 5:27 PM EST us Valeri Lerner DO LAB URINE ORDERABLES Final R esult [facility] [address] [place] [address] [phone] * (ABNORMAL) Lipid Panel, Standard (08/31/2023 4:11 PM EST) Triglycerides 349(H) <150 mg/dL [facility] Comment:Desirable Triglyceri de: less than 150 mg/dLBorderline High Triglyceride 150-199 mg/dLHigh Triglyceride: 200-499 mg/dLVery High Triglyceride: greater than or equal to 5OO mg/dL Cholesterol 149 <200 mg/dL [facility] Comment:Desirable Cholestero l: less than 200 mg/dLBorderline High Cholesterol: 200-239 mg/dLHigh Cholesterol: greater than 239 mg/dL LDL Cholesterol Calculated 41 <100 mg/dL [facility] Comment:Desirable LDL: less than 100 mg/dLNear Optimal/Above Optimal LDL: 110- 129 mg/dLBorderline High LDL: 130-159 mg/dLHigh LDL: 160-189 mg/dLVery High LDL: greater than or equal to 190 mg/dL HDL Cholesterol 39(L) >40 mg/dL [facility] Comment:Desirable HDL: great er than 40 mg/dL Note: This HDL assay may give artificially low results in patients with liver disease. Blood Venous blood specimen / Unknown 08/31/2023 4:11 PM EST 08/31/2023 5:27 PM EST us Valeri Lerner DO LAB BLOOD ORDERABLES Final R esult [facility] [address] [place] [address] [phone] from Last 3 Months or Most Recently Relevant to Health Maintenance Insurance [facility] [employer] [facility] DUAL COMPLETE Care Teams Molding Utility Worker Relationship Specialty Start Date End Date Valeri Lerner DO [address] [place] [phone] PCP - General Family Medicine 07/13/12 [employer] 12/08/23
--- OUTSIDE RECORDS SUMMARY | 2025-04-25 11:13 | XMS_ITS | Encounter Summary ---
Author Organization [employer] Address [address] [facility] [address] [place] [address] Care Team Providers Care Medical Consultant Name Role Phone Valeri Lerner DO Primary Care Provider [phone] Batsheva Gomez PharmD Unavailable [phone] Reason for Visit * Reason Comments Med Refill Encounter Details Date Type Department Care Team (Late st Contact Info) Description 06/20/2023 Refill [facility] [address], [place] [phone] Valeri Lerner DO [address] [place] [address] Generalized anxiety disorder Social History Tobacco Use Types Packs/Day Years Used Date Smoking Tobacco: Never Passive Smoke Exposure: Never Smokeless Tobacco: Never Alcohol Use Standard Drinks/Week Comments Never 0 (1 standard drink = 0.6 oz pur e alcohol) Housing Stability Answer Date Recorded What is your housing situation today? I have [employer] 05/20/[address] you [...] Description 05/16/2025 1:30 PM EDT Office Visit [facility] [address] [place] [address] TodAi raman, OD [address] [place] [address] documented as of this encounter Visit Diagnoses Diagnosis Generalized anxiety disorder documented in this encounter Care Teams Medical Consultant Relationship Specialty Start Date End Date Valeri Lerner DO [address] [place] [phone] PCP - General Family Medicine 07/13/12 Batsheva Gomez PharmD [address] [place] [phone] Pharmacist Internal Medicine 03/07/24 12/19/24 [employer] 12/08/23 documented as of this encounter
--- OUTSIDE RECORDS SUMMARY | 2025-04-25 11:13 | XMS_ITS | Encounter Summary ---
Author Organization [facility] Address [address] [place] [address] [address] [place] [address] Care Team Providers Care Production Welding Supervisor Name Role Phone Valeri Lerner DO Primary Care Provider [phone] Batsheva Gomez PharmD Unavailable Encounter Details Date Type Department Care Team (Late st Contact Info) Description 08/03/2022 Orders Only [facility] [address] [place] [address] Valeri Renner LPN Social History Tobacco Use [...] Description 05/16/2025 1:30 PM EDT Office Visit [facility] [address] [place], [place] [phone] Tod, Ai, OD [address] [place], [place] [phone] documented as of this encounter Procedures Procedure [...] EST) Protime 26.1(H) 11.1 - 13.5 sec [facility] 07/14/2023 11:0 7 AM EST 07/14/2023 11:08 AM EST us Generic External Data Provider LAB BLOOD ORDERAB LES Final Result Performing Organization Address City/State/[facility] Co de Phone Number [facility] [address] [place] [phone] * (ABNORMAL) ~PT, ~INR - [facility]TI [facility] (07/14/2023 11:07 AM EST) Prothrombin Time INR 2.2(H) 0.9 - 1.1 [facility] Comment:METER #: [id number] TERNATIONAL NORMALIZED RATIO (INR) REFERENCE RANGES Reference [...] ORDERAB LES Final Result Performing Organization Address [facility] Co de Phone Number [facility] [address] [place] [address] [phone] * (ABNORMAL) PROTHROMBIN TIME WHOLE BLD POC (06/09/2023 11:34 AM EST) Protime 23.9(H) 11.1 - 13.5 sec [facility] 06/09/2023 11:3 4 AM EST 06/09/2023 11:36 AM EST Generic External Data Provider LAB BLOOD ORDERAB LES Final Result Performing Organization Address [facility] de Phone Number [facility] [address] [place] [address] [phone] * (ABNORMAL) ~PT, ~INR - ANTI [facility]AG [facility]IN[facility] (06/09/2023 11:34 AM EST) Prothrombin Time INR 2.0(H) 0.9 - 1.1 [facility] Comment:METER #: [id number] TERNATIONAL NORMALIZED RATIO (INR) REFERENCE RANGES Reference [...] LES Final Result Performing Organization Address [facility] Co de Phone Number [facility] [address] [place] [address] [phone] * (ABNORMAL) PROTHROMBIN TIME WHOLE BLD POC (03/22/2023 11:23 AM EDT) Protime 38.5(H) 11.1 - 13.5 sec [facility] 03/22/2023 11:2 3 AM EDT 03/22/2023 11:25 AM EDT Generic External Data Provider LAB BLOOD ORDERAB LES Final Result Performing Organization Address [facility] de Phone Number [facility] [address] [place] [address] [phone] * (ABNORMAL) ~PT, ~INR - ANTI [facility]AG [facility] (03/22/2023 11:23 AM EDT) Prothrombin Time INR 3.2(H) 0.9 - 1.1 [facility] Comment:METER #: [id number] TERNATIONAL NORMALIZED RATIO (INR) REFERENCE RANGES Reference [...] 3 AM EDT 03/22/2023 11:25 AM EDT [facility] External Provider LAB BLO OD ORDERABLES Final Result Performing Organization Address [facility] Co de Phone Number [facility] [address] [place] [phone] * (ABNORMAL) PROTHROMBIN TIME WHOLE BLD POC (03/01/2023 11:31 AM EDT) Protime 26.8(H) 11.1 - 13.5 sec [facility] 03/01/2023 11:3 1 AM EDT 03/01/2023 11:33 AM EDT Generic External Data Provider LAB BLOOD ORDERAB LES Final Result Performing Organization Address City/[facility]/ZIP Co de Phone Number [facility] [address] [place] [address] [phone] * (ABNORMAL) ~PT, ~INR - ANTI [facility]AG [facility]IN[facility] (03/01/2023 11:31 AM EDT) Prothrombin Time INR 2.2(H) 0.9 - 1.1 [facility] Comment:METER #: [id number] TERNATIONAL NORMALIZED RATIO (INR) REFERENCE RANGES Reference [...] 1 AM EDT 03/01/2023 11:33 AM EDT [facility] External Provider LAB BLO OD ORDERABLES Final Result Performing Organization Address City/[facility]/ZIP Co de Phone Number [facility] [address] [place] [address] [phone] * (ABNORMAL) PROTHROMBIN TIME WHOLE BLD POC (02/08/2023 11:20 AM EDT) Protime 26.7(H) 11.1 - 13.5 sec [facility] 02/08/2023 11:2 0 AM EDT 02/08/2023 11:22 AM EDT [facility] External Provider LAB BLO OD ORDERABLES Final Result Performing Organization Address [facility] Co de Phone Number [facility] [address] [place] [address] [phone] * (ABNORMAL) ~PT, ~INR - ANTI [facility]AG [facility] (02/08/2023 11:20 AM EDT) Prothrombin Time INR 2.2(H) 0.9 - 1.1 [facility] Comment:METER #: [id number] TERNATIONAL NORMALIZED RATIO (INR) REFERENCE RANGES Reference [...] 0 AM EDT 02/08/2023 11:22 AM EDT [facility] External Provider LAB BLO OD ORDERABLES Final Result Performing Organization Address [facility] de Phone Number [facility] [address] [place] [address] [phone] * (ABNORMAL) PROTHROMBIN TIME WHOLE BLD POC (01/18/2023 2:41 PM EDT) Protime 25.7(H) 11.1 - 13.5 sec [facility] 01/18/2023 2:41 PM EDT 01/18/2023 2:43 PM EDT [facility] External Provider LAB BLO OD ORDERABLES Final Result Performing Organization Address City/[facility] Co de Phone Number [facility] [address] [place] [address] [phone] * (ABNORMAL) ~PT, ~INR - ANTI [facility] (01/18/2023 2:41 PM EDT) Prothrombin Time INR 2.1(H) 0.9 - 1.1 [facility] Comment:METER #: [id number] TERNATIONAL NORMALIZED RATIO (INR) REFERENCE RANGES Reference [...] 2:41 PM EDT 01/18/2023 2:43 PM EDT [facility] External Provider LAB BLO OD ORDERABLES Final Result [facility] [address] [place] [address] [phone] * (ABNORMAL) PROTHROMBIN TIME WHOLE BLD POC (12/30/2022 11:46 AM EDT) Protime 20.5(H) 11.1 - 13.5 sec [facility] 12/30/2022 11:4 6 AM EDT 12/30/2022 11:48 AM EDT [facility] External Provider LAB BLO OD ORDERABLES Final Result [facility] [address] [place] [address] [phone] * (ABNORMAL) ~PT, ~INR - ANTI [facility]AG [facility] (12/30/2022 11:46 AM EDT) Prothrombin Time INR 1.7(H) 0.9 - 1.1 [facility] Comment:METER #: [id number] TERNATIONAL NORMALIZED RATIO (INR) REFERENCE RANGES Reference [...] 6 AM EDT 12/30/2022 11:48 AM EDT [facility] External Provider LAB BLO OD ORDERABLES Final Result Performing Organization Address City/[facility] Co de Phone Number [facility] [address] [place] [address] [phone] * (ABNORMAL) PROTHROMBIN TIME WHOLE BLD POC (12/15/2022 10:26 AM EDT) Protime 23.7(H) 11.1 - 13.5 sec [facility] 12/15/2022 10:2 6 AM EDT 12/15/2022 10:28 AM EDT [facility] External Provider LAB BLO OD ORDERABLES Final Result Performing Organization Address City/[facility] Co de Phone Number [facility] [address] [place] [address] [phone] * (ABNORMAL) ~PT, ~INR - ANTI [facility] (12/15/2022 10:26 AM EDT) Prothrombin Time INR 2.0(H) 0.9 - 1.1 [facility] Comment:METER #: [id number] TERNATIONAL NORMALIZED RATIO (INR) REFERENCE RANGES Reference [...] 6 AM EDT 12/15/2022 10:28 AM EDT [facility] External Provider LAB BLO OD ORDERABLES Final Result Performing Organization Address City/[facility] Co de Phone Number [facility] [address] [place] [address] [phone] * (ABNORMAL) PROTHROMBIN TIME WHOLE BLD POC (11/30/2022 11:01 AM EDT) Protime 21.3(H) 11.1 - 13.5 sec [facility] 11/30/2022 11:0 1 AM EDT 11/30/2022 11:04 AM EDT [facility] External Provider LAB BLO OD ORDERABLES Final Result Performing Organization Address [facility] de Phone Number [facility] [address] [place] [address] [phone] * (ABNORMAL) ~PT, ~INR - ANTI [facility]AG [facility]IN[facility] (11/30/2022 11:01 AM EDT) Prothrombin Time INR 1.8(H) 0.9 - 1.1 [facility] Comment:METER #: [id number] TERNATIONAL NORMALIZED RATIO (INR) REFERENCE RANGES Reference [...] 1 AM EDT 11/30/2022 11:04 AM EDT [facility] External Provider LAB BLO OD ORDERABLES Final Result Performing Organization Address [facility] de Phone Number [facility] [address] [place] [address] [phone] * (ABNORMAL) PROTHROMBIN TIME WHOLE BLD POC (11/09/2022 10:29 AM EDT) Protime 28.8(H) 11.1 - 13.5 sec [facility] 11/09/2022 10:2 9 AM EDT 11/09/2022 10:30 AM EDT Result [facility] External Provider LAB BLO OD ORDERABLES Final Result Performing Organization Address [facility] Phone Number [facility] [address] [place] [address] [phone] * (ABNORMAL) ~PT, ~INR - ANTI [facility]AG [facility]IN[facility] (11/09/2022 10:29 AM EDT) Prothrombin Time INR 2.4(H) 0.9 - 1.1 [facility] Comment:METER #: [id number] TERNATIONAL NORMALIZED RATIO (INR) REFERENCE RANGES Reference [...] 9 AM EDT 11/09/2022 10:30 AM EDT [facility] External Provider LAB BLO OD ORDERABLES Final Result Performing Organization Address [facility]/ZIP Co de Phone Number [facility] [address] [place] [phone] * (ABNORMAL) Basic Metabolic Panel (10/05/2022 10:02 AM EST) Sodium 146(H) 135 - 145 mmol/L [facility] Potassium 3.4 3.3 - 5.1 mmol/L [facility] Chloride 105 96 - 108 mmol/L [facility] Carbon Dioxide 29 22 - 29 mmol/L [facility] Anion Gap 15 12 - 20 [facility] Urea Nitrogen (BUN) 20(H) 9 - 16 mg/dL [facility] Creatinine, Serum 0.96 0.5 - 1.4 mg/dL [facility] Estimated Glomerular Filt Rate 55 [facility] Comment:NOTE: For -Am erican individuals, multiply the result by 1.210.Chronic Kidney Disease: Estimated GFR < 60 mL/min/[id number] Kidney Disease: Estimated GFR < 15 mL/min/1.73m2 Glucose 28(LL) 60 - 115 mg/dL [facility] Comment:Critical value for t est(GLUR): Results called to and readback by: TONI Guerra LPN Person calling: PATRICIA Date:10/05/22 Time: 1112 Calcium 9.3 8.4 - 10.2 mg/dL [facility] 10/05/2022 10:0 2 AM EST 10/05/2022 10:31 AM EST us [facility] External Provider LAB BLO OD ORDERABLES Final Result [facility] [address] [place] [phone] * (ABNORMAL) Prothrombin Time-INR (10/05/2022 10:02 AM EST) Prothrombin Time 72.7(H) 10.0 - 13.1 SEC [facility] INTERNATIONAL NORM RATIO 5.9(HH) 0.9 - 1.1 [facility] Comment:RESULTS OF INR VO D [...] 2 AM EST 10/05/2022 10:31 AM EST [facility] External Provider LAB BLO OD ORDERABLES Final Result [facility] [address] [place] [phone] * (ABNORMAL) CBC auto differential (10/05/2022 10:02 AM EST) White Blood Count 10.8 4.8 - 10.8 X10*3/uL [facility] Red Blood Count 4.02(L) 4.20 - 5.50 X10*6/uL [facility] Hemoglobin 12.3 12.0 - 16.0 g/dl [facility] Hematocrit 39.4 37.0 - 47.0 % [facility] Mean Corpuscular Volume 98.0 80.0 - 98.0 fL [facility] Mean Corpuscular Hemoglobin 30.6 27.0 - 33.0 pg [facility] Mean Corpuscular HGB Conc 31.2 31.0 - 35.0 g/dl [facility] Red Cell Distribution Width 13.4 11.0 - 16.0 % [facility] Platelet Count 217 160 - 400 X10*3/uL [facility] Mean Platelet Volume 10.9 9.4 - 12.3 fL [facility] Neutrophils Percent Auto 58.6 45 - 73 % [facility] Imm Gran Pct Auto 0.4 0.0 - 0.4 % [facility] Lymphocytes Percent Auto 31.5 20 - 40 % [facility] Monocytes Percent Auto 5.8 2 - 11 % [facility] Eosinophils Percent Auto 3.1 0 - 4 % [facility] Basophils Percent Auto 0.6 0 - 2 % [facility] NRBC Pct Auto 0.0 0.0 - 0.2 /100WBC [facility] Neutrophils Absolute Auto 6.3 2.0 - 8.3 x10*3/uL [facility] Imm Gran Abs Auto 0.04(H) 0.00 - 0.03 X10*3/uL [facility] Lymphocytes Absolute Auto 3.4 1.2 - 4.9 X10*3/uL [facility] Monocytes Absolute Auto 0.6 0.1 - 1.2 X10*3/uL [facility] Eosinophils Absolute Auto 0.3 0.0 - 0.4 X10*3/uL [facility] Basophils Absolute Auto 0.1 0.0 - 0.2 X10*3/uL [facility] NRBC Abs Auto 0.000 0.0 - 0.012 X10*3/uL [facility] 10/05/2022 10:0 2 AM EST 10/05/2022 10:31 AM EST us [facility] External Provider LAB BLO OD ORDERABLES Final Result [facility] [address] [place] [address] [phone] * (ABNORMAL) Prothrombin Time-INR (10/03/2022 2:57 PM EST) Prothrombin Time 92.9(H) 10.0 - 13.1 SEC [facility] INTERNATIONAL NORM RATIO 7.4(HH) 0.9 - 1.1 [facility] Comment:RESULTS OF INR VO D TO AND READ BACK BY SINDY MCDONOUGH 10/03/22 AT 1538 BY HO.KUSF.INTERNATIONAL NORMALIZED RATIO (INR) REFERENCE RANGES Reference RangeFor [...] 2:57 PM EST 10/03/2022 3:20 PM EST us [facility] External Provider LAB BLO OD ORDERABLES Final Result Performing Organization Address City/State/[facility] Co de Phone Number [facility] [address] [place] [address] [phone] * (ABNORMAL) CBC auto differential (09/20/2022 11:35 AM EST) White Blood Count 9.1 4.8 - 10.8 X10*3/uL [facility] Red Blood Count 4.06(L) 4.20 - 5.50 X10*6/uL [facility] Hemoglobin 12.6 12.0 - 16.0 g/dl [facility] Hematocrit 39.2 37.0 - 47.0 % [facility] Mean Corpuscular Volume 96.6 80.0 - 98.0 fL [facility] Mean Corpuscular Hemoglobin 31.0 27.0 - 33.0 pg [facility] Mean Corpuscular HGB Conc 32.1 31.0 - 35.0 g/dl [facility] Red Cell Distribution Width 13.7 11.0 - 16.0 % [facility] Platelet Count 127(L) 160 - 400 X10*3/uL [facility] Mean Platelet Volume 11.2 9.4 - 12.3 fL [facility] Neutrophils Percent Auto 85.6(H) 45 - 73 % [facility] Imm Gran Pct Auto 0.2 0.0 - 0.4 % [facility] Lymphocytes Percent Auto 9.6(L) 20 - 40 % [facility] Monocytes Percent Auto 4.4 2 - 11 % [facility] Eosinophils Percent Auto 0.0 0 - 4 % [facility] Basophils Percent Auto 0.2 0 - 2 % [facility] NRBC Pct Auto 0.0 0.0 - 0.2 /100WBC [facility] Neutrophils Absolute Auto 7.7 2.0 - 8.3 x10*3/uL [facility] Imm Gran Abs Auto 0.02 0.00 - 0.03 X10*3/uL [facility] Lymphocytes Absolute Auto 0.9(L) 1.2 - 4.9 X10*3/uL [facility] Monocytes Absolute Auto 0.4 0.1 - 1.2 X10*3/uL [facility] Eosinophils Absolute Auto 0.0 0.0 - 0.4 X10*3/uL [facility] Basophils Absolute Auto 0.0 0.0 - 0.2 X10*3/uL [facility] NRBC Abs Auto 0.000 0.0 - 0.012 X10*3/uL [facility] 09/20/2022 11:3 5 AM EST 09/20/2022 11:39 AM EST [facility] External Provider LAB BLO OD ORDERABLES Final Result [facility] [address] [place] [address] [phone] * SARS-CoV-2 RNA, Influenza A/B, and RSV RNA, Ql NAAT (09/20/2022 11:34 AM EST) Influenza A PCR NEGATIVE Negative [facility] Influenza B PCR NEGATIVE Negative [facility] Resp Syncy Virus RNA Qual PCR NEGATIVE Negative [facility] SARS COV2 PCR NEGATIVE Negative [facility] SARS/Flu/RSV Note See Note [facility] Comment:All test results mus t be [...] use by authorized laboratories.Testing performed on the [employer] GeneXpert utilizingreal-time RT-PCR.All SARS CoV2 and positive influenza A/B results arereported to [facility]. 09/20/2022 11:3 4 AM EST 09/20/2022 11:51 AM EST [facility] Exter nal Provider LAB MICROBIOLOGY - GENERAL ORDERABLES Final Result Performing Organization Address City/[facility]/ZIP Co de Phone Number [facility] [address] [place] [address] [phone] * TSH W/Reflex to FT4 (09/20/2022 11:34 AM EST) TSH reflex Free T4 0.75 0.32 - 4.0 uIU/mL [facility] 09/20/2022 11:3 4 AM EST 09/20/2022 11:39 AM EST [facility] External Provider LAB BLO OD ORDERABLES Final Result Performing Organization Address City/[facility]/ZIP Co de Phone Number [facility] [address] [place] [address] [phone] * (ABNORMAL) B Type Natriuretic Peptide (BNP) (09/20/2022 11:34 AM EST) B Type Natriuretic Peptide 421(H) <100 pg/mL [facility] Comment:For those patients w ho are being treated with Natrecor(nesiritide, recombinant BNP), BNP testing should beperformed at least two hours post treatment in order toensure that only endogenous levels of BNP are detected. 09/20/2022 11:3 4 AM EST 09/20/2022 11:39 AM EST [facility] External Provider LAB BLO OD ORDERABLES Final Result Performing Organization Address [facility] de Phone Number [facility] [address] [place] [address] [phone] * Lipase (09/20/2022 11:34 AM EST) Lipase 55 8 - 78 U/L [facility] 09/20/2022 11:3 4 AM EST 09/20/2022 11:39 AM EST [facility] External Provider LAB BLO OD ORDERABLES Final Result Performing Organization Address [facility] Phone Number [facility] [address] [place] [address] [phone] * Magnesium (09/20/2022 11:34 AM EST) Magnesium 1.6 1.6 - 2.6 mg/dL [facility] 09/20/2022 11:3 4 AM EST 09/20/2022 11:39 AM EST [facility] External Provider LAB BLO OD ORDERABLES Final Result Performing Organization Address [facility] Phone Number [facility] [address] [place] [address] [phone] * (ABNORMAL) Comprehensive Metabolic Panel (09/20/2022 11:34 AM EST) Sodium 137 135 - 145 mmol/L [facility] Potassium 3.8 3.3 - 5.1 mmol/L [facility] Chloride 99 96 - 108 mmol/L [facility] Carbon Dioxide 30(H) 22 - 29 mmol/L [facility] Anion Gap 12 12 - 20 [facility] Urea Nitrogen (BUN) 22(H) 9 - 16 mg/dL [facility] Creatinine, Serum 1.08 0.5 - 1.4 mg/dL [facility] Creatinine Clr Calc Pharmacy 40.4 [facility] Comment:Provided height and weight: 157.48 cm,99.4 kg.eGFR (calculated from the MDRD study equation) and eCrCl(calculated from the Cockcroft-Gault equation) are based ondifferent parameters and may not yield comparable results.If eCrCl result is absurd, please check patient'sheight/weight. Estimated Glomerular Filt Rate 48 [facility] Comment:NOTE: For -Am erican individuals, multiply the result by 1.210.Chronic Kidney Disease: Estimated GFR < 60 mL/min/1.38g1Hrtzhn Kidney Disease: Estimated GFR < 15 mL/min/1.73m2 Glucose 253(H) 60 - 115 mg/dL [facility] Calcium 9.1 8.4 - 10.2 mg/dL [facility] Bilirubin, Total 0.8 0.0 - 1.0 mg/dL [facility] Aspartate Amino Transferase 24 5 - 31 U/L [facility] Alanine Aminotransferase 21 0 - 31 U/L [facility] Total Protein 7.1 6.5 - 8.0 g/dL [facility] Albumin Level 3.7 3.5 - 5.0 g/dL [facility] Alkaline Phosphatase 105 39 - 117 U/L [facility] 09/20/2022 11:3 4 AM EST 09/20/2022 11:39 AM EST us [facility] External Provider LAB BLO OD ORDERABLES Final Result [facility] [address], [place] [id number] [phone] * Lactic Acid (09/20/2022 11:34 AM EST) Lactic Acid 1.1 0.5 - 2.0 mmol/L [facility] 09/20/2022 11:3 4 AM EST 09/20/2022 11:39 AM EST [facility] External Provider LAB BLO OD ORDERABLES Final Result Performing Organization Address [facility] Co de Phone Number [facility] 28 [place] [phone] * (ABNORMAL) Prothrombin Time-INR (09/20/2022 11:34 AM EST) Prothrombin Time 18.3(H) 10.0 - 13.1 SEC [facility] INTERNATIONAL NORM RATIO 1.6(H) 0.9 - 1.1 [facility] Comment:INTERNATIONAL NORMAL IZED RATIO (INR) [...] 4 AM EST 09/20/2022 11:39 AM EST [facility] External Provider LAB BLO OD ORDERABLES Final Result Performing Organization Address [facility] Co de Phone Number [facility] [address] [place] [phone] * (ABNORMAL) PROTHROMBIN TIME WHOLE BLD POC (09/12/2022 10:21 AM EST) Protime 24.5(H) 11.1 - 13.5 sec [facility] 09/12/2022 10:2 1 AM EST 09/12/2022 10:22 AM EST [facility] External Provider LAB BLO OD ORDERABLES Final Result Performing Organization Address [facility] Co de Phone Number [facility] [address] [place] [phone] * (ABNORMAL) ~PT, ~INR - ANTI COAG CLINIC (09/12/2022 10:21 AM EST) Prothrombin Time INR 2.0(H) 0.9 - 1.1 [facility] Comment:METER #: [id number] TERNATIONAL NORMALIZED RATIO (INR) REFERENCE RANGES Reference [...] 1 AM EST 09/12/2022 10:22 AM EST [facility] External Provider LAB BLO OD ORDERABLES Final Result [facility] [address] [place] [phone] * (ABNORMAL) PROTHROMBIN TIME WHOLE BLD POC (08/29/2022 10:11 AM EST) Protime 20.9(H) 11.1 - 13.5 sec [facility] 08/29/2022 10:1 1 AM EST 08/29/2022 10:15 AM EST [facility] External Provider LAB BLO OD ORDERABLES Final Result [facility] [address] [place] [phone] * (ABNORMAL) ~PT, ~INR - ANTI COAG CLINIC (08/29/2022 10:11 AM EST) Prothrombin Time INR 1.7(H) 0.9 - 1.1 [facility] Comment:METER #: [id number] TERNATIONAL NORMALIZED RATIO (INR) REFERENCE RANGES Reference [...] 1 AM EST 08/29/2022 10:15 AM EST [facility] External Provider LAB BLO OD ORDERABLES Final Result Performing Organization Address [facility] Co de Phone Number [facility] [address] [place] [phone] * (ABNORMAL) PROTHROMBIN TIME WHOLE BLD POC (08/18/2022 1:12 PM EST) Protime 22.1(H) 11.1 - 13.5 sec [facility] 08/18/2022 1:12 PM EST 08/18/2022 1:14 PM EST [facility] External Provider LAB BLO OD ORDERABLES Final Result Performing Organization Address [facility] Co de Phone Number [facility] [address] [place] [phone] * (ABNORMAL) ~PT, ~INR - ANTI COAG CLINIC (08/18/2022 1:12 PM EST) Prothrombin Time INR 1.8(H) 0.9 - 1.1 [facility] Comment:METER #: [id number] TERNATIONAL NORMALIZED RATIO (INR) REFERENCE RANGES Reference [...] PM EST 08/18/2022 1:14 PM EST us [facility] External Provider LAB BLO OD ORDERABLES Final Result [facility] [address] [place] [phone] documented in this encounter Visit Diagnoses Not on filedocumented in this encounter Care Teams Production Welding Supervisor Relationship Specialty Start Date End Date Valeri Lerner DO [address] [place] [phone] PCP - General Family Medicine 07/13/12 Batsheva Gomez PharmD [address] [place] [phone] Pharmacist Internal Medicine 03/07/24 12/19/24 [employer] 12/08/23 documented as of this encounter
--- OUTSIDE RECORDS SUMMARY | 2025-04-25 11:13 | XMS_ITS | Encounter Summary ---
Author Organization [employer] Address [address] [place] [address] [address] [place] [address] Care Team Providers Care Last Repairer Name Role Phone EduardaValeri Primary Care Provider [phone] Batsheva Gomez PharmD Unavailable [phone] Encounter Details Date Type Department Care Team (Late st Contact Info) Description 09/29/2022 Abstract [facility] [address] [place] [phone] Sebastian Fierro DDS [address] [place] [address] Social History Tobacco Use Types Packs/Day Years [...] Description 05/16/2025 1:30 PM EDT Office Visit [facility] [address] [place], [place] [phone] Ai Baron, KEMI [address] [place] [address] documented as of this encounter Visit Diagnoses Not on filedocumented in this encounter Care Teams Last Repairer Relationship Specialty Start Date End Date Valeri Lerner DO [address] [place], [place] [phone] PCP - General Family Medicine 07/13/12 Batsheva Gomez, Frankie [address] [place] [address] [phone] Pharmacist Internal Medicine 03/07/24 12/19/24 [employer] 12/08/23 documented as of this encounter
--- OUTSIDE RECORDS SUMMARY | 2025-04-25 11:13 | XMS_ITS | Encounter Summary ---
Author Organization [email or web address] Address [address] [place] [address] [address] [place] [address] Care Team Providers Care Power House Control Room Operator Name Role Phone Valeri Lerner DO Primary Care Provider [phone] Reason for Visit * Reason Comments Med Refill Encounter Details Date Type Department Care Team (Late st Contact Info) Description 04/24/2025 Refill [facility] [address] [place], [place] [phone] Valeri Lerner DO [address] [place], [place] [phone] Social History Tobacco Use Types Packs/Day Years [...] Description 05/16/2025 1:30 PM EDT Office Visit [facility] [address] [place] [address] Tod, Ai, OD [address] [place] [address] documented as of this encounter Goals Goal [...] 7.6( 1:53 PM EDT) No Batsheva Gomez, PharmD documented as of this encounter Visit Diagnoses Not on filedocumented in this encounter Additional Health Concerns Assessment Noted Time PHQ-9 Depression Total Score: 0 07/15/20 24 11:32 AM EST documented as of this encounter Care Teams Power House Control Room Operator Relationship Specialty Start Date End Date Valeri Lerner DO [address] [place] [address] PCP - General Family Medicine 07/13/12 [employer] 12/08/23 documented as of this encounter
--- OUTSIDE RECORDS SUMMARY | 2025-04-25 11:13 | XMS_ITS ---
Author Name Yelena Barillas NP Address [address] [place] [address] Phone [phone] [facility] Care Team Providers Care Monologist Name Role Phone Eran Yelena Unavailable [phone] CATALINA BAGLEY Unavailable [phone] Unavailable Unavailable Unavailable [facility] Unavailable Reason for Referral Not Available Allergies, [...] 2024-03-29 No Data Available Comfort EZ Pen [place] 32 gauge x 5/32 USE DIRECTED WITH [...] Solution Pen-injector Subcutaneous 0.5 mg SL weekly 2024-12-20 No Data Availa ble Embecta Pen Needle Cinthya 32G X 4 MM Miscellaneous USE DIRECTED WITH LANTUS AND HUMALOG 2025-02-26 No Data Available Albuterol Sulfate HFA 108 (9 0 Base) MCG/ACT Aerosol Solution INHALE 2 PUFFS BY MOUTH EVERY 6 HOURS NEEDED FOR WHEEZING 2025-03-07 No Data Available Cetirizine 10 mg Tab TAKE 1/2 TABLET BY MOUTH EVERY MORNING 2024-07-15 No Data Available Medbox Status USE DIRECTED 2024-05-10 No Data Keily ilable Magnesium Oxide 400 mg Tab TAKE 1 TABLET BY MOUTH EVERY DAY 2025-03-10 No Data Available FreeStyle Jason 2 Plus Senso r Miscellaneous USE DIRECTED TO TEST BLOOD SUGAR EVERY 8 HOURS, CHANGE EVERY 15 DAYS 2024-12-20 No Data Available Diclofenac Sodium 1 % Gel 4 grams topica lly to affected area 4 times per day PRN 2025-04-02 No Data Available Problem List Problem Status Onset Date Resolved Date Synopsis Atherosclerosis of coronary artery of [place] heart Active 2022-08-30 N/A cont lasix stati n metoprololfu w cardiology MDD (major depressive disorder), recurrent episode, moderate Active 2022-08-30 N/A sertaline-Stab le-continue to f/u with PCP/specialists-continue rx'd medications-report changes in chronic condition Hypothyroidism Active 2022-08-30 N/A levothyrox inefu w [...] rate control Type 2 diabetes mellitus with hyperlipidemia; 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 Morbid obesity due to excess calories Active 2022-08-30 N/A BMI 37.2 with co morbidity: HTN, HL, DM move as much as possible fu w pcpmtr labs Hypertensive heart disease with [...] feeling wellReport consistent blood pressures readings >140/902/06/24: ENERGY ADVISOR reports that in the last couple of days the patient's toes have been pink and sensitive to touch, denies uncontrolled pain to touch. She has an appointment with the farm mechanic on monday for further evaluation.01/28/25: Patient denies BLE edema or dyspnea, denies any acute concerns. COPD (chronic obstructive pulmonary disease) Active 2022-08-15 N/A jhoana cam w pulmonaryon Room Air -Stable-continue to f/u with PCP/specialists-continue rx'd medications-report changes in chronic condition Incontinence; Mixed stress and urge urinary incontinence Active 2024-11-22 N/A Incontinence sup plies ordered on 11/22-continue f/u with urology [facility] Unsteady gait Active 2024-12-10 N/A ENERGY ADVISOR reports that the patient has unsteady gait with walking, requires assistance during ambulation. Hx of falls. Other problems related to medical facilities and other health care Active 2024-05-29 N/A HEART FAILU RE CONTINGENCY PLANLast updated: 04/02/2025Member to call for the following symptoms: Edema/ FatiguePlanned intervention: Increase furosemide (Lasix) to 80 mg for 3 days Risk and functional assessment Active 2025-04-02 N/A -Patient has gurwinder ly [facility] and ENERGY ADVISOR services. She lives alone in a third floor apartment with close family support from daughter. Daughter requesting increase in ENERGY ADVISOR hoursPCKaykay- Sully -Advised to reach out to [facility] cc [place] currently approximate 30hours per weekCognition Status: Oriented to Person, Place and TimeADL: Bathing Needs Assistance , Dressing Needs Assistance , Eating Independent , Ambulation Needs Assistance , Transferring Needs Assistance and Toileting Needs AssistanceIADL: Medication Needs Assistance , Meal Prep Needs Assistance , Shopping Needs Assistance , Driving or Public Transport Needs Assistance , Housework Needs Assistance , Finances Needs AssistanceHow many falls within the last 6 months? yes 01/2025 with fracture Near falls within the last 6 months? yesDo you feel unsteady on your feet? YesDo you worry about falling? YesDME used with ambulation: CaneSocial Supports - # of Interactions with Friends/Family in a typical week: daily Goals of care, counseling/discussion Active 2025-04-02 N/A Advance Ca re Plan and Serious Illness ConversationDate of Conversation: 04/02/2025Life Limiting Diagnosis: Diagnosis: HFCurrently on Hospice NoDo you have a Durable Power of Doughnut Icer for Healthcare, or Healthcare Proxy Or Guardianship? Yes, preferred proxy but not named POAIf so, Who? HCP: Tressa Sethi Do you have a written Advance Directive? Has Advance DirectivePrognostic Understanding: Underestimates prognosisInformation: Patient does not want any information for him/herselfToday's prognostic communication: Incurable, life expectancy several months to a yearGoals: be at home Fears/Worries: pain Strength: her cat, novelas, coffee and bread Discussion: extensive discussion with family about goals and wishesCode Status: YES CPR: Attempt ResuscitationGoals of Care: Curative: Attempt to sustain life by all medically effective meansNutrition goals: Feeding through new or existing surgically placed tube is ok Today's plan: Repeat discussion in < 12> monthsOther details of discussion: (Who was present, : member and ENERGY ADVISOR Neoplasm of unspecified behavior of brain Active 2025-04-02 N/A -Stable-contin ue to f/u with PCP/specialists-continue rx'd medications-report changes in chronic condition Intermittent diarrhea Active 2025-04-02 N/A -lo ose stools after GLP1 injections-resolves within 2-3 days-HOLD stool softener -report bloody diarrhea Osteoarthritis, multiple sites Active 2025-04-02 N/A -start diclofena c-f/u with PCP and P.T.-move as able Encounters Encounters Type Facility Date of Service Diagnosis/Co mplaint New patient,40-59min ; chronic exacerbation, 2 stable chronic or 1 acute illness add add modifier 95 for video (do not use for phone, instead use 52245-14) [facility] [place]/2022 Paroxysmal atrial fibrillationChronic obstructive pulmonary disease, unspecifiedAthscl heart disease of [place] coronary artery w/o ang pctrsType 2 diabetes mellitus with other specified complicationHyperlipidemia, unspecifiedLong term (current) use of insulinMajor depressive disorder, single episode, in partial remissionHypothyroidism, unspecifiedMorbid (severe) obesity due to excess caloriesBody mass index (bmi) 38.0-38.9, adultPrsnl hx of TIA (TIA), and cereb infrc w/o resid deficitsAnemia in other chronic diseases classified elsewhere New patient,40-59min ; chronic exacerbation, 2 stable chronic or 1 acute illness add add modifier 95 for video (do not use for phone, instead use 52666-24) [facility] [place] New patient,40-59min ; chronic exacerbation, 2 stable chronic or 1 acute illness add add modifier 95 for video (do not use for phone, instead use 14481-77) [facility] New patient,40-59min ; chronic exacerbation, 2 stable chronic or 1 acute illness add add modifier 95 for video (do not use for phone, instead use 26344-39) [facility] [place] New patient,40-59min ; chronic exacerbation, 2 stable chronic or 1 acute illness add add modifier 95 for video (do not use for phone, instead use 77717-35) [facility] ([place] 08[place] New patient,40-59min ; chronic exacerbation, 2 stable chronic or 1 acute illness add add modifier 95 for video (do not use for phone, instead use 14366-01) [facility] [place] 08[place] New patient,40-59min ; chronic exacerbation, 2 stable chronic or 1 acute illness add add modifier 95 for video (do not use for phone, instead use 44063-33) [facility] [place] 08[place] New patient,40-59min ; chronic exacerbation, 2 stable chronic or 1 acute illness add add modifier 95 for video (do not use for phone, instead use 54842-15) [facility] [place] 08[place]/20[place] Estab. patient 20-29min; 1 stable chronic or 2 minor; add add modifier 95 for video, modifier 93 for phone [facility] [place] 10/03/2022 Pneumonia, unspecified organismSepsis, unspecified organism Estab. patient 20-29min; 1 stable chronic or 2 minor; add add modifier 95 for video, modifier 93 for phone [facility] [place] 10/03/2022 Estab. patient 20-29min; 1 stable chronic or 2 minor; add add modifier 95 for video, modifier 93 for phone [facility] [place] 10/03/2022 Estab. patient 20-29min; 1 stable chronic or 2 minor; add add modifier 95 for video, modifier 93 for phone [facility] [place] 10/03/2022 Estab. patient 20-29min; 1 stable chronic or 2 minor; add add modifier 95 for video, modifier 93 for phone [facility] [place] 10/03/2022 Estab. patient 20-29min; 1 stable chronic or 2 minor; add add modifier 95 for video, modifier 93 for phone [facility] [place] 10/03/2022 Estab. patient 30-39min; chronic exacerbation, 2 stable chronic or 1 acute illness add add modifier 95 for video, (do not use for phone, instead use 71668-42) [facility] [place] 05/28/2024 Paroxysmal atrial fibrillati onOther thrombophiliaHypertensive heart disease with heart failureMorbid (severe) obesity due to excess caloriesSecondary hyperaldosteronismChronic obstructive pulmonary disease, unspecifiedHeart failure, unspecifiedMajor depressive disorder, single episode, in partial remissionType 2 diabetes mellitus with other specified complicationHypothyroidism, unspecifiedHyperlipidemia, unspecifiedAthscl heart disease of [place] coronary artery w/o ang pctrsAnemia in other chronic diseases classified elsewhereGeneralized anxiety disorderBody mass index (BMI) 40.0-44.9, adultPrsnl hx of TIA (TIA), and cereb infrc w/o resid deficitsOther problems related to medical facilities and other health care Estab. patient 30-39min; chronic exacerbation, 2 stable chronic or 1 acute illness add add modifier 95 for video, (do not use for phone, instead use [id number]) [facility] Estab. patient 30-39min; chronic exacerbation, 2 stable chronic or 1 acute illness add add modifier 95 for video, (do not use for phone, instead use 56638-85) [facility] 05[place] Estab. patient 30-39min; chronic exacerbation, 2 stable chronic or 1 acute illness add add modifier 95 for video, (do not use for phone, instead use 17722-26) [facility] 05[place] Estab. patient 30-39min; chronic exacerbation, 2 stable chronic or 1 acute illness add add modifier 95 for video, (do not use for phone, instead use 81026-24) [facility] 05[place] Estab. patient 30-39min; chronic exacerbation, 2 stable chronic or 1 acute illness add add modifier 95 for video, (do not use for phone, instead use 37915-88) [facility] 05[place] Estab. patient 30-39min; chronic exacerbation, 2 stable chronic or 1 acute illness add add modifier 95 for video, (do not use for phone, instead use 80094-61) [facility] 05[place] Estab. patient 30-39min; chronic exacerbation, 2 stable chronic or 1 acute illness add add modifier 95 for video, (do not use for phone, instead use 48529-87) [facility] 05[place] Estab. patient 30-39min; chronic exacerbation, 2 stable chronic or 1 acute illness add add modifier 95 for video, (do not use for phone, instead use 48278-16) [facility] 05[place] Estab. patient 30-39min; chronic exacerbation, 2 stable chronic or 1 acute illness add add modifier 95 for video, (do not use for phone, instead use 46485-42) [facility] 05[place] Estab. patient 30-39min; chronic exacerbation, 2 stable chronic or 1 acute illness add add modifier 95 for video, (do not use for phone, instead use 70085-09) [facility] 05[place] Estab. patient 10-29min; 1 minor problem; add add modifier 95 for video, modifier 93 for phone [facility] 09/[place]/2024 Heart failure, unspecifiedSe condary hyperaldosteronismOther problems related to medical facilities and other health care Estab. patient 10-29min; 1 minor problem; add add modifier 95 for video, modifier 93 for [facility], [place]10[place]2024 Chronic obstructive pulmonar y disease, unspecifiedHypertensive heart disease with heart failureHeart failure, unspecified Estab. patient 10-29min; 1 minor problem; add add modifier 95 for video, modifier 93 for [facility] 11/07/2024 Acute respiratory failure wi th hypoxiaChronic obstructive pulmonary disease, unspecifiedPneumonia, unspecified organismUnspecified urinary incontinenceOther problems related to medical facilities and other health care Estab. patient 10-29min; 1 minor problem; add add modifier 95 for video, modifier 93 for [facility] 11/07/20[place] Estab. patient 10-29min; 1 minor problem; add add modifier 95 for video, modifier 93 for [facility] 11/07/20[place] Estab. patient 10-29min; 1 minor problem; add add modifier 95 for video, modifier 93 for [facility] 11/07/2024 Estab. patient 10-29min; 1 minor problem; add add modifier 95 for video, modifier 93 for [facility] 12/10/2024 Acute respiratory failure wi th hypoxiaPneumonia, unspecified organismUnsteadiness on feetOther problems related to medical facilities and other health care Estab. patient 10-29min; 1 minor problem; add add modifier 95 for video, modifier 93 for [facility] 01/28/2025 Heart failure, unspecifiedSe condary hyperaldosteronismChronic obstructive pulmonary disease, unspecified RN, CN or CP time with patient by phone; use with 1111F, BP, A1c or other CPTII codes [facility] 02/18/2025 Encounter for other specifie d aftercare RN, CN or CP time with patient by phone; use with 1111F, BP, A1c or other CPTII codes [facility] 02/18/2025 Estab. patient 10-29min; 1 minor problem; add add modifier 95 for video, modifier 93 for [facility], [place] 02/27/2025 Urinary tract infection, sit e not specifiedOther problems related to medical facilities and other health care Estab. patient 10-29min; 1 minor problem; add add modifier 95 for video, modifier 93 for [facility] [place] 02/27/2025 Estab. patient 10-29min; 1 minor problem; add add modifier 95 for video, modifier 93 for [facility] [place] 02/27/2025 Estab. patient 10-29min; 1 minor problem; add add modifier 95 for video, modifier 93 for [facility] [place] 02/27/2025 Estab. patient 10-29min; 1 minor problem; add add modifier 95 for video, modifier 93 for [facility], [place] 04/02/2025 Polyosteoarthritis, unspecifiedParoxysmal atrial fibrillationOther thrombophiliaChronic obstructive pulmonary disease, unspecifiedAthscl heart disease of [place] coronary artery w/o ang pctrsType 2 diabetes mellitus with other specified complicationHyperlipidemia, unspecifiedType 2 diabetes mellitus with moderate nonproliferative diabetic retinopathy with macular edema, left eyeLong term (current) use of insulinLong term (current) use of oral hypoglycemic drugsMajor depressive disorder, recurrent, moderateHypothyroidism, unspecifiedMorbid (severe) obesity due to excess caloriesBody mass index (BMI) 40.0-44.9, adultPrsnl hx of TIA (TIA), and cereb infrc w/o resid deficitsAnemia in other chronic diseases classified elsewhereHeart failure, unspecifiedSecondary hyperaldosteronismGeneralized anxiety disorderHypertensive heart disease with heart failureOther problems related to medical facilities and other health careMixed incontinenceUnsteadiness on feetEncounter for screening, unspecifiedOther specified counselingNeoplasm of unspecified behavior of brainDiarrhea, unspecified Estab. patient 10-29min; 1 minor problem; add add modifier 95 for video, modifier 93 for [facility] 04[place]02[place]20[place] Estab. patient 10-29min; 1 minor problem; add add modifier 95 for video, modifier 93 for phone [facility]20[place] Estab. patient 10-29min; 1 minor problem; add add modifier 95 for video, modifier 93 for phone [facility], [place] 04/02/20[place] Estab. patient 10-29min; 1 minor problem; add add modifier 95 for video, modifier 93 for phone [facility] 04/02/20[place] Estab. patient 10-29min; 1 minor problem; add add modifier 95 for video, modifier 93 for phone [facility] 04/02/20[place] Estab. patient 10-29min; 1 minor problem; add add modifier 95 for video, modifier 93 for phone [facility] 04/02/20[place] Estab. patient 10-29min; 1 minor problem; add add modifier 95 for video, modifier 93 for phone [facility] 04/02/2025 Estab. patient 10-29min; 1 minor problem; add add modifier 95 for video, modifier 93 for phone [facility] [place] 04/02/2025 Estab. patient 10-29min; 1 minor problem; add add modifier 95 for video, modifier 93 for phone [facility] [place] 04/02/2025 Vital Signs Date of Collection Vitals 2022-08-25 [...] - 54.0 mm[Hg]BP Systolic - 120.0 mm[Hg] 2025-04-02 07:04:42 Height - 160.02 cmWe ight - 95.26 kgBody Mass Index (BMI) - 37.2 kg/m2BP Diastolic - 80.0 mm[Hg]BP Systolic - 118.0 mm[Hg]Heart Rate - 60.0 /minPain Scale - 5.0 {score} Social History Social History Social History Observation Description Effec tive Time Current Smoking Status Former smoker 2025-04-01 6 Sex Female Gender identity Woman History of Procedures Procedures Service Procedure code Service date Servicing provider Phone# New patient,40-59min; chronic exacerbation, 2 stable chronic or 1 acute illness add add modifier 95 for video (do not use for phone, instead use [id number]) [id number] 2022-08-25 No Data Available No Data Availa [...] 95 for video, modifier 93 for phone [id number] 2022-10-03 No Data Available No Data Availa [...] (do not use for phone, instead use [id number]) 74913 2024-05-28 No Data Available No Data Availa [...] 95 for video, modifier 93 for phone [id number] 2024-09-10 No Data Available No Data Availa ble Estab. patient 10-29min; 1 minor problem; add add modifier 95 for video, modifier 93 for phone [id number] 2024-10-10 No Data Available No Data Availa ble Estab. patient 10-29min; 1 minor problem; add add modifier 95 for video, modifier 93 for phone [id number] 2024-11-07 No Data Available No Data Availa [...] 95 for video, modifier 93 for phone [id number] 2024-12-10 No Data Available No Data Availa ble Estab. patient 10-29min; 1 minor problem; add add modifier 95 for video, modifier 93 for phone [id number] 2025-01-28 No Data Available No Data Availa ble RN, CN or CP time with patient by phone; use with [facility], BP, A1c or other CPTII codes 46924 2025-02-18 No Data Available No Data Avai lable Medications prescribed in hospital were reviewed and reconciled against what they were taking prior to admission during today's visit. (1111F) 11112025-02-18 No Data Available No Data Availa ble Estab. patient 10-29min; 1 minor problem; add add modifier 95 for video, modifier 93 for phone [id number] 2025-02-27 No Data Available No Data Availa [...] 95 for video, modifier 93 for phone [id number] 2025-04-02 No Data Available No Data Availa ble Medication List Documented (1159F) 1159F 2025-04-02 No Data Available No Data Keily ilable Medication Review by prescribing provider or pharmacist documented (1160F) 1160F 2025-04-02 No Data Available No Data Keily ilable Functional Status Assessed (1170F) 1170F 2025-04-02 No Data Available No Data Avail able Advance Care Directive Advance care planning discussion documented in the medical record (1158F) 1158F 2025-04-02 No Data Available No Data Availa ble Advance care planning discussed and documented advance care plan or surrogate decision-maker was documented in the medical record. (1123F) 1123F 2025-04-02 No Data Available No Data Availa ble Pain Assessment - Pain Documented on a Pain Scale (1125F) 1125F 2025-04-02 No Data Available No Data Keily ilable SBP < 130 (3074F) 3074F 2025-04-02 No Data Available No Data Available DBP 80-89 (3079F) 3079F 2025-04-02 No Data Available No Data Available Most recent A1c (HbA1c) or GMI level 7-7.9% (3051F) 3051F 2025-04-02 No Data Available No Data Availa ble Functional Status No Information Mental Status Status Date Cognition Status: Oriented to Person, Pl mohan and Time 2024-05-29 Assessments Date of Service Assessments 2022-08-25 06:36:45 paroxysmal atrial fi brillationCOPD (chronic obstructive pulmonary disease)Atherosclerosis of coronary artery of [place] heartType 2 diabetes mellitus with hyperlipidemiaMajor depressive disorder in partial remissionHypothyroidismMorbid obesity due to excess caloriesHistory of CVA (cerebrovascular accident)Anemia in chronic illness 2022-10-03 07:05:20 Patient Education to avoid future hospitalization: Call [facility] if symptoms of illness develop.Sepsis due to pneumonia 2024-05-28 07:45:46 paroxysmal atrial fi brillation and Hypercoagulability due to atrial fibrillationCOPD (chronic obstructive pulmonary disease)Atherosclerosis of coronary artery of [place] heartType 2 diabetes mellitus with hyperlipidemiaMajor depressive [...] to medical facilities and other health care 2025-04-02 07:04:42 Osteoarthritis, mult iple sitesparoxysmal atrial fibrillation and Hypercoagulability due to atrial fibrillationCOPD (chronic obstructive pulmonary disease)Atherosclerosis of coronary artery of [place] heartType 2 diabetes mellitus with hyperlipidemia; 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, with long-term current use of insulinMDD (major depressive disorder), recurrent episode, moderateHypothyroidismMorbid obesity due to excess caloriesHistory of CVA (cerebrovascular accident)Anemia in chronic illnessCongestive heart failure & Secondary hyperaldosteronismGeneralized anxiety disorderHypertensive heart disease with heart failureOther problems related to medical facilities and other health careIncontinence; Mixed stress and urge urinary incontinenceUnsteady gaitRisk and functional assessmentGoals of care, counseling/discussionNeoplasm of unspecified behavior of brainIntermittent diarrheaOsteoarthritis, multiple sites Plan of Care Date of Service Plans 2022-08-25 06:36:45 Medication Review by prescribing provider or pharmacist documented (1160F)Medication List Documented (1159F)Functional Status Assessed (1170F)Advance Care Directive Advance care planning discussion documented in the medical record (1158F)BMI obtained (3008F)SBP < 130 (3074F)DBP <80 (3078F)Televideo new patient,40-59min; chronic exacerbation, 2 stable chronic or 1 acute illness add modifier 95Continue to see PCP. Follow-up with [facility] as needed for any acute or disease education needs that may arise.continues on coumadinmtr INRsmtr for any s+s of bleedingmetoprolol for rate controladvair, fluticasonefu w pulmonarycont lasix statin metoprololfu w cardiologycont humalog, lantus, metformin, trulicty a1c 7.7, cont to mtrada dietcont simvastatin and mtr lipids fu w endocrinecont on sertralinept denies symptoms currentlycont [facility] fcont clonazepam for anxiety/insomnialevothyroxinefu w endomtr [...] 80-89 (3079F)Continue to see PCP. Follow-up with [facility] as needed for any acute or [...] may arise 20/02.HEART FAILURE CONTINGENCY PLANLast updated: 05/29/2024[facility] to call for the following symptoms: BP [...] feeling wellReport consistent blood pressures readings >140/902/06/24: ENERGY ADVISOR reports that in the last couple of days the patient's toes have been pink and sensitive to touch, denies uncontrolled pain to touch. She has an appointment with the farm mechanic on monday for further evaluation. 2024-10-10 06:15:41 [...] >140/90 or <90/50.HEART FAILURE CONTINGENCY PLANLast updated: 05/29/2024[facility] to call for the following symptoms: BP [...] the patient is home with family and ENERGY ADVISOR/VNA care. The patient is currently has a soft diet and increase weakness post hospitalization. Medication reconciled with hospital records, unable to confirm with VNAHEART FAILURE CONTINGENCY PLANLast updated: 05/29/2024[facility] to call for the following symptoms: BP <100/60 / BP >180/100 / Edema/ Exertional dyspnea/ Weight gain or lossPlanned intervention: Increase furosemide (Lasix) to 60 mg for 3 days/ Wrap legs with Mohan wrap/ Put on compression stockings/ Eat lower sodium foods/ Take medication every single dayCOPD CONTINGENCY PLANLast updated: 11/22/2024[facility] to call for the following symptoms: Exertional [...] or disease education needs that may arise 20/02.ENERGY ADVISOR reports that the patient has unsteady gait with walking, requires assistance during ambulation. Hx of falls.11/07/24: Hospitalization 10/21-10/21 for acute hypoxic respiratory failure secondary to pneumonia. Patient presented to cough and shortness of breath. The patient was discharged to a STR. In addition, the patient had ER visit 11/05 for aspiration pneumonia. At this time, the patient is home with family and ENERGY ADVISOR/VNA care. The patient is currently has a soft diet and increase weakness post hospitalization. Medication reconciled with hospital records, unable to confirm with VNA12/10/24: Cg reports that the patient does not have any acute symptoms, she is 'stable'. She is aware that the patient will continue to steadily decline.HEART FAILURE CONTINGENCY PLANLast updated: 05/29/2024[facility] to call for the following symptoms: BP <100/60 / BP >180/100 / Edema/ Exertional dyspnea/ Weight gain or lossPlanned intervention: Increase furosemide (Lasix) to 60 mg for 3 days/ Wrap legs with Mohan wrap/ Put on compression stockings/ Eat lower sodium foods/ Take medication every single dayCOPD CONTINGENCY PLANLast updated: 11/22/2024[facility] to call for the following symptoms: Exertional dyspnea/ Increased cough / WheezingPlanned intervention: Levofloxacin 500mg daily x 5 daysFALL CONTINGENCY PLANMember to call for the following symptoms: Fall / Pre-syncope/ Refusing to use cane / WeaknessPlanned intervention: Order x-ray at [facility] or local hospital Assess for [...] feeling wellReport consistent blood pressures readings >140/902/06/24: ENERGY ADVISOR reports that in the last couple of days the patient's toes have been pink and sensitive to touch, denies uncontrolled pain to touch. She has an appointment with the farm mechanic on monday for further evaluation.01/28/25: Patient denies BLE edema or dyspnea, denies any acute concerns.advair, fluticasonefu w pulmonary01/28/25: Patient denies dyspnea or any other concerns.HEART FAILURE CONTINGENCY PLANLast updated: 05/29/2024[facility] to call for the following symptoms: BP <100/60 / BP >180/100 / Edema/ Exertional dyspnea/ Weight gain or lossPlanned intervention: Increase furosemide (Lasix) to 60 mg for 3 days/ Wrap legs with Mohan wrap/ Put on compression stockings/ Eat lower sodium foods/ Take medication every single dayCOPD CONTINGENCY PLANLast updated: 11/22/2024[facility] to call for the following symptoms: Exertional dyspnea/ Increased cough / WheezingPlanned intervention: Levofloxacin 500mg daily x 5 daysFALL CONTINGENCY PLANMember to call for the following symptoms: Fall / Pre-syncope/ Refusing to use cane / WeaknessPlanned intervention: Order x-ray at [facility] or local hospital Assess for [...] current symptoms or concerns.UTI CONTINGENCY PLANLast updated: 02/27/2025[facility] to call for the following symptoms: Dysuria/ Fever/ Urinary frequencyPlanned intervention: Encourage increased fluid intake/ Treat temperature with Tylenol 1gm PO/ Nitrofurantoin 100mg BID x5dCOPD CONTINGENCY PLANLast updated: 11/22/2024[facility] to call for the following symptoms: Exertional dyspnea/ Increased cough / WheezingPlanned intervention: Levofloxacin 500mg daily x 5 daysFALL CONTINGENCY PLANMember to call for the following symptoms: Fall / Pre-syncope/ Refusing to use cane / WeaknessPlanned intervention: Order x-ray at [facility] or local hospital Assess for change in mental status and provide reassurance if none (patient's Baseline is a/o x2) / Review importance of sitting for two to three minutes prior to standing after laying down 2025-04-02 07:04:42 Medication Review by prescribing provider or pharmacist documented (1160F)Medication List Documented (1159F)Functional Status Assessed (1170F)Advance Care Directive Advance care planning discussion documented in the medical record (1158F)SBP < 130 (3074F)DBP <80 (3078F)Advance care planning discussed and documented advance care plan or surrogate decision-maker was documented in the medical record. (1123F)Estab. patient 20-29min; 1 stable chronic or 2 minor; add add modifier 95 for video, modifier 93 for phoneBMI obtained (3008F)Most recent A1c (HbA1c) or GMI level 7-7.9% (3051F)Pain Assessment - Pain Documented on a Pain Scale (1125F)Continue to see PCP. Follow-up with [facility] as needed for any acute or disease education needs that may arise.-start diclofenac-f/u with PCP and P.T.-move as ablecontinues on coumadinmtr INRsmtr for any s+s of bleedingmetoprolol for rate controladvair, fluticasonefu w pulmonaryon Room Air -Stable-continue to f/u with PCP/specialists-continue rx'd medications-report changes in chronic conditioncont lasix statin metoprololfu w cardiologycont humalog, lantus, metformin, trulicty A1c : 7.6 (03/07/2025) outside care -Stable-continue to f/u with PCP/specialists-continue rx'd medications-report changes in chronic daznxlidjkflfsooyy-Pjiytz-dlxqyclo to f/u with PCP/specialists-continue rx'd medications-report changes in chronic conditionlevothyroxinefu w endomtr tshBMI 37.2 with comorbidity: HTN, HL, DM move as much as possible fu w pcpmtr labsin 95cont statin, antihypertensiveson coumadin for afibmtr cbc.ferritinno s+s of bleedingMonitor for weight gain, SOB, PND and Edema.. Keep a wt log. Call for 3 lb wt gain in a day or 5 lbs in a week.2g Na restricted diet and <1500 ml fluids restriction. Check blood pressure daily and when not feeling wellReport consistent blood pressures readings >140/902/06/24: ENERGY ADVISOR reports that in the last couple of days the patient's toes have been pink and sensitive to touch, denies uncontrolled pain to touch. She has an appointment with the farm mechanic on monday for further evaluation.01/28/25: Patient denies BLE edema or dyspnea, denies any acute concerns.Notify provider with any changes in behavior, difficulty sleeping, or new/worsening depressive symptoms.Encourage low sodium diet. Encouraged daily blood pressure checks and tracking. Instructed patient to notify CB or PCP if blood pressure >140/90 or <90/50.HEART FAILURE CONTINGENCY PLANLast updated: 04/02/2025Member to call for the following symptoms: Edema/ FatiguePlanned intervention: Increase furosemide (Lasix) to 80 mg for 3 daysIncontinence supplies ordered on 11/22-[facility] the patient has unsteady gait with walking, requires assistance during ambulation. Hx of falls.-Patient has daily VNA and ENERGY ADVISOR services. She lives alone in a third floor apartment with close family support from daughter. Daughter requesting increase in ENERGY ADVISOR hoursPCA- Sully -Advised to reach out to [facility] cc Virgil currently approximate 30hours per weekCognition Status: Oriented to Person, Place and TimeADL: Bathing Needs Assistance , Dressing Needs Assistance , Eating Independent , Ambulation Needs Assistance , Transferring Needs Assistance and Toileting Needs AssistanceIADL: Medication Needs Assistance , Meal Prep Needs Assistance , Shopping Needs Assistance , Driving or Public Transport Needs Assistance , Housework Needs Assistance , Finances Needs AssistanceHow many falls within the last 6 months? yes 01/2025 with fracture Near falls within the last 6 months? yesDo you feel unsteady on your feet? YesDo you worry about falling? YesDME used with ambulation: CaneSocial Supports - # of Interactions with Friends/Family in a typical week: dailyAdvance Care Plan and Serious Illness ConversationDate of Conversation: 04/02/2025Life Limiting Diagnosis: Diagnosis: HFCurrently on Hospice NoDo you have a Durable Power of Doughnut Icer for Healthcare, or Healthcare Proxy Or Guardianship? Yes, preferred proxy but not named POAIf so, Who? HCP: Tressa Sethi Do you have a written Advance Directive? Has Advance DirectivePrognostic Understanding: Underestimates prognosisInformation: Patient does not want any information for him/herselfToday's prognostic communication: Incurable, life expectancy several months to a yearGoals: be at home Fears/Worries: pain Strength: her cat, novelas, coffee and bread Discussion: extensive discussion with family about goals and wishesCode Status: YES CPR: Attempt ResuscitationGoals of Care: Curative: Attempt to sustain life by all medically effective meansNutrition goals: Feeding through new or existing surgically placed tube is ok Today's plan: Repeat discussion in < 12> monthsOther details of discussion: (Who was present, : member and ZEH-Ddkudt-yorsoazu to f/u with PCP/specialists-continue rx'd medications-report changes in chronic condition-loose stools after GLP1 injections-resolves within 2-3 days-HOLD stool softener -report bloody diarrhea-start diclofenac-f/u with PCP and P.T.-move as able Goals Date Goal 2022-08-25 fu w pcp, [...] PCP and Specialist. Health Concerns Date Concern 2025-04-02 Patient/Guardian russell tidwell to visit via telehealth. Today, patient has chief complaint of: annual visit.Visit completed via:[x] audio and video; [ ] audio onlyInformed verbal consent was obtained from this patient to communicate and provide care using virtual and other telecommunications tools. This patient has been explained the risks, if any, related to the encounter. I explained that care provided through video or audio communication cannot replace the need for physical examination or an in-person visit for some disorders or urgent problems. 2025-04-02 Concerns for today's visit:join pain all over with decreased ROM UE and LE and increasing unsteady gait.Reviewed allergies, medications, active medical conditions, past medical and surgical history, social history. 2025-04-02 Most recent hospital stay or ER visit:(02/13/25-02/15/25)Patient presented after being found on the floor after a fall last night. Head, C-spine, head and lumbar spine CT scan showed no acute fractures orfindings. 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 UA consistent with UTI including hematuria. Treated with IV ceftriaxone and to continue on cefuroxime for 3 more days. Noted to have hypokalemia at 3.1 meq/l and hypomagnesemia 1.4. ECG with prolonged QT at 548 ms. Potassium and magnesium corrected.Discussed our goal of helping the member have more days at home rather than in the ER or the hospital. 2025-04-02 Open HEDIS Measures: No open measures 2025-04-02 Advance Care [place] silva ConversationAdvance Care Plan and Serious Illness ConversationDate of Conversation: 04/02/2025Life Limiting Diagnosis: Diagnosis: HFCurrently on Hospice NoDo you have a Durable Power of Doughnut Icer for Healthcare, or Healthcare Proxy Or Guardianship? Yes, preferred proxy but not named OMARf so, Who? HCP: Tressa Sethi Do you have a written Advance Directive? Has Advance DirectivePrognostic Understanding: Underestimates prognosisInformation: Patient does not want any information for him/herselfToday's prognostic communication: Incurable, life expectancy several months to a yearGoals: be at home Fears/Worries: pain Strength: her cat, novelas, coffee and bread Discussion: extensive discussion with family about goals and wishesCode Status: YES CPR: Attempt ResuscitationGoals of Care: Curative: Attempt to sustain life by all medically effective meansNutrition goals: Feeding through new or existing surgically placed tube is ok Today's plan: Repeat discussion in < 12> monthsOther details of discussion: (Who was present, : member and ENERGY ADVISOR 2025-04-02 Functional Assessmen tCognition Status: Oriented to Person, Place and TimeADL: Bathing Needs Assistance , Dressing Needs Assistance , Eating Independent , Ambulation Needs Assistance , Transferring Needs Assistance and Toileting Needs AssistanceIADL: Medication Needs Assistance , Meal Prep Needs Assistance , Shopping Needs Assistance , Driving or Public Transport Needs Assistance , Housework Needs Assistance , Finances Needs AssistanceHow many falls within the last 6 months? yes 01/2025 with fracture Near falls within the last 6 months? yesDo you feel unsteady on your feet? YesDo you worry about falling? YesDME used with ambulation: CaneSocial Supports - # of Interactions with Friends/Family in a typical week: daily 2025-04-02 member UTD: influenz a, COVID, pneumococcal, and RSV Vaccines 2025-04-02 out reach to Virgil JONES cc
--- OUTSIDE RECORDS SUMMARY | 2025-04-25 11:13 | XMS_ITS | Patient Health Record ---
Author Organization [facility] Address [address] [place] [address] Care Team Providers Care Paving Inspector Name Role Phone Tyler Garsia Unavailable [phone] Reason For Referral No Information Plan Of Treatment No Information
--- OUTSIDE RECORDS SUMMARY | 2025-04-25 11:13 | XMS_ITS | Encounter Summary ---
Author Organization [employer] Address [address] [facility] 7t [place] [address] Care Team Providers Care Transportation Clerk Name Role Phone Valeri Lerner DO Primary Care Provider [phone] Batsheva Gomez PharmD Unavailable Reason for Visit * Reason Onset Date Comments Nurse Triage 01/18/2024 Encounter Details Date Type Department Care Team (Late st Contact Info) Description 01/18/2024 Telephone [facility] MEDICINE [address] [place], [place] [phone] Valeri Lerner DO [address] [place], [place] [phone] Nurse Triage Social History Tobacco Use Types [...] the past 12 months, has t he [employer], gas, oil or water company threatened to [...] Artemio with VNA on any medication changes [phone]. Daughter made aware of home care recommendations, [...] accepted this outcome Please contact pt at [phone] documented in this encounter Plan of Treatment Upcoming Encounters Date Type Department Care Team ([facility] st Contact Info) Description 05/16/2025 1:30 PM EDT Office Visit [facility] OPTOMETRY [address] [place] [address] [phone] TodAi, OD [address] [place] [address] documented as of this encounter Visit Diagnoses Not on filedocumented in this encounter Additional Health Concerns Assessment Noted Time PHQ-9 Depression Total Score: 2 08/23/19 24 11:01 AM EST documented as of this encounter Care Teams Transportation Clerk Relationship Specialty Start Date End Date Valeri Lerner DO [address] [place] [address] PCP - General Family Medicine 07/13/12 Batsheva Gomez PharmD [address] [place] [address] [phone] Pharmacist Internal Medicine 03/07/24 12/19/24 [email or web address] 12/08/23 documented as of this encounter
--- OUTSIDE RECORDS SUMMARY | 2025-04-25 11:13 | XMS_ITS | Encounter Summary ---
Author Organization [employer] Address [address] [facility] 7t [place] [address] Care Team Providers Care Senior Web Designer Name Role Phone Valeri Lerner DO Primary Care Provider Batsheva Gomez PharmD Unavailable Reason for Visit * Reason Comments Med Refill Encounter Details Date Type Department Care Team (Late st Contact Info) Description 09/12/2023 Refill [facility] MEDICINE [address] [place], [place] [phone] Valeri Lerner DO [address] [place] [address] Generalized anxiety disorder Social History Tobacco Use [...] the past 12 months, has t he [employer], gas, oil or water company threatened to [...] Description 05/16/2025 1:30 PM EDT Office Visit [facility] OPTOMETRY [address] [place] [address] Ai Baron, KEMI [address] [place] [address] documented as of this encounter Visit Diagnoses Diagnosis Generalized anxiety disorder documented in this encounter Additional Health Concerns Assessment Noted Time PHQ-9 Depression Total Score: 2 08/23/19 24 11:01 AM EST documented as of this encounter Care Teams Senior Web Designer Relationship Specialty Start Date End Date Valeir Lerner DO [address] [place] [address] PCP - General Family Medicine 07/13/12 Batsheva Gomez PharmD [address] [place] [address] Pharmacist Internal Medicine 03/07/24 12/19/24 [employer] 12/08/23 documented as of this encounter
--- OUTSIDE RECORDS SUMMARY | 2025-04-25 11:13 | XMS_ITS | Encounter Summary ---
Author Organization [email or web address] Address [address] [facility] 7t [place] [address] Care Team Providers Care Cat Cracker Operator Name Role Phone Valeri Lerner DO Primary Care Provider [phone] Batsheva Gomez PharmD Unavailable [phone] Encounter Details Date Type Department Care Team (Late st Contact Info) Description 01/26/2024 Telephone [facility] MEDICINE [address] [place], [place] [phone] Valeri Lerner DO [address] [place], [place] [phone] Social History Tobacco Use Types Packs/Day Years [...] Description 05/16/2025 1:30 PM EDT Office Visit [facility] OPTOMETRY [address] [place] [address] Tod, Ai, OD [address] [place] [address] documented as of this encounter Visit Diagnoses Not on filedocumented in this encounter Additional Health Concerns Assessment Noted Time PHQ-9 Depression Total Score: 2 08/23/19 24 11:01 AM EST documented as of this encounter Care Teams Cat Cracker Operator Relationship Specialty Start Date End Date Valeri Lerner DO [address] [place] [address] PCP - General Family Medicine 07/13/12 Batsheva Gomez PharmD [address] [place] [address] Pharmacist Internal Medicine 03/07/24 12/19/24 [employer] 12/08/23 documented as of this encounter
--- OUTSIDE RECORDS SUMMARY | 2025-04-25 11:13 | XMS_ITS | Encounter Summary ---
Author Organization [employer] Address [address] [facility] 7t [place] [address] Care Team Providers Care Senior Web Applications Developer Name Role Phone Valeri Lerner DO Primary Care Provider [phone] Batsheva Gomez PharmD Unavailable [phone] Reason for Visit * Reason Comments Med Refill Encounter Details Date Type Department Care Team (Late st Contact Info) Description 06/20/2023 Refill [facility] MEDICINE [address] [place] [address] Valeri Lerner DO [address] [place] [address] Social History Tobacco Use Types Packs/Day Years [...] 1:30 PM EDT Office Visit [facility] OPTOMETRY [address] [place] [address] Tod, Ai, OD [address] [place] [address] documented as of this encounter Visit Diagnoses Not on filedocumented in this encounter Care Teams Senior Web Applications Developer Relationship Specialty Start Date End Date Valeri Lerner DO [address] [place] [address] PCP - General Family Medicine 07/13/12 Batsheva Gomez PharmD [address] [place] [address] Pharmacist Internal Medicine 03/07/24 12/19/24 [employer] 12/08/23 documented as of this encounter
--- OUTSIDE RECORDS SUMMARY | 2025-04-25 11:13 | XMS_ITS | Encounter Summary ---
Author Organization [employer] Address [address] [facility] 7t [place] [address] Care Team Providers Care Barbed Wire Machine Operator Name Role Phone Valeri Lerner DO Primary Care Provider [phone] Encounter Details Date Type Department Care Team ([facility] st Contact Info) Description 12/24/2024 Telephone [facility] MEDICINE [address] [place], [place] [phone] Valeri Lerner DO [address] [place], [place] [phone] Social History Tobacco Use Types Packs/Day Years [...] 1:30 PM EDT Office Visit [facility] OPTOMETRY [address] [place] [address] TodAi raman, OD [address] [place] [address] documented as of this encounter Goals Goal [...] Result Component 7.6( 1:53 PM EDT) No Puia, Batsheva, PharmD documented as of this encounter Visit Diagnoses Not on filedocumented in this encounter Additional Health Concerns Assessment Noted Time PHQ-9 Depression Total Score: 0 07/15/20 24 11:32 AM EST documented as of this encounter Care Teams Barbed Wire Machine Operator Relationship Specialty Start Date End Date Valeri Lerner DO [address] [place] [address] PCP - General Family Medicine 07/13/12 [employer] 12/08/23 documented as of this encounter
--- OUTSIDE RECORDS SUMMARY | 2025-04-25 11:13 | XMS_ITS | Patient Health Record ---
[facility] Organization [facility] Address [address] [facility] [place] [address] Care Team Providers Care Lawyer Real Estate Name Role Phone Valeri Lerner Primary Care Provider Keenan Lowery Unavailable [phone] Allergies Allergen (clinical drug ingredient) Drug/Non Drug [...] Lab: Notes/Report: HEMOGLOBIN A1C % (HH) 7.0 HEMOGLOBIN A1C (GLYCOHEMOGLO BIN) Reviewed date:01/13/2025 03:34:33 PM Interpretation: Performing Lab: Notes/Report: HEMOGLOBIN A1C % (HH) 7.1 Reason For Referral No Information Medications Medication SIG (Take, Route, Frequency, Duration) Notes Start Date End Date Status Fluticasone Propionate Active Ipratropium [place] Active Insulin Lispro Activ e Arestin Not-Taking Advair Diskus Active Levothyroxine Sodium 100 MCG 1 capsule in the morning on an empty stomach Orally Once a day Active Metformin & Diet Manage Prod Active Mephyton Not-Taking Simvastatin Not-Taki ng Tab-A-Judith Active HumaLOG KwikPen 100 UNIT/ML INJECT 24 - 28 units WITH BREAKFAST, INJECT 24 UNITS WITH LUNCH, AND INJECT 26 UNITS WITH DINNER Subcutaneous; Duration: 18 Not-Taking Vitamin D3 50 MCG (1999 UT) 1 capsule Orally Once a day Active Trulicity Not-Taking Atorvastatin Calcium 20 MG 1 tablet Orally Once a day Active VESIcare 10 MG Orally Not-T aking Furosemide 20 MG 1 tablet Orally Once a day Active Lasix Not-Taking Sucralfate Not-Takin g Docusate Sodium Not- Taking Extra Depth Orthopedic Shoes, (1) Pair With (3) Pair Custom Heat Molded Multidensity Innersoles Dx: NIDDM/PVD(E11.51), Hammertoe Foot Deformity(M20.41,M20.42) , Preulcerative Skin Lesion(s)(L85.1) Wear Daily; Duration: 365 days 08/16/2024 Active Ciclopirox Olamine 0.77 % APPLY TOPICALLY TO SKIN OF FEET AND TOES TWICE DAILY DIRECTED; Duration: 30 Active clonazePAM Not-Takin g Metoprolol & Diet Manage Prod Active Warfarin Sodium 3 MG Orally Active Lantus SoloStar 100 UNIT/ML INJECT 28 UNITS EVERY DAY DIRECTED Subcutaneous; Duration: 54 Active Omeprazole 20 MG Orally Act cliff Sertraline HCl 50 MG Orally Active Immunizations Vaccine Route Administration Date Status Comme nts Influenza Unknown 05/30/2016 Administered Influenza Unknown 04/03/2017 Administered Influenza Unknown 04/30/2018 Administered Influenza Unknown 04/30/2024 Administered Social History Tobacco Use: Social History [...] Problem Acquired hammer toe of right foot (9996844488539 105) Other hammer toe(s) (acquired), right foot (M20.41) Active confirmed Problem Type 2 diabetes mellitus with peripheral angiopathy (709676332) Type 2 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) Active confirmed Q7(A), Q8(2B), Q9(1B,2C) Problem Acquired hammer toe of left foot (4812228510573 103) Other hammer toe(s) (acquired), left foot (M20.42) Active confirmed Vital Signs Blood pressure diastolic 65 mm Hg 04/18/2025 Height 5 ft 5 in in 04/18/2025 Blood pressure systolic 140 mm Hg 04/18/2025 Weight 230 lbs 04/18/2025 BMI 38.27 kg/m2 04/18/2025 Procedures Procedure Date Ordered Date Performed Result Body Sit e 93220-FZLSDIK NAIL, 6 OR MORE 08/16/2024 N/A 91642-DXPY SKIN LESIONS, OVER 4 08/16/2024 N/A 25166-TPCBILC NAIL, 6 OR MORE 01/10/2025 N/A 24551-WXEL SKIN LESIONS, OVER 4 01/10/2025 N/A 35828-UCOZNJY NAIL, 6 OR MORE 04/18/2025 N/A 26674-FDIU SKIN LESIONS, OVER 4 04/18/2025 N/A Encounters Encounter Location Date Provider Diagnosis [address] [address] 08/16/2024 Keenan Dyer Type 2 diabetes mellitus with diabetic peripheral angiopathy without gangrene E11.51 ; Tinea unguium B35.1 ; Pain in right toe(s) M79.674 ; Pain in left toe(s) M79.675 ; Other hammer toe(s) (acquired), left foot M20.42 ; Other hammer toe(s) (acquired), right foot M20.41 and Tinea pedis of both feet B35.[address] [address] 01/10/2025 Keenan Dyer Type 2 diabetes mellitus with diabetic peripheral angiopathy without gangrene E11.51 ; Other hammer toe(s) (acquired), right foot M20.41 ; Tinea unguium B35.1 ; Pain in right toe(s) M79.674 ; Pain in left toe(s) M79.675 ; Other hammer toe(s) (acquired), left foot M20.42 and Tinea pedis of both feet B35.[address] [address] 04/18/2025 Keenan Dyer Type 2 diabetes mellitus with diabetic peripheral angiopathy without gangrene E11.51 ; Tinea unguium B35.1 ; Pain in right toe(s) M79.674 ; Pain in left toe(s) M79.675 and Tinea pedis of both feet B35.[address] [address] 05/16/2024 [facility] [address] 01/10/2025 [facility] [address] 01/10/2025 Keenan Dyer Assessments Encounter Date Diagnosis (ICD Code) Assessment Notes Treatment Notes Treatment Clinical Notes Section Notes 08/16/2024 Type 2 diabetes mellitus with diabetic peripheral angiopathy without gangrene (ICD-10 - E11.51) Q7(A), Q8(2B), Q9(1B,2C) 01/10/2025 Other hammer toe(s) (acquired), right foot (ICD-10 - M20.41) 01/10/2025 Type 2 diabetes mellitus with diabetic peripheral angiopathy without gangrene (ICD-10 - E11.51) Q7(A), Q8(2B), Q9(1B,2C) 04/18/2025 Type 2 diabetes mellitus with diabetic peripheral angiopathy without gangrene (ICD-10 - E11.51) Q7(A), Q8(2B), Q9(1B,2C) 04/18/2025 Tinea unguium (ICD-10 - B35.1) 04/18/2025 Pain in right toe(s) (ICD-10 - M79.674) 01/10/2025 Tinea unguium (ICD-10 - B35.1) 08/16/2024 Tinea unguium (ICD-10 - B35.1) 01/10/2025 Pain in right toe(s) (ICD-10 - M79.674) 08/16/2024 Pain in right toe(s) (ICD-10 - M79.674) 04/18/2025 Pain in left toe(s) (ICD-10 - M79.675) 04/18/2025 Tinea pedis of both feet (ICD-10 - B35.3) 01/10/2025 Pain in left toe(s) (ICD-10 - M79.675) 08/16/2024 Pain in left toe(s) (ICD-10 - M79.675) 08/16/2024 Other hammer toe(s) (acquired), left foot (ICD-10 - M20.42) 01/10/2025 Other hammer toe(s) (acquired), left foot (ICD-10 - M20.42) 01/10/2025 Tinea pedis of both feet (ICD-10 - B35.3) 08/16/2024 Other hammer toe(s) (acquired), right foot (ICD-10 - M20.41) Patient Educated with: DIABETIC FOOT CARE INSTRUCTIONS.p df (DIABETIC FOOT CARE INSTRUCTIONS.p df) 08/16/2024 Tinea pedis of both feet (ICD-10 - B35.3) Plan Of Treatment Pending Test Test Name Order Date 33818-CNZGYDP NAIL, 6 OR MORE 10/27/2016 07689-GLYUCFK NAIL, 6 OR MORE 05/09/2017 08177-UKOAWTE NAIL, 6 OR MORE 08/21/2017 64560-GDBTXTJ NAIL, 6 OR MORE 01/26/2017 14575-QLNVDYR NAIL, 6 OR MORE 01/29/2018 41437-LPDBUAJ NAIL, 6 OR MORE 07/09/2018 02308-QUPQVGY NAIL, 6 OR MORE 11/22/2018 66908-MMIKPOY NAIL, 6 OR MORE 08/16/2024 88210-FHRSHAH NAIL, 6 OR MORE 01/10/2025 39934-CRVDZOA NAIL, 6 OR MORE 04/18/2025 84640-QAHDCSH NAIL, 1-5 12/21/2015 86306-VVWTRVM NAIL, 1-5 05/30/2016 93611-OLROYUN NAIL, 1-5 02/18/2015 96332-PNYATFZ NAIL, 1-5 05/27/2015 06989-PZUICPZ NAIL, 1-5 09/23/2015 94440-Ehzyawcy Plate 02/18/2015 19522-Suwacodw Plate 05/30/2016 11155-Pzuifktt Plate 12/21/2015 88206-Uflvvqaf Plate 09/23/2015 38445-Pcwvuixl Plate 10/27/2016 78074-Rbmrhcyq Plate 01/07/2019 37502-GQPL SKIN LESIONS, OVER 4 07/09/20 18 16784-FTNQ SKIN LESIONS, OVER 4 05/09/20 17 54546-USIB SKIN LESIONS, OVER 4 04/18/20 25 15831-QVSJ SKIN LESIONS, OVER 4 11/23/19 19 68511-WIOP SKIN LESIONS, OVER 4 01/11/20 25 79876-MPYT SKIN LESIONS, OVER 4 08/16/19 25 32582-VHDO SKIN LESIONS, OVER 4 10/28/19 17 55353-ZTQX SKIN LESIONS, OVER 4 01/27/20 17 85304-XHJF SKIN LESIONS, OVER 4 08/21/19 18 94857-JUQE SKIN LESIONS, OVER 4 01/30/20 18 12793-MMUE SKIN LESIONS, 2 TO 4 02/19/20 15 56690-VEFC SKIN LESIONS, 2 TO 4 05/27/20 15 95832-COAH SKIN LESIONS, 2 TO 4 09/23/19 16 22553-LFWL SKIN LESIONS, 2 TO 4 12/21/19 16 33084-HXNZ SKIN LESIONS, 2 TO 4 05/30/20 16 85113-Sbka. Subungual Hematoma 9 P8091-IWAFWIAM DYSTROPHIC NAILS ANY # Y9914-VBCBWFOT DYSTROPHIC NAILS ANY # H4319-MWXCDEIY DYSTROPHIC NAILS ANY # D2840-HBZCRUDF DYSTROPHIC NAILS ANY # Next Appt Details Provider Name:Keenan Janel HopkinsManisha , 08/15/2025 12:45:00 PM, [address] [place] [address], [phone], Insurance Providers Payer Name Payer Address Payer Phone Subscriber Number Group Number Insured Name Patient Relationship to Insured Coverage Start Date Coverage End Date [employer] Medicare-[id number] [address] [place] [phone] [id number] Nikky Morgan Self - patient is the insured Medical (General) History Medical History History ICD Code Anxiety Arthritis asthma Back,Hip,and Knee pain Broken bones Diabetic Stroke Thyroid disorder blood clots Gout Heart disease Surgical History Surgery Date(Month/Year) cataract surgery left eye 11/09/2018 Hospitalization History Reason Date(Month/Year) [facility] for a cough 2018
--- OUTSIDE RECORDS SUMMARY | 2025-04-25 11:13 | XMS_ITS | Clinical Summary ---
Author Organization [facility] Address [address] [place] [address] Phone Care Team Providers Care Restaurant Supervisor Name Role Phone Unavailable Primary Care Provider Unavailabl e Social History Tobacco Use Types Packs/Day Years Used Date Smoking Tobacco: Never Assessed Education Answer Date Recorded Are you interested in more education? Not on patrica e 11/26/2022 Are you concerned about learning? Not on file 11/26/2022 No 11/26/2022 No 11/26/2022 Digital Access Answer Date Recorded No 12/27/2022 No 12/27/2022 Reliable internet access at home? Not on file 12/27/2022 Device with a working camera? Not on file Comments Unknown Sex and Gender Information Value Date Recorded Sex Assigned at Not on file Legal Sex Female 4:06 PM EST Gender Identity Not on file Sexual Orientation Not on file Plan of Treatment Not on file Medical Devices Not on file Additional Source Comments The information contained in this document represents components of the legal health record. It is not the complete legal health record.[facility]
--- OUTSIDE RECORDS SUMMARY | 2025-04-25 11:13 | XMS_ITS | Encounter Summary ---
Author Organization [employer] Address [address] [place] [address] 7t [place] [address] Care Team Providers Care Inspector Machine Parts Name Role Phone Valeri Lerner DO Primary Care Provider [phone] Batsheva Gomez PharmD Unavailable [phone] Encounter Details Date Type Department Care Team (Late st Contact Info) Description 09/23/2022 Abstract [facility] MEDICINE [address] [place], [place] [phone] Valeri Lerner DO [address] [place] [address] Social History Tobacco Use Types Packs/Day Years [...] Description 05/16/2025 1:30 PM EDT Office Visit [facility] OPTOMETRY [address] [place], [place] [phone] Ai Baron, OD [address] [place] [address] documented as of this encounter Visit Diagnoses Not on filedocumented in this encounter Care Teams Inspector Machine Parts Relationship Specialty Start Date End Date Valeri Lerner DO [address] [place], [place] [phone] PCP - General Family Medicine 07/13/12 Batsheva Gomez PharmD [address] [place], [place] [phone] Pharmacist Internal Medicine 03/07/24 12/19/24 [employer] 12/08/23 documented as of this encounter
--- OUTSIDE RECORDS SUMMARY | 2025-04-25 11:14 | XMS_ITS | Encounter Summary ---
Author Organization [facility] Address [address] [place] [address] Care Team Providers Care Public Housing Manager Name Role Phone Valeri Lerner DO Primary Care Provider [phone] Encounter Details Date Type Department Care Team (Late st Contact Info) Description 10/30/2024 Lab Requisition [facility] - Main Lab [address] [place] [address] Kymberly Horne MD [address] [phone] Type 2 diabetes mellitus without complications (CMS/HCC V24, CMS/HCC V28) Social History Tobacco [...] Procedure Name Priority Date/Time Associated Diagnosis Comments HEMOGLOBIN A1C Routine 10/30/2024 7:51 AM EDT Type 2 diabetes mellitus without complications documented in this encounter Results * (ABNORMAL) Hemoglobin A1c (10/30/2024 7:51 AM EDT) Hemoglobin A1C 7.4(H) <6.5 % LAB CHEMISTRY METHOD 10/30/2024 1:50 PM EDT [facility] Mean Bld Glu Estim. 166 mg/dL LAB CHEMISTRY METHOD 10/30/2024 1:50 PM EDT [facility] Blood Venous blood specimen / Unknown Venipuncture / Unknown 10/30/2024 7:51 AM EDT 10/30/2024 10:03 AM EDT us Kymberly Horne MD LAB BLOOD ORDERABLES Fin al Result [facility] ([facility]) [facility] [address] [place] [address], documented in this encounter Visit Diagnoses Diagnosis Type 2 diabetes mellitus without complications (CMS/HCC V24, CMS/HCC V28) documented in this encounter Care Teams Public Housing Manager Relationship Specialty Start Date End Date Valeri Lerner DO [address] [place] [address] PCP - General 11/15/14 documented as of this encounter
--- OUTSIDE RECORDS SUMMARY | 2025-04-25 11:14 | XMS_ITS | Encounter Summary ---
Author Organization [employer] Address [address] [place] [address] 7t [place] [address] Care Team Providers Care Steam Conditioner Operator Name Role Phone Valeri Lerner DO Primary Care Provider [phone] Batsheva Gomez PharmD Unavailable Reason for Visit * Reason Comments Med Refill Encounter Details Date Type Department Care Team (Late st Contact Info) Description 08/28/2022 Refill [facility] MEDICINE [address] [place] [address] Valeri Lerner DO [address] [place], [place] [phone] Chronic constipation (Primary Dx) Social History Tobacco [...] Description 05/16/2025 1:30 PM EDT Office Visit [facility] OPTOMETRY [address] [place] [address] Ai Baron, OD [address] [place] [address] documented as of this encounter Visit Diagnoses Diagnosis Chronic constipation- Primary Unspecified constipation documented in this encounter Care Teams Steam Conditioner Operator Relationship Specialty Start Date End Date Valeri Lerner DO [address] [place], [place] [phone] PCP - General Family Medicine 07/13/12 Batsheva Gomez PharmD [address] [place], [place] [phone] Pharmacist Internal Medicine 03/07/24 12/19/24 [employer] 12/08/23 documented as of this encounter
--- OUTSIDE RECORDS SUMMARY | 2025-04-25 11:14 | XMS_ITS | Encounter Summary ---
Author Organization [facility] Address [address] [place] [address] Care Team Providers Care Wrapper Stripper Name Role Phone Valeri Lerner DO Primary Care Provider [phone] Encounter Details Date Type Department Care Team (Late st Contact Info) Description 11/01/2024 Lab Requisition [facility] - Main Lab [address] [facility] [place] [address] Amrita Polanco MD [address] [place] [id number] Heart failure, unspecified (CMS/HCC V24, CMS/HCC V28) [...] sec LAB COAGULATION METHOD 11/01/2024 9:58 AM [facility] INR 1.2 LAB COAGULATION METHOD 11/01/2024 9:58 AM [facility] Blood Venous blood specimen / Unknown Venipuncture / Unknown 11/01/2024 6:48 AM EDT 11/01/2024 9:35 AM EDT us Amrita Polanco MD LAB BLOOD ORDERABLES Final Resu lt [facility] ([facility]) [facility] [address] [place] [address], documented in this encounter Visit Diagnoses Diagnosis Heart failure, unspecified (CMS/HCC V24, CMS/HCC V28) Heart failure, unspecified documented in this encounter Care Teams Wrapper Stripper Relationship Specialty Start Date End Date Valeri Lerner DO [address] [place] [address] PCP - General 11/15/14 documented as of this encounter
--- OUTSIDE RECORDS SUMMARY | 2025-04-25 11:14 | XMS_ITS | Encounter Summary ---
Author Organization [facility] Address [address] [place] [address] Care Team Providers Care Undercar Specialist Name Role Phone Valrei Lerner DO Primary Care Provider [phone]- [phone] Encounter Details Date Type Department Care Team (Latest Contact Info) Description 10/22/2024 Lab Requisition [facility] - Main Lab [address] [facility] [place] [address] Amrita Polanco MD [address] [place] [address] Essential (primary) hypertension; Unspecified atrial fibrillation (CMS/HCC V24, CMS/HCC V28); Type 2 diabetes mellitus without complications (CMS/HCC [...] Diagnosis Comments PROTHROMBIN TIME WITH INR Routine 10/22/2024 6:16 AM EDT Essential (primary) hypertension Unspecified atrial fibrillation (CMS/HCC) Type 2 diabetes mellitus without complications COMPLETE BLOOD COUNT Routine 10/22/2024 6:16 AM EDT Essential (primary) hypertension Unspecified atrial fibrillation (CMS/HCC) Type 2 diabetes mellitus without complications BASIC METABOLIC PANEL Routine 10/22/2024 6:16 AM EDT Essential (primary) hypertension Unspecified atrial fibrillation (CMS/HCC) Type 2 diabetes mellitus without complications documented in this encounter Results * (ABNORMAL) Basic metabolic panel (10/22/2024 6:16 AM EDT) Sodium 142 133 - 145 mmol/L LAB CHEMISTRY METHOD 10/22/2024 11:07 AM [facility] Potassium 3.6 3.5 - 5.5 mmol/L LAB CHEMISTRY METHOD 10/22/2024 11:07 AM [facility] Chloride 105 96 - 110 mmol/L LAB CHEMISTRY METHOD 10/22/2024 11:07 AM [facility] CO2 30 21 - 32 mmol/L LAB CHEMISTRY METHOD 10/22/2024 11:07 AM [facility] Anion Gap 7 3 - 11 LAB CHEMISTRY METHOD 10/22/2024 11:07 AM [facility] Glucose 85 70 - 100 mg/dL LAB CHEMISTRY METHOD 10/22/2024 11:07 AM [facility] BUN 22 5 - 25 mg/dL LAB CHEMISTRY METHOD 10/22/2024 11:07 AM [facility] Creatinine 1.22(H) 0.50 - 1.10 mg/dL LAB CHEMISTRY METHOD 10/22/2024 11:07 AM [facility] eGFR 43(L) >=60 mL/min/1. 73m2 LAB CHEMISTRY METHOD 10/22/2024 11:07 AM [facility] Comment:Calculation based on the Chronic Kidney Disease Epidemiology Collaboration (CKD-EPI) equation refit without adjustment for race. BUN/Creatinine Ratio 18.0 LAB CHEMISTRY METHOD 10/22/2024 11:07 AM [facility] Calcium 9.9 8.5 - 10.5 mg/dL LAB CHEMISTRY METHOD 10/22/2024 11:07 AM [facility] Blood Venous blood specimen / Unknown Venipuncture / Unknown 10/22/2024 6:16 AM EDT 10/22/2024 9:34 AM EDT us Amrita Polanco MD LAB BLOOD ORDERABLES Final Resu lt [facility] [address] [place] [address], [place] [phone] * (ABNORMAL) Prothrombin time with INR (10/22/2024 6:16 AM EDT) Pathologist [facility] Protime 36.0(H) 10.6 - 13.9 sec LAB COAGULATION METHOD 10/22/2024 10:31 AM EDT [facility] INR 2.9 LAB COAGULATION METHOD 10/22/2024 10:31 AM EDT [facility] Blood Venous blood specimen / Unknown Venipuncture / Unknown 10/22/2024 6:16 AM EDT 10/22/2024 9:34 AM EDT us Amrita Polanco MD LAB BLOOD ORDERABLES Final Resu lt Performing Organization Address [facility]/ZIP Co de Phone Number [facility] [address] [place] [address], [place] [phone] * (ABNORMAL) Complete blood count (10/22/2024 6:16 AM EDT) [facility] WBC 9.2 4.8 - 10.8 K/[facility] LAB HEMETOLOGY METHOD 10/22/2024 10:30 AM EDT [facility] RBC 3.70(L) 3.80 - 4.80 M/[facility] LAB HEMETOLOGY METHOD 10/22/2024 10:30 AM EDT [facility] Hemoglobin 11.4(L) 11.5 - 16.0 g/dL LAB HEMETOLOGY METHOD 10/22/2024 10:30 AM EDT [facility] Hematocrit 35.8 35.0 - 47.0 % LAB HEMETOLOGY METHOD 10/22/2024 10:30 AM EDT [facility] MCV 96.8 79.0 - 98.0 FL LAB HEMETOLOGY METHOD 10/22/2024 10:30 AM EDT [facility] MCH 30.8 27.0 - 32.0 pcg LAB HEMETOLOGY METHOD 10/22/2024 10:30 AM EDT [facility] MCHC 31.8(L) 32.0 - 37.0 g/dL LAB HEMETOLOGY METHOD 10/22/2024 10:30 AM EDT [facility] RDW 13.8 11.0 - 15.0 % LAB HEMETOLOGY METHOD 10/22/2024 10:30 AM EDT [facility] Platelets 328 130 - 400 K/mcL LAB HEMETOLOGY METHOD 10/22/2024 10:30 AM EDT [facility] MPV 10.9 7.0 - 11.0 FL LAB HEMETOLOGY METHOD 10/22/2024 10:30 AM EDT [facility] NRBC 0.0 <1.0 % LAB HEMETOLOGY METHOD 10/22/2024 10:30 AM EDT [facility] NRBC Absolute 0.00 <0.10 K/mcL LAB HEMETOLOGY METHOD 10/22/2024 10:30 AM [facility] Blood Venous blood specimen / Unknown Venipuncture / Unknown 10/22/2024 6:16 AM EDT 10/22/2024 9:34 AM EDT us Amrita Polanco MD LAB BLOOD ORDERABLES Final Resu lt [facility] [address] [place] [address], documented in this encounter Visit Diagnoses Diagnosis Essential (primary) hypertension Unspecified essential hypertension Unspecified atrial fibrillation (CMS/HCC V24, CMS/HCC V28) Type 2 diabetes mellitus without complications (CMS/HCC V24, CMS/HCC V28) documented in this encounter Care Teams Undercar Specialist Relationship Specialty Start Date End Date Valeri Lerner DO [address] [place], [place] PCP - General 11/15/14 documented as of this encounter
--- OUTSIDE RECORDS SUMMARY | 2025-04-25 11:14 | XMS_ITS | Encounter Summary ---
Author Organization [employer] Address [address] [facility] 7t [place] [address] Care Team Providers Care Intermediate Accountant Name Role Phone Valeri Lerner DO Primary Care Provider Batsheva Gomez PharmD Unavailable [phone] Reason for Visit * Reason Onset Date Comments FYI 10/08/2024 Encounter Details Date Type Department Care Team (Late st Contact Info) Description 10/08/2024 Telephone [facility] MEDICINE [address] [place], [place] [phone] Valeri Lerner DO [address] [place], [place] [phone] Social History Tobacco Use Types Packs/Day Years [...] the past 12 months, has t he [employer], gas, oil or water [employer] threatened to shut off services in your [...] 10/08/2024 1:17 PM EDT Tc from [facility] (VN) informing pt iron level 3.0. [facility] will like a callback TODAY from nurse [phone] documented in this encounter Plan of Treatment Upcoming Encounters Date Type Department Care Team (Late st Contact Info) Description 05/16/2025 1:30 PM EDT Office Visit [facility] OPTOMETRY [address] [place] [address] Tod, Ai, OD [address] [place] [address] documented as of this encounter Goals Goal [...] Hemoglobin A1c < 8 Result Component 7.6( 5 1:53 PM EDT) No Batsheva Gomez, PharmD documented as of this encounter Visit Diagnoses Not on filedocumented in this encounter Additional Health Concerns Assessment Noted Time PHQ-9 Depression Total Score: 0 07/15/20 24 11:32 AM EST documented as of this encounter Care Teams Intermediate Accountant Relationship Specialty Start Date End Date Valeri Lerner DO [address] [place] [address] PCP - General Family Medicine 07/13/12 Batsheva Gomez, CecilyD [address] [place] [address] Pharmacist Internal Medicine 03/07/24 12/19/24 [employer] 12/08/23 documented as of this encounter
--- OUTSIDE RECORDS SUMMARY | 2025-04-25 11:14 | XMS_ITS | Clinical Summary ---
Author Organization [address] Address [address] [place] [address] Phone Care Team Providers Care After School Tutor Name Role Phone Valeri Lerner DO Primary Care Provider [phone] Social History Tobacco Use Types Packs/Day Years Used Date Smoking Tobacco: Never Assessed Comments Unknown Sex and Gender Information Value Date Recorded Sex Assigned at Not on file Legal Sex Female 9:10 PM EST Gender Identity Not on file Sexual Orientation Not on file Plan of Treatment Health Maintenance Due Date Last Done Comments Diabetes: Annual Foot Exam 1945 Diabetes: Annual Retina Eye Exam 1945 Falls Risk Assessment 08/25/2023 Osteoporosis Screening (Bone Density Screening) 08/25/2023 Social Influencers of Health Screening 08/25/2023 Depression Screening 07/31/2024 COVID-19 Vaccine ( season) 2025 04/26/2024, 12/26/2023, 08/23/2023, Additional history exists Influenza Vaccine (#1) 2025 , 08/23/2023, 08/08/2022, Additional history exists Diabetes: Blood Sugar Control Test (HGBA1C) 05/01/2025 10/30/2024, 07/15/2024 Hypertension/CHF/CAD Annual BMP Blood Test 10/22/2025 10/22/2024, 10/10/2024 Cholesterol Screening (Lipid Panel) 08/31/2028 08/31/2023 DTaP,Tdap,and Td Vaccines (4 - Td or Tdap) 12/25/2033 12/26/2023, 08/06/2013, 07/23/2003 Pneumococcal Vaccine: 50+ Years Completed 12/26/2023, 07/02/2015, 11/04/2013 RSV Immunization Adult Patients Completed 03/07/2024 Zoster Vaccines Completed 03/07/2024, 02/2021, [...] on patient's age to complete this topic MMR Vaccines Aged Out No longer eligi ble based on patient's age to complete this topic Meningococcal ACWY Vaccine Aged Out N o longer eligible based on patient's age to complete this topic Meningococcal B Vaccine Aged Out No l onger eligible based on patient's age to complete this topic RSV Immunization Patients Under 20 months Aged Out No longer eligible based on patient's age to complete this topic Varicella Vaccines Aged Out No longer eligible based on patient's age to complete this topic Procedures Procedure Name Priority Date/Time Associated Diagnosis Comments HEMOGLOBIN A1C Routine 10/30/2024 7:51 AM EDT Type 2 diabetes mellitus without complications BASIC METABOLIC PANEL Routine 10/22/2024 6:16 AM EDT Essential (primary) hypertension Unspecified atrial fibrillation (CMS/HCC) Type 2 diabetes mellitus without complications from Last 3 Months or Most Recently Relevant to Health Maintenance Results * (ABNORMAL) Hemoglobin A1c (10/30/2024 7:51 AM EDT) Hemoglobin A1C 7.4(H) <6.5 % LAB CHEMISTRY METHOD 10/30/2024 1:50 PM EDT [facility] Mean Bld Glu Estim. 166 mg/dL LAB CHEMISTRY METHOD 10/30/2024 1:50 PM EDT [facility] Blood Venous blood specimen / Unknown Venipuncture / Unknown 10/30/2024 7:51 AM EDT 10/30/2024 10:03 AM EDT us Kymberly Horne MD LAB BLOOD ORDERABLES Fin al Result [facility] [address] [place] [address], * (ABNORMAL) Basic metabolic panel (10/22/2024 6:16 AM EDT) Sodium 142 133 - 145 mmol/L LAB CHEMISTRY METHOD 10/22/2024 11:07 AM [facility] Potassium 3.6 3.5 - 5.5 mmol/L LAB CHEMISTRY METHOD 10/22/2024 11:07 AM [facility] Chloride 105 96 - 110 mmol/L LAB CHEMISTRY METHOD 10/22/2024 11:07 AM [facility] CO2 30 21 - 32 mmol/L LAB CHEMISTRY METHOD 10/22/2024 11:07 AM [facility] Anion Gap 7 3 - 11 LAB CHEMISTRY METHOD 10/22/2024 11:07 AM [facility] Glucose 85 70 - 100 mg/dL LAB CHEMISTRY METHOD 10/22/2024 11:07 AM [facility] BUN 22 5 - 25 mg/dL LAB CHEMISTRY METHOD 10/22/2024 11:07 AM [facility] Creatinine 1.22(H) 0.50 - 1.10 mg/dL LAB CHEMISTRY METHOD 10/22/2024 11:07 AM [facility] eGFR 43(L) >=60 mL/min/1. 73m2 LAB CHEMISTRY METHOD 10/22/2024 11:07 AM [facility] Comment:Calculation based on the Chronic Kidney Disease Epidemiology Collaboration (CKD-EPI) equation refit without adjustment for race. BUN/Creatinine Ratio 18.0 LAB CHEMISTRY METHOD 10/22/2024 11:07 AM [facility] Calcium 9.9 8.5 - 10.5 mg/dL LAB CHEMISTRY METHOD 10/22/2024 11:07 AM EDT [facility] Blood Venous blood specimen / Unknown Venipuncture / Unknown 10/22/2024 6:16 AM EDT 10/22/2024 9:34 AM EDT us Amrita Polanco MD LAB BLOOD ORDERABLES Final Resu lt [facility] ([facility]) [facility] [address] [place] [address], [place] [phone] from Last 3 Months or Most Recently Relevant to Health Maintenance Insurance [facility] MED[employer] - [place] Care Teams After School Tutor Relationship Specialty Start Date End Date Valeri Lerner DO [address] [place], [place] PCP - General 11/15/14
--- OUTSIDE RECORDS SUMMARY | 2025-04-25 11:14 | XMS_ITS | Encounter Summary ---
Author Organization [facility] Address [id number] [place] [address] Care Team Providers Care Conference Service Coordinator Name Role Phone Valeri Lerner DO Primary Care Provider [phone] Encounter Details Date Type Department Care Team (Late st Contact Info) Description 11/04/2024 Lab Requisition [facility] Lab [address] [facility] [place] [address] Amrita Polanco MD [address] [place] [id number] Unspecified atrial fibrillation (CMS/HCC V24, CMS/HCC V28) Social History Tobacco [...] Diagnosis Comments PROTHROMBIN TIME WITH INR Routine 11/04/2024 8:39 AM EDT Unspecified atrial fibrillation (CMS/HCC) documented in this encounter Results * (ABNORMAL) Prothrombin time with INR (11/04/2024 8:39 AM EDT) Protime 16.9(H) 10.6 - 13.9 sec LAB COAGULATION METHOD 11/04/2024 11:56 AM [facility] INR 1.4 LAB COAGULATION METHOD 11/04/2024 11:56 AM [facility] Blood Venous blood specimen / Unknown Venipuncture / Unknown 11/04/2024 8:39 AM EDT 11/04/2024 11:00 AM EDT us Amrita Polanco MD LAB BLOOD ORDERABLES Final Resu lt [facility] ([facility]) [facility] [address] [place] [address], documented in this encounter Visit Diagnoses Diagnosis Unspecified atrial fibrillation (CMS/HCC V24, CMS/HCC V28) documented in this encounter Care Teams Conference Service Coordinator Relationship Specialty Start Date End Date Valeri Lerner DO [address] [place] [address] PCP - General 11/15/14 documented as of this encounter
--- OUTSIDE RECORDS SUMMARY | 2025-04-25 11:14 | XMS_ITS | Encounter Summary ---
Author Organization [employer] Address [address] [facility] [address] [place] [address] Care Team Providers Care Cripple Cutter Name Role Phone Valeri Lerner DO Primary Care Provider [phone] Batsheva Gomez PharmD Unavailable Reason for Visit * Reason Onset Date Comments Nurse Triage 03/25/2024 Encounter Details Date Type Department Care Team (Late st Contact Info) Description 03/25/2024 Telephone [facility] MEDICINE [address] [place], [place] [phone] Valeri Lerner DO [address] [place], [place] [phone] Nurse Triage Social History Tobacco Use Types [...] the past 12 months, has t he [employer], gas, oil or water Deal[employer] threatened to shut off services in your [...] outcome Contact pt visiting nurse Artemio at [phone] documented in this encounter Plan of Treatment Upcoming Encounters Date Type Department Care Team (Late st Contact Info) Description 05/16/2025 1:30 PM EDT Office Visit [facility] OPTOMETRY [address] [place] [address] TodAi, OD [address] [place] [address] documented as of this encounter Goals Goal [...] documented as of this encounter Care Teams Cripple Cutter Relationship Specialty Start Date End Date Valeri Lerner DO [address] [place] [address] PCP - General Family Medicine 07/13/12 Patricia, Batsheva, PharmD [address] [place] [address] Pharmacist Internal Medicine 03/07/24 12/19/24 [facility] 12/08/23 documented as of this encounter
--- OUTSIDE RECORDS SUMMARY | 2025-04-25 11:14 | XMS_ITS | Encounter Summary ---
Author Organization [employer] Address [address] [place] [address] [address] [place] [address] Care Team Providers Care Box Toe Buffer Name Role Phone Valeri Lerner DO Primary Care Provider [phone] Batsheva Gomez PharmD Unavailable [phone] Encounter Details Date Type Department Care Team (Latest Contact Info) Description 11/11/2020 Abstract [facility] CONVERSIONS Dental, Provider, DDS Social History [...] Care Team ( st Contact Info) Description 05/16/2025 1:30 PM EDT Office Visit [facility] OPTOMETRY [address] [place], [place] [phone] Ai Baron, OD [address] [place] [address] documented as of this encounter Visit Diagnoses Not on filedocumented in this encounter Care Teams Box Toe Buffer Relationship Specialty Start Date End Date Valeri Lerner DO [address] [place] [address] PCP - General Family Medicine 07/13/12 Batsheva Gomez PharmD [address] [place] [address] Pharmacist Internal Medicine 03/07/24 12/19/24 [facility] 12/08/23 documented as of this encounter
== END ==
LOC: HO.CARD 10:02
PROVIDERS: Visit Provider Nurse Practitioner Family
DX: R93.1 Abnormal findings on diagnostic imaging of heart and coronary circulation (principal); R77.8 Other specified abnormalities of plasma proteins; I50.9 Heart failure, unspecified
CPT/HCPCS: 78452; 93017; A9500; J0280; J2785

== ENCOUNTER → 2025-04-25 10:05 | Outpatient (BNV) | payer OTHER, MEDICAID, SELFPAY | DX: I49.3 Ventricular premature depolarization (principal) | CPT/HCPCS: 78452; 93016; 93018 ==

== ENCOUNTER 2025-05-23 13:36 | Inpatient (IN) | payer OTHER, MEDICAID, SELFPAY ==
--- OUTSIDE RECORDS SUMMARY | 2024-11-22 09:30 | XMS_ITS ---
Author Organization [facility] Address [address] [place] [address] Care Team Providers Care Line Controller Name Role Phone Valeri Lerner Primary Care Provider UnavailKeenan Dalton Unavailable [phone] Archuleta Encounters Encounter Location Date Provider Diagnosis [address] [address] 11/22/2024 Keenan Dyer Plan Of Treatment Next Appt Details Provider Name:Keenan Dyer , 08/15/2025 12:45:00 PM, [address] [place] [address], [phone], Progress Notes * Anna WOODCoraB:[birth year] (89 yo F)Acc No.[id number]:11/22/2024 Progress Note Patient: Nikky SINGH Provider: Gabbi Dyer DPM :1935 A ge:89 Y S ex:Female Date:11/22/2024 Address:[address] [place] [phone] Pcp:Valeri Lerner Subjective: * Chief Complaints: * [...] 0 11/22/2024 Generated for Tray López on: 04:28 PM EDT
--- OUTSIDE RECORDS SUMMARY | 2024-12-13 08:45 | XMS_ITS ---
Author Organization [facility] Address [address] [place] [address] Care Team Providers Care Play Therapist Name Role Phone Valeri Lerner Primary Care Provider UnavailKeenan Dalton Unavailable [phone] Archuleta Encounters Encounter Location Date Provider Diagnosis [address] [address] 12/13/2024 Keenan Dyer Plan Of Treatment Next Appt Details Provider Name:Keenan Dyer , 08/15/2025 12:45:00 PM, [address] [place] [address], [phone], Progress Notes * Anna WOODCoraB:[birth year] (89 yo F)Acc No.[id number]:12/13/2024 Progress Note Patient: Nikky SINGH Provider: Gabbi Dyer DPM :1935 A ge:89 Y S ex:Female Date:12/13/2024 Address:[address] [place] [phone] Pcp:Valeri Lerner Subjective: * Chief Complaints: * [...] 0 12/13/2024 Generated for Tray López on: 04:28 PM EDT
--- NOTE | ~2025-05-23 | XR_ITS ---
EXAMINATION: XR CHEST CLINICAL INFORMATION: SOB COMPARISON: X-ray 10/16/2024 TECHNIQUE: Frontal view of the chest was obtained. FINDINGS: Heart is enlarged. Vascular prominence, with interstitial prominence. Bibasilar hazy opacities. Findings suggestive of mild pulmonary edema. Possible trace bilateral pleural effusions. No pneumothorax. No acute osseous findings. No acute findings in the upper abdomen. XR/XR chest 1V IMPRESSION: Findings suggestive of mild pulmonary edema in the appropriate clinical circumstance. Possible trace bilateral pleural effusions. Electronically signed by: Lam Zuluaga MD 05/23/2025 02:35 PM EDT
--- NOTE | ~2025-05-23 | XR_ITS ---
CLINICAL HISTORY: sob 1 view chest x-ray. Comparison: 10/10/2024 Findings: Slight increase markings overlying right lung base could suggest minimal or developing consolidation. No other consolidation or pleural effusions. Cardiac and mediastinal contours appear stable. Bones unremarkable. Impression: 1. Equivocal minimal right base consolidation. No other acute pulmonary disease. This document has been electronically signed by: Ramesh Ching MD on 05/24/2025 14:16:25
[2025-05-23 13:52] VITALS: BP 140/86; PULSE 60; O2SAT 94
[2025-05-23 14:07] VITALS: BP 135/79; PULSE 80; RESP 20; TEMP 36.4; O2SAT 97; BMI 43.9
--- NOTE | 2025-05-23 14:09 | ECG_ITS ---
Test Reason : SOB Blood Pressure : */* mmHG Vent. Rate : 59 BPM Atrial Rate : 236 BPM P-R Int : * ms QRS Dur : 90 ms QT Int : 398 ms P-R-T Axes : 79 50 58 degrees QTcB Int : 394 ms Atrial flutter with variable A-V block Nonspecific T wave abnormality Abnormal ECG When compared with ECG of 13-Feb-2025 21:02, Atrial flutter has replaced Atrial fibrillation Referred By: Generic ED Physician Electronically Signed By: CATHI PEOPLES MD
[2025-05-23 15:40] VITALS: BP 152/57
[2025-05-23] MEDS: Furosemide 40 MG/4 ML VIAL IVPUSH (15:40)
[2025-05-23 15:44] LABS: MANUAL DIFF FLAG NO
[2025-05-23 15:47] LABS: Hematocrit 35.8 % (37.0-47.0); Hemoglobin 11.2 g/dl (12.0-16.0); Imm Gran Abs Auto 0.02 X10*3/uL (0.00-0.03); Imm Gran Pct Auto 0.3 % (0.0-0.4); Lymphocytes Absolute Auto 1.7 X10*3/uL (1.2-4.9); Mean Corpuscular HGB Conc 31.3 g/dl (31.0-35.0); Mean Corpuscular Hemoglobin 30.1 pg (27.0-33.0); Mean Corpuscular Volume 96.2 fL (80.0-98.0); NRBC Abs Auto 0.000 X10*3/uL (0.0-0.012); NRBC Pct Auto 0.0 /100WBC (0.0-0.2); Platelet Count 154 X10*3/uL (160-400); Red Blood Count 3.72 X10*6/uL (4.20-5.50); White Blood Count 8.0 X10*3/uL (4.8-10.8)
--- NOTE | 2025-05-23 16:01 | ED.SOB ---
HPI - SOB/Dyspnea General Chief Complaint: Dyspnea Stated Complaint: TINGLING IN ALL EXTREMITIES Time Seen by Provider: 05/23/25 14:32 Source: patient, EMS, old records reviewed and parts interpreter Mode of arrival: EMS Limitations: other (poor historian) History of Present Illness ED Provider: ADILENE HPI Narrative: 89 yo female with PMH of CHF 40-45%, pneumonia, anxiety, PAF on coumadin, DVT s/p IVC filter, CVA, CAD, HLD, T2DM, HLD, hypoxia with PRN home O2, UTI she comes in with c/o 3 days of dyspnea, cough with some sputum, increased leg swelling and increased diff breathing while laying flat. She has pain her shoulders which is chronic but denies chest pain. She has no fevers, no n/v/d. She does not it hurts when she urinates. She reports compliance with all medications. Her legs make it hard to walk. She did have abnormal stress test with possible apical ischemia but she has no chest pain. MD elicited complaint: shortness of breath Pertinent past history: congestive heart failure Onset (ago): day(s) (3) Context: other Timing: progressively worsening Severity: moderate Exacerbating factors: lying flat and exertion Relieving factors: oxygen, rest and upright position Known history of: congestive heart failure Associated symptoms: cough Treatment prior to arrival: oxygen Related Data Home Medications ?Medication ?Instructions ?Recorded ?Confirmed atorvastatin 20 mg tablet 20 mg PO BEDTIME 05/21/20 05/23/25 blood sugar diagnostic #10 ea 05/21/20 03/22/24 cholecalciferol (vitamin D3) 50 50 mcg PO DAILY 05/21/20 05/23/25 mcg (2,000 unit) tablet fluticasone propionate 50 2 spray intranasal DAILY 05/21/20 05/23/25 mcg/actuation nasal spray,suspension lancets #100 ea 05/21/20 03/22/24 levothyroxine 100 mcg tablet 100 mcg PO DAILY@0600 05/21/20 05/23/25 omeprazole 20 mg capsule,delayed 20 mg PO BID@0630,1630 05/21/20 05/23/25 release pen needle, diabetic 32 gauge x #50 ea 05/21/20 03/22/24 sertraline 50 mg tablet 50 mg PO DAILY 05/21/20 05/23/25 metoprolol tartrate 25 mg tablet 12.5 mg PO BID 12/17/20 05/23/25 nebulizers (Sidestream misc) #1 ea 05/14/21 03/22/24 docusate sodium 100 mg capsule 100 mg PO BID 04/19/23 05/23/25 acetaminophen 650 mg 650 mg PO Q8H PRN Pain/Fever 02/09/24 05/23/25 tablet,extended release ciclopirox 0.77 % topical cream 1 appl topical BID PRN fungal 09/16/24 05/23/25 infection insulin glargine 100 unit/mL (3 26 unit subcut DAILY 09/16/24 05/24/25 mL) subcutaneous pen (Lantus Solostar U-100 Insulin) semaglutide 0.25 mg or 0.5 mg (2 0.5 mg subcut DURON 09/16/24 05/23/25 mg/3 mL) subcutaneous pen injector ([email or web address]) solifenacin 10 mg tablet 10 mg PO DAILY 09/16/24 05/23/25 warfarin 4 mg tablet 4 mg PO DAILY@1800 10/11/24 05/24/25 fluticasone 500 mcg-salmeterol 50 1 ea inhalation BID 02/13/25 05/23/25 mcg/dose blistr powdr for inhalation (Jaye Caldwell) metformin 500 mg tablet,extended 500 mg PO BIDWM 02/13/25 05/23/25 release 24 hr multivitamin-iron sulfate 15 1 tab PO DAILY 02/13/25 05/23/25 mg-folic acid 400 mcg tablet (Tab-A-Judith Multivitamin w-iron) albuterol sulfate 90 mcg/actuation 2 puff inhalation Q6H PRN wheezing 05/23/25 05/23/25 aerosol inhaler cetirizine 10 mg tablet 5 mg PO DAILY 05/23/25 05/23/25 diclofenac sodium 1 % topical gel 4 g topical QID PRN Pain 05/23/25 05/23/25 furosemide 20 mg tablet 60 mg PO DAILY 05/23/25 05/23/25 magnesium oxide 400 mg (241.3 mg 400 mg PO DAILY 05/23/25 05/23/25 magnesium) tablet Previous Rx's ?Medication ?Instructions ?Recorded polyethylene glycol 3350 17 gram 17 g PO DAILY #7 ea 10/21/24 oral powder packet Allergies Allergy/AdvReac Type Severity Reaction Status Date / Time shellfish derived Allergy Severe Hives Verified 05/23/25 14:08 aspirin (Aspirin) Allergy Mild Gastrointestinal Verified 05/23/25 14:08 Upset ibuprofen Allergy Unknown Unknown Verified 05/23/25 14:08 oxycodone (From PERCOCET) Allergy Unknown PALPITATION Verified 05/23/25 14:08 S Robitussin Cold Cough+ Chest Allergy Intermediate hives Uncoded 05/23/25 14:08 SEAFOOD Allergy Intermediate hives Uncoded 05/23/25 14:08 Review of Systems Review of Systems: Constitutional : No Fever, No Chills ENT/Mouth : No sore throat, No Rhinorrhea, No Swallowing Difficulty Eyes: No Eye Pain, No Swelling, No Redness Cardiovascular : No Chest Pain, positive SOB, pos Orthopnea, positive Edema Respiratory : pos Cough, pos Sputum, No Wheezing, positive dyspnea Gastrointestinal : No Nausea, No Vomiting, No Diarrhea, No abdominal Pain, No Hematochezia, No Melena Genitourinary : No Dysuria, No Urinary Frequency, No Hematuria Musculoskeletal : No joint pain, No Myalgias Skin : No Skin Lesions, No rash Neuro : No Weakness, No Numbness, No Dizziness, No Headache All other systems reviewed and are negative PMFSH Past Medical History Medical History Prolonged QT interval Prolonged QT interval Heart block Hypertension CHF (congestive heart failure) Pneumonia Multiple falls Acute on chronic respiratory failure with hypoxemia Weakness Urgency incontinence Menopause Well woman exam Current use of anticoagulant therapy Stenosis of carotid artery Diabetes type 2, controlled Sepsis Gastroenteritis Hypoxia Pneumonia Urinary incontinence Obesity due to excess calories Type 2 diabetes mellitus with diabetic polyneuropathy Senile cataract of left eye Essential hypertension Hyperlipemia Paroxysmal A-fib Anxiety disorder Hypothyroidism Coronary artery disease History of cerebrovascular accident Osteoarthritis Osteopenia Deep vein thrombosis Hearing loss Surgical History H/O colonoscopy H/O breast surgery S/P IVC filter History of bilateral tubal ligation Family History Family History Father Heart disease CVD (cardiovascular disease) Mother Diabetes Social History Social History Household Members: Family and None Housing: House Do you presently have visiting nurse or other home services: Yes Alcohol intake: never Comment: Luda WATSON Patient Tobacco Use Status: Former Tobacco user Tobacco use type: Cigarette Advance Directives Date on File: 07/01/22 service: No Current occupational status: unemployed Sexual orientation: Straight/Heterosexual Gender identity: Female Physical Exam Vital Signs: Vital Signs: Last Vital Signs Temp 97.8 F 05/26/25 02:58 Pulse 58 05/26/25 02:58 Resp 18 05/26/25 02:58 BP 145/67 H 05/26/25 02:58 Pulse Ox 95 05/26/25 02:58 O2 Del Method Nasal Cannula 05/26/25 02:58 O2 Flow Rate 2 05/26/25 02:58 Oxygen Flow Rate 2 05/23/25 14:07 BMI result Body Mass Index 43.9 Appearance: Alert. Oriented X3. No acute distress. Eyes: Pupils equal, round and reactive to light. ENT: Pharynx normal. Neck: Normal inspection. Neck supple. CVS: irregular heart rate and rhythm. Pulses normal. Respiratory: No respiratory distress. Breath sounds rales in both bases Abdomen: Soft and nontender. Obese Skin: Skin warm and dry. Normal skin color. Normal skin turgor. Extremities: 3+ pitting symmetric lower extremity edema. No calf ttp no cellulitis Neuro: Oriented X 3. No motor deficit. No sensory deficit. Course Course Course Narrative: signed out to Dr. Pramod Chavarria, DO 05/23/25 [id number] Medications Administered Generic Name Dose Route Start Last Admin Trade Name Freq PRN Reason Stop Dose Admin Acetaminophen 650 mg 05/23/25 17:48 05/24/25 22:44 Acetaminophen 325 Mg Tablet PO 650 mg Q6H PRN Administration Pain, Mild 1-3,fever,headache Atorvastatin Calcium 20 mg 05/23/25 21:00 05/25/25 21:26 Atorvastatin Calcium 20 Mg Tablet PO 20 mg BEDTIME GER Administration Docusate Sodium 100 mg 05/24/25 09:00 05/25/25 21:26 Docusate Sodium 100 Mg Capsule PO 100 mg BID GER Administration Empagliflozin 10 mg 05/24/25 11:15 05/25/25 08:13 Empagliflozin 10 Mg Tablet PO 10 mg DAILY GER Administration Fluticasone Propionate 2 spray 05/24/25 09:00 05/25/25 08:11 Fluticasone Propionate Nasal 16 Gm [place] NOSTRIL-B 2 spray DAILY GER Administration Fluticasone/Vilanterol 1 puff 05/24/25 09:00 05/25/25 08:13 Fluticasone/Vilanterol 200/25 Blst.W.Dev INHALE 1 puff RDAILY [facility] Administration Furosemide 40 mg 05/24/25 18:00 05/25/25 16:31 Furosemide 40 Mg/4 Ml Vial IVPUSH 40 mg BID@0900,1800 [facility] Administration Protocol Insulin Glargine 25 unit 05/24/25 09:00 05/25/25 08:15 Insulin Glargine,Hum.Rec.Anlog 100 Unit/Ml 10 Ml Vial SUBCUT 25 unit DAILY GER Administration Insulin Human Lispro 0 unit 05/23/25 21:00 05/25/25 21:25 Insulin Lispro 100 Unit/Ml 3 Ml Vial SUBCUT 4 unit QIDACHS [facility] Administration Protocol Levothyroxine Sodium 100 mcg 05/24/25 06:00 05/26/25 06:13 Levothyroxine Sodium 100 Mcg Tablet PO 100 mcg DAILY@0600 [facility] Administration Loratadine 5 mg 05/24/25 09:00 05/25/25 08:11 Loratadine 10 Mg Tablet PO 5 mg DAILY GER Administration Magnesium Hydroxide 30 ml 05/23/25 17:48 05/25/25 16:31 Milk Of Magnesia 30 Ml Oral.Susp PO 30 ml DAILY PRN Administration Constipation Magnesium Oxide 400 mg 05/24/25 09:00 05/25/25 08:12 Magnesium Oxide 400 Mg Tablet PO 400 mg DAILY GER Administration Metoprolol Tartrate 12.5 mg 05/23/25 21:00 05/24/25 11:24 Metoprolol Tartrate 12.5 Mg Halftab PO Not Given On Hold: 05/24/25 11:16 BID [facility] Protocol Multivitamins/Vitamin C 1 tab 05/24/25 09:00 05/25/25 08:15 Multivitamin Tablet PO 1 tab DAILY GER Administration Omeprazole 20 mg 05/24/25 16:30 05/26/25 06:13 Omeprazole 20 Mg Capsule.Dr PO 20 mg BID@0630,1630 [facility] Administration Polyethylene Glycol 17 gm 05/24/25 09:00 05/25/25 08:14 Polyethylene Glycol 3350 17 Gm Powd.Pack PO 17 gm DAILY GER Administration Sertraline HCl 50 mg 05/24/25 09:00 05/25/25 08:13 Sertraline Hcl 50 Mg Tablet PO 50 mg DAILY GER Administration Sodium Chloride 3 ml 05/24/25 00:00 05/26/25 00:31 0.9 % Sodium Chloride Flush 3 Ml Syringe IVFLUSH 3 ml QSHIFT GER Administration Tolterodine Tartrate 4 mg 05/24/25 09:00 05/25/25 08:13 Tolterodine Tartrate La 4 Mg Cap.Er.24h PO 4 mg DAILY GER Administration Vitamin D 50 mcg 05/24/25 09:00 05/25/25 08:13 Cholecalciferol (Vitamin D3) 25 Mcg Tablet PO 50 mcg DAILY GER Administration Warfarin Sodium 4 mg 05/24/25 18:00 05/25/25 17:56 Warfarin Sodium 4 Mg Tablet PO 4 mg DAILY@1800 GER Administration Discontinued Medications Generic Name Dose Route Start Last Admin Trade Name Jesusq PRN Reason Stop Dose Admin Furosemide 40 mg 05/23/25 15:08 05/23/25 15:40 Furosemide 40 Mg/4 Ml Vial IVPUSH 05/23/25 15:09 40 mg STAT STA Administration Protocol Furosemide 40 mg 05/24/25 09:00 05/24/25 11:25 Furosemide 40 Mg/4 Ml Vial IVPUSH 40 mg DAILY GER Administration Protocol Medical Decision Making Medical Decision Making MDM Narrative: 89 yo female with PMH of CHF 40-45%, pneumonia, anxiety, PAF on coumadin, DVT s/p IVC filter, CVA, CAD, HLD, T2DM, HLD, hypoxia with PRN home O2, UTI now here with c/o edema, orthopnea, and on exam concern for volume overload - at this time EKG, labs, IV lasix, CXR - viral panel. Her symptoms seems more CHF vs infection. She did have normal stress 04/25/25 but she has no chest pain. If trop not elevated would admit for IV diuresis. Differential Diagnosis Differential Diagnoses: The differential diagnosis associated with the presentation includes CHF, viral syndrome, NSTEMI, doubt VTE given INR therapeutic at 3.1 Admission/Observation Consideration of admission/observation: Escalation of care including admission/observation considered would admit for diuresis given complaints if trop flat does not need emergent cath or transfer Consult Healthcare Provider Management of the patient was discussed with: Hospitalist Lab Data MDM Lab Attestation statement: I reviewed the patient's lab results. 05/23/25 15:32 05/25/25 08:39 Labs: Lab Results 05/23/25 05/23/25 Range/Units 15:32 16:46 WBC 8.0 (4.8-10.8) X10*3/uL RBC 3.72 L (4.20-5.50) X10*6/uL Hgb 11.2 L (12.0-16.0) g/dl Hct 35.8 L (37.0-47.0) % MCV 96.2 (80.0-98.0) fL MCH 30.1 (27.0-33.0) pg MCHC 31.3 (31.0-35.0) g/dl RDW 14.4 (11.0-16.0) % Plt Count 154 L D (160-400) X10*3/uL MPV 10.7 (9.4-12.3) fL Immature Gran % (Auto) 0.3 (0.0-0.4) % Neut % (Auto) 68.0 (45-73) % Lymph % (Auto) 21.8 (20-40) % Power % (Auto) 6.0 (2-11) % Eos % (Auto) 3.5 (0-4) % Baso % (Auto) 0.4 (0-2) % Lymph # (Auto) 1.7 (1.2-4.9) X10*3/uL Power # (Auto) 0.5 (0.1-1.2) X10*3/uL Eos # (Auto) 0.3 (0.0-0.4) X10*3/uL Baso # (Auto) 0.0 (0.0-0.2) X10*3/uL Abs Immat Gran (auto) 0.02 (0.00-0.03) X10*3/uL Absolute Neuts (auto) 5.4 (2.0-8.3) x10*3/uL Absolute Nucleated RBC 0.000 (0.0-0.012) X10*3/uL Nucleated RBC % (auto) 0.0 (0.0-0.2) /100WBC PT 35.2 H D (10.9-12.4) SEC INR 3.1 H (0.9-1.1) Sodium 144 (135-145) mmol/L Potassium 3.9 (3.3-5.1) mmol/L Chloride 105 (96-108) mmol/L Carbon Dioxide 33 H (22-29) mmol/L Anion Gap 10 L (12-20) BUN 17 H (9-16) mg/dL Creatinine 1.01 (0.5-1.4) mg/dL Estim Creat Clear Calc 40.5 Estimated GFR 52 Random Glucose 183 H (60-115) mg/dL Calcium 9.3 (8.4-10.2) mg/dL Magnesium 1.6 (1.6-2.6) mg/dL Total Bilirubin 0.5 (0.0-1.0) mg/dL Direct Bilirubin 0.3 (0.0-0.5) mg/dL AST 27 (5-31) U/L ALT 26 (0-31) U/L Alkaline Phosphatase 119 H (39-117) U/L Troponin I High Sens 43.8 H (<3.5-17.0) ng/L C-Reactive Protein 0.81 H (< or = 0.50) mg/dL NT-Pro-B Natriuret Pep 1923.6 H (<300) pg/mL Total Protein 7.4 (6.5-8.0) g/dL Albumin 3.9 (3.5-5.0) g/dL Lipase 7 L (8-78) U/L Urine Color Yellow Urine Appearance Clear Urine pH 6.0 (5.0-9.0) Ur Specific [place] 1.010 (1.005-1.025) Urine Protein Negative (Neg-Trace) mg/dL Urine Glucose (UA) Negative (Negative) mg/dL Urine Ketones Negative (Negative) mg/dL Urine Blood Negative (Negative) Urine Nitrite Negative (Negative) Ur Leukocyte Esterase Negative (Negative) COVID-19 (MUSHTAQ) Negative (Negative) COVID-19 Clin Com See Note Influenza Type A (DANIELLE) Negative (Negative) Influenza Type B (DANIELLE) Negative (Negative) Influenza A & B Note See Note Independent Interpretation I performed an independent interpretation of an: EKG and Plain X-Ray (pulm edema, trace effusions) Interpretation: Rate: 59 Rhythm: aflutter with variable conduction [place]: normal Normal P waves. Normal [place]. Normal QRS complex. ST T wave : nonspecific ST T wave changes qTC: 394 prior studies: hx of same The study has been interpreted contemporaneously by me. . Radiology Impression Discussion of test interpretation with radiology: I have reviewed the radiologist's reading. Independent Historian Clinical information obtained from an independent historian. History obtained from or confirmed by: EMS External Record Review External record reviewed: Inpatient record, Outpatient record, Prior outpatient labs and Prior outpatient radiology Discharge Plan Discharge Clinical Impression: Acute on chronic clinical systolic heart failure Patient Disposition: Admitted As Inpatient Interventions: Admission Worksheet (ED) Last Done: 05/23/25 19:56 Discharge Date/Time: 05/23/25 20:00
[2025-05-23 16:02] LABS: Alanine Aminotransferase 26 U/L (0-31); Albumin Level 3.9 g/dL (3.5-5.0); Alkaline Phosphatase 119 U/L (39-117); Anion Gap 10 (12-20); Aspartate Amino Transferase 27 U/L (5-31); Blood Urea Nitrogen 17 mg/dL (9-16); Calcium 9.3 mg/dL (8.4-10.2); Carbon Dioxide 33 mmol/L (22-29); Chloride 105 mmol/L (96-108); Creatinine Clr Calc Pharmacy 40.5; Estimated Glomerular Filt Rate 52; Lipase 7 U/L (8-78); Magnesium 1.6 mg/dL (1.6-2.6); Potassium 3.9 mmol/L (3.3-5.1); Sodium 144 mmol/L (135-145); Total Protein 7.4 g/dL (6.5-8.0)
[2025-05-23 16:03] LABS: INTERNATIONAL NORM RATIO 3.1 (0.9-1.1); Prothrombin Time 35.2 SEC (10.9-12.4)
[2025-05-23 16:08] LABS: NT Pro B Type Natriuretic Pept 1923.6 pg/mL (<300)
--- OUTSIDE RECORDS SUMMARY | 2025-05-23 16:28 | XMS_ITS ---
Author Name Yelena Barillas NP Address [address] [place] [address] Phone [phone] [facility] Care Team Providers Care Boat Camp Operator Name Role Phone Eran Yelena Unavailable [phone] CATALINA BAGLEY Unavailable [phone] Samantha Baker Unavailable [phone] [facility] Unavailable [phone] Reason for Referral Not Available Allergies, adverse [...] 2024-03-29 No Data Available Comfort EZ Pen Basehor 32 gauge x 5/32 USE DIRECTED WITH [...] Date Synopsis Atherosclerosis of coronary artery of [place] heart Active 2022-08-30 N/A cont lasix stati [...] feeling wellReport consistent blood pressures readings >140/90/06/24: HEALTHCARE EDUCATOR reports that in the last couple of days the patient's toes have been pink and sensitive to touch, denies uncontrolled pain to touch. She has an appointment with the latex foam worker on monday for further evaluation.01/28/25: Patient denies BLE edema or dyspnea, denies any acute concerns. COPD (chronic obstructive pulmonary disease) Active 2022-08-15 N/A advjhoana hayes casonefu w pulmonaryon Room Air -Stable-continue to f/u with PCP/specialists-continue rx'd medications-report changes in chronic condition Incontinence; Mixed stress and urge urinary incontinence Active 2024-11-22 N/A Incontinence sup plies ordered on 11/22-continue f/u with urology [facility] Unsteady gait Active 2024-12-10 N/A HEALTHCARE EDUCATOR reports that the patient has unsteady gait [...] N/A -Patient has gurwinder ly [facility]NA and HEALTHCARE EDUCATOR services. She lives alone in a third floor apartment with close family support from daughter. Daughter requesting increase in HEALTHCARE EDUCATOR hoursPCA- Sully -Advised to reach out to [facility] cc [place] currently approximate 30hours per weekCognition [...] NoDo you have a Durable Power of Mechanic Senior for Healthcare, or Healthcare Proxy Or Guardianship? 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 [...] (do not use for phone, instead use 70942-74) [facility] [place] Paroxysmal atrial fibrillationChronic obstructive pulmonary disease, unspecifiedAthscl heart disease of [place] coronary artery w/o ang pctrsType 2 diabetes [...] (do not use for phone, instead use 11735-53) [facility] [place] New patient,40-59min ; chronic exacerbation, 2 stable chronic or 1 acute illness add add modifier 95 for video (do not use for phone, instead use 79784-68) [facility] [place] New patient,40-59min ; chronic exacerbation, 2 stable chronic or 1 acute illness add add modifier 95 for video (do not use for phone, instead use 76778-55) [facility] [place] New patient,40-59min ; chronic exacerbation, 2 stable chronic or 1 acute illness add add modifier 95 for video (do not use for phone, instead use 89386-89) [facility] [place] New patient,40-59min ; chronic exacerbation, 2 stable chronic or 1 acute illness add add modifier 95 for video (do not use for phone, instead use 47369-50) [facility] [place] New patient,40-59min ; chronic exacerbation, 2 stable chronic or 1 acute illness add add modifier 95 for video (do not use for phone, instead use 27272-71) [facility] [place] New patient,40-59min ; chronic exacerbation, 2 stable chronic or 1 acute illness add add modifier 95 for video (do not use for phone, instead use 97325-00) [facility] [place] Estab. patient 20-29min; 1 stable chronic or 2 minor; add add modifier 95 for video, modifier 93 for phone [facility] [place] 10/03/2022 Pneumonia, unspecified organismSepsis, unspecified organism Estab. patient 20-29min; 1 stable chronic or 2 minor; add add modifier 95 for video, modifier 93 for phone [facility] [place] 10/03/2022 Estab. patient 20-29min; 1 stable chronic or 2 minor; add add modifier 95 for video, modifier 93 for phone [facility] [place] 10/03/2022 Estab. patient 20-29min; 1 stable chronic or 2 minor; add add modifier 95 for video, modifier 93 for phone [facility] [place] 10/03/2022 Estab. patient 20-29min; 1 stable chronic or 2 minor; add add modifier 95 for video, modifier 93 for phone [facility] [place] 10/03/2022 Estab. patient 20-29min; 1 stable chronic or 2 minor; add add modifier 95 for video, modifier 93 for phone [facility] [place] 10[place]03/2022 Estab. patient 30-39min; chronic exacerbation, 2 stable chronic or 1 acute illness add add modifier 95 for video, (do not use for phone, instead use 15828-26) [facility] [place] 05[place]2024 Paroxysmal atrial fibrillati onOther thrombophiliaHypertensive heart disease with heart failureMorbid (severe) obesity due to excess caloriesSecondary hyperaldosteronismChronic obstructive pulmonary disease, unspecifiedHeart failure, unspecifiedMajor depressive disorder, single episode, in partial remissionType 2 diabetes mellitus with other specified complicationHypothyroidism, unspecifiedHyperlipidemia, unspecifiedAthscl heart disease of [place] coronary artery w/o ang pctrsAnemia in other chronic diseases classified elsewhereGeneralized anxiety disorderBody mass index (BMI) 40.0-44.9, adultPrsnl hx of TIA (TIA), and cereb infrc w/o resid deficitsOther problems related to medical facilities and other health care Estab. patient 30-39min; chronic exacerbation, 2 stable chronic or 1 acute illness add add modifier 95 for video, (do not use for phone, instead use 64998-36) [facility] [place] Estab. patient 30-39min; chronic exacerbation, 2 stable chronic or 1 acute illness add add modifier 95 for video, (do not use for phone, instead use 21798-02) [facility] [place] Estab. patient 30-39min; chronic exacerbation, 2 stable chronic or 1 acute illness add add modifier 95 for video, (do not use for phone, instead use 62438-90) [facility] [place] Estab. patient 30-39min; chronic exacerbation, 2 stable chronic or 1 acute illness add add modifier 95 for video, (do not use for phone, instead use 60280-76) [facility] [place] Estab. patient 30-39min; chronic exacerbation, 2 stable chronic or 1 acute illness add add modifier 95 for video, (do not use for phone, instead use 57025-07) [facility] [place] Estab. patient 30-39min; chronic exacerbation, 2 stable chronic or 1 acute illness add add modifier 95 for video, (do not use for phone, instead use 33679-26) [facility] [place] Estab. patient 30-39min; chronic exacerbation, 2 stable chronic or 1 acute illness add add modifier 95 for video, (do not use for phone, instead use 47915-82) [facility] [place] Estab. patient 30-39min; chronic exacerbation, 2 stable chronic or 1 acute illness add add modifier 95 for video, (do not use for phone, instead use 29269-19) [facility] [place] Estab. patient 30-39min; chronic exacerbation, 2 stable chronic or 1 acute illness add add modifier 95 for video, (do not use for phone, instead use 95558-69) [facility] [place] Estab. patient 30-39min; chronic exacerbation, 2 stable chronic or 1 acute illness add add modifier 95 for video, (do not use for phone, instead use 55036-98) [facility] [place] 05[place] Estab. patient 10-29min; 1 minor problem; add add modifier 95 for video, modifier 93 for phone [facility] [place] 09[place]/2024 Heart failure, unspecifiedSe condary hyperaldosteronismOther problems related to medical facilities and other health care Estab. patient 10-29min; 1 minor problem; add add modifier 95 for video, modifier 93 for phone [facility] [place]2024 Chronic obstructive pulmonar y disease, unspecifiedHypertensive heart disease with heart failureHeart failure, unspecified Estab. patient 10-29min; 1 minor problem; add add modifier 95 for video, modifier 93 for phone [facility] [place]2024 Acute respiratory failure wi th hypoxiaChronic obstructive pulmonary disease, unspecifiedPneumonia, unspecified organismUnspecified urinary incontinenceOther problems related to medical facilities and other health care Estab. patient 10-29min; 1 minor problem; add add modifier 95 for video, modifier 93 for phone [facility] [place] Estab. patient 10-29min; 1 minor problem; add add modifier 95 for video, modifier 93 for phone [facility] [place] 11/07/20[place] Estab. patient 10-29min; 1 minor problem; add add modifier 95 for video, modifier 93 for phone [facility] [place] Estab. patient 10-29min; 1 minor problem; add add modifier 95 for video, modifier 93 for phone [facility] [place]2024 Acute respiratory failure wi th hypoxiaPneumonia, unspecified organismUnsteadiness on feetOther problems related to medical facilities and other health care Estab. patient 10-29min; 1 minor problem; add add modifier 95 for video, modifier 93 for phone [facility] [place] 01[place]2025 Heart failure, unspecifiedSe condary hyperaldosteronismChronic obstructive pulmonary disease, unspecified RN, CN or CP time with patient by phone; use with 1111F, BP, A1c or other CPTII codes [facility] [place] 02/18/2025 Encounter for other specifie d aftercare RN, CN or CP time with patient by phone; use with 1111F, BP, A1c or other CPTII codes [facility] [place] 02/18/2025 Estab. patient 10-29min; 1 minor problem; add add modifier 95 for video, modifier 93 for phone [facility] [place] 02/27/2025 Urinary tract infection, sit e not specifiedOther problems related to medical facilities and other health care Estab. patient 10-29min; 1 minor problem; add add modifier 95 for video, modifier 93 for phone [facility] [place] 02/27/2025 Estab. patient 10-29min; 1 minor problem; add add modifier 95 for video, modifier 93 for phone [facility] [place] 02/27/2025 Estab. patient 10-29min; 1 minor problem; add add modifier 95 for video, modifier 93 for phone [facility] [place] 02/27/2025 Estab. patient 10-29min; 1 minor problem; add add modifier 95 for video, modifier 93 for phone [facility] [place] 04/02/2025 Polyosteoarthritis, unspecifiedParoxysmal atrial fibrillationOther thrombophiliaChronic obstructive pulmonary disease, unspecifiedAthscl heart disease of [place] coronary artery w/o ang pctrsType 2 diabetes [...] for phone [facility] [place] Estab. patient 10-29min; 1 minor problem; add add modifier 95 for video, modifier 93 for phone [facility] [place] Estab. patient 10-29min; 1 minor problem; add add modifier 95 for video, modifier 93 for phone [facility] [place]/02/[place] Estab. patient 10-29min; 1 minor problem; add add modifier 95 for video, modifier 93 for phone [facility] [place]/02/20[place] Estab. patient 10-29min; 1 minor problem; add add modifier 95 for video, modifier 93 for phone [facility] [place]/02/20[place] Estab. patient 10-29min; 1 minor problem; add add modifier 95 for video, modifier 93 for phone [facility] [place]/02/20[place] Estab. patient 10-29min; 1 minor problem; add add modifier 95 for video, modifier 93 for phone [facility] [place]/02/20[place] Estab. patient 10-29min; 1 minor problem; add add modifier 95 for video, modifier 93 for phone [facility] [place]/02/20[place] Estab. patient 10-29min; 1 minor problem; add add modifier 95 for video, modifier 93 for phone [facility] [place] 04/02/2025 Vital Signs Date of Collection [...] tive Time Current Smoking Status Former smoker 2025-05-01 4 Sex Female Gender identity Woman History of Procedures Procedures Service Procedure code Service date Servicing provider Phone# New patient,40-59min; chronic exacerbation, 2 stable chronic or 1 acute illness add add modifier 95 for video (do not use for phone, instead use 15169-00) [id number] 2022-08-25 No Data Available No Data Availa [...] 95 for video, modifier 93 for phone [id number] 2022-10-03 No Data Available No Data Availa [...] (do not use for phone, instead use 73005-55) [id number] 2024-05-28 No Data Available No Data Availa [...] 95 for video, modifier 93 for phone [id number] 2024-09-10 No Data Available No Data Availa ble Estab. patient 10-29min; 1 minor problem; add add modifier 95 for video, modifier 93 for phone [id number] 2024-10-10 No Data Available No Data Availa ble Estab. patient 10-29min; 1 minor problem; add add modifier 95 for video, modifier 93 for phone 2024-11-07 No Data Available No Data Availa ble Medications prescribed in hospital were reviewed and reconciled against what they were taking prior to admission during today's visit. (1111F) [id number] No Data Available No Data Availa ble Advance care planning discussed and documented advance care plan or surrogate decision-maker was documented in the medical record. (1123F) [id number] No Data Available No Data Availa ble Medication List Documented (1159F) [id number] 2024-11-07 No Data Available No Data Keily ilable Estab. patient 10-29min; 1 minor problem; add add modifier 95 for video, modifier 93 for phone [id number] 2024-12-10 No Data Available No Data Availa ble Estab. patient 10-29min; 1 minor problem; add add modifier 95 for video, modifier 93 for phone [id number] 2025-01-28 No Data Available No Data Availa ble RN, CN or CP time with patient by phone; use with 1111F, BP, A1c or other CPTII codes 39883 2025-02-18 No Data Available No Data Avai lable Medications prescribed in hospital were reviewed and reconciled against what they were taking prior to admission during today's visit. (1111F) 2025-02-18 No Data Available No Data Availa ble Estab. patient 10-29min; 1 minor problem; add add modifier 95 for video, modifier 93 for phone 2025-02-27 No Data Available No Data Availa ble Medications prescribed in hospital were reviewed and reconciled against what they were taking prior to admission during today's visit. (1111F) [id number] No Data Available No Data Availa ble Advance care planning discussed and documented advance care plan or surrogate decision-maker was documented in the medical record. (1123F) [id number] No Data Available No Data Availa ble Medication List Documented (1159F) [id number] 2025-02-27 No Data Available No Data Keily ilable Estab. patient 10-29min; 1 minor problem; add add modifier 95 for video, modifier 93 for phone [id number] 2025-04-02 No Data Available No Data Availa [...] obstructive pulmonary disease)Atherosclerosis of coronary artery of [place] heartType 2 diabetes mellitus with hyperlipidemiaMajor depressive disorder in partial remissionHypothyroidismMorbid obesity due to excess caloriesHistory of CVA (cerebrovascular accident)Anemia in chronic illness 2022-10-03 07:05:20 Patient Education to avoid future hospitalization: Call [facility] if symptoms of illness develop.Sepsis due to pneumonia 2024-05-28 07:45:46 paroxysmal atrial fi brillation and Hypercoagulability due to atrial fibrillationCOPD (chronic obstructive pulmonary disease)Atherosclerosis of coronary artery of [place] heartType 2 diabetes mellitus with hyperlipidemiaMajor depressive [...] obstructive pulmonary disease)Atherosclerosis of coronary artery of [place] heartType 2 diabetes mellitus with hyperlipidemia; Type [...] lantus, metformin, trulicty a1c 7.7, [facility] sim[facility] and mtr lipids fu w endocrinecont on sertralinept denies symptoms [facility]cont [facility] fcont clonazepam for anxiety/insomnialevothyroxinefu w endomtr tshBMI [...] may arise 20/02.HEART FAILURE CONTINGENCY PLANLast updated: 05/29/2024[facility] to call for the following symptoms: BP [...] feeling wellReport consistent blood pressures readings >140/902/06/24: HEALTHCARE EDUCATOR reports that in the last couple of days the patient's toes have been pink and sensitive to touch, denies uncontrolled pain to touch. She has an appointment with the latex foam worker on monday for further evaluation. 2024-10-10 06:15:41 Estab. patient 10-29 min; 1 minor problem; add add modifier 95 for video, modifier 93 for phoneContinue to see PCP. [facility] or disease education needs that may arise 20/02.advair, fluticasonefu w pulmonary3: Patient denies dyspnea or any other concerns.Encourage low sodium diet. Encouraged daily blood pressure checks and tracking. Instructed patient to notify CB or PCP if blood pressure >140/90 or <90/50.HEART FAILURE CONTINGENCY PLANLast updated: 05/29/2024[facility] to call for the following symptoms: BP [...] the patient is home with family and HEALTHCARE EDUCATOR/[facility] care. The patient is currently has a soft diet and increase weakness post hospitalization. Medication reconciled with hospital records, unable to confirm with VNAHEART FAILURE CONTINGENCY PLANLast updated: 05/29/2024[facility] to call for the following symptoms: BP <100/60 / BP >180/100 / Edema/ Exertional dyspnea/ Weight gain or lossPlanned intervention: Increase furosemide (Lasix) to 60 mg for 3 days/ Wrap legs with Mohan wrap/ Put on compression stockings/ Eat lower sodium foods/ Take medication every single dayCOPD CONTINGENCY PLANLast updated: 11/22/2024[facility] to call for the following symptoms: Exertional [...] or disease education needs that may arise 20/02.HEALTHCARE EDUCATOR reports that the patient has unsteady gait with walking, requires assistance during ambulation. Hx of falls.11/07/24: Hospitalization 10/21-10/21 for acute hypoxic respiratory failure secondary to pneumonia. Patient presented to cough and shortness of breath. The patient was discharged to a STR. In addition, the patient had ER visit 11/05 for aspiration pneumonia. At this time, the patient is home with family and HEALTHCARE EDUCATOR/[facility]NA care. The patient is currently has a soft diet and increase weakness post hospitalization. Medication reconciled with hospital records, unable to confirm with VNA12/10/24: Cg reports that the patient does not have any acute symptoms, she is 'stable'. She is aware that the patient will continue to steadily decline.HEART FAILURE CONTINGENCY PLANLast updated: 05/29/2024[facility] to call for the following symptoms: BP <100/60 / BP >180/100 / Edema/ Exertional dyspnea/ Weight gain or lossPlanned intervention: Increase furosemide (Lasix) to 60 mg for 3 days/ Wrap legs with Mohan wrap/ Put on compression stockings/ Eat lower sodium foods/ Take medication every single dayCOPD CONTINGENCY PLANLast updated: 11/22/2024[facility] to call for the following symptoms: Exertional dyspnea/ Increased cough / WheezingPlanned intervention: Levofloxacin 500mg daily x 5 daysFALL CONTINGENCY PLANMember to call for the following symptoms: Fall / Pre-syncope/ Refusing to use cane / WeaknessPlanned intervention: Order x-ray at [facility] or local hospital Assess for change [...] feeling wellReport consistent blood pressures readings >140/902/06/24: HEALTHCARE EDUCATOR reports that in the last couple of days the patient's toes have been pink and sensitive to touch, denies uncontrolled pain to touch. She has an appointment with the latex foam worker on monday for further evaluation.01/28/25: Patient denies BLE edema or dyspnea, denies any acute concerns.advair, fluticasonefu w pulmonary01/28/25: Patient denies dyspnea or any other concerns.HEART FAILURE CONTINGENCY PLANLast updated: 05/29/2024[facility] to call for the following symptoms: BP <100/60 / BP >180/100 / Edema/ Exertional dyspnea/ Weight gain or lossPlanned intervention: Increase furosemide (Lasix) to 60 mg for 3 days/ Wrap legs with Mohan wrap/ Put on compression stockings/ Eat lower sodium foods/ Take medication every single dayCOPD CONTINGENCY PLANLast updated: 11/22/2024[facility] to call for the following symptoms: Exertional dyspnea/ Increased cough / WheezingPlanned intervention: Levofloxacin 500mg daily x 5 daysFALL CONTINGENCY PLANMember to call for the following symptoms: Fall / Pre-syncope/ Refusing to use cane / WeaknessPlanned intervention: Order x-ray at [facility] or local hospital Assess for change [...] for phoneContinue to see PCP. Follow-up with [facility] as needed for any acute or disease education needs that may arise.02/15-02/17 hospitalization due to a fall. Dx with a urinary tract infection and treated with an antibiotic. Cg denies any current symptoms or concerns.UTI CONTINGENCY PLANLast updated: 02/27/2025[facility] to call for the following symptoms: Dysuria/ Fever/ Urinary frequencyPlanned intervention: Encourage increased fluid intake/ Treat temperature with Tylenol 1gm PO/ Nitrofurantoin 100mg BID x5dCOPD CONTINGENCY PLANLast updated: 11/22/2024Member to call for the following symptoms: Exertional dyspnea/ Increased cough / WheezingPlanned intervention: Levofloxacin 500mg daily x 5 daysFALL CONTINGENCY PLANMember to call for the following symptoms: Fall / Pre-syncope/ Refusing to use cane / WeaknessPlanned intervention: Order x-ray at [facility] or local hospital Assess for change [...] with PCP/specialists-continue rx'd medications-report changes in chronic ijqhwvsfhasvyjmmbe-Ujhzfy-ofypvrux to f/u with PCP/specialists-continue rx'd medications-report changes [...] feeling wellReport consistent blood pressures readings >140/902/06/24: HEALTHCARE EDUCATOR reports that in the last couple of days the patient's toes have been pink and sensitive to touch, denies uncontrolled pain to touch. She has an appointment with the latex foam worker on monday for further evaluation.01/28/25: Patient denies [...] supplies ordered on 11/22-[facility] the [facility] has unsteady gait with walking, requires assistance during ambulation. Hx of falls.-Patient has daily VNA and HEALTHCARE EDUCATOR services. She lives alone in a third floor apartment with close family support from daughter. Daughter requesting increase in HEALTHCARE EDUCATOR hoursPCAJigna Virk -Advised to reach out to [facility] cc [place] currently approximate 30hours per weekCognition [...] NoDo you have a Durable Power of Mechanic Senior for Healthcare, or Healthcare Proxy Or Guardianship? [...] discussion: (Who was present, : member and XCH-Racoxw-yrynsuzv to f/u with PCP/specialists-continue rx'd medications-report changes [...] NoDo you have a Durable Power of Mechanic Senior for Healthcare, or Healthcare Proxy Or Guardianship? [...] discussion: (Who was present, : member and HEALTHCARE EDUCATOR 2025-04-02 Functional Assessmen tCognition Status: Oriented to [...] RSV Vaccines 2025-04-02 out reach to [place] Sheriff cc
--- OUTSIDE RECORDS SUMMARY | 2025-05-23 16:29 | XMS_ITS | Patient Health Record ---
Author Organization [facility] Address [address] [place] [address] Care Team Providers Care Paraeducator Name Role Phone Tyler Garsia Unavailable [phone] Reason For Referral No Information Plan Of Treatment No Information
--- OUTSIDE RECORDS SUMMARY | 2025-05-23 16:29 | XMS_ITS | Clinical Summary ---
Author Organization [facility] Address [address] [place] [address] Phone Care Team Providers Care Fast Food Supervisor Name Role Phone Unavailable Primary Care [...] It is not the complete legal health record.[facility]
--- OUTSIDE RECORDS SUMMARY | 2025-05-23 16:29 | XMS_ITS | Encounter Summary ---
Author Organization [facility] Address [address] [place] [address] Care Team Providers Care Procurement Professional Name Role Phone Valeri Lerner DO Primary Care Provider +1- [phone] Encounter Details Date Type Department Care Team (Late st Contact Info) Description 10/30/2024 Lab Requisition [facility] - Main Lab [address] [place] [address] Kymberly Horne MD [address] [id number] Type 2 diabetes mellitus without complications (CMS/HCC [...] LAB CHEMISTRY METHOD 10/30/2024 1:50 PM EDT [facility] Mean Bld Glu Estim. 166 mg/dL LAB CHEMISTRY METHOD 10/30/2024 1:50 PM EDT [facility] Blood Venous blood specimen / Unknown Venipuncture / Unknown 10/30/2024 7:51 AM EDT 10/30/2024 10:03 AM EDT us Kymberly Horne MD LAB BLOOD ORDERABLES Fin al Result [facility] ([facility]) [facility] [address] [place] [address], documented in this encounter Visit Diagnoses Diagnosis Type 2 diabetes mellitus without complications (CMS/HCC V24, CMS/HCC V28) documented in this encounter Care Teams Procurement Professional Relationship Specialty Start Date End Date Valeri Lerner DO [address] [place] [address] PCP - General 11/15/14 documented as of this encounter
--- OUTSIDE RECORDS SUMMARY | 2025-05-23 16:29 | XMS_ITS | Encounter Summary ---
Author Organization [facility] Address [address] [place] [address] Care Team Providers Care Production Crew Supervisor Name Role Phone Valeri Lerner DO Primary Care Provider +1- [phone] Encounter Details Date Type Department Care Team (Late st Contact Info) Description 11/04/2024 Lab Requisition [facility] - Main Lab [address] [facility] [address] [place] [address] Amrita Polanco MD [address] [place] [address] Unspecified atrial fibrillation (CMS/HCC V24, CMS/HCC V28) [...] LAB BLOOD ORDERABLES Final Resu lt [facility] ([facility]) [facility] [address] [place] [address], documented in this encounter Visit Diagnoses Diagnosis Unspecified atrial fibrillation (CMS/HCC V24, CMS/HCC V28) documented in this encounter Care Teams Production Crew Supervisor Relationship Specialty Start Date End Date Valeri Lerner DO [address] [place] [address] PCP - General 11/15/14 documented as of this encounter
--- OUTSIDE RECORDS SUMMARY | 2025-05-23 16:29 | XMS_ITS | Encounter Summary ---
Author Organization [facility] Address [address] [place] [address] Care Team Providers Care Electrical Engineering Technologist Name Role Phone Valeri Lerner DO Primary Care Provider +1- [phone] Encounter Details Date Type Department Care Team (Late st Contact Info) Description 11/01/2024 Lab Requisition [facility] - Main Lab [address] [facility] [place] [address] Amrita Polanco MD [address] [place] [address] Heart failure, unspecified (CMS/HCC V24, CMS/HCC V28) [...] sec LAB COAGULATION METHOD 11/01/2024 9:58 AM [facility] INR 1.2 LAB COAGULATION METHOD 11/01/2024 9:58 AM [facility] Blood Venous blood specimen / Unknown Venipuncture / Unknown 11/01/2024 6:48 AM EDT 11/01/2024 9:35 AM EDT us Amrita Polanco MD LAB BLOOD ORDERABLES Final Resu lt [facility] ([facility]) [facility] [address] [place] [address], documented in this encounter Visit Diagnoses Diagnosis Heart failure, unspecified (CMS/HCC V24, CMS/HCC V28) Heart failure, unspecified documented in this encounter Care Teams Electrical Engineering Technologist Relationship Specialty Start Date End Date Valeri Lerner DO [address] [place] [address] PCP - General 11/15/14 documented as of this encounter
--- OUTSIDE RECORDS SUMMARY | 2025-05-23 16:29 | XMS_ITS | Clinical Summary ---
Author Organization [address] Address [address] [place] [address] Phone Care Team Providers Care Insurance Salesperson Name Role Phone Valeri Lerner DO Primary Care Provider +1- [phone] Social History Tobacco Use Types Packs/Day Years [...] MD LAB BLOOD ORDERABLES Fin al Result [facility] [address] [place] [address], * (ABNORMAL) Basic metabolic panel (10/22/2024 6:16 AM EDT) Sodium 142 133 - 145 mmol/L LAB CHEMISTRY METHOD 10/22/2024 11:07 AM [facility] Potassium 3.6 3.5 - 5.5 mmol/L LAB CHEMISTRY METHOD 10/22/2024 11:07 AM [facility] Chloride 105 96 - 110 mmol/L LAB CHEMISTRY METHOD 10/22/2024 11:07 AM [facility] CO2 30 21 - 32 mmol/L LAB CHEMISTRY METHOD 10/22/2024 11:07 AM [facility] Anion Gap 7 3 - 11 LAB CHEMISTRY METHOD 10/22/2024 11:07 AM [facility] Glucose 85 70 - 100 mg/dL LAB CHEMISTRY METHOD 10/22/2024 11:07 AM [facility] BUN 22 5 - 25 mg/dL LAB CHEMISTRY METHOD 10/22/2024 11:07 AM [facility] Creatinine 1.22(H) 0.50 - 1.10 mg/dL LAB CHEMISTRY METHOD 10/22/2024 11:07 AM [facility] LAB eGFR 43(L) >=60 mL/min/1. 73m2 LAB CHEMISTRY METHOD 10/22/2024 11:07 AM [facility] LAB Comment:Calculation based on the Chronic Kidney Disease Epidemiology Collaboration (CKD-EPI) equation refit without adjustment for race. BUN/Creatinine Ratio 18.0 LAB CHEMISTRY METHOD 10/22/2024 11:07 AM [facility] Calcium 9.9 8.5 - 10.5 mg/dL LAB CHEMISTRY METHOD 10/22/2024 11:07 AM EDT [facility] ([facility] Blood Venous blood specimen / Unknown Venipuncture / Unknown 10/22/2024 6:16 AM EDT 10/22/2024 9:34 AM EDT us Amrita Polanco MD LAB BLOOD ORDERABLES Final Resu lt [facility] ([facility]) [facility] LAB [address] [place] [address], [place] [phone] from Last 3 Months or Most Recently Relevant to Health Maintenance Insurance [facility] MEDICAID - [place] Care Teams Insurance Salesperson Relationship Specialty Start Date End Date Valeri Lerner DO [address] [place], [place] PCP - General 11/15/14
--- OUTSIDE RECORDS SUMMARY | 2025-05-23 16:29 | XMS_ITS | Encounter Summary ---
Author Organization [facility] Address [address] [place] [address] Care Team Providers Care Tech Brazer Tester Name Role Phone Valeri Lerner DO Primary Care Provider +1- [phone] Encounter Details Date Type Department Care Team (Latest Contact Info) Description 10/22/2024 Lab Requisition [facility] - Main Lab 299 [facility] [place] [address] Amrita Polanco MD [address] [place] [phone] Essential (primary) hypertension; Unspecified atrial fibrillation (CMS/HCC [...] 10/22/2024 11:07 AM [facility] Blood Venous blood specimen / Unknown Venipuncture / Unknown 10/22/2024 6:16 AM EDT 10/22/2024 9:34 AM EDT us Amrita Polanco MD LAB BLOOD ORDERABLES Final Resu lt [facility] [address] [place] [address], [place] [phone] * (ABNORMAL) Prothrombin time with INR (10/22/2024 6:16 AM EDT) Pathologist [facility] Protime 36.0(H) 10.6 - 13.9 sec LAB COAGULATION METHOD 10/22/2024 10:31 AM EDT [facility] INR 2.9 LAB COAGULATION METHOD 10/22/2024 10:31 AM EDT [facility] Blood Venous blood specimen / Unknown Venipuncture / Unknown 10/22/2024 6:16 AM EDT 10/22/2024 9:34 AM EDT us Amrita Polanco MD LAB BLOOD ORDERABLES Final Resu lt Performing Organization Address [facility]/ZIP Co de Phone Number [facility] [address] [place] [address], [place] [phone] * (ABNORMAL) Complete blood count (10/22/2024 6:16 AM EDT) [facility] WBC 9.2 4.8 - 10.8 K/[facility] LAB HEMETOLOGY METHOD 10/22/2024 10:30 AM EDT [facility] RBC 3.70(L) 3.80 - 4.80 M/[facility] LAB HEMETOLOGY METHOD 10/22/2024 10:30 AM EDT [facility] Hemoglobin 11.4(L) 11.5 - 16.0 g/dL LAB HEMETOLOGY METHOD 10/22/2024 10:30 AM EDT [facility] Hematocrit 35.8 35.0 - 47.0 % LAB HEMETOLOGY METHOD 10/22/2024 10:30 AM EDT [facility] MCV 96.8 79.0 - 98.0 FL LAB HEMETOLOGY METHOD 10/22/2024 10:30 AM EDT [facility] MCH 30.8 27.0 - 32.0 pcg LAB HEMETOLOGY METHOD 10/22/2024 10:30 AM EDT [facility] MCHC 31.8(L) 32.0 - 37.0 g/dL LAB HEMETOLOGY METHOD 10/22/2024 10:30 AM EDT [facility] RDW 13.8 11.0 - 15.0 % LAB HEMETOLOGY METHOD 10/22/2024 10:30 AM EDT [facility] Platelets 328 130 - 400 K/mcL LAB HEMETOLOGY METHOD 10/22/2024 10:30 AM EDT [facility] MPV 10.9 7.0 - 11.0 FL LAB HEMETOLOGY METHOD 10/22/2024 10:30 AM EDT [facility] NRBC 0.0 <1.0 % LAB HEMETOLOGY METHOD 10/22/2024 10:30 AM EDT [facility] NRBC Absolute 0.00 <0.10 K/mcL LAB HEMETOLOGY METHOD 10/22/2024 10:30 AM [facility] Blood Venous blood specimen / Unknown Venipuncture / Unknown 10/22/2024 6:16 AM EDT 10/22/2024 9:34 AM EDT us Amrita Polanco MD LAB BLOOD ORDERABLES Final Resu lt [facility] [address] [place] [address], documented in this encounter Visit Diagnoses Diagnosis Essential (primary) hypertension Unspecified essential hypertension Unspecified atrial fibrillation (CMS/HCC V24, CMS/HCC V28) Type 2 diabetes mellitus without complications (CMS/HCC V24, CMS/HCC V28) documented in this encounter Care Teams Tech Brazer Tester Relationship Specialty Start Date End Date Valeri Lerner DO [address] [place], [place] PCP - General 11/15/14 documented as of this encounter
--- OUTSIDE RECORDS SUMMARY | 2025-05-23 16:29 | XMS_ITS | Patient Health Record ---
Author Organization [facility] Address [address] [place] [address] Care Team Providers Care Pre Algebra Teacher Name Role Phone Valeri Lerner Primary Care Provider Keenan Lowery Unavailable [phone] Allergies Allergen (clinical drug ingredient) Drug/Non Drug [...] End Date Status Fluticasone Propionate Active Ipratropium [place] Active Insulin Lispro Activ e Arestin Not-Taking [...] Problem Acquired hammer toe of right foot (5390395718789 105) Other hammer toe(s) (acquired), right foot (M20.41) Active confirmed Problem Type 2 diabetes mellitus with peripheral angiopathy (620500531) Type 2 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) Active confirmed Q7(A), Q8(2B), Q9(1B,2C) Problem Acquired hammer toe of left foot (4430022643868 103) Other hammer toe(s) (acquired), left foot (M20.42) Active confirmed Vital Signs Blood pressure diastolic 65 mm Hg 04/18/2025 Height 5 ft 5 in in 04/18/2025 Blood pressure systolic 140 mm Hg 04/18/2025 Weight 230 lbs 04/18/2025 BMI 38.27 kg/m2 04/18/2025 Procedures Procedure Date Ordered Date Performed Result Body Sit e 51847-YUXMHVF NAIL, 6 OR MORE 08/16/2024 N/A 34747-LKPE SKIN LESIONS, OVER 4 08/16/2024 N/A 16603-SDCFEHR NAIL, 6 OR MORE 01/10/2025 N/A 48272-KEUG SKIN LESIONS, OVER 4 01/10/2025 N/A 24628-CZIIAVL NAIL, 6 OR MORE 04/18/2025 N/A 63040-LDNI SKIN LESIONS, OVER 4 04/18/2025 N/A Encounters Encounter Location Date Provider Diagnosis [address] [address] 08/16/2024 Keenan Dyer Type 2 diabetes mellitus with diabetic peripheral angiopathy without gangrene E11.51 ; Tinea unguium B35.1 ; Pain in right toe(s) M79.674 ; Pain in left toe(s) M79.675 ; Other hammer toe(s) (acquired), left foot M20.42 ; Other hammer toe(s) (acquired), right foot M20.41 and Tinea pedis of both feet B35.[address] [address] 01/10/2025 Keenan Dyer Type 2 diabetes mellitus with diabetic peripheral angiopathy without gangrene E11.51 ; Other hammer toe(s) (acquired), right foot M20.41 ; Tinea unguium B35.1 ; Pain in right toe(s) M79.674 ; Pain in left toe(s) M79.675 ; Other hammer toe(s) (acquired), left foot M20.42 and Tinea pedis of both feet B35.[address] [address] 04/18/2025 Keenan Dyer Type 2 diabetes mellitus with diabetic peripheral angiopathy without gangrene E11.51 ; Tinea unguium B35.1 ; Pain in right toe(s) M79.674 ; Pain in left toe(s) M79.675 and Tinea pedis of both feet B35.[address] [facility] [address] 01/10/2025 Keenan Dyer [facility] [address] [address] 01/10/2025 Keenan Dyer Assessments Encounter Date Diagnosis [...] Treatment Pending Test Test Name Order Date 04922-APOEZPE NAIL, 6 OR MORE 10/27/2016 60931-QEVWJQH NAIL, 6 OR MORE 05/09/2017 17097-PYRAYEM NAIL, 6 OR MORE 08/21/2017 17686-LTWNRBF NAIL, 6 OR MORE 01/26/2017 14718-YKCFDQF NAIL, 6 OR MORE 01/29/2018 49530-KYSGDLK NAIL, 6 OR MORE 07/09/2018 91760-SOFIZYM NAIL, 6 OR MORE 11/22/2018 85014-RLEJLYZ NAIL, 6 OR MORE 08/16/2024 01915-LSZEYOB NAIL, 6 OR MORE 01/10/2025 67980-KLHJPRA NAIL, 6 OR MORE 04/18/2025 07307-PVAZOLT NAIL, 1-5 12/21/2015 52853-YSGHQVT NAIL, -05/30/2016 75601-KIUTVWM NAIL, -02/18/2015 69034-NUOUDHM NAIL, -05/27/2015 83041-ACBCJVZ NAIL, -09/23/2015 16171-Ydvoikhl Plate 02/18/2015 79334-Anxjobzn Plate 05/30/2016 56878-Kdpffxuv Plate 12/21/2015 32887-Zghdgrmm Plate 09/23/2015 35423-Swwjernb Plate 10/27/2016 58220-Ppgqpzmv Plate 01/07/2019 46235-BJOC SKIN LESIONS, OVER 4 07/09/20 18 76116-KLMP SKIN LESIONS, OVER 4 05/09/20 17 43809-UFLX SKIN LESIONS, OVER 4 04/18/20 25 69373-ESOD SKIN LESIONS, OVER 4 11/23/19 19 56301-CMSV SKIN LESIONS, OVER 4 01/11/20 25 34823-BSBK SKIN LESIONS, OVER 4 08/16/19 25 35149-EHGT SKIN LESIONS, OVER 4 10/28/19 17 55581-GYOR SKIN LESIONS, OVER 4 01/27/20 17 44042-EVOZ SKIN LESIONS, OVER 4 08/21/19 18 49781-JMGM SKIN LESIONS, OVER 4 01/30/20 18 49060-NAEL SKIN LESIONS, 2 TO 4 02/19/20 15 47104-FHBU SKIN LESIONS, 2 TO 4 05/27/20 15 09672-CIOQ SKIN LESIONS, 2 TO 4 09/23/19 16 10996-EFMB SKIN LESIONS, 2 TO 4 12/21/19 16 40248-DPIA SKIN LESIONS, 2 TO 4 05/30/20 16 96312-Fnoq. Subungual Hematoma 9 B1066-TORREYVN DYSTROPHIC NAILS ANY # A2394-HFZIRJIR DYSTROPHIC NAILS ANY # O7754-HVAWOKPT DYSTROPHIC NAILS ANY # O5046-QLGWMQQT DYSTROPHIC NAILS ANY # Next Appt Details Provider Name:Keenan Janel Dyer , 08/15/2025 12:45:00 PM, [address] [place] [address], [phone], Insurance Providers Payer Name Payer Address Payer Phone Subscriber Number Group Number Insured Name Patient Relationship to Insured Coverage Start Date Coverage End Date [facility] Medicare-[id number] [address] [place] [address] [id number] Nikky Morgan Self - patient is the insured Medical (General) History Medical History History ICD Code Anxiety Arthritis asthma Back,Hip,and Knee pain Broken bones Diabetic Stroke Thyroid disorder blood clots Gout Heart disease Surgical History Surgery Date(Month/Year) cataract surgery left eye 11/09/2018 Hospitalization History Reason Date(Month/Year) [facility] a [facility] 2018
[2025-05-23 16:30] LABS: Troponin-I High Sensitivity 43.8 ng/L (<3.5-17.0)
[2025-05-23 16:57] LABS: Appearance Urine Clear; Glucose Urine UA Negative (Negative); PH 6.0 (5.0-9.0); Specific Gravity - Urine 1.010 (1.005-1.025)
[2025-05-23 17:12] LABS: COVID-19 Test Negative (Negative); IDNOW Serial# 08D9AD1C; IDNOW Serial# 6674DD1D; Influenza B2 Negative (Negative)
--- NOTE | 2025-05-23 17:53 | PM.IMHP ---
History of Present Illness Date of Service: 05/23/25 Chief Complaint: dyspnea, cough This history was taken in Kiswahili from the patient. 89yo F with DM2, HFrEF, hypothyroidism, HTN, pAF and DVT on warfarin with hx IVC filter placement presenting with several days of worsening dyspnea, orthopnea, cough, and leg swelling. She does not weigh herself daily. She lives alone and takes care of herself but has adult children nearby to check in on her. She recently had a Cardiolite stress test on 04/25/25 that demonstrated possible apical ischemia. She denies any chest pain or fever at this time. She was found to have pulmonary edema on CXR and was given furosemide IV for respiratory distress. She feels somewhat better now after urinating 500 mL. NTproBNP was elevated. EKG showed atrial flutter with 4:1 block, rate around 60. Review of Systems Review of Systems: Yes all other systems are reviewed and are negative [facility] Medical History Prolonged QT interval Prolonged QT interval Heart block Hypertension CHF (congestive heart failure) Pneumonia Multiple falls Acute on chronic respiratory failure with hypoxemia Weakness Urgency incontinence Menopause Well woman exam Current use of anticoagulant therapy Stenosis of carotid artery Diabetes type 2, controlled Sepsis Gastroenteritis Hypoxia Pneumonia Urinary incontinence Obesity due to excess calories Type 2 diabetes mellitus with diabetic polyneuropathy Senile cataract of left eye Essential hypertension Hyperlipemia Paroxysmal A-fib Anxiety disorder Hypothyroidism Coronary artery disease History of cerebrovascular accident Osteoarthritis Osteopenia Deep vein thrombosis Hearing loss Family History Father Heart disease CVD (cardiovascular disease) Mother Diabetes Surgical History H/O colonoscopy H/O breast surgery S/P IVC filter History of bilateral tubal ligation Social History Household Members: None Housing: Apartment Do you presently have visiting nurse or other home services: Yes Alcohol intake: never Patient Tobacco Use Status: Former Tobacco user Tobacco use type: Cigarette Smoked in Last 30 Days: No Use of substances other than those prescribed or required for medical reasons: No Advance Directives: Yes Advance Directives on File: Yes Advance Directives Date on File: 07/01/22 Do you have a plan to hurt others: No Plan service: No Current occupational status: unemployed Sexual orientation: Straight/Heterosexual Gender identity: Female Meds Allergies Allergy/AdvReac Type Severity Reaction Status Date / Time shellfish derived Allergy Severe Hives Verified 05/23/25 14:08 aspirin (Aspirin) Allergy Mild Gastrointestinal Verified 05/23/25 14:08 Upset ibuprofen Allergy Unknown Unknown Verified 05/23/25 14:08 oxycodone (From PERCOCET) Allergy Unknown PALPITATION Verified 05/23/25 14:08 S Robitussin Cold Cough+ Chest Allergy Intermediate hives Uncoded 05/23/25 14:08 SEAFOOD Allergy Intermediate hives Uncoded 05/23/25 14:08 Active Medications: Current Medications Atorvastatin Calcium (Atorvastatin Calcium 20 Mg Tablet) 20 mg PO BEDTIME [facility] Dextrose (Dextrose 50 % 25 Gm/50 Ml Syringe) 25 gm IVPUSH Q15M PRN; Protocol PRN Reason: per Hypoglycemia Standing Ord. Furosemide (Furosemide 40 Mg/4 Ml Vial) 40 mg IVPUSH DAILY [facility]; Protocol Glucose (Glucose Gel 15 Gm Gel..Gram.) 15 gm PO Q15M PRN; Protocol PRN Reason: per Hypoglycemia Standing Ord. Insulin Glargine (Insulin Glargine,Hum.Rec.Anlog 100 Unit/Ml 10 Ml Vial) 25 unit SUBCUT DAILY [facility] Insulin Human Lispro (Insulin Lispro 100 Unit/Ml 3 Ml Vial) 0 unit SUBCUT QIDACHS [facility]; Protocol Levothyroxine Sodium (Levothyroxine Sodium 100 Mcg Tablet) 100 mcg PO DAILY@0600 [facility] Metoprolol Tartrate (Metoprolol Tartrate 12.5 Mg Halftab) 12.5 mg PO BID [facility]; Protocol Home Medications ?Medication ?Instructions ?Recorded ?Confirmed ?Last Taken ?Type atorvastatin 20 mg tablet 20 mg PO BEDTIME 05/21/20 02/13/25 02/08/24 History blood sugar diagnostic #10 ea 05/21/20 03/22/24 Unknown History cholecalciferol (vitamin D3) 50 50 mcg PO DAILY 05/21/20 02/13/25 02/08/24 History mcg (2,000 unit) tablet fluticasone propionate 50 2 spray intranasal DAILY 05/21/20 02/13/25 02/08/24 History mcg/actuation nasal spray,suspension lancets #100 ea 05/21/20 03/22/24 Unknown History levothyroxine 100 mcg tablet 100 mcg PO DAILY@0600 05/21/20 02/13/25 02/08/24 History omeprazole 20 mg capsule,delayed 20 mg PO BID@0630,1630 05/21/20 02/13/25 02/08/24 History release pen needle, diabetic 32 gauge x #50 ea 05/21/20 03/22/24 Unknown History sertraline 50 mg tablet 50 mg PO DAILY 05/21/20 02/13/25 02/08/24 History metoprolol tartrate 25 mg tablet 12.5 mg PO BID 12/17/20 02/13/25 02/08/24 History nebulizers (Sidestream misc) #1 ea 05/14/21 03/22/24 Unknown History docusate sodium 100 mg capsule 100 mg PO BID 04/19/23 02/13/25 Unknown History acetaminophen 650 mg 650 mg PO Q8H PRN Pain/Fever 02/09/24 02/13/25 Unknown History tablet,extended release ciclopirox 0.77 % topical cream 1 appl topical BID 09/16/24 02/13/25 Unknown History insulin glargine 100 unit/mL (3 26 unit subcut DAILY 09/16/24 02/13/25 Unknown History mL) subcutaneous pen (Lantus Solostar U-100 Insulin) loratadine 10 mg tablet 10 mg PO DAILY PRN Allergy Symptoms 09/16/24 02/13/25 Unknown History semaglutide 0.25 mg or 0.5 mg (2 0.5 mg subcut FR 09/16/24 02/13/25 10/04/24 History mg/3 mL) subcutaneous pen injector (Ozempic) solifenacin 10 mg tablet 10 mg PO DAILY 09/16/24 02/13/25 Unknown History warfarin 4 mg tablet 4 mg PO DAILY@1800 10/11/24 02/13/25 10/10/24 History cetirizine 10 mg tablet 5 mg PO DAILY 02/13/25 02/13/25 Unknown History fluticasone 500 mcg-salmeterol 50 1 ea inhalation BID 02/13/25 02/13/25 Unknown History mcg/dose blistr powdr for inhalation (Wixela Inhub) metformin 500 mg tablet,extended 500 mg PO BIDWM 02/13/25 02/13/25 Unknown History release 24 hr multivitamin-iron sulfate 15 1 tab PO DAILY 02/13/25 02/13/25 Unknown History mg-folic acid 400 mcg tablet (Tab-A-Judith Multivitamin w-iron) diclofenac sodium 1 % topical gel 4 g topical QID PRN Pain 05/23/25 Unknown History furosemide 20 mg tablet 60 mg PO DAILY 05/23/25 Unknown History magnesium oxide 400 mg (241.3 mg 400 mg PO DAILY 05/23/25 Unknown History magnesium) tablet Physical Exam Vital Signs and Narrative: Vital Signs: Last Vital Signs Temp 97.5 F 05/23/25 14:07 Pulse 80 05/23/25 14:07 Resp 20 05/23/25 14:07 BP 152/57 H 05/23/25 15:40 Pulse Ox 97 05/23/25 14:07 O2 Del Method Nasal Cannula 05/23/25 14:07 Oxygen Flow Rate 2 05/23/25 14:07 BMI result Body Mass Index 43.9 Gen: mild respiratory distress HEENT: sclera anicteric, moist mucus membranes Neck: supple Lungs: diminished bilaterally Heart: regular rate and rhythm, no murmurs Abd: soft, non-tender, non-distended, obese Ext: 2+ symmetrical pitting leg edema Skin: warm/well-perfused Neuro: alert and oriented x3, no focal findings Psych: appropriate affect Results Labs 05/23/25 15:32 05/23/25 15:32 Labs: Laboratory Results - last 24 hr 05/23/25 05/23/25 15:32 16:46 MCV 96.2 MCH 30.1 MCHC 31.3 RDW 14.4 Plt Count 154 L D MPV 10.7 Immature Gran % (Auto) 0.3 Neut % (Auto) 68.0 Lymph % (Auto) 21.8 [place] % (Auto) 6.0 Eos % (Auto) 3.5 Baso % (Auto) 0.4 Lymph # (Auto) 1.7 [place] # (Auto) 0.5 Eos # (Auto) 0.3 Baso # (Auto) 0.0 Abs Immat Gran (auto) 0.02 Absolute Neuts (auto) 5.4 Absolute Nucleated RBC 0.000 Nucleated RBC % (auto) 0.0 PT 35.2 H D INR 3.1 H Anion Gap 10 L Estim Creat Clear Calc 40.5 Estimated GFR 52 Random Glucose 183 H Calcium 9.3 Magnesium 1.6 Total Bilirubin 0.5 Direct Bilirubin 0.3 AST 27 ALT 26 Alkaline Phosphatase 119 H Troponin I High Sens 43.8 H C-Reactive Protein 0.81 H NT-Pro-B Natriuret Pep 1923.6 H Total Protein 7.4 Albumin 3.9 Lipase 7 L Urine Color Yellow Urine Appearance Clear Urine pH 6.0 Ur Specific [place] 1.010 Urine Protein Negative Urine Glucose (UA) Negative Urine Ketones Negative Urine Blood Negative Urine Nitrite Negative Ur Leukocyte Esterase Negative COVID-19 (MUSHTAQ) Negative COVID-19 Clin Com See Note Influenza Type A (DANIELLE) Negative Influenza Type B (DANIELLE) Negative Influenza A & B Note See Note Imaging Radiologist's Impressions: Impressions Chest X-Ray 05/23/25 14:34 IMPRESSION: Findings suggestive of mild pulmonary edema in the appropriate clinical circumstance. Possible trace bilateral pleural effusions. Electronically signed by: Lam Zuluaga MD 05/23/2025 02:35 PM EDT RP Assessment and Plan (1) CHF (congestive heart failure): Qualifiers: Heart failure chronicity: acute on chronic Heart failure type: unspecified Qualified Code(s): I50.9 - Heart failure, unspecified Status: Acute Plan 89yo F with DM2, HFrEF, hypothyroidism, HTN, pAF and DVT on warfarin with hx IVC filter placement presenting dyspnea, orthopnea, cough, and leg edema; found to be volume overloaded in acute decompensated heart failure acute-chronic HFrEF - admit to telemetry, diurese with IV furosemide, monitor I/O + lytes + wts + NT-proBNP, consult Cardiology luisito given recent possible positive stress test; recheck hs-Tn-I - continue metoprolol; additional neurohormonal modulation as tolerated by BP and renal function atrial flutter - rate-controlled on metoprolol; anticoagulated with warfarin. INR 3.1 today mood disorder: sertraline HLD: statin DM2: hold MTF, give basal-bolus insulin hypothyroidism: continue levothyroxine VTE prophylaxis: warfarin dispo: TBD code status: full I anticipate that the patient will stay at least 2 midnights as an inpatient in the hospital due to the above reasons. It is neither reasonable nor safe to care for them in a less acute setting. Quality Stroke Does the patient have a stroke diagnosis?: No VTE Prior VTE?: No VTE Risk Level:: Medical - moderate - high VTE Device Contraindication: N/A - Device Ordered VTE Drug Contraindication: N/A - Med Ordered
[2025-05-23 18:56] VITALS: BP 158/56; PULSE 62; RESP 18; TEMP 36.4; O2SAT 95
--- NOTE | 2025-05-23 19:24 | HO.NURTONUR ---
KAZAKH SPEAKING 89yo F with DM2, HFrEF, hypothyroidism, HTN, pAF and DVT on warfarin with hx IVC filter placement presenting with several days of worsening dyspnea, orthopnea, cough, and leg swelling. She does not weigh herself daily. She lives alone and takes care of herself but has adult children nearby to check in on her. She recently had a Cardiolite stress test on 04/25/25 that demonstrated possible apical ischemia. She denies any chest pain or fever at this time. She was found to have pulmonary edema on CXR and was given furosemide IV for respiratory distress. She feels somewhat better now after urinating 500 mL. NTproBNP was elevated. EKG showed atrial flutter with 4:1 block, rate around 60. BIBA from home - c/o productive cough x week EMS got sats in 80's. on 2lpm NC at this time. does not wear O2 at home. on Plexxi now - 800cc output. alert and orientated w/daughter at bedside. BNP elevated @ 1923
--- NOTE | 2025-05-23 19:29 | PC.NURSE ---
report for admit in system.
[2025-05-23 19:41] LABS: Troponin-I High Sensitivity 47.5 ng/L (<3.5-17.0)
[2025-05-23 20:59] VITALS: BP 156/74; PULSE 65; RESP 18; TEMP 37; O2SAT 94
[2025-05-23 21:25] LABS: Glucose, Whole Blood 167 mg/dL (60-115)
--- NOTE | 2025-05-23 22:31 | PHA.MEDREC ---
Addendum entered by Earnest Bagley RPh 05/23/25 22:49: MED REC REVIEWED BY [facility]. Dr. Fay was made aware that we couldn't confirm dosing of Lantus and warfarin, will follow up tomorrow morning. Original Note: Pharmacy Consult ? Medication Reconciliation Pharmacy has completed the medication reconciliation. Spoke with pt daughter at bedside (C[place]ina) and she was able to confirm most of the pt medications; she only did not know how many units the pt uses of her Lantus, last time pt took her Ozempic or pt Warfarin dose at this time and said to call her sister Farzana or pt morning nurse Heather ([phone]). I called both Farzana and Heather a few times and left voicemails for them to call us back; will have Am team follow up to confirm doses.
[2025-05-23 23:26] VITALS: BMI 42.0
[2025-05-24] VITALS (10 sets, daily range): BP systolic 116–178; BP diastolic 54–72; PULSE 48–87; RESP 16–20; TEMP 36.1–36.8; O2SAT 95–98; BMI 42.1
--- NOTE | 2025-05-24 | ECG_ITS ---
Test Reason : chest pain Blood Pressure : */* mmHG Vent. Rate : 51 BPM Atrial Rate : 242 BPM P-R Int : * ms QRS Dur : 90 ms QT Int : 464 ms P-R-T Axes : 89 61 50 degrees QTcB Int : 427 ms Atrial flutter with variable A-V block Abnormal ECG When compared with ECG of 23-May-2025 14:44, No significant change was found Referred By: Ann Galan Electronically Signed By: CATHI PEOPLES MD
[2025-05-24] MEDS: 0.9 % Sodium Chloride Flush 3 ML SYRINGE IVFLUSH ×3 (00:06→22:42)
[2025-05-24 06:55] LABS: Venous Blood Gas Refer to POC result
[2025-05-24 06:59] LABS: VBG HCO3 35 mmol/L (22-26); VBG O2 % Saturation 99.0 %
[2025-05-24 07:09] LABS: INTERNATIONAL NORM RATIO 3.5 (0.9-1.1); Prothrombin Time 40.2 SEC (10.9-12.4)
[2025-05-24 07:18] LABS: Anion Gap 11 (12-20); Blood Urea Nitrogen 16 mg/dL (9-16); Calcium 9.2 mg/dL (8.4-10.2); Carbon Dioxide 30 mmol/L (22-29); Chloride 107 mmol/L (96-108); Creatinine Clr Calc Pharmacy 41.1; Estimated Glomerular Filt Rate 54; Magnesium 1.7 mg/dL (1.6-2.6); Potassium 3.7 mmol/L (3.3-5.1); Sodium 144 mmol/L (135-145)
[2025-05-24 07:26] LABS: NT Pro B Type Natriuretic Pept 1723.9 pg/mL (<300)
[2025-05-24 07:38] LABS: Glucose, Whole Blood 94 mg/dL (60-115)
--- NOTE | 2025-05-24 10:00 | CA_ITS ---
Transthoracic Echocardiogram Patient (Last, First, Middle): Nikky Guevara, Gender: Female Date of : 1935 Age: 89 Procedure Date: 05/24/2025 Procedure Type: Transthoracic [place] [facility] [place]: 152.4 cm Weight: 97.52 kg BSA: 1.92 m2 Heart Rate: bpm BP: 116 / 71 mmHg Rougher For Cement: LULU Referring MD: Ann Galan MD Leather Toggler: Chris Smith MD Symptoms: adhf Study Quality: Adequate w contrast ECG Rhythm: Atrial flutter Conclusions: - 1. Low normal LV ejection fraction 50-55% with restrictive filling defect 2. Normal LV size with [id number] RV systolic dysfunction by TAPSE 3. Moderate biatrial enlargement 4. Normal cardiac valvular Dopplers 5. Moderately elevated right ventricular systolic pressure with moderately elevated right atrial pressures 6. No gross pericardial effusion Findings Procedure Information Contrast agent, definity, is being given per protocol without apparent complications. The quality of the study was technically difficult. The study quality is limited by patients body habitus and lung artifact. Left Ventricle Normal left ventricular cavity size. There is normal left ventricular wall thickness. The left ventricular systolic function is low normal. The visually estimated ejection fraction is between 50-55%. Spectral Doppler is indicative of a restrictive filling pattern. Right Ventricle Normal right ventricular cavity size. There is mild to moderately decreased right ventricular systolic function. Atria Moderate biatrial enlargement. Interatrial shunt cannot be excluded. Aortic Valve There is mild calcification of the aortic valve. There is no aortic valve stenosis. There is no aortic valve regurgitation. Mitral Valve There is mild anterior and posterior mitral leaflet thickening. There is mild mitral annular calcification. There is trace mitral valve regurgitation. There is no mitral valve stenosis. Pulmonic Valve The pulmonic valve is likely normal. There is trace pulmonic valve regurgitation. Tricuspid Valve Normal tricuspid valve structure. There is mild tricuspid valve regurgitation. Moderately elevated right atrial pressure. Moderate pulmonary hypertension is present. Great Vessels The pulmonary artery was not well visualized. There is no dilatation of the ascending aorta measuring 3.60 cm. Small plaque is seen in the sino tubular ridge. Venous The inferior vena cava is moderately dilated and collapses less than 50% with inspiration. Pericardium/Pleural There is no evidence of pericardial effusion. Prior Study Comparison Changes noted compared to prior study dated: 05/24/2024. LV ejection fraction seems to have improved on this study. Measurements 2D Linear Measurements IVSd: 1.01 0.6-0.9/0.6-1.0 cm LVIDd: 4.94 3.9-5.3/4.2-5.9 cm LVIDd Index: 2.57 2.4-3.2/2.2-3.1 cm/m2 LVIDs: 3.67 2.0-3.6 cm LVPWd: 0.75 0.7-1.1 cm LA Diam: 4.30 2.7-3.8/3.0-4.0 cm LAIDs Index: 2.24 1.5-2.3 cm/m2 LV Mass: 187.28 67-162/88-224 g LV Mass Index: 97.54 43-95/49-115 g/m2 LVOT Diam: 2.20 3.0+(-)1.3 cm 2D Systolic Function EF 4C: 50.00 >55% EF 2C: 55.30 >55% EF BiP: 52.30 >55% Mitral Valve MV Pk E: 1.23 MV Decel Time: 151.00 E'Lateral: 9.29 E'Medial: 7.36 E/E' Med: 16.70 E/E' Lat: 13.20 PHT: 44.00 MVA PHT: 5.00 Decel [place]: 8.17 Aortic Valve AoV Pk Hank: 1.26 AoV Pk Grad: 6.00 KENNY: 1.91 LVOT LVOT Pk Hank: 0.63 LVOT Mn Hank: 0.48 LVOT VTI: 0.16 LVOT Pk Grad: 2.00 LVOT Mn Grad: 1.00 LVOT Diam: 2.20 LVOT Area: 3.80 Diastolic Function MV Pk E: 1.23 E'Medial: 7.36 E/E' Med: 16.70 E' Laterial: 9.29 E/E' Lat: 13.20 Right Ventricle TAPSE (mm): 14.70 TVS' Hank: 9.81 Tricuspid Valve TR Pk Hank: 3.38 TR Pk Grad: 46.00 RA Press: 15.00 RVSP: 61.00 Great Vessels Aorta Sinus of Valsalva: 3.10 2.0-3.5 cm Ao Asc: 3.60 2.1-3.4 cm Pulmonary Valve PV Pk Hank: 0.64 Peak PV Grad: 2.00 Updated in Other Vendor System with Status of Final Chris Smith MD electronically signed on 05/25/2025 12:20:41 PM with status of Final
--- NOTE | 2025-05-24 10:09 | MHC.CM.PN ---
CM met with Patient at bedside, with the assist of a Lab Head and addressed IMM with Patient, providing her with the original and a copy has been placed on the chart. Patient lives alone in an apartment and she uses a w/c to assist with mobility. 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 Home/resume said services is Patient's goal and CM has initiated and will follow for dc planning. PCP is Dr. Valeri Lerner and Son will transport at dc.
--- NOTE | 2025-05-24 11:10 | P.PNIM_ITS ---
Subjective Subjective Date of Service: 05/24/25 Interval History: This history was taken in Korean from the patient. Diuresing Dyspnea/orthopnea improved; still coughing Leg swelling improved No chest pain Review of Systems Review of Systems: Yes all other systems are reviewed and are negative Physical Exam 2 Vital Signs: Vital Signs: Last Vital Signs Temp 97.0 F 05/24/25 08:00 Pulse 48 L 05/24/25 10:00 Resp 20 05/24/25 08:00 BP 116/71 05/24/25 08:00 Pulse Ox 98 05/24/25 08:00 O2 Del Method Nasal Cannula 05/24/25 08:00 O2 Flow Rate 2 05/24/25 08:00 Oxygen Flow Rate 2 05/23/25 14:07 BMI result Body Mass Index 42.0 Gen: in no acute distress HEENT: sclera anicteric, moist mucus membranes Neck: supple, JVD present Lungs: diminished air entry at bases bilaterally Heart: irregular, slow, no murmurs Abd: soft, non-tender, non-distended, obese Ext: no edema Skin: warm/well-perfused Neuro: alert and oriented x3, no focal findings Psych: appropriate affect Objective Data Active Medications Acetaminophen (Acetaminophen 325 Mg Tablet) 650 mg PO Q6H PRN PRN Reason: Pain, Mild 1-3,fever,headache Last Admin: 05/24/25 00:05 Dose: 650 mg Documented By: SAMMY Albuterol Sulfate (Albuterol Sulfate 90 Mcg 8 Gm Inhaler) 2 puff INHALE Q6H PRN PRN Reason: Wheezing Atorvastatin Calcium (Atorvastatin Calcium 20 Mg Tablet) 20 mg PO BEDTIME GER Last Admin: 05/24/25 00:05 Dose: 20 mg Documented By: SAMMY Calcium Carbonate (Calcium Carbonate 750 Mg Tab.Chew) 750 mg PO Q4H PRN PRN Reason: Heartburn Dextrose (Dextrose 50 % 25 Gm/50 Ml Syringe) 25 gm IVPUSH Q15M PRN; Protocol PRN Reason: per Hypoglycemia Standing Ord. Docusate Sodium (Docusate Sodium 100 Mg Capsule) 100 mg PO BID [facility] Fluticasone Propionate (Fluticasone Propionate Nasal 16 Gm Secor) 2 spray NOSTRIL-B DAILY [facility] Fluticasone/Vilanterol (Fluticasone/Vilanterol 200/25 Blst.WPatriciaDev) 1 puff INHALE RDAILY [facility] Last Admin: 05/24/25 08:50 Dose: Not Given Documented By: WEN Non-Admin Reason: pharmacy to bring med Furosemide (Furosemide 40 Mg/4 Ml Vial) 40 mg IVPUSH DAILY [facility]; Protocol Glucose (Glucose Gel 15 Gm Gel..Gram.) 15 gm PO Q15M PRN; Protocol PRN Reason: per Hypoglycemia Standing Ord. Insulin Glargine (Insulin Glargine,Hum.Rec.Anlog 100 Unit/Ml 10 Ml Vial) 25 unit SUBCUT DAILY [facility] Insulin Human Lispro (Insulin Lispro 100 Unit/Ml 3 Ml Vial) 0 unit SUBCUT QIDACHS [facility]; Protocol Last Admin: 05/24/25 08:26 Dose: Not Given Documented By: MARCO ANTONIO Non-Admin Reason: No Insulin Coverage Levothyroxine Sodium (Levothyroxine Sodium 100 Mcg Tablet) 100 mcg PO DAILY@0600 [facility] Last Admin: 05/24/25 06:16 Dose: 100 mcg Documented By: SAMMY Loratadine (Loratadine 10 Mg Tablet) 5 mg PO DAILY [facility] Magnesium Hydroxide (Milk Of Magnesia 30 Ml Oral.Susp) 30 ml PO DAILY PRN PRN Reason: Constipation Magnesium Oxide (Magnesium Oxide 400 Mg Tablet) 400 mg PO DAILY [facility] Melatonin (Melatonin 3 Mg Tablet) 6 mg PO BEDTIME PRN PRN Reason: Insomnia Metoprolol Tartrate (Metoprolol Tartrate 12.5 Mg Halftab) 12.5 mg PO BID [facility]; Protocol Last Admin: 05/24/25 00:07 Dose: Not Given Documented By: SAMMY Non-Admin Reason: low HR Multivitamins/Vitamin C (Multivitamin Tablet) 1 tab PO DAILY [facility] Omeprazole (Omeprazole 20 Mg Capsule.Dr) 20 mg PO BID@0630,1630 [facility] Ondansetron HCl (Ondansetron Hcl 4 Mg/2 Ml Vial) 4 mg IVPUSH Q8H PRN PRN Reason: Nausea and Vomiting Polyethylene Glycol (Polyethylene Glycol 3350 17 Gm Powd.Pack) 17 gm PO DAILY [facility] Sertraline HCl (Sertraline Hcl 50 Mg Tablet) 50 mg PO DAILY [facility] Sodium Chloride (0.9 % Sodium Chloride Flush 3 Ml Syringe) 3 ml IVFLUSH QSHIFT [facility] Last Admin: 05/24/25 00:06 Dose: 3 ml Documented By: SAMMY Tolterodine Tartrate (Tolterodine Tartrate La 4 Mg Cap.Er.24h) 4 mg PO DAILY [facility] Vitamin D (Cholecalciferol (Vitamin D3) 25 Mcg Tablet) 50 mcg PO DAILY [facility] Warfarin Sodium (Warfarin Sodium 4 Mg Tablet) 4 mg PO DAILY@1800 [facility] Labs 05/23/25 15:32 05/24/25 06:47 Labs: Laboratory Results - last 24 hr 05/23/25 05/23/25 05/23/25 15:32 16:46 19:11 MCV 96.2 MCH 30.1 MCHC 31.3 RDW 14.4 Plt Count 154 L D MPV 10.7 Immature Gran % (Auto) 0.3 Neut % (Auto) 68.0 Lymph % (Auto) 21.8 [place] % (Auto) 6.0 Eos % (Auto) 3.5 Baso % (Auto) 0.4 Lymph # (Auto) 1.7 [place] # (Auto) 0.5 Eos # (Auto) 0.3 Baso # (Auto) 0.0 Abs Immat Gran (auto) 0.02 Absolute Neuts (auto) 5.4 Absolute Nucleated RBC 0.000 Nucleated RBC % (auto) 0.0 PT 35.2 H D INR 3.1 H VBG pH VBG pCO2 VBG pO2 VBG HCO3 VBG O2 Saturation VBG Base Excess Anion Gap 10 L Estim Creat Clear Calc 40.5 Estimated GFR 52 POC Glucose Random Glucose 183 H Calcium 9.3 Magnesium 1.6 Total Bilirubin 0.5 Direct Bilirubin 0.3 AST 27 ALT 26 Alkaline Phosphatase 119 H Troponin I High Sens 43.8 H 47.5 H C-Reactive Protein 0.81 H NT-Pro-B Natriuret Pep 1923.6 H Total Protein 7.4 Albumin 3.9 Lipase 7 L Urine Color Yellow Urine Appearance Clear Urine pH 6.0 Ur Specific [place] 1.010 Urine Protein Negative Urine Glucose (UA) Negative Urine Ketones Negative Urine Blood Negative Urine Nitrite Negative Ur Leukocyte Esterase Negative COVID-19 (MUSHTAQ) Negative COVID-19 Clin Com See Note Influenza Type A (DANIELLE) Negative Influenza Type B (DANIELLE) Negative Influenza A & B Note See Note 05/23/25 05/24/25 05/24/25 21:20 06:47 06:54 MCV MCH MCHC RDW Plt Count MPV Immature Gran % (Auto) Neut % (Auto) Lymph % (Auto) [place] % (Auto) Eos % (Auto) Baso % (Auto) Lymph # (Auto) [place] # (Auto) Eos # (Auto) Baso # (Auto) Abs Immat Gran (auto) Absolute Neuts (auto) Absolute Nucleated RBC Nucleated RBC % (auto) PT 40.2 H INR 3.5 H VBG pH 7.48 H VBG pCO2 47 VBG pO2 109 VBG HCO3 35 H VBG O2 Saturation 99.0 VBG Base Excess 11.0 Anion Gap 11 L Estim Creat Clear Calc 41.1 Estimated GFR 54 POC Glucose 167 H Random Glucose 101 Calcium 9.2 Magnesium 1.7 Total Bilirubin Direct Bilirubin AST ALT Alkaline Phosphatase Troponin I High Sens C-Reactive Protein NT-Pro-B Natriuret Pep 1723.9 H Total Protein Albumin Lipase Urine Color Urine Appearance Urine pH Ur Specific [place] Urine Protein Urine Glucose (UA) Urine Ketones Urine Blood Urine Nitrite Ur Leukocyte Esterase COVID-19 (MUSHTAQ) COVID-19 Clin Com Influenza Type A (DANIELLE) Influenza Type B (DANIELLE) Influenza A & B Note 05/24/25 07:33 MCV MCH MCHC RDW Plt Count MPV Immature Gran % (Auto) Neut % (Auto) Lymph % (Auto) [place] % (Auto) Eos % (Auto) Baso % (Auto) Lymph # (Auto) [place] # (Auto) Eos # (Auto) Baso # (Auto) Abs Immat Gran (auto) Absolute Neuts (auto) Absolute Nucleated RBC Nucleated RBC % (auto) PT INR VBG pH VBG pCO2 VBG pO2 VBG HCO3 VBG O2 Saturation VBG Base Excess Anion Gap Estim Creat Clear Calc Estimated GFR POC Glucose 94 Random Glucose Calcium Magnesium Total Bilirubin Direct Bilirubin AST ALT Alkaline Phosphatase Troponin I High Sens C-Reactive Protein NT-Pro-B Natriuret Pep Total Protein Albumin Lipase Urine Color Urine Appearance Urine pH Ur Specific [place] Urine Protein Urine Glucose (UA) Urine Ketones Urine Blood Urine Nitrite Ur Leukocyte Esterase COVID-19 (MUSHTAQ) COVID-19 Clin Com Influenza Type A (DANIELLE) Influenza Type B (DANIELLE) Influenza A & B Note Assessment and Plan (1) CHF (congestive heart failure): Status: Acute Plan d2 for 89yo F with DM2, HFrEF, hypothyroidism, HTN, pAF and DVT on warfarin with hx IVC filter placement presenting dyspnea, orthopnea, cough, and leg edema; found to be volume overloaded in acute decompensated heart failure acute-chronic HFrEF - still overloaded; continue to diurese with IV furosemide, monitor I/O [neg 1600 mL thus far] + lytes + wts + NT-proBNP, consult with Cardiology pending; discuss recent possible positive stress test; hs-Tn-I flat - hold metoprolol tartrate given rate in 40s; will add empagliflozin; additional neurohormonal modulation as tolerated by BP and renal function atrial flutter -rate in 40s; hold metoprolol tartrate; anticoagulated with warfarin. INR 3.5 today; hold warfarin mood disorder: sertraline HLD: statin DM2: hold MTF, give basal-bolus insulin hypothyroidism: continue levothyroxine VTE prophylaxis: warfarin dispo: PT eval In my clinical judgment, the patient requires continued inpatient hospitalization for the following reasons: IV diuresis, Cardiology consultation Total time managing care of this patient today: 40 minutes. Quality Stroke Does the patient have a stroke diagnosis?: No VTE Prior VTE?: No VTE Risk Level:: Medical - moderate - high VTE Device Contraindication: N/A - Device Ordered VTE Drug Contraindication: N/A - Med Ordered
[2025-05-24] MEDS: Insulin Glargine,Hum.rec.anlog 100 UNIT/ML 10 ML VIAL 25 UNIT SUBCUT (11:24)
[2025-05-24 11:25] LABS: Glucose, Whole Blood 215 mg/dL (60-115)
[2025-05-24] MEDS: Furosemide 40 MG/4 ML VIAL IVPUSH ×2 (11:25→18:32)
--- NOTE | 2025-05-24 11:38 | PHA.MEDREC ---
Addendum entered by Marisol Carrillo RPh 05/24/25 11:42: reviewed by [facility], warfarin put on hold by MD per elevated INR. Original Note: Pharmacy Consult ? Medication Reconciliation Pharmacy has completed the medication reconciliation. Confirmed medication list against insurance claims. Made multiple attempts yesterday and today to reach out to patient's family. Left multiple voicemails with no reply. as a result, could not confirm the last day patient took warfarin.
--- NOTE | 2025-05-24 12:06 | P.CONCA_ITS ---
History of Present Illness History of Present Illness Date of Service: 05/24/25 Requesting physician: Ann Galan Consult reason: congestive heart failure and troponin elevation Chief complaint: CHF Narrative: I was consulted to see Nikky in cardiology consultation today for decompensated congestive heart failure patient with prior [id number] LV systolic dysfunction with mildly abnormal myocardial perfusion imaging testing. History was obtained with help of materials inspector in the room. Patient says she came to the hospital because of progressive leg edema at home over the last 3 days. She is on 60 mg of Lasix at home and says that she has been taking all medication but does not know what medications. When asked her about warfarin she is not sure about the warfarin therapy. She also complains to me of chest pain which is retrosternal worse with coughing. She denies any pressure-like symptoms. She is a very vague historian. She denies any shortness of breath although visibly appears to be short of breath to me. She is admitted with decompensated congestive heart failure with elevated BNP as well as chest x-ray finding consistent with pulmonary edema and has received diuresis. She has a negative balance of about 1600 cc seen in his chart. Her troponins are minimally elevated and flat. EKGs shows atrial flutter with variable block. Overnight she has remained in atrial fibrillation flutter with slow ventricular response. 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 Review of Systems 2 Constitutional: Constitutional: Reports no additional constitutional complaints Eyes: Eyes: Reports no additional eye complaints Cardiovascular: Cardiovascular: Reports chest pain at rest, Denies rapid heart rate, Reports leg edema, Denies lightheadedness, Denies Loss of Consciousness, Reports dyspnea, Reports dyspnea on exertion and Reports orthopnea Respiratory: Respiratory: Reports no additional respiratory complaints, Reports pain with cough, Reports dyspnea and Reports dyspnea on exertion Gastrointestinal: Gastrointestinal: Reports no additional gastrointestinal complaints Integumentary/Breasts: Skin/Breast: Reports system reviewed and no additional complaints, except as docu Psychiatric: Psychiatric: Reports no additional psychiatric complaints PMFSH Past Medical History Medical History Prolonged QT interval Prolonged QT interval Heart block Hypertension CHF (congestive heart failure) Pneumonia Multiple falls Acute on chronic respiratory failure with hypoxemia Weakness Urgency incontinence Menopause Well woman exam Current use of anticoagulant therapy Stenosis of carotid artery Diabetes type 2, controlled Sepsis Gastroenteritis Hypoxia Pneumonia Urinary incontinence Obesity due to excess calories Type 2 diabetes mellitus with diabetic polyneuropathy Senile cataract of left eye Essential hypertension Hyperlipemia Paroxysmal A-fib Anxiety disorder Hypothyroidism Coronary artery disease History of cerebrovascular accident Osteoarthritis Osteopenia Deep vein thrombosis Hearing loss Family History Family History Father Heart disease CVD (cardiovascular disease) Mother Diabetes Surgical History Surgical History H/O colonoscopy H/O breast surgery S/P IVC filter History of bilateral tubal ligation Social History Social History Household Members: Family and None Housing: House Do you presently have visiting nurse or other home services: Yes Alcohol intake: never Comment: Luda WATSON Patient Tobacco Use Status: Former Tobacco user Tobacco use type: Cigarette Advance Directives Date on File: 07/01/22 service: No Current occupational status: unemployed Sexual orientation: Straight/Heterosexual Gender identity: Female Meds Allergies Allergy/AdvReac Type Severity Reaction Status Date / Time shellfish derived Allergy Severe Hives Verified 05/23/25 14:08 aspirin (Aspirin) Allergy Mild Gastrointestinal Verified 05/23/25 14:08 Upset ibuprofen Allergy Unknown Unknown Verified 05/23/25 14:08 oxycodone (From PERCOCET) Allergy Unknown PALPITATION Verified 05/23/25 14:08 S Robitussin Cold Cough+ Chest Allergy Intermediate hives Uncoded 05/23/25 14:08 SEAFOOD Allergy Intermediate hives Uncoded 05/23/25 14:08 Active Medications: Current Medications Acetaminophen (Acetaminophen 325 Mg Tablet) 650 mg PO Q6H PRN PRN Reason: Pain, Mild 1-3,fever,headache Last Admin: 05/24/25 00:05 Dose: 650 mg Albuterol Sulfate (Albuterol Sulfate 90 Mcg 8 Gm Inhaler) 2 puff INHALE Q6H PRN PRN Reason: Wheezing Atorvastatin Calcium (Atorvastatin Calcium 20 Mg Tablet) 20 mg PO BEDTIME GER Last Admin: 05/24/25 00:05 Dose: 20 mg Calcium Carbonate (Calcium Carbonate 750 Mg Tab.Chew) 750 mg PO Q4H PRN PRN Reason: Heartburn Dextrose (Dextrose 50 % 25 Gm/50 Ml Syringe) 25 gm IVPUSH Q15M PRN; Protocol PRN Reason: per Hypoglycemia Standing Ord. Docusate Sodium (Docusate Sodium 100 Mg Capsule) 100 mg PO BID [facility] Last Admin: 05/24/25 11:20 Dose: 100 mg Empagliflozin (Empagliflozin 10 Mg Tablet) 10 mg PO DAILY [facility] Last Admin: 05/24/25 11:54 Dose: 10 mg Fluticasone Propionate (Fluticasone Propionate Nasal 16 Gm [place]) 2 spray NOSTRIL-B DAILY [facility] Last Admin: 05/24/25 11:54 Dose: 2 spray Fluticasone/Vilanterol (Fluticasone/Vilanterol 200/25 Blst.W.Dev) 1 puff INHALE RDAILY [facility] Last Admin: 05/24/25 08:50 Dose: Not Given Furosemide (Furosemide 40 Mg/4 Ml Vial) 40 mg IVPUSH DAILY [facility]; Protocol Last Admin: 05/24/25 11:25 Dose: 40 mg Glucose (Glucose Gel 15 Gm Gel..Gram.) 15 gm PO Q15M PRN; Protocol PRN Reason: per Hypoglycemia Standing Ord. Insulin Glargine (Insulin Glargine,Hum.Rec.Anlog 100 Unit/Ml 10 Ml Vial) 25 unit SUBCUT DAILY [facility] Last Admin: 05/24/25 11:24 Dose: 25 unit Insulin Human Lispro (Insulin Lispro 100 Unit/Ml 3 Ml Vial) 0 unit SUBCUT QIDACHS [facility]; Protocol Last Admin: 05/24/25 11:53 Dose: 4 unit Levothyroxine Sodium (Levothyroxine Sodium 100 Mcg Tablet) 100 mcg PO DAILY@0600 [facility] Last Admin: 05/24/25 06:16 Dose: 100 mcg Loratadine (Loratadine 10 Mg Tablet) 5 mg PO DAILY [facility] Last Admin: 05/24/25 11:21 Dose: 5 mg Magnesium Hydroxide (Milk Of Magnesia 30 Ml Oral.Susp) 30 ml PO DAILY PRN PRN Reason: Constipation Magnesium Oxide (Magnesium Oxide 400 Mg Tablet) 400 mg PO DAILY [facility] Last Admin: 05/24/25 11:21 Dose: 400 mg Melatonin (Melatonin 3 Mg Tablet) 6 mg PO BEDTIME PRN PRN Reason: Insomnia Metoprolol Tartrate (Metoprolol Tartrate 12.5 Mg Halftab) 12.5 mg PO BID [facility]; Protocol On Hold: 05/24/25 11:16 Last Admin: 05/24/25 11:24 Dose: Not Given Multivitamins/Vitamin C (Multivitamin Tablet) 1 tab PO DAILY [facility] Last Admin: 05/24/25 11:30 Dose: 1 tab Omeprazole (Omeprazole 20 Mg Capsule.Dr) 20 mg PO BID@0630,1630 [facility] Ondansetron HCl (Ondansetron Hcl 4 Mg/2 Ml Vial) 4 mg IVPUSH Q8H PRN PRN Reason: Nausea and Vomiting Polyethylene Glycol (Polyethylene Glycol 3350 17 Gm Powd.Pack) 17 gm PO DAILY [facility] Last Admin: 05/24/25 11:20 Dose: 17 gm Sertraline HCl (Sertraline Hcl 50 Mg Tablet) 50 mg PO DAILY [facility] Last Admin: 05/24/25 11:33 Dose: 50 mg Sodium Chloride (0.9 % Sodium Chloride Flush 3 Ml Syringe) 3 ml IVFLUSH QSHIFT [facility] Last Admin: 05/24/25 11:19 Dose: 3 ml Tolterodine Tartrate (Tolterodine Tartrate La 4 Mg Cap.Er.24h) 4 mg PO DAILY [facility] Last Admin: 05/24/25 11:23 Dose: 4 mg Vitamin D (Cholecalciferol (Vitamin D3) 25 Mcg Tablet) 50 mcg PO DAILY [facility] Last Admin: 05/24/25 11:21 Dose: 50 mcg Warfarin Sodium (Warfarin Sodium 4 Mg Tablet) 4 mg PO DAILY@1800 [facility] Home Medications ?Medication ?Instructions ?Recorded ?Confirmed ?Last Taken ?Type atorvastatin 20 mg tablet 20 mg PO BEDTIME 05/21/2005/22/25 History blood sugar diagnostic #10 ea 05/21/20 03/22/24 Unk nown History cholecalciferol (vitamin D3) 50 50 mcg PO DAILY 05/23/25 05/22/25 History mcg (2,000 unit) tablet fluticasone propionate 50 2 spray intranasal DAILY 05/23/25 05/22/25 History mcg/actuation nasal spray,suspension lancets #100 ea 05/21/20 03/22/24 Un known History levothyroxine 100 mcg tablet 100 mcg PO DAILY@0600 05/23/25 05/22/25 History omeprazole 20 mg capsule,delayed 20 mg PO BID@0630,163 0 05/21/20 05/23/25 05/22/25 History release pen needle, diabetic 32 gauge x #50 ea 05/21/20 Unknown History sertraline 50 mg tablet 50 mg PO DAILY 05/21/2005/0105/22/25 History metoprolol tartrate 25 mg tablet 12.5 mg PO BID 05/23/25 05/22/25 History nebulizers (Sidestream misc) #1 ea 05/14/21 03/22/24 U nknown History docusate sodium 100 mg capsule 100 mg PO BID 04/19/23 05/23/25 05/22/25 History acetaminophen 650 mg 650 mg PO Q8H PRN Pain/Fever 02/09/24 05/23/25 Unknown History tablet,extended release ciclopirox 0.77 % topical cream 1 appl topical BID PRN fungal 09/16/24 05/23/25 05/22/25 History infection insulin glargine 100 unit/mL (3 26 unit subcut DAILY 0 09/16/24 05/24/25 Unknown History mL) subcutaneous pen (Lantus Solostar U-100 Insulin) semaglutide 0.25 mg or 0.5 mg (2 0.5 mg subcut DURON 08/3105/23/25 05/18/25 History mg/3 mL) subcutaneous pen injector (Ozempic) solifenacin 10 mg tablet 10 mg PO DAILY 09/16/2405/0105/22/25 History warfarin 4 mg tablet 4 mg PO DAILY@1800 10/11/24 05/24/25 10/10/24 History fluticasone 500 mcg-salmeterol 50 1 ea inhalation BID 02/13/25 05/23/25 05/22/25 History mcg/dose blistr powdr for inhalation (Wixela Inhub) metformin 500 mg tablet,extended 500 mg PO BIDWM 02/1305/23/25 05/22/25 History release 24 hr multivitamin-iron sulfate 15 1 tab PO DAILY 02/13/25 1 05/22/25 History mg-folic acid 400 mcg tablet (Tab-A-Judith Multivitamin w-iron) albuterol sulfate 90 mcg/actuation 2 puff inhalation Q 6H PRN wheezing 05/23/25 05/23/25 Unknown History aerosol inhaler cetirizine 10 mg tablet 5 mg PO DAILY 05/23/2505/2305/22/25 History diclofenac sodium 1 % topical gel 4 g topical QID PRN Pain 05/23/25 05/23/25 Unknown History furosemide 20 mg tablet 60 mg PO DAILY 05/23/25 1011/2205/22/25 History magnesium oxide 400 mg (241.3 mg 400 mg PO DAILY 05/2305/23/25 05/22/25 History magnesium) tablet Physical Exam 2 Vital Signs: Vital Signs: Last Vital Signs Temp 97.0 F 05/24/25 08:00 Pulse 48 L 05/24/25 10:00 Resp 20 05/24/25 08:00 BP 141/70 H 05/24/25 11:25 Pulse Ox 98 05/24/25 08:00 O2 Del Method Nasal Cannula 05/24/25 08:00 O2 Flow Rate 2 05/24/25 08:00 Oxygen Flow Rate 2 05/23/25 14:07 BMI result Body Mass Index 42.0 Const: General: cooperative, alert, awake and acute distress moderate and respiratory Nutritional Appearance: obese Orientation/consciousness: p atient oriented x3 HEENT: Head: Yes normocephalic and Yes atraumatic Neck: Neck: Yes trachea midline, Yes supple and Yes JVD Resp: Effort & Inspection: normal respiratory effort Auscultation: crackles bilateral at the base Cardio: Jugular venous distension: JVD Rhythm: abnormal rhythm irregularly irregular Heart sounds: S1 normal heart sound present, S2 normal heart sound present, no click, no gallops and no murmurs GI: Auscultation: normal bowel sounds Skin: General skin exam: no rashes or lesions noted Neuro: General: patient oriented x3 and no focal motor deficits Extrem: General: No clubbing, No cyanosis and Yes edema Objective Labs and Meds 05/23/25 15:32 05/24/25 06:47 Lab results: Laboratory Results - last 24 hr 05/23/25 05/23/25 05/23/25 15:32 16:46 19:11 WBC 8.0 RBC 3.72 L Hgb 11.2 L Hct 35.8 L MCV 96.2 MCH 30.1 MCHC 31.3 RDW 14.4 Plt Count 154 L D MPV 10.7 Immature Gran % (Auto) 0.3 Neut % (Auto) 68.0 Lymph % (Auto) 21.8 [place] % (Auto) 6.0 Eos % (Auto) 3.5 Baso % (Auto) 0.4 Lymph # (Auto) 1.7 [place] # (Auto) 0.5 Eos # (Auto) 0.3 Baso # (Auto) 0.0 Abs Immat Gran (auto) 0.02 Absolute Neuts (auto) 5.4 Absolute Nucleated RBC 0.000 Nucleated RBC % (auto) 0.0 PT 35.2 H D INR 3.1 H VBG pH VBG pCO2 VBG pO2 VBG HCO3 VBG O2 Saturation VBG Base Excess Sodium 144 Potassium 3.9 Chloride 105 Carbon Dioxide 33 H Anion Gap 10 L BUN 17 H Creatinine 1.01 Estim Creat Clear Calc 40.5 Estimated GFR 52 POC Glucose Random Glucose 183 H Calcium 9.3 Magnesium 1.6 Total Bilirubin 0.5 Direct Bilirubin 0.3 AST 27 ALT 26 Alkaline Phosphatase 119 H Troponin I High Sens 43.8 H 47.5 H C-Reactive Protein 0.81 H NT-Pro-B Natriuret Pep 1923.6 H Total Protein 7.4 Albumin 3.9 Lipase 7 L Urine Color Yellow Urine Appearance Clear Urine pH 6.0 Ur Specific [place] 1.010 Urine Protein Negative Urine Glucose (UA) Negative Urine Ketones Negative Urine Blood Negative Urine Nitrite Negative Ur Leukocyte Esterase Negative COVID-19 (MUSHTAQ) Negative COVID-19 Clin Com See Note Influenza Type A (DANIELLE) Negative Influenza Type B (DANIELLE) Negative Influenza A & B Note See Note 05/23/25 05/24/25 05/24/25 21:20 06:47 06:54 WBC RBC Hgb Hct MCV MCH MCHC RDW Plt Count MPV Immature Gran % (Auto) Neut % (Auto) Lymph % (Auto) [place] % (Auto) Eos % (Auto) Baso % (Auto) Lymph # (Auto) [place] # (Auto) Eos # (Auto) Baso # (Auto) Abs Immat Gran (auto) Absolute Neuts (auto) Absolute Nucleated RBC Nucleated RBC % (auto) PT 40.2 H INR 3.5 H VBG pH 7.48 H VBG pCO2 47 VBG pO2 109 VBG HCO3 35 H VBG O2 Saturation 99.0 VBG Base Excess 11.0 Sodium 144 Potassium 3.7 Chloride 107 Carbon Dioxide 30 H Anion Gap 11 L BUN 16 Creatinine 0.97 Estim Creat Clear Calc 41.1 Estimated GFR 54 POC Glucose 167 H Random Glucose 101 Calcium 9.2 Magnesium 1.7 Total Bilirubin Direct Bilirubin AST ALT Alkaline Phosphatase Troponin I High Sens C-Reactive Protein NT-Pro-B Natriuret Pep 1723.9 H Total Protein Albumin Lipase Urine Color Urine Appearance Urine pH Ur Specific [place] Urine Protein Urine Glucose (UA) Urine Ketones Urine Blood Urine Nitrite Ur Leukocyte Esterase COVID-19 (MUSHTAQ) COVID-19 Clin Com Influenza Type A (DANIELLE) Influenza Type B (DANIELLE) Influenza A & B Note 05/24/25 05/24/25 07:33 11:18 WBC RBC Hgb Hct MCV MCH MCHC RDW Plt Count MPV Immature Gran % (Auto) Neut % (Auto) Lymph % (Auto) [place] % (Auto) Eos % (Auto) Baso % (Auto) Lymph # (Auto) [place] # (Auto) Eos # (Auto) Baso # (Auto) Abs Immat Gran (auto) Absolute Neuts (auto) Absolute Nucleated RBC Nucleated RBC % (auto) PT INR VBG pH VBG pCO2 VBG pO2 VBG HCO3 VBG O2 Saturation VBG Base Excess Sodium Potassium Chloride Carbon Dioxide Anion Gap BUN Creatinine Estim Creat Clear Calc Estimated GFR POC Glucose 94 215 H Random Glucose Calcium Magnesium Total Bilirubin Direct Bilirubin AST ALT Alkaline Phosphatase Troponin I High Sens C-Reactive Protein NT-Pro-B Natriuret Pep Total Protein Albumin Lipase Urine Color Urine Appearance Urine pH Ur Specific [place] Urine Protein Urine Glucose (UA) Urine Ketones Urine Blood Urine Nitrite Ur Leukocyte Esterase COVID-19 (MUSHTAQ) COVID-19 Clin Com Influenza Type A (DANIELLE) Influenza Type B (DANIELLE) Influenza A & B Note Imaging Radiologist's impression: Impressions Chest X-Ray 05/23/25 14:34 IMPRESSION: Findings suggestive of mild pulmonary edema in the appropriate clinical circumstance. Possible trace bilateral pleural effusions. Electronically signed by: Lam Zuluaga MD 05/23/2025 02:35 PM EDT Assessment and Plan (1) Acute on chronic clinical systolic heart failure: Status: Acute Patient presents with signs and symptoms suggestive of acute congestive heart failure which could be contributing to a cough as well as chest discomfort. Clinically she is responding to diuretic regimen although still seems to be in pulmonary edema. Will continue to give her Lasix but increase Lasix to 40 mg b.i.d.. Agree with Jardiance. Hold off on rate lowering as a overall heart rate has been on the slow side which could also be contributing to her cardiac insufficiency. Will continue monitor. Continue to monitor blood pressure. Blood pressure remains elevated in his potassium level within normal limits consider adding Aldactone will consider that tomorrow. Strict intake and output chart needs to be pursued. Continue to monitor electrolytes and renal function as well as antiplatelet BNP. Troponins are most likely due decompensated congestive heart failure. Will need repeat echocardiogram (2) Atrial fibrillation: Status: Acute Atrial fibrillation/flutter on presentation but has remained in persistent atrial fibrillation with slow ventricular response overnight. Prior EKGs have suggested AV conduction abnormalities. 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 Hold off on metoprolol therapy at this point time. Continue full disclosure cardiac monitoring. Currently on warfarin therapy with target INR between 2 and 3. (3) Atypical chest pain: Status: Acute Patient with chest pain syndrome which is fairly atypical appears to be related to cough. Question musculoskeletal/pleuritic. Chest x-ray is not suggestive of any infiltrative disorder. Continue treat her congestive heart failure. Repeat EKGs and troponin goal be done. Will follow with you Procedures Date of Service Date of Service: 05/24/25
[2025-05-24 13:57] LABS: Troponin-I High Sensitivity 45.4 ng/L (<3.5-17.0)
[2025-05-24 15:48] LABS: Glucose, Whole Blood 130 mg/dL (60-115)
[2025-05-24 20:48] LABS: Glucose, Whole Blood 132 mg/dL (60-115)
[2025-05-25] VITALS (8 sets, daily range): BP systolic 114–164; BP diastolic 55–82; PULSE 62–77; RESP 16–20; TEMP 36.1–37.1; O2SAT 95–99
[2025-05-25 07:54] LABS: Glucose, Whole Blood 143 mg/dL (60-115)
[2025-05-25] MEDS: Fluticasone/Vilanterol 200/25 BLST.W.DEV 1 PUFF INHALE (08:13)
[2025-05-25] MEDS: Furosemide 40 MG/4 ML VIAL IVPUSH ×2 (08:13→16:31)
[2025-05-25] MEDS: Insulin Glargine,Hum.rec.anlog 100 UNIT/ML 10 ML VIAL 25 UNIT SUBCUT (08:15)
[2025-05-25] MEDS: 0.9 % Sodium Chloride Flush 3 ML SYRINGE IVFLUSH ×2 (08:20→16:32)
[2025-05-25 08:53] LABS: INTERNATIONAL NORM RATIO 2.5 (0.9-1.1); Prothrombin Time 28.6 SEC (10.9-12.4)
[2025-05-25 09:24] LABS: Anion Gap 16 (12-20); Blood Urea Nitrogen 20 mg/dL (9-16); Calcium 10.0 mg/dL (8.4-10.2); Carbon Dioxide 28 mmol/L (22-29); Chloride 102 mmol/L (96-108); Creatinine Clr Calc Pharmacy 39.1; Estimated Glomerular Filt Rate 51; Magnesium 1.9 mg/dL (1.6-2.6); Potassium 4.2 mmol/L (3.3-5.1); Sodium 142 mmol/L (135-145)
[2025-05-25 09:29] LABS: NT Pro B Type Natriuretic Pept 1151.6 pg/mL (<300)
--- NOTE | 2025-05-25 09:49 | PM.PNCARD ---
Subjective Subjective Date of Service: 05/25/25 Principal diagnosis: Decompensated congestive heart failure. Interval history: Patient has diuresed well with-3.2 L since yesterday still complains of sharp back of the shoulder discomfort on the left. She says her leg swelling is much better. Breathing has improved. Heart rate has remained stable without significant bradycardia since yesterday Review of Systems Constitutional: Reports no additional constitutional complaints Cardiovascular: Denies chest pain, Denies leg edema, Denies lightheadedness, Denies palpitations and Reports dyspnea on exertion Respiratory: Reports dyspnea on exertion Endocrine: Denies palpitations Physical Exam Vital Signs: Last Vital Signs Temp 98.5 F 05/25/25 08:03 Pulse 77 05/25/25 08:14 Resp 18 05/25/25 08:14 BP 164/69 H 05/25/25 08:03 Pulse Ox 95 05/25/25 08:03 O2 Del Method Nasal Cannula 05/25/25 08:03 O2 Flow Rate 2 05/25/25 08:03 Oxygen Flow Rate 2 05/23/25 14:07 BMI result Body Mass Index 42.1 Const General: cooperative, alert, awake and acute distress moderate and respiratory Nutritional Appearance: obese Orientation/consciousness: patient oriented x3 HEENT Head: Yes normocephalic and Yes atraumatic Neck Neck: Yes trachea midline, Yes supple and Yes no JVD Resp Effort & Inspection: normal respiratory effort Auscultation: crackles bilateral at the base Cardio Jugular venous distension: no JVD Rhythm: abnormal rhythm irregularly irregular Heart sounds: S1 normal heart sound present, S2 normal heart sound present, no click, no gallops and no murmurs GI Auscultation: normal bowel sounds Skin General skin exam: no rashes or lesions noted Neuro General: patient oriented x3 and no focal motor deficits Extrem General: No clubbing, No cyanosis and No edema Objective Labs and Meds 05/23/25 15:32 05/25/25 08:39 Lab results: Laboratory Results - last 24 hr 05/24/25 05/24/25 05/24/25 11:18 13:25 15:25 PT INR Sodium Potassium Chloride Carbon Dioxide Anion Gap BUN Creatinine Estim Creat Clear Calc Estimated GFR POC Glucose 215 H 130 H Random Glucose Calcium Magnesium Troponin I High Sens 45.4 H NT-Pro-B Natriuret Pep 05/24/25 05/25/25 05/25/25 20:39 07:29 08:39 PT 28.6 H D INR 2.5 H Sodium 142 Potassium 4.2 Chloride 102 Carbon Dioxide 28 Anion Gap 16 BUN 20 H Creatinine 1.02 Estim Creat Clear Calc 39.1 Estimated GFR 51 POC Glucose 132 H 143 H Random Glucose 192 H Calcium 10.0 D Magnesium 1.9 Troponin I High Sens NT-Pro-B Natriuret Pep 1151.6 H Progress Note: A&P Assessment and plan (1) Acute on chronic clinical systolic heart failure: Status: Acute Assessment and Plan: Decompensated congestive heart failure in this elderly woman with significant improvement with diuresis. Continue IV diuresis for 1 more day. Check antiplatelet BNP tomorrow. Most likely anticipate discharge tomorrow on increased dose of Lasix as outpatient 80 mg daily. Heart failure education needs to be provided. Continue Jardiance 10 mg. Please out of bed to chair as well as incentive spirometry today. (2) Atrial fibrillation: Status: Acute Assessment and Plan: Atrial fibrillation with improved rate off metoprolol therapy. Discontinue metoprolol therapy for now. Monitor full disclosure cardiac telemetry. Continue full oral anticoagulation as before. Will sign of the case. Thank you for allowing me to partake in her care Time Spent With Patient Time: Total time managing care of this patient today ____ minutes. Progress Note: Quality Stroke Does the patient have a stroke diagnosis?: No Procedures Date of Service Date of Service: 05/25/25
[2025-05-25 11:49] LABS: Glucose, Whole Blood 187 mg/dL (60-115)
--- NOTE | 2025-05-25 14:41 | HO.PM.IMPN ---
Subjective Subjective Date of Service: 05/25/25 Interval History: Continues to improve. Still with O2 requirement Review of Systems Denies chest pain Denies shortness of breath Denies nausea vomiting diarrhea Denies fever chills Physical Exam Vital Signs: Vital Signs: Last Vital Signs Temp 98.8 F 05/25/25 12:00 Pulse 63 05/25/25 12:00 Resp 20 05/25/25 12:00 BP 114/55 L 05/25/25 12:00 Pulse Ox 97 05/25/25 12:00 O2 Del Method Nasal Cannula 05/25/25 12:00 O2 Flow Rate 2 05/25/25 12:00 Oxygen Flow Rate 2 05/23/25 14:07 BMI result Body Mass Index 42.1 Const: Other: Awake alert no acute distress Resp: Other: Clear to auscultation bilaterally diminished at bases Cardio: Other: No S4; positive S1-S2; no S3 murmurs rubs or gallops. Irregularly irregular GI: Other: Soft nontender nondistended normoactive bowel sounds Extrem: Other: No edema bilaterally Objective Data Active Medications Acetaminophen (Acetaminophen 325 Mg Tablet) 650 mg PO Q6H PRN PRN Reason: Pain, Mild 1-3,fever,headache Last Admin: 05/24/25 22:44 Dose: 650 mg Documented By: SAMMY Albuterol Sulfate (Albuterol Sulfate 90 Mcg 8 Gm Inhaler) 2 puff INHALE Q6H PRN PRN Reason: Wheezing Atorvastatin Calcium (Atorvastatin Calcium 20 Mg Tablet) 20 mg PO BEDTIME [facility] Last Admin: 05/24/25 22:42 Dose: 20 mg Documented By: SAMMY Calcium Carbonate (Calcium Carbonate 750 Mg Tab.Chew) 750 mg PO Q4H PRN PRN Reason: Heartburn Dextrose (Dextrose 50 % 25 Gm/50 Ml Syringe) 25 gm IVPUSH Q15M PRN; Protocol PRN Reason: per Hypoglycemia Standing Ord. Docusate Sodium (Docusate Sodium 100 Mg Capsule) 100 mg PO BID [facility] Last Admin: 05/25/25 08:13 Dose: 100 mg Documented By: ARSEN Empagliflozin (Empagliflozin 10 Mg Tablet) 10 mg PO DAILY [facility] Last Admin: 05/25/25 08:13 Dose: 10 mg Documented By: ARSEN Fluticasone Propionate (Fluticasone Propionate Nasal 16 Gm [place]) 2 spray NOSTRIL-B DAILY [facility] Last Admin: 05/25/25 08:11 Dose: 2 spray Documented By: ARSEN Fluticasone/Vilanterol (Fluticasone/Vilanterol 200/25 Blst.W.Dev) 1 puff INHALE RDAILY [facility] Last Admin: 05/25/25 08:13 Dose: 1 puff Documented By: FREDDY Furosemide (Furosemide 40 Mg/4 Ml Vial) 40 mg IVPUSH BID@0900,1800 [facility]; Protocol Last Admin: 05/25/25 08:13 Dose: 40 mg Documented By: ARSEN Glucose (Glucose Gel 15 Gm Gel..Gram.) 15 gm PO Q15M PRN; Protocol PRN Reason: per Hypoglycemia Standing Ord. Insulin Glargine (Insulin Glargine,Hum.Rec.Anlog 100 Unit/Ml 10 Ml Vial) 25 unit SUBCUT DAILY [facility] Last Admin: 05/25/25 08:15 Dose: 25 unit Documented By: ARSEN Insulin Human Lispro (Insulin Lispro 100 Unit/Ml 3 Ml Vial) 0 unit SUBCUT QIDACHS [facility]; Protocol Last Admin: 05/25/25 12:26 Dose: 2 unit Documented By: ARSEN Levothyroxine Sodium (Levothyroxine Sodium 100 Mcg Tablet) 100 mcg PO DAILY@0600 [facility] Last Admin: 05/25/25 06:31 Dose: 100 mcg Documented By: SAMMY Loratadine (Loratadine 10 Mg Tablet) 5 mg PO DAILY [facility] [place] Last Admin: 05/25/25 08:11 Dose: 5 mg Documented By: ARSEN Magnesium Hydroxide (Milk Of Magnesia 30 Ml Oral.Susp) 30 ml PO DAILY PRN PRN Reason: Constipation Magnesium Oxide (Magnesium Oxide 400 Mg Tablet) 400 mg PO DAILY [facility] Last Admin: 05/25/25 08:12 Dose: 400 mg Documented By: ARSEN Melatonin (Melatonin 3 Mg Tablet) 6 mg PO BEDTIME PRN PRN Reason: Insomnia Metoprolol Tartrate (Metoprolol Tartrate 12.5 Mg Halftab) 12.5 mg PO BID [facility]; Protocol On Hold: 05/24/25 11:16 Last Admin: 05/24/25 11:24 Dose: Not Given Documented By: MARCO ANTONIO Non-Admin Reason: Physician Held Med Multivitamins/Vitamin C (Multivitamin Tablet) 1 tab PO DAILY [facility] Last Admin: 05/25/25 08:15 Dose: 1 tab Documented By: ARSEN Omeprazole (Omeprazole 20 Mg Capsule.Dr) 20 mg PO BID@0630,1630 [facility] [place] Last Admin: 05/25/25 06:31 Dose: 20 mg Documented By: SAMMY Ondansetron HCl (Ondansetron Hcl 4 Mg/2 Ml Vial) 4 mg IVPUSH Q8H PRN PRN Reason: Nausea and Vomiting Polyethylene Glycol (Polyethylene Glycol 3350 17 Gm Powd.Pack) 17 gm PO DAILY [facility] Last Admin: 05/25/25 08:14 Dose: 17 gm Documented By: ARSEN Sertraline HCl (Sertraline Hcl 50 Mg Tablet) 50 mg PO DAILY [facility] Last Admin: 05/25/25 08:13 Dose: 50 mg Documented By: ARSEN Sodium Chloride (0.9 % Sodium Chloride Flush 3 Ml Syringe) 3 ml IVFLUSH QSHIFT [facility] Last Admin: 05/25/25 08:20 Dose: 3 ml Documented By: ARSEN Tolterodine Tartrate (Tolterodine Tartrate La 4 Mg Cap.Er.24h) 4 mg PO DAILY [facility] Last Admin: 05/25/25 08:13 Dose: 4 mg Documented By: ARSEN Vitamin D (Cholecalciferol (Vitamin D3) 25 Mcg Tablet) 50 mcg PO DAILY [facility] Last Admin: 05/25/25 08:13 Dose: 50 mcg Documented By: ARSEN Warfarin Sodium (Warfarin Sodium 4 Mg Tablet) 4 mg PO DAILY@1800 [facility] Labs 05/23/25 15:32 05/25/25 08:39 Labs: Laboratory Results - last 24 hr 05/24/25 05/24/25 05/25/25 15:25 20:39 07:29 PT INR Anion Gap Estim Creat Clear Calc Estimated GFR POC Glucose 130 H 132 H 143 H Random Glucose Calcium Magnesium NT-Pro-B Natriuret Pep 05/25/25 05/25/25 08:39 11:41 PT 28.6 H D INR 2.5 H Anion Gap 16 Estim Creat Clear Calc 39.1 Estimated GFR 51 POC Glucose 187 H Random Glucose 192 H Calcium 10.0 D Magnesium 1.9 NT-Pro-B Natriuret Pep 1151.6 H Assessment and Plan (1) Acute on chronic clinical systolic heart failure: Status: Acute (2) Type 2 diabetes mellitus with hypoglycemia: Status: Acute Plan d2 for 89yo F with DM2, HFrEF, hypothyroidism, HTN, pAF and DVT on warfarin with hx IVC filter placement presenting dyspnea, orthopnea, cough, and leg edema; found to be volume overloaded in acute decompensated heart failure 1.Acute-chronic HFrEF -continue IV Lasix today; switch to p.o. prior to discharge -cardiology consult appreciated 2.Atrial flutter -rate improved off beta dinorah; continue to hold -Coumadin to maintain an INR between 2 -3 3.DM2 -acceptable control off metformin -restart upon discharge -lispro correctional scale -adjust as indicated VTE prophylaxis: warfarin dispo: PT eval In my clinical judgment, the patient requires continued inpatient hospitalization for the following reasons: IV diuresis, Cardiology consultation Quality Stroke Does the patient have a stroke diagnosis?: No VTE Prior VTE?: No VTE Risk Level:: Medical - moderate - high VTE Device Contraindication: N/A - Device Ordered VTE Drug Contraindication: N/A - Med Ordered
[2025-05-25 16:07] LABS: Glucose, Whole Blood 103 mg/dL (60-115)
[2025-05-25] MEDS: Milk of Magnesia 30 ML ORAL.SUSP PO (16:31)
[2025-05-25 21:06] LABS: Glucose, Whole Blood 208 mg/dL (60-115)
--- NOTE | 2025-05-25 22:05 | ECG_ITS ---
Test Reason : CK RHYTHM, FAST HEART RATE Blood Pressure : */* mmHG Vent. Rate : 167 BPM Atrial Rate : * BPM P-R Int : * ms QRS Dur : 70 ms QT Int : 286 ms P-R-T Axes : * -43 -64 degrees QTcB Int : 477 ms Atrial flutter with rapid response Left axis deviation Abnormal ECG When compared with ECG of 24-May-2025 11:37, Increase in rate Referred By: Ann Galan Electronically Signed By: MANE MULLIGAN
[2025-05-26] VITALS (10 sets, daily range): BP systolic 126–152; BP diastolic 55–67; PULSE 55–71; RESP 16–18; TEMP 36.3–36.9; O2SAT 92–98
[2025-05-26] MEDS: 0.9 % Sodium Chloride Flush 3 ML SYRINGE IVFLUSH ×4 (00:31→21:37)
[2025-05-26 07:02] LABS: INTERNATIONAL NORM RATIO 1.9 (0.9-1.1); Prothrombin Time 21.3 SEC (10.9-12.4)
[2025-05-26 07:09] LABS: Glucose, Whole Blood 120 mg/dL (60-115)
[2025-05-26] MEDS: Fluticasone/Vilanterol 200/25 BLST.W.DEV 1 PUFF INHALE (08:26)
[2025-05-26] MEDS: Furosemide 40 MG/4 ML VIAL IVPUSH ×2 (09:16→17:32)
[2025-05-26] MEDS: Insulin Glargine,Hum.rec.anlog 100 UNIT/ML 10 ML VIAL 25 UNIT SUBCUT (09:17)
--- NOTE | 2025-05-26 09:51 | P.PNCA_ITS ---
Subjective Subjective Date of Service: 05/26/25 Principal diagnosis: Decompensated congestive heart failure. 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 She states she is feeling okay. No active chest pains. Shortness of breath is better. No significant leg swelling. Otherwise getting along okay. Review of Systems Review of Systems Yes all other systems are reviewed and are negative Constitutional: Reports as per HPI and Reports no additional constitutional complaints Eyes: Reports as per HPI and Denies no additional eye complaints Denies system reviewed and no additional complaints, except as documented and Reports as per HPI Cardiovascular: Reports as per HPI, Reports no additional cardiovascular complaints, Denies acrocyanosis, Denies cool extremities, Denies chest pain, Denies leg edema, Denies lightheadedness, Denies palpitations and Denies dyspnea Respiratory: Reports as per HPI, Denies no additional respiratory complaints and Denies dyspnea Gastrointestinal: Reports as per HPI and Denies no additional gastrointestinal complaints Genitourinary: Reports as per HPI Musculoskeletal: Reports no additional musculoskeletal complaints and Reports as per HPI Skin/Breast: Reports system reviewed and no additional complaints, except as docu Reports system reviewed and no additional complaints, except as documented and Reports as per HPI Psychiatric: Reports no additional psychiatric complaints and Reports as per HPI Endocrine: Reports no additional endocrine complaints, Reports as per HPI and Denies palpitations Hematologic/Lymphatic: Reports no additional hematologic/lymphatic complaints and Reports as per HPI Allergic/Immunologic: Reports no additional allergic/immunologic complaints and Reports as per HPI Physical Exam Vital Signs: Last Vital Signs Temp 98.5 F 05/26/25 07:21 Pulse 71 05/26/25 08:28 Resp 16 05/26/25 08:28 BP 146/63 H 05/26/25 09:16 Pulse Ox 95 05/26/25 07:21 O2 Del Method Nasal Cannula 05/26/25 07:21 O2 Flow Rate 2 05/26/25 07:21 Oxygen Flow Rate 2 05/23/25 14:07 BMI result Body Mass Index 42.1 Const General: comfortable and no acute distress Orientation/consciousness: patient oriented x3 HEENT Other: Unremarkable Head: Yes normal to inspection Neck Neck: Yes normal visual inspection Chest Chest palpation & inspection: normal inspection of the chest Resp Auscultation: clear to auscultation bilaterally Cardio Palpation: normal PMI Heart sounds: S1 normal heart sound present, S2 normal heart sound present, no gallops, no murmurs and no rubs GI Palpation (GI): Soft to palpation Back/Spine/Pelvis Other: unremarkable Skin General skin exam: no rashes or lesions noted Neuro General: patient oriented x3 Extrem General: Yes normal to inspection Psych Mental Status: mental status grossly normal Objective Labs and Meds 05/23/25 15:32 05/25/25 08:39 Lab results: Laboratory Results - last 24 hr 05/25/25 05/25/25 05/25/25 11:41 16:04 20:58 PT INR POC Glucose 187 H 103 208 H 05/26/25 05/26/25 06:31 07:06 PT 21.3 H D INR 1.9 H POC Glucose 120 H Progress Note: A&P Assessment and plan (1) Acute on chronic combined systolic and diastolic ACC/AHA stage C congestive heart failure: Status: Acute Assessment and Plan: Echocardiogram from 2023-LVEF 40-45%. Severely dilated left atrium. No significant valvular findings. Overall, she seems to be improving. Currently on diuretics and Jardiance. Probably switch to oral diuretics. So far, she is -6 L. (2) Permanent atrial fibrillation: Status: Acute Assessment and Plan: Due to bradycardia, she has been taken off beta-blockers. Continue anticoagulation. Time Spent With Patient Time: Total time managing care of this patient today ____ minutes. Progress Note: Quality Stroke Does the patient have a stroke diagnosis?: No Procedures Date of Service Date of Service: 05/26/25
[2025-05-26 11:22] LABS: Glucose, Whole Blood 200 mg/dL (60-115)
--- NOTE | 2025-05-26 12:29 | HO.PM.IMPN ---
Subjective Subjective Date of Service: 05/26/25 Interval History: Follow up CHF Continues to improve. Still with O2 requirement Review of Systems Denies chest pain Denies shortness of breath Denies nausea vomiting diarrhea Denies fever chills Physical Exam Exam: Exam: Appearing in no acute distress lung sounds are clear to auscultation heart regular rate rhythm, clear S1, S2 positive bowel sounds, abdomen is soft, nontender neuro patient is alert x3, no focal deficits Vital Signs: Vital Signs: Last Vital Signs Temp 98.2 F 05/26/25 11:29 Pulse 55 05/26/25 11:29 Resp 16 05/26/25 11:29 BP 152/67 H 05/26/25 11:29 Pulse Ox 92 05/26/25 11:29 O2 Del Method Room Air 05/26/25 11:29 O2 Flow Rate 2 05/26/25 07:21 Oxygen Flow Rate 2 05/23/25 14:07 BMI result Body Mass Index 42.1 Objective Data Active Medications Acetaminophen (Acetaminophen 325 Mg Tablet) 650 mg PO Q6H PRN PRN Reason: Pain, Mild 1-3,fever,headache Last Admin: 05/26/25 09:16 Dose: 650 mg Documented By: ROSELYN Albuterol Sulfate (Albuterol Sulfate 90 Mcg 8 Gm Inhaler) 2 puff INHALE Q6H PRN PRN Reason: Wheezing Atorvastatin Calcium (Atorvastatin Calcium 20 Mg Tablet) 20 mg PO BEDTIME [facility] Last Admin: 05/25/25 21:26 Dose: 20 mg Documented By: TUMASY Calcium Carbonate (Calcium Carbonate 750 Mg Tab.Chew) 750 mg PO Q4H PRN PRN Reason: Heartburn Dextrose (Dextrose 50 % 25 Gm/50 Ml Syringe) 25 gm IVPUSH Q15M PRN; Protocol PRN Reason: per Hypoglycemia Standing Ord. Docusate Sodium (Docusate Sodium 100 Mg Capsule) 100 mg PO BID [facility] Last Admin: 05/26/25 09:17 Dose: 100 mg Documented By: ROSELYN Empagliflozin (Empagliflozin 10 Mg Tablet) 10 mg PO DAILY [facility] Last Admin: 05/26/25 09:17 Dose: 10 mg Documented By: ROSELYN Fluticasone Propionate (Fluticasone Propionate Nasal 16 Gm [place]) 2 spray NOSTRIL-B DAILY [facility] Last Admin: 05/26/25 09:19 Dose: 2 spray Documented By: ROSELYN Fluticasone/Vilanterol (Fluticasone/Vilanterol 200/25 Blst.W.Dev) 1 puff INHALE RDAILY [facility] Last Admin: 05/26/25 08:26 Dose: 1 puff Documented By: JANICE Furosemide (Furosemide 40 Mg/4 Ml Vial) 40 mg IVPUSH BID@0900,1800 [facility]; Protocol Last Admin: 05/26/25 09:16 Dose: 40 mg Documented By: ROSELYN Glucose (Glucose Gel 15 Gm Gel..Gram.) 15 gm PO Q15M PRN; Protocol PRN Reason: per Hypoglycemia Standing Ord. Insulin Glargine (Insulin Glargine,Hum.Rec.Anlog 100 Unit/Ml 10 Ml Vial) 25 unit SUBCUT DAILY [facility] Last Admin: 05/26/25 09:17 Dose: 25 unit Documented By: ROSELYN Insulin Human Lispro (Insulin Lispro 100 Unit/Ml 3 Ml Vial) 0 unit SUBCUT QIDACHS [facility]; Protocol Last Admin: 05/26/25 11:46 Dose: 2 unit Documented By: ROSELYN Levothyroxine Sodium (Levothyroxine Sodium 100 Mcg Tablet) 100 mcg PO DAILY@0600 [facility] Last Admin: 05/26/25 06:13 Dose: 100 mcg Documented By: LAFLAMCorrine Loratadine (Loratadine 10 Mg Tablet) 5 mg PO DAILY [facility] Last Admin: 05/26/25 09:17 Dose: 5 mg Documented By: ROSELYN Magnesium Hydroxide (Milk Of Magnesia 30 Ml Oral.Susp) 30 ml PO DAILY PRN PRN Reason: Constipation Last Admin: 05/25/25 16:31 Dose: 30 ml Documented By: PHANLYM Magnesium Oxide (Magnesium Oxide 400 Mg Tablet) 400 mg PO DAILY [facility] Last Admin: 05/26/25 09:17 Dose: 400 mg Documented By: ROSELYN Melatonin (Melatonin 3 Mg Tablet) 6 mg PO BEDTIME PRN PRN Reason: Insomnia Metoprolol Tartrate (Metoprolol Tartrate 12.5 Mg Halftab) 12.5 mg PO BID [facility]; Protocol On Hold: 05/24/25 11:16 Last Admin: 05/24/25 11:24 Dose: Not Given Documented By: MARCO ANTONIO Non-Admin Reason: Physician Held Med Multivitamins/Vitamin C (Multivitamin Tablet) 1 tab PO DAILY [facility] Last Admin: 05/26/25 09:18 Dose: 1 tab Documented By: ROSELYN Omeprazole (Omeprazole 20 Mg Capsule.Dr) 20 mg PO BID@0630,1630 [facility] Last Admin: 05/26/25 06:13 Dose: 20 mg Documented By: LAFLAMC Ondansetron HCl (Ondansetron Hcl 4 Mg/2 Ml Vial) 4 mg IVPUSH Q8H PRN PRN Reason: Nausea and Vomiting Polyethylene Glycol (Polyethylene Glycol 3350 17 Gm Powd.Pack) 17 gm PO DAILY [facility] Last Admin: 05/26/25 09:18 Dose: 17 gm Documented By: ROSELYN Sertraline HCl (Sertraline Hcl 50 Mg Tablet) 50 mg PO DAILY [facility] Last Admin: 05/26/25 09:17 Dose: 50 mg Documented By: ROSELYN Sodium Chloride (0.9 % Sodium Chloride Flush 3 Ml Syringe) 3 ml IVFLUSH QSHIFT [facility] Last Admin: 05/26/25 09:18 Dose: 3 ml Documented By: ROSELYN Tolterodine Tartrate (Tolterodine Tartrate La 4 Mg Cap.Er.24h) 4 mg PO DAILY [facility] Last Admin: 05/26/25 09:17 Dose: 4 mg Documented By: ROSELYN Vitamin D (Cholecalciferol (Vitamin D3) 25 Mcg Tablet) 50 mcg PO DAILY [facility] Last Admin: 05/26/25 09:17 Dose: 50 mcg Documented By: ROSELYN Warfarin Sodium (Warfarin Sodium 4 Mg Tablet) 4 mg PO DAILY@1800 [facility] Last Admin: 05/25/25 17:56 Dose: 4 mg Documented By: PHANLYM Labs 05/23/25 15:32 05/25/25 08:39 Labs: Laboratory Results - last 24 hr 05/25/25 05/25/25 05/26/25 16:04 20:58 06:31 PT 21.3 H D INR 1.9 H POC Glucose 103 208 H 05/26/25 05/26/25 07:06 11:18 PT INR POC Glucose 120 H 200 H Assessment and Plan (1) Acute on chronic clinical systolic heart failure: Status: Acute (2) Type 2 diabetes mellitus with hypoglycemia: Status: Acute Plan 89yo F with DM2, HFrEF, hypothyroidism, HTN, pAF and DVT on warfarin with hx IVC filter placement presenting dyspnea, orthopnea, cough, and leg edema; found to be volume overloaded in acute decompensated heart failure Acute-chronic HFrEF Echocardiogram EF 50-55% with restrictive filling defect on 1 liter [place] cardiology consult>IV Lasix, transition to po today Strict intake and output Daily weights Paroxysmal Atrial flutter rate improved off beta dinorah; continue to hold Coumadin to maintain an INR between 2 -3 DM2 acceptable control off metformin restart upon discharge lispro correctional scale adjust as indicated VTE prophylaxis: warfarin dispo: PT eval In my clinical judgment, the patient requires continued inpatient hospitalization for the following reasons: IV diuresis, Cardiology consultation Quality Stroke Does the patient have a stroke diagnosis?: No VTE Prior VTE?: No VTE Risk Level:: Medical - moderate - high VTE Device Contraindication: N/A - Device Ordered VTE Drug Contraindication: N/A - Med Ordered
[2025-05-26 16:23] LABS: Glucose, Whole Blood 157 mg/dL (60-115)
--- NOTE | 2025-05-26 16:26 | MHC.CM.PN ---
EMR REVIEWED, PT W/ACUTE/CHRONIC CHF, P.T. RECOMMENDING STR, REF PLACED, CM AWAITING BED OFFER AND WILL CONT TO FOLLOW DC NEEDS.
[2025-05-26 20:10] LABS: Glucose, Whole Blood 133 mg/dL (60-115)
[2025-05-26] MEDS: Milk of Magnesia 30 ML ORAL.SUSP PO (22:13)
[2025-05-27 03:17] VITALS: BP 159/68; PULSE 75; RESP 17; TEMP 36.6; O2SAT 86
[2025-05-27 07:03] LABS: Glucose, Whole Blood 155 mg/dL (60-115)
[2025-05-27 07:07] LABS: INTERNATIONAL NORM RATIO 1.9 (0.9-1.1); Prothrombin Time 21.9 SEC (10.9-12.4)
[2025-05-27 07:11] VITALS: BP 138/61; PULSE 62; RESP 20; TEMP 37.1; O2SAT 93
[2025-05-27] MEDS: Fluticasone/Vilanterol 200/25 BLST.W.DEV 1 PUFF INHALE (07:36)
[2025-05-27 07:37] VITALS: PULSE 62; RESP 20; O2SAT 97
[2025-05-27 09:40] VITALS: BP 138/61
[2025-05-27] MEDS: 0.9 % Sodium Chloride Flush 3 ML SYRINGE IVFLUSH (09:41)
[2025-05-27] MEDS: Insulin Glargine,Hum.rec.anlog 100 UNIT/ML 10 ML VIAL 25 UNIT SUBCUT (09:41)
--- NOTE | 2025-05-27 09:45 | MHC.CM.PN ---
EMR REVIEWED, [facility] FOLLOWING, CM ATTEMPTED TO MEET W/PT VIA INSPECTOR COLD WORKING EARLIER THIS AM HOWEVER PT RECEIVING ADL'S, CM TO REVISIT W/MANUFACTURING ENGINEERING DIRECTOR.
[2025-05-27 11:09] LABS: Glucose, Whole Blood 173 mg/dL (60-115)
[2025-05-27 11:20] VITALS: BP 141/61; PULSE 57; RESP 16; TEMP 36.6; O2SAT 96
--- NOTE | 2025-05-27 12:05 | MHC.CM.PN ---
IMM 05/27/25, CM MET W/PT VIA DOCUMENTATION MANAGER TO DISCUSS DISPO P.T. RECOMMENDS HOME SERVICES, PT DOES NOT WANT STR AND WOULD LIKE CM TO CONTACT PT'S SON/HCP BRIAN, BRIAN DOES NOT WANT PT TO GO TO STR AND WOULD LIKE PT HOME W/SERIVCES, PT ACTIVE W/INTERNTION[employer] HEALTH [employer]UTIONS AND CM AWAITING CALL BACK/MESSAGE TO DETERMINE IF THEY CAN ADD HOME PT, MD UPDATED AND FAMILY WILL PROVIDE TRANSPORT AFTER 2PM.
--- NOTE | 2025-05-27 12:54 | PM.DS ---
DS: Providers Provider Date of Service: 05/27/25 Date of admission: 05/23/25 17:48 Date of discharge: 05/27/25 Primary care physician: Valeri Lerner DO Consults: 05/23/25 17:07 Consult to Cardiology Routine Consulting Provider: [facility] Reason for consultation: hfref, recent pos stress test, adhf Attending physician on discharge: Sebastian Deluna Discharging clinician: Sebastian Deluna DS: Diagnosis Discharge Diagnosis (1) Acute on chronic clinical systolic heart failure: Status: Acute (2) Type 2 diabetes mellitus with hypoglycemia: Status: Acute (3) Atrial fibrillation: Status: Acute DS: Summary Hospital Course Hospital Course: 89 y/o old female with past medical history significant for T2 dm, HFrEF, hypothyroidism, HTN, paroxysmal atrial fibrillation and DVT on warfarin with history of IVC filter placement who presented to hospital for worsening shortness of breath, lower extremity edema. Found to be in volume overload with acute decompensated heart failure. Patient treated with IV diuretics, later transitioned to p.o. Patients metoprolol was placed on hold in the setting of bradycardia. Patient this time states that she is feeling well, denies any shortness of breath. Patient assessed by PT/OT, suggested on short-term rehab, however per family wishes for patient to go home as they have nursing at home to assist with patient care. chronic HFrEF Echocardiogram EF 50-55% with restrictive filling defect transitioned to PO lasix yesterday, continue 60mg qd Will initiate jardiance 10mg qd f/u w/ cardio in outpatient setting low sodium diet Paroxysmal Atrial flutter rate improved off beta dinorah; continue to hold, restart as outpatient Coumadin to maintain an INR between 2 -3 DM2 continue w/ metformin, rest of DM meds All new and continued medications were discussed in depth with the patient amd son, and new prescriptions were sent to patient's preferred pharmacy directly. All side effects were discussed. Follow-up instructions were given. Patient voiced understanding. Patient was given the opportunity ask questions and express concerns, all of which were answered to their satisfaction. Patient was instructed to follow-up with her PCP within 3 to 10 days of discharge and head to the nearest emergency room or call 911 if symptoms worsen or new symptoms develop. This is a summary of the patient's stay; for more complete details please see chart. More than 35 minutes was spent with patient regarding workup, diagnosis and follow-up. Status at Discharge Overall status at discharge: patient is progressing back to baseline Time Attestation Discharge Coordination Time (in mins): greater than 40 minutes Quality: Safe Use of Opioids Does Pt have an Active Cancer Diagnosis on the Problem List?: No Quality: Stroke Does the patient have a stroke diagnosis?: No Physical Exam Exam: Exam: General: AxOx3, No acute distress Head: AT/NC ENT: Moist mucous membranes Neck: supple CVS; RRR, S1 S2 normal Lungs: Clear bilateral breath sounds, no wheezes or crackles Abd: Soft non tender, non distended Ext: No edema and no calf tenderness MSK: moving all 4 limbs Skin: No cyanosis or edema ?[] Psych: Cooperative with exam Neurology: no focal deficit Vital Signs: Vital Signs: Last Vital Signs Temp 97.8 F 05/27/25 11:20 Pulse 57 05/27/25 11:20 Resp 16 05/27/25 11:20 BP 141/61 H 05/27/25 11:20 Pulse Ox 96 05/27/25 11:20 O2 Del Method Room Air 05/27/25 11:20 O2 Flow Rate 1 05/27/25 11:20 Oxygen Flow Rate 2 05/23/25 14:07 BMI result Body Mass Index 42.1 DS: Data Data Completed and Pending Labs on day of discharge: Laboratory Results - last 24 hr 05/26/25 05/26/25 05/27/25 16:20 19:53 06:20 Hold Purple Top SEE NOTE PT 21.9 H INR 1.9 H POC Glucose 157 H 133 H 05/27/25 05/27/25 06:59 11:05 Hold Purple Top PT INR POC Glucose 155 H 173 H Discharge Plan Discharge Anticipated Discharge Date/Time: 05/27/25 12:41 Patient Disposition: Home Health Service Discharge Diagnosis: HF exacerbation Referrals: [facility] [Outside] - 1 Day Referral Note: [facility] FOR MED MANAGEMENT AND NEW HOME PHYSICAL THERAPY. Valeri Lerner DO [Primary Care Provider, Internal Medicine] - 1 Week Jon Blancas MD [Physician, Cardiology] - 1 Week Problems: Acute on chronic combined systolic and diastolic ACC/AHA stage C congestive heart failure Discharge Medications: New furosemide 20 mg Tablet 60 mg PO DAILY Qty: 60 0RF Protocol: Hold for SBP< HOLD for SBP < : 90 Jardiance 10 mg Tablet 10 mg PO DAILY Qty: 30 0RF Continued acetaminophen 650 mg Tablet Extended Release 650 mg PO Q8H PRN (Reason: Pain/Fever) ciclopirox 0.77 % cream 1 appl topical BID PRN (Reason: fungal infection) Rx Instructions: apply to feet and toes solifenacin 10 mg tablet 10 mg PO DAILY Ozempic 0.25 mg or 0.5 mg (2 mg/3 mL) pen injector 0.5 mg subcut DURON insulin glargine [Lantus Solostar U-100 Insulin] 100 unit/mL (3 mL) insulin pen 26 unit subcut DAILY warfarin 4 mg tablet 4 mg PO DAILY@1800 Rx Instructions: TAKE 1 TO 2 TABLETS DAILY DIRECTED PER COU[facility]ADIN CLINIC polyethylene glycol 3350 17 gram Powder In Packet 17 g PO DAILY Qty: 7 0RF fluticasone propion-salmeterol [Wixela Inhub] 500-50 mcg/dose blister with device 1 ea INHALATION BID metformin 500 mg tablet extended release 24 hr 500 mg PO BIDWM Tab-A-Judith Multivitamin w-iron 15 mg iron- 400 mcg tablet 1 tab PO DAILY magnesium oxide 400 mg (241.3 mg magnesium) tablet 400 mg PO DAILY diclofenac sodium 1 % gel 4 g topical QID PRN (Reason: Pain) cetirizine 10 mg tablet 5 mg PO DAILY albuterol sulfate 90 mcg/actuation HFA aerosol inhaler 2 puff INHALATION Q6H PRN (Reason: wheezing) (DME) pen needle, diabetic 32 gauge x 5/32 needle See Rx Instructions .ROUTE .MEDSUPPLY Qty: 50 Rx Instructions: As directed cholecalciferol (vitamin D3) 50 mcg (2,000 unit) tablet 50 mcg PO DAILY sertraline 50 mg tablet 50 mg PO DAILY fluticasone propionate 50 mcg/actuation spray,suspension 2 spray intranasal DAILY omeprazole 20 mg capsule,delayed release(DR/EC) 20 mg PO BID@0630,1630 levothyroxine 100 mcg tablet 100 mcg PO DAILY@0600 (DME) lancets Misc See Rx Instructions .ROUTE .MEDSUPPLY Qty: 100 Rx Instructions: As directed (DME) blood sugar diagnostic Strip See Rx Instructions Not Applicable BID Qty: 10 Rx Instructions: As directed atorvastatin 20 mg tablet 20 mg PO BEDTIME (DME) [facility] See Rx Instructions .ROUTE DIRECTED Qty: 1 Rx Instructions: As directed docusate sodium 100 mg capsule 100 mg PO BID Held metoprolol tartrate 25 mg tablet 12.5 mg PO BID Hold Instructions: Resume on 06/03/25. Discontinued furosemide 20 mg tablet 60 mg PO DAILY Discharge Orders: Discharge Order (Routine); Ordered 05/27/25 Ordered By: Sebastian Deluna Activity on Discharge: As tolerated Stand Alone Forms: Patient Portal Discharge page Print Language: English Care Plan Goals: follow up w/ PCP, cardiology, restart metoprolol in outpatient setting, continue w/ Lasix and start Jardiance Health Concerns: Heart failure exacerbation Plan of Treatment: follow up w/ PCP, cardiology, restart metoprolol in outpatient setting, continue w/ Lasix and start Jardiance Assessment: 89 y/o old female with past medical history significant for T2 dm, HFrEF, hypothyroidism, HTN, paroxysmal atrial fibrillation and DVT on warfarin with history of IVC filter placement who presented to hospital for worsening shortness of breath, lower extremity edema. Found to be in volume overload with acute decompensated heart failure. Patient treated with IV diuretics, later transitioned to p.o. Patients metoprolol was placed on hold in the setting of bradycardia. Patient Instructions: Heart Failure (DC), Low-Sodium Diet (DC)
== END 2025-05-27 13:48 | disposition home health service (06) | DRG 291 ==
LOC: HO.ED 16:52 → HO.EDOVER 17:56 → HO.IMC 19:14
PROVIDERS: Emergency Medicine; Hospitalist; Nurse Practitioner Acute Care; Admitting Provider Family Medicine; Emergency Provider Emergency Medicine; PCP Family Medicine; Visit Provider Student in an Organized Health Care Education/Training Program
DX: I11.0 Hypertensive heart disease with heart failure (principal); I50.23 Acute on chronic systolic (congestive) heart failure; I48.92 Unspecified atrial flutter; I48.19 Other persistent atrial fibrillation; I25.10 Atherosclerotic heart disease of native coronary artery without angina pectoris; E11.9 Type 2 diabetes mellitus without complications; F39 Unspecified mood [affective] disorder; Z20.822 Contact with and (suspected) exposure to COVID-19; Z99.81 Dependence on supplemental oxygen; Z79.01 Long term (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; Z79.51 Long term (current) use of inhaled steroids; Z79.84 Long term (current) use of oral hypoglycemic drugs; Z79.890 Hormone replacement therapy; Z79.899 Other long term (current) drug therapy
CPT/HCPCS: 36415; 71045; 80048; 80076; 81003; 82803; 82947; 83690; 83735; 83880; 84484; 85025; 85610; 86140; 87502; 87635; 93005; 93306; 94640; 97162; 97530; 99285; J1938; Q9957

== ENCOUNTER → 2025-05-23 14:09 | Outpatient (BNV) | payer OTHER, MEDICAID, SELFPAY | PROVIDERS: Admitting Provider Family Medicine; Emergency Provider Emergency Medicine; Visit Provider Internal Medicine Cardiovascular Disease | DX: I48.91 Unspecified atrial fibrillation (principal); I44.39 Other atrioventricular block | CPT/HCPCS: 93010 ==

== ENCOUNTER → 2025-05-23 14:09 | Outpatient (BNV) | payer OTHER, MEDICAID, SELFPAY | PROVIDERS: Emergency Provider Emergency Medicine; Visit Provider Radiology Diagnostic Ultrasound | DX: R06.02 Shortness of breath (principal) | CPT/HCPCS: 71045 ==

== ENCOUNTER 2025-05-23 17:48 | Outpatient (BNV) | payer OTHER, MEDICAID, SELFPAY | END 2025-05-24 12:41 | PROVIDERS: Admitting Provider Family Medicine; Emergency Provider Emergency Medicine; Visit Provider Radiology Diagnostic Radiology | DX: J18.1 Lobar pneumonia, unspecified organism (principal) | CPT/HCPCS: 71045 ==

== ENCOUNTER 2025-05-23 17:48 | Outpatient (BNV) | payer OTHER, MEDICAID, SELFPAY | END 2025-05-24 11:37 | PROVIDERS: Admitting Provider Family Medicine; Emergency Provider Emergency Medicine; Visit Provider Internal Medicine Cardiovascular Disease | DX: I51.7 Cardiomegaly (principal); I48.92 Unspecified atrial flutter; I51.89 Other ill-defined heart diseases; I44.0 Atrioventricular block, first degree | CPT/HCPCS: 93010; 93306 ==

== ENCOUNTER 2025-05-23 17:48 | Outpatient (BNV) | payer OTHER, MEDICAID, SELFPAY | END 2025-05-25 22:05 | PROVIDERS: Admitting Provider Family Medicine; Emergency Provider Emergency Medicine; PCP Family Medicine; Visit Provider Internal Medicine | DX: I48.92 Unspecified atrial flutter (principal) | CPT/HCPCS: 93010 ==

== ENCOUNTER → 2025-05-23 17:48 | Outpatient (BNV) | payer OTHER, MEDICAID, SELFPAY | PROVIDERS: Admitting Provider Family Medicine; Emergency Provider Emergency Medicine; Visit Provider Internal Medicine Cardiovascular Disease | DX: I50.43 Acute on chronic combined systolic (congestive) and diastolic (congestive) heart failure (principal); I48.21 Permanent atrial fibrillation | CPT/HCPCS: 99233 ==

== ENCOUNTER → 2025-05-23 17:48 | Outpatient (BNV) | payer OTHER, MEDICAID, SELFPAY | PROVIDERS: Admitting Provider Family Medicine; Emergency Provider Emergency Medicine; Visit Provider Family Medicine | DX: I50.23 Acute on chronic systolic (congestive) heart failure (principal); E11.649 Type 2 diabetes mellitus with hypoglycemia without coma; Z79.4 Long term (current) use of insulin | CPT/HCPCS: 99232; 99233 ==

== ENCOUNTER 2025-05-27 17:19 | Emergency (ER) | payer OTHER, SELFPAY ==
--- OUTSIDE RECORDS SUMMARY | 2024-11-22 09:30 | XMS_ITS ---
Author Organization [facility] Address [address] [place] [address] Care Team Providers Care Substation Operator Helper Generation Name Role Phone Valeri Lerner Primary Care Provider UnavailKeenan Dalton Unavailable [phone] Archuleta Encounters Encounter Location Date Provider Diagnosis [address] [address] 11/22/2024 Keenan yDer Plan Of Treatment Next Appt Details Provider Name:Keenan Dyer , 08/15/2025 12:45:00 PM, [address] [place] [address], [phone], Progress Notes * Anna WOODCoraB:[birth year] (89 yo F)Acc No.[id number]:11/22/2024 Progress Note Patient: Nikky SINGH Provider: Gabbi Dyer DPM :1935 A ge:89 Y S ex:Female Date:11/22/2024 Address:[address] [place] [phone] Pcp:Valeri Lerner Subjective: * Chief Complaints: * [...] DPM Date: 0 11/22/2024 Generated for Tray Mckeon/Gunjan on: 1 08:22 PM EDT
--- OUTSIDE RECORDS SUMMARY | 2024-12-13 08:45 | XMS_ITS ---
Author Organization [facility] Address [address] [place] [address] Care Team Providers Care Drill Operator Name Role Phone Valeri Lerner Primary Care Provider UnavailKeenan Dalton Unavailable [phone] Archuleta Encounters Encounter Location Date Provider Diagnosis [address] [address] 12/13/2024 Keenan Dyer Plan Of Treatment Next Appt Details Provider Name:Keenan Dyer , 08/15/2025 12:45:00 PM, [address] [place] [address], [phone], Progress Notes * Anna WOODCoraB:[birth year] (89 yo F)Acc No.[id number]:12/13/2024 Progress Note Patient: Nikky SINGH Provider: Gabbi Dyer DPM :1935 A ge:89 Y S ex:Female Date:12/13/2024 Address:[address] [place] [phone] Pcp:Valeri Lerner Subjective: * Chief Complaints: * [...] 12/13/2024 Generated for Tray López on: 1 08:22 PM EDT
[2025-05-27] VITALS (7 sets, daily range): BP systolic 112–172; BP diastolic 00–66; PULSE 61–73; RESP 14–20; TEMP 37.1–38.1; O2SAT 92–97; BMI 38.1
--- NOTE | ~2025-05-27 | XR_ITS ---
CLINICAL HISTORY: cough fever 1 view chest x-ray Comparison: CR - XR CHEST 1V - 05/24/25 13:10 EDT Findings: Heart size is enlarged and stable. 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 Stable interstitial changes could be chronic. No consolidation, significant pleural effusion or pneumothorax. No acute fracture. Stable changes of bilateral shoulders. IMPRESSION: 1. No acute findings. Stable findings as described. This document has been electronically signed by: Rafaela Vanessa MD on 05/28/2025 01:13:16
--- NOTE | 2025-05-27 18:01 | MHC.EDTECH ---
purewick placed on pt, RN made aware
[2025-05-27 18:16] LABS: MANUAL DIFF FLAG NO
[2025-05-27 18:34] LABS: Alanine Aminotransferase 22 U/L (0-31); Albumin Level 4.0 g/dL (3.5-5.0); Alkaline Phosphatase 122 U/L (39-117); Anion Gap 12 (12-20); Aspartate Amino Transferase 28 U/L (5-31); Blood Urea Nitrogen 38 mg/dL (9-16); Calcium 9.9 mg/dL (8.4-10.2); Carbon Dioxide 34 mmol/L (22-29); Chloride 98 mmol/L (96-108); Creatinine Clr Calc Pharmacy 32.9; Estimated Glomerular Filt Rate 41; IDNOW Serial# 55D5AD1C; Influenza B2 Negative (Negative); Potassium 4.5 mmol/L (3.3-5.1); Sodium 139 mmol/L (135-145); Total Protein 7.9 g/dL (6.5-8.0)
[2025-05-27 18:35] LABS: COVID-19 Test Negative (Negative); IDNOW Serial# 58CA691E
[2025-05-27 18:47] LABS: Hematocrit 38.1 % (37.0-47.0); Hemoglobin 12.2 g/dl (12.0-16.0); Imm Gran Abs Auto 0.04 X10*3/uL (0.00-0.03); Imm Gran Pct Auto 0.4 % (0.0-0.4); Lymphocytes Absolute Auto 1.3 X10*3/uL (1.2-4.9); Mean Corpuscular HGB Conc 32.0 g/dl (31.0-35.0); Mean Corpuscular Hemoglobin 30.9 pg (27.0-33.0); Mean Corpuscular Volume 96.5 fL (80.0-98.0); NRBC Abs Auto 0.000 X10*3/uL (0.0-0.012); NRBC Pct Auto 0.0 /100WBC (0.0-0.2); Platelet Count 179 X10*3/uL (160-400); Red Blood Count 3.95 X10*6/uL (4.20-5.50); White Blood Count 10.8 X10*3/uL (4.8-10.8)
[2025-05-27 18:59] LABS: Appearance Urine Clear; Glucose Urine UA >=1000 mg/dL (Negative); PH 7.0 (5.0-9.0); Specific Gravity - Urine 1.020 (1.005-1.025); UMIC TRIGGER UACC YES
[2025-05-27 19:48] LABS: UACC Culture Trigger YES
--- OUTSIDE RECORDS SUMMARY | 2025-05-27 20:22 | XMS_ITS | Encounter Summary ---
Author Organization [employer] Address [address] [place] [address] Care Team Providers Care Repair Department Supervisor Name Role Phone Valeri Lerner DO Primary Care Provider + [phone] Encounter Details Date Type Department Care Team ([facility] st Contact Info) Description 12/24/2024 Telephone [facility] [address] [place], [place] [phone] Valeri Lerner DO [address] [place], [place] [phone] Social History Tobacco Use Types Packs/Day Years [...] Care Team (Late st Contact Info) Description 06/06/2025 11:30 AM EST Office Visit [facility] [address] [place], [place] [phone] TodAi raman, OD [address] [place], [place] [phone] documented as of this encounter Goals Goal [...] Component 7.6( 5 1:53 PM EDT) No Puia, Batsheva, PharmD documented as of this encounter Visit Diagnoses Not on filedocumented in this encounter Additional Health Concerns Assessment Noted Time PHQ-9 Depression Total Score: 0 07/15/20 11:32 AM EST documented as of this encounter Care Teams Repair Department Supervisor Relationship Specialty Start Date End Date Valeri Lerner DO [address] [place] [address] PCP - General Family Medicine 07/13/12 [employer] 12/08/23 documented as of this encounter
--- OUTSIDE RECORDS SUMMARY | 2025-05-27 20:22 | XMS_ITS | Encounter Summary ---
Author Organization [employer] Address [address] [place] [address] Care Team Providers Care Sr. Director Name Role Phone Valeri Lerner DO Primary Care Provider Batsheva Gomez PharmD Unavailable Reason for Visit * Reason Onset Date Comments Nurse Triage 01/18/2024 Encounter Details Date Type Department Care Team (Late st Contact Info) Description 01/18/2024 Telephone [facility] [address] [place], [place] [phone] Valeri Lerner DO [address] [place], [place] [phone] Nurse Triage Social History Tobacco Use Types [...] the past 12 months, has t he [employer] gas, oil or water company threatened to [...] Artemio with [facility] on any medication changes [phone]. Daughter made aware of home care recommendations, [...] accepted this outcome Please contact pt at [phone] documented in this encounter Plan of Treatment Upcoming Encounters Date Type Department Care Team (Late st Contact Info) Description 06/06/2025 11:30 AM EST Office Visit [facility] [address] [place] [id number] Ai Baron, OD [address] [place] [address] documented as of this encounter Visit Diagnoses Not on filedocumented in this encounter Additional Health Concerns Assessment Noted Time PHQ-9 Depression Total Score: 2 08/23/19 24 11:01 AM EST documented as of this encounter Care Teams Sr. Director Relationship Specialty Start Date End Date Valeri Lerner DO [address] [place] [address] PCP - General Family Medicine 07/13/12 Batsheva Gomez PharmD [address] [place] [id number] Pharmacist Internal Medicine 03/07/24 12/19/24 [employer] 12/08/23 documented as of this encounter
--- OUTSIDE RECORDS SUMMARY | 2025-05-27 20:22 | XMS_ITS | Clinical Summary ---
Author Organization [employer] Address [address] [place] [address] [address] [place] [address] Care Team Providers Care Mainframe Systems Administrator Name Role Phone Valeri Lerner DO Primary Care Provider [phone] Allergies Active Allergy Reactions Criticality Noted Date Comments Acetaminophen 02/18/2013 Other reaction(s): Stomach Pain Aspirin GI intolerance Low 02/18/2013 Other reaction(s): Stomach Pain Chlorpheniramine 12/06/2016 Dextromethorphan 12/06/2016 Dextromethorphan-Guaifenesin Hives High 025 Flavoring Agent Unknown 11/22/2024 Ibuprofen Unknown 10/17/2023 Oxycodone Palpitations Low 02/18/2013 Other reaction(s): Stomach Pain Oxycodone-Acetaminophen Unknown 11/22/2024 Penicillin G Unknown 11/22/2024 Phenylephrine 12/06/2016 Pseudoephedrine 12/06/2016 Shellfish Protein-Containing Drug Products Hives High 10/17/2023 Medications Lancets (onetouch ultrasoft) lancets TEST BLOOD SUGAR TWICE DAILY 100 each 11 023 Active Continuous Blood Gluc Senior Commissary Agent (Press PlayStyle Jason 2 [place]) device Scan sensor every 8 hours 1 [...] hyperglycemia, with long-term current use of insulin ([facility]) TAKE 1 TABLET BY MOUTH TWICE DAILY [...] DAILY DIRECTED Active white petrolatum (Vaseline) gelIndications:Ac daren cystitis [...] hyperglycemia, with long-term current use of insulin ([facility]) Inject 26 Units under the skin in the morning. 15 mL Active Semaglutide,0.25 or 0.5MG/DOS, (Ozempic, 0.25 or 0.5 MG/DOSE,) 2 MG/3ML solution pen-injectorIndic ations:Type 2 diabetes mellitus with hyperglycemia, with long-term current use of insulin (HCC) Inject 0.5 mg under the skin 1 (one) time per week. 3 mL 2025 Active metoprolol tartrate (Lopressor) 25 MG tablet TAKE 1/2 TABLET BY MOUTH TWICE DAILY IN THE MORNING AND EVENING 90 tablet 1 Active Pentips Generic Pen [place] 32G X 4 MM misc USE DIRECTED [...] hours if needed for wheezing. 18 g 2025 Active albuterol (2.5 MG/3ML) 0.083% nebulizer solutionIndicatio ns:Moderate persistent asthma without complication Take 3 mL (2.5 mg) by nebulization every 6 (six) hours if needed for wheezing. 75 mL 2025 Active warfarin (Coumadin) 4 MG tabletIndications :Paroxysmal atrial fibrillation (CMS/HCC) (HCC) TAKE 1 TO 2 TABLETS BY MOUTH EVERY DAY DIRECTED 60 tablet 2 Active Multiple Vitamins-Iron (Tab-A-Judith/Iron) tablet TAKE 1 TABLET BY MOUTH EVERY MORNING WITH FOOD 90 tablet 3 025 Active cholecalciferol VITAMIN D (Vitamin D-3) 50 MCG (2000 UT) tablet TAKE 1 TABLET BY MOUTH EVERY MORNING 90 tablet 1 09/09/2 025 Active solifenacin (VESIcare) 10 MG tablet TAKE 1 TABLET BY MOUTH EVERY MORNING DO NOT BREAK, CRUSH, DISSOLVE OR CHEW 30 tablet 11 025 Active magnesium oxide (Mag-Ox) 400 MG tabletIndications :Hypomagnesemia TAKE 1 TABLET BY MOUTH EVERY DAY 30 tablet 1 025 Active magnesium oxide (Mag-Ox) 400 MG tabletIndications :Hypomagnesemia Take 1 tablet (400 mg) by mouth Once per day. 30 tablet 1 025 2024 Discontinued Active Problems Problem Noted Date Diagnosed Date Type 2 diabetes mellitus with peripheral angiopa thy 11/22/2024 Physical deconditioning 11/22/2024 Opacity of lung on imaging study 11/22/2024 Influenza A 11/22/2024 Hypomagnesemia 11/22/2024 Hospital discharge follow-up 11/22/2024 Elevated troponin 11/22/2024 Aspiration pneumonia (CMS/HCC) 11/22/2024 Acquired hammer toe of right foot 11/22/2024 Acute respiratory failure with hypoxia (CMS/HCC) 11/22/2024 Assessment & Plan (11/25/2024 8:18 AM EDT): [...] 11/21/2023 Chronic anticoagulation 11/21/2023 Deep vein thrombosis (CMS/HCC) 11/21/2023 Heart block 11/21/2023 Asthma 11/21/2023 Menopause [...] benefit from more structured support, daughter working computer lab aide, she and brother are primary care givers, nephew was assisting with medications and home care but no longer working as booker, 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 Campground Manager list provided for daughter, Referral to [...] Osteoarthritis 05/21/2015 Osteopenia 05/21/2015 Paroxysmal atrial fibrillation (CMS/HCC) 015 Overview (01/26/2024): [place] Bradshaw[place] [facility] [place] Assessment & Plan [...] previous one of 9 on [place] [facility] No change in meds. [...] Acute on chronic respiratory failure with hypoxemia ([facility]) 11/21/2023 12/26/2023 Contusion of right shoulder 11/21/2023 12/26/2023 Current use of anticoagulant therapy 11/21/2023 12/26/2023 Assessment & Plan (11/25/2023 1:23 PM EDT): No visible eccymosis, daughter and pt report compliance with oral medications Fall 11/21/2023 12/26/2023 Forehead contusion 11/21/2023 Gastroenteritis 11/21/2023 12/26/2023 Head injury 11/21/2023 12/26/2023 Hypoxia 11/21/2023 12/26/2023 Obesity due to excess calories 11/21/2023 12/26/2023 Sepsis ([facility]) 11/21/2023 12/26/2023 Urgency incontinence 11/21/2023 024 UTI (urinary tract infection) 11/21/2023 12/26/2023 Weakness 11/21/2023 12/26/2023 Well woman exam 11/21/2023 12/26/2023 BMI 40.0-44.9, adult ([facility]) 08/23/2023 11/25/2024 Arthritis of right shoulder region 08/08/2022 08/23/2023 Assessment & Plan (08/08/2022 1:07 PM EST): Worsened after She fell DIRECTOR OF HEALTH CARE MARKETING on 06/26 Continue PT at home. Tylenol [...] Encounters Date Type Department Care Team Description 05/27/2025 Orders Only GENERIC EXTERNAL DATA DEPARTMENT Provider, Generic External Data 05/23/2025 Telephone [facility] MEDICINE [address] [place] [address] Valeri Lerner DO I 05/21/2025 Telephone [facility] MEDICINE [address] [place] [address] Valeri Lerner DO FYI 05/13/2025 Anticoagulation - Warfarin Visit [facility] MEDICINE [address] [place] [address] Michaela Rollins, SHIRLEY Paroxysmal atrial fibrillation ([facility]) ([facility]) 05/13/2025 Telephone [facility] MEDICINE [address] [place] [address] Valeri Lerner DO 05/06/2025 Anticoagulation - Warfarin Visit [facility] MEDICINE [address] [place] [address] Michaela Rollins, RN Paroxysmal atrial fibrillation ([facility]) ([facility]) 05/01/2025 Refill [facility] WALK-IN CENTER [address] [place] [address] FletcherFrances alcaraz FNP Hypomagnesemia 04/24/2025 Refill [facility] MEDICINE [address] [place] [address] Valeri Lerner DO 04/18/2025 Telephone [facility] MEDICINE [address] [place] [address] Valeri Lerner, 04/18/2025 Telephone [facility] MEDICINE [address], [place] [address] Valeri Lerner, telephone call 04/15/2025 Anticoagulation - Warfarin Visit [facility] [address] [place] [address] Michaela Rollins, RN Paroxysmal atrial fibrillation ([facility]/HCC) 04/15/2025 Telephone [facility] MEDICINE [address], [place] [address] Valeri Lerner, Call back request 04/14/2025 Telephone [facility] MEDICINE [address], [place] [address] Valeri Lerner, call back request 04/08/2025 Refill [facility] MEDICINE [address], [place] [address] Valeri Lerner, 04/06/2025 Refill [facility] MEDICINE [address], [place] [address] Valeri Lerner DO 03/25/2025 Anticoagulation - Warfarin Visit [facility] [address] [place] [address] Hanane Jackson, SHIRLEY Paroxysmal atrial fibrillation ([facility]) 03/21/2025 Telephone [facility] [address], [place] [address] Valeri Lerner DO Durable Medical Equipment (DME Request: Transport Chair) 03/21/2025 Telephone [facility] [address] [place] [address] Valeri Lerner DO Verbal Order 03/15/2025 Refill [facility] MEDICINE [address], [place] [address] Valeri Lerner DO Paroxysmal atrial fibrillation ([facility]/HCC) 03/11/2025 Telephone [facility] MEDICINE [address], [place] [address] Valeri Lerner, DME nebulizer 03/10/2025 Telephone [facility] [address] [place] [address] Frances Hilario FNP PT referral 03/10/2025 Orders Only [facility] WALK-IN CENTER [address] [place] [address] Sulaiman Frances, PARKING LOT ATTENDANT AND CASHIER Hypomagnesemia (Primary Dx) 03/10/2025 Results Follow-Up [facility] WALK-IN CENTER [address] [place] [address] Frances Hilario, PARKING LOT ATTENDANT AND CASHIER Magnesium, POCT Glucose, POCT HGB A1C 03/07/2025 1:30 PM EDT Office Visit [facility] MEDICINE [address] [place] [address] Sulaiman Frances, PARKING LOT ATTENDANT AND CASHIER Mixed stress and urge urinary incontinence (Primary Dx); Moderate persistent asthma without complication; Hypokalemia; Hypomagnesemia; Type 2 diabetes mellitus with hyperglycemia, with long-term current use of insulin ([facility]); QT prolongation; Paroxysmal atrial fibrillation ([facility]) 03/07/2025 Telephone [facility] [address] [place], [place] [phone] Analilia Stanford FNP Flag Car Driver Provider Documentation 03/07/2025 Orders Only GENERIC EXTERNAL DATA DEPARTMENT Provider, Generic External Data 03/07/2025 Travel 03/05/2025 Refill [facility] MEDICINE [address] [place] [phone] Valeri Lerner DO Depression, unspecified depression type 03/04/2025 Anticoagulation - Warfarin Visit [facility] MEDICINE [address] [place] [address] Michaela Rollins, SHIRLEY Paroxysmal atrial fibrillation ([facility]) 02/25/2025 Refill [facility] MEDICINE [address] [place] [phone] Valeri Lerner DO from Last 3 Months Immunizations Immunization Administration [...] the past 12 months, has t he [employer], appssavvy, oil or water [employer] threatened to shut off services in your [...] Description 06/06/2025 11:30 AM EST Office Visit [facility] OPTOMETRY [address] [place] [address] Tod, Ai, OD [address] [place] [address] Health Maintenance Due Date Last Done Comments Dental Oral Exam 1935 Dental Prophylaxis 1935 Dental X-Ray: Bitewings 1935 Dental X-Ray: Full Mouth 1935 Alcohol/Substance Use Screening 1947 Diabetes: Urine Protein Screening 08/31/2024 08/31/2023, 01/19/2022, 05/19/2021, Additional history exists Lipid Panel 08/31/2024 08/31/2023 COVID-19 Vaccine ( season) 2025 04/26/2024, 12/26/2023, 08/23/2023, Additional history exists Influenza Vaccine (#1) 2025 , 04/26/2024, 08/23/2023, Additional history exists Diabetes: Hemoglobin A1C 06/07/2025 [...] to medication regimen General No Batsheva Gomez, PharmDarion Record your blood sugar as directed Result Component No Batsheva Gomez PharmD Note: Resume CGM. Ensure sensor is scanned at least once every 8 hours to capture 24H data. Check BG manually, as directed. Hemoglobin A1c < 8 Result Component 7.6( 1:53 PM EDT) No Batsheva Gomez PharmD Procedures Procedure Name Priority Date/Time Associated Diagnosis Comments URINALYSIS, COMPLETE, WITH REFLEX TO CULTURE Routine 05/27/2025 6:49 PM EDT CBC WITH AUTO DIFFERENTIAL Routine 05/27/2025 6:11 PM EDT COVID-19 ID NOW (CROWE) Routine 05/27/2025 6:11 PM EDT COMPREHENSIVE METABOLIC PANEL Routine 05/27/2025 6:11 PM EDT INFLUENZA A B2 ID NOW (CROWE) Routine 05/27/2025 6:11 PM EDT PROTHROMBIN TIME-INR Routine 05/13/2025 PROTHROMBIN TIME-INR Routine 05/06/2025 PROTHROMBIN TIME-INR Routine 04/15/2025 PROTHROMBIN TIME-INR Routine 03/25/2025 COMPREHENSIVE METABOLIC PANEL Routine 03/07/2025 2:58 PM EDT MAGNESIUM Routine 03/07/2025 2:58 PM EDT Hypomagnesemia POCT GLYCATED HEMOGLOBIN, TOTAL Routine 03/07/2025 1:53 PM EDT Type 2 diabetes mellitus with hyperglycemia, with long-term current use of insulin ([facility]) POCT GLUCOSE Routine 03/07/2025 1:52 PM EDT Type 2 diabetes mellitus with hyperglycemia, with long-term current use of insulin ([facility]) PROTHROMBIN TIME-INR Routine 03/04/2025 AMB REFERRAL TO PODIATRY Routine 01/10/2025 Type 2 diabetes mellitus with hyperglycemia, with long-term current use of insulin ([facility]) ALBUMIN, RANDOM URINE W/CREATININE Routine 08/31/2023 4:16 PM EST Type 2 diabetes mellitus with hyperglycemia, with long-term current use of insulin ([facility]) LIPID PANEL, STANDARD Routine 08/31/2023 4:11 PM EST Type 2 diabetes mellitus with hyperglycemia, with long-term current use of insulin ([facility]) from Last 3 Months or Most Recently Relevant to Health Maintenance Results * (ABNORMAL) Urinalysis, Complete, with Reflex to Culture (05/27/2025 6:49 PM EDT) Color Urine Yellow [facility] Appearance Urine Clear [facility] PH 7.0 5.0 - 9.0 [facility] Glucose Urine UA >=1000(A) Negative mg/dL [facility] Urine Blood Negative Negative [facility] Specific Thornton - Urine 1.020 1.005 - 1.025 [facility] Urine Protein Negative Neg-Trace mg/dL [facility] Urine Ketones Negative Negative mg/dL [facility] Nitrite Urine Negative Negative [facility] Leukocyte Esterase Urine Moderate (2+)(A) Negative [facility] RBC Urine 0-2 0 - 2 /HPF [facility] Urine WBC 21-50(A) 0 - 5 /HPF [facility] Urine Squamous Epithelial Cell 0-2 0 - 2 /HPF [facility] Urine Bacteria 4+ None Seen [facility] Hyaline Casts, Urine 0-2 0 - 2 /LPF [facility] 05/27/2025 6:49 PM EDT 05/27/2025 6:51 PM EDT Narrative [facility] - 05/27/2025 7:48 PM EDT Urine, Clean Catch Generic External Data Provider LAB URINE ORDERAB LES Final Result Performing Organization Address [facility] Co de Phone Number [facility] [address] [place] [phone] * Influenza A B2 ID NOW (Crowe) (05/27/2025 6:11 PM EDT) IDNOW SERIAL# [id number] [facility] Influenza A Negative Negative [facility] Influenza B2 Negative Negative [facility] Influenza A B2 Note See Note [facility] Comment:The [place]we ID NOW In fluenza A B2 test is used for thequalitative detection of influenza A and B from patientswith signs and symptoms of respiratory infection.Negative results do not preclude influenza virus infectionand should not be used as the sole basis for diagnosis,treatment or other patient management decisions.There is a risk of false negative results due to thepresence of variants in the viral targets of the assay, lowlevels of virus in the specimen and co- infection withRespiratory Syncytial Virus. 05/27/2025 6:11 PM EDT 05/27/2025 6:15 PM EDT Generic External Data Provider LAB MICROBIOLOGY - GENERAL ORDERABLES Final Result Performing Organization Address [facility] de Phone Number [facility] [address] [place] [phone] * COVID-19 ID NOW (CROWE) (05/27/2025 6:11 PM EDT) IDNOW SERIAL# [id number] [facility] COVID-19 TEST Negative Negative [facility] COVID-19 NOTE See Note [facility] Comment: Results are for the identification of SARS-CoV2 RNA. TheSARS-CoV2 RNA is generally detectable in respiratory samplesduring the acute phase of infection. Positive results areindicative of the presence of SARS-CoV-2 RNA; clinicalcorrelation with patient history and other diagnosticinformation is necessary to determine patient infectionstatus. Positive results do not rule out bacterial infectionor co- infection with other viruses.Testing facilities within the [place] and [place] are required to report all positive results tothe appropriate public health authorities.Negative results should be treated as presumptive and, ifinconsistent with clinical signs and symptoms or necessaryfor patient management, should be tested with differentauthorized or cleared molecular tests. Negative results donot preclude SARS-CoV2 RNA infection and should not be usedas the sole basis for patient management decisions. Negativeresults should be considered in the context of a patient'srecent exposures, history and the presence of clinical signsand symptoms consistent with COVID-19.This test has been authorized by the FDA under an EmergencyUse Authorization (EUA) for use by authorized laboratories.Testing performed on the [employer] ID NOW utilizing NAAT. 05/27/2025 6:11 PM EDT 05/27/2025 6:15 PM EDT us Generic External Data Provider LAB MOLECULAR NELSON [employer] ORDERABLES Final Result [facility] [address] [place] [phone] * (ABNORMAL) CBC auto differential (05/27/2025 6:11 PM EDT) White Blood Count 10.8 4.8 - 10.8 X10*3/uL [facility] Red Blood Count 3.95(L) 4.20 - 5.50 X10*6/uL [facility] Hemoglobin 12.2 12.0 - 16.0 g/dl [facility] Hematocrit 38.1 37.0 - 47.0 % [facility] Mean Corpuscular Volume 96.5 80.0 - 98.0 fL [facility] Mean Corpuscular Hemoglobin 30.9 27.0 - 33.0 pg [facility] Mean Corpuscular HGB Conc 32.0 31.0 - 35.0 g/dl [facility] Red Cell Distribution Width 14.6 11.0 - 16.0 % [facility] Platelet Count 179 160 - 400 X10*3/uL [facility] Mean Platelet Volume 11.3 9.4 - 12.3 fL [facility] Neutrophils Percent Auto 78.5(H) 45 - 73 % [facility] Imm Gran Pct Auto 0.4 0.0 - 0.4 % [facility] Lymphocytes Percent Auto 11.9(L) 20 - 40 % [facility] Monocytes Percent Auto 6.0 2 - 11 % [facility] Eosinophils Percent Auto 2.9 0 - 4 % [facility] Basophils Percent Auto 0.3 0 - 2 % [facility] NRBC Pct Auto 0.0 0.0 - 0.2 /100WBC [facility] Neutrophils Absolute Auto 8.4(H) 2.0 - 8.3 x10*3/uL [facility] Imm Gran Abs Auto 0.04(H) 0.00 - 0.03 X10*3/uL [facility] Lymphocytes Absolute Auto 1.3 1.2 - 4.9 X10*3/uL [facility] Monocytes Absolute Auto 0.7 0.1 - 1.2 X10*3/uL [facility] Eosinophils Absolute Auto 0.3 0.0 - 0.4 X10*3/uL [facility] Basophils Absolute Auto 0.0 0.0 - 0.2 X10*3/uL [facility] NRBC Abs Auto 0.000 0.0 - 0.012 X10*3/uL [facility] 05/27/2025 6:11 PM EDT 05/27/2025 6:15 PM EDT us Generic External Data Provider LAB BLOOD ORDERAB LES Final Result [facility] [address] [place] [address] [phone] * (ABNORMAL) Comprehensive Metabolic Panel (05/27/2025 6:11 PM EDT) Only the most recent of2 resultswithin the time period is included. Sodium 139 135 - 145 mmol/L [facility] Potassium 4.5 3.3 - 5.1 mmol/L [facility] Chloride 98 96 - 108 mmol/L [facility] Carbon Dioxide 34(H) 22 - 29 mmol/L [facility] Anion Gap 12 12 - 20 [facility] Urea Nitrogen (BUN) 38(H) 9 - 16 mg/dL [facility] Creatinine, Serum 1.24 0.5 - 1.4 mg/dL [facility] Creatinine Clr Calc Pharmacy 32.9 [facility] Comment:Provided height and weight: 157.48 cm,94.6 kg.eGFR (calculated from the MDRD study equation) and eCrCl(calculated from the Cockcroft-Gault equation) are based ondifferent parameters and may not yield comparable results.If eCrCl result is absurd, please check patient'sheight/weight. Estimated Glomerular Filt Rate 41 [facility] Comment:Chronic Kidney Disea se: Estimated GFR < 60 mL/min/1.84l1Kltypo Kidney Disease: Estimated GFR < 15 mL/min/1.73m2 Glucose 219(H) 60 - 115 mg/dL [facility] Calcium 9.9 8.4 - 10.2 mg/dL [facility] Bilirubin, Total 0.6 0.0 - 1.0 mg/dL [facility] Aspartate Amino Transferase 28 5 - 31 U/L [facility] Alanine Aminotransferase 22 0 - 31 U/L [facility] Total Protein 7.9 6.5 - 8.0 g/dL [facility] Albumin Level 4.0 3.5 - 5.0 g/dL [facility] Alkaline Phosphatase 122(H) 39 - 117 U/L [facility] 05/27/2025 6:11 PM EDT 05/27/2025 6:15 PM EDT us Generic External Data Provider LAB BLOOD ORDERAB LES Final Result [facility] [address] [place] [phone] [phone] * (ABNORMAL) Prothrombin Time-INR (05/13/2025) Only the most recent of5 resultswithin the time period is included. INR 2.00(A) 2.00 - 3.00 EXTERNAL LAB Protime EXTERNAL LAB Blood Venous blood specimen / Unknown 05/13/2025 Valeri Lerner DO LAB BLOOD ORDERABLES Final R esult Performing Organization Address [facility] Co de Phone Number EXTERNAL LAB * (ABNORMAL) Magnesium (03/07/2025 2:58 PM EDT) Magnesium 1.4(LL) 1.6 - 2.6 mg/dL [facility] Comment:Critical value for t est(s): MAG Results called to and readback by: IVET Person calling: AWILDA Date: 03.07.25Time: 1821 Blood Venous blood specimen / Unknown 03/07/2025 2:58 PM EDT 03/07/2025 4:39 PM EDT [facility] LAB BLOOD ORDERABLES Final Re sult Performing Organization Address [facility] Co de Phone Number [facility] [address] [place] [address] [phone] * (ABNORMAL) POCT HGB A1C (03/07/2025 1:53 PM EDT) Hemoglobin A1C 7.6(A) 4.0 - 5.7 % QC Media Lot # [id number] Lot# Expiration Date Blood 03/07/2025 1:53 PM EDT [facility] POINT OF CARE TEST ENTER/EDIT ORDERABLES Final Result * POCT Glucose (03/07/2025 1:52 PM EDT) Glucose Blood, POC 172 60 - 200 mg/dL QC Media Lot # [id number] Lot# Expiration Date [id number] Blood Capillary blood specimen / Unknown 03/07/2025 1:52 PM EDT [facility] POINT OF CARE TEST ENTER/EDIT ORDERABLES Final Result * Referral to Podiatry (01/10/2025) Valeri Lerner DO OUTPATIENT REFERRAL ORDERABL ES Final Result * (ABNORMAL) Albumin, Random Urine W/Creatinine (08/31/2023 4:16 PM EST) Creatinine, Urine 25.77 mg/dL [facility] Microalbumin Urine 31.0 mg/L [facility] Microalbum Creatinine Ratio Ur 120.2(H) <30 ug/mg cr [facility] Comment:Albumin/Creatinine R atio Reference Ranges: Normal: < 30 ug/mg creatinine Microalbuminuria: 30 - 300 ug/mg creatinineClinical Albuminuria: > 300 ug/mg creatinine Urine (Urine, Random) 08/31/2023 4:16 PM EST 08/31/2023 5:27 PM EST Valeri Lerner DO LAB URINE ORDERABLES Final R esult [facility] [address], [place] [phone] * (ABNORMAL) Lipid Panel, Standard (08/31/2023 4:11 PM EST) Triglycerides 349(H) <150 mg/dL [facility] Comment:Desirable Triglyceri de: less than 150 mg/dLBorderline High Triglyceride 150-199 mg/dLHigh Triglyceride: 200-499 mg/dLVery High Triglyceride: greater than or equal to 5OO mg/dL Cholesterol 149 <200 mg/dL [facility] Comment:Desirable Cholestero l: less than 200 mg/dLBorderline High Cholesterol: 200-239 mg/dLHigh Cholesterol: greater than 239 mg/dL LDL Cholesterol Calculated 41 <100 mg/dL [facility] Comment:Desirable LDL: less than 100 mg/dLNear Optimal/Above Optimal LDL: 110- 129 mg/dLBorderline High LDL: 130-159 mg/dLHigh LDL: 160-189 mg/dLVery High LDL: greater than or equal to 190 mg/dL HDL Cholesterol 39(L) >40 mg/dL [facility] Comment:Desirable HDL: great er than 40 mg/dL Note: This HDL assay may give artificially low results in patients with liver disease. Blood Venous blood specimen / Unknown 08/31/2023 4:11 PM EST 08/31/2023 5:27 PM EST Valeri Lerner DO LAB BLOOD ORDERABLES Final R esult [facility] [address] [place] [address] [phone] from Last 3 Months or Most Recently Relevant to Health Maintenance Insurance [facility] STANDARD [facility] DUAL COMPLETE Care Teams Mainframe Systems Administrator Relationship Specialty Start Date End Date Valeri Lerner DO [address] [place] [id number] PCP - General Family Medicine 07/13/12 [employer] 12/08/23
--- OUTSIDE RECORDS SUMMARY | 2025-05-27 20:22 | XMS_ITS | Encounter Summary ---
Author Organization [employer] Address [address] [facility] 7t [place] [address] Care Team Providers Care Baking Powder Mixer Name Role Phone Valeri Lerner DO Primary Care Provider [phone] Batsheva Gomez PharmD Unavailable [phone] Reason for Visit * Reason Comments Med Refill Encounter Details Date Type Department Care Team (Late st Contact Info) Description 06/20/2023 Refill [facility] MEDICINE [address] [place] [address] Valeri Lerner DO [address] [place] [address] Social History Tobacco Use Types Packs/Day Years [...] Description 06/06/2025 11:30 AM EST Office Visit [facility] OPTOMETRY [address] [place] [address] Tod, Ai, OD [address] [place] [address] documented as of this encounter Visit Diagnoses Not on filedocumented in this encounter Care Teams Baking Powder Mixer Relationship Specialty Start Date End Date Valeri Lerner DO [address] [place] [id number] PCP - General Family Medicine 07/13/12 Batsheva Gomez PharmD [address] [place] [address] Pharmacist Internal Medicine 03/07/24 12/19/24 [employer] 12/08/23 documented as of this encounter
--- OUTSIDE RECORDS SUMMARY | 2025-05-27 20:22 | XMS_ITS | Encounter Summary ---
Author Organization [employer] Address [address] [facility] 7t [place] [address] Care Team Providers Care Fur Blowing Machine Operator Name Role Phone Valeri Lerner DO Primary Care Provider [phone] Reason for Visit * Reason Onset Date Comments FYI 05/23/2025 Encounter Details Date Type Department Care Team (Late st Contact Info) Description 05/23/2025 Telephone [facility] MEDICINE [address] [place], [place] [phone] Valeri Lerner DO [address] [place], [place] [phone] FYI Social History Tobacco Use Types Packs/Day Years [...] Telephone Encounter - Michaela Rollins RN - 05/26/2025 3:13 PM EDT Patient presented to [facility] and was admitted to the hospital. Per progress note today: In my clinical judgment, the patient requires continued inpatient hospitalization for the following reasons: IVdiuresis, Cardiology consultation . Patient to f/u upon discharge for HDF appointment. * Telephone Encounter - Michaela Rollins RN - 05/23/2025 12:33 PM EDT Noted. Patient to be status checked on Monday. RN will postpone message. * Telephone Encounter - Klaus Levi - 05/23/2025 12:13 PM EDT Tc from [facility] calling to report possible infection on pt's right calf. He had noticed some redness and pt states it's been there for about week to a week in a half. There is some slight swelling as well as some pain. Pt's family stated they will be taking her to the ER to be evaluated. If any questions you can contact [facility] at [phone]. documented in this encounter Plan of Treatment Upcoming Encounters Date Type Department Care Team (Late st Contact Info) Description 06/06/2025 11:30 AM EST Office Visit [facility] OPTOMETRY [address] [place], [place] [phone] Tod, Ai, OD [address] [place], [place] [phone] documented as of this encounter Goals Goal [...] documented as of this encounter Care Teams Fur Blowing Machine Operator Relationship Specialty Start Date End Date Valeri Lerner DO [address] [place], [place] [phone] PCP - General Family Medicine 07/13/12 [employer] 12/08/23 documented as of this encounter
--- OUTSIDE RECORDS SUMMARY | 2025-05-27 20:22 | XMS_ITS | Encounter Summary ---
Author Organization [employer] Address [address] [place] [address] 7t [place] [address] Care Team Providers Care Freight Coordinator Name Role Phone Valeri Lerner DO Primary Care Provider [phone] Batsheva Gomez PharmD Unavailable Reason for Visit * Reason Comments Med Refill Encounter Details Date Type Department Care Team (Late st Contact Info) Description 08/28/2022 Refill [facility] MEDICINE [address] [place], [place] [phone] Valeri Lerner DO [address] [place], [place] [phone] Chronic constipation (Primary Dx) Social History Tobacco [...] Description 06/06/2025 11:30 AM EST Office Visit [facility] OPTOMETRY [address] [place] [address] Tod Ai, OD [address] [place] [address] documented as of this encounter Visit Diagnoses Diagnosis Chronic constipation- Primary Unspecified constipation documented in this encounter Care Teams Freight Coordinator Relationship Specialty Start Date End Date Valeri Lerner DO [address] [place], [place] [phone] PCP - General Family Medicine 07/13/12 Batsheva Gomez PharmD [address] [place], [place] [phone] Pharmacist Internal Medicine 03/07/24 12/19/24 [employer] 12/08/23 documented as of this encounter
--- OUTSIDE RECORDS SUMMARY | 2025-05-27 20:22 | XMS_ITS | Patient Health Record ---
[facility] Address [address] [place] [address] Care Team Providers Care Director Post Name Role Phone Valeri Lerner Primary Care Provider Keenan Lowery Unavailable [phone] Allergies Allergen (clinical drug ingredient) Drug/Non Drug [...] End Date Status Fluticasone Propionate Active Ipratropium Willis Active Insulin Lispro Activ e Arestin Not-Taking [...] Problem Acquired hammer toe of right foot (9977291084920 105) Other hammer toe(s) (acquired), right foot (M20.41) Active confirmed Problem Type 2 diabetes mellitus with peripheral angiopathy (866094620) Type 2 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) Active confirmed Q7(A), Q8(2B), Q9(1B,2C) Problem Acquired hammer toe of left foot (2789400770210 103) Other hammer toe(s) (acquired), left foot (M20.42) Active confirmed Vital Signs Blood pressure diastolic 65 mm Hg 04/18/2025 Height 5 ft 5 in in 04/18/2025 Blood pressure systolic 140 mm Hg 04/18/2025 Weight 230 lbs 04/18/2025 BMI 38.27 kg/m2 04/18/2025 Procedures Procedure Date Ordered Date Performed Result Body Sit e 70600-IUPRTET NAIL, 6 OR MORE 08/16/2024 N/A 37115-HBYW SKIN LESIONS, OVER 4 08/16/2024 N/A 66848-ADBFRAC NAIL, 6 OR MORE 01/10/2025 N/A 85674-TGSY SKIN LESIONS, OVER 4 01/10/2025 N/A 34985-UVABNND NAIL, 6 OR MORE 04/18/2025 N/A 65369-CRWW SKIN LESIONS, OVER 4 04/18/2025 N/A Encounters Encounter Location Date Provider Diagnosis [address] [address] 08/16/2024 Keenan Dyer Type 2 diabetes mellitus with diabetic peripheral angiopathy without gangrene E11.51 ; Tinea unguium B35.1 ; Pain in right toe(s) M79.674 ; Pain in left toe(s) M79.675 ; Other hammer toe(s) (acquired), left foot M20.42 ; Other hammer toe(s) (acquired), right foot M20.41 and Tinea pedis of both feet B35.[address] [address] 01/10/2025 Keenan Dyer Type 2 diabetes mellitus with diabetic peripheral angiopathy without gangrene E11.51 ; Other hammer toe(s) (acquired), right foot M20.41 ; Tinea unguium B35.1 ; Pain in right toe(s) M79.674 ; Pain in left toe(s) M79.675 ; Other hammer toe(s) (acquired), left foot M20.42 and Tinea pedis of both feet B35.[address] [address] 04/18/2025 Keenan Dyer Type 2 diabetes mellitus with diabetic peripheral angiopathy without gangrene E11.51 ; Tinea unguium B35.1 ; Pain in right toe(s) M79.674 ; Pain in left toe(s) M79.675 and Tinea pedis of both feet B35.[address] [facility] [address] 01/10/2025 Keenan Dyer [facility] [address] [address] 01/10/2025 Keenan Dyer Assessments Encounter Date Diagnosis [...] Treatment Pending Test Test Name Order Date 11238-COJHIYN NAIL, 6 OR MORE 10/27/2016 34003-JOBSGWP NAIL, 6 OR MORE 05/09/2017 55098-MFGGCMR NAIL, 6 OR MORE 08/21/2017 93352-EOPBOCR NAIL, 6 OR MORE 01/26/2017 17455-ISCACXH NAIL, 6 OR MORE 01/29/2018 63177-CLXPZCZ NAIL, 6 OR MORE 07/09/2018 79726-EBCSIYC NAIL, 6 OR MORE 11/22/2018 84263-MDPBRGB NAIL, 6 OR MORE 08/16/2024 55390-JXFETIA NAIL, 6 OR MORE 01/10/2025 93725-WQNEITJ NAIL, 6 OR MORE 04/18/2025 01012-FODULDI NAIL, 1-5 12/21/2015 50293-YNGZTIG NAIL, -05/30/2016 44397-SWSCKKQ NAIL, -02/18/2015 31698-HKMFJLV NAIL, -05/27/2015 29190-VRGWTNX NAIL, -09/23/2015 16305-Cqkdcnoi Plate 02/18/2015 30980-Ndnrgitw Plate 05/30/2016 39421-Uwizkdci Plate 12/21/2015 00286-Iwbpnxlx Plate 09/23/2015 18457-Uezwfhfc Plate 10/27/2016 17991-Upgdracv Plate 01/07/2019 99514-EVCV SKIN LESIONS, OVER 4 07/09/20 18 97096-NEWK SKIN LESIONS, OVER 4 05/09/20 17 77275-YZDM SKIN LESIONS, OVER 4 04/18/20 25 52503-ZAJY SKIN LESIONS, OVER 4 11/23/19 19 82884-OLRC SKIN LESIONS, OVER 4 01/11/20 25 55510-VZKO SKIN LESIONS, OVER 4 08/16/19 25 33868-AXWI SKIN LESIONS, OVER 4 10/28/19 17 16839-JIJO SKIN LESIONS, OVER 4 01/27/20 17 09225-NNGA SKIN LESIONS, OVER 4 08/21/19 18 40335-ULTH SKIN LESIONS, OVER 4 01/30/20 18 06070-OTWD SKIN LESIONS, 2 TO 4 02/19/20 15 46781-GXZA SKIN LESIONS, 2 TO 4 05/27/20 15 47468-ABZR SKIN LESIONS, 2 TO 4 09/23/19 16 77093-RGXY SKIN LESIONS, 2 TO 4 12/21/19 16 18436-OGRI SKIN LESIONS, 2 TO 4 05/30/20 16 22848-Cmjz. Subungual Hematoma 9 U1034-UYCYAOEW DYSTROPHIC NAILS ANY # Q5251-PXLXTEVT DYSTROPHIC NAILS ANY # G9627-PSYTGSPK DYSTROPHIC NAILS ANY # S4956-WJKRHUJM DYSTROPHIC NAILS ANY # Next Appt Details Provider Name:Keenan Janel Dyer , 08/15/2025 12:45:00 PM, [address] [place] [address], [phone], Insurance Providers Payer Name Payer Address Payer Phone Subscriber Number Group Number Insured Name Patient Relationship to Insured Coverage Start Date Coverage End Date [employer] Medicare-[id number] [address] [place] [address] [phone] [id number] Nikky Morgan Self - patient is the insured Medical (General) History Medical History History ICD Code Anxiety Arthritis asthma Back,Hip,and Knee pain Broken bones Diabetic Stroke Thyroid disorder blood clots Gout Heart disease Surgical History Surgery Date(Month/Year) cataract surgery left eye 11/09/2018 Hospitalization History Reason Date(Month/Year) [facility] for a cough 2018
--- OUTSIDE RECORDS SUMMARY | 2025-05-27 20:22 | XMS_ITS | Encounter Summary ---
Author Organization [employer] Address [address] [facility] 7t [place] [address] Care Team Providers Care Counselor Dormitory Name Role Phone Valeri Lerner DO Primary Care Provider Batsheva Gomez PharmD Unavailable Reason for Visit * Reason Comments Med Refill Encounter Details Date Type Department Care Team (Late st Contact Info) Description 09/12/2023 Refill [facility] MEDICINE [address] [place], [place] [phone] Valeri Lerner DO [address] [place], [place] [phone] Generalized anxiety disorder Social History Tobacco Use [...] the past 12 months, has t he [employer], gas, oil or water [employer] threatened to shut off services in your [...] Description 06/06/2025 11:30 AM EST Office Visit [facility] OPTOMETRY [address] [place] [address] Ai Baron, KEMI [address] [place] [address] documented as of this encounter Visit Diagnoses Diagnosis Generalized anxiety disorder documented in this encounter Additional Health Concerns Assessment Noted Time PHQ-9 Depression Total Score: 2 08/23/19 24 11:01 AM EST documented as of this encounter Care Teams Counselor Dormitory Relationship Specialty Start Date End Date Valeri Lerner DO [address] [place] [address] PCP - General Family Medicine 07/13/12 Batsheva Gomez PharmD [address] [place] [address] Pharmacist Internal Medicine 03/07/24 12/19/24 [employer] 12/08/23 documented as of this encounter
--- OUTSIDE RECORDS SUMMARY | 2025-05-27 20:22 | XMS_ITS | Encounter Summary ---
Author Organization [employer] Address [address] [place] [address] 7t [place] [address] Care Team Providers Care Sheet Metal Work Furnace Installer Name Role Phone Valeri Lerner DO Primary Care Provider + [phone] Reason for Visit * Reason Comments Med Refill Encounter Details Date Type Department Care Team (Late st Contact Info) Description 04/24/2025 Refill [facility] MEDICINE [address] [place], [place] [phone] Valeri Lerner DO [address] [place], [place] [phone] Social History Tobacco Use Types Packs/Day Years [...] Description 06/06/2025 11:30 AM EST Office Visit [facility] OPTOMETRY [address] [place] [address] Ai Baron, OD [address] [place] [address] documented as of this encounter Goals Goal [...] documented as of this encounter Care Teams Sheet Metal Work Furnace Installer Relationship Specialty Start Date End Date Valeri Lerner DO [address] [place] [address] PCP - General Family Medicine 07/13/12 [employer] 12/08/23 documented as of this encounter
--- OUTSIDE RECORDS SUMMARY | 2025-05-27 20:22 | XMS_ITS ---
Author Name Yelena Barillas NP Address [address] [place] [address] Phone [phone] 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 She has an appointment with the server software engineer on monday for further evaluation.01/28/25: Patient denies BLE edema or dyspnea, denies any acute concerns. COPD (chronic obstructive pulmonary disease) Active 2022-08-15 N/A advjhoana hayes casonefu w pulmonaryon Room Air -Stable-continue to f/u with PCP/specialists-continue rx'd medications-report changes in chronic condition Incontinence; Mixed stress and urge urinary incontinence Active 2024-11-22 N/A Incontinence sup plies ordered on 11/22-continue f/u with urology [facility] Unsteady gait Active 2024-12-10 N/A TECHNOLOGY SOLUTIONS ARCHITECT reports that the patient has unsteady gait [...] N/A -Patient has gurwinder ly [facility] and TECHNOLOGY SOLUTIONS ARCHITECT services. She lives alone in a third floor apartment with close family support from daughter. Daughter requesting increase in TECHNOLOGY SOLUTIONS ARCHITECT hoursPCA- Sully -Advised to reach out to [facility] cc [place] currently approximate 30hours per [...] NoDo you have a Durable Power of Issuer for Healthcare, or Healthcare Proxy Or Guardianship? 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 [...] (do not use for phone, instead use 24173-91) [facility]2022 Paroxysmal atrial fibrillationChronic obstructive pulmonary disease, unspecifiedAthscl heart disease of wales coronary artery w/o ang pctrsType 2 diabetes [...] (do not use for phone, instead use 58566-82) [facility] New patient,40-59min ; chronic exacerbation, 2 stable chronic or 1 acute illness add add modifier 95 for video (do not use for phone, instead use 65107-91) [facility] 08/[place]/2022 New patient,40-59min ; chronic exacerbation, 2 stable chronic or 1 acute illness add add modifier 95 for video (do not use for phone, instead use 60832-00) [facility] 08/[place]/2022 New patient,40-59min ; chronic exacerbation, 2 stable chronic or 1 acute illness add add modifier 95 for video (do not use for phone, instead use 76196-09) [facility] [place] 08/[place]/2022 New patient,40-59min ; chronic exacerbation, 2 stable chronic or 1 acute illness add add modifier 95 for video (do not use for phone, instead use 54394-49) [facility] 08/[place]/2022 New patient,40-59min ; chronic exacerbation, 2 stable chronic or 1 acute illness add add modifier 95 for video (do not use for phone, instead use 07309-50) [facility] New patient,40-59min ; chronic exacerbation, 2 stable chronic or 1 acute illness add add modifier 95 for video (do not use for phone, instead use 72517-14) [facility] 08/[place]/2022 Estab. patient 20-29min; 1 stable chronic or 2 minor; add add modifier 95 for video, modifier 93 for phone [facility] [place] 10/03/2022 Pneumonia, unspecified organismSepsis, unspecified organism Estab. patient 20-29min; 1 stable chronic or 2 minor; add add modifier 95 for video, modifier 93 for phone [facility] 10/03/2022 Estab. patient 20-29min; 1 stable chronic or 2 minor; add add modifier 95 for video, modifier 93 for phone [facility] [place] 10/03/2022 Estab. patient 20-29min; 1 stable chronic or 2 minor; add add modifier 95 for video, modifier 93 for phone [facility] [place] 10/03/2022 Estab. patient 20-29min; 1 stable chronic or 2 minor; add add modifier 95 for video, modifier 93 for phone [facility] [place] 10/03/2022 Estab. patient 20-29min; 1 stable chronic or 2 minor; add add modifier 95 for video, modifier 93 for phone [facility] [place] 10/03/2022 Estab. patient 30-39min; chronic exacerbation, 2 stable chronic or 1 acute illness add add modifier 95 for video, (do not use for phone, instead use 95614-47) [facility] [place] 05/28/2024 Paroxysmal atrial fibrillati onOther thrombophiliaHypertensive heart disease with heart failureMorbid (severe) obesity due to excess caloriesSecondary hyperaldosteronismChronic obstructive pulmonary disease, unspecifiedHeart failure, unspecifiedMajor depressive disorder, single episode, in partial remissionType 2 diabetes mellitus with other specified complicationHypothyroidism, unspecifiedHyperlipidemia, unspecifiedAthscl heart disease of wales coronary artery w/o ang pctrsAnemia in other chronic diseases classified elsewhereGeneralized anxiety disorderBody mass index (BMI) 40.0-44.9, adultPrsnl hx of TIA (TIA), and cereb infrc w/o resid deficitsOther problems related to medical facilities and other health care Estab. patient 30-39min; chronic exacerbation, 2 stable chronic or 1 acute illness add add modifier 95 for video, (do not use for phone, instead use 27379-00) [facility] Estab. patient 30-39min; chronic exacerbation, 2 stable chronic or 1 acute illness add add modifier 95 for video, (do not use for phone, instead use 87822-16) [facility] Estab. patient 30-39min; chronic exacerbation, 2 stable chronic or 1 acute illness add add modifier 95 for video, (do not use for phone, instead use 17577-61) [facility] Estab. patient 30-39min; chronic exacerbation, 2 stable chronic or 1 acute illness add add modifier 95 for video, (do not use for phone, instead use 37058-99) [facility] Estab. patient 30-39min; chronic exacerbation, 2 stable chronic or 1 acute illness add add modifier 95 for video, (do not use for phone, instead use 34245-00) [facility] Estab. patient 30-39min; chronic exacerbation, 2 stable chronic or 1 acute illness add add modifier 95 for video, (do not use for phone, instead use 05832-57) [facility] Estab. patient 30-39min; chronic exacerbation, 2 stable chronic or 1 acute illness add add modifier 95 for video, (do not use for phone, instead use 03586-12) [facility] Estab. patient 30-39min; chronic exacerbation, 2 stable chronic or 1 acute illness add add modifier 95 for video, (do not use for phone, instead use 44859-65) [facility] Estab. patient 30-39min; chronic exacerbation, 2 stable chronic or 1 acute illness add add modifier 95 for video, (do not use for phone, instead use 24783-00) [facility] 05[place] Estab. patient 30-39min; chronic exacerbation, 2 stable chronic or 1 acute illness add add modifier 95 for video, (do not use for phone, instead use 59914-25) [facility] [place] 05/28/2024 Estab. patient 10-29min; 1 minor problem; add add modifier 95 for video, modifier 93 for phone [facility] [place] 09/10/2024 Heart failure, unspecifiedSe condary hyperaldosteronismOther problems related to medical facilities and other health care Estab. patient 10-29min; 1 minor problem; add add modifier 95 for video, modifier 93 for phone [facility] 10[place]10[place]2024 Chronic obstructive pulmonar y disease, unspecifiedHypertensive heart disease with heart failureHeart failure, unspecified Estab. patient 10-29min; 1 minor problem; add add modifier 95 for video, modifier 93 for phone [facility] 11[place]07/2024 Acute respiratory failure wi th hypoxiaChronic obstructive pulmonary disease, unspecifiedPneumonia, unspecified organismUnspecified urinary incontinenceOther problems related to medical facilities and other health care Estab. patient 10-29min; 1 minor problem; add add modifier 95 for video, modifier 93 for phone [facility]/07/20[place] Estab. patient 10-29min; 1 minor problem; add add modifier 95 for video, modifier 93 for phone [facility] [place] 11/07/2024 Estab. patient 10-29min; 1 minor problem; add add modifier 95 for video, modifier 93 for phone [facility]/07/20[place] Estab. patient 10-29min; 1 minor problem; add add modifier 95 for video, modifier 93 for phone [facility] [place] 12/10/2024 Acute respiratory failure wi th hypoxiaPneumonia, unspecified organismUnsteadiness on feetOther problems related to medical facilities and other health care Estab. patient 10-29min; 1 minor problem; add add modifier 95 for video, modifier 93 for phone [facility] 01/28/2025 Heart failure, unspecifiedSe condary hyperaldosteronismChronic obstructive pulmonary disease, unspecified RN, CN or CP time with patient by phone; use with 1111F, BP, A1c or other CPTII codes [facility] [place] 02/18/2025 Encounter for other specifie d aftercare RN, CN or CP time with patient by phone; use with 1111F, BP, A1c or other CPTII codes [facility] [place] 02/18/2025 Estab. patient 10-29min; 1 minor problem; add add modifier 95 for video, modifier 93 for phone [facility] [place] 02/27/2025 Urinary tract infection, sit e not specifiedOther problems related to medical facilities and other health care Estab. patient 10-29min; 1 minor problem; add add modifier 95 for video, modifier 93 for phone [facility] [place] 02/27/2025 Estab. patient 10-29min; 1 minor problem; add add modifier 95 for video, modifier 93 for phone [facility] [place] 02/27/2025 Estab. patient 10-29min; 1 minor problem; add add modifier 95 for video, modifier 93 for phone [facility] [place] 02/27/2025 Estab. patient 10-29min; 1 minor problem; add add modifier 95 for video, modifier 93 for phone [facility] [place] 04/02/2025 Polyosteoarthritis, unspecifiedParoxysmal atrial fibrillationOther thrombophiliaChronic obstructive pulmonary disease, unspecifiedAthscl heart disease of wales coronary artery w/o ang pctrsType 2 diabetes [...] Time Current Smoking Status Former smoker 2025-05-01 9 Sex Female Gender identity Woman History of Procedures Procedures Service Procedure code Service date Servicing provider Phone# New patient,40-59min; chronic exacerbation, 2 stable chronic or 1 acute illness add add modifier 95 for video (do not use for phone, instead use 14871-59) [id number] 2022-08-25 No Data Available No Data Availa [...] 95 for video, modifier 93 for phone [id number] 2022-10-03 No Data Available No Data Availa [...] (do not use for phone, instead use 03358-95) [id number] 2024-05-28 No Data Available No Data Availa [...] 95 for video, modifier 93 for phone 58206 2024-09-10 No Data Available No Data Availa ble Estab. patient 10-29min; 1 minor problem; add add modifier 95 for video, modifier 93 for phone 14222 2024-10-10 No Data Available No Data Availa [...] 95 for video, modifier 93 for phone 04104 2024-12-10 No Data Available No Data Availa ble Estab. patient 10-29min; 1 minor problem; add add modifier 95 for video, modifier 93 for phone 13282 2025-01-28 No Data Available No Data Availa ble RN, CN or CP time with patient by phone; use with 1111F, BP, A1c or other CPTII codes 28892 2025-02-18 No Data Available No Data Avai [...] 95 for video, modifier 93 for phone [id number] 2025-04-02 No Data Available No Data Availa [...] obstructive pulmonary disease)Atherosclerosis of coronary artery of wales heartType 2 diabetes mellitus with hyperlipidemiaMajor depressive disorder in partial remissionHypothyroidismMorbid obesity due to excess caloriesHistory of CVA (cerebrovascular accident)Anemia in chronic illness 2022-10-03 07:05:20 Patient Education to avoid future hospitalization: Call [facility] if symptoms of illness develop.Sepsis due to pneumonia 2024-05-28 07:45:46 paroxysmal atrial fi brillation and Hypercoagulability due to atrial fibrillationCOPD (chronic obstructive pulmonary disease)Atherosclerosis of coronary artery of wales heartType 2 diabetes mellitus with hyperlipidemiaMajor depressive [...] obstructive pulmonary disease)Atherosclerosis of coronary artery of wales heartType 2 diabetes mellitus with hyperlipidemia; Type [...] lantus, metformin, trulicty a1c 7.7, [facility] and mtr lipids fu w endocrinecont on sertralinept denies symptoms currentlycont to [facility] fcont clonazepam for anxiety/insomnialevothyroxinefu w endomtr [...] may arise 20/02.HEART FAILURE CONTINGENCY PLANLast updated: 05/29/2024[facility] to call for the following symptoms: [...] feeling wellReport consistent blood pressures readings >140/902/06/24: TECHNOLOGY SOLUTIONS ARCHITECT reports that in the last couple of days the patient's toes have been pink and sensitive to touch, denies uncontrolled pain to touch. She has an appointment with the server software engineer on monday for further evaluation. 2024-10-10 06:15:41 Estab. patient 10-29 min; 1 minor problem; add add modifier 95 for video, modifier 93 for phoneContinue to see PCP. [facility] or disease education needs that may arise 20/02.advair, fluticasonefu w pulmonary3: Patient denies dyspnea or any other concerns.Encourage low sodium diet. Encouraged daily blood pressure checks and tracking. Instructed patient to notify CB or PCP if blood pressure >140/90 or <90/50.HEART FAILURE CONTINGENCY PLANLast updated: 05/29/2024[facility] to call for the following symptoms: [...] the patient is home with family and TECHNOLOGY SOLUTIONS ARCHITECT/[facility] care. The patient is currently has a soft diet and increase weakness post hospitalization. Medication reconciled with hospital records, unable to confirm with VNAHEART FAILURE CONTINGENCY PLANLast updated: 05/29/2024[facility] to call for the following symptoms: BP <100/60 / BP >180/100 / Edema/ Exertional dyspnea/ Weight gain or lossPlanned intervention: Increase furosemide (Lasix) to 60 mg for 3 days/ Wrap legs with Mohan wrap/ Put on compression stockings/ Eat lower sodium foods/ Take medication every single dayCOPD CONTINGENCY PLANLast updated: 11/22/2024[facility] to call for the following symptoms: [...] or disease education needs that may arise 20/02.TECHNOLOGY SOLUTIONS ARCHITECT reports that the patient has unsteady gait with walking, requires assistance during ambulation. Hx of falls.11/07/24: Hospitalization 10/21-10/21 for acute hypoxic respiratory failure secondary to pneumonia. Patient presented to cough and shortness of breath. The patient was discharged to a STR. In addition, the patient had ER visit 11/05 for aspiration pneumonia. At this time, the patient is home with family and TECHNOLOGY SOLUTIONS ARCHITECT/[facility] care. The patient is currently has a soft diet and increase weakness post hospitalization. Medication reconciled with hospital records, unable to confirm with [facility]12/10/24: Cg reports that the patient does not have any acute symptoms, she is 'stable'. She is aware that the patient will continue to steadily decline.HEART FAILURE CONTINGENCY PLANLast updated: 05/29/2024[facility] to call for the following symptoms: BP <100/60 / BP >180/100 / Edema/ Exertional dyspnea/ Weight gain or lossPlanned intervention: Increase furosemide (Lasix) to 60 mg for 3 days/ Wrap legs with Mohan wrap/ Put on compression stockings/ Eat lower sodium foods/ Take medication every single dayCOPD CONTINGENCY PLANLast updated: 11/22/2024[facility] to call for the following symptoms: Exertional dyspnea/ Increased cough / WheezingPlanned intervention: Levofloxacin 500mg daily x 5 daysFALL CONTINGENCY PLANMember to call for the following symptoms: Fall / Pre-syncope/ Refusing to use cane / WeaknessPlanned intervention: Order x-ray at [facility] or local hospital Assess for change [...] feeling wellReport consistent blood pressures readings >140/902/06/24: TECHNOLOGY SOLUTIONS ARCHITECT reports that in the last couple of days the patient's toes have been pink and sensitive to touch, denies uncontrolled pain to touch. She has an appointment with the server software engineer on monday for further evaluation.01/28/25: Patient denies BLE edema or dyspnea, denies any acute concerns.advair, fluticasonefu w pulmonary01/28/25: Patient denies dyspnea or any other concerns.HEART FAILURE CONTINGENCY PLANLast updated: 05/29/2024[facility] to call for the following symptoms: BP <100/60 / BP >180/100 / Edema/ Exertional dyspnea/ Weight gain or lossPlanned intervention: Increase furosemide (Lasix) to 60 mg for 3 days/ Wrap legs with Mohan wrap/ Put on compression stockings/ Eat lower sodium foods/ Take medication every single dayCOPD CONTINGENCY PLANLast updated: 11/22/2024[facility] to call for the following symptoms: Exertional dyspnea/ Increased cough / WheezingPlanned intervention: Levofloxacin 500mg daily x 5 daysFALL CONTINGENCY PLANMember to call for the following symptoms: Fall / Pre-syncope/ Refusing to use cane / WeaknessPlanned intervention: Order x-ray at [facility] or local hospital Assess for change [...] for phoneContinue to see PCP. Follow-up with [facility] as needed for any acute or disease education needs that may arise.02/15-02/17 hospitalization due to a fall. Dx with a urinary tract infection and treated with an antibiotic. Cg denies any current symptoms or concerns.UTI CONTINGENCY PLANLast updated: 02/27/2025[facility] to call for the following symptoms: [...] cane / WeaknessPlanned intervention: Order x-ray at [facility] or local hospital Assess for change [...] with PCP/specialists-continue rx'd medications-report changes in chronic zrofdprgugswjriacs-Sirter-ltbyhkra to f/u with PCP/specialists-continue rx'd medications-report changes [...] feeling wellReport consistent blood pressures readings >140/902/06/24: TECHNOLOGY SOLUTIONS ARCHITECT reports that in the last couple of days the patient's toes have been pink and sensitive to touch, denies uncontrolled pain to touch. She has an appointment with the server software engineer on monday for further evaluation.01/28/25: Patient denies [...] on 11/22-[facility] the patient has unsteady gait with walking, requires assistance during ambulation. Hx of falls.-Patient has daily [facility] and TECHNOLOGY SOLUTIONS ARCHITECT services. She lives alone in a third floor apartment with close family support from daughter. Daughter requesting increase in TECHNOLOGY SOLUTIONS ARCHITECT hoursPCAJigna Virk -Advised to reach out to [facility] cc [place] currently approximate 30hours per [...] NoDo you have a Durable Power of Issuer for Healthcare, or Healthcare Proxy Or Guardianship? [...] discussion: (Who was present, : member and DXD-Bymmxk-[id number] to f/u with PCP/specialists-continue rx'd medications-report changes [...] NoDo you have a Durable Power of Issuer for Healthcare, or Healthcare Proxy Or Guardianship? [...] discussion: (Who was present, : member and TECHNOLOGY SOLUTIONS ARCHITECT 2025-04-02 Functional Assessmen tCognition Status: Oriented to [...]
--- OUTSIDE RECORDS SUMMARY | 2025-05-27 20:22 | XMS_ITS | Encounter Summary ---
Author Organization [employer] Address [address] [place] [address] [address] [place] [address] Care Team Providers Care Fruit Thinner Machine Operator Name Role Phone EduardaValeri Primary Care Provider [phone] Batsheva Gomez PharmD Unavailable [phone] Encounter Details Date Type Department Care Team (Late st Contact Info) Description 09/29/2022 Abstract [facility] [address] [place] [address] Sebastian Fierro DDS [address] [place] [address] Social History Tobacco Use Types Packs/Day Years [...] Description 06/06/2025 11:30 AM EST Office Visit [facility] [address] [place], [place] [id number] Ai Baron, OD [address] [place] [address] documented as of this encounter Visit Diagnoses Not on filedocumented in this encounter Care Teams Fruit Thinner Machine Operator Relationship Specialty Start Date End Date Valeri Lerner DO [address] [place], [place] [phone] PCP - General Family Medicine 07/13/12 Batsheva Gomez PharmD [address] [place] [address] [phone] Pharmacist Internal Medicine 03/07/24 12/19/24 [place] 12/08/23 documented as of this encounter
--- OUTSIDE RECORDS SUMMARY | 2025-05-27 20:22 | XMS_ITS | Encounter Summary ---
Author Organization [employer] Address [address] [place] [address] [address] [place] [address] Care Team Providers Care Batch Records Clerk Name Role Phone Valeri Lerner DO Primary Care Provider [phone] Batsheva Gomez PharmD Unavailable Encounter Details Date Type Department Care Team (Late st Contact Info) Description 08/03/2022 Orders Only [facility] MED & PEDS [address] [place] [address] Valeri Renner LPN Social History Tobacco Use [...] Description 06/06/2025 11:30 AM EST Office Visit [facility] OPTOMETRY [address], [place] [phone] Tod, Ai, OD [address] [place], [place] [phone] documented as of this encounter Procedures Procedure [...] EST) Protime 26.1(H) 11.1 - 13.5 sec [facility] 07/14/2023 11:0 7 AM EST 07/14/2023 11:08 AM EST us Generic External Data Provider LAB BLOOD ORDERAB LES Final Result Performing Organization Address City/State/[facility] Co de Phone Number [facility] [address] [place] [address] [phone] * (ABNORMAL) ~PT, ~INR - ANTI [facility] (07/14/2023 11:07 AM EST) Prothrombin Time INR 2.2(H) 0.9 - 1.1 [facility] Comment:METER #: [id number] TERNATIONAL NORMALIZED RATIO (INR) REFERENCE RANGES Reference [...] ORDERAB LES Final Result Performing Organization Address [facility] Co de Phone Number [facility] [address] [place] [phone] * (ABNORMAL) PROTHROMBIN TIME WHOLE BLD POC (06/09/2023 11:34 AM EST) Protime 23.9(H) 11.1 - 13.5 sec [facility] 06/09/2023 11:3 4 AM EST 06/09/2023 11:36 AM EST Generic External Data Provider LAB BLOOD ORDERAB LES Final Result Performing Organization Address [facility] de Phone Number [facility] [address] [place] [phone] * (ABNORMAL) ~PT, ~INR - ANTI [facility]AG CLINIC (06/09/2023 11:34 AM EST) Prothrombin Time INR 2.0(H) 0.9 - 1.1 [facility] Comment:METER #: [id number] TERNATIONAL NORMALIZED RATIO (INR) REFERENCE RANGES Reference [...] ORDERAB LES Final Result Performing Organization Address [facility] de Phone Number [facility] [address] [place] [phone] * (ABNORMAL) PROTHROMBIN TIME WHOLE BLD POC (03/22/2023 11:23 AM EDT) Protime 38.5(H) 11.1 - 13.5 sec [facility] 03/22/2023 11:2 3 AM EDT 03/22/2023 11:25 AM EDT Generic External Data Provider LAB BLOOD ORDERAB LES Final Result Performing Organization Address [facility] de Phone Number [facility] [address] [place] [address] [phone] * (ABNORMAL) ~PT, ~INR - ANTI [facility]AG CLINIC (03/22/2023 11:23 AM EDT) Prothrombin Time INR 3.2(H) 0.9 - 1.1 [facility] Comment:METER #: [id number] TERNATIONAL NORMALIZED RATIO (INR) REFERENCE RANGES Reference [...] 3 AM EDT 03/22/2023 11:25 AM EDT [facility] External Provider LAB BLO OD ORDERABLES Final Result Performing Organization Address [facility] Co de Phone Number [facility] [address] [place] [phone] * (ABNORMAL) PROTHROMBIN TIME WHOLE BLD POC (03/01/2023 11:31 AM EDT) Protime 26.8(H) 11.1 - 13.5 sec [facility] 03/01/2023 11:3 1 AM EDT 03/01/2023 11:33 AM EDT Generic External Data Provider LAB BLOOD ORDERAB LES Final Result Performing Organization Address City/[facility]/ZIP Co de Phone Number [facility] [address] [place] [phone] * (ABNORMAL) ~PT, ~INR - ANTI [facility]AG CLINIC (03/01/2023 11:31 AM EDT) Prothrombin Time INR 2.2(H) 0.9 - 1.1 [facility] Comment:METER #: [id number] TERNATIONAL NORMALIZED RATIO (INR) REFERENCE RANGES Reference [...] 1 AM EDT 03/01/2023 11:33 AM EDT [facility] External Provider LAB BLO OD ORDERABLES Final Result Performing Organization Address City/[facility] Co de Phone Number [facility] [address] [place] [phone] * (ABNORMAL) PROTHROMBIN TIME WHOLE BLD POC (02/08/2023 11:20 AM EDT) Protime 26.7(H) 11.1 - 13.5 sec [facility] 02/08/2023 11:2 0 AM EDT 02/08/2023 11:22 AM EDT [facility] External Provider LAB BLO OD ORDERABLES Final Result Performing Organization Address [facility] Co de Phone Number [facility] [address] [place] [phone] * (ABNORMAL) ~PT, ~INR - ANTI [facility]AG CLINIC (02/08/2023 11:20 AM EDT) Prothrombin Time INR 2.2(H) 0.9 - 1.1 [facility] Comment:METER #: [id number] TERNATIONAL NORMALIZED RATIO (INR) REFERENCE RANGES Reference [...] 0 AM EDT 02/08/2023 11:22 AM EDT [facility] External Provider LAB BLO OD ORDERABLES Final Result Performing Organization Address [facility] de Phone Number [facility] [address] [place] [address] [phone] * (ABNORMAL) PROTHROMBIN TIME WHOLE BLD POC (01/18/2023 2:41 PM EDT) Protime 25.7(H) 11.1 - 13.5 sec [facility] 01/18/2023 2:41 PM EDT 01/18/2023 2:43 PM EDT [facility] External Provider LAB BLO OD ORDERABLES Final Result Performing Organization Address [facility] Co de Phone Number [facility] [address] [place] [address] [place] [phone] * (ABNORMAL) ~PT, ~INR - ANTI [facility]AG CLINIC (01/18/2023 2:41 PM EDT) Prothrombin Time INR 2.1(H) 0.9 - 1.1 [facility] Comment:METER #: [id number] TERNATIONAL NORMALIZED RATIO (INR) REFERENCE RANGES Reference [...] 2:41 PM EDT 01/18/2023 2:43 PM EDT [facility] External Provider LAB BLO OD ORDERABLES Final Result [facility] [address] [place] [address] [phone] * (ABNORMAL) PROTHROMBIN TIME WHOLE BLD POC (12/30/2022 11:46 AM EDT) Protime 20.5(H) 11.1 - 13.5 sec [facility] 12/30/2022 11:4 6 AM EDT 12/30/2022 11:48 AM EDT [facility] External Provider LAB BLO OD ORDERABLES Final Result [facility] [address] [place] [phone] * (ABNORMAL) ~PT, ~INR - ANTI [facility]AG CLINIC (12/30/2022 11:46 AM EDT) Prothrombin Time INR 1.7(H) 0.9 - 1.1 [facility] Comment:METER #: [id number] TERNATIONAL NORMALIZED RATIO (INR) REFERENCE RANGES Reference [...] 6 AM EDT 12/30/2022 11:48 AM EDT [facility] External Provider LAB BLO OD ORDERABLES Final Result Performing Organization Address City/[facility] Co de Phone Number [facility] [address] [place] [address] [phone] * (ABNORMAL) PROTHROMBIN TIME WHOLE BLD POC (12/15/2022 10:26 AM EDT) Protime 23.7(H) 11.1 - 13.5 sec [facility] 12/15/2022 10:2 6 AM EDT 12/15/2022 10:28 AM EDT [facility] External Provider LAB BLO OD ORDERABLES Final Result Performing Organization Address City/[facility] Co de Phone Number [facility] [address] [place] [address] [phone] * (ABNORMAL) ~PT, ~INR - ANTI [facility]AG CLINIC (12/15/2022 10:26 AM EDT) Prothrombin Time INR 2.0(H) 0.9 - 1.1 [facility] Comment:METER #: [id number] TERNATIONAL NORMALIZED RATIO (INR) REFERENCE RANGES Reference [...] 6 AM EDT 12/15/2022 10:28 AM EDT [facility] External Provider LAB BLO OD ORDERABLES Final Result Performing Organization Address City/[facility] Co de Phone Number [facility] [address] [place] [address] [phone] * (ABNORMAL) PROTHROMBIN TIME WHOLE BLD POC (11/30/2022 11:01 AM EDT) Protime 21.3(H) 11.1 - 13.5 sec [facility] 11/30/2022 11:0 1 AM EDT 11/30/2022 11:04 AM EDT [facility] External Provider LAB BLO OD ORDERABLES Final Result Performing Organization Address [facility] de Phone Number [facility] [address] [place] [phone] * (ABNORMAL) ~PT, ~INR - ANTI [facility]AG CLINIC (11/30/2022 11:01 AM EDT) Prothrombin Time INR 1.8(H) 0.9 - 1.1 [facility] Comment:METER #: [id number] TERNATIONAL NORMALIZED RATIO (INR) REFERENCE RANGES Reference [...] 1 AM EDT 11/30/2022 11:04 AM EDT [facility] External Provider LAB BLO OD ORDERABLES Final Result Performing Organization Address [facility] de Phone Number [facility] [address] [place] [address] [phone] * (ABNORMAL) PROTHROMBIN TIME WHOLE BLD POC (11/09/2022 10:29 AM EDT) Protime 28.8(H) 11.1 - 13.5 sec [facility] 11/09/2022 10:2 9 AM EDT 11/09/2022 10:30 AM EDT Result [facility] External Provider LAB BLO OD ORDERABLES Final Result Performing Organization Address [facility] Phone Number [facility] [address] [place] [address] [phone] * (ABNORMAL) ~PT, ~INR - ANTI COAG CLINIC (11/09/2022 10:29 AM EDT) Prothrombin Time INR 2.4(H) 0.9 - 1.1 [facility] Comment:METER #: [id number] TERNATIONAL NORMALIZED RATIO (INR) REFERENCE RANGES Reference [...] AM EDT 11/09/2022 10:30 AM EDT Result [facility] External Provider LAB BLO OD ORDERABLES Final Result Performing Organization Address [facility] de Phone Number [facility] [address] [place] [phone] * (ABNORMAL) Basic Metabolic Panel (10/05/2022 10:02 AM EST) Sodium 146(H) 135 - 145 mmol/L [facility] Potassium 3.4 3.3 - 5.1 mmol/L [facility] Chloride 105 96 - 108 mmol/L [facility] Carbon Dioxide 29 22 - 29 mmol/L [facility] Anion Gap 15 12 - 20 [facility] Urea Nitrogen (BUN) 20(H) 9 - 16 mg/dL [facility] Creatinine, Serum 0.96 0.5 - 1.4 mg/dL [facility] Estimated Glomerular Filt Rate 55 [facility] Comment:NOTE: For -Am erican individuals, multiply the result by 1.210.Chronic Kidney Disease: Estimated GFR < 60 mL/min/[id number] Kidney Disease: Estimated GFR < 15 mL/min/1.73m2 Glucose 28(LL) 60 - 115 mg/dL [facility] Comment:Critical value for t est(GLUR): Results called to and readback by: TONI Guerra LPN Person calling: PATRICIA Date:10/05/22 Time: 1112 Calcium 9.3 8.4 - 10.2 mg/dL [facility] 10/05/2022 10:0 2 AM EST 10/05/2022 10:31 AM EST us [facility] External Provider LAB BLO OD ORDERABLES Final Result [facility] [address] [place] [phone] * (ABNORMAL) Prothrombin Time-INR (10/05/2022 10:02 AM EST) Prothrombin Time 72.7(H) 10.0 - 13.1 SEC [facility] INTERNATIONAL NORM RATIO 5.9(HH) 0.9 - 1.1 [facility] Comment:RESULTS OF INR VO D [...] 2 AM EST 10/05/2022 10:31 AM EST [facility] External Provider LAB BLO OD ORDERABLES Final Result [facility] [address] [place] [phone] * (ABNORMAL) CBC auto differential (10/05/2022 10:02 AM EST) White Blood Count 10.8 4.8 - 10.8 X10*3/uL [facility] Red Blood Count 4.02(L) 4.20 - 5.50 X10*6/uL [facility] Hemoglobin 12.3 12.0 - 16.0 g/dl [facility] Hematocrit 39.4 37.0 - 47.0 % [facility] Mean Corpuscular Volume 98.0 80.0 - 98.0 fL [facility] Mean Corpuscular Hemoglobin 30.6 27.0 - 33.0 pg [facility] Mean Corpuscular HGB Conc 31.2 31.0 - 35.0 g/dl [facility] Red Cell Distribution Width 13.4 11.0 - 16.0 % [facility] Platelet Count 217 160 - 400 X10*3/uL [facility] Mean Platelet Volume 10.9 9.4 - 12.3 fL [facility] Neutrophils Percent Auto 58.6 45 - 73 % [facility] Imm Gran Pct Auto 0.4 0.0 - 0.4 % [facility] Lymphocytes Percent Auto 31.5 20 - 40 % [facility] Monocytes Percent Auto 5.8 2 - 11 % [facility] Eosinophils Percent Auto 3.1 0 - 4 % [facility] Basophils Percent Auto 0.6 0 - 2 % [facility] NRBC Pct Auto 0.0 0.0 - 0.2 /100WBC [facility] Neutrophils Absolute Auto 6.3 2.0 - 8.3 x10*3/uL [facility] Imm Gran Abs Auto 0.04(H) 0.00 - 0.03 X10*3/uL [facility] Lymphocytes Absolute Auto 3.4 1.2 - 4.9 X10*3/uL [facility] Monocytes Absolute Auto 0.6 0.1 - 1.2 X10*3/uL [facility] Eosinophils Absolute Auto 0.3 0.0 - 0.4 X10*3/uL [facility] Basophils Absolute Auto 0.1 0.0 - 0.2 X10*3/uL [facility] NRBC Abs Auto 0.000 0.0 - 0.012 X10*3/uL [facility] 10/05/2022 10:0 2 AM EST 10/05/2022 10:31 AM EST us [facility] External Provider LAB BLO OD ORDERABLES Final Result [facility] [address] [place] [address] [phone] * (ABNORMAL) Prothrombin Time-INR (10/03/2022 2:57 PM EST) Prothrombin Time 92.9(H) 10.0 - 13.1 SEC [facility] INTERNATIONAL NORM RATIO 7.4(HH) 0.9 - 1.1 [facility] Comment:RESULTS OF INR VO D [...] PM EST 10/03/2022 3:20 PM EST us [facility] External Provider LAB BLO OD ORDERABLES Final Result Performing Organization Address City/State/[facility] Co de Phone Number [facility] [address] [place] [address] [phone] * (ABNORMAL) CBC auto differential (09/20/2022 11:35 AM EST) White Blood Count 9.1 4.8 - 10.8 X10*3/uL [facility] Red Blood Count 4.06(L) 4.20 - 5.50 X10*6/uL [facility] Hemoglobin 12.6 12.0 - 16.0 g/dl [facility] Hematocrit 39.2 37.0 - 47.0 % [facility] Mean Corpuscular Volume 96.6 80.0 - 98.0 fL [facility] Mean Corpuscular Hemoglobin 31.0 27.0 - 33.0 pg [facility] Mean Corpuscular HGB Conc 32.1 31.0 - 35.0 g/dl [facility] Red Cell Distribution Width 13.7 11.0 - 16.0 % [facility] Platelet Count 127(L) 160 - 400 X10*3/uL [facility] Mean Platelet Volume 11.2 9.4 - 12.3 fL [facility] Neutrophils Percent Auto 85.6(H) 45 - 73 % [facility] Imm Gran Pct Auto 0.2 0.0 - 0.4 % [facility] Lymphocytes Percent Auto 9.6(L) 20 - 40 % [facility] Monocytes Percent Auto 4.4 2 - 11 % [facility] Eosinophils Percent Auto 0.0 0 - 4 % [facility] Basophils Percent Auto 0.2 0 - 2 % [facility] NRBC Pct Auto 0.0 0.0 - 0.2 /100WBC [facility] Neutrophils Absolute Auto 7.7 2.0 - 8.3 x10*3/uL [facility] Imm Gran Abs Auto 0.02 0.00 - 0.03 X10*3/uL [facility] Lymphocytes Absolute Auto 0.9(L) 1.2 - 4.9 X10*3/uL [facility] Monocytes Absolute Auto 0.4 0.1 - 1.2 X10*3/uL [facility] Eosinophils Absolute Auto 0.0 0.0 - 0.4 X10*3/uL [facility] Basophils Absolute Auto 0.0 0.0 - 0.2 X10*3/uL [facility] NRBC Abs Auto 0.000 0.0 - 0.012 X10*3/uL [facility] 09/20/2022 11:3 5 AM EST 09/20/2022 11:39 AM EST [facility] External Provider LAB BLO OD ORDERABLES Final Result [facility] [address] [place] [address] [phone] * SARS-CoV-2 RNA, Influenza A/B, and RSV RNA, Ql NAAT (09/20/2022 11:34 AM EST) Influenza A PCR NEGATIVE Negative [facility] Influenza B PCR NEGATIVE Negative [facility] Resp Syncy Virus RNA Qual PCR NEGATIVE Negative [facility] SARS COV2 PCR NEGATIVE Negative [facility] SARS/Flu/RSV Note See Note [facility] Comment:All test results mus t be [...] use by authorized laboratories.Testing performed on the [facility] GeneXpert utilizingreal-time RT-PCR.All SARS CoV2 and positive influenza A/B results arereported to [facility]. 09/20/2022 11:3 4 AM EST 09/20/2022 11:51 AM EST [facility] Exter nal Provider LAB MICROBIOLOGY - GENERAL ORDERABLES Final Result Performing Organization Address City/[facility]/ZIP Co de Phone Number [facility] [address] [place] [phone] * TSH W/Reflex to FT4 (09/20/2022 11:34 AM EST) TSH reflex Free T4 0.75 0.32 - 4.0 uIU/mL [facility] 09/20/2022 11:3 4 AM EST 09/20/2022 11:39 AM EST [facility] External Provider LAB BLO OD ORDERABLES Final Result Performing Organization Address [facility] Co de Phone Number [facility] [address] [place] [address] [phone] * (ABNORMAL) B Type Natriuretic Peptide (BNP) (09/20/2022 11:34 AM EST) B Type Natriuretic Peptide 421(H) <100 pg/mL [facility] Comment:For those patients w ho are being treated with Natrecor(nesiritide, recombinant BNP), BNP testing should beperformed at least two hours post treatment in order toensure that only endogenous levels of BNP are detected. 09/20/2022 11:3 4 AM EST 09/20/2022 11:39 AM EST [facility] External Provider LAB BLO OD ORDERABLES Final Result Performing Organization Address [facility] de Phone Number [facility] [address] [place] [phone] * Lipase (09/20/2022 11:34 AM EST) Lipase 55 8 - 78 U/L [facility] 09/20/2022 11:3 4 AM EST 09/20/2022 11:39 AM EST [facility] External Provider LAB BLO OD ORDERABLES Final Result Performing Organization Address [facility] Phone Number [facility] [address] [place] [address] [phone] * Magnesium (09/20/2022 11:34 AM EST) Magnesium 1.6 1.6 - 2.6 mg/dL [facility] 09/20/2022 11:3 4 AM EST 09/20/2022 11:39 AM EST [facility] External Provider LAB BLO OD ORDERABLES Final Result Performing Organization Address [facility] de Phone Number [facility] [address] [place] [address] [phone] * (ABNORMAL) Comprehensive Metabolic Panel (09/20/2022 11:34 AM EST) Sodium 137 135 - 145 mmol/L [facility] Potassium 3.8 3.3 - 5.1 mmol/L [facility] Chloride 99 96 - 108 mmol/L [facility] Carbon Dioxide 30(H) 22 - 29 mmol/L [facility] Anion Gap 12 12 - 20 [facility] Urea Nitrogen (BUN) 22(H) 9 - 16 mg/dL [facility] Creatinine, Serum 1.08 0.5 - 1.4 mg/dL [facility] Creatinine Clr Calc Pharmacy 40.4 [facility] Comment:Provided height and weight: 157.48 cm,99.4 kg.eGFR (calculated from the MDRD study equation) and eCrCl(calculated from the Cockcroft-Gault equation) are based ondifferent parameters and may not yield comparable results.If eCrCl result is absurd, please check patient'sheight/weight. Estimated Glomerular Filt Rate 48 [facility] Comment:NOTE: For -Am erican individuals, multiply the result by 1.210.Chronic Kidney Disease: Estimated GFR < 60 mL/min/[id number] Kidney Disease: Estimated GFR < 15 mL/min/1.73m2 Glucose 253(H) 60 - 115 mg/dL [facility] Calcium 9.1 8.4 - 10.2 mg/dL [facility] Bilirubin, Total 0.8 0.0 - 1.0 mg/dL [facility] Aspartate Amino Transferase 24 5 - 31 U/L [facility] Alanine Aminotransferase 21 0 - 31 U/L [facility] Total Protein 7.1 6.5 - 8.0 g/dL [facility] Albumin Level 3.7 3.5 - 5.0 g/dL [facility] Alkaline Phosphatase 105 39 - 117 U/L [facility] 09/20/2022 11:3 4 AM EST 09/20/2022 11:39 AM EST us [facility] External Provider LAB BLO OD ORDERABLES Final Result [facility] [address] [place], [place] [phone] * Lactic Acid (09/20/2022 11:34 AM EST) Lactic Acid 1.1 0.5 - 2.0 mmol/L [facility] 09/20/2022 11:3 4 AM EST 09/20/2022 11:39 AM EST [facility] External Provider LAB BLO OD ORDERABLES Final Result Performing Organization Address [facility] Co de Phone Number [facility] [address] [place] [address] [phone] * (ABNORMAL) Prothrombin Time-INR (09/20/2022 11:34 AM EST) Prothrombin Time 18.3(H) 10.0 - 13.1 SEC [facility] INTERNATIONAL NORM RATIO 1.6(H) 0.9 - 1.1 [facility] Comment:INTERNATIONAL NORMAL IZED RATIO (INR) [...] 4 AM EST 09/20/2022 11:39 AM EST [facility] External Provider LAB BLO OD ORDERABLES Final Result Performing Organization Address [facility] Co de Phone Number [facility] [address] [place] [phone] * (ABNORMAL) PROTHROMBIN TIME WHOLE BLD POC (09/12/2022 10:21 AM EST) Protime 24.5(H) 11.1 - 13.5 sec [facility] 09/12/2022 10:2 1 AM EST 09/12/2022 10:22 AM EST [facility] External Provider LAB BLO OD ORDERABLES Final Result Performing Organization Address City/[facility] Co de Phone Number [facility] [address] [place] [address] [place] [phone] * (ABNORMAL) ~PT, ~INR - ANTI [facility] (09/12/2022 10:21 AM EST) Prothrombin Time INR 2.0(H) 0.9 - 1.1 [facility] Comment:METER #: [id number] TERNATIONAL NORMALIZED RATIO (INR) REFERENCE RANGES Reference [...] 1 AM EST 09/12/2022 10:22 AM EST [facility] External Provider LAB BLO OD ORDERABLES Final Result [facility] [address] [place] [phone] * (ABNORMAL) PROTHROMBIN TIME WHOLE BLD POC (08/29/2022 10:11 AM EST) Protime 20.9(H) 11.1 - 13.5 sec [facility] 08/29/2022 10:1 1 AM EST 08/29/2022 10:15 AM EST [facility] External Provider LAB BLO OD ORDERABLES Final Result [facility] [address] [place] [phone] * (ABNORMAL) ~PT, ~INR - ANTI COAG CLINIC (08/29/2022 10:11 AM EST) Prothrombin Time INR 1.7(H) 0.9 - 1.1 [facility] Comment:METER #: [id number] TERNATIONAL NORMALIZED RATIO (INR) REFERENCE RANGES Reference [...] 1 AM EST 08/29/2022 10:15 AM EST [facility] External Provider LAB BLO OD ORDERABLES Final Result Performing Organization Address [facility] Co de Phone Number [facility] [facility] [address] [place] [phone] * (ABNORMAL) PROTHROMBIN TIME WHOLE BLD POC (08/18/2022 1:12 PM EST) Protime 22.1(H) 11.1 - 13.5 sec [facility] 08/18/2022 1:12 PM EST 08/18/2022 1:14 PM EST [facility] External Provider LAB BLO OD ORDERABLES Final Result Performing Organization Address [facility] Co de Phone Number [facility] [address] [place] [phone] * (ABNORMAL) ~PT, ~INR - ANTI COAG CLINIC (08/18/2022 1:12 PM EST) Prothrombin Time INR 1.8(H) 0.9 - 1.1 [facility] Comment:METER #: [id number] TERNATIONAL NORMALIZED RATIO (INR) REFERENCE RANGES Reference [...] PM EST 08/18/2022 1:14 PM EST us [facility] External Provider LAB BLO OD ORDERABLES Final Result [facility] [address] [place] [address] [phone] documented in this encounter Visit Diagnoses Not on filedocumented in this encounter Care Teams Batch Records Clerk Relationship Specialty Start Date End Date Valeri Lerner DO [address] [place] [address] PCP - General Family Medicine 07/13/12 Batsheva Gomez PharmD [address] [place] [address] Pharmacist Internal Medicine 03/07/24 12/19/24 [employer] 12/08/23 documented as of this encounter
--- OUTSIDE RECORDS SUMMARY | 2025-05-27 20:22 | XMS_ITS | Encounter Summary ---
Author Organization [employer] Address [address] [facility] 7t [place] [address] Care Team Providers Care Quality Control Engineering Technician Name Role Phone Valeri Lerner DO Primary Care Provider Batsheva Gomez PharmD Unavailable [phone] Reason for Visit * Reason Onset Date Comments FYI 10/08/2024 Encounter Details Date Type Department Care Team (Late st Contact Info) Description 10/08/[address] [facility] MEDICINE [address] [place], [place] [phone] Valeri Lerner DO [address] [place], [place] [phone] Social History Tobacco Use Types Packs/Day Years [...] the past 12 months, has t he [employer], gas, oil or water [employer] threatened to shut off services in your [...] will like a callback TODAY from nurse [phone] documented in this encounter Plan of Treatment Upcoming Encounters Date Type Department Care Team (Late st Contact Info) Description 06/06/2025 11:30 AM EST Office Visit [facility] OPTOMETRY [address] [place] [address] Tod, Ai, OD [address] [place] [address] documented as of this encounter Goals Goal Patient Goal Type Associated Problems Recent Progress Patient-Stated? Author Patient will adhere to medication regimen General No Puia, Batsheva, PharmD Record your blood sugar as directed Result Component No Patricia, Batsheva, PharmD Note: Resume CGM. Ensure sensor [...] documented as of this encounter Care Teams Quality Control Engineering Technician Relationship Specialty Start Date End Date Valeri Lerner DO [address] [place] [address] PCP - General Family Medicine 07/13/12 Batsheva Gomez, Frankie [address] [place] [address] Pharmacist Internal Medicine 03/07/24 12/19/24 [employer] 12/08/23 documented as of this encounter
--- OUTSIDE RECORDS SUMMARY | 2025-05-27 20:22 | XMS_ITS | Encounter Summary ---
Author Organization [employer] Address [address] [facility] 7t [place] [address] Care Team Providers Care Outside Parts Sales Name Role Phone Valeri Lerner DO Primary Care Provider [phone] Encounter Details Date Type Department Care Team (Late st Contact Info) Description 05/27/2025 Orders Only GENERIC EXTERNAL DATA DEPARTMENT Provider, Generic External Data Social History Tobacco Use Types Packs/Day Years [...] 11:30 AM EST Office Visit [facility] OPTOMETRY [address] [place] [address] Tod, Ai, OD [address] [place] [address] documented as of this encounter Goals Goal [...] TO CULTURE Routine 05/27/2025 6:49 PM EDT INFLUENZA A B2 ID NOW (CROWE) Routine 05/27/2025 6:11 PM EDT COVID-19 ID NOW (CROWE) Routine 05/27/2025 6:11 PM EDT CBC WITH AUTO DIFFERENTIAL Routine 05/27/2025 6:11 PM EDT COMPREHENSIVE METABOLIC PANEL Routine 05/27/2025 6:11 PM EDT documented in this encounter Results * (ABNORMAL) Urinalysis, Complete, with Reflex to Culture (05/27/2025 6:49 PM EDT) Pathologist [facility] Color Urine Yellow [facility] Appearance Urine Clear [facility] PH 7.0 5.0 - 9.0 [facility] Glucose Urine UA >=1000(A) Negative mg/dL [facility] Urine Blood Negative Negative [facility] Specific [place] - Urine 1.020 1.005 - 1.025 [facility] Urine Protein Negative Neg-Trace mg/dL [facility] Urine Ketones Negative Negative mg/dL [facility] Nitrite Urine Negative Negative [facility] Leukocyte Esterase Urine Moderate (2+)(A) Negative [facility] RBC Urine 0-2 0 - 2 /HPF [facility] Urine WBC 21-50(A) 0 - 5 /HPF [facility] Urine Squamous Epithelial Cell 0-2 0 - 2 /HPF [facility] Urine Bacteria 4+ None Seen [facility] Hyaline Casts, Urine 0-2 0 - 2 /LPF [facility] 05/27/2025 6:49 PM EDT 05/27/2025 6:51 PM EDT Narrative [facility] - 05/27/2025 7:48 PM EDT Urine, Clean Catch us Generic External Data Provider LAB URINE ORDERAB LES Final Result [facility] [address] [place] [address] [phone] * (ABNORMAL) CBC auto differential (05/27/2025 6:11 PM EDT) [facility] White Blood Count 10.8 4.8 - 10.8 X10*3/uL [facility] Red Blood Count 3.95(L) 4.20 - 5.50 X10*6/uL [facility] Hemoglobin 12.2 12.0 - 16.0 g/dl [facility] Hematocrit 38.1 37.0 - 47.0 % [facility] Mean Corpuscular Volume 96.5 80.0 - 98.0 fL [facility] Mean Corpuscular Hemoglobin 30.9 27.0 - 33.0 pg [facility] Mean Corpuscular HGB Conc 32.0 31.0 - 35.0 g/dl [facility] Red Cell Distribution Width 14.6 11.0 - 16.0 % [facility] Platelet Count 179 160 - 400 X10*3/uL [facility] Mean Platelet Volume 11.3 9.4 - 12.3 fL [facility] Neutrophils Percent Auto 78.5(H) 45 - 73 % [facility] Imm Gran Pct Auto 0.4 0.0 - 0.4 % [facility] Lymphocytes Percent Auto 11.9(L) 20 - 40 % [facility] Monocytes Percent Auto 6.0 2 - 11 % [facility] Eosinophils Percent Auto 2.9 0 - 4 % [facility] Basophils Percent Auto 0.3 0 - 2 % [facility] NRBC Pct Auto 0.0 0.0 - 0.2 /100WBC [facility] Neutrophils Absolute Auto 8.4(H) 2.0 - 8.3 x10*3/uL [facility] Imm Gran Abs Auto 0.04(H) 0.00 - 0.03 X10*3/uL [facility] Lymphocytes Absolute Auto 1.3 1.2 - 4.9 X10*3/uL [facility] Monocytes Absolute Auto 0.7 0.1 - 1.2 X10*3/uL [facility] Eosinophils Absolute Auto 0.3 0.0 - 0.4 X10*3/uL [facility] Basophils Absolute Auto 0.0 0.0 - 0.2 X10*3/uL [facility] NRBC Abs Auto 0.000 0.0 - 0.012 X10*3/uL [facility] 05/27/2025 6:11 PM EDT 05/27/2025 6:15 PM EDT us Generic External Data Provider LAB BLOOD ORDERAB LES Final Result [facility] [address] [place] [address] [phone] * COVID-19 ID NOW (bunkersofa) (05/27/2025 6:11 PM EDT) IDNOW SERIAL# [id number] [facility] COVID-19 TEST Negative Negative [facility] COVID-19 NOTE See Note [facility] Comment: Results are for the identification of SARS-CoV2 RNA. TheSARS-CoV2 RNA is generally detectable in respiratory samplesduring the acute phase of infection. Positive results areindicative of the presence of SARS-CoV-2 RNA; clinicalcorrelation with patient history and other diagnosticinformation is necessary to determine patient infectionstatus. Positive results do not rule out bacterial infectionor co- infection with other viruses.Testing facilities within the [facility] and [facility] are required to report all positive results [...] use by authorized laboratories.Testing performed on the Cards Off ID NOW utilizing NAAT. 05/27/2025 6:11 PM EDT 05/27/2025 6:15 PM EDT Generic External Data Provider LAB MOLE[employer]ULAR [employer] ORDERABLES Final Result Performing Organization Address [facility] [[email or web address]] Co de Phone Number [facility] [address] [place] [address] [phone] * Influenza A B2 ID NOW (Crowe) (05/27/2025 6:11 PM EDT) IDNOW SERIAL# [id number] [facility] Influenza A Negative Negative [facility] Influenza B2 Negative Negative [facility] Influenza A B2 Note See Note [facility] Comment:The Crowe ID NOW In fluenza [...] GENERAL ORDERABLES Final Result Performing Organization Address [facility] de Phone Number [facility] [address] [place] [phone] * (ABNORMAL) Comprehensive Metabolic Panel (05/27/2025 6:11 PM EDT) Sodium 139 135 - 145 mmol/L [facility] Potassium 4.5 3.3 - 5.1 mmol/L [facility] Chloride 98 96 - 108 mmol/L [facility] Carbon Dioxide 34(H) 22 - 29 mmol/L [facility] Anion Gap 12 12 - 20 [facility] Urea Nitrogen (BUN) 38(H) 9 - 16 mg/dL [facility] Creatinine, Serum 1.24 0.5 - 1.4 mg/dL [facility] Creatinine Clr Calc Pharmacy 32.9 [facility] Comment:Provided height and weight: 157.48 cm,94.6 kg.eGFR (calculated from the MDRD study equation) and eCrCl(calculated from the Cockcroft-Gault equation) are based ondifferent parameters and may not yield comparable results.If eCrCl result is absurd, please check patient'sheight/weight. Estimated Glomerular Filt Rate 41 [facility] Comment:Chronic Kidney Disea se: Estimated GFR < 60 mL/min/1.56z3Tifwvt Kidney Disease: Estimated GFR < 15 mL/min/1.73m2 Glucose 219(H) 60 - 115 mg/dL [facility] Calcium 9.9 8.4 - 10.2 mg/dL [facility] Bilirubin, Total 0.6 0.0 - 1.0 mg/dL [facility] Aspartate Amino Transferase 28 5 - 31 U/L [facility] Alanine Aminotransferase 22 0 - 31 U/L [facility] Total Protein 7.9 6.5 - 8.0 g/dL [facility] Albumin Level 4.0 3.5 - 5.0 g/dL [facility] Alkaline Phosphatase 122(H) 39 - 117 U/L [facility] 05/27/2025 6:11 PM EDT 05/27/2025 6:15 PM EDT us Generic External Data Provider LAB BLOOD ORDERAB LES Final Result [facility] [address] [place] [address] [phone] documented in this encounter Visit Diagnoses Not on filedocumented in this encounter Additional Health Concerns Assessment Noted Time PHQ-9 Depression Total Score: 0 07/15/20 24 11:32 AM EST documented as of this encounter Care Teams Outside Parts Sales Relationship Specialty Start Date End Date Valeri Lerner DO [address] [place] [address] PCP - General Family Medicine 07/13/12 [employer] 12/08/23 documented as of this encounter
--- OUTSIDE RECORDS SUMMARY | 2025-05-27 20:22 | XMS_ITS | Encounter Summary ---
Author Organization [employer] Address [address] [place] [address] 7t [place] [address] Care Team Providers Care Financial Sales Representative Name Role Phone Valeri Lerner DO Primary Care Provider [phone] Batsheva Gomez PharmD Unavailable [phone] Encounter Details Date Type Department Care Team (Late st Contact Info) Description 09/23/2022 Abstract [facility] [address] [place], [place] [phone] Valeri Lerner DO [address] [place] [address] Social History Tobacco Use Types Packs/Day Years [...] 06/06/2025 11:30 AM EST Office Visit [facility] OPTOMETRY [address] [place], [place] [phone] Ai Baron, OD [address] [place] [address] documented as of this encounter Visit Diagnoses Not on filedocumented in this encounter Care Teams Financial Sales Representative Relationship Specialty Start Date End Date Valeri Lerner DO [address] [place], [place] [phone] PCP - General Family Medicine 07/13/12 Batsheva Gomez, Frankie [address] [place] [address] [phone] Pharmacist Internal Medicine 03/07/24 12/19/24 [employer] 12/08/23 documented as of this encounter
--- OUTSIDE RECORDS SUMMARY | 2025-05-27 20:22 | XMS_ITS | Encounter Summary ---
Author Organization [employer] Address [address] [facility] 7t [place] [address] Care Team Providers Care Industrial Gas Service Helper Name Role Phone Valeri Lerner DO Primary Care Provider [phone] Batsheva Gomez PharmD Unavailable [phone] Encounter Details Date Type Department Care Team (Late st Contact Info) Description 01/26/2024 Telephone [facility] MEDICINE [address] [place], [place] [phone] Valeri Lerner DO [address] [place], [place] [phone] Social History Tobacco Use Types Packs/Day Years [...] 11:30 AM EST Office Visit [facility] OPTOMETRY [address] [place] [address] Tod, Ai, OD [address] [place] [address] documented as of this encounter Visit Diagnoses Not on filedocumented in this encounter Additional Health Concerns Assessment Noted Time PHQ-9 Depression Total Score: 2 08/23/19 24 11:01 AM EST documented as of this encounter Care Teams Industrial Gas Service Helper Relationship Specialty Start Date End Date Valeri Lerner DO [address] [place] [address] PCP - General Family Medicine 07/13/12 Batsheva Gomez PharmD [address] [place] [address] Pharmacist Internal Medicine 03/07/24 12/19/24 [employer] 12/08/23 documented as of this encounter
--- OUTSIDE RECORDS SUMMARY | 2025-05-27 20:22 | XMS_ITS | Clinical Summary ---
Author Organization [facility] Address [address] [place] [address] Phone Care Team Providers Care Community Development Coordinator Name Role Phone Unavailable Primary Care Provider [...] It is not the complete legal health record.[facility]
--- OUTSIDE RECORDS SUMMARY | 2025-05-27 20:22 | XMS_ITS | Encounter Summary ---
Author Organization [employer] Address 75 [facility] 7t [place] [address] Care Team Providers Care Program Strategist Name Role Phone aVleri Lerner DO Primary Care Provider [phone] Batsheva Gomez PharmD Unavailable [phone] Reason for Visit * Reason Comments Med Refill Encounter Details Date Type Department Care Team (Late st Contact Info) Description 06/20/2023 Refill [facility] MEDICINE [address] [place], [place] [phone] Valeri Lerner DO [address] [place], [place] [phone] Generalized anxiety disorder Social History Tobacco Use [...] Description 06/06/2025 11:30 AM EST Office Visit [facility] OPTOMETRY [address] [place] [address] TodAi raman, OD [address] [place] [address] documented as of this encounter Visit Diagnoses Diagnosis Generalized anxiety disorder documented in this encounter Care Teams Program Strategist Relationship Specialty Start Date End Date Valeri Lerner DO [address] [place] [address] PCP - General Family Medicine 07/13/12 Batsheva Gomez PharmD [address] [place] [address] Pharmacist Internal Medicine 03/07/24 12/19/24 [employer] 12/08/23 documented as of this encounter
--- OUTSIDE RECORDS SUMMARY | 2025-05-27 20:22 | XMS_ITS | Patient Health Record ---
Author Organization [employer] Address [address] [place] [address] Care Team Providers Care System Manager Name Role Phone [place] Garsia Unavailable [phone] Reason For Referral No Information Plan Of Treatment No Information
--- OUTSIDE RECORDS SUMMARY | 2025-05-27 20:23 | XMS_ITS | Encounter Summary ---
Author Organization [employer] Address [address] [place] [address] 7t [place] [address] Care Team Providers Care Coal Passer Name Role Phone Valeri Lerner DO Primary Care Provider [phone] Batsheva Gomez PharmD Unavailable [phone] Encounter Details Date Type Department Care Team (Latest Contact Info) Description 11/11/2020 Abstract [facility] CONVERSIONS Dental, Provider, DDS Social History [...] Care Team ( st Contact Info) Description 06/06/2025 11:30 AM EST Office Visit [facility] OPTOMETRY [address] [place] [address] Ai Baron, OD [address] [place] [address] documented as of this encounter Visit Diagnoses Not on filedocumented in this encounter Care Teams Coal Passer Relationship Specialty Start Date End Date Valeri Lerner DO [address] [place] [address] PCP - General Family Medicine 07/13/12 Batsheva Gomez, Frankie [address] [place] [address] Pharmacist Internal Medicine 03/07/24 12/19/24 [employer] 12/08/23 documented as of this encounter
--- OUTSIDE RECORDS SUMMARY | 2025-05-27 20:23 | XMS_ITS | Encounter Summary ---
Author Organization [facility] Address [address] [place] [phone] Care Team Providers Care Community Marketing Coordinator Name Role Phone Valeri Lerner DO Primary Care Provider [phone] Encounter Details Date Type Department Care Team (Late st Contact Info) Description 11/01/2024 Lab Requisition [facility] - Main Lab [address] [facility] [place] [address] Amrita Polanco MD [address] [place] [address] Heart failure, unspecified (CMS/HCC V24, CMS/HCC V28) [...] sec LAB COAGULATION METHOD 11/01/2024 9:58 AM [facility] INR 1.2 LAB COAGULATION METHOD 11/01/2024 9:58 AM [facility] Blood Venous blood specimen / Unknown Venipuncture / Unknown 11/01/2024 6:48 AM EDT 11/01/2024 9:35 AM EDT us Amrita Polanco MD LAB BLOOD ORDERABLES Final Resu lt [facility] ([facility]) [facility] [address] [place] [address], documented in this encounter Visit Diagnoses Diagnosis Heart failure, unspecified (CMS/HCC V24, CMS/HCC V28) Heart failure, unspecified documented in this encounter Care Teams Community Marketing Coordinator Relationship Specialty Start Date End Date Valeri Lerner DO [address] [place] [address] PCP - General 11/15/14 documented as of this encounter
--- OUTSIDE RECORDS SUMMARY | 2025-05-27 20:23 | XMS_ITS | Clinical Summary ---
Author Organization [address] Address [address] [place] [address] Phone Care Team Providers Care Building Architectural Designer Name Role Phone Valeri Lerner DO Primary Care Provider [phone] Social History Tobacco Use Types Packs/Day Years [...] LAB CHEMISTRY METHOD 10/30/2024 1:50 PM EDT [facility] Mean Bld Glu Estim. 166 mg/dL LAB CHEMISTRY METHOD 10/30/2024 1:50 PM EDT [facility] Blood Venous blood specimen / Unknown Venipuncture / Unknown 10/30/2024 7:51 AM EDT 10/30/2024 10:03 AM EDT us Kymbelry Horne MD LAB BLOOD ORDERABLES Fin al Result [facility] [address] [place] [address], * (ABNORMAL) Basic metabolic panel (10/22/2024 6:16 AM EDT) Sodium 142 133 - 145 mmol/L LAB CHEMISTRY METHOD 10/22/2024 11:07 AM [facility] Potassium 3.6 3.5 - 5.5 mmol/L LAB CHEMISTRY METHOD 10/22/2024 11:07 AM [facility] Chloride 105 96 - 110 mmol/L LAB CHEMISTRY METHOD 10/22/2024 11:07 AM [facility] CO2 30 21 - 32 mmol/L LAB CHEMISTRY METHOD 10/22/2024 11:07 AM [facility] Anion Gap 7 3 - 11 LAB CHEMISTRY METHOD 10/22/2024 11:07 AM [facility] Glucose 85 70 - 100 mg/dL LAB CHEMISTRY METHOD 10/22/2024 11:07 AM [facility] BUN 22 5 - 25 mg/dL LAB CHEMISTRY METHOD 10/22/2024 11:07 AM [facility] Creatinine 1.22(H) 0.50 - 1.10 mg/dL LAB CHEMISTRY METHOD 10/22/2024 11:07 AM [facility] eGFR 43(L) >=60 mL/min/1. 73m2 LAB CHEMISTRY METHOD 10/22/2024 11:07 AM [facility] Comment:Calculation based on the Chronic Kidney Disease Epidemiology Collaboration (CKD-EPI) equation refit without adjustment for race. BUN/Creatinine Ratio 18.0 LAB CHEMISTRY METHOD 10/22/2024 11:07 AM [facility] Calcium 9.9 8.5 - 10.5 mg/dL LAB CHEMISTRY METHOD 10/22/2024 11:07 AM EDT [facility] Blood Venous blood specimen / Unknown Venipuncture / Unknown 10/22/2024 6:16 AM EDT 10/22/2024 9:34 AM EDT us Amrita Polanco MD LAB BLOOD ORDERABLES Final Resu lt [facility] ([facility] [[email or web address] [address] [place] [address], [place] [phone] from Last 3 Months or Most Recently Relevant to Health Maintenance Insurance [facility] [place]ICAID - [place] Care Teams Building Architectural Designer Relationship Specialty Start Date End Date Valeri Lerner DO [address] [place], [place] PCP - General 11/15/14
--- OUTSIDE RECORDS SUMMARY | 2025-05-27 20:23 | XMS_ITS | Encounter Summary ---
Author Organization [facility] Address [address] [place] [id number] Care Team Providers Care Field Training Agent Name Role Phone Valeri Lerner DO Primary Care Provider +1- [phone] Encounter Details Date Type Department Care Team (Latest Contact Info) Description 10/22/[address] [facility] - Main Lab [address] [facility] [place] [address] Amrita Polanco MD [address] [place] [phone] Essential (primary) hypertension; Unspecified atrial fibrillation (CMS/HCC [...] mmol/L LAB CHEMISTRY METHOD 10/22/2024 11:07 AM [facility] Potassium 3.6 3.5 - 5.5 mmol/L LAB CHEMISTRY METHOD 10/22/2024 11:07 AM [facility] Chloride 105 96 - 110 mmol/L LAB CHEMISTRY METHOD 10/22/2024 11:07 AM [facility] CO2 30 21 - 32 mmol/L LAB CHEMISTRY METHOD 10/22/2024 11:07 AM [facility] Anion Gap 7 3 - 11 LAB CHEMISTRY METHOD 10/22/2024 11:07 AM [facility] Glucose 85 70 - 100 mg/dL LAB CHEMISTRY METHOD 10/22/2024 11:07 AM [facility] BUN 22 5 - 25 mg/dL LAB CHEMISTRY METHOD 10/22/2024 11:07 AM [facility] Creatinine 1.22(H) 0.50 - 1.10 mg/dL LAB CHEMISTRY METHOD 10/22/2024 11:07 AM [facility] eGFR 43(L) >=60 mL/min/1. 73m2 LAB CHEMISTRY METHOD 10/22/2024 11:07 AM [facility] Comment:Calculation based on the Chronic Kidney Disease Epidemiology Collaboration (CKD-EPI) equation refit without adjustment for race. BUN/Creatinine Ratio 18.0 LAB CHEMISTRY METHOD 10/22/2024 11:07 AM [facility] Calcium 9.9 8.5 - 10.5 mg/dL LAB CHEMISTRY METHOD 10/22/2024 11:07 AM [facility] Blood Venous blood specimen / Unknown Venipuncture / Unknown 10/22/2024 6:16 AM EDT 10/22/2024 9:34 AM EDT us Amrita Polanco MD LAB BLOOD ORDERABLES Final Resu lt [facility] [address] [place] [address], [place] [phone] * (ABNORMAL) Prothrombin time with INR (10/22/2024 6:16 AM EDT) Pathologist [facility] Protime 36.0(H) 10.6 - 13.9 sec LAB COAGULATION METHOD 10/22/2024 10:31 AM EDT [facility] INR 2.9 LAB COAGULATION METHOD 10/22/2024 10:31 AM EDT [facility] Blood Venous blood specimen / Unknown Venipuncture / Unknown 10/22/2024 6:16 AM EDT 10/22/2024 9:34 AM EDT us Amrita Polanco MD LAB BLOOD ORDERABLES Final Resu lt Performing Organization Address [facility]/ZIP Co de Phone Number [facility] [address] [place] [address], [place] [phone] * (ABNORMAL) Complete blood count (10/22/2024 6:16 AM EDT) [facility] WBC 9.2 4.8 - 10.8 K/[facility] LAB HEMETOLOGY METHOD 10/22/2024 10:30 AM EDT [facility] RBC 3.70(L) 3.80 - 4.80 M/[facility] LAB HEMETOLOGY METHOD 10/22/2024 10:30 AM EDT [facility] Hemoglobin 11.4(L) 11.5 - 16.0 g/dL LAB HEMETOLOGY METHOD 10/22/2024 10:30 AM EDT [facility] Hematocrit 35.8 35.0 - 47.0 % LAB HEMETOLOGY METHOD 10/22/2024 10:30 AM EDT [facility] MCV 96.8 79.0 - 98.0 FL LAB HEMETOLOGY METHOD 10/22/2024 10:30 AM EDT [facility] MCH 30.8 27.0 - 32.0 pcg LAB HEMETOLOGY METHOD 10/22/2024 10:30 AM EDT [facility] MCHC 31.8(L) 32.0 - 37.0 g/dL LAB HEMETOLOGY METHOD 10/22/2024 10:30 AM EDT [facility] RDW 13.8 11.0 - 15.0 % LAB HEMETOLOGY METHOD 10/22/2024 10:30 AM EDT [facility] Platelets 328 130 - 400 K/mcL LAB HEMETOLOGY METHOD 10/22/2024 10:30 AM EDT [facility] MPV 10.9 7.0 - 11.0 FL LAB HEMETOLOGY METHOD 10/22/2024 10:30 AM EDT [facility] NRBC 0.0 <1.0 % LAB HEMETOLOGY METHOD 10/22/2024 10:30 AM EDT [facility] NRBC Absolute 0.00 <0.10 K/mcL LAB HEMETOLOGY METHOD 10/22/2024 10:30 AM [facility] Blood Venous blood specimen / Unknown Venipuncture / Unknown 10/22/2024 6:16 AM EDT 10/22/2024 9:34 AM EDT us Amrita Polanco MD LAB BLOOD ORDERABLES Final Resu lt [facility] [address] [place] [address], documented in this encounter Visit Diagnoses Diagnosis Essential (primary) hypertension Unspecified essential hypertension Unspecified atrial fibrillation (CMS/HCC V24, CMS/HCC V28) Type 2 diabetes mellitus without complications (CMS/HCC V24, CMS/HCC V28) documented in this encounter Care Teams Field Training Agent Relationship Specialty Start Date End Date Valeri Lerner DO [address] [place], [place] PCP - General 11/15/14 documented as of this encounter
--- OUTSIDE RECORDS SUMMARY | 2025-05-27 20:23 | XMS_ITS | Encounter Summary ---
Author Organization [facility] Address [address] [place] [phone] Care Team Providers Care Thoracic Surgeon Name Role Phone Valeri Lerner DO Primary Care Provider +1- [phone] Encounter Details Date Type Department Care Team (Late st Contact Info) Description 11/04/2024 Lab Requisition [facility] - Main Lab [address] [facility] [place] [address] Amrita Polanco MD [address] [place] [id number] Unspecified atrial fibrillation (CMS/HCC V24, CMS/HCC V28) [...] sec LAB COAGULATION METHOD 11/04/2024 11:56 AM [facility] INR 1.4 LAB COAGULATION METHOD 11/04/2024 11:56 AM [facility] Blood Venous blood specimen / Unknown Venipuncture / Unknown 11/04/2024 8:39 AM EDT 11/04/2024 11:00 AM EDT us Amrita Polanco MD LAB BLOOD ORDERABLES Final Resu lt [facility] [address] [place] [address], documented in this encounter Visit Diagnoses Diagnosis Unspecified atrial fibrillation (CMS/HCC V24, CMS/HCC V28) documented in this encounter Care Teams Thoracic Surgeon Relationship Specialty Start Date End Date Valeri Lerner DO [address] [place] [address] PCP - General 11/15/14 documented as of this encounter
--- OUTSIDE RECORDS SUMMARY | 2025-05-27 20:23 | XMS_ITS | Encounter Summary ---
Author Organization [facility] Address [address] [place] [phone] Care Team Providers Care Environmental Protection Officer Name Role Phone Valeri Lerner DO Primary Care Provider +1- [phone] Encounter Details Date Type Department Care Team (Late st Contact Info) Description 10/30/2024 Lab Requisition [facility] - Main Lab [address] [place] [address] Kymberly Horne MD [address] [phone] Type 2 diabetes mellitus without complications (CMS/HCC [...] LAB CHEMISTRY METHOD 10/30/2024 1:50 PM EDT [facility] Mean Bld Glu Estim. 166 mg/dL LAB CHEMISTRY METHOD 10/30/2024 1:50 PM EDT [facility] Blood Venous blood specimen / Unknown Venipuncture / Unknown 10/30/2024 7:51 AM EDT 10/30/2024 10:03 AM EDT us Kymberly Horne MD LAB BLOOD ORDERABLES Fin al Result [facility] [address] [place] [address], documented in this encounter Visit Diagnoses Diagnosis Type 2 diabetes mellitus without complications (CMS/HCC V24, CMS/HCC V28) documented in this encounter Care Teams Environmental Protection Officer Relationship Specialty Start Date End Date Valeri Lerner DO [address] [place] [address] PCP - General 11/15/14 documented as of this encounter
--- OUTSIDE RECORDS SUMMARY | 2025-05-27 20:23 | XMS_ITS | Encounter Summary ---
Author Organization [employer] Address [address] [facility] [address] [place] [address] Care Team Providers Care Pickers Material Handlers Name Role Phone Valeri Lerner DO Primary Care Provider Batsheva Gomez PharmD Unavailable Reason for Visit * Reason Onset Date Comments Nurse Triage 03/25/2024 Encounter Details Date Type Department Care Team (Late st Contact Info) Description 03/25/2024 Telephone [facility] [address] [place], [place] [phone] Valeri Lerner DO [address] [place], [place] [phone] Nurse Triage Social History Tobacco Use Types [...] the past 12 months, has t he [employer], gas, oil or water [employer] threatened to shut off services in your [...] outcome Contact pt visiting nurse Artemio at [phone] documented in this encounter Plan of Treatment Upcoming Encounters Date Type Department Care Team (Late st Contact Info) Description 06/06/2025 11:30 AM EST Office Visit [facility] [address] [place] [address] TodAi raman, OD [address] [place] [address] documented as of this encounter Goals Goal [...] documented as of this encounter Care Teams Pickers Material Handlers Relationship Specialty Start Date End Date Valeri Lerner DO [address] [place] [address] PCP - General Family Medicine 07/13/12 Batsheva Gomez, PharmD [address] [place] [address] Pharmacist Internal Medicine 03/07/24 12/19/24 [employer] 12/08/23 documented as of this encounter
--- NOTE | 2025-05-27 21:41 | MHC.EDTECH ---
Pt incontinent of urine. Complete bedding change done and new purewick placed.
[2025-05-27 21:47] LABS: Glucose, Whole Blood 145 mg/dL (60-115)
--- NOTE | 2025-05-27 22:10 | MHC.CM.ED ---
Addendum entered by Eli Evangelista 05/27/25 22:49: HCP on file. HCP/chloe #1Hivis Morgan ([phone]) and HCP#2/daughter Catarina Sethi ([phone]). Catarina present at bedside. She verifies PCP and Insurance. Is agreeable to STR if recommended. States her mother came home today and she could not walk. She is agreeable to local referrals. No [place]. First choice is [facility]. Not yet medically cleared. Original Note: Pt was admitted to [facility] with CHF from 05/23-05/27. Pt declined STR at that time. PT is pending. Pt is A&Ox3. Poor historian. Lives alone. 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 States she uses a walker. PCP is Valeri Michaels. Pt is unsure about insurance coverage. CM explained that PT would see her again and that she would probably need STR. Pt has qualifying stay. CM called her daughter, Catarina ([phone]). She states she will be in to the hospital shortly. CM will wait to speak with daughter before making referrals.
--- NOTE | 2025-05-27 22:25 | PC.NURSE ---
Sepsis protocol initiated at 22:02 by RUTH Ramirez. 20g IV access established by this RN to right AC. Lactic acid & blood cultures x2 drawn per [facility] protocols. Medicated as ordered. Care ongoing by this RN.
--- NOTE | 2025-05-27 23:38 | ED.GENADULT ---
HPI - General Adult General Chief complaint: Weakness Stated complaint: Weakness - told to come back for SNF placement Time Seen by Provider: 05/27/25 20:15 Source: patient and family Limitations: language barrier History of Present Illness ED Provider: Angelic Ramirez PA-C HPI narrative: 89yo F with DM2, HFrEF, hypothyroidism, HTN, pAF and DVT on warfarin with hx IVC filter placement, with recent hospital admission on May 23 through May 27 for acute on chronic systolic heart failure, presents with a weakness. Patient was just discharged today. When she returned home, her BULB FILLER was unable to help with her activities of daily living secondary to her generalized weakness. Per the daughter, the patient was offered short-term rehab, she declined and wanted to go home. Patient denies dysuria, new cough cold symptoms or known fever. Related Data Home Medications ?Medication ?Instructions ?Recorded ?Confirmed atorvastatin 20 mg tablet 20 mg PO BEDTIME 05/21/20 05/27/25 blood sugar diagnostic #10 ea 05/21/20 03/22/24 cholecalciferol (vitamin D3) 50 50 mcg PO DAILY 05/21/20 05/27/25 mcg (2,000 unit) tablet fluticasone propionate 50 2 spray intranasal DAILY 05/21/20 05/27/25 mcg/actuation nasal spray,suspension lancets #100 ea 05/21/20 03/22/24 levothyroxine 100 mcg tablet 100 mcg PO DAILY@0600 05/21/20 05/27/25 omeprazole 20 mg capsule,delayed 20 mg PO BID@0630,1630 05/21/20 05/27/25 release pen needle, diabetic 32 gauge x #50 ea 05/21/20 03/22/24/32 sertraline 50 mg tablet 50 mg PO DAILY 05/21/20 05/27/25 nebulizers (Sidestream misc) #1 ea 05/14/21 03/22/24 docusate sodium 100 mg capsule 100 mg PO BID 04/19/23 05/27/25 acetaminophen 650 mg 650 mg PO Q8H PRN Pain/Fever 02/09/24 05/27/25 tablet,extended release ciclopirox 0.77 % topical cream 1 appl topical BID PRN fungal 09/16/24 05/27/25 infection insulin glargine 100 unit/mL (3 26 unit subcut DAILY 09/16/24 05/27/25 mL) subcutaneous pen (Lantus Solostar U-100 Insulin) semaglutide 0.25 mg or 0.5 mg (2 0.5 mg subcut DURON 09/16/24 05/27/25 mg/3 mL) subcutaneous pen injector (Ozempic) solifenacin 10 mg tablet 10 mg PO DAILY 09/16/24 05/27/25 warfarin 4 mg tablet 4 mg PO DAILY@1800 10/11/24 05/27/25 fluticasone 500 mcg-salmeterol 50 1 ea inhalation BID 02/13/25 05/27/25 mcg/dose blistr powdr for inhalation (Wixela Inhub) metformin 500 mg tablet,extended 500 mg PO BIDWM 02/13/25 05/27/25 release 24 hr multivitamin-iron sulfate 15 1 tab PO DAILY 02/13/25 05/27/25 mg-folic acid 400 mcg tablet (Tab-A-Judith Multivitamin w-iron) albuterol sulfate 90 mcg/actuation 2 puff inhalation Q6H PRN wheezing 05/23/25 05/27/25 aerosol inhaler cetirizine 10 mg tablet 5 mg PO DAILY 05/23/25 05/27/25 diclofenac sodium 1 % topical gel 4 g topical QID PRN Pain 05/23/25 05/27/25 magnesium oxide 400 mg (241.3 mg 400 mg PO DAILY 05/23/25 05/27/25 magnesium) tablet Previous Rx's ?Medication ?Instructions ?Recorded polyethylene glycol 3350 17 gram 17 g PO DAILY #7 ea 10/21/24 oral powder packet empagliflozin 10 mg tablet 10 mg PO DAILY #30 tabs 05/27/25 (Jardiance) furosemide 20 mg tablet 60 mg PO DAILY #60 tabs 05/27/25 cephalexin 500 mg capsule 500 mg PO BID 7 days #14 caps 05/28/25 Allergies Allergy/AdvReac Type Severity Reaction Status Date / Time shellfish derived Allergy Severe Hives Verified 05/27/25 17:39 aspirin (Aspirin) Allergy Mild Gastrointestinal Verified 05/27/25 17:39 Upset ibuprofen Allergy Unknown Unknown Verified 05/27/25 17:39 oxycodone (From PERCOCET) Allergy Unknown PALPITATION Verified 05/27/25 17:39 S Robitussin Cold Cough+ Chest Allergy Intermediate hives Uncoded 05/23/25 14:08 SEAFOOD Allergy Intermediate hives Uncoded 05/23/25 14:08 [facility] Past Medical History Medical History Prolonged QT interval Prolonged QT interval Heart block Hypertension CHF (congestive heart failure) Pneumonia Multiple falls Acute on chronic respiratory failure with hypoxemia Weakness Urgency incontinence Menopause Well woman exam Current use of anticoagulant therapy Stenosis of carotid artery Diabetes type 2, controlled Sepsis Gastroenteritis Hypoxia Pneumonia Urinary incontinence Obesity due to excess calories Type 2 diabetes mellitus with diabetic polyneuropathy Senile cataract of left eye Essential hypertension Hyperlipemia Paroxysmal A-fib Anxiety disorder Hypothyroidism Coronary artery disease History of cerebrovascular accident Osteoarthritis Osteopenia Deep vein thrombosis Hearing loss Surgical History H/O colonoscopy H/O breast surgery S/P IVC filter History of bilateral tubal ligation Family History Family History Father Heart disease CVD (cardiovascular disease) Mother Diabetes Social History Social History Household Members: Family and None Housing: House Do you presently have visiting nurse or other home services: Yes Alcohol intake: never Comment: Luda WATSON Patient Tobacco Use Status: Former Tobacco user Tobacco use type: Cigarette Advance Directives Date on File: 07/01/22 service: No Current occupational status: unemployed Sexual orientation: Straight/Heterosexual Gender identity: Female Physical Exam ED Vital Signs: Vital Signs - 24 hr 05/28/25 06:10 05/28/25 08:20 05/28/25 08:30 Temperature 97.6 F Pulse Rate 61 87 Respiratory Rate 16 16 Blood Pressure 130/66 130/66 Pulse Oximetry 97 Oxygen Delivery Method Nasal Cannula Oxygen Flow Rate 2 BMI result Body Mass Index 38.1 Course Reevaluation(s) Reevaluation #1: At 9:58 p.m. on May 27, a sepsis focused exam was performed. I was not aware of the patient was febrile, her nurse did not notify me. Her screening labs have already been obtained, adding on blood cultures, lactic, given a 500 mL fluid bolus and starting ceftriaxone, giving Tylenol for fever. Time: 21:58 Reevaluation #2: lactic 0.8 Reevaluation #3: Time: 01:57 Date: 05/28/25 Provider: RUTH Flood Patient in physician observation for case management needs. No acute events reported overnight.? No current issues or complaints. VS stable. Patient is pending placement at facility/pending PT/CM eval. Will continue to monitor. Additional Reevaluation(s): Time: 08:17 Date: 05/28/25 Provider: RUTH Shin Patient in physician observation for case management needs. No acute events reported overnight.? No current issues or complaints. VS stable. Awaiting case management disposition Time: 11:20 Date: 05/28/25 Provider: RUTH Shin Physician observation ended at 11:20AM. Patient will be discharged to [facility] at 12:00 p.m. this afternoon. Medications Administered Discontinued Medications Generic Name Dose Route Start Last Admin Trade Name Freq PRN Reason Stop Dose Admin Acetaminophen 975 mg 05/27/25 21:58 05/27/25 22:20 Acetaminophen 325 Mg Tablet PO 05/27/25 21:59 975 mg ONCE ONE Administration Cephalexin HCl 500 mg 05/28/25 09:00 05/28/25 08:22 Cephalexin 500 Mg Capsule PO 06/03/25 09:00 500 mg BID GER Administration Docusate Sodium 100 mg 05/28/25 09:00 05/28/25 08:23 Docusate Sodium 100 Mg Capsule PO 100 mg BID GER Administration Empagliflozin 10 mg 05/28/25 09:00 05/28/25 08:21 Empagliflozin 10 Mg Tablet PO 10 mg DAILY GER Administration Fluticasone Propionate 2 spray 05/28/25 09:00 05/28/25 08:46 Fluticasone Propionate Nasal 16 Gm [place] NOSTRIL-B 2 spray DAILY GER Administration Fluticasone/Vilanterol 1 puff 05/28/25 08:00 05/28/25 08:30 Fluticasone/Vilanterol 200/25 Blst.W.Dev INHALE 1 puff RDAILY GER Administration Furosemide 60 mg 05/28/25 09:00 05/28/25 08:20 Furosemide 20 Mg Tablet PO 60 mg DAILY GER Administration Protocol Sodium Chloride 500 mls @ 500 mls/hr 05/27/25 21:58 05/28/25 00:20 Ns IV 05/27/25 22:57 Infused .Q1H ONE Infusion Ceftriaxone Sodium 2 gm/ 50 mls @ 100 mls/hr 05/27/25 21:58 05/27/25 22:50 Sodium Chloride IV 05/27/25 22:27 Infused ONCE ONE Infusion Insulin Glargine 26 unit 05/28/25 09:00 05/28/25 08:23 Insulin Glargine,Hum.Rec.Anlog 100 Unit/Ml 10 Ml Vial SUBCUT 26 unit DAILY GER Administration Levothyroxine Sodium 100 mcg 05/28/25 06:00 05/28/25 05:38 Levothyroxine Sodium 100 Mcg Tablet PO 100 mcg DAILY@0600 GER Administration Loratadine 10 mg 05/28/25 09:00 05/28/25 08:22 Loratadine 10 Mg Tablet PO 10 mg DAILY GER Administration Magnesium Oxide 400 mg 05/28/25 09:00 05/28/25 08:21 Magnesium Oxide 400 Mg Tablet PO 400 mg DAILY GER Administration Metformin HCl 500 mg 05/28/25 08:00 05/28/25 08:21 Metformin Hcl Er 500 Mg Tab.Er.24h PO 500 mg BIDWM GER Administration Multivitamins/Vitamin C 1 tab 05/28/25 09:00 05/28/25 08:21 Multivitamin Tablet PO 1 tab DAILY GER Administration Omeprazole 20 mg 05/28/25 06:30 05/28/25 05:38 Omeprazole 20 Mg Capsule.Dr PO 20 mg BID@0630,1630 GER Administration Polyethylene Glycol 17 gm 05/28/25 09:00 05/28/25 08:23 Polyethylene Glycol 3350 17 Gm Powd.Pack PO 17 gm DAILY GER Administration Sertraline HCl 50 mg 05/28/25 09:00 05/28/25 08:22 Sertraline Hcl 50 Mg Tablet PO 50 mg DAILY GER Administration Tolterodine Tartrate 4 mg 05/28/25 09:00 05/28/25 08:45 Tolterodine Tartrate La 4 Mg Cap.Er.24h PO 4 mg DAILY GER Administration Vitamin D 50 mcg 05/28/25 09:00 05/28/25 08:22 Cholecalciferol (Vitamin D3) 25 Mcg Tablet PO 50 mcg DAILY GER Administration Medical Decision Making Medical Decision Making MDM Narrative: 89yo F with DM2, HFrEF, hypothyroidism, HTN, pAF and DVT on warfarin with hx IVC filter placement, with recent hospital admission on May 23 through May 27 for acute on chronic systolic heart failure, presents with a weakness. Patient was just discharged today. When she returned home, her BULB FILLER was unable to help with her activities of daily living secondary to her generalized weakness. Per the daughter, the patient was offered short-term rehab, she declined and wanted to go home. Patient denies dysuria, new cough cold symptoms or known fever. Problem: Age, heart failure, diabetes, AFib History: Per patient's daughter primarily I have considered the following differential diagnoses: Sepsis, UTI, pneumonia, viral syndrome Plan: It was not brought to my attention readily that the patient was febrile, a sepsis focused exam was performed, screening labs were obtained including a urinalysis, there was evidence of a potential urinary tract infection, I added blood cultures, lactic, only giving a for a 500 mL fluid bolus secondary to her heart failure history, Tylenol for the fever and starting ceftriaxone. In chart review, on the last chest x-ray, there was concern for a right-sided consolidation, during her admission she was managed for heart failure exacerbation, we will repeat the chest x-ray to be sure she has not developed a subsequent pneumonia. I had discussion with 3 of her children, the plan is to hold her for PT and case management, she clearly require short-term rehab. I have independently reviewed the following tests: Labs: No overall leukocytosis left shift noted, not anemic, no electrolyte abnormality, urine appears suspect for infection, lactic 0.8, viral panel negative Chest x-ray:Findings: Heart size is enlarged and stable. 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 Stable interstitial changes could be chronic. No consolidation, significant pleural effusion or pneumothorax. No acute fracture. Stable changes of bilateral shoulders. IMPRESSION: 1. No acute findings. Stable findings as described. Differential Diagnosis Differential Diagnoses: The differential diagnosis associated with the presentation includes See medical decision-making Admission/Observation Consideration of admission/observation: Escalation of care including admission/observation considered Not applicable at this time Consult Healthcare Provider Management of the patient was discussed with: [facility] Physical therapy and case management Lab Data MDM Lab Attestation statement: I reviewed the patient's lab results. 05/27/25 18:11 05/27/25 18:11 Labs: Lab Results 05/27/25 05/27/2525 Range/Units 18:11 18:49 21:44 WBC 10.8 (4.8-10.8) X10*3/uL RBC 3.95 L (4.20-5.50) X10*6/uL Hgb 12.2 (12.0-16.0) g/dl Hct 38.1 (37.0-47.0) % MCV 96.5 (80.0-98.0) fL MCH 30.9 (27.0-33.0) pg MCHC 32.0 (31.0-35.0) g/dl RDW 14.6 (11.0-16.0) % Plt Count 179 (160-400) X10*3/uL MPV 11.3 (9.4-12.3) fL Immature Gran % (Auto) 0.4 (0.0-0.4) % Neut % (Auto) 78.5 H (45-73) % Lymph % (Auto) 11.9 L (20-40) % [place] % (Auto) 6.0 (2-11) % Eos % (Auto) 2.9 (0-4) % Baso % (Auto) 0.3 (0-2) % Lymph # (Auto) 1.3 (1.2-4.9) X10*3/uL [place] # (Auto) 0.7 (0.1-1.2) X10*3/uL Eos # (Auto) 0.3 (0.0-0.4) X10*3/uL Baso # (Auto) 0.0 (0.0-0.2) X10*3/uL Abs Immat Gran (auto) 0.04 H (0.00-0.03) X10*3/uL Absolute Neuts (auto) 8.4 H (2.0-8.3) x10*3/uL Absolute Nucleated RBC 0.000 (0.0-0.012) X10*3/uL Nucleated RBC % (auto) 0.0 (0.0-0.2) /100WBC PT (10.9-12.4) SEC INR (0.9-1.1) Sodium 139 (135-145) mmol/L Potassium 4.5 (3.3-5.1) mmol/L Chloride 98 (96-108) mmol/L Carbon Dioxide 34 H (22-29) mmol/L Anion Gap 12 (12-20) BUN 38 H (9-16) mg/dL Creatinine 1.24 (0.5-1.4) mg/dL Estim Creat Clear Calc 32.9 Estimated GFR 41 POC Glucose 145 H (60-115) mg/dL Random Glucose 219 H (60-115) mg/dL Lactic Acid (0.5-2.0) mmol/L Calcium 9.9 (8.4-10.2) mg/dL Total Bilirubin 0.6 (0.0-1.0) mg/dL AST 28 (5-31) U/L ALT 22 (0-31) U/L Alkaline Phosphatase 122 H (39-117) U/L Total Protein 7.9 (6.5-8.0) g/dL Albumin 4.0 (3.5-5.0) g/dL Urine Color Yellow Urine Appearance Clear Urine pH 7.0 (5.0-9.0) Ur Specific [place] 1.020 (1.005-1.025) Urine Protein Negative (Neg-Trace) mg/dL Urine Glucose (UA) >=1000 H (Negative) mg/dL Urine Ketones Negative (Negative) mg/dL Urine Blood Negative (Negative) Urine Nitrite Negative (Negative) Ur Leukocyte Esterase Moderate (2+) H (Negative) Urine RBC 0-2 (0-2) /HPF Urine WBC 21-50 H (0-5) /HPF Ur Squamous Epith Cells 0-2 (0-2) /HPF Urine Bacteria 4+ (None Seen) Hyaline Casts 0-2 (0-2) /LPF COVID-19 (MUSHTAQ) Negative (Negative) COVID-19 Clin Com See Note Influenza Type A (DANIELLE) Negative (Negative) Influenza Type B (DANIELLE) Negative (Negative) Influenza A & B Note See Note 05/27/25 05/28/25 05/28/25 Range/Units 22:18 07:16 09:27 WBC (4.8-10.8) X10*3/uL RBC (4.20-5.50) X10*6/uL Hgb (12.0-16.0) g/dl Hct (37.0-47.0) % MCV (80.0-98.0) fL MCH (27.0-33.0) pg MCHC (31.0-35.0) g/dl RDW (11.0-16.0) % Plt Count (160-400) X10*3/uL MPV (9.4-12.3) fL Immature Gran % (Auto) (0.0-0.4) % Neut % (Auto) (45-73) % Lymph % (Auto) (20-40) % [place] % (Auto) (2-11) % Eos % (Auto) (0-4) % Baso % (Auto) (0-2) % Lymph # (Auto) (1.2-4.9) X10*3/uL [place] # (Auto) (0.1-1.2) X10*3/uL Eos # (Auto) (0.0-0.4) X10*3/uL Baso # (Auto) (0.0-0.2) X10*3/uL Abs Immat Gran (auto) (0.00-0.03) X10*3/uL Absolute Neuts (auto) (2.0-8.3) x10*3/uL Absolute Nucleated RBC (0.0-0.012) X10*3/uL Nucleated RBC % (auto) (0.0-0.2) /100WBC PT 18.1 H (10.9-12.4) SEC INR 1.6 H (0.9-1.1) Sodium (135-145) mmol/L Potassium (3.3-5.1) mmol/L Chloride (96-108) mmol/L Carbon Dioxide (22-29) mmol/L Anion Gap (12-20) BUN (9-16) mg/dL Creatinine (0.5-1.4) mg/dL Estim Creat Clear Calc Estimated GFR POC Glucose 117 H (60-115) mg/dL Random Glucose (60-115) mg/dL Lactic Acid 0.8 (0.5-2.0) mmol/L Calcium (8.4-10.2) mg/dL Total Bilirubin (0.0-1.0) mg/dL AST (5-31) U/L ALT (0-31) U/L Alkaline Phosphatase (39-117) U/L Total Protein (6.5-8.0) g/dL Albumin (3.5-5.0) g/dL Urine Color Urine Appearance Urine pH (5.0-9.0) Ur Specific [place] (1.005-1.025) Urine Protein (Neg-Trace) mg/dL Urine Glucose (UA) (Negative) mg/dL Urine Ketones (Negative) mg/dL Urine Blood (Negative) Urine Nitrite (Negative) Ur Leukocyte Esterase (Negative) Urine RBC (0-2) /HPF Urine WBC (0-5) /HPF Ur Squamous Epith Cells (0-2) /HPF Urine Bacteria (None Seen) Hyaline Casts (0-2) /LPF COVID-19 (MUSHTAQ) (Negative) COVID-19 Clin Com Influenza Type A (DANIELLE) (Negative) Influenza Type B (DANIELLE) (Negative) Influenza A & B Note Radiology Impression Discussion of test interpretation with radiology: I have reviewed the radiologist's reading. Discharge Plan Discharge Clinical Impression: Urinary tract infection, Weakness Patient Disposition: Xfer Inpatient Rehab Fac Transfer Details: [facility] Instructions: Urinary Tract Infection in Women (ED), Weakness (ED) Additional Instructions: Nikky was seen in the emergency department and was found to have a urinary tract infection. Please continue Keflex as prescribed, finish the entire course. Continue all at-home medications as prescribed. If any new or worsening symptoms occur including but not limited to changes in mentation, please seek emergent care. Prescriptions: New cephalexin 500 mg capsule 500 mg PO BID 7 Days Qty: 14 0RF No Action acetaminophen 650 mg Tablet Extended Release 650 mg PO Q8H PRN (Reason: Pain/Fever) ciclopirox 0.77 % cream 1 appl topical BID PRN (Reason: fungal infection) Rx Instructions: apply to feet and toes solifenacin 10 mg tablet 10 mg PO DAILY Ozempic 0.25 mg or 0.5 mg (2 mg/3 mL) pen injector 0.5 mg subcut DURON insulin glargine [Lantus Solostar U-100 Insulin] 100 unit/mL (3 mL) insulin pen 26 unit subcut DAILY warfarin 4 mg tablet 4 mg PO DAILY@1800 Rx Instructions: TAKE 1 TO 2 TABLETS DAILY DIRECTED PER [facility] polyethylene glycol 3350 17 gram Powder In Packet 17 g PO DAILY Qty: 7 0RF fluticasone propion-salmeterol [Wixela Inhub] 500-50 mcg/dose blister with device 1 ea INHALATION BID metformin 500 mg tablet extended release 24 hr 500 mg PO BIDWM Tab-A-Judith Multivitamin w-iron 15 mg iron- 400 mcg tablet 1 tab PO DAILY magnesium oxide 400 mg (241.3 mg magnesium) tablet 400 mg PO DAILY diclofenac sodium 1 % gel 4 g topical QID PRN (Reason: Pain) cetirizine 10 mg tablet 5 mg PO DAILY albuterol sulfate 90 mcg/actuation HFA aerosol inhaler 2 puff INHALATION Q6H PRN (Reason: wheezing) furosemide 20 mg Tablet 60 mg PO DAILY Qty: 60 0RF Protocol: Hold for SBP< HOLD for SBP < : 90 Jardiance 10 mg Tablet 10 mg PO DAILY Qty: 30 0RF (DME) pen needle, diabetic 32 gauge x 5/32 needle See Rx Instructions .ROUTE .MEDSUPPLY Qty: 50 Rx Instructions: As directed cholecalciferol (vitamin D3) 50 mcg (2,000 unit) tablet 50 mcg PO DAILY sertraline 50 mg tablet 50 mg PO DAILY fluticasone propionate 50 mcg/actuation spray,suspension 2 spray intranasal DAILY omeprazole 20 mg capsule,delayed release(DR/EC) 20 mg PO BID@0630,1630 levothyroxine 100 mcg tablet 100 mcg PO DAILY@0600 [facility] .ROUTE .MEDSUPPLY Qty: 100 Rx Instructions: As directed (DME) blood sugar diagnostic Strip See Rx Instructions Not Applicable BID Qty: 10 Rx Instructions: As directed atorvastatin 20 mg tablet 20 mg PO BEDTIME (DME) Sidestream Misc See Rx Instructions .ROUTE DIRECTED Qty: 1 Rx Instructions: As directed docusate sodium 100 mg capsule 100 mg PO BID Referrals: [facility] [Outside] Referral Note: [phone] Valeri Lerner DO [Primary Care Provider, Internal Medicine] Discharge Date/Time: 05/28/25 12:56 Print Language: Luxembourgish
--- NOTE | 2025-05-27 23:38 | PC.NURSE ---
Took over care from Arnoldo Rivas, pt Sepsis work up, Fluid still running on pump, gave report to Rn and notified pt need two set of vitals after fluids completed.
[2025-05-28 00:21] VITALS: BP 115/42; PULSE 62; TEMP 36.9; O2SAT 94
[2025-05-28 00:33] VITALS: BP 126/47; PULSE 66; TEMP 36.8; O2SAT 92
--- NOTE | 2025-05-28 03:04 | PC.NURSE ---
Pt arrived to ED Overflow bed at approx 2330. Pt arrived via stretcher accompanied?by her daughter. Shortly after arrival the daughter left and took all pts belongings with her besides a blanket. Pt is Surinamese speaking only, press brake operator was used for communication with pt. Pt is A&Ox4. Sepsis fluids completed. Pt denies shortness of breath. Pt c/o weakness and unable to ambulate at this time. External catheter in place for urination. At approx 0030, it was noted pt was hypoxic at 84% room air. Pt was placed on 2LPM?via NC and recovered to 94%. Fine crackles auscultated in bases. Pt awaiting PT consult. Fall precautions in place. Call alvarenga in reach. Plan of care continues.
[2025-05-28 06:10] VITALS: BP 130/66; PULSE 61; RESP 16; TEMP 36.4; O2SAT 97
[2025-05-28 07:20] LABS: Glucose, Whole Blood 117 mg/dL (60-115)
[2025-05-28 08:20] VITALS: BP 130/66
[2025-05-28] MEDS: Insulin Glargine,Hum.rec.anlog 100 UNIT/ML 10 ML VIAL 26 UNIT SUBCUT (08:23)
[2025-05-28 08:30] VITALS: PULSE 87; RESP 16; O2SAT 96
[2025-05-28] MEDS: Fluticasone/Vilanterol 200/25 BLST.W.DEV 1 PUFF INHALE (08:30)
--- NOTE | 2025-05-28 08:48 | MHC.CM.ED ---
Addendum entered by Annita Jordan 05/28/25 09:41: Armin Bedoya in process of obtaining ins auth. Patient and son, Danny aware. Original Note: Patient remains in ER. Physical therapy eval is ordered and pending. Referral made to [facility]in [facility]. Armin [facility]oya can offer a bed with auth from [facility]. Will need PT eval in order to obtain auth. Continue to monitor for d/c needs.
[2025-05-28 09:38] LABS: INTERNATIONAL NORM RATIO 1.6 (0.9-1.1); Prothrombin Time 18.1 SEC (10.9-12.4)
--- NOTE | 2025-05-28 11:01 | MHC.CM.ED ---
Insurance auth has been obtained by Armin HAQUE booked for 12pm. Patient, son Danny, daughter La Elmore RN and Adele MIRANDA aware. Continue to monitor for d/c needs.
--- NOTE | 2025-05-28 11:08 | PC.NURSE ---
Report to SHIRLEY Higuera at [facility]
--- NOTE | 2025-05-28 11:17 | PHA.MEDREC ---
Pharmacy Consult ? Medication Reconciliation Pharmacy has reviewed the medication reconciliation completed by nursing. Metoprolol was DC. Pharmacy to f/u on warfarin dosing schedule..
== END 2025-05-28 12:56 ==
PROVIDERS: Physician Assistant Medical; Emergency Provider Emergency Medicine; PCP Family Medicine
DX: N39.0 Urinary tract infection, site not specified (principal); I11.0 Hypertensive heart disease with heart failure; I50.22 Chronic systolic (congestive) heart failure; E11.9 Type 2 diabetes mellitus without complications; I48.0 Paroxysmal atrial fibrillation; Z86.718 Personal history of other venous thrombosis and embolism; Z79.01 Long term (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; Z86.73 Personal history of transient ischemic attack (TIA), and cerebral infarction without residual deficits; Z79.899 Other long term (current) drug therapy
CPT/HCPCS: 36415; 71045; 80053; 81001; 81003; 82947; 83605; 85025; 85610; 87040; 87086; 87502; 87635; 94640; 97162; 99285; J0696

== ENCOUNTER → 2025-05-28 | Outpatient (BNV) | payer OTHER, MEDICAID, SELFPAY | PROVIDERS: Emergency Provider Emergency Medicine; Visit Provider Specialist | DX: R05.9 Cough, unspecified (principal); R50.9 Fever, unspecified | CPT/HCPCS: 71045 ==

== ENCOUNTER 2025-06-13 13:32 | Outpatient (AMB) | payer OTHER, MEDICAID, SELFPAY ==
--- OUTSIDE RECORDS SUMMARY | 2024-11-22 08:30 | XMS_ITS ---
Author Organization [facility] Address [address] [place] [address] Care Team Providers Care Digital Production Operator Name Role Phone Valeri Lerner Primary Care Provider UnavailKeenan Dalton Unavailable [phone] Archuleta Encounters Encounter Location Date Provider Diagnosis [address] [address] 11/22/2024 Keenan Dyer Plan Of Treatment Next Appt Details Provider Name:Keenan Dyer , 08/15/2025 12:45:00 PM, [address] [place] [address], [phone], Progress Notes * Anna WOODCoraB:[birth year] (89 yo F)Acc No.[id number]:11/22/2024 Progress Note Patient: Nikky SINGH Provider: Gabbi Dyer DPM :1935 A ge:89 Y S ex:Female Date:11/22/2024 Address:[address] [place] [phone] Pcp:Valeri Lerner Subjective: * Chief Complaints: * [...] 0 11/22/2024 Generated for Tray López on: 08/13/2024 07:55 PM EST
--- OUTSIDE RECORDS SUMMARY | 2024-12-13 07:45 | XMS_ITS ---
Author Organization [facility] Address [address] [place] [address] Care Team Providers Care Historical Site Guide Name Role Phone Valeri Lerner Primary Care Provider UnavailKeenan Dalton Unavailable [phone] Archuleta Encounters Encounter Location Date Provider Diagnosis [address] [address] 12/13/2024 Keenan Dyer Plan Of Treatment Next Appt Details Provider Name:Keenan Dyer , 08/15/2025 12:45:00 PM, [address] [place] [address], [phone], Progress Notes * Anna WOODCoraB:[birth year] (89 yo F)Acc No.[id number]:12/13/2024 Progress Note Patient: Nikky SINGH Provider: Gabbi Dyer DPM :1935 A ge:89 Y S ex:Female Date:12/13/2024 Address:[address] [place] [phone] Pcp:Valeri Lerner Subjective: * Chief Complaints: * [...] 0 12/13/2024 Generated for Tray López on: 08/13/2024 07:54 PM EST
--- NOTE | 2025-06-13 13:35 | MHC.OFFVIS ---
Vital Signs 06/13/25 13:40 Height 5 ft 2 in BMI Reason not done Patient refused/unable BP 124/66 Blood Pressure Location Lt brachial Position Sitting Pulse 62 Intake Visit Reasons: F/u Stress test Intake Note: Follow-up after stress test c/o some chest pain Senior Systems Administrator Required: Yes Senior Systems Administrator Services: Senior Systems Administrator Offered & Declined Multimedia Developer: Multimedia Developer Present Accompanied by: Daughter Allergies shellfish derived Allergy (Severe, Verified 06/13/25 15:15) Hives aspirin (Aspirin) Allergy (Mild, Verified 06/13/25 15:15) Gastrointestinal Upset ibuprofen Allergy (Unknown, Verified 06/13/25 15:15) Unknown oxycodone (From PERCOCET) Allergy (Unknown, Verified 06/13/25 15:15) PALPITATIONS Robitussin Cold Cough+ Chest Allergy (Intermediate, Uncoded 05/23/25 14:08) hives SEAFOOD Allergy (Intermediate, Uncoded 05/23/25 14:08) hives Medication List - Last Reconciled 06/13/25 by Valerie Monroe NP-C acetaminophen ER 650 mg PO Q8H PRN albuterol sulfate 90 mcg/actuation 2 puffs inhalation Q6H PRN atorvastatin 20 mg PO BEDTIME blood sugar diagnostic As directed cholecalciferol (vitamin D3) 50 mcg PO DAILY ciclopirox 0.77% 1 appl topical BID PRN diclofenac sodium 1% 4 grams topical QID PRN empagliflozin (Jardiance) 10 mg PO DAILY fluticasone propion-salmeterol 500-50 mcg/dose (Wixela Inhub) 1 ea inhalation BID fluticasone propionate 50 mcg/actuation 2 sprays intranasal DAILY furosemide 60 mg See Protocol PO DAILY insulin glargine (Lantus Solostar U-100 Insulin) 26 units subcut DAILY lancets As directed levothyroxine 100 mcg PO DAILY@0600 magnesium oxide 400 mg PO DAILY metformin ER 500 mg PO BIDWM multivit-iron sulf-folic acid 15 mg iron- 400 mcg (Tab-A-Judith Multivitamin w-iron) 1 tab PO DAILY nebulizers (Sidestream misc) As directed omeprazole 20 mg PO BID@0630,1630 pen needle, diabetic As directed polyethylene glycol 3350 17 grams PO DAILY semaglutide (Ozempic) 0.5 mg subcut DURON sertraline 50 mg PO DAILY solifenacin 10 mg PO DAILY warfarin 4 mg PO DAILY@1800 HPI HPI F/u Stress test: Details: Nikky is an 89-year-old female with past medical history of hypertension, hyperlipidemia, diabetes, obesity, carotid stenosis, first-degree AV block, paroxysmal atrial fibrillation, who was recently admitted to [facility] [place] with decompensated heart failure. She was managed medically and discharged with Lasix 60 mg daily. She now presents for follow-up. Her last prior visit to our office was 03/22/2024. Today she reports that she has been doing well since her hospital discharge. She is living at home and has a visiting nurse come daily to help her with medications and to check her vital signs. She is mostly sedentary and is currently sitting in a wheelchair. She will get shortness of breath with activities which is not new. She has a congested cough at times. She sleeps with the head of the bed partially elevated. She denies chest discomfort at rest or with activity. No heart palpitations, lightheadedness, presyncope, syncope. She has fallen but not recently. She ambulates only short distances with a walker. No bleeding issues reported. She is on her Coumadin and tells me that she has a nurse check her INRs at home. Daughter present and assisting with Slovak translation at their request. [facility] Medical History Prolonged QT interval Prolonged QT interval Heart block Hypertension CHF (congestive heart failure) Pneumonia Multiple falls Acute on chronic respiratory failure with hypoxemia Weakness Urgency incontinence Menopause Well woman exam Current use of anticoagulant therapy Stenosis of carotid artery Diabetes type 2, controlled Sepsis Gastroenteritis Hypoxia Pneumonia Urinary incontinence Obesity due to excess calories Type 2 diabetes mellitus with diabetic polyneuropathy Senile cataract of left eye Essential hypertension Hyperlipemia Paroxysmal A-fib Anxiety disorder Hypothyroidism Coronary artery disease History of cerebrovascular accident Osteoarthritis Osteopenia Deep vein thrombosis Hearing loss Surgical History H/O colonoscopy H/O breast surgery S/P IVC filter History of bilateral tubal ligation Family History Father Heart disease CVD (cardiovascular disease) Mother Diabetes Social History Household Members: Family and None Housing: House Do you presently have visiting nurse or other home services: Yes Alcohol intake: never Comment: Luda WATSON Patient Tobacco Use Status: Former Tobacco user Tobacco use type: Cigarette Advance Directives Date on File: 07/01/22 service: No Current occupational status: unemployed Sexual orientation: Straight/Heterosexual Gender identity: Female Female Reproductive History Menstrual Age of Menarche: 10 Review of Systems Const All systems reviewed & are unremarkable except as noted in HPI and below Denies chills, Denies fatigue, Denies fever(s), Denies frequent falls, Denies weakness, Denies weight gain and Denies weight loss ENT Denies dizziness Card Denies chest pain, Denies leg edema, Denies lightheadedness, Denies palpitations, Denies dyspnea, Reports dyspnea on exertion, Denies orthopnea and Denies other (loss of consciousness) Resp Denies cough, Denies dyspnea and Reports dyspnea on exertion GI Denies hematochezia and Denies change in stool character Musc Details: Balance issues Reports abnormal gait, Denies muscle weakness, Denies numbness, Denies radiating pain into limb and Denies tingling Neuro Reports abnormal gait, Denies dizziness, Denies frequent falls, Denies numbness, Denies tingling and Denies weakness Endo Denies fatigue and Denies palpitations Physical Exam Vital Signs: Last Vital Signs Pulse 62 06/13/25 13:40 BP 124/66 06/13/25 13:40 Const General: cooperative, comfortable and no acute distress Orientation/consciousness: patient oriented x3 Neck Neck: Yes normal visual inspection Resp Effort & Inspection: normal respiratory effort Auscultation: clear to auscultation bilaterally, no rales, no rhonchi and no wheezes Cardio Rate: regular rate Rhythm: regular rhythm Heart sounds: S1 normal heart sound present, S2 normal heart sound present, no gallops, no murmurs and no rubs Neuro General: patient oriented x3 Extrem General: Yes normal to inspection, No no pedal edema and No calf tenderness Psych Appearance: grossly normal Mental Status: mental status grossly normal Speech and movement: Normal speech and movement present Assessment & Plan Assessment & Plan (1) CHF (congestive heart failure): Code(s): I50.9 - Heart failure, unspecified Category: Medical Qualifiers: Heart failure chronicity: acute on chronic Heart failure type: unspecified Qualified Code(s): I50.9 - Heart failure, unspecified Plan: History of heart failure with preserved EF. Recent hospitalization for decompensated heart failure. Echocardiogram 05/24/2025 shows EF 50-55%, restrictive filling, [id number] RV dysfunction, moderate biatrial enlargement, normal valves, moderately elevated RV systolic pressure and right atrial pressures. She was diuresed and sent home with Lasix 40 mg daily. On exam today she does not appear fluid overloaded. No rales or edema noted, breathing unlabored. Continue Lasix 60 mg daily. Reviewed low-salt diet, leg elevation when sitting. Signs and symptoms of heart failure reviewed with them. She can take an additional dose of Lasix if needed for increased shortness of breath or leg edema. (2) Paroxysmal A-fib: Code(s): I48.0 - Paroxysmal atrial fibrillation Category: Medical Plan: History of paroxysmal atrial fibrillation. She had been on metoprolol which was stopped last admission due to report of bradycardia. Last EKG in the hospital is showing atrial flutter, RVR rate 167. Pulse today at time of visit 62 beats per minute. No reports heart palpitations. To help prevent recurrent PAF with RVR will restart metoprolol at lower dose, metoprolol XL 12.5 mg daily. Will then check Holter monitor to assess rates and rhythm. Plan to readd low-dose beta-dinorah if heart rates allow. She is on Coumadin for anticoagulation. INR goal 2-3. She tells me she has labs checked by her visiting nurse. No bleeding issues reported. (3) Heart block: Code(s): I45.9 - Conduction disorder, unspecified Category: Medical Plan: Prior EKGs showing First-degree AV block. (4) Chronic anticoagulation: Code(s): Z79.01 - intermediate teacher (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 Category: Medical Plan: As above (5) Bilateral carotid artery stenosis: Code(s): I65.23 - Occlusion and stenosis of bilateral carotid arteries Category: Medical Plan: History of carotid stenosis. Last carotid ultrasound 01/04/2023 shows right ICA 0-49% stenosis, left ICA occluded. She is on atorvastatin 20 mg daily. (6) Hyperlipemia: Code(s): E78.5 - Hyperlipidemia, unspecified Category: Medical Qualifiers: Hyperlipidemia type: pure hypercholesterolemia Qualified Code(s): E78.00 - Pure hypercholesterolemia, unspecified Plan: [place] LDL goal less than 70 in patient with diabetes and peripheral vascular disease. Labs done 08/31/2023 showed LDL 41. Will put order in for lipids to be rechecked with next labs. Continue atorvastatin. (7) Preop cardiovascular exam: Code(s): Z01.810 - Encounter for preprocedural cardiovascular examination Category: Medical Plan: Daughter states she has not still not had her colonoscopy. She was previously cleared as intermediate cardiac risk. Current risk remains intermediate. Avoid fluid overload and watch for congestive heart failure. She has known PAF. Checking Holter to see if beta-dinorah can be restarted. Her Coumadin can be held as required for the procedure then restarted as soon as cleared by GI to do so. Call/consult Cardiology if needed Plan I discussed the importance of monitoring fluid retention and adjusting diuretics as needed to manage heart failure. We talked about avoiding dietary salt to prevent fluid retention and the need for follow-up in a few months to reassess the condition. I emphasized the continuation of anticoagulation therapy to reduce stroke risk due to paroxysmal atrial fibrillation. Orders: Orders ECG 3 day holter monitor Today I48.91 - Unspecified atrial fibrillation Medications: New metoprolol succinate ER 1/2 tablet daily 12.5 mg (1/2 x 25 mg) PO DAILY 45 tabs 1RF Patient Instructions: - Monitor for fluid retention and adjust diuretics as needed. - Avoid dietary salt to prevent fluid retention. - Continue anticoagulation therapy to reduce stroke risk. - Reschedule colonoscopy with proper bowel preparation. Patient was informed and verbally consented to the use of an ambient scribe for clinic note documentation during this visit. Visit time spent on chart review, interview, assessment, orders, documentation. Coding Level of Care Code Est Pt Level 4 (56034) Complex EM visit Add On G2211 Diagnoses CHF (congestive heart failure) I50.9 Heart failure chronicity: acute on chronic Heart failure type: unspecified Paroxysmal A-fib I48.0 Heart block I45.9 Chronic anticoagulation Z79.01 Bilateral carotid artery stenosis I65.23 Pure hypercholesterolemia E78.00 Hyperlipidemia type: pure hypercholesterolemia Preop cardiovascular exam Z01.810 Time Spent (min) 32
[2025-06-13 13:40] VITALS: BP 124/66; PULSE 62
--- OUTSIDE RECORDS SUMMARY | 2025-06-13 19:52 | XMS_ITS | Clinical Summary ---
Author Organization [employer] Address [address] [place] [address] [address] [place] [address] Care Team Providers Care Director Data Processing Name Role Phone Valeri Lerner DO Primary Care Provider [phone] Allergies Active Allergy Reactions Criticality Noted Date [...] each 11 023 Active Continuous Blood Gluc Baggage And Mail Agent ([email or web address] Jason 2 [place]) device Scan sensor every 8 hours 1 each 024 Active furosemide (Lasix) 20 MG tablet Take 3 tablets by mouth in the morning. 024 Active fluticasone (Flonase) 50 MCG/ACT nasal sprayIndications: Seasonal allergic rhinitis, unspecified trigger Administer 2 sprays into each nostril Once per day. Shake gently. Before first use, prime pump. After use, clean tip and replace cap. 16 g Active cetirizine (ZyrTEC) 10 MG tablet Take 0.5 tablets (5 mg) by mouth Once per day. 15 tablet 06/13/20 4:09 PM EST 2024 Active metFORMIN XR (Glucophage-XR) 500 MG 24 hr tabletIndications :Type 2 diabetes mellitus with hyperglycemia, with long-term current use of insulin ([facility]) TAKE 1 TABLET BY MOUTH TWICE DAILY IN THE MORNING AND IN THE EVENING WITH FOOD 60 tablet 06/13/20 4:09 PM EST Active atorvastatin (Lipitor) 20 MG tabletIndications :Other [...] long-term current use of insulin (HCC) Inject 26 Units under the skin in the morning. 15 mL 11 /14/20 25 4:09 PM EST Active Semaglutide,0.25 or 0.5MG/DOS, (Ozempic, 0.25 or 0.5 MG/DOSE,) 2 MG/3ML solution pen-injectorIndic ations:Type 2 diabetes mellitus with hyperglycemia, with long-term current use of insulin (HCC) Inject 0.5 mg under the skin 1 (one) time per week. 3 mL 06/13/20 4:09 PM EST 025 2025 Active metoprolol tartrate (Lopressor) 25 MG tablet TAKE 1/2 TABLET BY MOUTH TWICE DAILY IN THE MORNING AND EVENING 90 tablet 1 Active Pentips Generic Pen Cadillac 32G X 4 MM misc USE DIRECTED WITH LANTUS AND HUMALOG 200 each Active sertraline (Zoloft) 50 MG tabletIndications :Depression, unspecified depression type TAKE 1 TABLET BY MOUTH EVERY MORNING 30 tablet 5 Active Fluticasone-Salme terol 500-50 MCG/ACT aerosol powderIndications :Moderate persistent asthma without complication Inhale 1 puff 2 times daily. 60 each 06/13/20 4:09 PM EST Active albuterol 108 (90 Base) MCG/ACT inhalerIndication s:Moderate persistent asthma without complication Inhale 2 puffs every 6 (six) hours if needed for wheezing. 18 g 2025 Active albuterol (2.5 MG/3ML) 0.083% nebulizer solutionIndicatio ns:Moderate persistent asthma without complication Take 3 mL (2.5 mg) by nebulization every 6 (six) hours if needed for wheezing. 75 mL 025 2025 Active warfarin (Coumadin) 4 MG tabletIndications :Paroxysmal atrial fibrillation (CMS/HCC) (HCC) TAKE 1 TO 2 TABLETS BY MOUTH EVERY DAY DIRECTED 60 tablet 2 06/13/20 4:09 PM EST 025 Active Multiple Vitamins-Iron (Tab-A-Judith/Iron) tablet TAKE 1 TABLET BY MOUTH EVERY MORNING WITH FOOD 90 tablet 3 025 Active cholecalciferol VITAMIN D (Vitamin D-3) 50 MCG (1999) tablet TAKE 1 TABLET BY MOUTH EVERY MORNING 90 tablet 1 025 Active solifenacin (VESIcare) 10 MG tablet TAKE 1 TABLET BY MOUTH EVERY MORNING DO NOT BREAK, CRUSH, DISSOLVE OR CHEW 30 tablet 11 06/13/20 25 4:09 PM EST 025 Active magnesium oxide (Mag-Ox) 400 MG tabletIndications :Hypomagnesemia TAKE 1 TABLET BY MOUTH EVERY DAY 30 tablet 1 025 Active Alcohol Swabs (Alcohol Prep) 70 % pads USE THREE TO FOUR TIMES DAILY 100 each 11 025 Active Alcohol Swabs (Alcohol Prep) 70 % pads USE THREE TO FOUR TIMES DAILY 100 each 11 024 2024 Discontinued Active Problems Problem Noted Date [...] 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 Cost Consultant list provided for daughter, Referral to vna [...] 015 Overview (01/26/2024): Seen by Dr Bradshaw, [facility] cards. Assessment & Plan (01/26/2024 2:51 PM [...] previous one of 9 on admission to [facility]. No change in meds. FU w PCP [...] Acute on chronic respiratory failure with hypoxemia ([facility]) 11/21/2023 12/26/2023 Contusion of right shoulder 11/21/2023 12/26/2023 Current use of anticoagulant therapy 11/21/2023 12/26/2023 Assessment & Plan (11/25/2023 1:23 PM EDT): No visible eccymosis, daughter and pt report compliance with oral medications Fall 11/21/2023 12/26/2023 Forehead contusion 11/21/2023 Gastroenteritis 11/21/2023 12/26/2023 Head injury 11/21/2023 12/26/2023 Hypoxia 11/21/2023 12/26/2023 Obesity due to excess calories 11/21/2023 12/26/2023 Sepsis ([facility]) 11/21/2023 12/26/2023 Urgency incontinence 11/21/2023 024 UTI (urinary tract infection) 11/21/2023 12/26/2023 Weakness 11/21/2023 12/26/2023 Well woman exam 11/21/2023 12/26/2023 BMI 40.0-44.9, adult ([facility]) 08/23/2023 11/25/2024 Arthritis of right shoulder region 08/08/2022 08/23/2023 Assessment & Plan (08/08/2022 1:07 PM EST): Worsened after She fell QUILL STRIPPER on 06/26 Continue PT at home. Tylenol [...] Encounters Date Type Department Care Team Description 06/13/2025 Telephone [facility] [address] [place] [address] Valeri Lerner DO VNA services 06/13/2025 Patient Outreach [facility] [address] [place] [address] Valeri Lerner DO Transition Of Care (Tcm) (HDF scheduled) 06/13/2025 Telephone [facility] [address] [place] [address] Valeri Lerner DO Hospital Follow-up 06/09/2025 Patient Outreach [facility] [address] [place], [place] [phone] Valeri Lerner DO Pre-visit Planning (HDF scheduled ) 06/06/2025 11:30 AM EST Office Visit [facility] OPTOMETRY [address] [place] [address] Tod, Ai, OD 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 (HCC) (Primary Dx); Pseudophakia of both eyes; Presbyopia of both eyes 06/06/2025 Telephone [facility] [address] [place] [address] Valeri Lerner DO INR tracking 06/06/2025 Travel 05/30/2025 Refill [facility] [address], [place] [address] Valeri Lerner DO 05/28/2025 Patient Outreach [facility] [address] [place] [address] Valeri Lerner DO Transition Of Care (Tcm) (HDF scheduled and SDOH screening completed on 02/17/25) 05/28/2025 Orders Only GENERIC EXTERNAL DATA DEPARTMENT Provider, Generic External Data 05/27/2025 Orders Only GENERIC EXTERNAL DATA DEPARTMENT Provider, Generic External Data 05/23/2025 Telephone [facility] [address] [place] [address] Valeri Lerner DO FYI 05/21/2025 Telephone [facility] [address] [place] [address] Valeri Lerner DO FYI 05/13/2025 Anticoagulation - Warfarin Visit [facility] [address] [place] [address] Michaela Rollins, RN Paroxysmal atrial fibrillation ([facility]) ([facility]) 05/13/2025 Telephone [facility] [address], [place] [address] Valeri Lerner DO 05/06/2025 Anticoagulation - Warfarin Visit [facility] [address] [place] [address] Michaela Rollins, RN Paroxysmal atrial fibrillation ([facility]) ([facility]) 05/01/2025 Refill [facility] [address] [place] [address] [place], Frances, [employer]IVER Hypomagnesemia 04/24/2025 Refill [facility] [address], [place] [address] Valeri Lerner DO 04/18/2025 Telephone [facility] [address] [place] [address] Valeri Lerner DO 04/18/2025 Telephone [facility] [address] [place] [address] Valeri Lerner, telephone call 04/15/2025 Anticoagulation - Warfarin Visit [facility] [address] [facility] [place] [address] Michaela Rollins, RN Paroxysmal atrial fibrillation ([facility]/HCC) 04/15/2025 Telephone [facility] [address] [place] [address] Valeri Lerner, Call back request 04/14/2025 Telephone [facility] [address] [place] [address] Valeri Lerner, call back request 04/08/2025 Refill [facility] [address] [place] [address] Valeri Lerner, 04/06/2025 Refill [facility] [address] [place] [address] Valeri Lerner DO 03/25/2025 Anticoagulation - Warfarin Visit [facility] [address] [place] [address] Hanane Jackson RN Paroxysmal atrial fibrillation ([facility]/HCC) 03/21/2025 Telephone [facility] [address] [place] [address] Valeri Lerner DO Durable Medical Equipment (DME Request: Transport Chair) 03/21/2025 Telephone [facility] [address] [place] [address] Valeri Lerner DO Verbal Order 03/15/2025 Refill [facility] [address] [place] [address] Valeri Lerner, Paroxysmal atrial fibrillation ([facility]/HCC) from Last 3 Months Immunizations Immunization Administration [...] Care Team (Late st Contact Info) Description 07/04/2025 1:00 PM EST Office Visit [facility] [address] [place] [address] Diana Eric MD [address] [place] [address] Health Maintenance Due Date Last Done Comments [...] 06/07/2025 025, 11/22/2024, 10/30/2024, Additional history exists Depression Screening 07/15/2025 07/15/2024, 07/15/20 Diabetes: Foot Exam 01/10/2026 01/10/2025 SDOH Screening 02/17/2026 02/17/2025 Eye Exam 06/06/2026 06/06/2025, 1101/2025, 06/06/2025, Additional history exists Tobacco Screening 06/06/2026 06/06/2025 DTaP/Tdap/Td Vaccines (3 - Td or Tdap) [...] 1:53 PM EDT) No Batsheva Gomez PharmD Help patients manage their type 2 diabetes Care Plan Help patients manage their type 2 diabetes No Michaela Rollins RN Weekly blood pressure task Care Plan Weekly blood pressure task No Michaela Rollins RN Help patients manage their type 2 diabetes Care Plan Help patients manage their type 2 diabetes No Michaela Rollins RN Patient has chronic kidney disease Care Plan Patient has chronic kidney disease No Michaela Rollins RN Weekly blood pressure task Care Plan Weekly blood pressure task No Michaela Rollins RN Patient has chronic kidney disease Care Plan Patient has chronic kidney disease No Michaela Rollins RN Weekly blood pressure task Care Plan Weekly blood pressure task No Klaus Levi Weekly blood pressure task Care Plan Weekly blood pressure task No Klaus Levi Patient has chronic kidney disease Care Plan Patient has chronic kidney disease No Klaus Levi Patient has chronic kidney disease Care Plan Patient has chronic kidney disease No Klaus Levi Weekly blood pressure task Care Plan Weekly blood pressure task No Joanne Cornejo Weekly blood pressure task Care Plan Weekly blood pressure task No Joanne Cornejo Patient has chronic kidney disease Care Plan Patient has chronic kidney disease No Joanne Cornejo Patient has chronic kidney disease Care Plan Patient has chronic kidney disease No Joanne Cornejo Weekly blood pressure task Care Plan Weekly blood pressure task No Michaela Rollins RN Weekly blood pressure task Care Plan Weekly blood pressure task No Michaela Rollins RN Patient has chronic kidney disease Care Plan Patient has chronic kidney disease No Michaela Rollins RN Patient has chronic kidney disease Care Plan Patient has chronic kidney disease No Michaela Rollins RN Procedures Procedure Name Priority Date/Time Associated Diagnosis Comments PROTHROMBIN TIME-INR Routine 05/28/2025 9:27 AM EDT GLUCOSE, WHOLE BLOOD Routine 05/28/2025 7:16 AM EDT XR CHEST 1 VIEW Routine 05/28/2025 1:13 AM EDT LACTIC ACID Routine 05/27/2025 10:18 PM EDT BLOOD CULTURE (SECOND) Routine 10:18 PM EDT BLOOD CULTURE (FIRST) Routine 05/27/2025 10:18 PM EDT GLUCOSE, WHOLE BLOOD Routine 05/27/2025 9:44 PM EDT URINALYSIS, COMPLETE, WITH REFLEX TO CULTURE Routine 05/27/2025 6:49 PM EDT CBC WITH AUTO DIFFERENTIAL Routine 05/27/2025 6:11 PM EDT COVID-19 ID NOW (CRWOE) Routine 05/27/2025 6:11 PM EDT COMPREHENSIVE METABOLIC PANEL Routine 05/27/2025 6:11 PM EDT INFLUENZA A B2 ID NOW (CROWE) Routine 05/27/2025 6:11 PM EDT CULTURE, URINE, ROUTINE Routine 05/27/2025 12:00 AM EDT PROTHROMBIN TIME-INR Routine 05/13/2025 PROTHROMBIN TIME-INR Routine 05/06/2025 PROTHROMBIN TIME-INR Routine 04/15/2025 PROTHROMBIN TIME-INR Routine 03/25/2025 POCT GLYCATED HEMOGLOBIN, TOTAL Routine 03/07/2025 1:53 PM EDT Type 2 diabetes mellitus with hyperglycemia, with long-term current use of insulin ([facility]) AMB REFERRAL TO PODIATRY Routine 01/10/2025 Type 2 diabetes mellitus with hyperglycemia, with long-term current use of insulin ([facility]) ALBUMIN, RANDOM URINE W/CREATININE Routine 08/31/2023 4:16 PM EST Type 2 diabetes mellitus with hyperglycemia, with long-term current use of insulin ([facility]) LIPID PANEL, STANDARD Routine 08/31/2023 4:11 PM EST Type 2 diabetes mellitus with hyperglycemia, with long-term current use of insulin ([facility]) from Last 3 Months or Most Recently Relevant to Health Maintenance Results * (ABNORMAL) Prothrombin Time-INR (05/28/2025 9:27 AM EDT) Only the most recent of5 resultswithin the time period is included. Prothrombin Time 18.1(H) 10.9 - 12.4 SEC [facility] INTERNATIONAL NORM RATIO 1.6(H) 0.9 - 1.1 [facility] Comment:INTERNATIONAL NORMAL IZED RATIO (INR) REFERENCE RANGES Reference RangeFor patients not on anticoagulant therapy: 0.9 - 1.1INR ranges for oral anticoagulanttherapy:For prevention and treatment of venous thrombosis and pulmonary embolism: 2.0 - 3.0For acute myocardial infarction with aspirin therapy: 2.0 - 3.0For acute myocardial infarction without aspirin therapy: 3.0 - 4.0For patients with mechanical prosthetic heart valves: 2.5 - 3.5 05/28/2025 9:27 AM EDT 05/28/2025 9:29 AM EDT us Generic External Data Provider LAB BLOOD ORDERAB LES Final Result [facility] [address] [place] [phone] * (ABNORMAL) Glucose, Whole Blood (05/28/2025 7:16 AM EDT) Only the most recent of2 resultswithin the time period is included. Glucose, Whole Blood 117(H) 60 - 115 mg/dL [facility] Comment:METER #: [id number] 05/28/2025 7:16 AM EDT 05/28/2025 7:20 AM EDT us Generic External Data Provider LAB BLOOD ORDERAB LES Final Result Performing Organization Address City/State/[facility] Co de Phone Number [facility] [address] [place] [phone] * XR Chest 1 View (05/28/2025 1:13 AM EDT) Anatomical Region Laterality Modality Chest Radiographic Isabella ging 05/28/2025 1:13 AM EDT Narrative 05/28/2025 1:16 AM EDT [address] [address] XRay Report Signed Patient: Nikky Guevara MR#: [id number] : 1935 Acct:[id number] Age/Sex: 89 / F ADM Date: 05/27/25 Loc: .ED Attending Dr: Ordering Physician: Angelic Ramirez Date of Service: 05/28/25 Procedure(s): XR chest 1V Accession Number(s): [id number] cc: Angelic Ramirez; [facility] Reason for Exam: cough/fever CLINICAL HISTORY: cough fever 1 view chest x-ray Comparison: CR - XR CHEST 1V - 05/24/25 13:10 EDT Findings: Heart size is enlarged and stable. 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 Stable interstitial changes could be chronic. No consolidation, significant pleural effusion or pneumothorax. No acute fracture. Stable changes of bilateral shoulders. IMPRESSION: 1. No acute findings. Stable findings as described. This document has been electronically signed by: Rafaela Vanessa MD on 05/28/2025 01:13:16 Dictated By: Rafaela Vanessa MD Signed By: <Electronically signed by Rafaela Vanessa MD in OV> 05/28/25113 DD/ 2 TD/TT: 05/28/25112 Compensation Agent: Procedure Note Donotuseinterpreter, Image - 05/28/[address] [address] XRay Report Signed Patient: Cassie Guevara#: [id number] : 6Acct:[id number] Age/Sex: 89 / FADM Date: 05/27/25 Loc: HO.ED Attending Dr: Ordering Physician: Angelic Ramirez Date of Service: 05/28/25 Procedure(s): XR chest 1V Accession Number(s): [id number] cc: Angelic Ramirez; [facility] Reason for Exam: cough/fever CLINICAL HISTORY: cough fever 1 view chest x-ray Comparison: CR - XR CHEST 1V - 05/24/25 13:10 EDT Findings: Heart size is enlarged and stable. 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 Stable interstitial changes could be chronic. No consolidation, significant pleural effusion or pneumothorax. No acute fracture. Stable changes of bilateral shoulders. IMPRESSION: 1. No acute findings. Stable findings as described. This document has been electronically signed by: Rafaela Vanessa MD on 05/28/2025 01:13:16 Dictated By: Rafaela Vanessa MD Signed By: <Electronically signed by Rafaela Vanessa MD in OV> 05/28/25113 DD/ 2 TD/TT: 05/28/25112 Compensation Agent: [facility] External Provider IMG XR PROCEDURES Edited Result - Final * Blood Culture (First) (05/27/2025 10:18 PM EDT) Blood Venous blood specimen / Unknown 05/27/2025 10:18 PM EDT 05/27/2025 10:23 PM EDT Comment:Blood Narrative [facility] - 06/02/2025 12:24 AM EST Blood Culture (First) No growth after 5 days. Specimen Source: Blood Generic External Data Provider LAB MICROBIOLOGY - GENERAL ORDERABLES Final Result [facility] [address] [place] [phone] * Blood Culture (Second) (05/27/2025 10:18 PM EDT) Blood Venous blood specimen / Unknown 05/27/2025 10:18 PM EDT 05/27/2025 10:28 PM EDT Comment:Blood Narrative [facility] - 06/02/2025 12:28 AM EST Blood Culture (Second) No growth after 5 days. Specimen Source: Blood Generic External Data Provider LAB MICROBIOLOGY - GENERAL ORDERABLES Final Result Performing Organization Address [facility] Co de Phone Number [facility] [address] [place] [phone] * Lactic Acid (05/27/2025 10:18 PM EDT) Lactic Acid 0.8 0.5 - 2.0 mmol/L [facility] 05/27/2025 10:1 8 PM EDT 05/27/2025 10:23 PM EDT Generic External Data Provider LAB BLOOD ORDERAB LES Final Result Performing Organization Address [facility] de Phone Number [facility] [address] [place] [phone] * (ABNORMAL) Urinalysis, Complete, with Reflex to Culture (05/27/2025 6:49 PM EDT) Color Urine Yellow [facility] Appearance Urine Clear [facility] PH 7.0 5.0 - 9.0 [facility] Glucose Urine UA >=1000(A) Negative mg/dL [facility] Urine Blood Negative Negative [facility] Specific [place] - Urine 1.020 1.005 - 1.025 [facility] Urine Protein Negative Neg-Trace mg/dL [facility] Urine Ketones Negative Negative mg/dL [facility] Nitrite Urine Negative Negative [facility] Leukocyte Esterase Urine Moderate (2+)(A) Negative [facility] RBC Urine 0-2 0 - 2 /HPF [facility] Urine WBC 21-50(A) 0 - 5 /HPF [facility] Urine Squamous Epithelial Cell 0-2 0 - 2 /HPF [facility] Urine Bacteria 4+ None Seen [facility] Hyaline Casts, Urine 0-2 0 - 2 /LPF [facility] 05/27/2025 6:49 PM EDT 05/27/2025 6:51 PM EDT Narrative [facility] - 05/27/2025 7:48 PM EDT Urine, Clean Catch us Generic External Data Provider LAB URINE ORDERAB LES Final Result Performing Organization Address [facility]/ZIP Co de Phone Number [facility] [address] [place] [phone] * Influenza A B2 ID NOW (SEWORKS) (05/27/2025 6:11 PM EDT) IDNOW SERIAL# [id number] [facility] Influenza A Negative Negative [facility] Influenza B2 Negative Negative [facility] Influenza A B2 Note See Note [facility] Comment:The Crowe ID NOW In fluenza [...] EDT us Generic External Data Provider LAB MICROBIOLOGY - GENERAL ORDERABLES Final Result Performing Organization Address City/[facility]/ZIP Co de Phone Number [facility] [address] [place] [phone] * COVID-19 ID NOW ([facility]OW[facility]) (05/27/2025 6:11 PM EDT) Pathologist [facility] IDNOW SERIAL# [id number] [facility] COVID-19 TEST Negative Negative [facility] COVID-19 NOTE See Note [facility] Comment: Results are for the identification of SARS-CoV2 RNA. TheSARS-CoV2 RNA is generally detectable in respiratory samplesduring the acute phase of infection. Positive results areindicative of the presence of SARS-CoV-2 RNA; clinicalcorrelation with patient history and other diagnosticinformation is necessary to determine patient infectionstatus. Positive results do not rule out bacterial infectionor co- infection with other viruses.Testing facilities within the [facility] and [facility] are required to report all positive [...] use by authorized laboratories.Testing performed on the Crowe ID NOW utilizing NAAT. 05/27/2025 6:11 PM EDT 05/27/2025 6:15 PM EDT us Generic External Data Provider LAB MOLECULAR NELSON GNOSTICS ORDERABLES Final Result [facility] [address] [place] [phone] * (ABNORMAL) CBC auto differential (05/27/2025 6:11 PM EDT) Pathologist [facility] White Blood Count 10.8 4.8 - 10.8 X10*3/uL [facility] Red Blood Count 3.95(L) 4.20 - 5.50 X10*6/uL [facility] Hemoglobin 12.2 12.0 - 16.0 g/dl [facility] Hematocrit 38.1 37.0 - 47.0 % [facility] Mean Corpuscular Volume 96.5 80.0 - 98.0 fL [facility] Mean Corpuscular Hemoglobin 30.9 27.0 - 33.0 pg [facility] Mean Corpuscular HGB Conc 32.0 31.0 - 35.0 g/dl [facility] Red Cell Distribution Width 14.6 11.0 - 16.0 % [facility] Platelet Count 179 160 - 400 X10*3/uL [facility] Mean Platelet Volume 11.3 9.4 - 12.3 fL [facility] Neutrophils Percent Auto 78.5(H) 45 - 73 % [facility] Imm Gran Pct Auto 0.4 0.0 - 0.4 % [facility] Lymphocytes Percent Auto 11.9(L) 20 - 40 % [facility] Monocytes Percent Auto 6.0 2 - 11 % [facility] Eosinophils Percent Auto 2.9 0 - 4 % [facility] Basophils Percent Auto 0.3 0 - 2 % [facility] NRBC Pct Auto 0.0 0.0 - 0.2 /100WBC [facility] Neutrophils Absolute Auto 8.4(H) 2.0 - 8.3 x10*3/uL [facility] Imm Gran Abs Auto 0.04(H) 0.00 - 0.03 X10*3/uL [facility] Lymphocytes Absolute Auto 1.3 1.2 - 4.9 X10*3/uL [facility] Monocytes Absolute Auto 0.7 0.1 - 1.2 X10*3/uL [facility] Eosinophils Absolute Auto 0.3 0.0 - 0.4 X10*3/uL [facility] Basophils Absolute Auto 0.0 0.0 - 0.2 X10*3/uL [facility] NRBC Abs Auto 0.000 0.0 - 0.012 X10*3/uL [facility] 05/27/2025 6:11 PM EDT 05/27/2025 6:15 PM EDT us Generic External Data Provider LAB BLOOD ORDERAB LES Final Result [facility] [address] [place] [phone] * (ABNORMAL) Comprehensive Metabolic Panel (05/27/2025 6:11 PM EDT) Sodium 139 135 - 145 mmol/L [facility] Potassium 4.5 3.3 - 5.1 mmol/L [facility] Chloride 98 96 - 108 mmol/L [facility] Carbon Dioxide 34(H) 22 - 29 mmol/L [facility] Anion Gap 12 12 - 20 [facility] Urea Nitrogen (BUN) 38(H) 9 - 16 mg/dL [facility] Creatinine, Serum 1.24 0.5 - 1.4 mg/dL [facility] Creatinine Clr Calc Pharmacy 32.9 [facility] Comment:Provided height and weight: 157.48 cm,94.6 kg.eGFR (calculated from the MDRD study equation) and eCrCl(calculated from the Cockcroft-Gault equation) are based ondifferent parameters and may not yield comparable results.If eCrCl result is absurd, please check patient'sheight/weight. Estimated Glomerular Filt Rate 41 [facility] Comment:Chronic Kidney Disea se: Estimated GFR < 60 mL/min/1.45y2Uvsqmy Kidney Disease: Estimated GFR < 15 mL/min/1.73m2 Glucose 219(H) 60 - 115 mg/dL [facility] Calcium 9.9 8.4 - 10.2 mg/dL [facility] Bilirubin, Total 0.6 0.0 - 1.0 mg/dL [facility] Aspartate Amino Transferase 28 5 - 31 U/L [facility] Alanine Aminotransferase 22 0 - 31 U/L [facility] Total Protein 7.9 6.5 - 8.0 g/dL [facility] Albumin Level 4.0 3.5 - 5.0 g/dL [facility] Alkaline Phosphatase 122(H) 39 - 117 U/L [facility] 05/27/2025 6:11 PM EDT 05/27/2025 6:15 PM EDT Generic External Data Provider LAB BLOOD ORDERAB LES Final Result Performing Organization Address City/[facility]/ZIP Co de Phone Number [facility] [address] [place] [phone] [phone] * Culture, Urine, Routine (05/27/2025 12:00 AM EDT) Urine Urine specimen obtained by clean catch procedure / Unknown 05/27/2025 05/27/2025 Comment:UACC Narrative [facility] - 05/29/2025 10:36 AM EDT Urine Culture Report Result Urine Culture 10,000 to 50,000 cfu/ml Urine Culture Mixed bacterial edilson characteristic of Urine Culture urogenital contamination. Specimen Source: Urine clean catch Result [facility] Generic External Data Provider LAB MICROBIOLOGY - GENERAL ORDERABLES Final Result Performing Organization Address City/[facility]/ZIP Co de Phone Number [facility] [address] [place] [phone] * (ABNORMAL) POCT HGB A1C (03/07/2025 1:53 PM EDT) Hemoglobin A1C 7.6(A) 4.0 - 5.7 % QC Media Lot # [id number] Lot# Expiration Date Blood 03/07/2025 1:53 PM EDT [facility] [employer] DR[employer] POINT OF CARE TEST ENTER/EDIT ORDERABLES Final Result * Referral to Podiatry (01/10/2025) Valeri Legerak DO OUTPATIENT REFERRAL ORDERABL ES Final Result * (ABNORMAL) Albumin, Random Urine W/Creatinine (08/31/2023 4:16 PM EST) Creatinine, Urine 25.77 mg/dL [facility] Microalbumin Urine 31.0 mg/L [facility] Microalbum Creatinine Ratio Ur 120.2(H) <30 ug/mg cr [facility] Comment:Albumin/Creatinine R atio Reference Ranges: Normal: < 30 ug/mg creatinine Microalbuminuria: 30 - 300 ug/mg creatinineClinical Albuminuria: > 300 ug/mg creatinine Urine (Urine, Random) 08/31/2023 4:16 PM EST 08/31/2023 5:27 PM EST Valeri Eduarda LENTZ LAB URINE ORDERABLES Final R esult [facility] [address] [place] [phone] * (ABNORMAL) Lipid Panel, Standard (08/31/2023 4:11 PM EST) Triglycerides 349(H) <150 mg/dL [facility] Comment:Desirable Triglyceri de: less than 150 mg/dLBorderline High Triglyceride 150-199 mg/dLHigh Triglyceride: 200-499 mg/dLVery High Triglyceride: greater than or equal to 5OO mg/dL Cholesterol 149 <200 mg/dL [facility] Comment:Desirable Cholestero l: less than 200 mg/dLBorderline High Cholesterol: 200-239 mg/dLHigh Cholesterol: greater than 239 mg/dL LDL Cholesterol Calculated 41 <100 mg/dL [facility] Comment:Desirable LDL: less than 100 mg/dLNear Optimal/Above Optimal LDL: 110- 129 mg/dLBorderline High LDL: 130-159 mg/dLHigh LDL: 160-189 mg/dLVery High LDL: greater than or equal to 190 mg/dL HDL Cholesterol 39(L) >40 mg/dL [facility] Comment:Desirable HDL: great er than 40 mg/dL Note: This HDL assay may give artificially low results in patients with liver disease. Blood Venous blood specimen / Unknown 08/31/2023 4:11 PM EST 08/31/2023 5:27 PM EST us Valeri Lerner DO LAB BLOOD ORDERABLES Final R esult [facility] [address] [place] [phone] from Last 3 Months or Most Recently Relevant to Health Maintenance Additional Health Concerns Active Problems Noted Date Diagnosed Date Help patients manage their type 2 diabetes 06/12 Weekly blood pressure task 06/12/2025 Help patients manage their type 2 diabetes 06/12 Patient has chronic kidney disease 06/12/2025 Weekly blood pressure task 06/12/2025 Patient has chronic kidney disease 06/12/2025 Weekly blood pressure task 06/13/2025 Weekly blood pressure task 06/13/2025 Patient has chronic kidney disease 06/13/2025 Patient has chronic kidney disease 06/13/2025 Weekly blood pressure task 06/13/2025 Weekly blood pressure task 06/13/2025 Patient has chronic kidney disease 06/13/2025 Patient has chronic kidney disease 06/13/2025 Weekly blood pressure task 06/13/2025 Weekly blood pressure task 06/13/2025 Patient has chronic kidney disease 06/13/2025 Patient has chronic kidney disease 06/13/2025 Insurance [facility] STANDARD [facility] DUAL COMPLETE Care Teams Director Data Processing Relationship Specialty Start Date End Date Valeri Lerner DO [address] [place] [phone] PCP - General Family Medicine 07/13/12 [employer] 12/08/23
--- OUTSIDE RECORDS SUMMARY | 2025-06-13 19:53 | XMS_ITS | Encounter Summary ---
Author Organization [email or web address] Address [address] [place] [address] 7[address] [place] [address] Care Team Providers Care Procurement Specialist Name Role Phone Valeri Lerner DO Primary Care Provider + [phone] Reason for Visit * Reason Comments Med Refill Encounter Details Date Type Department Care Team (Late st Contact Info) Description 04/24/2025 Refill [facility] [address] [place], [place] [phone] Valeri Lerner DO [address] [place], [place] [phone] Social History Tobacco Use Types Packs/Day Years [...] Description 07/04/2025 1:00 PM EST Office Visit [facility] [address] [place], [place] [phone] Diana Eric MD [address] [place] [address] documented as of this encounter Goals Goal [...] Result Component 7.6( 1:53 PM EDT) No Charyia Batsheva, PharmD documented as of this encounter Visit Diagnoses Not on filedocumented in this encounter Additional Health Concerns Assessment Noted Time PHQ-9 Depression Total Score: 0 07/15/20 24 11:32 AM EST documented as of this encounter Care Teams Procurement Specialist Relationship Specialty Start Date End Date Valeri Lerner DO [address] [place] [address] PCP - General Family Medicine 07/13/12 [employer] 12/08/23 documented as of this encounter
--- OUTSIDE RECORDS SUMMARY | 2025-06-13 19:53 | XMS_ITS | Encounter Summary ---
Author Organization [facility] Address [address] [place] [phone] Care Team Providers Care Repossession Agent Name Role Phone Valeri Lerner DO Primary Care Provider +1- [phone] Encounter Details Date Type Department Care Team (Late st Contact Info) Description 11/04/2024 Lab Requisition [facility] - Main Lab [address] [facility] [place] [address] Amrita Polanco MD [address] [place] [phone] Unspecified atrial fibrillation (CMS/HCC V24, CMS/HCC V28) [...] sec LAB COAGULATION METHOD 11/04/2024 11:56 AM [facility] INR 1.4 LAB COAGULATION METHOD 11/04/2024 11:56 AM [facility] Blood Venous blood specimen / Unknown Venipuncture / Unknown 11/04/2024 8:39 AM EDT 11/04/2024 11:00 AM EDT us Amrita Polanco MD LAB BLOOD ORDERABLES Final Resu lt [facility] ([facility] [address] [place] [address], documented in this encounter Visit Diagnoses Diagnosis Unspecified atrial fibrillation (CMS/HCC V24, CMS/HCC V28) documented in this encounter Care Teams Repossession Agent Relationship Specialty Start Date End Date Valeri Lerner DO [address] [place] [address] PCP - General 11/15/14 documented as of this encounter
--- OUTSIDE RECORDS SUMMARY | 2025-06-13 19:53 | XMS_ITS | Encounter Summary ---
Author Organization [employer] Address [address] [facility] 7t [place] [address] Care Team Providers Care Glove Printer Name Role Phone Valeri Lerner DO Primary Care Provider Batsheva Gomez PharmD Unavailable Reason for Visit * Reason Comments Med Refill Encounter Details Date Type Department Care Team (Late st Contact Info) Description 09/12/2023 Refill [facility] [address] [place] [address] Valeri Lerner DO [address] [place] [address] Generalized anxiety disorder Social History Tobacco Use [...] the past 12 months, has t he invi, [employer], [employer] or water [employer] threatened to shut off services in your [...] Description 07/04/2025 1:00 PM EST Office Visit [facility] [address] [place] [phone] Diana Eric MD [address] [place] [address] documented as of this encounter Visit Diagnoses Diagnosis Generalized anxiety disorder documented in this encounter Additional Health Concerns Assessment Noted Time PHQ-9 Depression Total Score: 2 08/23/19 24 11:01 AM EST documented as of this encounter Care Teams Glove Printer Relationship Specialty Start Date End Date Valeri Lerner DO [address] [place] [phone] PCP - General Family Medicine 07/13/12 Batsheva Gomez PharmD [address] [place] [address] Pharmacist Internal Medicine 03/07/24 12/19/24 [email or web address] 12/08/23 documented as of this encounter
--- OUTSIDE RECORDS SUMMARY | 2025-06-13 19:53 | XMS_ITS | Clinical Summary ---
Author Organization [address] Address [address] [place] [phone] Phone Care Team Providers Care Multi Needle Machine Operator Name Role Phone Lee Ann Lernernifer Kaykay LENTZ Primary Care Provider +1- [phone] Encounters Date Type Department Care Team Description 06/11/2025 Lab Requisition [facility] [address] [place] [phone] Macario Green MD Unspecified atrial fibrillation (CMS/HCC V24, CMS/HCC V28) 06/10/2025 Lab Requisition [facility] [address] [place] [phone] Macario Green MD Unspecified atrial fibrillation (CMS/HCC V24, CMS/HCC V28) 06/09/2025 Lab Requisition [facility] [address] [place] [phone] Macario Green MD Unspecified atrial fibrillation (CMS/HCC V24, CMS/HCC V28) 06/07/2025 Lab Requisition [facility] [address] [place] [phone] Macario Green MD alf (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 06/05/2025 Lab Requisition [facility] [address] [place] [address] Macario Green MD Unspecified atrial fibrillation (CMS/HCC V24, CMS/HCC V28) 06/04/2025 Lab Requisition [facility] [address] [place] [address] Macario Green MD Paroxysmal atrial fibrillation ([facility] V24, [facility] V28) 06/03/2025 Lab Requisition [facility] [address] [place] [address] Macario Green MD Heart failure, unspecified ([facility] V24, [facility] V28); Essential (primary) hypertension; Paroxysmal atrial fibrillation ([facility] V24, [facility] V28); alf (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 06/02/2025 Lab Requisition [facility] [address] [place] [address] Macario Green MD manager terminal (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 05/30/2025 Lab Requisition [facility] [address] [place] [address] Macario Green MD Type 2 diabetes mellitus with diabetic polyneuropathy ([facility] V24, [facility] V28); Hyperlipidemia, unspecified; Chronic atrial fibrillation, unspecified ([facility] V24, [facility] V28); Essential (primary) hypertension; manager terminal (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 from Last 3 Months Social History Tobacco Use Types Packs/Day Years Used Date Smoking Tobacco: Never Assessed Comments Unknown Sex and Gender Information Value Date Recorded Sex Assigned at Not on file Legal Sex Female 9:10 PM EST Gender Identity Not on file Sexual Orientation Not on file Plan of Treatment Health Maintenance Due Date Last Done Comments Diabetes: Annual Retina Eye Exam 1945 Falls Risk Assessment 08/25/2023 Osteoporosis Screening (Bone Density Screening) 08/25/2023 Social Influencers of Health Screening 08/25/2023 Depression Screening 07/31/2024 COVID-19 Vaccine ( season) 2025 04/26/2024, 12/26/2023, 08/23/2023, Additional history exists Influenza Vaccine (#1) 2025 , 08/23/2023, 08/08/2022, Additional history exists Diabetes: Blood Sugar Control Test (HGBA1C) 09/07/2025 03/07/2025, 10/30/2024, 07/15/2024 Diabetes: Annual Foot Exam 01/10/2026 01/10/2025 Hypertension/CHF/CAD Annual BMP Blood Test 05/30/2026 05/30/2025, 05/27/2025, 03/07/2025, Additional history exists Cholesterol Screening (Lipid Panel) 08/31/2028 08/31/2023 DTaP,Tdap,and [...] Diagnosis Comments PROTHROMBIN TIME WITH INR Routine 06/12/2025 7:54 AM EST Unspecified atrial fibrillation (CMS/HCC V24, CMS/HCC V28) PROTHROMBIN TIME WITH INR Routine 06/10/2025 6:10 AM EST Unspecified atrial fibrillation (CMS/HCC V24, CMS/HCC V28) PROTHROMBIN TIME WITH INR Routine 06/09/2025 8:05 AM EST Unspecified atrial fibrillation (CMS/HCC V24, CMS/HCC V28) PROTHROMBIN TIME WITH INR Routine 06/07/2025 5:28 AM EST manager terminal (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 PROTHROMBIN TIME WITH INR Routine 06/05/2025 7:00 AM EST Unspecified atrial fibrillation (CMS/HCC V24, CMS/HCC V28) PROTHROMBIN TIME WITH INR Routine 06/04/2025 5:27 AM EST Paroxysmal atrial fibrillation (CMS/HCC V24, CMS/HCC V28) PROTHROMBIN TIME WITH INR Routine 06/03/2025 6:05 AM EST Heart failure, unspecified (CMS/HCC V24, CMS/HCC V28) Essential (primary) hypertension Paroxysmal atrial fibrillation (CMS/HCC V24, CMS/HCC V28) alf (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 PROTHROMBIN TIME WITH INR Routine 06/02/2025 6:24 AM EST alf (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 PROTHROMBIN TIME WITH INR Routine 05/30/2025 6:09 AM EDT 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, CMS/HCC V28) Hyperlipidemia, unspecified Chronic atrial fibrillation, unspecified (CMS/HCC V24, CMS/HCC V28) Essential (primary) hypertension alf (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 BASIC METABOLIC PANEL Routine 05/30/2025 6:09 AM EDT 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, CMS/HCC V28) Hyperlipidemia, unspecified Chronic atrial fibrillation, unspecified (CMS/HCC V24, CMS/HCC V28) Essential (primary) hypertension alf (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 COMPLETE BLOOD COUNT Routine 05/30/2025 6:09 AM EDT 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, CMS/HCC V28) Hyperlipidemia, unspecified Chronic atrial fibrillation, unspecified (CMS/HCC V24, CMS/HCC V28) Essential (primary) hypertension manager terminal (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 HEMOGLOBIN A1C Routine 10/30/2024 7:51 AM EDT Type 2 diabetes mellitus without complications from Last 3 Months or Most Recently Relevant to Health Maintenance Results * (ABNORMAL) Prothrombin time with INR (06/12/2025 7:54 AM EST) Only the most recent of9 resultswithin the time period is included. Pathologist [facility] Protime 23.4(H) 10.6 - 13.9 sec LAB COAGULATION METHOD 06/12/2025 10:[address] [facility] INR 1.9 LAB COAGULATION METHOD 06/12/2025 10:[address] [facility] Blood Venous blood specimen / Unknown Venipuncture / Unknown 06/12/2025 7:54 AM EST 06/12/2025 10:16 AM EST us Macario Green MD LAB BLOOD ORDERABLES Final R esult [facility] [address] [place] [address], [place] [phone] * (ABNORMAL) Complete blood count (05/30/2025 6:09 AM EDT) [facility] WBC 7.2 4.8 - 10.8 K/mcL LAB HEMETOLOGY METHOD 05/30/2025 11:[address] [facility] RBC 3.80 3.80 - 4.80 M/mcL LAB HEMETOLOGY METHOD 05/30/2025 11:[address] [facility] Hemoglobin 11.7 11.5 - 16.0 g/dL LAB HEMETOLOGY METHOD 05/30/2025 11:[address] [facility] Hematocrit 37.9 35.0 - 47.0 % LAB HEMETOLOGY METHOD 05/30/2025 11:[address] [facility] MCV 99.5(H) 79.0 - 98.0 FL LAB HEMETOLOGY METHOD 05/30/2025 11:[address] [facility] MCH 30.7 27.0 - 32.0 pcg LAB HEMETOLOGY METHOD 05/30/2025 11:[address] [facility] MCHC 30.9(L) 32.0 - 37.0 g/dL LAB HEMETOLOGY METHOD 05/30/2025 11:[address] [facility] RDW 14.6 11.0 - 15.0 % LAB HEMETOLOGY METHOD 05/30/2025 11:09 AM [facility] Platelets 166 130 - 400 K/mcL LAB HEMETOLOGY METHOD 05/30/2025 11:09 AM [facility] MPV 11.8(H) 7.0 - 11.0 FL LAB HEMETOLOGY METHOD 05/30/2025 11:09 AM [facility] NRBC 0.0 <1.0 % LAB HEMETOLOGY METHOD 05/30/2025 11:09 AM [facility] NRBC Absolute 0.00 <0.10 K/mcL LAB HEMETOLOGY METHOD 05/30/2025 11:09 AM [facility] Blood Venous blood specimen / Unknown Venipuncture / Unknown 05/30/2025 6:09 AM EDT 05/30/2025 9:50 AM EDT us Macario Green MD LAB BLOOD ORDERABLES Final R esult [facility] [address] [place] [address], * (ABNORMAL) Basic metabolic panel (05/30/2025 6:09 AM EDT) Sodium 140 133 - 145 mmol/L LAB CHEMISTRY METHOD 05/30/2025 11:24 AM [facility] Potassium 4.1 3.5 - 5.5 mmol/L LAB CHEMISTRY METHOD 05/30/2025 11:24 AM [facility] Chloride 102 96 - 110 mmol/L LAB CHEMISTRY METHOD 05/30/2025 11:24 AM [facility] CO2 35(H) 21 - 32 mmol/L LAB CHEMISTRY METHOD 05/30/2025 11:24 AM [facility] Anion Gap 3 3 - 11 LAB CHEMISTRY METHOD 05/30/2025 11:24 AM [facility] Glucose 119(H) 70 - 100 mg/dL LAB CHEMISTRY METHOD 05/30/2025 11:24 AM [facility] BUN 26(H) 5 - 25 mg/dL LAB CHEMISTRY METHOD 05/30/2025 11:24 AM [facility] Creatinine 1.13(H) 0.50 - 1.10 mg/dL LAB CHEMISTRY METHOD 05/30/2025 11:24 AM [facility] eGFR 47(L) >=60 mL/min/1. 73m2 LAB CHEMISTRY METHOD 05/30/2025 11:24 AM [facility] Comment:Calculation based on the Chronic Kidney Disease Epidemiology Collaboration (CKD-EPI) equation refit without adjustment for race. BUN/Creatinine Ratio 23.0 LAB CHEMISTRY METHOD 05/30/2025 11:24 AM [facility] Calcium 9.5 8.5 - 10.5 mg/dL LAB CHEMISTRY METHOD 05/30/2025 11:24 AM [facility] Blood Venous blood specimen / Unknown Venipuncture / Unknown 05/30/2025 6:09 AM EDT 05/30/2025 9:50 AM EDT Macario Green MD LAB BLOOD ORDERABLES Final R esult Performing Organization Address [facility]/ZIP Co de Phone Number [facility] [address] [place] [address], [place] [phone] * (ABNORMAL) Hemoglobin A1c (10/30/2024 7:51 AM EDT) Hemoglobin A1C 7.4(H) <6.5 % LAB CHEMISTRY METHOD 10/30/2024 1:[address] [facility] Mean Bld Glu Estim. 166 mg/dL LAB CHEMISTRY METHOD 10/30/2024 1:[address] [facility] Blood Venous blood specimen / Unknown Venipuncture / Unknown 10/30/2024 7:51 AM EDT 10/30/2024 10:03 AM EDT Kymberly Horne MD LAB BLOOD ORDERABLES Fin al Result Performing Organization Address [facility] Co de Phone Number [facility] [address] [place] [address], [place] [phone] from Last 3 Months or Most Recently Relevant to Health Maintenance Insurance [facility] [place] [id number] MEDICAID [place] Care Teams Multi Needle Machine Operator Relationship Specialty Start Date End Date Valeri Lerner DO [address] [place] [address] PCP - General 11/15/14
--- OUTSIDE RECORDS SUMMARY | 2025-06-13 19:53 | XMS_ITS | Encounter Summary ---
Author Organization [facility] Address [address] [place] [phone] Care Team Providers Care Marzipan Molder Name Role Phone Valeri Lerner DO Primary Care Provider +1- [phone] Encounter Details Date Type Department Care Team (Late st Contact Info) Description 11/01/2024 Lab Requisition [facility] - Main Lab [address] [facility] [place] [address] Amrita Polanco MD [address] [place] [phone] Heart failure, unspecified (CMS/HCC V24, CMS/HCC V28) [...] sec LAB COAGULATION METHOD 11/01/2024 9:58 AM [facility] INR 1.2 LAB COAGULATION METHOD 11/01/2024 9:58 AM [facility] Blood Venous blood specimen / Unknown Venipuncture / Unknown 11/01/2024 6:48 AM EDT 11/01/2024 9:35 AM EDT us Amrita Polanco MD LAB BLOOD ORDERABLES Final Resu lt [facility] ([facility]) [facility] [address] [place] [address], documented in this encounter Visit Diagnoses Diagnosis Heart failure, unspecified (CMS/HCC V24, CMS/HCC V28) Heart failure, unspecified documented in this encounter Care Teams Marzipan Molder Relationship Specialty Start Date End Date Valeri Lerner DO [address] [place] [address] PCP - General 11/15/14 documented as of this encounter
--- OUTSIDE RECORDS SUMMARY | 2025-06-13 19:53 | XMS_ITS | Encounter Summary ---
Author Organization [facility] Address [address] [place] [phone] Care Team Providers Care Network Contract Manager Name Role Phone Valeri Lerner DO Primary Care Provider +1- [phone] Encounter Details Date Type Department Care Team (Late st Contact Info) Description 10/30/2024 Lab Requisition [facility] - Main Lab [address] [place] [address] Kymberly Horne MD [address] [phone] Type 2 diabetes mellitus without complications (CMS/HCC [...] LAB CHEMISTRY METHOD 10/30/2024 1:50 PM EDT [facility] Mean Bld Glu Estim. 166 mg/dL LAB CHEMISTRY METHOD 10/30/2024 1:50 PM EDT [facility] Blood Venous blood specimen / Unknown Venipuncture / Unknown 10/30/2024 7:51 AM EDT 10/30/2024 10:03 AM EDT us Kymberly Horne MD LAB BLOOD ORDERABLES Fin al Result [facility] [address] [place] [address], documented in this encounter Visit Diagnoses Diagnosis Type 2 diabetes mellitus without complications (CMS/HCC V24, CMS/HCC V28) documented in this encounter Care Teams Network Contract Manager Relationship Specialty Start Date End Date Valeri Lerner DO [address] [place] [address] PCP - General 11/15/14 documented as of this encounter
--- OUTSIDE RECORDS SUMMARY | 2025-06-13 19:53 | XMS_ITS | Encounter Summary ---
Author Organization [employer] Address [address] [facility] 7t [place] [address] Care Team Providers Care Laundry Folder Name Role Phone Valeri Lerner DO Primary Care Provider Batsheva Gomez PharmD Unavailable [phone] Reason for Visit * Reason Onset Date Comments Nurse Triage 01/18/2024 Encounter Details Date Type Department Care Team (Late st Contact Info) Description 01/18/2024 Telephone [facility] MEDICINE 230 [place], [place] [phone] Valeri Lerner DO 230 [place], [place] [phone] Nurse Triage Social History Tobacco Use Types [...] the past 12 months, has t he [employer], gas, oil or water company threatened to [...] Artemio with [facility] on any medication changes [phone]. Daughter made aware of home care recommendations, [...] questions were negative * Telephone Encounter - Yoyl Kemp - 01/18/2024 11:19 AM EDT Symptom: Abdominal Pain - Female - Not Outcome: Schedule an urgent appointment (within 4 hours) or talk to a nurse or provider soon Reason: Started within the past 3 days The caller accepted this outcome Please contact pt at [phone] documented in this encounter Plan of Treatment Upcoming Encounters Date Type Department Care Team (Late st Contact Info) Description 07/04/2025 1:00 PM EST Office Visit [facility] MEDICINE [address] [place] [address] [phone] Diana Eric MD 230 [place], [place] [phone] documented as of this encounter Visit Diagnoses Not on filedocumented in this encounter Additional Health Concerns Assessment Noted Time PHQ-9 Depression Total Score: 2 08/23/19 24 11:01 AM EST documented as of this encounter Care Teams Laundry Folder Relationship Specialty Start Date End Date Valeri Lerner DO [address] [place] [address] PCP - General Family Medicine 07/13/12 Batsheva Gomez PharmD [address] [place] [address] [phone] Pharmacist Internal Medicine 03/07/24 12/19/24 [employer] 12/08/23 documented as of this encounter
--- OUTSIDE RECORDS SUMMARY | 2025-06-13 19:53 | XMS_ITS | Encounter Summary ---
Author Organization [employer] Address [address] [facility] 7t [place] [address] Care Team Providers Care School Program Director Name Role Phone Valeri Lerner DO Primary Care Provider [phone] Batsheva Gomez PharmD Unavailable [phone] Reason for Visit * Reason Comments Med Refill Encounter Details Date Type Department Care Team (Late st Contact Info) Description 06/20/2023 Refill [facility] MEDICINE 230 [place] [address] Valeri Lerner DO 230 [place] [address] Generalized anxiety disorder Social History Tobacco Use [...] Description 07/04/2025 1:00 PM EST Office Visit [facility] MEDICINE [address] [place] [phone] Diana Eric MD [address] [place] [address] documented as of this encounter Visit Diagnoses Diagnosis Generalized anxiety disorder documented in this encounter Care Teams School Program Director Relationship Specialty Start Date End Date Valeri Lerner DO [address] [place] [address] PCP - General Family Medicine 07/13/12 Batsheva Gomez PharmD [address] [place] [address] Pharmacist Internal Medicine 03/07/24 12/19/24 [employer] 12/08/23 documented as of this encounter
--- OUTSIDE RECORDS SUMMARY | 2025-06-13 19:53 | XMS_ITS | Encounter Summary ---
Author Organization [employer] Address [address] [facility] 7t [place] [address] Care Team Providers Care Water Softener Servicer Name Role Phone Valeri Lerner DO Primary Care Provider [phone] Batsheva Gomez PharmD Unavailable [phone] Reason for Visit * Reason Comments Med Refill Encounter Details Date Type Department Care Team (Late st Contact Info) Description 06/20/2023 Refill [facility] MEDICINE 230 [place] [address] Valeri Lerner DO 230 [place] [address] Social History Tobacco Use Types Packs/Day Years Used Date Smoking Tobacco: Never Passive Smoke Exposure: Never Smokeless Tobacco: Never Alcohol Use Standard Drinks/Week Comments Never 0 (1 standard drink = 0.6 oz pur e alcohol) Housing Stability Answer Date Recorded What is your housing situation today? I have florence[employer]dez burger 05/20/[address] you [...] Description 07/04/2025 1:00 PM EST Office Visit [facility] MEDICINE [address] [place] [address] Diana Eric MD 230 [place] [address] documented as of this encounter Visit Diagnoses Not on filedocumented in this encounter Care Teams Water Softener Servicer Relationship Specialty Start Date End Date Valeri Lerner DO [address] [place] [address] PCP - General Family Medicine 07/13/12 Batsheva Gomez PharmD [address] [place] [address] Pharmacist Internal Medicine 03/07/24 12/19/24 [employer] 12/08/23 documented as of this encounter
--- OUTSIDE RECORDS SUMMARY | 2025-06-13 19:53 | XMS_ITS | Encounter Summary ---
Author Organization [facility] Address [address] [place] [phone] Care Team Providers Care Senior Clinical Data Analyst Name Role Phone Valeri Lerner DO Primary Care Provider [phone]- [phone] Encounter Details Date Type Department Care Team (Latest Contact Info) Description 10/22/2024 Lab Requisition [facility] - Main Lab [address] [facility] [place] [address] Amrita Polanco MD [address] [place] [address] Essential (primary) hypertension; Unspecified atrial fibrillation (CMS/HCC [...] mmol/L LAB CHEMISTRY METHOD 10/22/2024 11:07 AM [facility] Potassium 3.6 3.5 - 5.5 mmol/L LAB CHEMISTRY METHOD 10/22/2024 11:07 AM [facility] Chloride 105 96 - 110 mmol/L LAB CHEMISTRY METHOD 10/22/2024 11:07 AM [facility] CO2 30 21 - 32 mmol/L LAB CHEMISTRY METHOD 10/22/2024 11:07 AM [facility] Anion Gap 7 3 - 11 LAB CHEMISTRY METHOD 10/22/2024 11:07 AM [facility] Glucose 85 70 - 100 mg/dL LAB CHEMISTRY METHOD 10/22/2024 11:07 AM [facility] BUN 22 5 - 25 mg/dL LAB CHEMISTRY METHOD 10/22/2024 11:07 AM [facility] Creatinine 1.22(H) 0.50 - 1.10 mg/dL LAB CHEMISTRY METHOD 10/22/2024 11:07 AM [facility] eGFR 43(L) >=60 mL/min/1. 73m2 LAB CHEMISTRY METHOD 10/22/2024 11:07 AM [facility] Comment:Calculation based on the Chronic Kidney Disease Epidemiology Collaboration (CKD-EPI) equation refit without adjustment for race. BUN/Creatinine Ratio 18.0 LAB CHEMISTRY METHOD 10/22/2024 11:07 AM [facility] Calcium 9.9 8.5 - 10.5 mg/dL LAB CHEMISTRY METHOD 10/22/2024 11:07 AM [facility] Blood Venous blood specimen / Unknown Venipuncture / Unknown 10/22/2024 6:16 AM EDT 10/22/2024 9:34 AM EDT us Amrita Polanco MD LAB BLOOD ORDERABLES Final Resu lt [facility] [address] [place] [address], [place] [phone] * (ABNORMAL) Prothrombin time with INR (10/22/2024 6:16 AM EDT) Pathologist [facility] Protime 36.0(H) 10.6 - 13.9 sec LAB COAGULATION METHOD 10/22/2024 10:31 AM EDT [facility] INR 2.9 LAB COAGULATION METHOD 10/22/2024 10:31 AM EDT [facility] Blood Venous blood specimen / Unknown Venipuncture / Unknown 10/22/2024 6:16 AM EDT 10/22/2024 9:34 AM EDT us Amrita Polanco MD LAB BLOOD ORDERABLES Final Resu lt Performing Organization Address [facility]/ZIP Co de Phone Number [facility] [address] [place] [address], [place] [phone] * (ABNORMAL) Complete blood count (10/22/2024 6:16 AM EDT) [facility] WBC 9.2 4.8 - 10.8 K/[facility] LAB HEMETOLOGY METHOD 10/22/2024 10:30 AM EDT [facility] RBC 3.70(L) 3.80 - 4.80 M/[facility] LAB HEMETOLOGY METHOD 10/22/2024 10:30 AM EDT [facility] Hemoglobin 11.4(L) 11.5 - 16.0 g/dL LAB HEMETOLOGY METHOD 10/22/2024 10:30 AM EDT [facility] Hematocrit 35.8 35.0 - 47.0 % LAB HEMETOLOGY METHOD 10/22/2024 10:30 AM EDT [facility] MCV 96.8 79.0 - 98.0 FL LAB HEMETOLOGY METHOD 10/22/2024 10:30 AM EDT [facility] MCH 30.8 27.0 - 32.0 pcg LAB HEMETOLOGY METHOD 10/22/2024 10:30 AM EDT [facility] MCHC 31.8(L) 32.0 - 37.0 g/dL LAB HEMETOLOGY METHOD 10/22/2024 10:30 AM EDT [facility] RDW 13.8 11.0 - 15.0 % LAB HEMETOLOGY METHOD 10/22/2024 10:30 AM EDT [facility] Platelets 328 130 - 400 K/mcL LAB HEMETOLOGY METHOD 10/22/2024 10:30 AM EDT [facility] MPV 10.9 7.0 - 11.0 FL LAB HEMETOLOGY METHOD 10/22/2024 10:30 AM EDT [facility] NRBC 0.0 <1.0 % LAB HEMETOLOGY METHOD 10/22/2024 10:30 AM EDT [facility] NRBC Absolute 0.00 <0.10 K/mcL LAB HEMETOLOGY METHOD 10/22/2024 10:30 AM [facility] Blood Venous blood specimen / Unknown Venipuncture / Unknown 10/22/2024 6:16 AM EDT 10/22/2024 9:34 AM EDT us Amrita Polanco MD LAB BLOOD ORDERABLES Final Resu lt [facility] [address] [place] [address], documented in this encounter Visit Diagnoses Diagnosis Essential (primary) hypertension Unspecified essential hypertension Unspecified atrial fibrillation (CMS/HCC V24, CMS/HCC V28) Type 2 diabetes mellitus without complications (CMS/HCC V24, CMS/HCC V28) documented in this encounter Care Teams Senior Clinical Data Analyst Relationship Specialty Start Date End Date Valeri Lerner DO [address] [place], [place] PCP - General 11/15/14 documented as of this encounter
--- OUTSIDE RECORDS SUMMARY | 2025-06-13 19:53 | XMS_ITS | Encounter Summary ---
Author Organization [employer] Address [address] [place] [address] 7t [place] [address] Care Team Providers Care Public Space Attendant Name Role Phone Valeri Lerner DO Primary Care Provider [phone] Batsheva Gomez PharmD Unavailable [phone] Encounter Details Date Type Department Care Team (Late st Contact Info) Description 09/23/2022 Abstract [facility] MEDICINE [address] [place] [address] Valeri Lerner DO 230 [place] [address] Social History Tobacco Use Types Packs/Day Years [...] Description 07/04/2025 1:00 PM EST Office Visit [facility] MEDICINE [address] [place], [place] [phone] Diana Eric MD [address] [place], [place] [phone] documented as of this encounter Visit Diagnoses Not on filedocumented in this encounter Care Teams Public Space Attendant Relationship Specialty Start Date End Date Valeri Lerner DO [address] [place], [place] [phone] PCP - General Family Medicine 07/13/12 Batsheva Gomez PharmD [address] [place], [place] [phone] Pharmacist Internal Medicine 03/07/24 12/19/24 [email or web address] 12/08/23 documented as of this encounter
--- OUTSIDE RECORDS SUMMARY | 2025-06-13 19:53 | XMS_ITS | Encounter Summary ---
Author Organization [employer] Address [address] [facility] 7t [place] [address] Care Team Providers Care Foley Artist Name Role Phone Valeri Lerner DO Primary Care Provider Batsheva Gomez PharmD Unavailable [phone] Reason for Visit * Reason Onset Date Comments FYI 10/08/2024 Encounter Details Date Type Department Care Team (Late st Contact Info) Description 10/08/2024 Telephone [facility] MEDICINE 230 [place], [place] [phone] Valeri Lerner DO 230 [place], [place] [phone] Social History Tobacco Use Types Packs/Day Years [...] the past 12 months, has t he [employer], gas, oil or water [employer] threatened to shut off services in your [...] will like a callback TODAY from nurse [phone] documented in this encounter Plan of Treatment Upcoming Encounters Date Type Department Care Team (Late st Contact Info) Description 07/04/2025 1:00 PM EST Office Visit [facility] MEDICINE [address] [place] [address] Diana Eric MD [address] [place] [address] documented as of this encounter Goals Goal [...] documented as of this encounter Care Teams Foley Artist Relationship Specialty Start Date End Date Valeri Lerner DO [address] [place] [address] PCP - General Family Medicine 07/13/12 Batsheva Gomez, CecilyD [address] [place] [address] Pharmacist Internal Medicine 03/07/24 12/19/24 [employer] 12/08/23 documented as of this encounter
--- OUTSIDE RECORDS SUMMARY | 2025-06-13 19:53 | XMS_ITS | Encounter Summary ---
Author Organization [employer] Address [address] [facility] 7t [place] [address] Care Team Providers Care Investigation Clerk Name Role Phone EduardaValeri Primary Care Provider [phone] Batsheva Gomez PharmD Unavailable [phone] Encounter Details Date Type Department Care Team (Late st Contact Info) Description 09/29/2022 Abstract [facility] AD[facility] DENTAL 230 [place] [address] Sebastian Fierro DDS [address] [place] [address] Social History Tobacco Use Types Packs/Day Years [...] Description 07/04/2025 1:00 PM EST Office Visit [facility] MEDICINE [address] [place], [place] [phone] Diana Eric MD 230 [place], [place] [phone] documented as of this encounter Visit Diagnoses Not on filedocumented in this encounter Care Teams Investigation Clerk Relationship Specialty Start Date End Date Valeri Lerner DO 230 [place], [place] [phone] PCP - General Family Medicine 07/13/12 Batsheva Gomez PharmD 230 [place], [place] [phone] Pharmacist Internal Medicine 03/07/24 12/19/24 [employer] 12/08/23 documented as of this encounter
--- OUTSIDE RECORDS SUMMARY | 2025-06-13 19:53 | XMS_ITS | Encounter Summary ---
Author Organization [employer] Address [address] [facility] 7t [place] [address] Care Team Providers Care Shochet Name Role Phone Valeri Lerner DO Primary Care Provider [phone] Batsheva Gomez PharmD Unavailable [phone] Encounter Details Date Type Department Care Team (Late st Contact Info) Description 01/26/2024 Telephone [facility] MEDICINE 230 [place], [place] [phone] Valeri Lerner DO [address] [place], [place] [phone] Social History Tobacco Use Types Packs/Day Years [...] Description 07/04/2025 1:00 PM EST Office Visit [facility] MEDICINE [address] [place] [address] Diana Eric MD [address] [place] [address] documented as of this encounter Visit Diagnoses Not on filedocumented in this encounter Additional Health Concerns Assessment Noted Time PHQ-9 Depression Total Score: 2 08/23/19 24 11:01 AM EST documented as of this encounter Care Teams Shochet Relationship Specialty Start Date End Date Valeri Lerner DO [address] [place] [address] PCP - General Family Medicine 07/13/12 Batsheva Gomez PharmD [address] [place] [address] Pharmacist Internal Medicine 03/07/24 12/19/24 [employer] 12/08/23 documented as of this encounter
--- OUTSIDE RECORDS SUMMARY | 2025-06-13 19:54 | XMS_ITS | Encounter Summary ---
Author Organization [employer] Address [address] [facility] 7t [place] [address] Care Team Providers Care Animal Physiologist Name Role Phone Valeri Lerner DO Primary Care Provider Batsheva Gomez PharmD Unavailable Reason for Visit * Reason Onset Date Comments Nurse Triage 03/25/2024 Encounter Details Date Type Department Care Team (Late st Contact Info) Description 03/25/2024 Telephone [facility] 230 [place], [place] [phone] Valeri Lerner DO 230 [place], [place] [phone] Nurse Triage Social History Tobacco Use Types [...] the past 12 months, has t he [employer], gas, oil or water [employer] threatened to shut off services in your [...] outcome Contact pt visiting nurse Artemio at [phone] documented in this encounter Plan of Treatment Upcoming Encounters Date Type Department Care Team (Late st Contact Info) Description 07/04/2025 1:00 PM EST Office Visit [facility] [address] [place] [address] Diana Eric MD 230 [place] [address] documented as of this encounter Goals Goal [...] documented as of this encounter Care Teams Animal Physiologist Relationship Specialty Start Date End Date Valeri Lerner DO [address] [place] [address] PCP - General Family Medicine 07/13/12 Batsheva Gomez, PharmD [address] [place] [phone] Pharmacist Internal Medicine 03/07/24 12/19/24 [employer] 12/08/23 documented as of this encounter
--- OUTSIDE RECORDS SUMMARY | 2025-06-13 19:54 | XMS_ITS | Encounter Summary ---
Author Organization [employer] Address [address] [facility] 7t [place] [address] Care Team Providers Care Radiology Rn Name Role Phone Valeri Lerner DO Primary Care Provider [phone] Reason for Visit * Reason Comments Transition Of Care (Tcm) HDF scheduled Encounter Details Date Type Department Care Team (Late st Contact Info) Description 06/13/2025 Patient Outreach [facility] MEDICINE 230 [place], [place] [phone] Valeri Lerner DO 230 [place], [place] [phone] Transition Of Care (Tcm) (HDF scheduled) Social History Tobacco Use Types Packs/Day Years [...] as of this encounter Miscellaneous Notes * Significant Event - Joanne Chantal - 06/13/2025 11:21 AM EST 06/13/25 1120 Hospital Discharges and Admission for [facility] Type of Visit Hospital Admission Date of Admission/Visit 05/23/25 Date of Discharge 06/12/25 Facility [facility] Diagnosis heart failure Disposition Discharged Home Follow-Up Actions Follow-Up Needed Provider appointment Follow-Up Outcome Spoke to Caregiver Initial Contact Date 06/13/25 CHANDU Rubio placed outbound call to patient for HDF outreach. Patient's name and were confirmed. Patient educated on the importance of follow up with provider following inpatient admission. Patientoffered an HDF appt. Patient is agreeable to an appointment and has been scheduled for 07/04/2025 at1:00 with [employer] Insurance verified prior to scheduling. Patient advised to bring to appointment a photo id and insurance card. Patient also notified that a [facility] pharmacist will be reaching out to them via telephone prior to their scheduled appointment in order to review their medications in preparation for their appointment. Patient provided with education on contacting the [facility] er with any questions or concerns prior to the scheduled appointment. Patient educated on extended clinic hours on Mondays and Wednesdays, and Walk-In Urgent Care Located in [facility] of [facility]. Patient provided with after-hours line for [facility], , which offer night time triage service and option to transfer to engineering operations leader provider if needed. Discharge summary has been scanned into [employer]. documented in this encounter Plan of Treatment Upcoming Encounters Date Type Department Care Team (Late st Contact Info) Description 07/04/2025 1:00 PM EST Office Visit [facility] MEDICINE 230 [place], [place] [phone] Diana Eric MD 230 [place], [place] [phone] documented as of this encounter Goals Goal [...] 1:53 PM EDT) No Batsheva Gomez, PharmD Help patients manage their type 2 diabetes Care Plan Help patients manage their type 2 diabetes No Michaela Rollins, SHIRLEY Weekly blood pressure task Care Plan Weekly blood pressure task No Michaela Rollins, RN Help patients manage their type 2 diabetes Care Plan Help patients manage their type 2 diabetes No Michaela Rollins, RN Patient has chronic kidney disease Care Plan Patient has chronic kidney disease No Michaela Rollins, RN Weekly blood pressure task Care Plan Weekly blood pressure task No Michaela Rollins, RN Patient has chronic kidney disease Care Plan Patient has chronic kidney disease No Michaela Rollins, RN Weekly blood pressure task Care Plan Weekly blood pressure task No Klaus Levi Weekly blood pressure task Care Plan Weekly blood pressure task No Klaus Levi Patient has chronic kidney disease Care Plan Patient has chronic kidney disease No Klaus Levi Patient has chronic kidney disease Care Plan Patient has chronic kidney disease No [employer] Weekly blood pressure task Care Plan Weekly blood pressure task No ChantalJoanne Weekly blood pressure task Care Plan Weekly blood pressure task No ChantalJoanne Patient has chronic kidney disease Care Plan [...] chronic kidney disease No Michaela Rollins RN documented as of this encounter Visit Diagnoses Not on filedocumented in this encounter Additional Health Concerns Active Problems Noted Date [...] 06/13/2025 Patient has chronic kidney disease 06/13/2025 Assessment Noted Time PHQ-9 Depression Total Score: 0 07/15/20 11:32 AM EST documented as of this encounter Care Teams Radiology Rn Relationship Specialty Start Date End Date Valeri Lerner DO [address] [place] [address] PCP - General Family Medicine 07/13/12 [employer] 12/08/23 documented as of this encounter
--- OUTSIDE RECORDS SUMMARY | 2025-06-13 19:54 | XMS_ITS | Encounter Summary ---
Author Organization [employer] Address [address] [facility] 7t [place] [address] Care Team Providers Care Booster Operator Name Role Phone Valeri Lerner DO Primary Care Provider + [phone] Reason for Visit * Reason Onset Date Comments INR tracking 06/06/2025 Encounter Details Date Type Department Care Team (Late st Contact Info) Description 06/06/[address] [facility] [address] [place], [place] [phone] Valeri Lerner DO [address] [place], [place] [phone] INR tracking Social History Tobacco Use Types Packs/Day Years [...] Telephone Encounter - Michaela Rollins RN - 06/12/2025 3:55 PM EST TC placed to [place] [phone] who reports the patients INR today was 1.9 and their plan at discharge for coumadin was 6mg daily. RN consulted with Dr. Lerner who reports the patients INR should be rechecked on 06/18/25 and patient should continue with the 6mg daily dose in the interim. RN called [facility] [phone] to inform of INR and POC. Willian verbalized understanding. RN will contact Willian on 06/18/25 to obtain INR. * Telephone Encounter - Michaela Rollins RN - 06/12/2025 11:58 AM EST TC placed to [place] [phone] who reports the patient is still currently at facility on unit 2. RN was transferred to RN on unit 2 who reports the patient will be discharged this afternoon.RN spoke to SHIRLEY Higuera who reports the patient arrived to their facility w/ na INR of 1.3 and required a bridge lovenox and coumadin. INR then returned at 3.1 and coumadin was held. INR 2 days agoreturned at 2.5 and patient was being given 6mg daily. Davida reports INR was rechecked today however they do not have the results as of yet. Davida reports results will be available today after 2pm and RN can return call to obtain results and dosing instructions in order to review with PCP. Sophia baird confirms the patient was re-referred back to [facility] for VNA services as well. RN called Willian A [phone] to confirm [facility] was informed of patients discharge and that she will be re-admitted to VNA services. Willian confirms they are aware and the plan is to re-admit the patient tomorrow. Willian informed RN will return call to him this PM with INR/coumadin plan. Willian verbalized understanding. RN will return call to [place] this PM. * Telephone Encounter - Michaela Rollins RN - 06/06/2025 3:12 PM EST Patient discharged from [facility] on 05/28/25 to [place]. TC placed to [place] [phone] to confirm patient is still at their facility and to inquire if pending discharge date. RN was informed the patient is still at their facility and does NOT have a pending discharge date. RN will postpone to 06/11/25 to call [place] to prevent patient from falling out of INR monitoring. documented in this encounter Plan of Treatment Upcoming Encounters Date Type Department Care Team (Late st Contact Info) Description 07/04/2025 1:00 PM EST Office Visit [facility] [address] [place] [address] Diana Eric MD [address] [place], [place] [phone] documented as of this encounter Goals Goal [...] documented as of this encounter Care Teams Booster Operator Relationship Specialty Start Date End Date Valeri Lerner DO [address] [place] [address] PCP - General Family Medicine 07/13/12 [employer] 12/08/23 documented as of this encounter
--- OUTSIDE RECORDS SUMMARY | 2025-06-13 19:54 | XMS_ITS | Encounter Summary ---
Author Organization [employer] Address [address] [facility] 7t [place] [address] Care Team Providers Care Chromium Plater Name Role Phone Valeri Lerner DO Primary Care Provider +1 [phone] Reason for Visit * Reason Onset Date Comments Hospital Follow-up 06/13/2025 Encounter Details Date Type Department Care Team (Late st Contact Info) Description 06/13/2025 Telephone [facility] [address] [place], [place] [phone] Valeri Lerner DO [address] [place], [place] [phone] Hospital Follow-up Social History Tobacco Use Types Packs/Day Years [...] encounter Miscellaneous Notes * Telephone Encounter - Klaus Levi - 06/13/2025 10:50 AM EST Tc from pt requesting a HDF appt. Hospital: [facility] Date of admission: apr on date Discharge date: 06/12/25 Diagnosed: leg swelling Please contact daughter at [phone]. documented in this encounter Plan of Treatment Upcoming Encounters Date Type Department Care Team (Late st Contact Info) Description 07/04/2025 1:00 PM EST Office Visit [facility] [address] [place] [address] Diana Eric MD [address] [place], [place] [phone] documented as of this encounter Goals Goal [...] documented as of this encounter Care Teams Chromium Plater Relationship Specialty Start Date End Date Valeri Lerner DO [address] [place] [address] PCP - General Family Medicine 07/13/12 [place] [facility] 12/08/23 documented as of this encounter
--- OUTSIDE RECORDS SUMMARY | 2025-06-13 19:54 | XMS_ITS | Encounter Summary ---
Author Organization [employer] Address [address] [facility] 7t [place] [address] Care Team Providers Care Manager Analysis Name Role Phone Valeri Lerner DO Primary Care Provider + [phone] Reason for Visit * Reason Onset Date Comments VNA services 06/13/2025 Encounter Details Date Type Department Care Team (Late st Contact Info) Description 06/13/[address] [facility] [address] [place], [place] [phone] Valeri Lerner DO [address] [place], [place] [phone] VNA services Social History Tobacco Use Types Packs/Day Years [...] Telephone Encounter - Michaela Rollins RN - 06/13/2025 12:47 PM EST [place] [facility] [place] ([facility]) did not submit a new referral for VNA services to [facility]. Stan reports a new referral is needed from PCP office in order to re-admit patient to services. RN has generated order and provided [facility] discharge and last OV note from [facility] with referral (we do not have [facility] discharge documents yet). Stan reports she will fax order to [facility] for patient to be seen today. documented in this encounter Plan of Treatment Upcoming Encounters Date Type Department Care Team (Late st Contact Info) Description 07/04/2025 1:00 PM EST Office [address] [facility] [address] [place] [address] Diana Eric MD [address] [place] [address] documented as of this encounter Goals Goal [...] 7.6( 5 1:53 PM EDT) No Batsheva Gomez PharmD [...] documented as of this encounter Care Teams Manager Analysis Relationship Specialty Start Date End Date Valeri Lerner DO [address] [place] [address] PCP - General Family Medicine 07/13/12 [employer] 12/08/23 documented as of this encounter
--- OUTSIDE RECORDS SUMMARY | 2025-06-13 19:55 | XMS_ITS | Encounter Summary ---
Author Organization [facility] Address [address] [place] [phone] Care Team Providers Care Splash Line Operator Name Role Phone Valeri Lerner DO Primary Care Provider +1- [phone] Encounter Details Date Type Department Care Team (Late st Contact Info) Description 06/04/2025 Lab Requisition [facility] - Main Lab [address] [facility] [place] [address] Macario Green MD [address] [place] [address] Paroxysmal atrial fibrillation (CMS/HCC V24, CMS/HCC V28) Social [...] Diagnosis Comments PROTHROMBIN TIME WITH INR Routine 06/04/2025 5:27 AM EST Paroxysmal atrial fibrillation (CMS/HCC V24, CMS/HCC V28) documented in this encounter Results * (ABNORMAL) Prothrombin time with INR (06/04/2025 5:27 AM EST) Protime 18.1(H) 10.6 - 13.9 sec LAB COAGULATION METHOD 06/04/2025 10:08 AM [facility] INR 1.5 LAB COAGULATION METHOD 06/04/2025 10:08 AM [facility] Blood Venous blood specimen / Unknown Venipuncture / Unknown 06/04/2025 5:27 AM EST 06/04/2025 8:54 AM EST us Macario Green MD LAB BLOOD ORDERABLES Final R esult [facility] ([facility] [address] [place] [address], documented in this encounter Visit Diagnoses Diagnosis Paroxysmal atrial fibrillation (CMS/HCC V24, CMS/HCC V28) Atrial fibrillation documented in this encounter Care Teams Splash Line Operator Relationship Specialty Start Date End Date Valeri Lerner DO [address] [place] [address] PCP - General 11/15/14 documented as of this encounter
--- OUTSIDE RECORDS SUMMARY | 2025-06-13 19:55 | XMS_ITS | Encounter Summary ---
Author Organization [employer] Address [address] [facility] 7t [place] [address] Care Team Providers Care Drivers License Examiner Name Role Phone Valeri Lerner DO Primary Care Provider + [phone] Reason for Visit * Reason Comments Pre-visit Planning HDF scheduled Encounter Details Date Type Department Care Team (Late st Contact Info) Description 06/09/2025 Patient Outreach [facility] [address] [place] [address] Valeri Lerner DO [address] [place] [address] Pre-visit Planning (HDF scheduled ) Social History Tobacco Use Types Packs/Day Years [...] encounter Miscellaneous Notes * Significant Event - Tabitha Apodaca - 06/09/2025 1:29 PM EST 06/09/25 1328 Hospital Discharges and Admission for [facility] Type of Visit Hospital Admission Date of Admission/Visit 06/28/25 Date of Discharge 06/12/25 Facility [facility] Diagnosis Weakness , CHF Disposition Discharged Home Follow-Up Actions Follow-Up Needed Provider appointment Follow-Up Outcome Spoke to Caregiver;Booked Appointment Initial Contact Date 06/09/25 Received incoming call from the [facility]. CM Spoke with Alyssa from [facility]. Patient was admitted to this facility on 06/28/2025 for diagnosis of Weakness and CHF. Patient will be discharged from the facility on 06/12/2025. Patient has been scheduled for an HDF appointment on 06/20/2025 at 9:30AM with Dr. Lerner. DAVID requested discharge summaries to be faxed to the Care Management Department at [phone]. CC will follow up on discharge summary following patient's discharge.Insurance verified prior to scheduling. documented in this encounter Plan of Treatment Upcoming Encounters Date Type Department Care Team (Late st Contact Info) Description 07/04/2025 1:00 PM EST Office Visit [facility] [address] [place] [address] Diana Eric MD [address] [place] [address] documented as of this encounter Goals Goal [...] documented as of this encounter Care Teams Drivers License Examiner Relationship Specialty Start Date End Date Valeri Lerner DO [address] [place] [address] PCP - General Family Medicine 07/13/12 [employer] 12/08/23 documented as of this encounter
--- OUTSIDE RECORDS SUMMARY | 2025-06-13 19:55 | XMS_ITS | Encounter Summary ---
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 Social History Tobacco Use Types Packs/Day Years [...] Diagnosis Comments PROTHROMBIN TIME WITH INR Routine 06/02/2025 6:24 AM EST group home (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 documented in this encounter Results * (ABNORMAL) Prothrombin time with INR (06/02/2025 6:24 AM EST) Protime 15.9(H) 10.6 - 13.9 sec LAB COAGULATION METHOD 06/02/2025 10:54 AM EST [facility] INR 1.3 LAB COAGULATION METHOD 06/02/2025 10:54 AM EST [facility] Blood Venous blood specimen / Unknown Venipuncture / Unknown 06/02/2025 6:24 AM EST 06/02/2025 9:50 AM EST us Macario Green MD LAB BLOOD ORDERABLES Final R esult [facility] [address] [place] [address], documented in this encounter Visit Diagnoses Diagnosis group home (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 Long-term (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 documented in this encounter Care Teams Drawing Press Operator Relationship Specialty Start Date End Date Valeri Lerner DO [address] [place] [address] PCP - General 11/15/14 documented as of this encounter
--- OUTSIDE RECORDS SUMMARY | 2025-06-13 19:55 | XMS_ITS | Encounter Summary ---
Author Organization [facility] Address [address] [place] [address] Care Team Providers Care Salesperson Handbags Name Role Phone Valeri Lerner DO Primary Care Provider +1- [phone] Encounter Details Date Type Department Care Team (Latest Contact Info) Description 05/30/2025 Lab Requisition [facility] - Main Lab 299 [facility] [place] [address] Macario Green MD [address] [place] [address] 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, CMS/HCC V28); Hyperlipidemia, unspecified; Chronic atrial fibrillation, unspecified (CMS/HCC V24, CMS/HCC V28); Essential (primary) hypertension; 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 Social History Tobacco [...] Diagnosis Comments PROTHROMBIN TIME WITH INR Routine 05/30/2025 6:09 AM EDT 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, CMS/HCC V28) Hyperlipidemia, unspecified Chronic atrial fibrillation, unspecified (CMS/HCC V24, CMS/HCC V28) Essential (primary) hypertension 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 COMPLETE BLOOD COUNT Routine 05/30/2025 6:09 AM EDT 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, CMS/HCC V28) Hyperlipidemia, unspecified Chronic atrial fibrillation, unspecified ([facility] V24, [facility] V28) Essential (primary) hypertension half-way (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 BASIC METABOLIC PANEL Routine 05/30/2025 6:09 AM EDT Type 2 diabetes mellitus with diabetic polyneuropathy ([facility] V24, [facility] V28) Hyperlipidemia, unspecified Chronic atrial fibrillation, unspecified ([facility] V24, [facility] V28) Essential (primary) hypertension half-way (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 documented in this encounter Results * (ABNORMAL) Prothrombin time with INR (05/30/2025 6:09 AM EDT) Protime 15.7(H) 10.6 - 13.9 sec LAB COAGULATION METHOD 05/30/2025 11:16 AM EDT [facility] INR 1.3 LAB COAGULATION METHOD 05/30/2025 11:16 AM EDT [facility] Blood Venous blood specimen / Unknown Venipuncture / Unknown 05/30/2025 6:09 AM EDT 05/30/2025 9:50 AM EDT Macario Green MD LAB BLOOD ORDERABLES Final R esult [facility] [address] [place] [address], * (ABNORMAL) Basic metabolic panel (05/30/2025 6:09 AM EDT) Pathologist [facility] Sodium 140 133 - 145 mmol/L LAB CHEMISTRY METHOD 05/30/2025 11:24 AM EDT [facility] Potassium 4.1 3.5 - 5.5 mmol/L LAB CHEMISTRY METHOD 05/30/2025 11:24 AM EDT [facility] Chloride 102 96 - 110 mmol/L LAB CHEMISTRY METHOD 05/30/2025 11:24 AM EDT [facility] CO2 35(H) 21 - 32 mmol/L LAB CHEMISTRY METHOD 05/30/2025 11:24 AM [facility] Anion Gap 3 3 - 11 LAB CHEMISTRY METHOD 05/30/2025 11:24 AM [facility] Glucose 119(H) 70 - 100 mg/dL LAB CHEMISTRY METHOD 05/30/2025 11:24 AM [facility] BUN 26(H) 5 - 25 mg/dL LAB CHEMISTRY METHOD 05/30/2025 11:24 AM [facility] Creatinine 1.13(H) 0.50 - 1.10 mg/dL LAB CHEMISTRY METHOD 05/30/2025 11:24 AM [facility] eGFR 47(L) >=60 mL/min/1. 73m2 LAB CHEMISTRY METHOD 05/30/2025 11:24 AM [facility] Comment:Calculation based on the Chronic Kidney Disease Epidemiology Collaboration (CKD-EPI) equation refit without adjustment for race. BUN/Creatinine Ratio 23.0 LAB CHEMISTRY METHOD 05/30/2025 11:24 AM [facility] Calcium 9.5 8.5 - 10.5 mg/dL LAB CHEMISTRY METHOD 05/30/2025 11:24 AM [facility] Blood Venous blood specimen / Unknown Venipuncture / Unknown 05/30/2025 6:09 AM EDT 05/30/2025 9:50 AM EDT us Macario Green MD LAB BLOOD ORDERABLES Final R esult [facility] [address] [place] [address], * (ABNORMAL) Complete blood count (05/30/2025 6:09 AM EDT) WBC 7.2 4.8 - 10.8 K/mcL LAB HEMETOLOGY METHOD 05/30/2025 11:09 AM [facility] RBC 3.80 3.80 - 4.80 M/mcL LAB HEMETOLOGY METHOD 05/30/2025 11:09 AM [facility] Hemoglobin 11.7 11.5 - 16.0 g/dL LAB HEMETOLOGY METHOD 05/30/2025 11:09 AM [facility] Hematocrit 37.9 35.0 - 47.0 % LAB HEMETOLOGY METHOD 05/30/2025 11:09 AM [facility] MCV 99.5(H) 79.0 - 98.0 FL LAB HEMETOLOGY METHOD 05/30/2025 11:09 AM [facility] MCH 30.7 27.0 - 32.0 pcg LAB HEMETOLOGY METHOD 05/30/2025 11:09 AM [facility] MCHC 30.9(L) 32.0 - 37.0 g/dL LAB HEMETOLOGY METHOD 05/30/2025 11:09 AM [facility] RDW 14.6 11.0 - 15.0 % LAB HEMETOLOGY METHOD 05/30/2025 11:09 AM [facility] Platelets 166 130 - 400 K/mcL LAB HEMETOLOGY METHOD 05/30/2025 11:09 AM [facility] MPV 11.8(H) 7.0 - 11.0 FL LAB HEMETOLOGY METHOD 05/30/2025 11:09 AM [facility] NRBC 0.0 <1.0 % LAB HEMETOLOGY METHOD 05/30/2025 11:09 AM [facility] NRBC Absolute 0.00 <0.10 K/mcL LAB HEMETOLOGY METHOD 05/30/2025 11:09 AM [facility] Blood Venous blood specimen / Unknown Venipuncture / Unknown 05/30/2025 6:09 AM EDT 05/30/2025 9:50 AM EDT us Macario Green MD LAB BLOOD ORDERABLES Final R esult [facility] [address] [place] [address], documented in this encounter Visit Diagnoses Diagnosis Type 2 diabetes mellitus with diabetic polyneuropathy (CMS/[facility] V24, [facility] V28) Hyperlipidemia, unspecified Chronic atrial fibrillation, unspecified (CMS/[facility] V24, [facility] V28) Essential (primary) hypertension Unspecified essential hypertension half-way (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 Long-term (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 documented in this encounter Care Teams Salesperson Handbags Relationship Specialty Start Date End Date Valeri Lerner DO [address] [place] [address] PCP - General 11/15/14 documented as of this encounter
--- OUTSIDE RECORDS SUMMARY | 2025-06-13 19:55 | XMS_ITS | Encounter Summary ---
Author Organization [facility] Address [address] [place] [address] Care Team Providers Care Test Engineer Name Role Phone Valeri Lerner DO Primary Care Provider +1- [phone] Encounter Details Date Type Department Care Team (Latest Contact Info) Description 06/03/2025 Lab Requisition [facility] - Main Lab [address] [facility] [place] [address] Macario Green MD [address] [place] [address] Heart failure, unspecified (CMS/HCC V24, CMS/HCC V28); Essential (primary) hypertension; Paroxysmal atrial fibrillation (CMS/HCC V24, CMS/HCC V28); 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 Social History Tobacco [...] Diagnosis Comments PROTHROMBIN TIME WITH INR Routine 06/03/2025 6:05 AM EST Heart failure, unspecified (CMS/HCC V24, CMS/HCC V28) Essential (primary) hypertension Paroxysmal atrial fibrillation (CMS/HCC V24, CMS/HCC V28) USP (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 documented in this encounter Results * (ABNORMAL) Prothrombin time with INR (06/03/2025 6:05 AM EST) Protime 17.0(H) 10.6 - 13.9 sec LAB COAGULATION METHOD 06/03/2025 10:[address] [facility] INR 1.4 LAB COAGULATION METHOD 06/03/2025 10:[address] [facility] Blood Venous blood specimen / Unknown Venipuncture / Unknown 06/03/2025 6:05 AM EST 06/03/2025 9:13 AM EST us Macario Green MD LAB BLOOD ORDERABLES Final R esult [facility] [address] [place] [address], documented in this encounter Visit Diagnoses Diagnosis Heart failure, unspecified (CMS/[facility] V24, [facility] V28) Heart failure, unspecified Essential (primary) hypertension Unspecified essential hypertension Paroxysmal atrial fibrillation ([facility] V24, [facility] V28) Atrial fibrillation USP (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 Long-term (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 documented in this encounter Care Teams Test Engineer Relationship Specialty Start Date End Date Valeri Lerner DO [address] [place] [address] PCP - General 11/15/14 documented as of this encounter
--- OUTSIDE RECORDS SUMMARY | 2025-06-13 19:55 | XMS_ITS | Encounter Summary ---
Author Organization [employer] Address [address] [place] [address] 7[address] [place] [address] Care Team Providers Care Profile Saw Setup Operator Name Role Phone Tia Lernerfer Primary Care Provider [phone] PuBatsheva landrum PharmD Unavailable Encounter Details Date Type Department Care Team (Late st Contact Info) Description 08/03/2022 Orders Only [facility] MED & PEDS [address] [place], [place] [phone] Valeri Renner LPN Social History Tobacco Use [...] Description 07/04/2025 1:00 PM EST Office Visit [facility] MEDICINE [address] [place], [place] [phone] Diana Eric MD [address] [place], [place] [phone] documented as of this encounter Procedures Procedure [...] EST) Protime 26.1(H) 11.1 - 13.5 sec [facility] 07/14/2023 11:0 7 AM EST 07/14/2023 11:08 AM EST us Generic External Data Provider LAB BLOOD ORDERAB LES Final Result Performing Organization Address City/State/[facility] Co de Phone Number [facility] [address] [place] [address] [phone] * (ABNORMAL) ~PT, ~INR - [facility]TI [facility]AG [facility]IN[facility] (07/14/2023 11:07 AM EST) Prothrombin Time INR 2.2(H) 0.9 - 1.1 [facility] Comment:METER #: [id number] TERNATIONAL NORMALIZED RATIO (INR) REFERENCE RANGES Reference [...] ORDERAB LES Final Result Performing Organization Address [facility] Co de Phone Number [facility] [address] [place] [address] [phone] * (ABNORMAL) PROTHROMBIN TIME WHOLE BLD POC (06/09/2023 11:34 AM EST) Protime 23.9(H) 11.1 - 13.5 sec [facility] 06/09/2023 11:3 4 AM EST 06/09/2023 11:36 AM EST Generic External Data Provider LAB BLOOD ORDERAB LES Final Result Performing Organization Address [facility] de Phone Number [facility] [address] [place] [address] [phone] * (ABNORMAL) ~PT, ~INR - ANTI COAG CLINIC (06/09/2023 11:34 AM EST) Prothrombin Time INR 2.0(H) 0.9 - 1.1 [facility] Comment:METER #: [id number] TERNATIONAL NORMALIZED RATIO (INR) REFERENCE RANGES Reference [...] ORDERAB LES Final Result Performing Organization Address [facility] Co de Phone Number [facility] [address] [place] [address] [phone] * (ABNORMAL) PROTHROMBIN TIME WHOLE BLD POC (03/22/2023 11:23 AM EDT) Protime 38.5(H) 11.1 - 13.5 sec [facility] 03/22/2023 11:2 3 AM EDT 03/22/2023 11:25 AM EDT Generic External Data Provider LAB BLOOD ORDERAB LES Final Result Performing Organization Address [facility] Phone Number [facility] [address] [place] [address] [phone] * (ABNORMAL) ~PT, ~INR - ANTI COAG CLINIC (03/22/2023 11:23 AM EDT) Prothrombin Time INR 3.2(H) 0.9 - 1.1 [facility] Comment:METER #: [id number] TERNATIONAL NORMALIZED RATIO (INR) REFERENCE RANGES Reference [...] 3 AM EDT 03/22/2023 11:25 AM EDT [facility] External Provider LAB BLO OD ORDERABLES Final Result Performing Organization Address [facility] Co de Phone Number [facility] [address] [place] [address] [phone] * (ABNORMAL) PROTHROMBIN TIME WHOLE BLD POC (03/01/2023 11:31 AM EDT) Protime 26.8(H) 11.1 - 13.5 sec [facility] 03/01/2023 11:3 1 AM EDT 03/01/2023 11:33 AM EDT Generic External Data Provider LAB BLOOD ORDERAB LES Final Result Performing Organization Address City/[facility]/ZIP Co de Phone Number [facility] [address] [place] [phone] * (ABNORMAL) ~PT, ~INR - ANTI COAG CLINIC (03/01/2023 11:31 AM EDT) Prothrombin Time INR 2.2(H) 0.9 - 1.1 [facility] Comment:METER #: [id number] TERNATIONAL NORMALIZED RATIO (INR) REFERENCE RANGES Reference [...] 1 AM EDT 03/01/2023 11:33 AM EDT [facility] External Provider LAB BLO OD ORDERABLES Final Result Performing Organization Address City/[facility]/ZIP Co de Phone Number [facility] [address] [place] [phone] * (ABNORMAL) PROTHROMBIN TIME WHOLE BLD POC (02/08/2023 11:20 AM EDT) Protime 26.7(H) 11.1 - 13.5 sec [facility] 02/08/2023 11:2 0 AM EDT 02/08/2023 11:22 AM EDT [facility] External Provider LAB BLO OD ORDERABLES Final Result Performing Organization Address [facility] Co de Phone Number [facility] [address] [place] [address] [phone] * (ABNORMAL) ~PT, ~INR - ANTI COAG CLINIC (02/08/2023 11:20 AM EDT) Prothrombin Time INR 2.2(H) 0.9 - 1.1 [facility] Comment:METER #: [id number] TERNATIONAL NORMALIZED RATIO (INR) REFERENCE RANGES Reference [...] 0 AM EDT 02/08/2023 11:22 AM EDT [facility] External Provider LAB BLO OD ORDERABLES Final Result Performing Organization Address [facility] de Phone Number [facility] [address] [place] [address] [phone] * (ABNORMAL) PROTHROMBIN TIME WHOLE BLD POC (01/18/2023 2:41 PM EDT) Protime 25.7(H) 11.1 - 13.5 sec [facility] 01/18/2023 2:41 PM EDT 01/18/2023 2:43 PM EDT [facility] External Provider LAB BLO OD ORDERABLES Final Result Performing Organization Address City/[facility] Co de Phone Number [facility] [address] [place] [address] [phone] * (ABNORMAL) ~PT, ~INR - ANTI [facility]AG CLINIC (01/18/2023 2:41 PM EDT) Prothrombin Time INR 2.1(H) 0.9 - 1.1 [facility] Comment:METER #: [id number] TERNATIONAL NORMALIZED RATIO (INR) REFERENCE RANGES Reference [...] 2:41 PM EDT 01/18/2023 2:43 PM EDT [facility] External Provider LAB BLO OD ORDERABLES Final Result [facility] [address] [place] [address] [phone] * (ABNORMAL) PROTHROMBIN TIME WHOLE BLD POC (12/30/2022 11:46 AM EDT) Protime 20.5(H) 11.1 - 13.5 sec [facility] 12/30/2022 11:4 6 AM EDT 12/30/2022 11:48 AM EDT [facility] External Provider LAB BLO OD ORDERABLES Final Result [facility] [address] [place] [address] [phone] * (ABNORMAL) ~PT, ~INR - ANTI COAG CLINIC (12/30/2022 11:46 AM EDT) Prothrombin Time INR 1.7(H) 0.9 - 1.1 [facility] Comment:METER #: [id number] TERNATIONAL NORMALIZED RATIO (INR) REFERENCE RANGES Reference [...] 6 AM EDT 12/30/2022 11:48 AM EDT [facility] External Provider LAB BLO OD ORDERABLES Final Result Performing Organization Address [facility] de Phone Number [facility] [address] [place] [address] [phone] * (ABNORMAL) PROTHROMBIN TIME WHOLE BLD POC (12/15/2022 10:26 AM EDT) Protime 23.7(H) 11.1 - 13.5 sec [facility] 12/15/2022 10:2 6 AM EDT 12/15/2022 10:28 AM EDT [facility] External Provider LAB BLO OD ORDERABLES Final Result Performing Organization Address [facility] de Phone Number [facility] [address] [place] [address] [phone] * (ABNORMAL) ~PT, ~INR - ANTI COAG CLINIC (12/15/2022 10:26 AM EDT) Prothrombin Time INR 2.0(H) 0.9 - 1.1 [facility] Comment:METER #: [id number] TERNATIONAL NORMALIZED RATIO (INR) REFERENCE RANGES Reference [...] 6 AM EDT 12/15/2022 10:28 AM EDT [facility] External Provider LAB BLO OD ORDERABLES Final Result Performing Organization Address City/[facility] Co de Phone Number [facility] [address] [place] [address] [phone] * (ABNORMAL) PROTHROMBIN TIME WHOLE BLD POC (11/30/2022 11:01 AM EDT) Protime 21.3(H) 11.1 - 13.5 sec [facility] 11/30/2022 11:0 1 AM EDT 11/30/2022 11:04 AM EDT [facility] External Provider LAB BLO OD ORDERABLES Final Result Performing Organization Address [facility] de Phone Number [facility] [address] [place] [address] [phone] * (ABNORMAL) ~PT, ~INR - ANTI COAG CLINIC (11/30/2022 11:01 AM EDT) Prothrombin Time INR 1.8(H) 0.9 - 1.1 [facility] Comment:METER #: [id number] TERNATIONAL NORMALIZED RATIO (INR) REFERENCE RANGES Reference [...] 1 AM EDT 11/30/2022 11:04 AM EDT Result [facility] External Provider LAB BLO OD ORDERABLES Final Result Performing Organization Address [facility] de Phone Number [facility] [address] [place] [address] [phone] * (ABNORMAL) PROTHROMBIN TIME WHOLE BLD POC (11/09/2022 10:29 AM EDT) Protime 28.8(H) 11.1 - 13.5 sec [facility] 11/09/2022 10:2 9 AM EDT 11/09/2022 10:30 AM EDT Result [facility] External Provider LAB BLO OD ORDERABLES Final Result Performing Organization Address [facility] Phone Number [facility] [address] [place] [address] [phone] * (ABNORMAL) ~PT, ~INR - ANTI COAG CLINIC (11/09/2022 10:29 AM EDT) Prothrombin Time INR 2.4(H) 0.9 - 1.1 [facility] Comment:METER #: [id number] TERNATIONAL NORMALIZED RATIO (INR) REFERENCE RANGES Reference [...] AM EDT 11/09/2022 10:30 AM EDT Result [facility] External Provider LAB BLO OD ORDERABLES Final Result [facility] [address] [place] [phone] * (ABNORMAL) Basic Metabolic Panel (10/05/2022 10:02 AM EST) Sodium 146(H) 135 - 145 mmol/L [facility] Potassium 3.4 3.3 - 5.1 mmol/L [facility] Chloride 105 96 - 108 mmol/L [facility] Carbon Dioxide 29 22 - 29 mmol/L [facility] Anion Gap 15 12 - 20 [facility] Urea Nitrogen (BUN) 20(H) 9 - 16 mg/dL [facility] Creatinine, Serum 0.96 0.5 - 1.4 mg/dL [facility] Estimated Glomerular Filt Rate 55 [facility] Comment:NOTE: For -Am erican individuals, multiply the result by 1.210.Chronic Kidney Disease: Estimated GFR < 60 mL/min/1.48s9Tyomei Kidney Disease: Estimated GFR < 15 mL/min/1.73m2 Glucose 28(LL) 60 - 115 mg/dL [facility] Comment:Critical value for t est(GLUR): Results called to and readback by: TONI Guerra LPN Person calling: PATRICIA Date:10/05/22 Time: 1112 Calcium 9.3 8.4 - 10.2 mg/dL [facility] 10/05/2022 10:0 2 AM EST 10/05/2022 10:31 AM EST [facility] External Provider LAB BLO OD ORDERABLES Final Result [facility] [address] [place] [phone] * (ABNORMAL) Prothrombin Time-INR (10/05/2022 10:02 AM EST) Prothrombin Time 72.7(H) 10.0 - 13.1 SEC [facility] INTERNATIONAL NORM RATIO 5.9(HH) 0.9 - 1.1 [facility] Comment:RESULTS OF INR VO D [...] 2 AM EST 10/05/2022 10:31 AM EST [facility] External Provider LAB BLO OD ORDERABLES Final Result [facility] [address] [place] [address] [phone] * (ABNORMAL) CBC auto differential (10/05/2022 10:02 AM EST) White Blood Count 10.8 4.8 - 10.8 X10*3/uL [facility] Red Blood Count 4.02(L) 4.20 - 5.50 X10*6/uL [facility] Hemoglobin 12.3 12.0 - 16.0 g/dl [facility] Hematocrit 39.4 37.0 - 47.0 % [facility] Mean Corpuscular Volume 98.0 80.0 - 98.0 fL [facility] Mean Corpuscular Hemoglobin 30.6 27.0 - 33.0 pg [facility] Mean Corpuscular HGB Conc 31.2 31.0 - 35.0 g/dl [facility] Red Cell Distribution Width 13.4 11.0 - 16.0 % [facility] Platelet Count 217 160 - 400 X10*3/uL [facility] Mean Platelet Volume 10.9 9.4 - 12.3 fL [facility] Neutrophils Percent Auto 58.6 45 - 73 % [facility] Imm Gran Pct Auto 0.4 0.0 - 0.4 % [facility] Lymphocytes Percent Auto 31.5 20 - 40 % [facility] Monocytes Percent Auto 5.8 2 - 11 % [facility] Eosinophils Percent Auto 3.1 0 - 4 % [facility] Basophils Percent Auto 0.6 0 - 2 % [facility] NRBC Pct Auto 0.0 0.0 - 0.2 /100WBC [facility] Neutrophils Absolute Auto 6.3 2.0 - 8.3 x10*3/uL [facility] Imm Gran Abs Auto 0.04(H) 0.00 - 0.03 X10*3/uL [facility] Lymphocytes Absolute Auto 3.4 1.2 - 4.9 X10*3/uL [facility] Monocytes Absolute Auto 0.6 0.1 - 1.2 X10*3/uL [facility] Eosinophils Absolute Auto 0.3 0.0 - 0.4 X10*3/uL [facility] Basophils Absolute Auto 0.1 0.0 - 0.2 X10*3/uL [facility] NRBC Abs Auto 0.000 0.0 - 0.012 X10*3/uL [facility] 10/05/2022 10:0 2 AM EST 10/05/2022 10:31 AM EST us [facility] External Provider LAB BLO OD ORDERABLES Final Result Performing Organization Address City/State/[facility] Co de Phone Number [facility] [address] [place] [phone] * (ABNORMAL) Prothrombin Time-INR (10/03/2022 2:57 PM EST) Prothrombin Time 92.9(H) 10.0 - 13.1 SEC [facility] INTERNATIONAL NORM RATIO 7.4(HH) 0.9 - 1.1 [facility] Comment:RESULTS OF INR VO D [...] PM EST 10/03/2022 3:20 PM EST us [facility] External Provider LAB BLO OD ORDERABLES Final Result Performing Organization Address City/State/[facility] Co de Phone Number [facility] [address] [place] [address] [phone] * (ABNORMAL) CBC auto differential (09/20/2022 11:35 AM EST) White Blood Count 9.1 4.8 - 10.8 X10*3/uL [facility] Red Blood Count 4.06(L) 4.20 - 5.50 X10*6/uL [facility] Hemoglobin 12.6 12.0 - 16.0 g/dl [facility] Hematocrit 39.2 37.0 - 47.0 % [facility] Mean Corpuscular Volume 96.6 80.0 - 98.0 fL [facility] Mean Corpuscular Hemoglobin 31.0 27.0 - 33.0 pg [facility] Mean Corpuscular HGB Conc 32.1 31.0 - 35.0 g/dl [facility] Red Cell Distribution Width 13.7 11.0 - 16.0 % [facility] Platelet Count 127(L) 160 - 400 X10*3/uL [facility] Mean Platelet Volume 11.2 9.4 - 12.3 fL [facility] Neutrophils Percent Auto 85.6(H) 45 - 73 % [facility] Imm Gran Pct Auto 0.2 0.0 - 0.4 % [facility] Lymphocytes Percent Auto 9.6(L) 20 - 40 % [facility] Monocytes Percent Auto 4.4 2 - 11 % [facility] Eosinophils Percent Auto 0.0 0 - 4 % [facility] Basophils Percent Auto 0.2 0 - 2 % [facility] NRBC Pct Auto 0.0 0.0 - 0.2 /100WBC [facility] Neutrophils Absolute Auto 7.7 2.0 - 8.3 x10*3/uL [facility] Imm Gran Abs Auto 0.02 0.00 - 0.03 X10*3/uL [facility] Lymphocytes Absolute Auto 0.9(L) 1.2 - 4.9 X10*3/uL [facility] Monocytes Absolute Auto 0.4 0.1 - 1.2 X10*3/uL [facility] Eosinophils Absolute Auto 0.0 0.0 - 0.4 X10*3/uL [facility] Basophils Absolute Auto 0.0 0.0 - 0.2 X10*3/uL [facility] NRBC Abs Auto 0.000 0.0 - 0.012 X10*3/uL [facility] 09/20/2022 11:3 5 AM EST 09/20/2022 11:39 AM EST [facility] External Provider LAB BLO OD ORDERABLES Final Result [facility] [address] [place] [address] [phone] * SARS-CoV-2 RNA, Influenza A/B, and RSV RNA, Ql NAAT (09/20/2022 11:34 AM EST) Influenza A PCR NEGATIVE Negative [facility] Influenza B PCR NEGATIVE Negative [facility] Resp Syncy Virus RNA Qual PCR NEGATIVE Negative [facility] SARS COV2 PCR NEGATIVE Negative [facility] SARS/Flu/RSV Note See Note [facility] Comment:All test results mus [...] use by authorized laboratories.Testing performed on the [employer] GeneXpert utilizingreal-time RT-PCR.All SARS CoV2 and positive influenza A/B results arereported to [facility]. 09/20/2022 11:3 4 AM EST 09/20/2022 11:51 AM EST [facility] Exter nal Provider LAB MICROBIOLOGY - GENERAL ORDERABLES Final Result Performing Organization Address [facility]/ZIP Co de Phone Number [facility] [address] [place] [address] [phone] * TSH W/Reflex to FT4 (09/20/2022 11:34 AM EST) TSH reflex Free T4 0.75 0.32 - 4.0 uIU/mL [facility] 09/20/2022 11:3 4 AM EST 09/20/2022 11:39 AM EST [facility] External Provider LAB BLO OD ORDERABLES Final Result Performing Organization Address City/[facility] Co de Phone Number [facility] [address] [place] [address] [phone] * (ABNORMAL) B Type Natriuretic Peptide (BNP) (09/20/2022 11:34 AM EST) B Type Natriuretic Peptide 421(H) <100 pg/mL [facility] Comment:For those patients w ho are being treated with Natrecor(nesiritide, recombinant BNP), BNP testing should beperformed at least two hours post treatment in order toensure that only endogenous levels of BNP are detected. 09/20/2022 11:3 4 AM EST 09/20/2022 11:39 AM EST [facility] External Provider LAB BLO OD ORDERABLES Final Result Performing Organization Address [facility] de Phone Number [facility] [address] [place] [address] [phone] * Lipase (09/20/2022 11:34 AM EST) Lipase 55 8 - 78 U/L [facility] 09/20/2022 11:3 4 AM EST 09/20/2022 11:39 AM EST [facility] External Provider LAB BLO OD ORDERABLES Final Result Performing Organization Address [facility] Phone Number [facility] [address] [place] [address] [phone] * Magnesium (09/20/2022 11:34 AM EST) Magnesium 1.6 1.6 - 2.6 mg/dL [facility] 09/20/2022 11:3 4 AM EST 09/20/2022 11:39 AM EST [facility] External Provider LAB BLO OD ORDERABLES Final Result Performing Organization Address [facility] de Phone Number [facility] [address] [place] [address] [phone] * (ABNORMAL) Comprehensive Metabolic Panel (09/20/2022 11:34 AM EST) Sodium 137 135 - 145 mmol/L [facility] Potassium 3.8 3.3 - 5.1 mmol/L [facility] Chloride 99 96 - 108 mmol/L [facility] Carbon Dioxide 30(H) 22 - 29 mmol/L [facility] Anion Gap 12 12 - 20 [facility] Urea Nitrogen (BUN) 22(H) 9 - 16 mg/dL [facility] Creatinine, Serum 1.08 0.5 - 1.4 mg/dL [facility] Creatinine Clr Calc Pharmacy 40.4 [facility] Comment:Provided height and weight: 157.48 cm,99.4 kg.eGFR (calculated from the MDRD study equation) and eCrCl(calculated from the Cockcroft-Gault equation) are based ondifferent parameters and may not yield comparable results.If eCrCl result is absurd, please check patient'sheight/weight. Estimated Glomerular Filt Rate 48 [facility] Comment:NOTE: For -Am erican individuals, multiply the result by 1.210.Chronic Kidney Disease: Estimated GFR < 60 mL/min/1.87m7Ejxhxx Kidney Disease: Estimated GFR < 15 mL/min/1.73m2 Glucose 253(H) 60 - 115 mg/dL [facility] Calcium 9.1 8.4 - 10.2 mg/dL [facility] Bilirubin, Total 0.8 0.0 - 1.0 mg/dL [facility] Aspartate Amino Transferase 24 5 - 31 U/L [facility] Alanine Aminotransferase 21 0 - 31 U/L [facility] Total Protein 7.1 6.5 - 8.0 g/dL [facility] Albumin Level 3.7 3.5 - 5.0 g/dL [facility] Alkaline Phosphatase 105 39 - 117 U/L [facility] 09/20/2022 11:3 4 AM EST 09/20/2022 11:39 AM EST [facility] External Provider LAB BLO OD ORDERABLES Final Result [facility] [address] [place], [place] [phone] Lactic Acid (09/20/2022 11:34 AM EST) Lactic Acid 1.1 0.5 - 2.0 mmol/L [facility] 09/20/2022 11:3 4 AM EST 09/20/2022 11:39 AM EST [facility] External Provider LAB BLO OD ORDERABLES Final Result Performing Organization Address [facility] Co de Phone Number [facility] [address] [place] [address] [phone] * (ABNORMAL) Prothrombin Time-INR (09/20/2022 11:34 AM EST) Prothrombin Time 18.3(H) 10.0 - 13.1 SEC [facility] INTERNATIONAL NORM RATIO 1.6(H) 0.9 - 1.1 [facility] Comment:INTERNATIONAL NORMAL IZED RATIO (INR) [...] 4 AM EST 09/20/2022 11:39 AM EST [facility] External Provider LAB BLO OD ORDERABLES Final Result Performing Organization Address [facility] de Phone Number [facility] [address] [place] [address] [phone] * (ABNORMAL) PROTHROMBIN TIME WHOLE BLD POC (09/12/2022 10:21 AM EST) Protime 24.5(H) 11.1 - 13.5 sec [facility] 09/12/2022 10:2 1 AM EST 09/12/2022 10:22 AM EST [facility] External Provider LAB BLO OD ORDERABLES Final Result Performing Organization Address City/[facility] Co de Phone Number [facility] [address] [place] [phone] * (ABNORMAL) ~PT, ~INR - ANTI [facility] (09/12/2022 10:21 AM EST) Prothrombin Time INR 2.0(H) 0.9 - 1.1 [facility] Comment:METER #: [id number] TERNATIONAL NORMALIZED RATIO (INR) REFERENCE RANGES Reference [...] 1 AM EST 09/12/2022 10:22 AM EST [facility] External Provider LAB BLO OD ORDERABLES Final Result Performing Organization Address [facility]/ZIP Co de Phone Number [facility] [address] [place] [phone] * (ABNORMAL) PROTHROMBIN TIME WHOLE BLD POC (08/29/2022 10:11 AM EST) Protime 20.9(H) 11.1 - 13.5 sec [facility] 08/29/2022 10:1 1 AM EST 08/29/2022 10:15 AM EST [facility] External Provider LAB BLO OD ORDERABLES Final Result [facility] [address] [place] [phone] * (ABNORMAL) ~PT, ~INR - ANTI COAG CLINIC (08/29/2022 10:11 AM EST) Prothrombin Time INR 1.7(H) 0.9 - 1.1 [facility] Comment:METER #: [id number] TERNATIONAL NORMALIZED RATIO (INR) REFERENCE RANGES Reference [...] 1 AM EST 08/29/2022 10:15 AM EST [facility] External Provider LAB BLO OD ORDERABLES Final Result Performing Organization Address City/[facility] Co de Phone Number [facility] [address] [place] [phone] * (ABNORMAL) PROTHROMBIN TIME WHOLE BLD POC (08/18/2022 1:12 PM EST) Protime 22.1(H) 11.1 - 13.5 sec [facility] 08/18/2022 1:12 PM EST 08/18/2022 1:14 PM EST [facility] External Provider LAB BLO OD ORDERABLES Final Result Performing Organization Address City/[facility]/ZIP Co de Phone Number [facility] [address] [place] [address] [phone] * (ABNORMAL) ~PT, ~INR - ANTI COAG CLINIC (08/18/2022 1:12 PM EST) Prothrombin Time INR 1.8(H) 0.9 - 1.1 [facility] Comment:METER #: [id number] TERNATIONAL NORMALIZED RATIO (INR) REFERENCE RANGES Reference [...] PM EST 08/18/2022 1:14 PM EST us [facility] External Provider LAB BLO OD ORDERABLES Final Result [facility] [address] [place] [phone] [phone] documented in this encounter Visit Diagnoses Not on filedocumented in this encounter Care Teams Profile Saw Setup Operator Relationship Specialty Start Date End Date Valeri Lerner DO [address] [place] [address] PCP - General Family Medicine 07/13/12 Batsheva Gomez PharmD [address] [place] [address] Pharmacist Internal Medicine 03/07/24 12/19/24 [employer] 12/08/23 documented as of this encounter
--- OUTSIDE RECORDS SUMMARY | 2025-06-13 19:55 | XMS_ITS | Clinical Summary ---
Author Organization [facility] Address [address] [place] [phone] Phone Care Team Providers Care Coin Machine Supervisor Name Role Phone Unavailable Primary Care [...] It is not the complete legal health record.[facility]
--- OUTSIDE RECORDS SUMMARY | 2025-06-13 19:55 | XMS_ITS | Encounter Summary ---
Author Organization [employer] Address [address] [place] [address] [address] [place] [address] Care Team Providers Care Label Stitcher Name Role Phone Valeri Lerner DO Primary Care Provider [phone] Batsheva Gomez PharmD Unavailable Reason for Visit * Reason Comments Med Refill Encounter Details Date Type Department Care Team (Late st Contact Info) Description 08/28/[address] [facility] [address] [place] [address] Valeri Lerner DO [address] [place], [place] [phone] Chronic constipation (Primary Dx) Social History Tobacco [...] 07/04/2025 1:00 PM EST Office Visit [facility] [address] [place] [address] Diana Eric MD [address] [place] [address] documented as of this encounter Visit Diagnoses Diagnosis Chronic constipation- Primary Unspecified constipation documented in this encounter Care Teams Label Stitcher Relationship Specialty Start Date End Date Valeri Lerner DO [address] [place], [place] [phone] PCP - General Family Medicine 07/13/12 Batsheva Gomez PharmD [address] [place] [address] Pharmacist Internal Medicine 03/07/24 12/19/24 [place] 12/08/23 documented as of this encounter
--- OUTSIDE RECORDS SUMMARY | 2025-06-13 19:55 | XMS_ITS | Patient Health Record ---
Author Organization [facility] Address [address] [facility] [place] [address] Care Team Providers Care Consulting Property Manager Name Role Phone Valeri Lerner Primary Care Provider Keenan Lowery Unavailable [phone] Allergies Allergen (clinical drug ingredient) Drug/Non Drug [...] Range Notes HEMOGLOBIN A1C (GLYCOHEMOGLO BIN) Reviewed date:01/13/2025 03:34:33 PM Interpretation: Performing Lab: Notes/Report: HEMOGLOBIN A1C % (HH) 7.1 Reason For Referral No Information Medications Medication SIG (Take, Route, Frequency, Duration) Notes Start Date End Date Status Fluticasone Propionate Active Ipratropium [place] Active Insulin Lispro Activ e Arestin Not-Taking [...] Duration: 18 Not-Taking Vitamin D3 50 MCG (1999) 1 capsule Orally Once a day Active [...] Problem Acquired hammer toe of right foot (2035449814961 105) Other hammer toe(s) (acquired), right foot (M20.41) Active confirmed Problem Type 2 diabetes mellitus with peripheral angiopathy (221431353) Type 2 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) Active confirmed Q7(A), Q8(2B), Q9(1B,2C) Problem Acquired hammer toe of left foot (4381753870494 103) Other hammer toe(s) (acquired), left foot (M20.42) Active confirmed Vital Signs Blood pressure diastolic 65 mm Hg 04/18/2025 Height 5 ft 5 in in 04/18/2025 Blood pressure systolic 140 mm Hg 04/18/2025 Weight 230 lbs 04/18/2025 BMI 38.27 kg/m2 04/18/2025 Procedures Procedure Date Ordered Date Performed Result Body Sit e 78721-EBKKRET NAIL, 6 OR MORE 08/16/2024 N/A 46138-CDHK SKIN LESIONS, OVER 4 08/16/2024 N/A 17364-GHXMUDU NAIL, 6 OR MORE 01/10/2025 N/A 29083-KHKH SKIN LESIONS, OVER 4 01/10/2025 N/A 67525-PKYDJHR NAIL, 6 OR MORE 04/18/2025 N/A 72170-OWJJ SKIN LESIONS, OVER 4 04/18/2025 N/A Encounters Encounter Location Date Provider Diagnosis [address] [address] 08/16/2024 Keenan Dyer Type 2 diabetes mellitus with diabetic peripheral angiopathy without gangrene E11.51 ; Tinea unguium B35.1 ; Pain in right toe(s) M79.674 ; Pain in left toe(s) M79.675 ; Other hammer toe(s) (acquired), left foot M20.42 ; Other hammer toe(s) (acquired), right foot M20.41 and Tinea pedis of both feet B35.[address] [address] 01/10/2025 Keenan Dyer Type 2 diabetes mellitus with diabetic peripheral angiopathy without gangrene E11.51 ; Other hammer toe(s) (acquired), right foot M20.41 ; Tinea unguium B35.1 ; Pain in right toe(s) M79.674 ; Pain in left toe(s) M79.675 ; Other hammer toe(s) (acquired), left foot M20.42 and Tinea pedis of both feet B35.[address] [address] 04/18/2025 Keenan Dyer Type 2 diabetes mellitus with diabetic peripheral angiopathy without gangrene E11.51 ; Tinea unguium B35.1 ; Pain in right toe(s) M79.674 ; Pain in left toe(s) M79.675 and Tinea pedis of both feet B35.3 [facility] [address] [address] 01/10/2025 Keenan Dyer [facility] [address] [address] 01/10/2025 Keenan Dyer Assessments Encounter Date Diagnosis [...] Treatment Pending Test Test Name Order Date 81424-SJTUQAR NAIL, 6 OR MORE 10/27/2016 48238-USVSZXY NAIL, 6 OR MORE 05/09/2017 33905-SPIAJRU NAIL, 6 OR MORE 08/21/2017 69741-QHPGQOH NAIL, 6 OR MORE 01/26/2017 47807-IHNHXNZ NAIL, 6 OR MORE 01/29/2018 72303-GMFJTLU NAIL, 6 OR MORE 07/09/2018 44878-CCNMNBQ NAIL, 6 OR MORE 11/22/2018 68529-DBEKHPT NAIL, 6 OR MORE 08/16/2024 74206-TLLAYKP NAIL, 6 OR MORE 01/10/2025 18597-TLDIAIU NAIL, 6 OR MORE 04/18/2025 43242-CSGFJSD NAIL, 1-5 12/21/2015 06629-FTJLBWU NAIL, 1-5 05/30/2016 73404-VNKLHRF NAIL, 1-5 02/18/2015 71632-AQHGHSA NAIL, 1-5 05/27/2015 96206-TWOOQVF NAIL, 1-5 09/23/2015 26824-Vgymkrby Plate 02/18/2015 16192-Aqzezwke Plate 05/30/2016 61394-Elftlmsy Plate 12/21/2015 88378-Ragdnvep Plate 09/23/2015 69754-Bggfgsck Plate 10/27/2016 47998-Wjqwsdht Plate 01/07/2019 52351-GPYB SKIN LESIONS, OVER 4 07/09/20 18 44558-USGN SKIN LESIONS, OVER 4 05/09/20 17 90616-VGHS SKIN LESIONS, OVER 4 04/18/20 25 48790-OFQY SKIN LESIONS, OVER 4 11/23/19 19 96052-KFDO SKIN LESIONS, OVER 4 01/11/20 25 01348-WMOD SKIN LESIONS, OVER 4 08/16/19 25 07119-MGPA SKIN LESIONS, OVER 4 10/28/19 17 12078-JQGV SKIN LESIONS, OVER 4 01/27/20 17 57230-GVXD SKIN LESIONS, OVER 4 08/21/19 18 15472-UVHJ SKIN LESIONS, OVER 4 01/30/20 18 98130-GACV SKIN LESIONS, 2 TO 4 02/19/20 15 77866-ZBVF SKIN LESIONS, 2 TO 4 05/27/20 15 29225-ABKA SKIN LESIONS, 2 TO 4 09/23/19 16 39746-VVMK SKIN LESIONS, 2 TO 4 12/21/19 16 23197-WAUQ SKIN LESIONS, 2 TO 4 05/30/20 16 71414-Nfnn. Subungual Hematoma 9 E9519-DVKFFTKV DYSTROPHIC NAILS ANY # N3331-HBWVNBOK DYSTROPHIC NAILS ANY # Q1300-WMJMGOCZ DYSTROPHIC NAILS ANY # F3712-ZRCAMUTH DYSTROPHIC NAILS ANY # Next Appt Details Provider Name:Keenan Islas Manisha , 08/15/2025 12:45:00 PM, [address] [place], [address], Insurance Providers Payer Name Payer Address Payer Phone Subscriber Number Group Number Insured Name Patient Relationship to Insured Coverage Start Date Coverage End Date [facility] Medicare-309 [id number] [address] [place] [address] [id number] Nikky Morgan Self - patient is the insured Medical (General) History Medical History History ICD Code Anxiety Arthritis asthma Back,Hip,and Knee pain Broken bones Diabetic Stroke Thyroid disorder blood clots Gout Heart disease Surgical History Surgery Date(Month/Year) cataract surgery left eye 11/09/2018 Hospitalization History Reason Date(Month/Year) [facility] for a cough 2018
--- OUTSIDE RECORDS SUMMARY | 2025-06-13 19:55 | XMS_ITS | Encounter Summary ---
Author Organization [employer] Address [address] [facility] 7[address] [place] [address] Care Team Providers Care Log Buyer Name Role Phone Valeri Lerner DO Primary Care Provider + [phone] Encounter Details Date Type Department Care Team ([facility] st Contact Info) Description 12/24/[address] [facility] [address] [place], [place] [phone] Valeri Lerner DO [address] [place], [place] [phone] Social History Tobacco Use Types Packs/Day Years [...] 1:00 PM EST Office Visit [facility] [address] [place] [address] Diana Eric MD [address] [place], [place] [phone] documented as of this encounter Goals Goal [...] documented as of this encounter Care Teams Log Buyer Relationship Specialty Start Date End Date Valeri Lerner DO [address] [place] [address] PCP - General Family Medicine 07/13/12 [place] 12/08/23 documented as of this encounter
--- OUTSIDE RECORDS SUMMARY | 2025-06-13 19:56 | XMS_ITS | Encounter Summary ---
Author Organization [facility] Address [id number] [place] [address] Care Team Providers Care Crowning Inspector Name Role Phone Valeri Lerner DO Primary Care Provider [phone] Encounter Details Date Type Department Care Team (Late st Contact Info) Description 06/09/2025 Lab Requisition [facility] [address] [facility] [place] [address] Macario Green MD [address] [place] [address] Unspecified atrial fibrillation (CMS/HCC V24, CMS/HCC V28) [...] Diagnosis Comments PROTHROMBIN TIME WITH INR Routine 06/09/2025 8:05 AM EST Unspecified atrial fibrillation (CMS/HCC V24, CMS/HCC V28) documented in this encounter Results * (ABNORMAL) Prothrombin time with INR (06/09/2025 8:05 AM EST) Protime 37.6(H) 10.6 - 13.9 sec LAB COAGULATION METHOD 06/09/2025 10:54 AM EST [facility] INR 3.1 LAB COAGULATION METHOD 06/09/2025 10:[address] [facility] Blood Venous blood specimen / Unknown Venipuncture / Unknown 06/09/2025 8:05 AM EST 06/09/2025 10:05 AM EST us Macario rGeen MD LAB BLOOD ORDERABLES Final R esult [facility] [address] [place] [address], documented in this encounter Visit Diagnoses Diagnosis Unspecified atrial fibrillation (CMS/HCC V24, CMS/HCC V28) documented in this encounter Care Teams Crowning Inspector Relationship Specialty Start Date End Date Valeri Lerner DO [address] [place] [address] PCP - General 11/15/14 documented as of this encounter
--- OUTSIDE RECORDS SUMMARY | 2025-06-13 19:56 | XMS_ITS ---
Author Name Yelena Barillas NP Address [address] [place] [address] Phone [phone] [facility] Care Team Providers Care Ar Manager Name Role Phone Eran Yelena Unavailable [phone] CATALINA BAGLEY Unavailable [phone] Samantha Baker Unavailable [phone] [facility] Unavailable Reason for Referral Not Available [...] 2024-03-29 No Data Available Comfort EZ Pen Rufus 32 gauge x 5/32 USE DIRECTED WITH [...] Date Synopsis Atherosclerosis of coronary artery of saxman heart Active 2022-08-30 N/A cont lasix stati [...] feeling wellReport consistent blood pressures readings >140/90/06/24: AGRICULTURE MANAGER reports that in the last couple of days the patient's toes have been pink and sensitive to touch, denies uncontrolled pain to touch. She has an appointment with the automobile parker on monday for further evaluation.01/28/25: Patient denies BLE edema or dyspnea, denies any acute concerns. COPD (chronic obstructive pulmonary disease) Active 2022-08-15 N/A advjhoana hayes casonefu w pulmonaryon Room Air -Stable-continue to f/u with PCP/specialists-continue rx'd medications-report changes in chronic condition Incontinence; Mixed stress and urge urinary incontinence Active 2024-11-22 N/A Incontinence sup plies ordered on 11/22-continue f/u with urology [facility] Unsteady gait Active 2024-12-10 N/A AGRICULTURE MANAGER reports that the patient has unsteady gait [...] N/A -Patient has gurwinder ly VNA and AGRICULTURE MANAGER services. She lives alone in a third floor apartment with close family support from daughter. Daughter requesting increase in AGRICULTURE MANAGER hoursPCA- Sully -Advised to reach out to [facility] cc [place] currently approximate 30hours per weekCognition [...] NoDo you have a Durable Power of Salvage Mend Worker for Healthcare, or Healthcare Proxy Or Guardianship? 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 [...] (do not use for phone, instead use 31191-02) [facility] Paroxysmal atrial fibrillationChronic obstructive pulmonary disease, unspecifiedAthscl heart disease of saxman coronary artery w/o ang pctrsType 2 diabetes [...] (do not use for phone, instead use 42709-57) [facility] New patient,40-59min ; chronic exacerbation, 2 stable chronic or 1 acute illness add add modifier 95 for video (do not use for phone, instead use 51971-31) [facility] New patient,40-59min ; chronic exacerbation, 2 stable chronic or 1 acute illness add add modifier 95 for video (do not use for phone, instead use 94102-34) [facility] New patient,40-59min ; chronic exacerbation, 2 stable chronic or 1 acute illness add add modifier 95 for video (do not use for phone, instead use 54577-91) [facility] New patient,40-59min ; chronic exacerbation, 2 stable chronic or 1 acute illness add add modifier 95 for video (do not use for phone, instead use 00268-44) [facility] New patient,40-59min ; chronic exacerbation, 2 stable chronic or 1 acute illness add add modifier 95 for video (do not use for phone, instead use 45720-77) [facility] New patient,40-59min ; chronic exacerbation, 2 stable chronic or 1 acute illness add add modifier 95 for video (do not use for phone, instead use 70232-67) [facility]/20[place] Estab. patient 20-29min; 1 stable chronic or 2 minor; add add modifier 95 for video, modifier 93 for phone [facility] 10/03/2022 Pneumonia, unspecified organismSepsis, unspecified organism Estab. patient 20-29min; 1 stable chronic or 2 minor; add add modifier 95 for video, modifier 93 for phone [facility] 10[place]03/2022 Estab. patient 20-29min; 1 stable chronic or 2 minor; add add modifier 95 for video, modifier 93 for phone [facility] 10/03/2022 Estab. patient 20-29min; 1 stable chronic or 2 minor; add add modifier 95 for video, modifier 93 for phone [facility] 10/03/2022 Estab. patient 20-29min; 1 stable chronic or 2 minor; add add modifier 95 for video, modifier 93 for phone [facility]/03/2022 Estab. patient 20-29min; 1 stable chronic or 2 minor; add add modifier 95 for video, modifier 93 for phone [facility] 10[place]03/2022 Estab. patient 30-39min; chronic exacerbation, 2 stable chronic or 1 acute illness add add modifier 95 for video, (do not use for phone, instead use 31217-09) [facility]2024 Paroxysmal atrial fibrillati onOther thrombophiliaHypertensive heart disease with heart failureMorbid (severe) obesity due to excess caloriesSecondary hyperaldosteronismChronic obstructive pulmonary disease, unspecifiedHeart failure, unspecifiedMajor depressive disorder, single episode, in partial remissionType 2 diabetes mellitus with other specified complicationHypothyroidism, unspecifiedHyperlipidemia, unspecifiedAthscl heart disease of saxman coronary artery w/o ang pctrsAnemia in other chronic diseases classified elsewhereGeneralized anxiety disorderBody mass index (BMI) 40.0-44.9, adultPrsnl hx of TIA (TIA), and cereb infrc w/o resid deficitsOther problems related to medical facilities and other health care Estab. patient 30-39min; chronic exacerbation, 2 stable chronic or 1 acute illness add add modifier 95 for video, (do not use for phone, instead use 80435-40) [facility] Estab. patient 30-39min; chronic exacerbation, 2 stable chronic or 1 acute illness add add modifier 95 for video, (do not use for phone, instead use 48890-99) [facility] Estab. patient 30-39min; chronic exacerbation, 2 stable chronic or 1 acute illness add add modifier 95 for video, (do not use for phone, instead use 62154-77) [facility] Estab. patient 30-39min; chronic exacerbation, 2 stable chronic or 1 acute illness add add modifier 95 for video, (do not use for phone, instead use 01109-67) [facility] Estab. patient 30-39min; chronic exacerbation, 2 stable chronic or 1 acute illness add add modifier 95 for video, (do not use for phone, instead use 61857-28) [facility] Estab. patient 30-39min; chronic exacerbation, 2 stable chronic or 1 acute illness add add modifier 95 for video, (do not use for phone, instead use 23269-27) [facility] Estab. patient 30-39min; chronic exacerbation, 2 stable chronic or 1 acute illness add add modifier 95 for video, (do not use for phone, instead use 24148-17) [facility] Estab. patient 30-39min; chronic exacerbation, 2 stable chronic or 1 acute illness add add modifier 95 for video, (do not use for phone, instead use 37925-05) [facility] Estab. patient 30-39min; chronic exacerbation, 2 stable chronic or 1 acute illness add add modifier 95 for video, (do not use for phone, instead use 83339-06) [facility] Estab. patient 30-39min; chronic exacerbation, 2 stable chronic or 1 acute illness add add modifier 95 for video, (do not use for phone, instead use 65509-22) [facility] Estab. patient 10-29min; 1 minor problem; add add modifier 95 for video, modifier 93 for phone [facility] 09[place]/2024 Heart failure, unspecifiedSe condary hyperaldosteronismOther problems related to medical facilities and other health care Estab. patient 10-29min; 1 minor problem; add add modifier 95 for video, modifier 93 for phone [facility] 10[place]10[place]2024 Chronic obstructive pulmonar y disease, unspecifiedHypertensive heart disease with heart failureHeart failure, unspecified Estab. patient 10-29min; 1 minor problem; add add modifier 95 for video, modifier 93 for phone [facility]07/2024 Acute respiratory failure wi th hypoxiaChronic obstructive pulmonary disease, unspecifiedPneumonia, unspecified organismUnspecified urinary incontinenceOther problems related to medical facilities and other health care Estab. patient 10-29min; 1 minor problem; add add modifier 95 for video, modifier 93 for phone [facility]/07/20[place] Estab. patient 10-29min; 1 minor problem; add add modifier 95 for video, modifier 93 for phone [facility] 11/07/2024 Estab. patient 10-29min; 1 minor problem; add add modifier 95 for video, modifier 93 for phone [facility]/07/20[place] Estab. patient 10-29min; 1 minor problem; add add modifier 95 for video, modifier 93 for phone [facility] 12[place]2024 Acute respiratory failure wi th hypoxiaPneumonia, unspecified organismUnsteadiness on feetOther problems related to medical facilities and other health care Estab. patient 10-29min; 1 minor problem; add add modifier 95 for video, modifier 93 for phone [facility] 01/[place]/2025 Heart failure, unspecifiedSe condary hyperaldosteronismChronic obstructive pulmonary disease, unspecified RN, CN or CP time with patient by phone; use with 1111F, BP, A1c or other CPTII codes [facility] 02/18/2025 Encounter for other specifie d aftercare RN, CN or CP time with patient by phone; use with 1111F, BP, A1c or other CPTII codes [facility] 02/18/2025 Estab. patient 10-29min; 1 minor problem; add add modifier 95 for video, modifier 93 for phone [facility] 02/27/2025 Urinary tract infection, sit e not specifiedOther problems related to medical facilities and other health care Estab. patient 10-29min; 1 minor problem; add add modifier 95 for video, modifier 93 for phone [facility] 02/27/2025 Estab. patient 10-29min; 1 minor problem; add add modifier 95 for video, modifier 93 for phone [facility] 02/27/2025 Estab. patient 10-29min; 1 minor problem; add add modifier 95 for video, modifier 93 for phone [facility] 02/27/2025 Estab. patient 10-29min; 1 minor problem; add add modifier 95 for video, modifier 93 for phone [facility] 04/02/2025 Polyosteoarthritis, unspecifiedParoxysmal atrial fibrillationOther thrombophiliaChronic obstructive pulmonary disease, unspecifiedAthscl heart disease of saxman coronary artery w/o ang pctrsType 2 diabetes [...] tive Time Current Smoking Status Former smoker 2025-05-31 5 Sex Female Gender identity Woman History of Procedures Procedures Service Procedure code Service date Servicing provider Phone# New patient,40-59min; chronic exacerbation, 2 stable chronic or 1 acute illness add add modifier 95 for video (do not use for phone, instead use 54621-25) [id number] 2022-08-25 No Data Available No Data Availa [...] 95 for video, modifier 93 for phone [id number] 2022-10-03 No Data Available No Data Availa [...] (do not use for phone, instead use 70210-50) 12838 2024-05-28 No Data Available No Data Availa [...] 95 for video, modifier 93 for phone 53326 2024-09-10 No Data Available No Data Availa ble Estab. patient 10-29min; 1 minor problem; add add modifier 95 for video, modifier 93 for phone 76328 2024-10-10 No Data Available No Data Availa [...] 95 for video, modifier 93 for phone [id number] 2024-12-10 No Data Available No Data Availa ble Estab. patient 10-29min; 1 minor problem; add add modifier 95 for video, modifier 93 for phone [id number] 2025-01-28 No Data Available No Data Availa ble RN, CN or CP time with patient by phone; use with 1111F, BP, A1c or other CPTII codes 04442 2025-02-18 No Data Available No Data Avai [...] 95 for video, modifier 93 for phone [id number] 2025-04-02 No Data Available No Data Availa [...] obstructive pulmonary disease)Atherosclerosis of coronary artery of saxman heartType 2 diabetes mellitus with hyperlipidemiaMajor depressive disorder in partial remissionHypothyroidismMorbid obesity due to excess caloriesHistory of CVA (cerebrovascular accident)Anemia in chronic illness 2022-10-03 07:05:20 Patient Education to avoid future hospitalization: Call [facility] if symptoms of illness develop.Sepsis due to pneumonia 2024-05-28 07:45:46 paroxysmal atrial fi brillation and Hypercoagulability due to atrial fibrillationCOPD (chronic obstructive pulmonary disease)Atherosclerosis of coronary artery of saxman heartType 2 diabetes mellitus with hyperlipidemiaMajor depressive [...] obstructive pulmonary disease)Atherosclerosis of coronary artery of saxman heartType 2 diabetes mellitus with hyperlipidemia; Type [...] lantus, metformin, trulicty a1c 7.7, [facility] simvastatin and mtr lipids fu w endocrinecont on sertralinept denies symptoms currentlycont to [facility] fcont clonazepam for anxiety/insomnialevothyroxinefu w [...] may arise 20/02.HEART FAILURE CONTINGENCY PLANLast updated: 05/29/2024[facility] to call for the following symptoms: BP [...] feeling wellReport consistent blood pressures readings >140/902/06/24: AGRICULTURE MANAGER reports that in the last couple of days the patient's toes have been pink and sensitive to touch, denies uncontrolled pain to touch. She has an appointment with the automobile parker on monday for further evaluation. 2024-10-10 06:15:41 Estab. patient 10-29 min; 1 minor problem; add add modifier 95 for video, modifier 93 for phoneContinue to see PCP. [facility] any acute or disease education needs that may arise 20/02.advair, fluticasonefu w pulmonary3: Patient denies dyspnea or any other concerns.Encourage low sodium diet. Encouraged daily blood pressure checks and tracking. Instructed patient to notify CB or PCP if blood pressure >140/90 or <90/50.HEART FAILURE CONTINGENCY PLANLast updated: 05/29/2024[facility] to call for the following symptoms: BP [...] the patient is home with family and AGRICULTURE MANAGER/VNA care. The patient is currently has a soft diet and increase weakness post hospitalization. Medication reconciled with hospital records, unable to confirm with VNAHEART FAILURE CONTINGENCY PLANLast updated: 05/29/2024[facility] to call for the following symptoms: BP <100/60 / BP >180/100 / Edema/ Exertional dyspnea/ Weight gain or lossPlanned intervention: Increase furosemide (Lasix) to 60 mg for 3 days/ Wrap legs with Mohan wrap/ Put on compression stockings/ Eat lower sodium foods/ Take medication every single dayCOPD CONTINGENCY PLANLast updated: 11/22/2024[facility] to call for the following symptoms: Exertional [...] or disease education needs that may arise 20/02.AGRICULTURE MANAGER reports that the patient has unsteady gait with walking, requires assistance during ambulation. Hx of falls.11/07/24: Hospitalization 10/21-10/21 for acute hypoxic respiratory failure secondary to pneumonia. Patient presented to cough and shortness of breath. The patient was discharged to a STR. In addition, the patient had ER visit 11/05 for aspiration pneumonia. At this time, the patient is home with family and AGRICULTURE MANAGER/VNA care. The patient is currently has a soft diet and increase weakness post hospitalization. Medication reconciled with hospital records, unable to confirm with VNA12/10/24: Cg reports that the patient does not have any acute symptoms, she is 'stable'. She is aware that the patient will continue to steadily decline.HEART FAILURE CONTINGENCY PLANLast updated: 05/29/2024[facility] to call for the following symptoms: BP <100/60 / BP >180/100 / Edema/ Exertional dyspnea/ Weight gain or lossPlanned intervention: Increase furosemide (Lasix) to 60 mg for 3 days/ Wrap legs with Mohan wrap/ Put on compression stockings/ Eat lower sodium foods/ Take medication every single dayCOPD CONTINGENCY PLANLast updated: 11/22/2024[facility] to call for the following symptoms: Exertional dyspnea/ Increased cough / WheezingPlanned intervention: Levofloxacin 500mg daily x 5 daysFALL CONTINGENCY PLANMember to call for the following symptoms: Fall / Pre-syncope/ Refusing to use cane / WeaknessPlanned intervention: Order x-ray at [facility] or local hospital Assess for change in [...] feeling wellReport consistent blood pressures readings >140/902/06/24: AGRICULTURE MANAGER reports that in the last couple of days the patient's toes have been pink and sensitive to touch, denies uncontrolled pain to touch. She has an appointment with the automobile parker on monday for further evaluation.01/28/25: Patient denies BLE edema or dyspnea, denies any acute concerns.advair, fluticasonefu w pulmonary01/28/25: Patient denies dyspnea or any other concerns.HEART FAILURE CONTINGENCY PLANLast updated: 05/29/2024[facility] to call for the following symptoms: BP <100/60 / BP >180/100 / Edema/ Exertional dyspnea/ Weight gain or lossPlanned intervention: Increase furosemide (Lasix) to 60 mg for 3 days/ Wrap legs with Mohan wrap/ Put on compression stockings/ Eat lower sodium foods/ Take medication every single dayCOPD CONTINGENCY PLANLast updated: 11/22/2024[facility] to call for the following symptoms: Exertional dyspnea/ Increased cough / WheezingPlanned intervention: Levofloxacin 500mg daily x 5 daysFALL CONTINGENCY PLANMember to call for the following symptoms: Fall / Pre-syncope/ Refusing to use cane / WeaknessPlanned intervention: Order x-ray at [facility] or local hospital Assess for change in [...] for phoneContinue to see PCP. Follow-up with [facility] as needed for any acute or disease education needs that may arise.02/15-02/17 hospitalization due to a fall. Dx with a urinary tract infection and treated with an antibiotic. Cg denies any current symptoms or concerns.UTI CONTINGENCY PLANLast updated: 02/27/2025[facility] to call for the following symptoms: Dysuria/ [...] cane / WeaknessPlanned intervention: Order x-ray at [facility] or local hospital Assess for change in [...] with PCP/specialists-continue rx'd medications-report changes in chronic teszcjgvrohgifwzsy-Boqthe-pbnlxclh to f/u with PCP/specialists-continue rx'd medications-report changes [...] feeling wellReport consistent blood pressures readings >140/902/06/24: AGRICULTURE MANAGER reports that in the last couple of days the patient's toes have been pink and sensitive to touch, denies uncontrolled pain to touch. She has an appointment with the automobile parker on monday for further evaluation.01/28/25: Patient denies [...] on 11/22-[facility] the patient has unsteady gait with walking, requires assistance during ambulation. Hx of falls.-Patient has daily VNA and AGRICULTURE MANAGER services. She lives alone in a third floor apartment with close family support from daughter. Daughter requesting increase in AGRICULTURE MANAGER hoursPCAJigna Virk -Advised to reach out to [facility] cc [place] currently approximate 30hours per weekCognition [...] NoDo you have a Durable Power of Salvage Mend Worker for Healthcare, or Healthcare Proxy Or Guardianship? [...] discussion: (Who was present, : member and KUA-Ntswcd-qxmcgard to f/u with PCP/specialists-continue rx'd medications-report changes [...] NoDo you have a Durable Power of Salvage Mend Worker for Healthcare, or Healthcare Proxy Or Guardianship? [...] discussion: (Who was present, : member and AGRICULTURE MANAGER 2025-04-02 Functional Assessmen tCognition Status: Oriented to [...]
--- OUTSIDE RECORDS SUMMARY | 2025-06-13 19:56 | XMS_ITS | Encounter Summary ---
Author Organization [facility] Address [id number] [place] [id number] Care Team Providers Care Mat Machine Operator Name Role Phone Valeri Lerner DO Primary Care Provider [phone] Encounter Details Date Type Department Care Team (Late st Contact Info) Description 06/10/2025 Lab Requisition [facility] - Main Lab [address] [facility] [address] [place] [address] Macario Green MD [address] [place] [address] Unspecified atrial fibrillation (CMS/HCC V24, CMS/HCC V28) [...] Diagnosis Comments PROTHROMBIN TIME WITH INR Routine 06/10/2025 6:10 AM EST Unspecified atrial fibrillation (CMS/HCC V24, CMS/HCC V28) documented in this encounter Results * (ABNORMAL) Prothrombin time with INR (06/10/2025 6:10 AM EST) Protime 31.2(H) 10.6 - 13.9 sec LAB COAGULATION METHOD 06/10/2025 8:[address] [facility] INR 2.5 LAB COAGULATION METHOD 06/10/2025 8:[address] [facility] Blood Venous blood specimen / Unknown Venipuncture / Unknown 06/10/2025 6:10 AM EST 06/10/2025 8:01 AM EST us Macario Green MD LAB BLOOD ORDERABLES Final R esult [facility] ([facility]) [facility] [address] [place] [address], documented in this encounter Visit Diagnoses Diagnosis Unspecified atrial fibrillation (CMS/HCC V24, CMS/HCC V28) documented in this encounter Care Teams Mat Machine Operator Relationship Specialty Start Date End Date Valeri Lerner DO [address] [place] [address] PCP - General 11/15/14 documented as of this encounter
--- OUTSIDE RECORDS SUMMARY | 2025-06-13 19:56 | XMS_ITS | Encounter Summary ---
Author Organization [facility] Address [address] [place] [phone] Care Team Providers Care Loading Machine Operator Helper Name Role Phone Valeri Lerner DO Primary Care Provider [phone]- [phone] Encounter Details Date Type Department Care Team (Late st Contact Info) Description 06/05/2025 Lab Requisition [facility] - Main Lab [address] [place] [address] Macario Green MD [address] [place] [address] Unspecified atrial fibrillation (CMS/HCC V24, CMS/HCC V28) [...] Diagnosis Comments PROTHROMBIN TIME WITH INR Routine 06/05/2025 7:00 AM EST Unspecified atrial fibrillation (CMS/HCC V24, CMS/HCC V28) documented in this encounter Results * (ABNORMAL) Prothrombin time with INR (06/05/2025 7:00 AM EST) Protime 19.2(H) 10.6 - 13.9 sec LAB COAGULATION METHOD 06/05/2025 8:45 AM EST [facility] INR 1.6 LAB COAGULATION METHOD 06/05/2025 8:45 AM EST [facility] Blood Venous blood specimen / Unknown Venipuncture / Unknown 06/05/2025 7:00 AM EST 06/05/2025 8:16 AM EST us Macario Green MD LAB BLOOD ORDERABLES Final R esult [facility] ([facility]) [facility] [address] [place] [address], documented in this encounter Visit Diagnoses Diagnosis Unspecified atrial fibrillation (CMS/HCC V24, CMS/HCC V28) documented in this encounter Care Teams Loading Machine Operator Helper Relationship Specialty Start Date End Date Valeri Lerner DO [address] [place] [address] PCP - General 11/15/14 documented as of this encounter
--- OUTSIDE RECORDS SUMMARY | 2025-06-13 19:56 | XMS_ITS | Encounter Summary ---
Author Organization [facility] Address [address] [place] [id number] Care Team Providers Care Exterior Interior Specialist Name Role Phone Valeri Lerner DO Primary Care Provider [phone]- [phone] Encounter Details Date Type Department Care Team (Late st Contact Info) Description 06/11/2025 Lab Requisition [facility] - Main Lab [address] [facility] [place] [address] Macario Green MD [address] [place] [address] Unspecified atrial fibrillation (CMS/HCC V24, CMS/HCC V28) [...] time with INR (06/12/2025 7:54 AM EST) Protime 23.4(H) 10.6 - 13.9 sec LAB COAGULATION METHOD 06/12/2025 10:32 AM EST [facility] INR 1.9 LAB COAGULATION METHOD 06/12/2025 10:32 AM EST [facility] Blood Venous blood specimen / Unknown Venipuncture / Unknown 06/12/2025 7:54 AM EST 06/12/2025 10:16 AM EST us Macario Green MD LAB BLOOD ORDERABLES Final R esult [facility] ([facility]) [facility] [address] [place] [address], documented in this encounter Visit Diagnoses Diagnosis Unspecified atrial fibrillation (CMS/HCC V24, CMS/HCC V28) documented in this encounter Care Teams Exterior Interior Specialist Relationship Specialty Start Date End Date Valeri Lerner DO [address] [place] [address] PCP - General 11/15/14 documented as of this encounter
--- OUTSIDE RECORDS SUMMARY | 2025-06-13 19:56 | XMS_ITS | Encounter Summary ---
Author Organization [facility] Address [address] [place] [address] Care Team Providers Care Contact Assembler Name Role Phone Valeri Lerner DO Primary Care Provider [phone]- [phone] Encounter Details Date Type Department Care Team (Latest Contact Info) Description 06/07/[address] 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 Social History Tobacco [...] Diagnosis Comments PROTHROMBIN TIME WITH INR Routine 06/07/2025 5:28 AM EST half-way (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 documented in this encounter Results * (ABNORMAL) Prothrombin time with INR (06/07/2025 5:28 AM EST) Protime 30.8(H) 10.6 - 13.9 sec LAB COAGULATION METHOD 06/07/2025 7:57 AM EST [facility] INR 2.5 LAB COAGULATION METHOD 06/07/2025 7:57 AM EST [facility] Blood Venous blood specimen / Unknown Venipuncture / Unknown 06/07/2025 5:28 AM EST 06/07/2025 7:22 AM EST us Macario Green MD LAB BLOOD ORDERABLES Final R esult 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
--- OUTSIDE RECORDS SUMMARY | 2025-06-13 19:57 | XMS_ITS | Encounter Summary ---
Author Organization [facility] Address [address] [place] [address] [address] [place] [address] Care Team Providers Care Belt Sander Stone Name Role Phone Valeri Lerner DO Primary Care Provider +1- Batsheva Gomez PharmD Unavailable [phone] Encounter Details Date Type Department Care Team (Latest Contact Info) Description 11/11/2020 Abstract [facility] CONVERSIONS Dental, Provider, DDS Social History Tobacco [...] Encounters Date Type Department Care Team ( Contact Info) Description 07/04/2025 1:00 PM EST Office Visit [facility] MEDICINE [address] [place], [place] [id number] Diana Eric MD [address] [place] [address] documented as of this encounter Visit Diagnoses Not on filedocumented in this encounter Care Teams Belt Sander Stone Relationship Specialty Start Date End Date Valeri Lerner DO [address] [place] [address] PCP - General Family Medicine 07/13/12 Batsheva Gomez PharmD [address] [place] [address] Pharmacist Internal Medicine 03/07/24 12/19/24 [facility] 12/08/23 documented as of this encounter
== END 2025-06-13 14:24 | disposition home or self-care (01) ==
LOC: HO.HCS 13:33
PROVIDERS: Visit Provider Nurse Practitioner Family
DX: I50.9 Heart failure, unspecified (principal); I48.0 Paroxysmal atrial fibrillation; I45.9 Conduction disorder, unspecified; Z79.01 Long term (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; I65.23 Occlusion and stenosis of bilateral carotid arteries; E78.00 Pure hypercholesterolemia, unspecified; Z01.810 Encounter for preprocedural cardiovascular examination
CPT/HCPCS: 99214; G2211

== ENCOUNTER 2025-06-13 14:39 | Outpatient (AMB) | payer OTHER, MEDICAID, SELFPAY ==
--- NOTE | 2025-06-13 15:08 | A.OFFVIS_ITS ---
Intake Visit Reasons: Mixed stress and urge urinary incontinence Intake Note: New patient presents today for initial visit for mixed stress and urge incontinence Urology Medication:None Blood Thinner:None Antibiotic Allergies:None PVR:0ml Allergies shellfish derived Allergy (Severe, Verified 07/28/25 12:03) Hives aspirin (Aspirin) Allergy (Mild, Verified 07/28/25 12:03) Gastrointestinal Upset ibuprofen Allergy (Unknown, Verified 07/28/25 12:03) Unknown oxycodone (From PERCOCET) Allergy (Unknown, Verified 07/28/25 12:03) PALPITATIONS Robitussin Cold Cough+ Chest Allergy (Intermediate, Uncoded 07/28/25 12:03) hives SEAFOOD Allergy (Intermediate, Uncoded 07/28/25 12:03) hives HPI Comments Details: 06/13/25-- History of Present Illness The patient is an 89-year-old female presenting with lower urinary tract symptoms of urinary frequency and incontinence. The patient has been experiencing urinary incontinence, which has been persistent despite medication with solifenacin, indicating inadequate symptom control. She was recently discharged from a snf where she received physical therapy. Results - Labs: Positive nitrite in urine indicating a urinary tract infection - Imaging: Kidney ultrasound showed cysts but no masses or stones 1. Urinary Tract Infection (Uti) 2. Urinary Incontinence - Evaluate current medication efficacy and consider alternative treatments if symptoms persist. 3. Renal cysts, simple PFSH Medical History Prolonged QT interval Prolonged QT interval Heart block Hypertension CHF (congestive heart failure) Pneumonia Multiple falls Acute on chronic respiratory failure with hypoxemia Weakness Urgency incontinence Menopause Well woman exam Current use of anticoagulant therapy Stenosis of carotid artery Diabetes type 2, controlled Sepsis Gastroenteritis Hypoxia Pneumonia Urinary incontinence Obesity due to excess calories Type 2 diabetes mellitus with diabetic polyneuropathy Senile cataract of left eye Essential hypertension Hyperlipemia Paroxysmal A-fib Anxiety disorder Hypothyroidism Coronary artery disease History of cerebrovascular accident Osteoarthritis Osteopenia Deep vein thrombosis Hearing loss Surgical History H/O colonoscopy H/O breast surgery S/P IVC filter History of bilateral tubal ligation Family History Father Heart disease CVD (cardiovascular disease) Mother Diabetes Social History Household Members: None Housing: Assisted Living Facility Do you presently have visiting nurse or other home services: Yes Alcohol intake: never Comment: Luda WATSON Patient Tobacco Use Status: Former Tobacco user Tobacco use type: Cigarette Currently Displaying Signs/Symptoms of Drug Intoxication Withdrawal: No Have you been hit, kicked, punched, or otherwise hurt by someone within the past year? If so, by whom?: No Do you feel safe in your current relationship?: No Current Relationship Is there a partner from a previous relationship who is making you feel unsafe now?: No Are you made to feel afraid or neglected: No Advance Directives: Yes Advance Directives on File: Yes Advance Directives Date on File: 07/01/22 Recently lost weight without trying: No Patient : No service: No Current occupational status: unemployed Sexual orientation: Straight/Heterosexual Gender identity: Female Female Reproductive History Menstrual Age of Menarche: 10 Review of Systems Const All systems reviewed & are unremarkable except as noted in HPI and below Reports no additional complaints Eyes Reports no additional complaints ENT Reports no additional complaints Card Reports no additional complaints Resp Reports no additional complaints GI Reports no additional complaints Reports as per HPI Musc Reports no additional complaints Skin/Breast Reports system reviewed and no additional complaints, except as documented Neuro Reports no additional complaints Psych Reports no additional complaints Endo Reports no additional complaints Hernando/Lymph Reports no additional complaints Aller/Immun Reports no additional complaints Physical Exam Const General: cooperative, healthy appearing and no acute distress Orientation/consciousness: patient oriented x3 HEENT Head: Yes normal to inspection, Yes normocephalic and Yes atraumatic Eyes Conjunctivae: conjunctivae normal Neck Neck: Yes normal visual inspection and Yes trachea midline Chest Chest palpation & inspection: normal inspection of the chest Resp Effort & Inspection: normal respiratory effort Cardio Rate: regular rate GI Inspection: Yes normal to inspection Neuro General: patient oriented x3 Psych Appearance: grossly normal Office Procedures Post Void Residual Post Residual Void Post Void Residual (PVR): 0 [id number] Void Residual by ultrasound Assessment & Plan Assessment & Plan (1) Recurrent UTI: Code(s): N39.0 - Urinary tract infection, site not specified Category: Medical (2) Renal cyst: Code(s): N28.1 - Cyst of kidney, acquired Category: Medical Plan 1. Urinary Tract Infection (Uti) 2. Urinary Incontinence - Evaluate current medication efficacy and consider alternative treatments if symptoms persist. 3. Renal cysts, simple 4. sched renal US 5. FU office cystoscopy Orders: Orders AMB Post Void Residual by ultrasound 06/13/25 R32 - Unspecified urinary incontinence Patient Instructions: The patient had an opportunity to ask questions regarding treatment plan. The patient expressed understanding and agreement with the above treatment plan. The patient is aware they should contact our office by phone for worsening of their current condition or the appearance of new symptoms. Compliance is encouraged with any medications and followup testing that is ordered. It is a privilege to be allowed the opportunity to participate in the urologic care of your patient. If you have any questions or concerns regarding treatment for the above conditions please do not hesitate to contact me. The office telephone contact is [phone]. This note is constructed in part using voice recognition software. While every effort has been made to ensure accuracy straight cutter machine errors may have been included. Yours sincerely, Sarmad Loza MD Scribe Plan - Not visible on output: Patient was informed and verbally consented to the use of an ambient scribe for clinic note documentation during this visit. Coding Level of Care Code New Pt Level 4 (46188) Diagnoses Recurrent UTI N39.0 Renal cyst N28.1 CPT Codes Post Residual Void - PVR CPT Code: 13172-[id number] Void Residual by ultrasound ([id number])
--- OUTSIDE RECORDS SUMMARY | 2025-06-13 22:05 | XMS_ITS ---
Author Name Yelena Barillas NP Address [address] [place] [address] Phone [phone] [facility] Care Team Providers Care House Detective Name Role Phone Eran Yelena Unavailable [phone] CATALINA BAGLEY Unavailable [phone] Samantha Baker Unavailable [phone] [facility] Unavailable Reason for Referral Not Available Allergies, [...] 2024-03-29 No Data Available Comfort EZ Pen [place] 32 gauge x 5/32 USE DIRECTED WITH [...] Date Synopsis Atherosclerosis of coronary artery of nenana heart Active 2022-08-30 N/A cont lasix stati [...] feeling wellReport consistent blood pressures readings >140/90/06/24: TECHNICAL TRANSLATOR reports that in the last couple of days the patient's toes have been pink and sensitive to touch, denies uncontrolled pain to touch. She has an appointment with the family dinner service specialist on monday for further evaluation.01/28/25: Patient denies BLE edema or dyspnea, denies any acute concerns. COPD (chronic obstructive pulmonary disease) Active 2022-08-15 N/A advjhoana hayes casonefu w pulmonaryon Room Air -Stable-continue to f/u with PCP/specialists-continue rx'd medications-report changes in chronic condition Incontinence; Mixed stress and urge urinary incontinence Active 2024-11-22 N/A Incontinence sup plies ordered on 11/22-continue f/u with urology [facility] Unsteady gait Active 2024-12-10 N/A TECHNICAL TRANSLATOR reports that the patient has unsteady gait [...] N/A -Patient has gurwinder ly VNA and TECHNICAL TRANSLATOR services. She lives alone in a third floor apartment with close family support from daughter. Daughter requesting increase in TECHNICAL TRANSLATOR hoursPCA- Sully -Advised to reach out to [facility] cc [place] currently approximate 30hours per [...] NoDo you have a Durable Power of Nozzleman for Healthcare, or Healthcare Proxy Or Guardianship? 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 [...] (do not use for phone, instead use 09633-09) [facility] Paroxysmal atrial fibrillationChronic obstructive pulmonary disease, unspecifiedAthscl heart disease of nenana coronary artery w/o ang pctrsType 2 diabetes [...] (do not use for phone, instead use 41028-32) [facility] New patient,40-59min ; chronic exacerbation, 2 stable chronic or 1 acute illness add add modifier 95 for video (do not use for phone, instead use 57815-63) [facility] New patient,40-59min ; chronic exacerbation, 2 stable chronic or 1 acute illness add add modifier 95 for video (do not use for phone, instead use 57894-02) [facility] New patient,40-59min ; chronic exacerbation, 2 stable chronic or 1 acute illness add add modifier 95 for video (do not use for phone, instead use 85820-86) [facility] New patient,40-59min ; chronic exacerbation, 2 stable chronic or 1 acute illness add add modifier 95 for video (do not use for phone, instead use 69236-35) [facility] New patient,40-59min ; chronic exacerbation, 2 stable chronic or 1 acute illness add add modifier 95 for video (do not use for phone, instead use 57085-96) [facility] ([place] 08[place] New patient,40-59min ; chronic exacerbation, 2 stable chronic or 1 acute illness add add modifier 95 for video (do not use for phone, instead use 45266-99) [facility] Estab. patient 20-29min; 1 stable chronic or 2 minor; add add modifier 95 for video, modifier 93 for phone [facility]2022 Pneumonia, unspecified organismSepsis, unspecified organism Estab. patient 20-29min; 1 stable chronic or 2 minor; add add modifier 95 for video, modifier 93 for phone [facility] Estab. patient 20-29min; 1 stable chronic or 2 minor; add add modifier 95 for video, modifier 93 for phone [facility] Estab. patient 20-29min; 1 stable chronic or 2 minor; add add modifier 95 for video, modifier 93 for phone [facility] Estab. patient 20-29min; 1 stable chronic or 2 minor; add add modifier 95 for video, modifier 93 for phone [facility] Estab. patient 20-29min; 1 stable chronic or 2 minor; add add modifier 95 for video, modifier 93 for phone [facility] Estab. patient 30-39min; chronic exacerbation, 2 stable chronic or 1 acute illness add add modifier 95 for video, (do not use for phone, instead use 92891-02) [facility] Paroxysmal atrial fibrillati onOther thrombophiliaHypertensive heart disease with heart failureMorbid (severe) obesity due to excess caloriesSecondary hyperaldosteronismChronic obstructive pulmonary disease, unspecifiedHeart failure, unspecifiedMajor depressive disorder, single episode, in partial remissionType 2 diabetes mellitus with other specified complicationHypothyroidism, unspecifiedHyperlipidemia, unspecifiedAthscl heart disease of nenana coronary artery w/o ang pctrsAnemia in other chronic diseases classified elsewhereGeneralized anxiety disorderBody mass index (BMI) 40.0-44.9, adultPrsnl hx of TIA (TIA), and cereb infrc w/o resid deficitsOther problems related to medical facilities and other health care Estab. patient 30-39min; chronic exacerbation, 2 stable chronic or 1 acute illness add add modifier 95 for video, (do not use for phone, instead use 99042-65) [facility] Estab. patient 30-39min; chronic exacerbation, 2 stable chronic or 1 acute illness add add modifier 95 for video, (do not use for phone, instead use 85369-51) [facility] Estab. patient 30-39min; chronic exacerbation, 2 stable chronic or 1 acute illness add add modifier 95 for video, (do not use for phone, instead use 68178-29) [facility] Estab. patient 30-39min; chronic exacerbation, 2 stable chronic or 1 acute illness add add modifier 95 for video, (do not use for phone, instead use 06637-93) [facility] Estab. patient 30-39min; chronic exacerbation, 2 stable chronic or 1 acute illness add add modifier 95 for video, (do not use for phone, instead use 27106-78) [facility] Estab. patient 30-39min; chronic exacerbation, 2 stable chronic or 1 acute illness add add modifier 95 for video, (do not use for phone, instead use 79077-10) [facility] Estab. patient 30-39min; chronic exacerbation, 2 stable chronic or 1 acute illness add add modifier 95 for video, (do not use for phone, instead use 91003-40) [facility] Estab. patient 30-39min; chronic exacerbation, 2 stable chronic or 1 acute illness add add modifier 95 for video, (do not use for phone, instead use 97494-63) [facility] Estab. patient 30-39min; chronic exacerbation, 2 stable chronic or 1 acute illness add add modifier 95 for video, (do not use for phone, instead use 38254-48) [facility] Estab. patient 30-39min; chronic exacerbation, 2 stable chronic or 1 acute illness add add modifier 95 for video, (do not use for phone, instead use 98586-42) [facility] Estab. patient 10-29min; 1 minor problem; add add modifier 95 for video, modifier 93 for phone [facility] Heart failure, unspecifiedSe condary hyperaldosteronismOther problems related to medical facilities and other health care Estab. patient 10-29min; 1 minor problem; add add modifier 95 for video, modifier 93 for phone [facility] Chronic obstructive pulmonar y disease, unspecifiedHypertensive heart disease with heart failureHeart failure, unspecified Estab. patient 10-29min; 1 minor problem; add add modifier 95 for video, modifier 93 for phone [facility] Acute respiratory failure wi th hypoxiaChronic obstructive pulmonary disease, unspecifiedPneumonia, unspecified organismUnspecified urinary incontinenceOther problems related to medical facilities and other health care Estab. patient 10-29min; 1 minor problem; add add modifier 95 for video, modifier 93 for phone [facility] Estab. patient 10-29min; 1 minor problem; add add modifier 95 for video, modifier 93 for phone [facility] Estab. patient 10-29min; 1 minor problem; add add modifier 95 for video, modifier 93 for phone [facility] Estab. patient 10-29min; 1 minor problem; add add modifier 95 for video, modifier 93 for phone [facility]24 Acute respiratory failure wi th hypoxiaPneumonia, unspecified organismUnsteadiness on feetOther problems related to medical facilities and other health care Estab. patient 10-29min; 1 minor problem; add add modifier 95 for video, modifier 93 for phone [facility]2025 Heart failure, unspecifiedSe condary hyperaldosteronismChronic obstructive pulmonary disease, unspecified RN, CN or CP time with patient by phone; use with 1111F, BP, A1c or other CPTII codes [facility]2025 Encounter for other specifie d aftercare RN, CN or CP time with patient by phone; use with 1111F, BP, A1c or other CPTII codes [facility]18[place] Estab. patient 10-29min; 1 minor problem; add add modifier 95 for video, modifier 93 for phone [facility]/2025 Urinary tract infection, sit e not specifiedOther problems related to medical facilities and other health care Estab. patient 10-29min; 1 minor problem; add add modifier 95 for video, modifier 93 for phone [facility] 02/[place]/20[place] Estab. patient 10-29min; 1 minor problem; add add modifier 95 for video, modifier 93 for phone [facility] 02/[place]/20[place] Estab. patient 10-29min; 1 minor problem; add add modifier 95 for video, modifier 93 for phone [facility] 02/27/2025 Estab. patient 10-29min; 1 minor problem; add add modifier 95 for video, modifier 93 for phone [facility]/2025 Polyosteoarthritis, unspecifiedParoxysmal atrial fibrillationOther thrombophiliaChronic obstructive pulmonary disease, unspecifiedAthscl heart disease of nenana coronary artery w/o ang pctrsType 2 diabetes [...] (do not use for phone, instead use 09935-91) [id number] 2022-08-25 No Data Available No Data Availa [...] 95 for video, modifier 93 for phone 12925 2022-10-03 No Data Available No Data Availa [...] (do not use for phone, instead use 13307-82) 33149 2024-05-28 No Data Available No Data Availa [...] 95 for video, modifier 93 for phone 25676 2024-09-10 No Data Available No Data Availa ble Estab. patient 10-29min; 1 minor problem; add add modifier 95 for video, modifier 93 for phone 06990 2024-10-10 No Data Available No Data Availa [...] 95 for video, modifier 93 for phone 76118 2024-12-10 No Data Available No Data Availa ble Estab. patient 10-29min; 1 minor problem; add add modifier 95 for video, modifier 93 for phone 32977 2025-01-28 No Data Available No Data Availa ble RN, CN or CP time with patient by phone; use with 1111F, BP, A1c or other CPTII codes 57412 2025-02-18 No Data Available No Data Avai [...] 95 for video, modifier 93 for phone 38675 2025-04-02 No Data Available No Data Availa [...] obstructive pulmonary disease)Atherosclerosis of coronary artery of nenana heartType 2 diabetes mellitus with hyperlipidemiaMajor depressive disorder in partial remissionHypothyroidismMorbid obesity due to excess caloriesHistory of CVA (cerebrovascular accident)Anemia in chronic illness 2022-10-03 07:05:20 Patient Education to avoid future hospitalization: Call [facility] if symptoms of illness develop.Sepsis due to pneumonia 2024-05-28 07:45:46 paroxysmal atrial fi brillation and Hypercoagulability due to atrial fibrillationCOPD (chronic obstructive pulmonary disease)Atherosclerosis of coronary artery of nenana heartType 2 diabetes mellitus with hyperlipidemiaMajor depressive [...] obstructive pulmonary disease)Atherosclerosis of coronary artery of nenana heartType 2 diabetes mellitus with hyperlipidemia; Type [...] lantus, metformin, trulicty a1c 7.7, [facility] simvastatin and mtr lipids fu w endocrinecont on sertralinept denies symptoms currentlycont to [facility] fcont clonazepam for anxiety/insomnialevothyroxinefu w [...] may arise 20/02.HEART FAILURE CONTINGENCY PLANLast updated: 05/29/2024[facility] to call for the following symptoms: [...] feeling wellReport consistent blood pressures readings >140/902/06/24: TECHNICAL TRANSLATOR reports that in the last couple of days the patient's toes have been pink and sensitive to touch, denies uncontrolled pain to touch. She has an appointment with the family dinner service specialist on monday for further evaluation. 2024-10-10 06:15:41 Estab. patient 10-29 min; 1 minor problem; add add modifier 95 for video, modifier 93 for phoneContinue to see PCP. [facility] or disease education needs that may arise 20/02.advair, fluticasonefu w pulmonary3: Patient denies dyspnea or any other concerns.Encourage low sodium diet. Encouraged daily blood pressure checks and tracking. Instructed patient to notify CB or PCP if blood pressure >140/90 or <90/50.HEART FAILURE CONTINGENCY PLANLast updated: 05/29/2024[facility] to call for the following symptoms: [...] the patient is home with family and TECHNICAL TRANSLATOR/VNA care. The patient is currently has a soft diet and increase weakness post hospitalization. Medication reconciled with hospital records, unable to confirm with VNAHEART FAILURE CONTINGENCY PLANLast updated: 05/29/2024[facility] to call for the following symptoms: BP <100/60 / BP >180/100 / Edema/ Exertional dyspnea/ Weight gain or lossPlanned intervention: Increase furosemide (Lasix) to 60 mg for 3 days/ Wrap legs with Mohan wrap/ Put on compression stockings/ Eat lower sodium foods/ Take medication every single dayCOPD CONTINGENCY PLANLast updated: 11/22/2024[facility] to call for the following symptoms: [...] or disease education needs that may arise 20/02.TECHNICAL TRANSLATOR reports that the patient has unsteady gait with walking, requires assistance during ambulation. Hx of falls.11/07/24: Hospitalization 10/21-10/21 for acute hypoxic respiratory failure secondary to pneumonia. Patient presented to cough and shortness of breath. The patient was discharged to a STR. In addition, the patient had ER visit 11/05 for aspiration pneumonia. At this time, the patient is home with family and TECHNICAL TRANSLATOR/VNA care. The patient is currently has a soft diet and increase weakness post hospitalization. Medication reconciled with hospital records, unable to confirm with VNA12/10/24: Cg reports that the patient does not have any acute symptoms, she is 'stable'. She is aware that the patient will continue to steadily decline.HEART FAILURE CONTINGENCY PLANLast updated: 05/29/2024[facility] to call for the following symptoms: BP <100/60 / BP >180/100 / Edema/ Exertional dyspnea/ Weight gain or lossPlanned intervention: Increase furosemide (Lasix) to 60 mg for 3 days/ Wrap legs with Mohan wrap/ Put on compression stockings/ Eat lower sodium foods/ Take medication every single dayCOPD CONTINGENCY PLANLast updated: 11/22/2024[facility] to call for the following symptoms: Exertional dyspnea/ Increased cough / WheezingPlanned intervention: Levofloxacin 500mg daily x 5 daysFALL CONTINGENCY PLANMember to call for the following symptoms: Fall / Pre-syncope/ Refusing to use cane / WeaknessPlanned intervention: Order x-ray at [facility] or local hospital Assess for change [...] feeling wellReport consistent blood pressures readings >140/902/06/24: TECHNICAL TRANSLATOR reports that in the last couple of days the patient's toes have been pink and sensitive to touch, denies uncontrolled pain to touch. She has an appointment with the family dinner service specialist on monday for further evaluation.01/28/25: Patient denies BLE edema or dyspnea, denies any acute concerns.advair, fluticasonefu w pulmonary01/28/25: Patient denies dyspnea or any other concerns.HEART FAILURE CONTINGENCY PLANLast updated: 05/29/2024[facility] to call for the following symptoms: BP <100/60 / BP >180/100 / Edema/ Exertional dyspnea/ Weight gain or lossPlanned intervention: Increase furosemide (Lasix) to 60 mg for 3 days/ Wrap legs with Mohan wrap/ Put on compression stockings/ Eat lower sodium foods/ Take medication every single dayCOPD CONTINGENCY PLANLast updated: 11/22/2024[facility] to call for the following symptoms: Exertional dyspnea/ Increased cough / WheezingPlanned intervention: Levofloxacin 500mg daily x 5 daysFALL CONTINGENCY PLANMember to call for the following symptoms: Fall / Pre-syncope/ Refusing to use cane / WeaknessPlanned intervention: Order x-ray at [facility] or local hospital Assess for change [...] for phoneContinue to see PCP. Follow-up with [facility] as needed for any acute or disease education needs that may arise.02/15-02/17 hospitalization due to a fall. Dx with a urinary tract infection and treated with an antibiotic. Cg denies any current symptoms or concerns.UTI CONTINGENCY PLANLast updated: 02/27/2025[facility] to call for the following symptoms: [...] cane / WeaknessPlanned intervention: Order x-ray at [facility] or local hospital Assess for change [...] with PCP/specialists-continue rx'd medications-report changes in chronic pwslizlycsnxoooulb-Rqxnok-sfleazhp to f/u with PCP/specialists-continue rx'd medications-report changes [...] feeling wellReport consistent blood pressures readings >140/902/06/24: TECHNICAL TRANSLATOR reports that in the last couple of days the patient's toes have been pink and sensitive to touch, denies uncontrolled pain to touch. She has an appointment with the family dinner service specialist on monday for further evaluation.01/28/25: Patient denies [...] supplies ordered on 11/22-[facility] the patient has unsteady gait with walking, requires assistance during ambulation. Hx of falls.-Patient has daily VNA and TECHNICAL TRANSLATOR services. She lives alone in a third floor apartment with close family support from daughter. Daughter requesting increase in TECHNICAL TRANSLATOR hoursPCAJigna Virk -Advised to reach out to [facility] cc Virgil currently approximate 30hours per [...] NoDo you have a Durable Power of Nozzleman for Healthcare, or Healthcare Proxy Or Guardianship? [...] discussion: (Who was present, : member and ELC-Jajbik-echzcctd to f/u with PCP/specialists-continue rx'd medications-report changes [...] NoDo you have a Durable Power of Nozzleman for Healthcare, or Healthcare Proxy Or Guardianship? [...] discussion: (Who was present, : member and TECHNICAL TRANSLATOR 2025-04-02 Functional Assessmen tCognition Status: Oriented to [...]
== END 2025-06-13 15:45 | disposition home or self-care (01) ==
LOC: HO.HUSH 14:40
PROVIDERS: Visit Provider Urology
DX: N39.0 Urinary tract infection, site not specified (principal); N28.1 Cyst of kidney, acquired
CPT/HCPCS: 99204

== ENCOUNTER → 2025-06-13 | Outpatient (BNVA) | payer OTHER, SELFPAY | PROVIDERS: Visit Provider Nurse Practitioner Family | DX: Z01.810 Encounter for preprocedural cardiovascular examination (principal); N39.46 Mixed incontinence; R35.0 Frequency of micturition; N39.0 Urinary tract infection, site not specified; N28.1 Cyst of kidney, acquired; I48.0 Paroxysmal atrial fibrillation; I44.0 Atrioventricular block, first degree; I45.9 Conduction disorder, unspecified; I11.0 Hypertensive heart disease with heart failure; I50.33 Acute on chronic diastolic (congestive) heart failure; I65.23 Occlusion and stenosis of bilateral carotid arteries; E78.00 Pure hypercholesterolemia, unspecified; Z95.828 Presence of other vascular implants and grafts; Z79.01 Long term (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 | CPT/HCPCS: 51798; 99202; 99212 ==

== ENCOUNTER 2025-06-26 10:38 | Inpatient (IN) | payer OTHER, SELFPAY ==
--- OUTSIDE RECORDS SUMMARY | 2024-11-22 08:30 | XMS_ITS ---
Author Organization [facility] Address [address] [place] [phone] Care Team Providers Care Laboratory Apparatus Glass Grinder Name Role Phone Valeri Lerner Primary Care Provider UnavailKeenan Dalton Unavailable [phone] Archuleta Encounters Encounter Location Date Provider Diagnosis [address] [phone] 11/22/2024 Keenan Dyer Plan Of Treatment Next Appt Details Provider Name:Keenan Dyer , 08/15/2025 12:45:00 PM, [address] [place] [address], [phone], Progress Notes * Anna WOODCoraB:[birth year] (89 yo F)Acc No.[id number]:11/22/2024 Progress Note Patient: Nikky SINGH Provider: Gabbi Dyer DPM :1935 A ge:89 Y S ex:Female Date:11/22/2024 Address:[address] [place] [phone] Pcp:Valeri Lerner Subjective: * Chief Complaints: * [address] Archuleta. * Medical History: Objective: * Vitals: Assessment: Plan: * Treatment: * Images: * The named appointment provid er may or may not be the originator of this progress note, and it is not deemed complete until electronically signed by the appointment provider. Sign off status: Pending * Provider: Gabbi Dyer DPM Date: 0 11/22/2024 Generated for Tray López on: 08/26/2024 11:44 AM EST
--- OUTSIDE RECORDS SUMMARY | 2024-12-13 07:45 | XMS_ITS ---
Author Organization [facility] Address [address] [place] [phone] Care Team Providers Care Lamp Replacer Name Role Phone Valeri Lerner Primary Care Provider UnavailKeenan Dalton Unavailable [phone] Archuleta Encounters Encounter Location Date Provider Diagnosis [address] [address] 12/13/2024 Keenan Dyer Plan Of Treatment Next Appt Details Provider Name:Keenan Dyer , 08/15/2025 12:45:00 PM, [address] [place] [address], [address], Progress Notes * Anna WOODCoraB:[birth year] (89 yo F)Acc No.[id number]:12/13/2024 Progress Note Patient: Nikky SINGH Provider: Gabbi Dyer DPM :1935 A ge:89 Y S ex:Female Date:12/13/2024 Address:[address] [place] [phone] Pcp:Valeri Lerner Subjective: * Chief Complaints: * [...] 0 12/13/2024 Generated for Tray López on: 08/26/2024 11:43 AM EST
--- NOTE | ~2025-06-26 | CT_ITS ---
CLINICAL HISTORY: L flank pain CT abdomen and pelvis without contrast Comparison: CT/SR - CT ABDOMEN PELVIS COLONOGRAPHY WITHOUT IV CONTRAST - 01/06/25 10:[address]/SR - CT ABDOMEN PELVIS WO IV CON - 09/16/24 13:50 EST Findings: No hydronephrosis. Right nephrolithiasis measures 2 mm. No left nephrolithiasis. Bilateral renal cysts. No bladder stone. Mild wall thickening of the bladder. No consolidation at the lung bases. Small bilateral pleural effusions. Cholelithiasis. No definitive gallbladder wall thickening or pericholecystic fluid; there is motion. Pancreatic lipomatosis. Focus of air in the lower uterine segment, likely in the endometrial canal, also present on the prior study. Thickened endometrium, measuring 1.4 cm, previously measuring 1.7 cm. The other solid organs are normal. No bowel wall thickening or dilation. A normal appendix is identified. Colonic diverticulosis. No aneurysm. Moderate calcified atherosclerotic disease. Infrarenal inferior vena cava filter. No lymphadenopathy. No ascites. No acute fracture. Impression: [No urinary tract obstruction. Mild wall thickening of the bladder. Correlate with urinalysis to exclude cystitis. Small bilateral pleural effusions. Thickening of the endometrium. Follow up with gynecology. This document has been electronically signed by: Crystal Bullock MD on 06/26/2025 13:34:51
--- NOTE | ~2025-06-26 | XR_ITS ---
CLINICAL HISTORY: sob, hypoxia Chest Radiograph Comparison: CT/SR - ABDOMEN ABD_PEL_WITHOUT (ADULT) - 06/26/25 12:02 EST CR - XR CHEST 1V - 05/28/25 00:08 EDT CR - XR CHEST 1V - 05/24/25 13:10 EDT Findings: No cardiomegaly. Normal mediastinal contours. No pneumothorax. Question mild interstitial prominence. Trace bilateral pleural effusion seen on CT are not well seen on chest radiograph. No acute findings in the upper abdomen. No acute fracture. Impression: Suspect mild pulmonary edema. This document has been electronically signed by: Crystal Bullock MD on 06/26/2025 16:16:24
[2025-06-26 10:49] VITALS: BP 178/90; BP 194/80; PULSE 64; RESP 14; TEMP 36.9; O2SAT 92; O2SAT 94; BMI 44.3
[2025-06-26 10:56] VITALS: BP 194/80; RESP 14; TEMP 36.9; O2SAT 92
--- NOTE | 2025-06-26 10:58 | ECG_ITS ---
Test Reason : DIZZINESS Blood Pressure : */* mmHG Vent. Rate : 62 BPM Atrial Rate : 248 BPM P-R Int : * ms QRS Dur : 80 ms QT Int : 414 ms P-R-T Axes : 80 63 82 degrees QTcB Int : 420 ms Atrial flutter with 4:1 A-V conduction Nonspecific ST and T wave abnormality Abnormal ECG When compared with ECG of 25-May-2025 22:05, Rate controlled atrial flutter now Referred By: Generic ED Physician Electronically Signed By: Jon Blancas
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
[2025-06-26 11:21] LABS: MANUAL DIFF FLAG NO
[2025-06-26 11:22] LABS: Hematocrit 36.4 % (37.0-47.0); Hemoglobin 11.8 g/dl (12.0-16.0); Imm Gran Abs Auto 0.02 X10*3/uL (0.00-0.03); Imm Gran Pct Auto 0.2 % (0.0-0.4); Lymphocytes Absolute Auto 1.6 X10*3/uL (1.2-4.9); Mean Corpuscular HGB Conc 32.4 g/dl (31.0-35.0); Mean Corpuscular Hemoglobin 30.6 pg (27.0-33.0); Mean Corpuscular Volume 94.3 fL (80.0-98.0); NRBC Abs Auto 0.000 X10*3/uL (0.0-0.012); NRBC Pct Auto 0.0 /100WBC (0.0-0.2); Platelet Count 168 X10*3/uL (160-400); Red Blood Count 3.86 X10*6/uL (4.20-5.50); White Blood Count 8.1 X10*3/uL (4.8-10.8)
[2025-06-26 11:40] LABS: COVID-19 Test Negative (Negative); IDNOW Serial# 55D5AD1C; IDNOW Serial# 58CA691E; Influenza B2 Negative (Negative)
--- OUTSIDE RECORDS SUMMARY | 2025-06-26 11:43 | XMS_ITS | Encounter Summary ---
Author Organization [employer] Address [address] [place] [address] [address] [place] [address] Care Team Providers Care Furnace Repairer Helper Name Role Phone Valeri Lerner DO Primary Care Provider [phone] Batsheva Gomez PharmD Unavailable [phone] Encounter Details Date Type Department Care Team (Late st Contact Info) Description 09/23/2022 Abstract [facility] [address] [place], [place] [phone] Valeri Lerner DO [address] [place] [address] Social History Tobacco Use Types Packs/Day Years [...] Description 07/04/2025 1:00 PM EST Office Visit [facility] [address] [place], [place] [phone] Diana Eric MD [address] [place], [place] [phone] documented as of this encounter Visit Diagnoses Not on filedocumented in this encounter Care Teams Furnace Repairer Helper Relationship Specialty Start Date End Date Valeri Lerner DO [address] [place], [place] [phone] PCP - General Family Medicine 07/13/12 Batsheva Gomez PharmD [address] [place], [place] [phone] Pharmacist Internal Medicine 03/07/24 12/19/24 [employer] 12/08/23 documented as of this encounter
--- OUTSIDE RECORDS SUMMARY | 2025-06-26 11:43 | XMS_ITS | Patient Health Record ---
Author Organization [facility] [facility] Address [address] [place] [address] Care Team Providers Care Neuro Psych Sales Specialist Name Role Phone Tyler Garsia Unavailable [phone] Reason For Referral No Information Plan Of Treatment No Information
--- OUTSIDE RECORDS SUMMARY | 2025-06-26 11:43 | XMS_ITS | Encounter Summary ---
Author Organization [employer] Address [address] [facility] [address] [place] [address] Care Team Providers Care Toll Relief Operator Name Role Phone Valeri Lerner DO Primary Care Provider Batsheva Gomez PharmD Unavailable Reason for Visit * Reason Onset Date Comments Nurse Triage 01/18/2024 Encounter Details Date Type Department Care Team (Late st Contact Info) Description 01/18/2024 Telephone [facility] [address] [place], [place] [phone] Valeri Lerner DO [address] [place], [place] [phone] Nurse Triage Social History Tobacco Use Types [...] the past 12 months, has t he [employer], gas, oil or water company threatened to [...] Artemio with [facility] on any medication changes [phone]. Daughter made aware of home care recommendations, [...] accepted this outcome Please contact pt at [phone] documented in this encounter Plan of Treatment Upcoming Encounters Date Type Department Care Team (Late st Contact Info) Description 07/04/2025 1:00 PM EST Office Visit [facility] [address] [place] [phone] Diana Eric MD [address] [place], [place] [phone] documented as of this encounter Visit Diagnoses Not on filedocumented in this encounter Additional Health Concerns Assessment Noted Time PHQ-9 Depression Total Score: 2 08/23/19 24 11:01 AM EST documented as of this encounter Care Teams Toll Relief Operator Relationship Specialty Start Date End Date Valeri Lerner DO [address] [place] [phone] PCP - General Family Medicine 07/13/12 Batsheva Gomez PharmD [address] [place] [phone] Pharmacist Internal Medicine 03/07/24 12/19/24 Lemon 12/08/23 documented as of this encounter
--- OUTSIDE RECORDS SUMMARY | 2025-06-26 11:43 | XMS_ITS | Encounter Summary ---
Author Organization [employer] Address [address] [facility] [address] [place] [address] Care Team Providers Care Diabetes Solutions Specialist Name Role Phone Valeri Lerner DO Primary Care Provider Batsheva Gomez PharmD Unavailable [phone] Reason for Visit * Reason Comments Med Refill Encounter Details Date Type Department Care Team (Late st Contact Info) Description 09/12/2023 Refill [facility] [address] [place] [address] Valeri Lerner DO [address] [place] [address] Generalized anxiety disorder Social History Tobacco Use [...] the past 12 months, has t he [employer], [employer], oil or water [employer] threatened to shut off services in your [...] Description 07/04/2025 1:00 PM EST Office Visit [facility] [address] [place] [phone] Diana Eric MD [address] [place] [address] documented as of this encounter Visit Diagnoses Diagnosis Generalized anxiety disorder documented in this encounter Additional Health Concerns Assessment Noted Time PHQ-9 Depression Total Score: 2 08/23/19 24 11:01 AM EST documented as of this encounter Care Teams [employer] Specialist Relationship Specialty Start Date End Date Valeri Lerner DO [address] [place] [phone] PCP - General Family Medicine 07/13/12 Batsheva Gomez PharmD [address] [place] [address] Pharmacist Internal Medicine 03/07/24 12/19/24 [place] 12/08/23 documented as of this encounter
--- OUTSIDE RECORDS SUMMARY | 2025-06-26 11:43 | XMS_ITS | Clinical Summary ---
Author Organization [employer] Address [address] [place] [address] 7[address] [place] [address] Care Team Providers Care Tumbling Barrel Painter Name Role Phone Valeri Lerner DO Primary Care Provider [phone] Allergies Active Allergy Reactions Criticality Noted Date [...] each 11 023 Active Continuous Blood Gluc Wheelage Clerk (TriplePulseStyle Jason 2 Paradise) device Scan sensor every 8 hours 1 [...] hyperglycemia, with long-term current use of insulin ([facility]) TAKE 1 TABLET BY MOUTH TWICE DAILY [...] IN THE MORNING AND EVENING 90 tablet Active Pentips Generic Pen Ardenvoir 32G X 4 MM misc USE DIRECTED [...] for wheezing. 75 mL 025 2025 Active Multiple Vitamins-Iron (Tab-A-Judith/Iron) tablet TAKE 1 TABLET BY MOUTH EVERY MORNING WITH FOOD 90 tablet 3 Active cholecalciferol VITAMIN D (Vitamin D-3) 50 MCG (2000 UT) tablet TAKE 1 TABLET BY MOUTH EVERY MORNING 90 tablet 1 Active solifenacin (VESIcare) 10 MG tablet TAKE 1 TABLET BY MOUTH EVERY MORNING DO NOT BREAK, CRUSH, DISSOLVE OR CHEW 30 tablet 11 06/13/20 25 4:09 PM EST Active magnesium oxide (Mag-Ox) 400 MG tabletIndications :Hypomagnesemia TAKE 1 TABLET BY MOUTH EVERY DAY 30 tablet 1 025 Active Alcohol Swabs (Alcohol Prep) 70 % pads USE THREE TO FOUR TIMES DAILY 100 each 11 Active cephalexin (Keflex) 500 MG capsule Take 500 mg by mouth. Active Diclofenac Sodium 1 % gel Apply topically. Active empagliflozin (Jardiance) 10 MG Take 10 mg by mouth. Active metoprolol succinate XL (Toprol-XL) 25 MG 24 hr tablet Active Multiple Vitamin (Multivitamin) tablet TAKE 1 TABLET BY MOUTH EVERY MORNING WITH FOOD Active warfarin (Coumadin) 2 MG tablet TAKE 3 TABLETS (6MG) BY MOUTH EVERY EVENING FOR 3 DAYS Active warfarin (Coumadin) 4 MG tabletIndications :Paroxysmal atrial fibrillation (CMS/HCC) (HCC) TAKE 1 TO 2 TABLETS BY MOUTH ONCE DAILY DIRECTED 60 tablet 2 025 Active Alcohol Swabs (Alcohol Prep) 70 % pads USE THREE TO FOUR TIMES DAILY 100 each 11 024 2024 Discontinued warfarin (Coumadin) 4 MG tabletIndications :Paroxysmal atrial fibrillation (CMS/HCC) (HCC) TAKE 1 TO 2 TABLETS BY MOUTH EVERY DAY DIRECTED 60 tablet 2 06/13/20 25 4:09 PM EST 025 2024 Discontinued(T herapy completed) Active Problems Problem Noted Date Diagnosed Date [...] from more structured support, daughter working multimedia services coordinator, she and brother are primary care givers, nephew was assisting with medications and home care but no longer working as therapy coordinator, 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 Carpenter Assistant Installer list provided for daughter, Referral to vna Presence of IVC filter 11/21/2023 Thickened endometrium 11/21/2023 Chronic gastroesophageal reflux disease 08/23/19 24 Cerebral microvascular disease 08/23/2023 Obstructive sleep apnea [...] 015 Overview (01/26/2024): Seen by Dr Bradshaw, [facility] cards. Assessment & Plan (01/26/2024 2:51 PM [...] one of 9 on admission to [facility]. No change in meds. FU w PCP [...] Acute on chronic respiratory failure with hypoxemia (CMS/HCC) 11/21/2023 12/26/2023 Contusion of right shoulder 11/21/2023 12/26/2023 Current use of anticoagulant therapy 11/21/2023 12/26/2023 Assessment & Plan (11/25/2023 1:23 PM EDT): No visible eccymosis, daughter and pt report compliance with oral medications Fall 11/21/2023 12/26/2023 Forehead contusion 11/21/2023 Gastroenteritis 11/21/2023 12/26/2023 Head injury 11/21/2023 12/26/2023 Hypoxia 11/21/2023 12/26/2023 Obesity due to excess calories 11/21/2023 12/26/2023 Sepsis (CMS/HCC) 11/21/2023 12/26/2023 Urgency incontinence 11/21/2023 024 UTI (urinary tract infection) 11/21/2023 12/26/2023 Weakness 11/21/2023 12/26/2023 Well woman exam 11/21/2023 12/26/2023 BMI 40.0-44.9, adult ([facility]) 08/23/2023 11/25/2024 Arthritis of right shoulder region 08/08/2022 08/23/2023 Assessment & Plan (08/08/2022 1:07 PM EST): Worsened after She fell HAM FACER on 06/26 Continue PT at home. Tylenol [...] Encounters Date Type Department Care Team Description 06/23/2025 Anticoagulation - Warfarin Visit [facility] [address] [place] [address] Michaela Rollins, RN Paroxysmal atrial fibrillation ([facility]) ([facility]) 06/22/2025 Refill [facility] [address] [place] [address] Valeri Lerner DO Paroxysmal atrial fibrillation (CMS/HCC) (HCC) 06/18/2025 Anticoagulation - Warfarin Visit [facility] [address] [place] [phone] Michaela Rollins RN Paroxysmal atrial fibrillation (CMS/HCC) (HCC) 06/13/[address] [address] Valeri Lerner DO [facility] services 06/13/2025 Patient Outreach [address] [address] Valeri Lerner DO Transition Of Care (Tcm) (HDF scheduled) 06/13/[address] [address] Valeri Lerner DO Hospital Follow-up 06/09/2025 Patient Outreach [facility] [address], [place] [phone] Valeri Lerner DO Pre-visit Planning (HDF scheduled ) 06/06/2025 11:30 AM EST Office Visit [facility] [address] [place], [place] [phone] Tod, Ai, OD 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 (HCC) (Primary Dx); Pseudophakia of both eyes; Presbyopia of both eyes 06/06/[address] [address] Valeri Lerner DO INR tracking 06/06/2025 Travel 05/30/[address] [address] Valeri Lerner DO 05/28/2025 Patient Outreach [address] [address] Valeri Lerner DO Transition Of Care (Tcm) (HDF scheduled and SDOH screening completed on 02/17/25) 05/28/2025 Orders Only GENERIC EXTERNAL DATA DEPARTMENT Provider, Generic External Data 05/27/2025 Orders Only GENERIC EXTERNAL DATA DEPARTMENT Provider, Generic External Data 05/23/2025 Telephone [facility] [address], [place] [address] Valeri Lerner DO FYI 05/21/2025 Telephone [facility] [address], [place] [address] Valeri Lerner DO FYI 05/13/2025 Anticoagulation - Warfarin Visit [facility] [address], [place] [address] Michaela Rollins RN Paroxysmal atrial fibrillation ([facility]) ([facility]) 05/13/2025 Telephone [facility] [address], [place] [address] Valeri Lerner DO 05/06/2025 Anticoagulation - Warfarin Visit [facility] [address], [place] [address] Michaela Rollins RN Paroxysmal atrial fibrillation ([facility]) ([facility]) 05/01/2025 Refill [facility] [address], [place] [address] [facility], EXTERMINATOR HELPER Hypomagnesemia 04/24/2025 Refill [facility] [address], [place] [address] Valeri Lerner, 04/18/2025 Telephone [facility] [address], [place] [address] Valeri Lerner, 04/18/2025 Telephone [facility] [address], [place] [address] Valeri Lerner, telephone call 04/15/2025 Anticoagulation - Warfarin Visit [facility] [address], [place] [address] Michaela Rollins RN Paroxysmal atrial fibrillation ([facility]) 04/15/2025 Telephone [facility] [address], [place] [address] Valeri Lerner, DO Call back request 04/14/2025 Telephone [facility] [address], [place] [address] Valeri Lerner, DO call back request 04/08/2025 Refill [facility] [address], [place] [address] Valeri Lerner DO 04/06/2025 Refill [facility] [address] [place] [address] Valeri Lerner DO from Last 3 Months [...] your housing situation today? I have florence sing 02/17/[address] you li [...] Description 07/04/2025 1:00 PM EST Office Visit [facility] [address] [place] [address] Diana Eric MD [address] [place] [address] Health Maintenance Due Date Last Done Comments [...] Screening 02/17/2026 02/17/2025 Eye Exam 06/06/2026 06/06/2025, 01/2025, 06/06/2025, Additional history exists Tobacco Screening 06/20/2026 06/20/2025 DTaP/Tdap/Td Vaccines (3 - Td or Tdap) 12/25/2033 12/26/2023, 08/06/2013, 07/23/2003 Pneumococcal Vaccine: 50+ Years Completed 12/26/2023, 07/02/2015, 11/04/2013 RSV Patients and Patients Aged 60 years or older Completed 03/07/2024 Zoster Vaccines Completed 03/07/2024, 110 02/2021, 07/02/2015 Hepatitis B Vaccines Completed 06/14/2024, [...] 5 1:53 PM EDT) No Batsheva Gomez, Frankie Help patients manage their type 2 diabetes Care Plan Help patients manage their type 2 diabetes No Michaela Rollins, SHIRLEY Weekly blood pressure task Care Plan Weekly blood pressure task No Michaela Rollins, RN Help patients manage their type 2 diabetes Care Plan Help patients manage their type 2 diabetes No Michaela Rollins, SHIRLEY Patient has chronic kidney disease Care Plan Patient has chronic kidney disease No Michaela Rollins, SHIRLEY Weekly blood pressure task Care Plan Weekly blood pressure task No Michaela Rollins, RN Patient has chronic kidney disease Care Plan Patient has chronic kidney disease No Michaela Rollins, SHIRLEY Weekly blood pressure [...] Care Plan Weekly blood pressure task No Edis Cornejoie Patient has chronic kidney disease Care Plan Patient has chronic kidney disease No ChantalJoanne Patient has chronic kidney disease Care Plan Patient has chronic kidney disease No Joanne Cornejo Weekly blood pressure task Care Plan Weekly blood pressure task No Michaela Rollins RN Weekly blood pressure task Care Plan Weekly blood pressure task No Michaela Rollins RN Patient has chronic kidney disease Care Plan Patient has chronic kidney disease No Michaela Rollins, RN Patient has chronic kidney disease Care Plan Patient has chronic kidney disease No Michaela Rollins RN Weekly blood pressure task Care Plan Weekly blood pressure task No Colon Morgan, Puja Weekly blood pressure task Care Plan Weekly blood pressure task No Colon Morgan, Puja Patient has chronic kidney disease Care Plan Patient has chronic kidney disease No Colon Morgan, Puja Patient has chronic kidney disease Care Plan Patient has chronic kidney disease No Colon Morgan, Puja Weekly blood pressure task Care Plan Weekly blood pressure task No Michaela Rollins RN Weekly blood pressure task Care Plan Weekly blood pressure task No Michaela Rollins, SHIRLEY Patient has chronic kidney disease Care Plan Patient has chronic kidney disease No Michaela Rollins RN Patient has chronic kidney disease Care Plan Patient has chronic kidney disease No Michaela Rollins, SHIRLEY Weekly blood pressure task Care Plan Weekly blood pressure task No Tod, Ai, OD Weekly blood pressure task Care Plan Weekly blood pressure task No Tod, Ai, OD Patient has diabetic eye disease Care Plan Patient has diabetic eye disease No Tod, Ai, OD Patient has diabetic eye disease Care Plan Patient has diabetic eye disease No Tod, Ai, OD Patient has chronic kidney disease Care Plan Patient has chronic kidney disease No Tod, Ai, OD Patient has chronic kidney disease Care Plan Patient has chronic kidney disease No Tod, Ai, OD Weekly blood pressure task Care Plan Weekly blood pressure task No Michaela Rollins, RN Weekly blood pressure task Care Plan Weekly blood pressure task No Michaela Rollins, SHIRLEY Patient has chronic kidney disease Care Plan Patient has chronic kidney disease No Michaela Rollins, RN Patient has chronic kidney disease Care Plan Patient has chronic kidney disease No Michaela Rollins, SHIRLEY Weekly blood pressure task Care Plan Weekly blood pressure task No Michaela Rollins RN Weekly blood pressure task Care Plan Weekly blood pressure task No Michaela Rollins RN Patient has chronic kidney disease Care Plan Patient has chronic kidney disease No Michaela Rollins, RN Patient has chronic kidney disease Care Plan Patient has chronic kidney disease No Michaela Rollins, roof mechanic Procedure Name Priority Date/Time Associated Diagnosis Comments PROTHROMBIN TIME-INR Routine 06/23/2025 PROTHROMBIN TIME-INR Routine 06/18/2025 PROTHROMBIN TIME-INR Routine 06/12/2025 PROTHROMBIN TIME-INR Routine 06/10/2025 PROTHROMBIN TIME-INR Routine 05/28/2025 9:27 AM EDT [...] TIME-INR Routine 05/06/2025 PROTHROMBIN TIME-INR Routine 04/15/2025 POCT GLYCATED HEMOGLOBIN, TOTAL Routine 03/07/2025 1:53 PM EDT Type 2 diabetes mellitus with hyperglycemia, with long-term current use of insulin ([facility]) AMB REFERRAL TO PODIATRY Routine 01/10/2025 Type 2 diabetes mellitus with hyperglycemia, with long-term current use of insulin (CMS/[facility]) ALBUMIN, RANDOM URINE W/CREATININE Routine 08/31/2023 4:16 PM EST Type 2 diabetes mellitus with hyperglycemia, with long-term current use of insulin (CMS/[facility]) LIPID PANEL, STANDARD Routine 08/31/2023 4:11 PM EST Type 2 diabetes mellitus with hyperglycemia, with long-term current use of insulin (CMS/[facility]) from Last 3 Months or Most Recently Relevant to Health Maintenance Results * (ABNORMAL) Prothrombin Time-INR (06/23/2025) Only the most recent of8 resultswithin the time period is included. INR 2.60(A) 2.00 - 3.00 Protime Blood Venous blood specimen / Unknown 06/23/2025 us Historical Provider LAB BLOOD ORDERABLES Anastasiya l Result * (ABNORMAL) Glucose, Whole Blood (05/28/2025 7:16 AM EDT) Only the most recent of2 resultswithin the time period is included. Glucose, Whole Blood 117(H) 60 - 115 mg/dL [facility] Comment:METER #: [id number] 05/28/2025 7:16 AM EDT 05/28/2025 7:20 AM EDT us Generic External Data Provider LAB BLOOD ORDERAB LES Final Result [facility] [address] [place] [phone] * XR Chest 1 View (05/28/2025 1:13 AM EDT) Anatomical Region Laterality Modality Chest Radiographic Isabella ging 05/28/2025 1:13 AM EDT Narrative 05/28/2025 1:16 AM EDT [address] [address] XRay Report Signed Patient: Nikky Guevara MR#: [id number] : 1935 Acct:[id number] Age/Sex: 89 / F ADM Date: 05/27/25 Loc: HO.ED Attending Dr: Ordering Physician: Angelic Ramirez Date of Service: 05/28/25 Procedure(s): XR chest 1V Accession Number(s): [id number] cc: Angelic Ramirez; [facility] Reason for Exam: cough/fever CLINICAL HISTORY: [...] in OV> 05/28/25113 DD/ 2 TD/TT: 05/28/25112 Healthcare Market Consultant: Procedure Note Donotuseinterpreter, Image - 05/28/[address] [address] XRay Report Signed Patient: Cassie Guevara#: [id number] : 6Acct:[id number] Age/Sex: 89 / FADM Date: 05/27/25 Loc: HO.ED Attending Dr: Ordering Physician: Angelic Ramirez Date of Service: 05/28/25 Procedure(s): XR chest 1V Accession Number(s): [id number] cc: Angelic Ramirez; [facility] Reason for Exam: cough/fever CLINICAL HISTORY: [...] in OV> 05/28/25113 DD/ 2 TD/TT: 05/28/25112 Healthcare Market Consultant: [facility] External Provider IMG XR PROCEDURES Edited Result - Final * Blood Culture (First) (05/27/2025 10:18 PM EDT) Blood Venous blood specimen / Unknown 05/27/2025 10:18 PM EDT 05/27/2025 10:23 PM EDT Comment:Blood Narrative [facility] - 06/02/2025 12:24 AM EST Blood Culture (First) No growth after 5 days. Specimen Source: Blood Generic External Data Provider LAB MICROBIOLOGY - GENERAL ORDERABLES Final Result [facility] [address] [place] [phone] * Blood Culture (Second) (05/27/2025 10:18 PM EDT) Blood Venous blood specimen / Unknown 05/27/2025 10:18 PM EDT 05/27/2025 10:28 PM EDT Comment:Blood Narrative [facility] - 06/02/2025 12:28 AM EST Blood Culture (Second) No growth after 5 days. Specimen Source: Blood Generic External Data Provider LAB MICROBIOLOGY - GENERAL ORDERABLES Final Result Performing Organization Address City/[facility]/ZIP Co de Phone Number [facility] [address] [place] [phone] * Lactic Acid (05/27/2025 10:18 PM EDT) Lactic Acid 0.8 0.5 - 2.0 mmol/L [facility] 05/27/2025 10:1 8 PM EDT 05/27/2025 10:23 PM EDT Generic External Data Provider LAB BLOOD ORDERAB LES Final Result Performing Organization Address [facility]/ZIP Co de Phone Number [facility] [address] [place] [phone] * (ABNORMAL) Urinalysis, Complete, with Reflex to Culture (05/27/2025 6:49 PM EDT) Color Urine Yellow [facility] Appearance Urine Clear [facility] PH 7.0 5.0 - 9.0 [facility] Glucose Urine UA >=1000(A) Negative mg/dL [facility] Urine Blood Negative Negative [facility] Specific [place] - Urine 1.020 1.005 - 1.025 [facility] Urine Protein Negative Neg-Trace mg/dL [facility] Urine Ketones Negative Negative mg/dL [facility] Nitrite Urine Negative Negative [facility] Leukocyte Esterase Urine Moderate (2+)(A) Negative [facility] RBC Urine 0-2 0 - 2 /HPF [facility] Urine WBC 21-50(A) 0 - 5 /HPF [facility] Urine Squamous Epithelial Cell 0-2 0 - 2 /HPF [facility] Urine Bacteria 4+ None Seen [facility] Hyaline Casts, Urine 0-2 0 - 2 /LPF [facility] 05/27/2025 6:49 PM EDT 05/27/2025 6:51 PM EDT Narrative [facility] - 05/27/2025 7:48 PM EDT Urine, Clean Catch us Generic External Data Provider LAB URINE ORDERAB LES Final Result Performing Organization Address [facility] Co de Phone Number [facility] [address] [place] [phone] * Influenza A B2 ID NOW (Crowe) (05/27/2025 6:11 PM EDT) IDNOW SERIAL# [id number] [facility] Influenza A Negative Negative [facility] Influenza B2 Negative Negative [facility] Influenza A B2 Note See Note [facility] Comment:The Crowe ID NOW In [...] GENERAL ORDERABLES Final Result Performing Organization Address [facility]/ZIP Co de Phone Number [facility] [address] [place] [phone] * COVID-19 ID NOW (CROWE) (05/27/2025 6:11 PM EDT) IDCAMELIAW SERIAL# [id number] [facility] COVID-19 TEST Negative Negative [facility] COVID-19 NOTE See Note [facility] Comment: Results are for the identification of SARS-CoV2 RNA. TheSARS-CoV2 RNA is generally detectable in respiratory samplesduring the acute phase of infection. Positive results areindicative of the presence of SARS-CoV-2 RNA; clinicalcorrelation with patient history and other diagnosticinformation is necessary to determine patient infectionstatus. Positive results do not rule out bacterial infectionor co- infection with other viruses.Testing facilities within the [facility] are required to report all positive results [...] LAB MOLECULAR NELSON [employer] ORDERABLES Final Result [facility] [address] [place] [phone] * (ABNORMAL) CBC auto differential (05/27/2025 6:11 PM EDT) White Blood Count 10.8 4.8 - 10.8 X10*3/uL [facility] Red Blood Count 3.95(L) 4.20 - 5.50 X10*6/uL [facility] Hemoglobin 12.2 12.0 - 16.0 g/dl [facility] Hematocrit 38.1 37.0 - 47.0 % [facility] Mean Corpuscular Volume 96.5 80.0 - 98.0 fL [facility] Mean Corpuscular Hemoglobin 30.9 27.0 - 33.0 pg [facility] Mean Corpuscular HGB Conc 32.0 31.0 - 35.0 g/dl [facility] Red Cell Distribution Width 14.6 11.0 - 16.0 % [facility] Platelet Count 179 160 - 400 X10*3/uL [facility] Mean Platelet Volume 11.3 9.4 - 12.3 fL [facility] Neutrophils Percent Auto 78.5(H) 45 - 73 % [facility] Imm Gran Pct Auto 0.4 0.0 - 0.4 % [facility] Lymphocytes Percent Auto 11.9(L) 20 - 40 % [facility] Monocytes Percent Auto 6.0 2 - 11 % [facility] Eosinophils Percent Auto 2.9 0 - 4 % [facility] Basophils Percent Auto 0.3 0 - 2 % [facility] NRBC Pct Auto 0.0 0.0 - 0.2 /100WBC [facility] Neutrophils Absolute Auto 8.4(H) 2.0 - 8.3 x10*3/uL [facility] Imm Gran Abs Auto 0.04(H) 0.00 - 0.03 X10*3/uL [facility] Lymphocytes Absolute Auto 1.3 1.2 - 4.9 X10*3/uL [facility] Monocytes Absolute Auto 0.7 0.1 - 1.2 X10*3/uL [facility] Eosinophils Absolute Auto 0.3 0.0 - 0.4 X10*3/uL [facility] Basophils Absolute Auto 0.0 0.0 - 0.2 X10*3/uL [facility] NRBC Abs Auto 0.000 0.0 - 0.012 X10*3/uL [facility] 05/27/2025 6:11 PM EDT 05/27/2025 6:15 PM EDT us Generic External Data Provider LAB BLOOD ORDERAB LES Final Result [facility] [address] [place] [phone] * (ABNORMAL) Comprehensive Metabolic Panel (05/27/2025 6:11 PM EDT) Sodium 139 135 - 145 mmol/L [facility] Potassium 4.5 3.3 - 5.1 mmol/L [facility] Chloride 98 96 - 108 mmol/L [facility] Carbon Dioxide 34(H) 22 - 29 mmol/L [facility] Anion Gap 12 12 - 20 [facility] Urea Nitrogen (BUN) 38(H) 9 - 16 mg/dL [facility] Creatinine, Serum 1.24 0.5 - 1.4 mg/dL [facility] Creatinine Clr Calc Pharmacy 32.9 [facility] Comment:Provided height and weight: 157.48 cm,94.6 kg.eGFR (calculated from the MDRD study equation) and eCrCl(calculated from the Cockcroft-Gault equation) are based ondifferent parameters and may not yield comparable results.If eCrCl result is absurd, please check patient'sheight/weight. Estimated Glomerular Filt Rate 41 [facility] Comment:Chronic Kidney Disea se: Estimated GFR < 60 mL/min/1.92n3Kvaqaj Kidney Disease: Estimated GFR < 15 mL/min/1.73m2 Glucose 219(H) 60 - 115 mg/dL [facility] Calcium 9.9 8.4 - 10.2 mg/dL [facility] Bilirubin, Total 0.6 0.0 - 1.0 mg/dL [facility] Aspartate Amino Transferase 28 5 - 31 U/L [facility] Alanine Aminotransferase 22 0 - 31 U/L [facility] Total Protein 7.9 6.5 - 8.0 g/dL [facility] Albumin Level 4.0 3.5 - 5.0 g/dL [facility] [facility] Alkaline Phosphatase 122(H) 39 - 117 U/L [facility] 05/27/2025 6:11 PM EDT 05/27/2025 6:15 PM EDT Generic External Data Provider LAB BLOOD ORDERAB LES Final Result Performing Organization Address City/[facility]/ZIP Co de Phone Number [facility] [address] [place] [phone] * Culture, Urine, Routine (05/27/2025 12:00 AM EDT) Urine Urine specimen obtained by clean catch procedure / Unknown 05/27/2025 05/27/2025 Comment:UACC Narrative [facility] - 05/29/2025 10:36 AM EDT Urine Culture Report Result Urine Culture 10,000 to 50,000 cfu/ml Urine Culture Mixed bacterial edilson characteristic of Urine Culture urogenital contamination. Specimen Source: Urine clean catch Generic External Data Provider LAB MICROBIOLOGY - GENERAL ORDERABLES Final Result Performing Organization Address [facility] Co de Phone Number [facility] [address] [place] [phone] * (ABNORMAL) POCT HGB A1C (03/07/2025 1:53 PM EDT) Hemoglobin A1C 7.6(A) 4.0 - 5.7 % QC Media Lot # [id number] Lot# Expiration Date ,364,216 Blood 03/07/2025 1:53 PM EDT [facility] EXTERMINATOR HELPER POINT OF CARE TEST ENTER/EDIT ORDERABLES Final Result * Referral to Podiatry (01/10/2025) Valeri Lerner DO OUTPATIENT REFERRAL ORDERABL ES Final Result * (ABNORMAL) Albumin, Random Urine W/Creatinine (08/31/2023 4:16 PM EST) Creatinine, Urine 25.77 mg/dL [facility] Microalbumin Urine 31.0 mg/L [facility] Microalbum Creatinine Ratio Ur 120.2(H) <30 ug/mg cr [facility] Comment:Albumin/Creatinine R atio Reference Ranges: Normal: < 30 ug/mg creatinine Microalbuminuria: 30 - 300 ug/mg creatinineClinical Albuminuria: > 300 ug/mg creatinine Urine (Urine, Random) 08/31/2023 4:16 PM EST 08/31/2023 5:27 PM EST Valeri Lerner DO LAB URINE ORDERABLES Final R esult [facility] [address] [place] [phone] * (ABNORMAL) Lipid Panel, Standard (08/31/2023 4:11 PM EST) Triglycerides 349(H) <150 mg/dL [facility] Comment:Desirable Triglyceri de: less than 150 mg/dLBorderline High Triglyceride 150-199 mg/dLHigh Triglyceride: 200-499 mg/dLVery High Triglyceride: greater than or equal to 5OO mg/dL Cholesterol 149 <200 mg/dL [facility] Comment:Desirable Cholestero l: less than 200 mg/dLBorderline High Cholesterol: 200-239 mg/dLHigh Cholesterol: greater than 239 mg/dL LDL Cholesterol Calculated 41 <100 mg/dL [facility] Comment:Desirable LDL: less than 100 mg/dLNear Optimal/Above Optimal LDL: 110- 129 mg/dLBorderline High LDL: 130-159 mg/dLHigh LDL: 160-189 mg/dLVery High LDL: greater than or equal to 190 mg/dL HDL Cholesterol 39(L) >40 mg/dL [facility] Comment:Desirable HDL: great er than 40 mg/dL Note: This HDL assay may give artificially low results in patients with liver disease. Blood Venous blood specimen / Unknown 08/31/2023 4:11 PM EST 08/31/2023 5:27 PM EST us Valeri Lerner DO LAB BLOOD ORDERABLES Final R esult [facility] [address] [place] [phone] from Last 3 Months or Most [...] kidney disease 06/13/2025 Weekly blood pressure task 06/18/2025 Weekly blood pressure task 06/18/2025 Patient has chronic kidney disease 06/18/2025 Patient has chronic kidney disease 06/18/2025 Weekly blood pressure task 06/18/2025 Weekly blood pressure task 06/18/2025 Patient has chronic kidney disease 06/18/2025 Patient has chronic kidney disease 06/18/2025 Weekly blood pressure task 06/20/2025 Weekly blood pressure task 06/20/2025 Patient has diabetic eye disease 06/20/2025 Patient has diabetic eye disease 06/20/2025 Patient has chronic kidney disease 06/20/2025 Patient has chronic kidney disease 06/20/2025 Weekly blood pressure task 06/23/2025 Weekly blood pressure task 06/23/2025 Patient has chronic kidney disease 06/23/2025 Patient has chronic kidney disease 06/23/2025 Weekly blood pressure task 06/23/2025 Weekly blood pressure task 06/23/2025 Patient has chronic kidney disease 06/23/2025 Patient has chronic kidney disease 06/23/2025 Insurance [facility] [employer] DUAL COMPLETE Care Teams Tumbling Barrel Painter Relationship Specialty Start Date End Date Valeri Lerner DO [address] [place] [phone] PCP - General Family Medicine 07/13/12 [employer] 12/08/23
--- OUTSIDE RECORDS SUMMARY | 2025-06-26 11:43 | XMS_ITS | Encounter Summary ---
Author Organization [employer] Address [address] [facility] 7t [place] [address] Care Team Providers Care Cigarette Inspector Name Role Phone Valeri Lerner DO Primary Care Provider [phone] Batsheva Gomez PharmD Unavailable [phone] Reason for Visit * Reason Comments Med Refill Encounter Details Date Type Department Care Team (Late st Contact Info) Description 06/20/2023 Refill [facility] [address] [place] [address] Valeri Lerner DO [address] [place] [address] Generalized anxiety disorder Social History Tobacco Use [...] Description 07/04/2025 1:00 PM EST Office Visit [facility] [address] [place] [phone] Diana Eric MD [address] [place] [phone] documented as of this encounter Visit Diagnoses Diagnosis Generalized anxiety disorder documented in this encounter Care Teams Cigarette Inspector Relationship Specialty Start Date End Date Valeri Lerner DO [address] [place] [phone] PCP - General Family Medicine 07/13/12 Batsheva Gomez PharmD [address] [place] [phone] Pharmacist Internal Medicine 03/07/24 12/19/24 [employer] 12/08/23 documented as of this encounter
--- OUTSIDE RECORDS SUMMARY | 2025-06-26 11:43 | XMS_ITS | Encounter Summary ---
Author Organization [employer] Address [address] [place] [address] 7t [place] [address] Care Team Providers Care Scrape Gatherer Name Role Phone Valeri Lerner DO Primary Care Provider + [phone] Reason for Visit * Reason Comments Med Refill Encounter Details Date Type Department Care Team (Late st Contact Info) Description 04/24/2025 Refill [facility] [address] [place], [place] [phone] Valeri Lerner DO [address] [place], [place] [phone] Social History Tobacco Use Types Packs/Day Years [...] 1:00 PM EST Office Visit [facility] [address] [place], [place] [phone] Diana Eric MD [address] [place] [address] documented as of this encounter Goals Goal [...] documented as of this encounter Care Teams Scrape Gatherer Relationship Specialty Start Date End Date Valeri Lerner DO [address] [place] [address] PCP - General Family Medicine 07/13/12 [employer] 12/08/23 documented as of this encounter
--- OUTSIDE RECORDS SUMMARY | 2025-06-26 11:43 | XMS_ITS | Encounter Summary ---
Author Organization [employer] Address [address] [place] [address] 7t [place] [address] Care Team Providers Care Pantograph Machine Set Up Operator Name Role Phone EduardaValeri Primary Care Provider [phone] Batsheva Gomez PharmD Unavailable [phone] Encounter Details Date Type Department Care Team (Late st Contact Info) Description 09/29/2022 Abstract [facility] [address] [place] [address] Sebastian Fierro DDS [address] [place] [address] Social History Tobacco Use Types Packs/Day Years [...] Description 07/04/2025 1:00 PM EST Office Visit [facility] [address] [place], [place] [phone] Diana Eric MD [address] [place], [place] [phone] documented as of this encounter Visit Diagnoses Not on filedocumented in this encounter Care Teams Pantograph Machine Set Up Operator Relationship Specialty Start Date End Date Valeri Lerner DO [address] [place], [place] [phone] PCP - General Family Medicine 07/13/12 Batsheva Gomez PharmD [address] [place], [place] [phone] Pharmacist Internal Medicine 03/07/24 12/19/24 [employer] 12/08/23 documented as of this encounter
--- OUTSIDE RECORDS SUMMARY | 2025-06-26 11:43 | XMS_ITS | Encounter Summary ---
Author Organization [employer] Address [address] [facility] 7t [place] [address] Care Team Providers Care Hand Tapper Name Role Phone Valeri Lerner DO Primary Care Provider [phone] Batsheva Gomez PharmD Unavailable [phone] Reason for Visit * Reason Comments Med Refill Encounter Details Date Type Department Care Team (Late st Contact Info) Description 06/20/[address] [facility] [address] [place] [address] Valeri Lerner DO [address] [place] [address] Social History Tobacco Use Types Packs/Day Years [...] EST Office Visit [facility] [address] [place] [phone] Diana Eric MD [address] [place] [address] documented as of this encounter Visit Diagnoses Not on filedocumented in this encounter Care Teams Hand Tapper Relationship Specialty Start Date End Date Valeri Lerner DO [address] [place] [phone] PCP - General Family Medicine 07/13/12 Batsheva Gomez PharmD [address] [place] [phone] Pharmacist Internal Medicine 03/07/24 12/19/24 [employer] 12/08/23 documented as of this encounter
--- OUTSIDE RECORDS SUMMARY | 2025-06-26 11:43 | XMS_ITS | Encounter Summary ---
Author Organization [employer] Address [address] [facility] 7t [place] [address] Care Team Providers Care Shopping Inspector Name Role Phone Valeri Lerner DO Primary Care Provider [phone] Batsheva Gomez PharmD Unavailable [phone] Encounter Details Date Type Department Care Team (Late st Contact Info) Description 01/26/2024 Telephone [facility] [address] [place], [place] [phone] Valeri Lerner DO [address] [place], [place] [phone] Social History Tobacco Use Types Packs/Day Years [...] Description 07/04/2025 1:00 PM EST Office Visit [facility] [address] [place] [phone] Diana Eric MD [address] [place] [address] documented as of this encounter Visit Diagnoses Not on filedocumented in this encounter Additional Health Concerns Assessment Noted Time PHQ-9 Depression Total Score: 2 08/23/19 24 11:01 AM EST documented as of this encounter Care Teams Shopping Inspector Relationship Specialty Start Date End Date Valeri Lerner DO [address] [place] [phone] PCP - General Family Medicine 07/13/12 Batsheva Gomez PharmD [address] [place] [phone] Pharmacist Internal Medicine 03/07/24 12/19/24 [employer] 12/08/23 documented as of this encounter
--- OUTSIDE RECORDS SUMMARY | 2025-06-26 11:44 | XMS_ITS | Encounter Summary ---
Author Organization [facility] Address [address] [place] [address] Care Team Providers Care Cytology Technologist Name Role Phone Valeri Lerner DO Primary Care Provider [phone]- [phone] Encounter Details Date Type Department Care Team (Latest Contact Info) Description 06/07/2025 Lab Requisition [facility] - Main Lab [address] [facility] [place] [address] Macario Green MD [address] [place] [address] superintendent terminal (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 Social History Tobacco [...] WITH INR Routine 06/07/2025 5:28 AM EST residential (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 documented in this encounter Results * (ABNORMAL) Prothrombin time with INR (06/07/2025 5:28 AM EST) Protime 30.8(H) 10.6 - 13.9 sec LAB COAGULATION METHOD 06/07/2025 7:57 AM EST [facility] INR 2.5 LAB COAGULATION METHOD 06/07/2025 7:57 AM EST [facility] Blood Venous blood specimen / Unknown Venipuncture / Unknown 06/07/2025 5:28 AM EST 06/07/2025 7:22 AM EST us Macario Green MD LAB BLOOD ORDERABLES Final R esult [facility] [address] [place] [address], documented in this encounter Visit Diagnoses Diagnosis superintendent terminal (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 Long-term (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 documented in this encounter Care Teams Cytology Technologist Relationship Specialty Start Date End Date Valeri Lerner DO [address] [place] [address] PCP - General 11/15/14 documented as of this encounter
--- OUTSIDE RECORDS SUMMARY | 2025-06-26 11:44 | XMS_ITS | Encounter Summary ---
Author Organization [facility] Address [id number] [place] [phone] Care Team Providers Care Smoke Chaser Name Role Phone Valeri Lerner DO Primary Care Provider [phone]- [phone] Encounter Details Date Type Department Care Team (Late st Contact Info) Description 11/01/2024 Lab Requisition [facility] - Main Lab [address] [facility] [place] [address] Amrita Polanco MD [address] [place] [phone] Heart failure, unspecified (CMS/HCC V24, CMS/HCC V28) [...] sec LAB COAGULATION METHOD 11/01/2024 9:58 AM [facility] INR 1.2 LAB COAGULATION METHOD 11/01/2024 9:58 AM [facility] Blood Venous blood specimen / Unknown Venipuncture / Unknown 11/01/2024 6:48 AM EDT 11/01/2024 9:35 AM EDT us Amrita Polanco MD LAB BLOOD ORDERABLES Final Resu lt [facility] [address] [place] [address], documented in this encounter Visit Diagnoses Diagnosis Heart failure, unspecified (CMS/HCC V24, CMS/HCC V28) Heart failure, unspecified documented in this encounter Care Teams Smoke Chaser Relationship Specialty Start Date End Date Valeri Lerner DO [address] [place] [address] PCP - General 11/15/14 documented as of this encounter
--- OUTSIDE RECORDS SUMMARY | 2025-06-26 11:44 | XMS_ITS | Encounter Summary ---
Author Organization [employer] Address [address] [place] [address] 7t [place] [address] Care Team Providers Care Saturator Tender Name Role Phone Tia Lernerfer Primary Care Provider [phone] Batsheva Gomez PharmD Unavailable Encounter Details Date Type Department Care Team (Late st Contact Info) Description 08/03/2022 Orders Only [facility] [address] [place], [place] [phone] Valeri Renner LPN Social History Tobacco Use [...] Description 07/04/2025 1:00 PM EST Office Visit [facility] [address] [place], [place] [phone] Diana Eric MD [address] [place], [place] [phone] documented as of this encounter Procedures Procedure [...] EST) Protime 26.1(H) 11.1 - 13.5 sec [facility] 07/14/2023 11:0 7 AM EST 07/14/2023 11:08 AM EST us Generic External Data Provider LAB BLOOD ORDERAB LES Final Result Performing Organization Address City/State/[facility] Co de Phone Number [facility] [address] [place] [address] [phone] * (ABNORMAL) ~PT, ~INR - ANTI [facility] (07/14/2023 11:07 AM EST) Prothrombin Time INR 2.2(H) 0.9 - 1.1 [facility] Comment:METER #: [id number] TERNATIONAL NORMALIZED RATIO (INR) REFERENCE RANGES Reference [...] ORDERAB LES Final Result Performing Organization Address [facility] Co de Phone Number [facility] [address] [place] [address] [phone] * (ABNORMAL) PROTHROMBIN TIME WHOLE BLD POC (06/09/2023 11:34 AM EST) Protime 23.9(H) 11.1 - 13.5 sec [facility] 06/09/2023 11:3 4 AM EST 06/09/2023 11:36 AM EST Generic External Data Provider LAB BLOOD ORDERAB LES Final Result Performing Organization Address [facility] de Phone Number [facility] [address] [place] [address] [phone] * (ABNORMAL) ~PT, ~INR - ANTI [facility] (06/09/2023 11:34 AM EST) Prothrombin Time INR 2.0(H) 0.9 - 1.1 [facility] Comment:METER #: [id number] TERNATIONAL NORMALIZED RATIO (INR) REFERENCE RANGES Reference [...] ORDERAB LES Final Result Performing Organization Address [facility] Co de Phone Number [facility] [address] [place] [address] [phone] * (ABNORMAL) PROTHROMBIN TIME WHOLE BLD POC (03/22/2023 11:23 AM EDT) Protime 38.5(H) 11.1 - 13.5 sec [facility] 03/22/2023 11:2 3 AM EDT 03/22/2023 11:25 AM EDT Generic External Data Provider LAB BLOOD ORDERAB LES Final Result Performing Organization Address [facility] Phone Number [facility] [address] [place] [address] [phone] * (ABNORMAL) ~PT, ~INR - ANTI [facility] (03/22/2023 11:23 AM EDT) Prothrombin Time INR 3.2(H) 0.9 - 1.1 [facility] Comment:METER #: [id number] TERNATIONAL NORMALIZED RATIO (INR) REFERENCE RANGES Reference [...] 3 AM EDT 03/22/2023 11:25 AM EDT [facility] External Provider LAB BLO OD ORDERABLES Final Result Performing Organization Address [facility] Co de Phone Number [facility] [address] [place] [address] [phone] * (ABNORMAL) PROTHROMBIN TIME WHOLE BLD POC (03/01/2023 11:31 AM EDT) Protime 26.8(H) 11.1 - 13.5 sec [facility] 03/01/2023 11:3 1 AM EDT 03/01/2023 11:33 AM EDT Generic External Data Provider LAB BLOOD ORDERAB LES Final Result Performing Organization Address City/[facility]/ZIP Co de Phone Number [facility] [address] [place] [phone] * (ABNORMAL) ~PT, ~INR - ANTI [facility]AG CLINIC (03/01/2023 11:31 AM EDT) Prothrombin Time INR 2.2(H) 0.9 - 1.1 [facility] Comment:METER #: [id number] TERNATIONAL NORMALIZED RATIO (INR) REFERENCE RANGES Reference [...] 1 AM EDT 03/01/2023 11:33 AM EDT [facility] External Provider LAB BLO OD ORDERABLES Final Result Performing Organization Address City/[facility]/ZIP Co de Phone Number [facility] [address] [place] [phone] * (ABNORMAL) PROTHROMBIN TIME WHOLE BLD POC (02/08/2023 11:20 AM EDT) Protime 26.7(H) 11.1 - 13.5 sec [facility] 02/08/2023 11:2 0 AM EDT 02/08/2023 11:22 AM EDT [facility] External Provider LAB BLO OD ORDERABLES Final Result Performing Organization Address [facility] Co de Phone Number [facility] [address] [place] [address] [phone] * (ABNORMAL) ~PT, ~INR - ANTI [facility]AG [facility] (02/08/2023 11:20 AM EDT) Prothrombin Time INR 2.2(H) 0.9 - 1.1 [facility] Comment:METER #: [id number] TERNATIONAL NORMALIZED RATIO (INR) REFERENCE RANGES Reference [...] 0 AM EDT 02/08/2023 11:22 AM EDT [facility] External Provider LAB BLO OD ORDERABLES Final Result Performing Organization Address [facility] de Phone Number [facility] [address] [place] [address] [phone] * (ABNORMAL) PROTHROMBIN TIME WHOLE BLD POC (01/18/2023 2:41 PM EDT) Protime 25.7(H) 11.1 - 13.5 sec [facility] 01/18/2023 2:41 PM EDT 01/18/2023 2:43 PM EDT [facility] External Provider LAB BLO OD ORDERABLES Final Result Performing Organization Address City/[facility] Co de Phone Number [facility] [address] [place] [address] [phone] * (ABNORMAL) ~PT, ~INR - ANTI [facility]AG [facility] (01/18/2023 2:41 PM EDT) Prothrombin Time INR 2.1(H) 0.9 - 1.1 [facility] Comment:METER #: [id number] TERNATIONAL NORMALIZED RATIO (INR) REFERENCE RANGES Reference [...] 2:41 PM EDT 01/18/2023 2:43 PM EDT [facility] External Provider LAB BLO OD ORDERABLES Final Result [facility] [address] [place] [address] [phone] * (ABNORMAL) PROTHROMBIN TIME WHOLE BLD POC (12/30/2022 11:46 AM EDT) Protime 20.5(H) 11.1 - 13.5 sec [facility] 12/30/2022 11:4 6 AM EDT 12/30/2022 11:48 AM EDT [facility] External Provider LAB BLO OD ORDERABLES Final Result [facility] [address] [place] [address] [phone] * (ABNORMAL) ~PT, ~INR - ANTI [facility]AG [facility] (12/30/2022 11:46 AM EDT) Prothrombin Time INR 1.7(H) 0.9 - 1.1 [facility] Comment:METER #: [id number] TERNATIONAL NORMALIZED RATIO (INR) REFERENCE RANGES Reference [...] 6 AM EDT 12/30/2022 11:48 AM EDT [facility] External Provider LAB BLO OD ORDERABLES Final Result Performing Organization Address [facility] de Phone Number [facility] [address] [place] [address] [phone] * (ABNORMAL) PROTHROMBIN TIME WHOLE BLD POC (12/15/2022 10:26 AM EDT) Protime 23.7(H) 11.1 - 13.5 sec [facility] 12/15/2022 10:2 6 AM EDT 12/15/2022 10:28 AM EDT [facility] External Provider LAB BLO OD ORDERABLES Final Result Performing Organization Address [facility] de Phone Number [facility] [address] [place] [address] [phone] * (ABNORMAL) ~PT, ~INR - ANTI [facility]AG [facility]IN[facility] (12/15/2022 10:26 AM EDT) Prothrombin Time INR 2.0(H) 0.9 - 1.1 [facility] Comment:METER #: [id number] TERNATIONAL NORMALIZED RATIO (INR) REFERENCE RANGES Reference [...] 6 AM EDT 12/15/2022 10:28 AM EDT [facility] External Provider LAB BLO OD ORDERABLES Final Result Performing Organization Address City/[facility] Co de Phone Number [facility] [address] [place] [address] [phone] * (ABNORMAL) PROTHROMBIN TIME WHOLE BLD POC (11/30/2022 11:01 AM EDT) Protime 21.3(H) 11.1 - 13.5 sec [facility] 11/30/2022 11:0 1 AM EDT 11/30/2022 11:04 AM EDT [facility] External Provider LAB BLO OD ORDERABLES Final Result Performing Organization Address [facility] de Phone Number [facility] [address] [place] [address] [phone] * (ABNORMAL) ~PT, ~INR - ANTI [facility]AG [facility] (11/30/2022 11:01 AM EDT) Prothrombin Time INR 1.8(H) 0.9 - 1.1 [facility] Comment:METER #: [id number] TERNATIONAL NORMALIZED RATIO (INR) REFERENCE RANGES Reference [...] AM EDT 11/30/2022 11:04 AM EDT Result [facility] External Provider LAB BLO OD ORDERABLES Final Result Performing Organization Address [facility] de Phone Number [facility] [address] [place] [address] [phone] * (ABNORMAL) PROTHROMBIN TIME WHOLE BLD POC (11/09/2022 10:29 AM EDT) Protime 28.8(H) 11.1 - 13.5 sec [facility] 11/09/2022 10:2 9 AM EDT 11/09/2022 10:30 AM EDT Result [facility] External Provider LAB BLO OD ORDERABLES Final Result Performing Organization Address [facility] Phone Number [facility] [address] [place] [address] [phone] * (ABNORMAL) ~PT, ~INR - ANTI [facility]AG [facility] (11/09/2022 10:29 AM EDT) Prothrombin Time INR 2.4(H) 0.9 - 1.1 [facility] Comment:METER #: [id number] TERNATIONAL NORMALIZED RATIO (INR) REFERENCE RANGES Reference [...] AM EDT 11/09/2022 10:30 AM EDT Result [facility] External Provider LAB BLO OD ORDERABLES Final Result [facility] [address] [place] [phone] * (ABNORMAL) Basic Metabolic Panel (10/05/2022 10:02 AM EST) Sodium 146(H) 135 - 145 mmol/L [facility] Potassium 3.4 3.3 - 5.1 mmol/L [facility] Chloride 105 96 - 108 mmol/L [facility] Carbon Dioxide 29 22 - 29 mmol/L [facility] Anion Gap 15 12 - 20 [facility] Urea Nitrogen (BUN) 20(H) 9 - 16 mg/dL [facility] Creatinine, Serum 0.96 0.5 - 1.4 mg/dL [facility] Estimated Glomerular Filt Rate 55 [facility] Comment:NOTE: For -Am erican individuals, multiply the result by 1.210.Chronic Kidney Disease: Estimated GFR < 60 mL/min/1.62k8Cltmrh Kidney Disease: Estimated GFR < 15 mL/min/1.73m2 Glucose 28(LL) 60 - 115 mg/dL [facility] Comment:Critical value for t est(GLUR): Results called to and readback by: TONI Guerra LPN Person calling: PATRICIA Date:10/05/22 Time: 1112 Calcium 9.3 8.4 - 10.2 mg/dL [facility] 10/05/2022 10:0 2 AM EST 10/05/2022 10:31 AM EST [facility] External Provider LAB BLO OD ORDERABLES Final Result [facility] [address] [place] [phone] * (ABNORMAL) Prothrombin Time-INR (10/05/2022 10:02 AM EST) Prothrombin Time 72.7(H) 10.0 - 13.1 SEC [facility] INTERNATIONAL NORM RATIO 5.9(HH) 0.9 - 1.1 [facility] Comment:RESULTS OF INR VO D [...] 2 AM EST 10/05/2022 10:31 AM EST [facility] External Provider LAB BLO OD ORDERABLES Final Result [facility] [address] [place] [address] [phone] * (ABNORMAL) CBC auto differential (10/05/2022 10:02 AM EST) White Blood Count 10.8 4.8 - 10.8 X10*3/uL [facility] Red Blood Count 4.02(L) 4.20 - 5.50 X10*6/uL [facility] Hemoglobin 12.3 12.0 - 16.0 g/dl [facility] Hematocrit 39.4 37.0 - 47.0 % [facility] Mean Corpuscular Volume 98.0 80.0 - 98.0 fL [facility] Mean Corpuscular Hemoglobin 30.6 27.0 - 33.0 pg [facility] Mean Corpuscular HGB Conc 31.2 31.0 - 35.0 g/dl [facility] Red Cell Distribution Width 13.4 11.0 - 16.0 % [facility] Platelet Count 217 160 - 400 X10*3/uL [facility] Mean Platelet Volume 10.9 9.4 - 12.3 fL [facility] Neutrophils Percent Auto 58.6 45 - 73 % [facility] Imm Gran Pct Auto 0.4 0.0 - 0.4 % [facility] Lymphocytes Percent Auto 31.5 20 - 40 % [facility] Monocytes Percent Auto 5.8 2 - 11 % [facility] Eosinophils Percent Auto 3.1 0 - 4 % [facility] Basophils Percent Auto 0.6 0 - 2 % [facility] NRBC Pct Auto 0.0 0.0 - 0.2 /100WBC [facility] Neutrophils Absolute Auto 6.3 2.0 - 8.3 x10*3/uL [facility] Imm Gran Abs Auto 0.04(H) 0.00 - 0.03 X10*3/uL [facility] Lymphocytes Absolute Auto 3.4 1.2 - 4.9 X10*3/uL [facility] Monocytes Absolute Auto 0.6 0.1 - 1.2 X10*3/uL [facility] Eosinophils Absolute Auto 0.3 0.0 - 0.4 X10*3/uL [facility] Basophils Absolute Auto 0.1 0.0 - 0.2 X10*3/uL [facility] NRBC Abs Auto 0.000 0.0 - 0.012 X10*3/uL [facility] 10/05/2022 10:0 2 AM EST 10/05/2022 10:31 AM EST us [facility] External Provider LAB BLO OD ORDERABLES Final Result Performing Organization Address City/State/[facility] Co de Phone Number [facility] [address] [place] [phone] * (ABNORMAL) Prothrombin Time-INR (10/03/2022 2:57 PM EST) Prothrombin Time 92.9(H) 10.0 - 13.1 SEC [facility] INTERNATIONAL NORM RATIO 7.4(HH) 0.9 - 1.1 [facility] Comment:RESULTS OF INR VO D [...] PM EST 10/03/2022 3:20 PM EST us [facility] External Provider LAB BLO OD ORDERABLES Final Result Performing Organization Address City/State/[facility] Co de Phone Number [facility] [address] [place] [address] [phone] * (ABNORMAL) CBC auto differential (09/20/2022 11:35 AM EST) White Blood Count 9.1 4.8 - 10.8 X10*3/uL [facility] Red Blood Count 4.06(L) 4.20 - 5.50 X10*6/uL [facility] Hemoglobin 12.6 12.0 - 16.0 g/dl [facility] Hematocrit 39.2 37.0 - 47.0 % [facility] Mean Corpuscular Volume 96.6 80.0 - 98.0 fL [facility] Mean Corpuscular Hemoglobin 31.0 27.0 - 33.0 pg [facility] Mean Corpuscular HGB Conc 32.1 31.0 - 35.0 g/dl [facility] Red Cell Distribution Width 13.7 11.0 - 16.0 % [facility] Platelet Count 127(L) 160 - 400 X10*3/uL [facility] Mean Platelet Volume 11.2 9.4 - 12.3 fL [facility] Neutrophils Percent Auto 85.6(H) 45 - 73 % [facility] Imm Gran Pct Auto 0.2 0.0 - 0.4 % [facility] Lymphocytes Percent Auto 9.6(L) 20 - 40 % [facility] Monocytes Percent Auto 4.4 2 - 11 % [facility] Eosinophils Percent Auto 0.0 0 - 4 % [facility] Basophils Percent Auto 0.2 0 - 2 % [facility] NRBC Pct Auto 0.0 0.0 - 0.2 /100WBC [facility] Neutrophils Absolute Auto 7.7 2.0 - 8.3 x10*3/uL [facility] Imm Gran Abs Auto 0.02 0.00 - 0.03 X10*3/uL [facility] Lymphocytes Absolute Auto 0.9(L) 1.2 - 4.9 X10*3/uL [facility] Monocytes Absolute Auto 0.4 0.1 - 1.2 X10*3/uL [facility] Eosinophils Absolute Auto 0.0 0.0 - 0.4 X10*3/uL [facility] Basophils Absolute Auto 0.0 0.0 - 0.2 X10*3/uL [facility] NRBC Abs Auto 0.000 0.0 - 0.012 X10*3/uL [facility] 09/20/2022 11:3 5 AM EST 09/20/2022 11:39 AM EST [facility] External Provider LAB BLO OD ORDERABLES Final Result [facility] [address] [place] [address] [phone] * SARS-CoV-2 RNA, Influenza A/B, and RSV RNA, Ql NAAT (09/20/2022 11:34 AM EST) Influenza A PCR NEGATIVE Negative [facility] Influenza B PCR NEGATIVE Negative [facility] Resp Syncy Virus RNA Qual PCR NEGATIVE Negative [facility] SARS COV2 PCR NEGATIVE Negative [facility] SARS/Flu/RSV Note See Note [facility] Comment:All test results mus [...] use by authorized laboratories.Testing performed on the [employer] GeneXpert utilizingreal-time RT-PCR.All SARS CoV2 and positive influenza A/B results arereported to [facility]. 09/20/2022 11:3 4 AM EST 09/20/2022 11:51 AM EST [facility]al Provider LAB MICROBIOLOGY - GENERAL ORDERABLES Final Result Performing Organization Address [facility]/ZIP Co de Phone Number [facility] [address] [place] [address] [phone] * TSH W/Reflex to FT4 (09/20/2022 11:34 AM EST) TSH reflex Free T4 0.75 0.32 - 4.0 uIU/mL [facility] 09/20/2022 11:3 4 AM EST 09/20/2022 11:39 AM EST [facility] External Provider LAB BLO OD ORDERABLES Final Result Performing Organization Address City/[facility] Co de Phone Number [facility] [address] [place] [address] [phone] * (ABNORMAL) B Type Natriuretic Peptide (BNP) (09/20/2022 11:34 AM EST) B Type Natriuretic Peptide 421(H) <100 pg/mL [facility] Comment:For those patients w ho are being treated with Natrecor(nesiritide, recombinant BNP), BNP testing should beperformed at least two hours post treatment in order toensure that only endogenous levels of BNP are detected. 09/20/2022 11:3 4 AM EST 09/20/2022 11:39 AM EST [facility] External Provider LAB BLO OD ORDERABLES Final Result Performing Organization Address [facility] de Phone Number [facility] [address] [place] [address] [phone] * Lipase (09/20/2022 11:34 AM EST) Lipase 55 8 - 78 U/L [facility] 09/20/2022 11:3 4 AM EST 09/20/2022 11:39 AM EST [facility] External Provider LAB BLO OD ORDERABLES Final Result Performing Organization Address [facility] Phone Number [facility] [address] [place] [address] [phone] * Magnesium (09/20/2022 11:34 AM EST) Magnesium 1.6 1.6 - 2.6 mg/dL [facility] 09/20/2022 11:3 4 AM EST 09/20/2022 11:39 AM EST [facility] External Provider LAB BLO OD ORDERABLES Final Result Performing Organization Address [facility] de Phone Number [facility] [address] [place] [address] [phone] * (ABNORMAL) Comprehensive Metabolic Panel (09/20/2022 11:34 AM EST) Sodium 137 135 - 145 mmol/L [facility] Potassium 3.8 3.3 - 5.1 mmol/L [facility] Chloride 99 96 - 108 mmol/L [facility] Carbon Dioxide 30(H) 22 - 29 mmol/L [facility] Anion Gap 12 12 - 20 [facility] Urea Nitrogen (BUN) 22(H) 9 - 16 mg/dL [facility] Creatinine, Serum 1.08 0.5 - 1.4 mg/dL [facility] Creatinine Clr Calc Pharmacy 40.4 [facility] Comment:Provided height and weight: 157.48 cm,99.4 kg.eGFR (calculated from the MDRD study equation) and eCrCl(calculated from the Cockcroft-Gault equation) are based ondifferent parameters and may not yield comparable results.If eCrCl result is absurd, please check patient'sheight/weight. Estimated Glomerular Filt Rate 48 [facility] Comment:NOTE: For -Am erican individuals, multiply the result by 1.210.Chronic Kidney Disease: Estimated GFR < 60 mL/min/1.97m2Vfnbxj Kidney Disease: Estimated GFR < 15 mL/min/1.73m2 Glucose 253(H) 60 - 115 mg/dL [facility] Calcium 9.1 8.4 - 10.2 mg/dL [facility] Bilirubin, Total 0.8 0.0 - 1.0 mg/dL [facility] Aspartate Amino Transferase 24 5 - 31 U/L [facility] Alanine Aminotransferase 21 0 - 31 U/L [facility] Total Protein 7.1 6.5 - 8.0 g/dL [facility] Albumin Level 3.7 3.5 - 5.0 g/dL [facility] Alkaline Phosphatase 105 39 - 117 U/L [facility] 09/20/2022 11:3 4 AM EST 09/20/2022 11:39 AM EST us [facility] External Provider LAB BLO OD ORDERABLES Final Result [facility] [address], [place] [phone] Lactic Acid (09/20/2022 11:34 AM EST) Lactic Acid 1.1 0.5 - 2.0 mmol/L [facility] 09/20/2022 11:3 4 AM EST 09/20/2022 11:39 AM EST [facility] External Provider LAB BLO OD ORDERABLES Final Result Performing Organization Address [facility] Co de Phone Number [facility] [address] [place] [address] [phone] * (ABNORMAL) Prothrombin Time-INR (09/20/2022 11:34 AM EST) Prothrombin Time 18.3(H) 10.0 - 13.1 SEC [facility] INTERNATIONAL NORM RATIO 1.6(H) 0.9 - 1.1 [facility] Comment:INTERNATIONAL NORMAL IZED RATIO (INR) [...] 4 AM EST 09/20/2022 11:39 AM EST [facility] External Provider LAB BLO OD ORDERABLES Final Result Performing Organization Address [facility] de Phone Number [facility] [address] [place] [address] [phone] * (ABNORMAL) PROTHROMBIN TIME WHOLE BLD POC (09/12/2022 10:21 AM EST) Protime 24.5(H) 11.1 - 13.5 sec [facility] 09/12/2022 10:2 1 AM EST 09/12/2022 10:22 AM EST [facility] External Provider LAB BLO OD ORDERABLES Final Result Performing Organization Address [facility] Co de Phone Number [facility] [address] [place] [phone] * (ABNORMAL) ~PT, ~INR - ANTI COAG CLINIC (09/12/2022 10:21 AM EST) Prothrombin Time INR 2.0(H) 0.9 - 1.1 [facility] Comment:METER #: [id number] TERNATIONAL NORMALIZED RATIO (INR) REFERENCE RANGES Reference [...] 1 AM EST 09/12/2022 10:22 AM EST [facility] External Provider LAB BLO OD ORDERABLES Final Result Performing Organization Address [facility]/ZIP Co de Phone Number [facility] [address] [place] [address] [phone] * (ABNORMAL) PROTHROMBIN TIME WHOLE BLD POC (08/29/2022 10:11 AM EST) Protime 20.9(H) 11.1 - 13.5 sec [facility] 08/29/2022 10:1 1 AM EST 08/29/2022 10:15 AM EST [facility] External Provider LAB BLO OD ORDERABLES Final Result [facility] [address] [place] [phone] * (ABNORMAL) ~PT, ~INR - ANTI [facility]AG CLINIC (08/29/2022 10:11 AM EST) Prothrombin Time INR 1.7(H) 0.9 - 1.1 [facility] Comment:METER #: [id number] TERNATIONAL NORMALIZED RATIO (INR) REFERENCE RANGES Reference [...] 1 AM EST 08/29/2022 10:15 AM EST [facility] External Provider LAB BLO OD ORDERABLES Final Result Performing Organization Address City/[facility] Co de Phone Number [facility] [address] [place] [phone] * (ABNORMAL) PROTHROMBIN TIME WHOLE BLD POC (08/18/2022 1:12 PM EST) Protime 22.1(H) 11.1 - 13.5 sec [facility] 08/18/2022 1:12 PM EST 08/18/2022 1:14 PM EST [facility] External Provider LAB BLO OD ORDERABLES Final Result Performing Organization Address City/[facility]/ZIP Co de Phone Number [facility] [address] [place] [phone] * (ABNORMAL) ~PT, ~INR - ANTI COAG CLINIC (08/18/2022 1:12 PM EST) Prothrombin Time INR 1.8(H) 0.9 - 1.1 [facility] Comment:METER #: [id number] TERNATIONAL NORMALIZED RATIO (INR) REFERENCE RANGES Reference [...] PM EST 08/18/2022 1:14 PM EST us [facility] External Provider LAB BLO OD ORDERABLES Final Result [facility] [address] [place] [phone] documented in this encounter Visit Diagnoses Not on filedocumented in this encounter Care Teams Saturator Tender Relationship Specialty Start Date End Date Valeri Lerner DO [address] [place] [address] PCP - General Family Medicine 07/13/12 Batsheva Gomez PharmD [address] [place] [address] Pharmacist Internal Medicine 03/07/24 12/19/24 [employer] 12/08/23 documented as of this encounter
--- OUTSIDE RECORDS SUMMARY | 2025-06-26 11:44 | XMS_ITS | Encounter Summary ---
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 Social History Tobacco [...] WITH INR Routine 06/02/2025 6:24 AM EST [facility] (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 documented in this encounter Results * (ABNORMAL) Prothrombin time with INR (06/02/2025 6:24 AM EST) Protime 15.9(H) 10.6 - 13.9 sec LAB COAGULATION METHOD 06/02/2025 10:54 AM EST [facility] INR 1.3 LAB COAGULATION METHOD 06/02/2025 10:54 AM EST [facility] Blood Venous blood specimen / Unknown Venipuncture / Unknown 06/02/2025 6:24 AM EST 06/02/2025 9:50 AM EST us Macario Green MD LAB BLOOD ORDERABLES Final R esult [facility] [address] [place] [address], documented in this encounter Visit Diagnoses Diagnosis [facility] (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 Long-term (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 documented in this encounter Care Teams Canvas Worker Relationship Specialty Start Date End Date Valeri Lerner DO [address] [place] [address] PCP - General 11/15/14 documented as of this encounter
--- OUTSIDE RECORDS SUMMARY | 2025-06-26 11:44 | XMS_ITS | Encounter Summary ---
Author Organization [employer] Address [address] [place] [address] 7t [place] [address] Care Team Providers Care Field Gauger Name Role Phone Valeri Lerner DO Primary Care Provider [phone] Batsheva Gomez PharmD Unavailable [phone] Encounter Details Date Type Department Care Team (Latest Contact Info) Description 11/11/2020 Abstract [facility] CONVERSIONS Dental, Provider, DDS Social History Tobacco [...] 1:00 PM EST Office Visit [facility] MEDICINE [address] [place], [place] [phone] Diana Eric MD [address] [place] [address] documented as of this encounter Visit Diagnoses Not on filedocumented in this encounter Care Teams Field Gauger Relationship Specialty Start Date End Date Valeri Lerner DO [address] [place] [address] PCP - General Family Medicine 07/13/12 Batsheva Gomez PharmD [address] [place] [address] Pharmacist Internal Medicine 03/07/24 12/19/24 [employer] 12/08/23 documented as of this encounter
--- OUTSIDE RECORDS SUMMARY | 2025-06-26 11:44 | XMS_ITS | Encounter Summary ---
Author Organization [facility] Address [id number] [place] [address] Care Team Providers Care Caterer Helper Name Role Phone Valeri Lerner DO Primary Care Provider [phone]- [phone] Encounter Details Date Type Department Care Team (Late st Contact Info) Description 06/05/2025 Lab Requisition [facility] - Main Lab 299 [facility] [place] [address] Macario Green MD [address] [place] [address] Unspecified atrial fibrillation (CMS/HCC V24, CMS/HCC V28) [...] LAB COAGULATION METHOD 06/05/2025 8:45 AM EST [facility] INR 1.6 LAB COAGULATION METHOD 06/05/2025 8:45 AM EST [facility] Blood Venous blood specimen / Unknown Venipuncture / Unknown 06/05/2025 7:00 AM EST 06/05/2025 8:16 AM EST us Macario Green MD LAB BLOOD ORDERABLES Final R esult [facility] ([facility]) [facility] [address] [place] [address], documented in this encounter Visit Diagnoses Diagnosis Unspecified atrial fibrillation (CMS/HCC V24, CMS/HCC V28) documented in this encounter Care Teams Caterer Helper Relationship Specialty Start Date End Date Valeri Lerner DO [address] [place] [address] PCP - General 11/15/14 documented as of this encounter
--- OUTSIDE RECORDS SUMMARY | 2025-06-26 11:44 | XMS_ITS | Encounter Summary ---
Author Organization [employer] Address [address] [facility] 7t [place] [address] Care Team Providers Care Transit Specialist Name Role Phone Valeri Lerner DO Primary Care Provider Batsheva Gomez PharmD Unavailable [phone] Reason for Visit * Reason Onset Date Comments Nurse Triage 03/25/2024 Encounter Details Date Type Department Care Team (Late st Contact Info) Description 03/25/2024 Telephone [facility] [address] [place], [place] [phone] Valeri Lerner DO [address] [place], [place] [phone] Nurse Triage Social History Tobacco Use Types [...] the past 12 months, has t he [place], gas, oil or water [employer] threatened to shut off services in your [...] outcome Contact pt visiting nurse Artemio at [phone] documented in this encounter Plan of Treatment Upcoming Encounters Date Type Department Care Team (Late st Contact Info) Description 07/04/2025 1:00 PM EST Office Visit [facility] [address] [place] [address] Diana Eric MD [address] [place] [address] documented as of this encounter Goals Goal [...] documented as of this encounter Care Teams Transit Specialist Relationship Specialty Start Date End Date Valeri Lerner DO [address] [place] [address] PCP - General Family Medicine 07/13/12 Batsheva Gomez, PharmD [address] [place] [phone] Pharmacist Internal Medicine 03/07/24 12/19/24 [employer] 12/08/23 documented as of this encounter
--- OUTSIDE RECORDS SUMMARY | 2025-06-26 11:44 | XMS_ITS | Encounter Summary ---
Author Organization [employer] Address [address] [facility] 7t [place] [address] Care Team Providers Care Machinist Set Up Name Role Phone AfricaValeri petersen DO Primary Care Provider + [phone] Encounter Details Date Type Department Care Team (Latest Contact Info) Description 06/23/2025 Anticoagulation - Warfarin Visit [facility] [address] [place], [place] [phone] Michaela Rollins, SHIRLEY [address] [place] [address] Paroxysmal atrial fibrillation (CMS/HCC) (HCC) Social History Tobacco Use Types Packs/Day Years [...] Progress Notes * Michaela Rollins RN - 06/23/2025 1:08 PM EST VNA Willian called to report pt's INR today is 2.6. Pt's INR discussed w/ PCP (Dr. Lerner), drawn bypt's VNA (Willian VALERIO). INR today 2.6 Plan is 6mg EVERY DAY and repeat INR on 06/30/2025. RN informed Willian [phone] of above plan and VNA repeated orders back to RN. VNA will report INR on 06/30/25 to [facility]. documented in this encounter Plan of Treatment Upcoming Encounters Date Type Department Care Team (Late st Contact Info) Description 07/04/2025 1:00 PM EST Office Visit [facility] [address] [place], [place] [phone] Diana Eric MD [address] [place] [address] documented as of this encounter Goals Goal Patient Goal Type Associated Problems Recent Progress Patient-Stated? Author Patient will adhere to medication regimen General No Batsheva Gomez, Frankie Record your blood sugar as directed Result [...] Care Plan Weekly blood pressure task No Puja Taylor Weekly blood pressure task Care Plan Weekly blood pressure task No Puja Taylor Patient has chronic kidney disease Care Plan Patient has chronic kidney disease No Puja Taylor Patient has chronic kidney disease Care Plan Patient has chronic kidney disease No Puja Taylor Weekly blood pressure task Care Plan Weekly blood pressure task No Michaela Rollins RN Weekly blood pressure task Care Plan Weekly blood pressure task No Michaela Rollins RN Patient has chronic kidney disease Care Plan Patient has chronic kidney disease No Michaela Rollins, SHIRLEY Patient has chronic [...] Plan Patient has diabetic eye disease No Tdo, Ai, OD Patient has chronic kidney disease [...] Care Plan Weekly blood pressure task No Mcihaela Rollins RN Weekly blood pressure task Care Plan Weekly blood pressure task No Michaela Rollins RN Patient has chronic kidney disease Care Plan Patient has chronic kidney disease No Michaela Rollins RN Patient has chronic kidney disease Care Plan Patient has chronic kidney disease No Michaela Rollins RN documented as of this encounter Procedures Procedure Name Priority Date/Time Associated Diagnosis Comments PROTHROMBIN TIME-INR Routine 06/23/2025 documented in this encounter Results * (ABNORMAL) Prothrombin Time-INR (06/23/2025) INR 2.60(A) 2.00 - 3.00 Protime Blood Venous blood specimen / Unknown 06/23/2025 us Historical Provider LAB BLOOD ORDERABLES Anastasiya l Result documented in this encounter Visit Diagnoses Diagnosis Paroxysmal atrial fibrillation (CMS/HCC) (HCC) Atrial fibrillation documented in this encounter Additional Health Concerns Active [...] 06/23/2025 Patient has chronic kidney disease 06/23/2025 Assessment Noted Time PHQ-9 Depression Total Score: 0 07/15/20 24 11:32 AM EST documented as of this encounter Care Teams Machinist Set Up Relationship Specialty Start Date End Date Valeri Lerner DO [address] [place] [address] PCP - General Family Medicine 07/13/12 [employer] 12/08/23 documented as of this encounter
--- OUTSIDE RECORDS SUMMARY | 2025-06-26 11:44 | XMS_ITS | Encounter Summary ---
Author Organization [facility] Address [address] [place] [address] Care Team Providers Care Top Lift Trimmer Name Role Phone Valeri Lerner DO Primary Care Provider [phone]- [phone] Encounter Details Date Type Department Care Team (Late st Contact Info) Description 10/30/2024 Lab Requisition [facility] - Main Lab [address] [place] [address] Kymberly Horne MD [address] [phone] Type 2 diabetes mellitus without complications (CMS/HCC [...] LAB CHEMISTRY METHOD 10/30/2024 1:50 PM EDT [facility] Mean Bld Glu Estim. 166 mg/dL LAB CHEMISTRY METHOD 10/30/2024 1:50 PM EDT [facility] Blood Venous blood specimen / Unknown Venipuncture / Unknown 10/30/2024 7:51 AM EDT 10/30/2024 10:03 AM EDT us Kymberly Horne MD LAB BLOOD ORDERABLES Fin al Result [facility] ([facility]) [facility] [address] [place] [address], documented in this encounter Visit Diagnoses Diagnosis Type 2 diabetes mellitus without complications (CMS/HCC V24, CMS/HCC V28) documented in this encounter Care Teams Top Lift Trimmer Relationship Specialty Start Date End Date Valeri Lerner DO [address] [place] [address] PCP - General 11/15/14 documented as of this encounter
--- OUTSIDE RECORDS SUMMARY | 2025-06-26 11:44 | XMS_ITS | Clinical Summary ---
Author Organization [address] Address [address] [place] [phone] Phone Care Team Providers Care Procurement Technician Name Role Phone Lee Ann Lernernifer Kaykay LENTZ Primary Care Provider +1- [phone] Encounters Date Type Department Care Team Description 06/11/2025 Lab Requisition [facility] Lab [address] [place] [phone] Macario Green MD Unspecified atrial fibrillation (CMS/HCC V24, CMS/HCC V28) 06/10/2025 Lab Requisition [facility] Lab [address] [place] [phone] Macario Green MD Unspecified atrial fibrillation (CMS/HCC V24, CMS/HCC V28) 06/09/2025 Lab Requisition [facility] Lab [address] [place] [phone] Macario Green MD Unspecified atrial fibrillation (CMS/HCC V24, CMS/HCC V28) 06/07/2025 Lab Requisition [facility] Lab [address] [place] [phone] Macario Green MD alf (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 06/05/2025 Lab Requisition [facility] [address] [place] [address] Macario Green MD Unspecified atrial fibrillation (CMS/HCC V24, CMS/HCC V28) 06/04/2025 Lab Requisition [facility] [address] [place] [address] Macario Green MD Paroxysmal atrial fibrillation ([facility] V24, [facility] V28) 06/03/2025 Lab Requisition [facility] [address] [place] [address] Macario Green MD Heart failure, unspecified ([facility] V24, [facility] V28); Essential (primary) hypertension; Paroxysmal atrial fibrillation ([facility] V24, [facility] V28); alf (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 06/02/2025 Lab Requisition [facility] [address] [place] [address] Macario Green MD terminal system operator (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 05/30/2025 Lab Requisition [facility] Lab [address] [place] [address] Macario Green MD Type 2 diabetes mellitus with diabetic polyneuropathy ([facility] V24, [facility] V28); Hyperlipidemia, unspecified; Chronic atrial fibrillation, unspecified ([facility] V24, [facility] V28); Essential (primary) hypertension; terminal system operator (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 from Last 3 [...] WITH INR Routine 06/07/2025 5:28 AM EST terminal system operator (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 PROTHROMBIN TIME WITH [...] (CMS/HCC V24, CMS/HCC V28) Essential (primary) hypertension terminal system operator (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 HEMOGLOBIN A1C Routine 10/30/2024 7:51 AM EDT Type 2 diabetes mellitus without complications from Last 3 Months or Most Recently Relevant to Health Maintenance Results * (ABNORMAL) Prothrombin time with INR (06/12/2025 7:54 AM EST) Only the most recent of9 resultswithin the time period is included. Pathologist [facility] Protime 23.4(H) 10.6 - 13.9 sec LAB COAGULATION METHOD 06/12/2025 10:[address] [facility] INR 1.9 LAB COAGULATION METHOD 06/12/2025 10:[address] [facility] Blood Venous blood specimen / Unknown Venipuncture / Unknown 06/12/2025 7:54 AM EST 06/12/2025 10:16 AM EST us Macario Green MD LAB BLOOD ORDERABLES Final R esult [facility] [address] [place] [address], [place] [phone] * (ABNORMAL) Complete blood count (05/30/2025 6:09 AM EDT) [facility] WBC 7.2 4.8 - 10.8 K/mcL [...] % LAB HEMETOLOGY METHOD 05/30/2025 11:09 AM [facility] Platelets 166 130 - 400 K/mcL LAB HEMETOLOGY METHOD 05/30/2025 11:09 AM [facility] MPV 11.8(H) 7.0 - 11.0 FL LAB HEMETOLOGY METHOD 05/30/2025 11:09 AM [facility] NRBC 0.0 <1.0 % LAB HEMETOLOGY METHOD 05/30/2025 11:09 AM [facility] NRBC Absolute 0.00 <0.10 K/mcL LAB HEMETOLOGY METHOD 05/30/2025 11:09 AM [facility] Blood Venous blood specimen / Unknown Venipuncture / Unknown 05/30/2025 6:09 AM EDT 05/30/2025 9:50 AM EDT us Macario Green MD LAB BLOOD ORDERABLES Final R esult [facility] [address] [place] [address], * (ABNORMAL) Basic metabolic panel (05/30/2025 6:09 AM EDT) Sodium 140 133 - 145 mmol/L LAB CHEMISTRY METHOD 05/30/2025 11:24 AM [facility] Potassium 4.1 3.5 - 5.5 mmol/L LAB CHEMISTRY METHOD 05/30/2025 11:24 AM [facility] Chloride 102 96 - 110 mmol/L LAB CHEMISTRY METHOD 05/30/2025 11:24 AM [facility] CO2 35(H) 21 - 32 mmol/L LAB CHEMISTRY METHOD 05/30/2025 11:24 AM [facility] Anion Gap 3 3 - 11 LAB CHEMISTRY METHOD 05/30/2025 11:24 AM [facility] Glucose 119(H) 70 - 100 mg/dL LAB CHEMISTRY METHOD 05/30/2025 11:24 AM [facility] BUN 26(H) 5 - 25 mg/dL LAB CHEMISTRY METHOD 05/30/2025 11:24 AM [facility] Creatinine 1.13(H) 0.50 - 1.10 mg/dL LAB CHEMISTRY METHOD 05/30/2025 11:24 AM [facility] eGFR 47(L) >=60 mL/min/1. 73m2 LAB CHEMISTRY METHOD 05/30/2025 11:24 AM [facility] Comment:Calculation based on the Chronic Kidney Disease Epidemiology Collaboration (CKD-EPI) equation refit without adjustment for race. BUN/Creatinine Ratio 23.0 LAB CHEMISTRY METHOD 05/30/2025 11:24 AM [facility] Calcium 9.5 8.5 - 10.5 mg/dL LAB CHEMISTRY METHOD 05/30/2025 11:24 AM [facility] Blood Venous blood specimen / Unknown Venipuncture / Unknown 05/30/2025 6:09 AM EDT 05/30/2025 9:50 AM EDT Macario Green MD LAB BLOOD ORDERABLES Final R esult Performing Organization Address [facility]/ZIP Co de Phone Number [facility] [address] [place] [address], [place] [phone] * (ABNORMAL) Hemoglobin A1c (10/30/2024 7:51 AM [...] ORDERABLES Fin al Result Performing Organization Address [facility] Co de Phone Number [facility] [address] [place] [address], [place] [phone] from Last 3 Months or Most Recently Relevant to Health Maintenance Insurance [facility] [employer] [place] [id number] MEDICAID - [place] Care Teams Procurement Technician Relationship Specialty Start Date End Date Valeri Lerner DO [address] [place] [address] PCP - General 11/15/14
--- OUTSIDE RECORDS SUMMARY | 2025-06-26 11:44 | XMS_ITS | Encounter Summary ---
Author Organization [employer] Address [address] [facility] 7t [place] [address] Care Team Providers Care Relocation Manager Name Role Phone Valeri Lerner DO Primary Care Provider +[phone] Reason for Visit * Reason Onset Date Comments Hospital Follow-up 06/13/2025 Encounter Details Date Type Department Care Team (Late st Contact Info) Description 06/13/2025 Telephone [facility] MEDICINE [address] [place], [place] [phone] Valeri Lerner DO [address] [place], [place] [phone] Hospital Follow-up Social History Tobacco Use Types [...] from pt requesting a HDF appt. Hospital: [facility] Date of admission: apr on date Discharge date: 06/12/25 Diagnosed: leg swelling Please contact daughter at [phone]. documented in this encounter Plan of Treatment Upcoming Encounters Date Type Department Care Team (Late st Contact Info) Description 07/04/2025 1:00 PM EST Office Visit [facility] MED[facility]INE [address] [place] [address] Diana Eric MD [address] [place], [place] [phone] documented as of this encounter Goals Goal [...] documented as of this encounter Care Teams Relocation Manager Relationship Specialty Start Date End Date Valeri Lerner DO [address] [place] [address] PCP - General Family Medicine 07/13/12 [employer] 12/08/23 documented as of this encounter
--- OUTSIDE RECORDS SUMMARY | 2025-06-26 11:44 | XMS_ITS ---
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 She has an appointment with the assisted living nursing director on monday for further evaluation.01/28/25: Patient denies BLE edema or dyspnea, denies any acute concerns. COPD (chronic obstructive pulmonary disease) Active 2022-08-15 N/A advjhoana hayes casonefu w pulmonaryon Room Air -Stable-continue to f/u with PCP/specialists-continue rx'd medications-report changes in chronic condition Incontinence; Mixed stress and urge urinary incontinence Active 2024-11-22 N/A Incontinence sup plies ordered on 11/22-continue f/u with urology [facility] Unsteady gait Active 2024-12-10 N/A MAIL OPENER reports that the patient has unsteady gait [...] N/A -Patient has gurwinder ly VNA and MAIL OPENER services. She lives alone in a third floor apartment with close family support from daughter. Daughter requesting increase in MAIL OPENER hoursPCA- Sully -Advised to reach out to [facility] cc [place] currently approximate 30hours per [...] NoDo you have a Durable Power of Gasoline Truck Operator for Healthcare, or Healthcare Proxy Or Guardianship? 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 [...] (do not use for phone, instead use 36536-56) [facility] Paroxysmal atrial fibrillationChronic obstructive pulmonary disease, unspecifiedAthscl heart disease of big [place] coronary artery w/o ang pctrsType 2 diabetes [...] (do not use for phone, instead use 96797-62) [facility] New patient,40-59min ; chronic exacerbation, 2 stable chronic or 1 acute illness add add modifier 95 for video (do not use for phone, instead use 49169-83) [facility] New patient,40-59min ; chronic exacerbation, 2 stable chronic or 1 acute illness add add modifier 95 for video (do not use for phone, instead use 70303-72) [facility] New patient,40-59min ; chronic exacerbation, 2 stable chronic or 1 acute illness add add modifier 95 for video (do not use for phone, instead use 84989-72) [facility] New patient,40-59min ; chronic exacerbation, 2 stable chronic or 1 acute illness add add modifier 95 for video (do not use for phone, instead use 91825-44) [facility] New patient,40-59min ; chronic exacerbation, 2 stable chronic or 1 acute illness add add modifier 95 for video (do not use for phone, instead use 81650-07) [facility] ([place]) 08/25/20[place] New patient,40-59min ; chronic exacerbation, 2 stable chronic or 1 acute illness add add modifier 95 for video (do not use for phone, instead use 05273-10) [facility] Estab. patient 20-29min; 1 stable chronic or 2 minor; add add modifier 95 for video, modifier 93 for phone [facility]/2022 Pneumonia, unspecified organismSepsis, unspecified organism Estab. patient 20-29min; 1 stable chronic or 2 minor; add add modifier 95 for video, modifier 93 for phone [facility] Estab. patient 20-29min; 1 stable chronic or 2 minor; add add modifier 95 for video, modifier 93 for phone [facility]/20[place] Estab. patient 20-29min; 1 stable chronic or 2 minor; add add modifier 95 for video, modifier 93 for phone [facility]/03/20[place] Estab. patient 20-29min; 1 stable chronic or 2 minor; add add modifier 95 for video, modifier 93 for phone [facility] Estab. patient 20-29min; 1 stable chronic or 2 minor; add add modifier 95 for video, modifier 93 for phone [facility] Estab. patient 30-39min; chronic exacerbation, 2 stable chronic or 1 acute illness add add modifier 95 for video, (do not use for phone, instead use 42052-77) [facility] Paroxysmal atrial fibrillati onOther thrombophiliaHypertensive heart disease with heart failureMorbid (severe) obesity due to excess caloriesSecondary hyperaldosteronismChronic obstructive pulmonary disease, unspecifiedHeart failure, unspecifiedMajor depressive disorder, single episode, in partial remissionType 2 diabetes mellitus with other specified complicationHypothyroidism, unspecifiedHyperlipidemia, unspecifiedAthscl heart disease of big sandy coronary artery w/o ang pctrsAnemia in other chronic diseases classified elsewhereGeneralized anxiety disorderBody mass index (BMI) 40.0-44.9, adultPrsnl hx of TIA (TIA), and cereb infrc w/o resid deficitsOther problems related to medical facilities and other health care Estab. patient 30-39min; chronic exacerbation, 2 stable chronic or 1 acute illness add add modifier 95 for video, (do not use for phone, instead use 86829-79) [facility] 05[place] Estab. patient 30-39min; chronic exacerbation, 2 stable chronic or 1 acute illness add add modifier 95 for video, (do not use for phone, instead use 81210-92) [facility] 05[place]/20[place] Estab. patient 30-39min; chronic exacerbation, 2 stable chronic or 1 acute illness add add modifier 95 for video, (do not use for phone, instead use 17665-80) [facility] 05[place]/20[place] Estab. patient 30-39min; chronic exacerbation, 2 stable chronic or 1 acute illness add add modifier 95 for video, (do not use for phone, instead use 60096-42) [facility] Estab. patient 30-39min; chronic exacerbation, 2 stable chronic or 1 acute illness add add modifier 95 for video, (do not use for phone, instead use 23448-95) [facility] Estab. patient 30-39min; chronic exacerbation, 2 stable chronic or 1 acute illness add add modifier 95 for video, (do not use for phone, instead use 79925-09) [facility] Estab. patient 30-39min; chronic exacerbation, 2 stable chronic or 1 acute illness add add modifier 95 for video, (do not use for phone, instead use 60307-27) [facility] Estab. patient 30-39min; chronic exacerbation, 2 stable chronic or 1 acute illness add add modifier 95 for video, (do not use for phone, instead use 70486-41) [facility] Estab. patient 30-39min; chronic exacerbation, 2 stable chronic or 1 acute illness add add modifier 95 for video, (do not use for phone, instead use 35104-45) [facility] Estab. patient 30-39min; chronic exacerbation, 2 stable chronic or 1 acute illness add add modifier 95 for video, (do not use for phone, instead use 12478-54) [facility] Estab. patient 10-29min; 1 minor problem; add add modifier 95 for video, modifier 93 for phone [facility] 09[place]/2024 Heart failure, unspecifiedSe condary hyperaldosteronismOther problems related to medical facilities and other health care Estab. patient 10-29min; 1 minor problem; add add modifier 95 for video, modifier 93 for phone [facility]10[place]2024 Chronic obstructive pulmonar y disease, unspecifiedHypertensive heart disease with heart failureHeart failure, unspecified Estab. patient 10-29min; 1 minor problem; add add modifier 95 for video, modifier 93 for phone [facility]/2024 Acute respiratory failure wi th hypoxiaChronic obstructive pulmonary disease, unspecifiedPneumonia, unspecified organismUnspecified urinary incontinenceOther problems related to medical facilities and other health care Estab. patient 10-29min; 1 minor problem; add add modifier 95 for video, modifier 93 for phone [facility]/20[place] Estab. patient 10-29min; 1 minor problem; add add modifier 95 for video, modifier 93 for phone [facility]/07/20[place] Estab. patient 10-29min; 1 minor problem; add add modifier 95 for video, modifier 93 for phone [facility]/20[place] Estab. patient 10-29min; 1 minor problem; add add modifier 95 for video, modifier 93 for phone [facility]2024 Acute respiratory failure wi th hypoxiaPneumonia, unspecified organismUnsteadiness on feetOther problems related to medical facilities and other health care Estab. patient 10-29min; 1 minor problem; add add modifier 95 for video, modifier 93 for phone [facility] 01/[place]/2025 Heart failure, unspecifiedSe condary hyperaldosteronismChronic obstructive pulmonary disease, unspecified RN, CN or CP time with patient by phone; use with 1111F, BP, A1c or other CPTII codes [facility] 02/18/2025 Encounter for other specifie d aftercare RN, CN or CP time with patient by phone; use with 1111F, BP, A1c or other CPTII codes [facility] 02/18/2025 Estab. patient 10-29min; 1 minor problem; add add modifier 95 for video, modifier 93 for phone [facility] 02/27/2025 Urinary tract infection, sit e not specifiedOther problems related to medical facilities and other health care Estab. patient 10-29min; 1 minor problem; add add modifier 95 for video, modifier 93 for phone [facility] 02/27/2025 Estab. patient 10-29min; 1 minor problem; add add modifier 95 for video, modifier 93 for phone [facility] 02/27/2025 Estab. patient 10-29min; 1 minor problem; add add modifier 95 for video, modifier 93 for phone [facility] 02/[place]/2025 Estab. patient 10-29min; 1 minor problem; add add modifier 95 for video, modifier 93 for phone [facility] 04/[place]/2025 Polyosteoarthritis, unspecifiedParoxysmal atrial fibrillationOther thrombophiliaChronic obstructive pulmonary disease, unspecifiedAthscl heart disease of big [place] coronary artery w/o ang pctrsType 2 diabetes [...] tive Time Current Smoking Status Former smoker 2025-06-01 7 Sex Female Gender identity Woman History of Procedures Procedures Service Procedure code Service date Servicing provider Phone# New patient,40-59min; chronic exacerbation, 2 stable chronic or 1 acute illness add add modifier 95 for video (do not use for phone, instead use 00987-89) [id number] 2022-08-25 No Data Available No Data Availa [...] 95 for video, modifier 93 for phone [id number] 2022-10-03 No Data Available No Data Availa [...] (do not use for phone, instead use 04347-12) [id number] 2024-05-28 No Data Available No Data Availa [...] 95 for video, modifier 93 for phone [id number] 2024-09-10 No Data Available No Data Availa ble Estab. patient 10-29min; 1 minor problem; add add modifier 95 for video, modifier 93 for phone [id number] 2024-10-10 No Data Available No Data Availa [...] 95 for video, modifier 93 for phone [id number] 2024-12-10 No Data Available No Data Availa ble Estab. patient 10-29min; 1 minor problem; add add modifier 95 for video, modifier 93 for phone [id number] 2025-01-28 No Data Available No Data Availa ble RN, CN or CP time with patient by phone; use with 1111F, BP, A1c or other CPTII codes 99505 2025-02-18 No Data Available No Data Avai [...] 95 for video, modifier 93 for phone 15454 2025-04-02 No Data Available No Data Availa [...] obstructive pulmonary disease)Atherosclerosis of coronary artery of [place] sandy heartType 2 diabetes mellitus with hyperlipidemiaMajor depressive disorder in partial remissionHypothyroidismMorbid obesity due to excess caloriesHistory of CVA (cerebrovascular accident)Anemia in chronic illness 2022-10-03 07:05:20 Patient Education to avoid future hospitalization: Call [facility] if symptoms of illness develop.Sepsis due to pneumonia 2024-05-28 07:45:46 paroxysmal atrial fi brillation and Hypercoagulability due to atrial fibrillationCOPD (chronic obstructive pulmonary disease)Atherosclerosis of coronary artery of big sandy heartType 2 diabetes mellitus with hyperlipidemiaMajor depressive [...] obstructive pulmonary disease)Atherosclerosis of coronary artery of big sandy heartType 2 diabetes mellitus with hyperlipidemia; Type [...] lantus, metformin, trulicty a1c 7.7, [facility] and mtr lipids fu w endocrinecont on sertralinept denies symptoms currentlycont to [facility] fcont clonazepam for anxiety/insomnialevothyroxinefu w [...] may arise 20/02.HEART FAILURE CONTINGENCY PLANLast updated: 05/29/2024[facility] to call for the following symptoms: [...] feeling wellReport consistent blood pressures readings >140/902/06/24: MAIL OPENER reports that in the last couple of days the patient's toes have been pink and sensitive to touch, denies uncontrolled pain to touch. She has an appointment with the assisted living nursing director on monday for further evaluation. 2024-10-10 06:15:41 Estab. patient 10-29 min; 1 minor problem; add add modifier 95 for video, modifier 93 for phoneContinue to see PCP. [facility] or disease education needs that may arise 20/02.advair, fluticasonefu w pulmonary3: Patient denies dyspnea or any other concerns.Encourage low sodium diet. Encouraged daily blood pressure checks and tracking. Instructed patient to notify CB or PCP if blood pressure >140/90 or <90/50.HEART FAILURE CONTINGENCY PLANLast updated: 05/29/2024[facility] to call for the following symptoms: [...] the patient is home with family and MAIL OPENER/VNA care. The patient is currently has a soft diet and increase weakness post hospitalization. Medication reconciled with hospital records, unable to confirm with VNAHEART FAILURE CONTINGENCY PLANLast updated: 05/29/2024[facility] to call for the following symptoms: BP <100/60 / BP >180/100 / Edema/ Exertional dyspnea/ Weight gain or lossPlanned intervention: Increase furosemide (Lasix) to 60 mg for 3 days/ Wrap legs with Mohan wrap/ Put on compression stockings/ Eat lower sodium foods/ Take medication every single dayCOPD CONTINGENCY PLANLast updated: 11/22/2024[facility] to call for the following symptoms: [...] or disease education needs that may arise 20/02.MAIL OPENER reports that the patient has unsteady gait with walking, requires assistance during ambulation. Hx of falls.11/07/24: Hospitalization 10/21-10/21 for acute hypoxic respiratory failure secondary to pneumonia. Patient presented to cough and shortness of breath. The patient was discharged to a STR. In addition, the patient had ER visit 11/05 for aspiration pneumonia. At this time, the patient is home with family and MAIL OPENER/VNA care. The patient is currently has a soft diet and increase weakness post hospitalization. Medication reconciled with hospital records, unable to confirm with VNA12/10/24: Cg reports that the patient does not have any acute symptoms, she is 'stable'. She is aware that the patient will continue to steadily decline.HEART FAILURE CONTINGENCY PLANLast updated: 05/29/2024[facility] to call for the following symptoms: BP <100/60 / BP >180/100 / Edema/ Exertional dyspnea/ Weight gain or lossPlanned intervention: Increase furosemide (Lasix) to 60 mg for 3 days/ Wrap legs with Mohan wrap/ Put on compression stockings/ Eat lower sodium foods/ Take medication every single dayCOPD CONTINGENCY PLANLast updated: 11/22/2024[facility] to call for the following symptoms: Exertional dyspnea/ Increased cough / WheezingPlanned intervention: Levofloxacin 500mg daily x 5 daysFALL CONTINGENCY PLANMember to call for the following symptoms: Fall / Pre-syncope/ Refusing to use cane / WeaknessPlanned intervention: Order x-ray at [facility] or local hospital Assess for change [...] feeling wellReport consistent blood pressures readings >140/902/06/24: MAIL OPENER reports that in the last couple of days the patient's toes have been pink and sensitive to touch, denies uncontrolled pain to touch. She has an appointment with the assisted living nursing director on monday for further evaluation.01/28/25: Patient denies BLE edema or dyspnea, denies any acute concerns.advair, fluticasonefu w pulmonary01/28/25: Patient denies dyspnea or any other concerns.HEART FAILURE CONTINGENCY PLANLast updated: 05/29/2024[facility] to call for the following symptoms: BP <100/60 / BP >180/100 / Edema/ Exertional dyspnea/ Weight gain or lossPlanned intervention: Increase furosemide (Lasix) to 60 mg for 3 days/ Wrap legs with Mohan wrap/ Put on compression stockings/ Eat lower sodium foods/ Take medication every single dayCOPD CONTINGENCY PLANLast updated: 11/22/2024[facility] to call for the following symptoms: Exertional dyspnea/ Increased cough / WheezingPlanned intervention: Levofloxacin 500mg daily x 5 daysFALL CONTINGENCY PLANMember to call for the following symptoms: Fall / Pre-syncope/ Refusing to use cane / WeaknessPlanned intervention: Order x-ray at [facility] or local hospital Assess for change [...] for phoneContinue to see PCP. Follow-up with [facility] as needed for any acute or disease education needs that may arise.02/15-02/17 hospitalization due to a fall. Dx with a urinary tract infection and treated with an antibiotic. Cg denies any current symptoms or concerns.UTI CONTINGENCY PLANLast updated: 02/27/2025[facility] to call for the following symptoms: [...] cane / WeaknessPlanned intervention: Order x-ray at [facility] or local hospital Assess for change [...] with PCP/specialists-continue rx'd medications-report changes in chronic hchuyxbmnlfmsuyzof-Laulib-fvwckhpy to f/u with PCP/specialists-continue rx'd medications-report changes [...] feeling wellReport consistent blood pressures readings >140/902/06/24: MAIL OPENER reports that in the last couple of days the patient's toes have been pink and sensitive to touch, denies uncontrolled pain to touch. She has an appointment with the assisted living nursing director on monday for further evaluation.01/28/25: Patient denies [...] supplies ordered on 11/22-[facility] that the patient has unsteady gait with walking, requires assistance during ambulation. Hx of falls.-Patient has daily VNA and MAIL OPENER services. She lives alone in a third floor apartment with close family support from daughter. Daughter requesting increase in MAIL OPENER hoursPCAJigna Virk -Advised to reach out to [facility] cc [place] currently approximate 30hours per [...] NoDo you have a Durable Power of Gasoline Truck Operator for Healthcare, or Healthcare Proxy Or Guardianship? [...] discussion: (Who was present, : member and LUA-Naenhz-ecrwzhvp to f/u with PCP/specialists-continue rx'd medications-report changes [...] NoDo you have a Durable Power of Gasoline Truck Operator for Healthcare, or Healthcare Proxy Or Guardianship? [...] discussion: (Who was present, : member and MAIL OPENER 2025-04-02 Functional Assessmen tCognition Status: Oriented to [...]
--- OUTSIDE RECORDS SUMMARY | 2025-06-26 11:44 | XMS_ITS | Encounter Summary ---
Author Organization [facility] Address [address] [place] [id number] Care Team Providers Care Louver Door Assembler Name Role Phone Valeri Lerner DO Primary Care Provider [phone] Encounter Details Date Type Department Care Team (Latest Contact Info) Description 10/22/2024 Lab Requisition [facility] - Main Lab [address] [facility] [place] [address] Amrita Polanco MD [address] [place] [id number] Essential (primary) hypertension; Unspecified atrial fibrillation (CMS/HCC [...] MD LAB BLOOD ORDERABLES Final Resu lt [facility] [address] [place] [address], [place] [phone] * (ABNORMAL) Prothrombin time with INR (10/22/2024 6:16 AM EDT) Pathologist [facility] Protime 36.0(H) 10.6 - 13.9 sec LAB COAGULATION METHOD 10/22/2024 10:31 AM EDT [facility] INR 2.9 LAB COAGULATION METHOD 10/22/2024 10:31 AM EDT [facility] Blood Venous blood specimen / Unknown Venipuncture / Unknown 10/22/2024 6:16 AM EDT 10/22/2024 9:34 AM EDT us Amrita Polanco MD LAB BLOOD ORDERABLES Final Resu lt Performing Organization Address [facility]/ZIP Co de Phone Number [facility] [address] [place] [address], [place] [phone] * (ABNORMAL) Complete blood count (10/22/2024 6:16 AM EDT) [facility] WBC 9.2 4.8 - 10.8 K/[facility] LAB HEMETOLOGY METHOD 10/22/2024 10:30 AM EDT [facility] RBC 3.70(L) 3.80 - 4.80 M/[facility] LAB HEMETOLOGY METHOD 10/22/2024 10:30 AM EDT [facility] Hemoglobin 11.4(L) 11.5 - 16.0 g/dL LAB HEMETOLOGY METHOD 10/22/2024 10:30 AM EDT [facility] Hematocrit 35.8 35.0 - 47.0 % LAB HEMETOLOGY METHOD 10/22/2024 10:30 AM EDT [facility] MCV 96.8 79.0 - 98.0 FL LAB HEMETOLOGY METHOD 10/22/2024 10:30 AM EDT [facility] MCH 30.8 27.0 - 32.0 pcg LAB HEMETOLOGY METHOD 10/22/2024 10:30 AM EDT [facility] MCHC 31.8(L) 32.0 - 37.0 g/dL LAB HEMETOLOGY METHOD 10/22/2024 10:30 AM EDT [facility] RDW 13.8 11.0 - 15.0 % LAB HEMETOLOGY METHOD 10/22/2024 10:30 AM EDT [facility] Platelets 328 130 - 400 K/mcL LAB HEMETOLOGY METHOD 10/22/2024 10:30 AM EDT [facility] MPV 10.9 7.0 - 11.0 FL LAB HEMETOLOGY METHOD 10/22/2024 10:30 AM EDT [facility] NRBC 0.0 <1.0 % LAB HEMETOLOGY METHOD 10/22/2024 10:30 AM EDT [facility] NRBC Absolute 0.00 <0.10 K/mcL LAB HEMETOLOGY METHOD 10/22/2024 10:30 AM [facility] Blood Venous blood specimen / Unknown Venipuncture / Unknown 10/22/2024 6:16 AM EDT 10/22/2024 9:34 AM EDT us Amrita Polanco MD LAB BLOOD ORDERABLES Final Resu lt [facility] [address] [place] [address], documented in this encounter Visit Diagnoses Diagnosis Essential (primary) hypertension Unspecified essential hypertension Unspecified atrial fibrillation (CMS/HCC V24, CMS/HCC V28) Type 2 diabetes mellitus without complications (CMS/HCC V24, CMS/HCC V28) documented in this encounter Care Teams Louver Door Assembler Relationship Specialty Start Date End Date Valeri Lerner DO [address] [place], [place] PCP - General 11/15/14 documented as of this encounter
--- OUTSIDE RECORDS SUMMARY | 2025-06-26 11:44 | XMS_ITS | Encounter Summary ---
Author Organization [employer] Address [address] [place] [address] 7t [place] [address] Care Team Providers Care Wire Harness Design Engineer Name Role Phone Valeri Lerner DO Primary Care Provider [phone] Batsheva Gomez PharmD Unavailable Reason for Visit * Reason Comments Med Refill Encounter Details Date Type Department Care Team (Late st Contact Info) Description 08/28/2022 Refill [facility] MED[facility]INE [address] [place] [address] Valeri Lerner DO [address] [place], [place] [phone] Chronic constipation (Primary Dx) Social History Tobacco [...] 07/04/2025 1:00 PM EST Office Visit [facility] [address] [place] [address] Diana Eric MD [address] [place] [address] documented as of this encounter Visit Diagnoses Diagnosis Chronic constipation- Primary Unspecified constipation documented in this encounter Care Teams Wire Harness Design Engineer Relationship Specialty Start Date End Date Valeri Lerner DO [address] [place], [place] [phone] PCP - General Family Medicine 07/13/12 Batsheva Gomez PharmD [address] [place] [address] Pharmacist Internal Medicine 03/07/24 12/19/24 TUNJI 12/08/23 documented as of this encounter
--- OUTSIDE RECORDS SUMMARY | 2025-06-26 11:44 | XMS_ITS | Encounter Summary ---
Author Organization [facility] Address [address] [place] [address] Care Team Providers Care Teacher Of The Hearing Impaired Name Role Phone Valeri Lerner DO Primary Care Provider [phone]- [phone] Encounter Details Date Type Department Care Team (Latest Contact Info) Description 06/03/2025 Lab Requisition [facility] - Main Lab 299 [facility] [place] [address] Macario Green MD [address] [place] [address] Heart failure, unspecified (CMS/HCC V24, CMS/HCC V28); Essential (primary) hypertension; Paroxysmal atrial fibrillation (CMS/HCC V24, CMS/HCC V28); 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 (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 Social History Tobacco [...] Paroxysmal atrial fibrillation (CMS/HCC V24, CMS/HCC V28) FPC (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 documented in this encounter Results * (ABNORMAL) Prothrombin time with INR (06/03/2025 6:05 AM EST) Protime 17.0(H) 10.6 - 13.9 sec LAB COAGULATION METHOD 06/03/2025 10:43 AM EST [facility] INR 1.4 LAB COAGULATION METHOD 06/03/2025 10:43 AM EST [facility] Blood Venous blood specimen / Unknown Venipuncture / Unknown 06/03/2025 6:05 AM EST 06/03/2025 9:13 AM EST us Macario Green MD LAB BLOOD ORDERABLES Final R esult [facility] [address] [place] [address], documented in this encounter Visit Diagnoses Diagnosis Heart failure, unspecified (CMS/[facility] V24, [facility] V28) Heart failure, unspecified Essential (primary) hypertension Unspecified essential hypertension Paroxysmal atrial fibrillation ([facility] V24, [facility] V28) Atrial fibrillation FPC (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 Long-term (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 documented in this encounter Care Teams Teacher Of The Hearing Impaired Relationship Specialty Start Date End Date Valeri Lerner DO [address] [place] [address] PCP - General 11/15/14 documented as of this encounter
--- OUTSIDE RECORDS SUMMARY | 2025-06-26 11:44 | XMS_ITS | Clinical Summary ---
Author Organization [facility] Address [address] [place] [phone] Phone Care Team Providers Care Power Distribution Engineer Name Role Phone Unavailable Primary Care Provider [...] It is not the complete legal health record.[facility]
--- OUTSIDE RECORDS SUMMARY | 2025-06-26 11:44 | XMS_ITS | Encounter Summary ---
Author Organization [employer] Address [address] [facility] 7t [place] [address] Care Team Providers Care Manager Market Research Name Role Phone Valeri Lerner DO Primary Care Provider + [phone] Encounter Details Date Type Department Care Team ([facility] st Contact Info) Description 12/24/2024 Telephone [facility] MEDICINE [address] [place], [place] [phone] Valeri Lerner DO [address] [place], [place] [phone] Social History Tobacco Use Types Packs/Day Years [...] EST Office Visit [facility] [address] [place] [address] Diana Eric MD [address] [place], [place] [phone] documented as of this encounter Goals Goal [...] as of this encounter Care Teams Manager Market Research Relationship Specialty Start Date End Date Valeri Lerner DO [address] [place] [address] PCP - General Family Medicine 07/13/12 [employer] 12/08/23 documented as of this encounter
--- OUTSIDE RECORDS SUMMARY | 2025-06-26 11:44 | XMS_ITS | Encounter Summary ---
Author Organization [facility] Address [address] [place] [address] Care Team Providers Care Special Agent Group Insurance Name Role Phone Valeri Lerner DO Primary Care Provider [phone]- [phone] Encounter Details Date Type Department Care Team (Late st Contact Info) Description 06/11/2025 Lab Requisition [facility] - Main Lab [address] [facility] [place] [address] Macario Green MD [address] [place] [address] Unspecified atrial fibrillation (CMS/HCC V24, CMS/HCC V28) [...] LAB COAGULATION METHOD 06/12/2025 10:32 AM EST [facility] LAB INR 1.9 LAB COAGULATION METHOD 06/12/2025 10:32 AM EST [facility] Blood Venous blood specimen / Unknown Venipuncture / Unknown 06/12/2025 7:54 AM EST 06/12/2025 10:16 AM EST us Macario Green MD LAB BLOOD ORDERABLES Final R esult [facility] ([facility]) [facility] LAB [address] [place] [address], documented in this encounter Visit Diagnoses Diagnosis Unspecified atrial fibrillation (CMS/HCC V24, CMS/HCC V28) documented in this encounter Care Teams Special Agent Group Insurance Relationship Specialty Start Date End Date Valeri Lerner DO [address] [place] [address] PCP - General 11/15/14 documented as of this encounter
--- OUTSIDE RECORDS SUMMARY | 2025-06-26 11:44 | XMS_ITS | Encounter Summary ---
Author Organization [facility] Address [address] [place] [address] Care Team Providers Care Solutions Sales Consultant Name Role Phone Valeri Lerner DO Primary Care Provider +1- [phone] Encounter Details Date Type Department Care Team (Late st Contact Info) Description 06/10/2025 Lab Requisition [facility] - Main Lab 299 [facility] [place] [address] Macario Green MD [address] [place] [address] Unspecified atrial fibrillation (CMS/HCC V24, CMS/HCC V28) [...] LAB COAGULATION METHOD 06/10/2025 8:21 AM EST [facility] LAB INR 2.5 LAB COAGULATION METHOD 06/10/2025 8:21 AM EST [facility] LAB Blood Venous blood specimen / Unknown Venipuncture / Unknown 06/10/2025 6:10 AM EST 06/10/2025 8:01 AM EST us Macario Green MD LAB BLOOD ORDERABLES Final R esult [facility] ([facility]) [facility] [address] [place] [address], documented in this encounter Visit Diagnoses Diagnosis Unspecified atrial fibrillation (CMS/HCC V24, CMS/HCC V28) documented in this encounter Care Teams Solutions Sales Consultant Relationship Specialty Start Date End Date Valeri Lerner DO [address] [place] [address] PCP - General 11/15/14 documented as of this encounter
--- OUTSIDE RECORDS SUMMARY | 2025-06-26 11:44 | XMS_ITS | Encounter Summary ---
Author Organization [facility] Address [address] [place] [address] Care Team Providers Care Inside Solar Sales Consultant Name Role Phone Valeri Lerner DO Primary Care Provider +1- [phone] Encounter Details Date Type Department Care Team (Late st Contact Info) Description 11/04/2024 Lab Requisition [facility] - Main Lab 299 [facility] [place] [address] Amrita Polanco MD [address] [place] [address] Unspecified atrial fibrillation (CMS/HCC V24, CMS/HCC V28) [...] sec LAB COAGULATION METHOD 11/04/2024 11:56 AM [facility] LAB INR 1.4 LAB COAGULATION METHOD 11/04/2024 11:56 AM [facility] LAB Blood Venous blood specimen / Unknown Venipuncture / Unknown 11/04/2024 8:39 AM EDT 11/04/2024 11:00 AM EDT us Amrita Polanco MD LAB BLOOD ORDERABLES Final Resu lt [facility] ([facility]) [facility] LAB [address] [place] [address], documented in this encounter Visit Diagnoses Diagnosis Unspecified atrial fibrillation (CMS/HCC V24, CMS/HCC V28) documented in this encounter Care Teams Inside Solar Sales Consultant Relationship Specialty Start Date End Date Valeri Lerner DO [address] [place] [address] PCP - General 11/15/14 documented as of this encounter
--- OUTSIDE RECORDS SUMMARY | 2025-06-26 11:44 | XMS_ITS | Encounter Summary ---
Author Organization [facility] Address [address] [place] [address] Care Team Providers Care Assembler Filters Name Role Phone Valeri Lerner DO Primary Care Provider +1- [phone] Encounter Details Date Type Department Care Team (Late st Contact Info) Description 06/04/2025 Lab Requisition [facility] - Main Lab 299 [facility] [place] [address] Macario Green MD [address] [place] [address] Paroxysmal atrial fibrillation (CMS/HCC V24, CMS/HCC V28) [...] sec LAB COAGULATION METHOD 06/04/2025 10:08 AM [facility] LAB INR 1.5 LAB COAGULATION METHOD 06/04/2025 10:08 AM [facility] LAB Blood Venous blood specimen / Unknown Venipuncture / Unknown 06/04/2025 5:27 AM EST 06/04/2025 8:54 AM EST us Macario Green MD LAB BLOOD ORDERABLES Final R esult [facility] ([facility]) [facility] [address] [place] [address], documented in this encounter Visit Diagnoses Diagnosis Paroxysmal atrial fibrillation (CMS/HCC V24, CMS/HCC V28) Atrial fibrillation documented in this encounter Care Teams Assembler Filters Relationship Specialty Start Date End Date Valeri Lerner DO [address] [place] [address] PCP - General 11/15/14 documented as of this encounter
--- OUTSIDE RECORDS SUMMARY | 2025-06-26 11:44 | XMS_ITS | Encounter Summary ---
Author Organization [facility] Address [address] [place] [address] Care Team Providers Care Dairy Tester Name Role Phone Valeri Lerner DO Primary Care Provider +1- [phone] Encounter Details Date Type Department Care Team (Latest Contact Info) Description 05/30/2025 Lab Requisition [facility] - Main Lab [address] [facility] [place] [address] Macario Green MD [address] [place] [address] Type 2 diabetes mellitus with diabetic polyneuropathy [...] V28) Hyperlipidemia, unspecified Chronic atrial fibrillation, unspecified ([facility] V24, [facility] V28) Essential (primary) hypertension care home (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 BASIC METABOLIC PANEL Routine 05/30/2025 6:09 AM EDT Type 2 diabetes mellitus with diabetic polyneuropathy ([facility] V24, [facility] V28) Hyperlipidemia, unspecified Chronic atrial fibrillation, unspecified ([facility] V24, [facility] V28) Essential (primary) hypertension care home (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 documented in this encounter Results * (ABNORMAL) Prothrombin time with INR (05/30/2025 6:09 AM EDT) Protime 15.7(H) 10.6 - 13.9 sec LAB COAGULATION METHOD 05/30/2025 11:16 AM EDT [facility] LAB INR 1.3 LAB COAGULATION METHOD 05/30/2025 11:16 AM EDT [facility] Blood Venous blood specimen / Unknown Venipuncture / Unknown 05/30/2025 6:09 AM EDT 05/30/2025 9:50 AM EDT Macario Green MD LAB BLOOD ORDERABLES Final R esult [facility] LAB [address] [place] [address], * (ABNORMAL) Basic metabolic panel (05/30/2025 6:09 AM EDT) Pathologist [facility] Sodium 140 133 - 145 mmol/L LAB CHEMISTRY METHOD 05/30/2025 11:24 AM EDT [facility] Potassium 4.1 3.5 - 5.5 mmol/L LAB CHEMISTRY METHOD 05/30/2025 11:24 AM EDT [facility] Chloride 102 96 - 110 mmol/L LAB CHEMISTRY METHOD 05/30/2025 11:24 AM EDT [facility] CO2 35(H) 21 - [...] MD LAB BLOOD ORDERABLES Final R esult [facility] [address] [place] [address], * (ABNORMAL) Complete blood count (05/30/2025 6:09 AM EDT) WBC 7.2 4.8 - 10.8 K/mcL LAB HEMETOLOGY METHOD 05/30/2025 11:09 AM [facility] RBC 3.80 3.80 - 4.80 M/mcL LAB HEMETOLOGY METHOD 05/30/2025 11:09 AM [facility] Hemoglobin 11.7 11.5 - 16.0 g/dL LAB HEMETOLOGY METHOD 05/30/2025 11:09 AM [facility] LAB Hematocrit 37.9 35.0 - 47.0 % LAB HEMETOLOGY METHOD 05/30/2025 11:09 AM [facility] LAB MCV 99.5(H) 79.0 - 98.0 FL LAB HEMETOLOGY METHOD 05/30/2025 11:09 AM [facility] LAB MCH 30.7 27.0 - 32.0 pcg LAB HEMETOLOGY METHOD 05/30/2025 11:09 AM [facility] LAB MCHC 30.9(L) 32.0 - 37.0 g/dL LAB HEMETOLOGY METHOD 05/30/2025 11:09 AM [facility] RDW 14.6 11.0 - 15.0 [...] MD LAB BLOOD ORDERABLES Final R esult [facility] ([facility]) [facility] LAB [address] [place] [address], documented in this encounter Visit Diagnoses Diagnosis Type 2 diabetes mellitus with diabetic polyneuropathy (CMS/[facility] V24, [facility] V28) Hyperlipidemia, unspecified Chronic atrial fibrillation, unspecified (CMS/[facility] V24, [facility] V28) Essential (primary) hypertension Unspecified essential hypertension care home (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 Long-term (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 documented in this encounter Care Teams Dairy Tester Relationship Specialty Start Date End Date Valeri Lerner DO [address] [place] [address] PCP - General 11/15/14 documented as of this encounter
--- OUTSIDE RECORDS SUMMARY | 2025-06-26 11:44 | XMS_ITS | Encounter Summary ---
Author Organization [employer] Address [address] [facility] 7t [place] [address] Care Team Providers Care Floor Coverer Name Role Phone Valeri Lerner DO Primary Care Provider Batsheva Gomez PharmD Unavailable [phone] Reason for Visit * Reason Onset Date Comments FYI 10/08/2024 Encounter Details Date Type Department Care Team (Late st Contact Info) Description 10/08/2024 Telephone [facility] MEDICINE [address] [place], [place] [phone] Valeri Lerner DO [address] [place], [place] [phone] Social History Tobacco Use Types Packs/Day Years [...] the past 12 months, has t he [employer] gas, oil or water [employer] threatened to shut off services in [...] will like a callback TODAY from nurse [phone] documented in this encounter Plan of Treatment Upcoming Encounters Date Type Department Care Team (Late st Contact Info) Description 07/04/2025 1:00 PM EST Office Visit [facility] MEDICINE [address] [place] [address] Diana Eric MD [address] [place] [address] documented as of this encounter Goals Goal [...] documented as of this encounter Care Teams Floor Coverer Relationship Specialty Start Date End Date Valeri Lerner DO [address] [place] [address] PCP - General Family Medicine 07/13/12 Batsheva Gomez, CecilyD [address] [place] [address] Pharmacist Internal Medicine 03/07/24 12/19/24 [employer] 12/08/23 documented as of this encounter
--- OUTSIDE RECORDS SUMMARY | 2025-06-26 11:44 | XMS_ITS | Encounter Summary ---
Author Organization [employer] Address [address] [place] [address] 7t [place] [address] Care Team Providers Care Track Repair Worker Name Role Phone Valeri Lerner DO Primary Care Provider +1 [phone] Reason for Visit * Reason Comments Med Refill Encounter Details Date Type Department Care Team (Late st Contact Info) Description 06/22/2025 Refill [facility] MEDICINE 230 [place], [place] [phone] Valeri Lerner DO [address] [place], [place] [phone] Paroxysmal atrial fibrillation (CMS/HCC) (HCC) Social History [...] 1:00 PM EST Office Visit [facility] MEDICINE [address] [place] [address] Diana Eric MD [address] [place] [address] documented as of this encounter Goals Goal Patient Goal Type Associated Problems Recent Progress Patient-Stated? Author Patient will adhere to medication regimen General No Charyia, Batsheva, PharmD Record your blood sugar as directed Result Component No Patricia, Batsheva, PharmD Note: Resume CGM. Ensure sensor is scanned at least once every 8 hours to capture 24H data. Check BG manually, as directed. Hemoglobin A1c < 8 Result Component 7.6( 1:53 PM EDT) No Charyia, Batsheva, PharmD Help patients manage their type 2 diabetes Care Plan Help patients manage their type 2 diabetes No Rollins, Michaela, RN Weekly blood pressure task Care Plan [...] Care Plan Weekly blood pressure task No Ai Baron, OD Weekly blood pressure task Care Plan Weekly blood pressure task No Tod, Ai, OD Patient has diabetic eye disease Care Plan Patient has diabetic eye disease No Tod, Ia, OD Patient has diabetic eye disease Care Plan Patient has diabetic eye disease No Tod, Ai, OD Patient has chronic kidney disease Care Plan Patient has chronic kidney disease No Tod, Ai, OD Patient has chronic kidney disease Care Plan Patient has chronic kidney disease No Tod, Ai, OD documented as of this encounter Visit Diagnoses Diagnosis Paroxysmal atrial [...] 06/20/2025 Patient has chronic kidney disease 06/20/2025 Assessment Noted Time PHQ-9 Depression Total Score: 0 07/15/20 24 11:32 AM EST documented as of this encounter Care Teams Track Repair Worker Relationship Specialty Start Date End Date Valeri Lerner DO [address] [place] [address] PCP - General Family Medicine 07/13/12 [employer] 12/08/23 documented as of this encounter
--- OUTSIDE RECORDS SUMMARY | 2025-06-26 11:44 | XMS_ITS | Patient Health Record ---
Author Organization [facility] Address [address] [facility] [place] [address] Care Team Providers Care Industrial Seamstress Name Role Phone Valeri Lerner Primary Care Provider Keenan Lowery Unavailable [phone] Allergies Allergen (clinical drug ingredient) Drug/Non Drug [...] End Date Status Fluticasone Propionate Active Ipratropium [place] Active Insulin Lispro Activ e Arestin Not-Taking [...] Problem Acquired hammer toe of right foot (4235166141974 105) Other hammer toe(s) (acquired), right foot (M20.41) Active confirmed Problem Type 2 diabetes mellitus with peripheral angiopathy (509732419) Type 2 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) Active confirmed Q7(A), Q8(2B), Q9(1B,2C) Problem Acquired hammer toe of left foot (6197013073919 103) Other hammer toe(s) (acquired), left foot (M20.42) Active confirmed Vital Signs Blood pressure diastolic 65 mm Hg 04/18/2025 Height 5 ft 5 in in 04/18/2025 Blood pressure systolic 140 mm Hg 04/18/2025 Weight 230 lbs 04/18/2025 BMI 38.27 kg/m2 04/18/2025 Procedures Procedure Date Ordered Date Performed Result Body Sit e 31402-IBTSLLU NAIL, 6 OR MORE 08/16/2024 N/A 48885-WJNU SKIN LESIONS, OVER 4 08/16/2024 N/A 52974-YNVZHQL NAIL, 6 OR MORE 01/10/2025 N/A 62455-QSAL SKIN LESIONS, OVER 4 01/10/2025 N/A 12511-QSBGQYD NAIL, 6 OR MORE 04/18/2025 N/A 67275-DHTT SKIN LESIONS, OVER 4 04/18/2025 N/A Encounters Encounter Location Date Provider Diagnosis [address] [address] 08/16/2024 Keenan Dyer Type 2 diabetes mellitus with diabetic peripheral angiopathy without gangrene E11.51 ; Tinea unguium B35.1 ; Pain in right toe(s) M79.674 ; Pain in left toe(s) M79.675 ; Other hammer toe(s) (acquired), left foot M20.42 ; Other hammer toe(s) (acquired), right foot M20.41 and Tinea pedis of both feet B35.[address] [address] 01/10/2025 Keenan Dyer Type 2 diabetes mellitus with diabetic peripheral angiopathy without gangrene E11.51 ; Other hammer toe(s) (acquired), right foot M20.41 ; Tinea unguium B35.1 ; Pain in right toe(s) M79.674 ; Pain in left toe(s) M79.675 ; Other hammer toe(s) (acquired), left foot M20.42 and Tinea pedis of both feet B35.[address] [address] 04/18/2025 Keenan Dyer Type 2 diabetes mellitus with diabetic peripheral angiopathy without gangrene E11.51 ; Tinea unguium B35.1 ; Pain in right toe(s) M79.674 ; Pain in left toe(s) M79.675 and Tinea pedis of both feet B35.[address] [facility] [address] [address] 01/10/2025 Keenan Dyer [facility] [address] [address] 01/10/2025 Keenan Dyer Assessments Encounter Date Diagnosis [...] Treatment Pending Test Test Name Order Date 96761-OTRNOGG NAIL, 6 OR MORE 10/27/2016 38473-XEVVZUQ NAIL, 6 OR MORE 05/09/2017 53130-XDXYYQP NAIL, 6 OR MORE 08/21/2017 01085-MRPZHAR NAIL, 6 OR MORE 01/26/2017 07425-TTNEEYB NAIL, 6 OR MORE 01/29/2018 96983-XITASWE NAIL, 6 OR MORE 07/09/2018 13346-TLPSXEW NAIL, 6 OR MORE 11/22/2018 46712-BTIXVIY NAIL, 6 OR MORE 08/16/2024 84390-QTGYTES NAIL, 6 OR MORE 01/10/2025 00442-JWPVIRS NAIL, 6 OR MORE 04/18/2025 96190-CNLQZEC NAIL, 1-5 12/21/2015 73430-KDKXHCO NAIL, 1-5 05/30/2016 83297-GNADIHV NAIL, 1-5 02/18/2015 34658-YLRSVXF NAIL, 1-5 05/27/2015 96113-GGUDGLM NAIL, 1-5 09/23/2015 41673-Hakzkoor Plate 02/18/2015 80000-Prkxhkam Plate 05/30/2016 79804-Mvohcvuv Plate 12/21/2015 28975-Ggpxttju Plate 09/23/2015 20551-Powmouhe Plate 10/27/2016 28819-Obrjtneb Plate 01/07/2019 56565-KDVI SKIN LESIONS, OVER 4 07/09/20 18 21072-GFLG SKIN LESIONS, OVER 4 05/09/20 17 58708-UCYU SKIN LESIONS, OVER 4 04/18/20 25 85876-WJHY SKIN LESIONS, OVER 4 11/23/19 19 52967-HWGB SKIN LESIONS, OVER 4 01/11/20 25 57401-YGJD SKIN LESIONS, OVER 4 08/16/19 25 35877-EWHL SKIN LESIONS, OVER 4 10/28/19 17 43927-WCGB SKIN LESIONS, OVER 4 01/27/20 17 78632-JOZH SKIN LESIONS, OVER 4 08/21/19 18 90680-LIFH SKIN LESIONS, OVER 4 01/30/20 18 69201-MHZI SKIN LESIONS, 2 TO 4 02/19/20 15 57011-RZVG SKIN LESIONS, 2 TO 4 05/27/20 15 32312-NZUB SKIN LESIONS, 2 TO 4 09/23/19 16 71688-YEJT SKIN LESIONS, 2 TO 4 12/21/19 16 09998-NVXE SKIN LESIONS, 2 TO 4 05/30/20 16 96311-Krnx. Subungual Hematoma 9 O4612-FQMVVKYD DYSTROPHIC NAILS ANY # J0457-BKGFGHKZ DYSTROPHIC NAILS ANY # T2308-TDEWAWMR DYSTROPHIC NAILS ANY # H5478-IGAWBOIA DYSTROPHIC NAILS ANY # Next Appt Details Provider Name:Keenan Islas Manisha , 08/15/2025 12:45:00 PM, [address] [place], [address], Insurance Providers Payer Name Payer Address Payer Phone Subscriber Number Group Number Insured Name Patient Relationship to Insured Coverage Start Date Coverage End Date [facility] Medicare-309 [address] [address] [place] [address] [id number] Nikky Morgan Self - patient is the insured Medical (General) History Medical History History ICD Code Anxiety Arthritis asthma Back,Hip,and Knee pain Broken bones Diabetic Stroke Thyroid disorder blood clots Gout Heart disease Surgical History Surgery Date(Month/Year) cataract surgery left eye 11/09/2018 Hospitalization History Reason Date(Month/Year) [facility] for a cough 2018
--- OUTSIDE RECORDS SUMMARY | 2025-06-26 11:44 | XMS_ITS | Encounter Summary ---
Author Organization [facility] Address [id number] [place] [id number] Care Team Providers Care Nail Artist Name Role Phone Valeri Lerner DO Primary Care Provider [phone] Encounter Details Date Type Department Care Team (Late st Contact Info) Description 06/09/2025 Lab Requisition [facility] - Main Lab [address] [facility] [employer] [place] [address] Macario Green MD [address] [place] [address] Unspecified atrial fibrillation (CMS/HCC V24, CMS/HCC V28) [...] LAB COAGULATION METHOD 06/09/2025 10:54 AM EST [facility] LAB INR 3.1 LAB COAGULATION METHOD 06/09/2025 10:54 AM [facility] LAB Blood Venous blood specimen / Unknown Venipuncture / Unknown 06/09/2025 8:05 AM EST 06/09/2025 10:05 AM EST us Macario Green MD LAB BLOOD ORDERABLES Final R esult [facility] ([facility] [place] [address] [place] [address], documented in this encounter Visit Diagnoses Diagnosis Unspecified atrial fibrillation (CMS/HCC V24, CMS/HCC V28) documented in this encounter Care Teams Nail Artist Relationship Specialty Start Date End Date Valeri Lerner DO [address] [place] [address] PCP - General 11/15/14 documented as of this encounter
[2025-06-26 11:50] LABS: Alanine Aminotransferase 21 U/L (0-31); Albumin Level 4.0 g/dL (3.5-5.0); Alkaline Phosphatase 106 U/L (39-117); Anion Gap 14 (12-20); Aspartate Amino Transferase 35 U/L (5-31); Blood Urea Nitrogen 17 mg/dL (9-16); Calcium 9.8 mg/dL (8.4-10.2); Carbon Dioxide 24 mmol/L (22-29); Chloride 108 mmol/L (96-108); Creatinine Clr Calc Pharmacy 36.6; Estimated Glomerular Filt Rate 48; Magnesium 1.8 mg/dL (1.6-2.6); Potassium 4.6 mmol/L (3.3-5.1); Sodium 141 mmol/L (135-145); Total Protein 7.9 g/dL (6.5-8.0)
[2025-06-26 11:55] LABS: Troponin-I High Sensitivity 29.7 ng/L (<3.5-17.0)
--- NOTE | 2025-06-26 14:17 | PC.NURSE ---
Patient O2 going down to 88% RA. Denies SOB Applied 1L O2 NC 92%
[2025-06-26 14:18] VITALS: BP 174/88; PULSE 61; RESP 16; TEMP 36.9; O2SAT 92
[2025-06-26 15:06] LABS: Appearance Urine Clear; Glucose Urine UA Negative (Negative); PH 6.5 (5.0-9.0); Specific Gravity - Urine 1.010 (1.005-1.025); UMIC TRIGGER UACC YES
--- NOTE | 2025-06-26 17:17 | PC.NURSE ---
O2 was not on patient. Pt SPO2 98%
--- NOTE | 2025-06-26 17:22 | PC.NURSE ---
Pt noted to dip down to 89% with minimal exertion moving around in bed. Provider aware
[2025-06-26 17:30] VITALS: BP 172/53
[2025-06-26] MEDS: Furosemide 100 MG/10 ML VIAL 60 MG IVPUSH (17:30)
[2025-06-26 17:31] VITALS: PULSE 60; RESP 16; TEMP 36.9; O2SAT 96
[2025-06-26 17:32] LABS: Troponin-I High Sensitivity 25.2 ng/L (<3.5-17.0)
--- NOTE | 2025-06-26 17:54 | HO.NURTONUR ---
89 year old female with complex medical hx including CHF presented to ED initially for concerns of flank pain and urinary symptoms. CT cleared concern for kidney stone. Per pt family, noted to have increased episodes of SOB at home. Recently put on Lasix 60mg PO. Pt SPO2 noted to dip with movement in bed to 88-89%. Pt awake and alert, breathing equal and unlabored. Denies CP. Currently on 1L via NC with SPO2 96-98%. Kinyarwanda speaking. Pure wick in place. On monitor car operator with rate of 50s-60s. Typically uses walker at home, has not ambulated while in ED. Currently in stretcher with family at bedside.
--- NOTE | 2025-06-26 18:01 | PM.IMHP ---
History of Present Illness Date of Service: 06/26/25 Chief Complaint: dyspnea This history was taken in [place] from the patient. 89yo F with DM2, HFrEF, hypothyroidism, HTN, pAF and DVT on warfarin with hx IVC filter placement; recently admitted here 05/23-05/27/25 for CHF exacerbation; started on Jardiance on discharge; metoprolol succinate stopped due to bradycardia. Seen in Cardiology clinic follow-up 06/13/25 with reinitiation of metoprolol succinate at lower dosage.. Came in today with several days of flank pain and dyspnea. No chest pain. No leg swelling. Does not weigh self daily, so weight gain unknown. Found to have pulmonary edema on CXR and desaturatation to 89% with any movement, so currently on 1L O2. Given 60 mg IV furosemide. Review of Systems Review of Systems: Yes all other systems are reviewed and are negative [facility] Medical History Prolonged QT interval Prolonged QT interval Heart block Hypertension CHF (congestive heart failure) Pneumonia Multiple falls Acute on chronic respiratory failure with hypoxemia Weakness Urgency incontinence Menopause Well woman exam Current use of anticoagulant therapy Stenosis of carotid artery Diabetes type 2, controlled Sepsis Gastroenteritis Hypoxia Pneumonia Urinary incontinence Obesity due to excess calories Type 2 diabetes mellitus with diabetic polyneuropathy Senile cataract of left eye Essential hypertension Hyperlipemia Paroxysmal A-fib Anxiety disorder Hypothyroidism Coronary artery disease History of cerebrovascular accident Osteoarthritis Osteopenia Deep vein thrombosis Hearing loss Family History Father Heart disease CVD (cardiovascular disease) Mother Diabetes Surgical History H/O colonoscopy H/O breast surgery S/P IVC filter History of bilateral tubal ligation Social History Household Members: Family and None Housing: House Do you presently have visiting nurse or other home services: Yes Alcohol intake: never Comment: Luda WATSON Patient Tobacco Use Status: Former Tobacco user Tobacco use type: Cigarette Smoked in Last 30 Days: No Use of substances other than those prescribed or required for medical reasons: No Advance Directives: Yes Advance Directives on File: Yes Advance Directives Date on File: 12/02/22 Do you have a plan to hurt others: No Plan service: No Current occupational status: unemployed Sexual orientation: Straight/Heterosexual Gender identity: Female Meds Allergies Allergy/AdvReac Type Severity Reaction Status Date / Time shellfish derived Allergy Severe Hives Verified 06/26/25 10:53 aspirin (Aspirin) Allergy Mild Gastrointestinal Verified 06/26/25 10:53 Upset ibuprofen Allergy Unknown Unknown Verified 06/26/25 10:53 oxycodone (From PERCOCET) Allergy Unknown PALPITATION Verified 06/26/25 10:53 S Robitussin Cold Cough+ Chest Allergy Intermediate hives Uncoded 06/26/25 10:53 SEAFOOD Allergy Intermediate hives Uncoded 06/26/25 10:53 Active Medications: Current Medications Furosemide (Furosemide 100 Mg/10 Ml Vial) 60 mg IVPUSH BID@0900,1800 GER; Protocol Home Medications ?Medication ?Instructions ?Recorded ?Confirmed ?Last Taken ?Type atorvastatin 20 mg tablet 20 mg PO BEDTIME 05/21/20 06/13/25 05/22/25 History blood sugar diagnostic #10 ea 05/21/20 06/13/25 Unknown History cholecalciferol (vitamin D3) 50 50 mcg PO DAILY 05/21/20 06/13/25 05/22/25 History mcg (2,000 unit) tablet fluticasone propionate 50 2 spray intranasal DAILY 05/21/20 06/13/25 05/22/25 History mcg/actuation nasal spray,suspension lancets #100 ea 05/21/20 06/13/25 Unknown History levothyroxine 100 mcg tablet 100 mcg PO DAILY@0600 05/21/20 06/13/25 05/22/25 History omeprazole 20 mg capsule,delayed 20 mg PO BID@0630,1630 05/21/20 06/13/25 05/22/25 History release pen needle, diabetic 32 gauge x #50 ea 05/21/20 06/13/25 Unknown History sertraline 50 mg tablet 50 mg PO DAILY 05/21/20 06/13/25 05/22/25 History nebulizers (Sidestream misc) #1 ea 05/14/21 06/13/25 Unknown History acetaminophen 650 mg 650 mg PO Q8H PRN Pain/Fever 02/09/24 06/13/25 Unknown History tablet,extended release ciclopirox 0.77 % topical cream 1 appl topical BID PRN fungal 09/16/24 06/13/25 05/22/25 History infection insulin glargine 100 unit/mL (3 26 unit subcut DAILY 09/16/24 06/13/25 Unknown History mL) subcutaneous pen (Lantus Solostar U-100 Insulin) semaglutide 0.25 mg or 0.5 mg (2 0.5 mg subcut DURON 09/16/24 06/13/25 05/18/25 History mg/3 mL) subcutaneous pen injector (Ozempic) solifenacin 10 mg tablet 10 mg PO DAILY 09/16/24 06/13/25 05/22/25 History warfarin 4 mg tablet 4 mg PO DAILY@1800 10/11/24 06/13/25 10/10/24 History fluticasone 500 mcg-salmeterol 50 1 ea inhalation BID 02/13/25 06/13/25 05/22/25 History mcg/dose blistr powdr for inhalation (Alexela Inhub) metformin 500 mg tablet,extended 500 mg PO BIDWM 02/13/25 06/13/25 05/22/25 History release 24 hr multivitamin-iron sulfate 15 1 tab PO DAILY 02/13/25 06/13/25 05/22/25 History mg-folic acid 400 mcg tablet (Tab-A-Judith Multivitamin w-iron) albuterol sulfate 90 mcg/actuation 2 puff inhalation Q6H PRN wheezing 05/23/25 06/13/25 Unknown History aerosol inhaler diclofenac sodium 1 % topical gel 4 g topical QID PRN Pain 05/23/25 06/13/25 Unknown History magnesium oxide 400 mg (241.3 mg 400 mg PO DAILY 05/23/25 06/13/25 05/22/25 History magnesium) tablet Physical Exam Vital Signs and Narrative: Vital Signs: Last Vital Signs Temp 98.4 F 06/26/25 17:31 Pulse 60 06/26/25 17:31 Resp 16 06/26/25 17:31 BP 172/53 H 06/26/25 17:30 Pulse Ox 96 06/26/25 17:31 O2 Del Method Nasal Cannula 06/26/25 17:31 O2 Flow Rate 1 06/26/25 17:31 BMI result Body Mass Index 44.3 Gen: in no acute distress but short of breath with minimal movements HEENT: sclera anicteric, moist mucus membranes Neck: supple, JVD present Lungs: diminished Heart: irregular, no murmurs Abd: soft, non-tender, non-distended, obese Ext: 1+ BLE edema Skin: warm/well-perfused Neuro: alert and oriented x3, no focal findings Psych: appropriate affect Results Labs 06/26/25 11:12 06/26/25 11:12 Labs: Laboratory Results - last 24 hr 06/26/25 06/26/25 06/26/25 11:12 14:58 16:50 MCV 94.3 MCH 30.6 MCHC 32.4 RDW 14.2 Plt Count 168 MPV 10.8 Immature Gran % (Auto) 0.2 Neut % (Auto) 69.8 Lymph % (Auto) 19.7 L Stevens % (Auto) 5.6 Eos % (Auto) 4.1 H Baso % (Auto) 0.6 Lymph # (Auto) 1.6 Stevens # (Auto) 0.5 Eos # (Auto) 0.3 Baso # (Auto) 0.1 Abs Immat Gran (auto) 0.02 Absolute Neuts (auto) 5.6 Absolute Nucleated RBC 0.000 Nucleated RBC % (auto) 0.0 Anion Gap 14 Estim Creat Clear Calc 36.6 Estimated GFR 48 Random Glucose 121 H Calcium 9.8 Magnesium 1.8 Total Bilirubin 0.5 AST 35 H ALT 21 Alkaline Phosphatase 106 Troponin I High Sens 29.7 H 25.2 H NT-Pro-B Natriuret Pep 3055.8 H Total Protein 7.9 Albumin 4.0 Urine Color Yellow Urine Appearance Clear Urine pH 6.5 Ur Specific [place] 1.010 Urine Protein 30 (1+) H Urine Glucose (UA) Negative Urine Ketones Negative Urine Blood Trace H Urine Nitrite Negative Ur Leukocyte Esterase Negative Urine RBC 0-2 Urine WBC 0-5 Ur Squamous Epith Cells 0-2 Urine Bacteria None Seen Hyaline Casts 0-2 COVID-19 (MUSHTAQ) Negative COVID-19 Clin Com See Note Influenza Type A (DANIELLE) Negative Influenza Type B (DANIELLE) Negative Influenza A & B Note See Note Assessment and Plan (1) Acute on chronic combined systolic and diastolic ACC/AHA stage C congestive heart failure: Status: Acute Plan 89yo F with DM2, HFrEF, hypothyroidism, HTN, pAF and DVT on warfarin with hx IVC filter placement presenting with dyspnea and hypoxia, found to have decompensated HF acute/chronic HF with recovered LVEF, R-sided HF - admit to telemetry, give furosemide IV, monitor BMP/Mg/NT-pro-BNP/wts/I+O, continue empagliflozin + metoprolol succinate - TTE 05/24/25: '1. Low normal LV ejection fraction 50-55% with restrictive filling defect 2. Normal LV size with [id number] RV systolic dysfunction by TAPSE 3. Moderate biatrial enlargement 4. Normal cardiac valvular Dopplers 5. Moderately elevated right ventricular systolic pressure with moderately elevated right atrial pressures 6. No gross pericardial effusion' acute hypoxic respiratory failure - supplemental O2, wean as tolerated pAF: continue metoprolol succinate; check INR; on warfarin mood disorder: sertraline HLD: statin DM2: hold MTF, give basal-bolus insulin and Jardiance as above hypothyroidism: continue levothyroxine VTE prophylaxis: warfarin dispo: TBD code status: full I anticipate that the patient will stay at least 2 midnights as an inpatient in the hospital due to the above reasons. It is neither reasonable nor safe to care for them in a less acute setting. Quality Stroke Does the patient have a stroke diagnosis?: No VTE Prior VTE?: No VTE Risk Level:: Medical - moderate - high VTE Device Contraindication: N/A - Device Ordered VTE Drug Contraindication: N/A - Med Ordered
[2025-06-26 19:20] LABS: INTERNATIONAL NORM RATIO 3.4 (0.9-1.1); Prothrombin Time 40.6 SEC (11.2-13.5)
[2025-06-27] VITALS (10 sets, daily range): BP systolic 111–161; BP diastolic 45–72; PULSE 52–72; RESP 12–18; TEMP 36.3–37.1; O2SAT 94–98; BMI 41.5
[2025-06-27 04:44] LABS: INTERNATIONAL NORM RATIO 3.5 (0.9-1.1); Prothrombin Time 41.3 SEC (11.2-13.5)
[2025-06-27 04:55] LABS: Anion Gap 15 (12-20); Blood Urea Nitrogen 16 mg/dL (9-16); Calcium 10.0 mg/dL (8.4-10.2); Carbon Dioxide 26 mmol/L (22-29); Chloride 108 mmol/L (96-108); Creatinine Clr Calc Pharmacy 36.2; Estimated Glomerular Filt Rate 47; Magnesium 1.7 mg/dL (1.6-2.6); Potassium 3.7 mmol/L (3.3-5.1); Sodium 145 mmol/L (135-145)
[2025-06-27 04:58] LABS: NT Pro B Type Natriuretic Pept 3452.4 pg/mL (<300)
[2025-06-27] MEDS: Furosemide 100 MG/10 ML VIAL 60 MG IVPUSH ×2 (08:17→16:32)
[2025-06-27] MEDS: Insulin Glargine,Hum.rec.anlog 100 UNIT/ML 10 ML VIAL 12 UNIT SUBCUT (08:17)
[2025-06-27 08:26] LABS: Glucose, Whole Blood 94 mg/dL (60-115)
[2025-06-27] MEDS: Metoprolol Succinate ER 12.5 MG HALFTAB.ER.24H PO (08:52)
--- NOTE | 2025-06-27 12:13 | PC.NURSE ---
son Samuel [phone]
--- NOTE | 2025-06-27 12:57 | PHA.MEDREC ---
Addendum entered by Jt Herrera PharmD 06/27/25 13:56: MED REC CHECKED BY [facility] Addendum entered by Jt Herrera PharmD 06/27/25 13:52: MED REC CHECKED BY [facility] Original Note: Pharmacy Consult ? Medication Reconciliation Pharmacy has completed the medication reconciliation. Spoke with pt, utilizing post production assistant and pt poor historian and said to call her daughter Catarina ([phone]). Spoke with Catarina and she was unable to confirm pt medications at this time and gave me pt VN (Willian [phone]), spoke with Willian and he was not currently in a position to confirm pt medications at this time and gave me a phone number to [facility] ([phone]) to get a med list for the pt; Willian was able to confirm pt Lantus 26 units at daily and pt warfarin 4mg dose, INR was tested Saturday 06/23 (pt at 2.6) and was told to now take 1 1/2 tab (6mg) until next INR testing 06/30. Got list from [facility] and utilized that to confirm med rec.
--- NOTE | 2025-06-27 12:58 | MHC.CM.PN ---
PT HAS [employer] ARCHITECT MON TO FRI 9 TO 1 SHE IS ACTIVBE WITH [employer] ,HER SON KATE WILL TAKE PT HOME DC PLAN HOME
--- NOTE | 2025-06-27 13:50 | HO.PM.IMPN ---
Subjective Subjective Date of Service: 06/27/25 Interval History: dyspnea improving, no chest pain This history was taken in [place] from the patient. Review of Systems Review of Systems: Yes all other systems are reviewed and are negative Physical Exam Vital Signs: Vital Signs: Last Vital Signs Temp 98.7 F 06/27/25 13:45 Pulse 67 06/27/25 13:45 Resp 14 06/27/25 13:45 BP 111/45 L 06/27/25 13:45 Pulse Ox 96 06/27/25 13:45 O2 Del Method Nasal Cannula 06/27/25 13:45 O2 Flow Rate 2 06/27/25 13:45 BMI result Body Mass Index 44.3 Gen: in no acute distress HEENT: sclera anicteric, moist mucus membranes Neck: supple, JVD present Lungs: diminished Heart: irregular, no murmurs Abd: soft, non-tender, non-distended, obese Ext: 1+ BLE edema Skin: warm/well-perfused Neuro: alert and oriented x3, no focal findings Psych: appropriate affect Objective Data Active Medications Acetaminophen (Acetaminophen 325 Mg Tablet) 650 mg PO Q6H PRN PRN Reason: Pain, Mild 1-3,fever,headache Atorvastatin Calcium (Atorvastatin Calcium 20 Mg Tablet) 20 mg PO BEDTIME [facility] Last Admin: 06/26/25 23:06 Dose: 20 mg Documented By: BRAYDEN Calcium Carbonate (Calcium Carbonate 750 Mg Tab.Chew) 750 mg PO Q4H PRN PRN Reason: Heartburn Empagliflozin (Empagliflozin 10 Mg Tablet) 10 mg PO DAILY [facility] Last Admin: 06/27/25 08:17 Dose: 10 mg Documented By: KEVAN Furosemide (Furosemide 100 Mg/10 Ml Vial) 60 mg IVPUSH BID@0900,1800 [facility]; Protocol Last Admin: 06/27/25 08:17 Dose: 60 mg Documented By: KEVAN Insulin Glargine (Insulin Glargine,Hum.Rec.Anlog 100 Unit/Ml 10 Ml Vial) 12 unit SUBCUT DAILY [facility] Last Admin: 06/27/25 08:17 Dose: 12 unit Documented By: KEVAN Levothyroxine Sodium (Levothyroxine Sodium 100 Mcg Tablet) 100 mcg PO DAILY@0600 [facility] Last Admin: 06/27/25 05:41 Dose: 100 mcg Documented By: HO.FERRINC Magnesium Hydroxide (Milk Of Magnesia 30 Ml Oral.Susp) 30 ml PO DAILY PRN PRN Reason: Constipation Melatonin (Melatonin 3 Mg Tablet) 6 mg PO BEDTIME PRN PRN Reason: Insomnia Metoprolol Succinate (Metoprolol Succinate Er 12.5 Mg Halftab.Er.24h) 12.5 mg PO DAILY [facility]; Protocol Last Admin: 06/27/25 08:52 Dose: 12.5 mg Documented By: KEVAN Ondansetron HCl (Ondansetron Hcl 4 Mg/2 Ml Vial) 4 mg IVPUSH Q8H PRN PRN Reason: Nausea and Vomiting Sodium Chloride (0.9 % Sodium Chloride Flush 3 Ml Syringe) 3 ml IVFLUSH QSHIFT [facility] Last Admin: 06/27/25 07:14 Dose: Not Given Documented By: KEVAN Non-Admin Reason: IV Running Labs 06/26/25 11:12 06/27/25 04:30 Labs: Laboratory Results - last 24 hr 06/26/25 06/26/25 06/26/25 11:12 14:58 16:50 PT INR Anion Gap Estim Creat Clear Calc Estimated GFR POC Glucose Random Glucose Calcium Magnesium Troponin I High Sens 25.2 H NT-Pro-B Natriuret Pep 3055.8 H Urine Color Yellow Urine Appearance Clear Urine pH 6.5 Ur Specific [place] 1.010 Urine Protein 30 (1+) H Urine Glucose (UA) Negative Urine Ketones Negative Urine Blood Trace H Urine Nitrite Negative Ur Leukocyte Esterase Negative Urine RBC 0-2 Urine WBC 0-5 Ur Squamous Epith Cells 0-2 Urine Bacteria None Seen Hyaline Casts 0-2 06/26/25 06/27/25 06/27/25 18:44 04:30 08:14 PT 40.6 H 41.3 H INR 3.4 H 3.5 H Anion Gap 15 Estim Creat Clear Calc 36.2 Estimated GFR 47 POC Glucose 94 Random Glucose 101 Calcium 10.0 Magnesium 1.7 Troponin I High Sens NT-Pro-B Natriuret Pep 3452.4 H Urine Color Urine Appearance Urine pH Ur Specific [place] Urine Protein Urine Glucose (UA) Urine Ketones Urine Blood Urine Nitrite Ur Leukocyte Esterase Urine RBC Urine WBC Ur Squamous Epith Cells Urine Bacteria Hyaline Casts Assessment and Plan (1) CHF (congestive heart failure): Status: Acute Plan d2 for 89yo F with DM2, HFrEF, hypothyroidism, HTN, pAF and DVT on warfarin with hx IVC filter placement presenting with dyspnea and hypoxia, found to have decompensated HF acute/chronic HF with recovered LVEF, R-sided HF - admit to telemetry, give furosemide IV, monitor BMP/Mg/NT-pro-BNP/wts/I+O, continue empagliflozin + metoprolol succinate - TTE 05/24/25: '1. Low normal LV ejection fraction 50-55% with restrictive filling defect 2. Normal LV size with [id number]-om-clinynno RV systolic dysfunction by TAPSE 3. Moderate biatrial enlargement 4. Normal cardiac valvular Dopplers 5. Moderately elevated right ventricular systolic pressure with moderately elevated right atrial pressures 6. No gross pericardial effusion' acute hypoxic respiratory failure - supplemental O2, wean as tolerated pAF: continue metoprolol succinate; hold warfarin for INR 3.5 today, recheck tomorrow mood disorder: sertraline HLD: statin DM2: hold MTF, give basal-bolus insulin and Jardiance as above hypothyroidism: continue levothyroxine VTE prophylaxis: warfarin dispo: TBD In my clinical judgment, the patient requires continued inpatient hospitalization for the following reasons: IV diuresis Quality Stroke Does the patient have a stroke diagnosis?: No VTE Prior VTE?: No VTE Risk Level:: Medical - moderate - high VTE Device Contraindication: N/A - Device Ordered VTE Drug Contraindication: N/A - Med Ordered
--- NOTE | 2025-06-27 16:07 | PM.CNCAR ---
History of Present Illness History of Present Illness Date of Service: 06/27/25 Requesting physician: Ann Galan Chief complaint: CHF Narrative: Pleasant 89-year-old lady presenting with abdominal pain and shortness of breath. She was noticed to have congestive heart failure and we were consulted. It appears she had episode of congestive heart failure in April. At that time she presented with atrial flutter which was a new diagnosis. She is on Coumadin and INR is therapeutic currently but she had low INR of 1.6 on May 28 and 1.9 on May 27. She is saying that she is feeling somewhat better. She is still appears to be short of breath. She is on supplemental oxygen. Telemetry is showing atrial flutter with heart rate in 60s. [facility] Past Medical History Medical History Prolonged QT interval Prolonged QT interval Heart block Hypertension CHF (congestive heart failure) Pneumonia Multiple falls Acute on chronic respiratory failure with hypoxemia Weakness Urgency incontinence Menopause Well woman exam Current use of anticoagulant therapy Stenosis of carotid artery Diabetes type 2, controlled Sepsis Gastroenteritis Hypoxia Pneumonia Urinary incontinence Obesity due to excess calories Type 2 diabetes mellitus with diabetic polyneuropathy Senile cataract of left eye Essential hypertension Hyperlipemia Paroxysmal A-fib Anxiety disorder Hypothyroidism Coronary artery disease History of cerebrovascular accident Osteoarthritis Osteopenia Deep vein thrombosis Hearing loss Family History Family History Father Heart disease CVD (cardiovascular disease) Mother Diabetes Surgical History Surgical History H/O colonoscopy H/O breast surgery S/P IVC filter History of bilateral tubal ligation Social History Social History Household Members: Family and None Housing: House Do you presently have visiting nurse or other home services: Yes Alcohol intake: never Comment: Luda WATSON Patient Tobacco Use Status: Former Tobacco user Tobacco use type: Cigarette Advance Directives Date on File: 07/01/22 service: No Current occupational status: unemployed Sexual orientation: Straight/Heterosexual Gender identity: Female Meds Allergies Allergy/AdvReac Type Severity Reaction Status Date / Time shellfish derived Allergy Severe Hives Verified 06/26/25 10:53 aspirin (Aspirin) Allergy Mild Gastrointestinal Verified 06/26/25 10:53 Upset ibuprofen Allergy Unknown Unknown Verified 06/26/25 10:53 oxycodone (From PERCOCET) Allergy Unknown PALPITATION Verified 06/26/25 10:53 S Robitussin Cold Cough+ Chest Allergy Intermediate hives Uncoded 06/26/25 10:53 SEAFOOD Allergy Intermediate hives Uncoded 06/26/25 10:53 Active Medications: Current Medications Acetaminophen (Acetaminophen 325 Mg Tablet) 650 mg PO Q6H PRN PRN Reason: Pain, Mild 1-3,fever,headache Albuterol Sulfate (Albuterol Sulfate 90 Mcg 8 Gm Inhaler) 2 puff INHALE Q6H PRN PRN Reason: Wheezing Atorvastatin Calcium (Atorvastatin Calcium 20 Mg Tablet) 20 mg PO BEDTIME [facility] Last Admin: 06/26/25 23:06 Dose: 20 mg Calcium Carbonate (Calcium Carbonate 750 Mg Tab.Chew) 750 mg PO Q4H PRN PRN Reason: Heartburn Docusate Sodium (Docusate Sodium 100 Mg Capsule) 100 mg PO BID [facility] Empagliflozin (Empagliflozin 10 Mg Tablet) 10 mg PO DAILY [facility] Last Admin: 06/27/25 08:17 Dose: 10 mg Fluticasone/Vilanterol (Fluticasone/Vilanterol 200/25 Blst.W.Dev) 1 puff INHALE RDAILY [facility] Furosemide (Furosemide 100 Mg/10 Ml Vial) 60 mg IVPUSH BID@0900,1800 [facility]; Protocol Last Admin: 06/27/25 08:17 Dose: 60 mg Insulin Glargine (Insulin Glargine,Hum.Rec.Anlog 100 Unit/Ml 10 Ml Vial) 12 unit SUBCUT DAILY [facility] Last Admin: 06/27/25 08:17 Dose: 12 unit Levothyroxine Sodium (Levothyroxine Sodium 100 Mcg Tablet) 100 mcg PO DAILY@0600 [facility] Last Admin: 06/27/25 05:41 Dose: 100 mcg Loratadine (Loratadine 10 Mg Tablet) 10 mg PO DAILY [facility] Magnesium Hydroxide (Milk Of Magnesia 30 Ml Oral.Susp) 30 ml PO DAILY PRN PRN Reason: Constipation Melatonin (Melatonin 3 Mg Tablet) 6 mg PO BEDTIME PRN PRN Reason: Insomnia Metoprolol Succinate (Metoprolol Succinate Er 12.5 Mg Halftab.Er.24h) 12.5 mg PO DAILY [facility]; Protocol Last Admin: 06/27/25 08:52 Dose: 12.5 mg Multivitamins/Vitamin C (Multivitamin Tablet) 1 tab PO DAILY [facility] Omeprazole (Omeprazole 20 Mg Capsule.Dr) 20 mg PO BID@0630,1630 [facility] Ondansetron HCl (Ondansetron Hcl 4 Mg/2 Ml Vial) 4 mg IVPUSH Q8H PRN PRN Reason: Nausea and Vomiting Polyethylene Glycol (Polyethylene Glycol 3350 17 Gm Powd.Pack) 17 gm PO DAILY [facility] Sertraline HCl (Sertraline Hcl 50 Mg Tablet) 50 mg PO DAILY [facility] Sodium Chloride (0.9 % Sodium Chloride Flush 3 Ml Syringe) 3 ml IVFLUSH QSHIFT [facility] Last Admin: 06/27/25 07:14 Dose: Not Given Tolterodine Tartrate (Tolterodine Tartrate La 4 Mg Cap.Er.24h) 4 mg PO DAILY [facility] Vitamin D (Cholecalciferol (Vitamin D3) 25 Mcg Tablet) 50 mcg PO DAILY [facility] Warfarin Sodium (Warfarin Sodium 6 Mg Tablet) 6 mg PO DAILY@1800 [facility] Home Medications ?Medication ?Instructions ?Recorded ?Confirmed ?Last Taken ?Type atorvastatin 20 mg tablet 20 mg PO BEDTIME 05/21/20 06/27/25 05/22/25 History blood sugar diagnostic #10 ea 05/21/20 06/13/25 Unknown History cholecalciferol (vitamin D3) 50 50 mcg PO DAILY 05/21/20 06/27/25 05/22/25 History mcg (2,000 unit) tablet fluticasone propionate 50 2 spray intranasal DAILY 05/21/20 06/27/25 05/22/25 History mcg/actuation nasal spray,suspension lancets #100 ea 05/21/20 06/13/25 Unknown History levothyroxine 100 mcg tablet 100 mcg PO DAILY@0600 05/21/20 06/27/25 05/22/25 History omeprazole 20 mg capsule,delayed 20 mg PO BID@0630,1630 05/21/20 06/27/25 05/22/25 History release pen needle, diabetic 32 gauge x #50 ea 05/21/20 06/13/25 Unknown History sertraline 50 mg tablet 50 mg PO DAILY 05/21/20 06/27/25 05/22/25 History nebulizers (Sidestream misc) #1 ea 05/14/21 06/13/25 Unknown History insulin glargine 100 unit/mL (3 26 unit subcut DAILY 09/16/24 06/27/25 Unknown History mL) subcutaneous pen (Lantus Solostar U-100 Insulin) semaglutide 0.25 mg or 0.5 mg (2 0.5 mg subcut DURON 09/16/24 06/27/25 05/18/25 History mg/3 mL) subcutaneous pen injector (Ozempic) solifenacin 10 mg tablet 10 mg PO DAILY 09/16/24 06/27/25 05/22/25 History warfarin 4 mg tablet 6 mg PO DAILY@1800 10/11/24 06/27/25 10/10/24 History fluticasone 500 mcg-salmeterol 50 1 ea inhalation BID 02/13/25 06/27/25 05/22/25 History mcg/dose blistr powdr for inhalation (Wixela Inhub) metformin 500 mg tablet,extended 500 mg PO BID 02/13/25 06/27/25 05/22/25 History release 24 hr albuterol sulfate 90 mcg/actuation 2 puff inhalation Q6H PRN wheezing 05/23/25 06/27/25 Unknown History aerosol inhaler diclofenac sodium 1 % topical gel 4 g topical QID PRN Pain 05/23/25 06/27/25 Unknown History magnesium oxide 400 mg (241.3 mg 400 mg PO DAILY 05/23/25 06/27/25 05/22/25 History magnesium) tablet acetaminophen 325 mg tablet 650 mg PO TID PRN Pain/Fever 06/27/25 06/27/25 Unknown History cetirizine 10 mg tablet 5 mg PO DAILY 06/27/25 06/27/25 Unknown History ciclopirox 8 % topical solution 1 appl topical BID 06/27/25 06/27/25 Unknown History docusate sodium 100 mg capsule 100 mg PO BID 06/27/25 06/27/25 Unknown History geriatric [id number] 1 tab PO DAILY 06/27/25 06/27/25 Unknown History metoprolol succinate 25 mg 12.5 mg PO BID 06/27/25 06/27/25 Unknown History tablet,extended release 24 hr Physical Exam Vital Signs: Vital Signs: Last Vital Signs Temp 97.3 F 06/27/25 15:59 Pulse 65 06/27/25 15:59 Resp 18 06/27/25 15:59 BP 141/60 H 06/27/25 15:59 Pulse Ox 95 06/27/25 15:59 O2 Del Method Nasal Cannula 06/27/25 15:59 O2 Flow Rate 2 06/27/25 15:59 BMI result Body Mass Index 44.3 GENERAL APPEARANCE: in no acute distress, pleasant. NECK: no carotid bruit, mild jugular venous distention. SKIN: no suspicious lesions, warm and dry. HEART: no murmurs, regular rate and rhythm. LUNGS: Crackles at bases. ABDOMEN: soft, nontender. EXTREMITIES: 1+ edema. PERIPHERAL PULSES: equal. NEUROLOGIC: No gross deficits, AAO X 3 Objective Labs and Meds 06/26/25 11:12 06/27/25 04:30 Lab results: Laboratory Results - last 24 hr 06/26/25 06/26/25 06/27/25 16:50 18:44 04:30 PT 40.6 H 41.3 H INR 3.4 H 3.5 H Sodium 145 Potassium 3.7 Chloride 108 Carbon Dioxide 26 Anion Gap 15 BUN 16 Creatinine 1.09 Estim Creat Clear Calc 36.2 Estimated GFR 47 POC Glucose Random Glucose 101 Calcium 10.0 Magnesium 1.7 Troponin I High Sens 25.2 H NT-Pro-B Natriuret Pep 3452.4 H 06/27/25 08:14 PT INR Sodium Potassium Chloride Carbon Dioxide Anion Gap BUN Creatinine Estim Creat Clear Calc Estimated GFR POC Glucose 94 Random Glucose Calcium Magnesium Troponin I High Sens NT-Pro-B Natriuret Pep Assessment and Plan (1) CHF (congestive heart failure): Qualifiers: Heart failure chronicity: acute on chronic Heart failure type: unspecified Qualified Code(s): I50.9 - Heart failure, unspecified Status: Acute Plan Pleasant 89 year lady presenting with congestive heart failure. In April she presented with congestive heart failure and that time was diagnosed with atrial flutter. She has been rate controlled and has been on anticoagulation with Coumadin. Clinically she appears to be mildly overloaded. She is still has peripheral edema. Continue IV diuretics today. We will potentially transition her to oral diuretics in the next 24 hours. If there is any family available then we can have discussions about cardioversion as a potential management option for her recurrent heart failure because atrial flutter can be the reason for her CHF episodes. Thank you for allowing me to participate in the care of your patient. Please feel free to contact me if you have any questions. Procedures Date of Service Date of Service: 06/27/25
[2025-06-27 20:17] LABS: Glucose, Whole Blood 152 mg/dL (60-115)
[2025-06-27] MEDS: 0.9 % Sodium Chloride Flush 3 ML SYRINGE IVFLUSH (21:13)
[2025-06-28] VITALS (9 sets, daily range): BP systolic 132–158; BP diastolic 60–72; PULSE 58–86; RESP 16–18; TEMP 36.4–37.1; O2SAT 95–97
[2025-06-28 07:02] LABS: Glucose, Whole Blood 109 mg/dL (60-115)
[2025-06-28 07:17] LABS: INTERNATIONAL NORM RATIO 3.1 (0.9-1.1); Prothrombin Time 37.1 SEC (11.2-13.5)
[2025-06-28 07:37] LABS: Anion Gap 15 (12-20); Blood Urea Nitrogen 18 mg/dL (9-16); Calcium 9.8 mg/dL (8.4-10.2); Carbon Dioxide 33 mmol/L (22-29); Chloride 101 mmol/L (96-108); Creatinine Clr Calc Pharmacy 33.6; Estimated Glomerular Filt Rate 45; Magnesium 1.8 mg/dL (1.6-2.6); Potassium 3.5 mmol/L (3.3-5.1); Sodium 145 mmol/L (135-145)
[2025-06-28] MEDS: Fluticasone/Vilanterol 200/25 BLST.W.DEV 1 PUFF INHALE (08:00)
[2025-06-28] MEDS: 0.9 % Sodium Chloride Flush 3 ML SYRINGE IVFLUSH ×2 (09:53→17:32)
[2025-06-28] MEDS: Insulin Glargine,Hum.rec.anlog 100 UNIT/ML 10 ML VIAL 12 UNIT SUBCUT (09:53)
[2025-06-28] MEDS: Metoprolol Succinate ER 12.5 MG HALFTAB.ER.24H PO (09:53)
[2025-06-28 11:01] LABS: Glucose, Whole Blood 174 mg/dL (60-115)
--- NOTE | 2025-06-28 12:02 | P.PNIM_ITS ---
Subjective Subjective Date of Service: 06/28/25 Interval History: This history was taken in Czech from the patient. Dyspnea improved No cough No chest pain Review of Systems Review of Systems: Yes all other systems are reviewed and are negative Physical Exam 2 Vital Signs: Vital Signs: Last Vital Signs Temp 98.2 F 06/28/25 11:13 Pulse 65 06/28/25 11:13 Resp 18 06/28/25 11:13 BP 132/60 06/28/25 11:13 Pulse Ox 97 06/28/25 11:13 O2 Del Method Nasal Cannula 06/28/25 11:13 O2 Flow Rate 2 06/28/25 11:13 BMI result Body Mass Index 41.5 Gen: in no acute distress HEENT: sclera anicteric, moist mucus membranes Neck: supple, no JVD Lungs: diminished Heart: irregular, slow, no murmurs Abd: soft, non-tender, non-distended, obese Ext: trace BLE edema Skin: warm/well-perfused Neuro: alert and oriented x3, no focal findings Psych: appropriate affect Objective Data Active Medications Acetaminophen (Acetaminophen 325 Mg Tablet) 650 mg PO Q6H PRN PRN Reason: Pain, Mild 1-3,fever,headache Last Admin: 06/28/25 09:53 Dose: 650 mg Documented By: ROSELYN Albuterol Sulfate (Albuterol Sulfate 90 Mcg 8 Gm Inhaler) 2 puff INHALE Q6H PRN PRN Reason: Wheezing Atorvastatin Calcium (Atorvastatin Calcium 20 Mg Tablet) 20 mg PO BEDTIME [facility] Last Admin: 06/27/25 21:11 Dose: 20 mg Documented By: AMAYASIALISON Bumetanide (Bumetanide 1 Mg Tablet) 2 mg PO BID@0800,1700 [facility]; Protocol Calcium Carbonate (Calcium Carbonate 750 Mg Tab.Chew) 750 mg PO Q4H PRN PRN Reason: Heartburn Dextrose (Dextrose 50 % 25 Gm/50 Ml Syringe) 25 gm IVPUSH Q15M PRN; Protocol PRN Reason: per Hypoglycemia Standing Ord. Docusate Sodium (Docusate Sodium 100 Mg Capsule) 100 mg PO BID [facility] Last Admin: 06/28/25 09:53 Dose: 100 mg Documented By: ROSELYN Empagliflozin (Empagliflozin 10 Mg Tablet) 10 mg PO DAILY [facility] Last Admin: 06/28/25 09:53 Dose: 10 mg Documented By: ROSELYN Fluticasone/Vilanterol (Fluticasone/Vilanterol 200/25 Blst.W.Dev) 1 puff INHALE RDAILY [facility] Last Admin: 06/28/25 08:00 Dose: 1 puff Documented By: BRADEN Glucose (Glucose Gel 15 Gm Gel..Gram.) 15 gm PO Q15M PRN; Protocol PRN Reason: per Hypoglycemia Standing Ord. Insulin Glargine (Insulin Glargine,Hum.Rec.Anlog 100 Unit/Ml 10 Ml Vial) 12 unit SUBCUT DAILY [facility] Last Admin: 06/28/25 09:53 Dose: 12 unit Documented By: ROSELYN Insulin Human Lispro (Insulin Lispro 100 Unit/Ml 3 Ml Vial) 0 unit SUBCUT QIDACHS [facility]; Protocol Last Admin: 06/28/25 11:22 Dose: 2 unit Documented By: ROSELYN Levothyroxine Sodium (Levothyroxine Sodium 100 Mcg Tablet) 100 mcg PO DAILY@0600 [facility] Last Admin: 06/28/25 06:10 Dose: 100 mcg Documented By: CORBY Loratadine (Loratadine 10 Mg Tablet) 10 mg PO DAILY [facility] Last Admin: 06/28/25 09:53 Dose: 10 mg Documented By: ROSELYN Magnesium Hydroxide (Milk Of Magnesia 30 Ml Oral.Susp) 30 ml PO DAILY PRN PRN Reason: Constipation Melatonin (Melatonin 3 Mg Tablet) 6 mg PO BEDTIME PRN PRN Reason: Insomnia Metoprolol Succinate (Metoprolol Succinate Er 12.5 Mg Halftab.Er.24h) 12.5 mg PO DAILY [facility]; Protocol Last Admin: 06/28/25 09:53 Dose: 12.5 mg Documented By: ROSELYN Multivitamins/Vitamin C (Multivitamin Tablet) 1 tab PO DAILY [facility] Last Admin: 06/28/25 09:53 Dose: 1 tab Documented By: ROSELYN Omeprazole (Omeprazole 20 Mg Capsule.) 20 mg PO BID@0630,1630 [facility] Last Admin: 06/28/25 06:10 Dose: 20 mg Documented By: CORBY Ondansetron HCl (Ondansetron Hcl 4 Mg/2 Ml Vial) 4 mg IVPUSH Q8H PRN PRN Reason: Nausea and Vomiting Polyethylene Glycol (Polyethylene Glycol 3350 17 Gm Powd.Pack) 17 gm PO DAILY [facility] Last Admin: 06/28/25 09:53 Dose: 17 gm Documented By: ROSELYN Sertraline HCl (Sertraline Hcl 50 Mg Tablet) 50 mg PO DAILY [facility] Last Admin: 06/28/25 09:53 Dose: 50 mg Documented By: ROSELYN Sodium Chloride (0.9 % Sodium Chloride Flush 3 Ml Syringe) 3 ml IVFLUSH QSHIFT [facility] Last Admin: 06/28/25 09:53 Dose: 3 ml Documented By: ROSELYN Tolterodine Tartrate (Tolterodine Tartrate La 4 Mg Cap.Er.24h) 4 mg PO DAILY [facility] Last Admin: 06/28/25 09:53 Dose: 4 mg Documented By: ROSELYN Vitamin D (Cholecalciferol (Vitamin D3) 25 Mcg Tablet) 50 mcg PO DAILY [facility] Last Admin: 06/28/25 09:53 Dose: 50 mcg Documented By: ROSELYN Warfarin Sodium (Warfarin Sodium 6 Mg Tablet) 6 mg PO DAILY@1800 [facility] Labs 06/26/25 11:12 06/28/25 06:02 Labs: Laboratory Results - last 24 hr 06/27/25 06/28/25 06/28/25 20:11 06:02 06:57 PT 37.1 H INR 3.1 H Anion Gap 15 Estim Creat Clear Calc 33.6 Estimated GFR 45 POC Glucose 152 H 109 Random Glucose 109 Calcium 9.8 Magnesium 1.8 NT-Pro-B Natriuret Pep 1394.6 H 06/28/25 10:52 PT INR Anion Gap Estim Creat Clear Calc Estimated GFR POC Glucose 174 H Random Glucose Calcium Magnesium NT-Pro-B Natriuret Pep Assessment and Plan (1) CHF (congestive heart failure): Status: Acute Plan d3 for 89yo F with DM2, HFrEF, hypothyroidism, HTN, pAF and DVT on warfarin with hx IVC filter placement presenting with dyspnea and hypoxia, found to have decompensated HF acute/chronic HF with recovered LVEF, R-sided HF - change IV furosemide to PO bumetanide 2 mg bid, monitor BMP/Mg/NT-pro-BNP/wts/I+O, continue empagliflozin + metoprolol succinate - TTE 05/24/25: '1. Low normal LV ejection fraction 50-55% with restrictive filling defect 2. Normal LV size with [id number] RV systolic dysfunction by TAPSE 3. Moderate biatrial enlargement 4. Normal cardiac valvular Dopplers 5. Moderately elevated right ventricular systolic pressure with moderately elevated right atrial pressures 6. No gross pericardial effusion' - Cardiology to discuss benefits/risks of cardioversion with pt's family acute hypoxic respiratory failure - supplemental O2, wean as tolerated pAF: continue metoprolol succinate; hold warfarin for INR 3.1 today, recheck tomorrow mood disorder: sertraline HLD: statin DM2: hold MTF, give basal-bolus insulin and Jardiance as above hypothyroidism: continue levothyroxine VTE prophylaxis: warfarin dispo: PT eval In my clinical judgment, the patient requires continued inpatient hospitalization for the following reasons: CHF, placement Total time managing care of this patient today: 35 minutes. Quality Stroke Does the patient have a stroke diagnosis?: No VTE Prior VTE?: No VTE Risk Level:: Medical - moderate - high VTE Device Contraindication: N/A - Device Ordered VTE Drug Contraindication: N/A - Med Ordered
--- NOTE | 2025-06-28 12:17 | PM.PNCARD ---
Subjective Subjective Date of Service: 06/28/25 Interval history: Seen examined at bedside. She is saying she is feeling little better. Continues to be on IV diuretics at this point. BNP improving. Physical Exam Vital Signs: Last Vital Signs Temp 98.2 F 06/28/25 11:13 Pulse 65 06/28/25 11:13 Resp 18 06/28/25 11:13 BP 132/60 06/28/25 11:13 Pulse Ox 97 06/28/25 11:13 O2 Del Method Nasal Cannula 06/28/25 11:13 O2 Flow Rate 2 06/28/25 11:13 BMI result Body Mass Index 41.5 GENERAL APPEARANCE: in no acute distress, pleasant. NECK: no carotid bruit, mild jugular venous distention. SKIN: no suspicious lesions, warm and dry. HEART: no murmurs, regular rate and rhythm. LUNGS: Clear to auscultation. ABDOMEN: soft, nontender. EXTREMITIES: 1+ edema. PERIPHERAL PULSES: equal. NEUROLOGIC: No gross deficits, AAO X 3 Objective Labs and Meds 06/26/25 11:12 06/28/25 06:02 Lab results: Laboratory Results - last 24 hr 06/27/25 06/28/25 06/28/25 20:11 06:02 06:57 PT 37.1 H INR 3.1 H Sodium 145 Potassium 3.5 Chloride 101 Carbon Dioxide 33 H Anion Gap 15 BUN 18 H Creatinine 1.13 Estim Creat Clear Calc 33.6 Estimated GFR 45 POC Glucose 152 H 109 Random Glucose 109 Calcium 9.8 Magnesium 1.8 NT-Pro-B Natriuret Pep 1394.6 H 06/28/25 10:52 PT INR Sodium Potassium Chloride Carbon Dioxide Anion Gap BUN Creatinine Estim Creat Clear Calc Estimated GFR POC Glucose 174 H Random Glucose Calcium Magnesium NT-Pro-B Natriuret Pep Progress Note: A&P Assessment and plan (1) Acute on chronic combined systolic and diastolic ACC/AHA stage C congestive heart failure: Status: Acute Assessment and Plan: 89-year-old lady presenting with congestive heart failure. She had episode of congestive heart failure in April and was noticed to be in atrial flutter. He continues to be in atrial flutter and is presenting with recurrent heart failure. Diuresing and overall clinically improving. Heart rate well controlled in flutter currently. She is therapeutic with Coumadin. Potentially can be transitioned to oral diuretics tomorrow. It appears she was not on any diuretics at home. Can be started on 40 mg of Lasix from tomorrow. If family comes in we will have discussion about cardioversion as atrial flutter can be the cause that she developed heart failure and is getting recurrent heart failure episodes. Thank you for allowing me to participate in the care of your patient. Please feel free to contact me if you have any questions. (2) Permanent atrial fibrillation: Status: Acute Time Spent With Patient Time: Total time managing care of this patient today ____ minutes. Progress Note: Quality Stroke Does the patient have a stroke diagnosis?: No Procedures Date of Service Date of Service: 06/28/25
[2025-06-28 16:04] LABS: Glucose, Whole Blood 144 mg/dL (60-115)
[2025-06-28 19:35] LABS: Glucose, Whole Blood 159 mg/dL (60-115)
[2025-06-29] MEDS: 0.9 % Sodium Chloride Flush 3 ML SYRINGE IVFLUSH ×3 (01:13→17:00)
[2025-06-29 03:45] VITALS: BP 152/72; PULSE 48; RESP 18; TEMP 36.9; O2SAT 97
[2025-06-29 07:01] LABS: Glucose, Whole Blood 124 mg/dL (60-115)
[2025-06-29 07:16] VITALS: BP 135/62; PULSE 61; RESP 18; TEMP 36.3; O2SAT 95
[2025-06-29 08:12] LABS: INTERNATIONAL NORM RATIO 2.9 (0.9-1.1); Prothrombin Time 34.8 SEC (11.2-13.5)
[2025-06-29 08:24] LABS: Anion Gap 12 (12-20); Blood Urea Nitrogen 22 mg/dL (9-16); Calcium 9.8 mg/dL (8.4-10.2); Carbon Dioxide 32 mmol/L (22-29); Chloride 102 mmol/L (96-108); Creatinine Clr Calc Pharmacy 35.9; Estimated Glomerular Filt Rate 49; Magnesium 1.9 mg/dL (1.6-2.6); Potassium 3.5 mmol/L (3.3-5.1); Sodium 142 mmol/L (135-145)
[2025-06-29 08:31] LABS: NT Pro B Type Natriuretic Pept 822.5 pg/mL (<300)
[2025-06-29 09:15] VITALS: BP 135/62; PULSE 61
[2025-06-29] MEDS: Metoprolol Succinate ER 12.5 MG HALFTAB.ER.24H PO (09:15)
[2025-06-29] MEDS: Insulin Glargine,Hum.rec.anlog 100 UNIT/ML 10 ML VIAL 12 UNIT SUBCUT (09:16)
[2025-06-29] MEDS: Lidocaine 4 % Patch ADH..PATCH 1 PATCH TRANSDERMA (10:00)
[2025-06-29 11:04] LABS: Glucose, Whole Blood 179 mg/dL (60-115)
[2025-06-29 11:14] VITALS: BP 138/65; PULSE 56; RESP 18; TEMP 36.4; O2SAT 96
--- NOTE | 2025-06-29 12:30 | MHC.CM.PN ---
PT is recommending STR. CM met with Patient and her Daughter/Secondary HCP/[place]. Patient was not home prior to admission; she was at [facility] and she does not want to return there. Per Patient/family's request, referrals are being made to [facility].
--- NOTE | 2025-06-29 12:43 | PM.PNCARD ---
Subjective Subjective Date of Service: 06/29/25 Interval history: Seen and examined at bedside. Detailed discussion done with the son and daughter at bedside. She is doing better and we discussed whether she should get cardioversion. After discussion he has decided that we continue medical management and she will have further discussions on follow-up in the clinic. Physical Exam Vital Signs: Last Vital Signs Temp 97.5 F 06/29/25 11:14 Pulse 56 06/29/25 11:14 Resp 18 06/29/25 11:14 BP 138/65 06/29/25 11:14 Pulse Ox 96 06/29/25 11:14 O2 Del Method Nasal Cannula 06/29/25 11:14 O2 Flow Rate 1 06/29/25 11:14 BMI result Body Mass Index 41.5 GENERAL APPEARANCE: in no acute distress, pleasant. NECK: no carotid bruit, mild jugular venous distention. SKIN: no suspicious lesions, warm and dry. HEART: no murmurs, regular rate and rhythm. LUNGS: Clear to auscultation. ABDOMEN: soft, nontender. EXTREMITIES: no edema. PERIPHERAL PULSES: equal. NEUROLOGIC: No gross deficits, AAO X 3 Objective Labs and Meds 06/26/25 11:12 06/29/25 07:16 Lab results: Laboratory Results - last 24 hr 06/28/25 06/28/25 06/29/25 16:00 19:14 06:55 Hold Purple Top PT INR Sodium Potassium Chloride Carbon Dioxide Anion Gap BUN Creatinine Estim Creat Clear Calc Estimated GFR POC Glucose 144 H 159 H 124 H Random Glucose Calcium Magnesium NT-Pro-B Natriuret Pep 06/29/25 06/29/25 07:16 10:57 Hold Purple Top SEE NOTE PT 34.8 H INR 2.9 H Sodium 142 Potassium 3.5 Chloride 102 Carbon Dioxide 32 H Anion Gap 12 BUN 22 H Creatinine 1.06 Estim Creat Clear Calc 35.9 Estimated GFR 49 POC Glucose 179 H Random Glucose 118 H Calcium 9.8 Magnesium 1.9 NT-Pro-B Natriuret Pep 822.5 H Progress Note: A&P Assessment and plan (1) Acute on chronic combined systolic and diastolic ACC/AHA stage C congestive heart failure: Status: Acute Plan 89-year-old lady presenting with congestive heart failure. She had episode of congestive heart failure in April and was noticed to be in atrial flutter. He continues to be in atrial flutter and is presenting with recurrent heart failure. Diuresing and overall clinically improving. Heart rate well controlled in flutter currently. She is therapeutic with Coumadin. Change to oral diuretics today. Detailed discussion with daughter and son at bedside, we discussed about cardioversion as a possibility. After discussion she decided that we will be medically managing current for now and we will continue discussions as outpatient for cardioversion. Follow up with Dr. Bradshaw after discharge. Thank you for allowing me to participate in the care of your patient. Please feel free to contact me if you have any questions. Time Spent With Patient Time: Total time managing care of this patient today ____ minutes. Progress Note: Quality Stroke Does the patient have a stroke diagnosis?: No Procedures Date of Service Date of Service: 06/29/25
--- NOTE | 2025-06-29 13:59 | P.PNIM_ITS ---
Subjective Subjective Date of Service: 06/29/25 Interval History: This history was taken in Icelandic from the patient. Dyspnea improved Family declines CV but willing to reconsider as outpt especially if pt has recurrent CHF symptoms Review of Systems Review of Systems: Yes all other systems are reviewed and are negative Physical Exam 2 Vital Signs: Vital Signs: Last Vital Signs Temp 97.5 F 06/29/25 11:14 Pulse 56 06/29/25 11:14 Resp 18 06/29/25 11:14 BP 138/65 06/29/25 11:14 Pulse Ox 96 06/29/25 11:14 O2 Del Method Nasal Cannula 06/29/25 11:14 O2 Flow Rate 1 06/29/25 11:14 BMI result Body Mass Index 41.5 Gen: in no acute distress HEENT: sclera anicteric, moist mucus membranes Neck: supple, no JVD Lungs: diminished Heart: irregular, no murmurs Abd: soft, non-tender, non-distended, obese Ext: trace BLE edema Skin: warm/well-perfused Neuro: alert and oriented x3, no focal findings Psych: appropriate affect Objective Data Active Medications Acetaminophen (Acetaminophen 325 Mg Tablet) 650 mg PO Q6H PRN PRN Reason: Pain, Mild 1-3,fever,headache Last Admin: 06/28/25 21:22 Dose: 650 mg Documented By: CORBY Albuterol Sulfate (Albuterol Sulfate 90 Mcg 8 Gm Inhaler) 2 puff INHALE Q6H PRN PRN Reason: Wheezing Atorvastatin Calcium (Atorvastatin Calcium 20 Mg Tablet) 20 mg PO BEDTIME [facility] Last Admin: 06/28/25 21:22 Dose: 20 mg Documented By: CORBY Bumetanide (Bumetanide 1 Mg Tablet) 2 mg PO DAILY [facility]; Protocol Calcium Carbonate (Calcium Carbonate 750 Mg Tab.Chew) 750 mg PO Q4H PRN PRN Reason: Heartburn Dextrose (Dextrose 50 % 25 Gm/50 Ml Syringe) 25 gm IVPUSH Q15M PRN; Protocol PRN Reason: per Hypoglycemia Standing Ord. Docusate Sodium (Docusate Sodium 100 Mg Capsule) 100 mg PO BID [facility] Last Admin: 06/29/25 09:16 Dose: 100 mg Documented By: ROSELYN Empagliflozin (Empagliflozin 10 Mg Tablet) 10 mg PO DAILY [facility] Last Admin: 06/29/25 09:16 Dose: 10 mg Documented By: ROSELYN Fluticasone/Vilanterol (Fluticasone/Vilanterol 200/25 Blst.W.Dev) 1 puff INHALE RDAILY [facility] Last Admin: 06/29/25 07:50 Dose: Not Given Documented By: BRADEN Non-Admin Reason: Patient Asleep Glucose (Glucose Gel 15 Gm Gel..Gram.) 15 gm PO Q15M PRN; Protocol PRN Reason: per Hypoglycemia Standing Ord. Insulin Glargine (Insulin Glargine,Hum.Rec.Anlog 100 Unit/Ml 10 Ml Vial) 12 unit SUBCUT DAILY [facility] Last Admin: 06/29/25 09:16 Dose: 12 unit Documented By: ROSELYN Insulin Human Lispro (Insulin Lispro 100 Unit/Ml 3 Ml Vial) 0 unit SUBCUT QIDACHS [facility]; Protocol Last Admin: 06/29/25 11:34 Dose: 2 unit Documented By: ROSELYN Levothyroxine Sodium (Levothyroxine Sodium 100 Mcg Tablet) 100 mcg PO DAILY@0600 [facility] Last Admin: 06/29/25 05:38 Dose: 100 mcg Documented By: REILLY Lidocaine (Lidocaine 4 % Patch Adh..Patch) 1 patch TRANSDERMA DAILY [facility]; Protocol Last Admin: 06/29/25 10:00 Dose: 1 patch Documented By: ROSELYN Loratadine (Loratadine 10 Mg Tablet) 10 mg PO DAILY [facility] Last Admin: 06/29/25 09:15 Dose: 10 mg Documented By: ROSELYN Magnesium Hydroxide (Milk Of Magnesia 30 Ml Oral.Susp) 30 ml PO DAILY PRN PRN Reason: Constipation Melatonin (Melatonin 3 Mg Tablet) 6 mg PO BEDTIME PRN PRN Reason: Insomnia Metoprolol Succinate (Metoprolol Succinate Er 12.5 Mg Halftab.Er.24h) 12.5 mg PO DAILY [facility]; Protocol Last Admin: 06/29/25 09:15 Dose: 12.5 mg Documented By: ROSELYN Multivitamins/Vitamin C (Multivitamin Tablet) 1 tab PO DAILY [facility] Last Admin: 06/29/25 09:15 Dose: 1 tab Documented By: ROSELYN Omeprazole (Omeprazole 20 Mg Sven.) 20 mg PO BID@0630,1630 [facility] Last Admin: 06/29/25 05:38 Dose: 20 mg Documented By: REILLY Ondansetron HCl (Ondansetron Hcl 4 Mg/2 Ml Vial) 4 mg IVPUSH Q8H PRN PRN Reason: Nausea and Vomiting Polyethylene Glycol (Polyethylene Glycol 3350 17 Gm Powd.Pack) 17 gm PO DAILY [facility] Last Admin: 06/29/25 09:16 Dose: 17 gm Documented By: ROSELYN Sertraline HCl (Sertraline Hcl 50 Mg Tablet) 50 mg PO DAILY [facility] Last Admin: 06/29/25 09:16 Dose: 50 mg Documented By: ROSELYN Sodium Chloride (0.9 % Sodium Chloride Flush 3 Ml Syringe) 3 ml IVFLUSH QSHIFT [facility] Last Admin: 06/29/25 09:16 Dose: 3 ml Documented By: ROSELYN Tolterodine Tartrate (Tolterodine Tartrate La 4 Mg Cap.Er.24h) 4 mg PO DAILY [facility] Last Admin: 06/29/25 09:15 Dose: 4 mg Documented By: ROSELYN Vitamin D (Cholecalciferol (Vitamin D3) 25 Mcg Tablet) 50 mcg PO DAILY [facility] Last Admin: 06/29/25 09:16 Dose: 50 mcg Documented By: ROSELYN Warfarin Sodium (Warfarin Sodium 6 Mg Tablet) 6 mg PO DAILY@1800 [facility] Last Admin: 06/28/25 17:31 Dose: 6 mg Documented By: ROSELYN Labs 06/26/25 11:12 06/29/25 07:16 Labs: Laboratory Results - last 24 hr 06/28/25 06/28/25 06/29/25 16:00 19:14 06:55 Hold Purple Top PT INR Anion Gap Estim Creat Clear Calc Estimated GFR POC Glucose 144 H 159 H 124 H Random Glucose Calcium Magnesium NT-Pro-B Natriuret Pep 06/29/25 06/29/25 07:16 10:57 Hold Purple Top SEE NOTE PT 34.8 H INR 2.9 H Anion Gap 12 Estim Creat Clear Calc 35.9 Estimated GFR 49 POC Glucose 179 H Random Glucose 118 H Calcium 9.8 Magnesium 1.9 NT-Pro-B Natriuret Pep 822.5 H Assessment and Plan (1) CHF (congestive heart failure): Status: Acute Plan d4 for 89yo F with DM2, HFrEF, hypothyroidism, HTN, pAF and DVT on warfarin with hx IVC filter placement presenting with dyspnea and hypoxia, found to have decompensated HF acute/chronic HF with recovered LVEF, R-sided HF - continue bumetanide 2 mg once daily; negative 4.3L this admission; continue empagliflozin + metoprolol succinate - TTE 05/24/25: '1. Low normal LV ejection fraction 50-55% with restrictive filling defect 2. Normal LV size with wtth-vc-aokstfmt RV systolic dysfunction by TAPSE 3. Moderate biatrial enlargement 4. Normal cardiac valvular Dopplers 5. Moderately elevated right ventricular systolic pressure with moderately elevated right atrial pressures 6. No gross pericardial effusion' - outpt f/u to consider cardioversion acute hypoxic respiratory failure - supplemental O2, wean as tolerated pAF: continue metoprolol succinate; resume warfarin, INR 2.9 today mood disorder: sertraline HLD: statin DM2: hold MTF, give basal-bolus insulin and Jardiance as above hypothyroidism: continue levothyroxine VTE prophylaxis: warfarin dispo: PT- STR recommended In my clinical judgment, the patient requires continued inpatient hospitalization for the following reasons: placement Total time managing care of this patient today: 35 minutes. Quality Stroke Does the patient have a stroke diagnosis?: No VTE Prior VTE?: No VTE Risk Level:: Medical - moderate - high VTE Device Contraindication: N/A - Device Ordered VTE Drug Contraindication: N/A - Med Ordered
[2025-06-29 15:12] VITALS: BP 157/73; PULSE 71; RESP 16; TEMP 36.1; O2SAT 95
[2025-06-29 16:31] LABS: Glucose, Whole Blood 121 mg/dL (60-115)
[2025-06-29 19:17] VITALS: BP 130/68; PULSE 92; RESP 16; TEMP 37.2; O2SAT 92
[2025-06-29 20:44] LABS: Glucose, Whole Blood 177 mg/dL (60-115)
[2025-06-29] MEDS: Milk of Magnesia 30 ML ORAL.SUSP PO (21:40)
[2025-06-30] VITALS (7 sets, daily range): BP systolic 121–161; BP diastolic 63–84; PULSE 51–81; RESP 18; TEMP 36.1–36.6; O2SAT 91–97
[2025-06-30] MEDS: 0.9 % Sodium Chloride Flush 3 ML SYRINGE IVFLUSH ×4 (04:47→21:39)
[2025-06-30] MEDS: Fluticasone/Vilanterol 200/25 BLST.W.DEV 1 PUFF INHALE (07:54)
[2025-06-30 08:09] LABS: Glucose, Whole Blood 149 mg/dL (60-115)
[2025-06-30 08:35] LABS: INTERNATIONAL NORM RATIO 2.8 (0.9-1.1); Prothrombin Time 33.7 SEC (11.2-13.5)
[2025-06-30] MEDS: Metoprolol Succinate ER 12.5 MG HALFTAB.ER.24H PO (09:06)
[2025-06-30] MEDS: Insulin Glargine,Hum.rec.anlog 100 UNIT/ML 10 ML VIAL 12 UNIT SUBCUT (09:07)
[2025-06-30] MEDS: Lidocaine 4 % Patch ADH..PATCH 1 PATCH TRANSDERMA (09:08)
[2025-06-30 11:53] LABS: Glucose, Whole Blood 180 mg/dL (60-115)
--- NOTE | 2025-06-30 11:58 | P.PNIM_ITS ---
Subjective Subjective Date of Service: 06/30/25 Interval History: This history was taken in Sinhala from the patient. C/o anterior L shoulder pain relieved by lidocaine patch Dyspnea improved Review of Systems Review of Systems: Yes all other systems are reviewed and are negative Physical Exam 2 Vital Signs: Vital Signs: Last Vital Signs Temp 97.1 F 06/30/25 08:00 Pulse 51 06/30/25 08:00 Resp 18 06/30/25 08:00 BP 161/69 H 06/30/25 08:00 Pulse Ox 95 06/30/25 08:00 O2 Del Method Room Air 06/30/25 08:00 O2 Flow Rate 1 06/30/25 03:25 BMI result Body Mass Index 41.5 Gen: in no acute distress HEENT: sclera anicteric, moist mucus membranes Neck: supple, no JVD Lungs: diminished Heart: irregular, no murmurs Abd: soft, non-tender, non-distended, obese Ext: trace BLE edema Skin: warm/well-perfused Neuro: alert and oriented x3, no focal findings Psych: appropriate affect Objective Data Active Medications Acetaminophen (Acetaminophen 325 Mg Tablet) 650 mg PO Q6H PRN PRN Reason: Pain, Mild 1-3,fever,headache Last Admin: 06/29/25 21:41 Dose: 650 mg Documented By: REILLY Albuterol Sulfate (Albuterol Sulfate 90 Mcg 8 Gm Inhaler) 2 puff INHALE Q6H PRN PRN Reason: Wheezing Atorvastatin Calcium (Atorvastatin Calcium 20 Mg Tablet) 20 mg PO BEDTIME [facility] Last Admin: 06/29/25 21:40 Dose: 20 mg Documented By: REILLY Bumetanide (Bumetanide 1 Mg Tablet) 2 mg PO DAILY [facility]; Protocol Last Admin: 06/30/25 09:06 Dose: 2 mg Documented By: MINESH Calcium Carbonate (Calcium Carbonate 750 Mg Tab.Chew) 750 mg PO Q4H PRN PRN Reason: Heartburn Dextrose (Dextrose 50 % 25 Gm/50 Ml Syringe) 25 gm IVPUSH Q15M PRN; Protocol PRN Reason: per Hypoglycemia Standing Ord. Docusate Sodium (Docusate Sodium 100 Mg Capsule) 100 mg PO BID [facility] Last Admin: 06/30/25 09:06 Dose: 100 mg Documented By: MINESH Empagliflozin (Empagliflozin 10 Mg Tablet) 10 mg PO DAILY [facility] Last Admin: 06/30/25 09:06 Dose: 10 mg Documented By: MINESH Fluticasone/Vilanterol (Fluticasone/Vilanterol 200/25 Blst.W.Dev) 1 puff INHALE RDAILY [facility] Last Admin: 06/30/25 07:54 Dose: 1 puff Documented By: WEN Glucose (Glucose Gel 15 Gm Gel..Gram.) 15 gm PO Q15M PRN; Protocol PRN Reason: per Hypoglycemia Standing Ord. Insulin Glargine (Insulin Glargine,Hum.Rec.Anlog 100 Unit/Ml 10 Ml Vial) 12 unit SUBCUT DAILY [facility] Last Admin: 06/30/25 09:07 Dose: 12 unit Documented By: MINESH Insulin Human Lispro (Insulin Lispro 100 Unit/Ml 3 Ml Vial) 0 unit SUBCUT QIDACHS [facility]; Protocol Last Admin: 06/30/25 08:54 Dose: Not Given Documented By: MINESH Non-Admin Reason: No Insulin Coverage Levothyroxine Sodium (Levothyroxine Sodium 100 Mcg Tablet) 100 mcg PO DAILY@0600 [facility] Last Admin: 06/30/25 06:17 Dose: 100 mcg Documented By: REILLY Lidocaine (Lidocaine 4 % Patch Adh..Patch) 1 patch TRANSDERMA DAILY [facility]; Protocol Last Admin: 06/30/25 09:08 Dose: 1 patch Documented By: MINESH Loratadine (Loratadine 10 Mg Tablet) 10 mg PO DAILY [facility] Last Admin: 06/30/25 09:06 Dose: 10 mg Documented By: MINESH Magnesium Hydroxide (Milk Of Magnesia 30 Ml Oral.Susp) 30 ml PO DAILY PRN PRN Reason: Constipation Last Admin: 06/29/25 21:40 Dose: 30 ml Documented By: REILLY Melatonin (Melatonin 3 Mg Tablet) 6 mg PO BEDTIME PRN PRN Reason: Insomnia Metoprolol Succinate (Metoprolol Succinate Er 12.5 Mg Halftab.Er.24h) 12.5 mg PO DAILY [facility]; Protocol Last Admin: 06/30/25 09:06 Dose: 12.5 mg Documented By: MINESH Multivitamins/Vitamin C (Multivitamin Tablet) 1 tab PO DAILY [facility] Last Admin: 06/30/25 09:06 Dose: 1 tab Documented By: MINESH Omeprazole (Omeprazole 20 Mg Capsule.) 20 mg PO BID@0630,1630 [facility] Last Admin: 06/30/25 06:17 Dose: 20 mg Documented By: REILLY Ondansetron HCl (Ondansetron Hcl 4 Mg/2 Ml Vial) 4 mg IVPUSH Q8H PRN PRN Reason: Nausea and Vomiting Polyethylene Glycol (Polyethylene Glycol 3350 17 Gm Powd.Pack) 17 gm PO DAILY [facility] Last Admin: 06/30/25 09:07 Dose: 17 gm Documented By: MINESH Sertraline HCl (Sertraline Hcl 50 Mg Tablet) 50 mg PO DAILY [facility] Last Admin: 06/30/25 09:06 Dose: 50 mg Documented By: MINESH Sodium Chloride (0.9 % Sodium Chloride Flush 3 Ml Syringe) 3 ml IVFLUSH QSHIFT [facility] Last Admin: 06/30/25 09:08 Dose: 3 ml Documented By: MINESH Tolterodine Tartrate (Tolterodine Tartrate La 4 Mg Cap.Er.24h) 4 mg PO DAILY [facility] Last Admin: 06/30/25 09:06 Dose: 4 mg Documented By: MINESH Vitamin D (Cholecalciferol (Vitamin D3) 25 Mcg Tablet) 50 mcg PO DAILY [facility] Last Admin: 06/30/25 09:07 Dose: 50 mcg Documented By: MINESH Warfarin Sodium (Warfarin Sodium 6 Mg Tablet) 6 mg PO DAILY@1800 [facility] Last Admin: 06/29/25 17:29 Dose: 6 mg Documented By: ROSELYN Labs 06/26/25 11:12 06/29/25 07:16 Labs: Laboratory Results - last 24 hr 06/29/25 06/29/25 06/30/25 16:22 20:40 07:53 PT 33.7 H INR 2.8 H POC Glucose 121 H 177 H 06/30/25 06/30/25 08:04 11:42 PT INR POC Glucose 149 H 180 H Assessment and Plan (1) CHF (congestive heart failure): Status: Acute Plan d5 for 89yo F with DM2, HFrEF, hypothyroidism, HTN, pAF and DVT on warfarin with hx IVC filter placement presenting with dyspnea and hypoxia, found to have decompensated HF acute/chronic HF with recovered LVEF, R-sided HF - transitioned from IV furosemide 60 mg bid to bumetanide 2 mg once daily [was on furosemide 60 mg PO daily as outpt]; negative 4.8L this admission; continue empagliflozin + metoprolol succinate - TTE 05/24/25: '1. Low normal LV ejection fraction 50-55% with restrictive filling defect 2. Normal LV size with bybn-fp-djvnptiy RV systolic dysfunction by TAPSE 3. Moderate biatrial enlargement 4. Normal cardiac valvular Dopplers 5. Moderately elevated right ventricular systolic pressure with moderately elevated right atrial pressures 6. No gross pericardial effusion' - outpt f/u to consider cardioversion; declined during this admission by family acute hypoxic respiratory failure - supplemental O2, wean as tolerated pAF: continue metoprolol succinate; resume warfarin, INR 2.8 today mood disorder: sertraline HLD: statin DM2: hold MTF, give basal-bolus insulin and Jardiance as above hypothyroidism: continue levothyroxine VTE prophylaxis: warfarin dispo: PT- STR recommended In my clinical judgment, the patient requires continued inpatient hospitalization for the following reasons: placement Total time managing care of this patient today: 35 minutes. Quality Stroke Does the patient have a stroke diagnosis?: No VTE Prior VTE?: No VTE Risk Level:: Medical - moderate - high VTE Device Contraindication: N/A - Device Ordered VTE Drug Contraindication: N/A - Med Ordered
--- NOTE | 2025-06-30 14:59 | MHC.CM.PN ---
DAVID spoke with pt, (with collar feller) who then asked me to discuss DCP with her dtr, Catar[facility]. Called [facility] to discuss STR that have accepted pt. awaiting return call with choice of SNF.
[2025-06-30 15:58] LABS: Glucose, Whole Blood 177 mg/dL (60-115)
[2025-06-30 21:04] LABS: Glucose, Whole Blood 174 mg/dL (60-115)
[2025-07-01] VITALS: BP 122/56; PULSE 66; RESP 18; TEMP 36.8; O2SAT 97
[2025-07-01 03:37] VITALS: BP 151/63; PULSE 53; RESP 18; TEMP 36.5; O2SAT 98
[2025-07-01 07:35] LABS: INTERNATIONAL NORM RATIO 2.8 (0.9-1.1); Prothrombin Time 33.9 SEC (11.2-13.5)
[2025-07-01 07:58] LABS: Glucose, Whole Blood 137 mg/dL (60-115)
[2025-07-01 08:00] VITALS: BP 154/71; PULSE 58; RESP 20; TEMP 36.6; O2SAT 97
[2025-07-01 08:05] VITALS: PULSE 55; RESP 16; O2SAT 97
[2025-07-01] MEDS: Fluticasone/Vilanterol 200/25 BLST.W.DEV 1 PUFF INHALE (08:05)
[2025-07-01] MEDS: Insulin Glargine,Hum.rec.anlog 100 UNIT/ML 10 ML VIAL 12 UNIT SUBCUT (09:47)
[2025-07-01] MEDS: Lidocaine 4 % Patch ADH..PATCH 1 PATCH TRANSDERMA (10:43)
[2025-07-01 10:50] VITALS: BP 139/64; PULSE 64; RESP 16; TEMP 36.1; O2SAT 94
[2025-07-01 11:03] LABS: Glucose, Whole Blood 180 mg/dL (60-115)
[2025-07-01] MEDS: Metoprolol Succinate ER 12.5 MG HALFTAB.ER.24H PO (11:06)
[2025-07-01] MEDS: 0.9 % Sodium Chloride Flush 3 ML SYRINGE IVFLUSH (11:07)
[2025-07-01 15:35] VITALS: BP 142/88; PULSE 63; RESP 16; TEMP 36.8; O2SAT 94
--- NOTE | 2025-07-01 15:35 | P.DS_ITS ---
DS: Providers Provider Date of Service: 07/01/25 Date of admission: 06/26/25 17:32 Date of discharge: 07/01/25 Primary care physician: Valeri Lerner DO Consults: 06/26/25 17:58 Consult to Cardiology Routine Consulting Provider: [facility] Reason for consultation: CHF, recurrent DS: Transfer Hospital Acceptance Accepting Provider: Admission hpi Chief Complaint: dyspnea This history was taken in Croatian from the patient. 89yo F with DM2, HFrEF, hypothyroidism, HTN, pAF and DVT on warfarin with hx IVC filter placement; recently admitted here 05/23-05/27/25 for CHF exacerbation; started on Jardiance on discharge; metoprolol succinate stopped due to bradycardia. Seen in Cardiology clinic follow-up 06/13/25 with reinitiation of metoprolol succinate at lower dosage.. Came in today with several days of flank pain and dyspnea. No chest pain. No leg swelling. Does not weigh self daily, so weight gain unknown. Found to have pulmonary edema on CXR and desaturatation to 89% with any movement, so currently on 1L O2. Given 60 mg IV furosemide. Hospital course 89yo F with DM2, HFrEF, hypothyroidism, HTN, pAF and DVT on warfarin with hx IVC filter placement presenting with dyspnea and hypoxia, found to have decompensated HF and treated with IV Lasix, usually on Lasix 60 mg daily at home and changed to IV Lasix 60 mg BI and at will change to Bumex at discharge acute/chronic HF with recovered LVEF, R-sided HF - transitioned from IV furosemide 60 mg bid to bumetanide 2 mg once daily [was on furosemide 60 mg PO daily as outpt]; negative 5.4 L this admission; continue empagliflozin + metoprolol succinate TTE 05/24/25: 1. Low normal LV ejection fraction 50-55% with restrictive filling defect 2. Normal LV size with puxo-kw-vrqkhriy RV systolic dysfunction by TAPSE 3. Moderate biatrial enlargement 4. Normal cardiac valvular Dopplers 5. Moderately elevated right ventricular systolic pressure with moderately elevated right atrial pressures 6. No gross pericardial effusion' - outpt f/u to consider cardioversion; declined during this admission by family acute hypoxic respiratory failure - supplemental O2, wean as tolerated pAF: continue metoprolol succinate; resume warfarin, INR 2.8 tody mood disorder: sertraline HLD: statin DM2: hold MTF, give basal-bolus insulin and Jardiance as above hypothyroidism: continue levothyroxine DS: Diagnosis Discharge Diagnosis (1) CHF (congestive heart failure): Status: Acute DS: Summary Time Attestation Discharge Coordination Time (in mins): 45 Quality: Safe Use of Opioids Does Pt have an Active Cancer Diagnosis on the Problem List?: No Quality: Stroke Does the patient have a stroke diagnosis?: No Physical Exam Vital Signs: Vital Signs: Last Vital Signs Temp 97.0 F 07/01/25 10:50 Pulse 64 07/01/25 10:50 Resp 16 07/01/25 10:50 BP 139/64 07/01/25 10:50 Pulse Ox 94 07/01/25 10:50 O2 Del Method Nasal Cannula 07/01/25 10:50 O2 Flow Rate 2 07/01/25 10:50 BMI result Body Mass Index 41.5 DS: Data Data Completed and Pending Labs on day of discharge: Laboratory Results - last 24 hr 06/30/25 06/30/25 07/01/25 15:46 21:00 07:17 PT 33.9 H INR 2.8 H POC Glucose 177 H 174 H 07/01/25 07/01/25 07:42 10:53 PT INR POC Glucose 137 H 180 H Discharge Plan Discharge Anticipated Discharge Date/Time: 07/01/25 14:19 Patient Disposition: Xfer SNF Discharge Diagnosis: [facility] Valeri Lerner DO [Primary Care Provider, Internal Medicine] - 1 Week Discharge Medications: New insulin lispro [Admelog U-100 Insulin lispro] 100 unit/mL Solution See Protocol subcut QIDACHS Qty: 30 0RF Protocol: Insulin Correction Scale Less than or equal to 110 ---- Give (units): 0 111 to 150 Give (units): 0 151 to 200 Give (units): 2 201 to 250 Give (units): 4 251 to 300 Give (units): 6 301 to 350 Give (units): 8 Greater than 350 Give (units): 10 Call MD if Blood Glucose > : 350 Rx Instructions: BG <111 0 units, 111-150 - 0 units, 151-200 2 units, 201-250 4 units, 251-300 6 units, 301-350 8 units, >350 10 units bumetanide 1 mg Tablet 2 mg PO DAILY Qty: 90 0RF Protocol: Hold for SBP< HOLD for SBP < : 90 Continued solifenacin 10 mg tablet 10 mg PO DAILY Ozempic 0.25 mg or 0.5 mg (2 mg/3 mL) pen injector 0.5 mg subcut DURON warfarin 4 mg tablet 6 mg PO DAILY@1800 polyethylene glycol 3350 17 gram Powder In Packet 17 g PO DAILY Qty: 7 0RF fluticasone propion-salmeterol [Wixela Inhub] 500-50 mcg/dose blister with device 1 ea INHALATION BID metformin 500 mg tablet extended release 24 hr 500 mg PO BID magnesium oxide 400 mg (241.3 mg magnesium) tablet 400 mg PO DAILY diclofenac sodium 1 % gel 4 g topical QID PRN (Reason: Pain) albuterol sulfate 90 mcg/actuation HFA aerosol inhaler 2 puff INHALATION Q6H PRN (Reason: wheezing) Jardiance 10 mg Tablet 10 mg PO DAILY Qty: 30 0RF cetirizine 10 mg tablet 5 mg PO DAILY docusate sodium 100 mg capsule 100 mg PO BID acetaminophen 325 mg Tablet 650 mg PO TID PRN (Reason: Pain/Fever) ciclopirox 8 % Solution 1 appl TOPICAL BID Multivitamin w/Minerals, Iron Tablet 1 tab PO DAILY metoprolol succinate 25 mg tablet extended release 24 hr 12.5 mg PO BID (DME) pen needle, diabetic 32 gauge x needle See Rx Instructions .ROUTE .MEDSUPPLY Qty: 50 Rx Instructions: As directed cholecalciferol (vitamin D3) 50 mcg (2,000 unit) tablet 50 mcg PO DAILY sertraline 50 mg tablet 50 mg PO DAILY fluticasone propionate 50 mcg/actuation spray,suspension 2 spray intranasal DAILY omeprazole 20 mg capsule,delayed release(DR/EC) 20 mg PO BID@0630,1630 levothyroxine 100 mcg tablet 100 mcg PO DAILY@0600 (DME) lancets [facility] Rx Instructions .ROUTE .MEDSUPPLY Qty: 100 Rx Instructions: As directed (DME) blood sugar diagnostic Strip See Rx Instructions Not Applicable BID Qty: 10 Rx Instructions: As directed atorvastatin 20 mg tablet 20 mg PO BEDTIME (DME) Sidestream Misc See Rx Instructions .ROUTE DIRECTED Qty: 1 Rx Instructions: As directed Changed insulin glargine [Lantus Solostar U-100 Insulin] 100 unit/mL (3 mL) insulin pen 15 unit subcut DAILY Qty: 15 0RF Discharge Orders: Discharge Order (Routine); Ordered 07/01/25 Ordered By: Tavo Cannon Diet: Advance to usual diet Activity on Discharge: As tolerated Stand Alone Forms: Patient Portal Discharge page Print Language: Croatian Care Plan Goals: recovery from heart failure Health Concerns: heart failure Plan of Treatment: take Bumex as recommended Assessment: see above
--- NOTE | 2025-07-01 16:00 | MHC.CM.PN ---
Second IMM, pt. has been medically cleared to DC, she will go to [place] [facility] [place] for STR today via BLS.
[2025-07-01 16:25] LABS: Glucose, Whole Blood 178 mg/dL (60-115)
== END 2025-07-01 16:33 | disposition skilled nursing facility (03) | DRG 291 ==
LOC: HO.ED 17:27 → HO.EDOVER 17:34 → HO.IMC 06-27 14:42
PROVIDERS: Family Medicine; Physician Assistant; Admitting Provider Physician Assistant Medical; Emergency Provider Emergency Medicine; PCP Family Medicine; Visit Provider Internal Medicine
DX: I11.0 Hypertensive heart disease with heart failure (principal); I50.23 Acute on chronic systolic (congestive) heart failure; J96.01 Acute respiratory failure with hypoxia; I25.10 Atherosclerotic heart disease of native coronary artery without angina pectoris; E03.9 Hypothyroidism, unspecified; I50.813 Acute on chronic right heart failure; E78.5 Hyperlipidemia, unspecified; E11.9 Type 2 diabetes mellitus without complications; I48.0 Paroxysmal atrial fibrillation; Z20.822 Contact with and (suspected) exposure to COVID-19; Z87.891 Personal history of nicotine dependence; Z79.4 Long term (current) use of insulin; Z79.01 Long term (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; Z79.51 Long term (current) use of inhaled steroids; Z79.890 Hormone replacement therapy; Z79.899 Other long term (current) drug therapy
CPT/HCPCS: 36415; 71045; 74176; 80048; 80053; 81001; 82947; 83735; 83880; 84484; 85025; 85610; 87502; 87635; 93005; 94640; 97162; 97530; 99285; J1938

== ENCOUNTER → 2025-06-26 12:00 | Outpatient (BNV) | payer OTHER, SELFPAY | PROVIDERS: PCP Family Medicine; Visit Provider Radiology Diagnostic Radiology | DX: N85.00 Endometrial hyperplasia, unspecified (principal); N32.89 Other specified disorders of bladder; J90 Pleural effusion, not elsewhere classified; R09.02 Hypoxemia | CPT/HCPCS: 71045; 74176 ==

== ENCOUNTER → 2025-06-26 17:32 | Outpatient (BNV) | payer OTHER, SELFPAY | PROVIDERS: Admitting Provider Physician Assistant Medical; Emergency Provider Emergency Medicine; PCP Family Medicine; Visit Provider Internal Medicine Cardiovascular Disease | DX: I50.43 Acute on chronic combined systolic (congestive) and diastolic (congestive) heart failure (principal); I48.21 Permanent atrial fibrillation | CPT/HCPCS: 99233 ==

== ENCOUNTER → 2025-06-26 17:32 | Outpatient (BNV) | payer OTHER, SELFPAY | PROVIDERS: Admitting Provider Physician Assistant Medical; Emergency Provider Emergency Medicine; PCP Family Medicine; Visit Provider Family Medicine | DX: I50.9 Heart failure, unspecified (principal) | CPT/HCPCS: 99232 ==

== ENCOUNTER 2025-07-11 12:39 | Outpatient (REF) | payer OTHER, SELFPAY ==
--- OUTSIDE RECORDS SUMMARY | 2024-11-22 08:30 | XMS_ITS ---
Author Organization [facility] Address [address] [place] [phone] Care Team Providers Care Salon Shampoo Assistant Name Role Phone Valeri Lerner Primary Care Provider UnavailKeenan Dalton Unavailable [phone] Archuleta Encounters Encounter Location Date Provider Diagnosis [address] [phone] 11/22/2024 Keenan Dyer Plan Of Treatment Next Appt Details Provider Name:Keenan Dyer , 08/15/2025 12:45:00 PM, [address] [place] [address], [phone], Progress Notes * Anna WOODCoraB:[birth year] (89 yo F)Acc No.[id number]:11/22/2024 Progress Note Patient: Nikky SINGH Provider: Gabbi Dyer DPM :1935 A ge:89 Y S ex:Female Date:11/22/2024 Address:[address] [place] [phone] Pcp:Valeri Lerner Subjective: * Chief Complaints: * [...] 0 11/22/2024 Generated for Tray López on: 2024 06:06 PM EST
--- OUTSIDE RECORDS SUMMARY | 2024-12-13 07:45 | XMS_ITS ---
Author Organization [facility] Address [address] [place] [address] Care Team Providers Care Creative/Art Director Name Role Phone Valeri Lerner Primary Care Provider UnavailKeenan Dalton Unavailable [phone] Archuleta Encounters Encounter Location Date Provider Diagnosis [address] [address] 12/13/2024 Keenan Dyer Plan Of Treatment Next Appt Details Provider Name:Keenan Dyer , 08/15/2025 12:45:00 PM, [address] [place] [address], [address], Progress Notes * Anna WOODCoraB:[birth year] (89 yo F)Acc No.[id number]:12/13/2024 Progress Note Patient: Nikky SINGH Provider: Gabbi Dyer DPM :1935 A ge:89 Y S ex:Female Date:12/13/2024 Address:[address] [place] [phone] Pcp:Valeri Lerner Subjective: * Chief Complaints: * [...] * Provider: Gabbi Dyer DPM Date: 0 12/13/2024 Generated for Tray López on: 1 2024 06:05 PM EST
--- NOTE | ~2025-07-11 | US_ITS ---
EXAMINATION: US RETROPERITONEAL LIMITED (RENAL ONLY) CLINICAL INFORMATION: R32. COMPARISON: Correlated to CT abdomen and pelvis dated June 26, 2025. TECHNIQUE: Real-time ultrasound of the kidneys using grayscale technique. FINDINGS: RIGHT KIDNEY: 9 x 4 x 4 cm (SAG x AP x TRV). Volume: 67 cc. Normal echotexture. Renal cortical thickness is normal. No hydronephrosis. 2.5 cm anechoic lesion in the upper pole without septations or nodular components. LEFT KIDNEY: 10 x 5 x 4 cm (SAG x AP x TRV). Volume: 96 cc. Normal echotexture. Renal cortical thickness is normal. No hydronephrosis. 1.9 cm anechoic lesion in the upper pole without septations or nodular components. Probable 3 mm hyperechoic structure in the upper pole. US/US renal BI IMPRESSION: No hydronephrosis. Bilateral renal cysts. Probable nonobstructing nephrolithiasis, left kidney.. Electronically signed by: Miguelito Jay MD 07/11/2025 01:43 PM EST
--- OUTSIDE RECORDS SUMMARY | 2025-07-11 18:05 | XMS_ITS | Encounter Summary ---
Author Organization [employer] Address [address] [place] [address] [address] [place] [address] Care Team Providers Care Cigarette Maker Name Role Phone EduardaValeri Primary Care Provider [phone] Batsheva Gomez PharmD Unavailable [phone] Encounter Details Date Type Department Care Team (Late st Contact Info) Description 09/29/2022 Abstract [facility] [address] [place] [address] Sebastian Fierro DDS [address] [place] [address] Social History Tobacco Use Types Packs/Day Years [...] on file documented as of this encounter Visit Diagnoses Not on filedocumented in this encounter Care Teams Cigarette Maker Relationship Specialty Start Date End Date Valeri Lerner DO [address] [place] [address] PCP - General Family Medicine 07/13/12 Batsheva Gomez PharmD [address] [place] [address] Pharmacist Internal Medicine 03/07/24 12/19/24 [place] 12/08/23 documented as of this encounter
--- OUTSIDE RECORDS SUMMARY | 2025-07-11 18:05 | XMS_ITS | Encounter Summary ---
Author Organization [employer] Address [address] [place] [address] [address] [place] [address] Care Team Providers Care Shake Cutter Name Role Phone Valeri Lerner DO Primary Care Provider [phone] Batsheva Gomez PharmD Unavailable [phone] Encounter Details Date Type Department Care Team (Late st Contact Info) Description 09/23/2022 Abstract [facility] [address] [place], [place] [id number] Valeri Lerner DO [address] [place] [address] Social History Tobacco Use Types Packs/Day Years [...] on filedocumented in this encounter Care Teams Shake Cutter Relationship Specialty Start Date End Date Valeri Lerner DO [address] [place] [address] PCP - General Family Medicine 07/13/12 Batsheva Gomez PharmD [address] [place] [address] Pharmacist Internal Medicine 03/07/24 12/19/24 [employer] 12/08/23 documented as of this encounter
--- OUTSIDE RECORDS SUMMARY | 2025-07-11 18:05 | XMS_ITS | Encounter Summary ---
Author Organization [email or web address] Address [address] [facility] [address] [place] [address] Care Team Providers Care Home Health Lvn Name Role Phone aVleri Lerner DO Primary Care Provider Batsheva Gomez PharmD Unavailable Reason for Visit * Reason Comments Med Refill Encounter Details Date Type Department Care Team (Late st Contact Info) Description 09/12/2023 Refill [facility] MEDICINE [address] [place], [place] [phone] Valeri Lerner DO [address] [place], [place] [phone] Generalized anxiety disorder Social History Tobacco Use [...] the past 12 months, has t he [employer], gas, oil or water company threatened to [...] documented as of this encounter Care Teams Home Health Lvn Relationship Specialty Start Date End Date Valeri Lerner DO [address] [place] [address] PCP - General Family Medicine 07/13/12 Batsheva Gomez PharmD [address] [place] [address] Pharmacist Internal Medicine 03/07/24 12/19/24 [employer] 12/08/23 documented as of this encounter
--- OUTSIDE RECORDS SUMMARY | 2025-07-11 18:05 | XMS_ITS | Encounter Summary ---
Author Organization [employer] Address [address] [facility] [address] [place] [address] Care Team Providers Care Mitochondrial Disorders Counselor Name Role Phone Valeri Lerner DO Primary Care Provider Batsheva Gomez PharmD Unavailable [phone] Reason for Visit * Reason Onset Date Comments FYI 10/08/2024 Encounter Details Date Type Department Care Team (Late st Contact Info) Description 10/08/2024 Telephone [facility] MEDICINE [address] [place], [place] [phone] Valeri Lerner DO [address] [place], [place] [phone] Social History Tobacco Use Types Packs/Day Years [...] the past 12 months, has t he [employer], gas, oil or water company threatened to [...] will like a callback TODAY from nurse [phone] documented in this encounter Plan of Treatment Not on file documented as of this encounter Goals Goal Patient Goal Type Associated Problems Recent Progress Patient-Stated? Author Patient will adhere to medication regimen General No Puia, Batsheva, PharmD Record your blood sugar as directed Result Component No Puia Batsheva, PharmD Note: Resume CGM. Ensure sensor [...] documented as of this encounter Care Teams Mitochondrial Disorders Counselor Relationship Specialty Start Date End Date Valeri Lerner DO [address] [place] [address] PCP - General Family Medicine 07/13/12 Batsheva Gomez PharmD [address] [place] [address] Pharmacist Internal Medicine 03/07/24 12/19/24 [employer] 12/08/23 documented as of this encounter
--- OUTSIDE RECORDS SUMMARY | 2025-07-11 18:05 | XMS_ITS | Encounter Summary ---
Author Organization [employer] Address [address] [place] [address] [address] [place] [address] Care Team Providers Care Elevator Service Mechanic Name Role Phone Valeri Lerner DO Primary Care Provider + [phone] Reason for Visit * Reason Comments Med Refill Encounter Details Date Type Department Care Team (Late st Contact Info) Description 04/24/2025 Refill [facility] MEDICINE [address] [place], [place] [phone] Valeri Lerner DO [address] [place], [place] [phone] Social History Tobacco Use Types Packs/Day Years [...] will adhere to medication regimen General No Patricia, Batsheva, PharmD Record your blood sugar as directed Result Component No Batsheva Gomez, PharmD Note: Resume CGM. Ensure sensor is scanned at least once every 8 hours to capture 24H data. Check BG manually, as directed. Hemoglobin A1c < 8 Result Component 7.6( 1:53 PM EDT) No CharyiaBatsheva, PharmD documented as of this encounter Visit Diagnoses Not on filedocumented in this encounter Additional Health Concerns Assessment Noted Time PHQ-9 Depression Total Score: 0 07/15/20 24 11:32 AM EST documented as of this encounter Care Teams Elevator Service Mechanic Relationship Specialty Start Date End Date Valeri Lerner DO [address] [place] [id number] PCP - General Family Medicine 07/13/12 [employer] 12/08/23 documented as of this encounter
--- OUTSIDE RECORDS SUMMARY | 2025-07-11 18:05 | XMS_ITS | Encounter Summary ---
Author Organization [employer] Address [address] [facility] 7t [place] [address] Care Team Providers Care Production Control Coordinating Clerk Name Role Phone Valeri Lerner DO Primary Care Provider [phone] Batsheva Gomez PharmD Unavailable Reason for Visit * Reason Onset Date Comments Nurse Triage 01/18/2024 Encounter Details Date Type Department Care Team (Late st Contact Info) Description 01/18/2024 Telephone [facility] MEDICINE [address] [place], [place] [phone] Valeri Lerner DO [address] [place], [place] [phone] Nurse Triage Social History Tobacco Use Types [...] the past 12 months, has t he [employer], gas, oil or water company threatened to [...] Artemio with [facility] on any medication changes [phone]. Daughter made aware of home care recommendations, [...] accepted this outcome Please contact pt at [phone] documented in this encounter Plan of Treatment Not on file documented as of this encounter Visit Diagnoses Not on filedocumented in this encounter Additional Health Concerns Assessment Noted Time PHQ-9 Depression Total Score: 2 08/23/19 11:01 AM EST documented as of this encounter Care Teams Production Control Coordinating Clerk Relationship Specialty Start Date End Date Valeri Lerner DO [address] [place] [address] PCP - General Family Medicine 07/13/12 Batsheva Gomez PharmD [address] [place] [address] Pharmacist Internal Medicine 03/07/24 12/19/24 [employer] 12/08/23 documented as of this encounter
--- OUTSIDE RECORDS SUMMARY | 2025-07-11 18:05 | XMS_ITS | Encounter Summary ---
Author Organization [facility] Address [address] [place] [address] Care Team Providers Care Arc Trimmer Name Role Phone Valeri Lerner Primary Care Provider [phone] Encounter Details Date Type Department Care Team (Late st Contact Info) Description 11/01/2024 Lab Requisition [facility] - Main Lab [address] [place] [address] mArita Polanco MD [address] [place] [id number] Heart failure, unspecified (CMS/HCC V24, CMS/HCC V28) [...] sec LAB COAGULATION METHOD 11/01/2024 9:58 AM [facility] LAB INR 1.2 LAB COAGULATION METHOD 11/01/2024 9:58 AM [facility] LAB Blood Venous blood specimen / Unknown Venipuncture / Unknown 11/01/2024 6:48 AM EDT 11/01/2024 9:35 AM EDT us Amrita Polanco MD LAB BLOOD ORDERABLES Final Resu lt [facility] ([facility]) [facility] [address] [place] [address], documented in this encounter Visit Diagnoses Diagnosis Heart failure, unspecified (CMS/HCC V24, CMS/HCC V28) Heart failure, unspecified documented in this encounter Care Teams Arc Trimmer Relationship Specialty Start Date End Date Valeri Lerner DO [address] [place] [address] PCP - General 11/15/14 documented as of this encounter
--- OUTSIDE RECORDS SUMMARY | 2025-07-11 18:05 | XMS_ITS | Clinical Summary ---
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 Name Role Phone Valeri Lerner DO Primary Care Provider [phone] Allergies Active Allergy Reactions Criticality Noted Date [...] each 11 023 Active Continuous Blood Gluc File Machine Operator (MevvyStyle Jason 2 [place]) device Scan sensor every 8 hours 1 [...] with long-term current use of insulin (HCC) TAKE 1 TABLET BY MOUTH TWICE DAILY IN THE MORNING AND IN THE EVENING WITH FOOD 60 tablet 06/13/20 4:09 PM EST Active atorvastatin (Lipitor) 20 MG tabletIndications :Other hyperlipidemia TAKE 1 TABLET BY MOUTH AT BEDTIME 90 tablet Active docusate sodium (Colace) 100 MG capsuleIndication s:Chronic constipation TAKE 1 CAPSULE BY MOUTH TWICE DAILY 180 capsule Active ciclopirox (Loprox) 0.77 % cream APPLY TOPICALLY TO SKIN OF FEET AND TOES TWICE DAILY DIRECTED Active white petrolatum (Vaseline) gelIndications:Ac daren cystitis with hematuria Apply topically if needed for dry skin or irritation. 500 g Active Continuous Glucose Sensor (FreeStyle Jason 2 [...] the skin in the morning. 15 mL 06/13/20 4:09 PM EST Active Semaglutide,0.25 or 0.5MG/DOS, (Ozempic, 0.25 or 0.5 MG/DOSE,) 2 MG/3ML solution pen-injectorIndic ations:Type 2 diabetes mellitus with hyperglycemia, with long-term current use of insulin (HCC) Inject 0.5 mg under the skin 1 (one) time per week. 3 mL 06/13/20 25 4:09 PM EST 025 2025 Active Pentips Generic Pen Clinton 32G X 4 MM misc USE DIRECTED WITH LANTUS AND HUMALOG 200 each Active sertraline (Zoloft) 50 MG tabletIndications :Depression, unspecified depression type TAKE 1 TABLET BY MOUTH EVERY MORNING 30 tablet Active Fluticasone-Salme terol 500-50 MCG/ACT aerosol powderIndications :Moderate persistent asthma without complication Inhale 1 puff 2 times daily. 60 each 06/13/20 25 4:09 PM EST Active albuterol 108 (90 [...] BREAK, CRUSH, DISSOLVE OR CHEW 30 tablet 06/13/20 25 4:09 PM EST 025 Active magnesium oxide (Mag-Ox) 400 MG tabletIndications :Hypomagnesemia TAKE 1 TABLET BY MOUTH EVERY DAY 30 tablet 1 025 Active Alcohol Swabs (Alcohol Prep) 70 % pads USE THREE TO FOUR TIMES DAILY 100 each Active cephalexin (Keflex) 500 MG capsule Take 500 mg by mouth. 024 Active Diclofenac Sodium 1 % gel Apply topically. Active empagliflozin (Jardiance) 10 MG Take 10 mg by mouth. Active Multiple Vitamin (Multivitamin) tablet TAKE 1 TABLET BY MOUTH EVERY MORNING WITH FOOD Active warfarin (Coumadin) 2 MG tablet TAKE 3 TABLETS (6MG) BY MOUTH EVERY EVENING FOR 3 DAYS Active warfarin (Coumadin) 4 MG tabletIndications :Paroxysmal atrial fibrillation (CMS/HCC) (HCC) TAKE 1 TO 2 TABLETS BY MOUTH ONCE DAILY DIRECTED 60 tablet 2 Active levothyroxine (Synthroid, Levoxyl) 100 MCG tablet TAKE 1 TABLET BY MOUTH EVERY MORNING ON AN EMPTY STOMACH 90 tablet 1 Active omeprazole (PriLOSEC) [address] capsule TAKE 1 CAPSULE BY MOUTH TWICE DAILY IN THE MORNING AND IN THE EVENING WITH FOOD 180 capsule 1 Active metoprolol tartrate (Lopressor) 25 MG tablet TAKE 1/2 TABLET BY MOUTH TWICE DAILY IN THE MORNING AND EVENING 90 tablet 1 025 Active omeprazole (PriLOSEC) [address] capsule TAKE 1 CAPSULE BY MOUTH TWICE DAILY IN THE MORNING AND IN THE EVENING WITH FOOD 180 capsule 1 025 2024 Discontinued levothyroxine (Synthroid, Levoxyl) 100 MCG tablet TAKE 1 TABLET BY MOUTH EVERY MORNING ON AN EMPTY STOMACH 90 tablet 1 025 2024 Discontinued metoprolol tartrate (Lopressor) 25 MG tablet TAKE 1/2 TABLET BY MOUTH TWICE DAILY IN THE MORNING AND EVENING 90 tablet 1 025 2024 Discontinued warfarin (Coumadin) 4 MG tabletIndications :Paroxysmal atrial fibrillation (CMS/HCC) (HCC) TAKE 1 TO 2 TABLETS BY MOUTH EVERY DAY DIRECTED 60 tablet 2 06/13/20 4:09 PM EST 2024 Discontinued(T herapy completed) metoprolol succinate XL (Toprol-XL) 25 MG 24 hr tablet 025 2024 Discontinued Active Problems Problem Noted [...] benefit from more structured support, daughter working time motion analyst, she and brother are primary care givers, nephew was assisting with medications and home care but no longer working as borematic operator, 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 Rug Cutter list provided for daughter, Referral to vna [...] Overview (01/26/2024): Seen by Dr Bradshaw, [facility] cards. Assessment & Plan [...] one of 9 on admission to [facility]. No change in meds. [...] medications Fall 11/21/2023 12/26/2023 Forehead contusion 11/21/2023 4 Gastroenteritis 11/21/2023 12/26/2023 Head injury 11/21/2023 12/26/2023 Hypoxia 11/21/2023 12/26/2023 Obesity due to excess calories 11/21/2023 12/26/2023 Sepsis ([facility]) 11/21/2023 12/26/2023 Urgency incontinence 11/21/2023 024 UTI (urinary tract infection) 11/21/2023 12/26/2023 Weakness 11/21/2023 12/26/2023 Well woman exam 11/21/2023 12/26/2023 BMI 40.0-44.9, adult ([facility]) 08/23/2023 11/25/2024 Arthritis of right shoulder region 08/08/2022 08/23/2023 Assessment & Plan (08/08/2022 1:07 PM EST): 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 Tylenol [...] Encounters Date Type Department Care Team Description 07/02/2025 Telephone [facility] [address] [place] [address] Valeri Lerner DO INR care coordination-[facility] 06/30/2025 Refill [facility] [address] [place] [address] Valeri Lerner DO 06/26/2025 Orders Only [facility] External Provider, [facility] 06/23/2025 Anticoagulation - Warfarin Visit [facility] [address] [place] [address] Michaela Rollins, SHIRLEY Paroxysmal atrial fibrillation ([facility]) ([facility]) 06/22/2025 Refill [facility] [address] [place] [address] Valeri Lerner DO Paroxysmal atrial fibrillation ([facility]) ([facility]) 06/18/2025 Anticoagulation - Warfarin Visit [facility] [address] [place] [address] Michaela Rollins, SHIRLEY Paroxysmal atrial fibrillation ([facility]) ([facility]) 06/13/[address] [address] Valeri Lerner DO VNA services 06/13/2025 Patient Outreach [facility] [address] [place] [address] Valeri Lerner DO Transition Of Care (Tcm) (HDF scheduled) 06/13/2025 Telephone [facility] [address] [place] [address] Valeri Lerner DO Hospital Follow-up 06/09/2025 Patient Outreach [facility] [address] [place], [place] [phone] Valeri Lerner DO Pre-visit Planning (HDF scheduled ) 06/06/2025 11:30 AM EST Office Visit [facility] OPTOMETRY [address] [place] [address] Ai Baron, OD History of nonproliferative diabetic retinopathy (Primary Dx); Pseudophakia of both eyes; Presbyopia of both eyes 06/06/2025 Telephone [facility] [place] [address] Valeri Lerner DO INR tracking 06/06/2025 Travel 05/30/2025 Refill [facility] [place] [address] Valeri Lerner DO 05/28/2025 Patient Outreach [facility] [place] [address] Valeri Lerner DO Transition Of Care (Tcm) (HDF scheduled and SDOH screening completed on 02/17/25) 05/28/2025 Orders Only GENERIC EXTERNAL DATA DEPARTMENT Provider, Generic External Data 05/27/2025 Orders Only GENERIC EXTERNAL DATA DEPARTMENT Provider, Generic External Data 05/23/2025 Telephone [facility] [place] [address] Valeri Lerner DO FYI 05/21/2025 Telephone [facility] [address] [facility] [place] [address] Valeri Lerner DO FYI 05/13/2025 Anticoagulation - Warfarin Visit [facility] [place] [address] Michaela Rollins, RN Paroxysmal atrial fibrillation ([facility]) ([facility]) 05/13/2025 Telephone [facility] [place] [address] Valeri Lerner DO 05/06/2025 Anticoagulation - Warfarin Visit [address] [address] Michaela Rollins, RN Paroxysmal atrial fibrillation ([facility]) ([facility]) 05/01/2025 Refill [facility] [place] [address] Frances Hilario FNP Hypomagnesemia 04/24/2025 Refill [facility] [place] [address] Valeri Lerner DO 04/18/2025 Telephone [facility] [address] [place] [phone] Valeri Lerner DO 04/18/2025 Telephone [facility] [address] [place] [address] Valeri Lerner, telephone call 04/15/2025 Anticoagulation - Warfarin Visit [facility] [address] [place] [address] Michaela Rollins RN Paroxysmal atrial fibrillation ([facility]) 04/15/[address] [address] Valeri Lerner, Call back request 04/14/2025 Telephone [facility] [address] [place] [address] Valeri Lerner, call back request from Last 3 Months Immunizations Immunization Administration Dates Next Due Hep B, adult 06/14/2024,07/02/2015,05/21/2015 Influenza High-dose Quadriva lent Preservative Free 06/07/2021 Influenza injectable quadriv alent IIV4 with preservative 08/08/2022,07/01/2016,05/21/2015 Influenza injectable quadriv alent preservative free 08/23/2023 Influenza, High Dose Seasona l, Preservative Free 04/26/2024,04/12/2019,05/21/2018,05/02 Influenza, IIV3, injectable 04/28/2014, 1 Influenza, Split (incl. carri fied surface antigen) 04/17/2013,06/12/2012 Influenza, live, intranasal 05/30/2016 Influenza, seasonal, injecta ble, preservative free 04/30/2024,04/30/2018,04/03/2017 Moderna Covid-19 Vaccine 12+ 11/06/2020,10/10/19 21 Pfizer [...] your housing situation today? I have florence bugrer 02/17/[address] you li [...] 03/07/2025 1:42 PM EDT Plan of Treatment Health Maintenance Due Date Last Done Comments Dental Oral Exam 1935 Dental Prophylaxis 1935 Dental X-Ray: Bitewings 1935 Dental X-Ray: Full Mouth 1935 Alcohol/Substance Use Screening 1947 Diabetes: Urine Protein Screening 08/31/2024 08/31/2023, 01/19/2022, 05/19/2021, Additional history exists Lipid Panel 08/31/2024 08/31/2023 COVID-19 Vaccine ( season) 2025 04/26/2024, 12/26/2023, 08/23/2023, Additional history exists Influenza Vaccine (#1) 2025 , 04/26/2024, 04/26/2024, Additional history exists Eye Exam 06/24/2025 06/24/2024, 06/01, 06/24/2024, Additional history exists Depression Screening 07/15/2025 07/15/2024, 07/15/20 Diabetes: Hemoglobin A1C 09/30/2025 025, 03/07/2025, 11/22/2024, Additional history exists Diabetes: Foot Exam 01/10/2026 01/10/2025 SDOH Screening 02/17/2026 02/17/2025 Tobacco Screening 06/20/2026 06/20/2025 DTaP/Tdap/Td Vaccines (3 [...] blood pressure task No Michaela Rollins, SHIRLEY Help patients manage their type 2 diabetes [...] blood pressure task No Michaela Rollins, SHIRLEY Weekly blood pressure [...] blood pressure task No Michaela Rollins, SHIRLEY Weekly blood pressure [...] Care Plan Weekly blood pressure task No Miryam House PharmD Weekly blood pressure task Care Plan Weekly blood pressure task No M[facility]am House, PharmD Patient has chronic kidney disease Care Plan Patient has chronic kidney disease No Miryam House PharmD Patient has chronic kidney disease Care Plan Patient has chronic kidney disease No Miryam House PharmD Weekly blood pressure task Care Plan Weekly blood pressure task No Valeri Renner TILE POWER SHEAR OPERATOR Weekly blood pressure task Care Plan Weekly blood pressure task No Valeri Renner TILE POWER SHEAR OPERATOR Patient has chronic kidney disease Care Plan Patient has chronic kidney disease No Valeri Renner TILE POWER SHEAR OPERATOR Patient has chronic kidney disease Care Plan Patient has chronic kidney disease No Valeri Renner LPN Weekly blood pressure task Care Plan Weekly [...] Procedure Name Priority Date/Time Associated Diagnosis Comments US RENAL COMPLETE Routine 07/11/2025 1:1 5 PM EST HIGH SENSITIVITY TROPONIN I Routine 06/26/2025 4:50 PM EST XR CHEST 1 VIEW Routine 06/26/2025 4:16 PM EST URINALYSIS, COMPLETE, WITH REFLEX TO CULTURE Routine 06/26/2025 2:58 PM EST URINALYSIS WITH REFLEX MICROSCOPIC Routine 06/26/2025 2:[address] ABDOMEN PELVIS WO CONTRAST Routine 06/26/2025 1:34 PM EST PROTHROMBIN TIME-INR Routine 06/23/2025 PROTHROMBIN TIME-INR Routine [...] with long-term current use of insulin (CMS/HCC) AMB REFERRAL TO PODIATRY Routine 01/10/2025 Type 2 diabetes mellitus with hyperglycemia, with long-term current use of insulin (CMS/[facility]) ALBUMIN, RANDOM URINE W/CREATININE Routine 08/31/2023 4:16 PM EST Type 2 diabetes mellitus with hyperglycemia, with long-term current use of insulin (CMS/[facility]) LIPID PANEL, STANDARD Routine 08/31/2023 4:11 PM EST Type 2 diabetes mellitus with hyperglycemia, with long-term current use of insulin (CMS/[facility]) from Last 3 Months or Most Recently Relevant to Health Maintenance Results * US Renal Complete (07/11/2025 1:15 PM EST) Anatomical Region Laterality Modality Kidney Ultrasound 07/11/2025 1:15 PM EST Narrative 07/11/2025 1:46 PM EST [place] [address] Ultrasound Report Signed Patient: Nikky Guevara MR#: [id number] : 1935 Acct:[id number] Age/Sex: 89 / F ADM Date: 07/11/25 Loc: HO.US Attending Dr: Sarmad Loza MD Ordering Physician: Sarmad Loza MD Date of Service: 07/11/25 Procedure(s): US renal BI Accession Number(s): [id number] cc: Sarmad Loza MD; Valeri Lerner DO Reason for Exam: R32 - Unspecified urinary incontinence EXAMINATION: US RETROPERITONEAL LIMITED (RENAL ONLY) CLINICAL INFORMATION: R32. COMPARISON: Correlated to CT abdomen and pelvis dated June 26, 2025. TECHNIQUE: Real-time ultrasound of the kidneys using grayscale technique. FINDINGS: RIGHT KIDNEY: 9 x 4 x 4 cm (SAG x AP x TRV). Volume: 67 cc. Normal echotexture. Renal cortical thickness is normal. No hydronephrosis. 2.5 cm anechoic lesion in the upper pole without septations or nodular components. LEFT KIDNEY: 10 x 5 x 4 cm (SAG x AP x TRV). Volume: 96 cc. Normal echotexture. Renal cortical thickness is normal. No hydronephrosis. 1.9 cm anechoic lesion in the upper pole without septations or nodular components. Probable 3 mm hyperechoic structure in the upper pole. US/US renal BI IMPRESSION: No hydronephrosis. Bilateral renal cysts. Probable nonobstructing nephrolithiasis, left kidney.. Electronically signed by: Miguelito Jay MD 07/11/2025 01:43 PM EST Dictated By: Miguelito Lipscomb MD Signed By: <Electronically signed by Miguelito Lobo MD in OV> 07/11/25 1343 DD/ 1315 TD/TT: 07/11/25 1325 Assembly Machine Feeder: Procedure Note Donotuseinterpreter, Image - 07/11/[address] [address] Ultrasound Report Signed Patient: Ariane GuevaraR#: [id number] : 1935cct:[id number] Age/Sex: 89 / FADM Date: 07/11/25 Loc: HO.US Attending Dr: Sarmad Loza MD Ordering Physician: Sarmad Loza MD Date of Service: 07/11/25 Procedure(s): US renal BI Accession Number(s): [id number] cc: Sarmad Loza MD; Valeri Lerner DO Reason for Exam: R32 - Unspecified urinary incontinence EXAMINATION: US RETROPERITONEAL LIMITED (RENAL ONLY) CLINICAL INFORMATION: R32. COMPARISON: Correlated to CT abdomen and pelvis dated June 26, 2025. TECHNIQUE: Real-time ultrasound of the kidneys using grayscale technique. FINDINGS: RIGHT KIDNEY: 9 x 4 x 4 cm (SAG x AP x TRV). Volume: 67 cc. Normal echotexture. Renal cortical thickness is normal. No hydronephrosis. 2.5 cm anechoic lesion in the upper pole without septations or nodular components. LEFT KIDNEY: 10 x 5 x 4 cm (SAG x AP x TRV). Volume: 96 cc. Normal echotexture. Renal cortical thickness is normal. No hydronephrosis. 1.9 cm anechoic lesion in the upper pole without septations or nodular components. Probable 3 mm hyperechoic structure in the upper pole. US/US renal BI IMPRESSION: No hydronephrosis. Bilateral renal cysts. Probable nonobstructing nephrolithiasis, left kidney.. Electronically signed by: Miguelito Jay MD 07/11/2025 01:43 PM EST RP Dictated By: Miguelito Lipscomb MD Signed By: <Electronically signed by Miguelito Lobo MDin OV> 07/11/25 1343 DD/ 1315 TD/TT: 07/11/25 1325 Assembly Machine Feeder: us [facility] External Provider IMG US PROCEDURES Final Result * (ABNORMAL) High Sensitivity Troponin I (06/26/2025 4:50 PM EST) TROPONIN I HIGH SENSITIVITY 25.2(H) <3.5 - 17.0 ng/L [facility] Comment:The [place]we high sens itivity Troponin-I results should beused in conjunction with other diagnostic information suchas ECG, clinical observations and information, and patientsymptoms to aid in the diagnosis of CT. 06/26/2025 4:50 PM EST 06/26/2025 5:04 PM EST us Generic External Data Provider LAB BLOOD ORDERAB LES Final Result [facility] [address] [place] [phone] * XR Chest 1 View (06/26/2025 4:16 PM EST) Only the most recent of2 resultswithin the time period is included. Anatomical Region Laterality Modality Chest Radiographic Isabella ging 06/26/2025 4:16 PM EST Narrative 06/26/2025 4:17 PM EST [address] [address] XRay Report Signed Patient: Nikky Guevara MR#: [id number] : 1935 Acct:[id number] Age/Sex: 89 / F ADM Date: 06/26/25 Loc: HO.ED Attending Dr: Ordering Physician: Neha Roman Date of Service: 06/26/25 Procedure(s): XR chest 1V Accession Number(s): [id number] cc: Valeri Lerner DO; Neha Roman Reason for Exam: sob, hypoxia CLINICAL HISTORY: sob, hypoxia Chest Radiograph Comparison: CT/SR - ABDOMEN ABD_PEL_WITHOUT (ADULT) - 06/26/25 12:02 EST CR - XR CHEST 1V - 05/28/25 00:08 EDT CR - XR CHEST 1V - 05/24/25 13:10 EDT Findings: No cardiomegaly. Normal mediastinal contours. No pneumothorax. Question mild interstitial prominence. Trace bilateral pleural effusion seen on CT are not well seen on chest radiograph. No acute findings in the upper abdomen. No acute fracture. Impression: Suspect mild pulmonary edema. This document has been electronically signed by: Crystal Bullock MD on 06/26/2025 16:16:24 Dictated By: Crystal Dumont MD Signed By: <Electronically signed by Crystal Dumont MD in OV> 06/26/25 1617 DD/ 1616 TD/TT: 06/26/25 161 Assembly Machine Feeder: Procedure Note Donotuseinterpreter, Image - 06/26/[address] [address] XRay Report Signed Patient: Cassie Guevara#: [id number] : 6Acct:[id number] Age/Sex: 89 / FADM Date: 06/26/25 Loc: HO.ED Attending Dr: Ordering Physician: Neha Roman Date of Service: 06/26/25 Procedure(s): XR chest 1V Accession Number(s): [id number] cc: Valeri Lerner DO; Neha Roman Reason for Exam: sob, hypoxia CLINICAL HISTORY: sob, hypoxia Chest Radiograph Comparison: CT/SR - ABDOMEN ABD_PEL_WITHOUT (ADULT) - 06/26/25 12:02 EST CR - XR CHEST 1V - 05/28/25 00:08 EDT CR - XR CHEST 1V - 05/24/25 13:10 EDT Findings: No cardiomegaly. Normal mediastinal contours. No pneumothorax. Question mild interstitial prominence. Trace bilateral pleural effusion seen on CT are not well seen on chest radiograph. No acute findings in the upper abdomen. No acute fracture. Impression: Suspect mild pulmonary edema. This document has been electronically signed by: Crystal Bullock MD on 06/26/2025 16:16:24 Dictated By: Crystal Dumont MD Signed By: <Electronically signed by Crystal Dumont MD in OV> 06/26/251616 DD/ 161 TD/TT: 06/26/251615 Assembly Machine Feeder: [facility] External Provider IMG XR PROCEDURES Edited Result - Final * (ABNORMAL) Urinalysis, Complete, with Reflex to Culture (06/26/2025 2:58 PM EST) Only the most recent of2 resultswithin the time period is included. Color Urine Yellow [facility] Appearance Urine Clear [facility] PH 6.5 5.0 - 9.0 [facility] Glucose Urine UA Negative Negative mg/dL [facility] Urine Blood Trace(A) Negative [facility] Specific Addison - Urine 1.010 1.005 - 1.025 [facility] Urine Protein 30 (1+)(A) Neg-Trace mg/dL [facility] Urine Ketones Negative Negative mg/dL [facility] Nitrite Urine Negative Negative [facility] Leukocyte Esterase Urine Negative Negative [facility] RBC Urine 0-2 0 - 2 /HPF [facility] Urine WBC 0-5 0 - 5 /HPF [facility] Urine Squamous Epithelial Cell 0-2 0 - 2 /HPF [facility] Urine Bacteria None Seen None Seen [facility] Hyaline Casts, Urine 0-2 0 - 2 /LPF [facility] 06/26/2025 2:58 PM EST 06/26/2025 3:01 PM EST Narrative [facility] - 06/26/2025 3:12 PM EST Urine, Clean Catch us Generic External Data Provider LAB URINE ORDERAB LES Final Result Performing Organization Address City/State/[facility] Co de Phone Number [facility] [address] [place] [phone] * (ABNORMAL) Urinalysis w/reflex microscopic (06/26/2025 2:58 PM EST) Color Urine Yellow [facility] Appearance Urine Clear [facility] PH 6.5 5.0 - 9.0 [facility] Glucose Urine UA Negative Negative mg/dL [facility] Urine Blood Trace(A) Negative [facility] Specific Addison - Urine 1.010 1.005 - 1.025 [facility] Urine Protein 30 (1+)(A) Neg-Trace mg/dL [facility] Urine Ketones Negative Negative mg/dL [facility] Nitrite Urine Negative Negative [facility] Leukocyte Esterase Urine Negative Negative [facility] 06/26/2025 2:58 PM EST 06/26/2025 3:01 PM EST Narrative [facility] - 06/26/2025 3:07 PM EST Urine, Clean Catch us Generic External Data Provider LAB URINE ORDERAB LES Final Result Performing Organization Address City/State/[facility] de Phone Number [facility] [address] [place] [phone] * CT Abdomen Pelvis w/o Contrast (06/26/2025 1:34 PM EST) Anatomical Region Laterality Modality Body, Pelvis, Abdomen Computed T omography 06/26/2025 1:34 PM EST Narrative 06/26/2025 1:35 PM EST [address] [address] [address] Scan Report Signed Patient: Nikky Guevara MR#: [id number] : 1935 Acct:[id number] Age/Sex: 89 / F ADM Date: 06/26/25 Loc: HO.ED Attending Dr: Ordering Physician: Neha Roman Date of Service: 06/26/25 Procedure(s): CT abdomen pelvis wo IV con Accession Number(s): [id number] cc: Valeri Lerner DO; Neha Roman Report Number: [id number]: Total DLP = 1078.00 mGy-cm Reason for Exam: L flank pain CLINICAL HISTORY: L flank pain CT abdomen and pelvis without contrast Comparison: CT/SR - CT ABDOMEN PELVIS COLONOGRAPHY WITHOUT IV CONTRAST - 01/06/25 10:[address]/SR - CT ABDOMEN PELVIS WO IV CON - 09/16/24 13:50 EST Findings: No hydronephrosis. Right nephrolithiasis measures 2 mm. No left nephrolithiasis. Bilateral renal cysts. No bladder stone. Mild wall thickening of the bladder. No consolidation at the lung bases. Small bilateral pleural effusions. Cholelithiasis. No definitive gallbladder wall thickening or pericholecystic fluid; there is motion. Pancreatic lipomatosis. Focus of air in the lower uterine segment, likely in the endometrial canal, also present on the prior study. Thickened endometrium, measuring 1.4 cm, previously measuring 1.7 cm. The other solid organs are normal. No bowel wall thickening or dilation. A normal appendix is identified. Colonic diverticulosis. No aneurysm. Moderate calcified atherosclerotic disease. Infrarenal inferior vena cava filter. No lymphadenopathy. No ascites. No acute fracture. Impression: [No urinary tract obstruction. Mild wall thickening of the bladder. Correlate with urinalysis to exclude cystitis. Small bilateral pleural effusions. Thickening of the endometrium. Follow up with gynecology. This document has been electronically signed by: Crystal Bullock MD on 06/26/2025 13:34:51 Dictated By: Crystal Dumont MD Signed By: <Electronically signed by Crystal Dumont MD in OV> 06/26/25 1335 DD/ 1334 TD/TT: 06/26/25 1334 Assembly Machine Feeder: Procedure Note Donotuseinterpreter, Image - 06/26/[address] [place] [id number] [address] Scan Report Signed Patient: Cassie Guevara#: [id number] : 6Acct:[id number] Age/Sex: 89 / FADM Date: 06/26/25 Loc: HO.ED Attending Dr: Ordering Physician: Neha Roman Date of Service: 06/26/25 Procedure(s): CT abdomen pelvis wo IV con Accession Number(s): [id number] cc: Valeri Lerner DO; Neha Roman Report Number: [id number]: Total DLP = 1078.00 mGy-cm Reason for Exam: L flank pain CLINICAL HISTORY: L flank pain CT abdomen and pelvis without contrast Comparison: CT/SR - CT ABDOMEN PELVIS COLONOGRAPHY WITHOUT IV CONTRAST - 01/06/25 10:[address]/SR - CT ABDOMEN PELVIS WO IV CON - 09/16/24 13:50 EST Findings: No hydronephrosis. Right nephrolithiasis measures 2 mm. No left nephrolithiasis. Bilateral renal cysts. No bladder stone. Mild wall thickening of the bladder. No consolidation at the lung bases. Small bilateral pleural effusions. Cholelithiasis. No definitive gallbladder wall thickening or pericholecystic fluid; there is motion. Pancreatic lipomatosis. Focus of air in the lower uterine segment, likely in the endometrial canal, also present on the prior study. Thickened endometrium, measuring 1.4 cm, previously measuring 1.7 cm. The other solid organs are normal. No bowel wall thickening or dilation. A normal appendix is identified. Colonic diverticulosis. No aneurysm. Moderate calcified atherosclerotic disease. Infrarenal inferior vena cava filter. No lymphadenopathy. No ascites. No acute fracture. Impression: [No urinary tract obstruction. Mild wall thickening of the bladder. Correlate with urinalysis to exclude cystitis. Small bilateral pleural effusions. Thickening of the endometrium. Follow up with gynecology. This document has been electronically signed by: Crystal Bullock MD on 06/26/2025 13:34:51 Dictated By: Crystal Dumont MD Signed By: <Electronically signed by Crystal Dumont MD in OV> 06/26/25 1335 DD/ 1334 TD/TT: 06/26/25 1334 Assembly Machine Feeder: [facility] External Provider IMG CT PROCEDURES Final Result * (ABNORMAL) Prothrombin Time-INR (06/23/2025) Only the most recent of8 resultswithin the time period is included. Pathologist [facility] INR 2.60(A) 2.00 - 3.00 Protime Blood Venous blood specimen / Unknown 06/23/2025 Historical Provider LAB BLOOD ORDERABLES Anastasiya l Result * (ABNORMAL) Glucose, Whole Blood (05/28/2025 7:16 AM EDT) Only the most recent of2 resultswithin the time period is included. Pathologist [facility] Glucose, Whole Blood 117(H) 60 - 115 mg/dL [facility] Comment:METER #: [id number] 05/28/2025 7:16 AM EDT 05/28/2025 7:20 AM EDT Generic External Data Provider LAB BLOOD ORDERAB LES Final Result Performing Organization Address [facility] Co de Phone Number [facility] [address] [place] [phone] * Blood Culture (First) (05/27/2025 10:18 PM EDT) Blood Venous blood specimen / Unknown 05/27/2025 10:18 PM EDT 05/27/2025 10:23 PM EDT Comment:Blood Narrative [facility] - 06/02/2025 12:24 AM EST Blood Culture (First) No growth after 5 days. Specimen Source: Blood Generic External Data Provider LAB MICROBIOLOGY - GENERAL ORDERABLES Final Result Performing Organization Address [facility] Co de Phone Number [facility] [address] [place] [phone] * Blood Culture (Second) (05/27/2025 10:18 PM EDT) Blood Venous blood specimen / Unknown 05/27/2025 10:18 PM EDT 05/27/2025 10:28 PM EDT Comment:Blood Narrative [facility] - 06/02/2025 12:28 AM EST Blood Culture (Second) No growth after 5 days. Specimen Source: Blood Generic External Data Provider LAB MICROBIOLOGY - GENERAL ORDERABLES Final Result Performing Organization Address [facility] Co de Phone Number [facility] [address] [place] [phone] * Lactic Acid (05/27/2025 10:18 PM EDT) Lactic Acid 0.8 0.5 - 2.0 mmol/L [facility] 05/27/2025 10:1 8 PM EDT 05/27/2025 10:23 PM EDT Generic External Data Provider LAB BLOOD ORDERAB LES Final Result Performing Organization Address [facility]/ZIP Co de Phone Number [facility] [address] [place] [phone] * Influenza A B2 ID NOW (Crowe) (05/27/2025 6:11 PM EDT) IDNOW SERIAL# [id number] [facility] Influenza A Negative Negative [facility] Influenza B2 Negative Negative [facility] Influenza A B2 Note See Note [facility] Comment:The Crowe ID NOW In [...] ORDERABLES Final Result Performing Organization Address [facility] Co de Phone Number [facility] [address] [place] [phone] * COVID-19 ID NOW (CROWE) (05/27/2025 6:11 PM EDT) IDNOW SERIAL# [id number] [facility] COVID-19 TEST Negative Negative [facility] COVID-19 NOTE See Note [facility] Comment: Results are for the identification of SARS-CoV2 RNA. TheSARS-CoV2 RNA is generally detectable in respiratory samplesduring the acute phase of infection. Positive results areindicative of the presence of SARS-CoV-2 RNA; clinicalcorrelation with patient history and other diagnosticinformation is necessary to determine patient infectionstatus. Positive results do not rule out bacterial infectionor co- infection with other viruses.Testing facilities within the [place] and itsterritories are required to report all positive results [...] use by authorized laboratories.Testing performed on the [employer] NOW utilizing NAAT. 05/27/2025 6:11 PM EDT 05/27/2025 6:15 PM EDT us Generic External Data Provider LAB MOLECULAR NELSON GNOSTICS ORDERABLES Final Result [facility] [address] [place] [phone] * (ABNORMAL) CBC auto differential (05/27/2025 6:11 PM EDT) White Blood Count 10.8 4.8 - 10.8 X10*3/uL [facility] Red Blood Count 3.95(L) 4.20 - 5.50 X10*6/uL [facility] Hemoglobin 12.2 12.0 - 16.0 g/dl [facility] Hematocrit 38.1 37.0 - 47.0 % [facility] Mean Corpuscular Volume 96.5 80.0 - 98.0 fL [facility] Mean Corpuscular Hemoglobin 30.9 27.0 - 33.0 pg [facility] Mean Corpuscular HGB Conc 32.0 31.0 - 35.0 g/dl [facility] Red Cell Distribution Width 14.6 11.0 - 16.0 % [facility] Platelet Count 179 160 - 400 X10*3/uL [facility] Mean Platelet Volume 11.3 9.4 - 12.3 fL [facility] Neutrophils Percent Auto 78.5(H) 45 - 73 % [facility] Imm Gran Pct Auto 0.4 0.0 - 0.4 % [facility] Lymphocytes Percent Auto 11.9(L) 20 - 40 % [facility] Monocytes Percent Auto 6.0 2 - 11 % [facility] Eosinophils Percent Auto 2.9 0 - 4 % [facility] Basophils Percent Auto 0.3 0 - 2 % [facility] NRBC Pct Auto 0.0 0.0 - 0.2 /100WBC [facility] Neutrophils Absolute Auto 8.4(H) 2.0 - 8.3 x10*3/uL [facility] Imm Gran Abs Auto 0.04(H) 0.00 - 0.03 X10*3/uL [facility] Lymphocytes Absolute Auto 1.3 1.2 - 4.9 X10*3/uL [facility] Monocytes Absolute Auto 0.7 0.1 - 1.2 X10*3/uL [facility] Eosinophils Absolute Auto 0.3 0.0 - 0.4 X10*3/uL [facility] Basophils Absolute Auto 0.0 0.0 - 0.2 X10*3/uL [facility] NRBC Abs Auto 0.000 0.0 - 0.012 X10*3/uL [facility] 05/27/2025 6:11 PM EDT 05/27/2025 6:15 PM EDT us Generic External Data Provider LAB BLOOD ORDERAB LES Final Result [facility] [address] [place] [phone] * (ABNORMAL) Comprehensive Metabolic Panel (05/27/2025 6:11 PM EDT) Sodium 139 135 - 145 mmol/L [facility] Potassium 4.5 3.3 - 5.1 mmol/L [facility] Chloride 98 96 - 108 mmol/L [facility] Carbon Dioxide 34(H) 22 - 29 mmol/L [facility] Anion Gap 12 12 - 20 [facility] Urea Nitrogen (BUN) 38(H) 9 - 16 mg/dL [facility] Creatinine, Serum 1.24 0.5 - 1.4 mg/dL [facility] Creatinine Clr Calc Pharmacy 32.9 [facility] Comment:Provided height and weight: 157.48 cm,94.6 kg.eGFR (calculated from the MDRD study equation) and eCrCl(calculated from the Cockcroft-Gault equation) are based ondifferent parameters and may not yield comparable results.If eCrCl result is absurd, please check patient'sheight/weight. Estimated Glomerular Filt Rate 41 [facility] Comment:Chronic Kidney Disea se: Estimated GFR < 60 mL/min/1.55b8Hiyupd Kidney Disease: Estimated GFR < 15 mL/min/1.73m2 Glucose 219(H) 60 - 115 mg/dL [facility] Calcium 9.9 8.4 - 10.2 mg/dL [facility] Bilirubin, Total 0.6 0.0 - 1.0 mg/dL [facility] Aspartate Amino Transferase 28 5 - 31 U/L [facility] Alanine Aminotransferase 22 0 - 31 U/L [facility] Total Protein 7.9 6.5 - 8.0 g/dL [facility] Albumin Level 4.0 3.5 - 5.0 g/dL [facility] Alkaline Phosphatase 122(H) 39 - 117 U/L [facility] 05/27/2025 6:11 PM EDT 05/27/2025 6:15 PM EDT us Generic External Data Provider LAB BLOOD ORDERAB LES Final Result [facility] [address] [place] [phone] * Culture, Urine, Routine (05/27/2025 12:00 AM EDT) Urine Urine specimen obtained by clean catch procedure / Unknown 05/27/2025 05/27/2025 Comment:UACC Narrative [facility] - 05/29/2025 10:36 AM EDT Urine Culture Report Result Urine Culture 10,000 to 50,000 cfu/ml Urine Culture Mixed bacterial edilson characteristic of Urine Culture urogenital contamination. Specimen Source: Urine clean catch Generic External Data Provider LAB MICROBIOLOGY - GENERAL ORDERABLES Final Result [facility] [address] [place] [phone] * (ABNORMAL) POCT HGB A1C (03/07/2025 1:53 PM EDT) Hemoglobin A1C 7.6(A) 4.0 - 5.7 % QC Media Lot # [id number] Lot# Expiration Date Blood 03/07/2025 1:53 PM EDT [facility] LICENSE INSPECTOR POINT OF CARE TEST ENTER/EDIT ORDERABLES Final Result * Referral to Podiatry (01/10/2025) Valeri Lerner DO OUTPATIENT REFERRAL ORDERABL ES Final Result * (ABNORMAL) Albumin, Random Urine W/Creatinine (08/31/2023 4:16 PM EST) Creatinine, Urine 25.77 mg/dL [facility] Microalbumin Urine 31.0 mg/L H [facility] Microalbum Creatinine Ratio Ur 120.2(H) <30 ug/mg cr [facility] Comment:Albumin/Creatinine R atio Reference Ranges: Normal: < 30 ug/mg creatinine Microalbuminuria: 30 - 300 ug/mg creatinineClinical Albuminuria: > 300 ug/mg creatinine Urine (Urine, Random) 08/31/2023 4:16 PM EST 08/31/2023 5:27 PM EST Valeri Lerner DO LAB URINE ORDERABLES Final R esult Performing Organization Address City/[facility] Co de Phone Number [facility] [address] [place] [phone] * (ABNORMAL) Lipid Panel, Standard (08/31/2023 4:11 PM EST) Triglycerides 349(H) <150 mg/dL [facility] Comment:Desirable Triglyceri de: less than 150 mg/dLBorderline High Triglyceride 150-199 mg/dLHigh Triglyceride: 200-499 mg/dLVery High Triglyceride: greater than or equal to 5OO mg/dL Cholesterol 149 <200 mg/dL [facility] Comment:Desirable Cholestero l: less than 200 mg/dLBorderline High Cholesterol: 200-239 mg/dLHigh Cholesterol: greater than 239 mg/dL LDL Cholesterol Calculated 41 <100 mg/dL [facility] Comment:Desirable LDL: less than 100 mg/dLNear Optimal/Above Optimal LDL: 110- 129 mg/dLBorderline High LDL: 130-159 mg/dLHigh LDL: 160-189 mg/dLVery High LDL: greater than or equal to 190 mg/dL HDL Cholesterol 39(L) >40 mg/dL [facility] Comment:Desirable HDL: great er than 40 mg/dL Note: This HDL assay may give artificially low results in patients with liver disease. Blood Venous blood specimen / Unknown 08/31/2023 4:11 PM EST 08/31/2023 5:27 PM EST us Valeri Lerner DO LAB BLOOD ORDERABLES Final R esult Performing Organization Address City/[facility]/ZIP Co de Phone Number [facility] [address] [place] [phone] from Last 3 Months or Most [...] kidney disease 06/23/2025 Weekly blood pressure task 06/30/2025 Weekly blood pressure task 06/30/2025 Patient has chronic kidney disease 06/30/2025 Patient has chronic kidney disease 06/30/2025 Weekly blood pressure task 07/02/2025 Weekly blood pressure task 07/02/2025 Patient has chronic kidney disease 07/02/2025 Patient has chronic kidney disease 07/02/2025 Weekly blood pressure task 07/02/2025 Weekly blood pressure task 07/02/2025 Patient has chronic kidney disease 07/02/2025 Patient has chronic kidney disease 07/02/2025 Insurance [facility] [address] [place] [phone] [place] [phone] [place] [address] Care Teams Shipyard Painting Supervisor Relationship Specialty Start Date End Date Valeri Lerner DO [address] [place] [phone] PCP - General Family Medicine 07/13/12 [facility] 12/08/23
--- OUTSIDE RECORDS SUMMARY | 2025-07-11 18:05 | XMS_ITS | Patient Health Record ---
Author Organization [facility] Address [address] [place] [address] Care Team Providers Care Dietitian Helper Name Role Phone Tyler Garsia Unavailable [phone] Reason For Referral No Information Plan Of Treatment No Information
--- OUTSIDE RECORDS SUMMARY | 2025-07-11 18:05 | XMS_ITS | Encounter Summary ---
Author Organization [employer] Address [address] [facility] 7t [place] [address] Care Team Providers Care Duty Engineer Name Role Phone Valeri Lerner DO Primary Care Provider [phone] Batsheva Gomez PharmD Unavailable [phone] Encounter Details Date Type Department Care Team (Late st Contact Info) Description 01/26/2024 Telephone [facility] [address] [place], [place] [phone] Valeri Lerner DO [address] [place], [place] [phone] Social History Tobacco Use Types Packs/Day Years [...] documented as of this encounter Care Teams Duty Engineer Relationship Specialty Start Date End Date Valeri Lerner DO [address] [place] [address] PCP - General Family Medicine 07/13/12 Batsheva Gomez PharmD [address] [place] [address] Pharmacist Internal Medicine 03/07/24 12/19/24 [facility] 12/08/23 documented as of this encounter
--- OUTSIDE RECORDS SUMMARY | 2025-07-11 18:05 | XMS_ITS | Encounter Summary ---
Author Organization [employer] Address [address] [facility] [address]t [place] [address] Care Team Providers Care Plisse Machine Operator Name Role Phone Valeri Lerner DO Primary Care Provider [phone] Batsheva Gomez PharmD Unavailable [phone] Reason for Visit * Reason Comments Med Refill Encounter Details Date Type Department Care Team (Late st Contact Info) Description 06/20/2023 Refill [facility] [address] [place], [place] [phone] Valeri Lerner DO [address] [place], [place] [phone] Generalized anxiety disorder Social History Tobacco Use [...] disorder documented in this encounter Care Teams Plisse Machine Operator Relationship Specialty Start Date End Date Valeri Lerner DO [address] [place] [address] PCP - General Family Medicine 07/13/12 Batsheva Gomez PharmD [address] [place] [address] Pharmacist Internal Medicine 03/07/24 12/19/24 [facility] 12/08/23 documented as of this encounter
--- OUTSIDE RECORDS SUMMARY | 2025-07-11 18:05 | XMS_ITS | Encounter Summary ---
Author Organization [employer] Address [address] [facility] [address] [place] [address] Care Team Providers Care Furniture And Bedding Inspector Name Role Phone Valeri Lerner DO Primary Care Provider [phone] Batsheva Gomez PharmD Unavailable [phone] Reason for Visit * Reason Comments Med Refill Encounter Details Date Type Department Care Team (Late st Contact Info) Description 06/20/2023 Refill [facility] [address] [place] [address] Valeri Lerner DO [address] [place] [address] Social History Tobacco Use Types Packs/Day Years [...] on filedocumented in this encounter Care Teams Furniture And Bedding Inspector Relationship Specialty Start Date End Date Valeri Lerner DO [address] [place] [address] PCP - General Family Medicine 07/13/12 Batsheva Gomez PharmD [address] [place] [address] Pharmacist Internal Medicine 03/07/24 12/19/24 [facility] 12/08/23 documented as of this encounter
--- OUTSIDE RECORDS SUMMARY | 2025-07-11 18:06 | XMS_ITS | Encounter Summary ---
Author Organization [facility] Address [address] [place] [address] Care Team Providers Care Fixture Fabricator Repairer Name Role Phone Valeri Lerner Primary Care Provider [phone] Encounter Details Date Type Department Care Team (Late st Contact Info) Description 06/04/2025 Lab Requisition [facility] - Main Lab [address] [place] [address] Macario Green MD [address] [place], [place] [phone] Paroxysmal atrial fibrillation (CMS/HCC V24, CMS/HCC V28) [...] sec LAB COAGULATION METHOD 06/04/2025 10:08 AM EST [facility] INR 1.5 LAB COAGULATION METHOD 06/04/2025 10:08 AM [facility] Blood Venous blood specimen / Unknown Venipuncture / Unknown 06/04/2025 5:27 AM EST 06/04/2025 8:54 AM EST us Macario Green MD LAB BLOOD ORDERABLES Final R esult [facility] [address] [place] [address], documented in this encounter Visit Diagnoses Diagnosis Paroxysmal atrial fibrillation (CMS/HCC V24, CMS/HCC V28) Atrial fibrillation documented in this encounter Care Teams Fixture Fabricator Repairer Relationship Specialty Start Date End Date Valeri Lerner DO [address] [place] [address] PCP - General 11/15/14 documented as of this encounter
--- OUTSIDE RECORDS SUMMARY | 2025-07-11 18:06 | XMS_ITS | Encounter Summary ---
Author Organization [facility] Address [address] [place] [address] Care Team Providers Care Child Welfare Caseworker Name Role Phone Valeri Lerner Primary Care Provider [phone]- [phone] Encounter Details Date Type Department Care Team (Latest Contact Info) Description 06/03/2025 Lab Requisition [facility] - Main Lab [address] [facility] [place] [address] Macario Green MD [address] [place] [address] Heart failure, unspecified (CMS/HCC V24, CMS/HCC V28); Essential (primary) hypertension; Paroxysmal atrial fibrillation (CMS/HCC V24, CMS/HCC V28); 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 INR 1.4 LAB COAGULATION METHOD 06/03/2025 10:[address] [facility] Blood Venous blood specimen / Unknown Venipuncture / Unknown 06/03/2025 6:05 AM EST 06/03/2025 9:13 AM EST us Macario Green MD LAB BLOOD ORDERABLES Final R esult [facility] ([facility] [address] [place] [address], documented in this encounter Visit Diagnoses Diagnosis Heart failure, unspecified (CMS/[facility] V24, [facility] V28) Heart failure, unspecified Essential (primary) hypertension Unspecified essential hypertension Paroxysmal atrial fibrillation ([facility] V24, [facility] V28) Atrial fibrillation jail (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 Long-term (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 documented in this encounter Care Teams Child Welfare Caseworker Relationship Specialty Start Date End Date Valeri Lerner DO [address] [place] [address] PCP - General 11/15/14 documented as of this encounter
--- OUTSIDE RECORDS SUMMARY | 2025-07-11 18:06 | XMS_ITS | Encounter Summary ---
Author Organization [employer] Address [address] [facility] [address] [place] [address] Care Team Providers Care Estimator Project Manager Name Role Phone Valeri Lerner DO Primary Care Provider Batsheva Gomez PharmD Unavailable Reason for Visit * Reason Onset Date Comments Nurse Triage 03/25/2024 Encounter Details Date Type Department Care Team (Late st Contact Info) Description 03/25/2024 Telephone [facility] [address] [place], [place] [phone] Valeri Lerner DO [address] [place], [place] [phone] Nurse Triage Social History Tobacco Use Types [...] the past 12 months, has t he [employer], gas, oil or water [employer] threatened to shut off services in your [...] outcome Contact pt visiting nurse Artemio at [phone] documented in this encounter Plan of Treatment [...] 1:53 PM EDT) No Batsheva Gomez PharmD documented as of this encounter Visit Diagnoses Not on filedocumented in this encounter Additional Health Concerns Assessment Noted Time PHQ-9 Depression Total Score: 2 08/23/19 24 11:01 AM EST documented as of this encounter Care Teams Estimator Project Manager Relationship Specialty Start Date End Date Valeri Lerner DO [address] [place] [address] PCP - General Family Medicine 07/13/12 Batsheva Gomez PharmD [address] [place] [address] Pharmacist Internal Medicine 03/07/24 12/19/24 [facility] 12/08/23 documented as of this encounter
--- OUTSIDE RECORDS SUMMARY | 2025-07-11 18:06 | XMS_ITS | Clinical Summary ---
Author Organization [address] Address [address] [place] [address] Phone Care Team Providers Care Batterboard Setter Name Role Phone CarlynValeri townsend Primary Care Provider +1- [phone] Encounters Date Type Department Care Team Description 07/04/2025 Lab Requisition [facility] Lab [address] [place] [phone] Kymberly Horne MD Essential (primary) hypertension; Unspecified atrial fibrillation (CMS/HCC V24, CMS/HCC V28); Heart failure, unspecified (CMS/HCC V24, CMS/HCC V28); Chronic embolism and thrombosis of unspecified vein 07/03/2025 Lab Requisition [facility] Lab [address] [place] [phone] Kymberly Horne MD Chronic embolism and thrombosis of unspecified vein 07/02/2025 Lab Requisition [facility] Lab [address] [place] [phone] Kymberly Horne MD Essential (primary) hypertension; Unspecified atrial fibrillation (CMS/HCC V24, CMS/HCC V28); Type 2 diabetes mellitus with unspecified complications (CMS/HCC V24, CMS/HCC V28) 06/11/2025 Lab Requisition [facility] Lab [address] [place] [phone] Macario Green MD Unspecified atrial fibrillation (CMS/HCC V24, CMS/HCC V28) 06/10/2025 Lab Requisition [facility] Lab [address] [place] [phone] Macario Green MD Unspecified atrial fibrillation ([facility] V24, [facility]/HCC V28) 06/09/2025 Lab Requisition [facility] Lab [address] [place] [phone] Macario Green MD Unspecified atrial fibrillation ([facility]/HCC V24, [facility]/HCC V28) 06/07/2025 Lab Requisition [facility] Lab [address] [place] [phone] Macario Green MD longterm (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 06/05/2025 Lab Requisition [facility] Lab [address] [place] [phone] Macario Green MD Unspecified atrial fibrillation ([facility] V24, [facility] V28) 06/04/2025 Lab Requisition [facility] Lab [address] [place] [phone] Macario Green MD Paroxysmal atrial fibrillation ([facility] V24, [facility] V28) 06/03/2025 Lab Requisition [facility] Lab [address] [place] [phone] Macario Green MD Heart failure, unspecified ([facility] V24, [facility] V28); Essential (primary) hypertension; Paroxysmal atrial fibrillation ([facility] V24, [facility] V28); longterm (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 06/02/2025 Lab Requisition [facility] Lab [address] [place] [phone] Macario Green MD terminologist (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 05/30/2025 Lab Requisition [facility] Lab [address] [place] [phone] Macario Green MD Type 2 diabetes mellitus with diabetic polyneuropathy ([facility] V24, [facility] V28); Hyperlipidemia, unspecified; Chronic atrial fibrillation, unspecified ([facility] V24, [facility] V28); Essential (primary) hypertension; longterm (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 from Last 3 [...] , 04/26/2024, 08/23/2023, Additional history exists Diabetes: Blood Sugar Control Test (HGBA1C) 12/31/2025 07/02/2025, 03/07/2025, 10/30/2024, Additional history exists Diabetes: Annual Foot Exam 01/10/2026 01/10/2025 Hypertension/CHF/CAD Annual BMP Blood Test 07/07/2026 07/07/2025, 07/02/2025, 05/30/2025, Additional history exists Cholesterol Screening (Lipid Panel) [...] Diagnosis Comments PROTHROMBIN TIME WITH INR Routine 07/07/2025 4:43 AM EST Essential (primary) hypertension Unspecified atrial fibrillation (CMS/HCC V24, CMS/HCC V28) Heart failure, unspecified (CMS/HCC V24, CMS/HCC V28) Chronic embolism and thrombosis of unspecified vein BASIC METABOLIC PANEL Routine 07/07/2025 4:43 AM EST Essential (primary) hypertension Unspecified atrial fibrillation (CMS/HCC V24, CMS/HCC V28) Heart failure, unspecified (CMS/HCC V24, CMS/HCC V28) Chronic embolism and thrombosis of unspecified vein COMPLETE BLOOD COUNT Routine 07/07/2025 4:43 AM EST Essential (primary) hypertension Unspecified atrial fibrillation (CMS/HCC V24, CMS/HCC V28) Heart failure, unspecified (CMS/HCC V24, CMS/HCC V28) Chronic embolism and thrombosis of unspecified vein PROTHROMBIN TIME WITH INR Routine 07/04/2025 7:17 AM EST Chronic embolism and thrombosis of unspecified vein HEMOGLOBIN A1C Routine 07/02/2025 8:03 AM EST Essential (primary) hypertension Unspecified atrial fibrillation (CMS/HCC V24, CMS/HCC V28) Type 2 diabetes mellitus with unspecified complications (CMS/HCC V24, CMS/HCC V28) BASIC METABOLIC PANEL Routine 07/02/2025 8:03 AM EST Essential (primary) hypertension Unspecified atrial fibrillation (CMS/HCC V24, CMS/HCC V28) Type 2 diabetes mellitus with unspecified complications (CMS/HCC V24, CMS/HCC V28) PROTHROMBIN TIME WITH INR Routine 07/02/2025 8:03 AM EST Essential (primary) hypertension Unspecified atrial fibrillation (CMS/HCC V24, CMS/HCC V28) Type 2 diabetes mellitus with unspecified complications (CMS/HCC V24, CMS/HCC V28) COMPLETE BLOOD COUNT Routine 07/02/2025 8:03 AM EST Essential (primary) hypertension Unspecified atrial fibrillation (CMS/HCC V24, CMS/HCC V28) Type 2 diabetes mellitus with unspecified complications (CMS/HCC V24, CMS/HCC V28) PROTHROMBIN TIME WITH INR Routine 06/12/2025 7:54 AM EST Unspecified atrial fibrillation (CMS/HCC V24, CMS/HCC V28) PROTHROMBIN TIME WITH INR Routine 06/10/2025 6:10 AM EST Unspecified atrial fibrillation (CMS/HCC V24, CMS/HCC V28) PROTHROMBIN TIME WITH INR Routine 06/09/2025 8:05 AM EST Unspecified atrial fibrillation (CMS/HCC V24, CMS/HCC V28) PROTHROMBIN TIME WITH INR Routine 06/07/2025 5:28 AM EST terminologist (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 PROTHROMBIN TIME WITH INR Routine 06/05/2025 7:00 AM EST Unspecified atrial fibrillation (CMS/HCC V24, CMS/HCC V28) PROTHROMBIN TIME WITH INR Routine 06/04/2025 5:27 AM EST Paroxysmal atrial fibrillation (CMS/HCC V24, CMS/HCC V28) PROTHROMBIN TIME WITH INR Routine 06/03/2025 6:05 AM EST Heart failure, unspecified (CMS/HCC V24, CMS/HCC V28) Essential (primary) hypertension Paroxysmal atrial fibrillation (CMS/HCC V24, CMS/HCC V28) longterm (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 PROTHROMBIN TIME WITH INR Routine 06/02/2025 6:24 AM EST longterm (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 PROTHROMBIN TIME WITH INR Routine 05/30/2025 6:09 AM EDT 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, CMS/HCC V28) Hyperlipidemia, unspecified Chronic atrial fibrillation, unspecified (CMS/HCC V24, CMS/HCC V28) Essential (primary) hypertension terminologist (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 BASIC METABOLIC PANEL Routine 05/30/2025 6:09 AM EDT 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, CMS/HCC V28) Hyperlipidemia, unspecified Chronic atrial fibrillation, unspecified (CMS/HCC V24, CMS/HCC V28) Essential (primary) hypertension longterm (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 COMPLETE BLOOD COUNT Routine 05/30/2025 6:09 AM EDT 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, CMS/HCC V28) Hyperlipidemia, unspecified Chronic atrial fibrillation, unspecified (CMS/HCC V24, CMS/HCC V28) Essential (primary) hypertension longterm (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 from Last 3 Months Results * (ABNORMAL) Prothrombin time with INR (07/07/2025 4:43 AM EST) Only the most recent of12 resultswithin the time period is included. Protime 30.7(H) 10.6 - 13.9 sec LAB COAGULATION METHOD 07/07/2025 10:20 AM EST [facility] INR 2.5 LAB COAGULATION METHOD 07/07/2025 10:20 AM EST [facility] Blood Venous blood specimen / Unknown Venipuncture / Unknown 07/07/2025 4:43 AM EST 07/07/2025 9:17 AM EST us Kymberly Horne MD LAB BLOOD ORDERABLES Fin al Result [facility] [address] [place] [address], * (ABNORMAL) Complete blood count (07/07/2025 4:43 AM EST) Only the most recent of3 resultswithin the time period is included. Pathologist [facility] WBC 8.2 4.8 - 10.8 K/mcL LAB HEMETOLOGY METHOD 07/07/2025 10:20 AM EST [facility] RBC 3.90 3.80 - 4.80 M/mcL LAB HEMETOLOGY METHOD 07/07/2025 10:20 AM [facility] Hemoglobin 11.8 11.5 - 16.0 g/dL LAB HEMETOLOGY METHOD 07/07/2025 10:20 AM [facility] Hematocrit 37.3 35.0 - 47.0 % LAB HEMETOLOGY METHOD 07/07/2025 10:20 AM [facility] MCV 96.6 79.0 - 98.0 FL LAB HEMETOLOGY METHOD 07/07/2025 10:20 AM [facility] MCH 30.6 27.0 - 32.0 pcg LAB HEMETOLOGY METHOD 07/07/2025 10:20 AM [facility] MCHC 31.6(L) 32.0 - 37.0 g/dL LAB HEMETOLOGY METHOD 07/07/2025 10:20 AM [facility] RDW 14.0 11.0 - 15.0 % LAB HEMETOLOGY METHOD 07/07/2025 10:20 AM [facility] Platelets 184 130 - 400 K/mcL LAB HEMETOLOGY METHOD 07/07/2025 10:20 AM [facility] MPV 11.6(H) 7.0 - 11.0 FL LAB HEMETOLOGY METHOD 07/07/2025 10:20 AM EST [facility] NRBC 0.0 <1.0 % LAB HEMETOLOGY METHOD 07/07/2025 10:20 AM EST [facility] NRBC Absolute 0.00 <0.10 K/mcL LAB HEMETOLOGY METHOD 07/07/2025 10:20 AM [facility] Blood Venous blood specimen / Unknown Venipuncture / Unknown 07/07/2025 4:43 AM EST 07/07/2025 9:17 AM EST us Kymberly Horne MD LAB BLOOD ORDERABLES Fin al Result [facility] [address] [place] [address], [place] [phone] * (ABNORMAL) Basic metabolic panel (07/07/2025 4:43 AM EST) Only the most recent of3 resultswithin the time period is included. Sodium 140 133 - 145 mmol/L 07/07/2025 10:58 AM [facility] Potassium 4.4 3.5 - 5.5 mmol/L 07/07/2025 10:58 AM [facility] Chloride 99 96 - 110 mmol/L 07/07/2025 10:58 AM [facility] CO2 33(H) 21 - 32 mmol/L 07/07/2025 10:58 AM [facility] Anion Gap 8 3 - 11 07/07/2025 10:58 AM [facility] Glucose 98 70 - 100 mg/dL 07/07/2025 10:58 AM [facility] BUN 31(H) 5 - 25 mg/dL 07/07/2025 10:58 AM [facility] Creatinine 1.23(H) 0.50 - 1.10 mg/dL 07/07/2025 10:58 AM EST [facility] eGFR 42(L) >=60 mL/min/1. 73m2 07/07/2025 10:58 AM [facility] Comment:Calculation based on the Chronic Kidney Disease Epidemiology Collaboration (CKD-EPI) equation refit without adjustment for race. BUN/Creatinine Ratio 25.2 07/07/2025 10:58 AM [facility] Calcium 9.7 8.5 - 10.5 mg/dL 07/07/2025 10:58 AM [facility] Blood Venous blood specimen / Unknown Venipuncture / Unknown 07/07/2025 4:43 AM EST 07/07/2025 9:17 AM EST Kymberly Horne MD LAB BLOOD ORDERABLES Fin al Result [facility] [address] [place] [address], [place] [phone] * (ABNORMAL) Hemoglobin A1c (07/02/2025 8:03 AM EST) Hemoglobin A1C 6.7(H) <6.5 % LAB CHEMISTRY METHOD 07/02/2025 2:06 PM [facility] Mean Bld Glu Estim. 146 mg/dL LAB CHEMISTRY METHOD 07/02/2025 2:06 PM [facility] Blood Venous blood specimen / Unknown Venipuncture / Unknown 07/02/2025 8:03 AM EST 07/02/2025 10:06 AM EST Kymberly Horne MD LAB BLOOD ORDERABLES Fin al Result [facility] [address] [place] [address], [place] [phone] from Last 3 Months Insurance [facility] [place] [place] [id number] Care Teams Batterboard Setter Relationship Specialty Start Date End Date Valeri Lerner DO [address] [place] [address] PCP - General 11/15/14
--- OUTSIDE RECORDS SUMMARY | 2025-07-11 18:06 | XMS_ITS | Encounter Summary ---
Author Organization [employer] Address [address] [facility] [address] [place] [address] Care Team Providers Care Homicide Squad Commanding Officer Name Role Phone Valeri Lerner DO Primary Care Provider +1 [phone] Reason for Visit * Reason Onset Date Comments Hospital Follow-up 06/13/2025 Encounter Details Date Type Department Care Team (Late st Contact Info) Description 06/13/[address] [facility] MEDICINE [address] [place], [place] [phone] Valeri Lerner DO [address] [place], [place] [phone] Hospital Follow-up Social History Tobacco Use Types [...] from pt requesting a HDF appt. Hospital: [facility] Date of admission: apr on date Discharge date: 06/12/25 Diagnosed: leg swelling Please contact daughter at [phone]. documented in this encounter Plan of Treatment [...] 1:53 PM EDT) No Puia, Batsheva, PharmD Help patients manage their type [...] documented as of this encounter Care Teams Homicide Squad Commanding Officer Relationship Specialty Start Date End Date Valeri Lerner DO [address] [place] [id number] PCP - General Family Medicine 07/13/12 Track the Bet 12/08/23 documented as of this encounter
--- OUTSIDE RECORDS SUMMARY | 2025-07-11 18:06 | XMS_ITS | Encounter Summary ---
Author Organization [facility] Address [address] [place] [address] Care Team Providers Care [employer] Attendant Name Role Phone Valeri Lerner Primary Care Provider [phone]- [phone] Encounter Details Date Type Department Care Team (Latest Contact Info) Description 10/22/2024 Lab Requisition [facility] Lab [address] [facility] [place] [address] Amrita Polanco MD [address] [place] [id number] Essential (primary) hypertension; Unspecified atrial fibrillation (CMS/HCC [...] mmol/L LAB CHEMISTRY METHOD 10/22/2024 11:07 AM [facility] Potassium 3.6 3.5 - 5.5 mmol/L LAB CHEMISTRY METHOD 10/22/2024 11:07 AM [facility] Chloride 105 96 - 110 mmol/L LAB CHEMISTRY METHOD 10/22/2024 11:07 AM [facility] CO2 30 21 - 32 mmol/L LAB CHEMISTRY METHOD 10/22/2024 11:07 AM [facility] Anion Gap 7 3 - 11 LAB CHEMISTRY METHOD 10/22/2024 11:07 AM [facility] Glucose 85 70 - 100 mg/dL LAB CHEMISTRY METHOD 10/22/2024 11:07 AM [facility] BUN 22 5 - 25 mg/dL LAB CHEMISTRY METHOD 10/22/2024 11:07 AM [facility] Creatinine 1.22(H) 0.50 - 1.10 mg/dL LAB CHEMISTRY METHOD 10/22/2024 11:07 AM [facility] eGFR 43(L) >=60 mL/min/1. 73m2 LAB CHEMISTRY METHOD 10/22/2024 11:07 AM [facility] Comment:Calculation based on the Chronic Kidney Disease Epidemiology Collaboration (CKD-EPI) equation refit without adjustment for race. BUN/Creatinine Ratio 18.0 LAB CHEMISTRY METHOD 10/22/2024 11:07 AM [facility] Calcium 9.9 8.5 - 10.5 mg/dL LAB CHEMISTRY METHOD 10/22/2024 11:07 AM [facility] Blood Venous blood specimen / Unknown Venipuncture / Unknown 10/22/2024 6:16 AM EDT 10/22/2024 9:34 AM EDT us Amrita Polanco MD LAB BLOOD ORDERABLES Final Resu lt Performing Organization Address City/[facility]/ZIP Co de Phone Number [facility] [address] [place] [address], [place] [phone] * (ABNORMAL) Prothrombin time with INR (10/22/2024 6:16 AM EDT) Pathologist [facility] Protime 36.0(H) 10.6 - 13.9 sec LAB COAGULATION METHOD 10/22/2024 10:31 AM EDT [facility] INR 2.9 LAB COAGULATION METHOD 10/22/2024 10:31 AM EDT [facility] Blood Venous blood specimen / Unknown Venipuncture / Unknown 10/22/2024 6:16 AM EDT 10/22/2024 9:34 AM EDT us Amrita Polanco MD LAB BLOOD ORDERABLES Final Resu lt Performing Organization Address [facility]/ZIP Co de Phone Number [facility] [address] [place] [address], [place] [phone] * (ABNORMAL) Complete blood count (10/22/2024 6:16 AM EDT) [facility] WBC 9.2 4.8 - 10.8 K/mcL LAB HEMETOLOGY METHOD 10/22/2024 10:30 AM EDT [facility] RBC 3.70(L) 3.80 - 4.80 M/mcL LAB HEMETOLOGY METHOD 10/22/2024 10:30 AM EDT [facility] Hemoglobin 11.4(L) 11.5 - 16.0 g/dL LAB HEMETOLOGY METHOD 10/22/2024 10:30 AM EDT [facility] Hematocrit 35.8 35.0 - 47.0 % LAB HEMETOLOGY METHOD 10/22/2024 10:30 AM EDT [facility] MCV 96.8 79.0 - 98.0 FL LAB HEMETOLOGY METHOD 10/22/2024 10:30 AM EDT [facility] MCH 30.8 27.0 - 32.0 pcg LAB HEMETOLOGY METHOD 10/22/2024 10:30 AM EDT [facility] MCHC 31.8(L) 32.0 - 37.0 g/dL LAB HEMETOLOGY METHOD 10/22/2024 10:30 AM EDT [facility] RDW 13.8 11.0 - 15.0 % LAB HEMETOLOGY METHOD 10/22/2024 10:30 AM EDT [facility] Platelets 328 130 - 400 K/mcL LAB HEMETOLOGY METHOD 10/22/2024 10:30 AM EDT [facility] MPV 10.9 7.0 - 11.0 FL LAB HEMETOLOGY METHOD 10/22/2024 10:30 AM EDT [facility] NRBC 0.0 <1.0 % LAB HEMETOLOGY METHOD 10/22/2024 10:30 AM EDT [facility] NRBC Absolute 0.00 <0.10 K/mcL LAB HEMETOLOGY METHOD 10/22/2024 10:30 AM T [facility] Blood Venous blood specimen / Unknown Venipuncture / Unknown 10/22/2024 6:16 AM EDT 10/22/2024 9:34 AM EDT us Amrita Polanco MD LAB BLOOD ORDERABLES Final Resu lt [facility] [address] [place] [address], documented in this encounter Visit Diagnoses Diagnosis Essential (primary) hypertension Unspecified essential hypertension Unspecified atrial fibrillation (CMS/HCC V24, CMS/HCC V28) Type 2 diabetes mellitus without complications ([facility]/HCC V24, [facility] V28) documented in this encounter Care Teams [employer] Attendant Relationship Specialty Start Date End Date Valeri Lerner DO [address] [place], [place] PCP - General 11/15/14 documented as of this encounter
--- OUTSIDE RECORDS SUMMARY | 2025-07-11 18:06 | XMS_ITS | Encounter Summary ---
Author Organization [employer] Address [address] [place] [address] [address] [place] [address] Care Team Providers Care Apprentice Funeral Director Name Role Phone Valeri Lerner DO Primary Care Provider [phone] PuBatsheva landrum PharmD Unavailable [phone] Encounter Details Date Type Department Care Team (Late st Contact Info) Description 08/03/2022 Orders Only [facility] [address] [place] [address] Valeri Renner LPN Social History Tobacco Use [...] EST) Protime 26.1(H) 11.1 - 13.5 sec [facility] 07/14/2023 11:0 7 AM EST 07/14/2023 11:08 AM EST Generic External Data Provider LAB BLOOD ORDERAB LES Final Result [facility] [address] [place] [phone] * (ABNORMAL) ~PT, ~INR - [facility] (07/14/2023 11:07 AM EST) Prothrombin Time INR 2.2(H) 0.9 - 1.1 [facility] Comment:METER #: [id number] TERNATIONAL NORMALIZED RATIO (INR) REFERENCE RANGES Reference [...] ORDERAB LES Final Result Performing Organization Address [facility] Co de Phone Number [facility] [address] [place] [phone] * (ABNORMAL) PROTHROMBIN TIME WHOLE BLD POC (06/09/2023 11:34 AM EST) Protime 23.9(H) 11.1 - 13.5 sec [facility] 06/09/2023 11:3 4 AM EST 06/09/2023 11:36 AM EST Generic External Data Provider LAB BLOOD ORDERAB LES Final Result Performing Organization Address [facility] Phone Number [facility] [address] [place] [address] [phone] * (ABNORMAL) ~PT, ~INR - ANTI [facility]AG [facility] (06/09/2023 11:34 AM EST) Prothrombin Time INR 2.0(H) 0.9 - 1.1 [facility] Comment:METER #: [id number] TERNATIONAL NORMALIZED RATIO (INR) REFERENCE RANGES Reference [...] ORDERAB LES Final Result Performing Organization Address [facility] Co de Phone Number [facility] [address] [place] [address] [phone] * (ABNORMAL) PROTHROMBIN TIME WHOLE BLD POC (03/22/2023 11:23 AM EDT) Protime 38.5(H) 11.1 - 13.5 sec [facility] 03/22/2023 11:2 3 AM EDT 03/22/2023 11:25 AM EDT Generic External Data Provider LAB BLOOD ORDERAB LES Final Result Performing Organization Address [facility] Co de Phone Number [facility] [address] [place] [phone] * (ABNORMAL) ~PT, ~INR - ANTI [facility]AG CLINIC (03/22/2023 11:23 AM EDT) [facility] Prothrombin Time INR 3.2(H) 0.9 - 1.1 [facility] Comment:METER #: [id number] TERNATIONAL NORMALIZED RATIO (INR) REFERENCE RANGES Reference [...] 3 AM EDT 03/22/2023 11:25 AM EDT [facility] External Provider LAB BLO OD ORDERABLES Final Result Performing Organization Address [facility]/ZIP Co de Phone Number [facility] [address] [place] [address] [phone] * (ABNORMAL) PROTHROMBIN TIME WHOLE BLD POC (03/01/2023 11:31 AM EDT) Protime 26.8(H) 11.1 - 13.5 sec [facility] 03/01/2023 11:3 1 AM EDT 03/01/2023 11:33 AM EDT Generic External Data Provider LAB BLOOD ORDERAB LES Final Result Performing Organization Address [facility] Co de Phone Number [facility] [address] [place] [address] [phone] * (ABNORMAL) ~PT, ~INR - ANTI [facility]AG CLINIC (03/01/2023 11:31 AM EDT) Prothrombin Time INR 2.2(H) 0.9 - 1.1 [facility] Comment:METER #: [id number] TERNATIONAL NORMALIZED RATIO (INR) REFERENCE RANGES Reference [...] 1 AM EDT 03/01/2023 11:33 AM EDT [facility] External Provider LAB BLO OD ORDERABLES Final Result Performing Organization Address [facility] de Phone Number [facility] [address] [place] [address] [phone] * (ABNORMAL) PROTHROMBIN TIME WHOLE BLD POC (02/08/2023 11:20 AM EDT) Protime 26.7(H) 11.1 - 13.5 sec [facility] 02/08/2023 11:2 0 AM EDT 02/08/2023 11:22 AM EDT [facility] External Provider LAB BLO OD ORDERABLES Final Result Performing Organization Address [facility] Co de Phone Number [facility] [address] [place] [address] [phone] * (ABNORMAL) ~PT, ~INR - ANTI [facility]AG [facility]IN[facility] (02/08/2023 11:20 AM EDT) Prothrombin Time INR 2.2(H) 0.9 - 1.1 [facility] Comment:METER #: [id number] TERNATIONAL NORMALIZED RATIO (INR) REFERENCE RANGES Reference [...] 0 AM EDT 02/08/2023 11:22 AM EDT [facility] External Provider LAB BLO OD ORDERABLES Final Result [facility] [address] [place] [address] [phone] * (ABNORMAL) PROTHROMBIN TIME WHOLE BLD POC (01/18/2023 2:41 PM EDT) Protime 25.7(H) 11.1 - 13.5 sec [facility] 01/18/2023 2:41 PM EDT 01/18/2023 2:43 PM EDT [facility] External Provider LAB BLO OD ORDERABLES Final Result [facility] [address] [place] [phone] * (ABNORMAL) ~PT, ~INR - ANTI [facility]AG CLINIC (01/18/2023 2:41 PM EDT) Prothrombin Time INR 2.1(H) 0.9 - 1.1 [facility] Comment:METER #: [id number] TERNATIONAL NORMALIZED RATIO (INR) REFERENCE RANGES Reference [...] 2:41 PM EDT 01/18/2023 2:43 PM EDT [facility] External Provider LAB BLO OD ORDERABLES Final Result Performing Organization Address City/[facility]/ZIP Co de Phone Number [facility] [address] [place] [address] [phone] * (ABNORMAL) PROTHROMBIN TIME WHOLE BLD POC (12/30/2022 11:46 AM EDT) Protime 20.5(H) 11.1 - 13.5 sec [facility] 12/30/2022 11:4 6 AM EDT 12/30/2022 11:48 AM EDT [facility] External Provider LAB BLO OD ORDERABLES Final Result Performing Organization Address City/[facility] Co de Phone Number [facility] [address] [place] [address] [phone] * (ABNORMAL) ~PT, ~INR - ANTI [facility]AG CLINIC (12/30/2022 11:46 AM EDT) Prothrombin Time INR 1.7(H) 0.9 - 1.1 [facility] Comment:METER #: [id number] TERNATIONAL NORMALIZED RATIO (INR) REFERENCE RANGES Reference [...] 6 AM EDT 12/30/2022 11:48 AM EDT [facility] External Provider LAB BLO OD ORDERABLES Final Result Performing Organization Address [facility] Co de Phone Number [facility] [address] [place] [address] [phone] * (ABNORMAL) PROTHROMBIN TIME WHOLE BLD POC (12/15/2022 10:26 AM EDT) Protime 23.7(H) 11.1 - 13.5 sec [facility] 12/15/2022 10:2 6 AM EDT 12/15/2022 10:28 AM EDT [facility] External Provider LAB BLO OD ORDERABLES Final Result Performing Organization Address [facility] Co de Phone Number [facility] [address] [place] [address] [phone] * (ABNORMAL) ~PT, ~INR - ANTI [facility]AG CLINIC (12/15/2022 10:26 AM EDT) Prothrombin Time INR 2.0(H) 0.9 - 1.1 [facility] Comment:METER #: [id number] TERNATIONAL NORMALIZED RATIO (INR) REFERENCE RANGES Reference [...] 6 AM EDT 12/15/2022 10:28 AM EDT [facility] External Provider LAB BLO OD ORDERABLES Final Result Performing Organization Address [facility] de Phone Number [facility] [address] [place] [address] [phone] * (ABNORMAL) PROTHROMBIN TIME WHOLE BLD POC (11/30/2022 11:01 AM EDT) Protime 21.3(H) 11.1 - 13.5 sec [facility] 11/30/2022 11:0 1 AM EDT 11/30/2022 11:04 AM EDT [facility] External Provider LAB BLO OD ORDERABLES Final Result Performing Organization Address [facility] Phone Number [facility] [address] [place] [address] [phone] * (ABNORMAL) ~PT, ~INR - ANTI [facility]AG CLINIC (11/30/2022 11:01 AM EDT) Prothrombin Time INR 1.8(H) 0.9 - 1.1 [facility] Comment:METER #: [id number] TERNATIONAL NORMALIZED RATIO (INR) REFERENCE RANGES Reference [...] 1 AM EDT 11/30/2022 11:04 AM EDT [facility] External Provider LAB BLO OD ORDERABLES Final Result Performing Organization Address [facility] de Phone Number [facility] [address] [place] [address] [phone] * (ABNORMAL) PROTHROMBIN TIME WHOLE BLD POC (11/09/2022 10:29 AM EDT) Protime 28.8(H) 11.1 - 13.5 sec [facility] 11/09/2022 10:2 9 AM EDT 11/09/2022 10:30 AM EDT [facility] External Provider LAB BLO OD ORDERABLES Final Result Performing Organization Address [facility] Co de Phone Number [facility] [address] [place] [phone] * (ABNORMAL) ~PT, ~INR - ANTI COAG CLINIC (11/09/2022 10:29 AM EDT) Prothrombin Time INR 2.4(H) 0.9 - 1.1 [facility] Comment:METER #: [id number] TERNATIONAL NORMALIZED RATIO (INR) REFERENCE RANGES Reference [...] 9 AM EDT 11/09/2022 10:30 AM EDT [facility] External Provider LAB BLO OD ORDERABLES Final Result Performing Organization Address [facility] Co de Phone Number [facility] [address] [place] [phone] * (ABNORMAL) Basic Metabolic Panel (10/05/2022 10:02 AM EST) Sodium 146(H) 135 - 145 mmol/L [facility] Potassium 3.4 3.3 - 5.1 mmol/L [facility] Chloride 105 96 - 108 mmol/L [facility] Carbon Dioxide 29 22 - 29 mmol/L [facility] Anion Gap 15 12 - 20 [facility] Urea Nitrogen (BUN) 20(H) 9 - 16 mg/dL [facility] Creatinine, Serum 0.96 0.5 - 1.4 mg/dL [facility] Estimated Glomerular Filt Rate 55 [facility] Comment:NOTE: For -Am erican individuals, multiply the result by 1.210.Chronic Kidney Disease: Estimated GFR < 60 mL/min/[id number] Kidney Disease: Estimated GFR < 15 mL/min/1.73m2 Glucose 28(LL) 60 - 115 mg/dL [facility] Comment:Critical value for t est(GLUR): Results called to and readback by: TONI Guerra LPN Person calling: PATRICIA Date:10/05/22 Time: 1112 Calcium 9.3 8.4 - 10.2 mg/dL [facility] 10/05/2022 10:0 2 AM EST 10/05/2022 10:31 AM EST us [facility] External Provider LAB BLO OD ORDERABLES Final Result [facility] [address] [place] [phone] * (ABNORMAL) Prothrombin Time-INR (10/05/2022 10:02 AM EST) Prothrombin Time 72.7(H) 10.0 - 13.1 SEC [facility] INTERNATIONAL NORM RATIO 5.9(HH) 0.9 - 1.1 [facility] Comment:RESULTS OF INR VO D [...] AM EST 10/05/2022 10:31 AM EST us [facility] External Provider LAB BLO OD ORDERABLES Final Result [facility] [address] [place] [phone] * (ABNORMAL) CBC auto differential (10/05/2022 10:02 AM EST) White Blood Count 10.8 4.8 - 10.8 X10*3/uL [facility] Red Blood Count 4.02(L) 4.20 - 5.50 X10*6/uL [facility] Hemoglobin 12.3 12.0 - 16.0 g/dl [facility] Hematocrit 39.4 37.0 - 47.0 % [facility] Mean Corpuscular Volume 98.0 80.0 - 98.0 fL [facility] Mean Corpuscular Hemoglobin 30.6 27.0 - 33.0 pg [facility] Mean Corpuscular HGB Conc 31.2 31.0 - 35.0 g/dl [facility] Red Cell Distribution Width 13.4 11.0 - 16.0 % [facility] Platelet Count 217 160 - 400 X10*3/uL [facility] Mean Platelet Volume 10.9 9.4 - 12.3 fL [facility] Neutrophils Percent Auto 58.6 45 - 73 % [facility] Imm Gran Pct Auto 0.4 0.0 - 0.4 % [facility] Lymphocytes Percent Auto 31.5 20 - 40 % [facility] Monocytes Percent Auto 5.8 2 - 11 % [facility] Eosinophils Percent Auto 3.1 0 - 4 % [facility] Basophils Percent Auto 0.6 0 - 2 % [facility] NRBC Pct Auto 0.0 0.0 - 0.2 /100WBC [facility] Neutrophils Absolute Auto 6.3 2.0 - 8.3 x10*3/uL [facility] Imm Gran Abs Auto 0.04(H) 0.00 - 0.03 X10*3/uL [facility] Lymphocytes Absolute Auto 3.4 1.2 - 4.9 X10*3/uL [facility] Monocytes Absolute Auto 0.6 0.1 - 1.2 X10*3/uL [facility] Eosinophils Absolute Auto 0.3 0.0 - 0.4 X10*3/uL [facility] Basophils Absolute Auto 0.1 0.0 - 0.2 X10*3/uL [facility] NRBC Abs Auto 0.000 0.0 - 0.012 X10*3/uL [facility] 10/05/2022 10:0 2 AM EST 10/05/2022 10:31 AM EST us [facility] External Provider LAB BLO OD ORDERABLES Final Result Performing Organization Address City/State/[facility] Co de Phone Number [facility] [address] [place] [phone] * (ABNORMAL) Prothrombin Time-INR (10/03/2022 2:57 PM EST) Prothrombin Time 92.9(H) 10.0 - 13.1 SEC [facility] INTERNATIONAL NORM RATIO 7.4(HH) 0.9 - 1.1 [facility] Comment:RESULTS OF INR VO D [...] 2:57 PM EST 10/03/2022 3:20 PM EST [facility] External Provider LAB BLO OD ORDERABLES Final Result [facility] [address] [place] [phone] * (ABNORMAL) CBC auto differential (09/20/2022 11:35 AM EST) White Blood Count 9.1 4.8 - 10.8 X10*3/uL [facility] Red Blood Count 4.06(L) 4.20 - 5.50 X10*6/uL [facility] Hemoglobin 12.6 12.0 - 16.0 g/dl [facility] Hematocrit 39.2 37.0 - 47.0 % [facility] Mean Corpuscular Volume 96.6 80.0 - 98.0 fL [facility] Mean Corpuscular Hemoglobin 31.0 27.0 - 33.0 pg [facility] Mean Corpuscular HGB Conc 32.1 31.0 - 35.0 g/dl [facility] Red Cell Distribution Width 13.7 11.0 - 16.0 % [facility] Platelet Count 127(L) 160 - 400 X10*3/uL [facility] Mean Platelet Volume 11.2 9.4 - 12.3 fL [facility] Neutrophils Percent Auto 85.6(H) 45 - 73 % [facility] Imm Gran Pct Auto 0.2 0.0 - 0.4 % [facility] Lymphocytes Percent Auto 9.6(L) 20 - 40 % [facility] Monocytes Percent Auto 4.4 2 - 11 % [facility] Eosinophils Percent Auto 0.0 0 - 4 % [facility] Basophils Percent Auto 0.2 0 - 2 % [facility] NRBC Pct Auto 0.0 0.0 - 0.2 /100WBC [facility] Neutrophils Absolute Auto 7.7 2.0 - 8.3 x10*3/uL [facility] Imm Gran Abs Auto 0.02 0.00 - 0.03 X10*3/uL [facility] Lymphocytes Absolute Auto 0.9(L) 1.2 - 4.9 X10*3/uL [facility] Monocytes Absolute Auto 0.4 0.1 - 1.2 X10*3/uL [facility] Eosinophils Absolute Auto 0.0 0.0 - 0.4 X10*3/uL [facility] Basophils Absolute Auto 0.0 0.0 - 0.2 X10*3/uL [facility] NRBC Abs Auto 0.000 0.0 - 0.012 X10*3/uL [facility] 09/20/2022 11:3 5 AM EST 09/20/2022 11:39 AM EST [facility] External Provider LAB BLO OD ORDERABLES Final Result [facility] [address] [place] [phone] * SARS-CoV-2 RNA, Influenza A/B, and RSV RNA, Ql NAAT (09/20/2022 11:34 AM EST) Influenza A PCR NEGATIVE Negative [facility] Influenza B PCR NEGATIVE Negative [facility] Resp Syncy Virus RNA Qual PCR NEGATIVE Negative [facility] SARS COV2 PCR NEGATIVE Negative [facility] SARS/Flu/RSV Note See Note [facility] Comment:All test results mus t [...] use by authorized laboratories.Testing performed on the [employer] GeneXpert utilizingreal-time RT-PCR.All SARS CoV2 and positive influenza A/B results arereported to [facility]. 09/20/2022 11:3 4 AM EST 09/20/2022 11:51 AM EST [facility] Exter nal Provider LAB MICROBIOLOGY - GENERAL ORDERABLES Final Result Performing Organization Address [facility]/ZIP Co de Phone Number [facility] [address] [place] [address] [phone] * TSH W/Reflex to FT4 (09/20/2022 11:34 AM EST) TSH reflex Free T4 0.75 0.32 - 4.0 uIU/mL [facility] 09/20/2022 11:3 4 AM EST 09/20/2022 11:39 AM EST [facility] External Provider LAB BLO OD ORDERABLES Final Result Performing Organization Address [facility] de Phone Number [facility] [address] [place] [address] [phone] * (ABNORMAL) B Type Natriuretic Peptide (BNP) (09/20/2022 11:34 AM EST) B Type Natriuretic Peptide 421(H) <100 pg/mL [facility] Comment:For those patients w ho are being treated with Natrecor(nesiritide, recombinant BNP), BNP testing should beperformed at least two hours post treatment in order toensure that only endogenous levels of BNP are detected. 09/20/2022 11:3 4 AM EST 09/20/2022 11:39 AM EST [facility] External Provider LAB BLO OD ORDERABLES Final Result Performing Organization Address [facility] Co de Phone Number [facility] [address] [place] [address] [phone] * Lipase (09/20/2022 11:34 AM EST) Pathologist [facility] Lipase 55 8 - 78 U/L [facility] 09/20/2022 11:3 4 AM EST 09/20/2022 11:39 AM EST [facility] External Provider LAB BLO OD ORDERABLES Final Result Performing Organization Address [facility] de Phone Number [facility] [address] [place] [address] [phone] * Magnesium (09/20/2022 11:34 AM EST) Pathologist [facility] Magnesium 1.6 1.6 - 2.6 mg/dL [facility] 09/20/2022 11:3 4 AM EST 09/20/2022 11:39 AM EST [facility] External Provider LAB BLO OD ORDERABLES Final Result Performing Organization Address [facility] de Phone Number [facility] [address] [place] [address] [phone] * (ABNORMAL) Comprehensive Metabolic Panel (09/20/2022 11:34 AM EST) Pathologist [facility] Sodium 137 135 - 145 mmol/L [facility] Potassium 3.8 3.3 - 5.1 mmol/L [facility] Chloride 99 96 - 108 mmol/L [facility] Carbon Dioxide 30(H) 22 - 29 mmol/L [facility] Anion Gap 12 12 - 20 [facility] Urea Nitrogen (BUN) 22(H) 9 - 16 mg/dL [facility] Creatinine, Serum 1.08 0.5 - 1.4 mg/dL [facility] Creatinine Clr Calc Pharmacy 40.4 [facility] Comment:Provided height and weight: 157.48 cm,99.4 kg.eGFR (calculated from the MDRD study equation) and eCrCl(calculated from the Cockcroft-Gault equation) are based ondifferent parameters and may not yield comparable results.If eCrCl result is absurd, please check patient'sheight/weight. Estimated Glomerular Filt Rate 48 [facility] Comment:NOTE: For -Am erican individuals, multiply the result by 1.210.Chronic Kidney Disease: Estimated GFR < 60 mL/min/[id number] Kidney Disease: Estimated GFR < 15 mL/min/1.73m2 Glucose 253(H) 60 - 115 mg/dL [facility] Calcium 9.1 8.4 - 10.2 mg/dL [facility] Bilirubin, Total 0.8 0.0 - 1.0 mg/dL [facility] Aspartate Amino Transferase 24 5 - 31 U/L [facility] Alanine Aminotransferase 21 0 - 31 U/L [facility] Total Protein 7.1 6.5 - 8.0 g/dL [facility] Albumin Level 3.7 3.5 - 5.0 g/dL [facility] Alkaline Phosphatase 105 39 - 117 U/L [facility] 09/20/2022 11:3 4 AM EST 09/20/2022 11:39 AM EST [facility] External Provider LAB BLO OD ORDERABLES Final Result Performing Organization Address [facility]/ZIP Co de Phone Number [facility] [address] [place] [phone] * Lactic Acid (09/20/2022 11:34 AM EST) Lactic Acid 1.1 0.5 - 2.0 mmol/L [facility] 09/20/2022 11:3 4 AM EST 09/20/2022 11:39 AM EST [facility] External Provider LAB BLO OD ORDERABLES Final Result Performing Organization Address [facility]/ZIP Co de Phone Number [facility] [address] [place] [phone] * (ABNORMAL) Prothrombin Time-INR (09/20/2022 11:34 AM EST) Prothrombin Time 18.3(H) 10.0 - 13.1 SEC [facility] INTERNATIONAL NORM RATIO 1.6(H) 0.9 - 1.1 [facility] Comment:INTERNATIONAL NORMAL IZED RATIO (INR) [...] 4 AM EST 09/20/2022 11:39 AM EST [facility] External Provider LAB BLO OD ORDERABLES Final Result Performing Organization Address City/[facility]/ZIP Co de Phone Number [facility] [address] [place] [address] [phone] * (ABNORMAL) PROTHROMBIN TIME WHOLE BLD POC (09/12/2022 10:21 AM EST) Protime 24.5(H) 11.1 - 13.5 sec [facility] 09/12/2022 10:2 1 AM EST 09/12/2022 10:22 AM EST [facility] External Provider LAB BLO OD ORDERABLES Final Result [facility] [address] [place] [phone] * (ABNORMAL) ~PT, ~INR - ANTI COAG CLINIC (09/12/2022 10:21 AM EST) Prothrombin Time INR 2.0(H) 0.9 - 1.1 [facility] Comment:METER #: [id number] TERNATIONAL NORMALIZED RATIO (INR) REFERENCE RANGES Reference [...] 1 AM EST 09/12/2022 10:22 AM EST [facility] External Provider LAB BLO OD ORDERABLES Final Result Performing Organization Address [facility] Co de Phone Number [facility] [address] [place] [address] [phone] * (ABNORMAL) PROTHROMBIN TIME WHOLE BLD POC (08/29/2022 10:11 AM EST) Protime 20.9(H) 11.1 - 13.5 sec [facility] 08/29/2022 10:1 1 AM EST 08/29/2022 10:15 AM EST [facility] External Provider LAB BLO OD ORDERABLES Final Result Performing Organization Address [facility] Co de Phone Number [facility] [address] [place] [address] [phone] * (ABNORMAL) ~PT, ~INR - ANTI COAG CLINIC (08/29/2022 10:11 AM EST) Prothrombin Time INR 1.7(H) 0.9 - 1.1 [facility] Comment:METER #: [id number] TERNATIONAL NORMALIZED RATIO (INR) REFERENCE RANGES Reference [...] 1 AM EST 08/29/2022 10:15 AM EST [facility] External Provider LAB BLO OD ORDERABLES Final Result Performing Organization Address [facility] Co de Phone Number [facility] [address] [place] [address] [phone] * (ABNORMAL) PROTHROMBIN TIME WHOLE BLD POC (08/18/2022 1:12 PM EST) Protime 22.1(H) 11.1 - 13.5 sec [facility] 08/18/2022 1:12 PM EST 08/18/2022 1:14 PM EST Result [facility] External Provider LAB BLO OD ORDERABLES Final Result Performing Organization Address [facility] de Phone Number [facility] [address] [place] [address] [phone] * (ABNORMAL) ~PT, ~INR - [facility]TI [facility] (08/18/2022 1:12 PM EST) Prothrombin Time INR 1.8(H) 0.9 - 1.1 [facility] Comment:METER #: [id number] TERNATIONAL NORMALIZED RATIO (INR) REFERENCE RANGES Reference [...] 1:12 PM EST 08/18/2022 1:14 PM EST [facility] External Provider LAB BLO OD ORDERABLES Final Result [facility] [address] [place] [phone] documented in this encounter Visit Diagnoses Not on filedocumented in this encounter Care Teams Apprentice Funeral Director Relationship Specialty Start Date End Date Valeri Lerner DO [address] [place] [address] PCP - General Family Medicine 07/13/12 Batsheva Gomez PharmD [address], [place] [address] Pharmacist Internal Medicine 03/07/24 12/19/24 [facility] 12/08/23 documented as of this encounter
--- OUTSIDE RECORDS SUMMARY | 2025-07-11 18:06 | XMS_ITS ---
Author Name Yelena Barillas NP Address [address] [place] [address] Phone [phone] [facility] Care Team Providers Care Preventive Maintenance Engineer Name Role Phone Eran Yelena Unavailable [phone] CATALINA BAGLEY Unavailable [phone] Samantha Baker Unavailable [phone] [facility] Unavailable [phone] Reason for Referral Not Available Allergies, adverse [...] 2024-03-29 No Data Available Comfort EZ Pen [place] 32 gauge x 5/32 USE DIRECTED WITH [...] Date Synopsis Atherosclerosis of coronary artery of [place] heart Active 2022-08-30 N/A cont lasix stati [...] feeling wellReport consistent blood pressures readings >140/90/06/24: HOSE HANDLER reports that in the last couple of days the patient's toes have been pink and sensitive to touch, denies uncontrolled pain to touch. She has an appointment with the decorator [facility] building on monday for further evaluation.01/28/25: Patient denies BLE edema or dyspnea, denies any acute concerns. COPD (chronic obstructive pulmonary disease) Active 2022-08-15 N/A advjhoana hayes casonefu w pulmonaryon Room Air -Stable-continue to f/u with PCP/specialists-continue rx'd medications-report changes in chronic condition Incontinence; Mixed stress and urge urinary incontinence Active 2024-11-22 N/A Incontinence sup plies ordered on 11/22-continue f/u with urology [facility] Unsteady gait Active 2024-12-10 N/A HOSE HANDLER reports that the patient has unsteady gait [...] N/A -Patient has gurwinder ly VNA and HOSE HANDLER services. She lives alone in a third floor apartment with close family support from daughter. Daughter requesting increase in HOSE HANDLER hoursPCA- Sully -Advised to reach out to [facility] cc Virgil currently approximate 30hours per [...] NoDo you have a Durable Power of Aluminum Pourer for Healthcare, or Healthcare Proxy Or Guardianship? 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 [...] (do not use for phone, instead use 59944-97) [facility]20[place] Paroxysmal atrial fibrillationChronic obstructive pulmonary disease, unspecifiedAthscl heart disease of [place] coronary artery w/o ang pctrsType 2 diabetes [...] (do not use for phone, instead use 18466-92) [facility] New patient,40-59min ; chronic exacerbation, 2 stable chronic or 1 acute illness add add modifier 95 for video (do not use for phone, instead use 94462-36) [facility] [place] New patient,40-59min ; chronic exacerbation, 2 stable chronic or 1 acute illness add add modifier 95 for video (do not use for phone, instead use 30273-16) [facility] [place] 08[place]/20[place] New patient,40-59min ; chronic exacerbation, 2 stable chronic or 1 acute illness add add modifier 95 for video (do not use for phone, instead use 61512-31) [facility] [place]/20[place] New patient,40-59min ; chronic exacerbation, 2 stable chronic or 1 acute illness add add modifier 95 for video (do not use for phone, instead use 29379-33) [facility] [place] 08/[place]/20[place] New patient,40-59min ; chronic exacerbation, 2 stable chronic or 1 acute illness add add modifier 95 for video (do not use for phone, instead use 67070-65) [facility] ([place]) 08/25/2022 New patient,40-59min ; chronic exacerbation, 2 stable chronic or 1 acute illness add add modifier 95 for video (do not use for phone, instead use 54262-68) [facility] [place]20[place] Estab. patient 20-29min; 1 stable chronic or 2 minor; add add modifier 95 for video, modifier 93 for phone [facility] [place] 10/03/2022 Pneumonia, unspecified organismSepsis, unspecified organism Estab. patient 20-29min; 1 stable chronic or 2 minor; add add modifier 95 for video, modifier 93 for phone [facility] [place] 10/03/2022 Estab. patient 20-29min; 1 stable chronic or 2 minor; add add modifier 95 for video, modifier 93 for phone [facility] [place] 10/03/2022 Estab. patient 20-29min; 1 stable chronic or 2 minor; add add modifier 95 for video, modifier 93 for phone [facility] [place] 10/03/2022 Estab. patient 20-29min; 1 stable chronic or 2 minor; add add modifier 95 for video, modifier 93 for phone [facility] [place] 10/03/2022 Estab. patient 20-29min; 1 stable chronic or 2 minor; add add modifier 95 for video, modifier 93 for phone [facility] [place] 10/03/2022 Estab. patient 30-39min; chronic exacerbation, 2 stable chronic or 1 acute illness add add modifier 95 for video, (do not use for phone, instead use 84268-29) [facility] [place] 05[place]28[place]2024 Paroxysmal atrial fibrillati onOther thrombophiliaHypertensive heart disease with heart failureMorbid (severe) obesity due to excess caloriesSecondary hyperaldosteronismChronic obstructive pulmonary disease, unspecifiedHeart failure, unspecifiedMajor depressive disorder, single episode, in partial remissionType 2 diabetes mellitus with other specified complicationHypothyroidism, unspecifiedHyperlipidemia, unspecifiedAthscl heart disease of [place] coronary artery w/o ang pctrsAnemia in other chronic diseases classified elsewhereGeneralized anxiety disorderBody mass index (BMI) 40.0-44.9, adultPrsnl hx of TIA (TIA), and cereb infrc w/o resid deficitsOther problems related to medical facilities and other health care Estab. patient 30-39min; chronic exacerbation, 2 stable chronic or 1 acute illness add add modifier 95 for video, (do not use for phone, instead use 77377-72) [facility] ([place] 05/28/20[place] Estab. patient 30-39min; chronic exacerbation, 2 stable chronic or 1 acute illness add add modifier 95 for video, (do not use for phone, instead use 49651-15) [facility] ([place] 05/28/20[place] Estab. patient 30-39min; chronic exacerbation, 2 stable chronic or 1 acute illness add add modifier 95 for video, (do not use for phone, instead use 24730-95) [facility] [place] 05[place]28/20[place] Estab. patient 30-39min; chronic exacerbation, 2 stable chronic or 1 acute illness add add modifier 95 for video, (do not use for phone, instead use 22819-06) [facility] 05[place]28/20[place] Estab. patient 30-39min; chronic exacerbation, 2 stable chronic or 1 acute illness add add modifier 95 for video, (do not use for phone, instead use 01109-63) [facility] 05[place]28/20[place] Estab. patient 30-39min; chronic exacerbation, 2 stable chronic or 1 acute illness add add modifier 95 for video, (do not use for phone, instead use 23672-62) [facility] [place] 05[place]28/20[place] Estab. patient 30-39min; chronic exacerbation, 2 stable chronic or 1 acute illness add add modifier 95 for video, (do not use for phone, instead use 64079-70) [facility] 05[place]28/20[place] Estab. patient 30-39min; chronic exacerbation, 2 stable chronic or 1 acute illness add add modifier 95 for video, (do not use for phone, instead use 86682-07) [facility] 05[place]28/20[place] Estab. patient 30-39min; chronic exacerbation, 2 stable chronic or 1 acute illness add add modifier 95 for video, (do not use for phone, instead use 75074-84) [facility] [place] 05/28/20[place] Estab. patient 30-39min; chronic exacerbation, 2 stable chronic or 1 acute illness add add modifier 95 for video, (do not use for phone, instead use 11151-24) [facility] 05[place] Estab. patient 10-29min; 1 minor problem; add add modifier 95 for video, modifier 93 for phone [facility] [place] 09/10/2024 Heart failure, unspecifiedSe condary hyperaldosteronismOther problems related to medical facilities and other health care Estab. patient 10-29min; 1 minor problem; add add modifier 95 for video, modifier 93 for phone [facility] [place] 10/10/2024 Chronic obstructive pulmonar y disease, unspecifiedHypertensive heart disease with heart failureHeart failure, unspecified Estab. patient 10-29min; 1 minor problem; add add modifier 95 for video, modifier 93 for phone [facility] [place] 11/07/2024 Acute respiratory failure wi th hypoxiaChronic obstructive pulmonary disease, unspecifiedPneumonia, unspecified organismUnspecified urinary incontinenceOther problems related to medical facilities and other health care Estab. patient 10-29min; 1 minor problem; add add modifier 95 for video, modifier 93 for phone [facility] [place] 11/07/20[place] Estab. patient 10-29min; 1 minor problem; add add modifier 95 for video, modifier 93 for phone [facility] [place] 11/07/20[place] Estab. patient 10-29min; 1 minor problem; add add modifier 95 for video, modifier 93 for phone [facility] [place] 11/07/2024 Estab. patient 10-29min; 1 minor problem; add add modifier 95 for video, modifier 93 for phone [facility] [place] 12/10/2024 Acute respiratory failure wi th hypoxiaPneumonia, unspecified organismUnsteadiness on feetOther problems related to medical facilities and other health care Estab. patient 10-29min; 1 minor problem; add add modifier 95 for video, modifier 93 for phone [facility] [place] 01/28/2025 Heart failure, unspecifiedSe condary hyperaldosteronismChronic obstructive pulmonary disease, unspecified RN, CN or CP time with patient by phone; use with 1111F, BP, A1c or other CPTII codes [facility] [place] 02/18/2025 Encounter for other specifie d aftercare RN, CN or CP time with patient by phone; use with 1111F, BP, A1c or other CPTII codes [facility] [place] 02/18/2025 Estab. patient 10-29min; 1 minor problem; add add modifier 95 for video, modifier 93 for phone [facility] [place] 02/27/2025 Urinary tract infection, sit e not specifiedOther problems related to medical facilities and other health care Estab. patient 10-29min; 1 minor problem; add add modifier 95 for video, modifier 93 for phone [facility] [place] 02/27/2025 Estab. patient 10-29min; 1 minor problem; add add modifier 95 for video, modifier 93 for phone [facility] [place] 02/27/2025 Estab. patient 10-29min; 1 minor problem; add add modifier 95 for video, modifier 93 for phone [facility] [place] 02/27/2025 Estab. patient 10-29min; 1 minor problem; add add modifier 95 for video, modifier 93 for phone [facility] [place] 04/02/2025 Polyosteoarthritis, unspecifiedParoxysmal atrial fibrillationOther thrombophiliaChronic obstructive pulmonary disease, unspecifiedAthscl heart disease of [place] coronary artery w/o ang pctrsType 2 diabetes [...] tive Time Current Smoking Status Former smoker 2025-06-30 2 Sex Female Gender identity Woman History of Procedures Procedures Service Procedure code Service date Servicing provider Phone# New patient,40-59min; chronic exacerbation, 2 stable chronic or 1 acute illness add add modifier 95 for video (do not use for phone, instead use 48825-30) [id number] 2022-08-25 No Data Available No Data Availa [...] 95 for video, modifier 93 for phone 35095 2022-10-03 No Data Available No Data Availa [...] (do not use for phone, instead use 34617-82) 55710 2024-05-28 No Data Available No Data Availa [...] 95 for video, modifier 93 for phone [id number] 2024-09-10 No Data Available No Data Availa ble Estab. patient 10-29min; 1 minor problem; add add modifier 95 for video, modifier 93 for phone [id number] 2024-10-10 No Data Available No Data Availa [...] 95 for video, modifier 93 for phone 35181 2024-12-10 No Data Available No Data Availa ble Estab. patient 10-29min; 1 minor problem; add add modifier 95 for video, modifier 93 for phone 13341 2025-01-28 No Data Available No Data Availa ble RN, CN or CP time with patient by phone; use with 1111F, BP, A1c or other CPTII codes 07588 2025-02-18 No Data Available No Data Avai [...] 95 for video, modifier 93 for phone 58954 2025-04-02 No Data Available No Data Availa [...] obstructive pulmonary disease)Atherosclerosis of coronary artery of [place] heartType 2 diabetes mellitus with hyperlipidemiaMajor depressive disorder in partial remissionHypothyroidismMorbid obesity due to excess caloriesHistory of CVA (cerebrovascular accident)Anemia in chronic illness 2022-10-03 07:05:20 Patient Education to avoid future hospitalization: Call [facility] if symptoms of illness develop.Sepsis due to pneumonia 2024-05-28 07:45:46 paroxysmal atrial fi brillation and Hypercoagulability due to atrial fibrillationCOPD (chronic obstructive pulmonary disease)Atherosclerosis of coronary artery of [place] heartType 2 diabetes mellitus with hyperlipidemiaMajor depressive [...] obstructive pulmonary disease)Atherosclerosis of coronary artery of [place] heartType 2 diabetes mellitus with hyperlipidemia; Type [...] lantus, metformin, trulicty a1c 7.7, [facility] and mtr lipids fu w endocrinecont on sertralinept denies symptoms [facility]cont [facility] clonazepam for anxiety/insomnialevothyroxinefu w endomtr [...] may arise 20/02.HEART FAILURE CONTINGENCY PLANLast updated: 05/29/2024[facility] to call for the following symptoms: BP [...] feeling wellReport consistent blood pressures readings >140/902/06/24: HOSE HANDLER reports that in the last couple of days the patient's toes have been pink and sensitive to touch, denies uncontrolled pain to touch. She has an appointment with the decorator [facility] and building on monday for further evaluation. 2024-10-10 06:15:41 Estab. patient 10-29 min; 1 minor problem; add add modifier 95 for video, modifier 93 for phoneContinue to see PCP. [facility] or disease education needs that may arise 20/02.advair, fluticasonefu w pulmonary3: Patient denies dyspnea or any other concerns.Encourage low sodium diet. Encouraged daily blood pressure checks and tracking. Instructed patient to notify CB or PCP if blood pressure >140/90 or <90/50.HEART FAILURE CONTINGENCY PLANLast updated: 05/29/2024[facility] to call for the following symptoms: BP [...] the patient is home with family and HOSE HANDLER/VNA care. The patient is currently has a soft diet and increase weakness post hospitalization. Medication reconciled with hospital records, unable to confirm with VNAHEART FAILURE CONTINGENCY PLANLast updated: 05/29/2024[facility] to call for the following symptoms: BP <100/60 / BP >180/100 / Edema/ Exertional dyspnea/ Weight gain or lossPlanned intervention: Increase furosemide (Lasix) to 60 mg for 3 days/ Wrap legs with Mohan wrap/ Put on compression stockings/ Eat lower sodium foods/ Take medication every single dayCOPD CONTINGENCY PLANLast updated: 11/22/2024[facility] to call for the following symptoms: Exertional [...] or disease education needs that may arise 20/02.HOSE HANDLER reports that the patient has unsteady gait with walking, requires assistance during ambulation. Hx of falls.11/07/24: Hospitalization 10/21-10/21 for acute hypoxic respiratory failure secondary to pneumonia. Patient presented to cough and shortness of breath. The patient was discharged to a STR. In addition, the patient had ER visit 11/05 for aspiration pneumonia. At this time, the patient is home with family and HOSE HANDLER/VNA care. The patient is currently has a soft diet and increase weakness post hospitalization. Medication reconciled with hospital records, unable to confirm with VNA12/10/24: Cg reports that the patient does not have any acute symptoms, she is 'stable'. She is aware that the patient will continue to steadily decline.HEART FAILURE CONTINGENCY PLANLast updated: 05/29/2024[facility] to call for the following symptoms: BP <100/60 / BP >180/100 / Edema/ Exertional dyspnea/ Weight gain or lossPlanned intervention: Increase furosemide (Lasix) to 60 mg for 3 days/ Wrap legs with Mohan wrap/ Put on compression stockings/ Eat lower sodium foods/ Take medication every single dayCOPD CONTINGENCY PLANLast updated: 11/22/2024[facility] to call for the following symptoms: Exertional dyspnea/ Increased cough / WheezingPlanned intervention: Levofloxacin 500mg daily x 5 daysFALL CONTINGENCY PLANMember to call for the following symptoms: Fall / Pre-syncope/ Refusing to use cane / WeaknessPlanned intervention: Order x-ray at [facility] or local hospital Assess for change in [...] feeling wellReport consistent blood pressures readings >140/902/06/24: HOSE HANDLER reports that in the last couple of days the patient's toes have been pink and sensitive to touch, denies uncontrolled pain to touch. She has an appointment with the decorator [facility] and building on monday for further evaluation.01/28/25: Patient denies BLE edema or dyspnea, denies any acute concerns.advair, fluticasonefu w pulmonary01/28/25: Patient denies dyspnea or any other concerns.HEART FAILURE CONTINGENCY PLANLast updated: 05/29/2024[facility] to call for the following symptoms: BP <100/60 / BP >180/100 / Edema/ Exertional dyspnea/ Weight gain or lossPlanned intervention: Increase furosemide (Lasix) to 60 mg for 3 days/ Wrap legs with Mohan wrap/ Put on compression stockings/ Eat lower sodium foods/ Take medication every single dayCOPD CONTINGENCY PLANLast updated: 11/22/2024[facility] to call for the following symptoms: Exertional dyspnea/ Increased cough / WheezingPlanned intervention: Levofloxacin 500mg daily x 5 daysFALL CONTINGENCY PLANMember to call for the following symptoms: Fall / Pre-syncope/ Refusing to use cane / WeaknessPlanned intervention: Order x-ray at [facility] or local hospital Assess for change in [...] for phoneContinue to see PCP. Follow-up with [facility] as needed for any acute or disease education needs that may arise.02/15-02/17 hospitalization due to a fall. Dx with a urinary tract infection and treated with an antibiotic. Cg denies any current symptoms or concerns.UTI CONTINGENCY PLANLast updated: 02/27/2025[facility] to call for the following symptoms: Dysuria/ [...] cane / WeaknessPlanned intervention: Order x-ray at [facility] or local hospital Assess for change in [...] with PCP/specialists-continue rx'd medications-report changes in chronic pseszlvsrxceqsqgsm-Ahhrvn-byqcndke to f/u with PCP/specialists-continue rx'd medications-report changes [...] feeling wellReport consistent blood pressures readings >140/902/06/24: HOSE HANDLER reports that in the last couple of days the patient's toes have been pink and sensitive to touch, denies uncontrolled pain to touch. She has an appointment with the decorator [facility] and building on monday for further evaluation.01/28/25: Patient denies [...] supplies ordered on 11/22-[facility] has unsteady gait with walking, requires assistance during ambulation. Hx of falls.-Patient has daily VNA and HOSE HANDLER services. She lives alone in a third floor apartment with close family support from daughter. Daughter requesting increase in HOSE HANDLER hoursPCAJigna Virk -Advised to reach out to [facility] cc [place] currently approximate 30hours per [...] NoDo you have a Durable Power of Aluminum Pourer for Healthcare, or Healthcare Proxy Or Guardianship? [...] discussion: (Who was present, : member and YUO-Jzezdn-dvktncow to f/u with PCP/specialists-continue rx'd medications-report changes [...] NoDo you have a Durable Power of Aluminum Pourer for Healthcare, or Healthcare Proxy Or Guardianship? [...] discussion: (Who was present, : member and HOSE HANDLER 2025-04-02 Functional Assessmen tCognition Status: Oriented to [...]
--- OUTSIDE RECORDS SUMMARY | 2025-07-11 18:06 | XMS_ITS | Encounter Summary ---
Author Organization [facility] Address [address] [place] [address] Care Team Providers Care Implementation Technician Name Role Phone Valeri Lerner Primary Care Provider [phone]- [phone] Encounter Details Date Type Department Care Team (Late st Contact Info) Description 11/04/2024 Lab Requisition [facility] - Main Lab [address] [place] [address] Amrita Polanco MD [address] [place] [id number] Unspecified atrial fibrillation (CMS/HCC V24, CMS/HCC V28) [...] sec LAB COAGULATION METHOD 11/04/2024 11:56 AM [facility] INR 1.4 LAB COAGULATION METHOD 11/04/2024 11:56 AM [facility] Blood Venous blood specimen / Unknown Venipuncture / Unknown 11/04/2024 8:39 AM EDT 11/04/2024 11:00 AM EDT us Amrita Polanco MD LAB BLOOD ORDERABLES Final Resu lt [facility] ([facility]) [facility] [address] [place] [address], documented in this encounter Visit Diagnoses Diagnosis Unspecified atrial fibrillation (CMS/HCC V24, CMS/HCC V28) documented in this encounter Care Teams Implementation Technician Relationship Specialty Start Date End Date Valeri Lerner DO [address] [place] [address] PCP - General 11/15/14 documented as of this encounter
--- OUTSIDE RECORDS SUMMARY | 2025-07-11 18:06 | XMS_ITS | Encounter Summary ---
Author Organization [facility] Address [address] [place] [address] Care Team Providers Care Inspectors And Regulatory Officers Name Role Phone Valeri Lerner Primary Care Provider [phone]- [phone] Encounter Details Date Type Department Care Team (Late st Contact Info) Description 06/10/2025 Lab Requisition [facility] - Main Lab [address] [place] [address] Macario Green MD [address] [place], [place] [id number] Unspecified atrial fibrillation (CMS/HCC V24, CMS/HCC V28) [...] LAB COAGULATION METHOD 06/10/2025 8:21 AM EST [facility] INR 2.5 LAB COAGULATION METHOD 06/10/2025 8:21 AM EST [facility] Blood Venous blood specimen / Unknown Venipuncture / Unknown 06/10/2025 6:10 AM EST 06/10/2025 8:01 AM EST us Macario Green MD LAB BLOOD ORDERABLES Final R esult [facility] ([facility] [address] [place] [address], documented in this encounter Visit Diagnoses Diagnosis Unspecified atrial fibrillation (CMS/HCC V24, CMS/HCC V28) documented in this encounter Care Teams Inspectors And Regulatory Officers Relationship Specialty Start Date End Date Valeri Lerner DO [address] [place] [address] PCP - General 11/15/14 documented as of this encounter
--- OUTSIDE RECORDS SUMMARY | 2025-07-11 18:06 | XMS_ITS | Encounter Summary ---
Author Organization [facility] Address [address] [place] [address] Care Team Providers Care Roll Or Tape Edge Machine Operator Name Role Phone Valeri Lerner Primary Care Provider +1- [phone] Encounter Details Date Type Department Care Team (Latest Contact Info) Description 06/02/[address] 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
--- OUTSIDE RECORDS SUMMARY | 2025-07-11 18:06 | XMS_ITS | Encounter Summary ---
Author Organization [facility] Address [address] [place] [address] Care Team Providers Care Pbx Inspector Name Role Phone Valeri Lerner Primary Care Provider +1- [phone] Encounter Details Date Type Department Care Team (Late st Contact Info) Description 10/30/2024 Lab Requisition [facility] - Main Lab [address] [place] [address] Kymberly Horne MD [address] [id number] Type 2 diabetes mellitus without complications (CMS/HCC [...] MD LAB BLOOD ORDERABLES Fin al Result [facility] [address] [place] [address], documented in this encounter Visit Diagnoses Diagnosis Type 2 diabetes mellitus without complications (CMS/HCC V24, CMS/HCC V28) documented in this encounter Care Teams Pbx Inspector Relationship Specialty Start Date End Date Valeri Lerner DO [address] [place] [address] PCP - General 11/15/14 documented as of this encounter
--- OUTSIDE RECORDS SUMMARY | 2025-07-11 18:06 | XMS_ITS | Encounter Summary ---
Author Organization [facility] Address [address] [place] [address] Care Team Providers Care Splitter Machine Name Role Phone Valeri Lerner Primary Care Provider +1- [phone] Encounter Details Date Type Department Care Team (Late st Contact Info) Description 06/09/2025 Lab Requisition [facility] - Main Lab [address] [place] [address] Macario Green MD [address], [place] [phone] Unspecified atrial fibrillation (CMS/HCC V24, CMS/HCC V28) [...] LAB COAGULATION METHOD 06/09/2025 10:54 AM EST [facility] LAB INR 3.1 LAB COAGULATION METHOD 06/09/2025 10:54 AM [facility] LAB Blood Venous blood specimen / Unknown Venipuncture / Unknown 06/09/2025 8:05 AM EST 06/09/2025 10:05 AM EST us Macario Green MD LAB BLOOD ORDERABLES Final R esult [facility] [address] [place] [address], documented in this encounter Visit Diagnoses Diagnosis Unspecified atrial fibrillation (CMS/HCC V24, CMS/HCC V28) documented in this encounter Care Teams Splitter Machine Relationship Specialty Start Date End Date Valeri Lerner DO [address] [place] [address] PCP - General 11/15/14 documented as of this encounter
--- OUTSIDE RECORDS SUMMARY | 2025-07-11 18:06 | XMS_ITS | Encounter Summary ---
Author Organization [employer] Address [address] [place] [address] [address] [place] [address] Care Team Providers Care Emery Wheel Worker Name Role Phone Valeri Lerner DO Primary Care Provider [phone] Batsheva Gomez PharmD Unavailable Reason for Visit * Reason Comments Med Refill Encounter Details Date Type Department Care Team (Late st Contact Info) Description 08/28/2022 Refill [facility] [address] [place], [place] [phone] Valeri Lerner DO [address] [place], [place] [phone] Chronic constipation (Primary Dx) Social History Tobacco [...] constipation documented in this encounter Care Teams Emery Wheel Worker Relationship Specialty Start Date End Date Valeri Lerner DO [address] [place] [address] PCP - General Family Medicine 07/13/12 Batsheva Gomez PharmD [address] [place] [address] Pharmacist Internal Medicine 03/07/24 12/19/24 Otto Clave 12/08/23 documented as of this encounter
--- OUTSIDE RECORDS SUMMARY | 2025-07-11 18:06 | XMS_ITS | Encounter Summary ---
Author Organization [employer] Address [address] [facility] [address] [place] [address] Care Team Providers Care Operations Analyst Name Role Phone Valeri Lerner DO Primary Care Provider + [phone] Encounter Details Date Type Department Care Team ([facility] st Contact Info) Description 12/24/2024 Telephone [facility] [address] [place], [place] [phone] Valeri Lerner DO [address] [place], [place] [phone] Social History Tobacco Use Types Packs/Day Years [...] Result Component 7.6( 1:53 PM EDT) No PuiaJulitoBatsheva, PharmD documented as of this encounter Visit Diagnoses Not on filedocumented in this encounter Additional Health Concerns Assessment Noted Time PHQ-9 Depression Total Score: 0 07/15/20 24 11:32 AM EST documented as of this encounter Care Teams Operations Analyst Relationship Specialty Start Date End Date Valeri Lerner DO [address] [place] [address] PCP - General Family Medicine 07/13/12 [employer] 12/08/23 documented as of this encounter
--- OUTSIDE RECORDS SUMMARY | 2025-07-11 18:06 | XMS_ITS | Patient Health Record ---
Author Organization [facility] Address [address] [facility] [place] [address] Care Team Providers Care Chiropractic Practice Manager Name Role Phone Valeri Lerner Primary Care Provider Keenan Lowery Unavailable [phone] Allergies Allergen (clinical drug ingredient) Drug/Non Drug [...] End Date Status Fluticasone Propionate Active Ipratropium Irwin Active Insulin Lispro Activ e Arestin Not-Taking [...] Problem Acquired hammer toe of right foot (1796859416414 105) Other hammer toe(s) (acquired), right foot (M20.41) Active confirmed Problem Type 2 diabetes mellitus with peripheral angiopathy (015775089) Type 2 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) Active confirmed Q7(A), Q8(2B), Q9(1B,2C) Problem Acquired hammer toe of left foot (9427412878926 103) Other hammer toe(s) (acquired), left foot (M20.42) Active confirmed Vital Signs Blood pressure diastolic 65 mm Hg 04/18/2025 Height 5 ft 5 in in 04/18/2025 Blood pressure systolic 140 mm Hg 04/18/2025 Weight 230 lbs 04/18/2025 BMI 38.27 kg/m2 04/18/2025 Procedures Procedure Date Ordered Date Performed Result Body Sit e 58504-SEHVGLG NAIL, 6 OR MORE 08/16/2024 N/A 61696-APGB SKIN LESIONS, OVER 4 08/16/2024 N/A 69908-SYWPXGK NAIL, 6 OR MORE 01/10/2025 N/A 54523-LJVK SKIN LESIONS, OVER 4 01/10/2025 N/A 18682-XRLMADD NAIL, 6 OR MORE 04/18/2025 N/A 63479-KOOF SKIN LESIONS, OVER 4 04/18/2025 N/A Encounters Encounter Location Date Provider Diagnosis [address] [address] 08/16/2024 Keenan Dyer Type 2 diabetes mellitus with diabetic peripheral angiopathy without gangrene E11.51 ; Tinea unguium B35.1 ; Pain in right toe(s) M79.674 ; Pain in left toe(s) M79.675 ; Other hammer toe(s) (acquired), left foot M20.42 ; Other hammer toe(s) (acquired), right foot M20.41 and Tinea pedis of both feet B35.[address] [address] 01/10/2025 Keenan Dyer Type 2 diabetes mellitus with diabetic peripheral angiopathy without gangrene E11.51 ; Other hammer toe(s) (acquired), right foot M20.41 ; Tinea unguium B35.1 ; Pain in right toe(s) M79.674 ; Pain in left toe(s) M79.675 ; Other hammer toe(s) (acquired), left foot M20.42 and Tinea pedis of both feet B35.[address] [address] 04/18/2025 Keenan Dyer Type 2 diabetes mellitus with diabetic peripheral angiopathy without gangrene E11.51 ; Tinea unguium B35.1 ; Pain in right toe(s) M79.674 ; Pain in left toe(s) M79.675 and Tinea pedis of both feet B35.3 [facility] [address] [address] 01/10/2025 Keenan Dyer [facility] [address] [address] 01/10/2025 Keenan Dyer Assessments Encounter Date Diagnosis [...] Treatment Pending Test Test Name Order Date 18896-KBBYZMY NAIL, 6 OR MORE 10/27/2016 17691-IDYGJKM NAIL, 6 OR MORE 05/09/2017 56302-PUIVHKS NAIL, 6 OR MORE 08/21/2017 12507-SDBOABP NAIL, 6 OR MORE 01/26/2017 62144-QSDBPQG NAIL, 6 OR MORE 01/29/2018 15252-AKQALFG NAIL, 6 OR MORE 07/09/2018 96055-BXJFWSC NAIL, 6 OR MORE 11/22/2018 22537-FCJYHVD NAIL, 6 OR MORE 08/16/2024 92800-HVMTBRK NAIL, 6 OR MORE 01/10/2025 51920-TRREVYE NAIL, 6 OR MORE 04/18/2025 71691-LWGLNCG NAIL, 1-5 12/21/2015 74157-HGHVHYV NAIL, 1-5 05/30/2016 11189-SBVWCEC NAIL, 1-5 02/18/2015 96331-PULRQIR NAIL, 1-5 05/27/2015 32322-VZDMZBP NAIL, 1-5 09/23/2015 49815-Rkhqgpan Plate 02/18/2015 17151-Frmkbger Plate 05/30/2016 17106-Ufwoylao Plate 12/21/2015 75835-Dpnycbnu Plate 09/23/2015 91247-Nhxlfpmz Plate 10/27/2016 68503-Oiivpsqg Plate 01/07/2019 32000-PXAY SKIN LESIONS, OVER 4 07/09/20 18 56813-LSUD SKIN LESIONS, OVER 4 05/09/20 17 22608-ZTOX SKIN LESIONS, OVER 4 04/18/20 25 14831-BXIL SKIN LESIONS, OVER 4 11/23/19 19 85542-OLMN SKIN LESIONS, OVER 4 01/11/20 25 68250-PLOA SKIN LESIONS, OVER 4 08/16/19 25 90180-ZFCG SKIN LESIONS, OVER 4 10/28/19 17 86984-OZPL SKIN LESIONS, OVER 4 01/27/20 17 59496-CQZL SKIN LESIONS, OVER 4 08/21/19 18 26099-ETNI SKIN LESIONS, OVER 4 01/30/20 18 90827-DYPJ SKIN LESIONS, 2 TO 4 02/19/20 15 28715-RWUJ SKIN LESIONS, 2 TO 4 05/27/20 15 60588-QYIH SKIN LESIONS, 2 TO 4 09/23/19 16 92500-CVFY SKIN LESIONS, 2 TO 4 12/21/19 16 68038-FGEQ SKIN LESIONS, 2 TO 4 05/30/20 16 81657-Bliu. Subungual Hematoma 9 J6920-QOZFHMOQ DYSTROPHIC NAILS ANY # H2486-TXJXUQUQ DYSTROPHIC NAILS ANY # M0798-WFHTLEIP DYSTROPHIC NAILS ANY # D7212-BDCJYXDM DYSTROPHIC NAILS ANY # Next Appt Details Provider Name:Keenan Islas Manisha , 08/15/2025 12:45:00 PM, [address] [place], [address], Insurance Providers Payer Name Payer Address Payer Phone Subscriber Number Group Number Insured Name Patient Relationship to Insured Coverage Start Date Coverage End Date [facility] Medicare-[id number] [address] [place] [address] [id number] Nikky Morgan Self - patient is the insured Medical (General) History Medical History History ICD Code Anxiety Arthritis asthma Back,Hip,and Knee pain Broken bones Diabetic Stroke Thyroid disorder blood clots Gout Heart disease Surgical History Surgery Date(Month/Year) cataract surgery left eye 11/09/2018 Hospitalization History Reason Date(Month/Year) [facility] for a cough 2018
--- OUTSIDE RECORDS SUMMARY | 2025-07-11 18:06 | XMS_ITS | Encounter Summary ---
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 Social History [...] WITH INR Routine 06/07/2025 5:28 AM EST [facility] (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 documented in this encounter Results * (ABNORMAL) Prothrombin time with INR (06/07/2025 5:28 AM EST) Protime 30.8(H) 10.6 - 13.9 sec LAB COAGULATION METHOD 06/07/2025 7:57 AM EST [facility] LAB INR 2.5 LAB COAGULATION METHOD 06/07/2025 7:57 AM EST [facility] LAB Blood Venous blood specimen / Unknown Venipuncture / Unknown 06/07/2025 5:28 AM EST 06/07/2025 7:22 AM EST us Macario Green MD LAB BLOOD ORDERABLES Final R esult [facility] [address] [place] [address], [place] [phone] documented in this encounter Visit Diagnoses Diagnosis [facility] (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 Long-term (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 documented in this encounter Care Teams Retail Worker Relationship Specialty Start Date End Date Valeri Lerner DO [address] [place] [address] PCP - General 11/15/14 documented as of this encounter
--- OUTSIDE RECORDS SUMMARY | 2025-07-11 18:06 | XMS_ITS | Clinical Summary ---
Author Organization [facility] Address [address] [place] [address] Phone Care Team Providers Care Canary Raiser Name Role Phone Unavailable Primary Care Provider [...] It is not the complete legal health record.[facility]
--- OUTSIDE RECORDS SUMMARY | 2025-07-11 18:06 | XMS_ITS | Encounter Summary ---
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, CMS/HCC V28); Hyperlipidemia, unspecified; Chronic atrial fibrillation, unspecified (CMS/HCC V24, CMS/HCC V28); Essential (primary) hypertension; senior care (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 Social History Tobacco [...] (CMS/HCC V24, CMS/HCC V28) Essential (primary) hypertension 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 COMPLETE BLOOD COUNT Routine 05/30/2025 6:09 AM EDT 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, CMS/HCC V28) Hyperlipidemia, unspecified Chronic atrial fibrillation, unspecified ([facility] V24, [facility] V28) Essential (primary) hypertension senior care (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 BASIC METABOLIC PANEL Routine 05/30/2025 6:09 AM EDT Type 2 diabetes mellitus with diabetic polyneuropathy ([facility] V24, [facility] V28) Hyperlipidemia, unspecified Chronic atrial fibrillation, unspecified ([facility] V24, [facility] V28) Essential (primary) hypertension 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 documented in this encounter Results * (ABNORMAL) Prothrombin time with INR (05/30/2025 6:09 AM EDT) Protime 15.7(H) 10.6 - 13.9 sec LAB COAGULATION METHOD 05/30/2025 11:16 AM EDT [facility] LAB INR 1.3 LAB COAGULATION METHOD 05/30/2025 11:16 AM EDT [facility] LAB Blood Venous blood specimen / Unknown Venipuncture / Unknown 05/30/2025 6:09 AM EDT 05/30/2025 9:50 AM EDT Macario Green MD LAB BLOOD ORDERABLES Final R esult [facility] [address] [place] [address], * (ABNORMAL) Basic metabolic panel (05/30/2025 6:09 AM EDT) Sodium 140 133 - 145 mmol/L LAB CHEMISTRY METHOD 05/30/2025 11:24 AM EDT [facility] Potassium 4.1 3.5 - 5.5 mmol/L LAB CHEMISTRY METHOD 05/30/2025 11:24 AM T [facility] Chloride 102 96 - 110 mmol/L LAB CHEMISTRY METHOD 05/30/2025 11:24 AM EDT [facility] CO2 35(H) 21 - 32 mmol/L LAB CHEMISTRY METHOD 05/30/2025 11:24 AM [facility] Anion Gap 3 3 - 11 LAB CHEMISTRY METHOD 05/30/2025 11:24 AM [facility] LAB Glucose 119(H) 70 - 100 mg/dL LAB CHEMISTRY METHOD 05/30/2025 11:24 AM [facility] BUN 26(H) 5 - 25 mg/dL LAB CHEMISTRY METHOD 05/30/2025 11:24 AM [facility] LAB Creatinine 1.13(H) 0.50 - 1.10 mg/dL LAB CHEMISTRY METHOD 05/30/2025 11:24 AM [facility] LAB eGFR 47(L) >=60 mL/min/1. 73m2 LAB CHEMISTRY METHOD 05/30/2025 11:24 AM [facility] LAB Comment:Calculation based on the Chronic Kidney Disease Epidemiology Collaboration (CKD-EPI) equation refit without adjustment for race. BUN/Creatinine Ratio 23.0 LAB CHEMISTRY METHOD 05/30/2025 11:24 AM [facility] LAB Calcium 9.5 8.5 - 10.5 mg/dL LAB CHEMISTRY METHOD 05/30/2025 11:24 AM [facility] LAB Blood Venous blood specimen / Unknown Venipuncture / Unknown 05/30/2025 6:09 AM EDT 05/30/2025 9:50 AM EDT us Macario Green MD LAB BLOOD ORDERABLES Final R esult [facility] [address] [place] [address], * (ABNORMAL) Complete blood count (05/30/2025 6:09 AM EDT) WBC 7.2 4.8 - 10.8 K/mcL LAB HEMETOLOGY METHOD 05/30/2025 11:09 AM [facility] RBC 3.80 3.80 - 4.80 M/mcL LAB HEMETOLOGY METHOD 05/30/2025 11:09 AM [facility] LAB Hemoglobin 11.7 11.5 - 16.0 g/dL LAB HEMETOLOGY METHOD 05/30/2025 11:09 AM [facility] LAB Hematocrit 37.9 35.0 - 47.0 % LAB HEMETOLOGY METHOD 05/30/2025 11:09 AM [facility] LAB MCV 99.5(H) 79.0 - 98.0 FL LAB HEMETOLOGY METHOD 05/30/2025 11:09 AM [facility] LAB MCH 30.7 27.0 - 32.0 pcg LAB HEMETOLOGY METHOD 05/30/2025 11:09 AM [facility] LAB MCHC 30.9(L) 32.0 - 37.0 g/dL LAB HEMETOLOGY METHOD 05/30/2025 11:09 AM [facility] LAB RDW 14.6 11.0 - 15.0 % LAB HEMETOLOGY METHOD 05/30/2025 11:09 AM [facility] LAB Platelets 166 130 - 400 K/mcL LAB HEMETOLOGY METHOD 05/30/2025 11:09 AM [facility] LAB MPV 11.8(H) 7.0 - 11.0 FL LAB HEMETOLOGY METHOD 05/30/2025 11:09 AM [facility] LAB NRBC 0.0 <1.0 % LAB HEMETOLOGY METHOD 05/30/2025 11:09 AM [facility] LAB NRBC Absolute 0.00 <0.10 K/mcL LAB HEMETOLOGY METHOD 05/30/2025 11:09 AM [facility] LAB Blood Venous blood specimen / Unknown Venipuncture / Unknown 05/30/2025 6:09 AM EDT 05/30/2025 9:50 AM EDT us Macario Green MD LAB BLOOD ORDERABLES Final R esult [facility]) [facility] [address] [place] [address], documented in this encounter Visit Diagnoses Diagnosis Type 2 diabetes mellitus with diabetic polyneuropathy ([facility] V24, [facility] V28) Hyperlipidemia, unspecified Chronic atrial fibrillation, unspecified ([facility] V24, 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
--- OUTSIDE RECORDS SUMMARY | 2025-07-11 18:06 | XMS_ITS | Encounter Summary ---
Author Organization [facility] Address [address] [place] [address] Care Team Providers Care Washing And Screening Plant Supervisor Name Role Phone Valeri Lerner Primary Care Provider +1- [phone] Encounter Details Date Type Department Care Team (Late st Contact Info) Description 06/11/2025 Lab Requisition [facility] - Main Lab [address] [place] [address] Macario Green MD [address], [place] [phone] Unspecified atrial fibrillation (CMS/HCC V24, CMS/HCC V28) [...] LAB COAGULATION METHOD 06/12/2025 10:32 AM EST [facility] LAB INR 1.9 LAB COAGULATION METHOD 06/12/2025 10:32 AM EST [facility] LAB Blood Venous blood specimen / Unknown Venipuncture / Unknown 06/12/2025 7:54 AM EST 06/12/2025 10:16 AM EST us Macario Green MD LAB BLOOD ORDERABLES Final R esult [facility] ([facility]) [facility] [address] [place] [address], documented in this encounter Visit Diagnoses Diagnosis Unspecified atrial fibrillation (CMS/HCC V24, CMS/HCC V28) documented in this encounter Care Teams Washing And Screening Plant Supervisor Relationship Specialty Start Date End Date Valeri Lerner DO [address] [place] [address] PCP - General 11/15/14 documented as of this encounter
--- OUTSIDE RECORDS SUMMARY | 2025-07-11 18:06 | XMS_ITS | Encounter Summary ---
Author Organization [facility] Address [address] [place] [address] Care Team Providers Care Rotary Dump Operator Name Role Phone Valeri Lerner Primary Care Provider +1- [phone] Encounter Details Date Type Department Care Team (Late st Contact Info) Description 06/05/[address] [facility] - Main Lab [address] [place] [address] Macario Green MD [address] [place], [place] [phone] Unspecified atrial fibrillation (CMS/HCC V24, CMS/HCC V28) [...] LAB COAGULATION METHOD 06/05/2025 8:45 AM EST [facility] LAB INR 1.6 LAB COAGULATION METHOD 06/05/2025 8:45 AM EST [facility] LAB Blood Venous blood specimen / Unknown Venipuncture / Unknown 06/05/2025 7:00 AM EST 06/05/2025 8:16 AM EST us Macario Green MD LAB BLOOD ORDERABLES Final R esult [facility] ([facility]) [facility] [address] [place] [address], documented in this encounter Visit Diagnoses Diagnosis Unspecified atrial fibrillation (CMS/HCC V24, CMS/HCC V28) documented in this encounter Care Teams Rotary Dump Operator Relationship Specialty Start Date End Date Valeri Lerner DO [address] [place] [address] PCP - General 11/15/14 documented as of this encounter
--- OUTSIDE RECORDS SUMMARY | 2025-07-11 18:07 | XMS_ITS | Encounter Summary ---
Author Organization [facility] Address [address] [place] [address] Care Team Providers Care Photoengraver Apprentice Name Role Phone Valeri Lerner Primary Care Provider [phone]- [phone] Encounter Details Date Type Department Care Team (Late st Contact Info) Description 07/04/2025 Lab Requisition [facility] - Main Lab 299 [facility] [place] [address] Kymberly Horne MD [address] [id number] Essential (primary) hypertension; Unspecified atrial fibrillation (CMS/HCC V24, CMS/HCC V28); Heart failure, unspecified (CMS/HCC V24, CMS/HCC V28); Chronic embolism and thrombosis of unspecified vein Social History Tobacco Use Types Packs/Day Years [...] Chronic embolism and thrombosis of unspecified vein documented in this encounter Results * (ABNORMAL) Prothrombin time with INR (07/07/2025 4:43 AM EST) Protime 30.7(H) 10.6 - 13.9 sec LAB COAGULATION METHOD 07/07/2025 10:[address] [facility] INR 2.5 LAB COAGULATION METHOD 07/07/2025 10:20 AM [facility] Blood Venous blood specimen / Unknown Venipuncture / Unknown 07/07/2025 4:43 AM EST 07/07/2025 9:17 AM EST us Kymberly Horne MD LAB BLOOD ORDERABLES Fin al Result [facility] [address] [place] [address], * (ABNORMAL) Basic metabolic panel (07/07/2025 4:43 AM EST) Pathologist [facility] Sodium 140 133 - 145 mmol/L 07/07/2025 10:[address] [facility] Potassium 4.4 3.5 - 5.5 mmol/L 07/07/2025 10:[address] [facility] Chloride 99 96 - 110 mmol/L 07/07/2025 10:58 AM [facility] CO2 33(H) 21 - 32 mmol/L 07/07/2025 10:[address] [facility] Anion Gap 8 3 - 11 07/07/2025 10:58 AM [facility] Glucose 98 70 - 100 mg/dL 07/07/2025 10:58 AM [facility] BUN 31(H) 5 - 25 mg/dL 07/07/2025 10:58 AM [facility] Creatinine 1.23(H) 0.50 - 1.10 mg/dL 07/07/2025 10:58 AM [facility] eGFR 42(L) >=60 mL/min/1. 73m2 07/07/2025 10:58 AM [facility] Comment:Calculation based on the Chronic Kidney Disease Epidemiology Collaboration (CKD-EPI) equation refit without adjustment for race. BUN/Creatinine Ratio 25.2 07/07/2025 10:58 AM [facility] Calcium 9.7 8.5 - 10.5 mg/dL 07/07/2025 10:58 AM [facility] Blood Venous blood specimen / Unknown Venipuncture / Unknown 07/07/2025 4:43 AM EST 07/07/2025 9:17 AM EST us Kymberly Horne MD LAB BLOOD ORDERABLES Fin al Result [facility] [address] [place] [address], * (ABNORMAL) Complete blood count (07/07/2025 4:43 AM EST) WBC 8.2 4.8 - 10.8 K/mcL LAB HEMETOLOGY METHOD 07/07/2025 10:20 AM [facility] RBC 3.90 3.80 - 4.80 M/mcL LAB HEMETOLOGY METHOD 07/07/2025 10:20 AM [facility] Hemoglobin 11.8 11.5 - 16.0 g/dL LAB HEMETOLOGY METHOD 07/07/2025 10:[address] [facility] Hematocrit 37.3 35.0 - 47.0 % LAB HEMETOLOGY METHOD 07/07/2025 10:20 AM [facility] MCV 96.6 79.0 - 98.0 FL LAB HEMETOLOGY METHOD 07/07/2025 10:20 AM [facility] MCH 30.6 27.0 - 32.0 pcg LAB HEMETOLOGY METHOD 07/07/2025 10:[address] [facility] MCHC 31.6(L) 32.0 - 37.0 g/dL LAB HEMETOLOGY METHOD 07/07/2025 10:20 AM [facility] RDW 14.0 11.0 - 15.0 % LAB HEMETOLOGY METHOD 07/07/2025 10:20 AM [facility] Platelets 184 130 - 400 K/mcL LAB HEMETOLOGY METHOD 07/07/2025 10:[address] [facility] MPV 11.6(H) 7.0 - 11.0 FL LAB HEMETOLOGY METHOD 07/07/2025 10:[address] [facility] NRBC 0.0 <1.0 % LAB HEMETOLOGY METHOD 07/07/2025 10:20 AM [facility] NRBC Absolute 0.00 <0.10 K/mcL LAB HEMETOLOGY METHOD 07/07/2025 10:20 AM [facility] Blood Venous blood specimen / Unknown Venipuncture / Unknown 07/07/2025 4:43 AM EST 07/07/2025 9:17 AM EST us Kymberly Horne MD LAB BLOOD ORDERABLES Fin al Result [facility] [address] [place] [address], documented in this encounter Visit Diagnoses Diagnosis Essential (primary) hypertension Unspecified essential hypertension Unspecified atrial fibrillation ([facility] V24, [facility] V28) Heart failure, unspecified ([facility] V24, [facility] V28) Heart failure, unspecified Chronic embolism and thrombosis of unspecified vein documented in this encounter Care Teams Photoengraver Apprentice Relationship Specialty Start Date End Date Valeri Lerner DO [address] [place] [address] PCP - General 11/15/14 documented as of this encounter
--- OUTSIDE RECORDS SUMMARY | 2025-07-11 18:07 | XMS_ITS | Encounter Summary ---
Author Organization [employer] Address [address] [facility] 7t [place] [address] Care Team Providers Care Cattle Dehorner Name Role Phone Valeri Lerner DO Primary Care Provider [phone] Reason for Visit * Reason Onset Date Comments [facility] Encounter Details Date Type Department Care Team (Late st Contact Info) Description 07/02/2025 Telephone [facility] [address] [place], [place] [phone] Valeri Lerner DO [address] [place], [place] [phone] [facility] care coordination-[facility] Social History Tobacco Use Types Packs/Day Years [...] Telephone Encounter - Michaela Rollins RN - 07/09/2025 9:51 AM EST TC placed to [facility] [place] [phone] to inquire if patient is still admitted to their facility. RN was informed patient remains at their facility with no potential discharge date as of yet.RN will postpone message x1 week to check on status of discharge from [facility]. * Telephone Encounter - Michaela Rollins RN - 07/03/2025 12:24 PM EST TC placed to [facility] [place] [phone] to inquire if patient is present in their facility. RN was informed patient is currently at their facility with no potential discharge date as of yet. RN will postpone message x1 week to check on status of discharge from STR. * Telephone Encounter - Michaela Rollins RN - 07/02/2025 9:30 AM EST Patient has been admitted to [facility] since 06/26/25 and will be discharged today to [facility] for [facility] (no INR completed by [facility] d/t hospitalization). RN will confirm patient was transferred to [facility] tomorrow. documented in this encounter Plan of Treatment [...] Plan Weekly blood pressure task No Colon MorganPuja breen Weekly blood pressure task Care Plan Weekly blood pressure task No Colon Morgan, Puja Patient has chronic kidney disease Care Plan Patient has chronic kidney disease No Colon Morgan, Puja Patient has chronic kidney disease Care Plan Patient has chronic kidney disease No Colon Eddie Puja Weekly blood pressure task Care Plan [...] blood pressure task No [facility] House PharmD Patient has chronic kidney disease Care Plan Patient has chronic kidney disease No [facility] PharmD Patient has chronic kidney disease Care Plan Patient has chronic kidney disease No [facility] PharmD Weekly blood pressure task Care Plan Weekly blood pressure task No Valeri Renner LPN Weekly blood pressure task Care Plan Weekly blood pressure task No Valeri Renner LPN Patient has chronic kidney disease Care Plan Patient has chronic kidney disease No Valeri Renner LPN Patient has chronic kidney disease Care Plan [...] 07/02/2025 Patient has chronic kidney disease 07/02/2025 Assessment Noted Time PHQ-9 Depression Total Score: 0 07/15/20 11:32 AM EST documented as of this encounter Care Teams Cattle Dehorner Relationship Specialty Start Date End Date Valeri Lerner DO [address] [place] [address] PCP - General Family Medicine 07/13/[address] [employer] 12/08/23 documented as of this encounter
--- OUTSIDE RECORDS SUMMARY | 2025-07-11 18:07 | XMS_ITS | Encounter Summary ---
Author Organization [facility] Address [address] [place] [address] Care Team Providers Care Copper Plate Printer Name Role Phone Valeri Lerner Primary Care Provider [phone]- [phone] Encounter Details Date Type Department Care Team (Late st Contact Info) Description 07/03/2025 Lab Requisition [facility] - Main Lab [address] [place] [address] Kymberly Horne MD [address] [phone] Chronic embolism and thrombosis of unspecified vein [...] Diagnosis Comments PROTHROMBIN TIME WITH INR Routine 07/04/2025 7:17 AM EST Chronic embolism and thrombosis of unspecified vein documented in this encounter Results * (ABNORMAL) Prothrombin time with INR (07/04/2025 7:17 AM EST) Protime 35.9(H) 10.6 - 13.9 sec LAB COAGULATION METHOD 07/04/2025 9:50 AM EST [facility] INR 2.9 LAB COAGULATION METHOD 07/04/2025 9:50 AM EST [facility] Blood Venous blood specimen / Unknown Venipuncture / Unknown 07/04/2025 7:17 AM EST 07/04/2025 8:59 AM EST us Kymberly Horne MD LAB BLOOD ORDERABLES Fin al Result [facility] [address] [place] [address], documented in this encounter Visit Diagnoses Diagnosis Chronic embolism and thrombosis of unspecified vein documented in this encounter Care Teams Copper Plate Printer Relationship Specialty Start Date End Date Valeri Lerner DO [address] [place] [address] PCP - General 11/15/14 documented as of this encounter
--- OUTSIDE RECORDS SUMMARY | 2025-07-11 18:07 | XMS_ITS | Encounter Summary ---
Author Organization [employer] Address [address] [place] [address] 7[address] [place] [address] Care Team Providers Care Ehr Trainer Name Role Phone Valeri Lerner DO Primary Care Provider [phone] Batsheva Gomez PharmD Unavailable [phone] Encounter Details Date Type Department Care Team (Latest Contact Info) Description 11/11/2020 Abstract [facility] CONVERSIONS Dental, Provider, DDS Social History [...] on filedocumented in this encounter Care Teams Ehr Trainer Relationship Specialty Start Date End Date Valeri Lerner DO [address] [place], [place] [phone] PCP - General Family Medicine 07/13/12 Batsheva Gomez, PharmD [address] [place], [place] [phone] Pharmacist Internal Medicine 03/07/24 12/19/24 Lola Pirindola 12/08/23 documented as of this encounter
--- OUTSIDE RECORDS SUMMARY | 2025-07-11 18:07 | XMS_ITS | Encounter Summary ---
Author Organization [facility] Address [address] [place] [address] Care Team Providers Care Sampling Theory Teacher Name Role Phone Valeri Lerner Primary Care Provider [phone] Encounter Details Date Type Department Care Team (Late st Contact Info) Description 07/02/2025 Lab Requisition [facility] - Main Lab 299 [facility] [place] [address] Kymberly Horne MD [address] [address] Essential (primary) hypertension; Unspecified atrial fibrillation (CMS/HCC V24, CMS/HCC V28); Type 2 diabetes mellitus with unspecified complications (CMS/HCC V24, CMS/HCC V28) Social History [...] Diagnosis Comments PROTHROMBIN TIME WITH INR Routine 07/02/2025 8:03 AM EST Essential (primary) hypertension Unspecified atrial fibrillation (CMS/HCC V24, CMS/HCC V28) Type 2 diabetes mellitus with unspecified complications (CMS/HCC V24, CMS/HCC V28) COMPLETE BLOOD COUNT Routine 07/02/2025 8:03 AM EST Essential (primary) hypertension Unspecified atrial fibrillation (CMS/HCC V24, CMS/HCC V28) Type 2 diabetes mellitus with unspecified complications (CMS/HCC V24, CMS/HCC V28) HEMOGLOBIN A1C Routine 07/02/2025 8:03 AM EST Essential (primary) hypertension Unspecified atrial fibrillation (CMS/HCC V24, CMS/HCC V28) Type 2 diabetes mellitus with unspecified complications (CMS/HCC V24, CMS/HCC V28) BASIC METABOLIC PANEL Routine 07/02/2025 8:03 AM EST Essential (primary) hypertension Unspecified atrial fibrillation (CMS/HCC V24, CMS/HCC V28) Type 2 diabetes mellitus with unspecified complications (CMS/HCC V24, CMS/HCC V28) documented in this encounter Results * (ABNORMAL) Hemoglobin A1c (07/02/2025 8:03 AM EST) Pathologist [facility] Hemoglobin A1C 6.7(H) <6.5 % LAB CHEMISTRY METHOD 07/02/2025 2:06 PM EST [facility] Mean Bld Glu Estim. 146 mg/dL LAB CHEMISTRY METHOD 07/02/2025 2:06 PM EST [facility] Blood Venous blood specimen / Unknown Venipuncture / Unknown 07/02/2025 8:03 AM EST 07/02/2025 10:06 AM EST us Kymberly Horne MD LAB BLOOD ORDERABLES Fin al Result [facility] [address] [place] [address], * (ABNORMAL) Basic metabolic panel (07/02/2025 8:03 AM EST) Pathologist [facility] Sodium 142 133 - 145 mmol/L 07/02/2025 10:45 AM EST [facility] Potassium 3.9 3.5 - 5.5 mmol/L 07/02/2025 10:45 AM EST [facility] Chloride 99 96 - 110 mmol/L 07/02/2025 10:45 AM EST [facility] CO2 34(H) 21 - 32 mmol/L 07/02/2025 10:[address] [facility] Anion Gap 9 3 - 11 07/02/2025 10:[address] [facility] Glucose 150(H) 70 - 100 mg/dL 07/02/2025 10:[address] [facility] BUN 33(H) 5 - 25 mg/dL 07/02/2025 10:[address] [facility] Creatinine 1.22(H) 0.50 - 1.10 mg/dL 07/02/2025 10:[address] [facility] eGFR 43(L) >=60 mL/min/1. 73m2 07/02/2025 10:[address] [facility] Comment:Calculation based on the Chronic Kidney Disease Epidemiology Collaboration (CKD-EPI) equation refit without adjustment for race. BUN/Creatinine Ratio 27.0 07/02/2025 10:[address] [facility] Calcium 9.8 8.5 - 10.5 mg/dL 07/02/2025 10:[address] [facility] Blood Venous blood specimen / Unknown Venipuncture / Unknown 07/02/2025 8:03 AM EST 07/02/2025 10:06 AM EST us Kymberly Horne MD LAB BLOOD ORDERABLES Fin al Result [facility] [address] [place] [address], * (ABNORMAL) Prothrombin time with INR (07/02/2025 8:03 AM EST) Protime 34.2(H) 10.6 - 13.9 sec LAB COAGULATION METHOD 07/02/2025 10:[address] [facility] INR 2.8 LAB COAGULATION METHOD 07/02/2025 10:[address] [facility] Blood Venous blood specimen / Unknown Venipuncture / Unknown 07/02/2025 8:03 AM EST 07/02/2025 10:06 AM EST us Kymberly Horne MD LAB BLOOD ORDERABLES Fin al Result [facility] [address] [place] [address], * (ABNORMAL) Complete blood count (07/02/2025 8:03 AM EST) WBC 9.9 4.8 - 10.8 K/mcL LAB HEMETOLOGY METHOD 07/02/2025 10:[address] [facility] RBC 4.10 3.80 - 4.80 M/mcL LAB HEMETOLOGY METHOD 07/02/2025 10:[address] [facility] Hemoglobin 12.3 11.5 - 16.0 g/dL LAB HEMETOLOGY METHOD 07/02/2025 10:[address] [facility] Hematocrit 39.1 35.0 - 47.0 % LAB HEMETOLOGY METHOD 07/02/2025 10:[address] [facility] MCV 96.5 79.0 - 98.0 FL LAB HEMETOLOGY METHOD 07/02/2025 10:[address] [facility] MCH 30.4 27.0 - 32.0 pcg LAB HEMETOLOGY METHOD 07/02/2025 10:[address] [facility] MCHC 31.5(L) 32.0 - 37.0 g/dL LAB HEMETOLOGY METHOD 07/02/2025 10:[address] [facility] RDW 14.4 11.0 - 15.0 % LAB HEMETOLOGY METHOD 07/02/2025 10:[address] [facility] Platelets 195 130 - 400 K/mcL LAB HEMETOLOGY METHOD 07/02/2025 10:20 AM EST [facility] MPV 11.3(H) 7.0 - 11.0 FL LAB HEMETOLOGY METHOD 07/02/2025 10:20 AM EST [facility] NRBC 0.0 <1.0 % LAB HEMETOLOGY METHOD 07/02/2025 10:20 AM EST [facility] NRBC Absolute 0.00 <0.10 K/mcL LAB HEMETOLOGY METHOD 07/02/2025 10:20 AM EST [facility] Blood Venous blood specimen / Unknown Venipuncture / Unknown 07/02/2025 8:03 AM EST 07/02/2025 10:06 AM EST us Kymberly Horne MD LAB BLOOD ORDERABLES Fin al Result [facility] [address] [place] [address], documented in this encounter Visit Diagnoses Diagnosis Essential (primary) hypertension Unspecified essential hypertension Unspecified atrial fibrillation (CMS/HCC V24, CMS/HCC V28) Type 2 diabetes mellitus with unspecified complications (CMS/HCC V24, CMS/HCC V28) documented in this encounter Care Teams Sampling Theory Teacher Relationship Specialty Start Date End Date Valeri Lerner DO [address] [place] [address] PCP - General 11/15/14 documented as of this encounter
== END 2025-07-11 12:40 | disposition home or self-care (01) ==
LOC: HO.US 12:39
PROVIDERS: PCP Family Medicine; Visit Provider Urology
DX: R32 Unspecified urinary incontinence (principal)
CPT/HCPCS: 76775

== ENCOUNTER → 2025-07-11 12:42 | Outpatient (BNV) | payer OTHER, SELFPAY | PROVIDERS: PCP Family Medicine; Visit Provider Radiology Diagnostic Radiology | DX: N28.1 Cyst of kidney, acquired (principal) | CPT/HCPCS: 76775 ==

== ENCOUNTER → 2025-07-18 12:55 | Outpatient (REF) | payer OTHER, SELFPAY ==
--- OUTSIDE RECORDS SUMMARY | 2024-11-22 08:30 | XMS_ITS ---
Author Organization [facility] Address [address] [place] [address] Care Team Providers Care Washer Meat Name Role Phone Valeri Lerner Primary Care Provider UnavailKeenan Dalton Unavailable [phone] Archuleta Encounters Encounter Location Date Provider Diagnosis [address] [address] 11/22/2024 Keenan Dyer Plan Of Treatment Next Appt Details Provider Name:Keenan Dyer , 08/15/2025 12:45:00 PM, [address] [place] [address], [phone], Progress Notes * Anna WOODCoraB:[birth year] (89 yo F)Acc No.[id number]:11/22/2024 Progress Note Patient: Nikky SINGH Provider: Gabbi Dyer DPM :1935 A ge:89 Y S ex:Female Date:11/22/2024 Address:[address] [place] [phone] Pcp:Valeri Lerner Subjective: * Chief Complaints: * [...] 0 11/22/2024 Generated for Tray López on: 1 09/18/2024 02:42 PM EST
--- OUTSIDE RECORDS SUMMARY | 2024-12-13 07:45 | XMS_ITS ---
Author Organization [facility] Address [address] [place] [address] Care Team Providers Care Entry Level Staff Accountant Name Role Phone Valeri Lerner Primary Care Provider UnavailKeenan Dalton Unavailable [phone] Archuleta Encounters Encounter Location Date Provider Diagnosis [address] [address] 12/13/2024 Keenan Dyer Plan Of Treatment Next Appt Details Provider Name:Keenan Dyer , 08/15/2025 12:45:00 PM, [address] [place] [address], [phone], Progress Notes * Anna WOODCoraB:[birth year] (89 yo F)Acc No.[id number]:12/13/2024 Progress Note Patient: Nikky SINGH Provider: Gabbi Dyer DPM :1935 A ge:89 Y S ex:Female Date:12/13/2024 Address:[address] [place] [phone] Pcp:Valeri Lerner Subjective: * Chief Complaints: * [...] 12/13/2024 Generated for Tray López on: 1 09/18/2024 02:42 PM EST
--- OUTSIDE RECORDS SUMMARY | 2025-07-18 14:41 | XMS_ITS | Clinical Summary ---
Author Organization [employer] Address [address] [place] [address] [address] [place] [address] Care Team Providers Care Advanced Practice Rn Name Role Phone Valeri Lerner DO [...] each 11 023 Active Continuous Blood Gluc Edge Trimming Machine Operator (Diffon Jason 2 [place]) device Scan sensor every 8 hours 1 [...] day. 15 tablet 06/13/20 4:09 PM EST 024 Active metFORMIN XR (Glucophage-XR) 500 MG 24 hr tabletIndications :Type 2 diabetes mellitus with hyperglycemia, with long-term current use of insulin ([facility]) TAKE 1 TABLET BY MOUTH TWICE DAILY IN THE MORNING AND IN THE EVENING WITH FOOD 60 tablet 07/17/20 1:19 PM EST 025 Active atorvastatin (Lipitor) 20 MG tabletIndications :Other hyperlipidemia TAKE 1 TABLET BY MOUTH AT BEDTIME 90 tablet 3 025 Active docusate sodium (Colace) 100 MG capsuleIndication s:Chronic constipation TAKE 1 CAPSULE BY MOUTH TWICE DAILY 180 capsule 3 025 Active ciclopirox (Loprox) 0.77 % cream APPLY TOPICALLY TO SKIN OF FEET AND TOES TWICE DAILY DIRECTED Active white petrolatum (Vaseline) gelIndications:Ac cowlitz cystitis with hematuria Apply topically if needed for dry skin or irritation. 500 g 025 Active Continuous Glucose Sensor (FreeStyle Jason 2 Plus Sensor) misc 1 each every 8 (eight) hours. Apply 1 sensor every 15 days as directed for CGM. Continue to scan Q8H, at minimum, to capture 24 hr BG data. 2 each 07/18/20 2:29 PM EST 025 Active insulin glargine (Lantus SoloStar) 100 UNIT/ML penIndications:Ty pe 2 diabetes mellitus with hyperglycemia, with long-term current use of insulin (HCC) Inject 26 Units under the skin in the morning. 15 mL 06/13/20 25 4:09 PM EST 025 Active Semaglutide,0.25 or 0.5MG/DOS, (Ozempic, 0.25 or 0.5 MG/DOSE,) 2 MG/3ML solution pen-injectorIndic ations:Type 2 diabetes mellitus with hyperglycemia, with long-term current use of insulin (HCC) Inject 0.5 mg under the skin 1 (one) time per week. 3 mL 06/13/20 25 4:09 PM EST 025 2025 Active Pentips Generic Pen Bridgeton 32G X 4 MM misc USE DIRECTED [...] hours if needed for wheezing. 75 mL 07/18/20 25 2:29 PM EST 025 2025 Active Multiple Vitamins-Iron (Tab-A-Judith/Iron) tablet [...] BREAK, CRUSH, DISSOLVE OR CHEW 30 tablet 07/17/20 25 1:19 PM EST Active magnesium oxide (Mag-Ox) 400 [...] EVERY MORNING WITH FOOD Active warfarin (Coumadin) 4 MG tabletIndications :Paroxysmal [...] AND EVENING 90 tablet 1 025 Active warfarin (Coumadin) 5 MG tablet Take as directed per After Visit Summary. 7 tablet 07/17/20 25 1:19 PM EST 025 2025 Active omeprazole (PriLOSEC) [address] capsule [...] PM EST 025 2024 Discontinued(T herapy completed) metoprolol succinate XL (Toprol-XL) 25 MG 24 hr tablet 11/14/2 025 2024 Discontinued warfarin (Coumadin) 2 MG tablet TAKE 3 TABLETS (6MG) BY MOUTH EVERY EVENING FOR 3 DAYS 025 2024 Discontinued Active Problems Problem Noted [...] from more structured support, daughter working time checker, she and brother are primary care givers, nephew was assisting with medications and home care but no longer working as community cultural development officer, 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 Information Operator list provided for daughter, Referral to [...] 015 Overview (01/26/2024): Seen by Dr Bradshaw, [facility] cards. Assessment & Plan (01/26/2024 [...] previous one of 9 on admission to [facility]. No change in meds. 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 Tylenol [...] Encounters Date Type Department Care Team Description 07/15/2025 Patient Outreach [facility] [address] [place], [place] [phone] Valeri Lerner DO Transition Of Care (Tcm) (HDF scheduled. ) 07/02/2025 Refill [facility] [address] [place] [address] Valeri Lerner DO Paroxysmal atrial fibrillation ([facility]/HCC) ([facility]) 06/30/2025 Refill [facility] [address] [place] [address] Valeri Lerner DO 06/26/2025 Orders Only [facility] External Provider, [facility] 06/23/2025 Anticoagulation - Warfarin Visit [facility] [address] [place] [address] Michaela Rollins, SHIRLEY Paroxysmal atrial fibrillation ([facility]/HCC) ([facility]) 06/22/2025 Refill [facility] [address] [place] [address] Valeri Lerner DO Paroxysmal atrial fibrillation ([facility]/HCC) ([facility]) 06/18/2025 Anticoagulation - Warfarin Visit [facility] [address] [place] [address] Michaela Rollins, RN Paroxysmal atrial fibrillation ([facility]/HCC) ([facility]) 06/13/2025 Telephone [facility] [address] [place] [address] Valeri Lerner DO VNA services 06/13/2025 Patient Outreach [facility] [address] [place] [address] Valeri Lerner DO Transition Of Care (Tcm) (HDF scheduled) 06/13/[address] [facility] [address] [place] [address] Valeri Lerner DO Hospital Follow-up 06/09/2025 Patient Outreach [facility] [address] [place] [address] Valeri Lerner DO Pre-visit Planning (HDF scheduled ) 06/06/2025 11:30 AM EST Office Visit [facility] [address] [place] [address] Ai Baron, OD History of nonproliferative diabetic retinopathy (Primary Dx); Pseudophakia of both eyes; Presbyopia of both eyes 06/06/[address] [address] Valeri Lerner DO INR tracking 06/06/2025 Travel 05/30/[address] [address] Valeri Lerner DO 05/28/2025 Patient Outreach [address] [address] Valeri Lerner DO Transition Of Care (Tcm) (HDF scheduled and SDOH screening completed on 02/17/25) 05/28/2025 Orders Only GENERIC EXTERNAL DATA DEPARTMENT Provider, Generic External Data 05/27/2025 Orders Only GENERIC EXTERNAL DATA DEPARTMENT Provider, Generic External Data 05/23/[address] [address] Valeri Lerner DO FYI 05/21/[address] [address] Valeri Lerner DO FYI 05/13/2025 Anticoagulation - Warfarin Visit [address] [address] Michaela Rollins RN Paroxysmal atrial fibrillation (CMS/HCC) (HCC) 05/13/[address] [address] Valeri Lerner DO 05/06/2025 Anticoagulation - Warfarin Visit [address] [address] Michaela Rollins RN Paroxysmal atrial fibrillation ([facility]/HCC) (HCC) 05/01/2025 Refill [facility] [address] [place] [address] Frances Hilario, LIBRARY INFORMATION TECHNICIAN Hypomagnesemia 04/24/2025 Refill [facility] [address] [place] [address] Valeri Lerner, 04/18/2025 Telephone [facility] [address] [place] [address] Valeri Lerner, 04/18/2025 Telephone [facility] [address] [place] [address] Valeri Lerner, telephone call from Last 3 Months Immunizations Immunization Administration [...] Care Team (Late st Contact Info) Description 08/05/2025 10:45 AM EST Office Visit [facility] [address] [place], [place] [phone] Ericka Sarmiento MD [address] [place], [place] [phone] Health Maintenance Due Date Last Done Comments Dental Oral Exam 1935 Dental Prophylaxis 1935 Dental X-Ray: Bitewings 1935 Dental X-Ray: Full Mouth 1935 Alcohol/Substance Use Screening 1947 Diabetes: Urine Protein Screening 08/31/2024 08/31/2023, 01/19/2022, 05/19/2021, Additional history exists Lipid Panel 08/31/2024 08/31/2023 Eye Exam 06/24/2025 06/24/2024, 06/01, 06/24/2024, Additional history exists Depression Screening 07/15/2025 07/15/2024, 07/15/20 Diabetes: Hemoglobin A1C 09/30/2025 025, 03/07/2025, 11/22/2024, Additional history exists Diabetes: Foot Exam 01/10/2026 01/10/2025 COVID-19 Vaccine ( season) 2026 07/14/2025, 04/26/2024, 12/26/2023, Additional history exists SDOH Screening 02/17/2026 02/17/2025 Tobacco Screening 06/20/2026 06/20/2025 DTaP/Tdap/Td Vaccines (3 - Td or Tdap) 12/25/2033 12/26/2023, 12/26/2023, 08/06/2013, Additional history exists Pneumococcal Vaccine: 50+ Years Completed 12/26/2023, 07/02/2015, 11/04/2013 RSV Patients and Patients Aged 60 years or older Completed 03/07/2024 Zoster Vaccines Completed 03/07/2024, 02/2021, 07/02/2015 Hepatitis B Vaccines Completed 06/14/2024, 07/02/2015, 05/21/2015 Influenza Vaccine Completed 07/04/2025, , 04/26/2024, Additional history exists HIB Vaccines Aged Out No longer eligi [...] type 2 diabetes No Michaela Rollins, RN Weekly blood pressure [...] Patient has chronic kidney disease No Michaela Rolilns RN Weekly blood pressure task Care Plan Weekly blood pressure task No Colon Morgan, Puja Weekly blood pressure task Care Plan Weekly blood pressure task No Colon Morgan, Puja Patient has chronic kidney disease Care Plan Patient has chronic kidney disease No Colon Morgan, Puja Patient has chronic kidney disease Care Plan Patient has chronic kidney disease No Colon Morgan Puja Weekly blood pressure task Care Plan [...] Plan Patient has chronic kidney disease No Tod Ai, OD Patient has chronic kidney disease Care Plan Patient has chronic kidney disease No Tod Ai, OD Weekly blood pressure task Care [...] blood pressure task No Miryam House, PharmD Weekly blood pressure task Care Plan Weekly blood pressure task No Chirag Housea, PharmD Patient has chronic kidney disease Care Plan Patient has chronic kidney disease No Chirag Housea, PharmD Patient has chronic kidney disease Care Plan Patient has chronic kidney disease No Chirag Housea, PharmD Weekly blood pressure task Care Plan Weekly blood pressure task No Valeri Renner REHAB TECH Weekly blood pressure task Care Plan Weekly blood pressure task No Tia Rennerfer, REHAB TECH Patient has chronic kidney disease Care Plan Patient has chronic kidney disease No Valeri Renner REHAB TECH Patient has chronic kidney disease Care Plan Patient has chronic kidney disease No Tia Rennerfer, REHAB TECH Weekly blood pressure task Care Plan Weekly [...] Care Plan Weekly blood pressure task No Tabitha Apodaca Weekly blood pressure task Care Plan Weekly blood pressure task No PaulieUma alvesilet Patient has chronic kidney disease Care Plan Patient has chronic kidney disease No Paulie Tabitha Patient has chronic kidney disease Care Plan Patient has chronic kidney disease No Paulie, Tabitha Procedures Procedure Name Priority Date/Time Associated Diagnosis [...] TIME-INR Routine 05/13/2025 PROTHROMBIN TIME-INR Routine 05/06/2025 POCT GLYCATED HEMOGLOBIN, TOTAL Routine 03/07/2025 1:53 PM EDT Type 2 diabetes mellitus with hyperglycemia, with long-term current use of insulin (CMS/HCC) AMB REFERRAL TO PODIATRY Routine 01/10/2025 Type 2 diabetes mellitus with hyperglycemia, with long-term current use of insulin (CMS/HCC) ALBUMIN, RANDOM URINE W/CREATININE Routine 08/31/2023 4:16 PM EST Type 2 diabetes mellitus with hyperglycemia, with long-term current use of insulin (CMS/HCC) LIPID PANEL, STANDARD Routine 08/31/2023 4:11 PM EST Type 2 diabetes mellitus with hyperglycemia, with long-term current use of insulin (CMS/HCC) from Last 3 Months or Most Recently Relevant to Health Maintenance Results * US Renal Complete (07/11/2025 1:15 PM EST) Anatomical Region Laterality Modality Kidney Ultrasound 07/11/2025 1:15 PM EST Narrative 07/11/2025 1:[address] [address] Ultrasound Report Signed Patient: Nikky Guevara MR#: [id number] : 1935 Acct:[id number] Age/Sex: 89 / F ADM Date: 07/11/25 Loc: HO.US Attending Dr: Sarmad Loza MD Ordering Physician: Sarmad Loza MD Date of Service: 07/11/25 Procedure(s): US renal BI Accession Number(s): [id number] cc: Sarmad Loza MD; Valeri Lerner DO [...] by: Miguelito Jay MD 07/11/2025 01:43 PM [facility] Dictated By: Miguelito Lipscomb MD Signed By: <Electronically signed by Miguelito Lobo MD in OV> 07/11/25 1343 DD/ 1315 TD/TT: 07/11/25 1325 Superintendent Renting Managing: Procedure Note Donotuseinterpreter, Image - 07/11/[address] [address] Ultrasound Report Signed Patient: Cassie Guevara#: [id number] : 6Acct:[id number] Age/Sex: 89 / FADM Date: 07/11/25 Loc: HO.US Attending Dr: Sarmad Loza MD Ordering Physician: Sarmad Loza MD Date of Service: 07/11/25 Procedure(s): US renal BI Accession Number(s): [id number] cc: Sarmad Loza MD; Valeri Lerner DO [...] by: Miguelito Jay MD 07/11/2025 01:43 PM [facility] Dictated By: Miguelito Lipscomb MD Signed By: <Electronically signed by Miguelito Lobo MDin OV> 07/11/25 1343 DD/ 1315 TD/TT: 07/11/25 1325 Superintendent Renting Managing: us [facility] External Provider IMG US PROCEDURES Final Result * (ABNORMAL) High Sensitivity Troponin I (06/26/2025 4:50 PM EST) TROPONIN I HIGH SENSITIVITY 25.2(H) <3.5 - 17.0 ng/L [facility] Comment:The Crowe high sens itivity Troponin-I results should beused in conjunction with other diagnostic information suchas ECG, clinical observations and information, and patientsymptoms to aid in the diagnosis of [place]. 06/26/2025 4:50 PM EST 06/26/2025 5:04 PM EST us Generic External Data Provider LAB BLOOD ORDERAB LES Final Result Performing Organization Address City/State/[facility] Co de Phone Number [facility] [address] [place] [address] [phone] * XR Chest 1 View (06/26/2025 4:16 PM EST) Only the most recent of2 resultswithin the time period is included. Anatomical Region Laterality Modality Chest Radiographic Isabella ging 06/26/2025 4:16 PM EST Narrative 06/26/2025 4:17 PM EST [place] [address] XRay Report Signed Patient: Nikky Guevara MR#: [id number] : 1935 Acct:[id number] Age/Sex: 89 / F ADM Date: 06/26/25 Loc: .ED Attending Dr: Ordering Physician: Neha Roman Date of Service: 06/26/25 Procedure(s): XR chest 1V Accession Number(s): [id number] cc: Valeri Lerner DO; Neha Roman Reason [...] Dumont MD in OV> 06/26/25 1617 DD/ 161 TD/TT: 06/26/25 161 Superintendent Renting Managing: Procedure Note Donotuseinterpreter, Image - 06/26/[address] [address] XRay Report Signed Patient: Eddie MorganCassie#: [id number] : 1935cct:[id number] Age/Sex: 89 / FADM Date: 06/26/25 Loc: HO.ED Attending Dr: Ordering Physician: Neha Roman Date of Service: 06/26/25 Procedure(s): XR chest 1V Accession Number(s): [id number] cc: Valeri Lerner DO; Neha Roman Reason [...] Dumont MD in OV> 06/26/25 1617 DD/ 15 TD/TT: 06/26/251615 Superintendent Renting Managing: [facility] External Provider IMG XR PROCEDURES Edited Result - Final * (ABNORMAL) Urinalysis, Complete, with Reflex to Culture (06/26/2025 2:58 PM EST) Only the most recent of2 resultswithin the time period is included. Color Urine Yellow [facility] Appearance Urine Clear [facility] PH 6.5 5.0 - 9.0 [facility] Glucose Urine UA Negative Negative mg/dL [facility] Urine Blood Trace(A) Negative [facility] Specific [place] - Urine 1.010 1.005 - 1.025 [facility] Urine Protein 30 (1+)(A) Neg-Trace mg/dL [facility] Urine Ketones Negative Negative mg/dL [facility] Nitrite Urine Negative Negative [facility] Leukocyte Esterase Urine Negative Negative [facility] RBC Urine 0-2 0 - 2 /HPF [facility] Urine WBC 0-5 0 - 5 /HPF [facility] Urine Squamous Epithelial Cell 0-2 0 - 2 /HPF [facility] Urine Bacteria None Seen None Seen [facility] Hyaline Casts, Urine 0-2 0 - 2 /LPF [facility] 06/26/2025 2:58 PM EST 06/26/2025 3:01 PM EST Narrative [facility] - 06/26/2025 3:12 PM EST Urine, Clean Catch Generic External Data Provider LAB URINE ORDERAB LES Final Result [facility] [address] [place] [phone] * (ABNORMAL) Urinalysis w/reflex microscopic (06/26/2025 2:58 PM EST) Color Urine Yellow [facility] Appearance Urine Clear [facility] PH 6.5 5.0 - 9.0 [facility] Glucose Urine UA Negative Negative mg/dL [facility] Urine Blood Trace(A) Negative [facility] Specific [place] - Urine 1.010 1.005 - 1.025 [facility] Urine Protein 30 (1+)(A) Neg-Trace mg/dL [facility] Urine Ketones Negative Negative mg/dL [facility] Nitrite Urine Negative Negative [facility] Leukocyte Esterase Urine Negative Negative [facility] 06/26/2025 2:58 PM EST 06/26/2025 3:01 PM EST Narrative [facility] - 06/26/2025 3:07 PM EST Urine, Clean Catch us Generic External Data Provider LAB URINE ORDERAB LES Final Result Performing Organization Address City/State/[facility] de Phone Number [facility] [address] [place] [address] [phone] * CT Abdomen Pelvis w/o Contrast (06/26/2025 1:34 PM EST) Anatomical Region Laterality Modality Body, Pelvis, Abdomen Computed T omography 06/26/2025 1:34 PM EST Narrative 06/26/2025 1:35 PM EST [place] [address] CT Scan Report Signed Patient: Nikky Guevara MR#: [id number] : 1935 Acct:[id number] Age/Sex: 89 / F ADM Date: 06/26/25 Loc: HO.ED Attending Dr: Ordering Physician: Neha Roman Date of Service: 06/26/25 Procedure(s): CT abdomen pelvis wo IV con Accession Number(s): [id number] cc: Valeri Lerner DO; Neha Roman Report Number: [id number]: Total DLP = 1078.00 mGy-cm Reason for [...] 06/26/25 1335 DD/ 1334 TD/TT: 06/26/25 1334 Superintendent Renting Managing: Procedure Note Donotuseinterpreter, Image - 06/26/[address] [address] [address] Scan Report Signed Patient: Real GuevaraGabriele#: [id number] : 6Acct:[id number] Age/Sex: 89 / FADM Date: 06/26/25 Loc: HO.ED Attending Dr: Ordering Physician: Neha Roman Date of Service: 06/26/25 Procedure(s): CT abdomen pelvis wo IV con Accession Number(s): [id number] cc: Valeri Lerner DO; Neha Roman Report Number: [id number]: Total DLP = 1078.00 mGy-cm Reason for [...] 06/26/25 1335 DD/ 1334 TD/TT: 06/26/25 1334 Superintendent Renting Managing: [facility] External Provider IM CT PROCEDURES Final Result * (ABNORMAL) Prothrombin Time-INR (06/23/2025) Only the most recent of7 resultswithin the time period is included. INR 2.60(A) 2.00 - 3.00 Protime Blood Venous blood specimen / Unknown 06/23/2025 us Historical Provider MD LAB BLOOD ORDERABLES Anastasiya l Result * (ABNORMAL) Glucose, Whole Blood (05/28/2025 7:16 AM EDT) Only the most recent of2 resultswithin the time period is included. Glucose, Whole Blood 117(H) 60 - 115 mg/dL [facility] Comment:METER #: [id number] 05/28/2025 7:16 AM EDT 05/28/2025 7:20 AM EDT Generic External Data Provider LAB BLOOD ORDERAB LES Final Result Performing Organization Address [facility] Co de Phone Number [facility] [address] [place] [phone] * Blood Culture (First) (05/27/2025 10:18 PM EDT) Blood Venous blood specimen / Unknown 05/27/2025 10:18 PM EDT 05/27/2025 10:23 PM EDT Comment:Blood [facility] - 06/02/2025 12:24 AM EST Blood Culture (First) No growth after 5 days. Specimen Source: Blood Generic External Data Provider LAB MICROBIOLOGY - GENERAL ORDERABLES Final Result Performing Organization Address City/[facility]/ZIP Co de Phone Number [facility] [address] [place] [phone] * Blood Culture (Second) (05/27/2025 10:18 PM EDT) Blood Venous blood specimen / Unknown 05/27/2025 10:18 PM EDT 05/27/2025 10:28 PM EDT Comment:Blood Narrative [facility] - 06/02/2025 12:28 AM EST Blood Culture (Second) No growth after 5 days. Specimen Source: Blood Generic External Data Provider LAB MICROBIOLOGY - GENERAL ORDERABLES Final Result Performing Organization Address City/[facility]/ZIP Co de Phone Number [facility] [address] [place] [phone] [phone] * Lactic Acid (05/27/2025 10:18 PM EDT) Lactic Acid 0.8 0.5 - 2.0 mmol/L [facility] 05/27/2025 10:1 8 PM EDT 05/27/2025 10:23 PM EDT Generic External Data Provider LAB BLOOD ORDERAB LES Final Result Performing Organization Address [facility] Co de Phone Number [facility] [address] [place] [phone] * Influenza A B2 ID NOW (Crowe) (05/27/2025 6:11 PM EDT) IDNOW SERIAL# [id number] [facility] Influenza A Negative Negative [facility] Influenza B2 Negative Negative [facility] Influenza A B2 Note See Note [facility] Comment:The Crowe ID NOW In [...] GENERAL ORDERABLES Final Result Performing Organization Address City/[facility] Co de Phone Number [facility] [address] [place] [phone] * COVID-19 ID NOW (CROWE) (05/27/2025 6:11 PM EDT) IDNOW SERIAL# [id number] [facility] COVID-19 TEST Negative Negative [facility] COVID-19 NOTE See Note [facility] Comment: Results are for the identification of SARS-CoV2 RNA. TheSARS-CoV2 RNA is generally detectable in respiratory samplesduring the acute phase of infection. Positive results areindicative of the presence of SARS-CoV-2 RNA; clinicalcorrelation with patient history and other diagnosticinformation is necessary to determine patient infectionstatus. Positive results do not rule out bacterial infectionor co- infection with other viruses.Testing facilities within the [facility] and itsterritories are required to report all [...] use by authorized laboratories.Testing performed on the [employer] ID NOW utilizing NAAT. 05/27/2025 6:11 PM EDT 05/27/2025 6:15 PM EDT us Generic External Data Provider LAB MOLECULAR [employer] ORDERABLES Final Result [facility] [address] [place] [phone] * (ABNORMAL) CBC auto differential (05/27/2025 6:11 PM EDT) White Blood Count 10.8 4.8 - 10.8 X10*3/uL [facility] Red Blood Count 3.95(L) 4.20 - 5.50 X10*6/uL [facility] Hemoglobin 12.2 12.0 - 16.0 g/dl [facility] Hematocrit 38.1 37.0 - 47.0 % [facility] Mean Corpuscular Volume 96.5 80.0 - 98.0 fL [facility] Mean Corpuscular Hemoglobin 30.9 27.0 - 33.0 pg [facility] Mean Corpuscular HGB Conc 32.0 31.0 - 35.0 g/dl [facility] Red Cell Distribution Width 14.6 11.0 - 16.0 % [facility] Platelet Count 179 160 - 400 X10*3/uL [facility] Mean Platelet Volume 11.3 9.4 - 12.3 fL [facility] Neutrophils Percent Auto 78.5(H) 45 - 73 % [facility] Imm Gran Pct Auto 0.4 0.0 - 0.4 % [facility] Lymphocytes Percent Auto 11.9(L) 20 - 40 % [facility] Monocytes Percent Auto 6.0 2 - 11 % [facility] Eosinophils Percent Auto 2.9 0 - 4 % [facility] Basophils Percent Auto 0.3 0 - 2 % [facility] NRBC Pct Auto 0.0 0.0 - 0.2 /100WBC [facility] Neutrophils Absolute Auto 8.4(H) 2.0 - 8.3 x10*3/uL [facility] Imm Gran Abs Auto 0.04(H) 0.00 - 0.03 X10*3/uL [facility] Lymphocytes Absolute Auto 1.3 1.2 - 4.9 X10*3/uL [facility] Monocytes Absolute Auto 0.7 0.1 - 1.2 X10*3/uL [facility] Eosinophils Absolute Auto 0.3 0.0 - 0.4 X10*3/uL [facility] Basophils Absolute Auto 0.0 0.0 - 0.2 X10*3/uL [facility] NRBC Abs Auto 0.000 0.0 - 0.012 X10*3/uL [facility] 05/27/2025 6:11 PM EDT 05/27/2025 6:15 PM EDT us Generic External Data Provider LAB BLOOD ORDERAB LES Final Result [facility] [address] [place] [address] [phone] * (ABNORMAL) Comprehensive Metabolic Panel (05/27/2025 6:11 PM EDT) Sodium 139 135 - 145 mmol/L [facility] Potassium 4.5 3.3 - 5.1 mmol/L [facility] Chloride 98 96 - 108 mmol/L [facility] Carbon Dioxide 34(H) 22 - 29 mmol/L [facility] Anion Gap 12 12 - 20 [facility] Urea Nitrogen (BUN) 38(H) 9 - 16 mg/dL [facility] Creatinine, Serum 1.24 0.5 - 1.4 mg/dL [facility] Creatinine Clr Calc Pharmacy 32.9 [facility] Comment:Provided height and weight: 157.48 cm,94.6 kg.eGFR (calculated from the MDRD study equation) and eCrCl(calculated from the Cockcroft-Gault equation) are based ondifferent parameters and may not yield comparable results.If eCrCl result is absurd, please check patient'sheight/weight. Estimated Glomerular Filt Rate 41 [facility] Comment:Chronic Kidney Disea se: Estimated GFR < 60 mL/min/1.19j1Lpgqdu Kidney Disease: Estimated GFR < 15 mL/min/1.73m2 Glucose 219(H) 60 - 115 mg/dL [facility] Calcium 9.9 8.4 - 10.2 mg/dL [facility] Bilirubin, Total 0.6 0.0 - 1.0 mg/dL [facility] Aspartate Amino Transferase 28 5 - 31 U/L [facility] Alanine Aminotransferase 22 0 - 31 U/L [facility] Total Protein 7.9 6.5 - 8.0 g/dL [facility] Albumin Level 4.0 3.5 - 5.0 g/dL [facility] Alkaline Phosphatase 122(H) 39 - 117 U/L [facility] 05/27/2025 6:11 PM EDT 05/27/2025 6:15 PM EDT Generic External Data Provider LAB BLOOD ORDERAB LES Final Result Performing Organization Address City/[facility]/ZIP Co de Phone Number [facility] [address] [place] [phone] * Culture, Urine, Routine (05/27/2025 12:00 AM EDT) Urine Urine specimen obtained by clean catch procedure / Unknown 05/27/2025 05/27/2025 Comment:UACC Narrative [facility] - 05/29/2025 10:36 AM EDT Urine Culture Report Result Urine Culture 10,000 to 50,000 cfu/ml Urine Culture Mixed bacterial edilson characteristic of Urine Culture urogenital contamination. Specimen Source: Urine clean catch Generic External Data Provider LAB MICROBIOLOGY - GENERAL ORDERABLES Final Result Performing Organization Address [facility] Co de Phone Number [facility] [address] [place] [phone] * (ABNORMAL) POCT HGB A1C (03/07/2025 1:53 PM EDT) Hemoglobin A1C 7.6(A) 4.0 - 5.7 % QC Media Lot # [id number] Lot# Expiration Date Blood 03/07/2025 1:53 PM EDT [facility] LIBRARY INFORMATION TECHNICIAN POINT OF CARE TEST ENTER/EDIT ORDERABLES Final Result * Referral to Podiatry (01/10/2025) Valeri Lerner DO OUTPATIENT REFERRAL ORDERABL ES Final Result * (ABNORMAL) Albumin, Random Urine W/Creatinine (08/31/2023 4:16 PM EST) Creatinine, Urine 25.77 mg/dL [facility] Microalbumin Urine 31.0 mg/L [facility] Microalbum Creatinine Ratio Ur 120.2(H) <30 ug/mg cr [facility] Comment:Albumin/Creatinine R atio Reference Ranges: Normal: < 30 ug/mg creatinine Microalbuminuria: 30 - 300 ug/mg creatinineClinical Albuminuria: > 300 ug/mg creatinine Urine (Urine, Random) 08/31/2023 4:16 PM EST 08/31/2023 5:27 PM EST us Valeri Lerner DO LAB URINE ORDERABLES Final R esult [facility] [address] [place] [phone] * (ABNORMAL) Lipid Panel, Standard (08/31/2023 4:11 PM EST) Triglycerides 349(H) <150 mg/dL [facility] Comment:Desirable Triglyceri de: less than 150 mg/dLBorderline High Triglyceride 150-199 mg/dLHigh Triglyceride: 200-499 mg/dLVery High Triglyceride: greater than or equal to 5OO mg/dL Cholesterol 149 <200 mg/dL [facility] Comment:Desirable Cholestero l: less than 200 mg/dLBorderline High Cholesterol: 200-239 mg/dLHigh Cholesterol: greater than 239 mg/dL LDL Cholesterol Calculated 41 <100 mg/dL [facility] Comment:Desirable LDL: less than 100 mg/dLNear Optimal/Above Optimal LDL: 110- 129 mg/dLBorderline High LDL: 130-159 mg/dLHigh LDL: 160-189 mg/dLVery High LDL: greater than or equal to 190 mg/dL HDL Cholesterol 39(L) >40 mg/dL [facility] Comment:Desirable HDL: great er than 40 mg/dL Note: This HDL assay may give artificially low results in patients with liver disease. Blood Venous blood specimen / Unknown 08/31/2023 4:11 PM EST 08/31/2023 5:27 PM EST us Valeri Lerner DO LAB BLOOD ORDERABLES Final R esult [facility] [address] [place] [phone] from Last 3 Months or Most [...] kidney disease 07/02/2025 Weekly blood pressure task 07/15/2025 Weekly blood pressure task 07/15/2025 Patient has chronic kidney disease 07/15/2025 Patient has chronic kidney disease 07/15/2025 Insurance [facility] STAND[facility] DUAL COMPLETE Care Teams Advanced Practice Rn Relationship Specialty Start Date End Date Valeri Lerner DO [address] [place] [phone] PCP - General Family Medicine 07/13/12 [employer] 12/08/23
--- OUTSIDE RECORDS SUMMARY | 2025-07-18 14:42 | XMS_ITS | Encounter Summary ---
Author Organization [facility] Address [address] [place] [address] Care Team Providers Care Voice Network Engineer Name Role Phone Valeri Lerner Primary Care Provider [phone] Encounter Details Date Type Department Care Team (Late st Contact Info) Description 07/12/2025 Lab Requisition [facility] - Main Lab [address] [facility] [place] [address] Kymberly Horne MD [address] [phone] Essential (primary) hypertension; Unspecified atrial fibrillation (CMS/HCC [...] Procedure Name Priority Date/Time Associated Diagnosis Comments CBC WITH AUTO DIFFERENTIAL Routine 07/14/2025 4:44 AM EST Essential (primary) hypertension Unspecified atrial fibrillation (CMS/HCC V24, CMS/HCC V28) Heart failure, unspecified (CMS/HCC V24, CMS/HCC V28) Chronic embolism and thrombosis of unspecified vein PROTHROMBIN TIME WITH INR Routine 07/14/2025 4:44 AM EST Essential (primary) hypertension Unspecified atrial fibrillation (CMS/HCC V24, CMS/HCC V28) Heart failure, unspecified (CMS/HCC V24, CMS/HCC V28) Chronic embolism and thrombosis of unspecified vein CBC AND DIFFERENTIAL Routine 07/14/2025 4:44 AM EST Essential (primary) hypertension Unspecified atrial fibrillation (CMS/HCC V24, CMS/HCC V28) Heart failure, unspecified (CMS/HCC V24, CMS/HCC V28) Chronic embolism and thrombosis of unspecified vein BASIC METABOLIC PANEL Routine 07/14/2025 4:44 AM EST Essential (primary) hypertension Unspecified atrial fibrillation (CMS/HCC V24, CMS/HCC V28) Heart failure, unspecified (CMS/HCC V24, CMS/HCC V28) Chronic embolism and thrombosis of unspecified vein documented in this encounter Results * (ABNORMAL) CBC auto differential (07/14/2025 4:44 AM EST) [facility] WBC 9.4 4.8 - 10.8 K/mcL LAB HEMETOLOGY METHOD 07/14/2025 9:47 AM [facility] RBC 3.90 3.80 - 4.80 M/mcL LAB HEMETOLOGY METHOD 07/14/2025 9:47 AM [facility] Hemoglobin 11.8 11.5 - 16.0 g/dL LAB HEMETOLOGY METHOD 07/14/2025 9:47 AM [facility] Hematocrit 37.5 35.0 - 47.0 % LAB HEMETOLOGY METHOD 07/14/2025 9:47 AM [facility] MCV 96.2 79.0 - 98.0 FL LAB HEMETOLOGY METHOD 07/14/2025 9:47 AM [facility] MCH 30.3 27.0 - 32.0 pcg LAB HEMETOLOGY METHOD 07/14/2025 9:47 AM [facility] MCHC 31.5(L) 32.0 - 37.0 g/dL LAB HEMETOLOGY METHOD 07/14/2025 9:47 AM [facility] RDW 14.3 11.0 - 15.0 % LAB HEMETOLOGY METHOD 07/14/2025 9:47 AM [facility] Platelets 200 130 - 400 K/mcL LAB HEMETOLOGY METHOD 07/14/2025 9:47 AM [facility] MPV 11.5(H) 7.0 - 11.0 FL LAB HEMETOLOGY METHOD 07/14/2025 9:47 AM [facility] NRBC 0.0 <1.0 % LAB HEMETOLOGY METHOD 07/14/2025 9:47 AM [facility] NRBC Absolute 0.00 <0.10 K/mcL LAB HEMETOLOGY METHOD 07/14/2025 9:47 AM [facility] Neutrophils Relative 60.1 % LAB HEMETOLOGY METHOD 07/14/2025 9:47 AM [facility] Lymphocytes Relative 26.9 % LAB HEMETOLOGY METHOD 07/14/2025 9:47 AM [facility] Monocytes Relative 6.3 % LAB HEMETOLOGY METHOD 07/14/2025 9:47 AM [facility] Eosinophils Relative 5.7 % LAB HEMETOLOGY METHOD 07/14/2025 9:47 AM [facility] Basophils Relative 0.7 % LAB HEMETOLOGY METHOD 07/14/2025 9:47 AM [facility] Immature Granulocytes Relative 0.3 % LAB HEMETOLOGY METHOD 07/14/2025 9:47 AM [facility] Neutrophils Absolute 5.63 1.50 - 7.00 K/mcL LAB HEMETOLOGY METHOD 07/14/2025 9:47 AM [facility] Lymphocytes Absolute 2.52 1.00 - 5.00 K/mcL LAB HEMETOLOGY METHOD 07/14/2025 9:47 AM [facility] Monocytes Absolute 0.59 0.20 - 1.00 K/[facility] LAB HEMETOLOGY METHOD 07/14/2025 9:47 AM EST [facility] Eosinophils Absolute 0.53(H) 0.00 - 0.50 K/[facility] LAB HEMETOLOGY METHOD 07/14/2025 9:47 AM EST [facility] Basophils Absolute 0.07 0.00 - 0.20 K/[facility] LAB HEMETOLOGY METHOD 07/14/2025 9:47 AM EST [facility] Immature Granulocytes Absolute 0.03 0.00 - 0.03 K/[facility] HEMETOLOGY METHOD 07/14/2025 9:47 AM EST [facility] Blood Venous blood specimen / Unknown Venipuncture / Unknown 07/14/2025 4:44 AM EST 07/14/2025 9:35 AM EST Kymberly Horne MD LAB BLOOD ORDERABLES Fin al Result [facility] [address] [place] [address], [place] [phone] * (ABNORMAL) Prothrombin time with INR (07/14/2025 4:44 AM EST) Protime 16.2(H) 10.6 - 13.9 sec LAB COAGULATION METHOD 07/14/2025 9:56 AM EST [facility] INR 1.3 LAB COAGULATION METHOD 07/14/2025 9:56 AM EST [facility] Blood Venous blood specimen / Unknown Venipuncture / Unknown 07/14/2025 4:44 AM EST 07/14/2025 9:35 AM EST Kymberly Horne MD LAB BLOOD ORDERABLES Fin al Result [facility] [address] [place], [place] [address] [phone] * (ABNORMAL) Basic metabolic panel (07/14/2025 4:44 AM EST) Sodium 141 133 - 145 mmol/L 07/14/2025 10:16 AM [facility] Potassium 4.2 3.5 - 5.5 mmol/L 07/14/2025 10:16 AM [facility] Chloride 100 96 - 110 mmol/L 07/14/2025 10:16 AM [facility] CO2 32 21 - 32 mmol/L 07/14/2025 10:16 AM [facility] Anion Gap 9 3 - 11 07/14/2025 10:16 AM [facility] Glucose 130(H) 70 - 100 mg/dL 07/14/2025 10:16 AM [facility] BUN 32(H) 5 - 25 mg/dL 07/14/2025 10:16 AM [facility] Creatinine 1.27(H) 0.50 - 1.10 mg/dL 07/14/2025 10:16 AM [facility] eGFR 41(L) >=60 mL/min/1. 73m2 07/14/2025 10:16 AM [facility] Comment:Calculation based on the Chronic Kidney Disease Epidemiology Collaboration (CKD-EPI) equation refit without adjustment for race. BUN/Creatinine Ratio 25.2 07/14/2025 10:16 AM [facility] Calcium 9.9 8.5 - 10.5 mg/dL 07/14/2025 10:16 AM [facility] Blood Venous blood specimen / Unknown Venipuncture / Unknown 07/14/2025 4:44 AM EST 07/14/2025 9:35 AM EST Kymberly Horne MD LAB BLOOD ORDERABLES Fin al Result [facility] [address] [place] [address], documented in this encounter Visit Diagnoses Diagnosis Essential (primary) hypertension Unspecified essential hypertension Unspecified atrial fibrillation (CMS/[facility] V24, [facility] V28) Heart failure, unspecified (CMS/[facility] V24, CMS/[facility] V28) Heart failure, unspecified Chronic embolism and thrombosis of unspecified vein documented in this encounter Care Teams Voice Network Engineer Relationship Specialty Start Date End Date Valeri Lerner DO [address] [place] [address] PCP - General 11/15/14 documented as of this encounter
--- OUTSIDE RECORDS SUMMARY | 2025-07-18 14:42 | XMS_ITS | Encounter Summary ---
Author Organization [facility] Address [address] [place] [address] Care Team Providers Care Supply Officer Name Role Phone Valeri Lerner Primary Care Provider [phone]- [phone] Encounter Details Date Type Department Care Team (Late st Contact Info) Description 11/01/[address] [facility] - Main Lab [address] [place] [address] Amrita Polanco MD [address] [place] [phone] Heart failure, unspecified (CMS/HCC V24, CMS/HCC V28) [...] sec LAB COAGULATION METHOD 11/01/2024 9:58 AM [facility] INR 1.2 LAB COAGULATION METHOD 11/01/2024 9:58 AM [facility] Blood Venous blood specimen / Unknown Venipuncture / Unknown 11/01/2024 6:48 AM EDT 11/01/2024 9:35 AM EDT us Amrita Polanco MD LAB BLOOD ORDERABLES Final Resu lt [facility] ([facility]) [facility] [address] [place] [address], documented in this encounter Visit Diagnoses Diagnosis Heart failure, unspecified (CMS/HCC V24, CMS/HCC V28) Heart failure, unspecified documented in this encounter Care Teams Supply Officer Relationship Specialty Start Date End Date Valeri Lerner DO [address] [place] [address] PCP - General 11/15/14 documented as of this encounter
--- OUTSIDE RECORDS SUMMARY | 2025-07-18 14:42 | XMS_ITS | Encounter Summary ---
Author Organization [employer] Address [address] [facility] [address] [place] [address] Care Team Providers Care Small Lot Operator Name Role Phone Valeri Lenrer DO Primary Care Provider Batsheva Gomez PharmD Unavailable [phone] Encounter Details Date Type Department Care Team (Late st Contact Info) Description 01/26/2024 Telephone [facility] [address] [place], [place] [phone] Valeri Lerner DO [address] [place], [place] [phone] Social History Tobacco Use Types Packs/Day Years [...] the past 12 months, has t he [employer], gas, oil or water company threatened to [...] Description 08/05/2025 10:45 AM EST Office Visit [facility] [address] [place] [phone] Ericka Sarmiento MD [address] [place] [phone] documented as of this encounter Visit Diagnoses Not on filedocumented in this encounter Additional Health Concerns Assessment Noted Time PHQ-9 Depression Total Score: 2 08/23/19 24 11:01 AM EST documented as of this encounter Care Teams Small Lot Operator Relationship Specialty Start Date End Date Valeri Lerner DO [address] [place] [phone] PCP - General Family Medicine 07/13/12 Batsheva Gomez PharmD [address] [place] [phone] Pharmacist Internal Medicine 03/07/24 12/19/24 [employer] 12/08/23 documented as of this encounter
--- OUTSIDE RECORDS SUMMARY | 2025-07-18 14:42 | XMS_ITS | Clinical Summary ---
Author Organization [address] Address [address] [place] [address] Phone Care Team Providers Care Plate Stacker Hand Name Role Phone CarlynValeri townsend Primary Care Provider +1- [phone] Encounters Date Type Department Care Team Description 07/12/2025 Lab Requisition [facility] [address] [place] [phone] Kymberly Horne MD Essential (primary) hypertension; Unspecified atrial fibrillation (CMS/HCC V24, CMS/HCC V28); Heart failure, unspecified (CMS/HCC V24, CMS/HCC V28); Chronic embolism and thrombosis of unspecified vein 07/04/2025 Lab Requisition [facility] [address] [place] [phone] Kymberly Horne MD Essential (primary) hypertension; Unspecified atrial fibrillation (CMS/HCC V24, CMS/HCC V28); Heart failure, unspecified (CMS/HCC V24, CMS/HCC V28); Chronic embolism and thrombosis of unspecified vein 07/03/2025 Lab Requisition [facility] [address] [place] [phone] Kymberly Horne MD Chronic embolism and thrombosis of unspecified vein 07/02/2025 Lab Requisition [facility] [address] [place] [phone] Kymberly Horne MD Essential (primary) hypertension; Unspecified atrial fibrillation (CMS/HCC V24, CMS/HCC V28); Type 2 diabetes mellitus with unspecified complications (CMS/HCC V24, CMS/HCC V28) 06/11/2025 Lab Requisition [facility] [address] [place] [phone] Macario Green MD Unspecified atrial fibrillation (CMS/HCC V24, CMS/HCC V28) 06/10/2025 Lab Requisition [facility] [address] [place] [phone] Macario Green MD Unspecified atrial fibrillation (CMS/HCC V24, CMS/HCC V28) 06/09/2025 Lab Requisition [facility] [address] [place] [phone] Macario Green MD Unspecified atrial fibrillation ([facility]/HCC V24, [facility]/HCC V28) 06/07/2025 Lab Requisition [facility] [address] [place] [phone] Macario Green MD repairer handtools (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 06/05/2025 Lab Requisition [facility] [address] [place] [phone] Macario Green MD Unspecified atrial fibrillation (CMS/HCC V24, CMS/HCC V28) 06/04/2025 Lab Requisition [facility] [address] [place] [phone] Macario Green MD Paroxysmal atrial fibrillation ([facility]/HCC V24, [facility]/HCC V28) 06/03/2025 Lab Requisition [facility] [address] [place] [phone] Macario Green MD Heart failure, unspecified (CMS/HCC V24, [facility]/HCC V28); Essential (primary) hypertension; Paroxysmal atrial fibrillation (CMS/HCC V24, CMS/HCC V28); repairer handtools (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 06/02/2025 Lab Requisition [facility] [address] [place] [phone] Macario Green MD assisted (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 05/30/2025 Lab Requisition [facility] - Main Lab 299 [facility] [place] [address] Macario Green MD Type 2 diabetes mellitus with diabetic polyneuropathy ([facility] V24, [facility] V28); Hyperlipidemia, unspecified; Chronic atrial fibrillation, unspecified ([facility] V24, [facility] V28); Essential (primary) hypertension; repairer handtools (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 from Last 3 [...] 01/10/2026 01/10/2025 Hypertension/CHF/CAD Annual BMP Blood Test 07/14/2026 07/14/2025, 07/07/2025, 07/02/2025, Additional history exists Cholesterol Screening (Lipid Panel) [...] unspecified vein PROTHROMBIN TIME WITH INR Routine 07/07/2025 4:43 [...] WITH INR Routine 06/07/2025 5:28 AM EST assisted (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 PROTHROMBIN TIME WITH INR Routine 06/05/2025 7:00 AM EST Unspecified atrial fibrillation (CMS/HCC V24, CMS/HCC V28) PROTHROMBIN TIME WITH INR Routine 06/04/2025 5:27 AM EST Paroxysmal atrial fibrillation (CMS/HCC V24, CMS/HCC V28) PROTHROMBIN TIME WITH INR Routine 06/03/2025 6:05 AM EST Heart failure, unspecified (CMS/HCC V24, CMS/HCC V28) Essential (primary) hypertension Paroxysmal atrial fibrillation (CMS/HCC V24, CMS/HCC V28) repairer handtools (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 PROTHROMBIN TIME WITH INR Routine 06/02/2025 6:24 AM EST repairer handtools (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 PROTHROMBIN TIME WITH INR Routine 05/30/2025 6:09 AM EDT 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, CMS/HCC V28) Hyperlipidemia, unspecified Chronic atrial fibrillation, unspecified (CMS/HCC V24, CMS/HCC V28) Essential (primary) hypertension repairer handtools (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 BASIC METABOLIC PANEL Routine 05/30/2025 6:09 AM EDT Type 2 diabetes mellitus with diabetic polyneuropathy ([facility]/HCC V24, [facility]/HCC V28) Hyperlipidemia, unspecified Chronic atrial fibrillation, unspecified (CMS/HCC V24, CMS/HCC V28) Essential (primary) hypertension assisted (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 COMPLETE BLOOD COUNT Routine 05/30/2025 6:09 AM EDT Type 2 diabetes mellitus with diabetic polyneuropathy ([facility]/HCC V24, [facility] V28) Hyperlipidemia, unspecified Chronic atrial fibrillation, unspecified ([facility]/HCC V24, CMS/HCC V28) Essential (primary) hypertension assisted (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 from Last 3 Months Results * (ABNORMAL) CBC auto differential (07/14/2025 4:44 AM EST) [facility] WBC 9.4 4.8 - 10.8 K/mcL LAB HEMETOLOGY METHOD 07/14/2025 9:47 AM [facility] RBC 3.90 3.80 - 4.80 M/mcL LAB HEMETOLOGY METHOD 07/14/2025 9:47 AM [facility] Hemoglobin 11.8 11.5 - 16.0 g/dL LAB HEMETOLOGY METHOD 07/14/2025 9:47 AM [facility] Hematocrit 37.5 35.0 - 47.0 % LAB HEMETOLOGY METHOD 07/14/2025 9:47 AM [facility] MCV 96.2 79.0 - 98.0 FL LAB HEMETOLOGY METHOD 07/14/2025 9:47 AM [facility] MCH 30.3 27.0 - 32.0 pcg LAB HEMETOLOGY METHOD 07/14/2025 9:47 AM [facility] MCHC 31.5(L) 32.0 - 37.0 g/dL LAB HEMETOLOGY METHOD 07/14/2025 9:47 AM [facility] RDW 14.3 11.0 - 15.0 % LAB HEMETOLOGY METHOD 07/14/2025 9:47 AM [facility] Platelets 200 130 - 400 K/mcL LAB HEMETOLOGY METHOD 07/14/2025 9:47 AM [facility] MPV 11.5(H) 7.0 - 11.0 FL LAB HEMETOLOGY METHOD 07/14/2025 9:47 AM [facility] NRBC 0.0 <1.0 % LAB HEMETOLOGY METHOD 07/14/2025 9:47 AM [facility] NRBC Absolute 0.00 <0.10 K/mcL LAB HEMETOLOGY METHOD 07/14/2025 9:47 AM [facility] Neutrophils Relative 60.1 % LAB HEMETOLOGY METHOD 07/14/2025 9:47 AM [facility] Lymphocytes Relative 26.9 % LAB HEMETOLOGY METHOD 07/14/2025 9:47 AM [facility] Monocytes Relative 6.3 % LAB HEMETOLOGY METHOD 07/14/2025 9:47 AM [facility] Eosinophils Relative 5.7 % LAB HEMETOLOGY METHOD 07/14/2025 9:47 AM [facility] Basophils Relative 0.7 % LAB HEMETOLOGY METHOD 07/14/2025 9:47 AM [facility] Immature Granulocytes Relative 0.3 % LAB HEMETOLOGY METHOD 07/14/2025 9:47 AM [facility] Neutrophils Absolute 5.63 1.50 - 7.00 K/mcL LAB HEMETOLOGY METHOD 07/14/2025 9:47 AM [facility] Lymphocytes Absolute 2.52 1.00 - 5.00 K/mcL LAB HEMETOLOGY METHOD 07/14/2025 9:47 AM EST [facility] Monocytes Absolute 0.59 0.20 - 1.00 K/[facility] LAB HEMETOLOGY METHOD 07/14/2025 9:47 AM EST [facility] Eosinophils Absolute 0.53(H) 0.00 - 0.50 K/[facility] LAB HEMETOLOGY METHOD 07/14/2025 9:47 AM EST [facility] Basophils Absolute 0.07 0.00 - 0.20 K/[facility] LAB HEMETOLOGY METHOD 07/14/2025 9:47 AM EST [facility] Immature Granulocytes Absolute 0.03 0.00 - 0.03 K/[facility] LAB HEMETOLOGY METHOD 07/14/2025 9:47 AM EST [facility] Blood Venous blood specimen / Unknown Venipuncture / Unknown 07/14/2025 4:44 AM EST 07/14/2025 9:35 AM EST us Kymberly Horne MD LAB BLOOD ORDERABLES Fin al Result [facility] [address] [place] [address], * (ABNORMAL) Prothrombin time with INR (07/14/2025 4:44 AM EST) Only the most recent of13 resultswithin the time period is included. Protime 16.2(H) 10.6 - 13.9 sec LAB COAGULATION METHOD 07/14/2025 9:56 AM EST [facility] INR 1.3 LAB COAGULATION METHOD 07/14/2025 9:56 AM EST [facility] Blood Venous blood specimen / Unknown Venipuncture / Unknown 07/14/2025 4:44 AM EST 07/14/2025 9:35 AM EST us Kmyberly Horne MD LAB BLOOD ORDERABLES Fin al Result [facility] [address] [place] [address], * (ABNORMAL) Basic metabolic panel (07/14/2025 4:44 AM EST) Only the most recent of4 resultswithin the time period is included. Sodium 141 133 - 145 mmol/L 07/14/2025 10:16 AM [facility] Potassium 4.2 3.5 - 5.5 mmol/L 07/14/2025 10:16 AM [facility] Chloride 100 96 - 110 mmol/L 07/14/2025 10:16 AM [facility] CO2 32 21 - 32 mmol/L 07/14/2025 10:16 AM [facility] Anion Gap 9 3 - 11 07/14/2025 10:16 AM [facility] Glucose 130(H) 70 - 100 mg/dL 07/14/2025 10:16 AM [facility] BUN 32(H) 5 - 25 mg/dL 07/14/2025 10:16 AM [facility] Creatinine 1.27(H) 0.50 - 1.10 mg/dL 07/14/2025 10:16 AM [facility] eGFR 41(L) >=60 mL/min/1. 73m2 07/14/2025 10:16 AM [facility] Comment:Calculation based on the Chronic Kidney Disease Epidemiology Collaboration (CKD-EPI) equation refit without adjustment for race. BUN/Creatinine Ratio 25.2 07/14/2025 10:16 AM [facility] Calcium 9.9 8.5 - 10.5 mg/dL 07/14/2025 10:16 AM [facility] Blood Venous blood specimen / Unknown Venipuncture / Unknown 07/14/2025 4:44 AM EST 07/14/2025 9:35 AM EST us Kymberly Horne MD LAB BLOOD ORDERABLES Fin al Result [facility] [address] [place] [address], * (ABNORMAL) Complete blood count (07/07/2025 4:43 AM EST) Only the most recent of3 resultswithin the time period is included. WBC 8.2 4.8 - 10.8 K/mcL LAB HEMETOLOGY METHOD 07/07/2025 10:20 AM [facility] RBC 3.90 3.80 - 4.80 M/mcL LAB HEMETOLOGY METHOD 07/07/2025 10:20 AM [facility] Hemoglobin 11.8 11.5 - 16.0 g/dL LAB HEMETOLOGY METHOD 07/07/2025 10:20 AM [facility] Hematocrit 37.3 35.0 - 47.0 % LAB HEMETOLOGY METHOD 07/07/2025 10:20 AM [facility] MCV 96.6 79.0 - 98.0 FL LAB HEMETOLOGY METHOD 07/07/2025 10:20 AM [facility] MCH 30.6 27.0 - 32.0 pcg LAB HEMETOLOGY METHOD 07/07/2025 10:20 AM [facility] MCHC 31.6(L) 32.0 - 37.0 g/dL LAB HEMETOLOGY METHOD 07/07/2025 10:20 AM [facility] RDW 14.0 11.0 - 15.0 % LAB HEMETOLOGY METHOD 07/07/2025 10:20 AM EST [facility] Platelets 184 130 - 400 K/mcL LAB HEMETOLOGY METHOD 07/07/2025 10:20 AM EST [facility] MPV 11.6(H) 7.0 - 11.0 FL LAB HEMETOLOGY METHOD 07/07/2025 10:20 AM EST [facility] NRBC 0.0 <1.0 % LAB HEMETOLOGY METHOD 07/07/2025 10:20 AM EST [facility] NRBC Absolute 0.00 <0.10 K/mcL LAB HEMETOLOGY METHOD 07/07/2025 10:20 AM EST [facility] Blood Venous blood specimen / Unknown Venipuncture / Unknown 07/07/2025 4:43 AM EST 07/07/2025 9:17 AM EST Kymberly Horne MD LAB BLOOD ORDERABLES Fin al Result [facility] [address] [place] [address], [place] [phone] * (ABNORMAL) Hemoglobin A1c (07/02/2025 8:03 AM EST) Hemoglobin A1C 6.7(H) <6.5 % LAB CHEMISTRY METHOD 07/02/2025 2:06 PM EST [facility] Mean Bld Glu Estim. 146 mg/dL LAB CHEMISTRY METHOD 07/02/2025 2:06 PM EST [facility] Blood Venous blood specimen / Unknown Venipuncture / Unknown 07/02/2025 8:03 AM EST 07/02/2025 10:06 AM EST Kymberly Horne MD LAB BLOOD ORDERABLES Fin al Result Performing Organization Address City/[facility]/ZIP Co de Phone Number [facility] [address] [place] [address], [place] [phone] from Last 3 Months Insurance [facility] CHARLI CUNHA [id number] Care Teams Plate Stacker Hand Relationship Specialty Start Date End Date Valeri Lerner DO [address] [place] [address] PCP - General 11/15/14
--- OUTSIDE RECORDS SUMMARY | 2025-07-18 14:42 | XMS_ITS | Encounter Summary ---
Author Organization [employer] Address [address] [facility] 7t [place] [address] Care Team Providers Care Systems Tester Name Role Phone Valeri Lerner DO Primary Care Provider Batsheva Gomez PharmD Unavailable Encounter Details Date Type Department Care Team (Late st Contact Info) Description 09/23/2022 Abstract [facility] [address] [place], [place] [phone] Valeri Lerner DO [address] [place], [place] [phone] Social History Tobacco Use Types Packs/Day Years [...] Description 08/05/2025 10:45 AM EST Office Visit [facility] [address] [place], [place] [phone] Ericka Sarmiento MD [address] [place], [place] [phone] documented as of this encounter Visit Diagnoses Not on filedocumented in this encounter Care Teams Systems Tester Relationship Specialty Start Date End Date Valeri Lerner DO [address] [place], [place] [phone] PCP - General Family Medicine 07/13/12 Batsheva Gomez PharmD [address] [place], [place] [phone] Pharmacist Internal Medicine 03/07/24 12/19/24 [employer] 12/08/23 documented as of this encounter
--- OUTSIDE RECORDS SUMMARY | 2025-07-18 14:42 | XMS_ITS | Encounter Summary ---
Author Organization [facility] Address [address] [place] [address] Care Team Providers Care Underwriting Analyst Name Role Phone Valeri Lerner Primary Care Provider +1- [phone] Encounter Details Date Type Department Care Team (Latest Contact Info) Description 10/22/2024 Lab Requisition [facility] - Main Lab [address] [facility] [place] [address] Amrita Polanco MD [address] [place] [address] Essential (primary) hypertension; Unspecified atrial fibrillation (CMS/HCC [...] mmol/L LAB CHEMISTRY METHOD 10/22/2024 11:07 AM [facility] Potassium 3.6 3.5 - 5.5 mmol/L LAB CHEMISTRY METHOD 10/22/2024 11:07 AM [facility] Chloride 105 96 - 110 mmol/L LAB CHEMISTRY METHOD 10/22/2024 11:07 AM [facility] CO2 30 21 - 32 mmol/L LAB CHEMISTRY METHOD 10/22/2024 11:07 AM [facility] Anion Gap 7 3 - 11 LAB CHEMISTRY METHOD 10/22/2024 11:07 AM [facility] Glucose 85 70 - 100 mg/dL LAB CHEMISTRY METHOD 10/22/2024 11:07 AM [facility] BUN 22 5 - 25 mg/dL LAB CHEMISTRY METHOD 10/22/2024 11:07 AM [facility] Creatinine 1.22(H) 0.50 - 1.10 mg/dL LAB CHEMISTRY METHOD 10/22/2024 11:07 AM [facility] eGFR 43(L) >=60 mL/min/1. 73m2 LAB CHEMISTRY METHOD 10/22/2024 11:07 AM [facility] Comment:Calculation based on the Chronic Kidney Disease Epidemiology Collaboration (CKD-EPI) equation refit without adjustment for race. BUN/Creatinine Ratio 18.0 LAB CHEMISTRY METHOD 10/22/2024 11:07 AM [facility] Calcium 9.9 8.5 - 10.5 mg/dL LAB CHEMISTRY METHOD 10/22/2024 11:07 AM [facility] Blood Venous blood specimen / Unknown Venipuncture / Unknown 10/22/2024 6:16 AM EDT 10/22/2024 9:34 AM EDT us Amrita Polanco MD LAB BLOOD ORDERABLES Final Resu lt Performing Organization Address City/[facility]/ZIP Co de Phone Number [facility] [address] [place] [address], [place] [phone] * (ABNORMAL) Prothrombin time with INR (10/22/2024 6:16 AM EDT) Pathologist [facility] Protime 36.0(H) 10.6 - 13.9 sec LAB COAGULATION METHOD 10/22/2024 10:31 AM EDT [facility] INR 2.9 LAB COAGULATION METHOD 10/22/2024 10:31 AM EDT [facility] Blood Venous blood specimen / Unknown Venipuncture / Unknown 10/22/2024 6:16 AM EDT 10/22/2024 9:34 AM EDT us Amrita Polanco MD LAB BLOOD ORDERABLES Final Resu lt Performing Organization Address [facility]/ZIP Co de Phone Number [facility] [address] [place] [address], [place] [phone] * (ABNORMAL) Complete blood count (10/22/2024 6:16 AM EDT) [facility] WBC 9.2 4.8 - 10.8 K/mcL LAB HEMETOLOGY METHOD 10/22/2024 10:30 AM EDT [facility] RBC 3.70(L) 3.80 - 4.80 M/mcL LAB HEMETOLOGY METHOD 10/22/2024 10:30 AM EDT [facility] Hemoglobin 11.4(L) 11.5 - 16.0 g/dL LAB HEMETOLOGY METHOD 10/22/2024 10:30 AM EDT [facility] Hematocrit 35.8 35.0 - 47.0 % LAB HEMETOLOGY METHOD 10/22/2024 10:30 AM EDT [facility] MCV 96.8 79.0 - 98.0 FL LAB HEMETOLOGY METHOD 10/22/2024 10:30 AM EDT [facility] MCH 30.8 27.0 - 32.0 pcg LAB HEMETOLOGY METHOD 10/22/2024 10:30 AM EDT [facility] MCHC 31.8(L) 32.0 - 37.0 g/dL LAB HEMETOLOGY METHOD 10/22/2024 10:30 AM EDT [facility] RDW 13.8 11.0 - 15.0 % LAB HEMETOLOGY METHOD 10/22/2024 10:30 AM EDT [facility] Platelets 328 130 - 400 K/mcL LAB HEMETOLOGY METHOD 10/22/2024 10:30 AM EDT [facility] MPV 10.9 7.0 - 11.0 FL LAB HEMETOLOGY METHOD 10/22/2024 10:30 AM EDT [facility] NRBC 0.0 <1.0 % LAB HEMETOLOGY METHOD 10/22/2024 10:30 AM EDT [facility] NRBC Absolute 0.00 <0.10 K/mcL LAB HEMETOLOGY METHOD 10/22/2024 10:30 AM T [facility] Blood Venous blood specimen / Unknown Venipuncture / Unknown 10/22/2024 6:16 AM EDT 10/22/2024 9:34 AM EDT us Amrita Polanco MD LAB BLOOD ORDERABLES Final Resu lt [facility] [address] [place] [address], documented in this encounter Visit Diagnoses Diagnosis Essential (primary) hypertension Unspecified essential hypertension Unspecified atrial fibrillation (CMS/HCC V24, CMS/HCC V28) Type 2 diabetes mellitus without complications ([facility]/HCC V24, CMS/[facility] V28) documented in this encounter Care Teams Underwriting Analyst Relationship Specialty Start Date End Date Valeri Lerner DO [address] [place], [place] PCP - General 11/15/14 documented as of this encounter
--- OUTSIDE RECORDS SUMMARY | 2025-07-18 14:42 | XMS_ITS | Encounter Summary ---
Author Organization [facility] Address [address] [place] [address] Care Team Providers Care Senior Software Systems Engineer Name Role Phone Valeri Lerner Primary Care Provider +1- [phone] Encounter Details Date Type Department Care Team (Late st Contact Info) Description 10/30/2024 Lab Requisition [facility] - Main Lab [address] [place] [address] Kymberly Horne MD [address] [phone] Type 2 diabetes mellitus without complications (CMS/HCC [...] LAB CHEMISTRY METHOD 10/30/2024 1:50 PM EDT [facility] Mean Bld Glu Estim. 166 mg/dL LAB CHEMISTRY METHOD 10/30/2024 1:50 PM EDT [facility] Blood Venous blood specimen / Unknown Venipuncture / Unknown 10/30/2024 7:51 AM EDT 10/30/2024 10:03 AM EDT us Kymberly Horne MD LAB BLOOD ORDERABLES Fin al Result [facility] ([facility] [address] [place] [address], documented in this encounter Visit Diagnoses Diagnosis Type 2 diabetes mellitus without complications (CMS/HCC V24, CMS/HCC V28) documented in this encounter Care Teams Senior Software Systems Engineer Relationship Specialty Start Date End Date Valeri Lerner DO [address] [place] [address] PCP - General 11/15/14 documented as of this encounter
--- OUTSIDE RECORDS SUMMARY | 2025-07-18 14:42 | XMS_ITS | Encounter Summary ---
Author Organization [employer] Address [address] [facility] 7t [place] [address] Care Team Providers Care Ward Aide Name Role Phone Valeri Lerner DO Primary Care Provider Batsheva Gomez PharmD Unavailable [phone] Reason for Visit * Reason Comments Med Refill Encounter Details Date Type Department Care Team (Late st Contact Info) Description 06/20/2023 Refill [facility] [address] [place], [place] [phone] Valeri Lerner DO [address] [place], [place] [phone] Generalized anxiety disorder Social History Tobacco Use [...] Description 08/05/2025 10:45 AM EST Office Visit [facility] [address] [place] [address] Ericka Sarmiento MD [address] [place] [address] documented as of this encounter Visit Diagnoses Diagnosis Generalized anxiety disorder documented in this encounter Care Teams Ward Aide Relationship Specialty Start Date End Date Valeri Lerner DO [address] [place] [address] PCP - General Family Medicine 07/13/12 Batsheva Gomez PharmD [address] [place] [address] Pharmacist Internal Medicine 03/07/24 12/19/24 [employer] 12/08/23 documented as of this encounter
--- OUTSIDE RECORDS SUMMARY | 2025-07-18 14:42 | XMS_ITS | Encounter Summary ---
Author Organization [employer] Address [address] [facility] 7t [place] [address] Care Team Providers Care Branch Service Leader Name Role Phone Valeri Lerner DO Primary Care Provider Batsheva Gomez PharmD Unavailable Reason for Visit * Reason Onset Date Comments Nurse Triage 03/25/2024 Encounter Details Date Type Department Care Team (Late st Contact Info) Description 03/25/2024 Telephone [facility] [address] [place], [place] [phone] Valeri Lerner DO [address] [place], [place] [phone] Nurse Triage Social History Tobacco Use Types [...] outcome Contact pt visiting nurse Artemio at [phone] documented in this encounter Plan of Treatment Upcoming Encounters Date Type Department Care Team (Late st Contact Info) Description 08/05/2025 10:45 AM EST Office Visit [facility] [address] [place] [address] Ericka Sarmiento MD [address] [place] [address] documented as of this encounter Goals Goal [...] documented as of this encounter Care Teams Branch Service Leader Relationship Specialty Start Date End Date Valeri Lerner DO [address] [place] [address] PCP - General Family Medicine 07/13/12 CharyiaBatsheva, PharmD [address] [place] [phone] Pharmacist Internal Medicine 03/07/24 12/19/24 [employer] 12/08/23 documented as of this encounter
--- OUTSIDE RECORDS SUMMARY | 2025-07-18 14:42 | XMS_ITS | Encounter Summary ---
Author Organization [facility] Address [address] [place] [address] Care Team Providers Care Prescriptionist Name Role Phone Valeri Lerner Primary Care Provider [phone] Encounter Details Date Type Department Care Team (Late st Contact Info) Description 11/04/2024 Lab Requisition [facility] - Main Lab [address] [place] [address] Amrita Polanco MD [address] [place] [id number] Unspecified atrial fibrillation (CMS/HCC V24, CMS/HCC V28) [...] sec LAB COAGULATION METHOD 11/04/2024 11:56 AM [facility] INR 1.4 LAB COAGULATION METHOD 11/04/2024 11:56 AM [facility] Blood Venous blood specimen / Unknown Venipuncture / Unknown 11/04/2024 8:39 AM EDT 11/04/2024 11:00 AM EDT us Amrita Polanco MD LAB BLOOD ORDERABLES Final Resu lt [facility] ([facility] [address] [place] [address], documented in this encounter Visit Diagnoses Diagnosis Unspecified atrial fibrillation (CMS/HCC V24, CMS/HCC V28) documented in this encounter Care Teams Prescriptionist Relationship Specialty Start Date End Date Valeri Lerner DO [address] [place] [address] PCP - General 11/15/14 documented as of this encounter
--- OUTSIDE RECORDS SUMMARY | 2025-07-18 14:42 | XMS_ITS | Encounter Summary ---
Author Organization [employer] Address [address] [facility] [address] [place] [address] Care Team Providers Care Retail District Manager Name Role Phone Valeri Lerner DO Primary Care Provider [phone] Reason for Visit * Reason Comments Transition Of Care (Tcm) HDF scheduled. Encounter Details Date Type Department Care Team (Late st Contact Info) Description 07/15/2025 Patient Outreach [facility] [address] [place] [address] Valeri Lerner DO [address] [facility] [place], [place] [phone] Transition Of Care (Tcm) (HDF scheduled. ) Social History Tobacco Use Types Packs/Day [...] Miscellaneous Notes * Significant Event - Tabitha Paulie - 07/15/2025 10:57 AM EST 07/15/25 1048 Hospital Discharges and Admission for [facility] Type of Visit Hospital Admission Date of Admission/Visit 07/01/25 Date of Discharge 07/16/25 Facility [facility] Diagnosis Congestive Heart Failure Disposition Discharged Home Follow-Up Actions Follow-Up Needed Provider appointment Follow-Up Outcome Booked Appointment;Spoke to Caregiver Initial Contact Date 07/15/25 Received incoming call from the [facility]. CM Spoke with Arleen from [facility]. Patient was admitted to this facility on 07/01/2025 for diagnosis of CHF. Patient will be discharged fromthe facility on 07/16/2025. Patient has been scheduled for an HDF appointment on 08/05/2024 at 10:AM with Dr. Sarmiento. DAVID requested discharge summaries to be faxed to the Care Management Department at [phone]. CC will follow up on discharge summary following patient's discharge. Insurance verified prior to scheduling. documented in this encounter Plan of Treatment Upcoming Encounters Date Type Department Care Team (Late st Contact Info) Description 08/05/2025 10:45 AM EST Office Visit [facility] [address] [place] [address] Ericka Sarmiento MD [address] [place], [place] [phone] documented as of this encounter Goals Goal [...] Plan Weekly blood pressure task No Colon Eddie Puja Patient has chronic kidney disease Care Plan Patient has chronic kidney disease No Colon Eddie, Puja Patient has chronic kidney disease Care Plan Patient has chronic kidney disease No uPja Taylor Weekly blood pressure task Care Plan [...] Weekly blood pressure task No Tabitha [place] Patient has chronic kidney disease Care Plan Patient has chronic kidney disease No Uma Apodacailet Patient has chronic kidney disease Care Plan Patient has chronic kidney disease No Tabitha Apodaca documented as of this encounter Visit Diagnoses [...] 07/15/2025 Patient has chronic kidney disease 07/15/2025 Assessment Noted Time PHQ-9 Depression Total Score: 0 07/15/20 11:32 AM EST documented as of this encounter Care Teams Retail District Manager Relationship Specialty Start Date End Date Valeri Lerner DO [address] [place] [address] PCP - General Family Medicine 07/13/12 [employer] 12/08/23 documented as of this encounter
--- OUTSIDE RECORDS SUMMARY | 2025-07-18 14:42 | XMS_ITS | Encounter Summary ---
Author Organization [employer] Address [address] [facility] [address] [place] [address] Care Team Providers Care Mold Bunch Trimmer Name Role Phone Valeri Lerner DO Primary Care Provider Batsheva Gomez PharmD Unavailable Reason for Visit * Reason Comments Med Refill Encounter Details Date Type Department Care Team (Late st Contact Info) Description 09/12/2023 Refill [facility] [address] [place], [place] [phone] Valeri Lerner DO [address] [place], [place] [phone] Generalized anxiety disorder Social History Tobacco Use [...] Description 08/05/2025 10:45 AM EST Office Visit [facility] [address] [place] [phone] Ericka Sarmiento MD [address] [place] [address] documented as of this encounter Visit Diagnoses Diagnosis Generalized anxiety disorder documented in this encounter Additional Health Concerns Assessment Noted Time PHQ-9 Depression Total Score: 2 08/23/19 24 11:01 AM EST documented as of this encounter Care Teams Mold Bunch Trimmer Relationship Specialty Start Date End Date Valeri Lerner DO [address] [place] [phone] PCP - General Family Medicine 07/13/12 Batsheva Gomez PharmD [address] [place] [phone] Pharmacist Internal Medicine 03/07/24 12/19/24 [employer] 12/08/23 documented as of this encounter
--- OUTSIDE RECORDS SUMMARY | 2025-07-18 14:42 | XMS_ITS | Encounter Summary ---
Author Organization [employer] Address [address] [facility] [address] [place] [address] Care Team Providers Care Stud Sheep Farmer Name Role Phone Valeri Lerner DO Primary Care Provider [phone] Encounter Details Date Type Department Care Team (Late st Contact Info) Description 12/24/2024 Telephone [facility] [address] [place], [place] [phone] Valeri Lerner DO [address] [place], [place] [phone] Social History Tobacco Use Types Packs/Day Years [...] Description 08/05/2025 10:45 AM EST Office Visit [facility] [address] [place] [address] Ericka Sarmiento MD [address] [place] [address] documented as of this encounter Goals Goal [...] documented as of this encounter Care Teams Stud Sheep Farmer Relationship Specialty Start Date End Date Valeri Lerner DO [address] [place] [address] PCP - General Family Medicine 07/13/12 [email or web address] 12/08/23 documented as of this encounter
--- OUTSIDE RECORDS SUMMARY | 2025-07-18 14:42 | XMS_ITS | Encounter Summary ---
Author Organization [employer] Address [address] [facility] [address] [place] [address] Care Team Providers Care Fork Lift Truck Operator Name Role Phone Valeri Lerner DO Primary Care Provider [phone] Batsheva Gomez PharmD Unavailable [phone] Encounter Details Date Type Department Care Team (Late st Contact Info) Description 09/29/2022 Abstract [facility] [address] [place] [address] Sebastian Fierro DDS [address] [place], [place] [phone] Social History Tobacco Use Types Packs/Day Years [...] Description 08/05/2025 10:45 AM EST Office Visit [facility] [address] [place] [address] Ericka Sarmiento MD [address] [place], [place] [phone] documented as of this encounter Visit Diagnoses Not on filedocumented in this encounter Care Teams Fork Lift Truck Operator Relationship Specialty Start Date End Date Valeri Lerner DO [address] [place], [place] [phone] PCP - General Family Medicine 07/13/12 Batsheva Gomez PharmD [address] [place], [place] [phone] Pharmacist Internal Medicine 03/07/24 12/19/24 [employer] 12/08/23 documented as of this encounter
--- OUTSIDE RECORDS SUMMARY | 2025-07-18 14:42 | XMS_ITS ---
Author Name Yelena Barillas NP Address [address] [place] [address] Phone [phone] [facility] Care Team Providers Care Neighborhood Conservation Officer Name Role Phone Eran Yelena Unavailable [phone] CATALINA BAGLEY Unavailable [phone] Samantha Baker Unavailable [phone] [facility] Unavailable Reason for Referral Not Available Allergies, [...] 2024-03-29 No Data Available Comfort EZ Pen [place] 32 gauge x 5/32 USE DIRECTED WITH [...] Date Synopsis Atherosclerosis of coronary artery of [place] heart Active 2022-08-30 N/A cont lasix stati [...] feeling wellReport consistent blood pressures readings >140/90/06/24: INDUSTRIAL METHODS CONSULTANT reports that in the last couple of days the patient's toes have been pink and sensitive to touch, denies uncontrolled pain to touch. She has an appointment with the rolling machine operator automatic on monday for further evaluation.01/28/25: Patient denies BLE edema or dyspnea, denies any acute concerns. COPD (chronic obstructive pulmonary disease) Active 2022-08-15 N/A advjhoana hayes casonefu w pulmonaryon Room Air -Stable-continue to f/u with PCP/specialists-continue rx'd medications-report changes in chronic condition Incontinence; Mixed stress and urge urinary incontinence Active 2024-11-22 N/A Incontinence sup plies ordered on 11/22-continue f/u with urology [facility] Unsteady gait Active 2024-12-10 N/A INDUSTRIAL METHODS CONSULTANT reports that the patient has unsteady gait [...] N/A -Patient has gurwinder ly [facility] and INDUSTRIAL METHODS CONSULTANT services. She lives alone in a third floor apartment with close family support from daughter. Daughter requesting increase in INDUSTRIAL METHODS CONSULTANT hoursPCA- Sully -Advised to reach out to [facility] cc [place] currently approximate [...] NoDo you have a Durable Power of Financial Services Associate for Healthcare, or Healthcare Proxy Or Guardianship? 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 [...] (do not use for phone, instead use 34450-57) [facility] [place] Paroxysmal atrial fibrillationChronic obstructive pulmonary disease, unspecifiedAthscl heart disease of [place] coronary artery w/o ang pctrsType 2 diabetes [...] (do not use for phone, instead use 60979-21) [facility] [place] New patient,40-59min ; chronic exacerbation, 2 stable chronic or 1 acute illness add add modifier 95 for video (do not use for phone, instead use 00521-53) [facility] [place] New patient,40-59min ; chronic exacerbation, 2 stable chronic or 1 acute illness add add modifier 95 for video (do not use for phone, instead use 54830-39) [facility] [place] New patient,40-59min ; chronic exacerbation, 2 stable chronic or 1 acute illness add add modifier 95 for video (do not use for phone, instead use 25569-95) [facility] [place] New patient,40-59min ; chronic exacerbation, 2 stable chronic or 1 acute illness add add modifier 95 for video (do not use for phone, instead use 41120-60) [facility] [place] New patient,40-59min ; chronic exacerbation, 2 stable chronic or 1 acute illness add add modifier 95 for video (do not use for phone, instead use 13160-82) [facility] New patient,40-59min ; chronic exacerbation, 2 stable chronic or 1 acute illness add add modifier 95 for video (do not use for phone, instead use 75130-28) [facility] [place] Estab. patient 20-29min; 1 stable chronic or 2 minor; add add modifier 95 for video, modifier 93 for phone [facility] [place] 10[place]03/2022 Pneumonia, unspecified organismSepsis, unspecified organism Estab. patient 20-29min; 1 stable chronic or 2 minor; add add modifier 95 for video, modifier 93 for phone [facility] [place] 10[place] Estab. patient 20-29min; 1 stable chronic or 2 minor; add add modifier 95 for video, modifier 93 for phone [facility] [place] 10[place]03/2022 Estab. patient 20-29min; 1 stable chronic or 2 minor; add add modifier 95 for video, modifier 93 for phone [facility] [place] 10/03/2022 Estab. patient 20-29min; 1 stable chronic or 2 minor; add add modifier 95 for video, modifier 93 for phone [facility] [place] 10/03/2022 Estab. patient 20-29min; 1 stable chronic or 2 minor; add add modifier 95 for video, modifier 93 for phone [facility] [place] 10[place] Estab. patient 30-39min; chronic exacerbation, 2 stable chronic or 1 acute illness add add modifier 95 for video, (do not use for phone, instead use 85811-15) [facility] [place]24 Paroxysmal atrial fibrillati onOther thrombophiliaHypertensive heart disease with heart failureMorbid (severe) obesity due to excess caloriesSecondary hyperaldosteronismChronic obstructive pulmonary disease, unspecifiedHeart failure, unspecifiedMajor depressive disorder, single episode, in partial remissionType 2 diabetes mellitus with other specified complicationHypothyroidism, unspecifiedHyperlipidemia, unspecifiedAthscl heart disease of [place] coronary artery w/o ang pctrsAnemia in other chronic diseases classified elsewhereGeneralized anxiety disorderBody mass index (BMI) 40.0-44.9, adultPrsnl hx of TIA (TIA), and cereb infrc w/o resid deficitsOther problems related to medical facilities and other health care Estab. patient 30-39min; chronic exacerbation, 2 stable chronic or 1 acute illness add add modifier 95 for video, (do not use for phone, instead use 91546-20) [facility] Estab. patient 30-39min; chronic exacerbation, 2 stable chronic or 1 acute illness add add modifier 95 for video, (do not use for phone, instead use 18059-84) [facility] Estab. patient 30-39min; chronic exacerbation, 2 stable chronic or 1 acute illness add add modifier 95 for video, (do not use for phone, instead use 77940-77) [facility] Estab. patient 30-39min; chronic exacerbation, 2 stable chronic or 1 acute illness add add modifier 95 for video, (do not use for phone, instead use 81750-00) [facility] Estab. patient 30-39min; chronic exacerbation, 2 stable chronic or 1 acute illness add add modifier 95 for video, (do not use for phone, instead use 43177-50) [facility] Estab. patient 30-39min; chronic exacerbation, 2 stable chronic or 1 acute illness add add modifier 95 for video, (do not use for phone, instead use 46787-06) [facility] Estab. patient 30-39min; chronic exacerbation, 2 stable chronic or 1 acute illness add add modifier 95 for video, (do not use for phone, instead use 94023-54) [facility] Estab. patient 30-39min; chronic exacerbation, 2 stable chronic or 1 acute illness add add modifier 95 for video, (do not use for phone, instead use 91067-96) [facility] Estab. patient 30-39min; chronic exacerbation, 2 stable chronic or 1 acute illness add add modifier 95 for video, (do not use for phone, instead use 62404-41) [facility] 05[place] Estab. patient 30-39min; chronic exacerbation, 2 stable chronic or 1 acute illness add add modifier 95 for video, (do not use for phone, instead use 95243-75) [facility] [place] Estab. patient 10-29min; 1 minor problem; add add modifier 95 for video, modifier 93 for phone [facility] [place] 09[place]10/2024 Heart failure, unspecifiedSe condary hyperaldosteronismOther problems related to medical facilities and other health care Estab. patient 10-29min; 1 minor problem; add add modifier 95 for video, modifier 93 for phone [facility] 10[place]10[place]2024 Chronic obstructive pulmonar y disease, unspecifiedHypertensive heart disease with heart failureHeart failure, unspecified Estab. patient 10-29min; 1 minor problem; add add modifier 95 for video, modifier 93 for phone [facility] [place] 11[place]07/2024 Acute respiratory failure wi th hypoxiaChronic obstructive pulmonary disease, unspecifiedPneumonia, unspecified organismUnspecified urinary incontinenceOther problems related to medical facilities and other health care Estab. patient 10-29min; 1 minor problem; add add modifier 95 for video, modifier 93 for phone [facility] [place]/07/[place] Estab. patient 10-29min; 1 minor problem; add add modifier 95 for video, modifier 93 for phone [facility] [place] 11/07/[place] Estab. patient 10-29min; 1 minor problem; add add modifier 95 for video, modifier 93 for phone [facility] [place]/07/20[place] Estab. patient 10-29min; 1 minor problem; add add modifier 95 for video, modifier 93 for phone [facility] [place] 12[place]2024 Acute respiratory failure wi th hypoxiaPneumonia, unspecified organismUnsteadiness on feetOther problems related to medical facilities and other health care Estab. patient 10-29min; 1 minor problem; add add modifier 95 for video, modifier 93 for phone [facility] [place] 01/[place]/2025 Heart failure, unspecifiedSe condary hyperaldosteronismChronic obstructive pulmonary disease, unspecified RN, CN or CP time with patient by phone; use with 1111F, BP, A1c or other CPTII codes [facility] [place] 02/18/[place]25 Encounter for other specifie d aftercare RN, CN or CP time with patient by phone; use with 1111F, BP, A1c or other CPTII codes [facility] [place] 02/18/2025 Estab. patient 10-29min; 1 minor problem; add add modifier 95 for video, modifier 93 for phone [facility] [place] 02/27/2025 Urinary tract infection, sit e not specifiedOther problems related to medical facilities and other health care Estab. patient 10-29min; 1 minor problem; add add modifier 95 for video, modifier 93 for phone [facility] [place] 02/27/2025 Estab. patient 10-29min; 1 minor problem; add add modifier 95 for video, modifier 93 for phone [facility] [place] 02/27/2025 Estab. patient 10-29min; 1 minor problem; add add modifier 95 for video, modifier 93 for phone [facility] [place] 02/27/2025 Estab. patient 10-29min; 1 minor problem; add add modifier 95 for video, modifier 93 for phone [facility] [place] 04/02/2025 Polyosteoarthritis, unspecifiedParoxysmal atrial fibrillationOther thrombophiliaChronic obstructive pulmonary disease, unspecifiedAthscl heart disease of [place] coronary artery w/o ang pctrsType 2 diabetes [...] Time Current Smoking Status Former smoker 2025-06-30 9 Sex Female Gender identity Woman History of Procedures Procedures Service Procedure code Service date Servicing provider Phone# New patient,40-59min; chronic exacerbation, 2 stable chronic or 1 acute illness add add modifier 95 for video (do not use for phone, instead use 27770-25) [id number] 2022-08-25 No Data Available No Data Availa [...] 95 for video, modifier 93 for phone [id number] 2022-10-03 No Data Available No Data Availa [...] (do not use for phone, instead use 59293-43) 68193 2024-05-28 No Data Available No Data Availa [...] 95 for video, modifier 93 for phone [id number] 2024-09-10 No Data Available No Data Availa ble Estab. patient 10-29min; 1 minor problem; add add modifier 95 for video, modifier 93 for phone 94652 2024-10-10 No Data Available No Data Availa [...] 95 for video, modifier 93 for phone [id number] 2024-12-10 No Data Available No Data Availa ble Estab. patient 10-29min; 1 minor problem; add add modifier 95 for video, modifier 93 for phone [id number] 2025-01-28 No Data Available No Data Availa ble RN, CN or CP time with patient by phone; use with 1111F, BP, A1c or other CPTII codes 22921 2025-02-18 No Data Available No Data Avai [...] 95 for video, modifier 93 for phone [id number] 2025-04-02 No Data Available No Data Availa [...] obstructive pulmonary disease)Atherosclerosis of coronary artery of [place] heartType 2 diabetes mellitus with hyperlipidemiaMajor depressive disorder in partial remissionHypothyroidismMorbid obesity due to excess caloriesHistory of CVA (cerebrovascular accident)Anemia in chronic illness 2022-10-03 07:05:20 Patient Education to avoid future hospitalization: Call [facility] if symptoms of illness develop.Sepsis due to pneumonia 2024-05-28 07:45:46 paroxysmal atrial fi brillation and Hypercoagulability due to atrial fibrillationCOPD (chronic obstructive pulmonary disease)Atherosclerosis of coronary artery of [place] heartType 2 diabetes mellitus with hyperlipidemiaMajor depressive [...] obstructive pulmonary disease)Atherosclerosis of coronary artery of [place] heartType 2 diabetes mellitus with hyperlipidemia; Type [...] lantus, metformin, trulicty a1c 7.7, [facility] and mtr lipids fu w endocrinecont on sertralinept denies symptoms currentlycont [facility] clonazepam for anxiety/insomnialevothyroxinefu w endomtr [...] may arise 20/02.HEART FAILURE CONTINGENCY PLANLast updated: 05/29/2024[facility] to call for the following symptoms: BP [...] feeling wellReport consistent blood pressures readings >140/902/06/24: INDUSTRIAL METHODS CONSULTANT reports that in the last couple of days the patient's toes have been pink and sensitive to touch, denies uncontrolled pain to touch. She has an appointment with the rolling machine operator automatic on monday for further evaluation. 2024-10-10 06:15:41 Estab. patient 10-29 min; 1 minor problem; add add modifier 95 for video, modifier 93 for phoneContinue to see PCP. [facility] or disease education needs that may arise 20/02.advair, fluticasonefu w pulmonary3: Patient denies dyspnea or any other concerns.Encourage low sodium diet. Encouraged daily blood pressure checks and tracking. Instructed patient to notify CB or PCP if blood pressure >140/90 or <90/50.HEART FAILURE CONTINGENCY PLANLast updated: 05/29/2024[facility] to call for the following symptoms: BP [...] the patient is home with family and INDUSTRIAL METHODS CONSULTANT/[facility] care. The patient is currently has a soft diet and increase weakness post hospitalization. Medication reconciled with hospital records, unable to confirm with VNAHEART FAILURE CONTINGENCY PLANLast updated: 05/29/2024[facility] to call for the following symptoms: BP <100/60 / BP >180/100 / Edema/ Exertional dyspnea/ Weight gain or lossPlanned intervention: Increase furosemide (Lasix) to 60 mg for 3 days/ Wrap legs with Mohan wrap/ Put on compression stockings/ Eat lower sodium foods/ Take medication every single dayCOPD CONTINGENCY PLANLast updated: 11/22/2024[facility] to call for the following symptoms: Exertional [...] or disease education needs that may arise 20/02.INDUSTRIAL METHODS CONSULTANT reports that the patient has unsteady gait with walking, requires assistance during ambulation. Hx of falls.11/07/24: Hospitalization 10/21-10/21 for acute hypoxic respiratory failure secondary to pneumonia. Patient presented to cough and shortness of breath. The patient was discharged to a STR. In addition, the patient had ER visit 11/05 for aspiration pneumonia. At this time, the patient is home with family and INDUSTRIAL METHODS CONSULTANT/[facility]NA care. The patient is currently has a soft diet and increase weakness post hospitalization. Medication reconciled with hospital records, unable to confirm with VNA12/10/24: Cg reports that the patient does not have any acute symptoms, she is 'stable'. She is aware that the patient will continue to steadily decline.HEART FAILURE CONTINGENCY PLANLast updated: 05/29/2024[facility] to call for the following symptoms: BP <100/60 / BP >180/100 / Edema/ Exertional dyspnea/ Weight gain or lossPlanned intervention: Increase furosemide (Lasix) to 60 mg for 3 days/ Wrap legs with Mohan wrap/ Put on compression stockings/ Eat lower sodium foods/ Take medication every single dayCOPD CONTINGENCY PLANLast updated: 11/22/2024[facility] to call for the following symptoms: Exertional dyspnea/ Increased cough / WheezingPlanned intervention: Levofloxacin 500mg daily x 5 daysFALL CONTINGENCY PLANMember to call for the following symptoms: Fall / Pre-syncope/ Refusing to use cane / WeaknessPlanned intervention: Order x-ray at [facility] or local hospital Assess for [...] feeling wellReport consistent blood pressures readings >140/902/06/24: INDUSTRIAL METHODS CONSULTANT reports that in the last couple of days the patient's toes have been pink and sensitive to touch, denies uncontrolled pain to touch. She has an appointment with the rolling machine operator automatic on monday for further evaluation.01/28/25: Patient denies BLE edema or dyspnea, denies any acute concerns.advair, fluticasonefu w pulmonary01/28/25: Patient denies dyspnea or any other concerns.HEART FAILURE CONTINGENCY PLANLast updated: 05/29/2024[facility] to call for the following symptoms: BP <100/60 / BP >180/100 / Edema/ Exertional dyspnea/ Weight gain or lossPlanned intervention: Increase furosemide (Lasix) to 60 mg for 3 days/ Wrap legs with Mohan wrap/ Put on compression stockings/ Eat lower sodium foods/ Take medication every single dayCOPD CONTINGENCY PLANLast updated: 11/22/2024[facility] to call for the following symptoms: Exertional dyspnea/ Increased cough / WheezingPlanned intervention: Levofloxacin 500mg daily x 5 daysFALL CONTINGENCY PLANMember to call for the following symptoms: Fall / Pre-syncope/ Refusing to use cane / WeaknessPlanned intervention: Order x-ray at [facility] or local hospital Assess for [...] for phoneContinue to see PCP. Follow-up with [facility] as needed for any acute or disease education needs that may arise.02/15-02/17 hospitalization due to a fall. Dx with a urinary tract infection and treated with an antibiotic. Cg denies any current symptoms or concerns.UTI CONTINGENCY PLANLast updated: 02/27/2025[facility] to call for the following symptoms: Dysuria/ [...] cane / WeaknessPlanned intervention: Order x-ray at [facility] or local hospital Assess for [...] with PCP/specialists-continue rx'd medications-report changes in chronic qgkgeupnivqcsvydoc-Ycrydt-zuutnbnc to f/u with PCP/specialists-continue rx'd medications-report changes [...] feeling wellReport consistent blood pressures readings >140/902/06/24: INDUSTRIAL METHODS CONSULTANT reports that in the last couple of days the patient's toes have been pink and sensitive to touch, denies uncontrolled pain to touch. She has an appointment with the rolling machine operator automatic on monday for further evaluation.01/28/25: Patient denies [...] supplies ordered on 11/22-[facility] that the patient has unsteady gait with walking, requires assistance during ambulation. Hx of falls.-Patient has daily VNA and INDUSTRIAL METHODS CONSULTANT services. She lives alone in a third floor apartment with close family support from daughter. Daughter requesting increase in INDUSTRIAL METHODS CONSULTANT hoursPCAJigna Virk -Advised to reach out to [facility] cc [place] currently approximate [...] NoDo you have a Durable Power of Financial Services Associate for Healthcare, or Healthcare Proxy Or Guardianship? [...] discussion: (Who was present, : member and LMN-Thiqie-ncrshiix to f/u with PCP/specialists-continue rx'd medications-report changes [...] NoDo you have a Durable Power of Financial Services Associate for Healthcare, or Healthcare Proxy Or Guardianship? [...] discussion: (Who was present, : member and INDUSTRIAL METHODS CONSULTANT 2025-04-02 Functional Assessmen tCognition Status: Oriented to [...]
--- OUTSIDE RECORDS SUMMARY | 2025-07-18 14:42 | XMS_ITS | Encounter Summary ---
Author Organization [employer] Address [address] [facility] [address] [place] [address] Care Team Providers Care Processor Inspector Name Role Phone Valeri Lerner DO Primary Care Provider Batsheva Gomez PharmD Unavailable [phone] Reason for Visit * Reason Comments Med Refill Encounter Details Date Type Department Care Team (Late st Contact Info) Description 06/20/2023 Refill [facility] [address] [place], [place] [phone] Valeri Lerner DO [address], [place] [phone] Social History Tobacco Use Types Packs/Day Years [...] Description 08/05/2025 10:45 AM EST Office Visit [facility] [address] [place] [id number] Ericka Sarmiento MD [address] [place] [phone] documented as of this encounter Visit Diagnoses Not on filedocumented in this encounter Care Teams Processor Inspector Relationship Specialty Start Date End Date Valeri Lerner DO [address] [place] [id number] PCP - General Family Medicine 07/13/12 Batsheva Gomez PharmD [address] [place] [phone] Pharmacist Internal Medicine 03/07/24 12/19/24 [facility] 12/08/23 documented as of this encounter
--- OUTSIDE RECORDS SUMMARY | 2025-07-18 14:42 | XMS_ITS | Encounter Summary ---
Author Organization [employer] Address [address] [facility] [address] [place] [address] Care Team Providers Care Alteration Manager Name Role Phone Valeri Lerner DO Primary Care Provider [phone] Reason for Visit * Reason Onset Date Comments Hospital Follow-up 06/13/2025 Encounter Details Date Type Department Care Team (Late st Contact Info) Description 06/13/2025 Telephone [facility] [address] [place], [place] [phone] Valeri Lerner DO [address] [place], [place] [phone] Hospital Follow-up Social History Tobacco Use Types [...] from pt requesting a HDF appt. Hospital: [facility] Date of admission: apr on date Discharge date: 06/12/25 Diagnosed: leg swelling Please contact daughter at [phone]. documented in this encounter Plan of Treatment Upcoming Encounters Date Type Department Care Team (Late st Contact Info) Description 08/05/2025 10:45 AM EST Office Visit [facility] [address] [place], [place] [phone] Ericka Sarmiento MD [address] [place] [address] documented as of this encounter Goals Goal [...] documented as of this encounter Care Teams Alteration Manager Relationship Specialty Start Date End Date Valeri Lerner DO [address] [place] [id number] PCP - General Family Medicine 07/13/12 [employer] 12/08/23 documented as of this encounter
--- OUTSIDE RECORDS SUMMARY | 2025-07-18 14:42 | XMS_ITS | Patient Health Record ---
Author Organization [employer] Address [address] [place] [address] Care Team Providers Care Recoater Name Role Phone Tyler Garsia Unavailable [phone] Reason For Referral No Information Plan Of Treatment No Information
--- OUTSIDE RECORDS SUMMARY | 2025-07-18 14:42 | XMS_ITS | Encounter Summary ---
Author Organization [employer] Address [address] [facility] 7[address] [place] [address] Care Team Providers Care Admin Asst Name Role Phone Valeri Lerner DO Primary Care Provider [phone] Reason for Visit * Reason Comments Med Refill Encounter Details Date Type Department Care Team (Late st Contact Info) Description 04/24/2025 Refill [facility] MEDICINE [address] [place], [place] [phone] Valeri Lerner DO [address] [place], [place] [phone] Social History Tobacco Use Types Packs/Day Years [...] 08/05/2025 10:45 AM EST Office Visit [facility] MEDICINE [address] [place] [address] Ericka Sarmiento MD [address] [place] [address] documented as of this encounter Goals Goal [...] documented as of this encounter Care Teams Admin Asst Relationship Specialty Start Date End Date Valeri Lerner DO [address] [place] [address] PCP - General Family Medicine 07/13/12 [employer] 12/08/23 documented as of this encounter
--- OUTSIDE RECORDS SUMMARY | 2025-07-18 14:42 | XMS_ITS | Clinical Summary ---
Author Organization [facility] Address [address] [place] [phone] Phone Care Team Providers Care Linen Aide Name Role Phone Unavailable Primary Care Provider [...] It is not the complete legal health record.[facility]
--- OUTSIDE RECORDS SUMMARY | 2025-07-18 14:42 | XMS_ITS | Encounter Summary ---
Author Organization [employer] Address [address] [facility] 7[address] [place] [address] Care Team Providers Care Wrinkle Chaser Name Role Phone Valeri Lerner DO Primary Care Provider Batsheva Gomez PharmD Unavailable Reason for Visit * Reason Onset Date Comments Nurse Triage 01/18/2024 Encounter Details Date Type Department Care Team (Late st Contact Info) Description 01/18/2024 Telephone [facility] MEDICINE [address] [place], [place] [phone] Valeri Lerner DO [address] [place], [place] [phone] Nurse Triage Social History Tobacco Use Types [...] Artemio with [facility] on any medication changes [phone]. Daughter made aware of home care recommendations, [...] accepted this outcome Please contact pt at [phone] documented in this encounter Plan of Treatment Upcoming Encounters Date Type Department Care Team (Late st Contact Info) Description 08/05/2025 10:45 AM EST Office Visit [facility] MEDICINE [address] [place] [address] Ericka Sarmiento MD [address] [place] [address] documented as of this encounter Visit Diagnoses Not on filedocumented in this encounter Additional Health Concerns Assessment Noted Time PHQ-9 Depression Total Score: 2 08/23/19 24 11:01 AM EST documented as of this encounter Care Teams Wrinkle Chaser Relationship Specialty Start Date End Date Valeri Lerner DO [address] [place] [address] PCP - General Family Medicine 07/13/12 Batsheva Gomez PharmD [address] [place] [address] Pharmacist Internal Medicine 03/07/24 12/19/24 [employer] 12/08/23 documented as of this encounter
--- OUTSIDE RECORDS SUMMARY | 2025-07-18 14:42 | XMS_ITS | Encounter Summary ---
Author Organization [employer] Address [address] [facility] 7[address] [place] [address] Care Team Providers Care Payment Analyst Name Role Phone Valeri Lerner DO Primary Care Provider Batsheva Gomez PharmD Unavailable Reason for Visit * Reason Onset Date Comments FYI 10/08/2024 Encounter Details Date Type Department Care Team (Late st Contact Info) Description 10/08/2024 Telephone [facility] MEDICINE [address] [place], [place] [phone] Valeri Lerner DO [address] [place], [place] [phone] Social History Tobacco Use Types Packs/Day Years [...] 10/08/2024 1:17 PM EDT Tc from Artemio () informing pt iron level 3.0. Artemio will like a callback TODAY from nurse [phone] documented in this encounter Plan of Treatment Upcoming Encounters Date Type Department Care Team (Late st Contact Info) Description 08/05/2025 10:45 AM EST Office Visit [facility] MEDICINE [address] [place] [address] Ericka Sarmiento MD [address] [place] [address] documented as of this encounter Goals Goal [...] 1:53 PM EDT) No Batsheva Gomez, Frankie documented as of this encounter Visit Diagnoses Not on filedocumented in this encounter Additional Health Concerns Assessment Noted Time PHQ-9 Depression Total Score: 0 07/15/20 24 11:32 AM EST documented as of this encounter Care Teams Payment Analyst Relationship Specialty Start Date End Date Valeri Lerner DO [address] [place] [address] PCP - General Family Medicine 07/13/12 Batsheva Gomez, Frankie [address] [place] [address] Pharmacist Internal Medicine 03/07/24 12/19/24 [employer] 12/08/23 documented as of this encounter
--- OUTSIDE RECORDS SUMMARY | 2025-07-18 14:43 | XMS_ITS | Encounter Summary ---
Author Organization [employer] Address [address] [facility] [address] [place] [address] Care Team Providers Care Bicycle Fitter Name Role Phone Valeri Lerner DO Primary Care Provider [employer] PharmD Unavailable Reason for Visit * Reason Comments Med Refill Encounter Details Date Type Department Care Team (Late st Contact Info) Description 08/28/2022 Refill [facility] MEDICINE [address] [place], [place] [phone] Valeri Lerner DO [address] [place], [place] [phone] Chronic constipation (Primary Dx) Social History Tobacco [...] Description 08/05/2025 10:45 AM EST Office Visit [facility] MEDICINE [address] [place] [address] Ericka Sarmiento MD [address] [place] [address] documented as of this encounter Visit Diagnoses Diagnosis Chronic constipation- Primary Unspecified constipation documented in this encounter Care Teams Bicycle Fitter Relationship Specialty Start Date End Date Valeri Lerner DO [address] [place] [phone] PCP - General Family Medicine 07/13/12 Batsheva Gomez PharmD [address] [place] [phone] Pharmacist Internal Medicine 03/07/24 12/19/24 Zach[employer] Pre[employer] 12/08/23 documented as of this encounter
--- OUTSIDE RECORDS SUMMARY | 2025-07-18 14:43 | XMS_ITS | Encounter Summary ---
Author Organization [employer] Address [address] [place] [address] Care Team Providers Care Grain Broker And Market Operator Name Role Phone Valeri Lerner DO Primary Care Provider [phone]- [phone] Reason for Visit * Reason Onset Date Comments INR care coordination-[facility] 07/02 Encounter Details Date Type Department Care Team (Late st Contact Info) Description 07/02/2025 Refill [facility] MEDICINE [address] [place], [place] [phone] Valeri Lerner DO [address] [place], [place] [phone] Paroxysmal atrial fibrillation (CMS/HCC) (HCC) Social History [...] t he electric, gas, oil or water [employer] threatened to shut off services in your [...] encounter Miscellaneous Notes * Telephone Encounter - Cassy Rollins RN - 07/17/2025 2:14 PM EST RN received a call from [facility] pharmacy who reports the daughter demanded they call the SNF to requestmedication list be faxed to [facility]. [facility] pharmacy called SNF however they were transferred to . [facility] pharmacy reports they informed the daughter and advised the daughter to go to the SNF to obtain medication list and return to [facility] pharmacy with ALL medications and medlist. [facility] pharmacy informed daughter, they will update medboxes SAME DAY, daughter inquired on how long it would take however pharmacyinformed daughter they are unsure without knowing how many changes there are. Daughter was upset and left [facility] pharmacy. Daughter to f/u PRN. * Telephone Encounter - Cassy Rollins RN - 07/17/2025 2:03 PM EST Incoming call from [facility] pharmacy who reports patients daughter and MASTER COSMETOLOGIST are currently in the pharmacyinquiring on how to administer the warfarin medication to the patient. RN explained daughter and MASTER COSMETOLOGIST were just on the red team and RN had very lengthy conversation regarding the medication and POC: Give coumadin 5mg (from SNF) tomorrow 07/17 Give coumadin 5mg (from SNF) Wednesday 07/18 Give coumadin 5mg (from PCP prescription) Thursday 07/19 Give coumadin 5mg (from PCP prescription) Friday 07/20 Bring patient to [facility] lab on Saturday 07/21 RN will call daughter Monday PM if patient completes BW on Monday AM with new coumadin dosing. If patient goes to the lab on Monday PM, RN will contact patient on Monday with new coumadin dosing. Daughter advised if she does NOT receive a call on Monday by 4:30PM to administer coumadin 5mg to patient. [facility] pharmacy verbalized understanding and reports they will re-iterate the directions/POC. * Telephone Encounter - Cassy Rollins RN - 07/17/2025 1:34 PM EST Patients daughter and MASTER COSMETOLOGIST Sully presented to red team with multiple bags of medications. Daughter inquiring on which medication is warfarin. RN was able to locate warfarin medication card from [facility] which still had 2 pills remaining (as expected). Daughter reports she already received it today . RN advised the patient could not have received this medication today as she still has 2 pills which is what she was discharged with from the [facility] yesterday. Daughter then reported I don't know Danny gave her the medications this morning. She got one of every pill this morning . RN notes medication cards from [facility] all had directions on them however some state take in the evening , take twice daily , hold of SBP <90 , etc. RN advised medication directions need to be followed for patient safety and to prevent possible adverse effects. Daughter reports I don't know, I don't do the medications. I have a lot going on and also have a job . Daughter then provided RN with humalog vial which was in a plastic ziploc bag and had directions stating Inject subcutaneously 4 times a day per sliding scale , daughter inquired how much to give the patient. RN inquired if humalog has been in the refrigerator however daughter reports it was not as she was not informed. RN explained to daughter thatthis RN is not sure how much insulin the patient should be receiving as we do not have the discharge summary yet with the medication list from the SNF. RN asked daughter for medication list and RN was provided with admission paperwork. RN informed daughter this is not the medication list and she needs to return to the SNF to obtain medication list as family/MASTER COSMETOLOGIST cannot administer medications correctly/safety without a medlist. Daughter advised to go to the SNF in person and request a copy of themedication list [place] and if needed to ask for a supervisor plastics. RN re-iterated that medications the patient was on prior to hospitalization/SNF may not be current anymore and they should only administer medications on SNF medlist. Daughter reports she will go to the SNF to obtain medication list. RN re-iterated to daughter and MASTER COSMETOLOGIST plan regarding warfarin medication and INR POC: Give coumadin 5mg (from SNF) tomorrow 07/17 Give coumadin 5mg (from SNF) Wednesday 07/18 Give coumadin 5mg (from PCP prescription) Thursday 07/19 Give coumadin 5mg (from PCP prescription) Friday 07/20 Bring patient to [facility] lab on Saturday 07/21 RN will call daughter Monday PM if patient completes BW on Monday AM with new coumadin dosing. If patient goes to the lab on Monday PM, RN will contact patient on Monday with new coumadin dosing. Daughter advised if she does NOT receive a call on Monday by 4:30PM to administer coumadin 5mg to patient. RN also re-addressed the possibility of patient needing 24/7 care as the family is very overwhelmedand patient is home alone at times when daughter is at work and MASTER COSMETOLOGIST's are not on shift. Daughter reports the MASTER COSMETOLOGIST here today is Sully Lomeli and her phone number is [phone]. Daughter reports the patient does not want to be in a facility for 24/7 care, RN discussed the possible dangers of her being home given the difficulty in taking care of her at home safely. Daughter advised if she were to fall at home while alone and crack her head open there's a strong possibility that she may bleed out. RN expressed the recommendation is not out of insult to daughter or family that they are notable to provide for the patient however about patient safety. Daughter advised the burden the family is experiencing will only increase as patient continues to decline and experience multiple ED visits/SNF admissions. Daughter advised [facility] may also not be able to see the patient daily and family will need to administer medications. Daughter reports her brother has diabetes and can give her the in sulin . Daughter does not appear ready to further discuss 20/02 care for the patient at a facility. Daughter reports you can make me a letter stating she needs to live next to me that way I can take care of her better . Daughter advised letter requests need to be processed in MR however I cannot guarantee this is a letter that we will be able to generate as the patient would still be alone while daughter is at work and MASTER COSMETOLOGIST's are not around which does not change the current situation. Daughter wants patient to receive more MASTER COSMETOLOGIST hours to prevent the patient from being alone. Daughter advised sheshould contact [facility] to request an increase in hours and they will complete an evaluation howeverRN cannot guarantee they will increase hours d/t family not wanting patient to be alone. Daughter informed rosalie determines hours based on patients needs. Daughter reports the patient was evaluatedin April and lost an hour of service. Daughter advised since then the patient has been admitted to the hospital and SNF's and they should be able to re-evaluate the patient. Daughter reports she will call [facility] today. Daughter advised to go to [facility], obtain medication list and return to [facility] pharmacy with ALL of the patients medications and medboxes and they will adjust them as needed (RN confirmed with [facility] pharmacy this could be completed same day). Daughter informed Sully (MASTER COSMETOLOGIST) will need to be added to HIPAA in order for us to communicate with her as currently the only individual on HIPAA is the daughter Catarina. RN completed HIPAA form with daughter and MASTER COSMETOLOGIST and new form has been scanned into chart. * Addendum Note - Cassy Rollins RN - 07/16/2025 3:59 PM ESTAddended by: CASSY ROLLINS on: 07/16/2025 03:59 PM Modules accepted: Orders * Telephone Encounter - Cassy Rollins RN - 07/16/2025 3:49 PM EST Daughter presented to red team FD with a paper bag of several medications, dating back to 08/2024. RN advised daughter, the SNF discharged patient home with medications and they should have a warfarin 5mg bottle with 2 pills per the SNF RN. Daughter reports she does not have that bag of medicationswith her at this time. RN provided spelling of warfarin (coumadin) to daughter for daughter to check pills when arriving home and to administer the correct medication starting tomorrow. Daughter questioning if pre-filled pill boxes (set up by previous VNA before admission) have warfarin in them. RNadvised daughter, RN cannot confirm if warfarin is in the pill boxes as this RN did not set them up. Daughter informed medications might have been changed in the SNF and the patients medications should be administered as written on discharge summary NOT how they are in the previously filled pill boxes. Daughter appeared to be very overwhelmed. RN did discuss with daughter that permanent placementin a senior living might be in the patients best interest as the patient would have medical care 20/02. Daughter reports the patient does not want to be in a nursing facility however RN re-iterated being home can be dangerous if family/MASTER COSMETOLOGIST's cannot manage home medications. Daughter reports that's why she has daily nurse . RN advised we are NOT sure the patient will receive daily VNA services with [facility] as it will depend on her needs at the time of the SOC visit. Daughter reports she will return to clinic tomorrow with medications from SNF discharge today. * Telephone Encounter - Cassy Rollins RN - 07/16/2025 2:52 PM EST TC returned to [facility] [phone] who reports the mental health case manager was informed by S yesterday that they will NOT take the patient back into services. RN was informed [facility] accepted the patient for services. RN inquired if daughter was made aware of this plan a daughter has NOT wanted adifferent agency in the past. RN was informed the patients daughter is aware it will be a differentagency. RN inquired if warfarin was given today prior to discharge however RN reports warfarin was not given prior to discharge. RN was informed the patients daughter is there now to p/u the patient.RN inquired if it is possible to administer the warfarin prior to discharge as daughter will not adm inister medications as she consistently states I am not a nurse . SNF RN inquired if daughter would administer the coumadin however daughter requested SNF RN provide warfarin to patient. SNF RN confirmed she would administer the warfarin (which has been given at 5:30pm daily) and patient would be discharged home with warfarin 5mg qty 2. RN called [facility] Liaison (Stan) to confirm if [facility] denied patient returning to services as patient had been in SNF's in the past and re-admitted to [facility]. RN was informed liaison is not aware of S denying to take patient back on for services however advised this RN to contact main office. RN contacted [facility] at [phone] and spoke to intake who reports they did deny to take the patient back on for services due to patients family being difficult to manage, patients needs being complex (which they do not feel is appropriate for their staff) and d/t difficulty in obtaining coumadin orders from PCP office. RN inquired on difficulties and was informed it was r/t last discharge from SNF (see antic oagulation encounter from 06/18/25). RN was able to clarify with intake the difficulty was not in relation to coumadin dosing from PCP office. [facility] still denying to accept patient back into services. RN called [facility] [phone] to inquire on SOC date and to discuss INR monitoring/POC. RN was informed they do not have a SOC date for the patient as of yet because they have not received the discharge summary yet. RN was informed SOC is usually within 48hrs of receiving discharge summary and obtaining verbal orders from PCP office. RN unable to discuss INR POC with VNA as patient is not established as of yet. RN discussed plan with PCP as patient does not currently have VNA to check INR or administer coumadin as daughter has history of being unwilling to administer medications. PCP reports she will send coumadin 5mg for a one week supply and patient will need to go to [facility] lab on Monday to have INR rechecked (as we are unsure when patient will have VNA services). PCP requested RN call daughter to discuss coumadin plan and INR POC. RN called daughter [phone] in regards to coumadin dosing and INR POC. Daughter reports she wasNOT aware that the patient would not have [facility] anymore. Daughter inquired on why S will not be returning to care for patient. RN explained it is d/t staffing shortage. Daughter informed we are not aware of when [facility] will be able to start services as they are waiting for discharge from SNF. Daughter advised plan is: Give coumadin 5mg (from SNF) tomorrow 07/17 Give coumadin 5mg (from SNF) Wednesday 07/18 Give coumadin 5mg (from PCP prescription) Thursday 07/19 Give coumadin 5mg (from PCP prescription) Friday 07/20 Bring patient to [facility] lab on Saturday 07/21 RN will call daughter Monday PM if patient completes BW on Monday AM with new coumadin dosing. If patient goes to the lab on Monday PM, RN will contact patient on Monday with new coumadin dosing. Daughter advised if she does NOT receive a call on Monday by 4:30PM to administer coumadin 5mg to patient. Daughter reports she will come to [facility] for RN to show her which medication is the coumadin and for RN to explain above directions. * Telephone Encounter - Cassy Rollins RN - 07/16/2025 10:15 AM EST TC placed to [facility] [phone] who reports the patient is still currently at the facility however she is being discharged today. RN spoke to RN at rehab who reports patients last INR was on 07/14/25 and it was 1.3. RN was informed next INR check would have been on 07/21/25 per theirPOC. RN inquired if referral has been made to [facility] to re-establish VNA care however RN was not sure. RN reports she needed to check with the case consultant and would return call to [facility] with update. RN provided [facility] phone number incase it is needed. RN will await CB. * Telephone Encounter - Cassy Rollins RN - 07/09/2025 9:51 AM EST TC placed to [facility] [phone] to inquire if patient is still admitted to their facility. RN was informed patient remains at their facility with no potential discharge date as of yet.RN will postpone message x1 week to check on status of discharge from STR. * Telephone Encounter - Cassy Rollins RN - 07/03/2025 12:24 PM EST TC placed to [facility] [phone] to inquire if patient is present in their facility. RN was informed patient is currently at their facility with no potential discharge date as of yet. RN will postpone message x1 week to check on status of discharge from STR. * Telephone Encounter - Cassy Rollins RN - 07/02/2025 9:30 AM EST Patient has been admitted to [facility] since 06/26/25 and will be discharged today to [facility] for STR (no INR completed by VNA d/t hospitalization). RN will confirm patient was transferred to [facility] tomorrow. documented in this encounter Plan of Treatment Upcoming Encounters Date Type Department Care Team (Late st Contact Info) Description 08/05/2025 10:45 AM EST Office Visit [facility] MEDICINE [address] [place] [address] Ericka Sarmiento MD [address] [place], [place] [phone] Scheduled Orders Name Type Priority Associated Diagnoses Orde r Schedule Prothrombin Time-INR Lab Routine Paroxysmal atrial fibrillation (CMS/HCC) (HCC) Expected: 07/16/2025, Expires: 07/16/2026 documented as of this encounter Goals Goal [...] patients manage their type 2 diabetes No Cassy Rollins RN Weekly blood pressure task Care Plan Weekly blood pressure task No Cassy Rollins RN Help patients manage their type 2 diabetes Care Plan Help patients manage their type 2 diabetes No Cassy Rollins RN Patient has chronic kidney disease Care Plan Patient has chronic kidney disease No Cassy Rollins RN Weekly blood pressure task Care Plan Weekly blood pressure task No Cassy Rollins RN Patient has chronic kidney disease Care Plan Patient has chronic kidney disease No Cassy Rollins RN Weekly blood pressure task Care [...] Care Plan Weekly blood pressure task No Cassy Rollins RN Weekly blood pressure task Care Plan Weekly blood pressure task No Cassy Rollins RN Patient has chronic kidney disease Care Plan Patient has chronic kidney disease No Cassy Rollins RN Patient has chronic kidney disease Care Plan Patient has chronic kidney disease No Cassy Rollins RN Weekly blood pressure task Care [...] Care Plan Weekly blood pressure task No Cassy Rollins RN Weekly blood pressure task Care Plan Weekly blood pressure task No Cassy Rollins RN Patient has chronic kidney disease Care Plan Patient has chronic kidney disease No Cassy Rollins RN Patient has chronic kidney disease Care Plan Patient has chronic kidney disease No Cassy Rollins RN Weekly blood pressure task Care [...] Care Plan Weekly blood pressure task No Cassy Rollins RN Weekly blood pressure task Care Plan Weekly blood pressure task No Cassy Rollins RN Patient has chronic kidney disease Care Plan Patient has chronic kidney disease No Cassy Rollins RN Patient has chronic kidney disease Care Plan Patient has chronic kidney disease No Cassy Rollins RN Weekly blood pressure task Care Plan Weekly blood pressure task No Cassy Rollins RN Weekly blood pressure task Care Plan Weekly blood pressure task No Cassy Rollins RN Patient has chronic kidney disease Care Plan Patient has chronic kidney disease No Cassy Rollins, RN Patient has chronic kidney disease Care Plan Patient has chronic kidney disease No Cassy Rollins RN Weekly blood pressure task Care Plan Weekly blood pressure task No [facility] PharmD Weekly blood pressure task Care Plan Weekly blood pressure task No [facility] PharmD Patient has chronic kidney disease Care Plan Patient has chronic kidney disease No [facility], PharmDarion Patient has chronic kidney disease Care Plan [...] Care Plan Weekly blood pressure task No Cassy Rollins, RN Weekly blood pressure task Care Plan Weekly blood pressure task No Cassy Rollins, SHIRLEY Patient has chronic kidney disease Care Plan Patient has chronic kidney disease No Cassy Rollins RN Patient has chronic kidney disease Care Plan Patient has chronic kidney disease No Cassy Rollins, RN Weekly blood pressure task Care Plan Weekly blood pressure task No Tabitha [place] Weekly blood pressure task Care Plan Weekly blood pressure task No Paulie Tabitha Patient has chronic kidney disease Care Plan Patient has chronic kidney disease No Paulie, Tabitha Patient has chronic kidney disease Care [...] documented as of this encounter Care Teams Grain Broker And Market Operator Relationship Specialty Start Date End Date Valeri Lerner DO [address] [place] [id number] PCP - General Family Medicine 07/13/12 [place] 12/08/23 documented as of this encounter
--- OUTSIDE RECORDS SUMMARY | 2025-07-18 14:43 | XMS_ITS | Encounter Summary ---
Author Organization [facility] Address [address] [place] [address] Care Team Providers Care Home Furnishings Sales Representative Name Role Phone Valeri Lerner Primary Care Provider [phone]- [phone] Encounter Details Date Type Department Care Team (Late st Contact Info) Description 06/09/2025 Lab Requisition [facility] Main Lab [address] [place] [address] Macario Green MD [address], [place] [phone] Unspecified atrial fibrillation (CMS/HCC V24, CMS/HCC V28) [...] LAB COAGULATION METHOD 06/09/2025 10:54 AM EST [facility] INR 3.1 LAB COAGULATION METHOD 06/09/2025 10:54 AM [facility] Blood Venous blood specimen / Unknown Venipuncture / Unknown 06/09/2025 8:05 AM EST 06/09/2025 10:05 AM EST us Macario Green MD LAB BLOOD ORDERABLES Final R esult [facility] [address] [place] [address], documented in this encounter Visit Diagnoses Diagnosis Unspecified atrial fibrillation (CMS/HCC V24, CMS/HCC V28) documented in this encounter Care Teams Home Furnishings Sales Representative Relationship Specialty Start Date End Date Valeri Lerner DO [address] [place] [address] PCP - General 11/15/14 documented as of this encounter
--- OUTSIDE RECORDS SUMMARY | 2025-07-18 14:43 | XMS_ITS | Encounter Summary ---
Author Organization [facility] Address [address] [place] [address] Care Team Providers Care Surveying Or Spatial Science Technician Name Role Phone Valeri Lerner Primary Care Provider [phone]- [phone] Encounter Details Date Type Department Care Team (Late st Contact Info) Description 07/04/2025 Lab Requisition [facility] - Main Lab [address] [facility] [place] [address] Kymberly Horne MD [address] [id number] Essential (primary) hypertension; Unspecified atrial fibrillation (CMS/HCC [...] LAB COAGULATION METHOD 07/07/2025 10:20 AM EST [facility] INR 2.5 LAB COAGULATION METHOD 07/07/2025 10:20 AM [facility] Blood Venous blood specimen / Unknown Venipuncture / Unknown 07/07/2025 4:43 AM EST 07/07/2025 9:17 AM EST us Kymberly Horne MD LAB BLOOD ORDERABLES Fin al Result [facility] [address] [place] [address], * (ABNORMAL) Basic metabolic panel (07/07/2025 4:43 AM EST) Pathologist [facility] Sodium 140 133 - 145 mmol/L 07/07/2025 10:58 AM EST [facility] Potassium 4.4 3.5 - 5.5 mmol/L 07/07/2025 10:58 AM EST [facility] Chloride 99 96 - 110 mmol/L 07/07/2025 10:58 AM [facility] CO2 33(H) 21 - 32 mmol/L 07/07/2025 10:58 AM EST [facility] Anion Gap 8 3 - 11 07/07/2025 10:58 AM [facility] Glucose 98 70 - 100 mg/dL 07/07/2025 10:58 AM [facility] BUN 31(H) 5 - 25 mg/dL 07/07/2025 10:58 AM [facility] Creatinine 1.23(H) 0.50 - 1.10 mg/dL 07/07/2025 10:58 AM [facility] eGFR 42(L) >=60 mL/min/1. 73m2 07/07/2025 10:58 AM [facility] Comment:Calculation based on the Chronic Kidney Disease Epidemiology Collaboration (CKD-EPI) equation refit without adjustment for race. BUN/Creatinine Ratio 25.2 07/07/2025 10:58 AM [facility] Calcium 9.7 8.5 - 10.5 mg/dL 07/07/2025 10:58 AM [facility] Blood Venous blood specimen / Unknown Venipuncture / Unknown 07/07/2025 4:43 AM EST 07/07/2025 9:17 AM EST us Kymberly Horne MD LAB BLOOD ORDERABLES Fin al Result [facility] [address] [place] [address], * (ABNORMAL) Complete blood count (07/07/2025 4:43 AM EST) WBC 8.2 4.8 - 10.8 K/mcL LAB HEMETOLOGY METHOD 07/07/2025 10:20 AM [facility] RBC 3.90 3.80 - 4.80 M/mcL LAB HEMETOLOGY METHOD 07/07/2025 10:20 AM [facility] Hemoglobin 11.8 11.5 - 16.0 g/dL LAB HEMETOLOGY METHOD 07/07/2025 10:20 AM EST [facility] Hematocrit 37.3 35.0 - 47.0 % LAB HEMETOLOGY METHOD 07/07/2025 10:20 AM [facility] MCV 96.6 79.0 - 98.0 FL LAB HEMETOLOGY METHOD 07/07/2025 10:20 AM [facility] MCH 30.6 27.0 - 32.0 pcg LAB HEMETOLOGY METHOD 07/07/2025 10:20 AM EST [facility] MCHC 31.6(L) 32.0 - 37.0 g/dL LAB HEMETOLOGY METHOD 07/07/2025 10:20 AM [facility] RDW 14.0 11.0 - 15.0 % LAB HEMETOLOGY METHOD 07/07/2025 10:20 AM [facility] Platelets 184 130 - 400 K/mcL LAB HEMETOLOGY METHOD 07/07/2025 10:20 AM EST [facility] MPV 11.6(H) 7.0 - 11.0 FL LAB HEMETOLOGY METHOD 07/07/2025 10:20 AM EST [facility] NRBC 0.0 <1.0 % LAB HEMETOLOGY METHOD 07/07/2025 10:20 AM [facility] NRBC Absolute 0.00 <0.10 K/mcL LAB HEMETOLOGY METHOD 07/07/2025 10:20 AM [facility] Blood Venous blood specimen / Unknown Venipuncture / Unknown 07/07/2025 4:43 AM EST 07/07/2025 9:17 AM EST us Kymberly Horne MD LAB BLOOD ORDERABLES Fin al Result [facility] [address] [place] [address], documented in this encounter Visit Diagnoses Diagnosis Essential (primary) hypertension Unspecified essential hypertension Unspecified atrial fibrillation ([facility] V24, [facility] V28) Heart failure, unspecified ([facility] V24, [facility] V28) Heart failure, unspecified Chronic embolism and thrombosis of unspecified vein documented in this encounter Care Teams Surveying Or Spatial Science Technician Relationship Specialty Start Date End Date Valeri Lerner DO [address] [place] [address] PCP - General 11/15/14 documented as of this encounter
--- OUTSIDE RECORDS SUMMARY | 2025-07-18 14:43 | XMS_ITS | Encounter Summary ---
Author Organization [facility] Address [address] [place] [address] Care Team Providers Care Adult Services Librarian Name Role Phone Valeri Lerner Primary Care Provider +1- [phone] Encounter Details Date Type Department Care Team (Late st Contact Info) Description 06/10/2025 Lab Requisition [facility] - Main Lab [address] [place] [address] Macario Green MD [address], [place] [phone] Unspecified atrial fibrillation (CMS/HCC V24, CMS/HCC V28) [...] LAB COAGULATION METHOD 06/10/2025 8:21 AM EST [facility] INR 2.5 LAB COAGULATION METHOD 06/10/2025 8:21 AM EST [facility] Blood Venous blood specimen / Unknown Venipuncture / Unknown 06/10/2025 6:10 AM EST 06/10/2025 8:01 AM EST us Macario Green MD LAB BLOOD ORDERABLES Final R esult [facility] [address] [place] [address], documented in this encounter Visit Diagnoses Diagnosis Unspecified atrial fibrillation (CMS/HCC V24, CMS/HCC V28) documented in this encounter Care Teams Adult Services Librarian Relationship Specialty Start Date End Date Valeri Lerner DO [address] [place] [address] PCP - General 11/15/14 documented as of this encounter
--- OUTSIDE RECORDS SUMMARY | 2025-07-18 14:43 | XMS_ITS | Encounter Summary ---
Author Organization [facility] Address [address] [place] [address] Care Team Providers Care Sql Application Developer Name Role Phone Valeri Lerner Primary Care Provider +1- [phone] Encounter Details Date Type Department Care Team (Late st Contact Info) Description 06/05/2025 Lab Requisition [facility] - Main Lab [address] [place] [address] Macario Green MD [address] [place], [place] [phone] Unspecified atrial fibrillation (CMS/HCC V24, CMS/HCC V28) [...] LAB COAGULATION METHOD 06/05/2025 8:45 AM EST [facility] INR 1.6 LAB COAGULATION METHOD 06/05/2025 8:45 AM EST [facility] Blood Venous blood specimen / Unknown Venipuncture / Unknown 06/05/2025 7:00 AM EST 06/05/2025 8:16 AM EST us Macario Green MD LAB BLOOD ORDERABLES Final R esult [facility] [address] [place] [address], documented in this encounter Visit Diagnoses Diagnosis Unspecified atrial fibrillation (CMS/HCC V24, CMS/HCC V28) documented in this encounter Care Teams Sql Application Developer Relationship Specialty Start Date End Date Valeri Lerner DO [address] [place] [address] PCP - General 11/15/14 documented as of this encounter
--- OUTSIDE RECORDS SUMMARY | 2025-07-18 14:43 | XMS_ITS | Encounter Summary ---
Author Organization [employer] Address [address] [place] [address] [address] [place] [address] Care Team Providers Care [employer] Name Role Phone Valeri Lerner DO Primary Care Provider Batsheva Gomez PharmD Unavailable Encounter Details Date Type Department Care Team (Late st Contact Info) Description 08/03/2022 Orders Only [facility] MED & PEDS [address] [place], [place] [phone] Valeri Renner LPN Social History Tobacco Use [...] 10:45 AM EST Office Visit [facility] MEDICINE [address] [place] [address] Ericka Sarmiento MD [address] [place], [place] [phone] documented as of this encounter Procedures Procedure [...] EST) Protime 26.1(H) 11.1 - 13.5 sec [facility] 07/14/2023 11:0 7 AM EST 07/14/2023 11:08 AM EST us Generic External Data Provider LAB BLOOD ORDERAB LES Final Result [facility] [address] [place] [address] [phone] * (ABNORMAL) ~PT, ~INR - [facility]TI [facility] (07/14/2023 11:07 AM EST) Prothrombin Time INR 2.2(H) 0.9 - 1.1 [facility] Comment:METER #: [id number] TERNATIONAL NORMALIZED RATIO (INR) REFERENCE RANGES Reference [...] ORDERAB LES Final Result Performing Organization Address [facility] Co de Phone Number [facility] [address] [place] [phone] * (ABNORMAL) PROTHROMBIN TIME WHOLE BLD POC (06/09/2023 11:34 AM EST) Protime 23.9(H) 11.1 - 13.5 sec [facility] 06/09/2023 11:3 4 AM EST 06/09/2023 11:36 AM EST Generic External Data Provider LAB BLOOD ORDERAB LES Final Result Performing Organization Address [facility] de Phone Number [facility] [address] [place] [phone] * (ABNORMAL) ~PT, ~INR - ANTI [facility]AG CLINIC (06/09/2023 11:34 AM EST) Prothrombin Time INR 2.0(H) 0.9 - 1.1 [facility] Comment:METER #: [id number] TERNATIONAL NORMALIZED RATIO (INR) REFERENCE RANGES Reference [...] ORDERAB LES Final Result Performing Organization Address [facility] de Phone Number [facility] [address] [place] [phone] * (ABNORMAL) PROTHROMBIN TIME WHOLE BLD POC (03/22/2023 11:23 AM EDT) Protime 38.5(H) 11.1 - 13.5 sec [facility] 03/22/2023 11:2 3 AM EDT 03/22/2023 11:25 AM EDT Generic External Data Provider LAB BLOOD ORDERAB LES Final Result Performing Organization Address [facility] Phone Number [facility] [address] [place] [phone] * (ABNORMAL) ~PT, ~INR - ANTI [facility]AG CLINIC (03/22/2023 11:23 AM EDT) Prothrombin Time INR 3.2(H) 0.9 - 1.1 [facility] Comment:METER #: [id number] TERNATIONAL NORMALIZED RATIO (INR) REFERENCE RANGES Reference [...] 3 AM EDT 03/22/2023 11:25 AM EDT [facility] External Provider LAB BLO OD ORDERABLES Final Result Performing Organization Address [facility] de Phone Number [facility] [address] [place] [phone] * (ABNORMAL) PROTHROMBIN TIME WHOLE BLD POC (03/01/2023 11:31 AM EDT) Protime 26.8(H) 11.1 - 13.5 sec [facility] 03/01/2023 11:3 1 AM EDT 03/01/2023 11:33 AM EDT Generic External Data Provider LAB BLOOD ORDERAB LES Final Result Performing Organization Address City/[facility]/ZIP Co de Phone Number [facility] [address] [place] [address] [phone] * (ABNORMAL) ~PT, ~INR - ANTI COAG CLINIC (03/01/2023 11:31 AM EDT) Prothrombin Time INR 2.2(H) 0.9 - 1.1 [facility] Comment:METER #: [id number] TERNATIONAL NORMALIZED RATIO (INR) REFERENCE RANGES Reference [...] 1 AM EDT 03/01/2023 11:33 AM EDT [facility] External Provider LAB BLO OD ORDERABLES Final Result Performing Organization Address City/[facility]/ZIP Co de Phone Number [facility] [address] [place] [address] [phone] * (ABNORMAL) PROTHROMBIN TIME WHOLE BLD POC (02/08/2023 11:20 AM EDT) Protime 26.7(H) 11.1 - 13.5 sec [facility] 02/08/2023 11:2 0 AM EDT 02/08/2023 11:22 AM EDT [facility] External Provider LAB BLO OD ORDERABLES Final Result Performing Organization Address [facility] Co de Phone Number [facility] [address] [place] [address] [phone] * (ABNORMAL) ~PT, ~INR - ANTI COAG CLINIC (02/08/2023 11:20 AM EDT) Prothrombin Time INR 2.2(H) 0.9 - 1.1 [facility] Comment:METER #: [id number] TERNATIONAL NORMALIZED RATIO (INR) REFERENCE RANGES Reference [...] 0 AM EDT 02/08/2023 11:22 AM EDT [facility] External Provider LAB BLO OD ORDERABLES Final Result Performing Organization Address [facility] Co de Phone Number [facility] [address] [place] [address] [phone] * (ABNORMAL) PROTHROMBIN TIME WHOLE BLD POC (01/18/2023 2:41 PM EDT) Protime 25.7(H) 11.1 - 13.5 sec [facility] 01/18/2023 2:41 PM EDT 01/18/2023 2:43 PM EDT [facility] External Provider LAB BLO OD ORDERABLES Final Result Performing Organization Address City/[facility] Co de Phone Number [facility] [address] [place] [address] [phone] * (ABNORMAL) ~PT, ~INR - ANTI COAG CLINIC (01/18/2023 2:41 PM EDT) Prothrombin Time INR 2.1(H) 0.9 - 1.1 [facility] Comment:METER #: [id number] TERNATIONAL NORMALIZED RATIO (INR) REFERENCE RANGES Reference [...] 2:41 PM EDT 01/18/2023 2:43 PM EDT [facility] External Provider LAB BLO OD ORDERABLES Final Result Performing Organization Address [facility] Co de Phone Number [facility] [address] [place] [address] [phone] * (ABNORMAL) PROTHROMBIN TIME WHOLE BLD POC (12/30/2022 11:46 AM EDT) Protime 20.5(H) 11.1 - 13.5 sec [facility] 12/30/2022 11:4 6 AM EDT 12/30/2022 11:48 AM EDT [facility] External Provider LAB BLO OD ORDERABLES Final Result Performing Organization Address [facility] Co de Phone Number [facility] [address] [place] [address] [phone] * (ABNORMAL) ~PT, ~INR - ANTI COAG CLINIC (12/30/2022 11:46 AM EDT) Prothrombin Time INR 1.7(H) 0.9 - 1.1 [facility] Comment:METER #: [id number] TERNATIONAL NORMALIZED RATIO (INR) REFERENCE RANGES Reference [...] 6 AM EDT 12/30/2022 11:48 AM EDT [facility] External Provider LAB BLO OD ORDERABLES Final Result Performing Organization Address [facility]/ZIP Co de Phone Number [facility] [address] [place] [phone] * (ABNORMAL) PROTHROMBIN TIME WHOLE BLD POC (12/15/2022 10:26 AM EDT) Protime 23.7(H) 11.1 - 13.5 sec [facility] 12/15/2022 10:2 6 AM EDT 12/15/2022 10:28 AM EDT [facility] External Provider LAB BLO OD ORDERABLES Final Result Performing Organization Address City/[facility]/ZIP Co de Phone Number [facility] [address] [place] [address] [phone] * (ABNORMAL) ~PT, ~INR - ANTI COAG CLINIC (12/15/2022 10:26 AM EDT) Prothrombin Time INR 2.0(H) 0.9 - 1.1 [facility] Comment:METER #: [id number] TERNATIONAL NORMALIZED RATIO (INR) REFERENCE RANGES Reference [...] 6 AM EDT 12/15/2022 10:28 AM EDT [facility] External Provider LAB BLO OD ORDERABLES Final Result Performing Organization Address [facility] Co de Phone Number [facility] [address] [place] [phone] * (ABNORMAL) PROTHROMBIN TIME WHOLE BLD POC (11/30/2022 11:01 AM EDT) Protime 21.3(H) 11.1 - 13.5 sec [facility] 11/30/2022 11:0 1 AM EDT 11/30/2022 11:04 AM EDT [facility] External Provider LAB BLO OD ORDERABLES Final Result Performing Organization Address [facility] Co de Phone Number [facility] [address] [place] [phone] * (ABNORMAL) ~PT, ~INR - ANTI COAG CLINIC (11/30/2022 11:01 AM EDT) Prothrombin Time INR 1.8(H) 0.9 - 1.1 [facility] Comment:METER #: [id number] TERNATIONAL NORMALIZED RATIO (INR) REFERENCE RANGES Reference [...] 1 AM EDT 11/30/2022 11:04 AM EDT [facility] External Provider LAB BLO OD ORDERABLES Final Result Performing Organization Address [facility] de Phone Number [facility] [address] [place] [phone] * (ABNORMAL) PROTHROMBIN TIME WHOLE BLD POC (11/09/2022 10:29 AM EDT) Protime 28.8(H) 11.1 - 13.5 sec [facility] 11/09/2022 10:2 9 AM EDT 11/09/2022 10:30 AM EDT [facility] External Provider LAB BLO OD ORDERABLES Final Result Performing Organization Address [facility] de Phone Number [facility] [address] [place] [phone] * (ABNORMAL) ~PT, ~INR - ANTI COAG CLINIC (11/09/2022 10:29 AM EDT) Prothrombin Time INR 2.4(H) 0.9 - 1.1 [facility] Comment:METER #: [id number] TERNATIONAL NORMALIZED RATIO (INR) REFERENCE RANGES Reference [...] 9 AM EDT 11/09/2022 10:30 AM EDT [facility] External Provider LAB BLO OD ORDERABLES Final Result Performing Organization Address City/[facility]/ZIP Co de Phone Number [facility] [address] [place] [address] [phone] * (ABNORMAL) Basic Metabolic Panel (10/05/2022 10:02 AM EST) Sodium 146(H) 135 - 145 mmol/L [facility] Potassium 3.4 3.3 - 5.1 mmol/L [facility] Chloride 105 96 - 108 mmol/L [facility] Carbon Dioxide 29 22 - 29 mmol/L [facility] Anion Gap 15 12 - 20 [facility] Urea Nitrogen (BUN) 20(H) 9 - 16 mg/dL [facility] Creatinine, Serum 0.96 0.5 - 1.4 mg/dL [facility] Estimated Glomerular Filt Rate 55 [facility] Comment:NOTE: For -Am erican individuals, multiply the result by 1.210.Chronic Kidney Disease: Estimated GFR < 60 mL/min/1.54f5Yrrads Kidney Disease: Estimated GFR < 15 mL/min/1.73m2 Glucose 28(LL) 60 - 115 mg/dL [facility] Comment:Critical value for t est(GLUR): Results called to and readback by: TONI Guerra LPN Person calling: PATRICIA Date:10/05/22 Time: 1112 Calcium 9.3 8.4 - 10.2 mg/dL [facility] 10/05/2022 10:0 2 AM EST 10/05/2022 10:31 AM EST us [facility] External Provider LAB BLO OD ORDERABLES Final Result Performing Organization Address [facility]/ZIP Co de Phone Number [facility] [address] [place] [address] [phone] * (ABNORMAL) Prothrombin Time-INR (10/05/2022 10:02 AM EST) Prothrombin Time 72.7(H) 10.0 - 13.1 SEC [facility] INTERNATIONAL NORM RATIO 5.9(HH) 0.9 - 1.1 [facility] Comment:RESULTS OF INR VO D [...] 2 AM EST 10/05/2022 10:31 AM EST [facility] External Provider LAB BLO OD ORDERABLES Final Result [facility] [address] [place] [phone] * (ABNORMAL) CBC auto differential (10/05/2022 10:02 AM EST) White Blood Count 10.8 4.8 - 10.8 X10*3/uL [facility] Red Blood Count 4.02(L) 4.20 - 5.50 X10*6/uL [facility] Hemoglobin 12.3 12.0 - 16.0 g/dl [facility] Hematocrit 39.4 37.0 - 47.0 % [facility] Mean Corpuscular Volume 98.0 80.0 - 98.0 fL [facility] Mean Corpuscular Hemoglobin 30.6 27.0 - 33.0 pg [facility] Mean Corpuscular HGB Conc 31.2 31.0 - 35.0 g/dl [facility] Red Cell Distribution Width 13.4 11.0 - 16.0 % [facility] Platelet Count 217 160 - 400 X10*3/uL [facility] Mean Platelet Volume 10.9 9.4 - 12.3 fL [facility] Neutrophils Percent Auto 58.6 45 - 73 % [facility] Imm Gran Pct Auto 0.4 0.0 - 0.4 % [facility] Lymphocytes Percent Auto 31.5 20 - 40 % [facility] Monocytes Percent Auto 5.8 2 - 11 % [facility] Eosinophils Percent Auto 3.1 0 - 4 % [facility] Basophils Percent Auto 0.6 0 - 2 % [facility] NRBC Pct Auto 0.0 0.0 - 0.2 /100WBC [facility] Neutrophils Absolute Auto 6.3 2.0 - 8.3 x10*3/uL [facility] Imm Gran Abs Auto 0.04(H) 0.00 - 0.03 X10*3/uL [facility] Lymphocytes Absolute Auto 3.4 1.2 - 4.9 X10*3/uL [facility] Monocytes Absolute Auto 0.6 0.1 - 1.2 X10*3/uL [facility] Eosinophils Absolute Auto 0.3 0.0 - 0.4 X10*3/uL [facility] Basophils Absolute Auto 0.1 0.0 - 0.2 X10*3/uL [facility] NRBC Abs Auto 0.000 0.0 - 0.012 X10*3/uL [facility] 10/05/2022 10:0 2 AM EST 10/05/2022 10:31 AM EST us [facility] External Provider LAB BLO OD ORDERABLES Final Result [facility] [address] [place] [address] [phone] * (ABNORMAL) Prothrombin Time-INR (10/03/2022 2:57 PM EST) Prothrombin Time 92.9(H) 10.0 - 13.1 SEC [facility] INTERNATIONAL NORM RATIO 7.4(HH) 0.9 - 1.1 [facility] Comment:RESULTS OF INR VO D [...] PM EST 10/03/2022 3:20 PM EST us [facility] External Provider LAB BLO OD ORDERABLES Final Result [facility] [address] [place] [phone] * (ABNORMAL) CBC auto differential (09/20/2022 11:35 AM EST) White Blood Count 9.1 4.8 - 10.8 X10*3/uL [facility] Red Blood Count 4.06(L) 4.20 - 5.50 X10*6/uL [facility] Hemoglobin 12.6 12.0 - 16.0 g/dl [facility] Hematocrit 39.2 37.0 - 47.0 % [facility] Mean Corpuscular Volume 96.6 80.0 - 98.0 fL [facility] Mean Corpuscular Hemoglobin 31.0 27.0 - 33.0 pg [facility] Mean Corpuscular HGB Conc 32.1 31.0 - 35.0 g/dl [facility] Red Cell Distribution Width 13.7 11.0 - 16.0 % [facility] Platelet Count 127(L) 160 - 400 X10*3/uL [facility] Mean Platelet Volume 11.2 9.4 - 12.3 fL [facility] Neutrophils Percent Auto 85.6(H) 45 - 73 % [facility] Imm Gran Pct Auto 0.2 0.0 - 0.4 % [facility] Lymphocytes Percent Auto 9.6(L) 20 - 40 % [facility] Monocytes Percent Auto 4.4 2 - 11 % [facility] Eosinophils Percent Auto 0.0 0 - 4 % [facility] Basophils Percent Auto 0.2 0 - 2 % [facility] NRBC Pct Auto 0.0 0.0 - 0.2 /100WBC [facility] Neutrophils Absolute Auto 7.7 2.0 - 8.3 x10*3/uL [facility] Imm Gran Abs Auto 0.02 0.00 - 0.03 X10*3/uL [facility] Lymphocytes Absolute Auto 0.9(L) 1.2 - 4.9 X10*3/uL [facility] Monocytes Absolute Auto 0.4 0.1 - 1.2 X10*3/uL [facility] Eosinophils Absolute Auto 0.0 0.0 - 0.4 X10*3/uL [facility] Basophils Absolute Auto 0.0 0.0 - 0.2 X10*3/uL [facility] NRBC Abs Auto 0.000 0.0 - 0.012 X10*3/uL [facility] 09/20/2022 11:3 5 AM EST 09/20/2022 11:39 AM EST [facility] External Provider LAB BLO OD ORDERABLES Final Result [facility] [address] [place] [phone] * SARS-CoV-2 RNA, Influenza A/B, and RSV RNA, Ql NAAT (09/20/2022 11:34 AM EST) Influenza A PCR NEGATIVE Negative [facility] Influenza B PCR NEGATIVE Negative [facility] Resp Syncy Virus RNA Qual PCR NEGATIVE Negative [facility] SARS COV2 PCR NEGATIVE Negative [facility] SARS/Flu/RSV Note See Note [facility] Comment:All test results mus t [...] use by authorized laboratories.Testing performed on the m[employer] GeneXpert utilizingreal-time RT-PCR.All SARS CoV2 and positive influenza A/B results arereported to [facility]. 09/20/2022 11:3 4 AM EST 09/20/2022 11:51 AM EST [facility] Exter nal Provider LAB MICROBIOLOGY - GENERAL ORDERABLES Final Result Performing Organization Address City/[facility]/ZIP Co de Phone Number [facility] [address] [place] [phone] * TSH W/Reflex to FT4 (09/20/2022 11:34 AM EST) TSH reflex Free T4 0.75 0.32 - 4.0 uIU/mL [facility] 09/20/2022 11:3 4 AM EST 09/20/2022 11:39 AM EST [facility] External Provider LAB BLO OD ORDERABLES Final Result Performing Organization Address [facility]/ZIP Co de Phone Number [facility] [address] [place] [phone] * (ABNORMAL) B Type Natriuretic Peptide (BNP) (09/20/2022 11:34 AM EST) B Type Natriuretic Peptide 421(H) <100 pg/mL [facility] Comment:For those patients w ho are being treated with Natrecor(nesiritide, recombinant BNP), BNP testing should beperformed at least two hours post treatment in order toensure that only endogenous levels of BNP are detected. 09/20/2022 11:3 4 AM EST 09/20/2022 11:39 AM EST [facility] External Provider LAB BLO OD ORDERABLES Final Result Performing Organization Address [facility] Co de Phone Number [facility] [address] [place] [phone] * Lipase (09/20/2022 11:34 AM EST) Lipase 55 8 - 78 U/L [facility] 09/20/2022 11:3 4 AM EST 09/20/2022 11:39 AM EST [facility] External Provider LAB BLO OD ORDERABLES Final Result Performing Organization Address [facility] Phone Number [facility] [address] [place] [address] [phone] * Magnesium (09/20/2022 11:34 AM EST) Pathologist [facility] Magnesium 1.6 1.6 - 2.6 mg/dL [facility] 09/20/2022 11:3 4 AM EST 09/20/2022 11:39 AM EST [facility] External Provider LAB BLO OD ORDERABLES Final Result Performing Organization Address [facility] de Phone Number [facility] [address] [place] [phone] * (ABNORMAL) Comprehensive Metabolic Panel (09/20/2022 11:34 AM EST) Sodium 137 135 - 145 mmol/L [facility] Potassium 3.8 3.3 - 5.1 mmol/L [facility] Chloride 99 96 - 108 mmol/L [facility] Carbon Dioxide 30(H) 22 - 29 mmol/L [facility] Anion Gap 12 12 - 20 [facility] Urea Nitrogen (BUN) 22(H) 9 - 16 mg/dL [facility] Creatinine, Serum 1.08 0.5 - 1.4 mg/dL [facility] Creatinine Clr Calc Pharmacy 40.4 [facility] Comment:Provided height and weight: 157.48 cm,99.4 kg.eGFR (calculated from the MDRD study equation) and eCrCl(calculated from the Cockcroft-Gault equation) are based ondifferent parameters and may not yield comparable results.If eCrCl result is absurd, please check patient'sheight/weight. Estimated Glomerular Filt Rate 48 [facility] Comment:NOTE: For -Am erican individuals, multiply the result by 1.210.Chronic Kidney Disease: Estimated GFR < 60 mL/min/1.36q3Mlyits Kidney Disease: Estimated GFR < 15 mL/min/1.73m2 Glucose 253(H) 60 - 115 mg/dL [facility] Calcium 9.1 8.4 - 10.2 mg/dL [facility] Bilirubin, Total 0.8 0.0 - 1.0 mg/dL [facility] Aspartate Amino Transferase 24 5 - 31 U/L [facility] Alanine Aminotransferase 21 0 - 31 U/L [facility] Total Protein 7.1 6.5 - 8.0 g/dL [facility] Albumin Level 3.7 3.5 - 5.0 g/dL [facility] Alkaline Phosphatase 105 39 - 117 U/L [facility] 09/20/2022 11:3 4 AM EST 09/20/2022 11:39 AM EST [facility] External Provider LAB BLO OD ORDERABLES Final Result [facility] [address] [place] [phone] Lactic Acid (09/20/2022 11:34 AM EST) Lactic Acid 1.1 0.5 - 2.0 mmol/L [facility] 09/20/2022 11:3 4 AM EST 09/20/2022 11:39 AM EST [facility] External Provider LAB BLO OD ORDERABLES Final Result Performing Organization Address [facility] Co de Phone Number [facility] [address] [place] [phone] * (ABNORMAL) Prothrombin Time-INR (09/20/2022 11:34 AM EST) Prothrombin Time 18.3(H) 10.0 - 13.1 SEC [facility] INTERNATIONAL NORM RATIO 1.6(H) 0.9 - 1.1 [facility] Comment:INTERNATIONAL NORMAL IZED RATIO (INR) [...] 4 AM EST 09/20/2022 11:39 AM EST [facility] External Provider LAB BLO OD ORDERABLES Final Result Performing Organization Address [facility] Co de Phone Number [facility] [address] [place] [phone] * (ABNORMAL) PROTHROMBIN TIME WHOLE BLD POC (09/12/2022 10:21 AM EST) Protime 24.5(H) 11.1 - 13.5 sec [facility] 09/12/2022 10:2 1 AM EST 09/12/2022 10:22 AM EST [facility] External Provider LAB BLO OD ORDERABLES Final Result Performing Organization Address City/[facility]/ZIP Co de Phone Number [facility] [address] [place] [address] [phone] * (ABNORMAL) ~PT, ~INR - ANTI COAG CLINIC (09/12/2022 10:21 AM EST) Prothrombin Time INR 2.0(H) 0.9 - 1.1 [facility] Comment:METER #: [id number] TERNATIONAL NORMALIZED RATIO (INR) REFERENCE RANGES Reference [...] 1 AM EST 09/12/2022 10:22 AM EST [facility] External Provider LAB BLO OD ORDERABLES Final Result Performing Organization Address [facility] Co de Phone Number [facility] [address] [place] [address] [phone] * (ABNORMAL) PROTHROMBIN TIME WHOLE BLD POC (08/29/2022 10:11 AM EST) Protime 20.9(H) 11.1 - 13.5 sec [facility] 08/29/2022 10:1 1 AM EST 08/29/2022 10:15 AM EST [facility] External Provider LAB BLO OD ORDERABLES Final Result Performing Organization Address [facility] Co de Phone Number [facility] [address] [place] [address] [phone] * (ABNORMAL) ~PT, ~INR - ANTI COAG CLINIC (08/29/2022 10:11 AM EST) Prothrombin Time INR 1.7(H) 0.9 - 1.1 [facility] [facility] Comment:METER #: [id number] TERNATIONAL NORMALIZED RATIO (INR) REFERENCE RANGES Reference [...] 1 AM EST 08/29/2022 10:15 AM EST [facility] External Provider LAB BLO OD ORDERABLES Final Result Performing Organization Address City/[facility] Co de Phone Number [facility] [address] [place] [address] [phone] * (ABNORMAL) PROTHROMBIN TIME WHOLE BLD POC (08/18/2022 1:12 PM EST) Protime 22.1(H) 11.1 - 13.5 sec [facility] 08/18/2022 1:12 PM EST 08/18/2022 1:14 PM EST [facility] External Provider LAB BLO OD ORDERABLES Final Result Performing Organization Address City/[facility] Co de Phone Number [facility] [address] [place] [phone] * (ABNORMAL) ~PT, ~INR - ANTI COAG CLINIC (08/18/2022 1:12 PM EST) Prothrombin Time INR 1.8(H) 0.9 - 1.1 [facility] Comment:METER #: [id number] TERNATIONAL NORMALIZED RATIO (INR) REFERENCE RANGES Reference [...] 1:12 PM EST 08/18/2022 1:14 PM EST [facility] External Provider LAB BLO OD ORDERABLES Final Result [facility] [address] [place] [address] [phone] documented in this encounter Visit Diagnoses Not on filedocumented in this encounter Care Teams [employer] Relationship Specialty Start Date End Date Valeri Lerner DO [address] [place] [address] PCP - General Family Medicine 07/13/12 Batsheva Gomez PharmD [address] [place] [address] Pharmacist Internal Medicine 03/07/24 12/19/24 [facility] 12/08/23 documented as of this encounter
--- OUTSIDE RECORDS SUMMARY | 2025-07-18 14:43 | XMS_ITS | Encounter Summary ---
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 [...] WITH INR Routine 06/02/2025 6:24 AM EST [facility] (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 documented in this encounter Results * (ABNORMAL) Prothrombin time with INR (06/02/2025 6:24 AM EST) Protime 15.9(H) 10.6 - 13.9 sec LAB COAGULATION METHOD 06/02/2025 10:54 AM EST [facility] INR 1.3 LAB COAGULATION METHOD 06/02/2025 10:54 AM EST [facility] Blood Venous blood specimen / Unknown Venipuncture / Unknown 06/02/2025 6:24 AM EST 06/02/2025 9:50 AM EST us Macario Green MD LAB BLOOD ORDERABLES Final R esult [facility]) [facility] [address] [place] [address], [place] [phone] documented in this encounter 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
--- OUTSIDE RECORDS SUMMARY | 2025-07-18 14:43 | XMS_ITS | Encounter Summary ---
Author Organization [facility] Address [address] [place] [address] Care Team Providers Care Sat Instructor Name Role Phone Valeri Lerner Primary Care Provider +1- [phone] Encounter Details Date Type Department Care Team (Late st Contact Info) Description 06/04/2025 Lab Requisition [facility] - Main Lab [address] [place] [address] Macario Green MD [address], [place] [phone] Paroxysmal atrial fibrillation (CMS/HCC V24, CMS/HCC V28) [...] LAB COAGULATION METHOD 06/04/2025 10:08 AM EST [facility] INR 1.5 LAB COAGULATION METHOD 06/04/2025 10:08 AM [facility] Blood Venous blood specimen / Unknown Venipuncture / Unknown 06/04/2025 5:27 AM EST 06/04/2025 8:54 AM EST us Macario Green MD LAB BLOOD ORDERABLES Final R esult [facility] ([facility]) [facility] [address] [place] [address], documented in this encounter Visit Diagnoses Diagnosis Paroxysmal atrial fibrillation (CMS/HCC V24, CMS/HCC V28) Atrial fibrillation documented in this encounter Care Teams Sat Instructor Relationship Specialty Start Date End Date Valeri Lerner DO [address] [place] [address] PCP - General 11/15/14 documented as of this encounter
--- OUTSIDE RECORDS SUMMARY | 2025-07-18 14:43 | XMS_ITS | Encounter Summary ---
Author Organization [facility] Address [address] [place] [address] Care Team Providers Care Car Tracer Name Role Phone Valeri Lerner Primary Care Provider +1- [phone] Encounter Details Date Type Department Care Team (Late st Contact Info) Description 07/02/2025 Lab Requisition [facility] - Main Lab [address] [facility] [place] [address] Kymberly Horne MD [address] [address] Essential (primary) hypertension; Unspecified atrial [...] Hemoglobin A1c (07/02/2025 8:03 AM EST) Pathologist [facility] Hemoglobin A1C 6.7(H) <6.5 % LAB CHEMISTRY METHOD 07/02/2025 2:06 PM EST [facility] Mean Bld Glu Estim. 146 mg/dL LAB CHEMISTRY METHOD 07/02/2025 2:06 PM EST [facility] Blood Venous blood specimen / Unknown Venipuncture / Unknown 07/02/2025 8:03 AM EST 07/02/2025 10:06 AM EST us Kymberly Horne MD LAB BLOOD ORDERABLES Fin al Result [facility] [address] [place] [address], * (ABNORMAL) Basic metabolic panel (07/02/2025 8:03 AM EST) Pathologist [facility] Sodium 142 133 - 145 mmol/L 07/02/2025 10:45 AM EST [facility] Potassium 3.9 3.5 - 5.5 mmol/L 07/02/2025 10:45 AM EST [facility] Chloride 99 96 - 110 mmol/L 07/02/2025 10:45 AM EST [facility] CO2 34(H) 21 - 32 mmol/L 07/02/2025 10:45 AM [facility] Anion Gap 9 3 - 11 07/02/2025 10:45 AM [facility] Glucose 150(H) 70 - 100 mg/dL 07/02/2025 10:45 AM [facility] BUN 33(H) 5 - 25 mg/dL 07/02/2025 10:45 AM [facility] Creatinine 1.22(H) 0.50 - 1.10 mg/dL 07/02/2025 10:45 AM [facility] eGFR 43(L) >=60 mL/min/1. 73m2 07/02/2025 10:45 AM [facility] Comment:Calculation based on the Chronic Kidney Disease Epidemiology Collaboration (CKD-EPI) equation refit without adjustment for race. BUN/Creatinine Ratio 27.0 07/02/2025 10:45 AM [facility] Calcium 9.8 8.5 - 10.5 mg/dL 07/02/2025 10:45 AM [facility] Blood Venous blood specimen / Unknown Venipuncture / Unknown 07/02/2025 8:03 AM EST 07/02/2025 10:06 AM EST us Kymberly Horne MD LAB BLOOD ORDERABLES Fin al Result [facility] [address] [place] [address], * (ABNORMAL) Prothrombin time with INR (07/02/2025 8:03 AM EST) Protime 34.2(H) 10.6 - 13.9 sec LAB COAGULATION METHOD 07/02/2025 10:43 AM [facility] INR 2.8 LAB COAGULATION METHOD 07/02/2025 10:43 AM [facility] Blood Venous blood specimen / Unknown Venipuncture / Unknown 07/02/2025 8:03 AM EST 07/02/2025 10:06 AM EST us Kymberly Horne MD LAB BLOOD ORDERABLES Fin al Result [facility] [address] [place] [address], * (ABNORMAL) Complete blood count (07/02/2025 8:03 AM EST) WBC 9.9 4.8 - 10.8 K/mcL LAB HEMETOLOGY METHOD 07/02/2025 10:20 AM [facility] RBC 4.10 3.80 - 4.80 M/mcL LAB HEMETOLOGY METHOD 07/02/2025 10:20 AM [facility] Hemoglobin 12.3 11.5 - 16.0 g/dL LAB HEMETOLOGY METHOD 07/02/2025 10:20 AM [facility] Hematocrit 39.1 35.0 - 47.0 % LAB HEMETOLOGY METHOD 07/02/2025 10:20 AM [facility] MCV 96.5 79.0 - 98.0 FL LAB HEMETOLOGY METHOD 07/02/2025 10:20 AM [facility] MCH 30.4 27.0 - 32.0 pcg LAB HEMETOLOGY METHOD 07/02/2025 10:20 AM [facility] MCHC 31.5(L) 32.0 - 37.0 g/dL LAB HEMETOLOGY METHOD 07/02/2025 10:20 AM [facility] RDW 14.4 11.0 - 15.0 % LAB HEMETOLOGY METHOD 07/02/2025 10:20 AM [facility] Platelets 195 130 - 400 K/mcL LAB HEMETOLOGY METHOD 07/02/2025 10:20 AM EST [facility] MPV 11.3(H) 7.0 - 11.0 FL LAB HEMETOLOGY METHOD 07/02/2025 10:20 AM EST [facility] NRBC 0.0 <1.0 % LAB HEMETOLOGY METHOD 07/02/2025 10:20 AM EST [facility] NRBC Absolute 0.00 <0.10 K/mcL LAB HEMETOLOGY METHOD 07/02/2025 10:20 AM EST [facility] Blood Venous blood specimen / Unknown Venipuncture / Unknown 07/02/2025 8:03 AM EST 07/02/2025 10:06 AM EST us Kymberly Horne MD LAB BLOOD ORDERABLES Fin al Result [facility] [address] [place] [address], documented in this encounter Visit Diagnoses Diagnosis Essential (primary) hypertension Unspecified essential hypertension Unspecified atrial fibrillation (CMS/HCC V24, CMS/HCC V28) Type 2 diabetes mellitus with unspecified complications (CMS/HCC V24, CMS/HCC V28) documented in this encounter Care Teams Car Tracer Relationship Specialty Start Date End Date Valeri Lerner DO [address] [place] [address] PCP - General 11/15/14 documented as of this encounter
--- OUTSIDE RECORDS SUMMARY | 2025-07-18 14:43 | XMS_ITS | Encounter Summary ---
Author Organization [facility] Address [address] [place] [address] Care Team Providers Care Dobby Loom Fixer Name Role Phone Valeri Lerner Primary Care Provider +1- [phone] Encounter Details Date Type Department Care Team (Latest Contact Info) Description 05/30/2025 Lab Requisition [facility] - Main Lab [address] [facility] [employer] [place] [address] Macario Green MD [address] [place], [place] [id number] 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, CMS/HCC V28); Hyperlipidemia, unspecified; Chronic atrial fibrillation, unspecified (CMS/HCC V24, CMS/HCC V28); Essential (primary) hypertension; senior living (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 Social History Tobacco [...] (CMS/HCC V24, CMS/HCC V28) Essential (primary) hypertension 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 COMPLETE BLOOD COUNT Routine 05/30/2025 6:09 AM EDT 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, CMS/HCC V28) Hyperlipidemia, unspecified Chronic atrial fibrillation, unspecified ([facility] V24, [facility] V28) Essential (primary) hypertension senior living (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 BASIC METABOLIC PANEL Routine 05/30/2025 6:09 AM EDT Type 2 diabetes mellitus with diabetic polyneuropathy ([facility] V24, [facility] V28) Hyperlipidemia, unspecified Chronic atrial fibrillation, unspecified ([facility] V24, [facility] V28) Essential (primary) hypertension 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 INR 1.3 LAB COAGULATION METHOD 05/30/2025 11:[address] [facility] Blood Venous blood specimen / Unknown Venipuncture / Unknown 05/30/2025 6:09 AM EDT 05/30/2025 9:50 AM EDT Macario Green MD LAB BLOOD ORDERABLES Final R esult [facility] [address] [place] [address], * (ABNORMAL) Basic metabolic panel (05/30/2025 6:09 AM EDT) Sodium 140 133 - 145 mmol/L LAB CHEMISTRY METHOD 05/30/2025 11:[address] [facility] Potassium 4.1 3.5 - 5.5 mmol/L LAB CHEMISTRY METHOD 05/30/2025 11:[address] [facility] Chloride 102 96 - 110 mmol/L LAB CHEMISTRY METHOD 05/30/2025 11:[address] [facility] CO2 35(H) 21 - 32 mmol/L LAB CHEMISTRY METHOD 05/30/2025 11:24 AM [facility] Anion Gap 3 3 - 11 LAB CHEMISTRY METHOD 05/30/2025 11:24 AM [facility] Glucose 119(H) 70 - 100 mg/dL LAB CHEMISTRY METHOD 05/30/2025 11:24 AM [facility] BUN 26(H) 5 - 25 mg/dL LAB CHEMISTRY METHOD 05/30/2025 11:24 AM [facility] Creatinine 1.13(H) 0.50 - 1.10 mg/dL LAB CHEMISTRY METHOD 05/30/2025 11:24 AM [facility] eGFR 47(L) >=60 mL/min/1. 73m2 LAB CHEMISTRY METHOD 05/30/2025 11:24 AM [facility] Comment:Calculation based on the Chronic Kidney Disease Epidemiology Collaboration (CKD-EPI) equation refit without adjustment for race. BUN/Creatinine Ratio 23.0 LAB CHEMISTRY METHOD 05/30/2025 11:24 AM [facility] Calcium 9.5 8.5 - 10.5 mg/dL LAB CHEMISTRY METHOD 05/30/2025 11:24 AM [facility] Blood Venous blood specimen / Unknown Venipuncture / Unknown 05/30/2025 6:09 AM EDT 05/30/2025 9:50 AM EDT us Macario Green MD LAB BLOOD ORDERABLES Final R esult [facility] [address] [place] [address], * (ABNORMAL) Complete blood count (05/30/2025 6:09 AM EDT) WBC 7.2 4.8 - 10.8 K/mcL LAB HEMETOLOGY METHOD 05/30/2025 11:09 AM [facility] RBC 3.80 3.80 - 4.80 M/mcL LAB HEMETOLOGY METHOD 05/30/2025 11:09 AM [facility] Hemoglobin 11.7 11.5 - 16.0 g/dL LAB HEMETOLOGY METHOD 05/30/2025 11:09 AM [facility] Hematocrit 37.9 35.0 - 47.0 % LAB HEMETOLOGY METHOD 05/30/2025 11:09 AM [facility] MCV 99.5(H) 79.0 - 98.0 FL LAB HEMETOLOGY METHOD 05/30/2025 11:09 AM [facility] MCH 30.7 27.0 - 32.0 pcg LAB HEMETOLOGY METHOD 05/30/2025 11:09 AM [facility] MCHC 30.9(L) 32.0 - 37.0 g/dL LAB HEMETOLOGY METHOD 05/30/2025 11:09 AM [facility] RDW 14.6 11.0 - 15.0 % LAB HEMETOLOGY METHOD 05/30/2025 11:09 AM [facility] Platelets 166 130 - 400 K/mcL LAB HEMETOLOGY METHOD 05/30/2025 11:09 AM [facility] MPV 11.8(H) 7.0 - 11.0 FL LAB HEMETOLOGY METHOD 05/30/2025 11:09 AM [facility] NRBC 0.0 <1.0 % LAB HEMETOLOGY METHOD 05/30/2025 11:09 AM [facility] NRBC Absolute 0.00 <0.10 K/mcL LAB HEMETOLOGY METHOD 05/30/2025 11:09 AM [facility] Blood Venous blood specimen / Unknown Venipuncture / Unknown 05/30/2025 6:09 AM EDT 05/30/2025 9:50 AM EDT us Macario Green MD LAB BLOOD ORDERABLES Final R esult [facility] ([facility]) [facility] [address] [place] [address], documented in this encounter Visit Diagnoses Diagnosis Type 2 diabetes mellitus with diabetic polyneuropathy ([facility] V24, [facility] V28) Hyperlipidemia, unspecified Chronic atrial fibrillation, unspecified ([facility] V24, 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
--- OUTSIDE RECORDS SUMMARY | 2025-07-18 14:43 | XMS_ITS | Encounter Summary ---
Author Organization [facility] Address [address] [place] [address] Care Team Providers Care Television News Video Editor Name Role Phone Valeri Lerner Primary Care Provider +1- [phone] Encounter Details Date Type Department Care Team (Late st Contact Info) Description 06/11/2025 Lab Requisition [facility] - Main Lab [address] [place] [address] Macario Green MD [address] [place], [place] [id number] Unspecified atrial fibrillation (CMS/HCC V24, CMS/HCC V28) [...] LAB COAGULATION METHOD 06/12/2025 10:32 AM EST [facility] INR 1.9 LAB COAGULATION METHOD 06/12/2025 10:32 AM EST [facility] Blood Venous blood specimen / Unknown Venipuncture / Unknown 06/12/2025 7:54 AM EST 06/12/2025 10:16 AM EST us Macario Green MD LAB BLOOD ORDERABLES Final R esult [facility] ([facility]) [facility] [address] [place] [address], documented in this encounter Visit Diagnoses Diagnosis Unspecified atrial fibrillation (CMS/HCC V24, CMS/HCC V28) documented in this encounter Care Teams Television News Video Editor Relationship Specialty Start Date End Date Valrei Lerner DO [address] [place] [address] PCP - General 11/15/14 documented as of this encounter
--- OUTSIDE RECORDS SUMMARY | 2025-07-18 14:43 | XMS_ITS | Patient Health Record ---
[facility] Organization [facility] Address [address] [facility] [place] [address] Care Team Providers Care Atlassian Administrator Name Role Phone Valeri Lerner Primary Care Provider Keenan Lowery Unavailable [phone] Allergies Allergen (clinical drug ingredient) Drug/Non Drug [...] End Date Status Fluticasone Propionate Active Ipratropium Hydes Active Insulin Lispro Activ e Arestin Not-Taking [...] Problem Acquired hammer toe of right foot (1332088068194 105) Other hammer toe(s) (acquired), right foot (M20.41) Active confirmed Problem Type 2 diabetes mellitus with peripheral angiopathy (157187526) Type 2 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) Active confirmed Q7(A), Q8(2B), Q9(1B,2C) Problem Acquired hammer toe of left foot (2708471726263 103) Other hammer toe(s) (acquired), left foot (M20.42) Active confirmed Vital Signs Blood pressure diastolic 65 mm Hg 04/18/2025 Height 5 ft 5 in in 04/18/2025 Blood pressure systolic 140 mm Hg 04/18/2025 Weight 230 lbs 04/18/2025 BMI 38.27 kg/m2 04/18/2025 Procedures Procedure Date Ordered Date Performed Result Body Sit e 32031-SMAVBDA NAIL, 6 OR MORE 08/16/2024 N/A 95936-VQZP SKIN LESIONS, OVER 4 08/16/2024 N/A 40583-LMIEJHC NAIL, 6 OR MORE 01/10/2025 N/A 20760-MNBY SKIN LESIONS, OVER 4 01/10/2025 N/A 80000-WVZEGYD NAIL, 6 OR MORE 04/18/2025 N/A 41142-YIHK SKIN LESIONS, OVER 4 04/18/2025 N/A Encounters Encounter Location Date Provider Diagnosis [address] [address] 08/16/2024 Keenan Dyer Type 2 diabetes mellitus with diabetic peripheral angiopathy without gangrene E11.51 ; Tinea unguium B35.1 ; Pain in right toe(s) M79.674 ; Pain in left toe(s) M79.675 ; Other hammer toe(s) (acquired), left foot M20.42 ; Other hammer toe(s) (acquired), right foot M20.41 and Tinea pedis of both feet B35.[address] [address] 01/10/2025 Keenan Dyer Type 2 diabetes mellitus with diabetic peripheral angiopathy without gangrene E11.51 ; Other hammer toe(s) (acquired), right foot M20.41 ; Tinea unguium B35.1 ; Pain in right toe(s) M79.674 ; Pain in left toe(s) M79.675 ; Other hammer toe(s) (acquired), left foot M20.42 and Tinea pedis of both feet B35.[address] [address] 04/18/2025 Keenan Dyer Type 2 diabetes mellitus with diabetic peripheral angiopathy without gangrene E11.51 ; Tinea unguium B35.1 ; Pain in right toe(s) M79.674 ; Pain in left toe(s) M79.675 and Tinea pedis of both feet B35.[address] [facility] [address] [address] 01/10/2025 Keenan Dyer [facility] [address] [address] 01/10/2025 Keenan Dyer Assessments Encounter Date Diagnosis [...] Treatment Pending Test Test Name Order Date 81375-JTKJHIL NAIL, 6 OR MORE 10/27/2016 41418-QWGAKRC NAIL, 6 OR MORE 05/09/2017 07657-WCDKCVE NAIL, 6 OR MORE 08/21/2017 72101-NFOMLCF NAIL, 6 OR MORE 01/26/2017 93395-WOEKAAC NAIL, 6 OR MORE 01/29/2018 41728-DSCLCTZ NAIL, 6 OR MORE 07/09/2018 89612-KPDZVGF NAIL, 6 OR MORE 11/22/2018 34981-DSICTEI NAIL, 6 OR MORE 08/16/2024 88686-SUDQULA NAIL, 6 OR MORE 01/10/2025 05930-GLUUCVK NAIL, 6 OR MORE 04/18/2025 57849-ZFQESMD NAIL, 1-5 12/21/2015 74422-OCGAXOD NAIL, 1-5 05/30/2016 67521-OMBEXRF NAIL, 1-5 02/18/2015 19818-FUIXFPF NAIL, 1-5 05/27/2015 09225-ZPKUJKA NAIL, 1-5 09/23/2015 27289-Hbjdtrkk Plate 02/18/2015 36042-Htjufgee Plate 05/30/2016 03870-Yboiadxn Plate 12/21/2015 96678-Btgkvtqj Plate 09/23/2015 89226-Jgsluveq Plate 10/27/2016 37834-Hgopwvsi Plate 01/07/2019 69518-CRKI SKIN LESIONS, OVER 4 07/09/20 18 33508-GYXE SKIN LESIONS, OVER 4 05/09/20 17 07066-YREQ SKIN LESIONS, OVER 4 04/18/20 25 56258-UXLB SKIN LESIONS, OVER 4 11/23/19 19 25523-ONIQ SKIN LESIONS, OVER 4 01/11/20 25 00032-NUNZ SKIN LESIONS, OVER 4 08/16/19 25 57908-LMUR SKIN LESIONS, OVER 4 10/28/19 17 08747-TSFI SKIN LESIONS, OVER 4 01/27/20 17 09704-ZFOG SKIN LESIONS, OVER 4 08/21/19 18 41697-AWKF SKIN LESIONS, OVER 4 01/30/20 18 12985-ZHJE SKIN LESIONS, 2 TO 4 02/19/20 15 67928-QMPR SKIN LESIONS, 2 TO 4 05/27/20 15 37536-KKYK SKIN LESIONS, 2 TO 4 09/23/19 16 09863-MFYB SKIN LESIONS, 2 TO 4 12/21/19 16 66361-SQEN SKIN LESIONS, 2 TO 4 05/30/20 16 36155-Ajzg. Subungual Hematoma 9 N1332-XYGFPCGQ DYSTROPHIC NAILS ANY # G9682-ZJVRPTJP DYSTROPHIC NAILS ANY # Y8213-ITHPHNAN DYSTROPHIC NAILS ANY # N8995-CEYEQYWU DYSTROPHIC NAILS ANY # Next Appt Details Provider Name:Keenan Islas Manisha , 08/15/2025 12:45:00 PM, [address] [place], [address], Insurance Providers Payer Name Payer Address Payer Phone Subscriber Number Group Number Insured Name Patient Relationship to Insured Coverage Start Date Coverage End Date [facility] Medicare-[id number] [address] [address] [place] [address] [id number] Nikky Morgan Self - patient is the insured Medical (General) History Medical History History ICD Code Anxiety Arthritis asthma Back,Hip,and Knee pain Broken bones Diabetic Stroke Thyroid disorder blood clots Gout Heart disease Surgical History Surgery Date(Month/Year) cataract surgery left eye 11/09/2018 Hospitalization History Reason Date(Month/Year) [facility] for a cough 2018
--- OUTSIDE RECORDS SUMMARY | 2025-07-18 14:43 | XMS_ITS | Encounter Summary ---
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 [address] [place] [address], [place] [phone] documented in this encounter Visit Diagnoses Diagnosis senior living (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 Long-term (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 documented in this encounter Care Teams Cone Tender Relationship Specialty Start Date End Date Valeri Lerner DO [address] [place] [address] PCP - General 11/15/14 documented as of this encounter
--- OUTSIDE RECORDS SUMMARY | 2025-07-18 14:43 | XMS_ITS | Encounter Summary ---
Author Organization [employer] Address [address] [place] [address] [address] [place] [address] Care Team Providers Care Hand Mixer Name Role Phone Valeri Lerner DO Primary Care Provider Batsheva Gomez PharmD Unavailable [phone] Encounter Details Date Type Department Care Team (Latest Contact Info) Description 11/11/2020 Abstract [facility] CONVERSIONS Dental, Provider, DDS Social History Tobacco [...] 10:45 AM EST Office Visit [facility] MEDICINE [address] [place], [place] [phone] Ericka Sarmiento MD [address] [place], [place] [phone] documented as of this encounter Visit Diagnoses Not on filedocumented in this encounter Care Teams Hand Mixer Relationship Specialty Start Date End Date Valeri LernerDO [address] [place] [address] PCP - General Family Medicine 07/13/12 Batsheva Gomez PharmD [address] [place] [address] Pharmacist Internal Medicine 03/07/24 12/19/24 [employer] 12/08/23 documented as of this encounter
--- OUTSIDE RECORDS SUMMARY | 2025-07-18 14:43 | XMS_ITS | Encounter Summary ---
Author Organization [facility] Address [address] [place] [address] Care Team Providers Care Commercial Lines Insurance Agent Name Role Phone Valeri Lerner Primary Care Provider [phone]- [phone] Encounter Details Date Type Department Care Team (Latest Contact Info) Description 06/03/2025 Lab Requisition [facility] - Main Lab [address] [facility] [employer] [place] [address] Macario Green MD [address] [place] [address] Heart failure, unspecified (CMS/HCC V24, CMS/HCC V28); Essential (primary) hypertension; Paroxysmal atrial fibrillation (CMS/HCC V24, CMS/HCC V28); 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 Social History [...] atrial fibrillation (CMS/HCC V24, CMS/HCC V28) 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 documented in this encounter Results * (ABNORMAL) Prothrombin time with INR (06/03/2025 6:05 AM EST) Protime 17.0(H) 10.6 - 13.9 sec LAB COAGULATION METHOD 06/03/2025 10:43 AM EST [facility] LAB INR 1.4 LAB COAGULATION METHOD 06/03/2025 10:43 AM EST [facility] LAB Blood Venous blood specimen / Unknown Venipuncture / Unknown 06/03/2025 6:05 AM EST 06/03/2025 9:13 AM EST us Macario Green MD LAB BLOOD ORDERABLES Final R esult [facility] [address] [place] [address], documented in this encounter Visit Diagnoses Diagnosis Heart failure, unspecified (CMS/[facility] V24, [facility] V28) Heart failure, unspecified Essential (primary) hypertension Unspecified essential hypertension Paroxysmal atrial fibrillation ([facility] V24, [facility] V28) Atrial fibrillation prison (current) use of anticoagulants Long-term (current) use of anticoagulants documented in this encounter Care Teams Commercial Lines Insurance Agent Relationship Specialty Start Date End Date Valeri Lerner DO [address] [place] [address] PCP - General 11/15/14 documented as of this encounter
--- OUTSIDE RECORDS SUMMARY | 2025-07-18 14:43 | XMS_ITS | Encounter Summary ---
Author Organization [facility] Address [address] [place] [address] Care Team Providers Care Poacher Operator Name Role Phone Valeri Lerner Primary Care Provider [phone]- [phone] Encounter Details Date Type Department Care Team (Late st Contact Info) Description 07/03/2025 Lab Requisition [facility] - Main Lab [address] [place] [address] Kymberly Horne MD [address] [phone] Chronic embolism and thrombosis of unspecified vein [...] LAB BLOOD ORDERABLES Fin al Result [facility] [address] [place] [address], documented in this encounter Visit Diagnoses Diagnosis Chronic embolism and thrombosis of unspecified vein documented in this encounter Care Teams Poacher Operator Relationship Specialty Start Date End Date Valeri Lerner DO [address] [place] [address] PCP - General 11/15/14 documented as of this encounter
== END ==
LOC: HO.CARD 12:55
PROVIDERS: PCP Family Medicine; Visit Provider Nurse Practitioner Family
DX: I48.91 Unspecified atrial fibrillation (principal)
CPT/HCPCS: 93242

== ENCOUNTER → 2025-07-18 12:59 | Outpatient (BNV) | payer OTHER, SELFPAY | PROVIDERS: PCP Family Medicine; Visit Provider Internal Medicine | DX: I48.91 Unspecified atrial fibrillation (principal) | CPT/HCPCS: 93244 ==

== ENCOUNTER 2025-07-21 09:50 | Outpatient (REF) | payer OTHER, SELFPAY ==
[2025-07-21 10:48] LABS: INTERNATIONAL NORM RATIO 2.8 (0.9-1.1); Prothrombin Time 33.9 SEC (11.2-13.5)
--- OUTSIDE RECORDS SUMMARY | 2025-07-21 11:35 | XMS_ITS | Clinical Summary ---
Author Organization [employer] Address [address] [place] [address] 7t [place] [address] Care Team Providers Care Mineral Economist Name Role Phone Valeri Lerner DO Primary [...] each 11 023 Active Continuous Blood Gluc Circular Sawyer Stone (Serveron Jason [address] [place]) device Scan sensor every 8 hours 1 [...] with long-term current use of insulin ([facility]) TAKE 1 TABLET BY MOUTH TWICE DAILY [...] DAILY DIRECTED Active white petrolatum (Vaseline) gelIndications:Ac [place] cystitis with hematuria Apply topically if needed [...] EST 025 2025 Active Pentips Generic Pen [place] 32G X 4 MM misc USE DIRECTED [...] MORNING AND EVENING 90 tablet 1 Active warfarin (Coumadin) 5 MG tablet Take [...] EVENING 90 tablet 1 025 2024 Discontinued metoprolol succinate XL (Toprol-XL) 25 MG 24 hr tablet 2024 Discontinued warfarin (Coumadin) 2 MG tablet TAKE 3 TABLETS (6MG) BY MOUTH EVERY EVENING FOR 3 DAYS 2024 Discontinued Active Problems Problem Noted Date [...] benefit from more structured support, daughter working full time paramedic, she and brother are primary care givers, nephew was assisting with medications and home care but no longer working as it integration architect, 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 Tower Supervisor list provided for daughter, Referral to vna [...] 015 Overview (01/26/2024): Seen by Dr Bradshaw, [facility] cards. Assessment & Plan (01/26/2024 [...] previous one of 9 on admission to [facility]. No change in meds. 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 Tylenol [...] Department Care Team Description 07/15/2025 Patient Outreach [facility] [address] [facility] [place] [address] Valeri Lerner DO Transition Of Care (Tcm) (HDF scheduled. ) 07/02/2025 Refill [facility] [address] [facility] [place] [address] Valeri Lerner DO Paroxysmal atrial fibrillation ([facility]) ([facility]) 06/30/2025 Refill [facility] [address] [facility] [place] [address] Valeri Lerner DO 06/26/2025 Orders Only [facility] External Provider, [facility] 06/23/2025 Anticoagulation - Warfarin Visit [facility] [address] [facility] [place] [address] Michaela Rollins, SHIRLEY Paroxysmal atrial fibrillation ([facility]/H[facility]) ([facility]) 06/22/2025 Refill [facility] [address] [facility] [place] [address] Valeri Lerner DO Paroxysmal atrial fibrillation ([facility]) ([facility]) 06/18/2025 Anticoagulation - Warfarin Visit [facility] [address] [facility] [place] [address] Michaela Rollins, RN Paroxysmal atrial fibrillation ([facility]) ([facility]) 06/13/2025 Telephone [facility] [address] [facility] [place] [address] Valeri Lerner DO VNA services 06/13/2025 Patient Outreach [facility] [address] [facility] [place] [address] Valeri Lerner DO Transition Of Care (Tcm) (HDF scheduled) 06/13/2025 Telephone [facility] [address] [facility] [place] [address] Valeri Lerner DO Hospital Follow-up 06/09/2025 Patient Outreach [facility] [address] [place], [place] [phone] Valeri Lerner DO Pre-visit Planning (HDF scheduled ) 06/06/2025 11:30 AM EST Office Visit [facility] OPTOMETRY [address] [place] [address] Ai Baron, OD History of nonproliferative diabetic retinopathy (Primary Dx); Pseudophakia of both eyes; Presbyopia of both eyes 06/06/2025 Telephone [facility] [address] [place] [address] Valeri Lerner DO INR tracking 06/06/2025 Travel 05/30/2025 Refill [facility] [address] [place] [phone] Valeri Lerner DO 05/28/2025 Patient Outreach [address] [address] Valeri Lerner DO Transition Of Care (Tcm) (HDF scheduled and SDOH screening completed on 02/17/25) 05/28/2025 Orders Only GENERIC EXTERNAL DATA DEPARTMENT Provider, Generic External Data 05/27/2025 Orders Only GENERIC EXTERNAL DATA DEPARTMENT Provider, Generic External Data 05/23/[address] [address] Valeri Lerner DO FYI 05/21/[address] [address] Valeri Lerner DO FYI 05/13/2025 Anticoagulation - Warfarin Visit [address] [address] Michaela Rollins, RN Paroxysmal atrial fibrillation ([facility]) ([facility]) 05/13/[address] [address] Valeri Lerner DO 05/06/2025 Anticoagulation - Warfarin Visit [address] [address] Michaela Rollins, RN Paroxysmal atrial fibrillation ([facility]) ([facility]) 05/01/2025 Refill [facility] WALK-IN [facility] [address] [place] [address] [facility] Hypomagnesemia 04/24/2025 Refill [facility] [address] [place] [address] Valeri Lerner DO from Last 3 Months [...] Description 08/05/2025 10:45 AM EST Office Visit [facility] [address] [place] [address] Ericka Sarmiento MD [address] [place] [address] Health Maintenance Due Date Last Done Comments [...] Weekly blood pressure task No [facility] PharmDarion Weekly blood pressure task Care Plan Weekly blood pressure task No [facility] PharmD Patient has chronic kidney disease Care Plan Patient has chronic kidney disease No [facility] PharmD Patient has chronic kidney disease Care Plan Patient has chronic kidney disease No [facility], PharmD Weekly blood pressure task Care Plan Weekly blood pressure task No Valeri Renner LPN Weekly blood pressure task Care Plan Weekly blood pressure task No Valeri Renner PERSONAL LINES ACCOUNT EXECUTIVE Patient has chronic kidney disease Care Plan Patient has chronic kidney disease No Valeri Renner PERSONAL LINES ACCOUNT EXECUTIVE Patient has chronic kidney disease Care Plan [...] has chronic kidney disease No Uma Apodacailet Procedures Procedure Name Priority Date/Time Associated Diagnosis Comments PROTHROMBIN TIME-INR Routine 07/21/2025 10:18 AM EST Paroxysmal atrial fibrillation (CMS/HCC) (HCC) US RENAL COMPLETE Routine 07/11/2025 1:1 5 [...] 10:18 PM EDT BLOOD CULTURE (SECOND) Routine 05/27/2025 10:18 PM EDT BLOOD CULTURE (FIRST) Routine [...] hyperglycemia, with long-term current use of insulin ([facility]) AMB REFERRAL TO PODIATRY Routine 01/10/2025 Type 2 diabetes mellitus with hyperglycemia, with long-term current use of insulin ([facility]) ALBUMIN, RANDOM URINE W/CREATININE Routine 08/31/2023 4:16 PM EST Type 2 diabetes mellitus with hyperglycemia, with long-term current use of insulin ([facility]) LIPID PANEL, STANDARD Routine 08/31/2023 4:11 PM EST Type 2 diabetes mellitus with hyperglycemia, with long-term current use of insulin ([facility]) from Last 3 Months or Most Recently Relevant to Health Maintenance Results * (ABNORMAL) Prothrombin Time-INR (07/21/2025 10:18 AM EST) Only the most recent of8 resultswithin the time period is included. Prothrombin Time 33.9(H) 11.2 - 13.5 SEC [facility] INTERNATIONAL NORM RATIO 2.8(H) 0.9 - 1.1 [facility] Comment:INTERNATIONAL NORMAL IZED RATIO (INR) REFERENCE RANGES Reference RangeFor patients not on anticoagulant therapy: 0.9 - 1.1INR ranges for oral anticoagulanttherapy:For prevention and treatment of venous thrombosis and pulmonary embolism: 2.0 - 3.0For acute myocardial infarction with aspirin therapy: 2.0 - 3.0For acute myocardial infarction without aspirin therapy: 3.0 - 4.0For patients with mechanical prosthetic heart valves: 2.5 - 3.5 Blood Venous blood specimen / Unknown 07/21/2025 10:18 AM EST 07/21/2025 10:18 AM EST us Valeri Lerner DO LAB BLOOD ORDERABLES Final R esult Performing Organization Address City/State/RUST Co de Phone Number [facility] [address] [place] [phone] * US Renal Complete (07/11/2025 1:15 PM EST) Anatomical Region Laterality Modality Kidney Ultrasound 07/11/2025 1:15 PM EST Narrative 07/11/2025 1:46 PM EST [address] [address] Ultrasound Report Signed Patient: Nikky Guevara MR#: [id number] : 1935 Acct:[id number] Age/Sex: 89 / F ADM Date: 07/11/25 Loc: HO.US Attending Dr: Saramd Loza MD Ordering Physician: Sarmad Loza MD Date of Service: 07/11/25 Procedure(s): US renal BI Accession Number(s): [id number] cc: Sarmad Loza MD; Valeri Lerner DO [...] 07/11/25 1343 DD/ 1315 TD/TT: 07/11/25 1325 Rotary Machine Operator: Procedure Note Donotuseinterpreter, Image - 07/11/2025 [place] [address] Ultrasound Report Signed Patient: Cassie Guevara#: [id number] : 6Acct:[id number] Age/Sex: 89 / FADM Date: 07/11/25 Loc: HO.US Attending Dr: Sarmad Loza MD Ordering Physician: Sarmad Loza MD Date of Service: 07/11/25 Procedure(s): US renal BI Accession Number(s): [id number] cc: Sarmad Loza MD; Valeri Lerner DO [...] 07/11/25 1343 DD/ 1315 TD/TT: 07/11/25 1325 Rotary Machine Operator: us [facility] External Provider IMG US PROCEDURES Final Result * (ABNORMAL) High Sensitivity Troponin I (06/26/2025 4:50 PM EST) Pathologist [facility] TROPONIN I HIGH SENSITIVITY 25.2(H) <3.5 - 17.0 ng/L [facility] Comment:The [place] high sens itivity Troponin-I results should beused in conjunction with other diagnostic information suchas ECG, clinical observations and information, and patientsymptoms to aid in the diagnosis of [place]. 06/26/2025 4:50 PM EST 06/26/2025 5:04 PM EST Generic External Data Provider LAB BLOOD ORDERAB LES Final Result [facility] [address] [place] [phone] * XR Chest 1 View (06/26/2025 4:16 PM EST) Only the most recent of2 resultswithin the time period is included. Anatomical Region Laterality Modality Chest Radiographic Isabella ging 06/26/2025 4:16 PM EST Narrative 06/26/2025 4:17 PM EST [address] [address] XRay Report Signed Patient: Nikky Guevara MR#: [id number] : 1935 Acct:[id number] Age/Sex: 89 / F ADM Date: 06/26/25 Loc: HO.ED Attending Dr: Ordering Physician: Neha Roman Date of Service: 06/26/25 Procedure(s): XR chest 1V Accession Number(s): [id number] cc: Valeri Lerner DO; Neha Roman Reason [...] OV> 06/26/25 1617 DD/ 1616 TD/TT: 06/26/25 1616 Rotary Machine Operator: Procedure Note Donotuseinterpreter, Image - 06/26/[address] [address] XRay Report Signed Patient: Ariane GuevaraR#: [id number] : 1935cct:[id number] Age/Sex: 89 / FADM Date: 06/26/25 Loc: .ED Attending Dr: Ordering Physician: Neha Roman Date of Service: 06/26/25 Procedure(s): XR chest 1V Accession Number(s): [id number] cc: Valeri Lerner DO; Neha Roman Reason [...] by Crystal Dumont MD in OV> 06/26/25 161 DD/ 15 TD/TT: 06/26/25 161 Rotary Machine Operator: [facility] External Provider IMG XR PROCEDURES Edited Result - Final * (ABNORMAL) Urinalysis, Complete, with Reflex to Culture (06/26/2025 2:58 PM EST) Only the most recent of2 resultswithin the time period is included. Color Urine Yellow [facility] Appearance Urine Clear [facility] PH 6.5 5.0 - 9.0 [facility] Glucose Urine UA Negative Negative mg/dL [facility] Urine Blood Trace(A) Negative [facility] Specific [place] - Urine 1.010 1.005 - 1.025 [facility] Urine Protein 30 (1+)(A) Neg-Trace mg/dL [facility] Urine Ketones Negative Negative mg/dL [facility] Nitrite Urine Negative Negative [facility] Leukocyte Esterase Urine Negative Negative [facility] RBC Urine 0-2 0 - 2 /HPF [facility] Urine WBC 0-5 0 - 5 /HPF [facility] Urine Squamous Epithelial Cell 0-2 0 - 2 /HPF [facility] Urine Bacteria None Seen None Seen [facility] Hyaline Casts, Urine 0-2 0 - 2 /LPF [facility] 06/26/2025 2:58 PM EST 06/26/2025 3:01 PM EST Narrative [facility] - 06/26/2025 3:12 PM EST Urine, Clean Catch us Generic External Data Provider LAB URINE ORDERAB LES Final Result Performing Organization Address City/[facility]/ZIP Co de Phone Number [facility] [address] [place] [phone] * (ABNORMAL) Urinalysis w/reflex microscopic (06/26/2025 2:58 PM EST) Color Urine Yellow [facility] Appearance Urine Clear [facility] PH 6.5 5.0 - 9.0 [facility] Glucose Urine UA Negative Negative mg/dL [facility] Urine Blood Trace(A) Negative [facility] Specific [place] - Urine 1.010 1.005 - 1.025 [facility] Urine Protein 30 (1+)(A) Neg-Trace mg/dL [facility] Urine Ketones Negative Negative mg/dL [facility] Nitrite Urine Negative Negative [facility] Leukocyte Esterase Urine Negative Negative [facility] 06/26/2025 2:58 PM EST 06/26/2025 3:01 PM EST Narrative [facility] - 06/26/2025 3:07 PM EST Urine, Clean Catch us Generic External Data Provider LAB URINE ORDERAB LES Final Result Performing Organization Address City/[facility]/ZIP Co de Phone Number [facility] [address] [place] [phone] * CT Abdomen Pelvis w/o Contrast (06/26/2025 1:34 PM EST) Anatomical Region Laterality Modality Body, Pelvis, Abdomen Computed T omography 06/26/2025 1:34 PM EST Narrative 06/26/2025 1:35 PM EST [address] [address] [address] Scan Report Signed Patient: Nikky Guevara MR#: [id number] : 1935 Acct:[id number] Age/Sex: 89 / F ADM Date: 06/26/25 Loc: HO.ED Attending Dr: Ordering Physician: Neha Roman Date of Service: 06/26/25 Procedure(s): CT abdomen pelvis wo IV con Accession Number(s): [id number] cc: Valeri Lerner DO; Neha Roman Report Number: [id number]: Total DLP = 1078.00 mGy-cm Reason for [...] 06/26/25 1335 DD/ 1334 TD/TT: 06/26/25 1334 Rotary Machine Operator: Procedure Note Alexsanderter, Image - 06/26/[address] [place] [address] [address] Scan Report Signed Patient: Cassie Guevara#: [id number] : 1935cct:[id number] Age/Sex: 89 / FADM Date: 06/26/25 Loc: HO.ED Attending Dr: Ordering Physician: Neha Roman Date of Service: 06/26/25 Procedure(s): CT abdomen pelvis wo IV con Accession Number(s): [id number] cc: Valeri Lerner DO; Neha Roman Report Number: [id number]: Total DLP = 1078.00 mGy-cm Reason for [...] OV> 06/26/25 1335 DD/ 1334 TD/TT: 06/26/25 133 Rotary Machine Operator: us [facility] External Provider IMG CT PROCEDURES Final Result * (ABNORMAL) Glucose, Whole Blood (05/28/2025 7:16 AM EDT) Only the most recent of2 resultswithin the time period is included. Glucose, Whole Blood 117(H) 60 - 115 mg/dL [facility] Comment:METER #: [id number] 05/28/2025 7:16 AM EDT 05/28/2025 7:20 AM EDT Generic External Data Provider LAB BLOOD ORDERAB LES Final Result Performing Organization Address City/[facility]/ZIP Co de Phone Number [facility] [address] [place] [phone] * Blood Culture (First) (05/27/2025 10:18 PM EDT) Blood Venous blood specimen / Unknown 05/27/2025 10:18 PM EDT 05/27/2025 10:23 PM EDT Comment:Blood Narrative [facility] - 06/02/2025 12:24 AM EST Blood Culture (First) No growth after 5 days. Specimen Source: Blood Generic External Data Provider LAB MICROBIOLOGY - GENERAL ORDERABLES Final Result Performing Organization Address City/[facility]/ZIP Co de Phone Number [facility] [address] [place] [phone] * Blood Culture (Second) (05/27/2025 10:18 PM EDT) Blood Venous blood specimen / Unknown 05/27/2025 10:18 PM EDT 05/27/2025 10:28 PM EDT Comment:Blood Narrative [facility] - 06/02/2025 12:28 AM EST Blood Culture (Second) No growth after 5 days. Specimen Source: Blood Generic External Data Provider LAB MICROBIOLOGY - GENERAL ORDERABLES Final Result Performing Organization Address [facility]/ZIP Co de Phone Number [facility] [address] [place] [phone] * Lactic Acid (05/27/2025 10:18 PM EDT) Pathologist [facility] Lactic Acid 0.8 0.5 - 2.0 mmol/L [facility] 05/27/2025 10:1 8 PM EDT 05/27/2025 10:23 PM EDT Generic External Data Provider LAB BLOOD ORDERAB LES Final Result Performing Organization Address [facility]/[place]UST Co de Phone Number [facility] [address] [place] [phone] * Influenza A B2 ID NOW (Crowe) (05/27/2025 6:11 PM EDT) IDNOW SERIAL# [id number] [facility] Influenza A Negative Negative [facility] Influenza B2 Negative Negative [facility] Influenza A B2 Note See Note [facility] Comment:The Crowe ID NOW In fluenza [...] GENERAL ORDERABLES Final Result Performing Organization Address [facility]/ZIP Co de Phone Number [facility] [address] [place] [phone] * COVID-19 ID NOW (CROWE) (05/27/2025 6:11 PM EDT) IDNOW SERIAL# [id number] [facility] COVID-19 TEST Negative Negative [facility] COVID-19 NOTE See Note [facility] Comment: Results are for the identification of SARS-CoV2 RNA. TheSARS-CoV2 RNA is generally detectable in respiratory samplesduring the acute phase of infection. Positive results areindicative of the presence of SARS-CoV-2 RNA; clinicalcorrelation with patient history and other diagnosticinformation is necessary to determine patient infectionstatus. Positive results do not rule out bacterial infectionor co- infection with other viruses.Testing facilities within the [facility] and [facility] are required to report all positive [...] GNOSTICS ORDERABLES Final Result Performing Organization Address City/[facility]/ZIP Co de Phone Number [facility] [address] [place] [phone] * (ABNORMAL) CBC auto differential (05/27/2025 6:11 PM EDT) White Blood Count 10.8 4.8 - 10.8 X10*3/uL [facility] Red Blood Count 3.95(L) 4.20 - 5.50 X10*6/uL [facility] Hemoglobin 12.2 12.0 - 16.0 g/dl [facility] Hematocrit 38.1 37.0 - 47.0 % [facility] Mean Corpuscular Volume 96.5 80.0 - 98.0 fL [facility] Mean Corpuscular Hemoglobin 30.9 27.0 - 33.0 pg [facility] Mean Corpuscular HGB Conc 32.0 31.0 - 35.0 g/dl [facility] Red Cell Distribution Width 14.6 11.0 - 16.0 % [facility] Platelet Count 179 160 - 400 X10*3/uL [facility] Mean Platelet Volume 11.3 9.4 - 12.3 fL [facility] Neutrophils Percent Auto 78.5(H) 45 - 73 % [facility] Imm Gran Pct Auto 0.4 0.0 - 0.4 % [facility] Lymphocytes Percent Auto 11.9(L) 20 - 40 % [facility] Monocytes Percent Auto 6.0 2 - 11 % [facility] Eosinophils Percent Auto 2.9 0 - 4 % [facility] Basophils Percent Auto 0.3 0 - 2 % [facility] NRBC Pct Auto 0.0 0.0 - 0.2 /100WBC [facility] Neutrophils Absolute Auto 8.4(H) 2.0 - 8.3 x10*3/uL [facility] Imm Gran Abs Auto 0.04(H) 0.00 - 0.03 X10*3/uL [facility] Lymphocytes Absolute Auto 1.3 1.2 - 4.9 X10*3/uL [facility] Monocytes Absolute Auto 0.7 0.1 - 1.2 X10*3/uL [facility] Eosinophils Absolute Auto 0.3 0.0 - 0.4 X10*3/uL [facility] Basophils Absolute Auto 0.0 0.0 - 0.2 X10*3/uL [facility] NRBC Abs Auto 0.000 0.0 - 0.012 X10*3/uL [facility] 05/27/2025 6:11 PM EDT 05/27/2025 6:15 PM EDT us Generic External Data Provider LAB BLOOD ORDERAB LES Final Result [facility] [address] [place] [phone] * (ABNORMAL) Comprehensive Metabolic Panel (05/27/2025 6:11 PM EDT) Sodium 139 135 - 145 mmol/L [facility] Potassium 4.5 3.3 - 5.1 mmol/L [facility] Chloride 98 96 - 108 mmol/L [facility] Carbon Dioxide 34(H) 22 - 29 mmol/L [facility] Anion Gap 12 12 - 20 [facility] Urea Nitrogen (BUN) 38(H) 9 - 16 mg/dL [facility] Creatinine, Serum 1.24 0.5 - 1.4 mg/dL [facility] Creatinine Clr Calc Pharmacy 32.9 [facility] Comment:Provided height and weight: 157.48 cm,94.6 kg.eGFR (calculated from the MDRD study equation) and eCrCl(calculated from the Cockcroft-Gault equation) are based ondifferent parameters and may not yield comparable results.If eCrCl result is absurd, please check patient'sheight/weight. Estimated Glomerular Filt Rate 41 [facility] Comment:Chronic Kidney Disea se: Estimated GFR < 60 mL/min/1.17b5Rxznce Kidney Disease: Estimated GFR < 15 mL/min/1.73m2 Glucose 219(H) 60 - 115 mg/dL [facility] Calcium 9.9 8.4 - 10.2 mg/dL [facility] Bilirubin, Total 0.6 0.0 - 1.0 mg/dL [facility] Aspartate Amino Transferase 28 5 - 31 U/L [facility] Alanine Aminotransferase 22 0 - 31 U/L [facility] Total Protein 7.9 6.5 - 8.0 g/dL [facility] Albumin Level 4.0 3.5 - 5.0 g/dL [facility] Alkaline Phosphatase 122(H) 39 - 117 U/L [facility] 05/27/2025 6:11 PM EDT 05/27/2025 6:15 PM EDT Generic External Data Provider LAB BLOOD ORDERAB LES Final Result Performing Organization Address [facility]/[place] Co de Phone Number [facility] [address] [place] [phone] * Culture, Urine, Routine (05/27/2025 12:00 AM EDT) Urine Urine specimen obtained by clean catch procedure / Unknown 05/27/2025 05/27/2025 Comment:UACC Narrative [facility] - 05/29/2025 10:36 AM EDT Urine Culture Report Result Urine Culture 10,000 to 50,000 cfu/ml Urine Culture Mixed bacterial edilson characteristic of Urine Culture urogenital contamination. Specimen Source: Urine clean catch Generic External Data Provider LAB MICROBIOLOGY - GENERAL ORDERABLES Final Result Performing Organization Address City/[facility]/ZIP Co de Phone Number [facility] [address] [place] [phone] * (ABNORMAL) POCT HGB A1C (03/07/2025 1:53 PM EDT) Hemoglobin A1C 7.6(A) 4.0 - 5.7 % QC Media Lot # [id number] Lot# Expiration Date Blood 03/07/2025 1:53 PM EDT [facility] [employer] HEADER POINT OF CARE TEST ENTER/EDIT ORDERABLES Final Result * Referral to Podiatry (01/10/2025) Valeri Lerner DO OUTPATIENT REFERRAL ORDERABL ES Final Result * (ABNORMAL) Albumin, Random Urine W/Creatinine (08/31/2023 4:16 PM EST) Creatinine, Urine 25.77 mg/dL [facility] Microalbumin Urine 31.0 mg/L [facility] Microalbum Creatinine Ratio Ur 120.2(H) <30 ug/mg cr [facility] Comment:Albumin/Creatinine R atio Reference Ranges: Normal: < 30 ug/mg creatinine Microalbuminuria: 30 - 300 ug/mg creatinineClinical Albuminuria: > 300 ug/mg creatinine Urine (Urine, Random) 08/31/2023 4:16 PM EST 08/31/2023 5:27 PM EST Valeri Lerner DO LAB URINE ORDERABLES Final R esult [facility] [address] [place] [phone] * (ABNORMAL) Lipid Panel, Standard (08/31/2023 4:11 PM EST) Triglycerides 349(H) <150 mg/dL [facility] Comment:Desirable Triglyceri de: less than 150 mg/dLBorderline High Triglyceride 150-199 mg/dLHigh Triglyceride: 200-499 mg/dLVery High Triglyceride: greater than or equal to 5OO mg/dL Cholesterol 149 <200 mg/dL [facility] Comment:Desirable Cholestero l: less than 200 mg/dLBorderline High Cholesterol: 200-239 mg/dLHigh Cholesterol: greater than 239 mg/dL LDL Cholesterol Calculated 41 <100 mg/dL [facility] Comment:Desirable LDL: less than 100 mg/dLNear Optimal/Above Optimal LDL: 110- 129 mg/dLBorderline High LDL: 130-159 mg/dLHigh LDL: 160-189 mg/dLVery High LDL: greater than or equal to 190 mg/dL HDL Cholesterol 39(L) >40 mg/dL [facility] Comment:Desirable HDL: great er than 40 mg/dL Note: This HDL assay may give artificially low results in patients with liver disease. Blood Venous blood specimen / Unknown 08/31/2023 4:11 PM EST 08/31/2023 5:27 PM EST us Valeri Lerner DO LAB BLOOD ORDERABLES Final R esult [facility] [address] [place], [place] [phone] from Last 3 Months or Most [...] Patient has chronic kidney disease 07/15/[address] [place] [address] [place] [address] STANDARD [facility] DUAL COMPLETE Care Teams Mineral Economist Relationship Specialty Start Date End Date Valeri Lerner DO [address] [place] [phone] PCP - General Family Medicine 07/13/12 [email or web address] 12/08/23
--- OUTSIDE RECORDS SUMMARY | 2025-07-21 11:36 | XMS_ITS | Encounter Summary ---
Author Organization [facility] Address [address] [place] [address] Care Team Providers Care Pickers Material Handlers Name Role Phone Valeri Lerner Primary Care Provider +1- [phone] Encounter Details Date Type Department Care Team (Late st Contact Info) Description 11/01/2024 Lab Requisition [facility] - Main Lab [address] [place] [address] Amrita Polanco MD [address] [place] [phone] Heart failure, unspecified (CMS/HCC V24, CMS/HCC V28) [...] BLOOD ORDERABLES Final Resu lt [facility] [address] [place] [address], documented in this encounter Visit Diagnoses Diagnosis Heart failure, unspecified (CMS/HCC V24, CMS/HCC V28) Heart failure, unspecified documented in this encounter Care Teams Pickers Material Handlers Relationship Specialty Start Date End Date Valeri Lerner DO [address] [place] [address] PCP - General 11/15/14 documented as of this encounter
--- OUTSIDE RECORDS SUMMARY | 2025-07-21 11:36 | XMS_ITS | Clinical Summary ---
Author Organization [address] Address [address] [place] [address] Phone Care Team Providers Care Pull Over Machine Operator Name Role Phone CarlynValeri townsend Primary Care Provider +1- [phone] Encounters Date Type Department Care Team Description 07/12/2025 Lab Requisition [facility] [address] [place] [phone] Kymberly Horne MD Essential (primary) hypertension; Unspecified atrial fibrillation (CMS/HCC V24, CMS/HCC V28); Heart failure, unspecified (CMS/HCC V24, CMS/HCC V28); Chronic embolism and thrombosis of unspecified vein 07/04/2025 Lab Requisition [facility] [address] [place] [phone] Kymberly Horne MD Essential (primary) hypertension; Unspecified atrial fibrillation (CMS/HCC V24, CMS/HCC V28); Heart failure, unspecified (CMS/HCC V24, CMS/HCC V28); Chronic embolism and thrombosis of unspecified vein 07/03/2025 Lab Requisition [facility] [address] [place] [phone] Kymberly Horne MD Chronic embolism and thrombosis of unspecified vein 07/02/2025 Lab Requisition [facility] [address] [place] [phone] Kymberly Horne MD Essential (primary) hypertension; Unspecified atrial fibrillation (CMS/HCC V24, CMS/HCC V28); Type 2 diabetes mellitus with unspecified complications (CMS/HCC V24, CMS/HCC V28) 06/11/2025 Lab Requisition [facility] [address] [place] [phone] Macario Green MD Unspecified atrial fibrillation (CMS/HCC V24, CMS/HCC V28) 06/10/2025 Lab Requisition [facility] [address] [place] [phone] Macario Green MD Unspecified atrial fibrillation (CMS/HCC V24, CMS/HCC V28) 06/09/2025 Lab Requisition [facility] [address] [place] [phone] Macario Green MD Unspecified atrial fibrillation ([facility]/HCC V24, [facility]/HCC V28) 06/07/2025 Lab Requisition [facility] [address] [place] [phone] Macario Green MD 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 06/05/2025 Lab Requisition [facility] [address] [place] [phone] Macario Green MD Unspecified atrial fibrillation (CMS/HCC V24, CMS/HCC V28) 06/04/2025 Lab Requisition [facility] [address] [place] [phone] Macario Green MD Paroxysmal atrial fibrillation ([facility]/HCC V24, [facility]/HCC V28) 06/03/2025 Lab Requisition [facility] [address] [place] [phone] Macario Green MD Heart failure, unspecified (CMS/HCC V24, [facility]/HCC V28); Essential (primary) hypertension; Paroxysmal atrial fibrillation (CMS/HCC V24, CMS/HCC V28); 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 06/02/2025 Lab Requisition [facility] [address] [place] [phone] Macario Green MD jail (current) use of anticoagulants 05/30/2025 Lab Requisition [facility] - Main Lab [address] [facility] [place] [phone] Macario Green MD Type 2 diabetes mellitus with diabetic polyneuropathy ([facility] V24, [facility] V28); Hyperlipidemia, unspecified; Chronic atrial fibrillation, unspecified ([facility] V24, [facility] V28); Essential (primary) hypertension; 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 from Last 3 [...] WITH INR Routine 06/07/2025 5:28 AM EST jail (current) use of anticoagulants PROTHROMBIN TIME WITH INR Routine 06/05/2025 7:00 AM EST Unspecified atrial fibrillation (CMS/HCC V24, CMS/HCC V28) PROTHROMBIN TIME WITH INR Routine 06/04/2025 5:27 AM EST Paroxysmal atrial fibrillation (CMS/HCC V24, CMS/HCC V28) PROTHROMBIN TIME WITH INR Routine 06/03/2025 6:05 AM EST Heart failure, unspecified (CMS/HCC V24, CMS/HCC V28) Essential (primary) hypertension Paroxysmal atrial fibrillation (CMS/HCC V24, CMS/HCC V28) 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 PROTHROMBIN TIME WITH INR Routine 06/02/2025 6:24 AM EST 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 PROTHROMBIN TIME WITH INR Routine 05/30/2025 6:09 AM EDT 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, CMS/HCC V28) Hyperlipidemia, unspecified Chronic atrial fibrillation, unspecified (CMS/HCC V24, CMS/HCC V28) Essential (primary) hypertension 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 BASIC METABOLIC PANEL Routine 05/30/2025 6:09 AM EDT Type 2 diabetes mellitus with diabetic polyneuropathy ([facility]/HCC V24, [facility]/HCC V28) Hyperlipidemia, unspecified Chronic atrial fibrillation, unspecified (CMS/HCC V24, CMS/HCC V28) Essential (primary) hypertension jail (current) use of anticoagulants COMPLETE BLOOD COUNT Routine 05/30/2025 6:09 AM EDT Type 2 diabetes mellitus with diabetic polyneuropathy ([facility]/HCC V24, [facility] V28) Hyperlipidemia, unspecified Chronic atrial fibrillation, unspecified ([facility]/HCC V24, CMS/HCC V28) Essential (primary) hypertension jail (current) use of anticoagulants from Last 3 Months Results * (ABNORMAL) CBC auto differential (07/14/2025 4:44 AM EST) [facility] WBC 9.4 4.8 - 10.8 K/mcL LAB HEMETOLOGY METHOD 07/14/2025 9:47 AM [facility] RBC 3.90 3.80 - 4.80 M/mcL LAB HEMETOLOGY METHOD 07/14/2025 9:47 AM [facility] Hemoglobin 11.8 11.5 - 16.0 g/dL LAB HEMETOLOGY METHOD 07/14/2025 9:47 AM [facility] Hematocrit 37.5 35.0 - 47.0 % LAB HEMETOLOGY METHOD 07/14/2025 9:47 AM [facility] MCV 96.2 79.0 - 98.0 FL LAB HEMETOLOGY METHOD 07/14/2025 9:47 AM [facility] MCH 30.3 27.0 - 32.0 pcg LAB HEMETOLOGY METHOD 07/14/2025 9:47 AM [facility] MCHC 31.5(L) 32.0 - 37.0 g/dL LAB HEMETOLOGY METHOD 07/14/2025 9:47 AM [facility] RDW 14.3 11.0 - 15.0 % LAB HEMETOLOGY METHOD 07/14/2025 9:47 AM [facility] Platelets 200 130 - 400 K/mcL LAB HEMETOLOGY METHOD 07/14/2025 9:47 AM [facility] MPV 11.5(H) 7.0 - 11.0 FL LAB HEMETOLOGY METHOD 07/14/2025 9:47 AM [facility] NRBC 0.0 <1.0 % LAB HEMETOLOGY METHOD 07/14/2025 9:47 AM [facility] NRBC Absolute 0.00 <0.10 K/mcL LAB HEMETOLOGY METHOD 07/14/2025 9:47 AM [facility] Neutrophils Relative 60.1 % LAB HEMETOLOGY METHOD 07/14/2025 9:47 AM [facility] Lymphocytes Relative 26.9 % LAB HEMETOLOGY METHOD 07/14/2025 9:47 AM [facility] Monocytes Relative 6.3 % LAB HEMETOLOGY METHOD 07/14/2025 9:47 AM [facility] Eosinophils Relative 5.7 % LAB HEMETOLOGY METHOD 07/14/2025 9:47 AM [facility] Basophils Relative 0.7 % LAB HEMETOLOGY METHOD 07/14/2025 9:47 AM [facility] Immature Granulocytes Relative 0.3 % LAB HEMETOLOGY METHOD 07/14/2025 9:47 AM [facility] Neutrophils Absolute 5.63 1.50 - 7.00 K/mcL LAB HEMETOLOGY METHOD 07/14/2025 9:47 AM [facility] Lymphocytes Absolute 2.52 1.00 - 5.00 K/mcL LAB HEMETOLOGY METHOD 07/14/2025 9:47 AM EST [facility] Monocytes Absolute 0.59 0.20 - 1.00 K/[facility] LAB HEMETOLOGY METHOD 07/14/2025 9:47 AM EST [facility] Eosinophils Absolute 0.53(H) 0.00 - 0.50 K/[facility] LAB HEMETOLOGY METHOD 07/14/2025 9:47 AM EST [facility] Basophils Absolute 0.07 0.00 - 0.20 K/[facility] LAB HEMETOLOGY METHOD 07/14/2025 9:47 AM EST [facility] Immature Granulocytes Absolute 0.03 0.00 - 0.03 K/[facility] LAB HEMETOLOGY METHOD 07/14/2025 9:47 AM EST [facility] Blood Venous blood specimen / Unknown Venipuncture / Unknown 07/14/2025 4:44 AM EST 07/14/2025 9:35 AM EST us Kymberly Horne MD LAB BLOOD ORDERABLES Fin al Result [facility] [address] [place] [address], * (ABNORMAL) Prothrombin time with INR (07/14/2025 4:44 AM EST) Only the most recent of13 resultswithin the time period is included. Protime 16.2(H) 10.6 - 13.9 sec LAB COAGULATION METHOD 07/14/2025 9:56 AM EST [facility] INR 1.3 LAB COAGULATION METHOD 07/14/2025 9:56 AM EST [facility] Blood Venous blood specimen / Unknown Venipuncture / Unknown 07/14/2025 4:44 AM EST 07/14/2025 9:35 AM EST us Kymberly Horne MD LAB BLOOD ORDERABLES Fin al Result [facility] [address] [place] [address], * (ABNORMAL) Basic metabolic panel (07/14/2025 4:44 AM EST) Only the most recent of4 resultswithin the time period is included. Sodium 141 133 - 145 mmol/L 07/14/2025 10:16 AM [facility] Potassium 4.2 3.5 - 5.5 mmol/L 07/14/2025 10:16 AM [facility] Chloride 100 96 - 110 mmol/L 07/14/2025 10:16 AM [facility] CO2 32 21 - 32 mmol/L 07/14/2025 10:16 AM [facility] Anion Gap 9 3 - 11 07/14/2025 10:16 AM [facility] Glucose 130(H) 70 - 100 mg/dL 07/14/2025 10:16 AM [facility] BUN 32(H) 5 - 25 mg/dL 07/14/2025 10:16 AM [facility] Creatinine 1.27(H) 0.50 - 1.10 mg/dL 07/14/2025 10:16 AM [facility] eGFR 41(L) >=60 mL/min/1. 73m2 07/14/2025 10:16 AM [facility] Comment:Calculation based on the Chronic Kidney Disease Epidemiology Collaboration (CKD-EPI) equation refit without adjustment for race. BUN/Creatinine Ratio 25.2 07/14/2025 10:16 AM [facility] Calcium 9.9 8.5 - 10.5 mg/dL 07/14/2025 10:16 AM [facility] Blood Venous blood specimen / Unknown Venipuncture / Unknown 07/14/2025 4:44 AM EST 07/14/2025 9:35 AM EST us Kymberly Horne MD LAB BLOOD ORDERABLES Fin al Result [facility] [address] [place] [address], * (ABNORMAL) Complete blood count (07/07/2025 4:43 AM EST) Only the most recent of3 resultswithin the time period is included. WBC 8.2 4.8 - 10.8 K/mcL LAB HEMETOLOGY METHOD 07/07/2025 10:20 AM [facility] RBC 3.90 3.80 - 4.80 M/mcL LAB HEMETOLOGY METHOD 07/07/2025 10:20 AM [facility] Hemoglobin 11.8 11.5 - 16.0 g/dL LAB HEMETOLOGY METHOD 07/07/2025 10:20 AM [facility] Hematocrit 37.3 35.0 - 47.0 % LAB HEMETOLOGY METHOD 07/07/2025 10:20 AM [facility] MCV 96.6 79.0 - 98.0 FL LAB HEMETOLOGY METHOD 07/07/2025 10:20 AM [facility] MCH 30.6 27.0 - 32.0 pcg LAB HEMETOLOGY METHOD 07/07/2025 10:20 AM [facility] MCHC 31.6(L) 32.0 - 37.0 g/dL LAB HEMETOLOGY METHOD 07/07/2025 10:20 AM [facility] RDW 14.0 11.0 - 15.0 % LAB HEMETOLOGY METHOD 07/07/2025 10:20 AM EST [facility] Platelets 184 130 - 400 K/mcL LAB HEMETOLOGY METHOD 07/07/2025 10:20 AM EST [facility] MPV 11.6(H) 7.0 - 11.0 FL LAB HEMETOLOGY METHOD 07/07/2025 10:20 AM EST [facility] NRBC 0.0 <1.0 % LAB HEMETOLOGY METHOD 07/07/2025 10:20 AM EST [facility] NRBC Absolute 0.00 <0.10 K/mcL LAB HEMETOLOGY METHOD 07/07/2025 10:20 AM EST [facility] Blood Venous blood specimen / Unknown Venipuncture / Unknown 07/07/2025 4:43 AM EST 07/07/2025 9:17 AM EST Kymberly Horne MD LAB BLOOD ORDERABLES Fin al Result [facility] [address] [place] [address], [place] [phone] * (ABNORMAL) Hemoglobin A1c (07/02/2025 8:03 AM EST) Hemoglobin A1C 6.7(H) <6.5 % LAB CHEMISTRY METHOD 07/02/2025 2:06 PM EST [facility] Mean Bld Glu Estim. 146 mg/dL LAB CHEMISTRY METHOD 07/02/2025 2:06 PM EST [facility] Blood Venous blood specimen / Unknown Venipuncture / Unknown 07/02/2025 8:03 AM EST 07/02/2025 10:06 AM EST Kymberly Horne MD LAB BLOOD ORDERABLES Fin al Result Performing Organization Address City/[facility]/ZIP Co de Phone Number [facility] [address] [place] [address], [place] [phone] from Last 3 Months Insurance [facility] [place] [id number] Care Teams Pull Over Machine Operator Relationship Specialty Start Date End Date Valeri Lerner DO [address] [place] [address] PCP - General 11/15/14
--- OUTSIDE RECORDS SUMMARY | 2025-07-21 11:36 | XMS_ITS | Encounter Summary ---
Author Organization [employer] Address [address] [facility] [address] [place] [address] Care Team Providers Care And Drying Supervisor Cooking Casing Name Role Phone Valeri Lerner DO Primary Care Provider +1- [phone] Reason for Visit * Reason Comments Med Refill Encounter Details Date Type Department Care Team (Late st Contact Info) Description 04/24/2025 Refill [facility] [address] [place], [place] [phone] Valeri Lerner DO [address] [place], [place] [phone] Social History Tobacco Use Types Packs/Day Years [...] Description 08/05/2025 10:45 AM EST Office Visit [facility] [address] [place] [address] Ericka Sarmiento MD [address] [place] [address] documented as of this encounter Goals Goal [...] documented as of this encounter Care Teams And Drying Supervisor Cooking Casing Relationship Specialty Start Date End Date Valeri Lerner DO [address] [place] [address] PCP - General Family Medicine 07/13/12 [employer] 12/08/23 documented as of this encounter
--- OUTSIDE RECORDS SUMMARY | 2025-07-21 11:36 | XMS_ITS | Encounter Summary ---
Author Organization [employer] Address [address] [facility] [address] [place] [address] Care Team Providers Care Tape Folding Machine Operator Name Role Phone Valeri Lerner DO Primary Care Provider Batsheva Gomez PharmD Unavailable [phone] Reason for Visit * Reason Comments Med Refill Encounter Details Date Type Department Care Team (Late st Contact Info) Description 06/20/2023 Refill [facility] [address] [place], [place] [phone] Valeri Lerner DO [address] [place], [place] [phone] Social History Tobacco Use Types Packs/Day Years [...] Description 08/05/2025 10:45 AM EST Office Visit [facility] [address] [place] [phone] Ericka Sarmiento MD [address] [place] [phone] documented as of this encounter Visit Diagnoses Not on filedocumented in this encounter Care Teams Tape Folding Machine Operator Relationship Specialty Start Date End Date Valeri Lerner DO [address] [place] [address] PCP - General Family Medicine 07/13/12 Batsheva Gomez PharmD [address] [place] [phone] Pharmacist Internal Medicine 03/07/24 12/19/24 [employer] 12/08/23 documented as of this encounter
--- OUTSIDE RECORDS SUMMARY | 2025-07-21 11:36 | XMS_ITS | Encounter Summary ---
Author Organization [facility] Address [address] [place] [address] Care Team Providers Care Insulation Supervisor Name Role Phone Valeri Lerner Primary Care Provider +1- [phone] Encounter Details Date Type Department Care Team (Latest Contact Info) Description 10/22/2024 Lab Requisition [facility] - Main Lab [address] [facility] [place] [address] Amrita Polanco MD [address] [place] [phone] Essential (primary) hypertension; Unspecified atrial fibrillation (CMS/HCC [...] mmol/L LAB CHEMISTRY METHOD 10/22/2024 11:07 AM [facility] Potassium 3.6 3.5 - 5.5 mmol/L LAB CHEMISTRY METHOD 10/22/2024 11:07 AM [facility] Chloride 105 96 - 110 mmol/L LAB CHEMISTRY METHOD 10/22/2024 11:07 AM [facility] CO2 30 21 - 32 mmol/L LAB CHEMISTRY METHOD 10/22/2024 11:07 AM [facility] Anion Gap 7 3 - 11 LAB CHEMISTRY METHOD 10/22/2024 11:07 AM [facility] Glucose 85 70 - 100 mg/dL LAB CHEMISTRY METHOD 10/22/2024 11:07 AM [facility] BUN 22 5 - 25 mg/dL LAB CHEMISTRY METHOD 10/22/2024 11:07 AM [facility] Creatinine 1.22(H) 0.50 - 1.10 mg/dL LAB CHEMISTRY METHOD 10/22/2024 11:07 AM [facility] eGFR 43(L) >=60 mL/min/1. 73m2 LAB CHEMISTRY METHOD 10/22/2024 11:07 AM [facility] Comment:Calculation based on the Chronic Kidney Disease Epidemiology Collaboration (CKD-EPI) equation refit without adjustment for race. BUN/Creatinine Ratio 18.0 LAB CHEMISTRY METHOD 10/22/2024 11:07 AM [facility] Calcium 9.9 8.5 - 10.5 mg/dL LAB CHEMISTRY METHOD 10/22/2024 11:07 AM [facility] Blood Venous blood specimen / Unknown Venipuncture / Unknown 10/22/2024 6:16 AM EDT 10/22/2024 9:34 AM EDT us Amrita Polanco MD LAB BLOOD ORDERABLES Final Resu lt Performing Organization Address City/[facility]/ZIP Co de Phone Number [facility] [address] [place] [address], [place] [phone] * (ABNORMAL) Prothrombin time with INR (10/22/2024 6:16 AM EDT) Pathologist [facility] Protime 36.0(H) 10.6 - 13.9 sec LAB COAGULATION METHOD 10/22/2024 10:31 AM EDT [facility] INR 2.9 LAB COAGULATION METHOD 10/22/2024 10:31 AM EDT [facility] Blood Venous blood specimen / Unknown Venipuncture / Unknown 10/22/2024 6:16 AM EDT 10/22/2024 9:34 AM EDT us Amrita Polanco MD LAB BLOOD ORDERABLES Final Resu lt Performing Organization Address [facility]/ZIP Co de Phone Number [facility] [address] [place] [address], [place] [phone] * (ABNORMAL) Complete blood count (10/22/2024 6:16 AM EDT) [facility] WBC 9.2 4.8 - 10.8 K/mcL LAB HEMETOLOGY METHOD 10/22/2024 10:30 AM EDT [facility] RBC 3.70(L) 3.80 - 4.80 M/mcL LAB HEMETOLOGY METHOD 10/22/2024 10:30 AM EDT [facility] Hemoglobin 11.4(L) 11.5 - 16.0 g/dL LAB HEMETOLOGY METHOD 10/22/2024 10:30 AM EDT [facility] Hematocrit 35.8 35.0 - 47.0 % LAB HEMETOLOGY METHOD 10/22/2024 10:30 AM EDT [facility] MCV 96.8 79.0 - 98.0 FL LAB HEMETOLOGY METHOD 10/22/2024 10:30 AM EDT [facility] MCH 30.8 27.0 - 32.0 pcg LAB HEMETOLOGY METHOD 10/22/2024 10:30 AM EDT [facility] MCHC 31.8(L) 32.0 - 37.0 g/dL LAB HEMETOLOGY METHOD 10/22/2024 10:30 AM EDT [facility] RDW 13.8 11.0 - 15.0 % LAB HEMETOLOGY METHOD 10/22/2024 10:30 AM EDT [facility] Platelets 328 130 - 400 K/mcL LAB HEMETOLOGY METHOD 10/22/2024 10:30 AM EDT [facility] MPV 10.9 7.0 - 11.0 FL LAB HEMETOLOGY METHOD 10/22/2024 10:30 AM EDT [facility] NRBC 0.0 <1.0 % LAB HEMETOLOGY METHOD 10/22/2024 10:30 AM EDT [facility] NRBC Absolute 0.00 <0.10 K/mcL LAB HEMETOLOGY METHOD 10/22/2024 10:30 AM T [facility] Blood Venous blood specimen / Unknown Venipuncture / Unknown 10/22/2024 6:16 AM EDT 10/22/2024 9:34 AM EDT us Amrita Polanco MD LAB BLOOD ORDERABLES Final Resu lt [facility] [address] [place] [address], documented in this encounter Visit Diagnoses Diagnosis Essential (primary) hypertension Unspecified essential hypertension Unspecified atrial fibrillation (CMS/HCC V24, CMS/HCC V28) Type 2 diabetes mellitus without complications ([facility]/HCC V24, CMS/[facility] V28) documented in this encounter Care Teams Insulation Supervisor Relationship Specialty Start Date End Date Valeri Lerner DO [address] [place], [place] PCP - General 11/15/14 documented as of this encounter
--- OUTSIDE RECORDS SUMMARY | 2025-07-21 11:36 | XMS_ITS | Encounter Summary ---
Author Organization [employer] Address [address] [facility] 7t [place] [address] Care Team Providers Care Environmental Studies Faculty Member Name Role Phone Valeri Lerner DO Primary Care Provider Batsheva Gomez PharmD Unavailable [phone] Reason for Visit * Reason Comments Med Refill Encounter Details Date Type Department Care Team (Late st Contact Info) Description 06/20/2023 Refill [facility] [address] [place], [place] [phone] Valeri Lerner DO [address] [place], [place] [phone] Generalized anxiety disorder Social History Tobacco Use [...] AM EST Office Visit [facility] [address] [place] [phone] Ericka Sarmiento MD [address] [place] [phone] documented as of this encounter Visit Diagnoses Diagnosis Generalized anxiety disorder documented in this encounter Care Teams Environmental Studies Faculty Member Relationship Specialty Start Date End Date Valeri Lerner DO [address] [place] [address] PCP - General Family Medicine 07/13/12 Batsheva Gomez PharmD [address] [place] [phone] Pharmacist Internal Medicine 03/07/24 12/19/24 [employer] 12/08/23 documented as of this encounter
--- OUTSIDE RECORDS SUMMARY | 2025-07-21 11:36 | XMS_ITS | Patient Health Record ---
Author Organization [employer] Address [address] [place] [address] Care Team Providers Care Net Technical Architect Name Role Phone Tyler Garsia Unavailable [phone] Reason For Referral No Information Plan Of Treatment No Information
--- OUTSIDE RECORDS SUMMARY | 2025-07-21 11:36 | XMS_ITS | Encounter Summary ---
Author Organization [employer] Address 75 [facility] 7t [place] [address] Care Team Providers Care Medical Coding Technician Name Role Phone Valeri Lerner DO Primary Care Provider Batsheva Gomez PharmD Unavailable [phone] Reason for Visit * Reason Comments Med Refill Encounter Details Date Type Department Care Team (Late st Contact Info) Description 09/12/2023 Refill [facility] [address] [place], [place] [phone] Valeri Lerner DO [address] [place], [place] [phone] Generalized anxiety disorder Social History Tobacco Use [...] Description 08/05/2025 10:45 AM EST Office Visit [facility] [address] [place] [address] Ericka Sarmiento MD [address] [place] [address] documented as of this encounter Visit Diagnoses Diagnosis Generalized anxiety disorder documented in this encounter Additional Health Concerns Assessment Noted Time PHQ-9 Depression Total Score: 2 08/23/19 24 11:01 AM EST documented as of this encounter Care Teams Medical Coding Technician Relationship Specialty Start Date End Date Valeri Lerner DO [address] [place] [address] PCP - General Family Medicine 07/13/12 Batsheva Gomez PharmD [address] [place] [address] Pharmacist Internal Medicine 03/07/24 12/19/24 [employer] Delikatesser 12/08/23 documented as of this encounter
--- OUTSIDE RECORDS SUMMARY | 2025-07-21 11:36 | XMS_ITS | Encounter Summary ---
Author Organization [facility] Address [address] [place] [address] Care Team Providers Care Outbound Sales Specialist Name Role Phone Valeri Lerner Primary Care Provider [phone] Encounter Details Date Type Department Care Team (Late st Contact Info) Description 11/04/2024 Lab Requisition [facility] - Main Lab [address] [place] [address] Amrita Polanco MD [address] [place] [phone] Unspecified atrial fibrillation (CMS/HCC V24, CMS/HCC V28) [...] sec LAB COAGULATION METHOD 11/04/2024 11:56 AM [facility] INR 1.4 LAB COAGULATION METHOD 11/04/2024 11:56 AM [facility] Blood Venous blood specimen / Unknown Venipuncture / Unknown 11/04/2024 8:39 AM EDT 11/04/2024 11:00 AM EDT us Amrita Polanco MD LAB BLOOD ORDERABLES Final Resu lt [facility] ([facility]) [facility] [address] [place] [address], documented in this encounter Visit Diagnoses Diagnosis Unspecified atrial fibrillation (CMS/HCC V24, CMS/HCC V28) documented in this encounter Care Teams Outbound Sales Specialist Relationship Specialty Start Date End Date Valeri Lerner DO [address] [place] [address] PCP - General 11/15/14 documented as of this encounter
--- OUTSIDE RECORDS SUMMARY | 2025-07-21 11:36 | XMS_ITS ---
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 She has an appointment with the ruling technician on monday for further evaluation.01/28/25: Patient denies BLE edema or dyspnea, denies any acute concerns. COPD (chronic obstructive pulmonary disease) Active 2022-08-15 N/A advjhoana hayes casonefu w pulmonaryon Room Air -Stable-continue to f/u with PCP/specialists-continue rx'd medications-report changes in chronic condition Incontinence; Mixed stress and urge urinary incontinence Active 2024-11-22 N/A Incontinence sup plies ordered on 11/22-continue f/u with urology [facility] Unsteady gait Active 2024-12-10 N/A VENEER SHEET REPAIRER reports that the patient has unsteady gait [...] N/A -Patient has gurwinder ly [facility] and VENEER SHEET REPAIRER services. She lives alone in a third floor apartment with close family support from daughter. Daughter requesting increase in VENEER SHEET REPAIRER hoursPCA- Sully -Advised to reach out to [facility] cc Virgli currently approximate 30hours per weekCognition Status: Oriented [...] NoDo you have a Durable Power of Classification Analyst for Healthcare, or Healthcare Proxy Or Guardianship? 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 [...] (do not use for phone, instead use 82090-14) [facility], ([place]/2022 Paroxysmal atrial fibrillationChronic obstructive pulmonary disease, unspecifiedAthscl heart disease of mohegan coronary artery w/o ang pctrsType 2 diabetes [...] (do not use for phone, instead use 92902-61) [facility] New patient,40-59min ; chronic exacerbation, 2 stable chronic or 1 acute illness add add modifier 95 for video (do not use for phone, instead use 88197-34) [facility] New patient,40-59min ; chronic exacerbation, 2 stable chronic or 1 acute illness add add modifier 95 for video (do not use for phone, instead use 83861-56) [facility] New patient,40-59min ; chronic exacerbation, 2 stable chronic or 1 acute illness add add modifier 95 for video (do not use for phone, instead use 22010-43) [facility] New patient,40-59min ; chronic exacerbation, 2 stable chronic or 1 acute illness add add modifier 95 for video (do not use for phone, instead use 83164-63) [facility] New patient,40-59min ; chronic exacerbation, 2 stable chronic or 1 acute illness add add modifier 95 for video (do not use for phone, instead use 80143-66) [facility] ([place]) 08/25/2022 New patient,40-59min ; chronic exacerbation, 2 stable chronic or 1 acute illness add add modifier 95 for video (do not use for phone, instead use 13383-61) [facility] Estab. patient 20-29min; 1 stable chronic or 2 minor; add add modifier 95 for video, modifier 93 for phone [facility]03/2022 Pneumonia, unspecified organismSepsis, unspecified organism Estab. patient 20-29min; 1 stable chronic or 2 minor; add add modifier 95 for video, modifier 93 for phone [facility] Estab. patient 20-29min; 1 stable chronic or 2 minor; add add modifier 95 for video, modifier 93 for phone [facility]/03[place]20[place] Estab. patient 20-29min; 1 stable chronic or 2 minor; add add modifier 95 for video, modifier 93 for phone [facility]/03/20[place] Estab. patient 20-29min; 1 stable chronic or 2 minor; add add modifier 95 for video, modifier 93 for phone [facility]/03[place]20[place] Estab. patient 20-29min; 1 stable chronic or 2 minor; add add modifier 95 for video, modifier 93 for phone [facility] Estab. patient 30-39min; chronic exacerbation, 2 stable chronic or 1 acute illness add add modifier 95 for video, (do not use for phone, instead use 95194-62) [facility] Paroxysmal atrial fibrillati onOther thrombophiliaHypertensive heart disease with heart failureMorbid (severe) obesity due to excess caloriesSecondary hyperaldosteronismChronic obstructive pulmonary disease, unspecifiedHeart failure, unspecifiedMajor depressive disorder, single episode, in partial remissionType 2 diabetes mellitus with other specified complicationHypothyroidism, unspecifiedHyperlipidemia, unspecifiedAthscl heart disease of mohegan coronary artery w/o ang pctrsAnemia in other chronic diseases classified elsewhereGeneralized anxiety disorderBody mass index (BMI) 40.0-44.9, adultPrsnl hx of TIA (TIA), and cereb infrc w/o resid deficitsOther problems related to medical facilities and other health care Estab. patient 30-39min; chronic exacerbation, 2 stable chronic or 1 acute illness add add modifier 95 for video, (do not use for phone, instead use 01355-21) [facility] Estab. patient 30-39min; chronic exacerbation, 2 stable chronic or 1 acute illness add add modifier 95 for video, (do not use for phone, instead use 62308-94) [facility] Estab. patient 30-39min; chronic exacerbation, 2 stable chronic or 1 acute illness add add modifier 95 for video, (do not use for phone, instead use 36685-17) [facility] Estab. patient 30-39min; chronic exacerbation, 2 stable chronic or 1 acute illness add add modifier 95 for video, (do not use for phone, instead use 78575-84) [facility] Estab. patient 30-39min; chronic exacerbation, 2 stable chronic or 1 acute illness add add modifier 95 for video, (do not use for phone, instead use 43001-09) [facility] Estab. patient 30-39min; chronic exacerbation, 2 stable chronic or 1 acute illness add add modifier 95 for video, (do not use for phone, instead use 89129-14) [facility]/20[place] Estab. patient 30-39min; chronic exacerbation, 2 stable chronic or 1 acute illness add add modifier 95 for video, (do not use for phone, instead use 67534-93) [facility]/20[place] Estab. patient 30-39min; chronic exacerbation, 2 stable chronic or 1 acute illness add add modifier 95 for video, (do not use for phone, instead use 53914-24) [facility]/20[place] Estab. patient 30-39min; chronic exacerbation, 2 stable chronic or 1 acute illness add add modifier 95 for video, (do not use for phone, instead use 65096-52) [facility]/20[place] Estab. patient 30-39min; chronic exacerbation, 2 stable chronic or 1 acute illness add add modifier 95 for video, (do not use for phone, instead use 74473-77) [facility] Estab. patient 10-29min; 1 minor problem; add add modifier 95 for video, modifier 93 for phone [facility] 09[place]/2024 Heart failure, unspecifiedSe condary hyperaldosteronismOther problems related to medical facilities and other health care Estab. patient 10-29min; 1 minor problem; add add modifier 95 for video, modifier 93 for phone [facility] 10/10/2024 Chronic obstructive pulmonar y disease, unspecifiedHypertensive heart disease with heart failureHeart failure, unspecified Estab. patient 10-29min; 1 minor problem; add add modifier 95 for video, modifier 93 for phone [facility] 11/07/2024 Acute respiratory failure wi th hypoxiaChronic obstructive pulmonary disease, unspecifiedPneumonia, unspecified organismUnspecified urinary incontinenceOther problems related to medical facilities and other health care Estab. patient 10-29min; 1 minor problem; add add modifier 95 for video, modifier 93 for phone [facility]/07/2024 Estab. patient 10-29min; 1 minor problem; add add modifier 95 for video, modifier 93 for phone [facility]/07/20[place] Estab. patient 10-29min; 1 minor problem; add add modifier 95 for video, modifier 93 for phone [facility]/07/2024 Estab. patient 10-29min; 1 minor problem; add add modifier 95 for video, modifier 93 for phone [facility] 12/10/2024 Acute respiratory failure wi th hypoxiaPneumonia, unspecified organismUnsteadiness on feetOther problems related to medical facilities and other health care Estab. patient 10-29min; 1 minor problem; add add modifier 95 for video, modifier 93 for phone [facility] 01/28/2025 Heart failure, unspecifiedSe condary hyperaldosteronismChronic obstructive pulmonary disease, unspecified RN, CN or CP time with patient by phone; use with 1111F, BP, A1c or other CPTII codes [facility] 02/18/2025 Encounter for other specifie d aftercare RN, CN or CP time with patient by phone; use with 1111F, BP, A1c or other CPTII codes [facility] 02/18/2025 Estab. patient 10-29min; 1 minor problem; add add modifier 95 for video, modifier 93 for phone [facility] 02/27/2025 Urinary tract infection, sit e not specifiedOther problems related to medical facilities and other health care Estab. patient 10-29min; 1 minor problem; add add modifier 95 for video, modifier 93 for phone [facility] 02/27/2025 Estab. patient 10-29min; 1 minor problem; add add modifier 95 for video, modifier 93 for phone [facility] 02/27/2025 Estab. patient 10-29min; 1 minor problem; add add modifier 95 for video, modifier 93 for phone [facility] 02/27/2025 Estab. patient 10-29min; 1 minor problem; add add modifier 95 for video, modifier 93 for phone [facility] 04/02/2025 Polyosteoarthritis, unspecifiedParoxysmal atrial fibrillationOther thrombophiliaChronic obstructive pulmonary disease, unspecifiedAthscl heart disease of mohegan coronary artery w/o ang pctrsType 2 diabetes [...] tive Time Current Smoking Status Former smoker 2025-07-01 2 Sex Female Gender identity Woman History of Procedures Procedures Service Procedure code Service date Servicing provider Phone# New patient,40-59min; chronic exacerbation, 2 stable chronic or 1 acute illness add add modifier 95 for video (do not use for phone, instead use 46025-71) [id number] 2022-08-25 No Data Available No Data Availa [...] 95 for video, modifier 93 for phone [id number] 2022-10-03 No Data Available No Data Availa [...] (do not use for phone, instead use 07310-77) 10957 2024-05-28 No Data Available No Data Availa [...] 95 for video, modifier 93 for phone [id number] 2024-09-10 No Data Available No Data Availa ble Estab. patient 10-29min; 1 minor problem; add add modifier 95 for video, modifier 93 for phone [id number] 2024-10-10 No Data Available No Data Availa [...] 95 for video, modifier 93 for phone 48741 2024-12-10 No Data Available No Data Availa ble Estab. patient 10-29min; 1 minor problem; add add modifier 95 for video, modifier 93 for phone [id number] 2025-01-28 No Data Available No Data Availa ble RN, CN or CP time with patient by phone; use with 1111F, BP, A1c or other CPTII codes 19225 2025-02-18 No Data Available No Data Avai [...] 95 for video, modifier 93 for phone [id number] 2025-04-02 No Data Available No Data Availa [...] obstructive pulmonary disease)Atherosclerosis of coronary artery of mohegan heartType 2 diabetes mellitus with hyperlipidemiaMajor depressive disorder in partial remissionHypothyroidismMorbid obesity due to excess caloriesHistory of CVA (cerebrovascular accident)Anemia in chronic illness 2022-10-03 07:05:20 Patient Education to avoid future hospitalization: Call [facility] if symptoms of illness develop.Sepsis due to pneumonia 2024-05-28 07:45:46 paroxysmal atrial fi brillation and Hypercoagulability due to atrial fibrillationCOPD (chronic obstructive pulmonary disease)Atherosclerosis of coronary artery of mohegan heartType 2 diabetes mellitus with hyperlipidemiaMajor depressive [...] obstructive pulmonary disease)Atherosclerosis of coronary artery of mohegan heartType 2 diabetes mellitus with hyperlipidemia; Type [...] lantus, metformin, trulicty a1c 7.7, [facility] and mtr lipids fu w endocrinecont on sertralinept denies symptoms currentlycont to [facility] fcont clonazepam for anxiety/insomnialevothyroxinefu w endomtr tshBMI [...] feeling wellReport consistent blood pressures readings >140/902/06/24: VENEER SHEET REPAIRER reports that in the last couple of days the patient's toes have been pink and sensitive to touch, denies uncontrolled pain to touch. She has an appointment with the ruling technician on monday for further evaluation. 2024-10-10 06:15:41 Estab. patient 10-29 min; 1 minor problem; add add modifier 95 for video, modifier 93 for phoneContinue to see PCP. [facility] [...] the patient is home with family and VENEER SHEET REPAIRER/VNA care. The patient is currently has a [...] or disease education needs that may arise 20/02.VENEER SHEET REPAIRER reports that the patient has unsteady gait with walking, requires assistance during ambulation. Hx of falls.11/07/24: Hospitalization 10/21-10/21 for acute hypoxic respiratory failure secondary to pneumonia. Patient presented to cough and shortness of breath. The patient was discharged to a STR. In addition, the patient had ER visit 11/05 for aspiration pneumonia. At this time, the patient is home with family and VENEER SHEET REPAIRER/VNA care. The patient is currently has a [...] / WeaknessPlanned intervention: Order [facility] at [facility] or local hospital Assess for [...] feeling wellReport consistent blood pressures readings >140/902/06/24: VENEER SHEET REPAIRER reports that in the last couple of days the patient's toes have been pink and sensitive to touch, denies uncontrolled pain to touch. She has an appointment with the ruling technician on monday for further evaluation.01/28/25: Patient denies [...] / WeaknessPlanned intervention: Order x-ray at [facility] or local hospital Assess for [...] for phoneContinue to see PCP. Follow-up with [facility] as needed for any acute [...] / WeaknessPlanned intervention: Order x-ray at [facility] or local hospital Assess for [...] with PCP/specialists-continue rx'd medications-report changes in chronic xosficlikthcyqxrfu-Jowzec-owjgqjga to f/u with PCP/specialists-continue rx'd medications-report changes [...] feeling wellReport consistent blood pressures readings >140/902/06/24: VENEER SHEET REPAIRER reports that in the last couple of days the patient's toes have been pink and sensitive to touch, denies uncontrolled pain to touch. She has an appointment with the ruling technician on monday for further evaluation.01/28/25: Patient denies [...] supplies ordered on 11/22-[facility] has unsteady gait with walking, requires assistance during ambulation. Hx of falls.-Patient has daily VNA and VENEER SHEET REPAIRER services. She lives alone in a third floor apartment with close family support from daughter. Daughter requesting increase in VENEER SHEET REPAIRER hoursPCAJigna Virk -Advised to reach out to [facility] cc Virgil currently approximate 30hours per [...] NoDo you have a Durable Power of Classification Analyst for Healthcare, or Healthcare Proxy Or Guardianship? [...] discussion: (Who was present, : member and CXN-Solbbf-tefzmagc to f/u with PCP/specialists-continue rx'd medications-report changes [...] NoDo you have a Durable Power of Classification Analyst for Healthcare, or Healthcare Proxy Or Guardianship? [...] discussion: (Who was present, : member and VENEER SHEET REPAIRER 2025-04-02 Functional Assessmen tCognition Status: Oriented to [...]
--- OUTSIDE RECORDS SUMMARY | 2025-07-21 11:36 | XMS_ITS | Encounter Summary ---
Author Organization [employer] Address [address] [facility] [address]t [place] [address] Care Team Providers Care Associate Professor Of Physics Name Role Phone Valeri Lerner DO Primary Care Provider Batsheva Gomez PharmD Unavailable Reason for Visit * Reason Onset Date Comments Nurse Triage 01/18/2024 Encounter Details Date Type Department Care Team (Late st Contact Info) Description 01/18/2024 Telephone [facility] [address] [place], [place] [phone] Valeri Lerner DO [address] [place], [place] [phone] Nurse Triage Social History Tobacco Use Types [...] Artemio with VNA on any medication changes [phone]. Daughter made aware of home care recommendations, [...] accepted this outcome Please contact pt at [phone] documented in this encounter Plan of Treatment Upcoming Encounters Date Type Department Care Team (Late st Contact Info) Description 08/05/2025 10:45 AM EST Office Visit [facility] [address] [place] [address] Ericka Sarmiento MD [address] [place] [address] documented as of this encounter Visit Diagnoses Not on filedocumented in this encounter Additional Health Concerns Assessment Noted Time PHQ-9 Depression Total Score: 2 08/23/19 24 11:01 AM EST documented as of this encounter Care Teams Associate Professor Of Physics Relationship Specialty Start Date End Date Valeri Lerner DO [address] [place] [address] PCP - General Family Medicine 07/13/12 Batsheva Gomez PharmD [address] [place] [address] Pharmacist Internal Medicine 03/07/24 12/19/24 [facility] 12/08/23 documented as of this encounter
--- OUTSIDE RECORDS SUMMARY | 2025-07-21 11:36 | XMS_ITS | Encounter Summary ---
Author Organization [employer] Address 75 [facility] 7t [place] [address] Care Team Providers Care Process Pumper Name Role Phone Valeri Lerner DO Primary Care Provider [phone] Batsheva Gomez PharmD Unavailable [phone] Encounter Details Date Type Department Care Team (Late st Contact Info) Description 09/23/2022 Abstract [facility] MEDICINE [address] [place], [place] [phone] Valeri Lerner DO [address] [place], [place] [phone] Social History Tobacco Use Types Packs/Day Years [...] 08/05/2025 10:45 AM EST Office Visit [facility] MED[facility]INE [address] [place], [place] [phone] Ericka Sarmiento MD [address] [place], [place] [phone] documented as of this encounter Visit Diagnoses Not on filedocumented in this encounter Care Teams Process Pumper Relationship Specialty Start Date End Date Valeri Lerner DO [address] [place], [place] [phone] PCP - General Family Medicine 07/13/12 Batsheva Gomez PharmD [address] [place], [place] [phone] Pharmacist Internal Medicine 03/07/24 12/19/24 [employer] 12/08/23 documented as of this encounter
--- OUTSIDE RECORDS SUMMARY | 2025-07-21 11:36 | XMS_ITS | Encounter Summary ---
Author Organization [employer] Address 75 [facility] 7t [place] [address] Care Team Providers Care Television Cable Installer Name Role Phone Valeri Lerner DO Primary Care Provider Batsheva Gomez PharmD Unavailable Reason for Visit * Reason Onset Date Comments FYI 10/08/2024 Encounter Details Date Type Department Care Team (Late st Contact Info) Description 10/08/2024 Telephone [facility] MEDICINE [address] [place], [place] [phone] Valeri Lerner DO 230 [place], [place] [phone] Social History Tobacco Use Types Packs/Day Years [...] will like a callback TODAY from nurse [phone] documented in this encounter Plan of Treatment Upcoming Encounters Date Type Department Care Team (Late st Contact Info) Description 08/05/2025 10:45 AM EST Office Visit [facility] MEDICINE [address] [place] [address] Ericka Sarmiento MD [address] [place] [address] documented as of this encounter Goals Goal [...] documented as of this encounter Care Teams Television Cable Installer Relationship Specialty Start Date End Date Valeri Lerner DO [address] [place] [address] PCP - General Family Medicine 07/13/12 Batsheva Gomez, Frankie [address] [place] [address] Pharmacist Internal Medicine 03/07/24 12/19/24 [employer] 12/08/23 documented as of this encounter
--- OUTSIDE RECORDS SUMMARY | 2025-07-21 11:36 | XMS_ITS | Encounter Summary ---
Author Organization [facility] Address [address] [place] [address] Care Team Providers Care Sock Liner Name Role Phone Valeri Lerner Primary Care Provider [phone]- [phone] Encounter Details Date Type Department Care Team (Late st Contact Info) Description 10/30/2024 Lab Requisition [facility] - Main Lab [address] [place] [address] Kymberly Horne MD [address] [phone] Type 2 diabetes mellitus without complications (CMS/HCC [...] LAB CHEMISTRY METHOD 10/30/2024 1:50 PM EDT [facility] Mean Bld Glu Estim. 166 mg/dL LAB CHEMISTRY METHOD 10/30/2024 1:50 PM EDT [facility] Blood Venous blood specimen / Unknown Venipuncture / Unknown 10/30/2024 7:51 AM EDT 10/30/2024 10:03 AM EDT us Kymberly Horne MD LAB BLOOD ORDERABLES Fin al Result [facility] ([facility]) [facility] [address] [place] [address], documented in this encounter Visit Diagnoses Diagnosis Type 2 diabetes mellitus without complications (CMS/HCC V24, CMS/HCC V28) documented in this encounter Care Teams Sock Liner Relationship Specialty Start Date End Date Valeri Lerner DO [address] [place] [address] PCP - General 11/15/14 documented as of this encounter
--- OUTSIDE RECORDS SUMMARY | 2025-07-21 11:36 | XMS_ITS | Encounter Summary ---
Author Organization [employer] Address 75 [facility] 7t [place] [address] Care Team Providers Care Systems Navigator Name Role Phone Valeri Lerner DO Primary Care Provider Batsheva Gomez PharmD Unavailable [phone] Encounter Details Date Type Department Care Team (Late st Contact Info) Description 09/29/2022 Abstract [facility] [address] [place] [address] Sebastian Fierro DDS [address] [place], [place] [phone] Social History Tobacco Use Types Packs/Day Years [...] Description 08/05/2025 10:45 AM EST Office Visit [facility] MEDICINE [address] [place] [address] Ericka Sarmiento MD 230 [place], [place] [phone] documented as of this encounter Visit Diagnoses Not on filedocumented in this encounter Care Teams Systems Navigator Relationship Specialty Start Date End Date Valeri Lerner DO 230 [place], [place] [phone] PCP - General Family Medicine 07/13/12 Batsheva Gomez PharmD [address] [place], [place] [phone] Pharmacist Internal Medicine 03/07/24 12/19/24 [employer] 12/08/23 documented as of this encounter
--- OUTSIDE RECORDS SUMMARY | 2025-07-21 11:36 | XMS_ITS | Encounter Summary ---
Author Organization [employer] Address 75 [facility] 7t [place] [address] Care Team Providers Care Relations Director Name Role Phone Valeri Lerner DO Primary Care Provider Batsheva Gomez PharmD Unavailable [phone] Encounter Details Date Type Department Care Team (Late st Contact Info) Description 01/26/2024 Telephone [facility] MEDICINE 230 [place], [place] [phone] Valeri eLrner DO 230 [place], [place] [phone] Social History Tobacco Use Types Packs/Day Years [...] the past 12 months, has t he [employer], gas, oil or water company threatened to [...] Description 08/05/2025 10:45 AM EST Office Visit [facility] MEDICINE [address] [place] [address] Ericka Sarmiento MD [address] [place] [address] documented as of this encounter Visit Diagnoses Not on filedocumented in this encounter Additional Health Concerns Assessment Noted Time PHQ-9 Depression Total Score: 2 08/23/19 24 11:01 AM EST documented as of this encounter Care Teams Relations Director Relationship Specialty Start Date End Date Valeri Lerner DO [address] [place] [address] PCP - General Family Medicine 07/13/12 Batsheva Gomez PharmD [address] [place] [address] Pharmacist Internal Medicine 03/07/24 12/19/24 [employer] 12/08/23 documented as of this encounter
--- OUTSIDE RECORDS SUMMARY | 2025-07-21 11:37 | XMS_ITS | Encounter Summary ---
Author Organization [employer] Address 75 [facility] 7t [place] [address] Care Team Providers Care Science Professor Name Role Phone Valeri Lerner DO Primary Care Provider PuBatsheva landrum PharmD Unavailable [phone] Reason for Visit * Reason Comments Med Refill Encounter Details Date Type Department Care Team (Late st Contact Info) Description 08/28/2022 Refill [facility] MEDICINE 230 [place], [place] [phone] Valeri Lerner DO 230 [place], [place] [phone] Chronic constipation (Primary Dx) Social History Tobacco [...] Description 08/05/2025 10:45 AM EST Office Visit [facility] MEDICINE 230 [place] [address] Ericka Sarmiento MD 230 [place] [address] documented as of this encounter Visit Diagnoses Diagnosis Chronic constipation- Primary Unspecified constipation documented in this encounter Care Teams Science Professor Relationship Specialty Start Date End Date Valeri Lerner DO [address] [place] [phone] PCP - General Family Medicine 07/13/12 Batsheva Gomez PharmD [address] [place] [address] Pharmacist Internal Medicine 03/07/24 12/19/24 [employer] 12/08/23 documented as of this encounter
--- OUTSIDE RECORDS SUMMARY | 2025-07-21 11:37 | XMS_ITS | Encounter Summary ---
Author Organization [employer] Address 75 [facility] 7t [place] [address] Care Team Providers Care Tetryl Boiling Tub Operator Name Role Phone Valeri Lerner DO Primary Care Provider [phone] Encounter Details Date Type Department Care Team (Late st Contact Info) Description 12/24/2024 Telephone [facility] MEDICINE 230 [place], [place] [phone] Valeri Lerner DO [address] [place], [place] [phone] Social History Tobacco Use Types Packs/Day Years [...] Description 08/05/2025 10:45 AM EST Office Visit [facility] MEDICINE [address] [place] [address] Ericka Sarmiento MD [address] [place] [address] documented as of this encounter Goals Goal [...] documented as of this encounter Care Teams Tetryl Boiling Tub Operator Relationship Specialty Start Date End Date Valeri Lerner DO 230 [place] [address] PCP - General Family Medicine 07/13/12 [employer] 12/08/23 documented as of this encounter
--- OUTSIDE RECORDS SUMMARY | 2025-07-21 11:37 | XMS_ITS | Encounter Summary ---
Author Organization [facility] Address [address] [place] [address] Care Team Providers Care Template Maker Name Role Phone Valeri Lerner Primary Care Provider [phone]- [phone] Encounter Details Date Type Department Care Team (Late st Contact Info) Description 06/11/[address] [facility] - Main Lab [address] [place] [address] Macario Green MD [address] [place], [place] [phone] Unspecified atrial fibrillation (CMS/HCC V24, CMS/HCC V28) [...] MD LAB BLOOD ORDERABLES Final R esult [facility] ([facility]) [facility] [address] [place] [address], documented in this encounter Visit Diagnoses Diagnosis Unspecified atrial fibrillation (CMS/HCC V24, CMS/HCC V28) documented in this encounter Care Teams Template Maker Relationship Specialty Start Date End Date Valeri Lerner DO [address] [place] [address] PCP - General 11/15/14 documented as of this encounter
--- OUTSIDE RECORDS SUMMARY | 2025-07-21 11:37 | XMS_ITS | Encounter Summary ---
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 Social History Tobacco [...] WITH INR Routine 06/07/2025 5:28 AM EST [facility] (current) use of anticoagulants documented in this encounter Results * (ABNORMAL) Prothrombin time with INR (06/07/2025 5:28 AM EST) Protime 30.8(H) 10.6 - 13.9 sec LAB COAGULATION METHOD 06/07/2025 7:57 AM EST [facility] INR 2.5 LAB COAGULATION METHOD 06/07/2025 7:57 AM EST [facility] Blood Venous blood specimen / Unknown Venipuncture / Unknown 06/07/2025 5:28 AM EST 06/07/2025 7:22 AM EST us Macario Green MD LAB BLOOD ORDERABLES Final R esult [facility] [address] [place] [address], [place] [phone] documented in this encounter Visit Diagnoses Diagnosis [facility] (current) use of anticoagulants Long-term (current) use of anticoagulants documented in this encounter Care Teams Breaker Boss Relationship Specialty Start Date End Date Valeri Lerner DO [address] [place] [address] PCP - General 11/15/14 documented as of this encounter
--- OUTSIDE RECORDS SUMMARY | 2025-07-21 11:37 | XMS_ITS | Encounter Summary ---
Author Organization [facility] Address [address] [place] [address] Care Team Providers Care French Edge Operator Name Role Phone Valeri Lerner Primary Care Provider [phone]- [phone] Encounter Details Date Type Department Care Team (Late st Contact Info) Description 06/05/2025 Lab Requisition [facility] - Main Lab [address] [place] [address] Macario Green MD [address] [place], [place] [phone] Unspecified atrial fibrillation (CMS/HCC V24, CMS/HCC V28) [...] LAB COAGULATION METHOD 06/05/2025 8:45 AM EST [facility] INR 1.6 LAB COAGULATION METHOD 06/05/2025 8:45 AM EST [facility] Blood Venous blood specimen / Unknown Venipuncture / Unknown 06/05/2025 7:00 AM EST 06/05/2025 8:16 AM EST us Macario Green MD LAB BLOOD ORDERABLES Final R esult [facility] ([facility]) [facility] [address] [place] [address], documented in this encounter Visit Diagnoses Diagnosis Unspecified atrial fibrillation (CMS/HCC V24, CMS/HCC V28) documented in this encounter Care Teams French Edge Operator Relationship Specialty Start Date End Date Valeri Lerner DO [address] [place] [address] PCP - General 11/15/14 documented as of this encounter
--- OUTSIDE RECORDS SUMMARY | 2025-07-21 11:37 | XMS_ITS | Encounter Summary ---
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, CMS/HCC V28); Hyperlipidemia, unspecified; Chronic atrial fibrillation, unspecified (CMS/HCC V24, CMS/HCC V28); Essential (primary) hypertension; [facility]P (current) use of anticoagulants Social History Tobacco [...] (CMS/HCC V24, CMS/HCC V28) Essential (primary) hypertension 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 COMPLETE BLOOD COUNT Routine 05/30/2025 6:09 AM EDT 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, CMS/HCC V28) Hyperlipidemia, unspecified Chronic atrial fibrillation, unspecified ([facility] V24, [facility] V28) Essential (primary) hypertension USP (current) use of anticoagulants BASIC METABOLIC PANEL Routine 05/30/2025 6:09 AM EDT Type 2 diabetes mellitus with diabetic polyneuropathy ([facility] V24, [facility] V28) Hyperlipidemia, unspecified Chronic atrial fibrillation, unspecified ([facility] V24, [facility] V28) Essential (primary) hypertension 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 documented in this encounter Results * (ABNORMAL) Prothrombin time with INR (05/30/2025 6:09 AM EDT) Protime 15.7(H) 10.6 - 13.9 sec LAB COAGULATION METHOD 05/30/2025 11:16 AM EDT [facility] INR 1.3 LAB COAGULATION METHOD 05/30/2025 11:16 AM EDT [facility] Blood Venous blood specimen / Unknown Venipuncture / Unknown 05/30/2025 6:09 AM EDT 05/30/2025 9:50 AM EDT Macario Green MD LAB BLOOD ORDERABLES Final R esult [facility] [address] [place] [address], * (ABNORMAL) Basic metabolic panel (05/30/2025 6:09 AM EDT) Sodium 140 133 - 145 mmol/L LAB CHEMISTRY METHOD 05/30/2025 11:24 AM EDT [facility] Potassium 4.1 3.5 - 5.5 mmol/L LAB CHEMISTRY METHOD 05/30/2025 11:24 AM T [facility] Chloride 102 96 - 110 mmol/L LAB CHEMISTRY METHOD 05/30/2025 11:24 AM EDT [facility] CO2 35(H) 21 - 32 mmol/L LAB CHEMISTRY METHOD 05/30/2025 11:24 AM [facility] Anion Gap 3 3 - 11 LAB CHEMISTRY METHOD 05/30/2025 11:24 AM [facility] Glucose 119(H) 70 - 100 mg/dL LAB CHEMISTRY METHOD 05/30/2025 11:24 AM [facility] BUN 26(H) 5 - 25 mg/dL LAB CHEMISTRY METHOD 05/30/2025 11:24 AM [facility] Creatinine 1.13(H) 0.50 - 1.10 mg/dL LAB CHEMISTRY METHOD 05/30/2025 11:24 AM [facility] eGFR 47(L) >=60 mL/min/1. 73m2 LAB CHEMISTRY METHOD 05/30/2025 11:24 AM [facility] Comment:Calculation based on the Chronic Kidney Disease Epidemiology Collaboration (CKD-EPI) equation refit without adjustment for race. BUN/Creatinine Ratio 23.0 LAB CHEMISTRY METHOD 05/30/2025 11:24 AM [facility] Calcium 9.5 8.5 - 10.5 mg/dL LAB CHEMISTRY METHOD 05/30/2025 11:24 AM [facility] Blood Venous blood specimen / Unknown Venipuncture / Unknown 05/30/2025 6:09 AM EDT 05/30/2025 9:50 AM EDT us Macario Green MD LAB BLOOD ORDERABLES Final R esult [facility] [address] [place] [address], * (ABNORMAL) Complete blood count (05/30/2025 6:09 AM EDT) WBC 7.2 4.8 - 10.8 K/mcL LAB HEMETOLOGY METHOD 05/30/2025 11:09 AM [facility] RBC 3.80 3.80 - 4.80 M/mcL LAB HEMETOLOGY METHOD 05/30/2025 11:09 AM [facility] Hemoglobin 11.7 11.5 - 16.0 g/dL LAB HEMETOLOGY METHOD 05/30/2025 11:09 AM [facility] Hematocrit 37.9 35.0 - 47.0 % LAB HEMETOLOGY METHOD 05/30/2025 11:09 AM [facility] MCV 99.5(H) 79.0 - 98.0 FL LAB HEMETOLOGY METHOD 05/30/2025 11:09 AM [facility] MCH 30.7 27.0 - 32.0 pcg LAB HEMETOLOGY METHOD 05/30/2025 11:09 AM [facility] MCHC 30.9(L) 32.0 - 37.0 g/dL LAB HEMETOLOGY METHOD 05/30/2025 11:09 AM [facility] RDW 14.6 11.0 - 15.0 % LAB HEMETOLOGY METHOD 05/30/2025 11:09 AM [facility] Platelets 166 130 - 400 K/mcL LAB HEMETOLOGY METHOD 05/30/2025 11:09 AM [facility] MPV 11.8(H) 7.0 - 11.0 FL LAB HEMETOLOGY METHOD 05/30/2025 11:09 AM [facility] NRBC 0.0 <1.0 % LAB HEMETOLOGY METHOD 05/30/2025 11:09 AM [facility] NRBC Absolute 0.00 <0.10 K/mcL LAB HEMETOLOGY METHOD 05/30/2025 11:09 AM [facility] Blood Venous blood specimen / Unknown Venipuncture / Unknown 05/30/2025 6:09 AM EDT 05/30/2025 9:50 AM EDT us Macario Green MD LAB BLOOD ORDERABLES Final R esult [facility] ([facility]) [facility] [address] [place] [address], documented in this encounter Visit Diagnoses Diagnosis Type 2 diabetes mellitus with diabetic polyneuropathy ([facility] V24, [facility] V28) Hyperlipidemia, unspecified Chronic atrial fibrillation, unspecified ([facility] V24, [facility] V28) Essential (primary) hypertension Unspecified essential hypertension 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
--- OUTSIDE RECORDS SUMMARY | 2025-07-21 11:37 | XMS_ITS | Encounter Summary ---
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 Social History [...] WITH INR Routine 06/02/2025 6:24 AM EST residential (current) use of anticoagulants documented in this encounter Results * (ABNORMAL) Prothrombin time with INR (06/02/2025 6:24 AM EST) Protime 15.9(H) 10.6 - 13.9 sec LAB COAGULATION METHOD 06/02/2025 10:54 AM EST [facility] INR 1.3 LAB COAGULATION METHOD 06/02/2025 10:54 AM EST [facility] Blood Venous blood specimen / Unknown Venipuncture / Unknown 06/02/2025 6:24 AM EST 06/02/2025 9:50 AM EST us Macario Green MD LAB BLOOD ORDERABLES Final R esult [facility] [address] [place] [address], [place] [phone] documented in this encounter Visit Diagnoses Diagnosis 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
--- OUTSIDE RECORDS SUMMARY | 2025-07-21 11:37 | XMS_ITS | Encounter Summary ---
Author Organization [employer] Address 75 [facility] 7t h Floor [address] Care Team Providers Care Boilermaker Ship Name Role Phone Valeri Lerner DO Primary Care Provider +1- [phone] Reason for Visit * Reason Onset Date Comments Hospital Follow-up 06/13/2025 Encounter Details Date Type Department Care Team (Late st Contact Info) Description 06/13/2025 Telephone [facility] MEDICINE [address] [place], [place] [phone] Valeri Lerner DO [address] [place], [place] [phone] Hospital Follow-up Social History Tobacco Use Types [...] from pt requesting a HDF appt. [facility]: [facility] Date of admission: apr on date Discharge date: 06/12/25 Diagnosed: leg swelling Please contact daughter at [phone]. documented in this encounter Plan of Treatment Upcoming Encounters Date Type Department Care Team (Late st Contact Info) Description 08/05/2025 10:45 AM EST Office Visit [facility] MEDICINE [address] [place], [place] [phone] Ericka Sarmiento MD [address] [place] [address] documented as of this encounter Goals Goal [...] documented as of this encounter Care Teams Boilermaker Ship Relationship Specialty Start Date End Date Valeri Lerner DO [address] [place] [address] PCP - General Family Medicine 07/13/12 [employer] 12/08/23 documented as of this encounter
--- OUTSIDE RECORDS SUMMARY | 2025-07-21 11:37 | XMS_ITS | Encounter Summary ---
Author Organization [facility] Address [address] [place] [address] Care Team Providers Care Workforce Development Vice President Name Role Phone Valeri Lerner Primary Care Provider +1- [phone] Encounter Details Date Type Department Care Team (Late st Contact Info) Description 06/04/2025 Lab Requisition [facility] - Main Lab [address] [place] [address] Macario Green MD [address] [place], [place] [phone] Paroxysmal atrial fibrillation (CMS/HCC V24, CMS/HCC V28) [...] LAB COAGULATION METHOD 06/04/2025 10:08 AM EST [facility] INR 1.5 LAB COAGULATION METHOD 06/04/2025 10:08 AM [facility] Blood Venous blood specimen / Unknown Venipuncture / Unknown 06/04/2025 5:27 AM EST 06/04/2025 8:54 AM EST us Macario Green MD LAB BLOOD ORDERABLES Final R esult [facility] ([facility]) [facility] [address] [place] [address], documented in this encounter Visit Diagnoses Diagnosis Paroxysmal atrial fibrillation (CMS/HCC V24, CMS/HCC V28) Atrial fibrillation documented in this encounter Care Teams Workforce Development Vice President Relationship Specialty Start Date End Date Valeri Lerner DO [address] [place] [address] PCP - General 11/15/14 documented as of this encounter
--- OUTSIDE RECORDS SUMMARY | 2025-07-21 11:37 | XMS_ITS | Encounter Summary ---
Author Organization [employer] Address [address] [place] [address] [address] [place] [address] Care Team Providers Care Control Operator Name Role Phone Valeri Lerner DO Primary Care Provider [phone] Batsheva Gomez PharmD Unavailable [phone] Encounter Details Date Type Department Care Team (Late st Contact Info) Description 08/03/2022 Orders Only [facility] [address] [place], [place] [phone] Valeri Renner LPN Social History Tobacco Use [...] Visit [facility] MEDICINE [address] [place] [address] Ericka Sarmiento MD [address] [place], [place] [phone] documented as of this encounter Procedures Procedure [...] EST) Protime 26.1(H) 11.1 - 13.5 sec [facility] 07/14/2023 11:0 7 AM EST 07/14/2023 11:08 AM EST us Generic External Data Provider LAB BLOOD ORDERAB LES Final Result [facility] [address] [place] [address] [phone] * (ABNORMAL) ~PT, ~INR - [facility]TI [facility] (07/14/2023 11:07 AM EST) Prothrombin Time INR 2.2(H) 0.9 - 1.1 [facility] Comment:METER #: [id number] TERNATIONAL NORMALIZED RATIO (INR) REFERENCE RANGES Reference [...] ORDERAB LES Final Result Performing Organization Address [facility] [[email or web address]] Co de Phone Number [facility] [address] [place] [phone] * (ABNORMAL) PROTHROMBIN TIME WHOLE BLD POC (06/09/2023 11:34 AM EST) Protime 23.9(H) 11.1 - 13.5 sec [facility] 06/09/2023 11:3 4 AM EST 06/09/2023 11:36 AM EST Generic External Data Provider LAB BLOOD ORDERAB LES Final Result Performing Organization Address [facility] de Phone Number [facility] [address] [place] [phone] * (ABNORMAL) ~PT, ~INR - ANTI [facility]AG CLINIC (06/09/2023 11:34 AM EST) Prothrombin Time INR 2.0(H) 0.9 - 1.1 [facility] Comment:METER #: [id number] TERNATIONAL NORMALIZED RATIO (INR) REFERENCE RANGES Reference [...] Final Result Performing Organization Address [facility] de Phone Number [facility] [address] [place] [phone] * (ABNORMAL) PROTHROMBIN TIME WHOLE BLD POC (03/22/2023 11:23 AM EDT) Protime 38.5(H) 11.1 - 13.5 sec [facility] 03/22/2023 11:2 3 AM EDT 03/22/2023 11:25 AM EDT Generic External Data Provider LAB BLOOD ORDERAB LES Final Result Performing Organization Address [facility] Phone Number [facility] [address] [place] [phone] * (ABNORMAL) ~PT, ~INR - ANTI COAG CLINIC (03/22/2023 11:23 AM EDT) Prothrombin Time INR 3.2(H) 0.9 - 1.1 [facility] Comment:METER #: [id number] TERNATIONAL NORMALIZED RATIO (INR) REFERENCE RANGES Reference [...] 3 AM EDT 03/22/2023 11:25 AM EDT [facility] External Provider LAB BLO OD ORDERABLES Final Result Performing Organization Address [facility] de Phone Number [facility] [address] [place] [phone] * (ABNORMAL) PROTHROMBIN TIME WHOLE BLD POC (03/01/2023 11:31 AM EDT) Protime 26.8(H) 11.1 - 13.5 sec [facility] 03/01/2023 11:3 1 AM EDT 03/01/2023 11:33 AM EDT Generic External Data Provider LAB BLOOD ORDERAB LES Final Result Performing Organization Address City/[facility]/ZIP Co de Phone Number [facility] [address] [place] [address] [phone] * (ABNORMAL) ~PT, ~INR - ANTI COAG CLINIC (03/01/2023 11:31 AM EDT) Prothrombin Time INR 2.2(H) 0.9 - 1.1 [facility] Comment:METER #: [id number] TERNATIONAL NORMALIZED RATIO (INR) REFERENCE RANGES Reference [...] 1 AM EDT 03/01/2023 11:33 AM EDT [facility] External Provider LAB BLO OD ORDERABLES Final Result Performing Organization Address City/[facility]/ZIP Co de Phone Number [facility] [address] [place] [address] [phone] * (ABNORMAL) PROTHROMBIN TIME WHOLE BLD POC (02/08/2023 11:20 AM EDT) Protime 26.7(H) 11.1 - 13.5 sec [facility] 02/08/2023 11:2 0 AM EDT 02/08/2023 11:22 AM EDT [facility] External Provider LAB BLO OD ORDERABLES Final Result Performing Organization Address [facility] [[email or web address]] Co de Phone Number [facility] [address] [place] [address] [phone] * (ABNORMAL) ~PT, ~INR - ANTI COAG CLINIC (02/08/2023 11:20 AM EDT) Prothrombin Time INR 2.2(H) 0.9 - 1.1 [facility] Comment:METER #: [id number] TERNATIONAL NORMALIZED RATIO (INR) REFERENCE RANGES Reference [...] 0 AM EDT 02/08/2023 11:22 AM EDT [facility] External Provider LAB BLO OD ORDERABLES Final Result Performing Organization Address [facility] [[email or web address]] Co de Phone Number [facility] [address] [place] [address] [phone] * (ABNORMAL) PROTHROMBIN TIME WHOLE BLD POC (01/18/2023 2:41 PM EDT) Protime 25.7(H) 11.1 - 13.5 sec [facility] 01/18/2023 2:41 PM EDT 01/18/2023 2:43 PM EDT [facility] External Provider LAB BLO OD ORDERABLES Final Result Performing Organization Address City/[facility] [[email or web address]] Co de Phone Number [facility] [address] [place] [address] [phone] * (ABNORMAL) ~PT, ~INR - ANTI [facility]AG CLINIC (01/18/2023 2:41 PM EDT) Prothrombin Time INR 2.1(H) 0.9 - 1.1 [facility] Comment:METER #: [id number] TERNATIONAL NORMALIZED RATIO (INR) REFERENCE RANGES Reference [...] 2:41 PM EDT 01/18/2023 2:43 PM EDT [facility] External Provider LAB BLO OD ORDERABLES Final Result Performing Organization Address [facility] [[email or web address]] Co de Phone Number [facility] [address] [place] [address] [phone] * (ABNORMAL) PROTHROMBIN TIME WHOLE BLD POC (12/30/2022 11:46 AM EDT) Protime 20.5(H) 11.1 - 13.5 sec [facility] 12/30/2022 11:4 6 AM EDT 12/30/2022 11:48 AM EDT [facility] External Provider LAB BLO OD ORDERABLES Final Result Performing Organization Address [facility] [[email or web address]] Co de Phone Number [facility] [address] [place] [address] [phone] * (ABNORMAL) ~PT, ~INR - ANTI COAG CLINIC (12/30/2022 11:46 AM EDT) Prothrombin Time INR 1.7(H) 0.9 - 1.1 [facility] Comment:METER #: [id number] TERNATIONAL NORMALIZED RATIO (INR) REFERENCE RANGES Reference [...] 6 AM EDT 12/30/2022 11:48 AM EDT [facility] External Provider LAB BLO OD ORDERABLES Final Result Performing Organization Address [facility]/ZIP Co de Phone Number [facility] [address] [place] [phone] * (ABNORMAL) PROTHROMBIN TIME WHOLE BLD POC (12/15/2022 10:26 AM EDT) Protime 23.7(H) 11.1 - 13.5 sec [facility] 12/15/2022 10:2 6 AM EDT 12/15/2022 10:28 AM EDT [facility] External Provider LAB BLO OD ORDERABLES Final Result Performing Organization Address City/[facility]/ZIP Co de Phone Number [facility] [address] [place] [address] [phone] * (ABNORMAL) ~PT, ~INR - ANTI [facility]AG CLINIC (12/15/2022 10:26 AM EDT) Prothrombin Time INR 2.0(H) 0.9 - 1.1 [facility] Comment:METER #: [id number] TERNATIONAL NORMALIZED RATIO (INR) REFERENCE RANGES Reference [...] 6 AM EDT 12/15/2022 10:28 AM EDT [facility] External Provider LAB BLO OD ORDERABLES Final Result Performing Organization Address [facility] [[email or web address]] Co de Phone Number [facility] [address] [place] [phone] * (ABNORMAL) PROTHROMBIN TIME WHOLE BLD POC (11/30/2022 11:01 AM EDT) Protime 21.3(H) 11.1 - 13.5 sec [facility] 11/30/2022 11:0 1 AM EDT 11/30/2022 11:04 AM EDT [facility] External Provider LAB BLO OD ORDERABLES Final Result Performing Organization Address [facility] [[email or web address]] Co de Phone Number [facility] [address] [place] [phone] * (ABNORMAL) ~PT, ~INR - ANTI COAG CLINIC (11/30/2022 11:01 AM EDT) Prothrombin Time INR 1.8(H) 0.9 - 1.1 [facility] Comment:METER #: [id number] TERNATIONAL NORMALIZED RATIO (INR) REFERENCE RANGES Reference [...] 1 AM EDT 11/30/2022 11:04 AM EDT [facility] External Provider LAB BLO OD ORDERABLES Final Result Performing Organization Address [facility] de Phone Number [facility] [address] [place] [phone] * (ABNORMAL) PROTHROMBIN TIME WHOLE BLD POC (11/09/2022 10:29 AM EDT) Protime 28.8(H) 11.1 - 13.5 sec [facility] 11/09/2022 10:2 9 AM EDT 11/09/2022 10:30 AM EDT [facility] External Provider LAB BLO OD ORDERABLES Final Result Performing Organization Address [facility] de Phone Number [facility] [address] [place] [phone] * (ABNORMAL) ~PT, ~INR - ANTI COAG CLINIC (11/09/2022 10:29 AM EDT) Prothrombin Time INR 2.4(H) 0.9 - 1.1 [facility] Comment:METER #: [id number] TERNATIONAL NORMALIZED RATIO (INR) REFERENCE RANGES Reference [...] 9 AM EDT 11/09/2022 10:30 AM EDT [facility] External Provider LAB BLO OD ORDERABLES Final Result Performing Organization Address City/[facility]/ZIP Co de Phone Number [facility] [address] [place] [address] [phone] * (ABNORMAL) Basic Metabolic Panel (10/05/2022 10:02 AM EST) Sodium 146(H) 135 - 145 mmol/L [facility] Potassium 3.4 3.3 - 5.1 mmol/L [facility] Chloride 105 96 - 108 mmol/L [facility] Carbon Dioxide 29 22 - 29 mmol/L [facility] Anion Gap 15 12 - 20 [facility] Urea Nitrogen (BUN) 20(H) 9 - 16 mg/dL [facility] Creatinine, Serum 0.96 0.5 - 1.4 mg/dL [facility] Estimated Glomerular Filt Rate 55 [facility] Comment:NOTE: For -Am erican individuals, multiply the result by 1.210.Chronic Kidney Disease: Estimated GFR < 60 mL/min/1.05o2Qrqyts Kidney Disease: Estimated GFR < 15 mL/min/1.73m2 Glucose 28(LL) 60 - 115 mg/dL [facility] Comment:Critical value for t est(GLUR): Results called to and readback by: TONI Guerra LPN Person calling: PATRICIA Date:10/05/22 Time: 1112 Calcium 9.3 8.4 - 10.2 mg/dL [facility] 10/05/2022 10:0 2 AM EST 10/05/2022 10:31 AM EST us [facility] External Provider LAB BLO OD ORDERABLES Final Result Performing Organization Address [facility]/ZIP Co de Phone Number [facility] [address] [place] [address] [phone] * (ABNORMAL) Prothrombin Time-INR (10/05/2022 10:02 AM EST) Prothrombin Time 72.7(H) 10.0 - 13.1 SEC [facility] INTERNATIONAL NORM RATIO 5.9(HH) 0.9 - 1.1 [facility] Comment:RESULTS OF INR VO D TO [...] 2 AM EST 10/05/2022 10:31 AM EST [facility] External Provider LAB BLO OD ORDERABLES Final Result [facility] [address] [place] [address] [phone] * (ABNORMAL) CBC auto differential (10/05/2022 10:02 AM EST) White Blood Count 10.8 4.8 - 10.8 X10*3/uL [facility] Red Blood Count 4.02(L) 4.20 - 5.50 X10*6/uL [facility] Hemoglobin 12.3 12.0 - 16.0 g/dl [facility] Hematocrit 39.4 37.0 - 47.0 % [facility] Mean Corpuscular Volume 98.0 80.0 - 98.0 fL [facility] Mean Corpuscular Hemoglobin 30.6 27.0 - 33.0 pg [facility] Mean Corpuscular HGB Conc 31.2 31.0 - 35.0 g/dl [facility] Red Cell Distribution Width 13.4 11.0 - 16.0 % [facility] Platelet Count 217 160 - 400 X10*3/uL [facility] Mean Platelet Volume 10.9 9.4 - 12.3 fL [facility] Neutrophils Percent Auto 58.6 45 - 73 % [facility] Imm Gran Pct Auto 0.4 0.0 - 0.4 % [facility] Lymphocytes Percent Auto 31.5 20 - 40 % [facility] Monocytes Percent Auto 5.8 2 - 11 % [facility] Eosinophils Percent Auto 3.1 0 - 4 % [facility] Basophils Percent Auto 0.6 0 - 2 % [facility] NRBC Pct Auto 0.0 0.0 - 0.2 /100WBC [facility] Neutrophils Absolute Auto 6.3 2.0 - 8.3 x10*3/uL [facility] Imm Gran Abs Auto 0.04(H) 0.00 - 0.03 X10*3/uL [facility] Lymphocytes Absolute Auto 3.4 1.2 - 4.9 X10*3/uL [facility] Monocytes Absolute Auto 0.6 0.1 - 1.2 X10*3/uL [facility] Eosinophils Absolute Auto 0.3 0.0 - 0.4 X10*3/uL [facility] Basophils Absolute Auto 0.1 0.0 - 0.2 X10*3/uL [facility] NRBC Abs Auto 0.000 0.0 - 0.012 X10*3/uL [facility] 10/05/2022 10:0 2 AM EST 10/05/2022 10:31 AM EST us [facility] External Provider LAB BLO OD ORDERABLES Final Result [facility] [address] [place] [phone] * (ABNORMAL) Prothrombin Time-INR (10/03/2022 2:57 PM EST) Prothrombin Time 92.9(H) 10.0 - 13.1 SEC [facility] INTERNATIONAL NORM RATIO 7.4(HH) 0.9 - 1.1 [facility] Comment:RESULTS OF INR VO D TO [...] PM EST 10/03/2022 3:20 PM EST us [facility] External Provider LAB BLO OD ORDERABLES Final Result [facility] [address] [place] [phone] * (ABNORMAL) CBC auto differential (09/20/2022 11:35 AM EST) White Blood Count 9.1 4.8 - 10.8 X10*3/uL [facility] Red Blood Count 4.06(L) 4.20 - 5.50 X10*6/uL [facility] Hemoglobin 12.6 12.0 - 16.0 g/dl [facility] Hematocrit 39.2 37.0 - 47.0 % [facility] Mean Corpuscular Volume 96.6 80.0 - 98.0 fL [facility] Mean Corpuscular Hemoglobin 31.0 27.0 - 33.0 pg [facility] Mean Corpuscular HGB Conc 32.1 31.0 - 35.0 g/dl [facility] Red Cell Distribution Width 13.7 11.0 - 16.0 % [facility] Platelet Count 127(L) 160 - 400 X10*3/uL [facility] Mean Platelet Volume 11.2 9.4 - 12.3 fL [facility] Neutrophils Percent Auto 85.6(H) 45 - 73 % [facility] Imm Gran Pct Auto 0.2 0.0 - 0.4 % [facility] Lymphocytes Percent Auto 9.6(L) 20 - 40 % [facility] Monocytes Percent Auto 4.4 2 - 11 % [facility] Eosinophils Percent Auto 0.0 0 - 4 % [facility] Basophils Percent Auto 0.2 0 - 2 % [facility] NRBC Pct Auto 0.0 0.0 - 0.2 /100WBC [facility] Neutrophils Absolute Auto 7.7 2.0 - 8.3 x10*3/uL [facility] Imm Gran Abs Auto 0.02 0.00 - 0.03 X10*3/uL [facility] Lymphocytes Absolute Auto 0.9(L) 1.2 - 4.9 X10*3/uL [facility] Monocytes Absolute Auto 0.4 0.1 - 1.2 X10*3/uL [facility] Eosinophils Absolute Auto 0.0 0.0 - 0.4 X10*3/uL [facility] Basophils Absolute Auto 0.0 0.0 - 0.2 X10*3/uL [facility] NRBC Abs Auto 0.000 0.0 - 0.012 X10*3/uL [facility] 09/20/2022 11:3 5 AM EST 09/20/2022 11:39 AM EST [facility] External Provider LAB BLO OD ORDERABLES Final Result [facility] [address] [place] [phone] * SARS-CoV-2 RNA, Influenza A/B, and RSV RNA, Ql NAAT (09/20/2022 11:34 AM EST) Influenza A PCR NEGATIVE Negative [facility] Influenza B PCR NEGATIVE Negative [facility] Resp Syncy Virus RNA Qual PCR NEGATIVE Negative [facility] SARS COV2 PCR NEGATIVE Negative [facility] SARS/Flu/RSV Note See Note [facility] Comment:All test results mus t be [...] use by authorized laboratories.Testing performed on the [employer] GeneXpert utilizingreal-time RT-PCR.All SARS CoV2 and positive influenza A/B results arereported to [facility]. 09/20/2022 11:3 4 AM EST 09/20/2022 11:51 AM EST [facility] Exter nal Provider LAB MICROBIOLOGY - GENERAL ORDERABLES Final Result Performing Organization Address City/[facility]/ZIP Co de Phone Number [facility] [address] [place] [phone] * TSH W/Reflex to FT4 (09/20/2022 11:34 AM EST) TSH reflex Free T4 0.75 0.32 - 4.0 uIU/mL [facility] 09/20/2022 11:3 4 AM EST 09/20/2022 11:39 AM EST [facility] External Provider LAB BLO OD ORDERABLES Final Result Performing Organization Address [facility]/ZIP Co de Phone Number [facility] [address] [place] [phone] * (ABNORMAL) B Type Natriuretic Peptide (BNP) (09/20/2022 11:34 AM EST) B Type Natriuretic Peptide 421(H) <100 pg/mL [facility] Comment:For those patients w ho are being treated with Natrecor(nesiritide, recombinant BNP), BNP testing should beperformed at least two hours post treatment in order toensure that only endogenous levels of BNP are detected. 09/20/2022 11:3 4 AM EST 09/20/2022 11:39 AM EST [facility] External Provider LAB BLO OD ORDERABLES Final Result Performing Organization Address [facility] [[email or web address]] Co de Phone Number [facility] [address] [place] [address] [phone] * Lipase (09/20/2022 11:34 AM EST) Lipase 55 8 - 78 U/L [facility] 09/20/2022 11:3 4 AM EST 09/20/2022 11:39 AM EST [facility] External Provider LAB BLO OD ORDERABLES Final Result Performing Organization Address [facility] Phone Number [facility] [address] [place] [phone] * Magnesium (09/20/2022 11:34 AM EST) Pathologist [facility] Magnesium 1.6 1.6 - 2.6 mg/dL [facility] 09/20/2022 11:3 4 AM EST 09/20/2022 11:39 AM EST [facility] External Provider LAB BLO OD ORDERABLES Final Result Performing Organization Address [facility] de Phone Number [facility] [address] [place] [phone] * (ABNORMAL) Comprehensive Metabolic Panel (09/20/2022 11:34 AM EST) Sodium 137 135 - 145 mmol/L [facility] Potassium 3.8 3.3 - 5.1 mmol/L [facility] Chloride 99 96 - 108 mmol/L [facility] Carbon Dioxide 30(H) 22 - 29 mmol/L [facility] Anion Gap 12 12 - 20 [facility] Urea Nitrogen (BUN) 22(H) 9 - 16 mg/dL [facility] Creatinine, Serum 1.08 0.5 - 1.4 mg/dL [facility] Creatinine Clr Calc Pharmacy 40.4 [facility] Comment:Provided height and weight: 157.48 cm,99.4 kg.eGFR (calculated from the MDRD study equation) and eCrCl(calculated from the Cockcroft-Gault equation) are based ondifferent parameters and may not yield comparable results.If eCrCl result is absurd, please check patient'sheight/weight. Estimated Glomerular Filt Rate 48 [facility] Comment:NOTE: For -Am erican individuals, multiply the result by 1.210.Chronic Kidney Disease: Estimated GFR < 60 mL/min/1.40l7Vidbga Kidney Disease: Estimated GFR < 15 mL/min/1.73m2 Glucose 253(H) 60 - 115 mg/dL [facility] Calcium 9.1 8.4 - 10.2 mg/dL [facility] Bilirubin, Total 0.8 0.0 - 1.0 mg/dL [facility] Aspartate Amino Transferase 24 5 - 31 U/L [facility] Alanine Aminotransferase 21 0 - 31 U/L [facility] Total Protein 7.1 6.5 - 8.0 g/dL [facility] Albumin Level 3.7 3.5 - 5.0 g/dL [facility] Alkaline Phosphatase 105 39 - 117 U/L [facility] 09/20/2022 11:3 4 AM EST 09/20/2022 11:39 AM EST us [facility] External Provider LAB BLO OD ORDERABLES Final Result [facility] [address] [place] [phone] Lactic Acid (09/20/2022 11:34 AM EST) Lactic Acid 1.1 0.5 - 2.0 mmol/L [facility] 09/20/2022 11:3 4 AM EST 09/20/2022 11:39 AM EST [facility] External Provider LAB BLO OD ORDERABLES Final Result Performing Organization Address [facility] [[email or web address]] Co de Phone Number [facility] [address] [place] [phone] * (ABNORMAL) Prothrombin Time-INR (09/20/2022 11:34 AM EST) Prothrombin Time 18.3(H) 10.0 - 13.1 SEC [facility] INTERNATIONAL NORM RATIO 1.6(H) 0.9 - 1.1 [facility] Comment:INTERNATIONAL NORMAL IZED RATIO (INR) REFERENCE [...] 4 AM EST 09/20/2022 11:39 AM EST [facility] External Provider LAB BLO OD ORDERABLES Final Result Performing Organization Address [facility] [[email or web address]] Co de Phone Number [facility] [address] [place] [address] [phone] * (ABNORMAL) PROTHROMBIN TIME WHOLE BLD POC (09/12/2022 10:21 AM EST) Protime 24.5(H) 11.1 - 13.5 sec [facility] 09/12/2022 10:2 1 AM EST 09/12/2022 10:22 AM EST [facility] External Provider LAB BLO OD ORDERABLES Final Result Performing Organization Address City/[facility]/ZIP Co de Phone Number [facility] [address] [place] [address] [phone] * (ABNORMAL) ~PT, ~INR - ANTI COAG CLINIC (09/12/2022 10:21 AM EST) Prothrombin Time INR 2.0(H) 0.9 - 1.1 [facility] Comment:METER #: [id number] TERNATIONAL NORMALIZED RATIO (INR) REFERENCE RANGES Reference [...] 1 AM EST 09/12/2022 10:22 AM EST [facility] External Provider LAB BLO OD ORDERABLES Final Result Performing Organization Address [facility] [[email or web address]] Co de Phone Number [facility] [address] [place] [address] [phone] * (ABNORMAL) PROTHROMBIN TIME WHOLE BLD POC (08/29/2022 10:11 AM EST) Protime 20.9(H) 11.1 - 13.5 sec [facility] 08/29/2022 10:1 1 AM EST 08/29/2022 10:15 AM EST [facility] External Provider LAB BLO OD ORDERABLES Final Result Performing Organization Address [facility] [[email or web address]] Co de Phone Number [facility] [address] [place] [address] [phone] * (ABNORMAL) ~PT, ~INR - ANTI COAG CLINIC (08/29/2022 10:11 AM EST) Prothrombin Time INR 1.7(H) 0.9 - 1.1 [facility] Comment:METER #: [id number] TERNATIONAL NORMALIZED RATIO (INR) REFERENCE RANGES Reference [...] 1 AM EST 08/29/2022 10:15 AM EST [facility] External Provider LAB BLO OD ORDERABLES Final Result Performing Organization Address City/[facility] [[email or web address]] Co de Phone Number [facility] [address] [place] [address] [phone] * (ABNORMAL) PROTHROMBIN TIME WHOLE BLD POC (08/18/2022 1:12 PM EST) Protime 22.1(H) 11.1 - 13.5 sec [facility] 08/18/2022 1:12 PM EST 08/18/2022 1:14 PM EST [facility] External Provider LAB BLO OD ORDERABLES Final Result Performing Organization Address City/[facility] [[email or web address]] Co de Phone Number [facility] [address] [place] [phone] * (ABNORMAL) ~PT, ~INR - ANTI COAG CLINIC (08/18/2022 1:12 PM EST) Prothrombin Time INR 1.8(H) 0.9 - 1.1 [facility] Comment:METER #: [id number] TERNATIONAL NORMALIZED RATIO (INR) REFERENCE RANGES Reference [...] 1:12 PM EST 08/18/2022 1:14 PM EST [facility] External Provider LAB BLO OD ORDERABLES Final Result [facility] [address] [place] [phone] [phone] documented in this encounter Visit Diagnoses Not on filedocumented in this encounter Care Teams Control Operator Relationship Specialty Start Date End Date Valeri Lerner DO [address] [place] [address] PCP - General Family Medicine 07/13/12 Batsheva Gomez PharmD [address] [place] [address] Pharmacist Internal Medicine 03/07/24 12/19/24 [employer] 12/08/23 documented as of this encounter
--- OUTSIDE RECORDS SUMMARY | 2025-07-21 11:37 | XMS_ITS | Encounter Summary ---
Author Organization [facility] [address] Address [address] [place] [address] Care Team Providers Care Coyote Hunter Name Role Phone Valeri Lerner Primary Care Provider +1- [phone] Encounter Details Date Type Department Care Team (Late st Contact Info) Description 06/09/2025 Lab Requisition [facility] - Main Lab [address] [place] [address] Macario Green MD [address] [place], [place] [phone] Unspecified atrial fibrillation (CMS/HCC V24, CMS/HCC V28) [...] LAB COAGULATION METHOD 06/09/2025 10:54 AM EST [facility] INR 3.1 LAB COAGULATION METHOD 06/09/2025 10:54 AM [facility] Blood Venous blood specimen / Unknown Venipuncture / Unknown 06/09/2025 8:05 AM EST 06/09/2025 10:05 AM EST us Macario Green MD LAB BLOOD ORDERABLES Final R esult [facility] ([facility]) [facility] [address] [place] [address], documented in this encounter Visit Diagnoses Diagnosis Unspecified atrial fibrillation (CMS/HCC V24, CMS/HCC V28) documented in this encounter Care Teams Coyote Hunter Relationship Specialty Start Date End Date Valeri Lerner DO [address] [place] [address] PCP - General 11/15/14 documented as of this encounter
--- OUTSIDE RECORDS SUMMARY | 2025-07-21 11:37 | XMS_ITS | Encounter Summary ---
Author Organization [facility] Address [address] [place] [address] Care Team Providers Care Commissioner Conservation Of Resources Name Role Phone Valeri Lerner Primary Care Provider +1- [phone] Encounter Details Date Type Department Care Team (Late st Contact Info) Description 06/10/[address] [facility] - Main Lab [address] [place] [address] Macario Green MD [address] [place], [place] [phone] Unspecified atrial fibrillation (CMS/HCC V24, CMS/HCC V28) [...] LAB COAGULATION METHOD 06/10/2025 8:21 AM EST [facility] INR 2.5 LAB COAGULATION METHOD 06/10/2025 8:21 AM EST [facility] Blood Venous blood specimen / Unknown Venipuncture / Unknown 06/10/2025 6:10 AM EST 06/10/2025 8:01 AM EST us Macario Green MD LAB BLOOD ORDERABLES Final R esult [facility] ([facility]) [facility] [address] [place] [address], documented in this encounter Visit Diagnoses Diagnosis Unspecified atrial fibrillation (CMS/HCC V24, CMS/HCC V28) documented in this encounter Care Teams Commissioner Conservation Of Resources Relationship Specialty Start Date End Date Valeri Lerner DO [address] [place] [address] PCP - General 11/15/14 documented as of this encounter
--- OUTSIDE RECORDS SUMMARY | 2025-07-21 11:37 | XMS_ITS | Encounter Summary ---
Author Organization [facility] Address [address] [place] [address] Care Team Providers Care Supervisor [employer] Name Role Phone Valeri Lerner Primary Care Provider +1- [phone] Encounter Details Date Type Department Care Team (Latest Contact Info) Description 06/03/2025 Lab Requisition [facility] - Main Lab [address] [place] [address] Macario Green MD [address] [place] [address] Heart failure, unspecified (CMS/HCC V24, CMS/HCC V28); Essential (primary) hypertension; Paroxysmal atrial fibrillation (CMS/HCC V24, CMS/HCC V28); 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 Social History Tobacco [...] Paroxysmal atrial fibrillation (CMS/HCC V24, CMS/HCC V28) 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 ([facility] [address] [place] [address], documented in this encounter Visit Diagnoses Diagnosis Heart failure, unspecified (CMS/[facility] V24, [facility] V28) Heart failure, unspecified Essential (primary) hypertension Unspecified essential hypertension Paroxysmal atrial fibrillation ([facility] V24, [facility] V28) Atrial fibrillation [facility] (current) use of anticoagulants Long-term (current) use of anticoagulants documented in this encounter Care Teams Supervisor [employer] Relationship Specialty Start Date End Date Valeri Lerner DO [address] [place] [address] PCP - General 11/15/14 documented as of this encounter
--- OUTSIDE RECORDS SUMMARY | 2025-07-21 11:37 | XMS_ITS | Encounter Summary ---
Author Organization [employer] Address [address] [facility] 7t [place] [address] Care Team Providers Care Latexer Name Role Phone Valeri Lerner DO Primary Care Provider Batsheva Gomez PharmD Unavailable Reason for Visit * Reason Onset Date Comments Nurse Triage 03/25/2024 Encounter Details Date Type Department Care Team (Late st Contact Info) Description 03/25/2024 Telephone [facility] [address] [place], [place] [phone] Valeri Lerner DO [address] [place], [place] [phone] Nurse Triage Social History Tobacco Use Types [...] outcome Contact pt visiting nurse Artemio at [phone] documented in this encounter Plan of Treatment Upcoming Encounters Date Type Department Care Team (Late st Contact Info) Description 08/05/2025 10:45 AM EST Office Visit [facility] [address] [place] [address] Ericka Sarmiento MD [address] [place] [address] documented as of this encounter Goals Goal [...] documented as of this encounter Care Teams Latexer Relationship Specialty Start Date End Date Valeri Lerner DO [address] [place] [address] PCP - General Family Medicine 07/13/12 CharyiaBatsheva, PharmD [address] [place] [phone] Pharmacist Internal Medicine 03/07/24 12/19/24 [employer] 12/08/23 documented as of this encounter
--- OUTSIDE RECORDS SUMMARY | 2025-07-21 11:37 | XMS_ITS | Clinical Summary ---
Author Organization [facility] Address [address] [place] [address] Phone Care Team Providers Care Older Adult Social Work Specialist Name Role Phone Unavailable Primary Care Provider [...] is not the complete legal health record.[facility]
--- OUTSIDE RECORDS SUMMARY | 2025-07-21 11:37 | XMS_ITS | Encounter Summary ---
Author Organization [facility] Address [address] [place] [address] Care Team Providers Care Desktop Support Specialist Name Role Phone Valeri Lerner Primary Care Provider +1- [phone] Encounter Details Date Type Department Care Team (Late st Contact Info) Description 07/12/2025 Lab Requisition [facility] - Main Lab [address] [facility] [place] [address] Kymberly Horne MD [address] [phone] Essential (primary) hypertension; Unspecified atrial fibrillation (CMS/HCC [...] CBC auto differential (07/14/2025 4:44 AM EST) [facility] WBC 9.4 4.8 - 10.8 K/mcL LAB HEMETOLOGY METHOD 07/14/2025 9:47 AM [facility] RBC 3.90 3.80 - 4.80 M/mcL LAB HEMETOLOGY METHOD 07/14/2025 9:47 AM [facility] Hemoglobin 11.8 11.5 - 16.0 g/dL LAB HEMETOLOGY METHOD 07/14/2025 9:47 AM [facility] Hematocrit 37.5 35.0 - 47.0 % LAB HEMETOLOGY METHOD 07/14/2025 9:47 AM [facility] MCV 96.2 79.0 - 98.0 FL LAB HEMETOLOGY METHOD 07/14/2025 9:47 AM [facility] MCH 30.3 27.0 - 32.0 pcg LAB HEMETOLOGY METHOD 07/14/2025 9:47 AM [facility] MCHC 31.5(L) 32.0 - 37.0 g/dL LAB HEMETOLOGY METHOD 07/14/2025 9:47 AM [facility] RDW 14.3 11.0 - 15.0 % LAB HEMETOLOGY METHOD 07/14/2025 9:47 AM [facility] Platelets 200 130 - 400 K/mcL LAB HEMETOLOGY METHOD 07/14/2025 9:47 AM [facility] MPV 11.5(H) 7.0 - 11.0 FL LAB HEMETOLOGY METHOD 07/14/2025 9:47 AM [facility] NRBC 0.0 <1.0 % LAB HEMETOLOGY METHOD 07/14/2025 9:47 AM [facility] NRBC Absolute 0.00 <0.10 K/mcL LAB HEMETOLOGY METHOD 07/14/2025 9:47 AM [facility] Neutrophils Relative 60.1 % LAB HEMETOLOGY METHOD 07/14/2025 9:47 AM [facility] Lymphocytes Relative 26.9 % LAB HEMETOLOGY METHOD 07/14/2025 9:47 AM [facility] Monocytes Relative 6.3 % LAB HEMETOLOGY METHOD 07/14/2025 9:47 AM [facility] Eosinophils Relative 5.7 % LAB HEMETOLOGY METHOD 07/14/2025 9:47 AM [facility] Basophils Relative 0.7 % LAB HEMETOLOGY METHOD 07/14/2025 9:47 AM [facility] Immature Granulocytes Relative 0.3 % LAB HEMETOLOGY METHOD 07/14/2025 9:47 AM [facility] Neutrophils Absolute 5.63 1.50 - 7.00 K/mcL LAB HEMETOLOGY METHOD 07/14/2025 9:47 AM [facility] Lymphocytes Absolute 2.52 1.00 - 5.00 K/mcL LAB HEMETOLOGY METHOD 07/14/2025 9:47 AM [facility] Monocytes Absolute 0.59 0.20 - 1.00 K/[facility] LAB HEMETOLOGY METHOD 07/14/2025 9:[address] [facility] Eosinophils Absolute 0.53(H) 0.00 - 0.50 K/[facility] LAB HEMETOLOGY METHOD 07/14/2025 9:[address] [facility] Basophils Absolute 0.07 0.00 - 0.20 K/[facility] LAB HEMETOLOGY METHOD 07/14/2025 9:[address] [facility] Immature Granulocytes Absolute 0.03 0.00 - 0.03 K/[facility] LAB HEMETOLOGY METHOD 07/14/2025 9:[address] [facility] Blood Venous blood specimen / Unknown Venipuncture / Unknown 07/14/2025 4:44 AM EST 07/14/2025 9:35 AM EST Kymberly Horne MD LAB BLOOD ORDERABLES Fin al Result [facility] [address] [place] [address], [place] [phone] * (ABNORMAL) Prothrombin time with INR (07/14/2025 4:44 AM EST) Protime 16.2(H) 10.6 - 13.9 sec LAB COAGULATION METHOD 07/14/2025 9:[address] [facility] INR 1.3 LAB COAGULATION METHOD 07/14/2025 9:[address] [facility] Blood Venous blood specimen / Unknown Venipuncture / Unknown 07/14/2025 4:44 AM EST 07/14/2025 9:35 AM EST Kymberly Horne MD LAB BLOOD ORDERABLES Fin al Result [facility] [address] [place], [place] [address] [phone] * (ABNORMAL) Basic metabolic panel (07/14/2025 4:44 AM EST) Sodium 141 133 - 145 mmol/L 07/14/2025 10:16 AM [facility] Potassium 4.2 3.5 - 5.5 mmol/L 07/14/2025 10:16 AM [facility] Chloride 100 96 - 110 mmol/L 07/14/2025 10:16 AM [facility] CO2 32 21 - 32 mmol/L 07/14/2025 10:16 AM [facility] Anion Gap 9 3 - 11 07/14/2025 10:16 AM [facility] Glucose 130(H) 70 - 100 mg/dL 07/14/2025 10:16 AM [facility] BUN 32(H) 5 - 25 mg/dL 07/14/2025 10:16 AM [facility] Creatinine 1.27(H) 0.50 - 1.10 mg/dL 07/14/2025 10:16 AM [facility] eGFR 41(L) >=60 mL/min/1. 73m2 07/14/2025 10:16 AM [facility] Comment:Calculation based on the Chronic Kidney Disease Epidemiology Collaboration (CKD-EPI) equation refit without adjustment for race. BUN/Creatinine Ratio 25.2 07/14/2025 10:16 AM [facility] Calcium 9.9 8.5 - 10.5 mg/dL 07/14/2025 10:16 AM [facility] Blood Venous blood specimen / Unknown Venipuncture / Unknown 07/14/2025 4:44 AM EST 07/14/2025 9:35 AM EST Kymberly Horne MD LAB BLOOD ORDERABLES Fin al Result [facility] [address] [place] [address], documented in this encounter Visit Diagnoses Diagnosis Essential (primary) hypertension Unspecified essential hypertension Unspecified atrial fibrillation (CMS/[facility] V24, [facility] V28) Heart failure, unspecified (CMS/[facility] V24, CMS/[facility] V28) Heart failure, unspecified Chronic embolism and thrombosis of unspecified vein documented in this encounter Care Teams Desktop Support Specialist Relationship Specialty Start Date End Date Valeri Lerner DO [address] [place] [address] PCP - General 11/15/14 documented as of this encounter
--- OUTSIDE RECORDS SUMMARY | 2025-07-21 11:38 | XMS_ITS | Encounter Summary ---
Author Organization [facility] Address [address] [place] [address] Care Team Providers Care Charge Manager Name Role Phone Valeri Lerner Primary Care Provider +1- [phone] Encounter Details Date Type Department Care Team (Late st Contact Info) Description 07/02/2025 Lab Requisition [facility] - Main Lab [address] [facility] [place] [address] Kymberly Horne MD [address] [address] Essential (primary) hypertension; Unspecified atrial [...] Hemoglobin A1c (07/02/2025 8:03 AM EST) Pathologist [facility] Hemoglobin A1C 6.7(H) <6.5 % LAB CHEMISTRY METHOD 07/02/2025 2:06 PM EST [facility] Mean Bld Glu Estim. 146 mg/dL LAB CHEMISTRY METHOD 07/02/2025 2:06 PM EST [facility] Blood Venous blood specimen / Unknown Venipuncture / Unknown 07/02/2025 8:03 AM EST 07/02/2025 10:06 AM EST us Kymberly Horne MD LAB BLOOD ORDERABLES Fin al Result [facility] [address] [place] [address], * (ABNORMAL) Basic metabolic panel (07/02/2025 8:03 AM EST) Pathologist [facility] Sodium 142 133 - 145 mmol/L 07/02/2025 10:45 AM EST [facility] Potassium 3.9 3.5 - 5.5 mmol/L 07/02/2025 10:45 AM EST [facility] Chloride 99 96 - 110 mmol/L 07/02/2025 10:45 AM EST [facility] CO2 34(H) 21 - 32 mmol/L 07/02/2025 10:45 AM [facility] Anion Gap 9 3 - 11 07/02/2025 10:45 AM [facility] Glucose 150(H) 70 - 100 mg/dL 07/02/2025 10:45 AM [facility] BUN 33(H) 5 - 25 mg/dL 07/02/2025 10:45 AM [facility] Creatinine 1.22(H) 0.50 - 1.10 mg/dL 07/02/2025 10:45 AM [facility] eGFR 43(L) >=60 mL/min/1. 73m2 07/02/2025 10:45 AM [facility] Comment:Calculation based on the Chronic Kidney Disease Epidemiology Collaboration (CKD-EPI) equation refit without adjustment for race. BUN/Creatinine Ratio 27.0 07/02/2025 10:45 AM [facility] Calcium 9.8 8.5 - 10.5 mg/dL 07/02/2025 10:45 AM [facility] Blood Venous blood specimen / Unknown Venipuncture / Unknown 07/02/2025 8:03 AM EST 07/02/2025 10:06 AM EST us Kymberly Horne MD LAB BLOOD ORDERABLES Fin al Result [facility] [address] [place] [address], * (ABNORMAL) Prothrombin time with INR (07/02/2025 8:03 AM EST) Protime 34.2(H) 10.6 - 13.9 sec LAB COAGULATION METHOD 07/02/2025 10:43 AM [facility] INR 2.8 LAB COAGULATION METHOD 07/02/2025 10:43 AM [facility] Blood Venous blood specimen / Unknown Venipuncture / Unknown 07/02/2025 8:03 AM EST 07/02/2025 10:06 AM EST us Kymberly Horne MD LAB BLOOD ORDERABLES Fin al Result [facility] [address] [place] [address], * (ABNORMAL) Complete blood count (07/02/2025 8:03 AM EST) WBC 9.9 4.8 - 10.8 K/mcL LAB HEMETOLOGY METHOD 07/02/2025 10:20 AM [facility] RBC 4.10 3.80 - 4.80 M/mcL LAB HEMETOLOGY METHOD 07/02/2025 10:20 AM [facility] Hemoglobin 12.3 11.5 - 16.0 g/dL LAB HEMETOLOGY METHOD 07/02/2025 10:20 AM [facility] Hematocrit 39.1 35.0 - 47.0 % LAB HEMETOLOGY METHOD 07/02/2025 10:20 AM [facility] MCV 96.5 79.0 - 98.0 FL LAB HEMETOLOGY METHOD 07/02/2025 10:20 AM [facility] MCH 30.4 27.0 - 32.0 pcg LAB HEMETOLOGY METHOD 07/02/2025 10:20 AM [facility] MCHC 31.5(L) 32.0 - 37.0 g/dL LAB HEMETOLOGY METHOD 07/02/2025 10:20 AM [facility] RDW 14.4 11.0 - 15.0 % LAB HEMETOLOGY METHOD 07/02/2025 10:20 AM [facility] Platelets 195 130 - 400 K/mcL LAB HEMETOLOGY METHOD 07/02/2025 10:20 AM EST [facility] MPV 11.3(H) 7.0 - 11.0 FL LAB HEMETOLOGY METHOD 07/02/2025 10:20 AM EST [facility] NRBC 0.0 <1.0 % LAB HEMETOLOGY METHOD 07/02/2025 10:20 AM EST [facility] NRBC Absolute 0.00 <0.10 K/mcL LAB HEMETOLOGY METHOD 07/02/2025 10:20 AM EST [facility] Blood Venous blood specimen / Unknown Venipuncture / Unknown 07/02/2025 8:03 AM EST 07/02/2025 10:06 AM EST us Kymberly Horne MD LAB BLOOD ORDERABLES Fin al Result [facility] [address] [place] [address], documented in this encounter Visit Diagnoses Diagnosis Essential (primary) hypertension Unspecified essential hypertension Unspecified atrial fibrillation (CMS/HCC V24, CMS/HCC V28) 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
--- OUTSIDE RECORDS SUMMARY | 2025-07-21 11:38 | XMS_ITS | Encounter Summary ---
Author Organization [employer] Address [address] [place] [address] 7[address] [place] [address] Care Team Providers Care Process Safety Specialist Name Role Phone Valeri Lerner DO Primary Care Provider [phone] Batsheva Gomez PharmD Unavailable [phone] Encounter Details Date Type Department Care Team (Latest Contact Info) Description 11/11/2020 Abstract [facility] CONVERSIONS Dental, Provider, DDS Social History [...] Description 08/05/2025 10:45 AM EST Office Visit [facility] MEDIC[facility] [address] [place], [place] [phone] Ericka Sarmiento MD [address] [place], [place] [phone] documented as of this encounter Visit Diagnoses Not on filedocumented in this encounter Care Teams Process Safety Specialist Relationship Specialty Start Date End Date Valeri LernerDO [address] [place] [address] PCP - General Family Medicine 07/13/12 Batsheva Gomez PharmD [address] [place] [address] Pharmacist Internal Medicine 03/07/24 12/19/24 [employer] 12/08/23 documented as of this encounter
--- OUTSIDE RECORDS SUMMARY | 2025-07-21 11:38 | XMS_ITS | Encounter Summary ---
Author Organization [facility] Address [address] [place] [address] Care Team Providers Care Medical Services Manager Name Role Phone Valeri Lerner Primary Care Provider +1- [phone] Encounter Details Date Type Department Care Team (Late st Contact Info) Description 07/03/2025 Lab Requisition [facility] - Main Lab [address] [place] [address] Kymberly Horne MD [address] [phone] Chronic embolism and thrombosis of unspecified vein [...] LAB COAGULATION METHOD 07/04/2025 9:50 AM EST [facility] INR 2.9 LAB COAGULATION METHOD 07/04/2025 9:50 AM EST [facility] Blood Venous blood specimen / Unknown Venipuncture / Unknown 07/04/2025 7:17 AM EST 07/04/2025 8:59 AM EST us Kymberly Horne MD LAB BLOOD ORDERABLES Fin al Result [facility] [address] [place] [address], documented in this encounter Visit Diagnoses Diagnosis Chronic embolism and thrombosis of unspecified vein documented in this encounter Care Teams Medical Services Manager Relationship Specialty Start Date End Date Valeri Lerner DO [address] [place] [address] PCP - General 11/15/14 documented as of this encounter
--- OUTSIDE RECORDS SUMMARY | 2025-07-21 11:38 | XMS_ITS | Encounter Summary ---
Author Organization [facility] Address [address] [place] [address] Care Team Providers Care Assembler Engine Name Role Phone Valeri Lerner Primary Care Provider [phone]- [phone] Encounter Details Date Type Department Care Team (Late st Contact Info) Description 07/04/2025 Lab Requisition [facility] [address] [facility] [place] [address] Kymberly Horne MD [address] [id number] Essential (primary) hypertension; Unspecified atrial fibrillation (CMS/HCC [...] LAB COAGULATION METHOD 07/07/2025 10:20 AM EST [facility] INR 2.5 LAB COAGULATION METHOD 07/07/2025 10:20 AM [facility] Blood Venous blood specimen / Unknown Venipuncture / Unknown 07/07/2025 4:43 AM EST 07/07/2025 9:17 AM EST us Kymberly Horne MD LAB BLOOD ORDERABLES Fin al Result [facility] [address] [place] [address], * (ABNORMAL) Basic metabolic panel (07/07/2025 4:43 AM EST) Pathologist [facility] Sodium 140 133 - 145 mmol/L 07/07/2025 10:58 AM EST [facility] Potassium 4.4 3.5 - 5.5 mmol/L 07/07/2025 10:58 AM EST [facility] Chloride 99 96 - 110 mmol/L 07/07/2025 10:58 AM [facility] CO2 33(H) 21 - 32 mmol/L 07/07/2025 10:58 AM EST [facility] Anion Gap 8 3 - 11 07/07/2025 10:58 AM [facility] Glucose 98 70 - 100 mg/dL 07/07/2025 10:58 AM [facility] BUN 31(H) 5 - 25 mg/dL 07/07/2025 10:58 AM [facility] Creatinine 1.23(H) 0.50 - 1.10 mg/dL 07/07/2025 10:58 AM [facility] eGFR 42(L) >=60 mL/min/1. 73m2 07/07/2025 10:58 AM [facility] Comment:Calculation based on the Chronic Kidney Disease Epidemiology Collaboration (CKD-EPI) equation refit without adjustment for race. BUN/Creatinine Ratio 25.2 07/07/2025 10:58 AM [facility] Calcium 9.7 8.5 - 10.5 mg/dL 07/07/2025 10:58 AM [facility] Blood Venous blood specimen / Unknown Venipuncture / Unknown 07/07/2025 4:43 AM EST 07/07/2025 9:17 AM EST us Kymberly Horne MD LAB BLOOD ORDERABLES Fin al Result [facility] [address] [place] [address], * (ABNORMAL) Complete blood count (07/07/2025 4:43 AM EST) WBC 8.2 4.8 - 10.8 K/mcL LAB HEMETOLOGY METHOD 07/07/2025 10:20 AM [facility] RBC 3.90 3.80 - 4.80 M/mcL LAB HEMETOLOGY METHOD 07/07/2025 10:20 AM [facility] Hemoglobin 11.8 11.5 - 16.0 g/dL LAB HEMETOLOGY METHOD 07/07/2025 10:20 AM EST [facility] Hematocrit 37.3 35.0 - 47.0 % LAB HEMETOLOGY METHOD 07/07/2025 10:20 AM [facility] MCV 96.6 79.0 - 98.0 FL LAB HEMETOLOGY METHOD 07/07/2025 10:20 AM [facility] MCH 30.6 27.0 - 32.0 pcg LAB HEMETOLOGY METHOD 07/07/2025 10:20 AM EST [facility] MCHC 31.6(L) 32.0 - 37.0 g/dL LAB HEMETOLOGY METHOD 07/07/2025 10:20 AM [facility] RDW 14.0 11.0 - 15.0 % LAB HEMETOLOGY METHOD 07/07/2025 10:20 AM [facility] Platelets 184 130 - 400 K/mcL LAB HEMETOLOGY METHOD 07/07/2025 10:20 AM EST [facility] MPV 11.6(H) 7.0 - 11.0 FL LAB HEMETOLOGY METHOD 07/07/2025 10:20 AM EST [facility] NRBC 0.0 <1.0 % LAB HEMETOLOGY METHOD 07/07/2025 10:20 AM [facility] NRBC Absolute 0.00 <0.10 K/mcL LAB HEMETOLOGY METHOD 07/07/2025 10:20 AM [facility] Blood Venous blood specimen / Unknown Venipuncture / Unknown 07/07/2025 4:43 AM EST 07/07/2025 9:17 AM EST us Kymberly Horne MD LAB BLOOD ORDERABLES Fin al Result [facility] [address] [place] [address], documented in this encounter Visit Diagnoses Diagnosis Essential (primary) hypertension Unspecified essential hypertension Unspecified atrial fibrillation ([facility] V24, [facility] V28) Heart failure, unspecified ([facility] V24, [facility] V28) Heart failure, unspecified Chronic embolism and thrombosis of unspecified vein documented in this encounter Care Teams Assembler Engine Relationship Specialty Start Date End Date Valeri Lerner DO [address] [place] [address] PCP - General 11/15/14 documented as of this encounter
--- OUTSIDE RECORDS SUMMARY | 2025-07-21 11:38 | XMS_ITS | Encounter Summary ---
Author Organization [employer] Address [address] [facility] [address] [place] [address] Care Team Providers Care Business Analysis Specialist Name Role Phone Valeri Lerner DO Primary Care Provider [phone]- [phone] Reason for Visit * Reason Onset Date Comments INR care coordination-[facility] 07/02 Encounter Details Date Type Department Care Team (Late st Contact Info) Description 07/02/[address] [facility] [address] [place], [place] [phone] Valeri Lerner DO [address] [place], [place] [phone] Paroxysmal atrial fibrillation (CMS/HCC) (HCC) Social History [...] t he electric, gas, oil or water [employer] threatened to shut off services in your [...] PM EST RN received a call from [facility] pharmacy who reports the daughter demanded they call the SNF to requestmedication list be faxed to [facility]. [facility] pharmacy called SNF however they were transferred to . [facility] pharmacy reports they informed the daughter and advised the daughter to go to the SNF to obtain medication list and return to [facility] pharmacy with ALL medications and medlist. [facility] pharmacy informed daughter, they will update medboxes SAME DAY, daughter inquired on how long it would take however pharmacyinformed daughter they are unsure without knowing how many changes there are. Daughter was upset and left [facility] pharmacy. Daughter to f/u PRN. * Telephone Encounter - Cassy Rollins RN - 07/17/2025 2:03 PM EST Incoming call from [facility] pharmacy who reports patients daughter and [employer] are currently in the pharmacyinquiring on how to administer the warfarin medication to the patient. RN explained daughter and [employer] were just on the red team and RN had very lengthy conversation regarding the medication and POC: Give coumadin 5mg (from SNF) tomorrow 07/17 Give coumadin 5mg (from SNF) Wednesday 07/18 Give coumadin 5mg (from PCP prescription) Thursday 07/19 Give coumadin 5mg (from PCP prescription) Friday 07/20 Bring patient to [facility] lab on Saturday 07/21 RN will call daughter Monday PM if patient completes BW on Monday AM with new coumadin dosing. If patient goes to the lab on Monday PM, RN will contact patient on Monday with new coumadin dosing. Daughter advised if she does NOT receive a call on Monday by 4:30PM to administer coumadin [address] [facility] pharmacy verbalized understanding and reports they will re-iterate the directions/POC. * Telephone Encounter - Cassy Rollins RN - 07/17/2025 1:34 PM EST Patients daughter and [employer] Sully presented to red team with multiple bags of medications. Daughter inquiring on which medication is warfarin. RN was able to locate warfarin medication card from [facility] which still had 2 pills remaining (as expected). Daughter reports she already received it today . RN advised the patient could not have received this medication today as she still has 2 pills which is what she was discharged with from the [facility] yesterday. Daughter then reported I don't know Danny gave her the medications this morning. She got one of every pill this morning . RN notes medication cards from [facility] all had directions on them however some [...] the SNF to obtain medication list as family/[employer]ICAL [employer]ACTITION[employer] cannot administer medications correctly/safety without a medlist. Daughter advised to go to the SNF in person and request a copy of themedication list [place] and if needed to ask for a product inspection supervisor. RN re-iterated that medications the patient was on prior to hospitalization/SNF may not be current anymore and they should only administer medications on SNF medlist. Daughter reports she will go to the SNF to obtain medication list. RN re-iterated to daughter and [employer] plan regarding warfarin medication and INR POC: Give coumadin 5mg (from SNF) tomorrow 07/17 Give coumadin 5mg (from SNF) Wednesday 07/18 Give coumadin 5mg (from PCP prescription) Thursday 07/19 Give coumadin 5mg (from PCP prescription) Friday 07/20 Bring patient to [facility] lab on Saturday 07/21 RN will call [...] times when daughter is at work and [employer]ACTITION[employer]'s are not on shift. Daughter reports the [employer]ICAL [employer]ITION[employer] here today is Sully Lomeli and her phone number is [phone]. Daughter reports the patient does not want [...] alone while daughter is at work and MEDICAL [employer]ACTITIONERS's are not around which does not change the current situation. Daughter wants patient to receive more [employer] hours to prevent the patient from being alone. Daughter advised sheshould contact [facility] to request an increase in hours and [...] Centers today. Daughter advised to go to [facility], obtain medication list and return to [facility] pharmacy with ALL of the patients medications and medboxes and they will adjust them as needed (RN confirmed with [facility] pharmacy this could be completed same day). Daughter informed Sully ([employer]) will need to be added to HIPAA in order for us to communicate with her as currently the only individual on HIPAA is the daughter Catarina. RN completed HIPAA form with daughter and [employer] and new form has been scanned into [...] discuss with daughter that permanent placementin a snf might be in the patients best interest as the patient would have medical care 20/02. Daughter reports the patient does not want to be in a nursing facility however RN re-iterated being home can be dangerous if family/[employer]ICAL [employer]ACTITION[employer]'s cannot manage home medications. Daughter reports that's [...] 07/16/2025 2:52 PM EST TC returned to [facility] [phone] who reports the caseworker was informed by S yesterday that they will NOT take the patient back into services. RN was informed [facility] accepted the patient for services. RN inquired [...] with warfarin 5mg qty 2. RN called [facility] Liaison (Stan) to confirm if [facility] denied patient returning to services as patient had been in SNF's in the past and re-admitted to [facility]. RN was informed liaison is not aware of S denying to take patient back on for services however advised this RN to contact main office. RN contacted [facility] at [phone] and spoke to intake who reports they [...] accept patient back into services. RN called [facility] [phone] to inquire on SOC date and to [...] and patient will need to go to [facility] lab on Monday to have INR rechecked (as we are unsure when patient will have VNA services). PCP requested RN call daughter to discuss coumadin plan and INR POC. RN called daughter [phone] in regards to coumadin dosing and INR [...] PCP prescription) Friday 07/20 Bring patient to [facility] lab on Saturday 07/21 RN will call [...] patient. Daughter reports she will come to [facility] for RN to show her which medication is the coumadin and for RN to explain above directions. * Telephone Encounter - Cassy Rollins RN - 07/16/2025 10:15 AM EST TC placed to [facility] [phone] who reports the patient is still currently at the facility however she is being discharged today. RN spoke to RN at rehab who reports patients last INR was on 07/14/25 and it was 1.3. RN was informed next INR check would have been on 07/21/25 per theirPOC. RN inquired if referral has been made to [facility] to re-establish VNA care however RN was not sure. RN reports she needed to check with the case mgr and would return call to [facility] with update. RN provided [facility] phone number incase it is needed. RN will await CB. * Telephone Encounter - Cassy Rollins RN - 07/09/2025 9:51 AM EST TC placed to [facility] [phone] to inquire if patient is still admitted to their facility. RN was informed patient remains at their facility with no potential discharge date as of yet.RN will postpone message x1 week to check on status of discharge from [facility]. * Telephone Encounter - Cassy Rollins RN - 07/03/2025 12:24 PM EST TC placed to [facility] [phone] to inquire if patient is present in their facility. RN was informed patient is currently at their facility with no potential discharge date as of yet. RN will postpone message x1 week to check on status of discharge from [facility]. * Telephone Encounter - Cassy Rollins RN - 07/02/2025 9:30 AM EST Patient has been admitted to [facility] since 06/26/25 and will be discharged today to [facility] for STR (no INR completed by VNA d/t hospitalization). RN will confirm patient was transferred to [facility] tomorrow. documented in this encounter Plan of Treatment Upcoming Encounters Date Type Department Care Team (Late st Contact Info) Description 08/05/2025 10:45 AM EST Office Visit [facility] [address] [place], [place] [phone] Ericka Sarmiento MD [address] [place], [place] [phone] documented as of this encounter Goals Goal [...] blood pressure task No Cassy Rollins, SHIRLEY Help patients manage their type [...] has chronic kidney disease No Cassy Rollins, SHIRLEY Patient has chronic [...] Plan Patient has chronic kidney disease No Roberto Mercadoquez Puja Weekly blood pressure task Care Plan Weekly blood pressure task No Cassy Rollins RN Weekly blood pressure task Care Plan Weekly blood pressure task No Cassy Rollins RN Patient has chronic kidney disease Care Plan Patient has chronic kidney disease No Cassy Rollins RN Patient has chronic kidney disease Care Plan Patient has chronic kidney disease No Cassy Rollnis RN Weekly blood pressure task Care Plan [...] chronic kidney disease No Miryam House, PharmD Patient has chronic kidney disease Care Plan Patient has chronic kidney disease No Miryam House, PharmD Weekly blood pressure task Care Plan Weekly blood pressure task No Valeri Renner ORGAN GRINDER Weekly blood pressure task Care Plan Weekly blood pressure task No Valeri Renner LPN Patient has chronic kidney disease Care Plan Patient has chronic kidney disease No Valeri Renner ORGAN GRINDER Patient has chronic kidney disease Care Plan [...] has chronic kidney disease No Tabitha Apodaca Patient has chronic kidney disease Care Plan Patient has chronic kidney disease No Tabitha Apodaca documented as of this encounter Procedures Procedure Name Priority Date/Time Associated Diagnosis Comments PROTHROMBIN TIME-INR Routine 07/21/2025 10:18 AM EST Paroxysmal atrial fibrillation (CMS/HCC) (HCC) documented in this encounter Results * (ABNORMAL) Prothrombin Time-INR (07/21/2025 10:18 AM EST) Prothrombin Time 33.9(H) 11.2 - 13.5 SEC [facility] INTERNATIONAL NORM RATIO 2.8(H) 0.9 - 1.1 [facility] Comment:INTERNATIONAL NORMAL IZED RATIO (INR) [...] DO LAB BLOOD ORDERABLES Final R esult [facility] [address] [place] [phone] documented in this encounter Visit Diagnoses Diagnosis [...] documented as of this encounter Care Teams Business Analysis Specialist Relationship Specialty Start Date End Date Valeri Lerner DO [address] [place] [id number] PCP - General Family Medicine 07/13/12 Twt[facility]ks 12/08/23 documented as of this encounter
== END 2025-07-21 09:51 | disposition home or self-care (01) ==
LOC: HO.LAB 09:50
PROVIDERS: PCP Family Medicine; Visit Provider Family Medicine
DX: I48.0 Paroxysmal atrial fibrillation (principal)
CPT/HCPCS: 36415; 85610

== ENCOUNTER → 2025-07-28 12:47 | Outpatient (BNV) | payer OTHER, SELFPAY | PROVIDERS: Emergency Provider Emergency Medicine; PCP Family Medicine; Visit Provider Radiology Diagnostic Radiology | DX: J81.0 Acute pulmonary edema (principal); I51.7 Cardiomegaly | CPT/HCPCS: 71046 ==

== ENCOUNTER → 2025-07-28 12:47 | Outpatient (BNV) | payer OTHER, SELFPAY | PROVIDERS: Emergency Provider Emergency Medicine; PCP Family Medicine; Visit Provider Internal Medicine | DX: I48.92 Unspecified atrial flutter (principal) | CPT/HCPCS: 93010 ==

== ENCOUNTER → 2025-07-28 20:26 | Outpatient (BNV) | payer OTHER, SELFPAY | PROVIDERS: Admitting Provider Physician Assistant; Emergency Provider Emergency Medicine; PCP Family Medicine; Visit Provider Internal Medicine | DX: G93.41 Metabolic encephalopathy (principal); J96.21 Acute and chronic respiratory failure with hypoxia; I50.23 Acute on chronic systolic (congestive) heart failure; N12 Tubulo-interstitial nephritis, not specified as acute or chronic; E66.812 Obesity, class 2; E03.9 Hypothyroidism, unspecified | CPT/HCPCS: 99223; 99232; 99233 ==

== ENCOUNTER → 2025-07-28 20:26 | Outpatient (BNV) | payer OTHER, SELFPAY | PROVIDERS: Admitting Provider Physician Assistant; Emergency Provider Emergency Medicine; PCP Family Medicine; Visit Provider Internal Medicine | DX: I48.92 Unspecified atrial flutter (principal); R00.1 Bradycardia, unspecified | CPT/HCPCS: 99223 ==

== ENCOUNTER → 2025-07-28 20:26 | Outpatient (BNV) | payer OTHER, SELFPAY | PROVIDERS: Admitting Provider Physician Assistant; Emergency Provider Emergency Medicine; PCP Family Medicine; Visit Provider Urology | DX: N39.0 Urinary tract infection, site not specified (principal); N12 Tubulo-interstitial nephritis, not specified as acute or chronic | CPT/HCPCS: 99222 ==